=== PATIENT | female | born 1945 | race Caucasian/White ===

== ENCOUNTER → 2017-07-02 16:53 | Outpatient (CLI) | payer MEDICARE, OTHER, SELFPAY ==
[2016-07-05 14:05] VITALS: BMI 27.1
--- NOTE | 2017-07-02 17:00 | CT_ITS ---
STUDY: CT BRAIN WITHOUT CONTRAST REASON FOR EXAM: Female, 72 years old. Fall with head injury RADIATION DOSAGE (If Supplied By Facility): CTDIvol = ( 60.81 ) mGy, DLP = ( 1495.61 ) mGycm TECHNIQUE: Transaxial CT imaging of the brain was performed without administration of intravenous contrast material. Individualized dose optimization techniques were used for this CT. COMPARISON: None. FINDINGS: Normal soft tissue structures. Normal calvarium. There is mild cerebral atrophy with widening of the extra-axial spaces and ventricular dilatation. There are areas of decreased attenuation within the white matter tracts of the supratentorial brain, consistent with microvascular disease changes. Normal basal ganglia and thalami. Normal brainstem. There is mild cerebellar atrophy. There is no intracranial hemorrhage. There are no findings of an acute ischemic infarction. Normal visualized paranasal sinuses. CT/Brain/Head without Contrast IMPRESSION: Chronic involutional changes of the brain. Electronically Signed: Jason Danielle DO at 17:43 EST Tel , Service support ,
== END ==
PROVIDERS: Family Provider Nurse Practitioner; PCP Nurse Practitioner; Visit Provider Internal Medicine Nephrology
DX: R51 Headache (principal)
CPT/HCPCS: 70450

== ENCOUNTER 2017-07-14 08:29 | Inpatient (IN) | payer MEDICARE, OTHER, SELFPAY ==
[2016-07-05 14:05] VITALS: BMI 27.1
[2017-07-14] VITALS (10 sets, daily range): BP systolic 136–192; BP diastolic 72–90; PULSE 67–104; RESP 14–24; TEMP 36.5–36.6; O2SAT 95–99; BMI 31.2; BMI 29.0; BMI 29.1
--- NOTE | 2017-07-14 08:38 | ED.VISSUMM ---
- ER Visit Summary Date of Service: 07/14/17 Chief Complaint: Fall History of Present Illness: The patient is a 72 F presenting after fall. Patient states she was walking into dialysis and slipped in the parking lot. She twisted her ankle. She was unable to get up but the nurses came out and put her in a wheelchair. She completed approximately 45 minutes of dialysis and was unable to tolerate the pain in the right lower extremity. She was then brought to the ED for further evaluation. She denies hitting her head or losing consciousness. Denies other injury. Physical Examination: Vitals are stable. Patient is afebrile. Alert no acute distress. HEENT exam is unremarkable. Neck is nontender Lungs are clear and equal bilaterally. Heart is regular rate and rhythm. Abdomen is soft nontender nondistended. Extremities right ankle and knee diffuse tenderness, painful range of motion. No hip tenderness. Normal distal pulse Skin is warm and dry. Remainder of exam is unremarkable. Emergency Department Course and Treatment: Patient was given morphine, Zofran. Xray of the right ankle and knee show no acute fracture. X-ray of the right foot shows 5th metatarsal fracture. Ortho-Glass splint was applied. CBC shows a white count of 3.8, hemoglobin 10.7, platelets 109. Chemistries show sodium 130, potassium 3.3, BUN 25, creatinine 3.67, glucose 153. She is unable to get around and care for herself at home. Discussed with the hospitalist for admission. Disposition: Admission Impression: 5th metatarsal fracture, inability to ambulate This note was generated with [employer] dictation software. It may contain incorrect words, spelling, and punctuation that were not noted in review of the chart prior to signing ED Disposition - Plan for ED Patient: Chief Complaint: Fall Referrals: Robyn Sharma [Primary Care Provider] -
[2017-07-14] MEDS: Ondansetron 4 MG/2 ML Vial IV (09:12)
--- NOTE | 2017-07-14 09:24 | RAD_ITS ---
STUDY: X-RAY - RIGHT ANKLE REASON FOR EXAM: Female, 72 years old. PAIN S/P FALL. TECHNIQUE: 3 views view(s) of the ankle. COMPARISON: None. FINDINGS: There is osteopenia. Normal medial and lateral malleoli. Normal tibiotalar articulation and ankle mortise. Normal visualized talus and calcaneus. The visualized subtalar, talonavicular, calcaneocuboid and tarsal articulations are normal. There are atherosclerotic calcifications. RAD/Ankle min 3 Views IMPRESSION: No fracture or dislocation. Osteopenia. Electronically Signed: Migel Gilliam MD at 10:02 EST Tel , Service support ,
--- NOTE | 2017-07-14 09:24 | RAD_ITS ---
STUDY: X-RAY - RIGHT FOOT CLINICAL: Female, 72 years old. PAIN S/P FALL. TECHNIQUE: 3 view(s) of the foot. COMPARISON: None. FINDINGS: There is osteopenia. There is a lucency involving the fifth metatarsal 1.4 cm from the base tip. There is degenerative changes of the midfoot. There is fusions and deformity of the metatarsal and distal phalanx. There is atherosclerotic calcifications. RAD/Foot min 3 Views IMPRESSION: Fifth metatarsal fracture Forefoot deformity. Electronically Signed: Migel Gilliam MD at 10:04 EST Tel , Service support ,
--- NOTE | 2017-07-14 09:30 | RAD_ITS ---
STUDY: X-RAY - RIGHT KNEE REASON FOR EXAM: Female, 72 years old. PAIN S/P FALL. TECHNIQUE: 4 view(s) of the knee. COMPARISON: None. FINDINGS: There is a total knee replacement in satisfactory position. There is no evidence of acute fracture or dislocation. There is atherosclerotic vascular calcifications. RAD/Knee 4 or More Views IMPRESSION: No acute fracture or dislocation Electronically Signed: Migel Gilliam MD at 10:05 EST Tel , Service support ,
[2017-07-14 10:42] LABS: Absolute Lymphocyte Count 1.12 X10^3/ul (0.83-4.51); Absolute Neutrophil Count 2.2 X10^3/uL (2.0-7.7); Basophil# 0.04 X10^3/uL; Basophil% 1.1 % (0-1); Eosinophil# 0.11 X10^3/uL; Eosinophils% 2.9 % (0-5); Hematocrit 33.5 % (37-47); Hemoglobin 10.7 g/dl (12.0-15.0); Lymphocyte # 1.12 X10^3/ul (4.0); Lymphocyte % 29.6 % (19-41); Mean Corp Hgb Conc 31.9 g/gl (32-36); Mean Corpuscular Hgb 29.3 pg (27.0-32.0); Mean Corpuscular Volume 91.8 fL (81-99); Mean Platelet Vol. 9.2 fl (6.2-12.0); Monocyte# 0.28 X10^3/uL; Monocyte% 7.4 % (0-10); Neutrophil # 2.24 X10^3/uL (2.7-7.7); Platelet Count 109 K/mm3 (150-450); RBC Distribution Width CV 15.4 % (11.6-14.6); RBC Distribution Width SD 50.1 fl (35.1-43.9); Red Blood Count 3.65 M/mm3 (4.2-5.4); White Blood Count 3.8 K/mm3 (4.4-11.0)
[2017-07-14 10:43] LABS: POSITIVE COUNT NO; POSITIVE DIFFERENTIAL NO; POSITIVE MORPHOLOGY NO
[2017-07-14 10:58] LABS: Anion Gap 9 (5-15); BUN 25 mg/dL (7-18); BUN/Creat Ratio 6.8 RATIO (10-20); Calcium,Total 8.6 mg/dL (8.5-10.1); Chloride 93 mmol/L (98-107); Creatinine, Serum 3.67 mg/dL (0.55-1.02); EST Glomerular Filtration Rate 13 mL/min (>60); Est Glom Filt Rate - Afr Amer 16 mL/min (>60); Glucose 153 mg/dL (74-106); Potassium 3.3 mmol/L (3.5-5.1); Sodium Level 130 mmol/L (136-145)
--- NOTE | 2017-07-14 11:36 | NURSING ---
DR ELIDA SMITH
--- NOTE | 2017-07-14 11:57 | NURSING ---
DR ALVAREZ IN ROOM WITH PATIENT
--- NOTE | 2017-07-14 12:01 | NURSING ---
DR MARRERO IN ER
--- NOTE | 2017-07-14 12:34 | CON.PCM_ITS ---
Problem List (1) Fracture of fifth metatarsal bone of right foot Status: Acute (2) Fall Status: Acute (3) Gait instability Status: Acute (4) Other specified peripheral vascular diseases Status: Chronic Reason for Consult Date of Consultation: 07/14/17 Reason for Consultation: foot and ankle pain History of Present Illness: The patient is a 72 year old F with multiple comorbidities was seen at [facility] for a full she sustained while at dialysis this morning. She tripped over raised piece of the sidewalk. She denies hearing a pop. Her pain is moderate and is aggravated with foot or ankle motion. She also complains of right knee pain s/p fall. She denies other injuries or loss of consciousness. She is unable to bear weight and has been splinted upon arrival to the emergency room. She does not feel safe ambulating with crutches. She already has a walker at home however is not sure how to use this device. She does live with her spouse but he is not able to assist her with ambulation or help at this time due to other conditions. Per chart review, she had a previous fall this past month with hospital workup. Past Medical History Past Medical History (Chronic Problems): Chronic Problems Other specified peripheral vascular diseases (Chronic) Congenital coronary artery anomaly (Chronic) S/P PTCA (percutaneous transluminal coronary angioplasty) (Chronic) Bradycardia (Chronic) CAD (coronary artery disease) (Chronic) Diabetes mellitus, type II (Chronic) Hyperlipidemia (Chronic) Hypothyroidism (Chronic) Anemia in chronic kidney disease (Chronic) Hypertension (Chronic) End stage renal disease on dialysis (Chronic) Allergies lisinopril Allergy (Verified 07/14/17 08:30) Swelling nebivolol HCl [From Bystolic] Adverse Reaction (Verified 07/14/17 08:30) Other BRADYCARDIA Home Medications: Ambulatory Orders Medication Instructions Recorded Aspirin [Aspirin, Baby] 81 mg PO DAILY@0800 02/24/14 Hydralazine HCl 100 mg PO TID 02/24/14 Insulin Lispro Protamin/Lispro See Protocol SQ BID 02/24/14 [Humalog Mix 50-50 Vial] Atorvastatin Calcium [Lipitor] 40 mg PO QHS #30 tablet 03/03/14 Folic Acid/Vitamin B Comp W-C 1 capsule PO DAILYCM #30 capsule 03/03/14 [Nephrocaps, Renaphro] Pantoprazole Sodium [Protonix] 40 mg PO DAILY #30 tablet 03/03/14 Docusate Sodium [Colace] 200 mg PO DAILY PRN PRN 09/08/14 Losartan Potassium [Cozaar] 50 mg PO BID 09/08/14 Promethazine HCl 25 mg PO 4X/DAY PRN PRN 09/08/14 B Complex W-C No.20/Folic Acid 1 mg PO DAILY 04/30/15 [Triphrocaps Softgel] Calcium Acetate [Phoslo Gel Cap] 1,334 mg PO TIDCM 04/30/15 Cholecalciferol (Vitamin D3) 5,000 unit PO MOWEFR 04/30/15 [Vitamin D3] Isosorbide Mononitrate [Imdur] 60 mg PO BID 04/30/15 Oxycodone HCl/Acetaminophen 2 tablet PO Q6H PRN PRN 04/30/15 [Percocet 5-325] Cyclobenzaprine HCl 5 mg PO BID PRN PRN 12/14/15 Insulin Detemir [Levemir FlexPen] 22 units SC QHS 12/14/15 Gabapentin [Neurontin] 100 mg PO BIDCM 12/20/15 Gabapentin [Neurontin] 200 mg PO QHS 12/20/15 Clonidine HCl [Catapres] 0.1 mg PO BID #120 tablet 12/21/15 Clopidogrel Bisulfate [Plavix] 75 mg PO DAILY 07/05/16 Docusate Sodium [Colace] 100 mg PO DAILY #20 capsule 04/06/17 Oxycodone HCl/Acetaminophen 1 tablet PO Q6H PRN PRN #20 tablet 04/06/17 [Percocet 5/325] diltiazem CD 120 mg 120 mg PO QDAY 04/27/17 capsule,extended release 24 hr doxazosin 8 mg tablet 8 mg PO QHS tab 04/27/17 carvedilol 6.25 mg tablet 12.5 mg PO BID tab 05/01/17 Ropinirole HCl [Requip] 0.25 mg PO 07/14/17 Sevelamer Carbonate 800 mg PO 07/14/17 Surgical History: angioplasty, hysterectomy, total knee arthroplasty, - - cardiac stents, AVF Lives: Spouse/ Significant Other Smoking Status: Former smoker Tobacco Use: Non-smoker Alcohol: None Drugs: None - *Family History Maternal History Items: Cancer - uterine, No pertinent history Paternal History Items: Cancer, No pertinent history Sibling History Items: Diabetes Review of Systems Constitutional: Reports: Weakness. Denies: Chills, Fever Cardiovascular: Reports: Claudication. Denies: Chest Pain Respiratory: Denies: Shortness of Breath Gastrointestinal: Denies: Nausea Musculoskeletal: Reports: Foot Pain, Leg Pain Skin: Denies: Skin Changes, Wounds Neurological: Reports: Balance problems, Incoordination Hematologic/ Lymphatic: Reports: Anemia, Easy Bruising Patient Problems: Active and Suspected Problems Fracture of fifth metatarsal bone of right foot (Acute) Fall (Acute) Gait instability (Acute) - Physical Exam General: Alert, Oriented x3, Cooperative HEENT: Atraumatic Extremities: No cyanosis, Capillary Refill Less than 3 Seconds - all digits bilateral foot, No Calf Tenderness - negative matthews bilateral, Diminished Peripheral Pulses - non palpable dp and pt pulses bilateral, Edema - lateral ankle and foot Skin: - - intact. no fracture blister or ecchymosis at fifth metatarsal fractures site Musculoskeletal: Muscle Wasting, - - AROM digits bilateral foot. palpation pain to fifth metatarsal fracture site, dorsal lateral midfoot, and lateral ankle ligaments. There is no pain to medial malleolus or to proximal fibula. no pain with heel compression Neurological: Sensory exam intact to light touch and pain Psych/Mental Status: Normal Affect, Appropriate Vital Signs Temp Pulse Resp BP Pulse Ox 97.7 F L 95 14 170/90 H 99 07/14/17 11:13 07/14/17 12:12 07/14/17 12:12 07/14/17 12:12 07/14/17 12:12 Oxygen Delivery Method Room Air Weight: 85.2 kg Body Mass Index (BMI) 31.2 Laboratory Tests Past 24 Hrs 07/14/17 07/14/17 10:38 10:38 WBC 3.8 L RBC 3.65 L Hgb 10.7 L Hct 33.5 L MCV 91.8 MCH 29.3 MCHC 31.9 L RDW 15.4 H RDW Differential 50.1 H Plt Count 109 L MPV 9.2 Immature Gran % (Auto) 0.000 Neut % (Auto) 59.0 Lymph % (Auto) 29.6 Gregory % (Auto) 7.4 Eos % (Auto) 2.9 Baso % (Auto) 1.1 H Absolute Neuts (auto) 2.2 Absolute Lymphs (auto) 1.12 Total Counted Not Reportable Sodium 130 L Potassium 3.3 L Chloride 93 L Carbon Dioxide 28.0 Anion Gap 9 BUN 25 H Creatinine 3.67 H Estim Creat Clear Calc 12.10 Est GFR (MDRD) Af Amer 16 L Est GFR (MDRD) Non-Af 13 L BUN/Creatinine Ratio 6.8 L Glucose 153 H Calcium 8.6 Assessment/Plan Active and Suspected Problems Fracture of fifth metatarsal bone of right foot (Acute) Fall (Acute) Gait instability (Acute) non displaced proximal diaphysis fifth metatarsal fracture right foot s/p fall and gait instability with continued fall risk peripheral vascular disease ankle sprain foot congenital anomaly with further decreased bone density rule out vitamin D deficiency Deconditioned I reviewed and discussed the case with the patient. Her diagnostic data was reviewed including CBC and BMP. I recommend screening her for a vitamin D deficiency and supplementation if this is low to optimize fracture healing. Her foot (3 views) and ankle (3 views) radiographs were reviewed with a non displaced proximal diaphyseal metaphyseal cortical interruption that appears to be incomplete and without significant gapping. There are no other fractures or dislocations noted. There is some narrowing of the ankle joint and the mortise is still intact. She has a tarsal midfoot and forefoot coalitions consistent with her previously diagnosed congenital anomaly. This is unchanged compared to her previous foot xrays obtained in the outpatient setting. Her vessel calcifications are noted and decreased bone density. Her non invasive vascular studies from 2016 were reviewed with non compressible vessels. She does not have any evidence of critical limb ischemia, and I recommend further lower extremity vascular work up in the outpatient setting. In regards to her new fall and fracture, I recommend conservative treatment of this condition with partial touch down weightbearing in CAM walker boot to right lower extremity with walker assistance. She will be admitted for observation and gait training prior to discharge back home versus rehabilitation placement pending PT/OT sessions. Her history of other recent falls and injuries are noted and are a concern. [facility]. The anticipated healing time and management of fractures and ankle sprains were discussed in detail. I answered her questions. I will continue to follow her while in house. Please do not hesitate to call if you have any questions. Thanks for the consult. Dona Mckeon, [facility] [phone]
--- NOTE | 2017-07-14 12:36 | NURSING ---
[address] 5TH METATARSAL FX
--- NOTE | 2017-07-14 15:41 | PCM.CONS.R ---
Consultation - Renal PCP/ Referring MD: Requesting physician: [] Primary care physician: Robyn Sharma Reason for Consultation:: ESRD hemodialysis Sunday. - History of Present Illness History of Present Illness: The patient is a 72 year old F with ESRD due to diabetes admitted for fall landing on uneven pavement at the dialysis center. She fractured fifth metatarsal on the right foot. Dietary was consulted. She had 45 minutes of IUF with 2 L fluid removed prior to admission. She was unable to stay for her full treatment due to severe pain in her foot. Consulted for hemodialysis. She is set up for her full treatment today. Medications reviewed with nursing staff. She denied any syncope, chest pain, lightheadedness. She has high fluid gains chronically. She has lower extremity edema. - Allergies Allergies: Allergies lisinopril Allergy (Verified 07/14/17 08:30) Swelling nebivolol HCl [From Bystolic] Adverse Reaction (Verified 07/14/17 08:30) Other BRADYCARDIA - Current Medications Current Medications: Current Medications Aspirin (Aspirin, Baby) 81 mg PO DAILY@0800 [facility] Atorvastatin Calcium (Lipitor) 40 mg PO QHS [facility] Calcium Acetate (Phoslo Gel Cap) 1,334 mg PO TIDCM [facility] Carvedilol (Coreg) 12.5 mg PO BID [facility] Clonidine (Catapres) 0.1 mg PO BID [facility] Clopidogrel Bisulfate (Plavix) 75 mg PO DAILY [facility] Cyclobenzaprine HCl (Cyclobenzaprine Hcl) 5 mg PO BID PRN PRN PRN Reason: MUSCLE SPASM Diltiazem HCl (Cardizem Cd) 120 mg PO DAILY [facility] Docusate Sodium (Colace) 100 mg PO DAILY [facility] Doxazosin Mesylate (Cardura) 8 mg PO QHS [facility] Gabapentin (Neurontin) 100 mg PO BIDCM [facility] Gabapentin (Neurontin) 200 mg PO QHS [facility] Heparin Sodium (Porcine) () 5,000 units SC Q8 [facility] Hydralazine HCl (Apresoline) 100 mg PO TID [facility] Insulin Aspart (Novolog Flexpen (Bkc)) 0 units SC ACHS [facility] PRN Reason: Protocol Insulin Aspart (Novolog Flexpen (Bkc)) 10 units SC TIDAC [facility] Insulin Detemir (Levemir (Bkc)) 22 units SC QHS [facility] Isosorbide Mononitrate (Imdur) 60 mg PO BID [facility] Losartan Potassium (Cozaar) 50 mg PO BID [facility] Morphine Sulfate (Morphine) 2 - 4 mg IV Q4H PRN PRN PRN Reason: MOD-SEVERE PAIN (-02/27) Multivit/Ca Carb/B Cmplx/FA/Prenat (Nephrocaps, Renaphro) [facility] Nutritional Formula (Nepro Carb Steady) 120 ml PO 4X/DAY [facility] Ondansetron HCl (Zofran) 4 mg IV Q8H PRN PRN PRN Reason: NAUSEA Oxycodone HCl (Oxyir) 5 - 10 mg PO Q4H PRN PRN PRN Reason: SEVERE PAIN (-02/27) Pantoprazole Sodium (Protonix) 40 mg PO DAILY [facility] Promethazine HCl (Phenergan) 25 mg PO 4X/DAY PRN PRN PRN Reason: NAUSEA - Past Medical History Past Medical History (Chronic Problems): Chronic Problems Other specified peripheral vascular diseases (Chronic) Congenital coronary artery anomaly (Chronic) S/P PTCA (percutaneous transluminal coronary angioplasty) (Chronic) Bradycardia (Chronic) CAD (coronary artery disease) (Chronic) Diabetes mellitus, type II (Chronic) Hyperlipidemia (Chronic) Hypothyroidism (Chronic) Anemia in chronic kidney disease (Chronic) Hypertension (Chronic) End stage renal disease on dialysis (Chronic) - Past Surgical History Surgical History: angioplasty, hysterectomy, total knee arthroplasty, - - cardiac stents, AVF - Social History Smoking Status: Former smoker Alcohol: None Drugs: None - Family History Maternal History Items: Cancer - uterine, No pertinent history Paternal History Items: Cancer, No pertinent history Sibling History Items: Diabetes Review of Systems Constitutional: Denies: Anorexia, Chills, Fever, Weakness, Fatigue Cardiovascular: Reports: Edema. Denies: Chest Pain Respiratory: Denies: Cough Gastrointestinal: Denies: Nausea, Vomiting Musculoskeletal: Reports: Foot Pain - Knee pain on right status post fall fracture fifth metatarsal Neurological: Reports: Balance problems - Tripped on uneven pavement Psychiatric: Reports: Anxiety, Depression Hematologic/ Lymphatic: Reports: Anemia Patient Problems: Active and Suspected Problems Fracture of fifth metatarsal bone of right foot (Acute) Fall (Acute) Gait instability (Acute) - Physical Exam General: Alert, Oriented x3, Cooperative, No apparent distress HEENT: PERRLA, EOMI Oral: Moist Mucosa Neck: Supple Lungs: Clear to auscultation Cardiovascular: Regular rate Abdomen: Bowel Sounds Present, Soft, Non Tender, Non-Distended Extremities: Edema, - - Right foot brace Musculoskeletal: No Muscle Wasting, - - Left upper arm AV fistula Neurological: Cranial nerves II-XII grossly intact Psych/Mental Status: Normal Affect, Alert and oriented to time, place, person, mood and affect Vital Signs Temp Pulse Resp BP Pulse Ox 97.7 F L 95 14 170/90 H 99 07/14/17 11:13 07/14/17 12:12 07/14/17 12:12 07/14/17 12:12 07/14/17 12:12 Oxygen Delivery Method Room Air Weight: 79.152 kg Body Mass Index (BMI) 29.0 Clinical Impression(s) from Imaging Studies Ankle X-Ray 07/14/17 09:24 IMPRESSION: No fracture or dislocation. Osteopenia. Electronically Signed: Migel Gilliam MD at 10:02 EST Tel , Service support , Foot X-Ray 07/14/17 09:24 IMPRESSION: Fifth metatarsal fracture Forefoot deformity. Electronically Signed: Migel Gilliam MD at 10:04 EST Tel , Service support , Knee X-Ray 07/14/17 09:30 IMPRESSION: No acute fracture or dislocation Electronically Signed: Migel Gilliam MD at 10:05 EST Tel , Service support , Assessment/Plan Active and Suspected Problems Fracture of fifth metatarsal bone of right foot (Acute) Fall (Acute) Gait instability (Acute) 1. ESRD hemodialysis today for missed treatment Sunday. Dialysis Sunday chronic scheduled. Initiate hemodialysis now. Had 2L removed over 45 minutes 2. Hypertension reviewed blood pressure medications with nursing staff. 3. Status post mechanical fall with fifth metatarsal fracture. Podiatry consulted. 4. Secondary hyperparathyroidism on binders 5. Hyperphosphatemia patient on Renvela home.
--- NOTE | 2017-07-14 15:47 | CON.PCM_ITS ---
Consultation - Renal PCP/ Referring MD: Requesting physician: [] Primary care physician: Robyn Sharma Reason for Consultation:: ESRD hemodialysis Sunday. - History of Present Illness History of Present Illness: The patient is a 72 year old F with ESRD due to diabetes admitted for fall landing on uneven pavement at the dialysis center. She fractured fifth metatarsal on the right foot. Dietary was consulted. She had 45 minutes of IUF with 2 L fluid removed prior to admission. She was unable to stay for her full treatment due to severe pain in her foot. Consulted for hemodialysis. She is set up for her full treatment today. Medications reviewed with nursing staff. She denied any syncope, chest pain, lightheadedness. She has high fluid gains chronically. She has lower extremity edema. - Allergies Allergies: Allergies lisinopril Allergy (Verified 07/14/17 08:30) Swelling nebivolol HCl [From Bystolic] Adverse Reaction (Verified 07/14/17 08:30) Other BRADYCARDIA - Current Medications Current Medications: Current Medications Aspirin (Aspirin, Baby) 81 mg PO DAILY@0800 [facility] Atorvastatin Calcium (Lipitor) 40 mg PO QHS [facility] Calcium Acetate (Phoslo Gel Cap) 1,334 mg PO TIDCM [facility] Carvedilol (Coreg) 12.5 mg PO BID [facility] Clonidine (Catapres) 0.1 mg PO BID [facility] Clopidogrel Bisulfate (Plavix) 75 mg PO DAILY [facility] Cyclobenzaprine HCl (Cyclobenzaprine Hcl) 5 mg PO BID PRN PRN PRN Reason: MUSCLE SPASM Diltiazem HCl (Cardizem Cd) 120 mg PO DAILY [facility] Docusate Sodium (Colace) 100 mg PO DAILY [facility] Doxazosin Mesylate (Cardura) 8 mg PO QHS [facility] Gabapentin (Neurontin) 100 mg PO BIDCM [facility] Gabapentin (Neurontin) 200 mg PO QHS [facility] Heparin Sodium (Porcine) () 5,000 units SC Q8 [facility] Hydralazine HCl (Apresoline) 100 mg PO TID [facility] Insulin Aspart (Novolog Flexpen (Bkc)) 0 units SC ACHS [facility] PRN Reason: Protocol Insulin Aspart (Novolog Flexpen (Bkc)) 10 units SC TIDAC [facility] Insulin Detemir (Levemir (Bkc)) 22 units SC QHS [facility] Isosorbide Mononitrate (Imdur) 60 mg PO BID [facility] Losartan Potassium (Cozaar) 50 mg PO BID [facility] Morphine Sulfate (Morphine) 2 - 4 mg IV Q4H PRN PRN PRN Reason: MOD-SEVERE PAIN (-02/27) Multivit/Ca Carb/B Cmplx/FA/Prenat (Nephrocaps, [facility]) [facility] Nutritional Formula (Nepro Carb Steady) 120 ml PO 4X/DAY [facility] Ondansetron HCl (Zofran) 4 mg IV Q8H PRN PRN PRN Reason: NAUSEA Oxycodone HCl (Oxyir) 5 - 10 mg PO Q4H PRN PRN PRN Reason: SEVERE PAIN (-02/27) Pantoprazole Sodium (Protonix) 40 mg PO DAILY [facility] Promethazine HCl (Phenergan) 25 mg PO 4X/DAY PRN PRN PRN Reason: NAUSEA - Past Medical History Past Medical History (Chronic Problems): Chronic Problems Other specified peripheral vascular diseases (Chronic) Congenital coronary artery anomaly (Chronic) S/P PTCA (percutaneous transluminal coronary angioplasty) (Chronic) Bradycardia (Chronic) CAD (coronary artery disease) (Chronic) Diabetes mellitus, type II (Chronic) Hyperlipidemia (Chronic) Hypothyroidism (Chronic) Anemia in chronic kidney disease (Chronic) Hypertension (Chronic) End stage renal disease on dialysis (Chronic) - Past Surgical History Surgical History: angioplasty, hysterectomy, total knee arthroplasty, - - cardiac stents, AVF - Social History Smoking Status: Former smoker Alcohol: None Drugs: None - Family History Maternal History Items: Cancer - uterine, No pertinent history Paternal History Items: Cancer, No pertinent history Sibling History Items: Diabetes Review of Systems Constitutional: Denies: Anorexia, Chills, Fever, Weakness, Fatigue Cardiovascular: Reports: Edema. Denies: Chest Pain Respiratory: Denies: Cough Gastrointestinal: Denies: Nausea, Vomiting Musculoskeletal: Reports: Foot Pain - Knee pain on right status post fall fracture fifth metatarsal Neurological: Reports: Balance problems - Tripped on uneven pavement Psychiatric: Reports: Anxiety, Depression Hematologic/ Lymphatic: Reports: Anemia Patient Problems: Active and Suspected Problems Fracture of fifth metatarsal bone of right foot (Acute) Fall (Acute) Gait instability (Acute) - Physical Exam General: Alert, Oriented x3, Cooperative, No apparent distress HEENT: PERRLA, EOMI Oral: Moist Mucosa Neck: Supple Lungs: Clear to auscultation Cardiovascular: Regular rate Abdomen: Bowel Sounds Present, Soft, Non Tender, Non-Distended Extremities: Edema, - - Right foot brace Musculoskeletal: No Muscle Wasting, - - Left upper arm AV fistula Neurological: Cranial nerves II-XII grossly intact Psych/Mental Status: Normal Affect, Alert and oriented to time, place, person, mood and affect Vital Signs Temp Pulse Resp BP Pulse Ox 97.7 F L 95 14 170/90 H 99 07/14/17 11:13 07/14/17 12:12 07/14/17 12:12 07/14/17 12:12 07/14/17 12:12 Oxygen Delivery Method Room Air Weight: 79.152 kg Body Mass Index (BMI) 29.0 Clinical Impression(s) from Imaging Studies Ankle X-Ray 07/14/17 09:24 IMPRESSION: No fracture or dislocation. Osteopenia. Electronically Signed: Migel Gilliam MD at 10:02 EST Tel , Service support , Foot X-Ray 07/14/17 09:24 IMPRESSION: Fifth metatarsal fracture Forefoot deformity. Electronically Signed: Migel Gilliam MD at 10:04 EST Tel , Service support , Knee X-Ray 07/14/17 09:30 IMPRESSION: No acute fracture or dislocation Electronically Signed: Migel Gilliam MD at 10:05 EST Tel , Service support , Assessment/Plan Active and Suspected Problems Fracture of fifth metatarsal bone of right foot (Acute) Fall (Acute) Gait instability (Acute) 1. ESRD hemodialysis today for missed treatment Sunday. Dialysis Sunday chronic scheduled. Initiate hemodialysis now. Had 2L removed over 45 minutes 2. Hypertension reviewed blood pressure medications with nursing staff. 3. Status post mechanical fall with fifth metatarsal fracture. Podiatry consulted. 4. Secondary hyperparathyroidism on binders 5. Hyperphosphatemia patient on [facility] home.
[2017-07-14 15:51] LABS: Bedside Glucose 132 mg/dL (70-110)
--- NOTE | 2017-07-14 16:27 | HP.PCM_ITS ---
Problem List (1) Pain in right ankle and joints of right foot Status: Acute History of Present Illness Date of Admission: 07/14/17 Chief Complaint: Right ankle and foot pain The patient is a 72 year old F was seen in the emergency room at [facility] for evaluation of right ankle and foot pain which occurred after she fell at dialysis today. Patient tried to go through dialysis but was only able to tolerate 45 minutes of dialysis due to her right ankle and foot pain. Evaluation in the emergency room included x-rays which showed a right fifth metatarsal fracture at its base which is nondisplaced her foot x-ray, patient's right knee x-ray was unremarkable, patient's right ankle x-ray showed osteopenia. Labs were obtained which showed a sodium of 130, potassium 3.3, creatinine 3.67, BUN of 25, glucose 153, and hemoglobin 10.7. Posterior splint was applied to the right lower leg, patient was unable to ambulate however and was still having significant pain even after administration of narcotics. On examination, patient's right ankle was not swollen but was tender to palpation, patient had tenderness over the lateral aspect of the right foot. Due to the fact the patient felt uncomfortable going home and was not able to ambulate, patient will be placed in observation status on [facility] 2, she will be seen by nephrology, she was seen by from podiatry in the emergency room and evaluated, Dr. Mckeon he did not feel the patient required surgery. Past Medical History Past Medical History (Chronic Problems): Chronic Problems Other specified peripheral vascular diseases (Chronic) Congenital coronary artery anomaly (Chronic) S/P PTCA (percutaneous transluminal coronary angioplasty) (Chronic) Bradycardia (Chronic) CAD (coronary artery disease) (Chronic) Diabetes mellitus, type II (Chronic) Hyperlipidemia (Chronic) Hypothyroidism (Chronic) Anemia in chronic kidney disease (Chronic) Hypertension (Chronic) End stage renal disease on dialysis (Chronic) Allergies lisinopril Allergy (Verified 07/14/17 08:30) Swelling nebivolol HCl [From Bystolic] Adverse Reaction (Verified 07/14/17 08:30) Other BRADYCARDIA Home Medications: Ambulatory Orders Medication Instructions Recorded Aspirin [Aspirin, Baby] 81 mg PO DAILY@0800 02/24/14 Hydralazine HCl 100 mg PO TID 02/24/14 Insulin Lispro Protamin/Lispro See Protocol SQ BID 10/07/14 [Humalog Mix 50-50 Vial] Atorvastatin Calcium [Lipitor] 40 mg PO QHS #30 tablet 03/03/14 Folic Acid/Vitamin B Comp W-C 1 capsule PO DAILYCM #30 capsule 03/03/14 [Nephrocaps, Renaphro] Pantoprazole Sodium [Protonix] 40 mg PO DAILY #30 tablet 03/03/14 Docusate Sodium [Colace] 200 mg PO DAILY PRN PRN 09/08/14 Losartan Potassium [Cozaar] 50 mg PO BID 09/08/14 Promethazine HCl 25 mg PO 4X/DAY PRN PRN 09/08/14 B Complex W-C No.20/Folic Acid 1 mg PO DAILY 04/30/15 [Triphrocaps Softgel] Cholecalciferol (Vitamin D3) 5,000 unit PO MOWEFR 04/30/15 [Vitamin D3] Isosorbide Mononitrate [Imdur] 60 mg PO BID 04/30/15 Oxycodone HCl/Acetaminophen 2 tablet PO Q6H PRN PRN 04/30/15 [Percocet 5-325] Cyclobenzaprine HCl 5 mg PO BID PRN PRN 12/14/15 Insulin Detemir [Levemir FlexPen] 22 units SC QHS 12/14/15 Gabapentin [Neurontin] 100 mg PO BIDCM 12/20/15 Gabapentin [Neurontin] 200 mg PO QHS 12/20/15 Clopidogrel Bisulfate [Plavix] 75 mg PO DAILY 07/05/16 Oxycodone HCl/Acetaminophen 1 tablet PO Q6H PRN PRN #20 tablet 04/06/17 [Percocet 5/325] doxazosin 8 mg tablet 8 mg PO QHS tab 04/27/17 carvedilol 6.25 mg tablet 12.5 mg PO BID tab 05/01/17 Clonidine HCl [Clonidine HCl] 0.1 mg PO TID 07/14/17 Diltiazem HCl [Cartia Xt] 120 mg PO DAILY 07/14/17 Ropinirole HCl [Requip] 0.25 mg PO QHS 07/14/17 Sevelamer Carbonate 800 mg PO TIDCM 07/14/17 Surgical History: angioplasty, hysterectomy, total knee arthroplasty, - - cardiac stents, AVF Psychiatric History: No pertinent psych hx [employer]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[employer] History: No pertinent [employer] history Lives: Spouse/ Significant Other Smoking Status: Former smoker Tobacco Use: Non-smoker Alcohol: None Drugs: None - *Family History Maternal History Items: Cancer - uterine, No pertinent history Paternal History Items: Cancer, No pertinent history Sibling History Items: Diabetes Review of Systems Constitutional: Denies: Anorexia, Chills, Fever, Night Sweats, Malaise, Weakness , Weight Change, Fatigue Eyes: Denies: Blurred vision, Cataracts, Conjunctivae Inflammation, Double vision, Drainage HEENT: Denies: Difficulty Swallowing, Dysphasia, Ear Pain, Eye Pain, Hearing Changes, Nasal bleeding, Nasal Congestion, Post Nasal Drip Cardiovascular: Denies: Chest Pain, Claudication, Chest Pressure, Chest Tightness, Edema, Heaviness, Light Headedness, Orthopnea, Palpitations Respiratory: Denies: Cough, Hemoptysis, Pleuritic Pain, Shortness of Breath, Shortness of breath at rest, Shortness of breath upon exertion, Sputum production Gastrointestinal: Denies: Abdominal Pain, Constipation, Diarrhea, Hematemesis, Hematochezia, Nausea, Melena, Vomiting Genitourinary: Denies: Dysuria, Frequency, Hematuria, Hesitancy, Urgency Gynecological: Denies: Breast symptoms Musculoskeletal: Reports: Foot Pain - right foot, Joint Pain - ankle, knee, Joint Tenderness - ankle. Denies: Joint stiffness, Joint swelling Skin: Denies: Dryness, Pruritis, Rash Neurological: Denies: Blurred vision, Double vision, Slurred speech, Difficulty swallowing, Focal weakness, Headaches, Incoordination, Numbness, Tingling Psychiatric: Denies: Anxiety, Depression, Homicidal Ideations, Suicidal Ideations Endocrine: Denies: Change in Body Habitus, Heat/ Cold Intolerance, Polydipsia, Polyuria Hematologic/ Lymphatic: Denies: Adenopathy, Anemia, Easy Bruising, Easy Bleeding , Petechiae, Purpura VTE Information - Inpt Only VTE Present on Admission: No VTE Mechan Device Prophylaxis: None VTE Pharm Prophylaxis ordered?: Yes Patient Problems: Active and Suspected Problems Fracture of fifth metatarsal bone of right foot (Acute) Fall (Acute) Gait instability (Acute) Pain in right ankle and joints of right foot (Acute) - Physical Exam General: Alert, Oriented x3, Cooperative HEENT: Atraumatic, PERRLA, EOMI, Normocephalic Oral: Moist Mucosa Neck: Supple, No JVD, Negative Carotid Bruits, No Nuchal Rigidity, Trachea Midline, Thyroid Normal Size and Texture Lungs: Clear to auscultation, Normal air movement, No rhonchi, No wheeze, No rales Cardiovascular: Regular rate, Regular Rhythm, Normal S1, Normal S2, No murmurs, No Ectopic Activity, PMI Normal, No rub noted, No Gallop Abdomen: Bowel Sounds Present, Soft, Non Tender, Non-Distended, No hernias noted Extremities: No clubbing, No cyanosis, No edema, Capillary Refill Less than 3 Seconds Skin: No rashes, No breakdown Musculoskeletal: Tenderness - Tenderness to palpation over the lateral aspect of the patient's right foot and ankle Neurological: Cranial nerves II-XII grossly intact, Neuro grossly intact, Sensory exam intact to light touch and pain, Coordination normal Psych/Mental Status: Normal Affect, Appropriate, Alert and oriented to time, place, person, mood and affect Vital Signs Temp Pulse Resp BP Pulse Ox 97.7 F L 77 14 136/78 H 99 07/14/17 11:13 07/14/17 15:43 07/14/17 12:12 07/14/17 15:43 07/14/17 12:12 Oxygen Delivery Method Room Air Weight: 79.152 kg Body Mass Index (BMI) 29.0 Laboratory Tests Past 24 Hrs 07/14/17 16:20 Vitamin D 25-Hydroxy Pending POC Glucose 07/14/17 14:40 POC Glucose 132 H Assessment/Plan Active and Suspected Problems Fracture of fifth metatarsal bone of right foot (Acute) Fall (Acute) Gait instability (Acute) Pain in right ankle and joints of right foot (Acute) #1 acute fracture of the right fifth metatarsal bone-nondisplaced, secondary to osteoporosis-patient will be placed into observation status on [facility] to, she will be seen by physical therapy, a walking boot will be applied, pain medications will be administered. Patient states that she cannot count on her to help her at home because his medical condition is worse than her medical condition. #2 end-stage renal disease-patient will have to be seen by nephrology and undergo dialysis today #3 osteoporosis #4 type 2 diabetes-patient listed 50-50 insulin as well as Levemir insulin on her home med list but she is actually not using 50-50 insulin. She states that one time she was on this, patient will have her insulin adjusted while she is in the hospital. Patient's blood sugar will be monitored and she will be given sliding scale insulin as needed Code Visit OBSV E&M: 58758 Initial observation care L3
[2017-07-14] MEDS: oxyCODONE 5 MG Tablet PO ×2 (16:46→22:37)
[2017-07-14] MEDS: Calcium Acetate 667 MG Capsule 1334 MG PO (17:53)
[2017-07-14] MEDS: Gabapentin 100 MG Capsule PO (17:53)
--- NOTE | 2017-07-14 20:44 | DIALYSIS ---
pT RAN 3.25 HR; 3251; 5000 REMOVED; STABLE/TOLERATED WELL; SPBS 140S-180S. NEXT TX POSS AT [facility] [place] [place] 07/16/17 IF IN HOSPITAL. NEEDLES REMOVED; HEMOSTASIS ACHIEVED; DSD APPLIED.
[2017-07-14] MEDS: Doxazosin 4 MG Tablet 8 MG PO (22:37)
[2017-07-14] MEDS: Isosorbide Mononitrate 60 MG Tablet PO (22:37)
[2017-07-14] MEDS: Carvedilol 12.5 MG Tablet PO (22:37)
[2017-07-14] MEDS: Losartan Potassium 50 MG Tablet PO (22:37)
[2017-07-14] MEDS: Gabapentin 100 MG Capsule 200 MG PO (22:37)
[2017-07-14] MEDS: Atorvastatin Calcium 40 MG Tablet PO (22:37)
[2017-07-14] MEDS: cloNIDine HCl 0.1 MG Tablet PO (22:37)
[2017-07-14] MEDS: Heparin Injection 5,000 UNITS/ML Syringe 5000 UNITS SC (22:38)
[2017-07-14 22:46] LABS: Bedside Glucose 79 mg/dL (70-110)
[2017-07-15] VITALS (10 sets, daily range): BP systolic 91–149; BP diastolic 37–84; PULSE 58–74; RESP 14–16; TEMP 36.8–37.2; O2SAT 86–96
[2017-07-15] MEDS: oxyCODONE 5 MG Tablet PO ×3 (04:08→12:47)
[2017-07-15] MEDS: Heparin Injection 5,000 UNITS/ML Syringe 5000 UNITS SC ×3 (06:43→22:39)
[2017-07-15] MEDS: CYCLOBENZAPRINE HCL 5 MG TABLET PO (06:43)
[2017-07-15 08:46] LABS: Bedside Glucose 166 mg/dL (70-110)
[2017-07-15] MEDS: Gabapentin 100 MG Capsule PO ×2 (09:18→17:45)
[2017-07-15] MEDS: Folic Acid/Vitamin B Comp W-C 1 Capsule 1 CAP PO (09:19)
[2017-07-15] MEDS: Docusate Sodium 100 MG Capsule PO (09:19)
[2017-07-15] MEDS: Aspirin 81 MG TAB.CHEW PO (09:19)
[2017-07-15] MEDS: Calcium Acetate 667 MG Capsule 1334 MG PO ×3 (09:19→17:44)
[2017-07-15] MEDS: Isosorbide Mononitrate 60 MG Tablet PO (09:20)
[2017-07-15] MEDS: Pantoprazole Sodium 40 MG Tablet PO (09:20)
[2017-07-15] MEDS: Clopidogrel Bisulfate 75 MG Tablet PO (09:20)
[2017-07-15] MEDS: Losartan Potassium 50 MG Tablet PO (10:49)
[2017-07-15] MEDS: Carvedilol 12.5 MG Tablet PO (10:49)
[2017-07-15] MEDS: cloNIDine HCl 0.1 MG Tablet PO (10:49)
[2017-07-15 12:41] LABS: Bedside Glucose 68 mg/dL (70-110)
[2017-07-15 12:41] LABS: Bedside Glucose 63 mg/dL (70-110)
--- NOTE | 2017-07-15 14:52 | PCM.PROGNOTE ---
Patient Problems: Active and Suspected Problems Fracture of fifth metatarsal bone of right foot (Acute) Fall (Acute) Gait instability (Acute) Pain in right ankle and joints of right foot (Acute) Subjective: Patient was seen and examined today, she has had low blood pressures at times today, she continues to complain of pain in her foot. Briefly talk with her today. - Physical Exam General: Alert, Oriented x3, Cooperative, Well developed, Well nourished HEENT: Atraumatic, PERRLA, EOMI, Normocephalic Oral: Moist Mucosa Neck: Supple, No JVD, Negative Carotid Bruits, No Nuchal Rigidity, Trachea Midline, Thyroid Normal Size and Texture Lungs: Clear to auscultation, Normal air movement, No rhonchi, No wheeze, No rales Cardiovascular: Regular rate, Regular Rhythm, Normal S1, Normal S2, No murmurs, No Ectopic Activity, PMI Normal, No rub noted Abdomen: Bowel Sounds Present, Soft, Non Tender, Non-Distended, No hernias noted Extremities: Capillary Refill Less than 3 Seconds, Edema - generalized edema noted of the right foot chiefly on the lateral aspect of the right foot along with ecchymosis in the area Skin: No rashes, No breakdown Musculoskeletal: Tenderness - Right foot is tender to palpation over the lateral aspect Neurological: Cranial nerves II-XII grossly intact, Neuro grossly intact, Sensory exam intact to light touch and pain, Coordination normal Psych/Mental Status: Normal Affect, Appropriate, Alert and oriented to time, place, person, mood and affect Vital Signs Temp Pulse Resp BP Pulse Ox 98.9 F 58 L 16 91/39 L 96 07/15/17 14:35 07/15/17 14:35 07/15/17 14:35 07/15/17 14:35 07/15/17 14:35 Oxygen Flow Rate 2 Oxygen Delivery Method Nasal Cannula Weight: 72.8 kg Body Mass Index (BMI) 29.0 Intake and Output for Last 24 Hours 07/13/17 07/14/17 07/15/17 23:59 23:59 23:59 Intake Total 150 / 150 610 / 610 Output Total 5000 / 5000 400 / 400 Balance -4850 / -4850 210 / 210 Laboratory Tests Past 24 Hrs 07/14/17 16:20 Vitamin D 25-Hydroxy Pending POC Glucose 07/15/17 07/15/1718 12:37 12:15 07:57 POC Glucose 68 L 63 L 166 H 07/14/17 07/14/17 22:31 14:40 POC Glucose 79 132 H Assessment/Plan Active and Suspected Problems Fracture of fifth metatarsal bone of right foot (Acute) Fall (Acute) Gait instability (Acute) Pain in right ankle and joints of right foot (Acute) #1 acute fracture of the right fifth metatarsal bone-nondisplaced, secondary to osteoporosis-she will be made a full admission due to the fact that she will not be discharged today, PT and OT will continue, pain medications will continue to be administered-I took the patient off IV morphine and placed her on a higher dose of OxyIR. #2 end-stage renal disease-patient will have to be seen by nephrology and undergo dialysis again Sunday #3 osteoporosis #4 type 2 diabetes-she had a low blood sugar today, I will readjust her insulin and review her doses Summary 72-year-old patient sustained a fracture of her right foot yesterday while at dialysis, she is very debilitated with this fracture, he is unable to take care of herself at home and her 's unable to take care of her also, patient was made an admission today she will continue with physical therapy and occupational therapy, group home facility placement will need to be carried out this week Code Visit Inpatient E&M: 31871 Subs Hosp L2
[2017-07-15 17:21] LABS: Bedside Glucose 118 mg/dL (70-110)
--- NOTE | 2017-07-15 18:23 | NURSING ---
sister Eva requests that we call her with any change to patient status. [phone]
--- NOTE | 2017-07-15 22:03 | NURSING ---
Glucometer would not read pt's wristband. FSBS 106
[2017-07-15 22:16] LABS: Bedside Glucose 106 mg/dL (70-110)
[2017-07-15] MEDS: Gabapentin 100 MG Capsule 200 MG PO (22:39)
[2017-07-15] MEDS: Atorvastatin Calcium 40 MG Tablet PO (22:39)
[2017-07-16] VITALS (11 sets, daily range): BP systolic 101–158; BP diastolic 32–74; PULSE 62–90; RESP 16–18; TEMP 36.6–37.3; O2SAT 94–97
[2017-07-16] MEDS: Heparin Injection 5,000 UNITS/ML Syringe 5000 UNITS SC ×3 (05:45→22:42)
[2017-07-16] MEDS: Pantoprazole Sodium 40 MG Tablet PO (07:48)
[2017-07-16] MEDS: Folic Acid/Vitamin B Comp W-C 1 Capsule 1 CAP PO (07:48)
[2017-07-16] MEDS: Calcium Acetate 667 MG Capsule 1334 MG PO ×3 (07:48→17:56)
[2017-07-16] MEDS: Clopidogrel Bisulfate 75 MG Tablet PO (07:48)
[2017-07-16] MEDS: Gabapentin 100 MG Capsule PO ×2 (07:48→17:56)
[2017-07-16] MEDS: Docusate Sodium 100 MG Capsule PO (07:48)
[2017-07-16] MEDS: Isosorbide Mononitrate 60 MG Tablet PO ×2 (07:49→22:37)
[2017-07-16] MEDS: Aspirin 81 MG TAB.CHEW PO (07:49)
[2017-07-16] MEDS: oxyCODONE 5 MG Tablet PO ×3 (07:51→17:59)
[2017-07-16 07:56] LABS: Bedside Glucose 115 mg/dL (70-110)
[2017-07-16 08:47] LABS: Vitamin D,25 Hydroxy 46.4 ng/mL (19.95-100.01)
[2017-07-16 11:05] LABS: Absolute Neutrophil Count 2.9 X10^3/uL (2.0-7.7); Basophil# 0.04 X10^3/uL; Basophil% 0.8 % (0-1); Eosinophil# 0.15 X10^3/uL; Eosinophils% 3.2 % (0-5); Hematocrit 30.9 % (37-47); Hemoglobin 9.6 g/dl (12.0-15.0); Lymphocyte % 25.2 % (19-41); Mean Corp Hgb Conc 31.1 g/gl (32-36); Mean Corpuscular Hgb 29.3 pg (27.0-32.0); Mean Corpuscular Volume 94.2 fL (81-99); Monocyte# 0.45 X10^3/uL; Monocyte% 9.5 % (0-10); Neutrophil # 2.91 X10^3/uL (2.7-7.7); Neutrophil % 61.1 % (47-70); Platelet Count 114 K/mm3 (150-450); RBC Distribution Width CV 15.5 % (11.6-14.6); RBC Distribution Width SD 51.1 fl (35.1-43.9); Red Blood Count 3.28 M/mm3 (4.2-5.4); White Blood Count 4.8 K/mm3 (4.4-11.0)
[2017-07-16 11:06] LABS: POSITIVE COUNT NO; POSITIVE DIFFERENTIAL NO; POSITIVE MORPHOLOGY NO
--- NOTE | 2017-07-16 11:23 | PCM.PN.HOSP ---
Patient Problems: Active and Suspected Problems Fracture of fifth metatarsal bone of right foot (Acute) Fall (Acute) Gait instability (Acute) Pain in right ankle and joints of right foot (Acute) Subjective: Patient is a 72 year old lady admitted following a fall while is undergoing dialysis she apparently tripped. Imaging studies demonstrated acute fracture involving the right fifth metatarsal bone nondisplaced admitted to regular nursing floor for pain management Objective: GENERAL: cooperative HEENT: Clear conjunctiva, NECK; supple, normal thyroid, CHEST: Clear to auscultation bilaterally, HEART: Regular S1 S2, ABDOMEN: soft, non-tender, normoactive bowel sounds, RECTAL: deferred EXTREMITIES: No edema, no clubbing, no cyanosis. HEMODIALYSIS TECHNICIAN: Awake, no lateralizing signs. SKIN: No rash Vitals/I&O's: Vital Signs Temp Pulse Resp BP Pulse Ox 98.8 F 62 18 102/48 L 94 07/16/17 07:42 07/16/17 07:58 07/16/17 07:42 07/16/17 07:42 07/16/17 09:17 Oxygen Flow Rate 2 Oxygen Delivery Method Nasal Cannula Weight: 74.4 kg Intake and Output for Last 24 Hours 07/14/17 07/15/17 07/16/17 23:59 23:59 23:59 Intake Total 240 / 850 290 / 290 Balance 240 / 450 290 / 290 Laboratory Results 07/15/17 16:56: POC Glucose 118 H 07/15/17 22:02: POC Glucose 106 07/16/17 07:39: POC Glucose 115 H 07/16/17 10:40: WBC 4.8, RBC 3.28 L, Hgb 9.6 L, Hct 30.9 L, MCV 94.2, MCH 29.3, MCHC 31.1 L, RDW 15.5 H, RDW Differential 51.1 H, Plt Count 114 L, MPV 10.0, Immature Gran % (Auto) 0.200, Neut % (Auto) 61.1, Lymph % (Auto) 25.2, [place] % (Auto) 9.5, Eos % (Auto) 3.2, Baso % (Auto) 0.8, Absolute Neuts (auto) 2.9, Absolute Lymphs (auto) 1.20, Total Counted Not Reportable 07/16/17 10:40: Sodium Pending, Potassium Pending, Chloride Pending, Carbon Dioxide Pending, Anion Gap Pending, BUN Pending, Creatinine Pending, Est GFR (MDRD) Af Amer Pending, Est GFR (MDRD) Non-Af Pending, BUN/Creatinine Ratio Pending, Glucose Pending, Calcium Pending Current Medications Aspirin (Aspirin, Baby) 81 mg PO DAILY@0800 [facility] Last Admin: 07/16/17 07:49 Dose: 81 mg Atorvastatin Calcium (Lipitor) 40 mg PO QHS [facility] Last Admin: 07/15/17 22:39 Dose: 40 mg Calcium Acetate (Phoslo Gel Cap) 1,334 mg PO TIDCM [facility] Last Admin: 07/16/17 07:48 Dose: 1,334 mg Carvedilol (Coreg) 12.5 mg PO BID [facility] Last Admin: 07/16/17 07:45 Dose: Not Given Clonidine (Catapres) 0.1 mg PO BID [facility] Last Admin: 07/16/17 07:45 Dose: Not Given Clopidogrel Bisulfate (Plavix) 75 mg PO DAILY [facility] Last Admin: 07/16/17 07:48 Dose: 75 mg Cyclobenzaprine HCl (Cyclobenzaprine Hcl) 5 mg PO BID PRN PRN PRN Reason: MUSCLE SPASM Last Admin: 07/15/17 06:43 Dose: 5 mg Diltiazem HCl (Cardizem Cd) 120 mg PO DAILY [facility] Last Admin: 07/16/17 07:49 Dose: Not Given Docusate Sodium (Colace) 100 mg PO DAILY [facility] Last Admin: 07/16/17 07:48 Dose: 100 mg Doxazosin Mesylate (Cardura) 8 mg PO QHS [facility] Last Admin: 07/15/17 22:33 Dose: Not Given Gabapentin (Neurontin) 100 mg PO BIDCM [facility] Last Admin: 07/16/17 07:48 Dose: 100 mg Gabapentin (Neurontin) 200 mg PO QHS [facility] Last Admin: 07/15/17 22:39 Dose: 200 mg Heparin Sodium (Porcine) () 5,000 units SC Q8 [facility] Last Admin: 07/16/17 05:45 Dose: 5,000 units Hydralazine HCl (Apresoline) 100 mg PO TID [facility] Last Admin: 07/16/17 05:41 Dose: Not Given Insulin Aspart (Novolog Flexpen (Bkc)) 0 units SC ACHS [facility] PRN Reason: Protocol Last Admin: 07/16/17 07:44 Dose: Not Given Insulin Aspart (Novolog Flexpen ([facility])) 10 units SC TIDAC [facility] Last Admin: 07/16/17 07:52 Dose: 10 units Insulin Detemir (Levemir ([facility])) 18 units SC QHS [facility] Last Admin: 07/15/17 22:34 Dose: Not Given Isosorbide Mononitrate (Imdur) 60 mg PO BID [facility] Last Admin: 07/16/17 07:49 Dose: 60 mg Losartan Potassium (Cozaar) 50 mg PO BID [facility] Last Admin: 07/16/17 07:45 Dose: Not Given Multivit/Ca Carb/B Cmplx/FA/Prenat (Nephrocaps, Ren[facility]ro) [facility] Last Admin: 07/16/17 07:48 Dose: 1 capsule Nutritional Formula (Nepro Carb Steady) 120 ml PO 4X/DAY [facility] Last Admin: 07/16/17 11:06 Dose: Not Given Ondansetron HCl (Zofran) 4 mg IV Q8H PRN PRN PRN Reason: NAUSEA Oxycodone HCl (Oxyir) 10 - 15 mg PO Q4H PRN PRN PRN Reason: SEVERE PAIN (6-10/10) Last Admin: 07/16/17 07:51 Dose: 10 mg Pantoprazole Sodium (Protonix) 40 mg PO DAILY [facility] Last Admin: 07/16/17 07:48 Dose: 40 mg Promethazine HCl (Phenergan) 25 mg PO 4X/DAY PRN PRN PRN Reason: NAUSEA Sodium Chloride () 5 - 30 ml IV UD PRN PRN Reason: SALINE FLUSH Assessment/Plan Active and Suspected Problems Fracture of fifth metatarsal bone of right foot (Acute) Fall (Acute) Gait instability (Acute) Pain in right ankle and joints of right foot (Acute) Patient is a 72 year old lady admitted following a fall while is undergoing dialysis she apparently tripped. Imaging studies demonstrated acute fracture involving the right fifth metatarsal bone nondisplaced admitted to regular nursing floor for pain management 1. Nondisplaced fracture involving the right fifth metatarsal bone secondary to a fall and worsened by patient's underlying osteoporosis admitted to regular nursing floor for pain management seen in consultation by podiatry also requested for PT and OT evaluation and social worker psychiatric to assist with discharge planning 2. End-stage renal disease patient is on hemodialysis consultation placed to nephrology for dialysis orders 3. Osteoporosis 4. Diabetes mellitus type 2 with complications including end-stage renal disease. Patient is on insulin did continue with home regimen also placed on Accu-Cheks before meals and at bedtime and cover with sliding scale insulin 5. Paroxysmal A. fib in sinus rhythm 6. CAD status post pains patient is on recommended medications 7. Hypothyroidism-patient is on levothyroxine home dose continued 8. Hypertension-blood pressure controlled, home medications continued with dose adjustment as needed 9. Dyslipidemia-patient is on statin therapy, continued at home dose 10. DVT prophylaxis~heparin Code Visit Inpatient E&M: 87257 [facility] L3
[2017-07-16] MEDS: Nepro Liquid 120 ML LIQUID PO ×4 (11:27→22:45)
[2017-07-16] MEDS: 0.9% NaCl Peripheral Flush Adult/Peds IV (11:29)
[2017-07-16 11:35] LABS: Anion Gap 9 (5-15); BUN 29 mg/dL (7-18); BUN/Creat Ratio 6.1 RATIO (10-20); Calcium,Total 8.1 mg/dL (8.5-10.1); Chloride 95 mmol/L (98-107); Creatinine, Serum 4.74 mg/dL (0.55-1.02); EST Glomerular Filtration Rate 10 mL/min (>60); Est Glom Filt Rate - Afr Amer 12 mL/min (>60); Estimated Creatinine Clearance 8.99 ml/min; Glucose 85 mg/dL (74-106); Potassium 3.6 mmol/L (3.5-5.1); Sodium Level 131 mmol/L (136-145)
[2017-07-16 11:41] LABS: Bedside Glucose 96 mg/dL (70-110)
--- NOTE | 2017-07-16 12:22 | CASEMGMT ---
Addendum entered by Carmela Rowell 07/16/17 14:06: [facility] SW let CM know, she will let pt know as SW is off the floor. MANDY Roman, FRACTIONATING STILL OPERATOR Original Note: Addendum entered by Carmela Rowell 07/16/17 13:08: SW spoke w/pt and again. [facility] choice [facility], second choice is [facility]. SW called [facility], she states they have beds. SW faxed referral, she is to let this SW know if they can take pt. SW let her know that if needed pt's can transport her to and from dialysis. It is anticipated pt will be here until Sunday. SW will continue to follow. MANDY Roman, FRACTIONATING STILL OPERATOR Original Note: See assessment. SW spoke w/pt and in room. Prior to this, pt was very independent, used no DME, drove self to dialysis. Pt does feel she needs to go somewhere for rehab. She would like TCU, SW explained that unfortunately, TCU and rehab cannot take her due to the dialysis. SW gave pt list of other SNF's in the area. She is going to review and let SW know where she would like a referral sent. Pt states she feels she would be able to transfer from car to wheelchair and wheelchair to dialysis seat, and her could drive her back and forth. SW will see pt again later this afternoon to check on where she would like a referral sent. MANDY Roman, FRACTIONATING STILL OPERATOR
--- NOTE | 2017-07-16 14:09 | PCM.PN.REN ---
Patient Problems: Active and Suspected Problems Fracture of fifth metatarsal bone of right foot (Acute) Fall (Acute) Gait instability (Acute) Pain in right ankle and joints of right foot (Acute) Subjective: complains of pain in right knee and foot. Seen at start of dialysis. 1.6kg over TW. - Physical Exam General: Alert, Oriented x3, - - moderate discomfort Neck: Supple Lungs: Clear to auscultation Cardiovascular: Regular rate Abdomen: Soft Extremities: No edema Musculoskeletal: - - tender, swollen rt knee, no ecchymosis Psych/Mental Status: Normal Affect, Alert and oriented to time, place, person, mood and affect Vital Signs Temp Pulse Resp BP Pulse Ox 97.8 F 80 18 147/60 H 97 07/16/17 12:49 07/16/17 12:57 07/16/17 12:49 07/16/17 12:49 07/16/17 12:49 Oxygen Flow Rate 1 Oxygen Delivery Method Nasal Cannula Weight: 74.4 kg Intake and Output for Last 24 Hours 07/14/17 07/15/17 07/16/17 23:59 23:59 23:59 Intake Total 240 / 850 690 / 690 Balance 240 / 450 690 / 690 Laboratory Tests Past 24 Hrs 07/16/17 07/16/17 10:40 10:40 WBC 4.8 RBC 3.28 L Hgb 9.6 L Hct 30.9 L MCV 94.2 MCH 29.3 MCHC 31.1 L RDW 15.5 H RDW Differential 51.1 H Plt Count 114 L MPV 10.0 Immature Gran % (Auto) 0.200 Neut % (Auto) 61.1 Lymph % (Auto) 25.2 [place] % (Auto) 9.5 Eos % (Auto) 3.2 Baso % (Auto) 0.8 Absolute Neuts (auto) 2.9 Absolute Lymphs (auto) 1.20 Total Counted Not Reportable Sodium 131 L Potassium 3.6 Chloride 95 L Carbon Dioxide 27.0 Anion Gap 9 BUN 29 H Creatinine 4.74 H Estim Creat Clear Calc 8.99 Est GFR (MDRD) Af Amer 12 L Est GFR (MDRD) Non-Af 10 L BUN/Creatinine Ratio 6.1 L Glucose 85 Calcium 8.1 L POC Glucose 07/16/17 07/16/17 07/15/17 11:25 07:39 22:02 POC Glucose 96 115 H 106 07/15/17 16:56 POC Glucose 118 H Assessment/Plan Active and Suspected Problems Fracture of fifth metatarsal bone of right foot (Acute) Fall (Acute) Gait instability (Acute) Pain in right ankle and joints of right foot (Acute) 1. ESRD hemodialysis today and Sunday chronic schedule. 2. Hypertension reviewed blood pressure medications with nursing staff. 3. Status post mechanical fall with fifth metatarsal fracture, rt knee pain/effusion? 4. Secondary hyperparathyroidism on binders 5. Hyperphosphatemia patient on [facility] home.
--- NOTE | 2017-07-16 14:14 | DIALYSIS ---
Hep B sag (negative) 06/18/2017. Result from [facility]. Hard copy in patient's chart. Access: Left upper arm AVF: site benign, thrill and bruit present, cannulated with 15 gauge needles x 2. Dr Misbah sanchez in room discussed HD orders.
--- NOTE | 2017-07-16 14:57 | CASEMGMT ---
Pt and updated that [facility] can take pt on Sunday. would like to be notified when she is leaving [facility] and he will meet her @ facility. Kyra BSN RN ACM
[2017-07-16] MEDS: Heparin 10,000 UNITS/10 ML Vial 3000 UNITS IV (15:45)
--- NOTE | 2017-07-16 17:51 | DIALYSIS ---
Hemodialysis complete. 3.35 hour run, 3k bath. Net fluid removed = 3400 ml. Patient tolerated HD tx well. Left upper arm AVF: site benign, thrill and bruit present, needle site pressure held 10 minutes each, hemostasis achieved. See HD flowsheet for specific treatment information. Report given to Hospital RN: Keira
[2017-07-16 18:01] LABS: Bedside Glucose 192 mg/dL (70-110)
--- NOTE | 2017-07-16 18:10 | RAD_ITS ---
STUDY: X-RAY - RIGHT SHOULDER REASON FOR EXAM: Female, 72 years old. Pain after fall TECHNIQUE: Two view(s) of the RIGHT shoulder were obtained. COMPARISON: None. FINDINGS: There are mild degenerative changes in the glenohumeral joint. There is degenerative arthrosis of the acromioclavicular joint without inferior osseous spur formation. No acute abnormalities are seen in the visualized clavicle. There are degenerative changes at the greater tuberosity. There appears to be an old Hill-Sachs deformity present. The soft tissues are unremarkable. The visualized lungs and ribs are unremarkable. RAD/Shoulder min 2 Views IMPRESSION: No acute abnormalities are seen. There are mild degenerative changes in the right shoulder. Electronically Signed: Desiree Fleming MD at 21:44 EST Tel Direct: [phone], Service support ,
[2017-07-16] MEDS: Gabapentin 100 MG Capsule 200 MG PO (22:37)
[2017-07-16] MEDS: Carvedilol 12.5 MG Tablet PO (22:37)
[2017-07-16] MEDS: Losartan Potassium 50 MG Tablet PO (22:39)
[2017-07-16] MEDS: Atorvastatin Calcium 40 MG Tablet PO (22:41)
[2017-07-16] MEDS: Doxazosin 4 MG Tablet 8 MG PO (22:41)
[2017-07-16] MEDS: cloNIDine HCl 0.1 MG Tablet PO (22:41)
[2017-07-16 22:46] LABS: Bedside Glucose 152 mg/dL (70-110)
[2017-07-17] VITALS (10 sets, daily range): BP systolic 96–133; BP diastolic 34–50; PULSE 59–67; RESP 14–16; TEMP 36–37.1; O2SAT 90–100
[2017-07-17] MEDS: Heparin Injection 5,000 UNITS/ML Syringe 5000 UNITS SC ×3 (06:50→21:37)
[2017-07-17] MEDS: 0.9% NaCl Peripheral Flush Adult/Peds IV (06:57)
[2017-07-17] MEDS: oxyCODONE 5 MG Tablet PO ×2 (07:49→12:12)
--- NOTE | 2017-07-17 07:52 | PCM.PN.HOSP ---
Patient Problems: Active and Suspected Problems Fracture of fifth metatarsal bone of right foot (Acute) Fall (Acute) Gait instability (Acute) Pain in right ankle and joints of right foot (Acute) Subjective: Patient seen pain related to control compared to the day prior. Plan is for patient to be discharged to alf facility on 07/18/2017. Pressure relatively low this a.m. we will continue to monitor and possibly hold her a.m. antihypertensive medications Objective: GENERAL: cooperative HEENT: Clear conjunctiva, NECK; supple, normal thyroid, CHEST: Clear to auscultation bilaterally, HEART: Regular S1 S2, ABDOMEN: soft, non-tender, normoactive bowel sounds, RECTAL: deferred EXTREMITIES: No edema, no clubbing, no cyanosis. TELEGRAPH OFFICE ROUTE AIDE: Awake, no lateralizing signs. SKIN: No rash Vitals/I&O's: Vital Signs Temp Pulse Resp BP Pulse Ox 98.8 F 67 16 96/36 L 100 07/17/17 03:23 07/17/17 06:56 07/17/17 03:23 07/17/17 06:56 07/17/17 03:23 Oxygen Flow Rate 1 Oxygen Delivery Method Room Air Weight: 74.4 kg Intake and Output for Last 24 Hours 07/15/17 07/16/17 07/17/17 23:59 23:59 23:59 Intake Total 240 / 850 1170 / 1170 280 / 280 Output Total 6800 / 6800 150 / 150 Balance 240 / 450 -5630 / -5630 130 / 130 Laboratory Results 07/16/17 07:39: POC Glucose 115 H 07/16/17 10:40: WBC 4.8, RBC 3.28 L, Hgb 9.6 L, Hct 30.9 L, MCV 94.2, MCH 29.3, MCHC 31.1 L, RDW 15.5 H, RDW Differential 51.1 H, Plt Count 114 L, MPV 10.0, Immature Gran % (Auto) 0.200, Neut % (Auto) 61.1, Lymph % (Auto) 25.2, [place] % (Auto) 9.5, Eos % (Auto) 3.2, Baso % (Auto) 0.8, Absolute Neuts (auto) 2.9, Absolute Lymphs (auto) 1.20, Total Counted Not Reportable 07/16/17 10:40: Sodium 131 L, Potassium 3.6, Chloride 95 L, Carbon Dioxide 27.0, Anion Gap 9, BUN 29 H, Creatinine 4.74 H, Estim Creat Clear Calc 8.99, Est GFR (MDRD) Af Amer 12 L, Est GFR (MDRD) Non-Af 10 L, BUN/Creatinine Ratio 6.1 L, Glucose 85, Calcium 8.1 L 07/16/17 11:25: POC Glucose 96 07/16/17 17:52: POC Glucose 192 H 07/16/17 22:25: POC Glucose 152 H Current Medications Aspirin (Aspirin, Baby) 81 mg PO DAILY@0800 [facility] Last Admin: 07/16/17 07:49 Dose: 81 mg Atorvastatin Calcium (Lipitor) 40 mg PO QHS [facility] Last Admin: 07/16/17 22:41 Dose: 40 mg Calcium Acetate (Phoslo Gel Cap) 1,334 mg PO TIDCM [facility] Last Admin: 07/16/17 17:56 Dose: 1,334 mg Carvedilol (Coreg) 12.5 mg PO BID [facility] Last Admin: 07/16/17 22:37 Dose: 12.5 mg Clonidine (Catapres) 0.1 mg PO BID [facility] Last Admin: 07/16/17 22:41 Dose: 0.1 mg Clopidogrel Bisulfate (Plavix) 75 mg PO DAILY [facility] Last Admin: 07/16/17 07:48 Dose: 75 mg Cyclobenzaprine HCl (Cyclobenzaprine Hcl) 5 mg PO BID PRN PRN PRN Reason: MUSCLE SPASM Last Admin: 07/15/17 06:43 Dose: 5 mg Diltiazem HCl (Cardizem Cd) 120 mg PO DAILY [facility] Last Admin: 07/16/17 07:49 Dose: Not Given Docusate Sodium (Colace) 100 mg PO DAILY [facility] Last Admin: 07/16/17 07:48 Dose: 100 mg Doxazosin Mesylate (Cardura) 8 mg PO QHS [facility] Last Admin: 07/16/17 22:41 Dose: 8 mg [facility] Admin: 07/16/17 17:56 Dose: 100 mg Gabapentin (Neurontin) 200 mg PO QHS [facility] Last Admin: 07/16/17 22:37 Dose: 200 mg Heparin Sodium (Porcine) () 5,000 units SC Q8 [facility] Last Admin: 02/27/18 06:50 Dose: 5,000 units Hydralazine HCl (Apresoline) 100 mg PO TID [facility] Last Admin: 07/17/17 06:56 Dose: Not Given Insulin Aspart (Novolog Flexpen (Bkc)) 0 units SC ACHS [facility] PRN Reason: Protocol Last Admin: 07/16/17 22:35 Dose: 2 units Insulin Aspart (Novolog Flexpen (Bkc)) 10 units SC TIDAC [facility] Last Admin: 07/16/17 17:57 Dose: 10 units Insulin Detemir (Levemir (Bk)) 18 units SC QHS [facility] Last Admin: 07/16/17 22:36 Dose: 18 units Isosorbide Mononitrate (Imdur) 60 mg PO BID [facility] Last Admin: 07/16/17 22:37 Dose: 60 mg Losartan Potassium (Cozaar) 50 mg PO BID [facility] Last Admin: 07/16/17 22:39 Dose: 50 mg Multivit/Ca Carb/B Cmplx/FA/Prenat (Nephrocaps, [facility]ro) [facility] Last Admin: 07/16/17 07:48 Dose: 1 capsule Nutritional Formula (Nepro Carb Steady) 120 ml PO 4X/DAY [facility] Last Admin: 07/16/17 22:45 Dose: 120 ml Ondansetron HCl (Zofran) 4 mg IV Q8H PRN PRN PRN Reason: NAUSEA Oxycodone HCl (Oxyir) 10 - 15 mg PO Q4H PRN PRN PRN Reason: SEVERE PAIN (6-10/10) Last Admin: 07/16/17 17:59 Dose: 15 mg Pantoprazole Sodium (Protonix) 40 mg PO DAILY [facility] Last Admin: 07/16/17 07:48 Dose: 40 mg Promethazine HCl (Phenergan) 25 mg PO 4X/DAY PRN PRN PRN Reason: NAUSEA Sodium Chloride () 5 - 30 ml IV UD PRN PRN Reason: SALINE FLUSH Last Admin: 07/17/17 06:57 Dose: 10 ml Assessment/Plan Active and Suspected Problems Fracture of fifth metatarsal bone of right foot (Acute) Fall (Acute) Gait instability (Acute) Pain in right ankle and joints of right foot (Acute) Patient is a 72 year old lady admitted following a fall while is undergoing dialysis she apparently tripped. Imaging studies demonstrated acute fracture involving the right fifth metatarsal bone nondisplaced admitted to regular nursing floor for pain management 1. Nondisplaced fracture involving the right fifth metatarsal bone secondary to a fall and worsened by patient's underlying osteoporosis admitted to regular nursing floor for pain management seen in consultation by podiatry also requested for PT and OT evaluation and mental health social worker to assist with discharge planning patient scheduled to be discharged on 07/18/2017 2. End-stage renal disease patient is on hemodialysis consultation placed to nephrology for dialysis orders 3. Osteoporosis 4. Diabetes mellitus type 2 with complications including end-stage renal disease. Patient is on insulin did continue with home regimen also placed on Accu-Cheks before meals and at bedtime and cover with sliding scale insulin 5. Paroxysmal A. fib in sinus rhythm 6. CAD status post pains patient is on recommended medications 7. Hypothyroidism-patient is on levothyroxine home dose continued 8. Hypertension-blood pressure controlled, home medications continued with dose adjustment as needed 9. Dyslipidemia-patient is on statin therapy, continued at home dose 10. DVT prophylaxis~heparin Code Visit Inpatient E&M: [id number] [facility] H[facility] L2
--- NOTE | 2017-07-17 07:57 | PN_ITS ---
Patient Problems: Active and Suspected Problems Fracture of fifth metatarsal bone of right foot (Acute) Fall (Acute) Gait instability (Acute) Pain in right ankle and joints of right foot (Acute) Subjective: Patient seen pain related to control compared to the day prior. Plan is for patient to be [facility] on [facility]18/2017. Pressure relatively low this a.m. we will continue to monitor and possibly hold her a.m. antihypertensive medications Objective: GENERAL: cooperative HEENT: Clear conjunctiva, NECK; supple, normal thyroid, CHEST: Clear to auscultation bilaterally, HEART: Regular S1 S2, ABDOMEN: soft, non-tender, normoactive bowel sounds, RECTAL: deferred EXTREMITIES: No edema, no clubbing, no cyanosis. EDUCATION RESEARCH ANALYST: Awake, no lateralizing signs. SKIN: No rash Vitals/I&O's: Vital Signs Temp Pulse Resp BP Pulse Ox 98.8 F 67 16 96/36 L 100 07/17/17 03:23 07/17/17 06:56 07/17/17 03:23 07/17/17 06:56 07/17/17 03:23 Oxygen Flow Rate 1 Oxygen Delivery Method Room Air Weight: 74.4 kg Intake and Output for Last 24 Hours 07/15/17 07/16/17 07/17/17 23:59 23:59 23:59 Intake Total 240 / 850 1170 / 1170 280 / 280 Output Total 6800 / 6800 150 / 150 Balance 240 / 450 -5630 / -5630 130 / 130 Laboratory Results 07/16/17 07:39: POC Glucose 115 H 07/16/17 10:40: WBC 4.8, RBC 3.28 L, Hgb 9.6 L, Hct 30.9 L, MCV 94.2, MCH 29.3, MCHC 31.1 L, RDW 15.5 H, RDW Differential 51.1 H, Plt Count 114 L, MPV 10.0, Immature Gran % (Auto) 0.200, Neut % (Auto) 61.1, Lymph % (Auto) 25.2, [place] % ( Auto) 9.5, Eos % (Auto) 3.2, Baso % (Auto) 0.8, Absolute Neuts (auto) 2.9, Absolute Lymphs (auto) 1.20, Total Counted Not Reportable 07/16/17 10:40: Sodium 131 L, Potassium 3.6, Chloride 95 L, Carbon Dioxide 27.0 , Anion Gap 9, BUN 29 H, Creatinine 4.74 H, Estim Creat Clear Calc 8.99, Est GFR (MDRD) Af Amer 12 L, Est GFR (MDRD) Non-Af 10 L, BUN/Creatinine Ratio 6.1 L , Glucose 85, Calcium 8.1 L 07/16/17 11:25: POC Glucose 96 07/16/17 17:52: POC Glucose 192 H 07/16/17 22:25: POC Glucose 152 H Current Medications Aspirin (Aspirin, Baby) 81 mg PO DAILY@0800 [facility] Last Admin: 07/16/17 07:49 Dose: 81 mg Atorvastatin Calcium (Lipitor) 40 mg PO QHS [facility] Last Admin: 07/16/17 22:41 Dose: 40 mg Calcium Acetate (Phoslo Gel Cap) 1,334 mg PO TIDCM [facility] Last Admin: 07/16/17 17:56 Dose: 1,334 mg Carvedilol (Coreg) 12.5 mg PO BID [facility] Last Admin: 07/16/17 22:37 Dose: 12.5 mg Clonidine (Catapres) 0.1 mg PO BID [facility] Last Admin: 07/16/17 22:41 Dose: 0.1 mg Clopidogrel Bisulfate (Plavix) 75 mg PO DAILY [facility] Last Admin: 07/16/17 07:48 Dose: 75 mg Cyclobenzaprine HCl (Cyclobenzaprine Hcl) 5 mg PO BID PRN PRN PRN Reason: MUSCLE SPASM Last Admin: 07/15/17 06:43 Dose: 5 mg Diltiazem HCl (Cardizem Cd) 120 mg PO DAILY [facility] Last Admin: 07/16/17 07:49 Dose: Not Given Docusate Sodium (Colace) 100 mg PO DAILY [facility] Last Admin: 07/16/17 07:48 Dose: 100 mg Doxazosin Mesylate (Cardura) 8 mg PO QHS [facility] Last Admin: 07/16/17 22:41 Dose: 8 mg [facility] ([facility]ontin) [facility] Admin: 07/16/17 17:56 Dose: 100 mg Gabapentin (Neurontin) 200 mg PO QHS [facility] Last Admin: 07/16/17 22:37 Dose: 200 mg Heparin Sodium (Porcine) () 5,000 units SC Q8 [facility] Last Admin: 02/27/18 06:50 Dose: 5,000 units Hydralazine HCl (Apresoline) 100 mg PO TID [facility] Last Admin: 07/17/17 06:56 Dose: Not Given Insulin Aspart (Novolog Flexpen (Bkc)) 0 units SC ACHS [facility] PRN Reason: Protocol Last Admin: 07/16/17 22:35 Dose: 2 units Insulin Aspart (Novolog Flexpen (Bkc)) 10 units SC TIDAC [facility] Last Admin: 07/16/17 17:57 Dose: 10 units Insulin Detemir (Levemir (Bk)) 18 units SC QHS [facility] Last Admin: 07/16/17 22:36 Dose: 18 units Isosorbide Mononitrate (Imdur) 60 mg PO BID [facility] Last Admin: 07/16/17 22:37 Dose: 60 mg Losartan Potassium (Cozaar) 50 mg PO BID [facility] Last Admin: 07/16/17 22:39 Dose: 50 mg Multivit/Ca Carb/B Cmplx/FA/Prenat (Nephrocaps, Renaphro) [facility] Last Admin: 07/16/17 07:48 Dose: 1 capsule Nutritional Formula (Nepro Carb Steady) 120 ml PO 4X/DAY [facility] Last Admin: 07/16/17 22:45 Dose: 120 ml Ondansetron HCl (Zofran) 4 mg IV Q8H PRN PRN PRN Reason: NAUSEA Oxycodone HCl (Oxyir) 10 - 15 mg PO Q4H PRN PRN PRN Reason: SEVERE PAIN (6-10/10) Last Admin: 07/16/17 17:59 Dose: 15 mg Pantoprazole Sodium (Protonix) 40 mg PO DAILY [facility] Last Admin: 07/16/17 07:48 Dose: 40 mg Promethazine HCl (Phenergan) 25 mg PO 4X/DAY PRN PRN PRN Reason: NAUSEA Sodium Chloride () 5 - 30 ml IV UD PRN PRN Reason: SALINE FLUSH Last Admin: 07/17/17 06:57 Dose: 10 ml Assessment/Plan Active and Suspected Problems Fracture of fifth metatarsal bone of right foot (Acute) Fall (Acute) Gait instability (Acute) Pain in right ankle and joints of right foot (Acute) Patient is a 72 year old lady admitted following a fall while is undergoing dialysis she apparently tripped. Imaging studies demonstrated acute fracture involving the right fifth metatarsal bone nondisplaced admitted to regular nursing floor for pain management 1. Nondisplaced fracture involving the right fifth metatarsal bone secondary to a fall and worsened by patient's underlying osteoporosis admitted to regular nursing floor for pain management seen in consultation by podiatry also requested for PT and OT evaluation and social and political studies professor to assist with discharge planning patient scheduled to be discharged on 07/18/2017 2. End-stage renal disease patient is on hemodialysis consultation placed to nephrology for dialysis orders 3. Osteoporosis 4. Diabetes mellitus type 2 with complications including end-stage renal disease. Patient is on insulin did continue with home regimen also placed on Accu-Cheks before meals and at bedtime and cover with sliding scale insulin 5. Paroxysmal A. fib in sinus rhythm 6. CAD status post pains patient is on recommended medications 7. Hypothyroidism-patient is on levothyroxine home dose continued 8. Hypertension-blood pressure controlled, home medications continued with dose adjustment as needed 9. Dyslipidemia-patient is on statin therapy, continued at home dose 10. DVT prophylaxis~heparin Code Visit Inpatient E&M: 25004 Subs Hosp L2
[2017-07-17 08:11] LABS: Bedside Glucose 95 mg/dL (70-110)
--- NOTE | 2017-07-17 08:43 | PN.RENAL_ITS ---
Patient Problems: Active and Suspected Problems Fracture of fifth metatarsal bone of right foot (Acute) Fall (Acute) Gait instability (Acute) Pain in right ankle and joints of right foot (Acute) Subjective: Still on significant pain from her ankle fracture. Appetite low. Blood pressure has been low as well on her home medications. Concern with compliance with her medications at home since her blood pressure is running low in the hospital. - Physical Exam General: Alert, Oriented x3, Cooperative, - - Mild discomfort Lungs: Clear to auscultation Cardiovascular: Regular rate Abdomen: Bowel Sounds Present, Soft, Non Tender Extremities: No edema Vital Signs Temp Pulse Resp BP Pulse Ox 98.8 F 67 16 96/36 L 100 07/17/17 03:23 07/17/17 06:56 07/17/17 03:23 07/17/17 06:56 07/17/17 03:23 Oxygen Flow Rate 1 Oxygen Delivery Method Room Air Weight: 74.4 kg Intake and Output for Last 24 Hours 07/15/17 07/16/17 07/17/17 23:59 23:59 23:59 Intake Total 240 / 850 1170 / 1170 280 / 280 Output Total 6800 / 6800 150 / 150 Balance 240 / 450 -5630 / -5630 130 / 130 Laboratory Tests Past 24 Hrs 07/16/17 07/16/17 10:40 10:40 WBC 4.8 RBC 3.28 L Hgb 9.6 L Hct 30.9 L MCV 94.2 MCH 29.3 MCHC 31.1 L RDW 15.5 H RDW Differential 51.1 H Plt Count 114 L MPV 10.0 Immature Gran % (Auto) 0.200 Neut % (Auto) 61.1 Lymph % (Auto) 25.2 [place] % (Auto) 9.5 Eos % (Auto) 3.2 Baso % (Auto) 0.8 Absolute Neuts (auto) 2.9 Absolute Lymphs (auto) 1.20 Total Counted Not Reportable Sodium 131 L Potassium 3.6 Chloride 95 L Carbon Dioxide 27.0 Anion Gap 9 BUN 29 H Creatinine 4.74 H Estim Creat Clear Calc 8.99 Est GFR (MDRD) Af Amer 12 L Est GFR (MDRD) Non-Af 10 L BUN/Creatinine Ratio 6.1 L Glucose 85 Calcium 8.1 L POC Glucose 07/17/17 07/16/17 07/16/17 07:57 22:25 17:52 POC Glucose 95 152 H 192 H 07/16/17 11:25 POC Glucose 96 Assessment/Plan Active and Suspected Problems Fracture of fifth metatarsal bone of right foot (Acute) Fall (Acute) Gait instability (Acute) Pain in right ankle and joints of right foot (Acute) 1. ESRD hemodialysis next on Sunday 2. Hypertension blood pressure on home medications. Number complaints with her medications at home 3. Status post mechanical fall with fifth metatarsal fracture 4. Secondary hyperparathyroidism on binders. Check phosphorus level 5. Hyperphosphatemia patient on Renvela home. Only on calcium acetate. Check phosphorus in a.m.
[2017-07-17] MEDS: cloNIDine HCl 0.1 MG Tablet PO ×2 (08:58→21:37)
[2017-07-17] MEDS: Docusate Sodium 100 MG Capsule PO (08:58)
[2017-07-17] MEDS: Aspirin 81 MG TAB.CHEW PO (08:58)
[2017-07-17] MEDS: Gabapentin 100 MG Capsule PO ×2 (08:58→18:03)
[2017-07-17] MEDS: Calcium Acetate 667 MG Capsule 1334 MG PO ×3 (08:58→18:02)
[2017-07-17] MEDS: Folic Acid/Vitamin B Comp W-C 1 Capsule 1 CAP PO (08:58)
[2017-07-17] MEDS: Pantoprazole Sodium 40 MG Tablet PO (08:59)
[2017-07-17] MEDS: Losartan Potassium 50 MG Tablet PO ×2 (08:59→21:37)
[2017-07-17] MEDS: dilTIAZem CD 120 MG Capsule PO (08:59)
[2017-07-17] MEDS: Isosorbide Mononitrate 60 MG Tablet PO ×2 (08:59→21:37)
[2017-07-17] MEDS: Clopidogrel Bisulfate 75 MG Tablet PO (08:59)
[2017-07-17] MEDS: Carvedilol 12.5 MG Tablet PO ×2 (08:59→21:37)
[2017-07-17] MEDS: Nepro Liquid 120 ML LIQUID PO ×2 (09:03→18:04)
[2017-07-17] MEDS: Polyethylene Glycol 3350 17 GM PACKET PO (09:39)
[2017-07-17 12:26] LABS: Bedside Glucose 104 mg/dL (70-110)
--- NOTE | 2017-07-17 12:27 | NURSING ---
pt placed on 1L O2 NC due to drowsiness and requesting more pain medication. pulse ox at room air was 90%. humidification applied as pt was c/o dryness and bleeding to her nose from the oxygen. pulse ox improved to 93%. assisted pt to use I/S again. will continue to monitor.
--- NOTE | 2017-07-17 17:00 | NURSING ---
pt blood glucose at supper time 50. she is drowsy and sweaty. orange juice and apple juice given. rechecked after 15 minutes and improved to 97. held dinnertime novolog. will continue to monitor.
[2017-07-17 18:01] LABS: Bedside Glucose 97 mg/dL (70-110)
[2017-07-17 18:01] LABS: Bedside Glucose 50 mg/dL (70-110)
[2017-07-17] MEDS: Acetaminophen 325 MG Tablet 650 MG PO (18:04)
[2017-07-17] MEDS: Gabapentin 100 MG Capsule 200 MG PO (21:36)
[2017-07-17] MEDS: Atorvastatin Calcium 40 MG Tablet PO (21:37)
[2017-07-17] MEDS: Doxazosin 4 MG Tablet 8 MG PO (21:37)
[2017-07-17 21:56] LABS: Bedside Glucose 185 mg/dL (70-110)
[2017-07-18 05:19] VITALS: BP 132/43; PULSE 59; RESP 16; TEMP 36.4; O2SAT 95
[2017-07-18 05:21] VITALS: BP 132/43; PULSE 59
[2017-07-18] MEDS: Heparin Injection 5,000 UNITS/ML Syringe 5000 UNITS SC ×3 (05:32→20:05)
[2017-07-18 06:45] LABS: Bedside Glucose 99 mg/dL (70-110)
[2017-07-18 06:58] LABS: Hematocrit 30.6 % (37-47); Hemoglobin 9.5 g/dl (12.0-15.0); Mean Corpuscular Hgb 29.5 pg (27.0-32.0); Mean Platelet Vol. 10.1 fl (6.2-12.0); Platelet Count 131 K/mm3 (150-450); RBC Distribution Width CV 15.7 % (11.6-14.6); RBC Distribution Width SD 52.6 fl (35.1-43.9); Red Blood Count 3.22 M/mm3 (4.2-5.4); White Blood Count 4.5 K/mm3 (4.4-11.0)
[2017-07-18 07:01] LABS: Scan Indicated on CBC? Y/N NO
[2017-07-18 07:22] LABS: Albumin, Serum 2.4 g/dL (3.2-5.0); BUN 36 mg/dL (7-18); BUN/Creat Ratio 7.9 RATIO (10-20); Chloride 93 mmol/L (98-107); Creatinine, Serum 4.54 mg/dL (0.55-1.02); EST Glomerular Filtration Rate 10 mL/min (>60); Est Glom Filt Rate - Afr Amer 12 mL/min (>60); Estimated Creatinine Clearance 9.39 ml/min; Glucose 89 mg/dL (74-106); Phosphorus 3.9 mg/dL (2.5-4.9); Potassium 4.4 mmol/L (3.5-5.1); Sodium Level 131 mmol/L (136-145)
[2017-07-18 07:26] VITALS: O2SAT 97
--- NOTE | 2017-07-18 08:02 | PCM.TXEXTCAR ---
- Therapies Physical Therapy: Eval and Treat Occupational Therapy: Eval and Treat - Allergies/Procedures Done in Hospital Allergies/Adverse Reactions: Allergies lisinopril Allergy (Verified 07/14/17 08:30) Swelling nebivolol HCl [From Bystolic] Adverse Reaction (Verified 07/14/17 08:30) Other BRADYCARDIA - Type of Care/Length of Stay Estimated LOS: Convalescent Care Less Than 30 days Type of Care Needed: Skilled Rehab Potential: Fair Prognosis: Fair - Additional Orders/Day of Discharge Day of Discharge: 07/18/17 - Dietary and Speech Recommendations Dietitian Recommendations/Changes: Rec diet change to 2000 calorie controlled, renal 90 g protein. Encourage Nepro ONS w/ medpass- switch to Glucerna if pt does not like Nepro ONS. - Follow Up Care Primary Care Physician: Robyn Sharma [Primary Care Provider] - Please Follow Up With: Anuradha Crawley DO When: for dialysis
--- NOTE | 2017-07-18 08:06 | PCM.DC.SUM ---
Discharge Date and Diagnosis - Problem List Patient Problems: Active and Suspected Problems Fracture of fifth metatarsal bone of right foot (Acute) Fall (Acute) Gait instability (Acute) Pain in right ankle and joints of right foot (Acute) Date of Admission: 07/14/17 Date of Discharge: 07/19/17 - Primary Discharge Diagnosis Active and Suspected Problems Fracture of fifth metatarsal bone of right foot (Acute) Fall (Acute) Gait instability (Acute) Pain in right ankle and joints of right foot (Acute) - Secondary Discharge Diagnosis Chronic Problems Other specified peripheral vascular diseases (Chronic) Congenital coronary artery anomaly (Chronic) S/P PTCA (percutaneous transluminal coronary angioplasty) (Chronic) Bradycardia (Chronic) CAD (coronary artery disease) (Chronic) Diabetes mellitus, type II (Chronic) Hyperlipidemia (Chronic) Hypothyroidism (Chronic) Anemia in chronic kidney disease (Chronic) Hypertension (Chronic) End stage renal disease on dialysis (Chronic) Hospital Course and Treatment Imaging Results: Clinical Impression(s) from Imaging Studies Ankle X-Ray 07/14/17 09:24 IMPRESSION: No fracture or dislocation. Osteopenia. Electronically Signed: Migel Gilliam MD at 10:02 EST Tel , Service support , Foot X-Ray 07/14/17 09:24 IMPRESSION: Fifth metatarsal fracture Forefoot deformity. Electronically Signed: Migel Gilliam MD at 10:04 EST Tel , Service support , Knee X-Ray 07/14/17 09:30 IMPRESSION: No acute fracture or dislocation Electronically Signed: Migel Gilliam MD at 10:05 EST Tel , Service support , Shoulder X-Ray 07/16/17 18:10 IMPRESSION: No acute abnormalities are seen. There are mild degenerative changes in the right shoulder. Electronically Signed: Desiree Fleming MD at 21:44 EST Tel Direct: [phone], Service support , Operations: - Summary of Care Provided: Patient is a 72 year old lady admitted following a fall while is undergoing dialysis she apparently tripped. Imaging studies demonstrated acute fracture involving the right fifth metatarsal bone nondisplaced admitted to regular nursing floor for pain management 1. Nondisplaced fracture involving the right fifth metatarsal bone secondary to a fall and worsened by patient's underlying osteoporosis admitted to regular nursing floor for pain management seen in consultation by podiatry also requested for PT and OT evaluation and professor of social work to assist with discharge planning patient scheduled to be discharged on 07/18/2017 2. End-stage renal disease patient is on hemodialysis consultation placed to nephrology for dialysis orders 3. Osteoporosis 4. Diabetes mellitus type 2 with complications including end-stage renal disease. Patient is on insulin did continue with home regimen also placed on Accu-Cheks before meals and at bedtime and cover with sliding scale insulin 5. Paroxysmal A. fib in sinus rhythm 6. CAD status post pains patient is on recommended medications 7. Hypothyroidism-patient is on levothyroxine home dose continued 8. Hypertension-blood pressure controlled, home medications continued with dose adjustment as needed 9. Dyslipidemia-patient is on statin therapy, continued at home dose 10. DVT prophylaxis~heparin Discharge Diet: Renal Diet Discharge Activity: Return to Normal Activity Home Medications: Medications to take at Discharge Aspirin [Aspirin, Baby] 81 mg PO DAILY@0800 02/24/14 Atorvastatin Calcium [Lipitor] 40 mg PO QHS #30 tablet 03/03/14 Folic Acid/Vitamin B Comp W-C [Nephrocaps, Renaphro] 1 capsule PO DAILYCM #30 capsule 03/03/14 Pantoprazole Sodium [Protonix] 40 mg PO DAILY #30 tablet 03/03/14 Docusate Sodium [Colace] 200 mg PO DAILY PRN PRN 09/08/14 Losartan Potassium [Cozaar] 50 mg PO BID 09/08/14 Promethazine HCl 25 mg PO 4X/DAY PRN PRN 09/08/14 B Complex W-C No.20/Folic Acid [Triphrocaps Softgel] 1 mg PO DAILY 04/30/15 Cholecalciferol (Vitamin D3) [Vitamin D3] 5,000 unit PO MOWEFR 04/30/15 Isosorbide Mononitrate [Imdur] 60 mg PO BID 04/30/15 Cyclobenzaprine HCl 5 mg PO BID PRN PRN 12/14/15 Insulin Detemir [Levemir FlexPen] 22 units SC QHS 12/14/15 Gabapentin [Neurontin] 100 mg PO BIDCM 12/20/15 Gabapentin [Neurontin] 200 mg PO QHS 12/20/15 Clopidogrel Bisulfate [Plavix] 75 mg PO DAILY 07/05/16 carvedilol 6.25 mg tablet 12.5 mg PO BID tab 05/01/17 Clonidine HCl 0.1 mg PO TID 07/14/17 Diltiazem HCl [Cartia Xt] 120 mg PO DAILY 07/14/17 Ropinirole HCl [Requip] 0.25 mg PO QHS 07/14/17 Sevelamer Carbonate 800 mg PO TIDCM 07/14/17 Acetaminophen [Tylenol Tablet] 650 mg PO Q4H PRN PRN tablet 07/18/17 Insulin Aspart [Novolog Flexpen] See Protocol SC ACHS flexpen 07/18/17 Oxycodone HCl/Acetaminophen [Percocet 5-325] 2 tab PO Q4H PRN PRN #20 tab 07/18/17 Following Prescrptions Were Given to Patient: Oxycodone HCl/Acetaminophen [Percocet 5-325] 2 tab PO Q4H PRN PRN #20 tab PRN Reason: Pain Primary Care Physician: Robyn Sharma [Primary Care Provider] - Please Follow Up With: Anuradha Crawley DO When: for dialysis Disposition: Shelter facility Minutes spent on discharge:: 35 Patient Condition:: Stable Meaningful Use Info Meaningful Use Diagnoses (Choose all that apply): None applicable Code Visit Inpatient E&M: 64412 Disch Hosp
--- NOTE | 2017-07-18 08:42 | PN.RENAL_ITS ---
Patient Problems: Active and Suspected Problems Fracture of fifth metatarsal bone of right foot (Acute) Fall (Acute) Gait instability (Acute) Pain in right ankle and joints of right foot (Acute) Subjective: Seen at start of dialysis this morning. Blood pressure running low normal especially for the patient. She usually runs systolic blood pressure 170-200 at the dialysis center. We will hold her hydralazine and doxazosin for now. Question compliance with her medications at home since her blood pressures are significantly better in the hospital. She is scheduled scheduled for discharge to [facility] after dialysis today. Episode of confusion, feel like she is burning. She is on pain medication for right ankle fracture. - Physical Exam General: Alert, Oriented x3, Cooperative, No apparent distress Oral: Dry Mucosa Neck: Supple Lungs: Clear to auscultation Cardiovascular: Regular rate Abdomen: Bowel Sounds Present, Soft, Non Tender, Non-Distended Extremities: No edema Musculoskeletal: - - Right ankle fracture immobilizer Neurological: - - Confusion Psych/Mental Status: - - intermittent Confusion, Alert and oriented to time, place, person, mood and affect Vital Signs Temp Pulse Resp BP Pulse Ox 97.6 F L 59 L 16 132/43 H 97 07/18/17 05:19 07/18/17 05:21 07/18/17 05:19 07/18/17 05:21 07/18/17 07:26 Oxygen Flow Rate 5 Oxygen Delivery Method Nasal Cannula Weight: 74.4 kg Intake and Output for Last 24 Hours 07/16/17 07/17/17 07/18/17 23:59 23:59 23:59 Intake Total 1170 / 1170 980 / 980 Output Total 6800 / 6800 150 / 150 Balance -5630 / -5630 830 / 830 Laboratory Tests Past 24 Hrs 07/18/17 07/18/17 06:48 06:48 WBC 4.5 RBC 3.22 L Hgb 9.5 L Hct 30.6 L MCV 95.0 MCH 29.5 MCHC 31.0 L RDW 15.7 H RDW Differential 52.6 H Plt Count 131 L MPV 10.1 Sodium 131 L Potassium 4.4 Chloride 93 L Carbon Dioxide 29.0 BUN 36 H Creatinine 4.54 H Estim Creat Clear Calc 9.39 Est GFR (MDRD) Af Amer 12 L Est GFR (MDRD) Non-Af 10 L BUN/Creatinine Ratio 7.9 L Glucose 89 Calcium 9.0 Phosphorus 3.9 Albumin 2.4 L POC Glucose 07/18/17 07/17/17 07/17/17 06:38 21:41 17:19 POC Glucose 99 185 H 97 07/17/17 07/17/17 16:56 12:12 POC Glucose 50 L 104 Assessment/Plan Active and Suspected Problems Fracture of fifth metatarsal bone of right foot (Acute) Fall (Acute) Gait instability (Acute) Pain in right ankle and joints of right foot (Acute) 1. ESRD hemodialysis in progress 2. Hypertension low blood pressure on home medications. stop hydralazine and doxazosin. 3. S/p mechanical fall with fifth metatarsal fracture rt foot 4. Secondary hyperparathyroidism on binders. phosphorus level stable 5. anemia hgb stable ok to dc to ECF after dialysis from renal standpoint. Follow up at dialysis unit. DW nursing and hospitalist
--- NOTE | 2017-07-18 08:54 | PN_ITS ---
Patient Problems: Active and Suspected Problems Fracture of fifth metatarsal bone of right foot (Acute) Fall (Acute) Gait instability (Acute) Pain in right ankle and joints of right foot (Acute) Subjective: Patient seen currently being dialyzed her antihypertensive regimen adjusted. Plan is for patient to be discharged nursing facility if her blood pressure remains stable after dialysis Objective: GENERAL: cooperative HEENT: Clear conjunctiva, NECK; supple, normal thyroid, CHEST: Clear to auscultation bilaterally, HEART: Regular S1 S2, ABDOMEN: soft, non-tender, normoactive bowel sounds, RECTAL: deferred EXTREMITIES: No edema, no clubbing, no cyanosis. STRETCH MACHINE OPERATOR: Awake, no lateralizing signs. SKIN: No rash Vitals/I&O's: Vital Signs Temp Pulse Resp BP Pulse Ox 97.6 F L 59 L 16 132/43 H 97 07/18/17 05:19 07/18/17 05:21 07/18/17 05:19 07/18/17 05:21 07/18/17 07:26 Oxygen Flow Rate 5 Oxygen Delivery Method Nasal Cannula Weight: 74.4 kg Intake and Output for Last 24 Hours 07/16/17 07/17/17 07/18/17 23:59 23:59 23:59 Intake Total 1170 / 1170 980 / 980 Output Total 6800 / 6800 150 / 150 Balance -5630 / -5630 830 / 830 Laboratory Results 07/17/17 12:12: POC Glucose 104 07/17/17 16:56: POC Glucose 50 L 07/17/17 17:19: POC Glucose 97 07/17/17 21:41: POC Glucose 185 H 07/18/17 06:38: POC Glucose 99 07/18/17 06:48: WBC 4.5, RBC 3.22 L, Hgb 9.5 L, Hct 30.6 L, MCV 95.0, MCH 29.5, MCHC 31.0 L, RDW 15.7 H, RDW Differential 52.6 H, Plt Count 131 L, MPV 10.1 07/18/17 06:48: Sodium 131 L, Potassium 4.4, Chloride 93 L, Carbon Dioxide 29.0 , BUN 36 H, Creatinine 4.54 H, Estim Creat Clear Calc 9.39, Est GFR (MDRD) Af Amer 12 L, Est GFR (MDRD) Non-Af 10 L, BUN/Creatinine Ratio 7.9 L, Glucose 89, Calcium 9.0, Phosphorus 3.9, Albumin 2.4 L Current Medications Acetaminophen (Tylenol) 650 mg PO Q4H PRN PRN PRN Reason: PAIN Last Admin: 07/17/17 18:04 Dose: 650 mg Aspirin (Aspirin, Baby) 81 mg PO DAILY@0800 [facility] Last Admin: 07/17/17 08:58 Dose: 81 mg Atorvastatin Calcium (Lipitor) 40 mg PO QHS [facility] Last Admin: 07/17/17 21:37 Dose: 40 mg Calcium Acetate (Phoslo Gel Cap) 1,334 mg PO TIDCM [facility] Last Admin: 07/17/17 18:02 Dose: 1,334 mg Carvedilol (Coreg) 12.5 mg PO BID [facility] Last Admin: 07/17/17 21:37 Dose: 12.5 mg Clonidine (Catapres) 0.1 mg PO BID [facility] Last Admin: 07/17/17 21:37 Dose: 0.1 mg Clopidogrel Bisulfate (Plavix) 75 mg PO DAILY [facility] Last Admin: 07/17/17 08:59 Dose: 75 mg Cyclobenzaprine HCl (Cyclobenzaprine Hcl) 5 mg PO BID PRN PRN PRN Reason: MUSCLE SPASM Last Admin: 07/15/17 06:43 Dose: 5 mg Diltiazem HCl (Cardizem Cd) 120 mg PO DAILY [facility] Last Admin: 07/17/17 08:59 Dose: 120 mg Docusate Sodium (Colace) 100 mg PO DAILY [facility] Last Admin: 07/17/17 08:58 Dose: 100 mg Doxazosin Mesylate (Cardura) 8 mg PO QHS [facility] Last Admin: 07/17/17 21:37 Dose: 8 mg [facility] Last Admin: 07/17/17 18:03 Dose: 100 mg Gabapentin (Neurontin) 200 mg PO QHS [facility] Last Admin: 07/17/17 21:36 Dose: 200 mg Heparin Sodium (Porcine) () 5,000 units SC Q8 [facility] Last Admin: 07/18/17 05:32 Dose: 5,000 units Hydralazine HCl (Apresoline) 100 mg PO TID [facility] Last Admin: 07/18/17 05:21 Dose: Not Given Insulin Aspart (Novolog Flexpen (Bkc)) 0 units SC ACHS [facility] PRN Reason: Protocol Last Admin: 07/18/17 07:36 Dose: Not Given Insulin Aspart (Novolog Flexpen ([facility])) 10 units SC TIDAC [facility] Last Admin: 07/17/17 17:07 Dose: Not Given Insulin Detemir (Levemir ([facility])) 18 units SC QHS [facility] Last Admin: 07/17/17 21:43 Dose: 18 units Isosorbide Mononitrate (Imdur) 60 mg PO BID [facility] Last Admin: 07/17/17 21:37 Dose: 60 mg Losartan Potassium (Cozaar) 50 mg PO BID [facility] Last Admin: 07/17/17 21:37 Dose: 50 mg Multivit/Ca Carb/B Cmplx/FA/Prenat (Nephrocaps, [facility]aphro) [facility] Last Admin: 07/17/17 08:58 Dose: 1 capsule Nutritional Formula (Nepro Carb Steady) 120 ml PO 4X/DAY [facility] Last Admin: 07/17/17 21:49 Dose: Not Given Ondansetron HCl (Zofran) 4 mg IV Q8H PRN PRN PRN Reason: NAUSEA Oxycodone HCl (Oxyir) 10 - 15 mg PO Q4H PRN PRN PRN Reason: SEVERE PAIN (6-10/10) Last Admin: 07/17/17 12:12 Dose: 15 mg Pantoprazole Sodium (Protonix) 40 mg PO DAILY [facility] Last Admin: 07/17/17 08:59 Dose: 40 mg Polyethylene Glycol (Miralax) 17 gm PO DAILY [facility] Last Admin: 07/17/17 09:39 Dose: 17 gm Promethazine HCl (Phenergan) 25 mg PO 4X/DAY PRN PRN PRN Reason: NAUSEA Sodium Chloride () 5 - 30 ml IV UD PRN PRN Reason: SALINE FLUSH Last Admin: 07/17/17 06:57 Dose: 10 ml Assessment/Plan Active and Suspected Problems Fracture of fifth metatarsal bone of right foot (Acute) Fall (Acute) Gait instability (Acute) Pain in right ankle and joints of right foot (Acute) Patient is a 72 year old lady admitted following a fall while is undergoing dialysis she apparently tripped. Imaging studies demonstrated acute fracture involving the right fifth metatarsal bone nondisplaced admitted to regular nursing floor for pain management 1. Nondisplaced fracture involving the right fifth metatarsal bone secondary to a fall and worsened by patient's underlying osteoporosis admitted to regular nursing floor for pain management seen in consultation by podiatry also requested for PT and OT evaluation and health social work professor to assist with discharge planning patient scheduled to be discharged on 07/18/2017 2. End-stage renal disease patient is on hemodialysis consultation placed to nephrology for dialysis orders 3. Osteoporosis 4. Diabetes mellitus type 2 with complications including end-stage renal disease. Patient is on insulin did continue with home regimen also placed on Accu-Cheks before meals and at bedtime and cover with sliding scale insulin 5. Paroxysmal A. fib in sinus rhythm 6. CAD status post pains patient is on recommended medications 7. Hypothyroidism-patient is on levothyroxine home dose continued 8. Hypertension-blood pressure relatively on the low side antihypertensive regimen adjusted 9. Dyslipidemia-patient is on statin therapy, continued at home dose 10. DVT prophylaxis~heparin Code Visit Inpatient E&M: 47246 Subs Hosp L2
--- NOTE | 2017-07-18 10:14 | NURSING ---
Narcotic pain medication avoided due to BP 94/45. Heart rate 64.
[2017-07-18] MEDS: Acetaminophen 325 MG Tablet 650 MG PO ×2 (10:15→19:56)
[2017-07-18 12:00] LABS: Bedside Glucose 105 mg/dL (70-110)
--- NOTE | 2017-07-18 12:07 | CASEMGMT ---
Addendum entered by Carmela Rowell 07/18/17 12:29: Physician postponed discharge until tomorrow. SW cancelled transport and let [facility] know. RN let pt know. SW will follow up tomorrow. MANDY Roman, CIGAR HEAD PEGGER Original Note: SW completed hospital exemption in [facility], faxed this and discharge instructions to Fr[facility] Whaley, schedule II script to ICP. SW set up a 2pm ambulance w/[facility]. SW let know outside of room pt is set up for 2pm transport. SW let pt know, she is now stating she is not going, states, you can't make me. She states she is in pain and doesn't feel well, and thinks that something is wrong. SW let outside of room know what pt said. SW explained will text physician and let him know. SW will continue to follow. MANDY Roman, CIGAR HEAD PEGGER
--- NOTE | 2017-07-18 12:28 | DIALYSIS ---
hemodialysis x 3hrs 15min. no fluid removal due to low bp. Dr. Crawley aware. See flowsheet on chart. pt stable post tx. report to malik JESUS.
[2017-07-18] MEDS: Pantoprazole Sodium 40 MG Tablet PO (12:42)
[2017-07-18] MEDS: Aspirin 81 MG TAB.CHEW PO (12:42)
[2017-07-18] MEDS: Polyethylene Glycol 3350 17 GM PACKET PO (12:44)
[2017-07-18] MEDS: Isosorbide Mononitrate 60 MG Tablet PO ×2 (12:44→20:04)
[2017-07-18] MEDS: Docusate Sodium 100 MG Capsule PO (12:46)
[2017-07-18] MEDS: Clopidogrel Bisulfate 75 MG Tablet PO (12:47)
[2017-07-18] MEDS: Calcium Acetate 667 MG Capsule 1334 MG PO ×2 (12:48→17:44)
[2017-07-18] MEDS: Gabapentin 100 MG Capsule PO ×2 (12:49→17:44)
[2017-07-18] MEDS: Folic Acid/Vitamin B Comp W-C 1 Capsule 1 CAP PO (12:49)
[2017-07-18 13:46] VITALS: BP 107/42; PULSE 62; RESP 16; TEMP 36.6; O2SAT 90
[2017-07-18 16:45] LABS: Bedside Glucose 171 mg/dL (70-110)
[2017-07-18] MEDS: Magnesium Citrate 300 ML PO (17:43)
[2017-07-18 19:54] VITALS: BP 125/81; PULSE 69; RESP 16; TEMP 36.7; O2SAT 93
[2017-07-18 20:04] VITALS: BP 125/81; PULSE 70
[2017-07-18] MEDS: Carvedilol 12.5 MG Tablet PO (20:04)
[2017-07-18] MEDS: Losartan Potassium 50 MG Tablet PO (20:04)
[2017-07-18] MEDS: Doxazosin 4 MG Tablet 8 MG PO (20:04)
[2017-07-18] MEDS: Senna/Docusate Sodium 1 Tablet PO (20:04)
[2017-07-18] MEDS: Atorvastatin Calcium 40 MG Tablet PO (20:05)
[2017-07-18] MEDS: cloNIDine HCl 0.1 MG Tablet PO (20:05)
[2017-07-18] MEDS: Nepro Liquid 120 ML LIQUID PO (20:13)
[2017-07-18] MEDS: Gabapentin 100 MG Capsule 200 MG PO (20:15)
[2017-07-18 20:26] LABS: Bedside Glucose 110 mg/dL (70-110)
[2017-07-19 03:12] VITALS: BP 104/34; PULSE 52; RESP 16; TEMP 36.6; O2SAT 95
[2017-07-19 05:48] VITALS: BP 131/56; PULSE 55
[2017-07-19] MEDS: Heparin Injection 5,000 UNITS/ML Syringe 5000 UNITS SC ×2 (05:49→14:50)
--- NOTE | 2017-07-19 08:00 | CT_ITS ---
STUDY: CT BRAIN WITHOUT CONTRAST REASON FOR EXAM: Female, 72 years old. Confusion. Hypertension. RADIATION DOSAGE (If Supplied By Facility): CTDIvol = ( 44.99 ) mGy, DLP = ( 745.49 ) mGycm TECHNIQUE: Transaxial CT imaging of the brain was performed without administration of intravenous contrast material. Individualized dose optimization techniques were used for this CT. COMPARISON: Comparison is made with prior study dated July 02, 2017. FINDINGS: Normal soft tissue structures. Normal calvarium. There is mild cerebral atrophy with widening of the extra-axial spaces and ventricular dilatation. There are areas of decreased attenuation within the white matter tracts of the supratentorial brain, consistent with microvascular disease changes. Normal basal ganglia and thalami. Normal brainstem. There is mild cerebellar atrophy. There is no intracranial hemorrhage. There are no findings of an acute ischemic infarction. Normal visualized paranasal sinuses. CT/Brain/Head without Contrast IMPRESSION: Chronic involutional changes of the brain. Electronically Signed: Eric Mckay MD at 11:05 EST Tel [phone], Service support ,
--- NOTE | 2017-07-19 08:01 | PCM.PN.HOSP ---
Patient Problems: Active and Suspected Problems Fracture of fifth metatarsal bone of right foot (Acute) Fall (Acute) Gait instability (Acute) Pain in right ankle and joints of right foot (Acute) Subjective: Did scale back on patient medication regimen. Daughter requested for CT of the head in view of patient altered level of sensorium Objective: GENERAL: Sleeping HEENT: Clear conjunctiva, NECK; supple, normal thyroid, CHEST: Clear to auscultation bilaterally, HEART: Regular S1 S2, ABDOMEN: soft, non-tender, normoactive bowel sounds, RECTAL: deferred EXTREMITIES: No edema, no clubbing, no cyanosis. DEMAND GENERATOR MANAGER: no lateralizing signs. SKIN: No rash Vitals/I&O's: Vital Signs Temp Pulse Resp BP Pulse Ox 97.8 F 55 L 16 131/56 H 95 07/19/17 03:12 07/19/17 05:48 07/19/17 03:12 07/19/17 05:48 07/19/17 03:12 Oxygen Flow Rate 4 Oxygen Delivery Method Nasal Cannula Weight: 74.4 kg Intake and Output for Last 24 Hours 07/17/17 07/18/17 07/19/17 23:59 23:59 23:59 Intake Total 980 / 980 540 / 540 Output Total 150 / 150 Balance 830 / 830 540 / 540 Laboratory Results 07/18/17 11:43: POC Glucose 105 07/18/17 16:39: POC Glucose 171 H 07/18/17 20:12: POC Glucose 110 Current Medications Acetaminophen (Tylenol) 650 mg PO Q4H PRN PRN PRN Reason: PAIN Last Admin: 07/18/17 19:56 Dose: 650 mg Aspirin (Aspirin, Baby) 81 mg PO DAILY@0800 [facility] Last Admin: 07/18/17 12:42 Dose: 81 mg Atorvastatin Calcium (Lipitor) 40 mg PO QHS [facility] Last Admin: 07/18/17 20:05 Dose: 40 mg Calcium Acetate (Phoslo Gel Cap) 1,334 mg PO TIDCM [facility] Last Admin: 07/18/17 17:44 Dose: 1,334 mg Carvedilol (Coreg) 12.5 mg PO BID [facility] Last Admin: 07/18/17 20:04 Dose: 12.5 mg Clonidine (Catapres) 0.1 mg PO BID [facility] Last Admin: 07/18/17 20:05 Dose: 0.1 mg Clopidogrel Bisulfate (Plavix) 75 mg PO DAILY [facility] Last Admin: 07/18/17 12:47 Dose: 75 mg Cyclobenzaprine HCl (Cyclobenzaprine Hcl) 5 mg PO BID PRN PRN PRN Reason: MUSCLE SPASM Last Admin: 07/15/17 06:43 Dose: 5 mg Diltiazem HCl (Cardizem Cd) 120 mg PO DAILY [facility] Last Admin: 07/18/17 12:46 Dose: Not Given Doxazosin Mesylate (Cardura) 8 mg PO QHS [facility] Last Admin: 07/18/17 20:04 Dose: 8 mg [facility] Last Admin: 07/18/17 17:44 Dose: 100 mg Gabapentin (Neurontin) 200 mg PO QHS [facility] Last Admin: 07/18/17 20:15 Dose: 200 mg Heparin Sodium (Porcine) () 5,000 units SC Q8 [facility] Last Admin: 07/19/17 05:49 Dose: 5,000 units Hydralazine HCl (Apresoline) 100 mg PO TID [facility] Last Admin: 07/19/17 05:48 Dose: 100 mg Insulin Aspart (Novolog Flexpen (Bkc)) 0 units SC ACHS [facility] PRN Reason: Protocol Last Admin: 07/18/17 20:16 Dose: Not Given Insulin Aspart (Novolog Flexpen (Bkc)) 10 units SC TIDAC [facility] Last Admin: 07/18/17 17:45 Dose: 10 units Insulin Detemir (Levemir (Bkc)) 18 units SC QHS [facility] Last Admin: 07/18/17 20:13 Dose: 18 units Isosorbide Mononitrate (Imdur) 60 mg PO BID [facility] Last Admin: 07/18/17 20:04 Dose: 60 mg Losartan Potassium (Cozaar) 50 mg PO BID [facility] Last Admin: 07/18/17 20:04 Dose: 50 mg Multivit/Ca Carb/B Cmplx/FA/Prenat (Nephrocaps, Renaphro) [facility] Last Admin: 07/18/17 12:49 Dose: 1 capsule Nutritional Formula (Nepro Carb Steady) 120 ml PO 4X/DAY [facility] Last Admin: 07/18/17 20:13 Dose: 120 ml Ondansetron HCl (Zofran) 4 mg IV Q8H PRN PRN PRN Reason: NAUSEA Oxycodone HCl (Oxyir) 5 mg PO Q6H PRN PRN PRN Reason: SEVERE PAIN (6-10/10) Pantoprazole Sodium (Protonix) 40 mg PO DAILY [facility] Last Admin: 07/18/17 12:42 Dose: 40 mg Polyethylene Glycol (Miralax) 17 gm PO DAILY [facility] Last Admin: 07/18/17 12:44 Dose: 17 gm Promethazine HCl (Phenergan) 25 mg PO 4X/DAY PRN PRN PRN Reason: NAUSEA Senna/Docusate Sodium (Senokot-S, Sarah-Colace) 1 tablet PO BID [facility] Last Admin: 07/18/17 20:04 Dose: 1 tablet Sodium Chloride () 5 - 30 ml IV UD PRN PRN Reason: SALINE FLUSH Last Admin: 07/17/17 06:57 Dose: 10 ml Assessment/Plan Active and Suspected Problems Fracture of fifth metatarsal bone of right foot (Acute) Fall (Acute) Gait instability (Acute) Pain in right ankle and joints of right foot (Acute) Patient is a 72 year old lady admitted following a fall while is undergoing dialysis she apparently tripped. Imaging studies demonstrated acute fracture involving the right fifth metatarsal bone nondisplaced admitted to regular nursing floor for pain management 1. Nondisplaced fracture involving the right fifth metatarsal bone secondary to a fall and worsened by patient's underlying osteoporosis admitted to regular nursing floor for pain management seen in consultation by podiatry also requested for PT and OT evaluation and clinical social work aide to assist with discharge planning patient scheduled to be discharged on 07/18/2017 2. End-stage renal disease patient is on hemodialysis consultation placed to nephrology for dialysis orders 3. Osteoporosis 4. Diabetes mellitus type 2 with complications including end-stage renal disease. Patient is on insulin did continue with home regimen also placed on Accu-Cheks before meals and at bedtime and cover with sliding scale insulin 5. Paroxysmal A. fib in sinus rhythm 6. CAD status post pains patient is on recommended medications 7. Hypothyroidism-patient is on levothyroxine home dose continued 8. Hypertension-blood pressure relatively on the low side antihypertensive regimen adjusted 9. Dyslipidemia-patient is on statin therapy, continued at home dose 10. DVT prophylaxis~heparin 11. Acute delirium do suspect pain medication induced delirium. Did scale back on her pain regimen ordered CT of the head for subsequent evaluation Code Visit Inpatient E&M: 56980 Subs Hosp L2
--- NOTE | 2017-07-19 08:32 | PCM.PN.REN ---
Patient Problems: Active and Suspected Problems Fracture of fifth metatarsal bone of right foot (Acute) Fall (Acute) Gait instability (Acute) Pain in right ankle and joints of right foot (Acute) Subjective: very confused, disoriented. Going to CT scan. - Physical Exam General: No apparent distress, Confused Lungs: Clear to auscultation Cardiovascular: Regular rate Extremities: No edema Vital Signs Temp Pulse Resp BP Pulse Ox 97.8 F 55 L 16 131/56 H 95 07/19/17 03:12 07/19/17 05:48 07/19/17 03:12 07/19/17 05:48 07/19/17 03:12 Oxygen Flow Rate 4 Oxygen Delivery Method Nasal Cannula Weight: 74.4 kg Intake and Output for Last 24 Hours 07/17/17 07/18/17 07/19/17 23:59 23:59 23:59 Intake Total 980 / 980 540 / 540 Output Total 150 / 150 Balance 830 / 830 540 / 540 POC Glucose 07/18/17 07/18/17 07/18/17 20:12 16:39 11:43 POC Glucose 110 171 H 105 Assessment/Plan Active and Suspected Problems Fracture of fifth metatarsal bone of right foot (Acute) Fall (Acute) Gait instability (Acute) Pain in right ankle and joints of right foot (Acute) 1. ESRD hemodialysis MWF 2. Hypertension stop hydralazine and doxazosin. 3. S/p mechanical fall with fifth metatarsal fracture rt foot 4. confusion, hold narcotics. CT head ordered 5. anemia hgb stable
[2017-07-19] MEDS: Aspirin 81 MG TAB.CHEW PO (09:32)
[2017-07-19] MEDS: Folic Acid/Vitamin B Comp W-C 1 Capsule 1 CAP PO (09:32)
[2017-07-19] MEDS: Calcium Acetate 667 MG Capsule 1334 MG PO ×2 (09:33→12:33)
[2017-07-19] MEDS: Gabapentin 100 MG Capsule PO (09:33)
[2017-07-19 09:44] VITALS: BP 114/46; PULSE 57; RESP 18; O2SAT 99
[2017-07-19] MEDS: Isosorbide Mononitrate 60 MG Tablet PO (09:50)
[2017-07-19] MEDS: Polyethylene Glycol 3350 17 GM PACKET PO (09:51)
[2017-07-19] MEDS: Nepro Liquid 120 ML LIQUID PO ×2 (09:52→14:50)
[2017-07-19] MEDS: Clopidogrel Bisulfate 75 MG Tablet PO (09:53)
[2017-07-19] MEDS: Pantoprazole Sodium 40 MG Tablet PO (09:53)
[2017-07-19] MEDS: Senna/Docusate Sodium 1 Tablet PO (09:53)
[2017-07-19 10:01] LABS: Bedside Glucose 79 mg/dL (70-110)
[2017-07-19 11:31] LABS: Bedside Glucose 130 mg/dL (70-110)
--- NOTE | 2017-07-19 12:34 | NURSING ---
Patient expresses to RN that she does not want to go to [facility] today due to continued confusion. Nurse to notify .
--- NOTE | 2017-07-19 13:02 | NURSING ---
Late lunch arrives.
--- NOTE | 2017-07-19 13:32 | CASEMGMT ---
Intro role of CM to patient and her family ( was in room). Reviewed MCR Appeal form, questions answered focusing on her current stay is covered, however if appeal returns that she is medically ready for dc and she does not discharge, then that the remaining time would be self-pay. answered questions re: current medical treatment (medications are po, pain is controlled, taking po) can be done @ SNF. Pt is agreeable to dc. Stephanie SW notified. Signed appeal form given to pt and copy to chart. Kyra SANTIAGON RN ACM
--- NOTE | 2017-07-19 13:35 | CASEMGMT ---
Addendum entered by Carmela Rowell 07/19/17 14:04: SW went back to room to speak w/ again about taking pt back and forth to dialysis, as this SW is concerned if he can truly do it, due to pt's debility. SW explained to pt and family the plan was for pt's to take pt back and forth to dialysis, and earlier in the week, pt was moving better, it seemed more realistic. Pt's granddaughter Shawanda Nieves([phone]) said to this SW quietly that pt's has dementia and he cannot take pt to and from dialysis. Granddaughter states she and her Sabino can take pt tomorrow, Shawanda is an RN and Sabino is an COMMISSION SPECIALIST. Granddaughter asked about [facility] setting up transport to and from dialysis. SW explained will call [facility]mer[facility] and ask. SW called [facility], explained that this SW just learned pt's has dementia and can't really transport pt to and from dialysis. SW explained pt's granddaughter and grandson in law can take pt tomorrow, and Rosmery said she will work on getting transport set up for next week. SW gave Rosmery the granddaughter's name and number to follow up. SW apologized for giving this information to her last minute, SW was not aware until a short time ago that pt's has dementia and is not really able to transport pt. Rosmery states understanding. No further needs at this time. MANDY Roman, ASH CONVEYOR OPERATOR Original Note: Pt is ready for discharge today. WILLIE Felipe spoke w/pt, she is agreeing to discharge today. MARGO set up a 3:30pm ambulance w/[facility]. SW spoke w/pt, granddaughter, and in room, let them know pt is set up to leave at 3:30pm. SW confirmed w/pt's he can take pt to dialysis tomorrow. SW mentioned to to bring home O2 as pt is on O2 here and may need it during transport. states understanding. SW called [facility] and let them know pt is leaving at 3:30pm. SW also left a message for Rosmery at [facility] to call this SW back, to let her know pt is exhibiting increased forgetfulness. MANDY Roman, ASH CONVEYOR OPERATOR
--- NOTE | 2017-07-19 14:02 | NURSING ---
Report called to Pretty at [facility] and call back number provided in case questions arise.
[2017-07-19 14:43] VITALS: BP 126/43; PULSE 67; RESP 16; TEMP 36.5; O2SAT 98
--- NOTE | 2017-07-19 14:44 | NURSING ---
Oxygen turned off.
[2017-07-19 14:46] VITALS: PULSE 63; O2SAT 97
[2017-07-19 14:48] VITALS: PULSE 64
== END 2017-07-19 15:30 | disposition skilled nursing facility (03) | DRG 562 ==
LOC: ED 09:50 → MS2 12:43
PROVIDERS: Internal Medicine Nephrology; Podiatrist; Admitting Provider Internal Medicine; Emergency Provider Emergency Medicine; Family Provider Nurse Practitioner; PCP Nurse Practitioner; Visit Provider Internal Medicine
DX: S92.354A Nondisplaced fracture of fifth metatarsal bone, right foot, initial encounter for closed fracture (principal); N18.6 End stage renal disease; E11.22 Type 2 diabetes mellitus with diabetic chronic kidney disease; I12.0 Hypertensive chronic kidney disease with stage 5 chronic kidney disease or end stage renal disease; N25.81 Secondary hyperparathyroidism of renal origin; W01.0XXA Fall on same level from slipping, tripping and stumbling without subsequent striking against object, initial encounter; D63.1 Anemia in chronic kidney disease; Z99.2 Dependence on renal dialysis; Y93.01 Activity, walking, marching and hiking; Y92.481 Parking lot as the place of occurrence of the external cause; M81.0 Age-related osteoporosis without current pathological fracture; E03.9 Hypothyroidism, unspecified; E78.5 Hyperlipidemia, unspecified; Z79.4 Long term (current) use of insulin; Z87.891 Personal history of nicotine dependence; I25.10 Atherosclerotic heart disease of native coronary artery without angina pectoris; R41.0 Disorientation, unspecified; T50.905A Adverse effect of unspecified drugs, medicaments and biological substances, initial encounter
CPT/HCPCS: 36415; 70450; 73030; 73564; 73610; 73630; 80048; 80069; 82306; 82962; 85025; 85027; 90937; 97161; 97166; 97530; 97802; 99285; A4216; G0257; J2405

== ENCOUNTER 2017-07-27 11:03 | Observation (INO) | payer MEDICARE, OTHER, SELFPAY ==
[2016-07-05 14:05] VITALS: BMI 27.1
[2017-07-27] VITALS (11 sets, daily range): BP systolic 111–157; BP diastolic 40–81; PULSE 46–66; RESP 14–20; TEMP 37.2–38.1; O2SAT 92–100; BMI 29.3; BMI 28.3
--- NOTE | 2017-07-27 11:41 | RAD_ITS ---
STUDY: X-RAY CHEST REASON FOR EXAM: Female, 72 years old. Nausea vomiting and diarrhea since last evening. TECHNIQUE: Single AP portable view of the chest. COMPARISON: Comparison is made with prior study dated May 01, 2017. FINDINGS: EKG electrodes are seen. Mild elevation of the right hemidiaphragm. Increased linear markings at the lung bases suggest bibasilar linear atelectasis. There is no demonstrated pleural abnormality. There is moderate cardiac enlargement. Normal mediastinum and roxy. Normal visualized pulmonary arteries. There is atherosclerotic calcification of the aortic arch with tortuosity. Normal visualized thoracic spine. There is degenerative osteoarthritis of the bilateral shoulders. There is no demonstrated abnormality of the visualized soft tissue structures of the upper abdomen. RAD/Chest 1 View (Portable) IMPRESSION: Cardiomegaly. Increased linear markings at the lung bases suggestive of bibasilar linear atelectasis. Electronically Signed: Eric Mckay MD at 12:54 EST Tel [phone], Service support ,
--- NOTE | 2017-07-27 11:41 | EKG12_ITS ---
Test Reason : Blood Pressure : / mmHG Vent. Rate : 051 BPM Atrial Rate : 051 BPM P-R Int : 136 ms QRS Dur : 092 ms QT Int : 430 ms P-R-T Axes : 000 010 111 degrees QTc Int : 396 ms Sinus bradycardia Nonspecific ST and T wave abnormality Abnormal ECG Confirmed by QUIRINO NEWMAN, NANCIE ([id number]), assistant film editor LEONCIO NAIR ([id number]) on 07/30/2017 2:54:39 PM Referred By: MICHAEL Confirmed By:NANCIE WIN MD
--- NOTE | 2017-07-27 11:47 | CT_ITS ---
STUDY: CTA CHEST REASON FOR EXAM: Female, 72 years old. Back pain and arm pain. History of aneurysm. RADIATION DOSAGE (If Supplied By Facility): CTDIvol = ( 21.63 ) mGy, DLP = ( 1240.50 ) mGycm TECHNIQUE: The examination was performed with the intravenous administration of 100ML ml of Isovue 370 contrast material. Post-processing of the angiographic images was performed, with multiplanar reformation and 3D reconstruction. Individualized dose optimization techniques were used for this CT. COMPARISON: None. FINDINGS: Calcifications seen in both lobes of the thyroid more prominent on the right side. Normal enhancement of the main pulmonary artery and right and left pulmonary arteries. Normal enhancement of the bilateral peripheral pulmonary arteries. There is no demonstrated pulmonary embolism. There is atherosclerotic calcification of the aortic arch with tortuosity. There is no demonstrated aortic dissection. There are calcifications of the coronary arteries. There are visualized mediastinal lymph nodes, which are within normal size limits, and with normal morphology. There are calcified left hilar lymph nodes. Normal visualized trachea and bronchi. The lungs are well expanded. There is evidence of increased linear markings at the lung bases with areas of confluence suggestive of a bibasilar atelectasis and/or scarring. This also evidence of calcified granulomas in both lower lobes. Normal pleura. Normal chest wall structures. There are degenerative changes of thoracic spine. Calcified splenic granulomas. IMPRESSION: Findings suggestive of atelectasis and/or scarring at the lung bases. There is no evidence of abdominal aortic aneurysm or dissection. Electronically Signed: Eric Mckay MD at 12:40 EST Tel [phone], Service support , STUDY: CT ABDOMEN AND PELVIS WITH CONTRAST REASON FOR EXAM: Female, 72 years old. Back pain. History of abdominal aortic aneurysm. RADIATION DOSAGE (If Supplied By Facility): CTDIvol = ( 21 ) mGy, DLP = ( 1240.5 ) mGycm TECHNIQUE: Transaxial images were obtained from the dome of the diaphragm to the symphysis pubis without oral contrast. 100ML ml of Isovue 370 contrast was administered. Sagittal and coronal images were reconstructed. Individualized dose optimization techniques were used for this CT. COMPARISON: None. FINDINGS: Increased markings at the lung bases with areas of confluence suggesting atelectasis and/or scarring. Calcified bibasilar granulomas. Cardiomegaly. Coronary artery calcification. Small amount of anterior perihepatic fluid. The gallbladder is not seen most likely secondary to prior cholecystectomy. There are multiple benign calcified granulomata of the spleen. Normal pancreas. Normal bilateral adrenal glands. Bilateral renal atrophy. Nonspecific bilateral perinephric stranding. The stomach is distended due to oral contrast and residual food particles. Normal small intestine. Normal colon. The appendix is visualized and appears normal. There is diffuse atherosclerotic calcification of the abdominal aorta and its major visceral branches, without a demonstrated aneurysm. Normal inferior vena cava. Normal retroperitoneum. Normal urinary bladder. There is absence of the uterus consistent with a prior hysterectomy. Normal abdominal wall. There are mild degenerative changes of the visualized lumbar spine. Degenerative changes of both hip joints. CT/CT ANGIO ABD&PEL W/O&W/DYE IMPRESSION: There is no evidence of abdominal aortic aneurysm. Electronically Signed: Eric Mckay MD at 12:44 EST Tel [phone], Service support ,
--- NOTE | 2017-07-27 11:47 | CT_ITS ---
STUDY: CTA CHEST REASON FOR EXAM: Female, 72 years old. Back pain and arm pain. History of aneurysm. RADIATION DOSAGE (If Supplied By Facility): CTDIvol = ( 21.63 ) mGy, DLP = ( 1240.50 ) mGycm TECHNIQUE: The examination was performed with the intravenous administration of 100ML ml of Isovue 370 contrast material. Post-processing of the angiographic images was performed, with multiplanar reformation and 3D reconstruction. Individualized dose optimization techniques were used for this CT. COMPARISON: None. FINDINGS: Calcifications seen in both lobes of the thyroid more prominent on the right side. Normal enhancement of the main pulmonary artery and right and left pulmonary arteries. Normal enhancement of the bilateral peripheral pulmonary arteries. There is no demonstrated pulmonary embolism. There is atherosclerotic calcification of the aortic arch with tortuosity. There is no demonstrated aortic dissection. There are calcifications of the coronary arteries. There are visualized mediastinal lymph nodes, which are within normal size limits, and with normal morphology. There are calcified left hilar lymph nodes. Normal visualized trachea and bronchi. The lungs are well expanded. There is evidence of increased linear markings at the lung bases with areas of confluence suggestive of a bibasilar atelectasis and/or scarring. This also evidence of calcified granulomas in both lower lobes. Normal pleura. Normal chest wall structures. There are degenerative changes of thoracic spine. Calcified splenic granulomas. IMPRESSION: Findings suggestive of atelectasis and/or scarring at the lung bases. There is no evidence of abdominal aortic aneurysm or dissection. Electronically Signed: Eric Mckay MD at 12:40 EST Tel [phone], Service support , STUDY: CT ABDOMEN AND PELVIS WITH CONTRAST REASON FOR EXAM: Female, 72 years old. Back pain. History of abdominal aortic aneurysm. RADIATION DOSAGE (If Supplied By Facility): CTDIvol = ( 21 ) mGy, DLP = ( 1240.5 ) mGycm TECHNIQUE: Transaxial images were obtained from the dome of the diaphragm to the symphysis pubis without oral contrast. 100ML ml of Isovue 370 contrast was administered. Sagittal and coronal images were reconstructed. Individualized dose optimization techniques were used for this CT. COMPARISON: None. FINDINGS: Increased markings at the lung bases with areas of confluence suggesting atelectasis and/or scarring. Calcified bibasilar granulomas. Cardiomegaly. Coronary artery calcification. Small amount of anterior perihepatic fluid. The gallbladder is not seen most likely secondary to prior cholecystectomy. There are multiple benign calcified granulomata of the spleen. Normal pancreas. Normal bilateral adrenal glands. Bilateral renal atrophy. Nonspecific bilateral perinephric stranding. The stomach is distended due to oral contrast and residual food particles. Normal small intestine. Normal colon. The appendix is visualized and appears normal. There is diffuse atherosclerotic calcification of the abdominal aorta and its major visceral branches, without a demonstrated aneurysm. Normal inferior vena cava. Normal retroperitoneum. Normal urinary bladder. There is absence of the uterus consistent with a prior hysterectomy. Normal abdominal wall. There are mild degenerative changes of the visualized lumbar spine. Degenerative changes of both hip joints. CT/CTA Chest W/WO Contrast IMPRESSION: There is no evidence of abdominal aortic aneurysm. Electronically Signed: Eric Mckay MD at 12:44 EST Tel [phone], Service support ,
[2017-07-27 12:01] LABS: Red Blood Cells-Urine 0 SEEN /hpf (0-5)
[2017-07-27 12:04] LABS: Color, Urine Yellow (Yellow); Glucose, Dipstick Normal (Normal); Ketone-Dipstick Negative (Negative); Leukocyte Esterase-Dipstick 25 /ul (Negative); Nitrite-Dipstick Negative (Negative); Occult Blood-Urine Negative /ul (Negative); Protein-Dipstick 30 mg/dl (Negative); Specific Gravity, Urine 1.015 (1.002-1.030); Urine Bilirubin Dipstick 3 mg/dL (Negative); Urine Clarity Sl. Cloudy (Clear); Urine Urobilinogen Normal (Normal)
[2017-07-27 12:09] LABS: Absolute Lymphocyte Count 0.58 X10^3/ul (0.83-4.51); Absolute Neutrophil Count 4.8 X10^3/uL (2.0-7.7); Basophil# 0.02 X10^3/uL; Basophil% 0.3 % (0-1); Differential Indicated SCAN CRITERIA MET; Eosinophil# 0.09 X10^3/uL; Eosinophils% 1.5 % (0-5); Hematocrit 32.3 % (37-47); Hemoglobin 9.9 g/dl (12.0-15.0); Lymphocyte # 0.58 X10^3/ul (4.0); Mean Corp Hgb Conc 30.7 g/gl (32-36); Mean Corpuscular Hgb 29.1 pg (27.0-32.0); Mean Platelet Vol. 9.7 fl (6.2-12.0); Monocyte# 0.28 X10^3/uL; Monocyte% 4.8 % (0-10); Neutrophil # 4.83 X10^3/uL (2.7-7.7); Neutrophil % 83.1 % (47-70); POSITIVE COUNT NO; POSITIVE DIFFERENTIAL YES; POSITIVE MORPHOLOGY NO; Platelet Count 167 K/mm3 (150-450); RBC Distribution Width CV 17.7 % (11.6-14.6); RBC Distribution Width SD 60.2 fl (35.1-43.9); White Blood Count 5.8 K/mm3 (4.4-11.0)
[2017-07-27 12:19] LABS: Squamous Epithelial Cells - UA 0-5 SEEN /hpf (5-10); White Blood Cells 0-5 SEEN /hpf (0-5)
[2017-07-27 12:20] LABS: Bacteria RARE /hpf (None Seen); Mucous, Urine RARE /hpf (<or=2+)
--- NOTE | 2017-07-27 13:04 | ED.VISSUMM ---
- ER Visit Summary Date of Service: 07/27/17 Chief Complaint: Nausea, vomiting and diarrhea History of Present Illness: The patient is a 72 F dialysis patient who presents for nausea, vomiting and diarrhea since last night. Patient is also complaining of right shoulder pain, shortness of breath and chest pain. She is on home oxygen at night. Patient receives hemodialysis on Sunday, Sunday and Sunday. She denies fever, congestion, sore throat, rhinorrhea, urinary symptoms, neck pain or back pain. History of end-stage renal disease, coronary artery disease, diabetes and hypertension. Physical Examination: Vital signs: Her 100.1, hemodynamically stable, 92% on room air General: well nourished, well developed, in no distress Skin: warm, dry, no rash, no pallor HEENT: normocephalic and atraumatic; PERRL, EOMI, dry mucous membranes Cardiovascular: bradycardic rate and rhythm with holosystolic murmurs Respiratory: No increased work of breathing, lungs are clear to auscultation bilaterally, no rales, rhonchi or wheezing Abdominal: Abdomen is soft, tender with normoactive bowel sounds, aorta palpable with very light palpation at the epigastrium, concern for pulsatile mass, no guarding or rebound MSK: Moves all extremities, no deformities, normal strength, fistula in the left upper extremity with palpable thrill Neuro: Awake and alert, oriented ?4. No facial droop, sensation and motor function intact and symmetric Test Results: Abnormal Lab Results 07/27/17 07/27/17 07/27/17 11:30 11:30 11:30 WBC 5.8 RBC 3.40 L Hgb 9.9 L Hct 32.3 L MCV 95.0 MCH 29.1 MCHC 30.7 L RDW 17.7 H RDW Differential 60.2 H Plt Count 167 MPV 9.7 Immature Gran % (Auto) 0.300 Neut % (Auto) 83.1 H Lymph % (Auto) 10.0 L [place] % (Auto) 4.8 Eos % (Auto) 1.5 Baso % (Auto) 0.3 Absolute Neuts (auto) 4.8 Absolute Lymphs (auto) 0.58 L Total Counted Not Reportable Differential Comment Sodium Cancelled Potassium Cancelled Chloride Cancelled Carbon Dioxide Cancelled Anion Gap Cancelled BUN Cancelled Creatinine Cancelled Estim Creat Clear Calc Cancelled Est GFR (MDRD) Af Amer Cancelled Est GFR (MDRD) Non-Af Cancelled BUN/Creatinine Ratio Cancelled Glucose Cancelled Lactic Acid Cancelled Calcium Cancelled Total Bilirubin Cancelled AST Cancelled ALT Cancelled Alkaline Phosphatase Cancelled Troponin I Cancelled Total Protein Cancelled Albumin Cancelled Globulin Cancelled Albumin/Globulin Ratio Cancelled Lipase Cancelled Urine Color Urine Clarity Urine pH Ur Specific [place] Urine Protein Urine Glucose (UA) Urine Ketones Urine Occult Blood Urine Nitrite Urine Bilirubin Urine Urobilinogen Ur Leukocyte Esterase Urine RBC Urine WBC Ur Squamous Epith Cells Urine Bacteria Urine Mucus 07/27/17 07/27/17 07/27/17 11:30 12:33 12:33 WBC RBC Hgb Hct MCV MCH MCHC RDW RDW Differential Plt Count MPV Immature Gran % (Auto) Neut % (Auto) Lymph % (Auto) [place] % (Auto) Eos % (Auto) Baso % (Auto) Absolute Neuts (auto) Absolute Lymphs (auto) Total Counted Differential Comment Sodium 137 Potassium 4.9 Chloride 104 Carbon Dioxide 24.0 Anion Gap 9 BUN 41 H Creatinine 3.36 H Estim Creat Clear Calc 13.22 Est GFR (MDRD) Af Amer 17 L Est GFR (MDRD) Non-Af 14 L BUN/Creatinine Ratio 12.2 Glucose 78 Lactic Acid 1.5 Calcium 6.5 L* Total Bilirubin 0.30 AST 24 ALT 12 L Alkaline Phosphatase 74 Troponin I 0.04 Total Protein 5.1 L Albumin 2.0 L Globulin 3.1 Albumin/Globulin Ratio 0.6 L Lipase 57 L Urine Color Yellow Urine Clarity Sl. Cloudy Urine pH 5.0 Ur Specific [place] 1.015 Urine Protein 30 H Urine Glucose (UA) Normal Urine Ketones Negative Urine Occult Blood Negative Urine Nitrite Negative Urine Bilirubin 3 H Urine Urobilinogen Normal Ur Leukocyte Esterase 25 H Urine RBC 0 SEEN Urine WBC 0-5 SEEN Ur Squamous Epith Cells 0-5 SEEN Urine Bacteria RARE Urine Mucus RARE Emergency Department Course and Treatment: Patient is presenting complaining of nausea, vomiting, diarrhea, chest pain and shortness of breath and with right shoulder pain. Her exam shows a palpable aortic pulse in the superficial epigastrium despite patient having abdominal obesity. This is concerning for possible aneurysm versus dissection. She was given gentle hydration, as she appears dehydrated on exam. She was discussed with her grain combine driver Dr. Crawley who will arrange dialysis for the patient today and was okay with CT contrast dye to evaluate her chest abdomen and pelvis. CTA showed no pulmonary embolism, no dissection or aneurysm. It showed no acute pathology to lean patient's GI symptoms. EKG showed sinus rhythm without ischemia or ectopy. Chest x-ray showed atelectasis but no infiltrates. Patient began having nausea again and was given Phenergan as treatment. Because patient is dehydrated on exam yet is a dialysis patient, she will be admitted for management of her gastrointestinal symptoms, dehydration and end-stage renal disease needing hemodialysis. Patient was discussed with Dr. Carleen Martino for admission. Treatment Plan: [] Disposition: [] Impression: Dehydration, end-stage renal disease, nausea vomiting and diarrhea, mild hypocalcemia This note was generated with [employer] dictation software. It may contain incorrect words, spelling, and punctuation that were not noted in review of the chart prior to signing ED Disposition - Plan for ED Patient: Disposition: Acute Care Hospital [facility] Chief Complaint: Nausea/Vomiting/Diarrhea
--- NOTE | 2017-07-27 13:07 | ED.DCSUM_ITS ---
- ER Visit Summary Date of Service: 07/27/17 Chief Complaint: Nausea, vomiting and diarrhea History of Present Illness: The patient is a 72 F dialysis patient who presents for nausea, vomiting and diarrhea since last night. Patient is also complaining of right shoulder pain, shortness of breath and chest pain. She is on home oxygen at night. Patient receives hemodialysis on Sunday, Sunday and Sunday. She denies fever, congestion, sore throat, rhinorrhea, urinary symptoms, neck pain or back pain. History of end-stage renal disease, coronary artery disease, diabetes and hypertension. Physical Examination: Vital signs: Her 100.1, hemodynamically stable, 92% on room air General: well nourished, well developed, in no distress Skin: warm, dry, no rash, no pallor HEENT: normocephalic and atraumatic; PERRL, EOMI, dry mucous membranes Cardiovascular: bradycardic rate and rhythm with holosystolic murmurs Respiratory: No increased work of breathing, lungs are clear to auscultation bilaterally, no rales, rhonchi or wheezing Abdominal: Abdomen is soft, tender with normoactive bowel sounds, aorta palpable with very light palpation at the epigastrium, concern for pulsatile mass, no guarding or rebound MSK: Moves all extremities, no deformities, normal strength, fistula in the left upper extremity with palpable thrill Neuro: Awake and alert, oriented ?4. No facial droop, sensation and motor function intact and symmetric Test Results: Abnormal Lab Results 07/27/17 07/27/17 07/27/17 11:30 11:30 11:30 WBC 5.8 RBC 3.40 L Hgb 9.9 L Hct 32.3 L MCV 95.0 MCH 29.1 MCHC 30.7 L RDW 17.7 H RDW Differential 60.2 H Plt Count 167 MPV 9.7 Immature Gran % (Auto) 0.300 Neut % (Auto) 83.1 H Lymph % (Auto) 10.0 L [place] % (Auto) 4.8 Eos % (Auto) 1.5 Baso % (Auto) 0.3 Absolute Neuts (auto) 4.8 Absolute Lymphs (auto) 0.58 L Total Counted Not Reportable Differential Comment Sodium Cancelled Potassium Cancelled Chloride Cancelled Carbon Dioxide Cancelled Anion Gap Cancelled BUN Cancelled Creatinine Cancelled Estim Creat Clear Calc Cancelled Est GFR (MDRD) Af Amer Cancelled Est GFR (MDRD) Non-Af Cancelled BUN/Creatinine Ratio Cancelled Glucose Cancelled Lactic Acid Cancelled Calcium Cancelled Total Bilirubin Cancelled AST Cancelled ALT Cancelled Alkaline Phosphatase Cancelled Troponin I Cancelled Total Protein Cancelled Albumin Cancelled Globulin Cancelled Albumin/Globulin Ratio Cancelled Lipase Cancelled Urine Color Urine Clarity Urine pH Ur Specific [place] Urine Protein Urine Glucose (UA) Urine Ketones Urine Occult Blood Urine Nitrite Urine Bilirubin Urine Urobilinogen Ur Leukocyte Esterase Urine RBC Urine WBC Ur Squamous Epith Cells Urine Bacteria Urine Mucus 07/27/17 07/27/17 07/27/17 11:30 12:33 12:33 WBC RBC Hgb Hct MCV MCH MCHC RDW RDW Differential Plt Count MPV Immature Gran % (Auto) Neut % (Auto) Lymph % (Auto) [place] % (Auto) Eos % (Auto) Baso % (Auto) Absolute Neuts (auto) Absolute Lymphs (auto) Total Counted Differential Comment Sodium 137 Potassium 4.9 Chloride 104 Carbon Dioxide 24.0 Anion Gap 9 BUN 41 H Creatinine 3.36 H Estim Creat Clear Calc 13.22 Est GFR (MDRD) Af Amer 17 L Est GFR (MDRD) Non-Af 14 L BUN/Creatinine Ratio 12.2 Glucose 78 Lactic Acid 1.5 Calcium 6.5 L* Total Bilirubin 0.30 AST 24 ALT 12 L Alkaline Phosphatase 74 Troponin I 0.04 Total Protein 5.1 L Albumin 2.0 L Globulin 3.1 Albumin/Globulin Ratio 0.6 L Lipase 57 L Urine Color Yellow Urine Clarity Sl. Cloudy Urine pH 5.0 Ur Specific [place] 1.015 Urine Protein 30 H Urine Glucose (UA) Normal Urine Ketones Negative Urine Occult Blood Negative Urine Nitrite Negative Urine Bilirubin 3 H Urine Urobilinogen Normal Ur Leukocyte Esterase 25 H Urine RBC 0 SEEN Urine WBC 0-5 SEEN Ur Squamous Epith Cells 0-5 SEEN Urine Bacteria RARE Urine Mucus RARE Emergency Department Course and Treatment: Patient is presenting complaining of nausea, vomiting, diarrhea, chest pain and shortness of breath and with right shoulder pain. Her exam shows a palpable aortic pulse in the superficial epigastrium despite patient having abdominal obesity. This is concerning for possible aneurysm versus dissection. She was given gentle hydration, as she appears dehydrated on exam. She was discussed with her active directory systems administrator Dr. Crawley who will arrange dialysis for the patient today and was okay with CT contrast dye to evaluate her chest abdomen and pelvis. CTA showed no pulmonary embolism , no dissection or aneurysm. It showed no acute pathology to lean patient's GI symptoms. EKG showed sinus rhythm without ischemia or ectopy. Chest x-ray showed atelectasis but no infiltrates. Patient began having nausea again and was given Phenergan as treatment. Because patient is dehydrated on exam yet is a dialysis patient, she will be admitted for management of her gastrointestinal symptoms, dehydration and end-stage renal disease needing hemodialysis. Patient was discussed with Dr. Carleen Martino for admission. Treatment Plan: [] Disposition: [] Impression: Dehydration, end-stage renal disease, nausea vomiting and diarrhea, mild hypocalcemia This note was generated with [employer] dictation software. It may contain incorrect words, spelling, and punctuation that were not noted in review of the chart prior to signing ED Disposition - Plan for ED Patient: Disposition: Acute Care [facility] Chief Complaint: Nausea/Vomiting/Diarrhea
[2017-07-27 13:30] LABS: Lactic Acid 1.5 mmol/L (0.4-2.0)
[2017-07-27 13:34] LABS: ALB/GLOB Ratio 0.6 RATIO (0.9-2.4); AST(SGOT) 24 U/L (15-37); Alanine Aminotransfer ALT/SGPT 12 U/L (13-56); Alkaline Phosphatase 74 U/L (45-117); Anion Gap 9 (5-15); BUN 41 mg/dL (7-18); BUN/Creat Ratio 12.2 RATIO (10-20); Calcium,Total 6.5 mg/dL (8.5-10.1); Chloride 104 mmol/L (98-107); Creatinine, Serum 3.36 mg/dL (0.55-1.02); EST Glomerular Filtration Rate 14 mL/min (>60); Est Glom Filt Rate - Afr Amer 17 mL/min (>60); Estimated Creatinine Clearance 13.22 ml/min; Globulin 3.1 g/dL (2.2-4.2); Glucose 78 mg/dL (74-106); Lipase 57 U/L (73-393); Potassium 4.9 mmol/L (3.5-5.1); Protein, Total 5.1 g/dL (6.4-8.2); Sodium Level 137 mmol/L (136-145)
--- NOTE | 2017-07-27 14:28 | PCM.CONS.R ---
Consultation - Renal 07/27/17 PCP/ Referring MD: Requesting physician: [] Primary care physician: Robyn Sharma Reason for Consultation:: ESRD dialysis mgmt, dialysis today - History of Present Illness History of Present Illness: The patient is a 72 year old F with end-stage renal disease due to diabetes on hemodialysis Sunday, Sunday, Sunday at [place] dialysis unit. She is due for dialysis today. She presented to the emergency room with nausea vomiting, abdominal pain. She had profuse diarrhea last night. Last episode was this morning with nausea and vomiting. She had a CT angiogram of her lungs and abdomen with IV contrast. This did not show any pulmonary embolus or dissection of the aorta. She has a history of increased fluid gains between her dialysis. She has mild lower extremity edema. She had episode of chest pain, shortness of breath along with her other symptoms. She is uncomfortable, restless in the emergency room during my examination. Her oxygenation was stable. She was recently discharged from the hospital following a fall with ankle fracture with subsequent transferred to [facility] for rehab at [facility]. Continues to have right ankle discomfort. She has been rarely using narcotics for her pain management according to the patient. Had some confusion prior to discharge to ECF during last hospitalization due to narcotic use. CT of the head was negative at that time. She will be admitted for continued monitoring. Her dialysis is arranged for tonight. - Allergies Allergies: Allergies lisinopril Allergy (Verified 07/27/17 11:05) Swelling nebivolol HCl [From Bystolic] Adverse Reaction (Verified 07/27/17 11:05) Other BRADYCARDIA - Past Medical History Past Medical History (Chronic Problems): Chronic Problems Other specified peripheral vascular diseases (Chronic) Congenital coronary artery anomaly (Chronic) S/P PTCA (percutaneous transluminal coronary angioplasty) (Chronic) Bradycardia (Chronic) CAD (coronary artery disease) (Chronic) Diabetes mellitus, type II (Chronic) Hyperlipidemia (Chronic) Hypothyroidism (Chronic) Anemia in chronic kidney disease (Chronic) Hypertension (Chronic) End stage renal disease on dialysis (Chronic) - Past Surgical History Surgical History: angioplasty, hysterectomy, total knee arthroplasty, - - cardiac stents, AVF - Social History Marital Status: Smoking Status: Former smoker - Family History Maternal History Items: Cancer - uterine Paternal History Items: Cancer Sibling History Items: Diabetes Review of Systems Constitutional: Reports: Anorexia, Malaise, Weakness, Fatigue. Denies: Chills, Fever Cardiovascular: Reports: Chest Pain, Edema. Denies: Syncope Respiratory: Reports: Shortness of Breath. Denies: Cough Gastrointestinal: Reports: Abdominal Pain, Diarrhea, Nausea, Vomiting. Denies: Hematemesis, Hematochezia Genitourinary: Reports: Dysuria Musculoskeletal: Reports: Back Pain, - - Right ankle pain in rehab at [facility] Skin: Denies: Rash Neurological: Reports: - - Generalized weakness. Denies: Tremor, Seizures Hematologic/ Lymphatic: Reports: Anemia. Denies: Hx of blood clot - Physical Exam General: Alert, Oriented x3, Cooperative, - - Abdominal discomfort HEENT: PERRLA, EOMI Oral: Moist Mucosa Neck: Supple, JVD, Bilateral Lungs: Clear to auscultation, Diminished Cardiovascular: Bradycardic Abdomen: Bowel Sounds Present, Soft, Distended, Tender - Diffusely Extremities: Edema Skin: No rashes Musculoskeletal: Muscle Wasting, - Neurological: - - Generalized weakness Psych/Mental Status: Flat Affect, Depressed, Alert and oriented to time, place, person, mood and affect Vital Signs Temp Pulse Resp BP Pulse Ox 99.2 F H 55 L 19 H 144/59 H 95 07/27/17 14:16 07/27/17 14:16 07/27/17 14:16 07/27/17 14:16 07/27/17 14:16 Oxygen Flow Rate (L/min) 2 Oxygen Delivery Method Nasal Cannula Weight: 80 kg Body Mass Index (BMI) 29.3 Laboratory Tests Past 24 Hrs 07/27/17 07/27/17 07/27/17 11:30 11:30 11:30 WBC 5.8 RBC 3.40 L Hgb 9.9 L Hct 32.3 L MCV 95.0 MCH 29.1 MCHC 30.7 L RDW 17.7 H RDW Differential 60.2 H Plt Count 167 MPV 9.7 Immature Gran % (Auto) 0.300 Neut % (Auto) 83.1 H Lymph % (Auto) 10.0 L [place] % (Auto) 4.8 Eos % (Auto) 1.5 Baso % (Auto) 0.3 Absolute Neuts (auto) 4.8 Absolute Lymphs (auto) 0.58 L Total Counted Not Reportable Differential Comment Sodium Cancelled Potassium Cancelled Chloride Cancelled Carbon Dioxide Cancelled Anion Gap Cancelled BUN Cancelled Creatinine Cancelled Estim Creat Clear Calc Cancelled Est GFR (MDRD) Af Amer Cancelled Est GFR (MDRD) Non-Af Cancelled BUN/Creatinine Ratio Cancelled Glucose Cancelled Lactic Acid Cancelled Calcium Cancelled Total Bilirubin Cancelled AST Cancelled ALT Cancelled Alkaline Phosphatase Cancelled Troponin I Cancelled Total Protein Cancelled Albumin Cancelled Globulin Cancelled Albumin/Globulin Ratio Cancelled Lipase Cancelled Urine Color Urine Clarity Urine pH Ur Specific [place] Urine Protein Urine Glucose (UA) Urine Ketones Urine Occult Blood Urine Nitrite Urine Bilirubin Urine Urobilinogen Ur Leukocyte Esterase Urine RBC Urine WBC Ur Squamous Epith Cells Urine Bacteria Urine Mucus 07/27/17 07/27/17 07/27/17 11:30 12:33 12:33 WBC RBC Hgb Hct MCV MCH MCHC RDW RDW Differential Plt Count MPV Immature Gran % (Auto) Neut % (Auto) Lymph % (Auto) [place] % (Auto) Eos % (Auto) Baso % (Auto) Absolute Neuts (auto) Absolute Lymphs (auto) Total Counted Differential Comment Sodium 137 Potassium 4.9 Chloride 104 Carbon Dioxide 24.0 Anion Gap 9 BUN 41 H Creatinine 3.36 H Estim Creat Clear Calc 13.22 Est GFR (MDRD) Af Amer 17 L Est GFR (MDRD) Non-Af 14 L BUN/Creatinine Ratio 12.2 Glucose 78 Lactic Acid 1.5 Calcium 6.5 L* Total Bilirubin 0.30 AST 24 ALT 12 L Alkaline Phosphatase 74 Troponin I 0.04 Total Protein 5.1 L Albumin 2.0 L Globulin 3.1 Albumin/Globulin Ratio 0.6 L Lipase 57 L Urine Color Yellow Urine Clarity Sl. Cloudy Urine pH 5.0 Ur Specific [place] 1.015 Urine Protein 30 H Urine Glucose (UA) Normal Urine Ketones Negative Urine Occult Blood Negative Urine Nitrite Negative Urine Bilirubin 3 H Urine Urobilinogen Normal Ur Leukocyte Esterase 25 H Urine RBC 0 SEEN Urine WBC 0-5 SEEN Ur Squamous Epith Cells 0-5 SEEN Urine Bacteria RARE Urine Mucus RARE Clinical Impression(s) from Imaging Studies Chest X-Ray 07/27/17 11:41 IMPRESSION: Cardiomegaly. Increased linear markings at the lung bases suggestive of bibasilar linear atelectasis. Electronically Signed: Eric Mckay MD at 12:54 EST Tel [phone], Service support , Abdomen/Pelvis CTA 07/27/17 11:47 IMPRESSION: There is no evidence of abdominal aortic aneurysm. Electronically Signed: Eric Mckay MD at 12:44 EST Tel [phone], Service support , Chest CTA 07/27/17 11:47 IMPRESSION: There is no evidence of abdominal aortic aneurysm. Electronically Signed: Eric Mckay MD at 12:44 EST Tel [phone], Service support , Assessment/Plan 1. ESRD hemodialysis Sunday, Sunday, Sunday. Dialysis arranged for later today. Follow chronic orders fluid removal as tolerated. 2. Acute abdominal pain with nausea and vomiting. Abdomen distended suspect ileus from pain medications versus gastroenteritis. Patient with low-grade fever with mild distended abdomen. CT abdomen was negative for aortic dissection with negative for PE on CT angiogram of the lungs. Amylase wnl 3. Recent hospitalization for right ankle fracture status post mechanical fall. Cautious use of narcotic therapy. History of confusion from narcotic use. 4. Diarrhea consider stool for C. difficile with recent hospitalization. 5. Anemia hemoglobin stable 6. hypoCalcemia recommend to repeat her calcium level and supplement as needed
--- NOTE | 2017-07-27 14:39 | CON.PCM_ITS ---
Consultation - Renal 07/27/17 PCP/ Referring MD: Requesting physician: [] Primary care physician: Robyn Sharma Reason for Consultation:: ESRD dialysis mgmt, dialysis today - History of Present Illness History of Present Illness: The patient is a 72 year old F with end-stage renal disease due to diabetes on hemodialysis Sunday, Sunday, Sunday at [place] dialysis unit. She is due for dialysis today. She presented to the emergency room with nausea vomiting, abdominal pain. She had profuse diarrhea last night. Last episode was this morning with nausea and vomiting. She had a CT angiogram of her lungs and abdomen with IV contrast. This did not show any pulmonary embolus or dissection of the aorta. She has a history of increased fluid gains between her dialysis. She has mild lower extremity edema. She had episode of chest pain, shortness of breath along with her other symptoms. She is uncomfortable, restless in the emergency room during my examination. Her oxygenation was stable. She was recently discharged from the hospital following a fall with ankle fracture with subsequent transferred to [facility] for rehab at [facility]. Continues to have right ankle discomfort. She has been rarely using narcotics for her pain management according to the patient. Had some confusion prior to discharge to ECF during last hospitalization due to narcotic use. CT of the head was negative at that time. She will be admitted for continued monitoring. Her dialysis is arranged for tonight. - Allergies Allergies: Allergies lisinopril Allergy (Verified 07/27/17 11:05) Swelling nebivolol HCl [From Bystolic] Adverse Reaction (Verified 07/27/17 11:05) Other BRADYCARDIA - Past Medical History Past Medical History (Chronic Problems): Chronic Problems Other specified peripheral vascular diseases (Chronic) Congenital coronary artery anomaly (Chronic) S/P PTCA (percutaneous transluminal coronary angioplasty) (Chronic) Bradycardia (Chronic) CAD (coronary artery disease) (Chronic) Diabetes mellitus, type II (Chronic) Hyperlipidemia (Chronic) Hypothyroidism (Chronic) Anemia in chronic kidney disease (Chronic) Hypertension (Chronic) End stage renal disease on dialysis (Chronic) - Past Surgical History Surgical History: angioplasty, hysterectomy, total knee arthroplasty, - - cardiac stents, AVF - Social History Marital Status: Smoking Status: Former smoker - Family History Maternal History Items: Cancer - uterine Paternal History Items: Cancer Sibling History Items: Diabetes Review of Systems Constitutional: Reports: Anorexia, Malaise, Weakness, Fatigue. Denies: Chills, Fever Cardiovascular: Reports: Chest Pain, Edema. Denies: Syncope Respiratory: Reports: Shortness of Breath. Denies: Cough Gastrointestinal: Reports: Abdominal Pain, Diarrhea, Nausea, Vomiting. Denies: Hematemesis, Hematochezia Genitourinary: Reports: Dysuria Musculoskeletal: Reports: Back Pain, - - Right ankle pain in rehab at [facility] Skin: Denies: Rash Neurological: Reports: - - Generalized weakness. Denies: Tremor, Seizures Hematologic/ Lymphatic: Reports: Anemia. Denies: Hx of blood clot - Physical Exam General: Alert, Oriented x3, Cooperative, - - Abdominal discomfort HEENT: PERRLA, EOMI Oral: Moist Mucosa Neck: Supple, JVD, Bilateral Lungs: Clear to auscultation, Diminished Cardiovascular: Bradycardic Abdomen: Bowel Sounds Present, Soft, Distended, Tender - Diffusely Extremities: Edema Skin: No rashes Musculoskeletal: Muscle Wasting, - Neurological: - - Generalized weakness Psych/Mental Status: Flat Affect, Depressed, Alert and oriented to time, place, person, mood and affect Vital Signs Temp Pulse Resp BP Pulse Ox 99.2 F H 55 L 19 H 144/59 H 95 07/27/17 14:16 07/27/17 14:16 07/27/17 14:16 07/27/17 14:16 07/27/17 14:16 Oxygen Flow Rate (L/min) 2 Oxygen Delivery Method Nasal Cannula Weight: 80 kg Body Mass Index (BMI) 29.3 Laboratory Tests Past 24 Hrs 07/27/17 07/27/17 07/27/17 11:30 11:30 11:30 WBC 5.8 RBC 3.40 L Hgb 9.9 L Hct 32.3 L MCV 95.0 MCH 29.1 MCHC 30.7 L RDW 17.7 H RDW Differential 60.2 H Plt Count 167 MPV 9.7 Immature Gran % (Auto) 0.300 Neut % (Auto) 83.1 H Lymph % (Auto) 10.0 L [place] % (Auto) 4.8 Eos % (Auto) 1.5 Baso % (Auto) 0.3 Absolute Neuts (auto) 4.8 Absolute Lymphs (auto) 0.58 L Total Counted Not Reportable Differential Comment Sodium Cancelled Potassium Cancelled Chloride Cancelled Carbon Dioxide Cancelled Anion Gap Cancelled BUN Cancelled Creatinine Cancelled Estim Creat Clear Calc Cancelled Est GFR (MDRD) Af Amer Cancelled Est GFR (MDRD) Non-Af Cancelled BUN/Creatinine Ratio Cancelled Glucose Cancelled Lactic Acid Cancelled Calcium Cancelled Total Bilirubin Cancelled AST Cancelled ALT Cancelled Alkaline Phosphatase Cancelled Troponin I Cancelled Total Protein Cancelled Albumin Cancelled Globulin Cancelled Albumin/Globulin Ratio Cancelled Lipase Cancelled Urine Color Urine Clarity Urine pH Ur Specific [place] Urine Protein Urine Glucose (UA) Urine Ketones Urine Occult Blood Urine Nitrite Urine Bilirubin Urine Urobilinogen Ur Leukocyte Esterase Urine RBC Urine WBC Ur Squamous Epith Cells Urine Bacteria Urine Mucus 07/27/17 07/27/17 07/27/17 11:30 12:33 12:33 WBC RBC Hgb Hct MCV MCH MCHC RDW RDW Differential Plt Count MPV Immature Gran % (Auto) Neut % (Auto) Lymph % (Auto) [place] % (Auto) Eos % (Auto) Baso % (Auto) Absolute Neuts (auto) Absolute Lymphs (auto) Total Counted Differential Comment Sodium 137 Potassium 4.9 Chloride 104 Carbon Dioxide 24.0 Anion Gap 9 BUN 41 H Creatinine 3.36 H Estim Creat Clear Calc 13.22 Est GFR (MDRD) Af Amer 17 L Est GFR (MDRD) Non-Af 14 L BUN/Creatinine Ratio 12.2 Glucose 78 Lactic Acid 1.5 Calcium 6.5 L* Total Bilirubin 0.30 AST 24 ALT 12 L Alkaline Phosphatase 74 Troponin I 0.04 Total Protein 5.1 L Albumin 2.0 L Globulin 3.1 Albumin/Globulin Ratio 0.6 L Lipase 57 L Urine Color Yellow Urine Clarity Sl. Cloudy Urine pH 5.0 Ur Specific [place] 1.015 Urine Protein 30 H Urine Glucose (UA) Normal Urine Ketones Negative Urine Occult Blood Negative Urine Nitrite Negative Urine Bilirubin 3 H Urine Urobilinogen Normal Ur Leukocyte Esterase 25 H Urine RBC 0 SEEN Urine WBC 0-5 SEEN Ur Squamous Epith Cells 0-5 SEEN Urine Bacteria RARE Urine Mucus RARE Clinical Impression(s) from Imaging Studies Chest X-Ray 07/27/17 11:41 IMPRESSION: Cardiomegaly. Increased linear markings at the lung bases suggestive of bibasilar linear atelectasis. Electronically Signed: Eric Mckay MD at 12:54 EST Tel [phone], Service support , Abdomen/Pelvis CTA 07/27/17 11:47 IMPRESSION: There is no evidence of abdominal aortic aneurysm. Electronically Signed: Eric Mckay MD at 12:44 EST Tel [phone], Service support , Chest CTA 07/27/17 11:47 IMPRESSION: There is no evidence of abdominal aortic aneurysm. Electronically Signed: Eric Mckay MD at 12:44 EST Tel [phone], Service support , Assessment/Plan 1. ESRD hemodialysis Sunday, Sunday, Sunday. Dialysis arranged for later today. Follow chronic orders fluid removal as tolerated. 2. Acute abdominal pain with nausea and vomiting. Abdomen distended suspect ileus from pain medications versus gastroenteritis. Patient with low-grade fever with mild distended abdomen. CT abdomen was negative for aortic dissection with negative for PE on CT angiogram of the lungs. Amylase wnl 3. Recent hospitalization for right ankle fracture status post mechanical fall. Cautious use of narcotic therapy. History of confusion from narcotic use. 4. Diarrhea consider stool for C. difficile with recent hospitalization. 5. Anemia hemoglobin stable 6. hypoCalcemia recommend to repeat her calcium level and supplement as needed
--- NOTE | 2017-07-27 15:20 | PCM.HP.STD ---
Problem List (1) Ileus Status: Acute (2) CAD (coronary artery disease) Status: Chronic Qualifiers: Coronary Disease-Associated Artery/Lesion type: [place] artery (3) Diabetes mellitus, type II Status: Chronic (4) Hyperlipidemia Status: Chronic (5) Hypothyroidism Status: Chronic (6) Anemia in chronic kidney disease Status: Chronic (7) Hypertension Status: Chronic (8) End stage renal disease on dialysis Status: Chronic (9) Afib Status: Chronic History of Present Illness Date of Admission: 07/27/17 Chief Complaint: N/V/D The patient is a 72 year old F with a hx of ESRD, CAD, paroxysmal AF, T2DM, HTN, HLD, hypothroidism, who [facility] for nausea vomiting, and diarrhea. She missed dialysis today 2/2 these symptoms. She has been in the SNF since her last admission for a right fifth metatarsal fracture. She developed diarrhea last night and had more this AM with nausea and vomiting. Today in the ER she had significant abdominal pain. Currently she is very lethargic and not opening her eyes, and is too sleep to stay awake to answer questions. She received phenergan in the ER. She did say yes when asked if she had abdominal pain and when I pushed on her abdomen. In the ER she underwent a CTA of the chest and abdomen which were negative. [] Past Medical History Past Medical History (Chronic Problems): Chronic Problems Other specified peripheral vascular diseases (Chronic) Afib (Chronic) Congenital coronary artery anomaly (Chronic) S/P PTCA (percutaneous transluminal coronary angioplasty) (Chronic) Bradycardia (Chronic) CAD (coronary artery disease) (Chronic) Diabetes mellitus, type II (Chronic) Hyperlipidemia (Chronic) Hypothyroidism (Chronic) Anemia in chronic kidney disease (Chronic) Hypertension (Chronic) End stage renal disease on dialysis (Chronic) Allergies lisinopril Allergy (Verified 07/27/17 11:05) Swelling nebivolol HCl [From [email or web address]] Adverse Reaction (Verified 07/27/17 15:05) bradycardia BRADYCARDIA Home Medications: Ambulatory Orders Medication Instructions Recorded Acetaminophen [Tylenol] 650 mg PO Q4H PRN 07/27/17 Aspirin [Aspirin, Baby] 81 mg PO DAILY@0800 07/27/17 Atorvastatin Calcium [Lipitor] 40 mg PO QHS 07/27/17 B Complex W-C No.20/Folic Acid 1 mg PO DAILY 07/27/17 [Nephrocaps Softgel] Carvedilol [Coreg] 12.5 mg PO BID 07/27/17 Cholecalciferol (Vitamin D3) 5,000 unit PO MOWEFR 07/27/17 [Vitamin D3] Clonidine HCl 0.1 mg PO TID 07/27/17 Clopidogrel Bisulfate [Plavix] 75 mg PO DAILY 07/27/17 Cyclobenzaprine HCl 5 mg PO BID PRN 07/27/17 Diltiazem HCl [Cartia Xt] 120 mg PO DAILY 07/27/17 Docusate Sodium [Colace] 200 mg PO DAILY PRN PRN 07/27/17 Gabapentin [Neurontin] 100 mg PO 0800,1200 07/27/17 Gabapentin [Neurontin] 200 mg PO QHS 07/27/17 Insulin Aspart [Novolog Flexpen See Protocol SC ACHS 07/27/17 ([facility])] Insulin Detemir [Levemir] 18 unit SQ QHS 07/27/17 Isosorbide Mononitrate [Imdur] 60 mg PO BID 07/27/17 Losartan Potassium [Cozaar] 50 mg PO BID 07/27/17 Oxycodone HCl/Acetaminophen 2 tablet PO Q4H PRN PRN 07/27/17 [Percocet 5/325] Pantoprazole Sodium [Protonix] 40 mg PO DAILY 07/27/17 ProMETHAzine [Phenergan] 25 mg PO Q6H PRN PRN 07/27/17 Ropinirole HCl [Requip] 0.25 mg PO QHS 07/27/17 Sevelamer Carbonate 800 mg PO TIDCM 07/27/17 Triphrocaps 1 mg PO DAILY 07/27/17 Surgical History: angioplasty, hysterectomy, total knee arthroplasty, - - cardiac stents, AVF 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 Lives: Retirement Smoking Status: Former smoker Alcohol: None Drugs: None - *Family History Maternal History Items: Cancer - uterine Paternal History Items: Cancer Sibling History Items: Diabetes Review of Systems Constitutional: Denies: Chills, Fever, Weight Change HEENT: Denies: Head Aches, Sinus Congestion, Sinus Drainage Cardiovascular: Denies: Chest Pain, Palpitations Respiratory: Denies: Cough, Shortness of breath at rest, Sputum production Gastrointestinal: Reports: Abdominal Pain, Nausea, Vomiting Genitourinary: Denies: Dysuria Musculoskeletal: Denies: Joint Pain, Joint Tenderness Skin: Denies: Rash, Wounds Neurological: Denies: Numbness, Tingling, Focal weakness Psychiatric: Denies: Anxiety, Depression, Homicidal Ideations, Suicidal Ideations Hematologic/ Lymphatic: Denies: Easy Bruising, Easy Bleeding VTE Information - Inpt Only VTE Present on Admission: No VTE Mechan Device Prophylaxis: None VTE Pharm Prophylaxis ordered?: Yes Patient Problems: Active and Suspected Problems Ileus (Acute) - Physical Exam General: Lethargic HEENT: Atraumatic, PERRLA, EOMI, Normocephalic Neck: Supple, No JVD, Negative Carotid Bruits Lungs: Clear to auscultation, Normal air movement Cardiovascular: Regular rate, No murmurs Abdomen: Hypoactive Bowel Sounds, Guarding, Tender Extremities: No edema, Capillary Refill Less than 3 Seconds Skin: No rashes, No breakdown Musculoskeletal: No Tenderness to Palpation of Joints or Extremities Neurological: Cranial nerves II-XII grossly intact Psych/Mental Status: - - lethargic Vital Signs Temp Pulse Resp BP Pulse Ox 99.2 F H 48 L 18 111/44 L 95 07/27/17 14:16 07/27/17 15:13 07/27/17 15:13 07/27/17 15:13 07/27/17 14:16 Oxygen Flow Rate (L/min) 2 Oxygen Delivery Method Nasal Cannula Weight: 80 kg Body Mass Index (BMI) 29.3 Microbiology Past 72 Hours 07/27/17 14:35 Influenza Types A,B Direct FA (BLAKE) - Final Mucosa - Nose Laboratory Tests Past 24 Hrs 07/27/17 07/27/17 07/27/17 11:30 11:30 11:30 WBC 5.8 RBC 3.40 L Hgb 9.9 L Hct 32.3 L MCV 95.0 MCH 29.1 MCHC 30.7 L RDW 17.7 H RDW Differential 60.2 H Plt Count 167 MPV 9.7 Immature Gran % (Auto) 0.300 Neut % (Auto) 83.1 H Lymph % (Auto) 10.0 L [place] % (Auto) 4.8 Eos % (Auto) 1.5 Baso % (Auto) 0.3 Absolute Neuts (auto) 4.8 Absolute Lymphs (auto) 0.58 L Total Counted Not Reportable Differential Comment Sodium Cancelled Potassium Cancelled Chloride Cancelled Carbon Dioxide Cancelled Anion Gap Cancelled BUN Cancelled Creatinine Cancelled Estim Creat Clear Calc Cancelled Est GFR (MDRD) Af Amer Cancelled Est GFR (MDRD) Non-Af Cancelled BUN/Creatinine Ratio Cancelled Glucose Cancelled Lactic Acid Cancelled Calcium Cancelled Total Bilirubin Cancelled AST Cancelled ALT Cancelled Alkaline Phosphatase Cancelled Troponin I Cancelled Total Protein Cancelled Albumin Cancelled Globulin Cancelled Albumin/Globulin Ratio Cancelled Lipase Cancelled Urine Color Urine Clarity Urine pH Ur Specific [place] Urine Protein Urine Glucose (UA) Urine Ketones Urine Occult Blood Urine Nitrite Urine Bilirubin Urine Urobilinogen Ur Leukocyte Esterase Urine RBC Urine WBC Ur Squamous Epith Cells Urine Bacteria Urine Mucus 07/27/17 07/27/17 07/27/17 11:30 12:33 12:33 WBC RBC Hgb Hct MCV MCH MCHC RDW RDW Differential Plt Count MPV Immature Gran % (Auto) Neut % (Auto) Lymph % (Auto) [place] % (Auto) Eos % (Auto) Baso % (Auto) Absolute Neuts (auto) Absolute Lymphs (auto) Total Counted Differential Comment Sodium 137 Potassium 4.9 Chloride 104 Carbon Dioxide 24.0 Anion Gap 9 BUN 41 H Creatinine 3.36 H Estim Creat Clear Calc 13.22 Est GFR (MDRD) Af Amer 17 L Est GFR (MDRD) Non-Af 14 L BUN/Creatinine Ratio 12.2 Glucose 78 Lactic Acid 1.5 Calcium 6.5 L* Total Bilirubin 0.30 AST 24 ALT 12 L Alkaline Phosphatase 74 Troponin I 0.04 Total Protein 5.1 L Albumin 2.0 L Globulin 3.1 Albumin/Globulin Ratio 0.6 L Lipase 57 L Urine Color Yellow Urine Clarity Sl. Cloudy Urine pH 5.0 Ur Specific [place] 1.015 Urine Protein 30 H Urine Glucose (UA) Normal Urine Ketones Negative Urine Occult Blood Negative Urine Nitrite Negative Urine Bilirubin 3 H Urine Urobilinogen Normal Ur Leukocyte Esterase 25 H Urine RBC 0 SEEN Urine WBC 0-5 SEEN Ur Squamous Epith Cells 0-5 SEEN Urine Bacteria RARE Urine Mucus RARE Assessment/Plan Active and Suspected Problems Ileus (Acute) 1. Ileus - abdominal pain,nausea, vomiting, diarrhea, tenderness on palpation with some guarding with hypoactive bowel sounds. NPO+sips/chips. Supportive care. She did have a temp of 100.1 at presentation. No leukocytosis. UA is not significantly abnormal. CXR with cardiomegaly and atelectasis. CTA of the chest and abdomen unremarkable. 2. ESRD - Dr. Crawley Consulted. Dialysis tonight. Continue renvela. 3. Paroxysmal AF - She is somewhat bradycardic. continue Coreg, Cardizem. She does not appear to be on oral anticoagulation. 4. T2DM - hold long acting insulin. SSI. 5. CAD - continue asa, plavix, statin, losartan, imdur. Neg trop. 6. Chronic anemia - normocytic. suspect 2/2 esrd. 7. Recent right 5th metatarsal fracture with associated debility. PTOT. From SNF. 8. Hypocalcemia - trend. On VitD, not on calcium. DVT ppx: heparin DC planning: return to SNF at [place] This patient was seen by Sanjeev Earl PA-C under the supervision of Doctor Tomlin.
--- NOTE | 2017-07-27 15:37 | HP.PCM_ITS ---
Problem List (1) Ileus Status: Acute (2) CAD (coronary artery disease) Status: Chronic Qualifiers: Coronary Disease-Associated Artery/Lesion type: [place] artery (3) Diabetes mellitus, type II Status: Chronic (4) Hyperlipidemia Status: Chronic (5) Hypothyroidism Status: Chronic (6) Anemia in chronic kidney disease Status: Chronic (7) Hypertension Status: Chronic (8) End stage renal disease on dialysis Status: Chronic (9) Afib Status: Chronic History of Present Illness Date of Admission: 07/27/17 Chief Complaint: N/V/D The patient is a 72 year old F with a hx of ESRD, CAD, paroxysmal AF, T2DM, HTN , HLD, hypothroidism, who [facility] today for nausea vomiting, and diarrhea. She missed dialysis today 2/2 these symptoms. She has been in the SNF since her last admission for a right fifth metatarsal fracture. She developed diarrhea last night and had more this AM with nausea and vomiting. Today in the ER she had significant abdominal pain. Currently she is very lethargic and not opening her eyes, and is too sleep to stay awake to answer questions. She received phenergan in the ER. She did say yes when asked if she had abdominal pain and when I pushed on her abdomen. In the ER she underwent a CTA of the chest and abdomen which were negative. [] Past Medical History Past Medical History (Chronic Problems): Chronic Problems Other specified peripheral vascular diseases (Chronic) Afib (Chronic) Congenital coronary artery anomaly (Chronic) S/P PTCA (percutaneous transluminal coronary angioplasty) (Chronic) Bradycardia (Chronic) CAD (coronary artery disease) (Chronic) Diabetes mellitus, type II (Chronic) Hyperlipidemia (Chronic) Hypothyroidism (Chronic) Anemia in chronic kidney disease (Chronic) Hypertension (Chronic) End stage renal disease on dialysis (Chronic) Allergies lisinopril Allergy (Verified 07/27/17 11:05) [facility] Adverse Reaction (Verified 07/27/17 15:05) bradycardia BRADYCARDIA Home Medications: Ambulatory Orders Medication Instructions Recorded Acetaminophen [Tylenol] 650 mg PO Q4H PRN 07/27/17 Aspirin [Aspirin, Baby] 81 mg PO DAILY@0800 07/27/17 Atorvastatin Calcium [Lipitor] 40 mg PO QHS 07/27/17 B Complex W-C No.20/Folic Acid 1 mg PO DAILY 07/27/17 [Nephrocaps Softgel] Carvedilol [Coreg] 12.5 mg PO BID 07/27/17 Cholecalciferol (Vitamin D3) 5,000 unit PO MOWEFR 07/27/17 [Vitamin D3] Clonidine HCl 0.1 mg PO TID 07/27/17 Clopidogrel Bisulfate [Plavix] 75 mg PO DAILY 07/27/17 Cyclobenzaprine HCl 5 mg PO BID PRN 07/27/17 Diltiazem HCl [Cartia Xt] 120 mg PO DAILY 07/27/17 Docusate Sodium [Colace] 200 mg PO DAILY PRN PRN 07/27/17 Gabapentin [Neurontin] 100 mg PO 0800,1200 07/27/17 Gabapentin [Neurontin] 200 mg PO QHS 07/27/17 Insulin Aspart [Novolog Flexpen See Protocol SC ACHS 07/27/17 ([facility])] Insulin Detemir [Levemir] 18 unit SQ QHS 07/27/17 Isosorbide Mononitrate [Imdur] 60 mg PO BID 07/27/17 Losartan Potassium [Cozaar] 50 mg PO BID 07/27/17 Oxycodone HCl/Acetaminophen 2 tablet PO Q4H PRN PRN 07/27/17 [Percocet 5/325] Pantoprazole Sodium [Protonix] 40 mg PO DAILY 07/27/17 ProMETHAzine [Phenergan] 25 mg PO Q6H PRN PRN 07/27/17 Ropinirole HCl [Requip] 0.25 mg PO QHS 07/27/17 Sevelamer Carbonate 800 mg PO TIDCM 07/27/17 Triphrocaps 1 mg PO DAILY 07/27/17 Surgical History: angioplasty, hysterectomy, total knee arthroplasty, - - cardiac stents, AVF 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 History: No pertinent 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 history Lives: [facility] Smoking Status: Former smoker Alcohol: None Drugs: None - *Family History Maternal History Items: Cancer - uterine Paternal History Items: Cancer Sibling History Items: Diabetes Review of Systems Constitutional: Denies: Chills, Fever, Weight Change HEENT: Denies: Head Aches, Sinus Congestion, Sinus Drainage Cardiovascular: Denies: Chest Pain, Palpitations Respiratory: Denies: Cough, Shortness of breath at rest, Sputum production Gastrointestinal: Reports: Abdominal Pain, Nausea, Vomiting Genitourinary: Denies: Dysuria Musculoskeletal: Denies: Joint Pain, Joint Tenderness Skin: Denies: Rash, Wounds Neurological: Denies: Numbness, Tingling, Focal weakness Psychiatric: Denies: Anxiety, Depression, Homicidal Ideations, Suicidal Ideations Hematologic/ Lymphatic: Denies: Easy Bruising, Easy Bleeding VTE Information - Inpt Only VTE Present on Admission: No VTE Mechan Device Prophylaxis: None VTE Pharm Prophylaxis ordered?: Yes Patient Problems: Active and Suspected Problems Ileus (Acute) - Physical Exam General: Lethargic HEENT: Atraumatic, PERRLA, EOMI, Normocephalic Neck: Supple, No JVD, Negative Carotid Bruits Lungs: Clear to auscultation, Normal air movement Cardiovascular: Regular rate, No murmurs Abdomen: Hypoactive Bowel Sounds, Guarding, Tender Extremities: No edema, Capillary Refill Less than 3 Seconds Skin: No rashes, No breakdown Musculoskeletal: No Tenderness to Palpation of Joints or Extremities Neurological: Cranial nerves II-XII grossly intact Psych/Mental Status: - - lethargic Vital Signs Temp Pulse Resp BP Pulse Ox 99.2 F H 48 L 18 111/44 L 95 07/27/17 14:16 07/27/17 15:13 07/27/17 15:13 07/27/17 15:13 07/27/17 14:16 Oxygen Flow Rate (L/min) 2 Oxygen Delivery Method Nasal Cannula Weight: 80 kg Body Mass Index (BMI) 29.3 Microbiology Past 72 Hours 07/27/17 14:35 Influenza Types A,B Direct FA (BLAKE) - Final Mucosa - Nose Laboratory Tests Past 24 Hrs 07/27/17 07/27/17 07/27/17 11:30 11:30 11:30 WBC 5.8 RBC 3.40 L Hgb 9.9 L Hct 32.3 L MCV 95.0 MCH 29.1 MCHC 30.7 L RDW 17.7 H RDW Differential 60.2 H Plt Count 167 MPV 9.7 Immature Gran % (Auto) 0.300 Neut % (Auto) 83.1 H Lymph % (Auto) 10.0 L [place] % (Auto) 4.8 Eos % (Auto) 1.5 Baso % (Auto) 0.3 Absolute Neuts (auto) 4.8 Absolute Lymphs (auto) 0.58 L Total Counted Not Reportable Differential Comment Sodium Cancelled Potassium Cancelled Chloride Cancelled Carbon Dioxide Cancelled Anion Gap Cancelled BUN Cancelled Creatinine Cancelled Estim Creat Clear Calc Cancelled Est GFR (MDRD) Af Amer Cancelled Est GFR (MDRD) Non-Af Cancelled BUN/Creatinine Ratio Cancelled Glucose Cancelled Lactic Acid Cancelled Calcium Cancelled Total Bilirubin Cancelled AST Cancelled ALT Cancelled Alkaline Phosphatase Cancelled Troponin I Cancelled Total Protein Cancelled Albumin Cancelled Globulin Cancelled Albumin/Globulin Ratio Cancelled Lipase Cancelled Urine Color Urine Clarity Urine pH Ur Specific [place] Urine Protein Urine Glucose (UA) Urine Ketones Urine Occult Blood Urine Nitrite Urine Bilirubin Urine Urobilinogen Ur Leukocyte Esterase Urine RBC Urine WBC Ur Squamous Epith Cells Urine Bacteria Urine Mucus 07/27/17 07/27/17 07/27/17 11:30 12:33 12:33 WBC RBC Hgb Hct MCV MCH MCHC RDW RDW Differential Plt Count MPV Immature Gran % (Auto) Neut % (Auto) Lymph % (Auto) [place] % (Auto) Eos % (Auto) Baso % (Auto) Absolute Neuts (auto) Absolute Lymphs (auto) Total Counted Differential Comment Sodium 137 Potassium 4.9 Chloride 104 Carbon Dioxide 24.0 Anion Gap 9 BUN 41 H Creatinine 3.36 H Estim Creat Clear Calc 13.22 Est GFR (MDRD) Af Amer 17 L Est GFR (MDRD) Non-Af 14 L BUN/Creatinine Ratio 12.2 Glucose 78 Lactic Acid 1.5 Calcium 6.5 L* Total Bilirubin 0.30 AST 24 ALT 12 L Alkaline Phosphatase 74 Troponin I 0.04 Total Protein 5.1 L Albumin 2.0 L Globulin 3.1 Albumin/Globulin Ratio 0.6 L Lipase 57 L Urine Color Yellow Urine Clarity Sl. Cloudy Urine pH 5.0 Ur Specific [place] 1.015 Urine Protein 30 H Urine Glucose (UA) Normal Urine Ketones Negative Urine Occult Blood Negative Urine Nitrite Negative Urine Bilirubin 3 H Urine Urobilinogen Normal Ur Leukocyte Esterase 25 H Urine RBC 0 SEEN Urine WBC 0-5 SEEN Ur Squamous Epith Cells 0-5 SEEN Urine Bacteria RARE Urine Mucus RARE Assessment/Plan Active and Suspected Problems Ileus (Acute) 1. Ileus - abdominal pain,nausea, vomiting, diarrhea, tenderness on palpation with some guarding with hypoactive bowel sounds. NPO+sips/chips. Supportive care. She did have a temp of 100.1 at presentation. No leukocytosis. UA is not significantly abnormal. CXR with cardiomegaly and atelectasis. CTA of the chest and abdomen unremarkable. 2. ESRD - Dr. Crawley Consulted. Dialysis tonight. Continue renvela. 3. Paroxysmal AF - She is somewhat bradycardic. continue Coreg, Cardizem. She does not appear to be on oral anticoagulation. 4. T2DM - hold long acting insulin. SSI. 5. CAD - continue asa, plavix, statin, losartan, imdur. Neg trop. 6. Chronic anemia - normocytic. suspect 2/2 esrd. 7. Recent right 5th metatarsal fracture with associated debility. PTOT. From SNF. 8. Hypocalcemia - trend. On VitD, not on calcium. DVT ppx: heparin DC planning: return to SNF at [place] This patient was seen by Sanjeev Earl PA-C under the supervision of Doctor Tomlin.
[2017-07-27] MEDS: Carvedilol 12.5 MG Tablet PO (23:00)
[2017-07-27] MEDS: cloNIDine HCl 0.1 MG Tablet PO (23:00)
[2017-07-27] MEDS: Isosorbide Mononitrate 60 MG Tablet PO (23:00)
[2017-07-27] MEDS: Gabapentin 100 MG Capsule 200 MG PO (23:00)
[2017-07-27] MEDS: Pramipexole Di-HCl 0.125 MG Tablet PO (23:00)
[2017-07-27] MEDS: Losartan Potassium 50 MG Tablet PO (23:00)
[2017-07-27] MEDS: Atorvastatin Calcium 40 MG Tablet PO (23:00)
[2017-07-27] MEDS: 0.9% NaCl Peripheral Flush Adult/Peds IV (23:50)
[2017-07-28 01:01] LABS: Bedside Glucose 111 mg/dL (70-110)
[2017-07-28 01:04] VITALS: TEMP 37.5
[2017-07-28 02:00] VITALS: BP 167/48; PULSE 74; RESP 18; RESP 20; TEMP 37.7; O2SAT 94
[2017-07-28] MEDS: 0.9% NaCl Peripheral Flush Adult/Peds IV (02:01)
[2017-07-28 06:29] VITALS: BP 137/49; PULSE 64; RESP 16; TEMP 37.6; O2SAT 97
[2017-07-28] MEDS: cloNIDine HCl 0.1 MG Tablet PO (06:32)
[2017-07-28 06:51] LABS: Bedside Glucose 132 mg/dL (70-110)
[2017-07-28 06:57] LABS: Anion Gap 8 (5-15); BUN 25 mg/dL (7-18); BUN/Creat Ratio 8.3 RATIO (10-20); Calcium,Total 8.1 mg/dL (8.5-10.1); Chloride 97 mmol/L (98-107); Creatinine, Serum 3.03 mg/dL (0.55-1.02); EST Glomerular Filtration Rate 16 mL/min (>60); Est Glom Filt Rate - Afr Amer 19 mL/min (>60); Estimated Creatinine Clearance 14.66 ml/min; Glucose 120 mg/dL (74-106); Potassium 3.9 mmol/L (3.5-5.1); Sodium Level 136 mmol/L (136-145)
[2017-07-28 08:00] VITALS: RESP 18
--- NOTE | 2017-07-28 08:35 | CASEMGMT ---
Social Work Note Face to face with pt. Introduced self and role at [facility]. The pt reports that she is from [facility] and intends on returning at discharge. Denies having a HCPOA and states that her is her primary contact and support. Green sheet placed on chart in anticipation of weekend discharge. Clinicals faxed to [facility] for review. Plan: [facility] for rehabilitation. Ines Burns, ELECTRONICS WARFARE TECHNICIAN, CIGAR HEAD PUNCHER
[2017-07-28 08:40] VITALS: BP 130/66; PULSE 68; RESP 16; TEMP 37.2; O2SAT 95
[2017-07-28] MEDS: Aspirin 81 MG TAB.CHEW PO (08:41)
[2017-07-28] MEDS: SEVELAMER CARBONATE 800 MG TABLET PO ×2 (08:41→11:57)
[2017-07-28] MEDS: Gabapentin 100 MG Capsule PO ×2 (08:42→11:57)
--- NOTE | 2017-07-28 09:42 | PCM.TXEXTCAR ---
- Diet 07/28/17 08:22 Diet: Cardiac: Calorie-Controlled Is pt able to select menu?: No How many daily calories?: 1800 calorie - Therapies Weight Bearing: Full weight bearing - Problem/Diagnosis (1) Ileus Status: Acute Current Visit: Yes (2) CAD (coronary artery disease) Status: Chronic Current Visit: No (3) Diabetes mellitus, type II Status: Chronic Current Visit: No (4) Anemia in chronic kidney disease Status: Chronic Current Visit: No (5) Hypertension Status: Chronic Current Visit: No (6) End stage renal disease on dialysis Status: Chronic Current Visit: No - Allergies/Procedures Done in Hospital Allergies/Adverse Reactions: Allergies lisinopril Allergy (Verified 07/27/17 11:05) Swelling nebivolol HCl [From [facility]] Adverse Reaction (Verified 07/27/17 15:05) bradycardia BRADYCARDIA Procedures: None - Type of Care/Length of Stay Estimated LOS: More Than 30 Days Type of Care Needed: Intermediate Rehab Potential: Fair Prognosis: Fair - Additional Orders/Day of Discharge H&P will serve as current which was dated: 07/27/17 Day of Discharge: 07/28/17 - Follow Up Care Primary Care Physician: Robyn Sharma [Primary Care Provider] -
[2017-07-28] MEDS: Pantoprazole Sodium 40 MG Tablet PO (10:03)
[2017-07-28] MEDS: Isosorbide Mononitrate 60 MG Tablet PO (10:03)
[2017-07-28] MEDS: Clopidogrel Bisulfate 75 MG Tablet PO (10:03)
[2017-07-28] MEDS: Losartan Potassium 50 MG Tablet PO (10:03)
[2017-07-28] MEDS: dilTIAZem CD 120 MG Capsule PO (10:04)
[2017-07-28] MEDS: Folic Acid/Vitamin B Comp W-C 1 Capsule 1 CAP PO (10:04)
[2017-07-28] MEDS: Carvedilol 12.5 MG Tablet PO (10:05)
[2017-07-28 11:51] LABS: Bedside Glucose 154 mg/dL (70-110)
[2017-07-28 12:02] VITALS: BP 137/55; PULSE 65; RESP 18; TEMP 36.9; O2SAT 92
--- NOTE | 2017-07-29 11:41 | DS.PCM_ITS ---
Discharge Date and Diagnosis Date of Admission: 07/27/17 Date of Discharge: 07/28/17 - Primary Discharge Diagnosis #1 ileus-adynamic #2 nausea and vomiting secondary to ileus #3 end-stage renal disease #4 paroxysmal atrial fibrillation #5 type 2 diabetes #6 coronary artery disease - Secondary Discharge Diagnosis Chronic Problems Other specified peripheral vascular diseases (Chronic) Afib (Chronic) Congenital coronary artery anomaly (Chronic) S/P PTCA (percutaneous transluminal coronary angioplasty) (Chronic) Bradycardia (Chronic) CAD (coronary artery disease) (Chronic) Diabetes mellitus, type II (Chronic) Hyperlipidemia (Chronic) Hypothyroidism (Chronic) Anemia in chronic kidney disease (Chronic) Hypertension (Chronic) End stage renal disease on dialysis (Chronic) Hospital Course and Treatment Operations: None, - Procedures: Dialysis Summary of Care Provided: The patient is a 72 year old F seen in the emergency room at [facility] after being transported from a local extended care facility at which she was undergoing rehab due to nausea and vomiting and abdominal bloating. Patient is a chronic dialysis patient and she was not able to undergo dialysis due to her nausea and vomiting. Workup in the emergency room included labs which showed an abnormal creatinine in keeping with her chronic renal disease, calcium was low, white blood cell count was normal. Patient had a CTA of her abdomen and pelvis which did not show presence of any aneurysm, patient also had a chest CTA which showed no evidence of pulmonary emboli. On examination, patient's abdomen was tympanic and she had mild diffuse tenderness. It was felt that she had an ileus, she was placed in observation status on MedSurg 3, she underwent dialysis that day and she was treated symptomatically for her nausea and vomiting due to her ileus. The following day on 07/28/17 she was seen and examined, her symptoms had resolved and her abdomen was soft and non- tympanic. Her diet was advanced and she tolerated this, she was discharged in stable condition back to her extended care facility for continued rehab. Home Medications: Medications to take at Discharge Acetaminophen [Tylenol] 650 mg PO Q4H PRN 07/27/17 Carvedilol [Coreg] 12.5 mg PO BID 07/27/17 Cholecalciferol (Vitamin D3) [Vitamin D3] 5,000 unit PO MOWEFR 07/27/17 Clonidine HCl 0.1 mg PO TID 07/27/17 Clopidogrel Bisulfate [Plavix] 75 mg PO DAILY 07/27/17 Cyclobenzaprine HCl 5 mg PO BID PRN 07/27/17 Diltiazem HCl [Cartia Xt] 120 mg PO DAILY 07/27/17 Gabapentin [Neurontin] 100 mg PO 0800,1200 07/27/17 Gabapentin [Neurontin] 200 mg PO QHS 07/27/17 Insulin Aspart [Novolog Flexpen] See Protocol SC ACHS 07/27/17 Insulin Detemir [Levemir] 22 unit SQ QHS 07/27/17 Ropinirole HCl [Requip] 0.25 mg PO QHS 07/27/17 Sevelamer Carbonate 800 mg PO TIDCM 07/27/17 Oxycodone HCl/Acetaminophen [Percocet 5-325] 2 tab PO Q4H PRN PRN #20 tab Following Prescrptions Were Given to Patient: Oxycodone HCl/Acetaminophen [Percocet 5-325] 2 tab PO Q4H PRN PRN #20 tab PRN Reason: Pain Primary Care Physician: Robyn Sharma [Primary Care Provider] - Disposition: Intermediate facility Minutes spent on discharge:: 27 Patient Condition:: Stable Meaningful Use Info Meaningful Use Diagnoses (Choose all that apply): None applicable Code Visit OBSV E&M: 12058 Observation care discharge
== END 2017-07-28 12:53 | disposition skilled nursing facility (03) ==
LOC: ED 13:03 → MS3 15:47
PROVIDERS: Admitting Provider Internal Medicine; Emergency Provider Emergency Medicine; Family Provider Nurse Practitioner; PCP Nurse Practitioner; Visit Provider Internal Medicine
DX: K56.7 Ileus, unspecified (principal); R11.2 Nausea with vomiting, unspecified; E11.22 Type 2 diabetes mellitus with diabetic chronic kidney disease; I12.0 Hypertensive chronic kidney disease with stage 5 chronic kidney disease or end stage renal disease; N18.6 End stage renal disease; Z99.2 Dependence on renal dialysis; I48.0 Paroxysmal atrial fibrillation; I25.10 Atherosclerotic heart disease of native coronary artery without angina pectoris; E78.5 Hyperlipidemia, unspecified; N18.9 Chronic kidney disease, unspecified; D63.1 Anemia in chronic kidney disease; Q24.5 Malformation of coronary vessels; R06.02 Shortness of breath; R60.0 Localized edema; Z79.899 Other long term (current) drug therapy; Z79.02 Long term (current) use of antithrombotics/antiplatelets; Z79.4 Long term (current) use of insulin; Z79.82 Long term (current) use of aspirin; Z87.891 Personal history of nicotine dependence; E83.51 Hypocalcemia; Z95.5 Presence of coronary angioplasty implant and graft; Z99.81 Dependence on supplemental oxygen; E86.0 Dehydration
CPT/HCPCS: 36415; 71045; 71275; 74174; 80048; 80053; 81001; 82962; 83605; 83690; 84484; 85025; 87086; 87804; 90937; 93005; 96361; 96372; 96374; 96375; 96376; 99218; 99285; J7040; J7050; Q9967; A4216; G0257; G0378

== ENCOUNTER 2017-07-29 08:50 | Emergency (ER) | payer MEDICARE, OTHER, SELFPAY ==
[2016-07-05 14:05] VITALS: BMI 27.1
[2017-07-29 08:52] VITALS: BP 137/55; PULSE 49; RESP 13; TEMP 37.1; O2SAT 97; BMI 30.4
[2017-07-29 09:11] LABS: Bedside Glucose 84 mg/dL (70-110)
--- NOTE | 2017-07-29 09:24 | EKG12_ITS ---
Test Reason : BLOODY STOOL Blood Pressure : / mmHG Vent. Rate : 052 BPM Atrial Rate : 052 BPM P-R Int : 242 ms QRS Dur : 104 ms QT Int : 496 ms P-R-T Axes : 080 004 114 degrees QTc Int : 461 ms Sinus bradycardia with 1st degree A-V block Nonspecific T wave abnormality Abnormal ECG Confirmed by QUIRINO NEWMAN, NANCIE ([id number]), society editor LEONCIO NAIR ([id number]) on 08/01/2017 4:03:05 PM Referred By: RICARDO Confirmed By:NANCIE WIN MD
--- NOTE | 2017-07-29 09:35 | ED.DCSUM_ITS ---
- ER Visit Summary Date of Service: 07/29/17 Chief Complaint: [] Weakness, hypoglycemia History of Present Illness: The patient is a 72 F presents via EMS with complaints of low blood sugar and generalized weakness. Patient was reportedly admitted to the hospital 2 days ago and discharged yesterday to her rehabilitation facility. She is currently in a rehabilitation for a right broken foot. Patient denies chest pain or shortness of breath. She does report watery diarrhea with a slight blood-tinged. Patient reports mild abdominal cramping/discomfort. She does have a history of end-stage renal disease and is on dialysis Sunday, Sunday, Sunday. Patient reports a history of diabetes on insulin. Patient also reports a history of coronary artery disease with cardiac stents. She reports she is on aspirin and Plavix. Physical Examination: [] Afebrile, vital signs stable. Elderly female no acute distress. Cardiovascular exam is regular rate and rhythm. Lungs clear to auscultation with distant breath sounds. Abdomen is soft and nontender. No guarding or rebound tenderness. No significant lower extremity edema. 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 Digital rectal exam reveals no masses or external hemorrhoids. Test Results: [] CBC reveals a hemoglobin of 8.9. Electrolytes reveal sodium of 131. Patient has a BUN and creatinine of 40 and 4.37, respectively. This is consistent with a history of end-stage renal disease. LFTs are normal. Lipase is normal. INR is 1.2. Troponin is 0.06. Lactic acid is 1.6. EKG shows normal sinus rhythm with a rate of 52 without ischemic changes or ectopy. This is unchanged from previous EKG. KUB negative. Repeat ABG is 99 on fourth and final serial examination approximately 5-1/2 hours later. Digital rectal exam reveals Hemoccult positive stool consistent with hematochezia. Emergency Department Course and Treatment: [] In reviewing the emergency physicians note from 2 days ago, the patient had normal labs and had a CTA of the chest and CTA of the abdomen which were negative. She received normal saline bolus, 500 cc. Patient received D5 half-normal saline at 100 cc/h throughout the remainder of the ED course. Laboratory work returned relatively normal. I do not feel any further intervention was warranted. On serial exam patient had improvement of symptoms. There was no active bleeding from the rectum during the physical examination or during the ED visit. Hemoglobin is stable in comparison to previous blood counts. At this time I feel the patient is a good candidate to return back to [facility] facility under the care of their physician. Treatment Plan: [] Discharge to follow-up with personal physician. Disposition: [] Discharge. Impression: [] Hypoglycemia, resolved Hyponatremia GI bleed This note was generated with [employer] dictation software. It may contain incorrect words, spelling, and punctuation that were not noted in review of the chart prior to signing ED Disposition - Plan for ED Patient: Chief Complaint: Hypoglycemia Referrals: Robyn Sharma [Primary Care Provider] -
[2017-07-29] MEDS: Dext 5%-0.45% NS 1,000 ML 100 ML IV (09:45)
--- NOTE | 2017-07-29 10:10 | RAD_ITS ---
STUDY: X-RAY - ABDOMEN/PELVIS REASON FOR EXAM: Female, 72 years old. Diverticulitis and colonic surgery. Diarrhea TECHNIQUE: Single view of the abdomen was obtained COMPARISON: None. FINDINGS: Dilated colonic and small bowel loops noted. Vascular calcifications seen. Calcified granulomas in the lung bases. Degenerative changes in the thoracic spine. Surgical clips in the pelvis. RAD/Abdomen Single View IMPRESSION: Scattered slightly dilated colonic loops. No evidence for small bowel obstruction seen. Please consider CT examination for acute diverticulitis as clinically deemed appropriate Electronically Signed: Nilesh Felipe, at 10:53 EDT Tel , Service support ,
[2017-07-29] MEDS: Ondansetron 4 MG/2 ML Vial IV (10:11)
[2017-07-29 10:14] LABS: Absolute Lymphocyte Count 0.69 X10^3/ul (0.83-4.51); Basophil# 0.02 X10^3/uL; Basophil% 0.3 % (0-1); Eosinophil# 0.08 X10^3/uL; Eosinophils% 1.3 % (0-5); Hematocrit 29.8 % (37-47); Hemoglobin 8.9 g/dl (12.0-15.0); Lymphocyte # 0.69 X10^3/ul (4.0); Lymphocyte % 11.3 % (19-41); Mean Corp Hgb Conc 29.9 g/gl (32-36); Mean Corpuscular Hgb 28.6 pg (27.0-32.0); Mean Corpuscular Volume 95.8 fL (81-99); Mean Platelet Vol. 9.4 fl (6.2-12.0); Monocyte# 0.31 X10^3/uL; Monocyte% 5.1 % (0-10); Neutrophil % 81.8 % (47-70); POSITIVE COUNT NO; POSITIVE DIFFERENTIAL NO; POSITIVE MORPHOLOGY NO; Platelet Count 114 K/mm3 (150-450); RBC Distribution Width CV 17.3 % (11.6-14.6); RBC Distribution Width SD 59.7 fl (35.1-43.9); Red Blood Count 3.11 M/mm3 (4.2-5.4); White Blood Count 6.1 K/mm3 (4.4-11.0)
[2017-07-29 10:22] LABS: International Normalized Ratio 1.2; Partial Thromboplast Time 37.4 Seconds (24.1-36.2); Prothrombin Time (Protime)PT. 15.1 SECONDS (11.7-14.9)
[2017-07-29 10:35] LABS: ALB/GLOB Ratio 0.6 RATIO (0.9-2.4); AST(SGOT) 37 U/L (15-37); Alanine Aminotransfer ALT/SGPT 17 U/L (13-56); Albumin, Serum 2.8 g/dL (3.2-5.0); Alkaline Phosphatase 107 U/L (45-117); Anion Gap 8 (5-15); BUN 40 mg/dL (7-18); BUN/Creat Ratio 9.2 RATIO (10-20); Calcium,Total 8.6 mg/dL (8.5-10.1); Chloride 97 mmol/L (98-107); Creatinine, Serum 4.37 mg/dL (0.55-1.02); EST Glomerular Filtration Rate 11 mL/min (>60); Est Glom Filt Rate - Afr Amer 13 mL/min (>60); Estimated Creatinine Clearance 9.75 ml/min; Globulin 4.5 g/dL (2.2-4.2); Glucose 67 mg/dL (74-106); Lipase 87 U/L (73-393); Potassium 4.4 mmol/L (3.5-5.1); Protein, Total 7.3 g/dL (6.4-8.2); Sodium Level 131 mmol/L (136-145)
[2017-07-29 10:40] LABS: Lactic Acid 1.6 mmol/L (0.4-2.0)
[2017-07-29 11:09] VITALS: BP 136/66; PULSE 53; RESP 15; O2SAT 95
[2017-07-29 11:12] LABS: Bacteria 0 SEEN /hpf (None Seen); Mucous, Urine 0 SEEN /hpf (<or=2+); Red Blood Cells-Urine 0 SEEN /hpf (0-5)
[2017-07-29 11:13] LABS: Color, Urine Yellow (Yellow); Glucose, Dipstick Normal (Normal); Ketone-Dipstick 5 mg/dl (Negative); Leukocyte Esterase-Dipstick 25 /ul (Negative); Nitrite-Dipstick Negative (Negative); Occult Blood-Urine 10 /ul (Negative); Protein-Dipstick 100 mg/dl (Negative); Specific Gravity, Urine 1.015 (1.002-1.030); Urine Clarity Clear (Clear); Urine Urobilinogen 1 mg/dl (Normal)
[2017-07-29 11:16] LABS: Urine Bilirubin Dipstick 6 mg/dL (Negative)
[2017-07-29 11:22] LABS: Amorphous Sediment 2+; Squamous Epithelial Cells - UA 0-5 SEEN /hpf (5-10); White Blood Cells 0-5 SEEN /hpf (0-5)
[2017-07-29 12:36] LABS: Bedside Glucose 92 mg/dL (70-110)
[2017-07-29 14:11] LABS: Bedside Glucose 99 mg/dL (70-110)
[2017-07-29 14:13] VITALS: BP 160/50; PULSE 58; RESP 16; O2SAT 98
--- NOTE | 2017-07-29 14:22 | ED.DEP ---
ED Disposition - Plan for ED Patient: Disposition: Home or Assisted Living Chief Complaint: Hypoglycemia Instructions: ED Diabetes Hypoglycemia Insulin React, ED Hyponatremia, ED Hematochezia Stable Referrals: Robyn Sharma [Primary Care Provider] -
--- NOTE | 2017-07-29 14:43 | ED.RN ---
REPORT GIVEN TO ELIZA AT [facility].
[2017-07-29 15:03] VITALS: BP 146/58; PULSE 59; RESP 16; O2SAT 95
== END 2017-07-29 15:04 | disposition home or self-care (01) ==
PROVIDERS: Emergency Provider Emergency Medicine; Family Provider Nurse Practitioner; PCP Nurse Practitioner
DX: E11.649 Type 2 diabetes mellitus with hypoglycemia without coma (principal); E87.1 Hypo-osmolality and hyponatremia; K92.1 Melena; S92.901D Unspecified fracture of right foot, subsequent encounter for fracture with routine healing; X58.XXXD Exposure to other specified factors, subsequent encounter; I25.10 Atherosclerotic heart disease of native coronary artery without angina pectoris; E11.22 Type 2 diabetes mellitus with diabetic chronic kidney disease; I12.0 Hypertensive chronic kidney disease with stage 5 chronic kidney disease or end stage renal disease; N18.6 End stage renal disease; E78.00 Pure hypercholesterolemia, unspecified; E03.9 Hypothyroidism, unspecified; Z99.2 Dependence on renal dialysis; Z95.5 Presence of coronary angioplasty implant and graft; Z90.89 Acquired absence of other organs; Z90.49 Acquired absence of other specified parts of digestive tract; Z90.710 Acquired absence of both cervix and uterus; Z79.02 Long term (current) use of antithrombotics/antiplatelets; Z79.82 Long term (current) use of aspirin; Z79.4 Long term (current) use of insulin; Z79.899 Other long term (current) drug therapy
CPT/HCPCS: 74018; 80053; 81001; 82274; 82962; 83605; 83690; 84484; 85025; 85610; 85730; 86850; 86900; 93005; 96365; 96366; 96375; 99285; J7040; A4216; J2405; J7799

== ENCOUNTER → 2017-10-11 13:46 | Outpatient (CLI) | payer MEDICARE, OTHER, SELFPAY ==
[2016-07-05 14:05] VITALS: BMI 27.1
--- NOTE | 2017-10-11 13:53 | VDLE_ITS ---
Reason For Study: swelling RIGHT LEFT GSV is normal. GSV is normal. CFV is compressible, spontaneous, competent CFV is compressible, spontaneous, competent, and demonstrates pulsatile venous flow. and demonstrates pulsatile venous flow. FV is compressible, spontaneous, competent FV is compressible, spontaneous, competent and demonstrates pulsatile venous flow. and demonstrates pulsatile venous flow. POP V is compressible, spontaneous, POP V is compressible, spontaneous, competent and demonstrates pulsatile venous competent and demonstrates pulsatile venous flow. flow. T/P Trunk is compressible. T/P Trunk is compressible. PTV is compressible. PTV is compressible. RT PerV is compressible. LT PerV is compressible. Procedure Exam performed in department. The exam was diagnostic. A preliminary report was called and/or faxed to Dr. Hdez. Interpretation Summary Deep veins of the lower extremities are bilaterally patent and compressible segmentally. There is no evidence of deep vein thrombosis on either side. Valvular competence appears intact within the proximal deep venous systems bilaterally. The greater saphenous veins appear bilaterally patent and compressible segmentally. Pulsatile flow is noted in the deep venous systems bilaterally,which may be indicative of elevated central venous pressure (i.e. congestive heart failure, tricuspid valve insufficiency, etc.). Clinical correlation is advised. Ordering Physician: Alan Hdez Performed By: Brandon Britt RVT
== END ==
PROVIDERS: Family Provider Nurse Practitioner; PCP Nurse Practitioner; Visit Provider Podiatrist
DX: M79.89 Other specified soft tissue disorders (principal); I82.403 Acute embolism and thrombosis of unspecified deep veins of lower extremity, bilateral
CPT/HCPCS: 93970

== ENCOUNTER 2017-11-17 14:29 | Inpatient (IN) | payer MEDICARE, OTHER, SELFPAY ==
[2016-07-05 14:05] VITALS: BMI 27.1
[2017-11-17] VITALS (8 sets, daily range): BP systolic 156–176; BP diastolic 79–90; PULSE 102–112; RESP 16–26; TEMP 36.4–36.7; O2SAT 99–100; BMI 32.1; BMI 32.4; BMI 32.5
--- NOTE | 2017-11-17 15:16 | EKG12_ITS ---
Test Reason : HYPOTENSION Blood Pressure : / mmHG Vent. Rate : 105 BPM Atrial Rate : 105 BPM P-R Int : 176 ms QRS Dur : 092 ms QT Int : 350 ms P-R-T Axes : 253 -11 158 degrees QTc Int : 462 ms Unusual P axis, possible ectopic atrial tachycardia Nonspecific ST and T wave abnormality Abnormal ECG Confirmed by QUIRINO NEWMAN, NANCIE ([id number]), design editor LEONCIO NAIR ([id number]) on 11/22/2017 3:07:23 PM Referred By: ANITA Confirmed By:NANCIE WIN MD
--- NOTE | 2017-11-17 15:17 | RAD_ITS ---
STUDY: X-RAY CHEST REASON FOR EXAM: Female, 72 years old. Shortness of breath with abdominal bloating TECHNIQUE: Single AP portable view of the chest. COMPARISON: 07/29/2017 FINDINGS: Lungs are mildly hypoinflated. No acute airspace disease. Mild right basilar scarring. There is no demonstrated pleural abnormality. There is mild cardiac enlargement. Normal mediastinum and roxy. Normal visualized pulmonary arteries. Normal visualized aortic arch and descending thoracic aorta. Normal visualized thoracic spine. Normal visualized ribs, clavicles, and shoulders. There is no demonstrated abnormality of the visualized soft tissue structures of the upper abdomen. RAD/Chest 1 View (Portable) IMPRESSION: No acute findings Electronically Signed: Jason Danielle DO at 15:36 EDT Tel , Service support ,
--- NOTE | 2017-11-17 15:21 | CT_ITS ---
STUDY: CTA CHEST REASON FOR EXAM: Female, 72 years old. Dyspnea and abdominal distention RADIATION DOSAGE (If Supplied By Facility): CTDIvol = ( 19.39 ) mGy, DLP = ( 1721.26 ) mGycm TECHNIQUE: The examination was performed with the intravenous administration of 100 ml of Isovue 370 contrast material. Post-processing of the angiographic images was performed, with multiplanar reformation and 3D reconstruction. Individualized dose optimization techniques were used for this CT. COMPARISON: CTA chest dated 07/27/2017 FINDINGS: Dense calcifications in the left thyroid lobe. Normal enhancement of the main pulmonary artery and right and left pulmonary arteries. Normal enhancement of the bilateral peripheral pulmonary arteries. There is no demonstrated pulmonary embolism. Normal thoracic aorta and visualized great vessels. There is no demonstrated aortic dissection. Mild to moderate cardiomegaly. Normal appearance of the pericardium. Calcified bihilar lymph nodes. No suspicious mediastinal lymphadenopathy. Normal visualized trachea and bronchi. The lungs are adequately inflated. There appears to be some scarring in both lung bases with calcified left lower lobe granuloma. No evidence of acute air space disease. Nnormal pleura. Normal chest wall structures. There are degenerative changes of thoracic spine. Normal visualized upper abdomen. CT/CTA Chest W/WO Contrast IMPRESSION: 1. No evidence of pulmonary embolism or thoracic aortic dissection 2. Stable scarring in both lung bases without acute airspace disease Electronically Signed: Jason Danielle DO at 17:09 EDT Tel , Service support ,
--- NOTE | 2017-11-17 15:21 | CT_ITS ---
STUDY: CT ABDOMEN AND PELVIS WITH CONTRAST REASON FOR EXAM: Female, 72 years old. Dyspnea. Abdominal distention. End-stage renal failure. RADIATION DOSAGE (If Supplied By Facility): CTDIvol = ( 19.39 ) mGy, DLP = ( 1721.26 ) mGycm TECHNIQUE: Transaxial images were obtained from the dome of the diaphragm to the symphysis pubis without oral contrast. 100 ml of Isovue 370 contrast was administered. Sagittal and coronal images were reconstructed. Individualized dose optimization techniques were used for this CT. COMPARISON: 07/27/2017. FINDINGS: Streaky densities in both lower lung agrawal seen consistent with scarring. Moderate cardiomegaly. Mild to moderate ascites seen in all quadrants including around the liver and spleen. Moderately heterogeneous liver similar to prior study. Poorly defined and subtle 1.9 cm low-attenuation mass near the center of the right lobe of the liver, also present previously but more prominent now. Neoplasm not excluded. Calcified granulomas seen in the liver. Gallbladder is absent. Pancreas unremarkable for age. Spleen has numerous calcified granulomas and is surrounded by fluid. It is otherwise negative. Adrenal glands unremarkable. Stable marked atrophy of both kidneys. No hydronephrosis on either side. Evaluation of the GI tract is limited by absence of oral contrast. Cannot exclude stomach wall thickening. No dilated loops of bowel or evidence for obstruction. Cannot exclude segmental thickening of the disla of the small or large bowel. Cannot exclude enteritis or colitis. Moderate diffuse fecal retention. No aortic aneurysm. Possible mild retroperitoneal adenopathy also present previously. In the pelvis, there is some free fluid. The uterus is absent. Urinary bladder is empty. Grossly normal rectum. Skeletal structures within normal limits. Extensive anasarca of the subcutaneous tissues. CT/Abdomen/Pelvis W IV Cont ONLY IMPRESSION: [id number] ascites in all quadrants. 1.9 cm low-attenuation mass in the central liver, axial image 37. Suggest further evaluation perhaps with contrast MRI, and consider biopsy. Severe renal atrophy. Cannot occluded segments of bowel wall thickening. Electronically Signed: Ramos Morales MD at 17:08 EDT , Service support ,
[2017-11-17] MEDS: Ondansetron 4 MG/2 ML Vial IV (15:54)
[2017-11-17] MEDS: Morphine 4 MG/ML Syringe IV ×2 (15:54→18:00)
[2017-11-17 16:12] LABS: Absolute Lymphocyte Count 1.02 X10^3/ul (0.83-4.51); Absolute Neutrophil Count 3.4 X10^3/uL (2.0-7.7); Basophil# 0.06 X10^3/uL; Basophil% 1.2 % (0-1); Eosinophil# 0.15 X10^3/uL; Eosinophils% 2.9 % (0-5); Hematocrit 40.4 % (37-47); Hemoglobin 12.7 g/dl (12.0-15.0); Lymphocyte # 1.02 X10^3/ul (4.0); Lymphocyte % 19.7 % (19-41); Mean Corp Hgb Conc 31.4 g/gl (32-36); Mean Corpuscular Hgb 29.9 pg (27.0-32.0); Mean Corpuscular Volume 95.1 fL (81-99); Mean Platelet Vol. 10.2 fl (6.2-12.0); Monocyte# 0.54 X10^3/uL; Monocyte% 10.4 % (0-10); Neutrophil # 3.38 X10^3/uL (2.7-7.7); Platelet Count 152 K/mm3 (150-450); RBC Distribution Width CV 20.9 % (11.6-14.6); RBC Distribution Width SD 69.7 fl (35.1-43.9); Red Blood Count 4.25 M/mm3 (4.2-5.4); White Blood Count 5.2 K/mm3 (4.4-11.0)
--- NOTE | 2017-11-17 16:12 | ED.VISSUMM ---
- ER Visit Summary Date of Service: 11/17/17 Chief Complaint: [Shortness of breath] History of Present Illness: The patient is a 72 F [presents the emergency department complaint of dyspnea since yesterday. Patient also complains of swollen feet and pain in her feet for several weeks. Patient states that she has a broken right foot has been wearing a walking boot. Patient having a lot of pain in her left foot as well. Patient's gained 20-30 pounds over the last 3 weeks. Patient is a dialysis patient and her last dialysis was yesterday. Patient states that she has chest pain frequently when asked if she has been experiencing any chest discomfort. Patient describes abdominal distention and discomfort for several weeks. Last bowel movement was earlier this morning. Patient's had no vomiting. Patient has not had any fever. Patient has not had a cough. Patient does have a history of A. fib and CHF.] Physical Examination: [HEENT-PERRLA, EOMI. Cranial nerves II through XII grossly intact. TMs clear. Mucous membranes moist. No adenopathy. Cardiovascular-regular rate and rhythm without murmur or ectopy Lungs-diminished breath sounds bilaterally. Patient has some faint rales in both bases. Mild tachypnea. No accessory muscle use or retractions. Abdomen-normoactive bowel sounds, soft. Patient has some mild distention. Mild diffuse tenderness to palpation. There is no rebound, rigidity, or perineal signs.. Extremities-intact ?4, normal range of motion, normal pulses. Patient has +2 edema both lower extremities.] Test Results: [EKG obtained showed a narrow complex tachycardia that I suspect is sinus with ectopic atrial focus.] CBC with differential showed white count 5.2, hemoglobin 12.7, hematocrit 40, platelets 152. Chemistry showed a sodium 133, potassium 5.6, chloride 95, CO2 29, BUN 46, creatinine 2.97 and glucose 256. LFTs unremarkable. Troponin was 0.059. BNP was 2411. Chest x-ray showed nothing acute. CTA of the chest showed scarring in the lung bases but no PE or dissection. CT scan of the abdomen pelvis with IV contrast showed moderate ascites and 1.4 cm mass in the liver Emergency Department Course and Treatment: Patient was given a DuoNeb aerosol.] Treatment Plan: [Patient will be admitted for continued evaluation of her liver mass and ascites. Suspect she may have an underlying component of CHF as the etiology of her dyspnea along with the distention of her abdomen and the ascites. Patient also has a mild elevation in her troponin which she has had multiple times in the past which will need to be followed.] Disposition: [Admit] Impression: [Dyspnea Ascites Liver mass Chronic renal failure] This note was generated with [employer] dictation software. It may contain incorrect words, spelling, and punctuation that were not noted in review of the chart prior to signing ED Disposition - Plan for ED Patient: Chief Complaint: Shortness of Breath Referrals: Robyn Sharma [ALLIED HEALTH PROFESSIONAL] -
[2017-11-17 16:13] LABS: POSITIVE COUNT NO; POSITIVE DIFFERENTIAL NO; POSITIVE MORPHOLOGY NO
[2017-11-17 16:20] LABS: Platelet Estimate ADEQUATE (ADEQ)
[2017-11-17 16:21] LABS: ALB/GLOB Ratio 0.7 RATIO (0.9-2.4); AST(SGOT) 23 U/L (15-37); Alanine Aminotransfer ALT/SGPT 20 U/L (13-56); Albumin, Serum 3.4 g/dL (3.2-5.0); Alkaline Phosphatase 237 U/L (45-117); Anion Gap 9 (5-15); Anisocytosis 1+; BUN 46 mg/dL (7-18); BUN/Creat Ratio 15.5 RATIO (10-20); Calcium,Total 9.6 mg/dL (8.5-10.1); Chloride 95 mmol/L (98-107); Creatinine, Serum 2.97 mg/dL (0.55-1.02); EST Glomerular Filtration Rate 16 mL/min (>60); Est Glom Filt Rate - Afr Amer 20 mL/min (>60); Estimated Creatinine Clearance 14.95 ml/min; Globulin 4.8 g/dL (2.2-4.2); Glucose 256 mg/dL (74-106); Potassium 5.6 mmol/L (3.5-5.1); Protein, Total 8.2 g/dL (6.4-8.2); Sodium Level 133 mmol/L (136-145)
[2017-11-17 17:05] LABS: BNP,B-Type NATRIURETIC PEPTIDE 2411.8 pg/mL (0-100)
--- NOTE | 2017-11-17 17:57 | HP.PCM_ITS ---
Problem List (1) Fracture of fifth metatarsal bone of right foot Status: Chronic Qualifiers: Encounter type: sequela Fracture type: closed Fracture alignment: nondisplaced Qualified Code(s): S92.354S - Nondisplaced fracture of fifth metatarsal bone, right foot, sequela (2) CAD (coronary artery disease) Status: Chronic Qualifiers: Coronary Disease-Associated Artery/Lesion type: [place] artery [place] vs. 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 (4) Hyperlipidemia Status: Chronic Qualifiers: Hyperlipidemia type: unspecified Qualified Code(s): E78.5 - Hyperlipidemia , unspecified (5) Hypothyroidism Status: Chronic Qualifiers: Hypothyroidism type: unspecified Qualified Code(s): E03.9 - Hypothyroidism , unspecified (6) Anemia in chronic kidney disease Status: Chronic Qualifiers: Chronic kidney disease stage: on chronic dialysis Qualified Code(s): N18.6 - End stage renal disease; D63.1 - Anemia in chronic kidney disease; Z99.2 - Dependence on renal dialysis (7) Hypertension Status: Chronic Qualifiers: Hypertension type: essential hypertension Qualified Code(s): I10 - Essential (primary) hypertension (8) End stage renal disease on dialysis Status: Chronic History of Present Illness Date of Admission: 11/17/17 Chief Complaint: Worsening Shortness of breath The patient is a 72 year old F past medical history of ESRD on hemodialysis, last had dialysis yesterday. Patient comes to the ED with complaints of shortness of breath that was worse since yesterday. She last had a dialysis yesterday. She sustained fracture of the right foot and has been wearing a walking boot. She admits that she has gained about 30 pounds over the last 3 weeks. She describes abdominal distention and discomfort ongoing for weeks. She denied any chest pain or palpitations or diaphoresis. She realized that her weight is not going down even with dialysis As in the ED showed temperature 97.6, heart rate 107, blood pressure of 170/88( has not had any blood pressure medications today), patient rate of 20, SPO2 99% on room air. Which investigations obese count 5.2, hemoglobin 12.7, platelet 150. Sodium 133, potassium 5.2, chloride 95, bicarbonate 29, BUN 56 creatinine 2.97. Glucose 256. Chest X-ray shows no acute findings. CT scan of the abdomen and pelvis shows mild to moderate ascites, 1.9 cm low-attenuation mass near the center of the right lobe of the liver, moderate diffuse fecal retention CTA of the chest was negative for PE Past Medical History Past Medical History (Chronic Problems): Chronic Problems (Last Reviewed 08/21/17 @ 14:33 by Pat Gomez) Fracture of fifth metatarsal bone of right foot (Chronic) Other specified peripheral vascular diseases (Chronic) Afib (Chronic) Congenital coronary artery anomaly (Chronic) S/P PTCA (percutaneous transluminal coronary angioplasty) (Chronic) Bradycardia (Chronic) CAD (coronary artery disease) (Chronic) Diabetes mellitus, type II (Chronic) Hyperlipidemia (Chronic) Hypothyroidism (Chronic) Anemia in chronic kidney disease (Chronic) Hypertension (Chronic) End stage renal disease on dialysis (Chronic) Medical History: Medical History (Last Reviewed 08/21/17 @ 14:33 by Pat Gomez) Fracture of fifth metatarsal bone of right foot (Acute) S92.351A Fall (Acute) W19.XXXA Gait instability (Acute) R26.81 Other specified peripheral vascular diseases (Chronic) I73.89 Pain in right ankle and joints of right foot (Acute) M25.571 Ileus (Acute) K56.7 Afib (Chronic) I48.91 Congenital coronary artery anomaly (Chronic) Q24.5 Unstable angina pectoris (Acute) NSTEMI (non-ST elevated myocardial infarction) (Acute) I21.4 Hyperkalemia (Acute) E87.5 Chest pressure (Acute) R07.89 Bradycardia (Chronic) R00.1 CAD (coronary artery disease) (Chronic) I25.10 Diabetes mellitus, type II (Chronic) E11.9 Hyperlipidemia (Chronic) E78.5 Hypothyroidism (Chronic) E03.9 Anemia in chronic kidney disease (Chronic) N18.9, D63.1 Hypertension (Chronic) I10 End stage renal disease on dialysis (Chronic) N18.6, Z99.2 Allergies lisinopril Allergy (Verified 11/17/17 14:32) Swelling nebivolol HCl [From Bystolic] Adverse Reaction (Verified 11/17/17 14:32) bradycardia BRADYCARDIA Home Medications: Ambulatory Orders Medication Instructions Recorded Acetaminophen [Tylenol] 650 mg PO Q4H PRN 07/27/17 Carvedilol [Coreg] 12.5 mg PO BID 07/27/17 Cholecalciferol (Vitamin D3) 5,000 unit PO MOWEFR 07/27/17 [Vitamin D3] Clonidine HCl 0.1 mg PO BID 07/27/17 Clopidogrel Bisulfate [Plavix] 75 mg PO DAILY 07/27/17 Cyclobenzaprine HCl 5 mg PO BID PRN 07/27/17 Gabapentin [Neurontin] 100 mg PO TID 07/27/17 Insulin Aspart [Novolog Flexpen] See Protocol SC ACHS 07/27/17 Insulin Detemir [Levemir] 22 unit SQ QHS 07/27/17 amiodarone 200 mg tablet 200 mg PO Q12H 08/21/17 aspirin 81 mg tablet,delayed 81 mg PO .daily tab 08/21/17 release atorvastatin 10 mg tablet 40 mg PO QDAY 08/21/17 diltiazem CD 240 mg 240 mg PO QDAY cap 08/21/17 capsule,extended release 24 hr isosorbide mononitrate ER 60 mg 60 mg PO BID 08/21/17 tablet,extended release 24 hr losartan 50 mg tablet 50 mg PO BID 08/21/17 oxycodone 7.5 mg tablet,oral ONLY 7.5 mg PO Q4H 08/21/17 (not for feeding tubes) pantoprazole 40 mg tablet,delayed 40 mg PO QDAY 08/21/17 release promethazine 12.5 mg tablet 12.5 mg PO Q6H PRN 08/21/17 vitamin B complex and vitamin C 1 cap PO QDAY 08/21/17 no.20-folic acid 1 mg capsule Amlodipine [Norvasc] 5 mg PO DAILY 11/17/17 Calcium Acetate 667 mg PO TIDCM 11/17/17 Docusate Sodium [Colace] 100 mg PO DAILY 11/17/17 Hydralazine HCl 100 mg PO DAILY 11/17/17 Surgical History: Surgical History (Last Updated 08/21/17 @ 14:35 by Pat Gomez) S/P PTCA (percutaneous transluminal coronary angioplasty) (Chronic) Z98.61 History of colectomy Z90.49 History of hysterectomy Z90.710 History of laparoscopic cholecystectomy Z90.49 History of total right knee replacement Z96.651 Hx of foot surgery Z98.890 history left A-V fistula Surgical History: angioplasty, hysterectomy, total knee arthroplasty, - - cardiac stents, 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 Lives: Spouse/ Significant Other Smoking Status: Former smoker Tobacco Use: Non-smoker Alcohol: None Drugs: None - *Family History Maternal Family History: Family History (Last Updated 08/21/17 @ 14:36 by Pat Gomez) Sister Diabetes Hypertension History Items: Cancer - uterine Paternal Family History: Family History (Last Updated 08/21/17 @ 14:36 by Pat Gomez) Sister Diabetes Hypertension History Items: Cancer Sibling Family History: Family History (Last Updated 08/21/17 @ 14:36 by Pat Gomez) Sister Diabetes Hypertension History Items: Diabetes Review of Systems Constitutional: Reports: Anorexia, Weakness. Denies: Chills, Fever, Weight Change Eyes: Denies: Blurred vision, Cataracts, Conjunctivae Inflammation, Pain, Redness, Vision Change HEENT: Denies: Difficulty Hearing, Difficulty Swallowing, Dysphasia, Head Aches , Hearing Changes, Nasal bleeding, Sinus Congestion, Sinus Drainage, Sore Throat , Visual Changes Cardiovascular: Denies: Chest Pain, Claudication, Chest Pressure, Chest Tightness, Orthopnea, Palpitations, Paroxysmal Noc. Dyspnea Respiratory: Denies: Cough, Hemoptysis, Pleuritic Pain, Shortness of breath at rest, Shortness of breath upon exertion, Sputum production Gastrointestinal: Denies: Abdominal Pain, Constipation, Hematemesis, Hematochezia, Nausea, Vomiting Genitourinary: Denies: Dysuria, Frequency, Incontinence Gynecological: Denies: Breast symptoms, Excessively long or heavy periods, Vaginal discharge Musculoskeletal: Reports: Joint Pain - right ankle, Joint stiffness, Joint swelling. Denies: Joint Tenderness Skin: Denies: Rash, Wounds Neurological: Denies: Numbness, Tingling, Focal weakness Psychiatric: Denies: Anxiety, Depression, Homicidal Ideations, Suicidal Ideations Hematologic/ Lymphatic: Denies: Easy Bruising, Easy Bleeding VTE Information - Inpt Only VTE Present on Admission: No VTE Pharm Prophylaxis ordered?: Yes - Physical Exam General: Alert, Oriented x3, Cooperative HEENT: Atraumatic, PERRLA, EOMI, Normocephalic Oral: Moist Mucosa Neck: Supple Lungs: Clear to auscultation, Normal air movement Cardiovascular: Regular rate, Regular Rhythm, Normal S1, Normal S2, No murmurs Abdomen: Bowel Sounds Present, Soft, Non Tender, Non-Distended, No Hepato- splenomegaly Extremities: Edema - bilateral +3-4 pitting edema, almost woody on the legs Skin: No rashes Musculoskeletal: No Tenderness to Palpation of Joints or Extremities Lymphatic: No Cervical, Supraclavicular, or Inguinal Adenopathy Neurological: Cranial nerves II-XII grossly intact, Neuro grossly intact Psych/Mental Status: Normal Affect, Appropriate Vital Signs Temp Pulse Resp BP Pulse Ox 97.6 F L 102 H 26 H 170/79 H 99 11/17/17 14:30 11/17/17 17:55 11/17/17 17:55 11/17/17 17:55 11/17/17 17:55 Oxygen Delivery Method Room Air Weight: 87.543 kg Body Mass Index (BMI) 32.1 Finger Stick Blood Glucose 99 Laboratory Tests Past 24 Hrs 11/17/17 11/17/17 11/17/17 15:50 15:50 15:50 WBC 5.2 RBC 4.25 Hgb 12.7 Hct 40.4 MCV 95.1 MCH 29.9 MCHC 31.4 L RDW 20.9 H RDW Differential 69.7 H Plt Count 152 MPV 10.2 Immature Gran % (Auto) 0.800 Neut % (Auto) 65.0 Lymph % (Auto) 19.7 [place] % (Auto) 10.4 H Eos % (Auto) 2.9 Baso % (Auto) 1.2 H Absolute Neuts (auto) 3.4 Absolute Lymphs (auto) 1.02 Total Counted Not Reportable Platelet Estimate ADEQUATE Anisocytosis 1+ Sodium 133 L Potassium 5.6 H Chloride 95 L Carbon Dioxide 29.0 Anion Gap 9 BUN 46 H Creatinine 2.97 H Estim Creat Clear Calc 14.95 Est GFR (MDRD) Af Amer 20 L Est GFR (MDRD) Non-Af 16 L BUN/Creatinine Ratio 15.5 Glucose 256 H Calcium 9.6 Total Bilirubin 0.70 AST 23 ALT 20 Alkaline Phosphatase 237 H Troponin I 0.059 H B-Natriuretic Peptide 2411.8 H Total Protein 8.2 Albumin 3.4 Globulin 4.8 H Albumin/Globulin Ratio 0.7 L Assessment/Plan All Active Problems (Last Reviewed 08/21/17 @ 14:33 by Pat Gomez) Fall (Acute) Gait instability (Acute) Pain in right ankle and joints of right foot (Acute) Ileus (Acute) Unstable angina pectoris (Acute) NSTEMI (non-ST elevated myocardial infarction) (Acute) Hyperkalemia (Acute) Chest pressure (Acute) 72 year old F past medical history of ESRD on hemodialysis, last had dialysis yesterday. Patient comes to the ED with complaints of shortness of breath that was worse since yesterday. She last had a dialysis yesterday. She sustained fracture of the right foot and has been wearing a walking boot. She admits that she has gained about 30 pounds over the last 3 weeks. She describes abdominal distention and discomfort ongoing for weeks. 1. Dyspnea secondary to Acute on chronic fluid overload in a patient with history of ESRD on hemodialysis, due to acute CHF exacerbation, patient has history of normal EF in 2017, patient makes minimal urine Plan: Admit to PCU, nephrology consult, dialysis tonight and then continue with her schedule on Sunday, strict I's and O's, fluid restriction to less than 1500, 2. Hypertensive urgency secondary to mixed medications, resume home medication , hydralazine as needed 3. Type 2 diabetes, on insulin, continue home regimen 4. Hypothyroidism, continue on levothyroxine 5. Elevated troponin in a patient with CAD, history of NSTEMI, last cardiac cath in 2017 showed left circumflex artery occlusion, patient was referred to [facility], no acute ST-T changes on EKG, will trend troponins. 6. Hyperkalemia secondary to ESRD, patient to be dialyzed 7. DVT prophylaxis with heparin subcu Code Visit Inpatient E&M: 54055 Init Hosp L3
--- NOTE | 2017-11-17 18:07 | NURSING ---
Jez in ER notified may transfer patient to PCU.l
[2017-11-17] MEDS: oxyCODONE 5 MG Tablet 7.5 MG PO (21:26)
[2017-11-17 21:55] LABS: Bedside Glucose 180 mg/dL (70-110)
--- NOTE | 2017-11-17 21:55 | NURSING ---
Patient given Morphine in ER for back and leg pain. Pt expressed continued pain - given OxyIR 7.5mg PO PRN at 2125 for 8/10 pain in bilateral legs, right foot, back, and abdomen. Chronic in legs. Currently acute from recent foot injury for foot pain, back chronic, and abdomen from fluid build up.
[2017-11-18] VITALS (45 sets, daily range): BP systolic 78–156; BP diastolic 32–90; PULSE 43–108; RESP 10–20; TEMP 35.9–36.7; O2SAT 90–100
[2017-11-18] MEDS: hydrALAZINE 50 MG Tablet 100 MG PO ×2 (00:18→06:18)
[2017-11-18] MEDS: Amiodarone 200 MG Tablet PO ×2 (00:20→08:27)
[2017-11-18] MEDS: Isosorbide Mononitrate 60 MG Tablet PO ×2 (00:21→08:29)
[2017-11-18] MEDS: Atorvastatin Calcium 40 MG Tablet PO ×2 (00:23→22:01)
[2017-11-18] MEDS: cloNIDine HCl 0.1 MG Tablet PO ×2 (00:24→08:25)
--- NOTE | 2017-11-18 00:26 | DIALYSIS ---
IUF x 30 min and HD x 2 hours complete. Tolerated tx well. Ran on 2k bath during HD tx. UF of 3800ml. Used upper left arm fistula. [place] removed post tx and pressure applied to sites. Hemostasis achieved. Pt had some cramping in left foot 20 min after tx was complete. Pt was given a small amount of chicken broth. Report was given to EDIN Syed.
[2017-11-18] MEDS: Carvedilol 25 MG Tablet PO ×2 (00:32→08:30)
[2017-11-18 00:41] LABS: Bedside Glucose 149 mg/dL (70-110)
--- NOTE | 2017-11-18 00:48 | NURSING ---
Pt declined all insulin at a blood sugar of 149. Medications administered late due to dialysis running. Pt does not take long acting at home since it drops BS too low if under 150 when taken HS. PT refused. All night meds administered. MD Simmons has requested patient receive AM meds that pt had not taken prior to coming in, but reviewed with patient and she was uncomfortable and did not feel some were necessary this late so only administered scheduled HS meds per pt.
[2017-11-18] MEDS: oxyCODONE 5 MG Tablet 7.5 MG PO ×2 (01:40→08:23)
[2017-11-18 07:06] LABS: Bedside Glucose 137 mg/dL (70-110)
[2017-11-18 07:35] LABS: Hematocrit 36.3 % (37-47); Hemoglobin 11.2 g/dl (12.0-15.0); Mean Corp Hgb Conc 30.9 g/gl (32-36); Mean Corpuscular Hgb 29.8 pg (27.0-32.0); Mean Corpuscular Volume 96.5 fL (81-99); Mean Platelet Vol. 9.6 fl (6.2-12.0); Platelet Count 119 K/mm3 (150-450); RBC Distribution Width CV 21.5 % (11.6-14.6); RBC Distribution Width SD 71.9 fl (35.1-43.9); Red Blood Count 3.76 M/mm3 (4.2-5.4); Scan Indicated on CBC? Y/N YES- FLAGS NOTED; White Blood Count 4.8 K/mm3 (4.4-11.0)
[2017-11-18 07:45] LABS: Anion Gap 8 (5-15); BUN 36 mg/dL (7-18); BUN/Creat Ratio 13.3 RATIO (10-20); Calcium,Total 8.5 mg/dL (8.5-10.1); Chloride 95 mmol/L (98-107); Cholesterol 73 mg/dL (200); EST Glomerular Filtration Rate 18 mL/min (>60); Est Glom Filt Rate - Afr Amer 22 mL/min (>60); Estimated Creatinine Clearance 16.45 ml/min; Glucose 142 mg/dL (74-106); High Density Lipoprotein 36 mg/dL; Potassium 4.6 mmol/L (3.5-5.1); Sodium Level 132 mmol/L (136-145); Triglycerides 74 mg/dL; Very Low Density Lipoprotein 15 mg/dL (5-40)
[2017-11-18] MEDS: Aspirin E.C. 81 MG Tablet PO (08:25)
[2017-11-18] MEDS: Calcium Acetate 667 MG Capsule PO ×2 (08:25→16:10)
[2017-11-18] MEDS: Gabapentin 100 MG Capsule PO ×2 (08:25→16:47)
[2017-11-18] MEDS: dilTIAZem CD 240 MG Capsule PO (08:25)
[2017-11-18] MEDS: Losartan Potassium 50 MG Tablet PO (08:28)
[2017-11-18] MEDS: amLODIPine 5 MG Tablet PO (08:29)
[2017-11-18] MEDS: Folic Acid/Vitamin B Comp W-C 1 Capsule 1 CAP PO (08:29)
[2017-11-18] MEDS: Clopidogrel Bisulfate 75 MG Tablet PO (08:30)
[2017-11-18] MEDS: Pantoprazole Sodium 40 MG Tablet PO (08:30)
[2017-11-18] MEDS: Heparin Injection (Vial) 5,000 UNIT/ML VIAL 5000 UNIT SC ×2 (08:31→21:56)
--- NOTE | 2017-11-18 11:19 | EKG12_ITS ---
Test Reason : CP Blood Pressure : / mmHG Vent. Rate : 049 BPM Atrial Rate : 197 BPM P-R Int : 194 ms QRS Dur : 088 ms QT Int : 574 ms P-R-T Axes : 226 000 176 degrees QTc Int : [address] & T wave abnormality, consider inferior ischemia ST & T wave abnormality, consider anterolateral ischemia Prolonged QT Abnormal ECG When compared with ECG of 17-NOV-2017 15:41, MANUAL COMPARISON REQUIRED, DATA IS UNCONFIRMED Confirmed by QUIRINO NEWMAN, NANCIE ([id number]), continuity editor LEONCIO NAIR ([id number]) on 11/22/2017 3:55:25 PM Referred By: GRACIELA Confirmed By:NANCIE WIN MD
--- NOTE | 2017-11-18 13:32 | ECHOD_ITS ---
Reason For Study: Dyspnea Procedure This was a 2D Doppler, Color Flow transthoracic echocardiogram. Exam performed portable in ICU/CCU. Left Ventricle Normal LV size. Left ventricular systolic function is normal. The estimated ejection fraction is 55 %. Transmitral diastolic flow velocities suggest severe (stage 3) diastolic dysfunction. No regional wall motion abnormalities noted. Right Ventricle Moderately dilated right ventricle. Mild global right ventricular systolic dysfunction. Atria The left atrium is moderately enlarged. The right atrium is moderately enlarged. Mitral Valve There is moderate mitral annular calcification. Mild (1+) eccentric mitral valve insufficiency. Tricuspid Valve Normal tricuspid valve. Severe (4+) tricuspid valve insufficiency. Pulmonary pressures underestimated due to poor RV function. Aortic Valve Trisinus/trileaflet aortic valve. Mild focal aortic valve calcification. Pulmonic Valve Normal pulmonic valve. Great Vessels Normal aortic root. The pulmonary artery is normal size. The inferior vena cava is dilated. Pericardium/Pleural No pericardial effusion. Moderate size left pleural effusion. MMode/2D Measurements & Calculations LVIDd: 4.9 cm IVSd: 1.3 cm LVOT diam: 2.0 cm LVIDs: 4.2 cm LVPWd: 0.99 cm LVOT area: 3.1 cm2 RVDd: 5.1 cm FS: 15.6 % Ao root diam: 3.0 cm LAV(MOD-bp): 81.0 ml Aortic Valve Planimetry: 1.5 cm2 ACS: 1.4 cm LAV(MOD-bp) Indexed: 41.9 ml/m2 LA dimension: 4.7 cm LAV(MOD-sp2): 71.9 ml LAV(MOD-sp4): 84.5 ml LA A4 area: 24.9 cm2 RA A4 area: 25.5 cm2 Time Measurements MV dec time: 0.28 sec Doppler Measurements & Calculations MV E max margie: 131.0 cm/sec MV V2 max: 154.1 cm/sec MV P1/2t max margie: 153.1 cm/sec MV A max margie: 47.5 cm/sec MV max P.5 mmHg MV P1/2t: 86.4 msec MV E/A: 2.8 MV V2 mean: 64.7 cm/sec MV dec slope: 518.8 cm/sec2 MV mean P.4 mmHg MVA(P1/2t): 2.5 cm2 MV V2 VTI: 41.4 cm MVA(VTI): 2.1 cm2 Ao V2 max: 260.7 cm/sec LV V1 max: 142.2 cm/sec MR max margie: 459.4 cm/sec Ao max P.2 mmHg LV V1 max P.1 mmHg MR max P.4 mmHg Ao V2 mean: 163.1 cm/sec LV V1 mean P.8 mmHg MR mean margie: 359.2 cm/sec Ao mean P.4 mmHg LV V1 mean: 89.2 cm/sec MR mean P.6 mmHg Ao V2 VTI: 51.5 cm LV V1 VTI: 27.9 cm MR VTI: 114.8 cm JOSHUA(I,D): 1.7 cm2 JOSHUA(V,D): 1.7 cm2 SV(LVOT): 86.9 ml PA V2 max: 101.1 cm/sec TR max margie: 217.1 cm/sec TR max P.8 mmHg Interpretation Summary Normal LV size. Left ventricular systolic function is normal. The estimated ejection fraction is 55 %. Transmitral diastolic flow velocities suggest severe (stage 3) diastolic dysfunction Mild (1+) eccentric mitral valve insufficiency. Severe (4+) tricuspid valve insufficiency. Ordering Physician: Becka Simmons Referring Physician: Allie Lund Performed By: Tye Price RCS
--- NOTE | 2017-11-18 13:32 | PCM.CONS.C ---
Reason for Consult Date of Consultation: 11/18/17 Reason for Consultation: Hypotension and abnormal cardiac enzymes History of Present Illness: The patient is a 72 F [presented the emergency department complaint of dyspnea since yesterday. Patient also complains of swollen feet and pain in her feet for several weeks. Patient states that she has a broken right foot has been wearing a walking boot. Patient having a lot of pain in her left foot as well. Patient's gained 20-30 pounds over the last 3 weeks. Patient is a dialysis patient and her last dialysis was yesterday. They apparently dialyzed over 3 L of fluid on her. Today while in the progressive care unit she had an episode of hypotension with her blood pressure in the 80s and then also had T-wave inversions. When she had presented to the emergency room she was noted to be in what appeared to be a junctional tachycardia with a rate of approximately 108 bpm. She denies any chest pain. She has had chronically elevated troponin. At this time she has been given about a liter of fluids and her blood pressure is 96 systolic. She unfortunately was giving a lot of her blood pressure medications as well after the dialysis and there has been some problems with reconciling her home blood pressure medications. She has also not been very compliant with her diet at home. She was previously seen by Dr. 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 She was sent at that time to the [facility] for possible intervention. Past Medical History Allergies/Adverse Reactions: Allergies lisinopril Allergy (Verified 11/17/17 14:32) Swelling nebivolol HCl [From Bystolic] Adverse Reaction (Verified 11/17/17 14:32) bradycardia BRADYCARDIA Home Medications: Ambulatory Orders Medication Instructions Recorded Acetaminophen [Tylenol] 650 mg PO Q4H PRN 07/27/17 Carvedilol [Coreg] 12.5 mg PO BID 07/27/17 Cholecalciferol (Vitamin D3) 5,000 unit PO MOWEFR 07/27/17 [Vitamin D3] Clonidine HCl 0.1 mg PO BID 07/27/17 Clopidogrel Bisulfate [Plavix] 75 mg PO DAILY 07/27/17 Cyclobenzaprine HCl 5 mg PO BID PRN 07/27/17 Gabapentin [Neurontin] 100 mg PO TID 07/27/17 Insulin Aspart [Novolog Flexpen] See Protocol SC ACHS 07/27/17 Insulin Detemir [Levemir] 22 unit SQ QHS 07/27/17 amiodarone 200 mg tablet 200 mg PO Q12H 08/21/17 aspirin 81 mg tablet,delayed 81 mg PO .daily tab 08/21/17 release atorvastatin 10 mg tablet 40 mg PO QDAY 08/21/17 diltiazem CD 240 mg 240 mg PO QDAY cap 08/21/17 capsule,extended release 24 hr isosorbide mononitrate ER 60 mg 60 mg PO BID 08/21/17 tablet,extended release 24 hr losartan 50 mg tablet 50 mg PO BID 08/21/17 oxycodone 7.5 mg tablet,oral ONLY 7.5 mg PO Q4H 08/21/17 (not for feeding tubes) pantoprazole 40 mg tablet,delayed 40 mg PO QDAY 08/21/17 release promethazine 12.5 mg tablet 12.5 mg PO Q6H PRN 08/21/17 vitamin B complex and vitamin C 1 cap PO QDAY 08/21/17 no.20-folic acid 1 mg capsule Amlodipine [Norvasc] 5 mg PO DAILY 11/17/17 Calcium Acetate 667 mg PO TIDCM 11/17/17 Docusate Sodium [Colace] 100 mg PO DAILY 11/17/17 Hydralazine HCl 100 mg PO DAILY 11/17/17 Past Medical History (Chronic Problems): Chronic Problems (Last Reviewed 08/21/17 @ 14:33 by Pat Gomez) Fracture of fifth metatarsal bone of right foot (Chronic) Other specified peripheral vascular diseases (Chronic) Afib (Chronic) Congenital coronary artery anomaly (Chronic) S/P PTCA (percutaneous transluminal coronary angioplasty) (Chronic) Bradycardia (Chronic) CAD (coronary artery disease) (Chronic) Diabetes mellitus, type II (Chronic) Hyperlipidemia (Chronic) Hypothyroidism (Chronic) Anemia in chronic kidney disease (Chronic) Hypertension (Chronic) End stage renal disease on dialysis (Chronic) Surgical History: angioplasty, hysterectomy, total knee arthroplasty, - - cardiac stents, 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 - *Family History Maternal Family History: Family History (Last Updated 08/21/17 @ 14:36 by Pat Gomez) Sister Diabetes Hypertension History Items: Cancer - uterine Paternal Family History: Family History (Last Updated 08/21/17 @ 14:36 by Pat Gomez) Sister Diabetes Hypertension History Items: Cancer Sibling Family History: Family History (Last Updated 08/21/17 @ 14:36 by Pat Gomez) Sister Diabetes Hypertension History Items: Diabetes Lives: Spouse/ Significant Other Smoking Status: Former smoker Tobacco Use: Non-smoker Alcohol: None Drugs: None Review of Systems - Review of Systems General: Reports: Fatigue. Denies: Fever, Night Sweats Cardiovascular: Denies: Chest Discomfort, Shortness of Breath, Orthopnea, PND, Peripheral Edema, Palpitations, Lightheadedness, Dizziness, Near Syncope, Syncope Respiratory: Denies: Cough, Sputum Production, Hemoptysis Gastrointestinal: Denies: Hematemesis, Hematochezia, Melena Genitourinary: Denies: Dysuria, Hematuria Skin: Denies: Rash Subjectve: Elderly lady looks rather fatigued with a dry tongue Objective: Vital Signs Temp Pulse Resp BP Pulse Ox 98.0 F 48 L 14 88/43 L 97 11/18/17 08:30 11/18/17 12:57 11/18/17 12:40 11/18/17 12:57 11/18/17 12:57 Oxygen Flow Rate (L/min) 3 Oxygen Delivery Method Nasal Cannula Weight: 190 lb 4.143 oz Body Mass Index (BMI) 32.4 Intake and Output for Last 24 Hours 11/16/17 11/17/17 11/18/17 23:59 23:59 23:59 Intake Total 490 / 490 Output Total 7600 / 7600 Balance -7110 / -7110 General: Awake, Alert, Oriented x 3 HEENT: PERRL, EOMI, Sclera Non Icteric Neck: Supple, Good ROM, No Lymph Node Enlargement Lungs: Clear to auscultation Cardiovascular: Regular Rhythm, Normal S1, Normal S2, No Murmurs, No Rubs, No Gallops Vascular: No Carotid Bruits, Normal Femoral Pulses, Normal Radial Pulses, Normal Dorsalis Pedal Pulse, Normal Posterior Tibial Pulses Abdomen: Bowel Sounds Present, Soft, Non Tender, No HSM, No Organomegaly Extremities: No Cyanosis, No Clubbing, No edema Neurological: No Focal Motor or Sensory Deficit 11/17/17 19:23: Troponin I 0.052 H 11/17/17 22:10: Troponin I 0.063 H 11/18/17 06:25: WBC 4.8, RBC 3.76 L, Hgb 11.2 L, Hct 36.3 L, MCV 96.5, MCH 29.8, MCHC 30.9 L, RDW 21.5 H, RDW Differential 71.9 H, Plt Count 119 L, MPV 9.6 11/18/17 06:25: Sodium 132 L, Potassium 4.6, Chloride 95 L, Carbon Dioxide 29.0, Anion Gap 8, BUN 36 H, Creatinine 2.70 H, Est GFR (MDRD) Af Amer 22 L, Est GFR (MDRD) Non-Af 18 L, BUN/Creatinine Ratio 13.3, Glucose 142 H, Calcium 8.5, Triglycerides 74, Cholesterol 73, LDL Cholesterol 22, VLDL Cholesterol 15, HDL Cholesterol 36 L 11/18/17 12:00: Troponin I 0.063 H Rhythm: EKG: Initial electrocardiogram demonstrates atrial tachycardia with a ventricular response rate of [address]-T wave changes. Follow-up electric cardiogram this morning demonstrates atrial tachycardia with a rate of 49 bpm. ECHO: Previous echocardiogram in 2013 demonstrated an ejection fraction of 35-40%, with 1+ mitral regurgitation, pulmonary artery systolic pressure of 56 mmHg, mild aortic stenosis. Assessment/Plan 1. Abnormal cardiac enzymes. Patient has mildly abnormal cardiac enzymes which are likely secondary to demand ischemia. Patient has known coronary artery disease. My recommendation at this time would be to improve her blood pressure with administration of intravenous fluids. We will cycle cardiac enzymes and obtain an echocardiogram. 2. Hypotension. The patient's hypotension is likely secondary to the over dialysis as well as demonstration of the medications. My recommendation was to continue with IV fluid resuscitation and to obtain an echocardiogram in a.m. She does have a previous history of left ventricular systolic dysfunction as well as some valvular heart disease. 3. Coronary artery disease. She does have history of known coronary artery disease with a totally occluded circumflex artery and high-grade stenosis noted in the right coronary artery. She was sent for high risk angioplasty at [facility]. It is not clear whether she underwent the above procedure. We will attempt to obtain the records. At this time she does not have any evidence of overt angina and my plan and recommendation is to observe her for now on her current medical therapy. Further recommendations will be made after the full events from [facility] are clear. 4. Left ventricular systolic dysfunction. She does have a history of left ventricular systolic dysfunction. This is based on echocardiogram from March 2017. She had previously had normal left ventricular size and function. We will repeat echocardiogram in a.m. to reassess the above. 5. Valvular heart disease. She does have evidence of mitral regurgitation as well as tricuspid regurgitation and moderate pulmonary hypertension. She also has mild aortic stenosis. This will be reevaluated again with the echocardiogram and further recommendations will then be made. 6. Atrial fibrillation. She appears to have an atrial tachyarrhythmia and her initial presenting rhythm demonstrated this. She is at the moment bradycardic likely secondary to her clonidine administration. We will see how she does with withholding any of the above. I would recommend holding off on anticoagulation for the time being. The above has been discussed with the patient's relatives, the patient herself as well as the hospitalist. Thank you for allowing me to participate in the care of your patient. Please don't hesitate to call if any issues arise
--- NOTE | 2017-11-18 13:45 | NURSING ---
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
--- NOTE | 2017-11-18 13:46 | CON.PCM_ITS ---
Reason for Consult Date of Consultation: 11/18/17 Reason for Consultation: Hypotension and abnormal cardiac enzymes History of Present Illness: The patient is a 72 F [presented the emergency department complaint of dyspnea since yesterday. Patient also complains of swollen feet and pain in her feet for several weeks. Patient states that she has a broken right foot has been wearing a walking boot. Patient having a lot of pain in her left foot as well. Patient's gained 20-30 pounds over the last 3 weeks. Patient is a dialysis patient and her last dialysis was yesterday. They apparently dialyzed over 3 L of fluid on her. Today while in the progressive care unit she had an episode of hypotension with her blood pressure in the 80s and then also had T-wave inversions. When she had presented to the emergency room she was noted to be in what appeared to be a junctional tachycardia with a rate of approximately 108 bpm. She denies any chest pain. She has had chronically elevated troponin. At this time she has been given about a liter of fluids and her blood pressure is 96 systolic. She unfortunately was giving a lot of her blood pressure medications as well after the dialysis and there has been some problems with reconciling her home blood pressure medications. She has also not been very compliant with her diet at home. She was previously seen by Dr. 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 She was sent at that time to the [facility] for possible intervention. Past Medical History Allergies/Adverse Reactions: Allergies lisinopril Allergy (Verified 11/17/17 14:32) Swelling nebivolol HCl [From Bystolic] Adverse Reaction (Verified 11/17/17 14:32) bradycardia BRADYCARDIA Home Medications: Ambulatory Orders Medication Instructions Recorded Acetaminophen [Tylenol] 650 mg PO Q4H PRN 07/27/17 Carvedilol [Coreg] 12.5 mg PO BID 07/27/17 Cholecalciferol (Vitamin D3) 5,000 unit PO MOWEFR 07/27/17 [Vitamin D3] Clonidine HCl 0.1 mg PO BID 07/27/17 Clopidogrel Bisulfate [Plavix] 75 mg PO DAILY 07/27/17 Cyclobenzaprine HCl 5 mg PO BID PRN 07/27/17 Gabapentin [Neurontin] 100 mg PO TID 07/27/17 Insulin Aspart [Novolog Flexpen] See Protocol SC ACHS 07/27/17 Insulin Detemir [Levemir] 22 unit SQ QHS 07/27/17 amiodarone 200 mg tablet 200 mg PO Q12H 08/21/17 aspirin 81 mg tablet,delayed 81 mg PO .daily tab 08/21/17 release atorvastatin 10 mg tablet 40 mg PO QDAY 08/21/17 diltiazem CD 240 mg 240 mg PO QDAY cap 08/21/17 capsule,extended release 24 hr isosorbide mononitrate ER 60 mg 60 mg PO BID 08/21/17 tablet,extended release 24 hr losartan 50 mg tablet 50 mg PO BID 08/21/17 oxycodone 7.5 mg tablet,oral ONLY 7.5 mg PO Q4H 08/21/17 (not for feeding tubes) pantoprazole 40 mg tablet,delayed 40 mg PO QDAY 08/21/17 release promethazine 12.5 mg tablet 12.5 mg PO Q6H PRN 08/21/17 vitamin B complex and vitamin C 1 cap PO QDAY 08/21/17 no.20-folic acid 1 mg capsule Amlodipine [Norvasc] 5 mg PO DAILY 11/17/17 Calcium Acetate 667 mg PO TIDCM 11/17/17 Docusate Sodium [Colace] 100 mg PO DAILY 11/17/17 Hydralazine HCl 100 mg PO DAILY 11/17/17 Past Medical History (Chronic Problems): Chronic Problems (Last Reviewed 08/21/17 @ 14:33 by Pat Gomez) Fracture of fifth metatarsal bone of right foot (Chronic) Other specified peripheral vascular diseases (Chronic) Afib (Chronic) Congenital coronary artery anomaly (Chronic) S/P PTCA (percutaneous transluminal coronary angioplasty) (Chronic) Bradycardia (Chronic) CAD (coronary artery disease) (Chronic) Diabetes mellitus, type II (Chronic) Hyperlipidemia (Chronic) Hypothyroidism (Chronic) Anemia in chronic kidney disease (Chronic) Hypertension (Chronic) End stage renal disease on dialysis (Chronic) Surgical History: angioplasty, hysterectomy, total knee arthroplasty, - - cardiac stents, 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 - *Family History Maternal Family History: Family History (Last Updated 08/21/17 @ 14:36 by Pat Gomez) Sister Diabetes Hypertension History Items: Cancer - uterine Paternal Family History: Family History (Last Updated 08/21/17 @ 14:36 by Pat Gomez) Sister Diabetes Hypertension History Items: Cancer Sibling Family History: Family History (Last Updated 08/21/17 @ 14:36 by Pat Gomez) Sister Diabetes Hypertension History Items: Diabetes Lives: Spouse/ Significant Other Smoking Status: Former smoker Tobacco Use: Non-smoker Alcohol: None Drugs: None Review of Systems - Review of Systems General: Reports: Fatigue. Denies: Fever, Night Sweats Cardiovascular: Denies: Chest Discomfort, Shortness of Breath, Orthopnea, PND, Peripheral Edema, Palpitations, Lightheadedness, Dizziness, Near Syncope, Syncope Respiratory: Denies: Cough, Sputum Production, Hemoptysis Gastrointestinal: Denies: Hematemesis, Hematochezia, Melena Genitourinary: Denies: Dysuria, Hematuria Skin: Denies: Rash Subjectve: Elderly lady looks rather fatigued with a dry tongue Objective: Vital Signs Temp Pulse Resp BP Pulse Ox 98.0 F 48 L 14 88/43 L 97 11/18/17 08:30 11/18/17 12:57 11/18/17 12:40 11/18/17 12:57 11/18/17 12:57 Oxygen Flow Rate (L/min) 3 Oxygen Delivery Method Nasal Cannula Weight: 190 lb 4.143 oz Body Mass Index (BMI) 32.4 Intake and Output for Last 24 Hours 11/16/17 11/17/17 11/18/17 23:59 23:59 23:59 Intake Total 490 / 490 Output Total 7600 / 7600 Balance -7110 / -7110 General: Awake, Alert, Oriented x 3 HEENT: PERRL, EOMI, Sclera Non Icteric Neck: Supple, Good ROM, No Lymph Node Enlargement Lungs: Clear to auscultation Cardiovascular: Regular Rhythm, Normal S1, Normal S2, No Murmurs, No Rubs, No Gallops Vascular: No Carotid Bruits, Normal Femoral Pulses, Normal Radial Pulses, Normal Dorsalis Pedal Pulse, Normal Posterior Tibial Pulses Abdomen: Bowel Sounds Present, Soft, Non Tender, No HSM, No Organomegaly Extremities: No Cyanosis, No Clubbing, No edema Neurological: No Focal Motor or Sensory Deficit 11/17/17 19:23: Troponin I 0.052 H 11/17/17 22:10: Troponin I 0.063 H 11/18/17 06:25: WBC 4.8, RBC 3.76 L, Hgb 11.2 L, Hct 36.3 L, MCV 96.5, MCH 29.8 , MCHC 30.9 L, RDW 21.5 H, RDW Differential 71.9 H, Plt Count 119 L, MPV 9.6 11/18/17 06:25: Sodium 132 L, Potassium 4.6, Chloride 95 L, Carbon Dioxide 29.0 , Anion Gap 8, BUN 36 H, Creatinine 2.70 H, Est GFR (MDRD) Af Amer 22 L, Est GFR (MDRD) Non-Af 18 L, BUN/Creatinine Ratio 13.3, Glucose 142 H, Calcium 8.5, Triglycerides 74, Cholesterol 73, LDL Cholesterol 22, VLDL Cholesterol 15, HDL Cholesterol 36 L 11/18/17 12:00: Troponin I 0.063 H Rhythm: EKG: Initial electrocardiogram demonstrates atrial tachycardia with a ventricular response rate of [address]-T wave changes. Follow-up electric cardiogram this morning demonstrates atrial tachycardia with a rate of 49 bpm. ECHO: Previous echocardiogram in 2013 demonstrated an ejection fraction of 35-40 %, with 1+ mitral regurgitation, pulmonary artery systolic pressure of 56 mmHg, mild aortic stenosis. Assessment/Plan 1. Abnormal cardiac enzymes. Patient has mildly abnormal cardiac enzymes which are likely secondary to demand ischemia. Patient has known coronary artery disease. My recommendation at this time would be to improve her blood pressure with administration of intravenous fluids. We will cycle cardiac enzymes and obtain an echocardiogram. 2. Hypotension. The patient's hypotension is likely secondary to the over dialysis as well as demonstration of the medications. My recommendation was to continue with IV fluid resuscitation and to obtain an echocardiogram in a.m. She does have a previous history of left ventricular systolic dysfunction as well as some valvular heart disease. 3. Coronary artery disease. She does have history of known coronary artery disease with a totally occluded circumflex artery and high-grade stenosis noted in the right coronary artery. She was sent for high risk angioplasty at [facility]. It is not clear whether she underwent the above procedure. We will attempt to obtain the records. At this time she does not have any evidence of overt angina and my plan and recommendation is to observe her for now on her current medical therapy. Further recommendations will be made after the full events from [facility] are clear. 4. Left ventricular systolic dysfunction. She does have a history of left ventricular systolic dysfunction. This is based on echocardiogram from March 2017. She had previously had normal left ventricular size and function. We will repeat echocardiogram in a.m. to reassess the above. 5. Valvular heart disease. She does have evidence of mitral regurgitation as well as tricuspid regurgitation and moderate pulmonary hypertension. She also has mild aortic stenosis. This will be reevaluated again with the echocardiogram and further recommendations will then be made. 6. Atrial fibrillation. She appears to have an atrial tachyarrhythmia and her initial presenting rhythm demonstrated this. She is at the moment bradycardic likely secondary to her clonidine administration. We will see how she does with withholding any of the above. I would recommend holding off on anticoagulation for the time being. The above has been discussed with the patient's relatives, the patient herself as well as the hospitalist. Thank you for allowing me to participate in the care of your patient. Please don't hesitate to call if any issues arise
--- NOTE | 2017-11-18 13:58 | PCM.PN.HOSP ---
Subjective: Patient was seen and examined early in the morning. She got dialyzed yesterday and got 7.6 L of fluid removed. She denies dizziness, chest pain, SOB earlier. She however got all her BP meds and later complained of feeling of passing out. Her BP then was in the 80s systolic. EKG showed worsening T-wave inversions in the inferolateral leads. She received fluid boluses. Her troponins remained about the same. Cardiology has been consulted. The patient's wanted to find out if salted green olives were okay because the patient has been taking jars of it every day. The daughter confirmed that the mother loves salted green olives and I explained that this may be the reason for the chronic fluid overload state that dialysis has been battling with. Vitals/I&O's: Vital Signs Temp Pulse Resp BP Pulse Ox 98.0 F 48 L 14 88/43 L 97 11/18/17 08:30 11/18/17 12:57 11/18/17 12:40 11/18/17 12:57 11/18/17 12:57 Oxygen Flow Rate (L/min) 3 Oxygen Delivery Method Nasal Cannula Weight: 86.3 kg Body Mass Index (BMI) 32.4 Intake and Output for Last 24 Hours 11/16/17 11/17/17 11/18/17 23:59 23:59 23:59 Intake Total 490 / 490 Output Total 7600 / 7600 Balance -7110 / -7110 General: Alert, Cooperative, Lethargic HEENT: Atraumatic, PERRLA, EOMI, Normocephalic Oral: Dry Mucosa Neck: Supple Lungs: Clear to auscultation, Normal air movement Cardiovascular: Regular rate, Regular Rhythm, Normal S1, Normal S2, No murmurs Abdomen: Bowel Sounds Present, Soft, Non Tender, Non-Distended Extremities: No edema, Capillary Refill Less than 3 Seconds Skin: No rashes, No breakdown Musculoskeletal: No Tenderness to Palpation of Joints or Extremities Neurological: Cranial nerves II-XII grossly intact Psych/Mental Status: Normal Affect, Appropriate Laboratory Results 11/17/17 19:23: Troponin I 0.052 H 11/17/17 21:31: POC Glucose 180 H 11/17/17 22:10: Troponin I 0.063 H 11/18/17 00:17: POC Glucose 149 H 11/18/17 06:25: WBC 4.8, RBC 3.76 L, Hgb 11.2 L, Hct 36.3 L, MCV 96.5, MCH 29.8, MCHC 30.9 L, RDW 21.5 H, RDW Differential 71.9 H, Plt Count 119 L, MPV 9.6, Differential Comment 11/18/17 06:25: Sodium 132 L, Potassium 4.6, Chloride 95 L, Carbon Dioxide 29.0, Anion Gap 8, BUN 36 H, Creatinine 2.70 H, Estim Creat Clear Calc 16.45, Est GFR (MDRD) Af Amer 22 L, Est GFR (MDRD) Non-Af 18 L, BUN/Creatinine Ratio 13.3, Glucose 142 H, Calcium 8.5, Triglycerides 74, Cholesterol 73, LDL Cholesterol 22, VLDL Cholesterol 15, HDL Cholesterol 36 L 11/18/17 06:48: POC Glucose 137 H 11/18/17 12:00: Troponin I 0.063 H Current Medications Acetaminophen (Tylenol) 650 mg PO Q6H PRN PRN PRN Reason: Mild Pain (scale 0-3)/T>100.7 Amiodarone HCl (Cordarone) 200 mg PO BID [facility] Last Admin: 11/18/17 08:27 Dose: 200 mg [facility]ir[facility] ([facility]cot[facility]) [facility] Last Admin: 11/18/17 08:25 Dose: 81 mg Atorvastatin Calcium (Lipitor) 40 mg PO QHS [facility] Last Admin: 11/18/17 00:23 Dose: 40 mg Bisacodyl (Dulcolax) 5 mg PO DAILY PRN PRN PRN Reason: Constipation Calcium Acetate (Phoslo Gel Cap) 667 mg PO TIDCM [facility] Last Admin: 11/18/17 11:43 Dose: Not Given Cholecalciferol (Vitamin D) 5,000 unit PO MOWEFR [facility] Clopidogrel Bisulfate (Plavix) 75 mg PO DAILY [facility] Last Admin: 11/18/17 08:30 Dose: 75 mg Cyclobenzaprine HCl (Cyclobenzaprine Hcl) 5 mg PO BID PRN PRN PRN Reason: SPASMS Dextrose (D50w Syringe) 0 gm IV X1 PRN; Protocol PRN Reason: Hypoglycemia Docusate Sodium (Colace) 100 mg PO DAILY [facility] Last Admin: 11/18/17 08:27 Dose: Not Given Gabapentin (Neurontin) 100 mg PO TIDCM [facility] Last Admin: 11/18/17 11:43 Dose: Not Given Glucagon () 1 mg IM .X1 PRN PRN Reason: Hypoglycemia Heparin Sodium (Porcine) (Heparin Na) 5,000 unit SC Q12 [facility] Last Admin: 11/18/17 08:31 Dose: 5,000 units Insulin Glargine (Lantus ([facility])) 22 units SC QHS [facility] Last Admin: 11/18/17 00:22 Dose: Not Given Insulin Human Lispro (Humalog Kwikpen ([facility])) 0 unit SQ ACHS [facility] PRN Reason: Protocol Last Admin: 11/18/17 11:43 Dose: Not Given Isosorbide Mononitrate (Imdur) 60 mg PO BID [facility] Last Admin: 11/18/17 08:29 Dose: 60 mg Magnesium Hydroxide (Milk Of Magnesia) 30 ml PO DAILY PRN PRN Reason: Constipation Multivit/Ca Carb/B Cmplx/FA/Prenat (Nephrocaps, Renaphro) 1 capsule PO DAILY [facility] Last Admin: 11/18/17 08:29 Dose: 1 capsule Nutritional Formula (Lactose Free) (Glucerna Shake) 120 ml PO 4X/DAY [facility] Last Admin: 11/18/17 11:43 Dose: Not Given Ondansetron HCl (Zofran) 4 mg IV Q8H PRN PRN PRN Reason: NAUSEA Oxycodone HCl (Oxyir) 7.5 mg PO Q4H PRN PRN PRN Reason: PAIN Last Admin: 11/18/17 08:23 Dose: 7.5 mg Pantoprazole Sodium (Protonix) 40 mg PO DAILY [facility] Last Admin: 11/18/17 08:30 Dose: 40 mg Psyllium Hydrophilic Mucilloid (Metamucil) 1 packet PO DAILY PRN PRN PRN Reason: CONSTIPATION Sodium Chloride () 5 - 30 ml IV UD PRN PRN Reason: SALINE FLUSH Medical Necessity - Tobacco Use Smoking Status: Former smoker Tobacco Use: Non-smoker Assessment/Plan All Active Problems (Last Reviewed 08/21/17 @ 14:33 by Pat Gomez) Fall (Acute) Gait instability (Acute) Pain in right ankle and joints of right foot (Acute) Ileus (Acute) Unstable angina pectoris (Acute) NSTEMI (non-ST elevated myocardial infarction) (Acute) Hyperkalemia (Acute) Chest pressure (Acute) 72 year old F with past medical history of ESRD on hemodialysis, last had emergent dialysis yesterday. Patient comes to the ED with complaints of shortness of breath that was worse since yesterday. She is a M-W-F dialysis patient of Dr. Crawley. She sustained fracture of the right foot and has been wearing a walking boot. She admits that she has gained about 30 pounds over the last 3 weeks. She describes abdominal distention and discomfort ongoing for weeks. 1. Shock likely hypovolemic versus cardiac, secondary to fluid removal from dialysis last night and blood pressure medication and pain medication side effect, status post fluid boluses, will transfer to ICU, monitor closely, patient may need pressors, asp net mvc developer consulted, cardiology consulted. 2. Acute NSTEMI secondary to demand ischemia. T-wave inversions in the inferolateral leads on EKG today compared to yesterday's EKG. Troponin is mildly elevated, H/o NSTEMI, s/p cardiac cath 2017, left circumflex artery occlusion, patient was referred to [facility] - will get records. No indication for anticoagulation per cardiology, will follow-up on 2D echo, and cardiology recommendations. 3. Dyspnea secondary to Acute on chronic fluid overload in a patient with history of ESRD on hemodialysis, less likely due to acute CHF exacerbation, ECHO 2017 showed EF 30-40%, previouis EF at cardiac cath was normal. And also has chronic respiratory failure and is on 3 L of oxygen, remains the same 4. Type 2 DM, sugars are controlled, continue on home insulin regimen 5. Hypothyroidism, continue on levothyroxine 6. Hyperkalemia, resolved with dialysis 7. DVT prophylaxis with heparin subcu 8. Code status: Full code Discussed patient's plan of care in depth with the family, she has no living will or advanced directives. Her daughter wants her to be full code for now while she discusses this with with her 3 other siblings. I spent time in explaining the different code statuses and any details of what happens during CPR and subsequently. They do know that the mother would not want anything like being on a machine but they feel there is so much happening at the same time that they needed time to think about it. Time spent on advance care plannin mins Code Visit Inpatient E&M: 91225 Subs Hosp L3 Procedures: 08208 Advncd Care Plan 30 Min
--- NOTE | 2017-11-18 14:12 | PN_ITS ---
Subjective: Patient was seen and examined early in the morning. She got dialyzed yesterday and got 7.6 L of fluid removed. She denies dizziness, chest pain, SOB earlier. She however got all her BP meds and later complained of feeling of passing out. Her BP then was in the 80s systolic. EKG showed worsening T-wave inversions in the inferolateral leads. She received fluid boluses. Her troponins remained about the same. Cardiology has been consulted. The patient's wanted to find out if salted green olives were okay because the patient has been taking jars of it every day. The daughter confirmed that the mother loves salted green olives and I explained that this may be the reason for the chronic fluid overload state that dialysis has been battling with. Vitals/I&O's: Vital Signs Temp Pulse Resp BP Pulse Ox 98.0 F 48 L 14 88/43 L 97 11/18/17 08:30 11/18/17 12:57 11/18/17 12:40 11/18/17 12:57 11/18/17 12:57 Oxygen Flow Rate (L/min) 3 Oxygen Delivery Method Nasal Cannula Weight: 86.3 kg Body Mass Index (BMI) 32.4 Intake and Output for Last 24 Hours 11/16/17 11/17/17 11/18/17 23:59 23:59 23:59 Intake Total 490 / 490 Output Total 7600 / 7600 Balance -7110 / -7110 General: Alert, Cooperative, Lethargic HEENT: Atraumatic, PERRLA, EOMI, Normocephalic Oral: Dry Mucosa Neck: Supple Lungs: Clear to auscultation, Normal air movement Cardiovascular: Regular rate, Regular Rhythm, Normal S1, Normal S2, No murmurs Abdomen: Bowel Sounds Present, Soft, Non Tender, Non-Distended Extremities: No edema, Capillary Refill Less than 3 Seconds Skin: No rashes, No breakdown Musculoskeletal: No Tenderness to Palpation of Joints or Extremities Neurological: Cranial nerves II-XII grossly intact Psych/Mental Status: Normal Affect, Appropriate Laboratory Results 11/17/17 19:23: Troponin I 0.052 H 11/17/17 21:31: POC Glucose 180 H 11/17/17 22:10: Troponin I 0.063 H 11/18/17 00:17: POC Glucose 149 H 11/18/17 06:25: WBC 4.8, RBC 3.76 L, Hgb 11.2 L, Hct 36.3 L, MCV 96.5, MCH 29.8 , MCHC 30.9 L, RDW 21.5 H, RDW Differential 71.9 H, Plt Count 119 L, MPV 9.6, Differential Comment 11/18/17 06:25: Sodium 132 L, Potassium 4.6, Chloride 95 L, Carbon Dioxide 29.0 , Anion Gap 8, BUN 36 H, Creatinine 2.70 H, Estim Creat Clear Calc 16.45, Est GFR (MDRD) Af Amer 22 L, Est GFR (MDRD) Non-Af 18 L, BUN/Creatinine Ratio 13.3, Glucose 142 H, Calcium 8.5, Triglycerides 74, Cholesterol 73, LDL Cholesterol 22 , VLDL Cholesterol 15, HDL Cholesterol 36 L 11/18/17 06:48: POC Glucose 137 H 11/18/17 12:00: Troponin I 0.063 H Current Medications Acetaminophen (Tylenol) 650 mg PO Q6H PRN PRN PRN Reason: Mild Pain (scale 0-3)/T>100.7 Amiodarone HCl (Cordarone) 200 mg PO BID [facility] Last Admin: 11/18/17 08:27 Dose: 200 mg [facility] ([facility]cot[facility]) [facility] Last Admin: 11/18/17 08:25 Dose: 81 mg Atorvastatin Calcium (Lipitor) 40 mg PO QHS [facility] Last Admin: 11/18/17 00:23 Dose: 40 mg Bisacodyl (Dulcolax) 5 mg PO DAILY PRN PRN PRN Reason: Constipation Calcium Acetate (Phoslo Gel Cap) 667 mg PO TIDCM [facility] Last Admin: 11/18/17 11:43 Dose: Not Given Cholecalciferol (Vitamin D) 5,000 unit PO MOWEFR [facility] Clopidogrel Bisulfate (Plavix) 75 mg PO DAILY [facility] Last Admin: 11/18/17 08:30 Dose: 75 mg Cyclobenzaprine HCl (Cyclobenzaprine Hcl) 5 mg PO BID PRN PRN PRN Reason: SPASMS Dextrose (D50w Syringe) 0 gm IV X1 PRN; Protocol PRN Reason: Hypoglycemia Docusate Sodium (Colace) 100 mg PO DAILY [facility] Last Admin: 11/18/17 08:27 Dose: Not Given Gabapentin (Neurontin) 100 mg PO TIDCM [facility] Last Admin: 11/18/17 11:43 Dose: Not Given Glucagon () 1 mg IM .X1 PRN PRN Reason: Hypoglycemia Heparin Sodium (Porcine) (Heparin Na) 5,000 unit SC Q12 [facility] Last Admin: 11/18/17 08:31 Dose: 5,000 units Insulin Glargine (Lantus ([facility])) 22 units SC QHS [facility] Last Admin: 11/18/17 00:22 Dose: Not Given Insulin Human Lispro (Humalog Kwikpen ([facility])) 0 unit SQ ACHS [facility] PRN Reason: Protocol Last Admin: 11/18/17 11:43 Dose: Not Given Isosorbide Mononitrate (Imdur) 60 mg PO BID [facility] Last Admin: 11/18/17 08:29 Dose: 60 mg Magnesium Hydroxide (Milk Of Magnesia) 30 ml PO DAILY PRN PRN Reason: Constipation Multivit/Ca Carb/B Cmplx/FA/Prenat (Nephrocaps, Renaphro) 1 capsule PO DAILY [facility] Last Admin: 11/18/17 08:29 Dose: 1 capsule Nutritional Formula (Lactose Free) (Glucerna Shake) 120 ml PO 4X/DAY [facility] Last Admin: 11/18/17 11:43 Dose: Not Given Ondansetron HCl (Zofran) 4 mg IV Q8H PRN PRN PRN Reason: NAUSEA Oxycodone HCl (Oxyir) 7.5 mg PO Q4H PRN PRN PRN Reason: PAIN Last Admin: 11/18/17 08:23 Dose: 7.5 mg Pantoprazole Sodium (Protonix) 40 mg PO DAILY [facility] Last Admin: 11/18/17 08:30 Dose: 40 mg Psyllium Hydrophilic Mucilloid (Metamucil) 1 packet PO DAILY PRN PRN PRN Reason: CONSTIPATION Sodium Chloride () 5 - 30 ml IV UD PRN PRN Reason: SALINE FLUSH Medical Necessity - Tobacco Use Smoking Status: Former smoker Tobacco Use: Non-smoker Assessment/Plan All Active Problems (Last Reviewed 08/21/17 @ 14:33 by Pat Gomez) Fall (Acute) Gait instability (Acute) Pain in right ankle and joints of right foot (Acute) Ileus (Acute) Unstable angina pectoris (Acute) NSTEMI (non-ST elevated myocardial infarction) (Acute) Hyperkalemia (Acute) Chest pressure (Acute) 72 year old F with past medical history of ESRD on hemodialysis, last had emergent dialysis yesterday. Patient comes to the ED with complaints of shortness of breath that was worse since yesterday. She is a M-W-F dialysis patient of Dr. Crawley. She sustained fracture of the right foot and has been wearing a walking boot. She admits that she has gained about 30 pounds over the last 3 weeks. She describes abdominal distention and discomfort ongoing for weeks. 1. Shock likely hypovolemic versus cardiac, secondary to fluid removal from dialysis last night and blood pressure medication and pain medication side effect, status post fluid boluses, will transfer to ICU, monitor closely, patient may need pressors, paint stock clerk consulted, cardiology consulted. 2. Acute NSTEMI secondary to demand ischemia. T-wave inversions in the inferolateral leads on EKG today compared to yesterday's EKG. Troponin is mildly elevated, H/o NSTEMI, s/p cardiac cath 2017, left circumflex artery occlusion, patient was referred to [facility] - will get records. No indication for anticoagulation per cardiology, will follow-up on 2D echo, and cardiology recommendations. 3. Dyspnea secondary to Acute on chronic fluid overload in a patient with history of ESRD on hemodialysis, less likely due to acute CHF exacerbation, ECHO 2017 showed EF 30-40%, previouis EF at cardiac cath was normal. And also has chronic respiratory failure and is on 3 L of oxygen, remains the same 4. Type 2 DM, sugars are controlled, continue on home insulin regimen 5. Hypothyroidism, continue on levothyroxine 6. Hyperkalemia, resolved with dialysis 7. DVT prophylaxis with heparin subcu 8. Code status: Full code Discussed patient's plan of care in depth with the family, she has no living will or advanced directives. Her daughter wants her to be full code for now while she discusses this with with her 3 other siblings. I spent time in explaining the different code statuses and any details of what happens during CPR and subsequently. They do know that the mother would not want anything like being on a machine but they feel there is so much happening at the same time that they needed time to think about it. Time spent on advance care plannin mins Code Visit Inpatient E&M: 76577 Subs Hosp L3 Procedures: 68746 Advncd Care Plan 30 Min
[2017-11-18 15:06] LABS: Base Excess 2 mmol/L (-2 to +2); Bicarbonate 26.5 mmol/L (22-26); Blood Gas Specimen Type ART; O2 Delivery Device Nasal Can; PO2 78 mmHG (75-100); SITE R Brachial; SO2 95 % (95-99); Time Given 1500; Total Carbon Dioxide 28 mmol/L
[2017-11-18] MEDS: Insulin Lispro 100 UNIT/ML INSULN.PEN SQ ×2 (16:10→21:56)
[2017-11-18] MEDS: Acetaminophen 325 MG Tablet 650 MG PO (16:11)
[2017-11-18 16:15] LABS: Bedside Glucose 183 mg/dL (70-110)
[2017-11-18] MEDS: Atropine Sulfate 1 MG/10 ML Syringe 0.5 MG IV (16:46)
[2017-11-18] MEDS: 0.9% NaCl Peripheral Flush Adult/Peds IV (16:46)
[2017-11-18] MEDS: 0.9% Normal Saline 1,000 ML 100 ML IV (16:47)
[2017-11-18 17:13] LABS: M R Staph aureus DNA By PCR Negative (Negative); Probe Check PASS; Specimen Processing Control PASS
[2017-11-18] MEDS: Ondansetron 4 MG/2 ML Vial IV (18:23)
[2017-11-18 18:39] LABS: Absolute Lymphocyte Count 0.82 X10^3/ul (0.83-4.51); Absolute Neutrophil Count 4.1 X10^3/uL (2.0-7.7); Basophil# 0.02 X10^3/uL; Basophil% 0.4 % (0-1); Eosinophils% 3.6 % (0-5); Hematocrit 38.8 % (37-47); Hemoglobin 11.5 g/dl (12.0-15.0); Lymphocyte # 0.82 X10^3/ul (4.0); Lymphocyte % 14.7 % (19-41); Mean Corp Hgb Conc 29.6 g/gl (32-36); Mean Corpuscular Volume 97.7 fL (81-99); Mean Platelet Vol. 9.8 fl (6.2-12.0); Monocyte# 0.37 X10^3/uL; Monocyte% 6.7 % (0-10); Neutrophil # 4.14 X10^3/uL (2.7-7.7); Neutrophil % 74.4 % (47-70); Platelet Count 130 K/mm3 (150-450); RBC Distribution Width CV 21.1 % (11.6-14.6); RBC Distribution Width SD 72.8 fl (35.1-43.9); Red Blood Count 3.97 M/mm3 (4.2-5.4); White Blood Count 5.6 K/mm3 (4.4-11.0)
[2017-11-18 18:40] LABS: Differential Indicated SCAN CRITERIA MET; POSITIVE COUNT NO; POSITIVE DIFFERENTIAL NO; POSITIVE MORPHOLOGY YES
[2017-11-18 18:45] LABS: ALB/GLOB Ratio 0.7 RATIO (0.9-2.4); AST(SGOT) 14 U/L (15-37); Alanine Aminotransfer ALT/SGPT 9 U/L (13-56); Albumin, Serum 1.9 g/dL (3.2-5.0); Alkaline Phosphatase 79 U/L (45-117); Anion Gap 10 (5-15); BUN 32 mg/dL (7-18); BUN/Creat Ratio 14.3 RATIO (10-20); Calcium,Total 6.1 mg/dL (8.5-10.1); Chloride 109 mmol/L (98-107); Creatinine, Serum 2.24 mg/dL (0.55-1.02); EST Glomerular Filtration Rate 23 mL/min (>60); Est Glom Filt Rate - Afr Amer 27 mL/min (>60); Estimated Creatinine Clearance 19.83 ml/min; Globulin 2.8 g/dL (2.2-4.2); Glucose 152 mg/dL (74-106); Magnesium 1.2 mg/dL (1.6-2.6); Phosphorus 4.7 mg/dL (2.5-4.9); Potassium 4.1 mmol/L (3.5-5.1); Protein, Total 4.7 g/dL (6.4-8.2); Sodium Level 140 mmol/L (136-145)
--- NOTE | 2017-11-18 18:56 | NURSING ---
central line placed to RIJ per Dr. Jauregui. CXR ordered for placement confirmation
--- NOTE | 2017-11-18 19:01 | PCM.OP.BLANK ---
Problem List (1) Hypotension Status: Acute Operative Report Date of Procedure: 11/18/17 Right internal jugular triple lumen catheter Indications: Hypotension and need for pressors Risks and benefits were explained to do patient as well as her family. Patient was aware of the risks of bleeding and pneumothorax is possible risks associated with procedure. Understood the benefits of giving her pressor agents which patient is currently on Levofed already running through peripheral artery. Description: The using ultrasound the right internal jugular was identified. The area was then prepped and draped in a sterile fashion. The area was locally anesthetized with lidocaine. And using ultrasound guidance internal jugular vein was catheterized and dark red nonpulsatile blood was identified. Using modified Seldinger technique triple-lumen was advanced over guidewire after ablation of the skin. All ports flushed and adiel well. The triple lumen catheter was sutured in place. Estimated blood loss was approximately 5 cc Follow-up chest x-ray shows triple lumen catheter is just above the right atrium. And no pneumothorax. Right IJ triple lumen catheter is able to be used. Code Visit Procedures: 63160 Insert Non-tunnel CV Cath
--- NOTE | 2017-11-18 19:56 | RAD_ITS ---
STUDY: X-RAY CHEST REASON FOR EXAM: Female, 72 years old. Central line placement TECHNIQUE: Single AP portable view of the chest. COMPARISON: 11/17/2017. FINDINGS: Right IJ line terminates in the lower SVC. The lungs are clear and expanded. There is no demonstrated pleural abnormality. There is moderate to severe cardiac enlargement. Normal mediastinum and roxy. Normal visualized pulmonary arteries. Normal visualized aortic arch and descending thoracic aorta. Normal visualized thoracic spine. Normal visualized ribs, clavicles, and shoulders. There is no demonstrated abnormality of the visualized soft tissue structures of the upper abdomen. RAD/Chest 1 View (Portable) IMPRESSION: Moderate to severe cardiomegaly. No definite acute chest disease. Electronically Signed: Ramos Morales MD at 19:29 EDT , Service support ,
[2017-11-18 20:18] LABS: Anisocytosis 3+; Differential Comment SCANNED; Macrocytosis 1+; Platelet Estimate ADEQUATE (ADEQ); Polychromasia RARE; Schistocytes RARE; Tear Drop Cell RARE
[2017-11-18 20:31] LABS: Bedside Glucose 201 mg/dL (70-110)
[2017-11-18] MEDS: fentaNYL 100 MCG/2 ML Ampul 50 MCG IV ×2 (20:46→22:52)
[2017-11-18] MEDS: Nepro Liquid 120 ML LIQUID PO (21:56)
[2017-11-18 22:11] LABS: Bedside Glucose 222 mg/dL (70-110)
[2017-11-19] VITALS (43 sets, daily range): BP systolic 87–170; BP diastolic 28–96; PULSE 43–79; RESP 10–24; TEMP 36.3–37.1; O2SAT 90–97
[2017-11-19] MEDS: fentaNYL 100 MCG/2 ML Ampul 50 MCG IV ×4 (01:21→21:51)
[2017-11-19] MEDS: 0.9% NaCl Peripheral Flush Adult/Peds IV ×2 (01:25→21:52)
[2017-11-19 04:21] LABS: Absolute Lymphocyte Count 1.58 X10^3/ul (0.83-4.51); Absolute Neutrophil Count 5.1 X10^3/uL (2.0-7.7); Basophil# 0.04 X10^3/uL; Basophil% 0.5 % (0-1); Eosinophil# 0.11 X10^3/uL; Eosinophils% 1.5 % (0-5); Hematocrit 38.3 % (37-47); Hemoglobin 11.8 g/dl (12.0-15.0); Lymphocyte # 1.58 X10^3/ul (4.0); Lymphocyte % 21.3 % (19-41); Mean Corp Hgb Conc 30.8 g/gl (32-36); Mean Corpuscular Hgb 29.9 pg (27.0-32.0); Mean Corpuscular Volume 97.2 fL (81-99); Mean Platelet Vol. 10.2 fl (6.2-12.0); Monocyte# 0.53 X10^3/uL; Monocyte% 7.2 % (0-10); Neutrophil # 5.11 X10^3/uL (2.7-7.7); Platelet Count 191 K/mm3 (150-450); RBC Distribution Width CV 21.4 % (11.6-14.6); RBC Distribution Width SD 70.8 fl (35.1-43.9); Red Blood Count 3.94 M/mm3 (4.2-5.4); White Blood Count 7.4 K/mm3 (4.4-11.0)
[2017-11-19 04:22] LABS: Differential Indicated SCAN CRITERIA MET; POSITIVE COUNT NO; POSITIVE DIFFERENTIAL NO; POSITIVE MORPHOLOGY YES
[2017-11-19 04:42] LABS: Anion Gap 12 (5-15); Anisocytosis 2+; BUN 44 mg/dL (7-18); BUN/Creat Ratio 12.9 RATIO (10-20); Calcium,Total 8.4 mg/dL (8.5-10.1); Chloride 96 mmol/L (98-107); Differential Comment SCANNED; EST Glomerular Filtration Rate 14 mL/min (>60); Est Glom Filt Rate - Afr Amer 17 mL/min (>60); Estimated Creatinine Clearance 13.06 ml/min; Glucose 229 mg/dL (74-106); Phosphorus 7.5 mg/dL (2.5-4.9); Potassium 5.8 mmol/L (3.5-5.1); Sodium Level 134 mmol/L (136-145)
[2017-11-19] MEDS: 0.9% Normal Saline 1,000 ML 75 ML IV (05:01)
--- NOTE | 2017-11-19 07:15 | PCM.CON.CC ---
Reason for Consult Date of Consultation: 11/19/17 Reason for Consultation: Hypotension History of Present Illness: The patient is a 72-year-old female, with a history as outlined below, who initially presented to the emergency department on November 17 with complaints of shortness of breath. The patient has a history of diabetes associated end-stage renal disease, for which she is hemodialysis dependent on Sunday, Sunday, Sunday. The patient also has an additional history of coronary artery disease, left ventricular systolic dysfunction and valvular heart disease. Prior echocardiogram from March 2017 did reveal evidence of combined systolic and diastolic heart failure along with an RVSP estimated to be 56 mmHg. On presentation to the emergency department, the patient was noted to be afebrile, tachycardic and hypertensive. She was initially maintaining appropriate oxygen saturations on room air. Laboratory evaluation revealed no evidence of a leukocytosis. Chemistry profile revealed a potassium level of 5.6 with a creatinine of 2.97. Troponin was elevated to 0.059 with an elevated BNP to 2411. Plain film chest x-ray revealed no acute cardiopulmonary process. CT abdomen/pelvis revealed mild to moderate abdominal ascites with a 1.9 cm low-attenuation mass in the central liver. On November 18, the patient underwent hemodialysis with 3.8 L of fluid removed. She subsequently went on to develop hypotension after having received all of her home antihypertensive medications. The patient was given supplemental IV fluid hydration. A central venous catheter was placed and she was subsequently transferred to the medical intensive care unit, where Levophed was initiated to maintain hemodynamic stability. Past Medical History Past Medical History (Chronic Problems): Chronic Problems (Last Reviewed 08/21/17 @ 14:33 by Pat Gomez) Fracture of fifth metatarsal bone of right foot (Chronic) Other specified peripheral vascular diseases (Chronic) Afib (Chronic) Congenital coronary artery anomaly (Chronic) S/P PTCA (percutaneous transluminal coronary angioplasty) (Chronic) Bradycardia (Chronic) CAD (coronary artery disease) (Chronic) Diabetes mellitus, type II (Chronic) Hyperlipidemia (Chronic) Hypothyroidism (Chronic) Anemia in chronic kidney disease (Chronic) Hypertension (Chronic) End stage renal disease on dialysis (Chronic) Medical History: Medical History (Last Reviewed 08/21/17 @ 14:33 by Pat Gomez) Fracture of fifth metatarsal bone of right foot (Chronic) S92.351A Fall (Acute) W19.XXXA Gait instability (Acute) R26.81 Other specified peripheral vascular diseases (Chronic) I73.89 Pain in right ankle and joints of right foot (Acute) M25.571 Ileus (Acute) K56.7 Afib (Chronic) I48.91 Congenital coronary artery anomaly (Chronic) Q24.5 Unstable angina pectoris (Acute) NSTEMI (non-ST elevated myocardial infarction) (Acute) I21.4 Hyperkalemia (Acute) E87.5 Chest pressure (Acute) R07.89 Bradycardia (Chronic) R00.1 CAD (coronary artery disease) (Chronic) I25.10 Diabetes mellitus, type II (Chronic) E11.9 Hyperlipidemia (Chronic) E78.5 Hypothyroidism (Chronic) E03.9 Anemia in chronic kidney disease (Chronic) N18.9, D63.1 Hypertension (Chronic) I10 End stage renal disease on dialysis (Chronic) N18.6, Z99.2 Allergies lisinopril Allergy (Verified 11/17/17 14:32) Swelling nebivolol HCl [From Bystolic] Adverse Reaction (Verified 11/17/17 14:32) bradycardia BRADYCARDIA Home Medications: Ambulatory Orders Medication Instructions Recorded Acetaminophen [Tylenol] 650 mg PO Q4H PRN 07/27/17 Carvedilol [Coreg] 12.5 mg PO BID 07/27/17 Cholecalciferol (Vitamin D3) 5,000 unit PO MOWEFR 07/27/17 [Vitamin D3] Clonidine HCl 0.1 mg PO BID 07/27/17 Clopidogrel Bisulfate [Plavix] 75 mg PO DAILY 07/27/17 Cyclobenzaprine HCl 5 mg PO BID PRN 07/27/17 Gabapentin [Neurontin] 100 mg PO TID 07/27/17 Insulin Aspart [Novolog Flexpen] See Protocol SC ACHS 07/27/17 Insulin Detemir [Levemir] 22 unit SQ QHS 07/27/17 amiodarone 200 mg tablet 200 mg PO Q12H 08/21/17 aspirin 81 mg tablet,delayed 81 mg PO .daily tab 08/21/17 release atorvastatin 10 mg tablet 40 mg PO QDAY 08/21/17 diltiazem CD 240 mg 240 mg PO QDAY cap 08/21/17 capsule,extended release 24 hr isosorbide mononitrate ER 60 mg 60 mg PO BID 08/21/17 tablet,extended release 24 hr losartan 50 mg tablet 50 mg PO BID 08/21/17 oxycodone 7.5 mg tablet,oral ONLY 7.5 mg PO Q4H 08/21/17 (not for feeding tubes) pantoprazole 40 mg tablet,delayed 40 mg PO QDAY 08/21/17 release promethazine 12.5 mg tablet 12.5 mg PO Q6H PRN 08/21/17 vitamin B complex and vitamin C 1 cap PO QDAY 08/21/17 no.20-folic acid 1 mg capsule Amlodipine [Norvasc] 5 mg PO DAILY 11/17/17 Calcium Acetate 667 mg PO TIDCM 11/17/17 Docusate Sodium [Colace] 100 mg PO DAILY 11/17/17 Hydralazine HCl 100 mg PO DAILY 11/17/17 Surgical History: Surgical History (Last Updated 08/21/17 @ 14:35 by Pat Gomez) S/P PTCA (percutaneous transluminal coronary angioplasty) (Chronic) Z98.61 History of colectomy Z90.49 History of hysterectomy Z90.710 History of laparoscopic cholecystectomy Z90.49 History of total right knee replacement Z96.651 Hx of foot surgery Z98.890 history left A-V fistula Surgical History: angioplasty, hysterectomy, total knee arthroplasty, - - cardiac stents, 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 Lives: Spouse/ Significant Other Smoking Status: Former smoker Tobacco Use: Non-smoker Alcohol: None Drugs: None - *Family History Maternal Family History: Family History (Last Updated 08/21/17 @ 14:36 by Pat Gomez) Sister Diabetes Hypertension History Items: Cancer - uterine Paternal Family History: Family History (Last Updated 08/21/17 @ 14:36 by Pat Gomez) Sister Diabetes Hypertension History Items: Cancer Sibling Family History: Family History (Last Updated 08/21/17 @ 14:36 by Pat Gomez) Sister Diabetes Hypertension History Items: Diabetes Review of Systems Constitutional: Reports: Weakness, Weight Change, Fatigue. Denies: Chills, Fever Eyes: Denies: Blurred vision, Double vision HEENT: Denies: Head Aches, Sinus Congestion, Sinus Drainage Cardiovascular: Denies: Chest Pain, Palpitations Respiratory: Denies: Cough, Shortness of breath at rest, Sputum production Gastrointestinal: Reports: Abdominal Pain. Denies: Diarrhea, Nausea, Vomiting Genitourinary: Denies: Dysuria Musculoskeletal: Reports: Back Pain Skin: Denies: Rash, Wounds Neurological: Denies: Numbness, Tingling, Focal weakness Psychiatric: Denies: Anxiety, Depression, Homicidal Ideations, Suicidal Ideations Hematologic/ Lymphatic: Denies: Easy Bruising, Easy Bleeding Patient Problems: Active and Suspected Problems (Last Reviewed 08/21/17 @ 14:33 by Pat Gomez) Hypotension (Acute) Objective: The patient's most recent lab work, culture data and imaging studies have all been personally reviewed. Blood cultures are currently pending. - Physical Exam General: Alert, Cooperative, No apparent distress HEENT: Atraumatic, PERRLA, Normocephalic Oral: Dry Mucosa Neck: Supple, No Nodes, Trachea Midline, - - Right IJ central venous catheter in place Lungs: No rhonchi, No wheeze, No rales, Diminished Cardiovascular: Regular rate, Regular Rhythm, Normal S1, Normal S2, No murmurs Abdomen: Bowel Sounds Present, Soft, Non-Distended, Obese Extremities: No clubbing, No cyanosis, No edema Skin: No breakdown Musculoskeletal: No Muscle Wasting Neurological: Neuro grossly intact Psych/Mental Status: Restless Vital Signs Temp Pulse Resp BP Pulse Ox 97.3 F L 44 L 23 H 121/40 H 90 11/19/17 06:00 11/19/17 06:00 11/19/17 06:00 11/19/17 06:00 11/19/17 06:00 Oxygen Flow Rate (L/min) 3 Oxygen Delivery Method Nasal Cannula Weight: 197 lb 5.019 oz Body Mass Index (BMI) 32.4 Intake and Output for Last 24 Hours 11/17/17 11/18/17 11/19/17 23:59 23:59 23:59 Intake Total 4200.8 / 4200.8 762 / 762 Output Total 3800 / 3800 0 / 0 Balance 400.8 / 400.8 762 / 762 Laboratory Tests Past 24 Hrs 11/18/17 11/18/17 11/18/17 06:25 06:25 12:00 WBC 4.8 RBC 3.76 L Hgb 11.2 L Hct 36.3 L MCV 96.5 MCH 29.8 MCHC 30.9 L RDW 21.5 H RDW Differential 71.9 H Plt Count 119 L MPV 9.6 Immature Gran % (Auto) Neut % (Auto) Lymph % (Auto) Rankin % (Auto) Eos % (Auto) Baso % (Auto) Absolute Neuts (auto) Absolute Lymphs (auto) Total Counted Differential Comment Platelet Estimate Polychromasia Anisocytosis Macrocytosis Tear Drop Cells Schistocytes Specimen Type Sample Site pH Bicarbonate Actual POC Total CO2 Base Excess O2 Saturation ABG pCO2 ABG pO2 O2 Delivery Device Liter Flow Blood Gas Notified Whom Blood Gas Notified Time Sodium 132 L Potassium 4.6 Chloride 95 L Carbon Dioxide 29.0 Anion Gap 8 BUN 36 H Creatinine 2.70 H Estim Creat Clear Calc 16.45 Est GFR (MDRD) Af Amer 22 L Est GFR (MDRD) Non-Af 18 L BUN/Creatinine Ratio 13.3 Glucose 142 H Calcium 8.5 Phosphorus Magnesium Total Bilirubin AST ALT Alkaline Phosphatase Troponin I 0.063 H Total Protein Albumin Globulin Albumin/Globulin Ratio Triglycerides 74 Cholesterol 73 LDL Cholesterol 22 VLDL Cholesterol 15 HDL Cholesterol 36 L MRSA (PCR) 11/18/17 11/18/17 11/18/17 14:10 14:40 15:00 WBC RBC Hgb Hct MCV MCH MCHC RDW RDW Differential Plt Count MPV Immature Gran % (Auto) Neut % (Auto) Lymph % (Auto) Rankin % (Auto) Eos % (Auto) Baso % (Auto) Absolute Neuts (auto) Absolute Lymphs (auto) Total Counted Differential Comment Platelet Estimate Polychromasia Anisocytosis Macrocytosis Tear Drop Cells Schistocytes Specimen Type ART Sample Site R Brachial pH 7.40 Bicarbonate Actual 26.5 H POC Total CO2 28 Base Excess 2 O2 Saturation 95 ABG pCO2 43.0 ABG pO2 78 O2 Delivery Device Nasal Can Liter Flow 3.0 Blood Gas Notified Whom [facility] Blood Gas Notified Time 1500 Sodium Potassium Chloride Carbon Dioxide Anion Gap BUN Creatinine Estim Creat Clear Calc Est GFR (MDRD) Af Amer Est GFR (MDRD) Non-Af BUN/Creatinine Ratio Glucose Calcium Phosphorus Magnesium Total Bilirubin AST ALT Alkaline Phosphatase Troponin I 0.050 H Total Protein Albumin Globulin Albumin/Globulin Ratio Triglycerides Cholesterol LDL Cholesterol VLDL Cholesterol HDL Cholesterol MRSA (PCR) Negative 11/18/17 11/18/17 11/18/17 17:55 17:55 18:15 WBC 5.6 RBC 3.97 L Hgb 11.5 L Hct 38.8 MCV 97.7 MCH 29.0 MCHC 29.6 L RDW 21.1 H RDW Differential 72.8 H Plt Count 130 L MPV 9.8 Immature Gran % (Auto) 0.200 Neut % (Auto) 74.4 H Lymph % (Auto) 14.7 L Rankin % (Auto) 6.7 Eos % (Auto) 3.6 Baso % (Auto) 0.4 Absolute Neuts (auto) 4.1 Absolute Lymphs (auto) 0.82 L Total Counted Not Reportable Differential Comment SCANNED Platelet Estimate ADEQUATE Polychromasia RARE Anisocytosis 3+ Macrocytosis 1+ Tear Drop Cells RARE Schistocytes RARE Specimen Type Sample Site pH Bicarbonate Actual POC Total CO2 Base Excess O2 Saturation ABG pCO2 ABG pO2 O2 Delivery Device Liter Flow Blood Gas Notified Whom Blood Gas Notified Time Sodium 140 Potassium 4.1 Chloride 109 H Carbon Dioxide 21.0 Anion Gap 10 BUN 32 H Creatinine 2.24 H Estim Creat Clear Calc 19.83 Est GFR (MDRD) Af Amer 27 L Est GFR (MDRD) Non-Af 23 L BUN/Creatinine Ratio 14.3 Glucose 152 H Calcium 6.1 L* Phosphorus 4.7 Magnesium 1.2 L Total Bilirubin 0.70 AST 14 L ALT 9 L Alkaline Phosphatase 79 Troponin I 0.043 Total Protein 4.7 L Albumin 1.9 L Globulin 2.8 Albumin/Globulin Ratio 0.7 L Triglycerides Cholesterol LDL Cholesterol VLDL Cholesterol HDL Cholesterol MRSA (PCR) 11/19/17 11/19/17 04:10 04:10 WBC 7.4 RBC 3.94 L Hgb 11.8 L Hct 38.3 MCV 97.2 MCH 29.9 MCHC 30.8 L RDW 21.4 H RDW Differential 70.8 H Plt Count 191 MPV 10.2 Immature Gran % (Auto) 0.500 Neut % (Auto) 69.0 Lymph % (Auto) 21.3 Rankin % (Auto) 7.2 Eos % (Auto) 1.5 Baso % (Auto) 0.5 Absolute Neuts (auto) 5.1 Absolute Lymphs (auto) 1.58 Total Counted Not Reportable Differential Comment SCANNED Platelet Estimate Polychromasia Anisocytosis 2+ Macrocytosis Tear Drop Cells Schistocytes Specimen Type Sample Site pH Bicarbonate Actual POC Total CO2 Base Excess O2 Saturation ABG pCO2 ABG pO2 O2 Delivery Device Liter Flow Blood Gas Notified Whom Blood Gas Notified Time Sodium 134 L Potassium 5.8 H Chloride 96 L Carbon Dioxide 26.0 Anion Gap 12 BUN 44 H Creatinine 3.40 H Estim Creat Clear Calc 13.06 Est GFR (MDRD) Af Amer 17 L Est GFR (MDRD) Non-Af 14 L BUN/Creatinine Ratio 12.9 Glucose 229 H Calcium 8.4 L Phosphorus 7.5 H Magnesium Total Bilirubin AST ALT Alkaline Phosphatase Troponin I Total Protein Albumin Globulin Albumin/Globulin Ratio Triglycerides Cholesterol LDL Cholesterol VLDL Cholesterol HDL Cholesterol MRSA (PCR) POC Glucose 11/18/17 11/18/17 11/18/17 21:54 16:06 11:05 POC Glucose 222 H 183 H 201 H Clinical Impression(s) from Imaging Studies Chest X-Ray 11/17/17 15:17 IMPRESSION: No acute findings Electronically Signed: Jsaon Danielle DO at 15:36 EDT Tel , Service support , Abdomen/Pelvis CT 11/17/17 15:21 IMPRESSION: [id number] ascites in all quadrants. 1.9 cm low-attenuation mass in the central liver, axial image 37. Suggest further evaluation perhaps with contrast MRI, and consider biopsy. Severe renal atrophy. Cannot occluded segments of bowel wall thickening. Electronically Signed: Ramos Morales MD at 17:08 EDT , Service support , Chest CTA 11/17/17 15:21 IMPRESSION: 1. No evidence of pulmonary embolism or thoracic aortic dissection 2. Stable scarring in both lung bases without acute airspace disease Electronically Signed: Jason Danielle DO at 17:09 EDT Tel , Service support , Chest X-Ray 11/18/17 19:56 IMPRESSION: Moderate to severe cardiomegaly. No definite acute chest disease. Electronically Signed: Ramos Morales MD at 19:29 EDT , Service support , Assessment/Plan Active and Suspected Problems (Last Reviewed 08/21/17 @ 14:33 by Pat Gomez) Hypotension (Acute) RECOMMENDATIONS: 1. Continue Levophed to maintain a mean arterial pressure at or above 60 mmHg. 2. Discontinue continuous supplemental IV fluids 3. Continue hemodialysis per nephrology recommendations. Avoid fluid removal, if the patient's hemodynamics become further compromised. 4. Continue to hold beta-morelia/antihypertensives 5. Continue fentanyl for pain control for now 6. Agree with additional workup of the patient's abnormal abdominal imaging. IMPRESSIONS: 1. Combined shock Likely multifactorial in etiology with cardiac, hypovolemia and polypharmacy contributing. The patient's hemodynamics have stabilized with the use of Levophed, which will be continued to maintain a mean arterial pressure at or above 60 mmHg. The patient is to undergo additional dialysis today. However, would recommend running her overall net even, if her Levophed requirement increases at all. Continue to hold beta-morelia and all antihypertensives. 2. Acute hypoxic respiratory insufficiency Likely secondary to decompensated heart failure in the setting of dietary indiscretions. Recommend discontinuing supplemental IV fluids. Continue hemodialysis per nephrology recommendations. Wean supplemental oxygen to maintain saturations at or above 90%. Encourage incentive spirometer use and mobilize patient as tolerated. 3. Non-ST elevation myocardial infarction/coronary artery disease Continue medical management per cardiology recommendations. Repeat echocardiogram is pending. 4. Undifferentiated abdominal pain The patient has undifferentiated abdominal pain, which appears to be an acute issue for her. CT abdomen/pelvis obtained on presentation was limited due to his lack of IV/p.o. contrast. Agree with obtaining liver ultrasound. If the etiology for the patient's abdominal pain remains unclear, would recommend additional imaging with MRI versus CT with contrast, as the patient could be dialyzed following contrast administration. Continue fentanyl for pain control for now. 5. Neuropathy/obesity/hyperlipidemia/GERD/hypertension/diabetes Complicates care, management, recovery and prognosis. Continue Lantus and sliding scale insulin coverage. The patient will require physical therapy evaluation. Antihypertensives are currently on hold. TIME: 45 minutes of critical care time, independent of procedures, was spent addressing the patient's combined hypovolemic and cardiogenic shock, acute hypoxic respiratory insufficiency, non-ST elevation myocardial infarction, undifferentiated abdominal pain, review of all data and collaboration with the care team. ([id number]) Code Visit [id number]: [id number] Critical care first hour
--- NOTE | 2017-11-19 07:26 | CON.PCM_ITS ---
Reason for Consult Date of Consultation: 11/19/17 Reason for Consultation: Hypotension History of Present Illness: The patient is a 72-year-old female, with a history as outlined below, who initially presented to the emergency department on November 17 with complaints of shortness of breath. The patient has a history of diabetes associated end- stage renal disease, for which she is hemodialysis dependent on Sunday, Sunday, Sunday. The patient also has an additional history of coronary artery disease, left ventricular systolic dysfunction and valvular heart disease. Prior echocardiogram from March 2017 did reveal evidence of combined systolic and diastolic heart failure along with an RVSP estimated to be 56 mmHg. On presentation to the emergency department, the patient was noted to be afebrile, tachycardic and hypertensive. She was initially maintaining appropriate oxygen saturations on room air. Laboratory evaluation revealed no evidence of a leukocytosis. Chemistry profile revealed a potassium level of 5.6 with a creatinine of 2.97. Troponin was elevated to 0.059 with an elevated BNP to 2411. Plain film chest x-ray revealed no acute cardiopulmonary process. CT abdomen/pelvis revealed mild to moderate abdominal ascites with a 1.9 cm low-attenuation mass in the central liver. On November 18, the patient underwent hemodialysis with 3.8 L of fluid removed. She subsequently went on to develop hypotension after having received all of her home antihypertensive medications. The patient was given supplemental IV fluid hydration. A central venous catheter was placed and she was subsequently transferred to the medical intensive care unit, where Levophed was initiated to maintain hemodynamic stability. Past Medical History Past Medical History (Chronic Problems): Chronic Problems (Last Reviewed 08/21/17 @ 14:33 by Pat Gomez) Fracture of fifth metatarsal bone of right foot (Chronic) Other specified peripheral vascular diseases (Chronic) Afib (Chronic) Congenital coronary artery anomaly (Chronic) S/P PTCA (percutaneous transluminal coronary angioplasty) (Chronic) Bradycardia (Chronic) CAD (coronary artery disease) (Chronic) Diabetes mellitus, type II (Chronic) Hyperlipidemia (Chronic) Hypothyroidism (Chronic) Anemia in chronic kidney disease (Chronic) Hypertension (Chronic) End stage renal disease on dialysis (Chronic) Medical History: Medical History (Last Reviewed 08/21/17 @ 14:33 by Pat Gomez) Fracture of fifth metatarsal bone of right foot (Chronic) S92.351A Fall (Acute) W19.XXXA Gait instability (Acute) R26.81 Other specified peripheral vascular diseases (Chronic) I73.89 Pain in right ankle and joints of right foot (Acute) M25.571 Ileus (Acute) K56.7 Afib (Chronic) I48.91 Congenital coronary artery anomaly (Chronic) Q24.5 Unstable angina pectoris (Acute) NSTEMI (non-ST elevated myocardial infarction) (Acute) I21.4 Hyperkalemia (Acute) E87.5 Chest pressure (Acute) R07.89 Bradycardia (Chronic) R00.1 CAD (coronary artery disease) (Chronic) I25.10 Diabetes mellitus, type II (Chronic) E11.9 Hyperlipidemia (Chronic) E78.5 Hypothyroidism (Chronic) E03.9 Anemia in chronic kidney disease (Chronic) N18.9, D63.1 Hypertension (Chronic) I10 End stage renal disease on dialysis (Chronic) N18.6, Z99.2 Allergies lisinopril Allergy (Verified 11/17/17 14:32) Swelling nebivolol HCl [From Bystolic] Adverse Reaction (Verified 11/17/17 14:32) bradycardia BRADYCARDIA Home Medications: Ambulatory Orders Medication Instructions Recorded Acetaminophen [Tylenol] 650 mg PO Q4H PRN 07/27/17 Carvedilol [Coreg] 12.5 mg PO BID 07/27/17 Cholecalciferol (Vitamin D3) 5,000 unit PO MOWEFR 07/27/17 [Vitamin D3] Clonidine HCl 0.1 mg PO BID 07/27/17 Clopidogrel Bisulfate [Plavix] 75 mg PO DAILY 07/27/17 Cyclobenzaprine HCl 5 mg PO BID PRN 07/27/17 Gabapentin [Neurontin] 100 mg PO TID 07/27/17 Insulin Aspart [Novolog Flexpen] See Protocol SC ACHS 07/27/17 Insulin Detemir [Levemir] 22 unit SQ QHS 07/27/17 amiodarone 200 mg tablet 200 mg PO Q12H 08/21/17 aspirin 81 mg tablet,delayed 81 mg PO .daily tab 08/21/17 release atorvastatin 10 mg tablet 40 mg PO QDAY 08/21/17 diltiazem CD 240 mg 240 mg PO QDAY cap 08/21/17 capsule,extended release 24 hr isosorbide mononitrate ER 60 mg 60 mg PO BID 08/21/17 tablet,extended release 24 hr losartan 50 mg tablet 50 mg PO BID 08/21/17 oxycodone 7.5 mg tablet,oral ONLY 7.5 mg PO Q4H 08/21/17 (not for feeding tubes) pantoprazole 40 mg tablet,delayed 40 mg PO QDAY 08/21/17 release promethazine 12.5 mg tablet 12.5 mg PO Q6H PRN 08/21/17 vitamin B complex and vitamin C 1 cap PO QDAY 08/21/17 no.20-folic acid 1 mg capsule Amlodipine [Norvasc] 5 mg PO DAILY 11/17/17 Calcium Acetate 667 mg PO TIDCM 11/17/17 Docusate Sodium [Colace] 100 mg PO DAILY 11/17/17 Hydralazine HCl 100 mg PO DAILY 11/17/17 Surgical History: Surgical History (Last Updated 08/21/17 @ 14:35 by Pat Gomez) S/P PTCA (percutaneous transluminal coronary angioplasty) (Chronic) Z98.61 History of colectomy Z90.49 History of hysterectomy Z90.710 History of laparoscopic cholecystectomy Z90.49 History of total right knee replacement Z96.651 Hx of foot surgery Z98.890 history left A-V fistula Surgical History: angioplasty, hysterectomy, total knee arthroplasty, - - cardiac stents, [employer] History: No pertinent [employer] history Lives: Spouse/ Significant Other Smoking Status: Former smoker Tobacco Use: Non-smoker Alcohol: None Drugs: None - *Family History Maternal Family History: Family History (Last Updated 08/21/17 @ 14:36 by Pat Gomez) Sister Diabetes Hypertension History Items: Cancer - uterine Paternal Family History: Family History (Last Updated 08/21/17 @ 14:36 by Pat Gomez) Sister Diabetes Hypertension History Items: Cancer Sibling Family History: Family History (Last Updated 08/21/17 @ 14:36 by Pat Gomez) Sister Diabetes Hypertension History Items: Diabetes Review of Systems Constitutional: Reports: Weakness, Weight Change, Fatigue. Denies: Chills, Fever Eyes: Denies: Blurred vision, Double vision HEENT: Denies: Head Aches, Sinus Congestion, Sinus Drainage Cardiovascular: Denies: Chest Pain, Palpitations Respiratory: Denies: Cough, Shortness of breath at rest, Sputum production Gastrointestinal: Reports: Abdominal Pain. Denies: Diarrhea, Nausea, Vomiting Genitourinary: Denies: Dysuria Musculoskeletal: Reports: Back Pain Skin: Denies: Rash, Wounds Neurological: Denies: Numbness, Tingling, Focal weakness Psychiatric: Denies: Anxiety, Depression, Homicidal Ideations, Suicidal Ideations Hematologic/ Lymphatic: Denies: Easy Bruising, Easy Bleeding Patient Problems: Active and Suspected Problems (Last Reviewed 08/21/17 @ 14:33 by Pat Gomez) Hypotension (Acute) Objective: The patient's most recent lab work, culture data and imaging studies have all been personally reviewed. Blood cultures are currently pending. - Physical Exam General: Alert, Cooperative, No apparent distress HEENT: Atraumatic, PERRLA, Normocephalic Oral: Dry Mucosa Neck: Supple, No Nodes, Trachea Midline, - - Right IJ central venous catheter in place Lungs: No rhonchi, No wheeze, No rales, Diminished Cardiovascular: Regular rate, Regular Rhythm, Normal S1, Normal S2, No murmurs Abdomen: Bowel Sounds Present, Soft, Non-Distended, Obese Extremities: No clubbing, No cyanosis, No edema Skin: No breakdown Musculoskeletal: No Muscle Wasting Neurological: Neuro grossly intact Psych/Mental Status: Restless Vital Signs Temp Pulse Resp BP Pulse Ox 97.3 F L 44 L 23 H 121/40 H 90 11/19/17 06:00 11/19/17 06:00 11/19/17 06:00 11/19/17 06:00 11/19/17 06:00 Oxygen Flow Rate (L/min) 3 Oxygen Delivery Method Nasal Cannula Weight: 197 lb 5.019 oz Body Mass Index (BMI) 32.4 Intake and Output for Last 24 Hours 11/17/17 11/18/17 11/19/17 23:59 23:59 23:59 Intake Total 4200.8 / 4200.8 762 / 762 Output Total 3800 / 3800 0 / 0 Balance 400.8 / 400.8 762 / 762 Laboratory Tests Past 24 Hrs 11/18/17 11/18/17 11/18/17 06:25 06:25 12:00 WBC 4.8 RBC 3.76 L Hgb 11.2 L Hct 36.3 L MCV 96.5 MCH 29.8 MCHC 30.9 L RDW 21.5 H RDW Differential 71.9 H Plt Count 119 L MPV 9.6 Immature Gran % (Auto) Neut % (Auto) Lymph % (Auto) Anderson % (Auto) Eos % (Auto) Baso % (Auto) Absolute Neuts (auto) Absolute Lymphs (auto) Total Counted Differential Comment Platelet Estimate Polychromasia Anisocytosis Macrocytosis Tear Drop Cells Schistocytes Specimen Type Sample Site pH Bicarbonate Actual POC Total CO2 Base Excess O2 Saturation ABG pCO2 ABG pO2 O2 Delivery Device Liter Flow Blood Gas Notified Whom Blood Gas Notified Time Sodium 132 L Potassium 4.6 Chloride 95 L Carbon Dioxide 29.0 Anion Gap 8 BUN 36 H Creatinine 2.70 H Estim Creat Clear Calc 16.45 Est GFR (MDRD) Af Amer 22 L Est GFR (MDRD) Non-Af 18 L BUN/Creatinine Ratio 13.3 Glucose 142 H Calcium 8.5 Phosphorus Magnesium Total Bilirubin AST ALT Alkaline Phosphatase Troponin I 0.063 H Total Protein Albumin Globulin Albumin/Globulin Ratio Triglycerides 74 Cholesterol 73 LDL Cholesterol 22 VLDL Cholesterol 15 HDL Cholesterol 36 L MRSA (PCR) 11/18/17 11/18/17 11/18/17 14:10 14:40 15:00 WBC RBC Hgb Hct MCV MCH MCHC RDW RDW Differential Plt Count MPV Immature Gran % (Auto) Neut % (Auto) Lymph % (Auto) Anderson % (Auto) Eos % (Auto) Baso % (Auto) Absolute Neuts (auto) Absolute Lymphs (auto) Total Counted Differential Comment Platelet Estimate Polychromasia Anisocytosis Macrocytosis Tear Drop Cells Schistocytes Specimen Type ART Sample Site R Brachial pH 7.40 Bicarbonate Actual 26.5 H POC Total CO2 28 Base Excess 2 O2 Saturation 95 ABG pCO2 43.0 ABG pO2 78 O2 Delivery Device Nasal Can Liter Flow 3.0 Blood Gas Notified Whom [facility] Blood Gas Notified Time 1500 Sodium Potassium Chloride Carbon Dioxide Anion Gap BUN Creatinine Estim Creat Clear Calc Est GFR (MDRD) Af Amer Est GFR (MDRD) Non-Af BUN/Creatinine Ratio Glucose Calcium Phosphorus Magnesium Total Bilirubin AST ALT Alkaline Phosphatase Troponin I 0.050 H Total Protein Albumin Globulin Albumin/Globulin Ratio Triglycerides Cholesterol LDL Cholesterol VLDL Cholesterol HDL Cholesterol MRSA (PCR) Negative 11/18/17 11/18/17 11/18/17 17:55 17:55 18:15 WBC 5.6 RBC 3.97 L Hgb 11.5 L Hct 38.8 MCV 97.7 MCH 29.0 MCHC 29.6 L RDW 21.1 H RDW Differential 72.8 H Plt Count 130 L MPV 9.8 Immature Gran % (Auto) 0.200 Neut % (Auto) 74.4 H Lymph % (Auto) 14.7 L Anderson % (Auto) 6.7 Eos % (Auto) 3.6 Baso % (Auto) 0.4 Absolute Neuts (auto) 4.1 Absolute Lymphs (auto) 0.82 L Total Counted Not Reportable Differential Comment SCANNED Platelet Estimate ADEQUATE Polychromasia RARE Anisocytosis 3+ Macrocytosis 1+ Tear Drop Cells RARE Schistocytes RARE Specimen Type Sample Site pH Bicarbonate Actual POC Total CO2 Base Excess O2 Saturation ABG pCO2 ABG pO2 O2 Delivery Device Liter Flow Blood Gas Notified Whom Blood Gas Notified Time Sodium 140 Potassium 4.1 Chloride 109 H Carbon Dioxide 21.0 Anion Gap 10 BUN 32 H Creatinine 2.24 H Estim Creat Clear Calc 19.83 Est GFR (MDRD) Af Amer 27 L Est GFR (MDRD) Non-Af 23 L BUN/Creatinine Ratio 14.3 Glucose 152 H Calcium 6.1 L* Phosphorus 4.7 Magnesium 1.2 L Total Bilirubin 0.70 AST 14 L ALT 9 L Alkaline Phosphatase 79 Troponin I 0.043 Total Protein 4.7 L Albumin 1.9 L Globulin 2.8 Albumin/Globulin Ratio 0.7 L Triglycerides Cholesterol LDL Cholesterol VLDL Cholesterol HDL Cholesterol MRSA (PCR) 11/19/17 11/19/17 04:10 04:10 WBC 7.4 RBC 3.94 L Hgb 11.8 L Hct 38.3 MCV 97.2 MCH 29.9 MCHC 30.8 L RDW 21.4 H RDW Differential 70.8 H Plt Count 191 MPV 10.2 Immature Gran % (Auto) 0.500 Neut % (Auto) 69.0 Lymph % (Auto) 21.3 Anderson % (Auto) 7.2 Eos % (Auto) 1.5 Baso % (Auto) 0.5 Absolute Neuts (auto) 5.1 Absolute Lymphs (auto) 1.58 Total Counted Not Reportable Differential Comment SCANNED Platelet Estimate Polychromasia Anisocytosis 2+ Macrocytosis Tear Drop Cells Schistocytes Specimen Type Sample Site pH Bicarbonate Actual POC Total CO2 Base Excess O2 Saturation ABG pCO2 ABG pO2 O2 Delivery Device Liter Flow Blood Gas Notified Whom Blood Gas Notified Time Sodium 134 L Potassium 5.8 H Chloride 96 L Carbon Dioxide 26.0 Anion Gap 12 BUN 44 H Creatinine 3.40 H Estim Creat Clear Calc 13.06 Est GFR (MDRD) Af Amer 17 L Est GFR (MDRD) Non-Af 14 L BUN/Creatinine Ratio 12.9 Glucose 229 H Calcium 8.4 L Phosphorus 7.5 H Magnesium Total Bilirubin AST ALT Alkaline Phosphatase Troponin I Total Protein Albumin Globulin Albumin/Globulin Ratio Triglycerides Cholesterol LDL Cholesterol VLDL Cholesterol HDL Cholesterol MRSA (PCR) POC Glucose 11/18/17 11/18/17 11/18/17 21:54 16:06 11:05 POC Glucose 222 H 183 H 201 H Clinical Impression(s) from Imaging Studies Chest X-Ray 11/17/17 15:17 IMPRESSION: No acute findings Electronically Signed: Jason Danielle DO at 15:36 EDT Tel , Service support , Abdomen/Pelvis CT 11/17/17 15:21 IMPRESSION: [id number] ascites in all quadrants. 1.9 cm low-attenuation mass in the central liver, axial image 37. Suggest further evaluation perhaps with contrast MRI, and consider biopsy. Severe renal atrophy. Cannot occluded segments of bowel wall thickening. Electronically Signed: Ramos Morales MD at 17:08 EDT , Service support , Chest CTA 11/17/17 15:21 IMPRESSION: 1. No evidence of pulmonary embolism or thoracic aortic dissection 2. Stable scarring in both lung bases without acute airspace disease Electronically Signed: Jason Danielle DO at 17:09 EDT Tel , Service support , Chest X-Ray 11/18/17 19:56 IMPRESSION: Moderate to severe cardiomegaly. No definite acute chest disease. Electronically Signed: Ramos Morales MD at 19:29 EDT , Service support , Assessment/Plan Active and Suspected Problems (Last Reviewed 08/21/17 @ 14:33 by Pat Gomez) Hypotension (Acute) RECOMMENDATIONS: 1. Continue Levophed to maintain a mean arterial pressure at or above 60 mmHg. 2. Discontinue continuous supplemental IV fluids 3. Continue hemodialysis per nephrology recommendations. Avoid fluid removal, if the patient's hemodynamics become further compromised. 4. Continue to hold beta-morelia/antihypertensives 5. Continue fentanyl for pain control for now 6. Agree with additional workup of the patient's abnormal abdominal imaging. IMPRESSIONS: 1. Combined shock Likely multifactorial in etiology with cardiac, hypovolemia and polypharmacy contributing. The patient's hemodynamics have stabilized with the use of Levophed, which will be continued to maintain a mean arterial pressure at or above 60 mmHg. The patient is to undergo additional dialysis today. However, would recommend running her overall net even, if her Levophed requirement increases at all. Continue to hold beta-morelia and all antihypertensives. 2. Acute hypoxic respiratory insufficiency Likely secondary to decompensated heart failure in the setting of dietary indiscretions. Recommend discontinuing supplemental IV fluids. Continue hemodialysis per nephrology recommendations. Wean supplemental oxygen to maintain saturations at or above 90%. Encourage incentive spirometer use and mobilize patient as tolerated. 3. Non-ST elevation myocardial infarction/coronary artery disease Continue medical management per cardiology recommendations. Repeat echocardiogram is pending. 4. Undifferentiated abdominal pain The patient has undifferentiated abdominal pain, which appears to be an acute issue for her. CT abdomen/pelvis obtained on presentation was limited due to his lack of IV/p.o. contrast. Agree with obtaining liver ultrasound. If the etiology for the patient's abdominal pain remains unclear, would recommend additional imaging with MRI versus CT with contrast, as the patient could be dialyzed following contrast administration. Continue fentanyl for pain control for now. 5. Neuropathy/obesity/hyperlipidemia/GERD/hypertension/diabetes Complicates care, management, recovery and prognosis. Continue Lantus and sliding scale insulin coverage. The patient will require physical therapy evaluation. Antihypertensives are currently on hold. TIME: 45 minutes of critical care time, independent of procedures, was spent addressing the patient's combined hypovolemic and cardiogenic shock, acute hypoxic respiratory insufficiency, non-ST elevation myocardial infarction, undifferentiated abdominal pain, review of all data and collaboration with the care team. ([id number]) Code Visit 9xxxx: [id number] Critical care first hour
[2017-11-19 07:36] LABS: Bedside Glucose 210 mg/dL (70-110)
--- NOTE | 2017-11-19 07:38 | PCM.PN.HOSP ---
Patient Problems: Active and Suspected Problems (Last Reviewed 08/21/17 @ 14:33 by Pat Gomez) Hypotension (Acute) Subjective: Patient was seen and examined. She remains on Levophed 15 mcg/min. patient is slightly lethargic, awakens easily and responds to commands. Been complaining of pain all over body but worse in right ankle, site of previous fracture, the whole night and has been on IV fentanyl. No fevers seen. Objective: General: Alert, Cooperative, Lethargic, not pale or jaundiced HEENT: Atraumatic, PERRLA, EOMI, Normocephalic Oral: Dry Mucosa Neck: Supple, RIJ central line Lungs: Clear to auscultation, Normal air movement Cardiovascular: Regular rate, Regular Rhythm, Normal S1, Normal S2, No murmurs Abdomen: Bowel Sounds Present, Soft, Non Tender, Non-Distended Extremities: No edema, Capillary Refill Less than 3 Seconds Skin: No rashes, No breakdown Musculoskeletal: No Tenderness to Palpation of Joints or Extremities Neurological: Cranial nerves II-XII grossly intact Psych/Mental Status: Normal Affect, Appropriate Vitals/I&O's: Vital Signs Temp Pulse Resp BP Pulse Ox 97.3 F L 43 L 14 120/36 L 94 11/19/17 06:00 11/19/17 07:00 11/19/17 07:00 11/19/17 07:00 11/19/17 07:00 Oxygen Flow Rate (L/min) 3 Oxygen Delivery Method Nasal Cannula Weight: 89.5 kg Body Mass Index (BMI) 32.4 Intake and Output for Last 24 Hours 11/17/17 11/18/17 11/19/17 23:59 23:59 23:59 Intake Total 4200.8 / 4200.8 762 / 762 Output Total 3800 / 3800 0 / 0 Balance 400.8 / 400.8 762 / 762 Laboratory Results 11/18/17 06:25: Differential Comment 11/18/17 06:25: Sodium 132 L, Potassium 4.6, Chloride 95 L, Carbon Dioxide 29.0, Anion Gap 8, BUN 36 H, Creatinine 2.70 H, Estim Creat Clear Calc 16.45, Est GFR (MDRD) Af Amer 22 L, Est GFR (MDRD) Non-Af 18 L, BUN/Creatinine Ratio 13.3, Glucose 142 H, Calcium 8.5, Triglycerides 74, Cholesterol 73, LDL Cholesterol 22, VLDL Cholesterol 15, HDL Cholesterol 36 L 11/18/17 11:05: POC Glucose 201 H 11/18/17 12:00: Troponin I 0.063 H 11/18/17 14:10: MRSA (PCR) Negative 11/18/17 14:40: Troponin I 0.050 H 11/18/17 15:00: Specimen Type ART, Sample Site R Brachial, pH 7.40, Bicarbonate Actual 26.5 H, POC Total CO2 28, Base Excess 2, O2 Saturation 95, ABG pCO2 43.0, ABG pO2 78, O2 Delivery Device Nasal Can, Liter Flow 3.0, Blood Gas Notified Whom LETICIA NEWMAN, Blood Gas Notified Time 1500 11/18/17 16:06: POC Glucose 183 H 11/18/17 17:55: Troponin I 0.043 11/18/17 17:55: Sodium 140, Potassium 4.1, Chloride 109 H, Carbon Dioxide 21.0, Anion Gap 10, BUN 32 H, Creatinine 2.24 H, Estim Creat Clear Calc 19.83, Est GFR (MDRD) Af Amer 27 L, Est GFR (MDRD) Non-Af 23 L, BUN/Creatinine Ratio 14.3, Glucose 152 H, Calcium 6.1 L*, Phosphorus 4.7, Magnesium 1.2 L, Total Bilirubin 0.70, AST 14 L, ALT 9 L, Alkaline Phosphatase 79, Total Protein 4.7 L, Albumin 1.9 L, Globulin 2.8, Albumin/Globulin Ratio 0.7 L 11/18/17 18:15: WBC 5.6, RBC 3.97 L, Hgb 11.5 L, Hct 38.8, MCV 97.7, MCH 29.0, MCHC 29.6 L, RDW 21.1 H, RDW Differential 72.8 H, Plt Count 130 L, MPV 9.8, Immature Gran % (Auto) 0.200, Neut % (Auto) 74.4 H, Lymph % (Auto) 14.7 L, [place] % (Auto) 6.7, Eos % (Auto) 3.6, Baso % (Auto) 0.4, Absolute Neuts (auto) 4.1, Absolute Lymphs (auto) 0.82 L, Total Counted Not Reportable, Differential Comment SCANNED, Platelet Estimate ADEQUATE, Polychromasia RARE, Anisocytosis 3+, Macrocytosis 1+, Tear Drop Cells RARE, Schistocytes RARE 11/18/17 21:54: POC Glucose 222 H 11/19/17 04:10: WBC 7.4, RBC 3.94 L, Hgb 11.8 L, Hct 38.3, MCV 97.2, MCH 29.9, MCHC 30.8 L, RDW 21.4 H, RDW Differential 70.8 H, Plt Count 191, MPV 10.2, Immature Gran % (Auto) 0.500, Neut % (Auto) 69.0, Lymph % (Auto) 21.3, [place] % (Auto) 7.2, Eos % (Auto) 1.5, Baso % (Auto) 0.5, Absolute Neuts (auto) 5.1, Absolute Lymphs (auto) 1.58, Total Counted Not Reportable, Differential Comment SCANNED, Anisocytosis 2+ 11/19/17 04:10: Sodium 134 L, Potassium 5.8 H, Chloride 96 L, Carbon Dioxide 26.0, Anion Gap 12, BUN 44 H, Creatinine 3.40 H, Estim Creat Clear Calc 13.06, Est GFR (MDRD) Af Amer 17 L, Est GFR (MDRD) Non-Af 14 L, BUN/Creatinine Ratio 12.9, Glucose 229 H, Calcium 8.4 L, Phosphorus 7.5 H 11/19/17 07:32: POC Glucose 210 H Current Medications Acetaminophen (Tylenol) 650 mg PO Q6H PRN PRN PRN Reason: Mild Pain (scale 0-3)/T>100.7 Last Admin: 11/18/17 16:11 Dose: 650 mg [facility] ([facility]) [facility] Last Admin: 11/18/17 08:25 Dose: 81 mg Atorvastatin Calcium (Lipitor) 40 mg PO QHS [facility] Last Admin: 11/18/17 22:01 Dose: 40 mg Bisacodyl (Dulcolax) 5 mg PO DAILY PRN PRN PRN Reason: Constipation Calcium Acetate (Phoslo Gel Cap) 667 mg PO TIDCM [facility] Last Admin: 11/18/17 16:10 Dose: 667 mg Cholecalciferol (Vitamin D) 5,000 unit PO MOWEFR [facility] Clopidogrel Bisulfate (Plavix) 75 mg PO DAILY [facility] Last Admin: 11/18/17 08:30 Dose: 75 mg Cyclobenzaprine HCl (Cyclobenzaprine Hcl) 5 mg PO BID PRN PRN PRN Reason: SPASMS Dextrose (D50w Syringe) 0 gm IV X1 PRN; Protocol PRN Reason: Hypoglycemia Docusate Sodium (Colace) 100 mg PO DAILY [facility] Last Admin: 11/18/17 08:27 Dose: Not Given Fentanyl Citrate (Sublimaze (100mcg Ampule)) 50 mcg IV Q2H PRN PRN PRN Reason: PAIN Last Admin: 11/19/17 05:48 Dose: 50 mcg Gabapentin (Neurontin) 100 mg PO TIDCM [facility] Last Admin: 11/18/17 16:47 Dose: 100 mg Glucagon () 1 mg IM .X1 PRN PRN Reason: Hypoglycemia Heparin Sodium (Porcine) (Heparin Na) 5,000 unit SC Q12 [facility] Last Admin: 11/18/17 21:56 Dose: 5,000 units Norepinephrine Bitartrate 8 mg (/ Dextrose) 258 mls @ 9.67 mls/hr IV .[id number] [facility] PRN Reason: 5 MCG/MIN Last Admin: 11/19/17 05:00 Dose: 9.67 mls/hr Sodium Chloride () 1,000 mls @ 75 mls/hr IV .[id number] [facility] Last Admin: 11/19/17 05:01 Dose: 75 mls/hr Insulin Glargine (Lantus (Bkc)) 22 units SC QHS [facility] Last Admin: 11/18/17 21:57 Dose: 22 units Insulin Human Lispro (Humalog Kwikpen (Bkc)) 0 unit SQ ACHS [facility] PRN Reason: Protocol Last Admin: 11/18/17 21:56 Dose: 1 u Isosorbide Mononitrate (Imdur) 60 mg PO BID [facility] Last Admin: 11/18/17 21:15 Dose: Not Given Magnesium Hydroxide (Milk Of Magnesia) 30 ml PO DAILY PRN PRN Reason: Constipation Multivit/Ca Carb/B Cmplx/FA/Prenat (Nephrocaps, Renaphro) 1 capsule PO DAILY [facility] Last Admin: 11/18/17 08:29 Dose: 1 capsule Nutritional Formula (Nepro Carb Steady) 120 ml PO 4X/DAY [facility] Last Admin: 11/18/17 21:56 Dose: 120 ml Ondansetron HCl (Zofran) 4 mg IV Q8H PRN PRN PRN Reason: NAUSEA Last Admin: 11/18/17 18:23 Dose: 4 mg Oxycodone HCl (Oxyir) 7.5 mg PO Q4H PRN PRN PRN Reason: PAIN Last Admin: 11/18/17 08:23 Dose: 7.5 mg Pantoprazole Sodium (Protonix) 40 mg PO DAILY [facility] Last Admin: 11/18/17 08:30 Dose: 40 mg Psyllium Hydrophilic Mucilloid (Metamucil) 1 packet PO DAILY PRN PRN PRN Reason: CONSTIPATION Sodium Chloride () 5 - 30 ml IV UD PRN PRN Reason: SALINE FLUSH Last Admin: 11/19/17 01:25 Dose: 30 ml Medical Necessity - Tobacco Use Smoking Status: Former smoker Tobacco Use: Non-smoker Assessment/Plan All Active Problems (Last Reviewed 08/21/17 @ 14:33 by Pat Gomez) Hypotension (Acute) Fall (Acute) Gait instability (Acute) Pain in right ankle and joints of right foot (Acute) Ileus (Acute) Unstable angina pectoris (Acute) NSTEMI (non-ST elevated myocardial infarction) (Acute) Hyperkalemia (Acute) Chest pressure (Acute) 72 year old F with past medical history of ESRD on hemodialysis, last had emergent dialysis yesterday. Patient comes to the ED with complaints of shortness of breath that was worse since yesterday. She is a M-W-F dialysis patient of Dr. Crawley. She sustained fracture of the right foot in Jun 2017 and has been wearing a walking boot. She admits that she has gained about 30 pounds over the last 3 weeks. She describes abdominal distention and discomfort ongoing for weeks. 1. Shock likely hypovolemic versus cardiac, secondary to fluid removal from dialysis last night and blood pressure medication and pain medication side effect, remains on Levophed, will continue to monitor in ICU and possibly wean off pressors to keep map above 65. 2. Acute NSTEMI secondary to demand ischemia, troponins have trended down, no acute EKG changes, continue on aspirin, plavix, statin, beta blockers have been held, patient is bradycardic, will continue to monitor. 3. Acute on chronic respiratory failure, on 3L home oxygen, secondary to fluid overload in a patient with history of ESRD on hemodialysis, less likely due to acute CHF exacerbation, ECHO 2017 showed EF 30-40%, previouis EF at cardiac cath was normal. repeat 2d-echo is pending. 4. Type 2 DM, sugars are fairly controlled, continue on home insulin regimen 5. Hypothyroidism, continue on levothyroxine 6. Hyperkalemia, K is 5.8, patient will get dialysis today, follow-up with BMP in am 7. Right foot pain, h/o 5th metatarsal fracture with forefoot deformity, osteopenia, will add tylenol 1000mg po tid, continue with fentanyl prn. 8. DVT prophylaxis with heparin subcu 9. Code status: Full code Code Visit Inpatient E&M: 12017 Subs Hosp L3
--- NOTE | 2017-11-19 07:46 | PN_ITS ---
Patient Problems: Active and Suspected Problems (Last Reviewed 08/21/17 @ 14:33 by Pat Gomez) Hypotension (Acute) Subjective: Patient was seen and examined. She remains on Levophed 15 mcg/min. patient is slightly lethargic, awakens easily and responds to commands. Been complaining of pain all over body but worse in right ankle, site of previous fracture, the whole night and has been on IV fentanyl. No fevers seen. Objective: General: Alert, Cooperative, Lethargic, not pale or jaundiced HEENT: Atraumatic, PERRLA, EOMI, Normocephalic Oral: Dry Mucosa Neck: Supple, RIJ central line Lungs: Clear to auscultation, Normal air movement Cardiovascular: Regular rate, Regular Rhythm, Normal S1, Normal S2, No murmurs Abdomen: Bowel Sounds Present, Soft, Non Tender, Non-Distended Extremities: No edema, Capillary Refill Less than 3 Seconds Skin: No rashes, No breakdown Musculoskeletal: No Tenderness to Palpation of Joints or Extremities Neurological: Cranial nerves II-XII grossly intact Psych/Mental Status: Normal Affect, Appropriate Vitals/I&O's: Vital Signs Temp Pulse Resp BP Pulse Ox 97.3 F L 43 L 14 120/36 L 94 11/19/17 06:00 11/19/17 07:00 11/19/17 07:00 11/19/17 07:00 11/19/17 07:00 Oxygen Flow Rate (L/min) 3 Oxygen Delivery Method Nasal Cannula Weight: 89.5 kg Body Mass Index (BMI) 32.4 Intake and Output for Last 24 Hours 11/17/17 11/18/17 11/19/17 23:59 23:59 23:59 Intake Total 4200.8 / 4200.8 762 / 762 Output Total 3800 / 3800 0 / 0 Balance 400.8 / 400.8 762 / 762 Laboratory Results 11/18/17 06:25: Differential Comment 11/18/17 06:25: Sodium 132 L, Potassium 4.6, Chloride 95 L, Carbon Dioxide 29.0 , Anion Gap 8, BUN 36 H, Creatinine 2.70 H, Estim Creat Clear Calc 16.45, Est GFR (MDRD) Af Amer 22 L, Est GFR (MDRD) Non-Af 18 L, BUN/Creatinine Ratio 13.3, Glucose 142 H, Calcium 8.5, Triglycerides 74, Cholesterol 73, LDL Cholesterol 22 , VLDL Cholesterol 15, HDL Cholesterol 36 L 11/18/17 11:05: POC Glucose 201 H 11/18/17 12:00: Troponin I 0.063 H 11/18/17 14:10: MRSA (PCR) Negative 11/18/17 14:40: Troponin I 0.050 H 11/18/17 15:00: Specimen Type ART, Sample Site R Brachial, pH 7.40, Bicarbonate Actual 26.5 H, POC Total CO2 28, Base Excess 2, O2 Saturation 95, ABG pCO2 43.0 , ABG pO2 78, O2 Delivery Device Nasal Can, Liter Flow 3.0, Blood Gas Notified Whom LETICIA NEWMAN, Blood Gas Notified Time 1500 11/18/17 16:06: POC Glucose 183 H 11/18/17 17:55: Troponin I 0.043 11/18/17 17:55: Sodium 140, Potassium 4.1, Chloride 109 H, Carbon Dioxide 21.0, Anion Gap 10, BUN 32 H, Creatinine 2.24 H, Estim Creat Clear Calc 19.83, Est GFR (MDRD) Af Amer 27 L, Est GFR (MDRD) Non-Af 23 L, BUN/Creatinine Ratio 14.3, Glucose 152 H, Calcium 6.1 L*, Phosphorus 4.7, Magnesium 1.2 L, Total Bilirubin 0.70, AST 14 L, ALT 9 L, Alkaline Phosphatase 79, Total Protein 4.7 L, Albumin 1.9 L, Globulin 2.8, Albumin/Globulin Ratio 0.7 L 11/18/17 18:15: WBC 5.6, RBC 3.97 L, Hgb 11.5 L, Hct 38.8, MCV 97.7, MCH 29.0, MCHC 29.6 L, RDW 21.1 H, RDW Differential 72.8 H, Plt Count 130 L, MPV 9.8, Immature Gran % (Auto) 0.200, Neut % (Auto) 74.4 H, Lymph % (Auto) 14.7 L, [place] % (Auto) 6.7, Eos % (Auto) 3.6, Baso % (Auto) 0.4, Absolute Neuts (auto) 4.1, Absolute Lymphs (auto) 0.82 L, Total Counted Not Reportable, Differential Comment SCANNED, Platelet Estimate ADEQUATE, Polychromasia RARE, Anisocytosis 3+ , Macrocytosis 1+, Tear Drop Cells RARE, Schistocytes RARE 11/18/17 21:54: POC Glucose 222 H 11/19/17 04:10: WBC 7.4, RBC 3.94 L, Hgb 11.8 L, Hct 38.3, MCV 97.2, MCH 29.9, MCHC 30.8 L, RDW 21.4 H, RDW Differential 70.8 H, Plt Count 191, MPV 10.2, Immature Gran % (Auto) 0.500, Neut % (Auto) 69.0, Lymph % (Auto) 21.3, [place] % ( Auto) 7.2, Eos % (Auto) 1.5, Baso % (Auto) 0.5, Absolute Neuts (auto) 5.1, Absolute Lymphs (auto) 1.58, Total Counted Not Reportable, Differential Comment SCANNED, Anisocytosis 2+ 11/19/17 04:10: Sodium 134 L, Potassium 5.8 H, Chloride 96 L, Carbon Dioxide 26.0, Anion Gap 12, BUN 44 H, Creatinine 3.40 H, Estim Creat Clear Calc 13.06, Est GFR (MDRD) Af Amer 17 L, Est GFR (MDRD) Non-Af 14 L, BUN/Creatinine Ratio 12.9, Glucose 229 H, Calcium 8.4 L, Phosphorus 7.5 H 11/19/17 07:32: POC Glucose 210 H Current Medications Acetaminophen (Tylenol) 650 mg PO Q6H PRN PRN PRN Reason: Mild Pain (scale 0-3)/T>100.7 Last Admin: 11/18/17 16:11 Dose: 650 mg [facility]) [facility] Last Admin: 11/18/17 08:25 Dose: 81 mg Atorvastatin Calcium (Lipitor) 40 mg PO QHS [facility] Last Admin: 11/18/17 22:01 Dose: 40 mg Bisacodyl (Dulcolax) 5 mg PO DAILY PRN PRN PRN Reason: Constipation Calcium Acetate (Phoslo Gel Cap) 667 mg PO TIDCM [facility] Last Admin: 11/18/17 16:10 Dose: 667 mg Cholecalciferol (Vitamin D) 5,000 unit PO MOWEFR [facility] Clopidogrel Bisulfate (Plavix) 75 mg PO DAILY [facility] Last Admin: 11/18/17 08:30 Dose: 75 mg Cyclobenzaprine HCl (Cyclobenzaprine Hcl) 5 mg PO BID PRN PRN PRN Reason: SPASMS Dextrose (D50w Syringe) 0 gm IV X1 PRN; Protocol PRN Reason: Hypoglycemia Docusate Sodium (Colace) 100 mg PO DAILY [facility] Last Admin: 11/18/17 08:27 Dose: Not Given Fentanyl Citrate (Sublimaze (100mcg Ampule)) 50 mcg IV Q2H PRN PRN PRN Reason: PAIN Last Admin: 11/19/17 05:48 Dose: 50 mcg Gabapentin (Neurontin) 100 mg PO TIDCM [facility] Last Admin: 11/18/17 16:47 Dose: 100 mg Glucagon () 1 mg IM .X1 PRN PRN Reason: Hypoglycemia Heparin Sodium (Porcine) (Heparin Na) 5,000 unit SC Q12 [facility] Last Admin: 11/18/17 21:56 Dose: 5,000 units Norepinephrine Bitartrate 8 mg (/ Dextrose) 258 mls @ 9.67 mls/hr IV .[id number] [facility] PRN Reason: 5 MCG/MIN Last Admin: 11/19/17 05:00 Dose: 9.67 mls/hr Sodium Chloride () 1,000 mls @ 75 mls/hr IV .[id number] [facility] Last Admin: 11/19/17 05:01 Dose: 75 mls/hr Insulin Glargine (Lantus (Bkc)) 22 units SC QHS [facility] Last Admin: 11/18/17 21:57 Dose: 22 units Insulin Human Lispro (Humalog Kwikpen (Bkc)) 0 unit SQ ACHS [facility] PRN Reason: Protocol Last Admin: 11/18/17 21:56 Dose: 1 u Isosorbide Mononitrate (Imdur) 60 mg PO BID [facility] Last Admin: 11/18/17 21:15 Dose: Not Given Magnesium Hydroxide (Milk Of Magnesia) 30 ml PO DAILY PRN PRN Reason: Constipation Multivit/Ca Carb/B Cmplx/FA/Prenat (Nephrocaps, Renaphro) 1 capsule PO DAILY [facility] Last Admin: 11/18/17 08:29 Dose: 1 capsule Nutritional Formula (Nepro Carb Steady) 120 ml PO 4X/DAY [facility] Last Admin: 11/18/17 21:56 Dose: 120 ml Ondansetron HCl (Zofran) 4 mg IV Q8H PRN PRN PRN Reason: NAUSEA Last Admin: 11/18/17 18:23 Dose: 4 mg Oxycodone HCl (Oxyir) 7.5 mg PO Q4H PRN PRN PRN Reason: PAIN Last Admin: 11/18/17 08:23 Dose: 7.5 mg Pantoprazole Sodium (Protonix) 40 mg PO DAILY [facility] Last Admin: 11/18/17 08:30 Dose: 40 mg Psyllium Hydrophilic Mucilloid (Metamucil) 1 packet PO DAILY PRN PRN PRN Reason: CONSTIPATION Sodium Chloride () 5 - 30 ml IV UD PRN PRN Reason: SALINE FLUSH Last Admin: 11/19/17 01:25 Dose: 30 ml Medical Necessity - Tobacco Use Smoking Status: Former smoker Tobacco Use: Non-smoker Assessment/Plan All Active Problems (Last Reviewed 08/21/17 @ 14:33 by Pat Gomez) Hypotension (Acute) Fall (Acute) Gait instability (Acute) Pain in right ankle and joints of right foot (Acute) Ileus (Acute) Unstable angina pectoris (Acute) NSTEMI (non-ST elevated myocardial infarction) (Acute) Hyperkalemia (Acute) Chest pressure (Acute) 72 year old F with past medical history of ESRD on hemodialysis, last had emergent dialysis yesterday. Patient comes to the ED with complaints of shortness of breath that was worse since yesterday. She is a M-W-F dialysis patient of Dr. Crawley. She sustained fracture of the right foot in Jun 2017 and has been wearing a walking boot. She admits that she has gained about 30 pounds over the last 3 weeks. She describes abdominal distention and discomfort ongoing for weeks. 1. Shock likely hypovolemic versus cardiac, secondary to fluid removal from dialysis last night and blood pressure medication and pain medication side effect, remains on Levophed, will continue to monitor in ICU and possibly wean off pressors to keep map above 65. 2. Acute NSTEMI secondary to demand ischemia, troponins have trended down, no acute EKG changes, continue on aspirin, plavix, statin, beta blockers have been held, patient is bradycardic, will continue to monitor. 3. Acute on chronic respiratory failure, on 3L home oxygen, secondary to fluid overload in a patient with history of ESRD on hemodialysis, less likely due to acute CHF exacerbation, ECHO 2017 showed EF 30-40%, previouis EF at cardiac cath was normal. repeat 2d-echo is pending. 4. Type 2 DM, sugars are fairly controlled, continue on home insulin regimen 5. Hypothyroidism, continue on levothyroxine 6. Hyperkalemia, K is 5.8, patient will get dialysis today, follow-up with BMP in am 7. Right foot pain, h/o 5th metatarsal fracture with forefoot deformity, osteopenia, will add tylenol 1000mg po tid, continue with fentanyl prn. 8. DVT prophylaxis with heparin subcu 9. Code status: Full code Code Visit Inpatient E&M: 48591 Subs Hosp L3
--- NOTE | 2017-11-19 08:22 | US_ITS ---
STUDY: ABDOMINAL ULTRASOUND - RIGHT UPPER QUADRANT REASON FOR VISIT: Female, 72 years old. Abdominal pain. Abnormal CT scan. TECHNIQUE: Ultrasound evaluation of the right upper quadrant was performed with real-time and static martinez-scale imaging. TECHNICAL QUALITY: Adequate. COMPARISON: CT scan 11/17/17. FINDINGS: Liver: The liver measures 17 cm. There is normal echogenicity of the liver. The bile ducts are within normal limits. There is hepatic color flow. The direction of portal flow is hepatopetal. There is a 2.3 cm echogenic mass in the right hepatic lobe. Gallbladder: The patient is status post cholecystectomy. Common Bile Duct (C.B.D.): The common bile duct measures 5 mm. Pancreas: Normal size of the head, body and tail of the pancreas. There is normal echogenicity of the pancreas. There is no demonstrated pancreatic mass or cyst. Right Kidney: Normal size of the right kidney. The right kidney measures 8.9 cm. Normal renal cortex. The right cortex measures 0.7 cm. There is no demonstrated renal mass or cyst. There is no right hydronephrosis. Ascites is seen. US/Liver IMPRESSION: 2.3 cm echogenic mass in the right hepatic lobe. Ascites. Electronically Signed: Ramos Morales MD at 19:35 EDT , Service support ,
[2017-11-19 08:25] LABS: Magnesium 2.9 mg/dL (1.6-2.6)
--- NOTE | 2017-11-19 09:13 | PCM.PN.CARD ---
Subjectve: Patient complaining of abdominal pain this morning, slight tenderness in the right upper quadrant area. Previous gallbladder resection noted. Telemetry showed atrial flutter with controlled ventricular response. Antihypertensive medicines held. Patient on levo fed drip this morning at 15 mics. No chest pain or angina. Objective: Vital Signs Temp Pulse Resp BP Pulse Ox 97.8 F 43 L 14 138/44 H 94 11/19/17 08:00 11/19/17 08:00 11/19/17 08:00 11/19/17 08:00 11/19/17 08:00 Oxygen Flow Rate (L/min) 3 Oxygen Delivery Method Nasal Cannula Weight: 197 lb 5.019 oz Body Mass Index (BMI) 32.4 Intake and Output for Last 24 Hours 11/17/17 11/18/17 11/19/17 23:59 23:59 23:59 Intake Total 4200.8 / 4200.8 762 / 762 Output Total 3800 / 3800 0 / 0 Balance 400.8 / 400.8 762 / 762 General: Awake, Alert, Oriented x 3 HEENT: PERRL, EOMI, Sclera Non Icteric Neck: Supple, Good ROM, No Lymph Node Enlargement Lungs: Clear to auscultation Cardiovascular: Regular Rhythm, Normal S1, Normal S2, No Murmurs, No Rubs, No Gallops Vascular: No Carotid Bruits, Normal Femoral Pulses, Normal Radial Pulses, Normal Dorsalis Pedal Pulse, Normal Posterior Tibial Pulses Abdomen: Bowel Sounds Present, Soft, Non Tender, No HSM, No Organomegaly Extremities: No Cyanosis, No Clubbing, No edema Neurological: No Focal Motor or Sensory Deficit 11/18/17 12:00: Troponin I 0.063 H 11/18/17 14:40: Troponin I 0.050 H 11/18/17 15:00: pH 7.40, Bicarbonate Actual 26.5 H, POC Total CO2 28, Base Excess 2, O2 Saturation 95, ABG pCO2 43.0, ABG pO2 78 11/18/17 17:55: Troponin I 0.043 11/18/17 17:55: Sodium 140, Potassium 4.1, Chloride 109 H, Carbon Dioxide 21.0, Anion Gap 10, BUN 32 H, Creatinine 2.24 H, Est GFR (MDRD) Af Amer 27 L, Est GFR (MDRD) Non-Af 23 L, BUN/Creatinine Ratio 14.3, Glucose 152 H, Calcium 6.1 L*, Phosphorus 4.7, Magnesium 1.2 L, Total Bilirubin 0.70 11/18/17 18:15: WBC 5.6, RBC 3.97 L, Hgb 11.5 L, Hct 38.8, MCV 97.7, MCH 29.0, MCHC 29.6 L, RDW 21.1 H, RDW Differential 72.8 H, Plt Count 130 L, MPV 9.8, Immature Gran % (Auto) 0.200, Neut % (Auto) 74.4 H, Lymph % (Auto) 14.7 L, Josephine % (Auto) 6.7, Eos % (Auto) 3.6, Baso % (Auto) 0.4, Absolute Neuts (auto) 4.1, Total Counted Not Reportable 11/19/17 04:10: WBC 7.4, RBC 3.94 L, Hgb 11.8 L, Hct 38.3, MCV 97.2, MCH 29.9, MCHC 30.8 L, RDW 21.4 H, RDW Differential 70.8 H, Plt Count 191, MPV 10.2, Immature Gran % (Auto) 0.500, Neut % (Auto) 69.0, Lymph % (Auto) 21.3, Josephine % (Auto) 7.2, Eos % (Auto) 1.5, Baso % (Auto) 0.5, Absolute Neuts (auto) 5.1, Total Counted Not Reportable 11/19/17 04:10: Sodium 134 L, Potassium 5.8 H, Chloride 96 L, Carbon Dioxide 26.0, Anion Gap 12, BUN 44 H, Creatinine 3.40 H, Est GFR (MDRD) Af Amer 17 L, Est GFR (MDRD) Non-Af 14 L, BUN/Creatinine Ratio 12.9, Glucose 229 H, Calcium 8.4 L, Phosphorus 7.5 H 11/19/17 04:10: Magnesium 2.9 H Rhythm: EKG: ECHO: Pending Stress Test: Cardiac Cath: PCI: CT Surgery: Holter monitor: EPS: PPM: CXR: Chest CT Scan: Medical Necessity - Tobacco Use Smoking Status: Former smoker Tobacco Use: Non-smoker Assessment/Plan 1. Congestive heart failure: After discussing with the patient her reasons for CHF exacerbation, it appears that she was compliant with her medications, compliant with hemodialysis, and compliant with her fluid restrictions for the most part. Her CT scan suggest ascites and a 1.9 cm mass located in the central parenchyma of the liver as well as thickening of her bowel, and further evaluation recommended in the form of a contrast MRI or biopsy. The patient is currently hypotensive requiring pressor agents to support her blood pressure. She is awaiting hemodialysis this morning, I would recommend minimal fluid removal if possible. We will hold her antihypertensive medications and obtain a 2D echo with Doppler to evaluate her LV function, and more importantly possible bacterial infections, and possible intramyocardial abscess that may explain her relative bradycardia. Patient has no outward signs of endocarditis that I can see on this physical exam. Would recommend continuing to wean her off her Levophed as we can keep her MEP greater than 60. Consideration may want to be made for obtaining a contrast MRI to evaluate her liver parenchyma and small bowel thickening, or transferring out for possible GI consultation at a tertiary care facility. 2. Coronary artery disease: Patient has no anginal symptoms at this time, and has known coronary disease with nonobstructive disease of her left main and LAD, and occluded anomalous left circumflex, and disease of her proximal and distal RCA which was to be evaluated and corrected at [facility] for a 2017. Patient has had no anginal symptoms, and minimal troponin release. At this point I do not recommend repeat catheterization at this time. At this point I would recommend holding beta-morelia therapy and all rate limiting medications given her atrial flutter with slow ventricular response despite levo fed. If the patient's heart rhythm does not improve and considering her right coronary artery has previous coronary disease I would recommend repeat left her catheterization to determine if she has compromise of her distal AV node artery. 3. Thank you very much for the opportunity to participate in the cardiac care of your patient. Code Visit Inpatient E&M: [id number] Subs Hosp L2
--- NOTE | 2017-11-19 10:04 | PCM.CONS.R ---
Consultation - Renal 11/19/17 PCP/ Referring MD: Requesting physician: Becka Simmons Primary care physician: Allie Lund Reason for Consultation:: ESRD HD MWF, fluid overload, hyperkalemia, renal mgmt - History of Present Illness History of Present Illness: The patient is a 72 year old F with ESRD due to diabetes, on HD MWF, last full dialysis Sunday, admitted for SOB, increased abdominal distension with pain, leg swelling. She has a history of noncompliance with massive interdialytic fluid gains frequently requiring IUF on Saturdays. She called dialysis center Sunday for complaints of shortness of breath but no spot was available so was advised by dialysis nurse to go to ER. She has not been able to reach target weight due to high fluid gains. BP has been elevated with tachycardia at dialysis center. She denies noncompliance with her medications at home. She became hypotension with SBP in the 80's, bradycardic from HR 100's to 40's after she was placed on her home BP med doses. She is on clonidine and carvedilol at home with coreg trecently increased for hypertension and tachycardia at dialysis last week. She was transferred to ICU on levo drip. She is currently receiving dialysis. Potassium was elevated at 5.8, phos 7.5, mag 2.9 after iv mag given for level of 1.2. She has a history of noncompliance with renal diet with hyperphosphatemia. Albumin low now at 1.9 with phos at 7.5. Currently on protein supplement. Cardiology has been consulted. Currently in atrial flutter. - Allergies Allergies: Allergies lisinopril Allergy (Verified 11/17/17 14:32) Swelling nebivolol HCl [From Bystolic] Adverse Reaction (Verified 11/17/17 14:32) bradycardia BRADYCARDIA - Current Medications Current Medications: Current Medications Acetaminophen (Tylenol) 1,000 mg PO TID [facility] Aspirin (Ecotrin) 81 mg PO DAILYCM [facility] Last Admin: 11/18/17 08:25 Dose: 81 mg Atorvastatin Calcium (Lipitor) 40 mg PO QHS [facility] Last Admin: 11/18/17 22:01 Dose: 40 mg Bisacodyl (Dulcolax) 5 mg PO DAILY PRN PRN PRN Reason: Constipation Calcium Acetate (Phoslo Gel Cap) 667 mg PO TIDCM [facility] Last Admin: 11/18/17 16:10 Dose: 667 mg Cholecalciferol (Vitamin D) 5,000 unit PO MOWEFR [facility] Clopidogrel Bisulfate (Plavix) 75 mg PO DAILY [facility] Last Admin: 11/18/17 08:30 Dose: 75 mg Cyclobenzaprine HCl (Cyclobenzaprine Hcl) 5 mg PO BID PRN PRN PRN Reason: SPASMS Dextrose (D50w Syringe) 0 gm IV X1 PRN; Protocol PRN Reason: Hypoglycemia Docusate Sodium (Colace) 100 mg PO DAILY [facility] Last Admin: 11/18/17 08:27 Dose: Not Given Glucagon () 1 mg IM .X1 PRN PRN Reason: Hypoglycemia Heparin Sodium (Porcine) (Heparin Na) 5,000 unit SC Q12 [facility] Last Admin: 11/18/17 21:56 Dose: 5,000 units Norepinephrine Bitartrate 8 mg (/ Dextrose) 258 mls @ 9.67 mls/hr IV .[id number] [facility] PRN Reason: 5 MCG/MIN Last Admin: 11/19/17 05:00 Dose: 9.67 mls/hr Insulin Glargine (Lantus (Bkc)) 22 units SC QHS [facility] Last Admin: 11/18/17 21:57 Dose: 22 units Insulin Human Lispro (Humalog Kwikpen (Bk)) 0 unit SQ ACHS [facility] PRN Reason: Protocol Last Admin: 11/18/17 21:56 Dose: 1 u Isosorbide Mononitrate (Imdur) 60 mg PO BID [facility] Last Admin: 11/18/17 21:15 Dose: Not Given Magnesium Hydroxide (Milk Of Magnesia) 30 ml PO DAILY PRN PRN Reason: Constipation Multivit/Ca Carb/B Cmplx/FA/Prenat (Nephrocaps, Renaphro) 1 capsule PO DAILY [facility] Last Admin: 11/18/17 08:29 Dose: 1 capsule Nutritional Formula (Nepro Carb Steady) 120 ml PO 4X/DAY [facility] Last Admin: 11/18/17 21:56 Dose: 120 ml Ondansetron HCl (Zofran) 4 mg IV Q8H PRN PRN PRN Reason: NAUSEA Last Admin: 11/18/17 18:23 Dose: 4 mg Oxycodone HCl (Oxyir) 7.5 mg PO Q4H PRN PRN PRN Reason: PAIN Last Admin: 11/18/17 08:23 Dose: 7.5 mg Pantoprazole Sodium (Protonix) 40 mg PO DAILY [facility] Last Admin: 11/18/17 08:30 Dose: 40 mg Psyllium Hydrophilic Mucilloid (Metamucil) 1 packet PO DAILY PRN PRN PRN Reason: CONSTIPATION Sodium Chloride () 5 - 30 ml IV UD PRN PRN Reason: SALINE FLUSH Last Admin: 11/19/17 01:25 Dose: 30 ml - Past Medical History Past Medical History (Chronic Problems): Chronic Problems (Last Reviewed 08/21/17 @ 14:33 by Pat Gomez) Fracture of fifth metatarsal bone of right foot (Chronic) Other specified peripheral vascular diseases (Chronic) Afib (Chronic) Congenital coronary artery anomaly (Chronic) S/P PTCA (percutaneous transluminal coronary angioplasty) (Chronic) Bradycardia (Chronic) CAD (coronary artery disease) (Chronic) Diabetes mellitus, type II (Chronic) Hyperlipidemia (Chronic) Hypothyroidism (Chronic) Anemia in chronic kidney disease (Chronic) Hypertension (Chronic) End stage renal disease on dialysis (Chronic) - Past Surgical History Surgical History: angioplasty, hysterectomy, total knee arthroplasty, - - cardiac stents, AVF - Social History Marital Status: Smoking Status: Former smoker Alcohol: None Drugs: None - Family History Maternal Family History: Family History (Last Updated 08/21/17 @ 14:36 by Pat Gomez) Sister Diabetes Hypertension History Items: Cancer - uterine Paternal Family History: Family History (Last Updated 08/21/17 @ 14:36 by Pat Gomez) Sister Diabetes Hypertension History Items: Cancer Sibling Family History: Family History (Last Updated 08/21/17 @ 14:36 by Pat Gomez) Sister Diabetes Hypertension History Items: Diabetes Review of Systems Constitutional: Reports: Anorexia, Weakness, Fatigue. Denies: Chills, Fever HEENT: Denies: Head Aches Cardiovascular: Reports: Chest Pain - yesterday, Edema. Denies: Syncope Respiratory: Denies: Cough, Shortness of Breath, Shortness of breath upon exertion Gastrointestinal: Reports: Abdominal Pain. Denies: Nausea, Vomiting Genitourinary: Reports: - - decreased urine output. Denies: Dysuria Musculoskeletal: Reports: Leg Pain Skin: Reports: Dryness. Denies: Rash Neurological: Reports: - - weakness. Denies: Focal weakness, Tremor, Seizures Psychiatric: Reports: Anxiety Hematologic/ Lymphatic: Reports: Anemia Patient Problems: Active and Suspected Problems (Last Reviewed 08/21/17 @ 14:33 by Pat Gomez) Hypotension (Acute) - Physical Exam General: Alert, Oriented x3, Cooperative, No apparent distress, - - drowsy HEENT: EOMI, Normocephalic Oral: Dry Mucosa Neck: Supple Lungs: Clear to auscultation Cardiovascular: Bradycardic, Irregular Rate, - - afib/flutter on monitor Abdomen: Bowel Sounds Present, Soft, Non-Distended, Tender - diffuse Extremities: Edema - BLE Skin: No rashes Musculoskeletal: No Muscle Wasting, - - AVF left arm Neurological: - - gen weakness, no tremor Psych/Mental Status: Appropriate, Depressed, Alert and oriented to time, place, person, mood and affect Vital Signs Temp Pulse Resp BP Pulse Ox 97.8 F 47 L 24 H 138/35 H 96 11/19/17 08:00 11/19/17 09:00 11/19/17 09:00 11/19/17 09:00 11/19/17 09:00 Oxygen Flow Rate (L/min) 3 Oxygen Delivery Method Nasal Cannula Weight: 89.5 kg Body Mass Index (BMI) 32.4 Intake and Output for Last 24 Hours 11/17/17 11/18/17 11/19/17 23:59 23:59 23:59 Intake Total 4200.8 / 4200.8 762 / 762 Output Total 3800 / 3800 0 / 0 Balance 400.8 / 400.8 762 / 762 Laboratory Tests Past 24 Hrs 11/18/17 11/18/17 11/18/17 12:00 14:10 14:40 WBC RBC Hgb Hct MCV MCH MCHC RDW RDW Differential Plt Count MPV Immature Gran % (Auto) Neut % (Auto) Lymph % (Auto) Williams % (Auto) Eos % (Auto) Baso % (Auto) Absolute Neuts (auto) Absolute Lymphs (auto) Total Counted Differential Comment Platelet Estimate Polychromasia Anisocytosis Macrocytosis Tear Drop Cells Schistocytes Specimen Type Sample Site pH Bicarbonate Actual POC Total CO2 Base Excess O2 Saturation ABG pCO2 ABG pO2 O2 Delivery Device Liter Flow Blood Gas Notified Whom Blood Gas Notified Time Sodium Potassium Chloride Carbon Dioxide Anion Gap BUN Creatinine Estim Creat Clear Calc Est GFR (MDRD) Af Amer Est GFR (MDRD) Non-Af BUN/Creatinine Ratio Glucose Calcium Phosphorus Magnesium Total Bilirubin AST ALT Alkaline Phosphatase Troponin I 0.063 H 0.050 H Total Protein Albumin Globulin Albumin/Globulin Ratio MRSA (PCR) Negative 11/18/17 11/18/17 11/18/17 15:00 17:55 17:55 WBC RBC Hgb Hct MCV MCH MCHC RDW RDW Differential Plt Count MPV Immature Gran % (Auto) Neut % (Auto) Lymph % (Auto) Williams % (Auto) Eos % (Auto) Baso % (Auto) Absolute Neuts (auto) Absolute Lymphs (auto) Total Counted Differential Comment Platelet Estimate Polychromasia Anisocytosis Macrocytosis Tear Drop Cells Schistocytes Specimen Type ART Sample Site R Brachial pH 7.40 Bicarbonate Actual 26.5 H POC Total CO2 28 Base Excess 2 O2 Saturation 95 ABG pCO2 43.0 ABG pO2 78 O2 Delivery Device Nasal Can Liter Flow 3.0 Blood Gas Notified Whom [facility] Blood Gas Notified Time 1500 Sodium 140 Potassium 4.1 Chloride 109 H Carbon Dioxide 21.0 Anion Gap 10 BUN 32 H Creatinine 2.24 H Estim Creat Clear Calc 19.83 Est GFR (MDRD) Af Amer 27 L Est GFR (MDRD) Non-Af 23 L BUN/Creatinine Ratio 14.3 Glucose 152 H Calcium 6.1 L* Phosphorus 4.7 Magnesium 1.2 L Total Bilirubin 0.70 AST 14 L ALT 9 L Alkaline Phosphatase 79 Troponin I 0.043 Total Protein 4.7 L Albumin 1.9 L Globulin 2.8 Albumin/Globulin Ratio 0.7 L MRSA (PCR) 11/18/17 11/19/17 11/19/17 18:15 04:10 04:10 WBC 5.6 7.4 RBC 3.97 L 3.94 L Hgb 11.5 L 11.8 L Hct 38.8 38.3 MCV 97.7 97.2 MCH 29.0 29.9 MCHC 29.6 L 30.8 L RDW 21.1 H 21.4 H RDW Differential 72.8 H 70.8 H Plt Count 130 L 191 MPV 9.8 10.2 Immature Gran % (Auto) 0.200 0.500 Neut % (Auto) 74.4 H 69.0 Lymph % (Auto) 14.7 L 21.3 Williams % (Auto) 6.7 7.2 Eos % (Auto) 3.6 1.5 Baso % (Auto) 0.4 0.5 Absolute Neuts (auto) 4.1 5.1 Absolute Lymphs (auto) 0.82 L 1.58 Total Counted Not Reportable Not Reportable Differential Comment SCANNED SCANNED Platelet Estimate ADEQUATE Polychromasia RARE Anisocytosis 3+ 2+ Macrocytosis 1+ Tear Drop Cells RARE Schistocytes RARE Specimen Type Sample Site pH Bicarbonate Actual POC Total CO2 Base Excess O2 Saturation ABG pCO2 ABG pO2 O2 Delivery Device Liter Flow Blood Gas Notified Whom Blood Gas Notified Time Sodium 134 L Potassium 5.8 H Chloride 96 L Carbon Dioxide 26.0 Anion Gap 12 BUN 44 H Creatinine 3.40 H Estim Creat Clear Calc 13.06 Est GFR (MDRD) Af Amer 17 L Est GFR (MDRD) Non-Af 14 L BUN/Creatinine Ratio 12.9 Glucose 229 H Calcium 8.4 L Phosphorus 7.5 H Magnesium Total Bilirubin AST ALT Alkaline Phosphatase Troponin I Total Protein Albumin Globulin Albumin/Globulin Ratio MRSA (PCR) 11/19/17 04:10 WBC RBC Hgb Hct MCV MCH MCHC RDW RDW Differential Plt Count MPV Immature Gran % (Auto) Neut % (Auto) Lymph % (Auto) Williams % (Auto) Eos % (Auto) Baso % (Auto) Absolute Neuts (auto) Absolute Lymphs (auto) Total Counted Differential Comment Platelet Estimate Polychromasia Anisocytosis Macrocytosis Tear Drop Cells Schistocytes Specimen Type Sample Site pH Bicarbonate Actual POC Total CO2 Base Excess O2 Saturation ABG pCO2 ABG pO2 O2 Delivery Device Liter Flow Blood Gas Notified Whom Blood Gas Notified Time Sodium Potassium Chloride Carbon Dioxide Anion Gap BUN Creatinine Estim Creat Clear Calc Est GFR (MDRD) Af Amer Est GFR (MDRD) Non-Af BUN/Creatinine Ratio Glucose Calcium Phosphorus Magnesium 2.9 H Total Bilirubin AST ALT Alkaline Phosphatase Troponin I Total Protein Albumin Globulin Albumin/Globulin Ratio MRSA (PCR) POC Glucose 11/19/17 11/18/17 11/18/17 07:32 21:54 16:06 POC Glucose 210 H 222 H 183 H 11/18/17 11:05 POC Glucose 201 H Clinical Impression(s) from Imaging Studies Chest X-Ray 11/17/17 15:17 IMPRESSION: No acute findings Electronically Signed: Jason GuallpaDO misha at 15:36 EDT Tel , Service support , Abdomen/Pelvis CT 11/17/17 15:21 IMPRESSION: [id number] ascites in all quadrants. 1.9 cm low-attenuation mass in the central liver, axial image 37. Suggest further evaluation perhaps with contrast MRI, and consider biopsy. Severe renal atrophy. Cannot occluded segments of bowel wall thickening. Electronically Signed: Ramos Morales MD at 17:08 EDT , Service support , Chest CTA 11/17/17 15:21 IMPRESSION: 1. No evidence of pulmonary embolism or thoracic aortic dissection 2. Stable scarring in both lung bases without acute airspace disease Electronically Signed: Jason RamuDO misha at 17:09 EDT Tel , Service support , Chest X-Ray 11/18/17 19:56 IMPRESSION: Moderate to severe cardiomegaly. No definite acute chest disease. Electronically Signed: Ramos Morales MD at 19:29 EDT , Service support , Assessment/Plan All Active Problems (Last Reviewed 08/21/17 @ 14:33 by Pat Gomez) Hypotension (Acute) Fall (Acute) Gait instability (Acute) Pain in right ankle and joints of right foot (Acute) Ileus (Acute) Unstable angina pectoris (Acute) NSTEMI (non-ST elevated myocardial infarction) (Acute) Hyperkalemia (Acute) Chest pressure (Acute) 1. ESRD HD MWF. Anuric. Seen on dialysis. Tolerating 1L fluid removal. BP stable on levophed 2. Hypervolemia IUF with HD with 3.8L fluid removed Sat night for massive wt gain over target wt with ascites, leg swelling, shortness of breath, abdominal distension. 3. Hypotension, bradycardia after received home meds. Suspect noncompliance with medications though pt denies it. Hx poor BP control, tachycardia at dialysis center. Remains in ICU on levo gtt. Blood cx sent. Currently afebrile without leukocytosis. 4. DM2 check a1C 5. Abdominal pain requesting pain medications. 6. HTN history with poor controlled BP 7. Hypoalbuminemia continue protein supplement 8. Hypomagnesemia overcorrected with iv mag. Cautious use of iv mag in ESRD pts 9. Hyperkalemia run on 2K. 10. Hyperphosphatemia unclear etiology when pt with poor nutritional state, on binders, poor oral intake.
--- NOTE | 2017-11-19 10:15 | CON.PCM_ITS ---
Consultation - Renal 11/19/17 PCP/ Referring MD: Requesting physician: Becka Simmons Primary care physician: Allie Lund Reason for Consultation:: ESRD HD MWF, fluid overload, hyperkalemia, renal mgmt - History of Present Illness History of Present Illness: The patient is a 72 year old F with ESRD due to diabetes, on HD MWF, last full dialysis Sunday, admitted for SOB, increased abdominal distension with pain, leg swelling. She has a history of noncompliance with massive interdialytic fluid gains frequently requiring IUF on Saturdays. She called dialysis center Sunday for complaints of shortness of breath but no spot was available so was advised by dialysis nurse to go to ER. She has not been able to reach target weight due to high fluid gains. BP has been elevated with tachycardia at dialysis center. She denies noncompliance with her medications at home. She became hypotension with SBP in the 80's, bradycardic from HR 100's to 40's after she was placed on her home BP med doses. She is on clonidine and carvedilol at home with coreg trecently increased for hypertension and tachycardia at dialysis last week. She was transferred to ICU on levo drip. She is currently receiving dialysis. Potassium was elevated at 5.8, phos 7.5, mag 2.9 after iv mag given for level of 1.2. She has a history of noncompliance with renal diet with hyperphosphatemia. Albumin low now at 1.9 with phos at 7.5. Currently on protein supplement. Cardiology has been consulted. Currently in atrial flutter. - Allergies Allergies: Allergies lisinopril Allergy (Verified 11/17/17 14:32) Swelling nebivolol HCl [From Bystolic] Adverse Reaction (Verified 11/17/17 14:32) bradycardia BRADYCARDIA - Current Medications Current Medications: Current Medications Acetaminophen (Tylenol) 1,000 mg PO TID [facility] Aspirin (Ecotrin) 81 mg PO DAILYCM [facility] Last Admin: 11/18/17 08:25 Dose: 81 mg Atorvastatin Calcium (Lipitor) 40 mg PO QHS [facility] Last Admin: 11/18/17 22:01 Dose: 40 mg Bisacodyl (Dulcolax) 5 mg PO DAILY PRN PRN PRN Reason: Constipation Calcium Acetate (Phoslo Gel Cap) 667 mg PO TIDCM [facility] Last Admin: 11/18/17 16:10 Dose: 667 mg Cholecalciferol (Vitamin D) 5,000 unit PO MOWEFR [facility] Clopidogrel Bisulfate (Plavix) 75 mg PO DAILY [facility] Last Admin: 11/18/17 08:30 Dose: 75 mg Cyclobenzaprine HCl (Cyclobenzaprine Hcl) 5 mg PO BID PRN PRN PRN Reason: SPASMS Dextrose (D50w Syringe) 0 gm IV X1 PRN; Protocol PRN Reason: Hypoglycemia Docusate Sodium (Colace) 100 mg PO DAILY [facility] Last Admin: 11/18/17 08:27 Dose: Not Given Glucagon () 1 mg IM .X1 PRN PRN Reason: Hypoglycemia Heparin Sodium (Porcine) (Heparin Na) 5,000 unit SC Q12 [facility] Last Admin: 11/18/17 21:56 Dose: 5,000 units Norepinephrine Bitartrate 8 mg (/ Dextrose) 258 mls @ 9.67 mls/hr IV .[id number] [facility] PRN Reason: 5 MCG/MIN Last Admin: 11/19/17 05:00 Dose: 9.67 mls/hr Insulin Glargine (Lantus (Bkc)) 22 units SC QHS [facility] Last Admin: 11/18/17 21:57 Dose: 22 units Insulin Human Lispro (Humalog Kwikpen (Bk)) 0 unit SQ ACHS [facility] PRN Reason: Protocol Last Admin: 11/18/17 21:56 Dose: 1 u Isosorbide Mononitrate (Imdur) 60 mg PO BID [facility] Last Admin: 11/18/17 21:15 Dose: Not Given Magnesium Hydroxide (Milk Of Magnesia) 30 ml PO DAILY PRN PRN Reason: Constipation Multivit/Ca Carb/B Cmplx/FA/Prenat (Nephrocaps, Renaphro) 1 capsule PO DAILY [facility] Last Admin: 11/18/17 08:29 Dose: 1 capsule Nutritional Formula (Nepro Carb Steady) 120 ml PO 4X/DAY [facility] Last Admin: 11/18/17 21:56 Dose: 120 ml Ondansetron HCl (Zofran) 4 mg IV Q8H PRN PRN PRN Reason: NAUSEA Last Admin: 11/18/17 18:23 Dose: 4 mg Oxycodone HCl (Oxyir) 7.5 mg PO Q4H PRN PRN PRN Reason: PAIN Last Admin: 11/18/17 08:23 Dose: 7.5 mg Pantoprazole Sodium (Protonix) 40 mg PO DAILY [facility] Last Admin: 11/18/17 08:30 Dose: 40 mg Psyllium Hydrophilic Mucilloid (Metamucil) 1 packet PO DAILY PRN PRN PRN Reason: CONSTIPATION Sodium Chloride () 5 - 30 ml IV UD PRN PRN Reason: SALINE FLUSH Last Admin: 11/19/17 01:25 Dose: 30 ml - Past Medical History Past Medical History (Chronic Problems): Chronic Problems (Last Reviewed 08/21/17 @ 14:33 by Pat Gomez) Fracture of fifth metatarsal bone of right foot (Chronic) Other specified peripheral vascular diseases (Chronic) Afib (Chronic) Congenital coronary artery anomaly (Chronic) S/P PTCA (percutaneous transluminal coronary angioplasty) (Chronic) Bradycardia (Chronic) CAD (coronary artery disease) (Chronic) Diabetes mellitus, type II (Chronic) Hyperlipidemia (Chronic) Hypothyroidism (Chronic) Anemia in chronic kidney disease (Chronic) Hypertension (Chronic) End stage renal disease on dialysis (Chronic) - Past Surgical History Surgical History: angioplasty, hysterectomy, total knee arthroplasty, - - cardiac stents, AVF - Social History Marital Status: Smoking Status: Former smoker Alcohol: None Drugs: None - Family History Maternal Family History: Family History (Last Updated 08/21/17 @ 14:36 by Pat Gomez) Sister Diabetes Hypertension History Items: Cancer - uterine Paternal Family History: Family History (Last Updated 08/21/17 @ 14:36 by Pat Gomez) Sister Diabetes Hypertension History Items: Cancer Sibling Family History: Family History (Last Updated 08/21/17 @ 14:36 by Pat Gomez) Sister Diabetes Hypertension History Items: Diabetes Review of Systems Constitutional: Reports: Anorexia, Weakness, Fatigue. Denies: Chills, Fever HEENT: Denies: Head Aches Cardiovascular: Reports: Chest Pain - yesterday, Edema. Denies: Syncope Respiratory: Denies: Cough, Shortness of Breath, Shortness of breath upon exertion Gastrointestinal: Reports: Abdominal Pain. Denies: Nausea, Vomiting Genitourinary: Reports: - - decreased urine output. Denies: Dysuria Musculoskeletal: Reports: Leg Pain Skin: Reports: Dryness. Denies: Rash Neurological: Reports: - - weakness. Denies: Focal weakness, Tremor, Seizures Psychiatric: Reports: Anxiety Hematologic/ Lymphatic: Reports: Anemia Patient Problems: Active and Suspected Problems (Last Reviewed 08/21/17 @ 14:33 by Pat Gomez) Hypotension (Acute) - Physical Exam General: Alert, Oriented x3, Cooperative, No apparent distress, - - drowsy HEENT: EOMI, Normocephalic Oral: Dry Mucosa Neck: Supple Lungs: Clear to auscultation Cardiovascular: Bradycardic, Irregular Rate, - - afib/flutter on monitor Abdomen: Bowel Sounds Present, Soft, Non-Distended, Tender - diffuse Extremities: Edema - BLE Skin: No rashes Musculoskeletal: No Muscle Wasting, - - AVF left arm Neurological: - - gen weakness, no tremor Psych/Mental Status: Appropriate, Depressed, Alert and oriented to time, place, person, mood and affect Vital Signs Temp Pulse Resp BP Pulse Ox 97.8 F 47 L 24 H 138/35 H 96 11/19/17 08:00 11/19/17 09:00 11/19/17 09:00 11/19/17 09:00 11/19/17 09:00 Oxygen Flow Rate (L/min) 3 Oxygen Delivery Method Nasal Cannula Weight: 89.5 kg Body Mass Index (BMI) 32.4 Intake and Output for Last 24 Hours 11/17/17 11/18/17 11/19/17 23:59 23:59 23:59 Intake Total 4200.8 / 4200.8 762 / 762 Output Total 3800 / 3800 0 / 0 Balance 400.8 / 400.8 762 / 762 Laboratory Tests Past 24 Hrs 11/18/17 11/18/17 11/18/17 12:00 14:10 14:40 WBC RBC Hgb Hct MCV MCH MCHC RDW RDW Differential Plt Count MPV Immature Gran % (Auto) Neut % (Auto) Lymph % (Auto) [place] % (Auto) Eos % (Auto) Baso % (Auto) Absolute Neuts (auto) Absolute Lymphs (auto) Total Counted Differential Comment Platelet Estimate Polychromasia Anisocytosis Macrocytosis Tear Drop Cells Schistocytes Specimen Type Sample Site pH Bicarbonate Actual POC Total CO2 Base Excess O2 Saturation ABG pCO2 ABG pO2 O2 Delivery Device Liter Flow Blood Gas Notified Whom Blood Gas Notified Time Sodium Potassium Chloride Carbon Dioxide Anion Gap BUN Creatinine Estim Creat Clear Calc Est GFR (MDRD) Af Amer Est GFR (MDRD) Non-Af BUN/Creatinine Ratio Glucose Calcium Phosphorus Magnesium Total Bilirubin AST ALT Alkaline Phosphatase Troponin I 0.063 H 0.050 H Total Protein Albumin Globulin Albumin/Globulin Ratio MRSA (PCR) Negative 11/18/17 11/18/17 11/18/17 15:00 17:55 17:55 WBC RBC Hgb Hct MCV MCH MCHC RDW RDW Differential Plt Count MPV Immature Gran % (Auto) Neut % (Auto) Lymph % (Auto) [place] % (Auto) Eos % (Auto) Baso % (Auto) Absolute Neuts (auto) Absolute Lymphs (auto) Total Counted Differential Comment Platelet Estimate Polychromasia Anisocytosis Macrocytosis Tear Drop Cells Schistocytes Specimen Type ART Sample Site R Brachial pH 7.40 Bicarbonate Actual 26.5 H POC Total CO2 28 Base Excess 2 O2 Saturation 95 ABG pCO2 43.0 ABG pO2 78 O2 Delivery Device Nasal Can Liter Flow 3.0 Blood Gas Notified Whom [facility] Blood Gas Notified Time 1500 Sodium 140 Potassium 4.1 Chloride 109 H Carbon Dioxide 21.0 Anion Gap 10 BUN 32 H Creatinine 2.24 H Estim Creat Clear Calc 19.83 Est GFR (MDRD) Af Amer 27 L Est GFR (MDRD) Non-Af 23 L BUN/Creatinine Ratio 14.3 Glucose 152 H Calcium 6.1 L* Phosphorus 4.7 Magnesium 1.2 L Total Bilirubin 0.70 AST 14 L ALT 9 L Alkaline Phosphatase 79 Troponin I 0.043 Total Protein 4.7 L Albumin 1.9 L Globulin 2.8 Albumin/Globulin Ratio 0.7 L MRSA (PCR) 11/18/17 11/19/17 11/19/17 18:15 04:10 04:10 WBC 5.6 7.4 RBC 3.97 L 3.94 L Hgb 11.5 L 11.8 L Hct 38.8 38.3 MCV 97.7 97.2 MCH 29.0 29.9 MCHC 29.6 L 30.8 L RDW 21.1 H 21.4 H RDW Differential 72.8 H 70.8 H Plt Count 130 L 191 MPV 9.8 10.2 Immature Gran % (Auto) 0.200 0.500 Neut % (Auto) 74.4 H 69.0 Lymph % (Auto) 14.7 L 21.3 [place] % (Auto) 6.7 7.2 Eos % (Auto) 3.6 1.5 Baso % (Auto) 0.4 0.5 Absolute Neuts (auto) 4.1 5.1 Absolute Lymphs (auto) 0.82 L 1.58 Total Counted Not Reportable Not Reportable Differential Comment SCANNED SCANNED Platelet Estimate ADEQUATE Polychromasia RARE Anisocytosis 3+ 2+ Macrocytosis 1+ Tear Drop Cells RARE Schistocytes RARE Specimen Type Sample Site pH Bicarbonate Actual POC Total CO2 Base Excess O2 Saturation ABG pCO2 ABG pO2 O2 Delivery Device Liter Flow Blood Gas Notified Whom Blood Gas Notified Time Sodium 134 L Potassium 5.8 H Chloride 96 L Carbon Dioxide 26.0 Anion Gap 12 BUN 44 H Creatinine 3.40 H Estim Creat Clear Calc 13.06 Est GFR (MDRD) Af Amer 17 L Est GFR (MDRD) Non-Af 14 L BUN/Creatinine Ratio 12.9 Glucose 229 H Calcium 8.4 L Phosphorus 7.5 H Magnesium Total Bilirubin AST ALT Alkaline Phosphatase Troponin I Total Protein Albumin Globulin Albumin/Globulin Ratio MRSA (PCR) 11/19/17 04:10 WBC RBC Hgb Hct MCV MCH MCHC RDW RDW Differential Plt Count MPV Immature Gran % (Auto) Neut % (Auto) Lymph % (Auto) [place] % (Auto) Eos % (Auto) Baso % (Auto) Absolute Neuts (auto) Absolute Lymphs (auto) Total Counted Differential Comment Platelet Estimate Polychromasia Anisocytosis Macrocytosis Tear Drop Cells Schistocytes Specimen Type Sample Site pH Bicarbonate Actual POC Total CO2 Base Excess O2 Saturation ABG pCO2 ABG pO2 O2 Delivery Device Liter Flow Blood Gas Notified Whom Blood Gas Notified Time Sodium Potassium Chloride Carbon Dioxide Anion Gap BUN Creatinine Estim Creat Clear Calc Est GFR (MDRD) Af Amer Est GFR (MDRD) Non-Af BUN/Creatinine Ratio Glucose Calcium Phosphorus Magnesium 2.9 H Total Bilirubin AST ALT Alkaline Phosphatase Troponin I Total Protein Albumin Globulin Albumin/Globulin Ratio MRSA (PCR) POC Glucose 11/19/17 11/18/17 11/18/17 07:32 21:54 16:06 POC Glucose 210 H 222 H 183 H 11/18/17 11:05 POC Glucose 201 H Clinical Impression(s) from Imaging Studies Chest X-Ray 11/17/17 15:17 IMPRESSION: No acute findings Electronically Signed: Jason GuallpaDO misha at 15:36 EDT Tel , Service support , Abdomen/Pelvis CT 11/17/17 15:21 IMPRESSION: [id number] ascites in all quadrants. 1.9 cm low-attenuation mass in the central liver, axial image 37. Suggest further evaluation perhaps with contrast MRI, and consider biopsy. Severe renal atrophy. Cannot occluded segments of bowel wall thickening. Electronically Signed: Ramos Morales MD at 17:08 EDT , Service support , Chest CTA 11/17/17 15:21 IMPRESSION: 1. No evidence of pulmonary embolism or thoracic aortic dissection 2. Stable scarring in both lung bases without acute airspace disease Electronically Signed: Jason RamuDO misha at 17:09 EDT Tel , Service support , Chest X-Ray 11/18/17 19:56 IMPRESSION: Moderate to severe cardiomegaly. No definite acute chest disease. Electronically Signed: Ramos Morales MD at 19:29 EDT , Service support , Assessment/Plan All Active Problems (Last Reviewed 08/21/17 @ 14:33 by Pat Gomez) Hypotension (Acute) Fall (Acute) Gait instability (Acute) Pain in right ankle and joints of right foot (Acute) Ileus (Acute) Unstable angina pectoris (Acute) NSTEMI (non-ST elevated myocardial infarction) (Acute) Hyperkalemia (Acute) Chest pressure (Acute) 1. ESRD HD MWF. Anuric. Seen on dialysis. Tolerating 1L fluid removal. BP stable on levophed 2. Hypervolemia IUF with HD with 3.8L fluid removed Sat night for massive wt gain over target wt with ascites, leg swelling, shortness of breath, abdominal distension. 3. Hypotension, bradycardia after received home meds. Suspect noncompliance with medications though pt denies it. Hx poor BP control, tachycardia at dialysis center. Remains in ICU on levo gtt. Blood cx sent. Currently afebrile without leukocytosis. 4. DM2 check a1C 5. Abdominal pain requesting pain medications. 6. HTN history with poor controlled BP 7. Hypoalbuminemia continue protein supplement 8. Hypomagnesemia overcorrected with iv mag. Cautious use of iv mag in ESRD pts 9. Hyperkalemia run on 2K. 10. Hyperphosphatemia unclear etiology when pt with poor nutritional state, on binders, poor oral intake.
--- NOTE | 2017-11-19 12:16 | DIALYSIS ---
HD X 4 HRS ON A 2K BATH UF-1000ML TOLERATED TREATMENT WELL REMAINSON LEVOPHED DURING DIALYSIS. STASIS AT [facility] AT SITES. PT STABLE POST TREATMENT. C/O ABDOMINAL PAIN REPOST TO [facility]
[2017-11-19 14:06] LABS: Bedside Glucose 140 mg/dL (70-110)
[2017-11-19] MEDS: Acetaminophen 500 MG Tablet 1000 MG PO ×2 (14:45→21:50)
[2017-11-19] MEDS: Clopidogrel Bisulfate 75 MG Tablet PO (14:47)
[2017-11-19] MEDS: Docusate Sodium 100 MG Capsule PO (14:47)
[2017-11-19] MEDS: Pantoprazole Sodium 40 MG Tablet PO (14:48)
[2017-11-19] MEDS: CYCLOBENZAPRINE HCL 5 MG TABLET PO (14:51)
[2017-11-19] MEDS: Heparin Injection (Vial) 5,000 UNIT/ML VIAL 5000 UNIT SC ×2 (14:51→21:46)
[2017-11-19] MEDS: Folic Acid/Vitamin B Comp W-C 1 Capsule 1 CAP PO (14:52)
[2017-11-19] MEDS: Calcium Acetate 667 MG Capsule PO ×2 (14:54→17:38)
[2017-11-19] MEDS: Aspirin E.C. 81 MG Tablet PO (14:54)
[2017-11-19] MEDS: Nepro Liquid 120 ML LIQUID PO ×3 (14:55→21:50)
[2017-11-19 17:40] LABS: Bedside Glucose 124 mg/dL (70-110)
[2017-11-19] MEDS: Insulin Lispro 100 UNIT/ML INSULN.PEN SQ (21:48)
[2017-11-19] MEDS: Isosorbide Mononitrate 60 MG Tablet PO (21:49)
[2017-11-19] MEDS: Atorvastatin Calcium 40 MG Tablet PO (21:50)
[2017-11-19 22:06] LABS: Bedside Glucose 177 mg/dL (70-110)
[2017-11-20] VITALS (17 sets, daily range): BP systolic 93–181; BP diastolic 30–72; PULSE 61–86; RESP 11–20; TEMP 36.2–36.7; O2SAT 91–100
[2017-11-20] MEDS: fentaNYL 100 MCG/2 ML Ampul 50 MCG IV ×5 (00:25→20:20)
[2017-11-20] MEDS: 0.9% NaCl Peripheral Flush Adult/Peds IV ×5 (00:25→20:21)
[2017-11-20] MEDS: Acetaminophen 500 MG Tablet 1000 MG PO ×3 (05:58→22:38)
--- NOTE | 2017-11-20 06:39 | PCM.PN.INT ---
Subjective: The patient was seen and examined at the bedside this morning. Events from the last 24 hours have been reviewed. The patient is currently afebrile, hemodynamically stable and maintaining appropriate oxygen saturations on 2 L/min via nasal cannula. The patient has been off of Levophed since 1500 hrs. yesterday. She did tolerate dialysis yesterday with 1 L of overall fluid removal. She continues to report significant pain complaints. Objective: The patient's most recent lab work, culture data and imaging studies have all been personally reviewed. CT abdomen/pelvis revealed mild to moderate ascites and a 1.9 cm low-attenuation mass in central liver. Surface echocardiogram revealed normal LV size and function with evidence of stage III diastolic dysfunction. There was evidence of a moderately dilated RV with mild global RV systolic dysfunction, a moderately enlarged right atrium, and 4+ tricuspid valve insufficiency. Liver ultrasound revealed a 2.3 cm echogenic mass in the right hepatic lobe. Blood cultures have shown no growth to date. General: Alert, Cooperative, No apparent distress HEENT: Atraumatic, PERRLA, Normocephalic Oral: No Gingival or Mucosal Lesions/ Ulcerations Neck: Supple, No Nodes, Trachea Midline Lungs: No rhonchi, No wheeze, No rales, Diminished Cardiovascular: Normal S1, Normal S2, Irregular Rate, Murmur, No rub noted, No Gallop Abdomen: Bowel Sounds Present, Soft, Non Tender Extremities: No clubbing, No cyanosis, Edema Skin: No breakdown Musculoskeletal: No Tenderness to Palpation of Joints or Extremities Lymphatic: No Cervical, Supraclavicular, or Inguinal Adenopathy Neurological: Neuro grossly intact Psych/Mental Status: Normal Affect, Appropriate Vital Signs Temp Pulse Resp BP Pulse Ox 97.6 F L 69 17 118/64 94 11/20/17 06:00 11/20/17 06:00 11/20/17 06:00 11/20/17 06:00 11/20/17 06:00 Oxygen Flow Rate (L/min) 2 Oxygen Delivery Method Nasal Cannula Weight: 199 lb 1.239 oz Body Mass Index (BMI) 32.4 Intake and Output for Last 24 Hours 11/18/17 11/19/17 11/20/17 23:59 23:59 23:59 Intake Total 4200.8 / 4200.8 1162 / 1162 80 / 80 Output Total 3800 / 3800 1000 / 1000 0 / 0 Balance 400.8 / 400.8 162 / 162 80 / 80 Labs (Last 48 Hours) 11/18/17 11/18/17 11/18/17 06:25 06:25 06:48 WBC 4.8 RBC 3.76 L Hgb 11.2 L Hct 36.3 L MCV 96.5 MCH 29.8 MCHC 30.9 L RDW 21.5 H RDW Differential 71.9 H Plt Count 119 L MPV 9.6 Immature Gran % (Auto) Neut % (Auto) Lymph % (Auto) Traverse % (Auto) Eos % (Auto) Baso % (Auto) Absolute Neuts (auto) Absolute Lymphs (auto) Total Counted Differential Comment Platelet Estimate Polychromasia Anisocytosis Macrocytosis Tear Drop Cells Schistocytes Specimen Type Sample Site pH Bicarbonate Actual POC Total CO2 Base Excess O2 Saturation ABG pCO2 ABG pO2 O2 Delivery Device Liter Flow Blood Gas Notified Whom Blood Gas Notified Time Sodium 132 L Potassium 4.6 Chloride 95 L Carbon Dioxide 29.0 Anion Gap 8 BUN 36 H Creatinine 2.70 H Estim Creat Clear Calc 16.45 Est GFR (MDRD) Af Amer 22 L Est GFR (MDRD) Non-Af 18 L BUN/Creatinine Ratio 13.3 Glucose 142 H Hemoglobin A1c Calcium 8.5 Phosphorus Magnesium Total Bilirubin AST ALT Alkaline Phosphatase Troponin I Total Protein Albumin Globulin Albumin/Globulin Ratio Triglycerides 74 Cholesterol 73 LDL Cholesterol 22 VLDL Cholesterol 15 HDL Cholesterol 36 L MRSA (PCR) POC Glucose 137 H 11/18/17 11/18/17 11/18/17 11:05 12:00 14:10 WBC RBC Hgb Hct MCV MCH MCHC RDW RDW Differential Plt Count MPV Immature Gran % (Auto) Neut % (Auto) Lymph % (Auto) Traverse % (Auto) Eos % (Auto) Baso % (Auto) Absolute Neuts (auto) Absolute Lymphs (auto) Total Counted Differential Comment Platelet Estimate Polychromasia Anisocytosis Macrocytosis Tear Drop Cells Schistocytes Specimen Type Sample Site pH Bicarbonate Actual POC Total CO2 Base Excess O2 Saturation ABG pCO2 ABG pO2 O2 Delivery Device Liter Flow Blood Gas Notified Whom Blood Gas Notified Time Sodium Potassium Chloride Carbon Dioxide Anion Gap BUN Creatinine Estim Creat Clear Calc Est GFR (MDRD) Af Amer Est GFR (MDRD) Non-Af BUN/Creatinine Ratio Glucose Hemoglobin A1c Calcium Phosphorus Magnesium Total Bilirubin AST ALT Alkaline Phosphatase Troponin I 0.063 H Total Protein Albumin Globulin Albumin/Globulin Ratio Triglycerides Cholesterol LDL Cholesterol VLDL Cholesterol HDL Cholesterol MRSA (PCR) Negative POC Glucose 201 H 11/18/17 11/18/17 11/18/17 14:40 15:00 16:06 WBC RBC Hgb Hct MCV MCH MCHC RDW RDW Differential Plt Count MPV Immature Gran % (Auto) Neut % (Auto) Lymph % (Auto) Traverse % (Auto) Eos % (Auto) Baso % (Auto) Absolute Neuts (auto) Absolute Lymphs (auto) Total Counted Differential Comment Platelet Estimate Polychromasia Anisocytosis Macrocytosis Tear Drop Cells Schistocytes Specimen Type ART Sample Site R Brachial pH 7.40 Bicarbonate Actual 26.5 H POC Total CO2 28 Base Excess 2 O2 Saturation 95 ABG pCO2 43.0 ABG pO2 78 O2 Delivery Device Nasal Can Liter Flow 3.0 Blood Gas Notified Whom [facility] Blood Gas Notified Time 1500 Sodium Potassium Chloride Carbon Dioxide Anion Gap BUN Creatinine Estim Creat Clear Calc Est GFR (MDRD) Af Amer Est GFR (MDRD) Non-Af BUN/Creatinine Ratio Glucose Hemoglobin A1c Calcium Phosphorus Magnesium Total Bilirubin AST ALT Alkaline Phosphatase Troponin I 0.050 H Total Protein Albumin Globulin Albumin/Globulin Ratio Triglycerides Cholesterol LDL Cholesterol VLDL Cholesterol HDL Cholesterol MRSA (PCR) POC Glucose 183 H 11/18/17 11/18/17 11/18/17 17:55 17:55 18:15 WBC 5.6 RBC 3.97 L Hgb 11.5 L Hct 38.8 MCV 97.7 MCH 29.0 MCHC 29.6 L RDW 21.1 H RDW Differential 72.8 H Plt Count 130 L MPV 9.8 Immature Gran % (Auto) 0.200 Neut % (Auto) 74.4 H Lymph % (Auto) 14.7 L Traverse % (Auto) 6.7 Eos % (Auto) 3.6 Baso % (Auto) 0.4 Absolute Neuts (auto) 4.1 Absolute Lymphs (auto) 0.82 L Total Counted Not Reportable Differential Comment SCANNED Platelet Estimate ADEQUATE Polychromasia RARE Anisocytosis 3+ Macrocytosis 1+ Tear Drop Cells RARE Schistocytes RARE Specimen Type Sample Site pH Bicarbonate Actual POC Total CO2 Base Excess O2 Saturation ABG pCO2 ABG pO2 O2 Delivery Device Liter Flow Blood Gas Notified Whom Blood Gas Notified Time Sodium 140 Potassium 4.1 Chloride 109 H Carbon Dioxide 21.0 Anion Gap 10 BUN 32 H Creatinine 2.24 H Estim Creat Clear Calc 19.83 Est GFR (MDRD) Af Amer 27 L Est GFR (MDRD) Non-Af 23 L BUN/Creatinine Ratio 14.3 Glucose 152 H Hemoglobin A1c Calcium 6.1 L* Phosphorus 4.7 Magnesium 1.2 L Total Bilirubin 0.70 AST 14 L ALT 9 L Alkaline Phosphatase 79 Troponin I 0.043 Total Protein 4.7 L Albumin 1.9 L Globulin 2.8 Albumin/Globulin Ratio 0.7 L Triglycerides Cholesterol LDL Cholesterol VLDL Cholesterol HDL Cholesterol MRSA (PCR) POC Glucose 11/18/17 11/19/17 11/19/17 21:54 04:10 04:10 WBC 7.4 RBC 3.94 L Hgb 11.8 L Hct 38.3 MCV 97.2 MCH 29.9 MCHC 30.8 L RDW 21.4 H RDW Differential 70.8 H Plt Count 191 MPV 10.2 Immature Gran % (Auto) 0.500 Neut % (Auto) 69.0 Lymph % (Auto) 21.3 Traverse % (Auto) 7.2 Eos % (Auto) 1.5 Baso % (Auto) 0.5 Absolute Neuts (auto) 5.1 Absolute Lymphs (auto) 1.58 Total Counted Not Reportable Differential Comment SCANNED Platelet Estimate Polychromasia Anisocytosis 2+ Macrocytosis Tear Drop Cells Schistocytes Specimen Type Sample Site pH Bicarbonate Actual POC Total CO2 Base Excess O2 Saturation ABG pCO2 ABG pO2 O2 Delivery Device Liter Flow Blood Gas Notified Whom Blood Gas Notified Time Sodium 134 L Potassium 5.8 H Chloride 96 L Carbon Dioxide 26.0 Anion Gap 12 BUN 44 H Creatinine 3.40 H Estim Creat Clear Calc 13.06 Est GFR (MDRD) Af Amer 17 L Est GFR (MDRD) Non-Af 14 L BUN/Creatinine Ratio 12.9 Glucose 229 H Hemoglobin A1c Calcium 8.4 L Phosphorus 7.5 H Magnesium Total Bilirubin AST ALT Alkaline Phosphatase Troponin I Total Protein Albumin Globulin Albumin/Globulin Ratio Triglycerides Cholesterol LDL Cholesterol VLDL Cholesterol HDL Cholesterol MRSA (PCR) POC Glucose 222 H 11/19/17 11/19/17 11/19/17 04:10 07:32 11:53 WBC RBC Hgb Hct MCV MCH MCHC RDW RDW Differential Plt Count MPV Immature Gran % (Auto) Neut % (Auto) Lymph % (Auto) Traverse % (Auto) Eos % (Auto) Baso % (Auto) Absolute Neuts (auto) Absolute Lymphs (auto) Total Counted Differential Comment Platelet Estimate Polychromasia Anisocytosis Macrocytosis Tear Drop Cells Schistocytes Specimen Type Sample Site pH Bicarbonate Actual POC Total CO2 Base Excess O2 Saturation ABG pCO2 ABG pO2 O2 Delivery Device Liter Flow Blood Gas Notified Whom Blood Gas Notified Time Sodium Potassium Chloride Carbon Dioxide Anion Gap BUN Creatinine Estim Creat Clear Calc Est GFR (MDRD) Af Amer Est GFR (MDRD) Non-Af BUN/Creatinine Ratio Glucose Hemoglobin A1c Calcium Phosphorus Magnesium 2.9 H Total Bilirubin AST ALT Alkaline Phosphatase Troponin I Total Protein Albumin Globulin Albumin/Globulin Ratio Triglycerides Cholesterol LDL Cholesterol VLDL Cholesterol HDL Cholesterol MRSA (PCR) POC Glucose 210 H 140 H 11/19/17 11/19/17 11/20/17 17:35 21:42 04:10 WBC RBC Hgb Hct MCV MCH MCHC RDW RDW Differential Plt Count MPV Immature Gran % (Auto) Neut % (Auto) Lymph % (Auto) Traverse % (Auto) Eos % (Auto) Baso % (Auto) Absolute Neuts (auto) Absolute Lymphs (auto) Total Counted Differential Comment Platelet Estimate Polychromasia Anisocytosis Macrocytosis Tear Drop Cells Schistocytes Specimen Type Sample Site pH Bicarbonate Actual POC Total CO2 Base Excess O2 Saturation ABG pCO2 ABG pO2 O2 Delivery Device Liter Flow Blood Gas Notified Whom Blood Gas Notified Time Sodium Potassium Chloride Carbon Dioxide Anion Gap BUN Creatinine Estim Creat Clear Calc Est GFR (MDRD) Af Amer Est GFR (MDRD) Non-Af BUN/Creatinine Ratio Glucose Hemoglobin A1c Pending Calcium Phosphorus Magnesium Total Bilirubin AST ALT Alkaline Phosphatase Troponin I Total Protein Albumin Globulin Albumin/Globulin Ratio Triglycerides Cholesterol LDL Cholesterol VLDL Cholesterol HDL Cholesterol MRSA (PCR) POC Glucose 124 H 177 H Clinical Impression(s) from Imaging Studies Chest X-Ray 11/17/17 15:17 IMPRESSION: No acute findings Electronically Signed: Jason Danielle DO at 15:36 EDT Tel , Service support , Abdomen/Pelvis CT 11/17/17 15:21 IMPRESSION: [id number] ascites in all quadrants. 1.9 cm low-attenuation mass in the central liver, axial image 37. Suggest further evaluation perhaps with contrast MRI, and consider biopsy. Severe renal atrophy. Cannot occluded segments of bowel wall thickening. Electronically Signed: Ramos Morales MD at 17:08 EDT , Service support , Chest CTA 11/17/17 15:21 IMPRESSION: 1. No evidence of pulmonary embolism or thoracic aortic dissection 2. Stable scarring in both lung bases without acute airspace disease Electronically Signed: Jason Danielle DO at 17:09 EDT Tel , Service support , Chest X-Ray 11/18/17 19:56 IMPRESSION: Moderate to severe cardiomegaly. No definite acute chest disease. Electronically Signed: Ramos Morales MD at 19:29 EDT , Service support , Liver Ultrasound 11/19/17 08:22 IMPRESSION: 2.3 cm echogenic mass in the right hepatic lobe. Ascites. Electronically Signed: Ramos Morales MD at 19:35 EDT , Service support , Medical Necessity - Tobacco Use Smoking Status: Former smoker Tobacco Use: Non-smoker Assessment/Plan All Active Problems (Last Reviewed 08/21/17 @ 14:33 by Pat Gomez) Hypotension (Acute) Fall (Acute) Gait instability (Acute) Pain in right ankle and joints of right foot (Acute) Ileus (Acute) Unstable angina pectoris (Acute) NSTEMI (non-ST elevated myocardial infarction) (Acute) Hyperkalemia (Acute) Chest pressure (Acute) RECOMMENDATIONS: 1. Continue hemodialysis per nephrology recommendations. 2. Slow reintroduction of beta-morelia/antihypertensives, per cardiology recommendations. Per the patient's family, she was noncompliant with the use of the aforementioned medications at home. 3. Continue fentanyl for pain control for now 4. Additional imaging/workup of the hepatic lesion noted on CT abdomen/pelvis and liver ultrasound. 5. Wean supplemental oxygen to maintain saturations at or above 90%. 6. Encourage incentive spirometer use and mobilize patient as tolerated. IMPRESSIONS: 1. Combined shock Likely multifactorial in etiology with cardiac, hypovolemia and polypharmacy contributing. The patient's hemodynamics have stabilized with the use of Levophed and she was able to be weaned from vasopressor support on the afternoon of November 19. She has remained hemodynamically stable since that time. Continue hemodialysis per nephrology recommendations. Avoid overzealous fluid removal. Recommend slow reintroduction of beta-morelia/home antihypertensives, as the patient did endorse noncompliance with their use. 2. Acute hypoxic respiratory insufficiency Likely secondary to decompensated heart failure in the setting of dietary indiscretions. Continue hemodialysis per nephrology recommendations. Wean supplemental oxygen to maintain saturations at or above 90%. Encourage incentive spirometer use and mobilize patient as tolerated. 3. Non-ST elevation myocardial infarction/coronary artery disease Continue medical management per cardiology recommendations. 4. Undifferentiated abdominal pain The patient has undifferentiated abdominal pain, which appears to be an acute issue for her. CT abdomen/pelvis obtained on presentation was limited due to his lack of IV/p.o. contrast. Liver ultrasound did reveal a hepatic lesion. Therefore, we will plan to proceed with obtaining an MRI for further characterization. Continue fentanyl for pain control for now. 5. Neuropathy/obesity/hyperlipidemia/GERD/hypertension/diabetes Complicates care, management, recovery and prognosis. Continue Lantus and sliding scale insulin coverage. The patient will require physical therapy evaluation. Antihypertensives are currently on hold. This note was generated with [employer] dictation software. It may contain incorrect words, spelling, and punctuation that were not noted in checking the note before signing. DISPOSITION: The patient is medically stable for transfer out of the intensive care unit. Given the lack of ongoing ICU/pulmonary needs, will sign off. Please call with any additional questions. Code Visit Inpatient E&M: [id number] [facility] L3
--- NOTE | 2017-11-20 06:45 | PN_ITS ---
Subjective: The patient was seen and examined at the bedside this morning. Events from the last 24 hours have been reviewed. The patient is currently afebrile, hemodynamically stable and maintaining appropriate oxygen saturations on 2 L/ min via nasal cannula. The patient has been off of Levophed since 1500 hrs. yesterday. She did tolerate dialysis yesterday with 1 L of overall fluid removal. She continues to report significant pain complaints. Objective: The patient's most recent lab work, culture data and imaging studies have all been personally reviewed. CT abdomen/pelvis revealed mild to moderate ascites and a 1.9 cm low-attenuation mass in central liver. Surface echocardiogram revealed normal LV size and function with evidence of stage III diastolic dysfunction. There was evidence of a moderately dilated RV with mild global RV systolic dysfunction, a moderately enlarged right atrium, and 4+ tricuspid valve insufficiency. Liver ultrasound revealed a 2.3 cm echogenic mass in the right hepatic lobe. Blood cultures have shown no growth to date. General: Alert, Cooperative, No apparent distress HEENT: Atraumatic, PERRLA, Normocephalic Oral: No Gingival or Mucosal Lesions/ Ulcerations Neck: Supple, No Nodes, Trachea Midline Lungs: No rhonchi, No wheeze, No rales, Diminished Cardiovascular: Normal S1, Normal S2, Irregular Rate, Murmur, No rub noted, No Gallop Abdomen: Bowel Sounds Present, Soft, Non Tender Extremities: No clubbing, No cyanosis, Edema Skin: No breakdown Musculoskeletal: No Tenderness to Palpation of Joints or Extremities Lymphatic: No Cervical, Supraclavicular, or Inguinal Adenopathy Neurological: Neuro grossly intact Psych/Mental Status: Normal Affect, Appropriate Vital Signs Temp Pulse Resp BP Pulse Ox 97.6 F L 69 17 118/64 94 11/20/17 06:00 11/20/17 06:00 11/20/17 06:00 11/20/17 06:00 11/20/17 06:00 Oxygen Flow Rate (L/min) 2 Oxygen Delivery Method Nasal Cannula Weight: 199 lb 1.239 oz Body Mass Index (BMI) 32.4 Intake and Output for Last 24 Hours 11/18/17 11/19/17 11/20/17 23:59 23:59 23:59 Intake Total 4200.8 / 4200.8 1162 / 1162 80 / 80 Output Total 3800 / 3800 1000 / 1000 0 / 0 Balance 400.8 / 400.8 162 / 162 80 / 80 Labs (Last 48 Hours) 11/18/17 11/18/17 11/18/17 06:25 06:25 06:48 WBC 4.8 RBC 3.76 L Hgb 11.2 L Hct 36.3 L MCV 96.5 MCH 29.8 MCHC 30.9 L RDW 21.5 H RDW Differential 71.9 H Plt Count 119 L MPV 9.6 Immature Gran % (Auto) Neut % (Auto) Lymph % (Auto) [place] % (Auto) Eos % (Auto) Baso % (Auto) Absolute Neuts (auto) Absolute Lymphs (auto) Total Counted Differential Comment Platelet Estimate Polychromasia Anisocytosis Macrocytosis Tear Drop Cells Schistocytes Specimen Type Sample Site pH Bicarbonate Actual POC Total CO2 Base Excess O2 Saturation ABG pCO2 ABG pO2 O2 Delivery Device Liter Flow Blood Gas Notified Whom Blood Gas Notified Time Sodium 132 L Potassium 4.6 Chloride 95 L Carbon Dioxide 29.0 Anion Gap 8 BUN 36 H Creatinine 2.70 H Estim Creat Clear Calc 16.45 Est GFR (MDRD) Af Amer 22 L Est GFR (MDRD) Non-Af 18 L BUN/Creatinine Ratio 13.3 Glucose 142 H Hemoglobin A1c Calcium 8.5 Phosphorus Magnesium Total Bilirubin AST ALT Alkaline Phosphatase Troponin I Total Protein Albumin Globulin Albumin/Globulin Ratio Triglycerides 74 Cholesterol 73 LDL Cholesterol 22 VLDL Cholesterol 15 HDL Cholesterol 36 L MRSA (PCR) POC Glucose 137 H 11/18/17 11/18/17 11/18/17 11:05 12:00 14:10 WBC RBC Hgb Hct MCV MCH MCHC RDW RDW Differential Plt Count MPV Immature Gran % (Auto) Neut % (Auto) Lymph % (Auto) [place] % (Auto) Eos % (Auto) Baso % (Auto) Absolute Neuts (auto) Absolute Lymphs (auto) Total Counted Differential Comment Platelet Estimate Polychromasia Anisocytosis Macrocytosis Tear Drop Cells Schistocytes Specimen Type Sample Site pH Bicarbonate Actual POC Total CO2 Base Excess O2 Saturation ABG pCO2 ABG pO2 O2 Delivery Device Liter Flow Blood Gas Notified Whom Blood Gas Notified Time Sodium Potassium Chloride Carbon Dioxide Anion Gap BUN Creatinine Estim Creat Clear Calc Est GFR (MDRD) Af Amer Est GFR (MDRD) Non-Af BUN/Creatinine Ratio Glucose Hemoglobin A1c Calcium Phosphorus Magnesium Total Bilirubin AST ALT Alkaline Phosphatase Troponin I 0.063 H Total Protein Albumin Globulin Albumin/Globulin Ratio Triglycerides Cholesterol LDL Cholesterol VLDL Cholesterol HDL Cholesterol MRSA (PCR) Negative POC Glucose 201 H 11/18/17 11/18/17 11/18/17 14:40 15:00 16:06 WBC RBC Hgb Hct MCV MCH MCHC RDW RDW Differential Plt Count MPV Immature Gran % (Auto) Neut % (Auto) Lymph % (Auto) [place] % (Auto) Eos % (Auto) Baso % (Auto) Absolute Neuts (auto) Absolute Lymphs (auto) Total Counted Differential Comment Platelet Estimate Polychromasia Anisocytosis Macrocytosis Tear Drop Cells Schistocytes Specimen Type ART Sample Site R Brachial pH 7.40 Bicarbonate Actual 26.5 H POC Total CO2 28 Base Excess 2 O2 Saturation 95 ABG pCO2 43.0 ABG pO2 78 O2 Delivery Device Nasal Can Liter Flow 3.0 Blood Gas Notified Whom [facility] Blood Gas Notified Time 1500 Sodium Potassium Chloride Carbon Dioxide Anion Gap BUN Creatinine Estim Creat Clear Calc Est GFR (MDRD) Af Amer Est GFR (MDRD) Non-Af BUN/Creatinine Ratio Glucose Hemoglobin A1c Calcium Phosphorus Magnesium Total Bilirubin AST ALT Alkaline Phosphatase Troponin I 0.050 H Total Protein Albumin Globulin Albumin/Globulin Ratio Triglycerides Cholesterol LDL Cholesterol VLDL Cholesterol HDL Cholesterol MRSA (PCR) POC Glucose 183 H 11/18/17 11/18/17 11/18/17 17:55 17:55 18:15 WBC 5.6 RBC 3.97 L Hgb 11.5 L Hct 38.8 MCV 97.7 MCH 29.0 MCHC 29.6 L RDW 21.1 H RDW Differential 72.8 H Plt Count 130 L MPV 9.8 Immature Gran % (Auto) 0.200 Neut % (Auto) 74.4 H Lymph % (Auto) 14.7 L Y[place] % (Auto) 6.7 Eos % (Auto) 3.6 Baso % (Auto) 0.4 Absolute Neuts (auto) 4.1 Absolute Lymphs (auto) 0.82 L Total Counted Not Reportable Differential Comment SCANNED Platelet Estimate ADEQUATE Polychromasia RARE Anisocytosis 3+ Macrocytosis 1+ Tear Drop Cells RARE Schistocytes RARE Specimen Type Sample Site pH Bicarbonate Actual POC Total CO2 Base Excess O2 Saturation ABG pCO2 ABG pO2 O2 Delivery Device Liter Flow Blood Gas Notified Whom Blood Gas Notified Time Sodium 140 Potassium 4.1 Chloride 109 H Carbon Dioxide 21.0 Anion Gap 10 BUN 32 H Creatinine 2.24 H Estim Creat Clear Calc 19.83 Est GFR (MDRD) Af Amer 27 L Est GFR (MDRD) Non-Af 23 L BUN/Creatinine Ratio 14.3 Glucose 152 H Hemoglobin A1c Calcium 6.1 L* Phosphorus 4.7 Magnesium 1.2 L Total Bilirubin 0.70 AST 14 L ALT 9 L Alkaline Phosphatase 79 Troponin I 0.043 Total Protein 4.7 L Albumin 1.9 L Globulin 2.8 Albumin/Globulin Ratio 0.7 L Triglycerides Cholesterol LDL Cholesterol VLDL Cholesterol HDL Cholesterol MRSA (PCR) POC Glucose 11/18/17 11/19/17 11/19/17 21:54 04:10 04:10 WBC 7.4 RBC 3.94 L Hgb 11.8 L Hct 38.3 MCV 97.2 MCH 29.9 MCHC 30.8 L RDW 21.4 H RDW Differential 70.8 H Plt Count 191 MPV 10.2 Immature Gran % (Auto) 0.500 Neut % (Auto) 69.0 Lymph % (Auto) 21.3 [place] % (Auto) 7.2 Eos % (Auto) 1.5 Baso % (Auto) 0.5 Absolute Neuts (auto) 5.1 Absolute Lymphs (auto) 1.58 Total Counted Not Reportable Differential Comment SCANNED Platelet Estimate Polychromasia Anisocytosis 2+ Macrocytosis Tear Drop Cells Schistocytes Specimen Type Sample Site pH Bicarbonate Actual POC Total CO2 Base Excess O2 Saturation ABG pCO2 ABG pO2 O2 Delivery Device Liter Flow Blood Gas Notified Whom Blood Gas Notified Time Sodium 134 L Potassium 5.8 H Chloride 96 L Carbon Dioxide 26.0 Anion Gap 12 BUN 44 H Creatinine 3.40 H Estim Creat Clear Calc 13.06 Est GFR (MDRD) Af Amer 17 L Est GFR (MDRD) Non-Af 14 L BUN/Creatinine Ratio 12.9 Glucose 229 H Hemoglobin A1c Calcium 8.4 L Phosphorus 7.5 H Magnesium Total Bilirubin AST ALT Alkaline Phosphatase Troponin I Total Protein Albumin Globulin Albumin/Globulin Ratio Triglycerides Cholesterol LDL Cholesterol VLDL Cholesterol HDL Cholesterol MRSA (PCR) POC Glucose 222 H 11/19/17 11/19/17 11/19/17 04:10 07:32 11:53 WBC RBC Hgb Hct MCV MCH MCHC RDW RDW Differential Plt Count MPV Immature Gran % (Auto) Neut % (Auto) Lymph % (Auto) [place] % (Auto) Eos % (Auto) Baso % (Auto) Absolute Neuts (auto) Absolute Lymphs (auto) Total Counted Differential Comment Platelet Estimate Polychromasia Anisocytosis Macrocytosis Tear Drop Cells Schistocytes Specimen Type Sample Site pH Bicarbonate Actual POC Total CO2 Base Excess O2 Saturation ABG pCO2 ABG pO2 O2 Delivery Device Liter Flow Blood Gas Notified Whom Blood Gas Notified Time Sodium Potassium Chloride Carbon Dioxide Anion Gap BUN Creatinine Estim Creat Clear Calc Est GFR (MDRD) Af Amer Est GFR (MDRD) Non-Af BUN/Creatinine Ratio Glucose Hemoglobin A1c Calcium Phosphorus Magnesium 2.9 H Total Bilirubin AST ALT Alkaline Phosphatase Troponin I Total Protein Albumin Globulin Albumin/Globulin Ratio Triglycerides Cholesterol LDL Cholesterol VLDL Cholesterol HDL Cholesterol MRSA (PCR) POC Glucose 210 H 140 H 11/19/17 11/19/17 11/20/17 17:35 21:42 04:10 WBC RBC Hgb Hct MCV MCH MCHC RDW RDW Differential Plt Count MPV Immature Gran % (Auto) Neut % (Auto) Lymph % (Auto) [place] % (Auto) Eos % (Auto) Baso % (Auto) Absolute Neuts (auto) Absolute Lymphs (auto) Total Counted Differential Comment Platelet Estimate Polychromasia Anisocytosis Macrocytosis Tear Drop Cells Schistocytes Specimen Type Sample Site pH Bicarbonate Actual POC Total CO2 Base Excess O2 Saturation ABG pCO2 ABG pO2 O2 Delivery Device Liter Flow Blood Gas Notified Whom Blood Gas Notified Time Sodium Potassium Chloride Carbon Dioxide Anion Gap BUN Creatinine Estim Creat Clear Calc Est GFR (MDRD) Af Amer Est GFR (MDRD) Non-Af BUN/Creatinine Ratio Glucose Hemoglobin A1c Pending Calcium Phosphorus Magnesium Total Bilirubin AST ALT Alkaline Phosphatase Troponin I Total Protein Albumin Globulin Albumin/Globulin Ratio Triglycerides Cholesterol LDL Cholesterol VLDL Cholesterol HDL Cholesterol MRSA (PCR) POC Glucose 124 H 177 H Clinical Impression(s) from Imaging Studies Chest X-Ray 11/17/17 15:17 IMPRESSION: No acute findings Electronically Signed: Jason Danielle DO at 15:36 EDT Tel , Service support , Abdomen/Pelvis CT 11/17/17 15:21 IMPRESSION: [id number] ascites in all quadrants. 1.9 cm low-attenuation mass in the central liver, axial image 37. Suggest further evaluation perhaps with contrast MRI, and consider biopsy. Severe renal atrophy. Cannot occluded segments of bowel wall thickening. Electronically Signed: Ramos Morales MD at 17:08 EDT , Service support , Chest CTA 11/17/17 15:21 IMPRESSION: 1. No evidence of pulmonary embolism or thoracic aortic dissection 2. Stable scarring in both lung bases without acute airspace disease Electronically Signed: Jason Danielle DO at 17:09 EDT Tel , Service support , Chest X-Ray 11/18/17 19:56 IMPRESSION: Moderate to severe cardiomegaly. No definite acute chest disease. Electronically Signed: Ramos Morales MD at 19:29 EDT , Service support , Liver Ultrasound 11/19/17 08:22 IMPRESSION: 2.3 cm echogenic mass in the right hepatic lobe. Ascites. Electronically Signed: Ramos Morales MD at 19:35 EDT , Service support , Medical Necessity - Tobacco Use Smoking Status: Former smoker Tobacco Use: Non-smoker Assessment/Plan All Active Problems (Last Reviewed 08/21/17 @ 14:33 by Pat Gomez) Hypotension (Acute) Fall (Acute) Gait instability (Acute) Pain in right ankle and joints of right foot (Acute) Ileus (Acute) Unstable angina pectoris (Acute) NSTEMI (non-ST elevated myocardial infarction) (Acute) Hyperkalemia (Acute) Chest pressure (Acute) RECOMMENDATIONS: 1. Continue hemodialysis per nephrology recommendations. 2. Slow reintroduction of beta-morelia/antihypertensives, per cardiology recommendations. Per the patient's family, she was noncompliant with the use of the aforementioned medications at home. 3. Continue fentanyl for pain control for now 4. Additional imaging/workup of the hepatic lesion noted on CT abdomen/pelvis and liver ultrasound. 5. Wean supplemental oxygen to maintain saturations at or above 90%. 6. Encourage incentive spirometer use and mobilize patient as tolerated. IMPRESSIONS: 1. Combined shock Likely multifactorial in etiology with cardiac, hypovolemia and polypharmacy contributing. The patient's hemodynamics have stabilized with the use of Levophed and she was able to be weaned from vasopressor support on the afternoon of November 19. She has remained hemodynamically stable since that time. Continue hemodialysis per nephrology recommendations. Avoid overzealous fluid removal. Recommend slow reintroduction of beta-morelia/home antihypertensives, as the patient did endorse noncompliance with their use. 2. Acute hypoxic respiratory insufficiency Likely secondary to decompensated heart failure in the setting of dietary indiscretions. Continue hemodialysis per nephrology recommendations. Wean supplemental oxygen to maintain saturations at or above 90%. Encourage incentive spirometer use and mobilize patient as tolerated. 3. Non-ST elevation myocardial infarction/coronary artery disease Continue medical management per cardiology recommendations. 4. Undifferentiated abdominal pain The patient has undifferentiated abdominal pain, which appears to be an acute issue for her. CT abdomen/pelvis obtained on presentation was limited due to his lack of IV/p.o. contrast. Liver ultrasound did reveal a hepatic lesion. Therefore, we will plan to proceed with obtaining an MRI for further characterization. Continue fentanyl for pain control for now. 5. Neuropathy/obesity/hyperlipidemia/GERD/hypertension/diabetes Complicates care, management, recovery and prognosis. Continue Lantus and sliding scale insulin coverage. The patient will require physical therapy evaluation. Antihypertensives are currently on hold. This note was generated with [employer] dictation software. It may contain incorrect words, spelling, and punctuation that were not noted in checking the note before signing. DISPOSITION: The patient is medically stable for transfer out of the intensive care unit. Given the lack of ongoing ICU/pulmonary needs, will sign off. Please call with any additional questions. Code Visit Inpatient E&M: [id number] [facility] L3
--- NOTE | 2017-11-20 08:10 | MRI_ITS ---
STUDY: MRI ABDOMEN WITHOUT CONTRAST REASON FOR EXAM: Female, 72 years old. Liver mass. TECHNIQUE: Standardized fat and water weighted pulse sequences were obtained in all 3 orthogonal planes. COMPARISON: Ultrasound liver 11/19/2017. CTA chest 11/17/2017. CT abdomen and pelvis 11/17/2017. CT abdomen angiogram 07/27/2017. CT abdomen and pelvis 06/29/2014 and 06/08/2014. FINDINGS: Small to moderate ascites. Body wall edema consistent with anasarca. Small bilateral layering pleural effusions. Minimal pericardial effusion. Cardiomegaly. Hepatomegaly. Within segment 6 of the liver, there is an oval sharply and smoothly circumscribed homogeneously T2 hyperintense focus with a maximum dimension of approximately 1.65 cm, T1 hypointense. Concordant with the low attenuation focus seen on CT scan of 07/27/2017 and 11/17/2017. Also consistent with a low-attenuation focus in the same location of the liver on CT imaging of 06/29/2014. This has diminished in size since 2014. On the study of 2014 the maximum dimension was 2.2 cm. Consistent with benignity. The combined ultrasound (echogenic), CT and MRI features are most consistent with a benign hemangioma. Gallbladder absent. Nondilated biliary tree. Unremarkable pancreas. Mildly enlarged spleen. Craniocaudal 13.2 cm. No acute gastric, small bowel or large bowel abnormality is evident in limited evaluation. MRI/Abdomen without Contrast IMPRESSION: The liver lesion is most consistent with a benign hemangioma. Hepatosplenomegaly. Ascites. Pleural effusions and pericardial effusion. Electronically Signed: Diogo Rosen, at 12:58 EDT Tel , Service support ,
[2017-11-20] MEDS: Aspirin E.C. 81 MG Tablet PO (08:12)
[2017-11-20] MEDS: Calcium Acetate 667 MG Capsule PO ×3 (08:12→16:56)
[2017-11-20 08:15] LABS: Bedside Glucose 128 mg/dL (70-110)
[2017-11-20 08:22] LABS: Hemoglobin A1c 7.3 % (4.2-6.3)
--- NOTE | 2017-11-20 08:41 | PCM.PN.HOSP ---
Patient Problems: Active and Suspected Problems (Last Reviewed 08/21/17 @ 14:33 by Pat Gomez) Hypotension (Acute) Subjective: Patient was seen and examined. She has been off the Levophed drip since 3 PM yesterday. She admits to not taking her medications since August 2017. She cannot give me any reason why she has not been taking her medication. She also admits to eating jars of salted green olives daily. Denies chest pain no dizziness or palpitations. Her telemetry shows atrial flutter, rate controlled. Vitals/I&O's: Vital Signs Temp Pulse Resp BP Pulse Ox 97.1 F L 73 14 143/57 H 93 11/20/17 08:00 11/20/17 08:00 11/20/17 08:00 11/20/17 08:00 11/20/17 08:00 Oxygen Flow Rate (L/min) 2 Oxygen Delivery Method Room Air Weight: 90.3 kg Body Mass Index (BMI) 32.4 Intake and Output for Last 24 Hours 11/18/17 11/19/17 11/20/17 23:59 23:59 23:59 Intake Total 4200.8 / 4200.8 1162 / 1162 80 / 80 Output Total 3800 / 3800 1000 / 1000 0 / 0 Balance 400.8 / 400.8 162 / 162 80 / 80 General: Alert, Oriented x3, Cooperative, No apparent distress HEENT: Atraumatic, PERRLA, EOMI, Normocephalic Oral: Dry Mucosa Neck: Supple, - - Right neck JVD Lungs: Normal air movement, Diminished, Rales - bilateral lung bases Cardiovascular: Regular rate, Regular Rhythm, Normal S1, Normal S2, No murmurs Abdomen: Bowel Sounds Present, Soft, Non Tender, Non-Distended, No Hepato-splenomegaly Extremities: Edema - +2-3 non-pitting pedal edema Skin: No rashes Musculoskeletal: No Tenderness to Palpation of Joints or Extremities Neurological: Cranial nerves II-XII grossly intact, Neuro grossly intact Psych/Mental Status: Normal Affect, Appropriate Laboratory Results 11/19/17 11:53: POC Glucose 140 H 11/19/17 17:35: POC Glucose 124 H 11/19/17 21:42: POC Glucose 177 H 11/20/17 04:10: Hemoglobin A1c 7.3 H 11/20/17 07:45: Sodium Pending, Potassium Pending, Chloride Pending, Carbon Dioxide Pending, Anion Gap Pending, BUN Pending, Creatinine Pending, Est GFR (MDRD) Af Amer Pending, Est GFR (MDRD) Non-Af Pending, BUN/Creatinine Ratio Pending, Glucose Pending, Calcium Pending 11/20/17 08:09: POC Glucose 128 H Current Medications Acetaminophen (Tylenol) 1,000 mg PO TID [facility] Last Admin: 11/20/17 05:58 Dose: 1,000 mg Aspirin (Ecotrin) 81 mg PO DAILYCM [facility] Last Admin: 11/20/17 08:12 Dose: 81 mg Atorvastatin Calcium (Lipitor) 40 mg PO QHS [facility] Last Admin: 11/19/17 21:50 Dose: 40 mg Bisacodyl (Dulcolax) 5 mg PO DAILY PRN PRN PRN Reason: Constipation Calcium Acetate (Phoslo Gel Cap) 667 mg PO TIDCM [facility] Last Admin: 11/20/17 08:12 Dose: 667 mg Cholecalciferol (Vitamin D) 5,000 unit PO MOWEFR [facility] Last Admin: 11/19/17 14:50 Dose: 5,000 unit Clopidogrel Bisulfate (Plavix) 75 mg PO DAILY [facility] Last Admin: 11/19/17 14:47 Dose: 75 mg Cyclobenzaprine HCl (Cyclobenzaprine Hcl) 5 mg PO BID PRN PRN PRN Reason: SPASMS Last Admin: 11/19/17 14:51 Dose: 5 mg Dextrose (D50w Syringe) 0 gm IV X1 PRN; Protocol PRN Reason: Hypoglycemia Docusate Sodium (Colace) 100 mg PO DAILY [facility] Last Admin: 11/19/17 14:47 Dose: 100 mg Fentanyl Citrate (Sublimaze (100mcg Ampule)) 50 mcg IV Q2H PRN PRN PRN Reason: PAIN Last Admin: 11/20/17 05:57 Dose: 50 mcg Glucagon () 1 mg IM .X1 PRN PRN Reason: Hypoglycemia Heparin Sodium (Porcine) (Heparin Na) 5,000 unit SC Q12 [facility] Last Admin: 11/19/17 21:46 Dose: 5,000 units Norepinephrine Bitartrate 8 mg (/ Dextrose) 258 mls @ 9.67 mls/hr IV .[id number] [facility] PRN Reason: 5 MCG/MIN Last Admin: 11/20/17 00:28 Dose: Not Given Insulin Glargine (Lantus (Bk)) 22 units SC QHS [facility] Last Admin: 11/19/17 21:49 Dose: 22 units Insulin Human Lispro (Humalog Kwikpen ([facility])) 0 unit SQ ACHS [facility] PRN Reason: Protocol Last Admin: 11/20/17 08:12 Dose: Not Given Isosorbide Mononitrate (Imdur) 60 mg PO BID [facility] Last Admin: 11/19/17 21:49 Dose: 60 mg Magnesium Hydroxide (Milk Of Magnesia) 30 ml PO DAILY PRN PRN Reason: Constipation Multivit/Ca Carb/B Cmplx/FA/Prenat (Nephrocaps, Renaphro) 1 capsule PO DAILY [facility] Last Admin: 11/19/17 14:52 Dose: 1 capsule Nutritional Formula (Nepro Carb Steady) 120 ml PO 4X/DAY [facility] Last Admin: 11/19/17 21:50 Dose: 120 ml Ondansetron HCl (Zofran) 4 mg IV Q8H PRN PRN PRN Reason: NAUSEA Last Admin: 11/18/17 18:23 Dose: 4 mg Pantoprazole Sodium (Protonix) 40 mg PO DAILY [facility] Last Admin: 11/19/17 14:48 Dose: 40 mg Psyllium Hydrophilic Mucilloid (Metamucil) 1 packet PO DAILY PRN PRN PRN Reason: CONSTIPATION Sodium Chloride () 5 - 30 ml IV UD PRN PRN Reason: SALINE FLUSH Last Admin: 11/20/17 05:58 Dose: 30 ml Medical Necessity - Tobacco Use Smoking Status: Former smoker Tobacco Use: Non-smoker Assessment/Plan All Active Problems (Last Reviewed 08/21/17 @ 14:33 by Pat Gomez) Hypotension (Acute) Fall (Acute) Gait instability (Acute) Pain in right ankle and joints of right foot (Acute) Ileus (Acute) Unstable angina pectoris (Acute) NSTEMI (non-ST elevated myocardial infarction) (Acute) Hyperkalemia (Acute) Chest pressure (Acute) 72 year old F with past medical history of ESRD on hemodialysis admitted on with complaints of shortness of breath that was worse since yesterday. She is a M-W-F dialysis patient of Dr. Crawley. She sustained fracture of the right foot in Jun 2017 and has been wearing a walking boot. She admits that she has gained about 30 pounds over the last 3 weeks. She describes abdominal distention and discomfort ongoing for weeks. 1. Shock likely hypovolemic versus cardiac, secondary to fluid removal from dialysis last night and blood pressure medication and pain medication side effect, patient had not been taking her home medications, off Levophed, pressures have been around 140 systolic, will continue to monitor of blood pressure pills. Transfer out of ICU to PCU, would resume rate control meds, maybe Cardizem if needed and continue to monitor blood pressures. 2. Atrial flutter, rate controlled, not on anticoagulation, cardiology following, will defer to their recommendations. 3. Acute NSTEMI secondary to demand ischemia, on aspirin, plavix, statin, will resume beta blockers when blood pressures get better. 4. Acute on chronic respiratory failure, on 3L home oxygen, secondary to fluid overload in a patient with history of ESRD on hemodialysis, Patient is on home oxygen, dialysed yesterday, less likely due to acute CHF exacerbation, 2D-ECHO shows EF 55%, stage 3 daistolic dysfunctiom, Severe +4 TR insufficiency. Will continue to monitor oxyen levels, encourage use of incentive spirometer. 5. Valvular heart disease, severe TR +4, cardiology following. 6. Liver mass, 1.9cm poorly attenuated mass seen on CT scan of abd/liver, liver ultrasound shows 2.3cm echgenic mass in right hepatic lobe, will get MRI of liver 7. Type 2 DM, Hb A1c 7.3, sugars are controlled, continue on Lantus, accucheks and ISS. 8. Hypothyroidism, continue on levothyroxine 9. Hyperkalemia, had dialysis yesterday, labs in am. 10. Right foot pain, h/o 5th metatarsal fracture with forefoot deformity, osteopenia, on tylenol 1000mg po tid, continue with fentanyl prn. 11. DVT prophylaxis with heparin subcu 12. Code status: Full code Code Visit Inpatient E&M: 44495 [facility] L3
--- NOTE | 2017-11-20 08:42 | PCM.PN.HOSP ---
Patient Problems: Active and Suspected Problems (Last Reviewed 08/21/17 @ 14:33 by Pat Goemz) Hypotension (Acute) Vitals/I&O's: Vital Signs Temp Pulse Resp BP Pulse Ox 97.1 F L 73 14 143/57 H 93 11/20/17 08:00 11/20/17 08:00 11/20/17 08:00 11/20/17 08:00 11/20/17 08:00 Oxygen Flow Rate (L/min) 2 Oxygen Delivery Method Room Air Weight: 90.3 kg Body Mass Index (BMI) 32.4 Intake and Output for Last 24 Hours 11/18/17 11/19/17 11/20/17 23:59 23:59 23:59 Intake Total 4200.8 / 4200.8 1162 / 1162 80 / 80 Output Total 3800 / 3800 1000 / 1000 0 / 0 Balance 400.8 / 400.8 162 / 162 80 / 80 Laboratory Results 11/19/17 11:53: POC Glucose 140 H 11/19/17 17:35: POC Glucose 124 H 11/19/17 21:42: POC Glucose 177 H 11/20/17 04:10: Hemoglobin A1c 7.3 H 11/20/17 07:45: Sodium Pending, Potassium Pending, Chloride Pending, Carbon Dioxide Pending, Anion Gap Pending, BUN Pending, Creatinine Pending, Est GFR (MDRD) Af Amer Pending, Est GFR (MDRD) Non-Af Pending, BUN/Creatinine Ratio Pending, Glucose Pending, Calcium Pending 11/20/17 08:09: POC Glucose 128 H Current Medications Acetaminophen (Tylenol) 1,000 mg PO TID [facility] Last Admin: 11/20/17 05:58 Dose: 1,000 mg Aspirin (Ecotrin) 81 mg PO DAILYCM [facility] Last Admin: 11/20/17 08:12 Dose: 81 mg Atorvastatin Calcium (Lipitor) 40 mg PO QHS [facility] Last Admin: 11/19/17 21:50 Dose: 40 mg Bisacodyl (Dulcolax) 5 mg PO DAILY PRN PRN PRN Reason: Constipation Calcium Acetate (Phoslo Gel Cap) 667 mg PO TIDCM [facility] Last Admin: 11/20/17 08:12 Dose: 667 mg Cholecalciferol (Vitamin D) 5,000 unit PO MOWEFR [facility] Last Admin: 11/19/17 14:50 Dose: 5,000 unit Clopidogrel Bisulfate (Plavix) 75 mg PO DAILY [facility] Last Admin: 11/19/17 14:47 Dose: 75 mg Cyclobenzaprine HCl (Cyclobenzaprine Hcl) 5 mg PO BID PRN PRN PRN Reason: SPASMS Last Admin: 11/19/17 14:51 Dose: 5 mg Dextrose (D50w Syringe) 0 gm IV X1 PRN; Protocol PRN Reason: Hypoglycemia Docusate Sodium (Colace) 100 mg PO DAILY [facility] Last Admin: 11/19/17 14:47 Dose: 100 mg Fentanyl Citrate (Sublimaze (100mcg Ampule)) 50 mcg IV Q2H PRN PRN PRN Reason: PAIN Last Admin: 11/20/17 05:57 Dose: 50 mcg Glucagon () 1 mg IM .X1 PRN PRN Reason: Hypoglycemia Heparin Sodium (Porcine) (Heparin Na) 5,000 unit SC Q12 [facility] Last Admin: 11/19/17 21:46 Dose: 5,000 units Norepinephrine Bitartrate 8 mg (/ Dextrose) 258 mls @ 9.67 mls/hr IV .[id number] [facility] PRN Reason: 5 MCG/MIN Last Admin: 11/20/17 00:28 Dose: Not Given Insulin Glargine (Lantus (Bkc)) 22 units SC QHS [facility] Last Admin: 11/19/17 21:49 Dose: 22 units Insulin Human Lispro (Humalog Kwikpen (Bkc)) 0 unit SQ ACHS [facility] PRN Reason: Protocol Last Admin: 11/20/17 08:12 Dose: Not Given Isosorbide Mononitrate (Imdur) 60 mg PO BID [facility] Last Admin: 11/19/17 21:49 Dose: 60 mg Magnesium Hydroxide (Milk Of Magnesia) 30 ml PO DAILY PRN PRN Reason: Constipation Multivit/Ca Carb/B Cmplx/FA/Prenat (Nephrocaps, Renaphro) 1 capsule PO DAILY [facility] Last Admin: 11/19/17 14:52 Dose: 1 capsule Nutritional Formula (Nepro Carb Steady) 120 ml PO 4X/DAY [facility] Last Admin: 11/19/17 21:50 Dose: 120 ml Ondansetron HCl (Zofran) 4 mg IV Q8H PRN PRN PRN Reason: NAUSEA Last Admin: 11/18/17 18:23 Dose: 4 mg Pantoprazole Sodium (Protonix) 40 mg PO DAILY [facility] Last Admin: 11/19/17 14:48 Dose: 40 mg Psyllium Hydrophilic Mucilloid (Metamucil) 1 packet PO DAILY PRN PRN PRN Reason: CONSTIPATION Sodium Chloride () 5 - 30 ml IV UD PRN PRN Reason: SALINE FLUSH Last Admin: 11/20/17 05:58 Dose: 30 ml Medical Necessity - Tobacco Use Smoking Status: Former smoker Tobacco Use: Non-smoker Assessment/Plan All Active Problems (Last Reviewed 08/21/17 @ 14:33 by Pat Gomez) Hypotension (Acute) Fall (Acute) Gait instability (Acute) Pain in right ankle and joints of right foot (Acute) Ileus (Acute) Unstable angina pectoris (Acute) NSTEMI (non-ST elevated myocardial infarction) (Acute) Hyperkalemia (Acute) Chest pressure (Acute)
[2017-11-20 08:44] LABS: Anion Gap 11 (5-15); BUN 29 mg/dL (7-18); BUN/Creat Ratio 9.7 RATIO (10-20); Calcium,Total 8.6 mg/dL (8.5-10.1); Chloride 93 mmol/L (98-107); EST Glomerular Filtration Rate 16 mL/min (>60); Est Glom Filt Rate - Afr Amer 20 mL/min (>60); Glucose 140 mg/dL (74-106); Potassium 4.4 mmol/L (3.5-5.1); Sodium Level 131 mmol/L (136-145)
--- NOTE | 2017-11-20 08:48 | PN_ITS ---
Patient Problems: Active and Suspected Problems (Last Reviewed 08/21/17 @ 14:33 by Pat Gomez) Hypotension (Acute) Vitals/I&O's: Vital Signs Temp Pulse Resp BP Pulse Ox 97.1 F L 73 14 143/57 H 93 11/20/17 08:00 11/20/17 08:00 11/20/17 08:00 11/20/17 08:00 11/20/17 08:00 Oxygen Flow Rate (L/min) 2 Oxygen Delivery Method Room Air Weight: 90.3 kg Body Mass Index (BMI) 32.4 Intake and Output for Last 24 Hours 11/18/17 11/19/17 11/20/17 23:59 23:59 23:59 Intake Total 4200.8 / 4200.8 1162 / 1162 80 / 80 Output Total 3800 / 3800 1000 / 1000 0 / 0 Balance 400.8 / 400.8 162 / 162 80 / 80 Laboratory Results 11/19/17 11:53: POC Glucose 140 H 11/19/17 17:35: POC Glucose 124 H 11/19/17 21:42: POC Glucose 177 H 11/20/17 04:10: Hemoglobin A1c 7.3 H 11/20/17 07:45: Sodium Pending, Potassium Pending, Chloride Pending, Carbon Dioxide Pending, Anion Gap Pending, BUN Pending, Creatinine Pending, Est GFR ( MDRD) Af Amer Pending, Est GFR (MDRD) Non-Af Pending, BUN/Creatinine Ratio Pending, Glucose Pending, Calcium Pending 11/20/17 08:09: POC Glucose 128 H Current Medications Acetaminophen (Tylenol) 1,000 mg PO TID [facility] Last Admin: 11/20/17 05:58 Dose: 1,000 mg Aspirin (Ecotrin) 81 mg PO DAILYCM [facility] Last Admin: 11/20/17 08:12 Dose: 81 mg Atorvastatin Calcium (Lipitor) 40 mg PO QHS [facility] Last Admin: 11/19/17 21:50 Dose: 40 mg Bisacodyl (Dulcolax) 5 mg PO DAILY PRN PRN PRN Reason: Constipation Calcium Acetate (Phoslo Gel Cap) 667 mg PO TIDCM [facility] Last Admin: 11/20/17 08:12 Dose: 667 mg Cholecalciferol (Vitamin D) 5,000 unit PO MOWEFR [facility] Last Admin: 11/19/17 14:50 Dose: 5,000 unit Clopidogrel Bisulfate (Plavix) 75 mg PO DAILY [facility] Last Admin: 11/19/17 14:47 Dose: 75 mg Cyclobenzaprine HCl (Cyclobenzaprine Hcl) 5 mg PO BID PRN PRN PRN Reason: SPASMS Last Admin: 11/19/17 14:51 Dose: 5 mg Dextrose (D50w Syringe) 0 gm IV X1 PRN; Protocol PRN Reason: Hypoglycemia Docusate Sodium (Colace) 100 mg PO DAILY [facility] Last Admin: 11/19/17 14:47 Dose: 100 mg Fentanyl Citrate (Sublimaze (100mcg Ampule)) 50 mcg IV Q2H PRN PRN PRN Reason: PAIN Last Admin: 11/20/17 05:57 Dose: 50 mcg Glucagon () 1 mg IM .X1 PRN PRN Reason: Hypoglycemia Heparin Sodium (Porcine) (Heparin Na) 5,000 unit SC Q12 [facility] Last Admin: 11/19/17 21:46 Dose: 5,000 units Norepinephrine Bitartrate 8 mg (/ Dextrose) 258 mls @ 9.67 mls/hr IV .[id number] [facility] PRN Reason: 5 MCG/MIN Last Admin: 11/20/17 00:28 Dose: Not Given Insulin Glargine (Lantus (Bkc)) 22 units SC QHS [facility] Last Admin: 11/19/17 21:49 Dose: 22 units Insulin Human Lispro (Humalog Kwikpen (Bkc)) 0 unit SQ ACHS [facility] PRN Reason: Protocol Last Admin: 11/20/17 08:12 Dose: Not Given Isosorbide Mononitrate (Imdur) 60 mg PO BID [facility] Last Admin: 11/19/17 21:49 Dose: 60 mg Magnesium Hydroxide (Milk Of Magnesia) 30 ml PO DAILY PRN PRN Reason: Constipation Multivit/Ca Carb/B Cmplx/FA/Prenat (Nephrocaps, Renaphro) 1 capsule PO DAILY [facility] Last Admin: 11/19/17 14:52 Dose: 1 capsule Nutritional Formula (Nepro Carb Steady) 120 ml PO 4X/DAY [facility] Last Admin: 11/19/17 21:50 Dose: 120 ml Ondansetron HCl (Zofran) 4 mg IV Q8H PRN PRN PRN Reason: NAUSEA Last Admin: 11/18/17 18:23 Dose: 4 mg Pantoprazole Sodium (Protonix) 40 mg PO DAILY [facility] Last Admin: 11/19/17 14:48 Dose: 40 mg Psyllium Hydrophilic Mucilloid (Metamucil) 1 packet PO DAILY PRN PRN PRN Reason: CONSTIPATION Sodium Chloride () 5 - 30 ml IV UD PRN PRN Reason: SALINE FLUSH Last Admin: 11/20/17 05:58 Dose: 30 ml Medical Necessity - Tobacco Use Smoking Status: Former smoker Tobacco Use: Non-smoker Assessment/Plan All Active Problems (Last Reviewed 08/21/17 @ 14:33 by Pat Gomez) Hypotension (Acute) Fall (Acute) Gait instability (Acute) Pain in right ankle and joints of right foot (Acute) Ileus (Acute) Unstable angina pectoris (Acute) NSTEMI (non-ST elevated myocardial infarction) (Acute) Hyperkalemia (Acute) Chest pressure (Acute)
--- NOTE | 2017-11-20 08:55 | CASEMGMT ---
See RN CM Assessment Link. DC PLAN undetermined as pt remains in ICU. PT/OT was unable to work with pt yesterday. Goal: home with home health if pt is agreeable.Kyra SANTIAGON RN ACM
--- NOTE | 2017-11-20 09:01 | PN_ITS ---
Patient Problems: Active and Suspected Problems (Last Reviewed 08/21/17 @ 14:33 by Pat Gomez) Hypotension (Acute) Subjective: Patient was seen and examined. She has been off the Levophed drip since 3 PM yesterday. She admits to not taking her medications since August 2017. She cannot give me any reason why she has not been taking her medication. She also admits to eating jars of salted green olives daily. Denies chest pain no dizziness or palpitations. Her telemetry shows atrial flutter, rate controlled. Vitals/I&O's: Vital Signs Temp Pulse Resp BP Pulse Ox 97.1 F L 73 14 143/57 H 93 11/20/17 08:00 11/20/17 08:00 11/20/17 08:00 11/20/17 08:00 11/20/17 08:00 Oxygen Flow Rate (L/min) 2 Oxygen Delivery Method Room Air Weight: 90.3 kg Body Mass Index (BMI) 32.4 Intake and Output for Last 24 Hours 11/18/17 11/19/17 11/20/17 23:59 23:59 23:59 Intake Total 4200.8 / 4200.8 1162 / 1162 80 / 80 Output Total 3800 / 3800 1000 / 1000 0 / 0 Balance 400.8 / 400.8 162 / 162 80 / 80 General: Alert, Oriented x3, Cooperative, No apparent distress HEENT: Atraumatic, PERRLA, EOMI, Normocephalic Oral: Dry Mucosa Neck: Supple, - - Right neck JVD Lungs: Normal air movement, Diminished, Rales - bilateral lung bases Cardiovascular: Regular rate, Regular Rhythm, Normal S1, Normal S2, No murmurs Abdomen: Bowel Sounds Present, Soft, Non Tender, Non-Distended, No Hepato- splenomegaly Extremities: Edema - +2-3 non-pitting pedal edema Skin: No rashes Musculoskeletal: No Tenderness to Palpation of Joints or Extremities Neurological: Cranial nerves II-XII grossly intact, Neuro grossly intact Psych/Mental Status: Normal Affect, Appropriate Laboratory Results 11/19/17 11:53: POC Glucose 140 H 11/19/17 17:35: POC Glucose 124 H 11/19/17 21:42: POC Glucose 177 H 11/20/17 04:10: Hemoglobin A1c 7.3 H 11/20/17 07:45: Sodium Pending, Potassium Pending, Chloride Pending, Carbon Dioxide Pending, Anion Gap Pending, BUN Pending, Creatinine Pending, Est GFR ( MDRD) Af Amer Pending, Est GFR (MDRD) Non-Af Pending, BUN/Creatinine Ratio Pending, Glucose Pending, Calcium Pending 11/20/17 08:09: POC Glucose 128 H Current Medications Acetaminophen (Tylenol) 1,000 mg PO TID [facility] Last Admin: 11/20/17 05:58 Dose: 1,000 mg Aspirin (Ecotrin) 81 mg PO DAILYCM [facility] Last Admin: 11/20/17 08:12 Dose: 81 mg Atorvastatin Calcium (Lipitor) 40 mg PO QHS [facility] Last Admin: 11/19/17 21:50 Dose: 40 mg Bisacodyl (Dulcolax) 5 mg PO DAILY PRN PRN PRN Reason: Constipation Calcium Acetate (Phoslo Gel Cap) 667 mg PO TIDCM [facility] Last Admin: 11/20/17 08:12 Dose: 667 mg Cholecalciferol (Vitamin D) 5,000 unit PO MOWEFR [facility] Last Admin: 11/19/17 14:50 Dose: 5,000 unit Clopidogrel Bisulfate (Plavix) 75 mg PO DAILY [facility] Last Admin: 11/19/17 14:47 Dose: 75 mg Cyclobenzaprine HCl (Cyclobenzaprine Hcl) 5 mg PO BID PRN PRN PRN Reason: SPASMS Last Admin: 11/19/17 14:51 Dose: 5 mg Dextrose (D50w Syringe) 0 gm IV X1 PRN; Protocol PRN Reason: Hypoglycemia Docusate Sodium (Colace) 100 mg PO DAILY [facility] Last Admin: 11/19/17 14:47 Dose: 100 mg Fentanyl Citrate (Sublimaze (100mcg Ampule)) 50 mcg IV Q2H PRN PRN PRN Reason: PAIN Last Admin: 11/20/17 05:57 Dose: 50 mcg Glucagon () 1 mg IM .X1 PRN PRN Reason: Hypoglycemia Heparin Sodium (Porcine) (Heparin Na) 5,000 unit SC Q12 [facility] Last Admin: 11/19/17 21:46 Dose: 5,000 units Norepinephrine Bitartrate 8 mg (/ Dextrose) 258 mls @ 9.67 mls/hr IV .[id number] [facility] PRN Reason: 5 MCG/MIN Last Admin: 11/20/17 00:28 Dose: Not Given Insulin Glargine (Lantus (Bk)) 22 units SC QHS [facility] Last Admin: 11/19/17 21:49 Dose: 22 units Insulin Human Lispro (Humalog Kwikpen ([facility])) 0 unit SQ ACHS [facility] PRN Reason: Protocol Last Admin: 11/20/17 08:12 Dose: Not Given Isosorbide Mononitrate (Imdur) 60 mg PO BID [facility] Last Admin: 11/19/17 21:49 Dose: 60 mg Magnesium Hydroxide (Milk Of Magnesia) 30 ml PO DAILY PRN PRN Reason: Constipation Multivit/Ca Carb/B Cmplx/FA/Prenat (Nephrocaps, Renaphro) 1 capsule PO DAILY [facility] Last Admin: 11/19/17 14:52 Dose: 1 capsule Nutritional Formula (Nepro Carb Steady) 120 ml PO 4X/DAY [facility] Last Admin: 11/19/17 21:50 Dose: 120 ml Ondansetron HCl (Zofran) 4 mg IV Q8H PRN PRN PRN Reason: NAUSEA Last Admin: 11/18/17 18:23 Dose: 4 mg Pantoprazole Sodium (Protonix) 40 mg PO DAILY [facility] Last Admin: 11/19/17 14:48 Dose: 40 mg Psyllium Hydrophilic Mucilloid (Metamucil) 1 packet PO DAILY PRN PRN PRN Reason: CONSTIPATION Sodium Chloride () 5 - 30 ml IV UD PRN PRN Reason: SALINE FLUSH Last Admin: 11/20/17 05:58 Dose: 30 ml Medical Necessity - Tobacco Use Smoking Status: Former smoker Tobacco Use: Non-smoker Assessment/Plan All Active Problems (Last Reviewed 08/21/17 @ 14:33 by Pat Gomez) Hypotension (Acute) Fall (Acute) Gait instability (Acute) Pain in right ankle and joints of right foot (Acute) Ileus (Acute) Unstable angina pectoris (Acute) NSTEMI (non-ST elevated myocardial infarction) (Acute) Hyperkalemia (Acute) Chest pressure (Acute) 72 year old F with past medical history of ESRD on hemodialysis admitted on with complaints of shortness of breath that was worse since yesterday. She is a M-W-F dialysis patient of Dr. Crawley. She sustained fracture of the right foot in Jun 2017 and has been wearing a walking boot. She admits that she has gained about 30 pounds over the last 3 weeks. She describes abdominal distention and discomfort ongoing for weeks. 1. Shock likely hypovolemic versus cardiac, secondary to fluid removal from dialysis last night and blood pressure medication and pain medication side effect, patient had not been taking her home medications, off Levophed, pressures have been around 140 systolic, will continue to monitor of blood pressure pills. Transfer out of ICU to PCU, would resume rate control meds, maybe Cardizem if needed and continue to monitor blood pressures. 2. Atrial flutter, rate controlled, not on anticoagulation, cardiology following , will defer to their recommendations. 3. Acute NSTEMI secondary to demand ischemia, on aspirin, plavix, statin, will resume beta blockers when blood pressures get better. 4. Acute on chronic respiratory failure, on 3L home oxygen, secondary to fluid overload in a patient with history of ESRD on hemodialysis, Patient is on home oxygen, dialysed yesterday, less likely due to acute CHF exacerbation, 2D-ECHO shows EF 55%, stage 3 daistolic dysfunctiom, Severe +4 TR insufficiency. Will continue to monitor oxyen levels, encourage use of incentive spirometer. 5. Valvular heart disease, severe TR +4, cardiology following. 6. Liver mass, 1.9cm poorly attenuated mass seen on CT scan of abd/liver, liver ultrasound shows 2.3cm echgenic mass in right hepatic lobe, will get MRI of liver 7. Type 2 DM, Hb A1c 7.3, sugars are controlled, continue on Lantus, accucheks and ISS. 8. Hypothyroidism, continue on levothyroxine 9. Hyperkalemia, had dialysis yesterday, labs in am. 10. Right foot pain, h/o 5th metatarsal fracture with forefoot deformity, osteopenia, on tylenol 1000mg po tid, continue with fentanyl prn. 11. DVT prophylaxis with heparin subcu 12. Code status: Full code Code Visit Inpatient E&M: 01292 Subs Hosp L3
[2017-11-20] MEDS: Ondansetron 4 MG/2 ML Vial IV ×2 (09:36→22:32)
--- NOTE | 2017-11-20 09:46 | NURSING ---
Pt to MRI via MRI staff
[2017-11-20 09:49] LABS: Albumin, Serum 2.8 g/dL (3.2-5.0); Phosphorus 5.9 mg/dL (2.5-4.9)
--- NOTE | 2017-11-20 10:19 | PN.CARD_ITS ---
Subjectve: Patient continues to slowly improve, tolerated dialysis well yesterday. Heart rate improved this morning. Patient complains of constipation and mild abdominal pain. Off of levo fed since yesterday. Awaiting MRI to evaluate liver mass this morning. Telemetry showed atrial flutter with controlled ventricular response. Objective: Vital Signs Temp Pulse Resp BP Pulse Ox 97.1 F L 73 14 143/57 H 93 11/20/17 08:00 11/20/17 08:00 11/20/17 08:00 11/20/17 08:00 11/20/17 08:00 Oxygen Flow Rate (L/min) 2 Oxygen Delivery Method Room Air Weight: 199 lb 1.239 oz Body Mass Index (BMI) 32.4 Intake and Output for Last 24 Hours 11/18/17 11/19/17 11/20/17 23:59 23:59 23:59 Intake Total 4200.8 / 4200.8 1162 / 1162 80 / 80 Output Total 3800 / 3800 1000 / 1000 0 / 0 Balance 400.8 / 400.8 162 / 162 80 / 80 General: Awake, Alert, Oriented x 3 HEENT: PERRL, EOMI, Sclera Non Icteric Neck: Supple, Good ROM, No Lymph Node Enlargement Lungs: Clear to auscultation Cardiovascular: Irregular Rhythm, Normal S1, Normal S2, No Murmurs, No Rubs, No Gallops Murmur Murmur: Grade 3/6, Holosystolic Vascular: No Carotid Bruits, Normal Femoral Pulses, Normal Radial Pulses, Normal Dorsalis Pedal Pulse, Normal Posterior Tibial Pulses Abdomen: Bowel Sounds Present, Soft, Non Tender, No HSM, No Organomegaly Extremities: No Cyanosis, No Clubbing, No edema Neurological: No Focal Motor or Sensory Deficit 11/20/17 04:10: Hemoglobin A1c 7.3 H 11/20/17 07:45: Sodium Cancelled, Potassium Cancelled, Chloride Cancelled, Carbon Dioxide Cancelled, BUN Cancelled, Creatinine Cancelled, Est GFR (MDRD) Af Amer Cancelled, Est GFR (MDRD) Non-Af Cancelled, BUN/Creatinine Ratio Cancelled, Glucose Cancelled, Calcium Cancelled, Phosphorus 5.9 H 11/20/17 07:45: Sodium 131 L, Potassium 4.4, Chloride 93 L, Carbon Dioxide 27.0 , Anion Gap 11, BUN 29 H, Creatinine 3.00 H, Est GFR (MDRD) Af Amer 20 L, Est GFR (MDRD) Non-Af 16 L, BUN/Creatinine Ratio 9.7 L, Glucose 140 H, Calcium 8.6 Rhythm: EKG: ECHO: Stress Test: Cardiac Cath: PCI: CT Surgery: Holter monitor: EPS: PPM: CXR: Chest CT Scan: Medical Necessity - Tobacco Use Smoking Status: Former smoker Tobacco Use: Non-smoker Assessment/Plan 1. Congestive heart failure: After discussing with the patient her reasons for CHF exacerbation, it appears that she was noncompliant with her medications for the past 3 months, but compliant with hemodialysis, and compliant with her fluid restrictions for the most part. Her CT scan suggest ascites and a 1.9 cm mass located in the central parenchyma of the liver as well as thickening of her bowel, and further evaluation recommended in the form of a contrast MRI which is going to take place this morning.. Patient has been off Levophed since yesterday at 2 PM, and blood pressure is maintaining well. Heart rate is also improved as well. Patient does feel better this morning, and denies any chest pain or shortness of breath. Given the patient's hemodialysis, history of constipation, as well as the fact that Coreg is cleared in the serum and not dependent upon renal dysfunction, I would recommend restarting her Coreg 3.125 mg p.o. twice daily. In addition she has constipation which is made worse by calcium channel blockers. Would avoid, calcium channel blockers at this time. 2. Coronary artery disease: Patient has no anginal symptoms at this time, and has known coronary disease with nonobstructive disease of her left main and LAD , and occluded anomalous left circumflex, and disease of her proximal and distal RCA which was to be evaluated and corrected at [facility] for a 2017. Patient has had no anginal symptoms, and minimal troponin release. At this point I do not recommend repeat catheterization at this time. 3. Thank you very much for the opportunity to participate in the cardiac care of your patient. Awaiting MRI results. Code Visit Inpatient E&M: 82524 Subs Hosp L2
--- NOTE | 2017-11-20 10:23 | CASEMGMT ---
RN CM Note. Attempted to interview pt again re: Home Health on dc. Pt to testing. Kyra SANTIAGON RN ACM
[2017-11-20] MEDS: Docusate Sodium 100 MG Capsule PO (10:48)
[2017-11-20] MEDS: Isosorbide Mononitrate 60 MG Tablet PO ×2 (10:49→21:36)
[2017-11-20] MEDS: Heparin Injection (Vial) 5,000 UNIT/ML VIAL 5000 UNIT SC ×2 (10:49→21:37)
[2017-11-20] MEDS: Folic Acid/Vitamin B Comp W-C 1 Capsule 1 CAP PO (10:50)
[2017-11-20] MEDS: Pantoprazole Sodium 40 MG Tablet PO (10:50)
[2017-11-20] MEDS: Clopidogrel Bisulfate 75 MG Tablet PO (10:50)
[2017-11-20] MEDS: Nepro Liquid 120 ML LIQUID PO ×4 (10:52→22:38)
[2017-11-20] MEDS: Insulin Lispro 100 UNIT/ML INSULN.PEN SQ ×3 (11:38→21:44)
[2017-11-20 11:45] LABS: Bedside Glucose 154 mg/dL (70-110)
--- NOTE | 2017-11-20 15:56 | PCM.PN.REN ---
Patient Problems: Active and Suspected Problems (Last Reviewed 08/21/17 @ 14:33 by Pat Gomez) Hypotension (Acute) Subjective: BP, heart rate stable off levo drip. Admits to not taking her medications as prescribed. States her daughter will handle her medications on discharge. Complains of constipation. Edema stable. - Physical Exam General: Alert, Oriented x3, Cooperative, - - debilitated Oral: Dry Mucosa Neck: Supple Lungs: Clear to auscultation Cardiovascular: Irregular Rate - aflutter Abdomen: Bowel Sounds Present, Soft, Non-Distended, Tender Extremities: Edema - mild Skin: No rashes Neurological: - - gen weakness Psych/Mental Status: Appropriate, Alert and oriented to time, place, person, mood and affect Vital Signs Temp Pulse Resp BP Pulse Ox 97.3 F L 69 15 152/56 H 96 11/20/17 11:00 11/20/17 15:01 11/20/17 11:00 11/20/17 11:00 11/20/17 11:00 Oxygen Flow Rate (L/min) 2 Oxygen Delivery Method Nasal Cannula Weight: 90.3 kg Body Mass Index (BMI) 32.4 Intake and Output for Last 24 Hours 11/18/17 11/19/17 11/20/17 23:59 23:59 23:59 Intake Total 4200.8 / 4200.8 1162 / 1162 395 / 395 Output Total 3800 / 3800 1000 / 1000 0 / 0 Balance 400.8 / 400.8 162 / 162 395 / 395 Laboratory Tests Past 24 Hrs 11/20/17 11/20/17 11/20/17 04:10 07:45 07:45 Sodium Cancelled 131 L Potassium Cancelled 4.4 Chloride Cancelled 93 L Carbon Dioxide Cancelled 27.0 Anion Gap 11 BUN Cancelled 29 H Creatinine Cancelled 3.00 H Estim Creat Clear Calc 14.80 Est GFR (MDRD) Af Amer Cancelled 20 L Est GFR (MDRD) Non-Af Cancelled 16 L BUN/Creatinine Ratio Cancelled 9.7 L Glucose Cancelled 140 H Hemoglobin A1c 7.3 H Calcium Cancelled 8.6 Phosphorus 5.9 H Albumin 2.8 L POC Glucose 11/20/17 11/20/17 11/19/17 11:36 08:09 21:42 POC Glucose 154 H 128 H 177 H 11/19/17 17:35 POC Glucose 124 H Medical Necessity - Tobacco Use Smoking Status: Former smoker Tobacco Use: Non-smoker Assessment/Plan All Active Problems (Last Reviewed 08/21/17 @ 14:33 by Pat Gomez) Hypotension (Acute) Fall (Acute) Gait instability (Acute) Pain in right ankle and joints of right foot (Acute) Ileus (Acute) Unstable angina pectoris (Acute) NSTEMI (non-ST elevated myocardial infarction) (Acute) Hyperkalemia (Acute) Chest pressure (Acute) 1. ESRD HD MWF 2. Hypotension, bradycardia resolving 3. Malcompliance with medications unintentional with cognitive impairment 4. DM2 a1C 7.2 5. Abdominal pain, constipation see orders 6. HTN with history of poorly controlled BP and tachycardia due to noncompliance with medications 7. Atrial flutter, rate controlled. Will likely need to go back on coreg when hypotension, bradycardia stabilized. LOC hospitalist
[2017-11-20] MEDS: Lactulose 20 GM/30 ML UDC PO (16:59)
[2017-11-20 17:01] LABS: Bedside Glucose 194 mg/dL (70-110)
[2017-11-20] MEDS: Atorvastatin Calcium 40 MG Tablet PO (21:39)
[2017-11-20 22:36] LABS: Bedside Glucose 178 mg/dL (70-110)
[2017-11-21] VITALS (12 sets, daily range): BP systolic 143–189; BP diastolic 64–71; PULSE 68–95; RESP 14–19; TEMP 36.4–36.9; O2SAT 90–99
[2017-11-21] MEDS: fentaNYL 100 MCG/2 ML Ampul 50 MCG IV ×3 (00:24→10:13)
[2017-11-21] MEDS: 0.9% NaCl Peripheral Flush Adult/Peds IV ×3 (00:24→10:14)
[2017-11-21 05:01] LABS: Absolute Neutrophil Count 4.4 X10^3/uL (2.0-7.7); Basophil# 0.03 X10^3/uL; Basophil% 0.4 % (0-1); Differential Indicated SCAN CRITERIA MET; Eosinophil# 0.37 X10^3/uL; Eosinophils% 5.2 % (0-5); Hematocrit 36.4 % (37-47); Hemoglobin 11.3 g/dl (12.0-15.0); Lymphocyte % 21.2 % (19-41); Mean Corpuscular Hgb 29.8 pg (27.0-32.0); Monocyte# 0.76 X10^3/uL; Monocyte% 10.7 % (0-10); Neutrophil # 4.42 X10^3/uL (2.7-7.7); Neutrophil % 62.4 % (47-70); POSITIVE COUNT NO; POSITIVE DIFFERENTIAL NO; POSITIVE MORPHOLOGY YES; Platelet Count 134 K/mm3 (150-450); RBC Distribution Width CV 20.9 % (11.6-14.6); RBC Distribution Width SD 70.3 fl (35.1-43.9); Red Blood Count 3.79 M/mm3 (4.2-5.4); White Blood Count 7.1 K/mm3 (4.4-11.0)
[2017-11-21 05:24] LABS: Albumin, Serum 2.9 g/dL (3.2-5.0); BUN 37 mg/dL (7-18); BUN/Creat Ratio 9.9 RATIO (10-20); Calcium,Total 8.6 mg/dL (8.5-10.1); Chloride 94 mmol/L (98-107); Creatinine, Serum 3.75 mg/dL (0.55-1.02); EST Glomerular Filtration Rate 13 mL/min (>60); Est Glom Filt Rate - Afr Amer 15 mL/min (>60); Estimated Creatinine Clearance 11.84 ml/min; Glucose 80 mg/dL (74-106); Potassium 4.2 mmol/L (3.5-5.1); Sodium Level 134 mmol/L (136-145)
[2017-11-21] MEDS: Acetaminophen 500 MG Tablet 1000 MG PO ×3 (05:34→22:59)
[2017-11-21 07:00] LABS: Anisocytosis 1+; Differential Comment SCAN; Macrocytosis 1+
--- NOTE | 2017-11-21 07:47 | PN_ITS ---
Patient Problems: Active and Suspected Problems (Last Reviewed 08/21/17 @ 14:33 by Pat Gomez) Hypotension (Acute) Subjective: Patient was seen and examined. [place] diaphoretic this morning. Blood sugar was 61. Treated with some orange juice. Denies any fever or chills or dizziness or chest pain. Heart rate is improved. Objective: Physical exam: General: Alert, Oriented x3, Cooperative, No apparent distress HEENT: Atraumatic, PERRLA, EOMI, Normocephalic Oral: Dry Mucosa Neck: Supple, - - Right neck JVD Lungs: Normal air movement, Diminished, Rales - bilateral lung bases Cardiovascular: Regular rate, Regular Rhythm, Normal S1, Normal S2, No murmurs Abdomen: Bowel Sounds Present, Soft, Non Tender, Non-Distended, No Hepato- splenomegaly Extremities: Edema - +2-3 non-pitting pedal edema Skin: No rashes Musculoskeletal: No Tenderness to Palpation of Joints or Extremities Neurological: Cranial nerves II-XII grossly intact, Neuro grossly intact Psych/Mental Status: Normal Affect, Appropriate Vitals/I&O's: Vital Signs Temp Pulse Resp BP Pulse Ox 98.4 F 95 14 149/69 H 90 11/21/17 02:36 11/21/17 04:00 11/21/17 02:36 11/21/17 02:36 11/21/17 02:36 Oxygen Flow Rate (L/min) 2 Oxygen Delivery Method Room Air Weight: 91.5 kg Body Mass Index (BMI) 32.4 Intake and Output for Last 24 Hours 11/19/17 11/20/17 11/21/17 23:59 23:59 23:59 Intake Total 1162 / 1162 515 / 515 220 / 220 Output Total 1000 / 1000 0 / 0 0 / 0 Balance 162 / 162 515 / 515 220 / 220 Microbiology Past 72 Hours 11/18/17 19:45 Blood Culture (Wb) - Central Line Blood Culture - Preliminary No growth in 48 hours. 11/18/17 19:50 Blood Culture (Wb) - Arm Right Blood Culture - Preliminary No growth in 48 hours. Laboratory Results 11/20/17 04:10: Hemoglobin A1c 7.3 H 11/20/17 07:45: Sodium Cancelled, Potassium Cancelled, Chloride Cancelled, Carbon Dioxide Cancelled, BUN Cancelled, Creatinine Cancelled, Est GFR (MDRD) Af Amer Cancelled, Est GFR (MDRD) Non-Af Cancelled, BUN/Creatinine Ratio Cancelled, Glucose Cancelled, Calcium Cancelled, Phosphorus 5.9 H, Albumin 2.8 L 11/20/17 07:45: Sodium 131 L, Potassium 4.4, Chloride 93 L, Carbon Dioxide 27.0 , Anion Gap 11, BUN 29 H, Creatinine 3.00 H, Estim Creat Clear Calc 14.80, Est GFR (MDRD) Af Amer 20 L, Est GFR (MDRD) Non-Af 16 L, BUN/Creatinine Ratio 9.7 L , Glucose 140 H, Calcium 8.6 11/20/17 08:09: POC Glucose 128 H 11/20/17 11:36: POC Glucose 154 H 11/20/17 16:53: POC Glucose 194 H 11/20/17 21:43: POC Glucose 178 H 11/21/17 04:20: WBC 7.1, RBC 3.79 L, Hgb 11.3 L, Hct 36.4 L, MCV 96.0, MCH 29.8 , MCHC 31.0 L, RDW 20.9 H, RDW Differential 70.3 H, Plt Count 134 L, MPV 10.0, Immature Gran % (Auto) 0.100, Neut % (Auto) 62.4, Lymph % (Auto) 21.2, [place] % ( Auto) 10.7 H, Eos % (Auto) 5.2 H, Baso % (Auto) 0.4, Absolute Neuts (auto) 4.4, Absolute Lymphs (auto) 1.50, Total Counted Not Reportable, Differential Comment SCAN, Anisocytosis 1+, Macrocytosis 1+ 11/21/17 04:20: Sodium 134 L, Potassium 4.2, Chloride 94 L, Carbon Dioxide 30.0 , BUN 37 H, Creatinine 3.75 H, Estim Creat Clear Calc 11.84, Est GFR (MDRD) Af Amer 15 L, Est GFR (MDRD) Non-Af 13 L, BUN/Creatinine Ratio 9.9 L, Glucose 80, Calcium 8.6, Phosphorus 6.0 H, Albumin 2.9 L Current Medications Acetaminophen (Tylenol) 1,000 mg PO TID FARZANA Last Admin: 11/21/17 05:34 Dose: 1,000 mg Aspirin (Ecotrin) 81 mg PO DAILYCM [facility] Last Admin: 11/20/17 08:12 Dose: 81 mg Atorvastatin Calcium (Lipitor) 40 mg PO QHS [facility] Last Admin: 11/20/17 21:39 Dose: 40 mg Bisacodyl (Dulcolax) 5 mg PO DAILY PRN PRN PRN Reason: Constipation Calcium Acetate (Phoslo Gel Cap) 667 mg PO TIDCM [facility] Last Admin: 11/20/17 16:56 Dose: 667 mg Carvedilol (Coreg) 3.125 mg PO BID [facility] Cholecalciferol (Vitamin D) 5,000 unit PO MOWEFR [facility] Last Admin: 11/19/17 14:50 Dose: 5,000 unit Clopidogrel Bisulfate (Plavix) 75 mg PO DAILY [facility] Last Admin: 11/20/17 10:50 Dose: 75 mg Cyclobenzaprine HCl (Cyclobenzaprine Hcl) 5 mg PO BID PRN PRN PRN Reason: SPASMS Last Admin: 11/19/17 14:51 Dose: 5 mg Dextrose (D50w Syringe) 0 gm IV X1 PRN; Protocol PRN Reason: Hypoglycemia Docusate Sodium (Colace) 100 mg PO DAILY [facility] Last Admin: 11/20/17 10:48 Dose: 100 mg Fentanyl Citrate (Sublimaze (100mcg Ampule)) 50 mcg IV Q2H PRN PRN PRN Reason: PAIN Last Admin: 11/21/17 04:15 Dose: 50 mcg Glucagon () 1 mg IM .X1 PRN PRN Reason: Hypoglycemia Heparin Sodium (Porcine) (Heparin Na) 5,000 unit SC Q12 [facility] Last Admin: 11/20/17 21:37 Dose: 5,000 units Insulin Glargine (Lantus (Bkc)) 22 units SC QHS [facility] Last Admin: 11/20/17 21:44 Dose: 22 units Insulin Human Lispro (Humalog Kwikpen (Bkc)) 0 unit SQ ACHS [facility] PRN Reason: Protocol Last Admin: 11/20/17 21:44 Dose: 1 u Isosorbide Mononitrate (Imdur) 60 mg PO BID [facility] Last Admin: 11/20/17 21:36 Dose: 60 mg Lactulose (Chronulac, Cephulac) 20 gm PO DAILY PRN PRN Reason: Constipation Multivit/Ca Carb/B Cmplx/FA/Prenat (Nephrocaps, Renaphro) 1 capsule PO DAILY [facility] Last Admin: 11/20/17 10:50 Dose: 1 capsule Nutritional Formula (Nepro Carb Steady) 120 ml PO 4X/DAY [facility] Last Admin: 11/20/17 22:38 Dose: 120 ml Ondansetron HCl (Zofran) 4 mg IV Q8H PRN PRN PRN Reason: NAUSEA Last Admin: 11/20/17 22:32 Dose: 4 mg Pantoprazole Sodium (Protonix) 40 mg PO DAILY [facility] Last Admin: 11/20/17 10:50 Dose: 40 mg Polyethylene Glycol (Miralax) 17 gm PO DAILY PRN PRN Reason: Constipation Psyllium Hydrophilic Mucilloid (Metamucil) 1 packet PO DAILY PRN PRN PRN Reason: CONSTIPATION Sodium Chloride () 5 - 30 ml IV UD PRN PRN Reason: SALINE FLUSH Last Admin: 11/21/17 04:21 Dose: 20 ml Medical Necessity - Tobacco Use Smoking Status: Former smoker Tobacco Use: Non-smoker Assessment/Plan All Active Problems (Last Reviewed 08/21/17 @ 14:33 by Pat Gomez) Hypotension (Acute) Fall (Acute) Gait instability (Acute) Pain in right ankle and joints of right foot (Acute) Ileus (Acute) Unstable angina pectoris (Acute) NSTEMI (non-ST elevated myocardial infarction) (Acute) Hyperkalemia (Acute) Chest pressure (Acute) 72 year old F with past medical history of ESRD on hemodialysis admitted with complaints of shortness of breath for a couple of days. She is a M-W-F dialysis patient of Dr. Crawley. She sustained fracture of the right foot in Jun 2017 and has been wearing a walking boot. She admits that she has gained about 30 pounds over the last 3 weeks. She describes abdominal distention and discomfort ongoing for weeks. 1. Shock likely hypovolemic versus cardiac, secondary to fluid removal from dialysis last night and blood pressure medication and pain medication side effect, RESOLVED. Patient had not been taking her home medications, been off Levophed, 2. Hypertension, started on coreg and Imdur, will continue to monitor. 3. Episode of hypoglycemia, type 2DM, HBA1c 7.3, on Lantus 22 units QHS with insulin sliding scale, obviously patient has not been taking that either, would decrease it by half to 10 units QHS and will monitor BS with plan of slow increase in insulin if BS remain uncontrolled. 4. Atrial flutter, rate controlled, not on anticoagulation, cardiology following , will defer to their recommendations. 5. Acute NSTEMI secondary to demand ischemia, on aspirin, plavix, statin, beta- blockers. 6. Acute on chronic respiratory failure, resolved, on 3L home oxygen, secondary to fluid overload, patient is getting dialysis 7. Valvular heart disease, severe TR +4, cardiology following. 8. Liver hemangioma with hepatosplenomegaly, with ascites, pleural effusion and percardial effusion, will continue fluid removal with dialysis. 9. Hypothyroidism, continue on levothyroxine 10. Hyperkalemia, resolved with dialysis 11. Right foot pain, h/o 5th metatarsal fracture with forefoot deformity, osteopenia, on tylenol 1000mg po tid, resume home oxycodone. 12. DVT prophylaxis with heparin subcu 13. Code status: Full code 14. Disposition: Possible DC in 24-48 hrs Code Visit Inpatient E&M: 93087 Subs Hosp L3
[2017-11-21 07:55] LABS: Bedside Glucose 61 mg/dL (70-110)
--- NOTE | 2017-11-21 08:49 | PCM.PN.CARD ---
Subjectve: Patient feeling much better today although she did have an episode of low blood sugar. Blood pressure is much better. Undergoing hemodialysis this morning. Patient is now several liters ahead after aggressive IV fluid resuscitation. MRI of her liver demonstrates probable hemangioma with ascites. Also noted pleural effusion and pericardial effusion. Objective: Vital Signs Temp Pulse Resp BP Pulse Ox 98.4 F 95 14 149/69 H 90 11/21/17 02:36 11/21/17 04:00 11/21/17 02:36 11/21/17 02:36 11/21/17 02:36 Oxygen Flow Rate (L/min) 2 Oxygen Delivery Method Room Air Weight: 201 lb 11.567 oz Body Mass Index (BMI) 32.4 Intake and Output for Last 24 Hours 11/19/17 11/20/17 11/21/17 23:59 23:59 23:59 Intake Total 1162 / 1162 515 / 515 220 / 220 Output Total 1000 / 1000 0 / 0 0 / 0 Balance 162 / 162 515 / 515 220 / 220 General: Awake, Alert, Oriented x 3 HEENT: PERRL, EOMI, Sclera Non Icteric Neck: Supple, Good ROM, No Lymph Node Enlargement Lungs: Clear to auscultation Cardiovascular: Regular Rhythm, Normal S1, Normal S2, No Rubs, No Gallops Murmur Murmur: Grade 3/6, Holosystolic Vascular: No Carotid Bruits, Normal Femoral Pulses, Normal Radial Pulses, Normal Dorsalis Pedal Pulse, Normal Posterior Tibial Pulses Abdomen: Bowel Sounds Present, Soft, Non Tender, No HSM, No Organomegaly Extremities: No Cyanosis, No Clubbing, Bilateral Edema +1 Neurological: No Focal Motor or Sensory Deficit 11/20/17 07:45: Sodium Cancelled, Potassium Cancelled, Chloride Cancelled, Carbon Dioxide Cancelled, BUN Cancelled, Creatinine Cancelled, Est GFR (MDRD) Af Amer Cancelled, Est GFR (MDRD) Non-Af Cancelled, BUN/Creatinine Ratio Cancelled, Glucose Cancelled, Calcium Cancelled, Phosphorus 5.9 H 11/21/17 04:20: WBC 7.1, RBC 3.79 L, Hgb 11.3 L, Hct 36.4 L, MCV 96.0, MCH 29.8, MCHC 31.0 L, RDW 20.9 H, RDW Differential 70.3 H, Plt Count 134 L, MPV 10.0, Immature Gran % (Auto) 0.100, Neut % (Auto) 62.4, Lymph % (Auto) 21.2, [place] % (Auto) 10.7 H, Eos % (Auto) 5.2 H, Baso % (Auto) 0.4, Absolute Neuts (auto) 4.4, Total Counted Not Reportable 11/21/17 04:20: Sodium 134 L, Potassium 4.2, Chloride 94 L, Carbon Dioxide 30.0, BUN 37 H, Creatinine 3.75 H, Est GFR (MDRD) Af Amer 15 L, Est GFR (MDRD) Non-Af 13 L, BUN/Creatinine Ratio 9.9 L, Glucose 80, Calcium 8.6, Phosphorus 6.0 H Rhythm: EKG: ECHO: Stress Test: Cardiac Cath: PCI: CT Surgery: Holter monitor: EPS: PPM: CXR: Chest CT Scan: Medical Necessity - Tobacco Use Smoking Status: Former smoker Tobacco Use: Non-smoker Assessment/Plan 1. Congestive heart failure: After discussing with the patient her reasons for CHF exacerbation, it appears that she was noncompliant with her medications for the past 3 months, but compliant with hemodialysis, and compliant with her fluid restrictions for the most part. Her CT scan suggest ascites and a 1.9 cm mass located in the central parenchyma of the liver as well as thickening of her bowel. MRI suggests that her liver mass is a hemangioma and would not recommend additional workup at this time. Patient has been off levo fed for 2 days time, and her blood pressure is markedly elevated prior to dialysis this morning. I started her on Coreg 3.125 mg p.o. twice daily yesterday, she is back on her Imdur 60 mg p.o. twice daily, and would recommend restarting losartan 25 mg p.o. daily and titrating it up as her blood pressure tolerates. Would hold off on clonidine at this time as this can contribute to bradycardia while we are trying to titrate up her Coreg. Would avoid calcium channel blockers unless absolutely necessary as this promotes constipation which the patient has had trouble with. 2. Coronary artery disease: Patient has no anginal symptoms at this time, and has known coronary disease with nonobstructive disease of her left main and LAD, and occluded anomalous left circumflex, and disease of her proximal and distal RCA which was to be evaluated and corrected at [facility] for a 2017. Patient has had no anginal symptoms, and minimal troponin release. At this point I do not recommend repeat catheterization at this time. 3. Thank you very much for the opportunity to participate in the cardiac care of your patient. Patient may be transferred to floor after hemodialysis is complete assuming she is hemodynamically stable.
--- NOTE | 2017-11-21 08:54 | PN.CARD_ITS ---
Subjectve: Patient feeling much better today although she did have an episode of low blood sugar. Blood pressure is much better. Undergoing hemodialysis this morning. Patient is now several liters ahead after aggressive IV fluid resuscitation. MRI of her liver demonstrates probable hemangioma with ascites. Also noted pleural effusion and pericardial effusion. Objective: Vital Signs Temp Pulse Resp BP Pulse Ox 98.4 F 95 14 149/69 H 90 11/21/17 02:36 11/21/17 04:00 11/21/17 02:36 11/21/17 02:36 11/21/17 02:36 Oxygen Flow Rate (L/min) 2 Oxygen Delivery Method Room Air Weight: 201 lb 11.567 oz Body Mass Index (BMI) 32.4 Intake and Output for Last 24 Hours 11/19/17 11/20/17 11/21/17 23:59 23:59 23:59 Intake Total 1162 / 1162 515 / 515 220 / 220 Output Total 1000 / 1000 0 / 0 0 / 0 Balance 162 / 162 515 / 515 220 / 220 General: Awake, Alert, Oriented x 3 HEENT: PERRL, EOMI, Sclera Non Icteric Neck: Supple, Good ROM, No Lymph Node Enlargement Lungs: Clear to auscultation Cardiovascular: Regular Rhythm, Normal S1, Normal S2, No Rubs, No Gallops Murmur Murmur: Grade 3/6, Holosystolic Vascular: No Carotid Bruits, Normal Femoral Pulses, Normal Radial Pulses, Normal Dorsalis Pedal Pulse, Normal Posterior Tibial Pulses Abdomen: Bowel Sounds Present, Soft, Non Tender, No HSM, No Organomegaly Extremities: No Cyanosis, No Clubbing, Bilateral Edema +1 Neurological: No Focal Motor or Sensory Deficit 11/20/17 07:45: Sodium Cancelled, Potassium Cancelled, Chloride Cancelled, Carbon Dioxide Cancelled, BUN Cancelled, Creatinine Cancelled, Est GFR (MDRD) Af Amer Cancelled, Est GFR (MDRD) Non-Af Cancelled, BUN/Creatinine Ratio Cancelled, Glucose Cancelled, Calcium Cancelled, Phosphorus 5.9 H 11/21/17 04:20: WBC 7.1, RBC 3.79 L, Hgb 11.3 L, Hct 36.4 L, MCV 96.0, MCH 29.8 , MCHC 31.0 L, RDW 20.9 H, RDW Differential 70.3 H, Plt Count 134 L, MPV 10.0, Immature Gran % (Auto) 0.100, Neut % (Auto) 62.4, Lymph % (Auto) 21.2, [place] % ( Auto) 10.7 H, Eos % (Auto) 5.2 H, Baso % (Auto) 0.4, Absolute Neuts (auto) 4.4, Total Counted Not Reportable 11/21/17 04:20: Sodium 134 L, Potassium 4.2, Chloride 94 L, Carbon Dioxide 30.0 , BUN 37 H, Creatinine 3.75 H, Est GFR (MDRD) Af Amer 15 L, Est GFR (MDRD) Non- Af 13 L, BUN/Creatinine Ratio 9.9 L, Glucose 80, Calcium 8.6, Phosphorus 6.0 H Rhythm: EKG: ECHO: Stress Test: Cardiac Cath: PCI: CT Surgery: Holter monitor: EPS: PPM: CXR: Chest CT Scan: Medical Necessity - Tobacco Use Smoking Status: Former smoker Tobacco Use: Non-smoker Assessment/Plan 1. Congestive heart failure: After discussing with the patient her reasons for CHF exacerbation, it appears that she was noncompliant with her medications for the past 3 months, but compliant with hemodialysis, and compliant with her fluid restrictions for the most part. Her CT scan suggest ascites and a 1.9 cm mass located in the central parenchyma of the liver as well as thickening of her bowel. MRI suggests that her liver mass is a hemangioma and would not recommend additional workup at this time. Patient has been off levo fed for 2 days time, and her blood pressure is markedly elevated prior to dialysis this morning. I started her on Coreg 3.125 mg p.o. twice daily yesterday, she is back on her Imdur 60 mg p.o. twice daily, and would recommend restarting losartan 25 mg p.o. daily and titrating it up as her blood pressure tolerates. Would hold off on clonidine at this time as this can contribute to bradycardia while we are trying to titrate up her Coreg. Would avoid calcium channel blockers unless absolutely necessary as this promotes constipation which the patient has had trouble with. 2. Coronary artery disease: Patient has no anginal symptoms at this time, and has known coronary disease with nonobstructive disease of her left main and LAD , and occluded anomalous left circumflex, and disease of her proximal and distal RCA which was to be evaluated and corrected at [facility] for a 2017. Patient has had no anginal symptoms, and minimal troponin release. At this point I do not recommend repeat catheterization at this time. 3. Thank you very much for the opportunity to participate in the cardiac care of your patient. Patient may be transferred to floor after hemodialysis is complete assuming she is hemodynamically stable.
[2017-11-21 12:15] LABS: Bedside Glucose 198 mg/dL (70-110)
--- NOTE | 2017-11-21 12:33 | DIALYSIS ---
Hemodialysis completed 3 hours and 18 minutes, Patient infiltrated the venous or return needle while getting off the bedpan during treatment so treatment was terminated early. Fluid removed was 1500 ml, BP stable throughout. Both needles were removed and manual pressure held, infiltrate now softened and positive for thrill and bruit. Dr Crawley assessed the patient and evaluated her fistula post treatment today. Next treatment will be sunday. see flowsheet for details.
--- NOTE | 2017-11-21 12:39 | PCM.PN.REN ---
Patient Problems: Active and Suspected Problems (Last Reviewed 08/21/17 @ 14:33 by Pat Gomez) Hypervolemia (Acute) Hypotension (Acute) Subjective: seen on dialysis, access infiltration after using bedpan. Treatment termnated 50 min early. Removed 1.5L. BP elevated, HR 90's. Started back on losartan and coreg. No BM yet. - Physical Exam General: Alert, Oriented x3, Cooperative, No apparent distress Neck: Supple Lungs: Clear to auscultation, Diminished Cardiovascular: Irregular Rate - aflutter Abdomen: Bowel Sounds Present, Soft, Non Tender, Non-Distended Extremities: Edema - minimal Musculoskeletal: No Muscle Wasting Vital Signs Temp Pulse Resp BP Pulse Ox 97.5 F L 90 15 150/64 H 99 11/21/17 08:00 11/21/17 11:41 11/21/17 08:00 11/21/17 08:00 11/21/17 08:00 Oxygen Flow Rate (L/min) 2 Oxygen Delivery Method Room Air Weight: 91.5 kg Body Mass Index (BMI) 32.4 Intake and Output for Last 24 Hours 11/19/17 11/20/17 11/21/17 23:59 23:59 23:59 Intake Total 1162 / 1162 515 / 515 220 / 220 Output Total 1000 / 1000 0 / 0 0 / 0 Balance 162 / 162 515 / 515 220 / 220 Microbiology Past 72 Hours 11/18/17 19:45 Blood Culture - Preliminary Blood Culture (Wb) - Central Line No growth in 48 hours. 11/18/17 19:50 Blood Culture - Preliminary Blood Culture (Wb) - Arm Right No growth in 48 hours. Laboratory Tests Past 24 Hrs 11/21/17 11/21/17 04:20 04:20 WBC 7.1 RBC 3.79 L Hgb 11.3 L Hct 36.4 L MCV 96.0 MCH 29.8 MCHC 31.0 L RDW 20.9 H RDW Differential 70.3 H Plt Count 134 L MPV 10.0 Immature Gran % (Auto) 0.100 Neut % (Auto) 62.4 Lymph % (Auto) 21.2 [place] % (Auto) 10.7 H Eos % (Auto) 5.2 H Baso % (Auto) 0.4 Absolute Neuts (auto) 4.4 Absolute Lymphs (auto) 1.50 Total Counted Not Reportable Differential Comment SCAN Anisocytosis 1+ Macrocytosis 1+ Sodium 134 L Potassium 4.2 Chloride 94 L Carbon Dioxide 30.0 BUN 37 H Creatinine 3.75 H Estim Creat Clear Calc 11.84 Est GFR (MDRD) Af Amer 15 L Est GFR (MDRD) Non-Af 13 L BUN/Creatinine Ratio 9.9 L Glucose 80 Calcium 8.6 Phosphorus 6.0 H Albumin 2.9 L POC Glucose 11/21/17 11/21/17 11/20/17 12:09 07:51 21:43 POC Glucose 198 H 61 L 178 H 11/20/17 16:53 POC Glucose 194 H Medical Necessity - Tobacco Use Smoking Status: Former smoker Tobacco Use: Non-smoker Assessment/Plan All Active Problems (Last Reviewed 08/21/17 @ 14:33 by Pat Gomez) Hypervolemia (Acute) Hypotension (Acute) Fall (Acute) Gait instability (Acute) Pain in right ankle and joints of right foot (Acute) Ileus (Acute) Unstable angina pectoris (Acute) NSTEMI (non-ST elevated myocardial infarction) (Acute) Hyperkalemia (Acute) Chest pressure (Acute) 1. ESRD HD MWF. dialysis today, terminated 50 min early due to access infiltration. 1.5L fluid removed 2. Hypotension, bradycardia resolved. Increase coreg dose for hypertension. Agree with Losartan 3. Malcompliance with medications unintentional with cognitive impairment 4. DM2 a1C 7.2 5. Abdominal pain, constipation see orders 6. HTN with history of poorly controlled BP and tachycardia due to noncompliance with medications 7. Atrial flutter cardiology following
[2017-11-21] MEDS: Insulin Lispro 100 UNIT/ML INSULN.PEN SQ (13:13)
[2017-11-21] MEDS: Calcium Acetate 667 MG Capsule 1334 MG PO ×2 (13:14→17:50)
[2017-11-21] MEDS: Heparin Injection (Vial) 5,000 UNIT/ML VIAL 5000 UNIT SC ×2 (13:14→22:56)
[2017-11-21] MEDS: Losartan Potassium 50 MG Tablet PO (13:15)
[2017-11-21] MEDS: Carvedilol 3.125 MG TABLET PO ×2 (13:15→22:56)
[2017-11-21] MEDS: Isosorbide Mononitrate 60 MG Tablet PO ×2 (13:15→22:57)
[2017-11-21] MEDS: Clopidogrel Bisulfate 75 MG Tablet PO (13:15)
[2017-11-21] MEDS: Pantoprazole Sodium 40 MG Tablet PO (13:15)
[2017-11-21] MEDS: Docusate Sodium 100 MG Capsule PO ×2 (13:15→22:55)
[2017-11-21] MEDS: Aspirin E.C. 81 MG Tablet PO (13:15)
[2017-11-21] MEDS: oxyCODONE 5 MG Tablet PO ×3 (13:45→23:05)
[2017-11-21] MEDS: Lactulose 20 GM/30 ML UDC PO (14:23)
[2017-11-21] MEDS: Folic Acid/Vitamin B Comp W-C 1 Capsule 1 CAP PO (14:25)
--- NOTE | 2017-11-21 14:38 | EKG12_ITS ---
Test Reason : CP Blood Pressure : / mmHG Vent. Rate : 074 BPM Atrial Rate : 096 BPM P-R Int : 000 ms QRS Dur : 096 ms QT Int : 386 ms P-R-T Axes : 000 025 150 degrees QTc Int : 428 ms Atrial fibrillation Nonspecific T wave abnormality Abnormal ECG When compared with ECG of 18-NOV-2017 11:19, MANUAL COMPARISON REQUIRED, DATA IS UNCONFIRMED Confirmed by QUIRINO NEWMAN, NANCIE ([id number]), design editor LEONCIO NAIR ([id number] on 11/27/2017 1:10:40 PM Referred By: GABRIELA Confirmed By:NANCIE WIN MD
[2017-11-21] MEDS: Nepro Liquid 120 ML LIQUID PO ×2 (14:39→23:05)
[2017-11-21] MEDS: Polyethylene Glycol 3350 17 GM PACKET PO (16:22)
[2017-11-21] MEDS: Senna Tablet 2 TABLET PO (16:22)
[2017-11-21 17:30] LABS: Bedside Glucose 138 mg/dL (70-110)
[2017-11-21] MEDS: Atorvastatin Calcium 40 MG Tablet PO (22:58)
[2017-11-21 23:31] LABS: Bedside Glucose 132 mg/dL (70-110)
[2017-11-22] VITALS (10 sets, daily range): BP systolic 149–151; BP diastolic 41–72; PULSE 61–85; RESP 16–20; TEMP 36.4–36.8; O2SAT 89–97
[2017-11-22] MEDS: CYCLOBENZAPRINE HCL 5 MG TABLET PO ×2 (00:39→15:34)
[2017-11-22] MEDS: oxyCODONE 5 MG Tablet PO ×3 (03:10→13:54)
[2017-11-22] MEDS: Acetaminophen 500 MG Tablet 1000 MG PO ×2 (05:03→13:54)
[2017-11-22 06:13] LABS: Albumin, Serum 2.7 g/dL (3.2-5.0); BUN 27 mg/dL (7-18); BUN/Creat Ratio 9.1 RATIO (10-20); Calcium,Total 8.3 mg/dL (8.5-10.1); Chloride 95 mmol/L (98-107); Creatinine, Serum 2.96 mg/dL (0.55-1.02); EST Glomerular Filtration Rate 16 mL/min (>60); Est Glom Filt Rate - Afr Amer 20 mL/min (>60); Glucose 85 mg/dL (74-106); Phosphorus 4.2 mg/dL (2.5-4.9); Potassium 4.2 mmol/L (3.5-5.1); Sodium Level 134 mmol/L (136-145)
[2017-11-22 07:00] LABS: Bedside Glucose 63 mg/dL (70-110)
[2017-11-22 07:30] LABS: Bedside Glucose 79 mg/dL (70-110)
[2017-11-22] MEDS: Isosorbide Mononitrate 60 MG Tablet PO (08:45)
[2017-11-22] MEDS: Calcium Acetate 667 MG Capsule 1334 MG PO ×2 (08:45→12:26)
[2017-11-22] MEDS: Losartan Potassium 50 MG Tablet PO (08:46)
[2017-11-22] MEDS: Docusate Sodium 100 MG Capsule PO (08:46)
[2017-11-22] MEDS: Carvedilol 3.125 MG TABLET PO (08:46)
[2017-11-22] MEDS: Aspirin E.C. 81 MG Tablet PO (08:46)
[2017-11-22] MEDS: Pantoprazole Sodium 40 MG Tablet PO (08:46)
--- NOTE | 2017-11-22 08:46 | PCM.PN.REN ---
Patient Problems: Active and Suspected Problems (Last Reviewed 08/21/17 @ 14:33 by Pat Gomez) Hypotension (Acute) Subjective: complains of pain in legs - Physical Exam General: Alert, Oriented x3, Cooperative Lungs: Clear to auscultation Cardiovascular: Regular rate Abdomen: Bowel Sounds Present, Soft, Non Tender, Non-Distended Extremities: No edema Psych/Mental Status: Normal Affect, Appropriate, Alert and oriented to time, place, person, mood and affect Vital Signs Temp Pulse Resp BP Pulse Ox 97.6 F L 63 16 149/41 H 97 11/22/17 04:52 11/22/17 07:16 11/22/17 04:52 11/22/17 04:52 11/22/17 04:52 Oxygen Flow Rate (L/min) 3 Oxygen Delivery Method Nasal Cannula Weight: 89.766 kg Body Mass Index (BMI) 32.4 Intake and Output for Last 24 Hours 11/20/17 11/21/17 11/22/17 23:59 23:59 23:59 Intake Total 515 / 515 710 / 710 360 / 360 Output Total 0 / 0 0 / 0 1000 / 1000 Balance 515 / 515 710 / 710 -640 / -640 Microbiology Past 72 Hours 11/18/17 19:45 Blood Culture - Preliminary Blood Culture (Wb) - Central Line No growth in 48 hours. 11/18/17 19:50 Blood Culture - Preliminary Blood Culture (Wb) - Arm Right No growth in 48 hours. Laboratory Tests Past 24 Hrs 11/22/17 05:12 Sodium 134 L Potassium 4.2 Chloride 95 L Carbon Dioxide 28.0 BUN 27 H Creatinine 2.96 H Estim Creat Clear Calc 15.00 Est GFR (MDRD) Af Amer 20 L Est GFR (MDRD) Non-Af 16 L BUN/Creatinine Ratio 9.1 L Glucose 85 Calcium 8.3 L Phosphorus 4.2 Albumin 2.7 L POC Glucose 11/22/17 11/22/17 11/21/17 07:27 06:55 22:54 POC Glucose 79 63 L 132 H 11/21/17 11/21/17 17:15 12:09 POC Glucose 138 H 198 H Medical Necessity - Tobacco Use Smoking Status: Former smoker Tobacco Use: Non-smoker Assessment/Plan All Active Problems (Last Reviewed 08/21/17 @ 14:33 by Pat S Gomez) Hypervolemia (Acute) Hypotension (Acute) Fall (Acute) Gait instability (Acute) Pain in right ankle and joints of right foot (Acute) Ileus (Acute) Unstable angina pectoris (Acute) NSTEMI (non-ST elevated myocardial infarction) (Acute) Hyperkalemia (Acute) Chest pressure (Acute) 1. ESRD HD MWF. dialysis tomorrow. 2. Hypotension, bradycardia resolved. Increase coreg dose for hypertension. Agree with Losartan 3. Malcompliance with medications unintentional with cognitive impairment 4. DM2 a1C 7.2 5. Abdominal pain, constipation see orders 6. HTN with history of poorly controlled BP and tachycardia due to noncompliance with medications 7. Atrial flutter cardiology following
[2017-11-22] MEDS: Folic Acid/Vitamin B Comp W-C 1 Capsule 1 CAP PO (08:47)
[2017-11-22] MEDS: Clopidogrel Bisulfate 75 MG Tablet PO (08:47)
[2017-11-22] MEDS: Nepro Liquid 120 ML LIQUID PO ×2 (08:54→13:53)
[2017-11-22] MEDS: Heparin Injection (Vial) 5,000 UNIT/ML VIAL 5000 UNIT SC (08:55)
--- NOTE | 2017-11-22 11:08 | PCM.PN.CARD ---
Subjectve: Patient continues to slowly improve, no 24 hour events. She does have some mild shortness of breath laying down. Mild decreased breath sounds bilaterally with mild crackles. Lower extremity edema improving. Hemodialysis yesterday without complications or events. Telemetry negative. No anginal symptoms. Objective: Vital Signs Temp Pulse Resp BP Pulse Ox 97.6 F L 66 20 H 151/72 H 97 11/22/17 10:15 11/22/17 10:15 11/22/17 10:15 11/22/17 10:15 11/22/17 10:15 Oxygen Flow Rate (L/min) 2 Oxygen Delivery Method Nasal Cannula Weight: 197 lb 14.4 oz Body Mass Index (BMI) 32.4 Intake and Output for Last 24 Hours 11/20/17 11/21/17 11/22/17 23:59 23:59 23:59 Intake Total 515 / 515 710 / 710 360 / 360 Output Total 0 / 0 0 / 0 1000 / 1000 Balance 515 / 515 710 / 710 -640 / -640 General: Awake, Alert, Oriented x 3 HEENT: PERRL, EOMI, Sclera Non Icteric Neck: Supple, Good ROM, No Lymph Node Enlargement Lungs: Diminished Anthony Bases Cardiovascular: Regular Rhythm, Normal S1, Normal S2, No Rubs, No Gallops Murmur Murmur: Grade 3/6, Holosystolic Vascular: No Carotid Bruits, Normal Femoral Pulses, Normal Radial Pulses, Normal Dorsalis Pedal Pulse, Normal Posterior Tibial Pulses Abdomen: Bowel Sounds Present, Soft, Non Tender, No HSM, No Organomegaly Extremities: No Cyanosis, No Clubbing, No edema Neurological: No Focal Motor or Sensory Deficit 11/22/17 05:12: Sodium 134 L, Potassium 4.2, Chloride 95 L, Carbon Dioxide 28.0, BUN 27 H, Creatinine 2.96 H, Est GFR (MDRD) Af Amer 20 L, Est GFR (MDRD) Non-Af 16 L, BUN/Creatinine Ratio 9.1 L, Glucose 85, Calcium 8.3 L, Phosphorus 4.2 Rhythm: EKG: ECHO: Stress Test: Cardiac Cath: PCI: CT Surgery: Holter monitor: EPS: PPM: CXR: Chest CT Scan: Medical Necessity - Tobacco Use Smoking Status: Former smoker Tobacco Use: Non-smoker Assessment/Plan 1. Congestive heart failure: After discussing with the patient her reasons for CHF exacerbation, it appears that she was noncompliant with her medications for the past 3 months, but compliant with hemodialysis, and compliant with her fluid restrictions for the most part. Her CT scan suggest ascites and a 1.9 cm mass located in the central parenchyma of the liver as well as thickening of her bowel. MRI suggests that her liver mass is a hemangioma and would not recommend additional workup at this time. I started her on Coreg 3.125 mg p.o. twice daily yesterday, she is back on her Imdur 60 mg p.o. twice daily, and would recommend restarting losartan 25 mg p.o. daily and titrating it up as her blood pressure tolerates. Would hold off on clonidine at this time as this can contribute to bradycardia while we are trying to titrate up her Coreg. Recommend checking a chest x-ray to determine if she has pleural effusions as a result of her aggressive IV fluid resuscitation. She had hemodialysis yesterday with fluid removal but still complains of some difficulty breathing laying down flat. The patient continues to have fluid would recommend 1 more day in the hospital or an additional dialysis for fluid removal today. Would avoid calcium channel blockers unless absolutely necessary as this promotes constipation which the patient has had trouble with. 2. Coronary artery disease: Patient has no anginal symptoms at this time, and has known coronary disease with nonobstructive disease of her left main and LAD, and occluded anomalous left circumflex, and disease of her proximal and distal RCA which was to be evaluated and corrected at [facility] for a 2017. Patient has had no anginal symptoms, and minimal troponin release. At this point I do not recommend repeat catheterization at this time. 3. Atrial flutter: Patient has chronic atrial flutter and was on amiodarone therapy. This may have also contributed to the patient's bradycardia. Will hold off on replacing amiodarone at this time unless and until the patient's heart rate becomes uncontrolled with maximum Coreg. 4. Thank you very much for the opportunity to participate in the cardiac care of your patient. Patient may be transferred to floor after hemodialysis is complete assuming she is hemodynamically stable. Code Visit Inpatient E&M: 58999 Subs Hosp L2
[2017-11-22 11:10] LABS: Bedside Glucose 143 mg/dL (70-110)
--- NOTE | 2017-11-22 11:12 | PN.CARD_ITS ---
Subjectve: Patient continues to slowly improve, no 24 hour events. She does have some mild shortness of breath laying down. Mild decreased breath sounds bilaterally with mild crackles. Lower extremity edema improving. Hemodialysis yesterday without complications or events. Telemetry negative. No anginal symptoms. Objective: Vital Signs Temp Pulse Resp BP Pulse Ox 97.6 F L 66 20 H 151/72 H 97 11/22/17 10:15 11/22/17 10:15 11/22/17 10:15 11/22/17 10:15 11/22/17 10:15 Oxygen Flow Rate (L/min) 2 Oxygen Delivery Method Nasal Cannula Weight: 197 lb 14.4 oz Body Mass Index (BMI) 32.4 Intake and Output for Last 24 Hours 11/20/17 11/21/17 11/22/17 23:59 23:59 23:59 Intake Total 515 / 515 710 / 710 360 / 360 Output Total 0 / 0 0 / 0 1000 / 1000 Balance 515 / 515 710 / 710 -640 / -640 General: Awake, Alert, Oriented x 3 HEENT: PERRL, EOMI, Sclera Non Icteric Neck: Supple, Good ROM, No Lymph Node Enlargement Lungs: Diminished Anthony Bases Cardiovascular: Regular Rhythm, Normal S1, Normal S2, No Rubs, No Gallops Murmur Murmur: Grade 3/6, Holosystolic Vascular: No Carotid Bruits, Normal Femoral Pulses, Normal Radial Pulses, Normal Dorsalis Pedal Pulse, Normal Posterior Tibial Pulses Abdomen: Bowel Sounds Present, Soft, Non Tender, No HSM, No Organomegaly Extremities: No Cyanosis, No Clubbing, No edema Neurological: No Focal Motor or Sensory Deficit 11/22/17 05:12: Sodium 134 L, Potassium 4.2, Chloride 95 L, Carbon Dioxide 28.0 , BUN 27 H, Creatinine 2.96 H, Est GFR (MDRD) Af Amer 20 L, Est GFR (MDRD) Non- Af 16 L, BUN/Creatinine Ratio 9.1 L, Glucose 85, Calcium 8.3 L, Phosphorus 4.2 Rhythm: EKG: ECHO: Stress Test: Cardiac Cath: PCI: CT Surgery: Holter monitor: EPS: PPM: CXR: Chest CT Scan: Medical Necessity - Tobacco Use Smoking Status: Former smoker Tobacco Use: Non-smoker Assessment/Plan 1. Congestive heart failure: After discussing with the patient her reasons for CHF exacerbation, it appears that she was noncompliant with her medications for the past 3 months, but compliant with hemodialysis, and compliant with her fluid restrictions for the most part. Her CT scan suggest ascites and a 1.9 cm mass located in the central parenchyma of the liver as well as thickening of her bowel. MRI suggests that her liver mass is a hemangioma and would not recommend additional workup at this time. I started her on Coreg 3.125 mg p.o. twice daily yesterday, she is back on her Imdur 60 mg p.o. twice daily, and would recommend restarting losartan 25 mg p.o. daily and titrating it up as her blood pressure tolerates. Would hold off on clonidine at this time as this can contribute to bradycardia while we are trying to titrate up her Coreg. Recommend checking a chest x-ray to determine if she has pleural effusions as a result of her aggressive IV fluid resuscitation. She had hemodialysis yesterday with fluid removal but still complains of some difficulty breathing laying down flat. The patient continues to have fluid would recommend 1 more day in the hospital or an additional dialysis for fluid removal today. Would avoid calcium channel blockers unless absolutely necessary as this promotes constipation which the patient has had trouble with. 2. Coronary artery disease: Patient has no anginal symptoms at this time, and has known coronary disease with nonobstructive disease of her left main and LAD , and occluded anomalous left circumflex, and disease of her proximal and distal RCA which was to be evaluated and corrected at [facility] for a 2017. Patient has had no anginal symptoms, and minimal troponin release. At this point I do not recommend repeat catheterization at this time. 3. Atrial flutter: Patient has chronic atrial flutter and was on amiodarone therapy. This may have also contributed to the patient's bradycardia. Will hold off on replacing amiodarone at this time unless and until the patient's heart rate becomes uncontrolled with maximum Coreg. 4. Thank you very much for the opportunity to participate in the cardiac care of your patient. Patient may be transferred to floor after hemodialysis is complete assuming she is hemodynamically stable. Code Visit Inpatient E&M: 93984 Subs Hosp L2
--- NOTE | 2017-11-22 11:12 | RAD_ITS ---
STUDY: X-RAY CHEST REASON FOR EXAM: Female, 72 years old. Shortness of breath. TECHNIQUE: AP and lateral views of the chest. COMPARISON: Comparison is made with prior study dated November 18, 2017. FINDINGS: A right-sided internal jugular venous catheter seen with the tip in the midportion of the superior vena cava. This is unchanged. EKG electrodes are seen. There now is evidence of increased markings in the right midlung as well as in the left lower lobe suggestive of either bibasilar atelectasis and/or infiltrates. This is superimposed on a mild degree of vascular congestion. Blunting of the left costophrenic angle. There is moderate cardiac enlargement. Normal mediastinum and roxy. Normal visualized pulmonary arteries. There is atherosclerotic calcification of the aortic arch with tortuosity. There are diffuse degenerative changes of the visualized thoracic spine. Normal visualized ribs, clavicles, and shoulders. There is no demonstrated abnormality of the visualized soft tissue structures of the upper abdomen. RAD/Chest PA and Lateral IMPRESSION: Mild degree of vascular congestion with superimposed atelectasis and/or infiltrate in the right midlung and left lower lobe. Electronically Signed: Eric Mckay MD at 15:01 EDT Tel [phone], Service support ,
--- NOTE | 2017-11-22 13:10 | PCM.DC ---
- Discharge Diagnoses Current Active Problems: Current Active and Chronic Problems (Last Reviewed 08/21/17 @ 14:33 by Pat Gomez) Hypotension (Acute) You will use the following diet at home:: Renal (restricted protein/sodium) Discharge Activity: Return to Normal Activity Call your doctor if you observe: Shortness of breath, Dizziness, Fainting spells, Chest pain, Increased palpitations (irregular heartbeat) Allergies/Adverse Reactions: Allergies lisinopril Allergy (Verified 11/17/17 14:32) Swelling nebivolol HCl [From Bystolic] Adverse Reaction (Verified 11/17/17 14:32) bradycardia BRADYCARDIA Medications to take at Discharge Acetaminophen [Tylenol] 650 mg PO Q4H PRN 07/27/17 Cholecalciferol (Vitamin D3) [Vitamin D3] 5,000 unit PO MOWEFR 07/27/17 Clopidogrel Bisulfate [Plavix] 75 mg PO DAILY 07/27/17 Cyclobenzaprine HCl 5 mg PO BID PRN 07/27/17 Gabapentin [Neurontin] 100 mg PO TID 07/27/17 Insulin Aspart [Novolog Flexpen] See Protocol [facility] ACHS 07/27/17 aspirin 81 mg tablet,delayed release 81 mg PO .daily tab 08/21/17 atorvastatin 10 mg tablet 40 mg PO QDAY 08/21/17 isosorbide mononitrate ER 60 mg tablet,extended release 24 hr 60 mg PO BID 08/21/17 oxycodone 7.5 mg tablet,oral ONLY (not for feeding tubes) 7.5 mg PO Q4H 08/21/17 pantoprazole 40 mg tablet,delayed release 40 mg PO QDAY 08/21/17 promethazine 12.5 mg tablet 12.5 mg PO Q6H PRN 08/21/17 vitamin B complex and vitamin C no.20-folic acid 1 mg capsule 1 cap PO QDAY 08/21/17 Docusate Sodium [Colace] 100 mg PO DAILY 11/17/17 Calcium Acetate [Phoslo Gel Cap] 1,334 mg PO TIDCM #90 cap 11/22/17 Carvedilol [Coreg (Beta Socorro)] 3.125 mg PO BID #60 tab 11/22/17 Insulin Detemir [Levemir] 10 unit SQ QHS #0 11/22/17 Lactulose [Chronulac] 20 gm PO DAILY PRN #30 udc 11/22/17 Losartan Potassium [Cozaar] 50 mg PO DAILY tablet 11/22/17 The following prescriptions were given: Lactulose [Chronulac] 20 gm PO DAILY PRN #30 udc PRN Reason: Constipation Carvedilol [Coreg (Beta Socorro)] 3.125 mg PO BID #60 tab Calcium Acetate [Phoslo Gel Cap] 1,334 mg PO TIDCM #90 cap Primary Care Physician: Robyn Sharma [ALLIED HEALTH PROFESSIONAL] - Please follow up with your Primary Care Physician in: 1 Week Test Results: Please Follow Up With: Timothy Frye MD - See POOL ATTENDANT/PA for follow up When: 1-2 Weeks Please Follow Up With: Anuradha Crawley DO When: As scheduled Proposed Discharge Date: 11/22/17
--- NOTE | 2017-11-22 13:13 | DCINST_ITS ---
- Discharge Diagnoses Current Active Problems: Current Active and Chronic Problems (Last Reviewed 08/21/17 @ 14:33 by Pat Gomez) Hypotension (Acute) You will use the following diet at home:: Renal (restricted protein/sodium) Discharge Activity: Return to Normal Activity Call your doctor if you observe: Shortness of breath, Dizziness, Fainting spells , Chest pain, Increased palpitations (irregular heartbeat) Allergies/Adverse Reactions: Allergies lisinopril Allergy (Verified 11/17/17 14:32) Swelling nebivolol HCl [From Bystolic] Adverse Reaction (Verified 11/17/17 14:32) bradycardia BRADYCARDIA Medications to take at Discharge Acetaminophen [Tylenol] 650 mg PO Q4H PRN 07/27/17 Cholecalciferol (Vitamin D3) [Vitamin D3] 5,000 unit PO MOWEFR 07/27/17 Clopidogrel Bisulfate [Plavix] 75 mg PO DAILY 07/27/17 Cyclobenzaprine HCl 5 mg PO BID PRN 07/27/17 Gabapentin [Neurontin] 100 mg PO TID 07/27/17 Insulin Aspart [Novolog Flexpen] See Protocol [facility] ACHS 07/27/17 aspirin 81 mg tablet,delayed release 81 mg PO .daily tab 08/21/17 atorvastatin 10 mg tablet 40 mg PO QDAY 08/21/17 isosorbide mononitrate ER 60 mg tablet,extended release 24 hr 60 mg PO BID 08/21 oxycodone 7.5 mg tablet,oral ONLY (not for feeding tubes) 7.5 mg PO Q4H pantoprazole 40 mg tablet,delayed release 40 mg PO QDAY 08/21/17 promethazine 12.5 mg tablet 12.5 mg PO Q6H PRN 08/21/17 vitamin B complex and vitamin C no.20-folic acid 1 mg capsule 1 cap PO QDAY 08/05 Docusate Sodium [Colace] 100 mg PO DAILY 11/17/17 Calcium Acetate [Phoslo Gel Cap] 1,334 mg PO TIDCM #90 cap 11/22/17 Carvedilol [Coreg (Beta Socorro)] 3.125 mg PO BID #60 tab 11/22/17 Insulin Detemir [Levemir] 10 unit SQ QHS #0 11/22/17 Lactulose [Chronulac] 20 gm PO DAILY PRN #30 udc 11/22/17 Losartan Potassium [Cozaar] 50 mg PO DAILY tablet 11/22/17 The following prescriptions were given: Lactulose [Chronulac] 20 gm PO DAILY PRN #30 udc PRN Reason: Constipation Carvedilol [Coreg (Beta Socorro)] 3.125 mg PO BID #60 tab Calcium Acetate [Phoslo Gel Cap] 1,334 mg PO TIDCM #90 cap Primary Care Physician: Robyn Sharma [ALLIED HEALTH PROFESSIONAL] - Please follow up with your Primary Care Physician in: 1 Week Test Results: Please Follow Up With: Timothy Frye MD - See ROTARY DERRICK OPERATOR/PA for follow up When: 1-2 Weeks Please Follow Up With: Anuradha Crawley DO When: As scheduled Proposed Discharge Date: 11/22/17
--- NOTE | 2017-11-22 13:17 | PCM.DC.SUM ---
<Ines Lorenz - Last Filed: 11/22/17 13:49> Discharge Date and Diagnosis Date of Admission: 11/17/17 Date of Discharge: 11/22/17 - Primary Discharge Diagnosis Active and Suspected Problems (Last Reviewed 08/21/17 @ 14:33 by Pat Gomez) 1. Acute hypoxia on chronic hypoxic respiratory failure secondary to acute on chronic fluid overload secondary to end-stage renal disease on hemodialysis 2. Combined shock (cardiac, hypovolemia and polypharmacy) resolved. 3. NSTEMI-demand ischemia secondary to #1. 4. Hyperkalemia-secondary to end-stage renal disease, resolved with dialysis 5. History of noncompliance with medication and treatment regimen. - Secondary Discharge Diagnosis Chronic Problems (Last Reviewed 08/21/17 @ 14:33 by Pat Gomez) Fracture of fifth metatarsal bone of right foot (Chronic) Other specified peripheral vascular diseases (Chronic) Afib (Chronic) Congenital coronary artery anomaly (Chronic) S/P PTCA (percutaneous transluminal coronary angioplasty) (Chronic) Bradycardia (Chronic) CAD (coronary artery disease) (Chronic) Diabetes mellitus, type II (Chronic) Hyperlipidemia (Chronic) Hypothyroidism (Chronic) Anemia in chronic kidney disease (Chronic) Hypertension (Chronic) End stage renal disease on dialysis (Chronic) Hospital Course and Treatment Imaging Results: Diagnostic Data Abdomen/Pelvis CT 11/17/17 15:21 IMPRESSION: [id number] ascites in all quadrants. 1.9 cm low-attenuation mass in the central liver, axial image 37. Suggest further evaluation perhaps with contrast MRI, and consider biopsy. Severe renal atrophy. Cannot occluded segments of bowel wall thickening. Electronically Signed: Ramos Morales MD at 17:08 EDT , Service support , Chest CTA 11/17/17 15:21 IMPRESSION: 1. No evidence of pulmonary embolism or thoracic aortic dissection 2. Stable scarring in both lung bases without acute airspace disease Electronically Signed: Jason Danielle DO at 17:09 EDT Tel , Service support , Liver Ultrasound 11/19/17 08:22 IMPRESSION: 2.3 cm echogenic mass in the right hepatic lobe. Ascites. Electronically Signed: Ramos Morales MD at 19:35 EDT , Service support , Abdomen MRI 11/20/17 08:10 IMPRESSION: The liver lesion is most consistent with a benign hemangioma. Hepatosplenomegaly. Ascites. Pleural effusions and pericardial effusion. Electronically Signed: Diogo Rosen at 12:58 EDT Tel , Service support , Dr. Crawley, nephrology Dr. Reinoso, timber management assistant Dr. Dixon, cardiology Operations: - Procedures: 2-D Echocardiogram Summary of Care Provided: The patient is a 72 year old F admitted 11/17/2017 due to worsening shortness of breath. She is a past medical history of end-stage renal disease on hemodialysis, atrial fibrillation/atrial flutter, CAD status post PTCA, peripheral vascular disease, type 2 diabetes mellitus, hyperlipidemia, hypertension, anemia of chronic disease, hypothyroidism, chronic hypoxic respiratory failure. Patient has a history of medication and treatment noncompliance. She is on dialysis Sunday. Patient underwent hemodialysis 11/18/2017 with 3.8 L of fluid removal. She then developed combined shock suspected secondary to cardiac, hypovolemia and polypharmacy. She was stabilized with levophed. Noted to have NSTEMI secondary to demand ischemia as well. Cardiology consulted. Home cardiac medications adjusted. Patient will continue Coreg 3.125 mg twice daily, Imdur 60 mg daily and losartan 50 mg daily. Repeat cardiac catheterization not found to be necessary. Patient denies chest pain. Echocardiogram showed an EF of 55%, stage III diastolic dysfunction, severe tricuspid valve insufficiency, mild mitral valve insufficiency. Patient has a history of chronic atrial flutter. Amiodarone discontinued secondary to bradycardia. Patient will continue Coreg with titration as found necessary. Continue aspirin 81 mg daily and Plavix 75 mg daily. Patient will follow up with Dr. Frye in 1-2 weeks. Patient follows with Dr. Crawley for end-stage renal disease and is on hemodialysis regimen Sunday, Sunday, Sunday. She will continue outpatient follow-up. Patient's Levemir regimen was decreased to 10 units nightly secondary to episode of hypoglycemia. Glucose has remained stable. MRI of abdomen completed secondary to liver mass as noted on liver ultrasound. Liver lesion consistent with benign hemangioma, hepatosplenomegaly, ascites. Again, patient will need continued compliance with hemodialysis regimen. Patient is stable at time of discharge home with home health. She will continue follow-up with primary care physician, nephrology, cardiology. Patient seen exam prior to discharge. Alert, oriented, no acute distress. Heart rate with atrial flutter, rate controlled. Lungs clear, diminished. Neuro grossly intact. Abdomen soft, nontender, mild distention. Skin intact. +2 bilateral lower extremity edema. Vital signs stable. This patient was seen by AYDIN Funez under the supervision of Dr. Simmons. Discharge Diet: 8 Cup Fluid Restriciton, Carb Control Diet, Renal Diet Discharge Activity: Return to Normal Activity Call your doctor if you observe: Shortness of breath, Dizziness, Fainting spells, Chest pain, Increased palpitations (irregular heartbeat) Home Medications: Medications to take at Discharge Acetaminophen [Tylenol] 650 mg PO Q4H PRN 07/27/17 Cholecalciferol (Vitamin D3) [Vitamin D3] 5,000 unit PO MOWEFR 07/27/17 Clopidogrel Bisulfate [Plavix] 75 mg PO DAILY 07/27/17 Cyclobenzaprine HCl 5 mg PO BID PRN 07/27/17 Gabapentin [Neurontin] 100 mg PO TID 07/27/17 Insulin Aspart [Novolog Flexpen] See Protocol [facility] 07/27/17 aspirin 81 mg tablet,delayed release 81 mg PO .daily tab 08/21/17 atorvastatin 10 mg tablet 40 mg PO QDAY 08/21/17 isosorbide mononitrate ER 60 mg tablet,extended release 24 hr 60 mg PO BID 08/21/17 oxycodone 7.5 mg tablet,oral ONLY (not for feeding tubes) 7.5 mg PO Q4H 08/21/17 pantoprazole 40 mg tablet,delayed release 40 mg PO QDAY 08/21/17 promethazine 12.5 mg tablet 12.5 mg PO Q6H PRN 08/21/17 vitamin B complex and vitamin C no.20-folic acid 1 mg capsule 1 cap PO QDAY 08/21/17 Docusate Sodium [Colace] 100 mg PO DAILY 11/17/17 Calcium Acetate [Phoslo Gel Cap] 1,334 mg PO TIDCM #90 cap 11/22/17 Carvedilol [Coreg (Beta Socorro)] 3.125 mg PO BID #60 tab 11/22/17 Insulin Detemir [Levemir] 10 unit SQ QHS #0 11/22/17 Lactulose [Chronulac] 20 gm PO DAILY PRN #30 udc 11/22/17 Losartan Potassium [Cozaar] 50 mg PO DAILY tablet 11/22/17 Following Prescrptions Were Given to Patient: Lactulose [Chronulac] 20 gm PO DAILY PRN #30 udc PRN Reason: Constipation Carvedilol [Coreg (Beta Socorro)] 3.125 mg PO BID #60 tab Calcium Acetate [Phoslo Gel Cap] 1,334 mg PO TIDCM #90 cap Primary Care Physician: Robyn Sharma [ALLIED HEALTH PROFESSIONAL] - Please follow up with your Primary Care Physician in: 1 Week Please Follow Up With: Timothy Frye MD - See COKE OVEN MASON/PA for follow up When: 1-2 Weeks Please Follow Up With: Anuradha Crawley DO When: As scheduled Disposition: Home with Home Health Minutes spent on discharge:: 35 Patient Condition:: Stable Medical Necessity - Tobacco Use Smoking Status: Former smoker Tobacco Use: Non-smoker Meaningful Use Info Meaningful Use Diagnoses (Choose all that apply): None applicable <Becka Simmons - Last Filed: 11/22/17 15:23> Discharge Date and Diagnosis - Secondary Discharge Diagnosis Chronic Problems (Last Reviewed 08/21/17 @ 14:33 by Pat Gomez) Fracture of fifth metatarsal bone of right foot (Chronic) Other specified peripheral vascular diseases (Chronic) Afib (Chronic) Congenital coronary artery anomaly (Chronic) S/P PTCA (percutaneous transluminal coronary angioplasty) (Chronic) Bradycardia (Chronic) CAD (coronary artery disease) (Chronic) Diabetes mellitus, type II (Chronic) Hyperlipidemia (Chronic) Hypothyroidism (Chronic) Anemia in chronic kidney disease (Chronic) Hypertension (Chronic) End stage renal disease on dialysis (Chronic) Hospital Course and Treatment Imaging Results: 11/22/17 11:12 CXR [Chest PA and Lateral] [RAD] Urgent Summary of Care Provided: The patient is a 72 year old F [] Code Visit Inpatient E&M: 95133 Disch Hosp
--- NOTE | 2017-11-22 13:35 | DS.PCM_ITS ---
<Ines Lorenz - Last Filed: 11/22/17 13:49> Discharge Date and Diagnosis Date of Admission: 11/17/17 Date of Discharge: 11/22/17 - Primary Discharge Diagnosis Active and Suspected Problems (Last Reviewed 08/21/17 @ 14:33 by Pat Gomez) 1. Acute hypoxia on chronic hypoxic respiratory failure secondary to acute on chronic fluid overload secondary to end-stage renal disease on hemodialysis 2. Combined shock (cardiac, hypovolemia and polypharmacy) resolved. 3. NSTEMI-demand ischemia secondary to #1. 4. Hyperkalemia-secondary to end-stage renal disease, resolved with dialysis 5. History of noncompliance with medication and treatment regimen. - Secondary Discharge Diagnosis Chronic Problems (Last Reviewed 08/21/17 @ 14:33 by Pat Gomez) Fracture of fifth metatarsal bone of right foot (Chronic) Other specified peripheral vascular diseases (Chronic) Afib (Chronic) Congenital coronary artery anomaly (Chronic) S/P PTCA (percutaneous transluminal coronary angioplasty) (Chronic) Bradycardia (Chronic) CAD (coronary artery disease) (Chronic) Diabetes mellitus, type II (Chronic) Hyperlipidemia (Chronic) Hypothyroidism (Chronic) Anemia in chronic kidney disease (Chronic) Hypertension (Chronic) End stage renal disease on dialysis (Chronic) Hospital Course and Treatment Imaging Results: Diagnostic Data Abdomen/Pelvis CT 11/17/17 15:21 IMPRESSION: [id number] ascites in all quadrants. 1.9 cm low-attenuation mass in the central liver, axial image 37. Suggest further evaluation perhaps with contrast MRI, and consider biopsy. Severe renal atrophy. Cannot occluded segments of bowel wall thickening. Electronically Signed: Ramos Morales MD at 17:08 EDT , Service support , Chest CTA 11/17/17 15:21 IMPRESSION: 1. No evidence of pulmonary embolism or thoracic aortic dissection 2. Stable scarring in both lung bases without acute airspace disease Electronically Signed: Jason Danielle DO at 17:09 EDT Tel , Service support , Liver Ultrasound 11/19/17 08:22 IMPRESSION: 2.3 cm echogenic mass in the right hepatic lobe. Ascites. Electronically Signed: Ramos Morales MD at 19:35 EDT , Service support , Abdomen MRI 11/20/17 08:10 IMPRESSION: The liver lesion is most consistent with a benign hemangioma. Hepatosplenomegaly. Ascites. Pleural effusions and pericardial effusion. Electronically Signed: Diogo Rosen at 12:58 EDT Tel , Service support , Dr. Crawley, nephrology Dr. Reinoso, stabber Dr. Dixon, cardiology Operations: - Procedures: 2-D Echocardiogram Summary of Care Provided: The patient is a 72 year old F admitted 11/17/2017 due to worsening shortness of breath. She is a past medical history of end-stage renal disease on hemodialysis, atrial fibrillation/atrial flutter, CAD status post PTCA, peripheral vascular disease, type 2 diabetes mellitus, hyperlipidemia, hypertension, anemia of chronic disease, hypothyroidism, chronic hypoxic respiratory failure. Patient has a history of medication and treatment noncompliance. She is on dialysis Sunday. Patient underwent hemodialysis 11/18/2017 with 3.8 L of fluid removal. She then developed combined shock suspected secondary to cardiac, hypovolemia and polypharmacy. She was stabilized with levophed. Noted to have NSTEMI secondary to demand ischemia as well. Cardiology consulted. Home cardiac medications adjusted. Patient will continue Coreg 3.125 mg twice daily, Imdur 60 mg daily and losartan 50 mg daily. Repeat cardiac catheterization not found to be necessary. Patient denies chest pain. Echocardiogram showed an EF of 55%, stage III diastolic dysfunction, severe tricuspid valve insufficiency, mild mitral valve insufficiency. Patient has a history of chronic atrial flutter. Amiodarone discontinued secondary to bradycardia. Patient will continue Coreg with titration as found necessary. Continue aspirin 81 mg daily and Plavix 75 mg daily. Patient will follow up with Dr. Frye in 1-2 weeks. Patient follows with Dr. Crawley for end-stage renal disease and is on hemodialysis regimen Sunday, Sunday, Sunday. She will continue outpatient follow-up. Patient's Levemir regimen was decreased to 10 units nightly secondary to episode of hypoglycemia. Glucose has remained stable. MRI of abdomen completed secondary to liver mass as noted on liver ultrasound. Liver lesion consistent with benign hemangioma, hepatosplenomegaly, ascites. Again, patient will need continued compliance with hemodialysis regimen. Patient is stable at time of discharge home with home health. She will continue follow-up with primary care physician , nephrology, cardiology. Patient seen exam prior to discharge. Alert, oriented, no acute distress. Heart rate with atrial flutter, rate controlled. Lungs clear, diminished. Neuro grossly intact. Abdomen soft, nontender, mild distention. Skin intact. +2 bilateral lower extremity edema. Vital signs stable. This patient was seen by AYDIN Funez under the supervision of Dr. Simmons. Discharge Diet: 8 Cup Fluid Restriciton, Carb Control Diet, Renal Diet Discharge Activity: Return to Normal Activity Call your doctor if you observe: Shortness of breath, Dizziness, Fainting spells , Chest pain, Increased palpitations (irregular heartbeat) Home Medications: Medications to take at Discharge Acetaminophen [Tylenol] 650 mg PO Q4H PRN 07/27/17 Cholecalciferol (Vitamin D3) [Vitamin D3] 5,000 unit PO MOWEFR 07/27/17 Clopidogrel Bisulfate [Plavix] 75 mg PO DAILY 07/27/17 Cyclobenzaprine HCl 5 mg PO BID PRN 07/27/17 Gabapentin [Neurontin] 100 mg PO TID 07/27/17 Insulin Aspart [Novolog Flexpen] See Protocol [facility] 07/27/17 aspirin 81 mg tablet,delayed release 81 mg PO .daily tab 08/21/17 atorvastatin 10 mg tablet 40 mg PO QDAY 08/21/17 isosorbide mononitrate ER 60 mg tablet,extended release 24 hr 60 mg PO BID 08/21 oxycodone 7.5 mg tablet,oral ONLY (not for feeding tubes) 7.5 mg PO Q4H pantoprazole 40 mg tablet,delayed release 40 mg PO QDAY 08/21/17 promethazine 12.5 mg tablet 12.5 mg PO Q6H PRN 08/21/17 vitamin B complex and vitamin C no.20-folic acid 1 mg capsule 1 cap PO QDAY 08/05 Docusate Sodium [Colace] 100 mg PO DAILY 11/17/17 Calcium Acetate [Phoslo Gel Cap] 1,334 mg PO TIDCM #90 cap 11/22/17 Carvedilol [Coreg (Beta Socorro)] 3.125 mg PO BID #60 tab 11/22/17 Insulin Detemir [Levemir] 10 unit SQ QHS #0 11/22/17 Lactulose [Chronulac] 20 gm PO DAILY PRN #30 udc 11/22/17 Losartan Potassium [Cozaar] 50 mg PO DAILY tablet 11/22/17 Following Prescrptions Were Given to Patient: Lactulose [Chronulac] 20 gm PO DAILY PRN #30 udc PRN Reason: Constipation Carvedilol [Coreg (Beta Socorro)] 3.125 mg PO BID #60 tab Calcium Acetate [Phoslo Gel Cap] 1,334 mg PO TIDCM #90 cap Primary Care Physician: Robyn Sharma [ALLIED HEALTH PROFESSIONAL] - Please follow up with your Primary Care Physician in: 1 Week Please Follow Up With: Timothy Frye MD - See [employer]/PA for follow up When: 1-2 Weeks Please Follow Up With: Anuradha Crawley DO When: As scheduled Disposition: Home with Home Health Minutes spent on discharge:: 35 Patient Condition:: Stable Medical Necessity - Tobacco Use Smoking Status: Former smoker Tobacco Use: Non-smoker Meaningful Use Info Meaningful Use Diagnoses (Choose all that apply): None applicable <Becka Simmons - Last Filed: 11/22/17 15:23> Discharge Date and Diagnosis - Secondary Discharge Diagnosis Chronic Problems (Last Reviewed 08/21/17 @ 14:33 by Pat Gomez) Fracture of fifth metatarsal bone of right foot (Chronic) Other specified peripheral vascular diseases (Chronic) Afib (Chronic) Congenital coronary artery anomaly (Chronic) S/P PTCA (percutaneous transluminal coronary angioplasty) (Chronic) Bradycardia (Chronic) CAD (coronary artery disease) (Chronic) Diabetes mellitus, type II (Chronic) Hyperlipidemia (Chronic) Hypothyroidism (Chronic) Anemia in chronic kidney disease (Chronic) Hypertension (Chronic) End stage renal disease on dialysis (Chronic) Hospital Course and Treatment Imaging Results: 11/22/17 11:12 CXR [Chest PA and Lateral] [RAD] Urgent Summary of Care Provided: The patient is a 72 year old F [] Code Visit Inpatient E&M: 12489 Disch Hosp
--- NOTE | 2017-11-22 13:42 | CASEMGMT ---
Addendum entered by Matilde Gonzalez 11/22/17 14:23: Per daughter, pt was in outpt therapy at [facility]. Call to [facility] to notify them that pt will be going home with [facility] and will not need outpt therapy at this time, voices understanding. Daughter updated on all at this time and voices understanding. Pt/daughter voice no further questions/concerns/needs at this time. Los JESUS CM Original Note: Per therapy, pt would benefit from [facility] and pt aware and agrees to [facility] at this time. Daughter also states concerns about transportation to dialysis and possibly aides for pt and in the future. Daughter states that pt's can drive her to dialysis but he has dementia and she is worried about him driving. Per daughter, pt makes sure that her is compliant with her meds but she is not compliant with her own meds. This [facility]IN [facility]AP[facility] offered CCN to pt/daughter and they agree at this time. Call to Eva at [facility] and she states that they can take pt at this time and order placed at this time for RN, PT/OT, SW. Call to Domo at [facility] and she is aware of pt at this time, voices understanding. Referral to CCN placed at this time. This EDIN TAPIA gave pt/daughter resources for Direction home and transportation as well as SW to go out with [facility] for pt, voice understanding. Pt/daughter voice no further questions/concerns/needs at this time. Pt also given advanced directive paperwork at this time per request. Los JESUS CM
[2017-11-22 14:11] LABS: Bedside Glucose 161 mg/dL (70-110)
--- NOTE | 2017-11-26 10:48 | CCN.REFER ---
Two voicemails left regarding CCN. Will continue to await call back.
--- NOTE | 2017-11-26 15:34 | CASEMGMT ---
RN WILLIE Discharge Follow-up Phone Call: DEX: Sunil Strata: 3 Call Date: 11/26/17 Discharge Date: 11/22/17 Time of Call: 1535 Duration: 1 min Admitting Diagnosis: Fluid overload/CHF RN WILLIE attempted to complete follow-up phone call after recent hospitalization. No answer, voice message left with return contact information. Patient was setup with [facility] at discharge.
--- NOTE | 2017-11-28 13:30 | CCN.REFER ---
RECEIVED PHONE CALL FROM PATIENT'S DAUGHTER STATING THAT PATIENT FELL THIS MORNING, AND SHE IS CURRENTLY IN ICU AT [facility] WITH FRACTURED EYE SOCKET AND CRITICALLY HIGH POTASSIUM. CCN SERVICES WILL BE PLACED ON HOLD UNTIL PATIENT IS HOME AND STABLE. DAUGHTER TO CALL CCN TO START SERVICES ONCE HOME.
== END 2017-11-22 16:05 | disposition home health service (06) | DRG 280 ==
LOC: ED 16:34 → PCU 18:15 → ICU 11-18 13:57 → PCU 11-22 07:18
PROVIDERS: Internal Medicine Critical Care Medicine; Internal Medicine Nephrology; Admitting Provider Internal Medicine; Emergency Provider Emergency Medicine; Family Provider Internal Medicine; PCP Internal Medicine; Visit Provider Internal Medicine
DX: I13.2 Hypertensive heart and chronic kidney disease with heart failure and with stage 5 chronic kidney disease, or end stage renal disease (principal); N18.6 End stage renal disease; I21.A1 Myocardial infarction type 2; R57.0 Cardiogenic shock; R57.1 Hypovolemic shock; J96.11 Chronic respiratory failure with hypoxia; I48.92 Unspecified atrial flutter; E03.9 Hypothyroidism, unspecified; E87.5 Hyperkalemia; E78.5 Hyperlipidemia, unspecified; I25.110 Atherosclerotic heart disease of native coronary artery with unstable angina pectoris; D63.1 Anemia in chronic kidney disease; E11.22 Type 2 diabetes mellitus with diabetic chronic kidney disease; I73.9 Peripheral vascular disease, unspecified; Z91.14 Patient's other noncompliance with medication regimen; I25.2 Old myocardial infarction; Z99.2 Dependence on renal dialysis; Z87.891 Personal history of nicotine dependence; Z79.4 Long term (current) use of insulin; Z99.81 Dependence on supplemental oxygen
CPT/HCPCS: 36415; 36600; 71045; 71046; 71275; 74177; 74181; 76705; 80048; 80053; 80061; 80069; 82040; 82803; 82962; 83036; 83735; 83880; 84100; 84484; 85025; 85027; 87040; 87641; 90937; 93005; 93306; 97110; 97116; 97162; 97166; 97530; 97535; 97802; 99283; J7030; J7040; J7050; Q9967; A4216; C1751; G0257; J2405; J3490

== ENCOUNTER → 2017-12-19 06:28 | Outpatient (CLI) | payer MEDICARE, OTHER, SELFPAY ==
[2017-11-22 13:23] VITALS: BMI 27.1
--- NOTE | 2017-12-19 06:33 | MRI_ITS ---
STUDY: MRI RIGHT WRIST WITHOUT CONTRAST REASON FOR EXAM: Right wrist pain status post fall 3 weeks ago, evaluate for fracture. TECHNIQUE: Standardized fat and water weighted pulse sequences were obtained in all 3 orthogonal planes. COMPARISON: None. FINDINGS: There is a nondisplaced fracture of the distal radius mostly at the base of the radial styloid (T1 coronal images 12, 13) with bone edema. Normal distal ulna. There is a small effusion of the distal radioulnar joint (inversion recovery axial images 21, 22). Normal triangular fibrocartilaginous complex (TFCC). There is a mild bone contusion of the lunate (inversion recovery coronal images 10, 11). There is a small subchondral cyst in the proximal pole of the scaphoid. There is mild joint space narrowing of the triscaphe articulation (3-D coronal image 19). There is a small effusion of the midcarpal compartment of the wrist (T2 sagittal image 14). Normal pisotriquetral articulation. Normal visualized interosseous scapholunate ligament. There is fluid in the third dorsal compartment (inversion recovery axial images 14-17), fourth dorsal compartment (inversion recovery axial images 7-9) and sixth dorsal compartment (inversion recovery axial images 22, 23). Normal flexor tendons. There is enlargement of the median nerve in the carpal tunnel at the level of the pisiform (inversion recovery axial image 14). There is arthrosis of the carpometacarpal articulation of the thumb with chondral loss and subchondral cystic change (3-D coronal images 18-22). Normal second through fifth carpometacarpal articulations. Normal visualized metacarpal bones. There is edema in the dorsal subcutis adipose space. MRI/Upper Ext Joint Only(Routine) IMPRESSION: Nondisplaced fracture of the distal radius. Mild bone contusion of the lunate. Extensor pollicis longus tenosynovitis, extensor digitorum and indicis tenosynovitis, and extensor carpi ulnaris tenosynovitis. Enlargement of the median in the carpal tunnel, a possible MRI manifestation of carpal tunnel syndrome. Arthrosis of the first carpometacarpal joint and triscaphe articulation. Small effusions of the distal radioulnar joint and midcarpal compartment of the wrist. Electronically Signed: Cory Schaffer MD at 16:29 EDT Tel , Service support ,
== END ==
PROVIDERS: Family Provider Family Medicine; PCP Family Medicine; Visit Provider Family Medicine
DX: M25.531 Pain in right wrist (principal)
CPT/HCPCS: 73221

== ENCOUNTER 2017-12-26 16:53 | Emergency (ER) | payer MEDICARE, OTHER, SELFPAY ==
[2017-11-22 13:23] VITALS: BMI 27.1
[2017-12-26 16:54] VITALS: BP 146/62; PULSE 100; PULSE 101; RESP 14; TEMP 36.6; O2SAT 97; O2SAT 98; BMI 33.8
--- NOTE | 2017-12-26 17:40 | CT_ITS ---
STUDY: CT ABDOMEN AND PELVIS WITHOUT CONTRAST REASON FOR EXAM: Female, 72 years old. Left upper quadrant pain, diarrhea. RADIATION DOSAGE (If Supplied By Facility): CTDIvol = ( 17.30 ) mGy, DLP = ( 907.41 ) mGycm TECHNIQUE: Transaxial images were obtained from the dome of the diaphragm to the symphysis pubis without oral contrast, and without intravenous contrast. Sagittal and coronal images were reconstructed. Individualized dose optimization techniques were used for this CT. COMPARISON: November 17, 2017 FINDINGS: There are small bilateral pleural effusions associated with dependent consolidation within the lower lobes. There are coronary artery calcifications present. There is cardiomegaly. There is extensive ascites. There are hepatic and splenic granulomas. Hepatosplenomegaly is visualized. There is non-visualization of the gallbladder, which may be secondary to either contraction or a prior cholecystectomy. Normal pancreas. Normal bilateral adrenal glands. There is renal atrophy. Normal visualized stomach. Normal small intestine. There is circumferential wall thickening of the ascending, descending and sigmoid colon. There is circumferential wall thickening of the rectum visualized as well. There is non-visualization of the appendix. There are extensive atherosclerotic calcifications of the abdominal aorta, without a demonstrated aneurysm. Normal inferior vena cava. Normal retroperitoneum. Normal urinary bladder. There is extensive subcutaneous edema. There are diffuse degenerative changes of the visualized lumbar spine. CT/Abdomen/Pelvis without Cont IMPRESSION: Extensive ascites. Circumferential wall thickening of the colon and rectum suggestive of proctocolitis. Hepatosplenomegaly. Extensive subcutaneous edema. Bilateral pleural effusions associated with dependent consolidation within the lower lobes. Atherosclerosis. Electronically Signed: Sue Paul MD at 18:22 EDT Tel , Service support ,
[2017-12-26 17:44] LABS: Absolute Neutrophil Count 2.2 X10^3/uL (2.0-7.7); Basophil# 0.01 X10^3/uL; Basophil% 0.3 % (0-1); Eosinophil# 0.07 X10^3/uL; Eosinophils% 2.1 % (0-5); Hemoglobin 8.4 g/dl (12.0-15.0); Lymphocyte % 21.1 % (19-41); Mean Corpuscular Volume 96.6 fL (81-99); Mean Platelet Vol. 9.1 fl (6.2-12.0); Monocyte# 0.39 X10^3/uL; Monocyte% 11.7 % (0-10); Neutrophil # 2.15 X10^3/uL (2.7-7.7); Neutrophil % 64.8 % (47-70); Platelet Count 103 K/mm3 (150-450); RBC Distribution Width CV 18.5 % (11.6-14.6); RBC Distribution Width SD 65.4 fl (35.1-43.9); White Blood Count 3.3 K/mm3 (4.4-11.0)
[2017-12-26 17:49] LABS: Differential Indicated SCAN CRITERIA MET; POSITIVE COUNT NO; POSITIVE DIFFERENTIAL NO; POSITIVE MORPHOLOGY YES
[2017-12-26 18:05] LABS: ALB/GLOB Ratio 0.7 RATIO (0.9-2.4); AST(SGOT) 14 U/L (15-37); Alanine Aminotransfer ALT/SGPT 12 U/L (13-56); Albumin, Serum 2.8 g/dL (3.2-5.0); Alkaline Phosphatase 147 U/L (45-117); Anion Gap 7 (5-15); BUN 10 mg/dL (7-18); BUN/Creat Ratio 5.1 RATIO (10-20); Chloride 97 mmol/L (98-107); Creatinine, Serum 1.96 mg/dL (0.55-1.02); EST Glomerular Filtration Rate 26 mL/min (>60); Est Glom Filt Rate - Afr Amer 32 mL/min (>60); Estimated Creatinine Clearance 22.66 ml/min; Globulin 4.1 g/dL (2.2-4.2); Glucose 107 mg/dL (74-106); Lipase 128 U/L (73-393); Potassium 3.4 mmol/L (3.5-5.1); Protein, Total 6.9 g/dL (6.4-8.2); Sodium Level 138 mmol/L (136-145)
[2017-12-26 18:13] LABS: Differential Comment SCANNED
[2017-12-26 19:14] VITALS: BP 135/88; PULSE 95; RESP 14; O2SAT 99
[2017-12-26 19:52] VITALS: BP 141/70; PULSE 90; RESP 14; O2SAT 98
--- NOTE | 2017-12-26 19:56 | PCM.HP.STD ---
History of Present Illness The patient is a 72 year old F [] Past Medical History Past Medical History (Chronic Problems): Chronic Problems (Last Reviewed 08/21/17 @ 14:33 by Pat Gomez) Fracture of fifth metatarsal bone of right foot (Chronic) Other specified peripheral vascular diseases (Chronic) Afib (Chronic) Congenital coronary artery anomaly (Chronic) S/P PTCA (percutaneous transluminal coronary angioplasty) (Chronic) Bradycardia (Chronic) CAD (coronary artery disease) (Chronic) Diabetes mellitus, type II (Chronic) Hyperlipidemia (Chronic) Hypothyroidism (Chronic) Anemia in chronic kidney disease (Chronic) Hypertension (Chronic) End stage renal disease on dialysis (Chronic) Medical History: Medical History (Last Reviewed 08/21/17 @ 14:33 by Pat Gomez) Fracture of fifth metatarsal bone of right foot (Chronic) S92.351A Fall (Acute) W19.XXXA Gait instability (Acute) R26.81 Other specified peripheral vascular diseases (Chronic) I73.89 Pain in right ankle and joints of right foot (Acute) M25.571 Ileus (Acute) K56.7 Afib (Chronic) I48.91 Congenital coronary artery anomaly (Chronic) Q24.5 Unstable angina pectoris (Acute) NSTEMI (non-ST elevated myocardial infarction) (Acute) I21.4 Hyperkalemia (Acute) E87.5 Chest pressure (Acute) R07.89 Bradycardia (Chronic) R00.1 CAD (coronary artery disease) (Chronic) I25.10 Diabetes mellitus, type II (Chronic) E11.9 Hyperlipidemia (Chronic) E78.5 Hypothyroidism (Chronic) E03.9 Anemia in chronic kidney disease (Chronic) N18.9, D63.1 Hypertension (Chronic) I10 End stage renal disease on dialysis (Chronic) N18.6, Z99.2 Allergies lisinopril Allergy (Verified 11/17/17 14:32) Swelling nebivolol HCl [From [facility]] Adverse Reaction (Verified 11/17/17 14:32) bradycardia BRADYCARDIA Home Medications: Ambulatory Orders Medication Instructions Recorded Acetaminophen [Tylenol] 650 mg PO Q4H PRN 07/27/17 Cholecalciferol (Vitamin D3) 5,000 unit PO MOWEFR 07/27/17 [Vitamin D3] Clopidogrel Bisulfate [Plavix] 75 mg PO DAILY 07/27/17 Cyclobenzaprine HCl 5 mg PO BID PRN 07/27/17 Gabapentin [Neurontin] 100 mg PO TID 07/27/17 Insulin Aspart [Novolog Flexpen] See Protocol [facility] 07/27/17 aspirin 81 mg tablet,delayed 81 mg PO .daily tab 08/21/17 release atorvastatin 10 mg tablet 40 mg PO QDAY 08/21/17 isosorbide mononitrate ER 60 mg 60 mg PO BID 08/21/17 tablet,extended release 24 hr oxycodone 7.5 mg tablet,oral ONLY 7.5 mg PO Q4H 08/21/17 (not for feeding tubes) pantoprazole 40 mg tablet,delayed 40 mg PO QDAY 08/21/17 release promethazine 12.5 mg tablet 12.5 mg PO Q6H PRN 08/21/17 vitamin B complex and vitamin C 1 cap PO QDAY 08/21/17 no.20-folic acid 1 mg capsule Docusate Sodium [Colace] 100 mg PO DAILY 11/17/17 Calcium Acetate [Phoslo Gel Cap] 1,334 mg PO TIDCM #90 cap 11/22/17 Carvedilol [Coreg (Beta Socorro)] 3.125 mg PO BID #60 tab 11/22/17 Insulin Detemir [Levemir] 10 unit SQ QHS #0 11/22/17 Lactulose [Chronulac] 20 gm PO DAILY PRN #30 udc 11/22/17 Losartan Potassium [Cozaar] 50 mg PO DAILY tablet 11/22/17 Surgical History: Surgical History (Last Updated 08/21/17 @ 14:35 by Pat Gomez) S/P PTCA (percutaneous transluminal coronary angioplasty) (Chronic) Z98.61 History of colectomy Z90.49 History of hysterectomy Z90.710 History of laparoscopic cholecystectomy Z90.49 History of total right knee replacement Z96.651 Hx of foot surgery Z98.890 history left A-V fistula Surgical History: angioplasty, hysterectomy, total knee arthroplasty, - Psychiatric History: No pertinent psych hx SPECIAL SYSTEMS TECHNICIAN History: No pertinent SPECIAL SYSTEMS TECHNICIAN history Smoking Status: Never smoker - *Family History Maternal Family History: Family History (Last Updated 08/21/17 @ 14:36 by Pat Gomez) Sister Diabetes Hypertension History Items: Cancer - uterine Paternal Family History: Family History (Last Updated 08/21/17 @ 14:36 by Pat Gomez) Sister Diabetes Hypertension History Items: Cancer Sibling Family History: Family History (Last Updated 08/21/17 @ 14:36 by Pat Gomez) Sister Diabetes Hypertension History Items: Diabetes - Physical Exam Vital Signs Temp Pulse Resp BP Pulse Ox 97.8 F 90 14 141/70 H 98 12/26/17 16:54 12/26/17 19:52 12/26/17 19:52 12/26/17 19:52 12/26/17 19:52 Oxygen Delivery Method Room Air Weight: 92.2 kg Body Mass Index (BMI) 33.8 Finger Stick Blood Glucose 99 Laboratory Tests Past 24 Hrs 12/26/17 12/26/17 17:35 17:35 WBC 3.3 L RBC 2.90 L Hgb 8.4 L Hct 28.0 L MCV 96.6 MCH 29.0 MCHC 30.0 L RDW 18.5 H RDW Differential 65.4 H Plt Count 103 L MPV 9.1 Immature Gran % (Auto) 0.000 Neut % (Auto) 64.8 Lymph % (Auto) 21.1 [place] % (Auto) 11.7 H Eos % (Auto) 2.1 Baso % (Auto) 0.3 Absolute Neuts (auto) 2.2 Absolute Lymphs (auto) 0.70 L Total Counted Not Reportable Differential Comment SCANNED Sodium 138 Potassium 3.4 L Chloride 97 L Carbon Dioxide 34.0 H Anion Gap 7 BUN 10 Creatinine 1.96 H Estim Creat Clear Calc 22.66 Est GFR (MDRD) Af Amer 32 L Est GFR (MDRD) Non-Af 26 L BUN/Creatinine Ratio 5.1 L Glucose 107 H Calcium 8.0 L Total Bilirubin 0.50 AST 14 L ALT 12 L Alkaline Phosphatase 147 H Total Protein 6.9 Albumin 2.8 L Globulin 4.1 Albumin/Globulin Ratio 0.7 L Lipase 128 Assessment/Plan All Active Problems (Last Reviewed 08/21/17 @ 14:33 by Pat Gomez) Hypervolemia (Acute) Hypotension (Acute) Fall (Acute) Gait instability (Acute) Pain in right ankle and joints of right foot (Acute) Ileus (Acute) Unstable angina pectoris (Acute) NSTEMI (non-ST elevated myocardial infarction) (Acute) Hyperkalemia (Acute) Chest pressure (Acute)
[2017-12-26 20:48] VITALS: BP 135/78; PULSE 96; RESP 14; O2SAT 99
--- NOTE | 2017-12-26 21:01 | NURSING ---
[address] VILLALPANDO [phone] REPORT
[2017-12-26 21:09] VITALS: BP 135/80; PULSE 91; RESP 14; O2SAT 98
[2017-12-26 21:55] VITALS: BP 145/85; PULSE 72; RESP 14; O2SAT 99
--- NOTE | 2018-01-19 07:14 | ED.VISSUMM ---
- ER Visit Summary Date of Service: 01/19/18 Chief Complaint: Abdominal Pain History of Present Illness: The patient is a 72 F sent from for abdominal pain and dark stool for 3 days. Physical Examination: Vitals are within normal limits. She has LUQ abdominal tenderness but no rebound or guarding. Rectal exam performed with female nurse clinical pharmacy specialist reveals heme positive stool. Test Results: Hemoglobin is 8.4, creat is 1.96. CT scan reveals hepatomegaly and ascites. Emergency Department Course and Treatment: I discussed the case with Dr. Yazan Manzo who reviewed the CT scan and recommended transfer to a tertiary care center. The patient was recently hospitalized at [facility] and she requested transfer to there. I spoke with the transfer line and she was accepted. Treatment Plan: transfer to [facility] Disposition: Transfer Impression: Enterocolitis, GI bleed, Ascites, Hepatomegaly This note was generated with [employer] dictation software. It may contain incorrect words, spelling, and punctuation that were not noted in review of the chart prior to signing ED Disposition - Plan for ED Patient: Disposition: [facility] Chief Complaint: Abd Pain Referrals: Walter Chao MD [Primary Care Provider] -
== END 2017-12-26 21:58 | disposition short-term general hospital (02) ==
LOC: ED 18:31
PROVIDERS: Emergency Provider Emergency Medicine; Family Provider Family Medicine; PCP Family Medicine
DX: K52.9 Noninfective gastroenteritis and colitis, unspecified (principal); K92.2 Gastrointestinal hemorrhage, unspecified; R18.8 Other ascites; R16.0 Hepatomegaly, not elsewhere classified; N18.6 End stage renal disease; Z90.49 Acquired absence of other specified parts of digestive tract; Z79.82 Long term (current) use of aspirin; Z79.4 Long term (current) use of insulin; Z79.02 Long term (current) use of antithrombotics/antiplatelets; Z79.899 Other long term (current) drug therapy
CPT/HCPCS: 74176; 80053; 83690; 85025; 99285; A4216

== ENCOUNTER → 2018-02-07 14:08 | Outpatient (CLI) | payer MEDICARE, OTHER, SELFPAY ==
[2017-11-22 13:23] VITALS: BMI 27.1
--- NOTE | 2018-02-07 14:14 | US_ITS ---
STUDY: ABDOMINAL ULTRASOUND REASON FOR EXAM: Female, 73 years old. Abdominal pain, TECHNIQUE: Transabdominal ultrasound was performed with real-time and static martinez scale imaging. TECHNICAL QUALITY: Adequate. COMPARISON: December 26, 2017 CT scan abdomen and pelvis FINDINGS: Liver: The liver measures 20.5 cm. There is mixed hyperechogenicity and low echogenicity. The bile ducts are within normal limits. There is hepatic color flow. The direction of portal flow is hepatopetal. Within the right hepatic lobe there is a well-circumscribed hyperechoic focus measuring approximately 2.1 x 1.7 cm compatible with a stable low attenuation within the mid right kidney seen on prior studies most compatible with a hemangioma. Portal vein measurement: Gallbladder: Gallbladder is been removed. Common Bile Duct (C.B.D.): The common bile duct measures mm. Pancreas: Normal size of the head, body and tail of the pancreas. There is normal echogenicity of the pancreas. There is no demonstrated pancreatic mass or cyst. Spleen: There is moderate to severe splenomegaly. The spleen measures 15.7 x 5.1 x 6.4 cm. Right Kidney: Normal size of the right kidney. The right kidney measures 9.5 x 4.0 x 2.4 cm. There is thinning of the renal cortex. The right cortex measures 5.5 cm. There are punctate echogenicities within the right kidney which may represent punctate stones. There is no demonstrated renal mass or cyst. There is no right hydronephrosis. Left Kidney: Normal size of the left kidney. The left kidney measures 9.1 x 4.6 x 3.6 cm. There is thinning of the renal cortex. The left cortex measures 0.6 cm. There are punctate echogenicities within the left kidney which may represent punctate stones. There is no demonstrated renal mass or cyst. There is no left hydronephrosis. Aorta: The proximal aorta measures 1.6 cm. The distal aorta measures 1.3 cm. I.V.C.: The IVC is patent. There is moderate ascites as seen on the prior study. US/Abdomen Complete IMPRESSION: Mild to moderate ascites. Hepatomegaly. Hepatic steatosis with possible sparing Splenomegaly. Punctate echogenicity within the kidneys may represent vascular calcification is no evidence of hydronephrosis. Bilateral significant renal parenchymal thinning compatible with underlying medical renal disease. Probable hemangioma in the right hepatic lobe similar to the prior studies. Electronically Signed: Joanna Delgado MD at 15:20 EDT Tel , Service support ,
== END ==
PROVIDERS: Family Provider Internal Medicine; PCP Internal Medicine; Visit Provider Nurse Practitioner
DX: R10.9 Unspecified abdominal pain (principal)
CPT/HCPCS: 76700

== ENCOUNTER 2018-02-13 19:14 | Observation (INO) | payer MEDICARE, OTHER, SELFPAY ==
[2017-11-22 13:23] VITALS: BMI 27.1
[2018-02-13 19:15] VITALS: BP 153/79; PULSE 107; RESP 22; TEMP 37.1; O2SAT 95; BMI 33.7
--- NOTE | 2018-02-13 19:54 | EKG12_ITS ---
Test Reason : SOB Blood Pressure : / mmHG Vent. Rate : 088 BPM Atrial Rate : 098 BPM P-R Int : 000 ms QRS Dur : 090 ms QT Int : 378 ms P-R-T Axes : 000 017 127 degrees QTc Int : 457 ms Atrial tachycardia , or atypical atrial flutter Nonspecific ST and T wave abnormality Abnormal ECG Confirmed by QUIRINO NEWMAN, NANCIE ([id number]), clinical editor LEONCIO NAIR ([id number] on 02/19/2018 2:29:20 PM Referred By: Robyn Sharma Confirmed By:NANCIE WIN MD
[2018-02-13 19:56] VITALS: O2SAT 95
--- NOTE | 2018-02-13 20:01 | ED.DCSUM_ITS ---
- ER Visit Summary Date of Service: 02/13/18 Chief Complaint: Shortness of breath and abdominal discomfort History of Present Illness: The patient is a 73 F who presents for shortness of breath since yesterday. She states that she has ascites and is scheduled to get a paracentesis next Sunday. She has gained over 40 pounds in the last month secondary to fluid collection in her abdomen. She states she has never had a paracentesis before. She is becoming more short of breath since yesterday, worse with exertion, trying to lay flat or sitting. She denies any fever. She does have abdominal discomfort, worse in the right upper quadrant. No nausea or vomiting. Patient is a hemodialysis patient Sunday and Sunday. She has been off of her aspirin and Plavix for 3 days in anticipation of the paracentesis. She is very uncomfortable at this time and is unable to sleep secondary to her discomfort. She does not know why she has ascites. Physical Examination: Vital signs: afebrile, hemodynamically stable, no hypoxia on room air General: well nourished, well developed, uncomfortable appearing female sitting on the edge of the bed in no distress Skin: warm, dry, no rash, no pallor HEENT: normocephalic and atraumatic; PERRL, EOMI, moist mucous membranes Cardiovascular: Tachycardic rate, irregular rhythm without murmurs, symmetric peripheral edema, 2+ pulses all distal extremities Respiratory: Mild increased work of breathing, lungs are clear to auscultation bilaterally, no rales, rhonchi or wheezing Abdominal: Abdomen is obese, distended, mildly tender, normoactive bowel sounds, no guarding or rebound, no masses MSK: Moves all extremities, no deformities, normal strength Neuro: Awake and alert, oriented ?4. No facial droop, sensation and motor function intact and symmetric Test Results: Abnormal Lab Results 02/13/18 02/13/18 02/13/18 20:52 20:52 20:52 WBC 3.4 L RBC 3.01 L Hgb 8.6 L Hct 29.0 L MCV 96.3 MCH 28.6 MCHC 29.7 L RDW 17.7 H RDW Differential 62.0 H Plt Count 115 L MPV 9.3 Immature Gran % (Auto) 0.000 Neut % (Auto) 67.1 Lymph % (Auto) 17.6 L [place] % (Auto) 12.6 H Eos % (Auto) 2.1 Baso % (Auto) 0.6 Absolute Neuts (auto) 2.3 Absolute Lymphs (auto) 0.60 L Total Counted Not Reportable Differential Comment SCANNED PT 16.5 H INR 1.3 APTT 38.9 H Sodium 133 L Potassium 4.5 Chloride 95 L Carbon Dioxide 31.0 Anion Gap 7 BUN 23 H Creatinine 2.59 H Estim Creat Clear Calc 16.89 Est GFR (MDRD) Af Amer 23 L Est GFR (MDRD) Non-Af 19 L BUN/Creatinine Ratio 8.9 L Glucose 177 H Calcium 8.4 L Total Bilirubin 0.50 Direct Bilirubin 0.26 AST 16 ALT 15 Alkaline Phosphatase 214 H Troponin I 0.029 Total Protein 7.5 Albumin 3.0 L Globulin 4.5 H Lipase 152 Clinical Impression(s) from Imaging Studies Chest X-Ray 02/13/18 21:10 IMPRESSION: 1. Moderate cardiomegaly. 2. Calcified plaques of the thoracic aorta. 3. Calcified granulomas of the left lower lobe. 4. Bilateral calcified hilar nodes. 5. No acute cardiopulmonary disease process is seen. Electronically Signed: Phillip Roy MD at 21:29 EDT , Service support , Medications Given Discontinued Medications Morphine Sulfate () 4 mg IV X1 ONE Stop: 02/13/18 19:55 Last Admin: 02/13/18 21:05 Dose: 4 mg Ondansetron HCl (Zofran) 4 mg IV X1 ONE Stop: 02/13/18 19:55 Last Admin: 02/13/18 21:06 Dose: 4 mg Emergency Department Course and Treatment: Patient presents with abdominal discomfort and distention, now with shortness of breath, and does not feel she can wait 1 week until her paracentesis. Workup was performed including alternative reasons for shortness of breath. Chest x-ray showed no infiltrates, effusions or pulmonary edema. There is no sign of volume overload secondary to end-stage renal disease. Troponin was within normal limits. Patient had CBC and chemistry panel consistent with her baseline. No transaminitis. EKG showed a sinus arrhythmia with T-wave inversions in aVL and lead I, consistent with her prior EKG. No ischemic changes. Patient received morphine and Zofran for her discomfort. After receiving pain medications, patient felt better. Because of her known ascites, now affecting her ability to breathe, she was discussed with Dr. Holland for admission for therapeutic paracentesis. Treatment Plan: [] Disposition: [] Impression: Shortness of breath, abdominal distention, ascites This note was generated with Civo dictation software. It may contain incorrect words, spelling, and punctuation that were not noted in review of the chart prior to signing ED Disposition - Plan for ED Patient: Disposition: Acute Care Hospital [facility] Chief Complaint: Shortness of Breath
--- NOTE | 2018-02-13 20:18 | ED.RN ---
PT ASSISTED UP TO BATHROOM. PT UNABLE TO URINATE AT THIS TIME, REPORTS SHE DOES NOT MAKE MUCH URINE. PT DOES DIALYSIS [facility].
[2018-02-13 21:04] LABS: Absolute Neutrophil Count 2.3 X10^3/uL (2.0-7.7); Basophil# 0.02 X10^3/uL; Basophil% 0.6 % (0-1); Eosinophil# 0.07 X10^3/uL; Eosinophils% 2.1 % (0-5); Hemoglobin 8.6 g/dl (12.0-15.0); Lymphocyte % 17.6 % (19-41); Mean Corp Hgb Conc 29.7 g/gl (32-36); Mean Corpuscular Hgb 28.6 pg (27.0-32.0); Mean Corpuscular Volume 96.3 fL (81-99); Mean Platelet Vol. 9.3 fl (6.2-12.0); Monocyte# 0.43 X10^3/uL; Monocyte% 12.6 % (0-10); Neutrophil # 2.29 X10^3/uL (2.7-7.7); Neutrophil % 67.1 % (47-70); Platelet Count 115 K/mm3 (150-450); RBC Distribution Width CV 17.7 % (11.6-14.6); Red Blood Count 3.01 M/mm3 (4.2-5.4); White Blood Count 3.4 K/mm3 (4.4-11.0)
[2018-02-13] MEDS: Morphine 4 MG/ML Syringe IV (21:05)
[2018-02-13 21:06] LABS: Differential Indicated SCAN CRITERIA MET; POSITIVE COUNT NO; POSITIVE DIFFERENTIAL YES; POSITIVE MORPHOLOGY NO
[2018-02-13] MEDS: Ondansetron 4 MG/2 ML Vial IV (21:06)
--- NOTE | 2018-02-13 21:10 | RAD_ITS ---
STUDY: X-RAY CHEST REASON FOR EXAM: Female, 73 years old. Shortness of breath TECHNIQUE: PA and lateral views of the chest. COMPARISON: Previous study of 11/22/2017 FINDINGS: There are calcified granulomas of the left lower lobe. There is no demonstrated pleural abnormality. There is moderate cardiac enlargement. There are calcified bilateral hilar nodes. Normal visualized pulmonary arteries. There are calcified plaques of the thoracic aorta. Normal visualized thoracic spine. Normal visualized ribs, clavicles, and shoulders. There is no demonstrated abnormality of the visualized soft tissue structures of the upper abdomen. RAD/Chest PA and Lateral IMPRESSION: 1. Moderate cardiomegaly. 2. Calcified plaques of the thoracic aorta. 3. Calcified granulomas of the left lower lobe. 4. Bilateral calcified hilar nodes. 5. No acute cardiopulmonary disease process is seen. Electronically Signed: Phillip Roy MD at 21:29 EDT , Service support ,
[2018-02-13 21:19] LABS: AST(SGOT) 16 U/L (15-37); Alanine Aminotransfer ALT/SGPT 15 U/L (13-56); Alkaline Phosphatase 214 U/L (45-117); Anion Gap 7 (5-15); BUN 23 mg/dL (7-18); BUN/Creat Ratio 8.9 RATIO (10-20); Bilirubin, Direct 0.26 mg/dL (0.00-0.30); Calcium,Total 8.4 mg/dL (8.5-10.1); Chloride 95 mmol/L (98-107); Creatinine, Serum 2.59 mg/dL (0.55-1.02); EST Glomerular Filtration Rate 19 mL/min (>60); Est Glom Filt Rate - Afr Amer 23 mL/min (>60); Estimated Creatinine Clearance 16.89 ml/min; Globulin 4.5 g/dL (2.2-4.2); Glucose 177 mg/dL (74-106); Lipase 152 U/L (73-393); Potassium 4.5 mmol/L (3.5-5.1); Protein, Total 7.5 g/dL (6.4-8.2); Sodium Level 133 mmol/L (136-145)
[2018-02-13 21:32] LABS: Differential Comment SCANNED
[2018-02-13 21:52] VITALS: BP 157/74; PULSE 97; RESP 22; O2SAT 98
--- NOTE | 2018-02-13 22:35 | PCM.HP.STD ---
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 (9) Hyperlipidemia Status: Chronic Qualifiers: Hyperlipidemia type: pure hypercholesterolemia Qualified Code(s): E78.00 - Pure hypercholesterolemia, unspecified; E78.0 - Pure hypercholesterolemia (10) Hypothyroidism Status: Chronic Qualifiers: Hypothyroidism type: unspecified Qualified Code(s): E03.9 - Hypothyroidism, unspecified (11) Anemia in chronic kidney disease Status: Chronic Qualifiers: Chronic kidney disease stage: on chronic dialysis Qualified Code(s): N18.6 - End stage renal disease; D63.1 - Anemia in chronic kidney disease; Z99.2 - Dependence on renal dialysis (12) Hypertension Status: Chronic Qualifiers: Hypertension type: essential hypertension Qualified Code(s): I10 - Essential (primary) hypertension (13) End stage renal disease on dialysis Status: Chronic History of Present Illness Date of Admission: 02/13/18 Chief Complaint: Worsened abdominal ascites, weight gain, abdominal discomfort, dyspnea The patient is a 73 y/o F w/ PMHx: Chronic Hypoxic Respiratory Failure, CAD s/p NSTEMI and PCI, Diastolic CHF, Obesity, HTN, HLD, Obesity, AOCD, Diabetes mellitus type II, Chronic Atrial Flutter, ESRD on HD who presents to the [facility] ED on 02/13/18 with history of increasing dyspnea, worsening ascites with abdominal discomfort, increased weight gain over the last month w/ planned upcoming paracentesis this upcoming Sunday but she notes worsening symptoms thus she presented to the ED for evaluation. She has been off her ASA and plavix x 3 days for paracentesis. She had HD on day of presentation and she notes secondary to government parameters she can only have a maximum level of fluid removed and she tolerated HD without issue. In the ED work-up included T 98.7, heart rate initially 107--> 87, BP 153/79, respiratory rate 22, 95% on room air, CBC with WBC 3.4, hemoglobin 8.6, platelet 115, CMP with sodium 133, chloride 95, BUN 23/creatinine 2.59, glucose 177, alkaline phosphatase 214, troponin 0 0.029, chest x-ray with moderate cardiomegaly, calcified plaques thoracic aorta, calcified granulomas left lower lobe, bilateral calcified hilar nodes with no acute cardia pulmonary process noted, EKG with no acute evidence of ischemia. In ED patient ministered morphine 4 mg IV x1 in addition to IV Zofran. Past Medical History Past Medical History (Chronic Problems): Chronic Problems (Last Reviewed 08/21/17 @ 14:33 by Pat Gomez) Fracture of fifth metatarsal bone of right foot (Chronic) Other specified peripheral vascular diseases (Chronic) Afib (Chronic) Congenital coronary artery anomaly (Chronic) S/P PTCA (percutaneous transluminal coronary angioplasty) (Chronic) NSTEMI (non-ST elevated myocardial infarction) (Chronic) Bradycardia (Chronic) CAD (coronary artery disease) (Chronic) Diabetes mellitus, type II (Chronic) Hyperlipidemia (Chronic) Hypothyroidism (Chronic) Anemia in chronic kidney disease (Chronic) Hypertension (Chronic) End stage renal disease on dialysis (Chronic) Medical History: Medical History (Last Reviewed 08/21/17 @ 14:33 by Pat Gomez) Fracture of fifth metatarsal bone of right foot (Chronic) S92.351A Fall (Acute) W19.XXXA Gait instability (Acute) R26.81 Other specified peripheral vascular diseases (Chronic) I73.89 Pain in right ankle and joints of right foot (Acute) M25.571 Ileus (Acute) K56.7 Afib (Chronic) I48.91 Congenital coronary artery anomaly (Chronic) Q24.5 Unstable angina pectoris (Acute) NSTEMI (non-ST elevated myocardial infarction) (Chronic) I21.4 Hyperkalemia (Acute) E87.5 Chest pressure (Acute) R07.89 Bradycardia (Chronic) R00.1 CAD (coronary artery disease) (Chronic) I25.10 Diabetes mellitus, type II (Chronic) E11.9 Hyperlipidemia (Chronic) E78.5 Hypothyroidism (Chronic) E03.9 Anemia in chronic kidney disease (Chronic) N18.9, D63.1 Hypertension (Chronic) I10 End stage renal disease on dialysis (Chronic) N18.6, Z99.2 Allergies lisinopril Allergy (Verified 02/13/18 19:16) Swelling nebivolol HCl [From Bystolic] Adverse Reaction (Verified 02/13/18 19:16) bradycardia BRADYCARDIA Home Medications: Ambulatory Orders Medication Instructions Recorded Acetaminophen [Tylenol] 650 mg PO Q4H PRN 07/27/17 Cholecalciferol (Vitamin D3) 5,000 unit PO MOWEFR 07/27/17 [Vitamin D3] Clopidogrel Bisulfate [Plavix] 75 mg PO DAILY 07/27/17 Cyclobenzaprine HCl 5 mg PO BID PRN 07/27/17 Gabapentin [Neurontin] 100 mg PO TID 07/27/17 pantoprazole 40 mg tablet,delayed 40 mg PO QDAY 08/21/17 release promethazine 12.5 mg tablet 12.5 mg PO Q6H PRN 08/21/17 vitamin B complex and vitamin C 1 cap PO QDAY 08/21/17 no.20-folic acid 1 mg capsule Aspirin E.C. [Ecotrin] 81 mg PO DAILY@0800 12/26/17 Atorvastatin Calcium [Lipitor] 80 mg PO QHS 12/26/17 Carvedilol 12.5 mg PO BID 12/26/17 Docusate Calcium [Stool Softener] 240 mg PO BID 12/26/17 Doxazosin Mesylate 8 mg PO QHS 12/26/17 Furosemide [Lasix] 80 mg PO BID 12/26/17 Insulin Detemir [Levemir] 10 unit SQ QHS 12/26/17 Insulin Lispro Protamin/Lispro See Protocol SQ .COMPLEX 12/26/17 [Humalog Mix 50-50 Kwikpen] Isosorbide Mononitrate 20 mg PO BID 12/26/17 Lactulose [Chronulac] 40 ml PO DAILY PRN 12/26/17 Losartan Potassium [Cozaar] 50 mg PO BID 12/26/17 Sevelamer Carbonate [Renvela] 3,200 mg PO TID 12/26/17 Surgical History: Surgical History (Last Updated 08/21/17 @ 14:35 by Pat Gomez) S/P PTCA (percutaneous transluminal coronary angioplasty) (Chronic) Z98.61 History of colectomy Z90.49 History of hysterectomy Z90.710 History of laparoscopic cholecystectomy Z90.49 History of total right knee replacement Z96.651 Hx of foot surgery Z98.890 history left A-V fistula Surgical History: - - Left upper extremity fistula, cholecystectomy, back surgery, colon resection with history of diverticulitis, hysterectomy, appendectomy, right knee surgery, right total knee replacement, right foot surgery, left knee surgery, left foot surgery, PCI. 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 history Lives: Alone Smoking Status: Former smoker Tobacco Use: Non-smoker Alcohol: None Drugs: None - *Family History Maternal Family History: Family History (Last Updated 08/21/17 @ 14:36 by Pat Gomez) Sister Diabetes Hypertension History Items: Cancer - uterine Paternal Family History: Family History (Last Updated 08/21/17 @ 14:36 by Pat Gomez) Sister Diabetes Hypertension History Items: Cancer Sibling Family History: Family History (Last Updated 08/21/17 @ 14:36 by Pat Gomez) Sister Diabetes Hypertension History Items: Diabetes Review of Systems Constitutional: Reports: Malaise, Weakness, Fatigue. Denies: Chills, Fever, Weight Change HEENT: Denies: Head Aches, Sinus Congestion, Sinus Drainage Cardiovascular: Denies: Chest Pain, Palpitations Respiratory: Reports: Shortness of Breath, Shortness of breath at rest, Shortness of breath upon exertion. Denies: Cough, Sputum production Gastrointestinal: Reports: Abdominal Pain, - - Increasing abdominal distention.. Denies: Nausea, Vomiting Genitourinary: Denies: Dysuria Musculoskeletal: Reports: Back Pain. Denies: Joint Pain, Joint Tenderness Skin: Denies: Rash, Wounds Neurological: Denies: Numbness, Tingling, Focal weakness Psychiatric: Denies: Anxiety, Depression, Homicidal Ideations, Suicidal Ideations Hematologic/ Lymphatic: Reports: Anemia, Easy Bruising, Easy Bleeding VTE Information - Inpt Only VTE Present on Admission: No VTE Mechan Device Prophylaxis: SCD's VTE Pharm Prophylaxis ordered?: No Reason prophylaxis not ordered:: Medical Contraindication - Holding for paracentesis Patient Problems: Active and Suspected Problems (Last Reviewed 08/21/17 @ 14:33 by Pat Gomez) Ascites (Acute) Subjective: Seated upright in the ED bed, fatigued appearance, NAD. Objective: Physical Examination: General: awake, alert, oriented x 3 and cooperative, seated upright in the ED bed in no apparent distress. Skin: normal color, turgor, no icterus, cyanosis. HEENT: AT/NC, EOMI, R PERRLA, blind L eye, MMM, no carotid bruits or JVD noted. Lungs: Diminished BS BL bases, moderate effort, no evidence of respiratory distress, no rales, ronchi or wheezing. Heart: Irregular, rate controlled; no gallop, rub audible, murmur w/ thrill. Abdomen: soft, diffusely TTP, notable distention, difficult to see any fluid wave, difficult to assess HSM secondary to distention and discomfort. Extremities: no cyanosis, clubbing, BL ankle to distention [place] edema, minimally pitting, AVF LUE w/ +thrill. Neurological: patient awake, alert, oriented x 3; cognitive function intact; pupils equally reactive to light and accomodation; cranial nerves II-XII grossly normal, moving all 4 extremities, no focal deficits, strength moderately to severely globally decreased. Psychiatric: affect appears fatigued, no acute evidence of depressive or anxiety feelings. - Physical Exam Vital Signs Temp Pulse Resp BP Pulse Ox 98.7 F 97 22 H 157/74 H 98 02/13/18 19:15 02/13/18 21:52 02/13/18 21:52 02/13/18 21:52 02/13/18 21:52 Oxygen Delivery Method Room Air Weight: 202 lb 9.677 oz Body Mass Index (BMI) 33.7 Finger Stick Blood Glucose 99 Laboratory Tests Past 24 Hrs 02/13/18 02/13/18 20:52 20:52 WBC 3.4 L RBC 3.01 L Hgb 8.6 L Hct 29.0 L MCV 96.3 MCH 28.6 MCHC 29.7 L RDW 17.7 H RDW Differential 62.0 H Plt Count 115 L MPV 9.3 Immature Gran % (Auto) 0.000 Neut % (Auto) 67.1 Lymph % (Auto) 17.6 L [place] % (Auto) 12.6 H Eos % (Auto) 2.1 Baso % (Auto) 0.6 Absolute Neuts (auto) 2.3 Absolute Lymphs (auto) 0.60 L Total Counted Not Reportable Differential Comment SCANNED Sodium 133 L Potassium 4.5 Chloride 95 L Carbon Dioxide 31.0 Anion Gap 7 BUN 23 H Creatinine 2.59 H Estim Creat Clear Calc 16.89 Est GFR (MDRD) Af Amer 23 L Est GFR (MDRD) Non-Af 19 L BUN/Creatinine Ratio 8.9 L Glucose 177 H Calcium 8.4 L Total Bilirubin 0.50 Direct Bilirubin 0.26 AST 16 ALT 15 Alkaline Phosphatase 214 H Troponin I 0.029 Total Protein 7.5 Albumin 3.0 L Globulin 4.5 H Lipase 152 Assessment/Plan All Active Problems (Last Reviewed 08/21/17 @ 14:33 by Pat Gomez) Ascites (Acute) Hypervolemia (Acute) Hypotension (Acute) Fall (Acute) Gait instability (Acute) Pain in right ankle and joints of right foot (Acute) Ileus (Acute) Unstable angina pectoris (Acute) Hyperkalemia (Acute) Chest pressure (Acute) The patient is a 73 y/o F w/ PMHx: Chronic Hypoxic Respiratory Failure, CAD s/p NSTEMI and PCI, Diastolic CHF, Obesity, HTN, HLD, Obesity, AOCD, Diabetes mellitus type II, Chronic Atrial Flutter, ESRD on HD who presents to the [facility] ED on 02/13/18 with history of increasing dyspnea, worsening ascites with abdominal discomfort, increased weight gain over the last month w/ planned upcoming paracentesis this upcoming Sunday but she notes worsening symptoms thus she presented to the ED for evaluation. (1) Worsened Ascites w/ Abdominal Pain, Weight Gain w/ Underlying Diastolic CHF History and ESRD: Recent Liver US 02/07/18 w/ mild to moderate ascites, hepatomegaly, hepatic steatosis with possible sparing, probable hemangioma in the right hepatic lobe similar to the prior studies. Planned upcoming paracentesis per her PCP. She notes her [place], Dr. Crawley has wanted to remove more fluid but has been restricted by government parameters. Given symptomatic, will admit to [facility], NPO status currently, continue home lasix, ARB, BB, statin regimen, holding asa, plavix for intervention, plan consult to radiology for diagnostic and therapeutic paracentesis. (2) Chronic Hypoxic Respiratory Failure: Secondary to her underlying CHF, ESRD history, maintain on her home chronic supplementation, HOB, IS. (3) AOCD: Admission Hgb 8.6, baseline appears 8-10 range, stable, repeat CBC in AM. (4) CAD: s/p NSTEMI and PCI, patient w/ known coronary disease with nonobstructive disease of her left main and LAD, and occluded anomalous left circumflex, and disease of her proximal and distal RCA which was to be evaluated and corrected at [facility] for a 2017. Holding asa, plavix as noted for recently planned outpatient paracentesis, will continue hold for planned AM paracentesis, maintain on home regimen statin, Coreg, ARB. (5) Hypertension: Continue home regimen including Coreg, doxazosin, Lasix, isosorbide, losartan (6) Hyperlipidemia: Continue home statin regimen. (7) Diabetes mellitus type II: Hold oral home regimen, continue home insulin regimen, NPO status for intervention in AM, accu checks w/ ISS. (8) Chronic Atrial Flutter: Previously on amiodarone and coreg, transitioned to currently coreg only secondary to prior issues with bradycardia, holding as noted asa, plavix w/ planned intervention, otherwise not anticoagulated. (9) ESRD: On HD MWF, HD last on day of ED presentation, following w/ Dr. Crawley. If remains into Sunday would plan consultation for HD, otherwise defer. (10) Obesity: Weight loss and lifestyle changes encouraged, likely BMI will improve w/ paracentesis. (11) GERD: PPI. (12) DVT Prophylaxis: SCDs, defer chemoprophylaxis for planned paracentesis as noted. (13) CODE status: Discussed CODE status at length including difference between FULL code, DNR-CCA and DNR-CC status. Encouraged patient to set-up HCPOA and living will which she does not currently have in place. Encouraged her to discuss her wishes with her family. She notes she has not discussed this prior. She seems uncertain, but upon discussion wishes to remain full code. Advanced Care Planning Face to Face Time: 16 minutes.
[2018-02-13 22:46] LABS: International Normalized Ratio 1.3; Prothrombin Time (Protime)PT. 16.5 SECONDS (11.7-14.9)
[2018-02-13 22:47] LABS: Partial Thromboplast Time 38.9 Seconds (24.1-36.2)
[2018-02-13 23:40] VITALS: BMI 33.7; BMI 33.8
[2018-02-13 23:52] VITALS: BP 148/68; PULSE 106; RESP 16; TEMP 36.9; O2SAT 94
[2018-02-14 00:56] LABS: Bedside Glucose 161 mg/dL (70-110)
[2018-02-14] MEDS: Lactulose 20 GM/30 ML UDC 26.666 GM PO (01:13)
[2018-02-14] MEDS: fentaNYL 100 MCG/2 ML Ampul 25 MCG IV ×3 (01:14→10:11)
[2018-02-14] MEDS: 0.9% NaCl Peripheral Flush Adult/Peds IV ×3 (01:15→10:11)
[2018-02-14 05:25] VITALS: BP 133/69; PULSE 107; RESP 20; TEMP 36.7; O2SAT 94
[2018-02-14] MEDS: Magnesium Hydroxide 30 ML UDC PO (05:32)
[2018-02-14] MEDS: Gabapentin 100 MG Capsule PO (05:44)
[2018-02-14 06:25] LABS: Absolute Lymphocyte Count 0.77 X10^3/ul (0.83-4.51); Absolute Neutrophil Count 1.8 X10^3/uL (2.0-7.7); Basophil# 0.03 X10^3/uL; Eosinophil# 0.08 X10^3/uL; Eosinophils% 2.7 % (0-5); Hematocrit 28.7 % (37-47); Hemoglobin 8.5 g/dl (12.0-15.0); Lymphocyte # 0.77 X10^3/ul (4.0); Lymphocyte % 25.6 % (19-41); Mean Corp Hgb Conc 29.6 g/gl (32-36); Mean Corpuscular Hgb 29.1 pg (27.0-32.0); Mean Corpuscular Volume 98.3 fL (81-99); Mean Platelet Vol. 9.9 fl (6.2-12.0); Monocyte# 0.32 X10^3/uL; Monocyte% 10.6 % (0-10); Neutrophil # 1.81 X10^3/uL (2.7-7.7); Neutrophil % 60.1 % (47-70); Platelet Count 129 K/mm3 (150-450); RBC Distribution Width CV 17.6 % (11.6-14.6); RBC Distribution Width SD 60.5 fl (35.1-43.9); Red Blood Count 2.92 M/mm3 (4.2-5.4)
[2018-02-14 06:28] LABS: International Normalized Ratio 1.4; Prothrombin Time (Protime)PT. 17.1 SECONDS (11.7-14.9)
[2018-02-14 06:29] LABS: Partial Thromboplast Time 39.6 Seconds (24.1-36.2)
[2018-02-14 06:31] LABS: POSITIVE COUNT NO; POSITIVE DIFFERENTIAL NO; POSITIVE MORPHOLOGY NO
[2018-02-14 06:43] LABS: Anion Gap 4 (5-15); BUN 29 mg/dL (7-18); Calcium,Total 8.4 mg/dL (8.5-10.1); Chloride 97 mmol/L (98-107); EST Glomerular Filtration Rate 17 mL/min (>60); Est Glom Filt Rate - Afr Amer 20 mL/min (>60); Estimated Creatinine Clearance 15.08 ml/min; Glucose 134 mg/dL (74-106); Potassium 4.7 mmol/L (3.5-5.1); Sodium Level 134 mmol/L (136-145)
[2018-02-14 07:01] LABS: Bedside Glucose 115 mg/dL (70-110)
[2018-02-14 08:30] VITALS: O2SAT 100
[2018-02-14 09:14] VITALS: BP 125/55; PULSE 104; RESP 20; TEMP 36.9; O2SAT 94
[2018-02-14] MEDS: Losartan Potassium 50 MG Tablet PO (09:25)
[2018-02-14] MEDS: Pantoprazole Sodium 40 MG Tablet PO (09:25)
[2018-02-14] MEDS: Carvedilol 12.5 MG Tablet PO (09:25)
[2018-02-14] MEDS: Isosorbide Mononitrate 20 MG Tablet PO (09:25)
[2018-02-14] MEDS: Folic Acid/Vitamin B Comp W-C 1 Capsule 1 CAP PO (09:26)
--- NOTE | 2018-02-14 11:00 | CASEMGMT ---
RN WILLIE Face to Face with patient for initial transition planning/care coordination assessment. RN WILLIE introduced self and role at [facility]. Patient resting in bed, alert and oriented. Patient willing to participate in assessment and is able to answer all questions appropriately. Care providers, pharmacy, and demographics verified. Pt currently has HD MWF @ [facility]. referral made d/t pt states wouldl daniel to talk with her about Advanced Directives. See link attached. Pt wishes to discharge home. States currently has [facility] and would like to resume with their services on discharge. LEONARD Melo, @ [facility] made aware pt is currently @ [facility] and per Dr Stockton, plans are for discharge today. Pt states she has no further needs or concerns at this time. CM to follow for discharge planning needs that may arise. Disposition Plan: Home w/resumption of [facility] HHC: assisted, PT/OT
--- NOTE | 2018-02-14 11:32 | DCINST_ITS ---
- Discharge Diagnoses Current Active Problems: Current Active and Chronic Problems (Last Reviewed 08/21/17 @ 14:33 by Pat Gomez) Ascites (Acute) You will use the following diet at home:: Calorie/Carbohydrate Controlled (specify 1200, 1400, etc) - 1800 ada, Cardiac Your food should be the consistency of: Regular Discharge Activity: May Not Drive Additional Instructions: Is scheduled for paracentesis on 02/18/[address] Donahue as an outpatient. Hold aspirin and Plavix for 5 days. Allergies/Adverse Reactions: Allergies lisinopril Allergy (Verified 02/13/18 19:16) Swelling nebivolol HCl [From Bystolic] Adverse Reaction (Verified 02/13/18 19:16) bradycardia BRADYCARDIA Medications to take at Discharge Acetaminophen [Tylenol] 650 mg PO Q4H PRN 07/27/17 Cholecalciferol (Vitamin D3) [Vitamin D3] 5,000 unit PO MOWEFR 07/27/17 Cyclobenzaprine HCl 5 mg PO BID PRN 07/27/17 Gabapentin [Neurontin] 100 mg PO TID 07/27/17 pantoprazole 40 mg tablet,delayed release 40 mg PO QDAY 08/21/17 promethazine 12.5 mg tablet 12.5 mg PO Q6H PRN 08/21/17 vitamin B complex and vitamin C no.20-folic acid 1 mg capsule 1 cap PO QDAY 08/21/17 Atorvastatin Calcium [Lipitor] 80 mg PO QHS 12/26/17 Carvedilol 12.5 mg PO BID 12/26/17 Docusate Calcium [Stool Softener] 240 mg PO BID 12/26/17 Doxazosin Mesylate 8 mg PO QHS 12/26/17 Furosemide [Lasix] 80 mg PO BID 12/26/17 Insulin Detemir [Levemir] 10 unit SQ QHS 12/26/17 Insulin Lispro Protamin/Lispro [Humalog Mix 50-50 Kwikpen] See Protocol SQ .COMPLEX 12/26/17 Isosorbide Mononitrate 20 mg PO BID 12/26/17 Lactulose [Chronulac] 40 ml PO DAILY PRN 12/26/17 Losartan Potassium [Cozaar] 50 mg PO BID 12/26/17 Sevelamer Carbonate [Renvela] 3,200 mg PO TID 12/26/17 Aspirin E.C. [Ecotrin] 81 mg PO DAILY@0800 #1 02/14/18 Clopidogrel Bisulfate [Plavix] 75 mg PO DAILY #1 02/14/18 Primary Care Physician: Allie Lund DO [Primary Care Provider] - Please follow up with your Primary Care Physician in: in 1-2 weeks Test Results: Test results from this visit will be discussed in further detail at your follow- up appointment, if applicable. Please Follow Up With: Anuradha rCawley DO When: in 2 weeks
[2018-02-14 11:36] LABS: Bedside Glucose 125 mg/dL (70-110)
--- NOTE | 2018-02-14 11:41 | PCM.DC.SUM ---
Discharge Date and Diagnosis Date of Admission: 02/13/18 Date of Discharge: 02/14/18 - Primary Discharge Diagnosis Active and Suspected Problems (Last Reviewed 08/21/17 @ 14:33 by Pat Gomez) Ascites (Acute) Mild abdominal discomfort and weight gain secondary to ascites - Secondary Discharge Diagnosis Chronic Problems (Last Reviewed 08/21/17 @ 14:33 by Pat Gomze) Fracture of fifth metatarsal bone of right foot (Chronic) Other specified peripheral vascular diseases (Chronic) Afib (Chronic) Congenital coronary artery anomaly (Chronic) S/P PTCA (percutaneous transluminal coronary angioplasty) (Chronic) NSTEMI (non-ST elevated myocardial infarction) (Chronic) Bradycardia (Chronic) CAD (coronary artery disease) (Chronic) Diabetes mellitus, type II (Chronic) Hyperlipidemia (Chronic) Hypothyroidism (Chronic) Anemia in chronic kidney disease (Chronic) Hypertension (Chronic) End stage renal disease on dialysis (Chronic) Hospital Course and Treatment Operations: - Summary of Care Provided: ] The patient is a 73 y/o F with history of chronic Hypoxic Respiratory Failure, CAD s/p NSTEMI and PCI, Diastolic CHF, Obesity, HTN, HLD, Obesity, AOCD, Diabetes mellitus type II, Chronic Atrial Flutter, ESRD on HD was admitted for increased dyspnea from worsening ascites with abdominal discomfort and increased weight gain. Patient is on dialysis and follows Dr. Crawley. The patient also has significant coronary artery disease with history of non-STEMI and PCI and is on aspirin and Plavix. Patient was seen and examined. General: awake, alert, oriented x 3 and cooperative; Skin: normal color, turgor, no icterus, cyanosis. HEENT: AT/NC, EOMI, Right PERRLA, blind Left eye, no carotid bruits or no JVD noted. Lungs: Air entry diminished in bilateral lung bases. no rales, ronchi or wheezing. no apparent respiratory distress Heart: Irregular, rate controlled; no gallop, rub audible, murmur w/ thrill. Abdomen: soft, no tenderness/guarding or rigidity. Moderate ascites present. Extremities: no cyanosis, clubbing, 2+ pedal edema. AVF LUE w/ +thrill. Neurological: patient awake, alert, oriented x 3; cognitive function intact;cranial nerves II-XII grossly normal, moving all 4 extremities, no focal deficits Initially patient was planned for morning paracentesis but this was canceled because she is on aspirin and Plavix. There is advised to hold for 5 days and schedule her planned paracentesis on 02/18/2018. Discharge meds reconciliation done. Patient has mild abdominal discomfort for which she was advised to take [id number] Tylenol as needed for mild to moderate and Motrin for severe pain. Discharge meds to consultation done. Discharge follow-up instructions completed. Home Medications: Medications to take at Discharge Acetaminophen [Tylenol] 650 mg PO Q4H PRN 07/27/17 Cholecalciferol (Vitamin D3) [Vitamin D3] 5,000 unit PO MOWEFR 07/27/17 Cyclobenzaprine HCl 5 mg PO BID PRN 07/27/17 Gabapentin [Neurontin] 100 mg PO TID 07/27/17 pantoprazole 40 mg tablet,delayed release 40 mg PO QDAY 08/21/17 promethazine 12.5 mg tablet 12.5 mg PO Q6H PRN 08/21/17 vitamin B complex and vitamin C no.20-folic acid 1 mg capsule 1 cap PO QDAY 08/21/17 Atorvastatin Calcium [Lipitor] 80 mg PO QHS 12/26/17 Carvedilol 12.5 mg PO BID 12/26/17 Docusate Calcium [Stool Softener] 240 mg PO BID 12/26/17 Doxazosin Mesylate 8 mg PO QHS 12/26/17 Furosemide [Lasix] 80 mg PO BID 12/26/17 Insulin Detemir [Levemir] 10 unit SQ QHS 12/26/17 Insulin Lispro Protamin/Lispro [Humalog Mix 50-50 Kwikpen] See Protocol SQ .COMPLEX 12/26/17 Isosorbide Mononitrate 20 mg PO BID 12/26/17 Lactulose [Chronulac] 40 ml PO DAILY PRN 12/26/17 Losartan Potassium [Cozaar] 50 mg PO BID 12/26/17 Sevelamer Carbonate [Renvela] 3,200 mg PO TID 12/26/17 Acetaminophen [Tylenol Extra Strength] 500 mg PO Q6H PRN PRN #10 tablet 02/14/18 Aspirin E.C. [Ecotrin] 81 mg PO DAILY@0800 #1 02/14/18 Clopidogrel Bisulfate [Plavix] 75 mg PO DAILY #1 02/14/18 Ibuprofen [Motrin] 400 mg PO Q6H PRN PRN #10 tablet 02/14/18 Following Prescrptions Were Given to Patient: Acetaminophen [Tylenol Extra Strength] 500 mg PO Q6H PRN PRN #10 tablet PRN Reason: mild pain/fever Ibuprofen [Motrin] 400 mg PO Q6H PRN PRN #10 tablet PRN Reason: mod to severe pain Primary Care Physician: Alile Lund DO [Primary Care Provider] - Medical Necessity - Tobacco Use Smoking Status: Former smoker Tobacco Use: Non-smoker Meaningful Use Info Meaningful Use Diagnoses (Choose all that apply): None applicable Code Visit OBSV E&M: 05474 Observation care discharge
--- NOTE | 2018-02-14 11:54 | CASEMGMT ---
Social Work Note RN WILLIE Harley informed this worker that pt was interested in speaking to this worker about Advanced Directives. SW met with pt. SW introduced self and role at [facility]. Pt is alert and orientated. Pt states she is interested in receiving information about Advanced Directives information but doesn't wish to complete them at this time. SW provided pt with advanced directive information booklet and informed pt that if she wishes to complete them while at [facility] to let staff know and this worker can assist pt with completed documents. Pt states understanding. Matilde Burton [employer], [employer]
== END 2018-02-14 13:30 | disposition home health service (06) ==
LOC: ED 19:49 → MS3 23:03
PROVIDERS: Admitting Provider Family Medicine; Emergency Provider Emergency Medicine; Family Provider Internal Medicine; PCP Internal Medicine; Visit Provider Internal Medicine
DX: R18.8 Other ascites (principal); I48.2 Chronic atrial fibrillation; I25.10 Atherosclerotic heart disease of native coronary artery without angina pectoris; E11.22 Type 2 diabetes mellitus with diabetic chronic kidney disease; N18.6 End stage renal disease; D63.1 Anemia in chronic kidney disease; E78.5 Hyperlipidemia, unspecified; Q24.5 Malformation of coronary vessels; I25.2 Old myocardial infarction; J96.11 Chronic respiratory failure with hypoxia; I13.2 Hypertensive heart and chronic kidney disease with heart failure and with stage 5 chronic kidney disease, or end stage renal disease; I50.30 Unspecified diastolic (congestive) heart failure; E66.9 Obesity, unspecified; Z99.2 Dependence on renal dialysis; Z79.899 Other long term (current) drug therapy; Z79.02 Long term (current) use of antithrombotics/antiplatelets; Z79.82 Long term (current) use of aspirin; Z79.4 Long term (current) use of insulin; Z68.33 Body mass index [BMI] 33.0-33.9, adult; Z71.3 Dietary counseling and surveillance; Z87.891 Personal history of nicotine dependence
CPT/HCPCS: 36415; 71046; 80048; 80076; 82962; 83690; 84484; 85025; 85610; 85730; 93005; 96374; 96375; 96376; 97163; 97165; 97802; 99218; 99282; A4216; G0378; J2405

== ENCOUNTER → 2018-02-19 13:49 | Outpatient (CLI) | payer MEDICARE, OTHER, SELFPAY ==
[2017-11-22 13:23] VITALS: BMI 27.1
--- NOTE | 2018-02-19 13:55 | US_ITS ---
STUDY: ABDOMINAL ULTRASOUND - 4 QUADRANT REASON FOR VISIT: Female, 73 years old. ASCITES SURVEY TECHNIQUE: Ultrasound evaluation of the all 4 quadrant was performed with real-time and static martinez-scale imaging. TECHNICAL QUALITY: Adequate. COMPARISON: None. FINDINGS: There is very small amount of free fluid in the abdomen. US/Abdomen Limited IMPRESSION: Paracentesis could not be performed due to very little amount of fluid in the abdomen. Electronically Signed: Fern Skinner MD at 15:00 EDT Tel , Service support ,
== END ==
PROVIDERS: Family Provider Internal Medicine; PCP Internal Medicine; Referring Provider Internal Medicine; Visit Provider Internal Medicine
DX: R18.8 Other ascites (principal)
CPT/HCPCS: 76705

== ENCOUNTER → 2018-02-27 08:37 | Outpatient (CLI) | payer MEDICARE, OTHER, SELFPAY ==
[2017-11-22 13:23] VITALS: BMI 27.1
--- NOTE | 2018-02-27 08:48 | ECHOD_ITS ---
Reason For Study: Pericardial friction rub Procedure This was a 2D Doppler, Color Flow transthoracic echocardiogram. Exam performed in department. Left Ventricle Normal size and thickness. The estimated ejection fraction is 65 %. No regional wall motion abnormalities noted. Right Ventricle Severely dilated right ventricle. Moderate global right ventricular systolic dysfunction. Atria The left atrium is severely enlarged. The right atrium is moderately enlarged. Aneurysmal atrial septum. Mitral Valve Mild diffuse mitral valve thickening. Severe mitral annular calcification extending into the posterior leaflet. Trivial mitral valve insufficiency. Tricuspid Valve Normal tricuspid valve. Moderately severe (3+) tricuspid valve insufficiency. Right ventricular systolic pressure estimated to be 35 mmHg. Aortic Valve Trisinus/trileaflet aortic valve. Moderate diffuse aortic valve thickening. Mild restriction of the aortic valve. Mild aortic stenosis. Pulmonic Valve The pulmonic valve is not well visualized. Great Vessels Normal aortic root. Normal arch. The inferior vena cava is dilated. No collapse of the inferior vena cava. Pericardium/Pleural No pericardial effusion. MMode/2D Measurements & Calculations LVIDd: 4.6 cm IVSd: 1.2 cm LVOT diam: 2.0 cm LVIDs: 2.9 cm LVPWd: 1.2 cm LVOT area: 3.1 cm2 RVDd: 4.8 cm FS: 36.6 % Ao root diam: 3.5 cm LAV(MOD-bp): 83.8 ml LA A4 area: 25.2 cm2 LA dimension: 4.3 cm LAV(MOD-bp) Indexed: 42.8 ml/m2 LAV(MOD-sp2): 78.8 ml LAV(MOD-sp4): 77.9 ml RA A4 area: 21.1 cm2 Doppler Measurements & Calculations MV E max buddy: 130.3 cm/sec Lat Peak E' Buddy: 8.9 cm/sec Med Peak E' Buddy: 6.6 cm/sec E/E' lat: 14.6 E/E' med: 19.8 Ao V2 max: 208.6 cm/sec LV V1 max: 139.4 cm/sec SV(LVOT): 85.7 ml Ao max P.4 mmHg LV V1 max P.8 mmHg Ao V2 mean: 146.0 cm/sec LV V1 mean P.2 mmHg Ao mean P.5 mmHg LV V1 mean: 97.1 cm/sec Ao V2 VTI: 44.2 cm LV V1 VTI: 27.8 cm JOSHUA(I,D): 1.9 cm2 JOSHUA(V,D): 2.1 cm2 PA V2 max: 99.5 cm/sec TR max buddy: 221.3 cm/sec TR max P.6 mmHg Interpretation Summary The estimated ejection fraction is 65 %. Severely dilated right ventricle. The left atrium is severely enlarged. The right atrium is moderately enlarged. Trivial mitral valve insufficiency. Moderately severe (3+) tricuspid valve insufficiency. Right ventricular systolic pressure estimated to be 35 mmHg, but may be underestimated. Mild aortic stenosis. Compared to echo report dated 11/19/2017, no appreciable changes noted. Ordering Physician: Allie Lund Referring Physician: Allie Lund Performed By: Anya Sosa RDCS
--- NOTE | 2018-03-04 17:25 | LEAS_ITS ---
Arterial Study - Arterial Study Arterial Study: This is a 73-year-old female with a history of diabetes mellitus, coronary artery disease, hyperlipidemia, hypertension, myocardial infarction, and peripheral arterial occlusive disease. The patient was brought to the noninvasive vascular laboratory at this time for the purpose of bilateral noninvasive lower extremity arterial assessment. Doppler signal assessment was used to evaluate the pulses at ankle level bilaterally. Biphasic waveforms were noted bilaterally. Segmental limb pressures were obtained bilaterally. Ankle pressures, as determined by posterior tibial and dorsalis pedis pulses, could not be obtained on either side due to the noncompressibility of the vasculature. The right digital pressure was measured at 68 mmHg. The left digital pressure was measured at 58 mmHg. Pulse?volume recordings were obtained bilaterally and segmentally. Waveform amplitudes appeared to be mildly diminished, without significant augmentation between thigh and calf levels bilaterally. Resting ankle?brachial indices could not be calculated on either side due to the noncompressibility of the vasculature. Digital?brachial indices were calculated bilaterally. The right digital- brachial index was calculated to be 0.66. The left digital-brachial index was calculated to be 0.56. Impression: Based upon the findings of this resting noninvasive lower extremely arterial study, there is evidence of arterial calcification in the arterial tree bilaterally at ankle level, rendering the arteries noncompressible at ankle level. Therefore, ankle?brachial indices could not be determined on either side. Digital-brachial indices are mildly diminished bilaterally, suggesting the presence of mild arterial occlusive disease in the lower extremities bilaterally. Clinical correlation is advised.
== END ==
PROVIDERS: Family Provider Internal Medicine; PCP Internal Medicine; Referring Provider Internal Medicine; Visit Provider Internal Medicine
DX: R01.2 Other cardiac sounds (principal); I73.9 Peripheral vascular disease, unspecified
CPT/HCPCS: 93306; 93923

== ENCOUNTER 2018-04-12 18:45 | Inpatient (IN) | payer MEDICARE, OTHER, SELFPAY ==
[2017-11-22 13:23] VITALS: BMI 27.1
[2018-04-12 18:46] VITALS: BP 147/51; PULSE 78; RESP 16; TEMP 36.3; O2SAT 95; BMI 33.3
--- NOTE | 2018-04-12 19:09 | EKG12_ITS ---
Test Reason : WEAKNESS Blood Pressure : / mmHG Vent. Rate : 067 BPM Atrial Rate : 078 BPM P-R Int : 000 ms QRS Dur : 090 ms QT Int : 444 ms P-R-T Axes : 000 029 162 degrees QTc Int : 469 ms Atrial fibrillation with premature ventricular or aberrantly conducted complexes T wave abnormality, consider lateral ischemia Abnormal ECG Confirmed by QUIRINO NEWMAN, NANCIE ([id number]), supervising film or videotape editor CHRISTINA JONES ([id number]) on 04/15/2018 10:57:43 AM Referred By: AMANDA Confirmed By:NANCIE WIN MD
--- NOTE | 2018-04-12 19:30 | RAD_ITS ---
STUDY: X-RAY CHEST REASON FOR EXAM: Female, 73 years old. Weakness before and after dialysis. Shortness of breath. TECHNIQUE: Single AP portable view of the chest. COMPARISON: February 13, 2018. FINDINGS: There is a decreased inspiratory effort. There is no new infiltrate or mass. There is no demonstrated pleural abnormality. The heart appears mildly enlarged. Normal mediastinum and roxy. Normal visualized pulmonary arteries. Normal visualized aortic arch and descending thoracic aorta. The thoracic spine is obscured by the mediastinum. There is degenerative osteoarthritis of the bilateral shoulders. There is no demonstrated abnormality of the visualized soft tissue structures of the upper abdomen. RAD/Chest 1 View (Portable) IMPRESSION: Decrease inspiratory effort with stable cardiomegaly. There is no other interval change. Electronically Signed: Guerrero Reese DO at 20:36 EST Tel [phone], Service support ,
[2018-04-12 19:37] LABS: Absolute Lymphocyte Count 0.56 X10^3/ul (0.83-4.51); Absolute Neutrophil Count 1.3 X10^3/uL (2.0-7.7); Basophil# 0.05 X10^3/uL; Basophil% 2.1 % (0-1); Eosinophil# 0.08 X10^3/uL; Eosinophils% 3.4 % (0-5); Hematocrit 36.2 % (37-47); Lymphocyte # 0.56 X10^3/ul (4.0); Mean Corp Hgb Conc 30.4 g/gl (32-36); Mean Corpuscular Hgb 28.1 pg (27.0-32.0); Mean Corpuscular Volume 92.3 fL (81-99); Mean Platelet Vol. 10.1 fl (6.2-12.0); Monocyte# 0.38 X10^3/uL; Monocyte% 16.3 % (0-10); Neutrophil # 1.26 X10^3/uL (2.7-7.7); Neutrophil % 54.2 % (47-70); Platelet Count 131 K/mm3 (150-450); RBC Distribution Width CV 20.5 % (11.6-14.6); RBC Distribution Width SD 68.4 fl (35.1-43.9); Red Blood Count 3.92 M/mm3 (4.2-5.4); White Blood Count 2.3 K/mm3 (4.4-11.0)
[2018-04-12 19:38] LABS: Differential Indicated SCAN CRITERIA MET; POSITIVE COUNT NO; POSITIVE DIFFERENTIAL YES; POSITIVE MORPHOLOGY YES
[2018-04-12 19:44] LABS: Anion Gap 8 (5-15); BUN 34 mg/dL (7-18); BUN/Creat Ratio 12.3 RATIO (10-20); Calcium,Total 8.9 mg/dL (8.5-10.1); Chloride 93 mmol/L (98-107); Creatinine, Serum 2.77 mg/dL (0.55-1.02); EST Glomerular Filtration Rate 18 mL/min (>60); Est Glom Filt Rate - Afr Amer 21 mL/min (>60); Estimated Creatinine Clearance 15.79 ml/min; Glucose 120 mg/dL (74-106); Potassium 5.3 mmol/L (3.5-5.1); Sodium Level 131 mmol/L (136-145)
[2018-04-12 20:06] LABS: Anisocytosis 1+; Hypochromasia 1+; Platelet Estimate SLT DEC (ADEQ); Polychromasia RARE
[2018-04-12 20:06] LABS: Bacteria 0 SEEN /hpf (None Seen); Mucous, Urine 0 SEEN /hpf (<or=2+); Red Blood Cells-Urine 0 SEEN /hpf (0-5); Squamous Epithelial Cells - UA 0 SEEN /hpf (5-10)
[2018-04-12 20:08] LABS: Ovalocyte RARE; Schistocytes RARE
[2018-04-12 20:10] VITALS: BMI 33.3
[2018-04-12 20:13] LABS: Color, Urine Yellow (Yellow); Glucose, Dipstick Normal (Normal); Ketone-Dipstick Negative (Negative); Leukocyte Esterase-Dipstick 25 /ul (Negative); Nitrite-Dipstick Negative (Negative); Occult Blood-Urine 25 /ul (Negative); Protein-Dipstick 100 mg/dl (Negative); Urine Bilirubin Dipstick Negative (Negative); Urine Clarity Clear (Clear); Urine Urobilinogen Normal (Normal)
[2018-04-12 20:27] LABS: Renal Epithelial Cells 0-5 SEEN /hpf (0-5); Transitional Epithelial - Ur 0-5 SEEN /hpf (0-5); White Blood Cells 0-5 SEEN /hpf (0-5)
--- NOTE | 2018-04-12 21:05 | PCM.HP.STD ---
Problem List (1) Fall Status: Acute Qualifiers: Encounter type: initial encounter Qualified Code(s): W19.XXXA - Unspecified fall, initial encounter (2) Gait instability Status: Acute (3) Afib Status: Chronic Qualifiers: Atrial fibrillation type: unspecified Qualified Code(s): I48.91 - Unspecified atrial fibrillation (4) S/P PTCA (percutaneous transluminal coronary angioplasty) Status: Chronic (5) NSTEMI (non-ST elevated myocardial infarction) Status: Chronic (6) CAD (coronary artery disease) Status: Chronic Qualifiers: Coronary Disease-Associated Artery/Lesion type: unspecified vessel or lesion type [place] vs. transplanted heart: unspecified whether [place] or transplanted heart Associated angina: angina presence unspecified Qualified Code(s): I25.10 - Atherosclerotic heart disease of [place] coronary artery without angina pectoris (7) Diabetes mellitus, type II Status: Chronic Qualifiers: Diabetes mellitus long term care pharmacist insulin use: with halfway use Diabetes mellitus complication status: with unspecified complications Qualified Code(s): E11.8 - Type 2 diabetes mellitus with unspecified complications; Z79.4 - snf (current) use of insulin (8) Hyperlipidemia Status: Chronic Qualifiers: Hyperlipidemia type: pure hypercholesterolemia Qualified Code(s): E78.00 - Pure hypercholesterolemia, unspecified; E78.0 - Pure hypercholesterolemia (9) Hypothyroidism Status: Chronic Qualifiers: Hypothyroidism type: unspecified Qualified Code(s): E03.9 - Hypothyroidism, unspecified (10) Anemia in chronic kidney disease Status: Chronic Qualifiers: Chronic kidney disease stage: on chronic dialysis Qualified Code(s): N18.6 - End stage renal disease; D63.1 - Anemia in chronic kidney disease; Z99.2 - Dependence on renal dialysis (11) Hypertension Status: Chronic Qualifiers: Hypertension type: essential hypertension Qualified Code(s): I10 - Essential (primary) hypertension (12) End stage renal disease on dialysis Status: Chronic History of Present Illness Date of Admission: 04/12/18 Chief Complaint: Weakness, fatigue, near fall x 2 The patient is a 73 y/o F w/ PMHx: Chronic Hypoxic Respiratory Failure, CAD s/p NSTEMI and PCI, Diastolic CHF, Obesity, HTN, HLD, Obesity, AOCD, Diabetes mellitus type II, Chronic Atrial Flutter, ESRD on HD who presents to the [facility] ED on 04/12/18 with history of ongoing severe weakness, generalized fatigue w/ near fall x 2 over the past 48-72 hours, noted upon presentation to dialysis to be above her dry weight by 7 kg, weak and nearly falling from the vehicle while attempting to walk into HD. She denies any recent fever, chills, nausea, emesis, abdominal pain, change in bowel pattern (chronic constipation w/ bowel regimen usage). HD called ED secondary to the severity of her weakness, noted to following HD having to use the tk lift. In the ED work-up included T 97.3, heart rate 78, BP 147/51, respiratory rate 16, 95% on room air, CBC with WBC 2.3, hemoglobin 11, platelet 131 without left shift, BMP with sodium 131, potassium 5.3, chloride 93, BUN/creatinine 34/2.77, glucose 120, analysis not market appearing, chest x-ray with decreased inspiratory effort with stable cardiomegaly otherwise with no acute findings. Past Medical History Past Medical History (Chronic Problems): Chronic Problems (Last Reviewed 08/21/17 @ 14:33 by Pat Gomez) Fracture of fifth metatarsal bone of right foot (Chronic) Other specified peripheral vascular diseases (Chronic) Afib (Chronic) Congenital coronary artery anomaly (Chronic) S/P PTCA (percutaneous transluminal coronary angioplasty) (Chronic) NSTEMI (non-ST elevated myocardial infarction) (Chronic) Bradycardia (Chronic) CAD (coronary artery disease) (Chronic) Diabetes mellitus, type II (Chronic) Hyperlipidemia (Chronic) Hypothyroidism (Chronic) Anemia in chronic kidney disease (Chronic) Hypertension (Chronic) End stage renal disease on dialysis (Chronic) Medical History: Medical History (Last Reviewed 08/21/17 @ 14:33 by Pat Gomez) Fracture of fifth metatarsal bone of right foot (Chronic) S92.351A Fall (Acute) W19.XXXA Gait instability (Acute) R26.81 Other specified peripheral vascular diseases (Chronic) I73.89 Pain in right ankle and joints of right foot (Acute) M25.571 Ileus (Acute) K56.7 Afib (Chronic) I48.91 Congenital coronary artery anomaly (Chronic) Q24.5 Unstable angina pectoris (Acute) NSTEMI (non-ST elevated myocardial infarction) (Chronic) I21.4 Hyperkalemia (Acute) E87.5 Chest pressure (Acute) R07.89 Bradycardia (Chronic) R00.1 CAD (coronary artery disease) (Chronic) I25.10 Diabetes mellitus, type II (Chronic) E11.9 Hyperlipidemia (Chronic) E78.5 Hypothyroidism (Chronic) E03.9 Anemia in chronic kidney disease (Chronic) N18.9, D63.1 Hypertension (Chronic) I10 End stage renal disease on dialysis (Chronic) N18.6, Z99.2 History of hysterectomy Z90.710 Allergies lisinopril Allergy (Verified 04/12/18 18:48) Swelling nebivolol HCl [From Bystolic] Adverse Reaction (Verified 04/12/18 18:48) bradycardia BRADYCARDIA Home Medications: Ambulatory Orders Medication Instructions Recorded Cholecalciferol (Vitamin D3) 5,000 unit PO MOWEFR 07/27/17 [Vitamin D3] Cyclobenzaprine HCl 5 mg PO BID PRN 07/27/17 Gabapentin [Neurontin] 100 mg PO TID 07/27/17 pantoprazole 40 mg tablet,delayed 40 mg PO QDAY 08/21/17 release promethazine 12.5 mg tablet 12.5 mg PO Q6H PRN 08/21/17 vitamin B complex and vitamin C 1 cap PO QDAY 08/21/17 no.20-folic acid 1 mg capsule Atorvastatin Calcium [Lipitor] 80 mg PO QHS 12/26/17 Carvedilol 12.5 mg PO BID 12/26/17 Docusate Calcium [Stool Softener] 240 mg PO BID 12/26/17 Doxazosin Mesylate 8 mg PO QHS 12/26/17 Insulin Detemir [Levemir] 10 unit SQ QHS 12/26/17 Insulin Lispro Protamin/Lispro See Protocol SQ .COMPLEX 12/26/17 [Humalog Mix 50-50 Kwikpen] Lactulose [Chronulac] 40 ml PO DAILY PRN 12/26/17 Losartan Potassium [Cozaar] 50 mg PO BID 12/26/17 Sevelamer Carbonate [Renvela] 1,600 mg PO TIDCM 12/26/17 Acetaminophen [Tylenol Extra 500 mg PO Q6H PRN PRN #10 tablet 02/14/18 Strength] Aspirin E.C. [Ecotrin] 81 mg PO DAILY@0800 #1 02/14/18 Clopidogrel Bisulfate [Plavix] 75 mg PO DAILY #1 02/14/18 Calcium Acetate 2,001 mg PO TID PRN 04/12/18 Isosorbide Mononitrate [Isosorbide 30 mg PO BID 04/12/18 Mononitrate ER] Oxycodone HCl/Acetaminophen 1 tab PO Q6H PRN PRN 04/12/18 [Oxycodon-Acetaminophen 7.5-325] Ropinirole HCl [Requip] 0.5 mg PO QHS 04/12/18 Surgical History: Surgical History (Last Updated 08/21/17 @ 14:35 by Pat Gomez) S/P PTCA (percutaneous transluminal coronary angioplasty) (Chronic) Z98.61 History of colectomy Z90.49 History of laparoscopic cholecystectomy Z90.49 History of total right knee replacement Z96.651 Hx of foot surgery Z98.890 history left A-V fistula Surgical History: - - Left upper extremity fistula, cholecystectomy, back surgery, colon resection with history of diverticulitis, hysterectomy, appendectomy, right knee surgery, right total knee replacement, right foot surgery, left knee surgery, left foot surgery, PCI. 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 Lives: Spouse/ Significant Other Smoking Status: Former smoker Tobacco Use: Non-smoker Alcohol: None Drugs: None - *Family History Maternal Family History: Family History (Last Updated 08/21/17 @ 14:36 by Pat Gomez) Sister Diabetes Hypertension History Items: Cancer - uterine Paternal Family History: Family History (Last Updated 08/21/17 @ 14:36 by Pat Gomez) Sister Diabetes Hypertension History Items: Cancer Sibling Family History: Family History (Last Updated 08/21/17 @ 14:36 by Pat Gomez) Sister Diabetes Hypertension History Items: Diabetes Review of Systems Constitutional: Reports: Malaise, Weakness, Fatigue. Denies: Chills, Fever, Weight Change HEENT: Denies: Head Aches, Sinus Congestion, Sinus Drainage Cardiovascular: Denies: Chest Pain, Palpitations Respiratory: Denies: Cough, Shortness of breath at rest, Sputum production Gastrointestinal: Reports: Constipation, Diarrhea. Denies: Abdominal Pain, Nausea, Vomiting Genitourinary: Denies: Dysuria Musculoskeletal: Reports: Back Pain, Joint Pain. Denies: Joint Tenderness Skin: Reports: Skin Changes. Denies: Rash, Wounds Neurological: Denies: Numbness, Tingling, Focal weakness Psychiatric: Denies: Anxiety, Depression, Homicidal Ideations, Suicidal Ideations Hematologic/ Lymphatic: Reports: Anemia, Easy Bruising, Easy Bleeding VTE Information - Inpt Only VTE Present on Admission: No VTE Mechan Device Prophylaxis: SCD's VTE Pharm Prophylaxis ordered?: Yes Subjective: Seated upright in the ED bed, fatigued appearing. Objective: Physical Examination: General: awake, alert, oriented x 3 and cooperative, seated upright in the ED bed in no apparent distress, fatigued appearing. Skin: normal color, turgor, no icterus, cyanosis except BL LE stasis blisters, edema as noted. HEENT: AT/NC, EOMI, PERRLA, mildly dry MM, no carotid bruits or JVD noted. Lungs: Diminished BS BL bases, moderate effort, no rales, ronchi or wheezing. Heart: Bradycardic with irregular rhythm; no gallop, rub audible. Abdomen: soft, obese, NTTP, ND, normal BS, no HSM. Extremities: no cyanosis, clubbing, BL LE 2+ ankle to distal [place] edema. Neurological: patient awake, alert, oriented x 3; cognitive function intact; pupils equally reactive to light and accomodation; cranial nerves II-XII grossly normal, moving all 4 extremities, no focal deficits, strength severely globally decreased secondary to acute presentation. Psychiatric: affect appears flat, fatigued, no acute evidence of depressive or anxiety feelings. - Physical Exam Vital Signs Temp Pulse Resp BP Pulse Ox 97.3 F L 78 16 147/51 H 95 04/12/18 18:46 04/12/18 18:46 04/12/18 18:46 04/12/18 18:46 04/12/18 18:46 Weight: 200 lb Body Mass Index (BMI) 33.3 Finger Stick Blood Glucose 99 Laboratory Tests Past 24 Hrs 04/12/18 04/12/18 04/12/18 19:27 19:27 20:02 WBC 2.3 L RBC 3.92 L Hgb 11.0 L Hct 36.2 L MCV 92.3 MCH 28.1 MCHC 30.4 L RDW 20.5 H RDW Differential 68.4 H Plt Count 131 L MPV 10.1 Immature Gran % (Auto) 0.000 Neut % (Auto) 54.2 Lymph % (Auto) 24.0 [place] % (Auto) 16.3 H Eos % (Auto) 3.4 Baso % (Auto) 2.1 H Absolute Neuts (auto) 1.3 L Absolute Lymphs (auto) 0.56 L Total Counted Not Reportable Differential Comment Diff Path Review May foll Platelet Estimate SLT DEC Polychromasia RARE Hypochromasia 1+ Anisocytosis 1+ Ovalocytes RARE Schistocytes RARE Sodium 131 L Potassium 5.3 H Chloride 93 L Carbon Dioxide 30.0 Anion Gap 8 BUN 34 H Creatinine 2.77 H Estim Creat Clear Calc 15.79 Est GFR (MDRD) Af Amer 21 L Est GFR (MDRD) Non-Af 18 L BUN/Creatinine Ratio 12.3 Glucose 120 H Calcium 8.9 Urine Color Yellow Urine Clarity Clear Urine pH 8.0 Ur Specific [place] 1.010 Urine Protein 100 H Urine Glucose (UA) Normal Urine Ketones Negative Urine Occult Blood 25 H Urine Nitrite Negative Urine Bilirubin Negative Urine Urobilinogen Normal Ur Leukocyte Esterase 25 H Urine RBC 0 SEEN Urine WBC 0-5 SEEN Ur Squamous Epith Cells 0 SEEN Ur Transition Epith Cell 0-5 SEEN Ur Renal Epithelial Cell 0-5 SEEN Urine Bacteria 0 SEEN Urine Mucus 0 SEEN Assessment/Plan All Active Problems (Last Reviewed 08/21/17 @ 14:33 by Pat Gomez) Ascites (Acute) Hypervolemia (Acute) Hypotension (Acute) Fall (Acute) Gait instability (Acute) Pain in right ankle and joints of right foot (Acute) Ileus (Acute) Unstable angina pectoris (Acute) Hyperkalemia (Acute) Chest pressure (Acute) The patient is a 73 y/o F w/ PMHx: Chronic Hypoxic Respiratory Failure, CAD s/p NSTEMI and PCI, Diastolic CHF, Obesity, HTN, HLD, Obesity, AOCD, Diabetes mellitus type II, Chronic Atrial Flutter, ESRD on HD who presents to the [facility] ED on 04/12/18 with history of ongoing severe weakness, generalized fatigue w/ near fall x 2 over the past 48-72 hours, noted upon presentation to dialysis to be above her dry weight by 7 kg, weak and nearly falling from the vehicle while attempting to walk into HD. (1) Debility, Weakness: Unclear specific etiology, extremely weak for the last several days, although noting more prominent weakness since her last admission. Will admit to [facility], maintain on fall precautions, appropriate VS and labs upon presentation, however liver panel not obtained, will obtain hepatic profile in addition, obtain PT, OT, CM consultations, given current presentation home likely unsafe discharge option, likely will need SNF especially given near frequent falls secondary to her weakness. Will hold sedative phenergan scheduled and low dose BID flexeril as likely contributing. (2) Diastolic CHF: Will maintain on home regimen asa, plavix, statin, coreg, ARB regimen with hold parameters, HD per usual regimen, performed on day of ED presentation. BL IOANA wraps to BL LE, elevation. Stasis changes noted, eucerin cream and wound RN to follow additionally. Defer IVFs given recent increased dry weight, monitor weights daily. (2) Chronic Hypoxic Respiratory Failure: Secondary to her underlying CHF, ESRD history, maintain on her home chronic supplementation, HOB, IS. (3) AOCD: Admission Hgb 11, baseline appears 8-10 range, stable, repeat CBC in AM. (4) CAD: s/p NSTEMI and PCI, patient w/ known coronary disease with nonobstructive disease of her left main and LAD, and occluded anomalous left circumflex, and disease of her proximal and distal RCA which was to be evaluated and corrected at [facility] for a 2017. Continue home asa, plavix, statin, Coreg, ARB. (5) Hypertension: Continue home regimen including Coreg, doxazosin, Lasix, isosorbide, losartan regimen with hold parameters, PRN hydralazine. (6) Hyperlipidemia: Continue home statin regimen. (7) Diabetes mellitus type II: Continue home insulin regimen, ADA/renal diet, accu checks w/ ISS, nutrition consultation for education and teaching. (8) Chronic Atrial Flutter: Previously on amiodarone and coreg, transitioned to coreg only secondary to issues with bradycardia, maintain on asa, plavix, not anticoagulated secondary to fall risk. (9) ESRD: On HD MWF, HD day of ED presentation, following w/ Dr. Crawley. (10) Obesity: Weight loss and lifestyle changes encouraged, nutrition consulted for education and teaching. (11) GERD: PPI. (12) DVT Prophylaxis: SCDs, heparin. (13) CODE status: Discussed CODE status at length including difference between FULL code, DNR-CCA and DNR-CC status. Following discussions about the differences in these status, requested Full Code status. Noted that we had discussed status concept prior and she had been encouraged to review these items outpatient. Advanced Care Planning Face to Face Time: 16 minutes. Code Visit OBSV E&M: 40733 Initial observation care L3 Procedures: 41958 Advncd Care Plan 30 Min
--- NOTE | 2018-04-12 21:15 | HP.PCM_ITS ---
Problem List (1) Fall Status: Acute Qualifiers: Encounter type: initial encounter Qualified Code(s): W19.XXXA - Unspecified fall, initial encounter (2) Gait instability Status: Acute (3) Afib Status: Chronic Qualifiers: Atrial fibrillation type: unspecified Qualified Code(s): I48.91 - Unspecified atrial fibrillation (4) S/P PTCA (percutaneous transluminal coronary angioplasty) Status: Chronic (5) NSTEMI (non-ST elevated myocardial infarction) Status: Chronic (6) CAD (coronary artery disease) Status: Chronic Qualifiers: Coronary Disease-Associated Artery/Lesion type: unspecified vessel or lesion type [place] vs. 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: with fci use Diabetes mellitus complication status: with unspecified complications Qualified Code(s): E11.8 - Type 2 diabetes mellitus with unspecified complications; Z79.4 - group home (current) use of insulin (8) Hyperlipidemia Status: Chronic Qualifiers: Hyperlipidemia type: pure hypercholesterolemia Qualified Code(s): E78.00 - Pure hypercholesterolemia, unspecified; E78.0 - Pure hypercholesterolemia (9) Hypothyroidism Status: Chronic Qualifiers: Hypothyroidism type: unspecified Qualified Code(s): E03.9 - Hypothyroidism, unspecified (10) Anemia in chronic kidney disease Status: Chronic Qualifiers: Chronic kidney disease stage: on chronic dialysis Qualified Code(s): N18.6 - End stage renal disease; D63.1 - Anemia in chronic kidney disease; Z99.2 - Dependence on renal dialysis (11) Hypertension Status: Chronic Qualifiers: Hypertension type: essential hypertension Qualified Code(s): I10 - Essential (primary) hypertension (12) End stage renal disease on dialysis Status: Chronic History of Present Illness Date of Admission: 04/12/18 Chief Complaint: Weakness, fatigue, near fall x 2 The patient is a 73 y/o F w/ PMHx: Chronic Hypoxic Respiratory Failure, CAD s/p NSTEMI and PCI, Diastolic CHF, Obesity, HTN, HLD, Obesity, AOCD, Diabetes mellitus type II, Chronic Atrial Flutter, ESRD on HD who presents to the [facility] ED on 04/12/18 with history of ongoing severe weakness, generalized fatigue w/ near fall x 2 over the past 48-72 hours, noted upon presentation to dialysis to be above her dry weight by 7 kg, weak and nearly falling from the vehicle while attempting to walk into HD. She denies any recent fever, chills, nausea, emesis, abdominal pain, change in bowel pattern (chronic constipation w/ bowel regimen usage). HD called ED secondary to the severity of her weakness, noted to following HD having to use the tk lift. In the ED work-up included T 97.3, heart rate 78, BP 147/51, respiratory rate 16, 95% on room air, CBC with WBC 2.3, hemoglobin 11, platelet 131 without left shift, BMP with sodium 131, potassium 5.3, chloride 93, BUN/creatinine 34/2.77, glucose 120, analysis not market appearing, chest x-ray with decreased inspiratory effort with stable cardiomegaly otherwise with no acute findings. Past Medical History Past Medical History (Chronic Problems): Chronic Problems (Last Reviewed 08/21/17 @ 14:33 by Pat Gomez) Fracture of fifth metatarsal bone of right foot (Chronic) Other specified peripheral vascular diseases (Chronic) Afib (Chronic) Congenital coronary artery anomaly (Chronic) S/P PTCA (percutaneous transluminal coronary angioplasty) (Chronic) NSTEMI (non-ST elevated myocardial infarction) (Chronic) Bradycardia (Chronic) CAD (coronary artery disease) (Chronic) Diabetes mellitus, type II (Chronic) Hyperlipidemia (Chronic) Hypothyroidism (Chronic) Anemia in chronic kidney disease (Chronic) Hypertension (Chronic) End stage renal disease on dialysis (Chronic) Medical History: Medical History (Last Reviewed 08/21/17 @ 14:33 by Pat Gomez) Fracture of fifth metatarsal bone of right foot (Chronic) S92.351A Fall (Acute) W19.XXXA Gait instability (Acute) R26.81 Other specified peripheral vascular diseases (Chronic) I73.89 Pain in right ankle and joints of right foot (Acute) M25.571 Ileus (Acute) K56.7 Afib (Chronic) I48.91 Congenital coronary artery anomaly (Chronic) Q24.5 Unstable angina pectoris (Acute) NSTEMI (non-ST elevated myocardial infarction) (Chronic) I21.4 Hyperkalemia (Acute) E87.5 Chest pressure (Acute) R07.89 Bradycardia (Chronic) R00.1 CAD (coronary artery disease) (Chronic) I25.10 Diabetes mellitus, type II (Chronic) E11.9 Hyperlipidemia (Chronic) E78.5 Hypothyroidism (Chronic) E03.9 Anemia in chronic kidney disease (Chronic) N18.9, D63.1 Hypertension (Chronic) I10 End stage renal disease on dialysis (Chronic) N18.6, Z99.2 History of hysterectomy Z90.710 Allergies lisinopril Allergy (Verified 04/12/18 18:48) Swelling nebivolol HCl [From Bystolic] Adverse Reaction (Verified 04/12/18 18:48) bradycardia BRADYCARDIA Home Medications: Ambulatory Orders Medication Instructions Recorded Cholecalciferol (Vitamin D3) 5,000 unit PO MOWEFR 07/27/17 [Vitamin D3] Cyclobenzaprine HCl 5 mg PO BID PRN 07/27/17 Gabapentin [Neurontin] 100 mg PO TID 07/27/17 pantoprazole 40 mg tablet,delayed 40 mg PO QDAY 08/21/17 release promethazine 12.5 mg tablet 12.5 mg PO Q6H PRN 08/21/17 vitamin B complex and vitamin C 1 cap PO QDAY 08/21/17 no.20-folic acid 1 mg capsule Atorvastatin Calcium [Lipitor] 80 mg PO QHS 12/26/17 Carvedilol 12.5 mg PO BID 12/26/17 Docusate Calcium [Stool Softener] 240 mg PO BID 12/26/17 Doxazosin Mesylate 8 mg PO QHS 12/26/17 Insulin Detemir [Levemir] 10 unit SQ QHS 12/26/17 Insulin Lispro Protamin/Lispro See Protocol SQ .COMPLEX 12/26/17 [Humalog Mix 50-50 Kwikpen] Lactulose [Chronulac] 40 ml PO DAILY PRN 12/26/17 Losartan Potassium [Cozaar] 50 mg PO BID 12/26/17 Sevelamer Carbonate [Renvela] 1,600 mg PO TIDCM 12/26/17 Acetaminophen [Tylenol Extra 500 mg PO Q6H PRN PRN #10 tablet 02/14/18 Strength] Aspirin E.C. [Ecotrin] 81 mg PO DAILY@0800 #1 02/14/18 Clopidogrel Bisulfate [Plavix] 75 mg PO DAILY #1 02/14/18 Calcium Acetate 2,001 mg PO TID PRN 04/12/18 Isosorbide Mononitrate [Isosorbide 30 mg PO BID 04/12/18 Mononitrate ER] Oxycodone HCl/Acetaminophen 1 tab PO Q6H PRN PRN 04/12/18 [Oxycodon-Acetaminophen 7.5-325] Ropinirole HCl [Requip] 0.5 mg PO QHS 04/12/18 Surgical History: Surgical History (Last Updated 08/21/17 @ 14:35 by Pat Gomez) S/P PTCA (percutaneous transluminal coronary angioplasty) (Chronic) Z98.61 History of colectomy Z90.49 History of laparoscopic cholecystectomy Z90.49 History of total right knee replacement Z96.651 Hx of foot surgery Z98.890 history left A-V fistula Surgical History: - - Left upper extremity fistula, cholecystectomy, back surgery, colon resection with history of diverticulitis, hysterectomy, appendectomy, right knee surgery, right total knee replacement, right foot surgery, left knee surgery, left foot surgery, PCI. Psychiatric History: No pertinent psych hx CLINICAL SUPPORT NURSE History: No pertinent CLINICAL SUPPORT NURSE history Lives: Spouse/ Significant Other Smoking Status: Former smoker Tobacco Use: Non-smoker Alcohol: None Drugs: None - *Family History Maternal Family History: Family History (Last Updated 08/21/17 @ 14:36 by Pat Gomez) Sister Diabetes Hypertension History Items: Cancer - uterine Paternal Family History: Family History (Last Updated 08/21/17 @ 14:36 by Pat Gomez) Sister Diabetes Hypertension History Items: Cancer Sibling Family History: Family History (Last Updated 08/21/17 @ 14:36 by Pat Gomez) Sister Diabetes Hypertension History Items: Diabetes Review of Systems Constitutional: Reports: Malaise, Weakness, Fatigue. Denies: Chills, Fever, Weight Change HEENT: Denies: Head Aches, Sinus Congestion, Sinus Drainage Cardiovascular: Denies: Chest Pain, Palpitations Respiratory: Denies: Cough, Shortness of breath at rest, Sputum production Gastrointestinal: Reports: Constipation, Diarrhea. Denies: Abdominal Pain, Nausea, Vomiting Genitourinary: Denies: Dysuria Musculoskeletal: Reports: Back Pain, Joint Pain. Denies: Joint Tenderness Skin: Reports: Skin Changes. Denies: Rash, Wounds Neurological: Denies: Numbness, Tingling, Focal weakness Psychiatric: Denies: Anxiety, Depression, Homicidal Ideations, Suicidal Ideations Hematologic/ Lymphatic: Reports: Anemia, Easy Bruising, Easy Bleeding VTE Information - Inpt Only VTE Present on Admission: No VTE Mechan Device Prophylaxis: SCD's VTE Pharm Prophylaxis ordered?: Yes Subjective: Seated upright in the ED bed, fatigued appearing. Objective: Physical Examination: General: awake, alert, oriented x 3 and cooperative, seated upright in the ED bed in no apparent distress, fatigued appearing. Skin: normal color, turgor, no icterus, cyanosis except BL LE stasis blisters, edema as noted. HEENT: AT/NC, EOMI, PERRLA, mildly dry MM, no carotid bruits or JVD noted. Lungs: Diminished BS BL bases, moderate effort, no rales, ronchi or wheezing. Heart: Bradycardic with irregular rhythm; no gallop, rub audible. Abdomen: soft, obese, NTTP, ND, normal BS, no HSM. Extremities: no cyanosis, clubbing, BL LE 2+ ankle to distal re[place] edema. Neurological: patient awake, alert, oriented x 3; cognitive function intact; pupils equally reactive to light and accomodation; cranial nerves II-XII grossly normal, moving all 4 extremities, no focal deficits, strength severely globally decreased secondary to acute presentation. Psychiatric: affect appears flat, fatigued, no acute evidence of depressive or anxiety feelings. - Physical Exam Vital Signs Temp Pulse Resp BP Pulse Ox 97.3 F L 78 16 147/51 H 95 04/12/18 18:46 04/12/18 18:46 04/12/18 18:46 04/12/18 18:46 04/12/18 18:46 Weight: 200 lb Body Mass Index (BMI) 33.3 Finger Stick Blood Glucose 99 Laboratory Tests Past 24 Hrs 04/12/18 04/12/18 04/12/18 19:27 19:27 20:02 WBC 2.3 L RBC 3.92 L Hgb 11.0 L Hct 36.2 L MCV 92.3 MCH 28.1 MCHC 30.4 L RDW 20.5 H RDW Differential 68.4 H Plt Count 131 L MPV 10.1 Immature Gran % (Auto) 0.000 Neut % (Auto) 54.2 Lymph % (Auto) 24.0 [place] % (Auto) 16.3 H Eos % (Auto) 3.4 Baso % (Auto) 2.1 H Absolute Neuts (auto) 1.3 L Absolute Lymphs (auto) 0.56 L Total Counted Not Reportable Differential Comment Diff Path Review May foll Platelet Estimate SLT DEC Polychromasia RARE Hypochromasia 1+ Anisocytosis 1+ Ovalocytes RARE Schistocytes RARE Sodium 131 L Potassium 5.3 H Chloride 93 L Carbon Dioxide 30.0 Anion Gap 8 BUN 34 H Creatinine 2.77 H Estim Creat Clear Calc 15.79 Est GFR (MDRD) Af Amer 21 L Est GFR (MDRD) Non-Af 18 L BUN/Creatinine Ratio 12.3 Glucose 120 H Calcium 8.9 Urine Color Yellow Urine Clarity Clear Urine pH 8.0 Ur Specific [place] 1.010 Urine Protein 100 H Urine Glucose (UA) Normal Urine Ketones Negative Urine Occult Blood 25 H Urine Nitrite Negative Urine Bilirubin Negative Urine Urobilinogen Normal Ur Leukocyte Esterase 25 H Urine RBC 0 SEEN Urine WBC 0-5 SEEN Ur Squamous Epith Cells 0 SEEN Ur Transition Epith Cell 0-5 SEEN Ur Renal Epithelial Cell 0-5 SEEN Urine Bacteria 0 SEEN Urine Mucus 0 SEEN Assessment/Plan All Active Problems (Last Reviewed 08/21/17 @ 14:33 by Pat Gomez) Ascites (Acute) Hypervolemia (Acute) Hypotension (Acute) Fall (Acute) Gait instability (Acute) Pain in right ankle and joints of right foot (Acute) Ileus (Acute) Unstable angina pectoris (Acute) Hyperkalemia (Acute) Chest pressure (Acute) The patient is a 73 y/o F w/ PMHx: Chronic Hypoxic Respiratory Failure, CAD s/p NSTEMI and PCI, Diastolic CHF, Obesity, HTN, HLD, Obesity, AOCD, Diabetes mellitus type II, Chronic Atrial Flutter, ESRD on HD who presents to the [facility] ED on 04/12/18 with history of ongoing severe weakness, generalized fatigue w/ near fall x 2 over the past 48-72 hours, noted upon presentation to dialysis to be above her dry weight by 7 kg, weak and nearly falling from the vehicle while attempting to walk into HD. (1) Debility, Weakness: Unclear specific etiology, extremely weak for the last several days, although noting more prominent weakness since her last admission. Will admit to [facility], maintain on fall precautions, appropriate VS and labs upon presentation, however liver panel not obtained, will obtain hepatic profile in addition, obtain PT, OT, CM consultations, given current presentation home likely unsafe discharge option, likely will need SNF especially given near frequent falls secondary to her weakness. Will hold sedative phenergan scheduled and low dose BID flexeril as likely contributing. (2) Diastolic CHF: Will maintain on home regimen asa, plavix, statin, coreg, ARB regimen with hold parameters, HD per usual regimen, performed on day of ED presentation. BL IOANA wraps to BL LE, elevation. Stasis changes noted, eucerin cream and wound RN to follow additionally. Defer IVFs given recent increased dry weight, monitor weights daily. (2) Chronic Hypoxic Respiratory Failure: Secondary to her underlying CHF, ESRD history, maintain on her home chronic supplementation, HOB, IS. (3) AOCD: Admission Hgb 11, baseline appears 8-10 range, stable, repeat CBC in AM. (4) CAD: s/p NSTEMI and PCI, patient w/ known coronary disease with nonobstructive disease of her left main and LAD, and occluded anomalous left circumflex, and disease of her proximal and distal RCA which was to be evaluated and corrected at [facility] for a 2017. Continue home asa, plavix, statin, Coreg, ARB. (5) Hypertension: Continue home regimen including Coreg, doxazosin, Lasix, isosorbide, losartan regimen with hold parameters, PRN hydralazine. (6) Hyperlipidemia: Continue home statin regimen. (7) Diabetes mellitus type II: Continue home insulin regimen, ADA/renal diet, accu checks w/ ISS, nutrition consultation for education and teaching. (8) Chronic Atrial Flutter: Previously on amiodarone and coreg, transitioned to coreg only secondary to issues with bradycardia, maintain on asa, plavix, not anticoagulated secondary to fall risk. (9) ESRD: On HD MWF, HD day of ED presentation, following w/ Dr. Crawley. (10) Obesity: Weight loss and lifestyle changes encouraged, nutrition consulted for education and teaching. (11) GERD: PPI. (12) DVT Prophylaxis: SCDs, heparin. (13) CODE status: Discussed CODE status at length including difference between FULL code, DNR-CCA and DNR-CC status. Following discussions about the differences in these status, requested Full Code status. Noted that we had discussed status concept prior and she had been encouraged to review these items outpatient. Advanced Care Planning Face to Face Time: 16 minutes. Code Visit OBSV E&M: 10576 Initial observation care L3 Procedures: 04621 Advncd Care Plan 30 Min
--- NOTE | 2018-04-12 21:24 | ED.DCSUM_ITS ---
- ER Visit Summary Date of Service: 04/12/18 Chief Complaint: Weakness History of Present Illness: The patient is a 73 F states she usually uses a rolled walker to ambulate. Since last evening she had generalized weakness and is too weak to even get up out of her chair. She denies pain or shortness of breath. Patient was taken to dialysis today. Staff member did call me and states they were sending her over after they completed her run. She was 7 kg over her normal dry weight. They have did run dialysis longer than normal to try to take off some extra fluid and correct her potassium. Staff member did tell me that she is still at the door when family attempted to get the patient out of the car. States the patient's legs literally would not hold her up and she nearly fell. They got her into a wheelchair and had to use a Kt lift to move her at the dialysis center. Past history significant for coronary disease, [place], CHF, diabetes, hypertension, high cholesterol, A. fib, hypothyroidism, peripheral vascular disease, and chronic renal failure. Physical Examination: Vital signs are unremarkable. Patient sitting upright talking on her cell phone. She is in no acute distress. Head neck examination is unremarkable. Heart is irregular with a 3/6 murmur. Lungs sounds are slightly diminished at the bases. Abdomen is soft and nontender. Abdomen is slightly distended. Active bowel sounds are noted. Neuro exam reveals no focal deficits. She is able to lift her legs up off the bed. Test Results: EKG is A. fib at 67 with no sign of acute ischemia. Portable chest x-ray shows stable cardiomegaly. There is no interval change. CBC was a white count 2.3 with a hemoglobin of 11. Platelet count is 131,000. Chemistry studies reveal a sodium of 131. Her potassium is 5.3 with slight hemolysis. BUN is 34 and creatinine is 2.77. Urinalysis shows no sign of infection. Emergency Department Course and Treatment: Patient was not given IV fluids as she is dialysis dependent. Patient has had no significant arrhythmias noted on vehicle monitor technician. She will be admitted for further evaluation and placement to rehab/ECF. Treatment Plan: [] Disposition: Admit Impression: Generalized weakness with inability to ambulate This note was generated with reeplay.it dictation software. It may contain incorrect words, spelling, and punctuation that were not noted in review of the chart prior to signing ED Disposition - Plan for ED Patient: Disposition: Acute Care Hospital [facility] Chief Complaint: Weakness
[2018-04-12 21:29] VITALS: BP 134/50; PULSE 57; RESP 16; O2SAT 94
[2018-04-12 22:05] VITALS: BMI 32.3
[2018-04-12 22:16] VITALS: BMI 32.4
[2018-04-12 22:21] VITALS: BP 154/76; PULSE 56; RESP 18; TEMP 36.6; O2SAT 99
[2018-04-12 22:44] LABS: AST(SGOT) 36 U/L (15-37); Alanine Aminotransfer ALT/SGPT 18 U/L (13-56); Albumin, Serum 3.2 g/dL (3.2-5.0); Alkaline Phosphatase 289 U/L (45-117); Bilirubin, Direct 0.33 mg/dL (0.00-0.30); Globulin 5.4 g/dL (2.2-4.2); Magnesium 2.1 mg/dL (1.6-2.6); Phosphorus 5.1 mg/dL (2.5-4.9); Protein, Total 8.6 g/dL (6.4-8.2)
[2018-04-12 23:30] LABS: Bedside Glucose 128 mg/dL (70-110)
[2018-04-12] MEDS: Atorvastatin Calcium 80 MG Tablet PO (23:41)
[2018-04-12] MEDS: Gabapentin 100 MG Capsule PO (23:41)
[2018-04-12] MEDS: Isosorbide Mononitrate 30 MG Tablet PO (23:42)
[2018-04-12] MEDS: Carvedilol 12.5 MG Tablet PO (23:42)
[2018-04-12] MEDS: Pramipexole Di-HCl 0.25 MG Tablet PO (23:42)
[2018-04-12] MEDS: Losartan Potassium 50 MG Tablet PO (23:42)
[2018-04-12] MEDS: Doxazosin 4 MG Tablet 8 MG PO (23:42)
[2018-04-12] MEDS: oxyCODONE 5 MG Tablet PO (23:42)
[2018-04-12] MEDS: Heparin Injection (Vial) 5,000 UNIT/ML VIAL 5000 UNIT SC (23:46)
[2018-04-13] VITALS (11 sets, daily range): BP systolic 80–121; BP diastolic 32–56; PULSE 45–78; RESP 16–20; TEMP 36.6–37.2; O2SAT 91–97
--- NOTE | 2018-04-13 03:20 | NURSING ---
PT REFUSING IOANA WRAPS AND SCD'S.
[2018-04-13] MEDS: Acetaminophen 325 MG Tablet 650 MG PO ×3 (04:28→18:24)
[2018-04-13] MEDS: Gabapentin 100 MG Capsule PO ×3 (06:47→22:13)
[2018-04-13] MEDS: oxyCODONE 5 MG Tablet PO ×2 (06:59→22:14)
[2018-04-13 07:10] LABS: Bedside Glucose 104 mg/dL (70-110)
[2018-04-13 07:12] LABS: Absolute Lymphocyte Count 0.77 X10^3/ul (0.83-4.51); Absolute Neutrophil Count 1.3 X10^3/uL (2.0-7.7); Basophil# 0.04 X10^3/uL; Basophil% 1.6 % (0-1); Eosinophil# 0.06 X10^3/uL; Eosinophils% 2.3 % (0-5); Hematocrit 31.5 % (37-47); Hemoglobin 9.5 g/dl (12.0-15.0); Lymphocyte # 0.77 X10^3/ul (4.0); Lymphocyte % 30.1 % (19-41); Mean Corp Hgb Conc 30.2 g/gl (32-36); Mean Corpuscular Hgb 28.4 pg (27.0-32.0); Mean Platelet Vol. 9.6 fl (6.2-12.0); Monocyte% 15.6 % (0-10); Neutrophil # 1.28 X10^3/uL (2.7-7.7); POSITIVE COUNT NO; POSITIVE DIFFERENTIAL NO; Platelet Count 110 K/mm3 (150-450); RBC Distribution Width CV 20.8 % (11.6-14.6); RBC Distribution Width SD 69.5 fl (35.1-43.9); Red Blood Count 3.35 M/mm3 (4.2-5.4); White Blood Count 2.6 K/mm3 (4.4-11.0)
[2018-04-13 07:37] LABS: ALB/GLOB Ratio 0.6 RATIO (0.9-2.4); AST(SGOT) 31 U/L (15-37); Alanine Aminotransfer ALT/SGPT 15 U/L (13-56); Albumin, Serum 2.8 g/dL (3.2-5.0); Alkaline Phosphatase 234 U/L (45-117); Anion Gap 13 (5-15); BUN 43 mg/dL (7-18); BUN/Creat Ratio 12.1 RATIO (10-20); Calcium,Total 8.8 mg/dL (8.5-10.1); Chloride 93 mmol/L (98-107); Creatinine, Serum 3.55 mg/dL (0.55-1.02); EST Glomerular Filtration Rate 13 mL/min (>60); Est Glom Filt Rate - Afr Amer 16 mL/min (>60); Estimated Creatinine Clearance 12.32 ml/min; Globulin 4.4 g/dL (2.2-4.2); Glucose 96 mg/dL (74-106); Protein, Total 7.2 g/dL (6.4-8.2); Sodium Level 134 mmol/L (136-145)
[2018-04-13 07:46] LABS: Differential Indicated SCAN CRITERIA MET; POSITIVE MORPHOLOGY YES
[2018-04-13 07:47] LABS: Anisocytosis 1+; Hypochromasia 2+; Platelet Estimate SLT DEC (ADEQ); Polychromasia RARE
[2018-04-13] MEDS: Calcium Acetate 667 MG Capsule 2001 MG PO ×2 (08:25→12:09)
[2018-04-13] MEDS: SEVELAMER CARBONATE 800 MG TABLET 1600 MG PO ×2 (08:26→12:12)
[2018-04-13] MEDS: Aspirin E.C. 81 MG Tablet PO (08:27)
--- NOTE | 2018-04-13 09:21 | PCM.PN.HOSP ---
Subjective: Patient seen and examined. She was admitted overnight with a complaint of severe generalized weakness and mechanical falls. She still complains of feeling weak and tired this morning. Complains of pain in her right upper extremity. She denies any fever or chills, any cough or chest pain, shortness of breath, abdominal pain, any diarrhea or vomiting. She does complain of abdominal distention which she says is gotten worse over the last month. Labs and vitals reviewed. Vitals/I&O's: Vital Signs Temp Pulse Resp BP Pulse Ox 98.6 F 60 16 116/44 L 91 04/13/18 04:21 04/13/18 04:21 04/13/18 04:21 04/13/18 04:21 04/13/18 06:50 Oxygen Delivery Method Room Air Weight: 199 lb 1.239 oz Body Mass Index (BMI) 32.3 Finger Stick Blood Glucose 99 Intake and Output for Last 24 Hours 04/11/18 04/12/18 04/13/18 23:59 23:59 23:59 Intake Total 400 / 400 Output Total 50 / 50 Balance 350 / 350 General: Alert, Oriented x3, Cooperative, No apparent distress HEENT: Atraumatic, PERRLA, EOMI, Normocephalic, - - sclera has tinge of jaundice Oral: Moist Mucosa Neck: Supple, No JVD, Negative Carotid Bruits Lungs: Clear to auscultation, Normal air movement, No rhonchi, No wheeze, No rales Cardiovascular: Regular rate, Regular Rhythm, Normal S1, Normal S2, No murmurs Abdomen: - - abdomen distended, positive fluid thrill, ?palpable left lobe of liver. Spleen not palpable. No tenderness on examination Extremities: No clubbing, No cyanosis, No edema, Capillary Refill Less than 3 Seconds Skin: No rashes, No breakdown Musculoskeletal: - - tenderness over right shoulder and upper arm. Lymphatic: No Cervical, Supraclavicular, or Inguinal Adenopathy Neurological: Cranial nerves II-XII grossly intact, Neuro grossly intact, Motor Exam 5/5 strength throughout Psych/Mental Status: Normal Affect, Appropriate, Alert and oriented to time, place, person, mood and affect Laboratory Results 04/12/18 19:27: WBC 2.3 L, RBC 3.92 L, Hgb 11.0 L, Hct 36.2 L, MCV 92.3, MCH 28.1, MCHC 30.4 L, RDW 20.5 H, RDW Differential 68.4 H, Plt Count 131 L, MPV 10.1, Immature Gran % (Auto) 0.000, Neut % (Auto) 54.2, Lymph % (Auto) 24.0, [place] % (Auto) 16.3 H, Eos % (Auto) 3.4, Baso % (Auto) 2.1 H, Absolute Neuts (auto) 1.3 L, Absolute Lymphs (auto) 0.56 L, Total Counted Not Reportable, Differential Comment , Diff Path Review September, Platelet Estimate SLT DEC, Polychromasia RARE, Hypochromasia 1+, Anisocytosis 1+, Ovalocytes RARE, Schistocytes RARE 04/12/18 19:27: Sodium 131 L, Potassium 5.3 H, Chloride 93 L, Carbon Dioxide 30.0, Anion Gap 8, BUN 34 H, Creatinine 2.77 H, Estim Creat Clear Calc 15.79, Est GFR (MDRD) Af Amer 21 L, Est GFR (MDRD) Non-Af 18 L, BUN/Creatinine Ratio 12.3, Glucose 120 H, Calcium 8.9 04/12/18 19:27: Phosphorus 5.1 H, Magnesium 2.1, Total Bilirubin 0.80, Direct Bilirubin 0.33 H, AST 36, ALT 18, Alkaline Phosphatase 289 H, Total Protein 8.6 H, Albumin 3.2, Globulin 5.4 H 04/12/18 20:02: Urine Color Yellow, Urine Clarity Clear, Urine pH 8.0, Ur Specific [place] 1.010, Urine Protein 100 H, Urine Glucose (UA) Normal, Urine Ketones Negative, Urine Occult Blood 25 H, Urine Nitrite Negative, Urine Bilirubin Negative, Urine Urobilinogen Normal, Ur Leukocyte Esterase 25 H, Urine RBC 0 SEEN, Urine WBC 0-5 SEEN, Ur Squamous Epith Cells 0 SEEN, Ur Transition Epith Cell 0-5 SEEN, Ur Renal Epithelial Cell 0-5 SEEN, Urine Bacteria 0 SEEN, Urine Mucus 0 SEEN 04/12/18 23:24: POC Glucose 128 H 04/13/18 06:32: WBC 2.6 L, RBC 3.35 L, Hgb 9.5 L, Hct 31.5 L, MCV 94.0, MCH 28.4, MCHC 30.2 L, RDW 20.8 H, RDW Differential 69.5 H, Plt Count 110 L, MPV 9.6, Immature Gran % (Auto) 0.400, Neut % (Auto) 50.0, Lymph % (Auto) 30.1, [place] % (Auto) 15.6 H, Eos % (Auto) 2.3, Baso % (Auto) 1.6 H, Absolute Neuts (auto) 1.3 L, Absolute Lymphs (auto) 0.77 L, Total Counted Not Reportable, Platelet Estimate SLT DEC, Polychromasia RARE, Hypochromasia 2+, Anisocytosis 1+ 04/13/18 06:32: Sodium 134 L, Potassium 6.0 H*, Chloride 93 L, Carbon Dioxide 28.0, Anion Gap 13, BUN 43 H, Creatinine 3.55 H, Estim Creat Clear Calc 12.32, Est GFR (MDRD) Af Amer 16 L, Est GFR (MDRD) Non-Af 13 L, BUN/Creatinine Ratio 12.1, Glucose 96, Calcium 8.8, Total Bilirubin 0.60, AST 31, ALT 15, Alkaline Phosphatase 234 H, Total Protein 7.2, Albumin 2.8 L, Globulin 4.4 H, Albumin/Globulin Ratio 0.6 L 04/13/18 06:49: POC Glucose 104 Diagnostic Data Chest X-Ray 04/12/18 19:30 IMPRESSION: Decrease inspiratory effort with stable cardiomegaly. There is no other interval change. Electronically Signed: Guerrero Reese DO at 20:36 EST Tel [phone], Service support , Current Medications Acetaminophen (Tylenol) 650 mg PO Q6H PRN PRN PRN Reason: Non-cardiac pain (mod-severe) Last Admin: 04/13/18 04:28 Dose: 650 mg Al Hydroxide/Mg Hydroxide (Mylanta Ii) 30 ml PO Q6H PRN PRN PRN Reason: Gastric burning Aspirin (Ecotrin) 81 mg PO DAILY@0800 [facility] Last Admin: 04/13/18 08:27 Dose: 81 mg Atorvastatin Calcium (Lipitor) 80 mg PO QHS [facility] Last Admin: 04/12/18 23:41 Dose: 80 mg Calcium Acetate (Phoslo Gel Cap) 2,001 mg PO TIDCM [facility] Last Admin: 04/13/18 08:25 Dose: 2,001 mg Carvedilol (Coreg) 12.5 mg PO BID [facility] Last Admin: 04/12/18 23:42 Dose: 12.5 mg Cholecalciferol (Vitamin D) 5,000 unit PO MoWeFr@1000 [facility] Clopidogrel Bisulfate (Plavix) 75 mg PO DAILY [facility] Docusate Calcium (Surfak) 240 mg PO BID [facility] Last Admin: 04/12/18 23:41 Dose: 240 mg Doxazosin Mesylate (Cardura) 8 mg PO QHS [facility] Last Admin: 04/12/18 23:42 Dose: 8 mg Emollient Ointment (Eucerin Intensive Repair) 1 applic TOPICAL TID [facility]; Protocol Last Admin: 04/13/18 06:47 Dose: 1 applic Gabapentin (Neurontin) 100 mg PO TID [facility] Last Admin: 04/13/18 06:47 Dose: 100 mg Heparin Sodium (Porcine) (Heparin Na) 5,000 unit SC Q12 [facility] Last Admin: 04/12/18 23:46 Dose: 5,000 unit Hydralazine HCl (Apresoline Iv) 10 mg IV Q4H PRN PRN PRN Reason: SBP > 160 Insulin Glargine (Lantus (Bkc)) 10 units SC QHS [facility] Last Admin: 04/13/18 00:36 Dose: Not Given Insulin Human Lispro (Humalog Kwikpen (Bkc)) 0 unit SC ACHS [facility]; Protocol Last Admin: 04/13/18 06:50 Dose: Not Given Isosorbide Mononitrate (Imdur) 30 mg PO BID [facility] Last Admin: 04/12/18 23:42 Dose: 30 mg Lactulose (Chronulac, Cephulac) 26.666 gm PO DAILY PRN PRN PRN Reason: Constipation Losartan Potassium (Cozaar) 50 mg PO BID [facility] Last Admin: 04/12/18 23:42 Dose: 50 mg Magnesium Hydroxide (Milk Of Magnesia) 30 ml PO DAILY PRN PRN PRN Reason: Constipation Multivit/Ca Carb/B Cmplx/FA/Prenat (Nephrocaps, Renaphro) 1 capsule PO DAILY [facility] Nutritional Formula (Lactose Free) (Glucerna Shake) 120 ml PO 4X/DAY [facility] Ondansetron HCl (Zofran) 4 mg IV Q8H PRN PRN PRN Reason: NAUSEA Oxycodone HCl (Oxyir) 5 mg PO Q6H PRN PRN PRN Reason: SEVERE PAIN (6-02/27) Last Admin: 04/13/18 06:59 Dose: 5 mg Pantoprazole Sodium (Protonix) 40 mg PO DAILY [facility] Pramipexole Dihydrochloride (Mirapex) 0.25 mg PO QHS [facility] Last Admin: 04/12/18 23:42 Dose: 0.25 mg Promethazine HCl (Phenergan) 12.5 mg IV Q6H PRN PRN PRN Reason: NAUSEA/VOMITING Sevelamer Carbonate (Renvela) 1,600 mg PO TIDCM [facility] Last Admin: 04/13/18 08:26 Dose: 1,600 mg Sodium Chloride () 5 - 30 ml IV UD PRN PRN Reason: SALINE FLUSH Sodium Polystyrene Sulfonate (Kayexalate) 15 gm PO X1 ONE Stop: 04/13/18 09:18 Medical Necessity - Tobacco Use Smoking Status: Former smoker Tobacco Use: Non-smoker Assessment/Plan All Active Problems (Last Reviewed 08/21/17 @ 14:33 by Pat Gomez) Ascites (Acute) Hypervolemia (Acute) Hypotension (Acute) Fall (Acute) Gait instability (Acute) Pain in right ankle and joints of right foot (Acute) Ileus (Acute) Unstable angina pectoris (Acute) Hyperkalemia (Acute) Chest pressure (Acute) 1. Mechanical falls and debility exact etiology is unclear. has been getting weaker over the past few days, with increased lethargy and mechanical falls phenergan and flexeril on hold. fall precautions. case management consult as she will need placement 2. HF reduced EF 2D echo*02/27/18): EF of 65% with severely dilated right ventricle and moderate right global ventricular systolic dysfunction. Left atrium severely enlarged right atrium severely enlarged with aneurysmal atrial septum. Normal left ventricular wall thickness. 3+ tricuspid valve insufficiency. Mild aortic stenosis. RVSP of 35 mmHg which may be underestimated on aspirin, plavix, statin, coreg and ARB on lasix 3. Ascites: has abdominal distension with positive fluid thrill and shifting dullness. Review of EMR shows she had an abdominal MRI in 12/05 which showed a liver hemangioma. has been admitted with ascites before and was due to have a paracentesis which was aborted because she hadnt been off her aspirin and plavix for 7 days. says abdomen ahs been getting more distended over the last month get abdominal USG; may benefit from paracentesis if HD doesnt remove adequate fluid 4. Hyponatremia: na is 134 today; was 131 on admission. is due to fluid overload most likely. WIll monitor for resolution with dialysis. 5. Chronic hypoxic respiratory failure due to CHF and ESRD: on home oxygen prn and breathing treatments 6. RUE pain: complains of pain in RUE and shoulder. Denies any trauma to RUE. WIll get xray of right shoulder and right humerus 7. Hyperkalemia: K is 6; was 5.3 on admission. WIll give one dose of PO kayexalate and monitor 8. ESRD on HD; HD MWF. consult nephrology for dialysis 9. Hypertension: on coreg, doxazosin, imdur, losartan and lasix. hydralazine prn 10. Hyperlipidemia: On statin. 11. GERD: PPI 12. Chronic atrial flutter: Currently on Coreg only. Also on aspirin and Plavix. No anti-correlation on account of fall risk. 13. CAD s/ps tent; on aspirin, plavix and statin, coreg and losartan. 14. Diabetes mellitus: continue on insulin lantus 10IU qhs; ISS. Accuchecks ACHS DVT prophylaxis: SCDs. Heparin CODE STATUS: Full code Code Visit OBSV E&M: 24422 Subsequent observation care L3
--- NOTE | 2018-04-13 09:27 | PN_ITS ---
Subjective: Patient seen and examined. She was admitted overnight with a complaint of severe generalized weakness and mechanical falls. She still complains of feeling weak and tired this morning. Complains of pain in her right upper extremity. She denies any fever or chills, any cough or chest pain, shortness of breath, abdominal pain, any diarrhea or vomiting. She does complain of abdominal distention which she says is gotten worse over the last month. Labs and vitals reviewed. Vitals/I&O's: Vital Signs Temp Pulse Resp BP Pulse Ox 98.6 F 60 16 116/44 L 91 04/13/18 04:21 04/13/18 04:21 04/13/18 04:21 04/13/18 04:21 04/13/18 06:50 Oxygen Delivery Method Room Air Weight: 199 lb 1.239 oz Body Mass Index (BMI) 32.3 Finger Stick Blood Glucose 99 Intake and Output for Last 24 Hours 04/11/18 04/12/18 04/13/18 23:59 23:59 23:59 Intake Total 400 / 400 Output Total 50 / 50 Balance 350 / 350 General: Alert, Oriented x3, Cooperative, No apparent distress HEENT: Atraumatic, PERRLA, EOMI, Normocephalic, - - sclera has tinge of jaundice Oral: Moist Mucosa Neck: Supple, No JVD, Negative Carotid Bruits Lungs: Clear to auscultation, Normal air movement, No rhonchi, No wheeze, No rales Cardiovascular: Regular rate, Regular Rhythm, Normal S1, Normal S2, No murmurs Abdomen: - - abdomen distended, positive fluid thrill, ?palpable left lobe of liver. Spleen not palpable. No tenderness on examination Extremities: No clubbing, No cyanosis, No edema, Capillary Refill Less than 3 Seconds Skin: No rashes, No breakdown Musculoskeletal: - - tenderness over right shoulder and upper arm. Lymphatic: No Cervical, Supraclavicular, or Inguinal Adenopathy Neurological: Cranial nerves II-XII grossly intact, Neuro grossly intact, Motor Exam 5/5 strength throughout Psych/Mental Status: Normal Affect, Appropriate, Alert and oriented to time, place, person, mood and affect Laboratory Results 04/12/18 19:27: WBC 2.3 L, RBC 3.92 L, Hgb 11.0 L, Hct 36.2 L, MCV 92.3, MCH 28.1, MCHC 30.4 L, RDW 20.5 H, RDW Differential 68.4 H, Plt Count 131 L, MPV 10.1, Immature Gran % (Auto) 0.000, Neut % (Auto) 54.2, Lymph % (Auto) 24.0, [place] % (Auto) 16.3 H, Eos % (Auto) 3.4, Baso % (Auto) 2.1 H, Absolute Neuts (auto) 1.3 L, Absolute Lymphs (auto) 0.56 L, Total Counted Not Reportable, Differential Comment , Diff Path Review September, Platelet Estimate SLT DEC, Polychromasia RARE, Hypochromasia 1+, Anisocytosis 1+, Ovalocytes RARE, Schistocytes RARE 04/12/18 19:27: Sodium 131 L, Potassium 5.3 H, Chloride 93 L, Carbon Dioxide 30.0, Anion Gap 8, BUN 34 H, Creatinine 2.77 H, Estim Creat Clear Calc 15.79, Est GFR (MDRD) Af Amer 21 L, Est GFR (MDRD) Non-Af 18 L, BUN/Creatinine Ratio 12.3, Glucose 120 H, Calcium 8.9 04/12/18 19:27: Phosphorus 5.1 H, Magnesium 2.1, Total Bilirubin 0.80, Direct Bilirubin 0.33 H, AST 36, ALT 18, Alkaline Phosphatase 289 H, Total Protein 8.6 H, Albumin 3.2, Globulin 5.4 H 04/12/18 20:02: Urine Color Yellow, Urine Clarity Clear, Urine pH 8.0, Ur Specific [place] 1.010, Urine Protein 100 H, Urine Glucose (UA) Normal, Urine Ketones Negative, Urine Occult Blood 25 H, Urine Nitrite Negative, Urine Bilirubin Negative, Urine Urobilinogen Normal, Ur Leukocyte Esterase 25 H, Urine RBC 0 SEEN, Urine WBC 0-5 SEEN, Ur Squamous Epith Cells 0 SEEN, Ur Transition Epith Cell 0-5 SEEN, Ur Renal Epithelial Cell 0-5 SEEN, Urine Bacteria 0 SEEN, Urine Mucus 0 SEEN 04/12/18 23:24: POC Glucose 128 H 04/13/18 06:32: WBC 2.6 L, RBC 3.35 L, Hgb 9.5 L, Hct 31.5 L, MCV 94.0, MCH 28.4, MCHC 30.2 L, RDW 20.8 H, RDW Differential 69.5 H, Plt Count 110 L, MPV 9.6, Immature Gran % (Auto) 0.400, Neut % (Auto) 50.0, Lymph % (Auto) 30.1, [place] % (Auto) 15.6 H, Eos % (Auto) 2.3, Baso % (Auto) 1.6 H, Absolute Neuts (auto) 1.3 L, Absolute Lymphs (auto) 0.77 L, Total Counted Not Reportable, Platelet Estimate SLT DEC, Polychromasia RARE, Hypochromasia 2+, Anisocytosis 1+ 04/13/18 06:32: Sodium 134 L, Potassium 6.0 H*, Chloride 93 L, Carbon Dioxide 28.0, Anion Gap 13, BUN 43 H, Creatinine 3.55 H, Estim Creat Clear Calc 12.32, Est GFR (MDRD) Af Amer 16 L, Est GFR (MDRD) Non-Af 13 L, BUN/Creatinine Ratio 12.1, Glucose 96, Calcium 8.8, Total Bilirubin 0.60, AST 31, ALT 15, Alkaline Phosphatase 234 H, Total Protein 7.2, Albumin 2.8 L, Globulin 4.4 H, Albumin/Globulin Ratio 0.6 L 04/13/18 06:49: POC Glucose 104 Diagnostic Data Chest X-Ray 04/12/18 19:30 IMPRESSION: Decrease inspiratory effort with stable cardiomegaly. There is no other interval change. Electronically Signed: Guerrero Reese DO at 20:36 EST Tel [phone], Service support , Current Medications Acetaminophen (Tylenol) 650 mg PO Q6H PRN PRN PRN Reason: Non-cardiac pain (mod-severe) Last Admin: 04/13/18 04:28 Dose: 650 mg Al Hydroxide/Mg Hydroxide (Mylanta Ii) 30 ml PO Q6H PRN PRN PRN Reason: Gastric burning Aspirin (Ecotrin) 81 mg PO DAILY@0800 [facility] Last Admin: 04/13/18 08:27 Dose: 81 mg Atorvastatin Calcium (Lipitor) 80 mg PO QHS [facility] Last Admin: 04/12/18 23:41 Dose: 80 mg Calcium Acetate (Phoslo Gel Cap) 2,001 mg PO TIDCM [facility] Last Admin: 04/13/18 08:25 Dose: 2,001 mg Carvedilol (Coreg) 12.5 mg PO BID [facility] Last Admin: 04/12/18 23:42 Dose: 12.5 mg Cholecalciferol (Vitamin D) 5,000 unit PO MoWeFr@1000 [facility] Clopidogrel Bisulfate (Plavix) 75 mg PO DAILY [facility] Docusate Calcium (Surfak) 240 mg PO BID [facility] Last Admin: 04/12/18 23:41 Dose: 240 mg Doxazosin Mesylate (Cardura) 8 mg PO QHS [facility] Last Admin: 04/12/18 23:42 Dose: 8 mg Emollient Ointment (Eucerin Intensive Repair) 1 applic TOPICAL TID [facility]; Protocol Last Admin: 04/13/18 06:47 Dose: 1 applic Gabapentin (Neurontin) 100 mg PO TID [facility] Last Admin: 04/13/18 06:47 Dose: 100 mg Heparin Sodium (Porcine) (Heparin Na) 5,000 unit SC Q12 [facility] Last Admin: 04/12/18 23:46 Dose: 5,000 unit Hydralazine HCl (Apresoline Iv) 10 mg IV Q4H PRN PRN PRN Reason: SBP > 160 Insulin Glargine (Lantus (Bkc)) 10 units SC QHS [facility] Last Admin: 04/13/18 00:36 Dose: Not Given Insulin Human Lispro (Humalog Kwikpen (Bkc)) 0 unit SC ACHS [facility]; Protocol Last Admin: 04/13/18 06:50 Dose: Not Given Isosorbide Mononitrate (Imdur) 30 mg PO BID [facility] Last Admin: 04/12/18 23:42 Dose: 30 mg Lactulose (Chronulac, Cephulac) 26.666 gm PO DAILY PRN PRN PRN Reason: Constipation Losartan Potassium (Cozaar) 50 mg PO BID [facility] Last Admin: 04/12/18 23:42 Dose: 50 mg Magnesium Hydroxide (Milk Of Magnesia) 30 ml PO DAILY PRN PRN PRN Reason: Constipation Multivit/Ca Carb/B Cmplx/FA/Prenat (Nephrocaps, Renaphro) 1 capsule PO DAILY [facility] Nutritional Formula (Lactose Free) (Glucerna Shake) 120 ml PO 4X/DAY [facility] Ondansetron HCl (Zofran) 4 mg IV Q8H PRN PRN PRN Reason: NAUSEA Oxycodone HCl (Oxyir) 5 mg PO Q6H PRN PRN PRN Reason: SEVERE PAIN (6-02/27) Last Admin: 04/13/18 06:59 Dose: 5 mg Pantoprazole Sodium (Protonix) 40 mg PO DAILY [facility] Pramipexole Dihydrochloride (Mirapex) 0.25 mg PO QHS [facility] Last Admin: 04/12/18 23:42 Dose: 0.25 mg Promethazine HCl (Phenergan) 12.5 mg IV Q6H PRN PRN PRN Reason: NAUSEA/VOMITING Sevelamer Carbonate (Renvela) 1,600 mg PO TIDCM [facility] Last Admin: 04/13/18 08:26 Dose: 1,600 mg Sodium Chloride () 5 - 30 ml IV UD PRN PRN Reason: SALINE FLUSH Sodium Polystyrene Sulfonate (Kayexalate) 15 gm PO X1 ONE Stop: 04/13/18 09:18 Medical Necessity - Tobacco Use Smoking Status: Former smoker Tobacco Use: Non-smoker Assessment/Plan All Active Problems (Last Reviewed 08/21/17 @ 14:33 by Pat Gomez) Ascites (Acute) Hypervolemia (Acute) Hypotension (Acute) Fall (Acute) Gait instability (Acute) Pain in right ankle and joints of right foot (Acute) Ileus (Acute) Unstable angina pectoris (Acute) Hyperkalemia (Acute) Chest pressure (Acute) 1. Mechanical falls and debility * exact etiology is unclear. * has been getting weaker over the past few days, with increased lethargy and mechanical falls * phenergan and flexeril on hold. * fall precautions. * case management consult as she will need placement * 2. HF reduced EF * 2D echo*02/27/18): EF of 65% with severely dilated right ventricle and moderate right global ventricular systolic dysfunction. Left atrium severely enlarged right atrium severely enlarged with aneurysmal atrial septum. Normal left ventricular wall thickness. 3+ tricuspid valve insufficiency. Mild aortic stenosis. RVSP of 35 mmHg which may be underestimated * * on aspirin, plavix, statin, coreg and ARB * on lasix * 3. Ascites: * has abdominal distension with positive fluid thrill and shifting dullness. Review of EMR shows she had an abdominal MRI in 12/05 which showed a liver hemangioma. has been admitted with ascites before and was due to have a paracentesis which was aborted because she hadnt been off her aspirin and plavix for 7 days. * says abdomen ahs been getting more distended over the last month * get abdominal USG; may benefit from paracentesis if HD doesnt remove adequate fluid * 4. Hyponatremia: na is 134 today; was 131 on admission. is due to fluid overload most likely. WIll monitor for resolution with dialysis. 5. Chronic hypoxic respiratory failure due to CHF and ESRD: on home oxygen prn and breathing treatments 6. RUE pain: complains of pain in RUE and shoulder. Denies any trauma to RUE. WIll get xray of right shoulder and right humerus 7. Hyperkalemia: K is 6; was 5.3 on admission. WIll give one dose of PO kayexalate and monitor 8. ESRD on HD; HD MWF. consult nephrology for dialysis 9. Hypertension: on coreg, doxazosin, imdur, losartan and lasix. hydralazine prn 10. Hyperlipidemia: On statin. 11. GERD: PPI 12. Chronic atrial flutter: Currently on Coreg only. Also on aspirin and Plavix. No anti-correlation on account of fall risk. 13. CAD s/ps tent; on aspirin, plavix and statin, coreg and losartan. 14. Diabetes mellitus: continue on insulin lantus 10IU qhs; ISS. Accuchecks ACHS DVT prophylaxis: SCDs. Heparin CODE STATUS: Full code * Code Visit OBSV E&M: 84492 Subsequent observation care L3
[2018-04-13] MEDS: 0.9% NaCl Peripheral Flush Adult/Peds IV (10:08)
[2018-04-13] MEDS: Ondansetron 4 MG/2 ML Vial IV (10:08)
[2018-04-13] MEDS: Glucerna Shake 120 ML LIQUID PO ×2 (11:15→12:12)
[2018-04-13] MEDS: Folic Acid/Vitamin B Comp W-C 1 Capsule 1 CAP PO (11:18)
[2018-04-13] MEDS: Pantoprazole Sodium 40 MG Tablet PO (11:19)
[2018-04-13] MEDS: Clopidogrel Bisulfate 75 MG Tablet PO (11:19)
--- NOTE | 2018-04-13 11:19 | CM.UR ---
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 Met face to face with patient, introduced myself and my role. Earlier this year the she broke her ankle and had a stay at [facility] for rehab. Prior to that she was fully independent including driving herself to dialysis. States she no longer drives at all. Patient able to answer some questions however she was sleepy, almost lethargic. She kept falling asleep during assessment. She voiced desire to return home. Case management will continue to follow for discharge planning. Mindi Song RN, [facility].
[2018-04-13] MEDS: Heparin Injection (Vial) 5,000 UNIT/ML VIAL 5000 UNIT SC ×2 (11:26→22:14)
[2018-04-13 12:35] LABS: Bedside Glucose 132 mg/dL (70-110)
[2018-04-13] MEDS: Sodium Polystyrene Sulfonate 15 GM/60 ML UDC PO (12:54)
[2018-04-13 14:16] LABS: Potassium 6.4 mmol/L (3.5-5.1)
--- NOTE | 2018-04-13 14:43 | RAD_ITS ---
STUDY: X-RAY - RIGHT HUMERUS REASON FOR EXAM: Female, 73 years old. Pain. TECHNIQUE: 2 view(s) of the humerus. COMPARISON: None. FINDINGS: Normal visualized humerus. There is no demonstrated fracture or osseous destructive process. There is no demonstrated soft tissue abnormality. RAD/Humerus min 2 Views IMPRESSION: Normal x-ray examination of the right humerus. Electronically Signed: Cornelius Hanson MD at 16:07 EST , Service support ,
--- NOTE | 2018-04-13 14:43 | RAD_ITS ---
STUDY: X-RAY - RIGHT SHOULDER REASON FOR EXAM: Female, 73 years old. Pain. TECHNIQUE: 2 view(s) of the shoulder. COMPARISON: None. FINDINGS: There is mild cephalad migration of the humeral head. There is degenerative arthrosis of the acromioclavicular joint without inferior osseous spur formation. Normal acromion. Normal humeral head and visualized proximal humerus. The soft tissue structures are unremarkable. Normal visualized pulmonary apex. RAD/Shoulder min 2 Views IMPRESSION: Degenerative arthrosis of the right shoulder. Electronically Signed: Blaine Davidson MD at 15:53 EST Tel , Service support ,
--- NOTE | 2018-04-13 14:43 | RAD_ITS ---
STUDY: X-RAY - LEFT HAND REASON FOR EXAM: Female, 73 years old. Pain. TECHNIQUE: 3 view(s) of the hand. COMPARISON: None. FINDINGS: Normal radiocarpal articulation. Normal distal radioulnar joint. Normal visualized carpal bones. Normal carpal articulations Degenerative narrowing and sclerosis of the carpometacarpal articulation of the thumb. Normal second through fifth carpometacarpal joints. Normal metacarpi. Normal metacarpophalangeal joint of the thumb. Normal interphalangeal joint of the thumb. Normal proximal and distal phalanges of the thumb. Normal metacarpophalangeal joints of the second through fifth fingers. Normal proximal and distal interphalangeal joints of the second through fifth fingers. Normal phalanges of the second through fifth fingers. The soft tissue structures are unremarkable. RAD/Hand Min 3 Views IMPRESSION: 1. Degenerative osteoarthrosis of the carpometacarpal articulation of the right thumb. 2. No acute osseous abnormality of the right hand. Electronically Signed: Cornelius Hanson MD at 16:08 EST , Service support ,
[2018-04-13 17:05] LABS: Bedside Glucose 157 mg/dL (70-110)
[2018-04-13 20:50] LABS: Bedside Glucose 124 mg/dL (70-110)
--- NOTE | 2018-04-13 21:02 | DIALYSIS ---
Hemodialysis x 3 hours, -1000ml off. stable t/o. tolerated well. Hemostasis obtained/dressing applied. verbal report to Silvia JESUS
[2018-04-13] MEDS: Pramipexole Di-HCl 0.25 MG Tablet PO (22:13)
[2018-04-13] MEDS: Carvedilol 12.5 MG Tablet PO (22:13)
[2018-04-13] MEDS: Isosorbide Mononitrate 30 MG Tablet PO (22:13)
[2018-04-13] MEDS: Atorvastatin Calcium 80 MG Tablet PO (22:14)
[2018-04-13] MEDS: Losartan Potassium 50 MG Tablet PO (22:14)
[2018-04-13 23:06] LABS: Bedside Glucose 141 mg/dL (70-110)
[2018-04-14] VITALS (8 sets, daily range): BP systolic 108–142; BP diastolic 40–61; PULSE 67–76; RESP 14–18; TEMP 36.4–36.6; O2SAT 93–96
[2018-04-14 05:52] LABS: Albumin, Serum 2.7 g/dL (3.2-5.0); BUN 26 mg/dL (7-18); BUN/Creat Ratio 8.7 RATIO (10-20); Calcium,Total 8.4 mg/dL (8.5-10.1); Chloride 96 mmol/L (98-107); Creatinine, Serum 2.98 mg/dL (0.55-1.02); EST Glomerular Filtration Rate 16 mL/min (>60); Est Glom Filt Rate - Afr Amer 20 mL/min (>60); Estimated Creatinine Clearance 14.68 ml/min; Glucose 144 mg/dL (74-106); Phosphorus 5.1 mg/dL (2.5-4.9); Potassium 4.6 mmol/L (3.5-5.1); Sodium Level 136 mmol/L (136-145)
[2018-04-14 05:55] LABS: Absolute Neutrophil Count 1.2 X10^3/uL (2.0-7.7); Basophil# 0.03 X10^3/uL; Basophil% 1.3 % (0-1); Eosinophil# 0.09 X10^3/uL; Eosinophils% 3.9 % (0-5); Hematocrit 32.1 % (37-47); Hemoglobin 9.4 g/dl (12.0-15.0); Lymphocyte % 30.4 % (19-41); Mean Corp Hgb Conc 29.3 g/gl (32-36); Mean Corpuscular Hgb 27.6 pg (27.0-32.0); Mean Corpuscular Volume 94.4 fL (81-99); Mean Platelet Vol. 9.1 fl (6.2-12.0); Monocyte# 0.32 X10^3/uL; Monocyte% 13.9 % (0-10); Neutrophil # 1.16 X10^3/uL (2.7-7.7); Neutrophil % 50.5 % (47-70); POSITIVE COUNT NO; POSITIVE DIFFERENTIAL NO; Platelet Count 101 K/mm3 (150-450); RBC Distribution Width CV 20.6 % (11.6-14.6); RBC Distribution Width SD 70.2 fl (35.1-43.9); White Blood Count 2.3 K/mm3 (4.4-11.0)
[2018-04-14 05:56] LABS: Differential Indicated SCAN CRITERIA MET; POSITIVE MORPHOLOGY YES
[2018-04-14 06:39] LABS: Anisocytosis 1+; Differential Comment SCAN; Polychromasia 1+
[2018-04-14 06:40] LABS: Hypochromasia 1+; Microcytosis 1+
[2018-04-14] MEDS: oxyCODONE 5 MG Tablet PO ×3 (06:48→20:26)
[2018-04-14] MEDS: Gabapentin 100 MG Capsule PO ×3 (06:48→22:09)
[2018-04-14 07:21] LABS: Bedside Glucose 137 mg/dL (70-110)
--- NOTE | 2018-04-14 08:08 | CT_ITS ---
STUDY: CT ABDOMEN AND PELVIS WITHOUT CONTRAST REASON FOR EXAM: Female, 73 years old. Ascites. Abdominal discomfort. Dialysis yesterday. Weakness. Trouble with ambulation. RADIATION DOSAGE (If Supplied By Facility): CTDIvol = ( 17.30 ) mGy, DLP = ( 907.41 ) mGycm TECHNIQUE: Transaxial images were obtained from the dome of the diaphragm to the symphysis pubis without oral contrast, and without intravenous contrast. Sagittal and coronal images were reconstructed. Individualized dose optimization techniques were used for this CT. COMPARISON: 12/26/2017. FINDINGS: Subsegmental atelectases in the bibasilar region. Small left posterior pleural fluid. Cardiomegaly. Normal liver but there is large volume ascites around the liver surface. No visible gallbladder which may be post surgically absent. Normal spleen but there is ascites around the spleen. Normal pancreas. Normal bilateral adrenal glands. Atrophy of the right kidney. Atrophy of the left kidney. Small hiatal hernia. Normal small intestine. Normal colon. Nonvisualization of the appendix. Dense atherosclerotic calcifications of the abdominal aorta and all its branches. Normal inferior vena cava. Normal retroperitoneum. Nearly empty urinary bladder. Extensive edema of the subcutaneous fat around the abdomen and pelvis. No acute osseous abnormality. CT/Abdomen/Pelvis without Cont IMPRESSION: 1. Ascites and anasarca. 2. Bilateral renal atrophy from known chronic renal failure. 3. Small hiatal hernia. 4. Subsegmental atelectases in the bibasilar region. 5. Small left posterior pleural fluid. 6. Cardiomegaly. 7. No suspicious mass or acute abnormality in the abdomen and pelvis. 8. Increased ascites and persistent anasarca when compared to 12/26/2017. Electronically Signed: Cornelius Hanson MD at 16:25 EST , Service support ,
[2018-04-14] MEDS: Carvedilol 12.5 MG Tablet PO ×2 (09:41→22:07)
[2018-04-14] MEDS: Heparin Injection (Vial) 5,000 UNIT/ML VIAL 5000 UNIT SC (09:42)
[2018-04-14] MEDS: Isosorbide Mononitrate 30 MG Tablet PO ×2 (09:42→22:08)
[2018-04-14] MEDS: Losartan Potassium 50 MG Tablet PO ×2 (09:43→22:06)
[2018-04-14] MEDS: Folic Acid/Vitamin B Comp W-C 1 Capsule 1 CAP PO (09:43)
[2018-04-14] MEDS: Pantoprazole Sodium 40 MG Tablet PO (09:44)
[2018-04-14] MEDS: Calcium Acetate 667 MG Capsule 2001 MG PO ×3 (09:45→16:37)
[2018-04-14] MEDS: Acetaminophen 325 MG Tablet 650 MG PO (09:48)
--- NOTE | 2018-04-14 09:59 | PCM.PN.HOSP ---
Subjective: Patient seen and examined. She had dialysis yesterday and feels much better. She still complains of some mild tingling in her right upper extremity which is chronic. She denies any fever or chills, any cough or chest pain, any palpitations or dizziness, abdominal pain, any diarrhea vomiting. Still complains of abdominal distention though. Labs and vitals reviewed. Vitals/I&O's: Vital Signs Temp Pulse Resp BP Pulse Ox 97.6 F L 76 14 108/40 L 96 04/14/18 04:04 04/14/18 04:04 04/14/18 04:04 04/14/18 04:04 04/14/18 06:54 Oxygen Flow Rate (L/min) 3 Oxygen Delivery Method Nasal Cannula Weight: 197 lb 8.547 oz Body Mass Index (BMI) 32.3 Finger Stick Blood Glucose 99 Intake and Output for Last 24 Hours 04/12/18 04/13/18 04/14/18 23:59 23:59 23:59 Intake Total 1200 / 1200 400 / 400 Output Total 1050 / 1050 Balance 150 / 150 400 / 400 General: Alert, Oriented x3, Cooperative, No apparent distress HEENT: Atraumatic, PERRLA, EOMI, Normocephalic Oral: Moist Mucosa Neck: Supple, No JVD, Negative Carotid Bruits Lungs: Clear to auscultation, Normal air movement, No rhonchi, No wheeze, No rales Cardiovascular: Regular rate, Regular Rhythm, Normal S1, Normal S2, No murmurs Abdomen: Bowel Sounds Present, Soft, Non Tender, Distended - positive fluid thrill, with distended veins on abdomen Extremities: No cyanosis, Capillary Refill Less than 3 Seconds, - - 1+ bipedal pitting edema Skin: No rashes, No breakdown Musculoskeletal: No Tenderness to Palpation of Joints or Extremities Lymphatic: No Cervical, Supraclavicular, or Inguinal Adenopathy Neurological: Cranial nerves II-XII grossly intact, Neuro grossly intact, Motor Exam 5/5 strength throughout Psych/Mental Status: Normal Affect, Appropriate, Alert and oriented to time, place, person, mood and affect Laboratory Results 04/13/18 12:15: POC Glucose 132 H 04/13/18 13:45: Potassium 6.4 H* 04/13/18 17:00: POC Glucose 157 H 04/13/18 20:46: POC Glucose 124 H 04/13/18 22:26: POC Glucose 141 H 04/14/18 04:50: Sodium 136, Potassium 4.6, Chloride 96 L, Carbon Dioxide 30.0, BUN 26 H, Creatinine 2.98 H, Estim Creat Clear Calc 14.68, Est GFR (MDRD) Af Amer 20 L, Est GFR (MDRD) Non-Af 16 L, BUN/Creatinine Ratio 8.7 L, Glucose 144 H, Calcium 8.4 L, Phosphorus 5.1 H, Albumin 2.7 L 04/14/18 04:50: WBC 2.3 L, RBC 3.40 L, Hgb 9.4 L, Hct 32.1 L, MCV 94.4, MCH 27.6, MCHC 29.3 L, RDW 20.6 H, RDW Differential 70.2 H, Plt Count 101 L, MPV 9.1, Immature Gran % (Auto) 0.000, Neut % (Auto) 50.5, Lymph % (Auto) 30.4, [place] % (Auto) 13.9 H, Eos % (Auto) 3.9, Baso % (Auto) 1.3 H, Absolute Neuts (auto) 1.2 L, Absolute Lymphs (auto) 0.70 L, Total Counted Not Reportable, Differential Comment SCAN, Polychromasia 1+, Hypochromasia 1+, Anisocytosis 1+, Microcytosis 1+ 04/14/18 06:52: POC Glucose 137 H Current Medications Acetaminophen (Tylenol) 650 mg PO Q6H PRN PRN PRN Reason: Non-cardiac pain (mod-severe) Last Admin: 04/14/18 09:48 Dose: 650 mg Al Hydroxide/Mg Hydroxide (Mylanta Ii) 30 ml PO Q6H PRN PRN PRN Reason: Gastric burning Atorvastatin Calcium (Lipitor) 80 mg PO QHS [facility] Last Admin: 04/13/18 22:14 Dose: 80 mg Calcium Acetate (Phoslo Gel Cap) 2,001 mg PO TIDCM [facility] Last Admin: 04/14/18 09:45 Dose: 2,001 mg Carvedilol (Coreg) 12.5 mg PO BID [facility] Last Admin: 04/14/18 09:41 Dose: 12.5 mg Cholecalciferol (Vitamin D) 5,000 unit PO MoWeFr@1000 [facility] Docusate Calcium (Surfak) 240 mg PO BID [facility] Last Admin: 04/14/18 09:41 Dose: 240 mg Emollient Ointment (Eucerin Intensive Repair) 1 applic TOPICAL TID [facility]; Protocol Last Admin: 04/14/18 06:53 Dose: 1 applic Gabapentin (Neurontin) 100 mg PO TID [facility] Last Admin: 04/14/18 06:48 Dose: 100 mg Hydralazine HCl (Apresoline Iv) 10 mg IV Q4H PRN PRN PRN Reason: SBP > 160 Insulin Glargine (Lantus (Bk)) 10 units SC QHS [facility] Last Admin: 04/13/18 22:27 Dose: 10 units Insulin Human Lispro (Humalog Kwikpen ([facility])) 0 unit SC ACHS [facility]; Protocol Last Admin: 04/14/18 06:54 Dose: Not Given Isosorbide Mononitrate (Imdur) 30 mg PO BID [facility] Last Admin: 04/14/18 09:42 Dose: 30 mg Lactulose (Chronulac, Cephulac) 26.666 gm PO DAILY PRN PRN PRN Reason: Constipation Losartan Potassium (Cozaar) 50 mg PO BID [facility] Last Admin: 04/14/18 09:43 Dose: 50 mg Magnesium Hydroxide (Milk Of Magnesia) 30 ml PO DAILY PRN PRN PRN Reason: Constipation Multivit/Ca Carb/B Cmplx/FA/Prenat (Nephrocaps, Renaphro) 1 capsule PO DAILY [facility] Last Admin: 04/14/18 09:43 Dose: 1 capsule Ondansetron HCl (Zofran) 4 mg IV Q8H PRN PRN PRN Reason: NAUSEA Last Admin: 04/13/18 10:08 Dose: 4 mg Oxycodone HCl (Oxyir) 5 mg PO Q6H PRN PRN PRN Reason: SEVERE PAIN (6-10/10) Last Admin: 04/14/18 06:48 Dose: 5 mg Pantoprazole Sodium (Protonix) 40 mg PO DAILY [facility] Last Admin: 04/14/18 09:44 Dose: 40 mg Pramipexole Dihydrochloride (Mirapex) 0.25 mg PO QHS [facility] Last Admin: 04/13/18 22:13 Dose: 0.25 mg Promethazine HCl (Phenergan) 12.5 mg IV Q6H PRN PRN PRN Reason: NAUSEA/VOMITING Sodium Chloride () 5 - 30 ml IV UD PRN PRN Reason: SALINE FLUSH Last Admin: 04/13/18 10:08 Dose: 10 ml Sodium Chloride ([place] Nasal [place]) 2 spray NASAL TID PRN PRN PRN Reason: NASAL DRYNESS Medical Necessity - Tobacco Use Smoking Status: Former smoker Tobacco Use: Non-smoker Assessment/Plan All Active Problems (Last Reviewed 08/21/17 @ 14:33 by Pat Gomez) Ascites (Acute) Hypervolemia (Acute) Hypotension (Acute) Fall (Acute) Gait instability (Acute) Pain in right ankle and joints of right foot (Acute) Ileus (Acute) Unstable angina pectoris (Acute) Hyperkalemia (Acute) Chest pressure (Acute) 1. Hyperkalemia due to incomplete dialysis resolved. Had dialysis ysterday after potassium peaked at 6.4 had.. taken off K is now down to 4.6 today will monitor 2. ESrd: has regular dialysis MWF. uremia was likely contributing to her symptoms of lethargy and weakness; per nephro, she was about 8kg over her dry weight Had dialysis yesterday. Nephrology on board. 3. Mechanical falls and debility fall precautions. Phenergan and Flexeril on hold Awaiting placement this cannot take care of herself at home and her is also unable to take care of her. 4. HF reduced EF 2D echo*02/27/18): EF of 65% with severely dilated right ventricle and moderate right global ventricular systolic dysfunction. Left atrium severely enlarged right atrium severely enlarged with aneurysmal atrial septum. Normal left ventricular wall thickness. 3+ tricuspid valve insufficiency. Mild aortic stenosis. RVSP of 35 mmHg which may be underestimated on aspirin, plavix, statin, coreg and ARB on lasix 5. Ascites: Abdominal distention has worsened. Will get CT of the abdomen. Sizes did not resolve even with dialysis. Does have a history of liver hemangioma from abdominal MRI done in November 2017. Will hold aspirin and Plavix for today in order abdominal paracentesis. Hopefully we radiology will admit though she would have been off aspirin and Plavix for just 2 days. 6. Hyponatremia: resolved. Na is 136 today; improved after she had dialysis. 7. Chronic hypoxic respiratory failure due to CHF and ESRD: on home oxygen 3L prn and at night and breathing treatments 8. RUE pain: pain in right shoulder, right upper arm and right hand is much better. Xrays of RUE showed degenerative arthrosis of the right shoulder and the carpometacarpal articulation of the right thumb. Right humerus is normal. on tylenol for pain 9. Hypertension: on coreg, doxazosin, imdur, losartan and lasix. hydralazine prn 10. Hyperlipidemia: On statin. 11. GERD: PPI 12. Chronic atrial flutter: Currently on Coreg only. Also on aspirin and Plavix. No anti-coagulation on account of fall risk. Aspirin and plavix currently on hold for paracentesis tomorrow 13. CAD s/ps tent; on aspirin, plavix and statin, coreg and losartan. 14. Diabetes mellitus: continue on insulin lantus 10IU qhs; ISS. Accuchecks ACHS DVT prophylaxis: SCDs. Heparin CODE STATUS: Full code Disposition: awaiting placement. Code Visit Inpatient E&M: 31914 Subs Hosp L3
--- NOTE | 2018-04-14 10:03 | PN_ITS ---
Subjective: Patient seen and examined. She had dialysis yesterday and feels much better. She still complains of some mild tingling in her right upper extremity which is chronic. She denies any fever or chills, any cough or chest pain, any palpitations or dizziness, abdominal pain, any diarrhea vomiting. Still complains of abdominal distention though. Labs and vitals reviewed. Vitals/I&O's: Vital Signs Temp Pulse Resp BP Pulse Ox 97.6 F L 76 14 108/40 L 96 04/14/18 04:04 04/14/18 04:04 04/14/18 04:04 04/14/18 04:04 04/14/18 06:54 Oxygen Flow Rate (L/min) 3 Oxygen Delivery Method Nasal Cannula Weight: 197 lb 8.547 oz Body Mass Index (BMI) 32.3 Finger Stick Blood Glucose 99 Intake and Output for Last 24 Hours 04/12/18 04/13/18 04/14/18 23:59 23:59 23:59 Intake Total 1200 / 1200 400 / 400 Output Total 1050 / 1050 Balance 150 / 150 400 / 400 General: Alert, Oriented x3, Cooperative, No apparent distress HEENT: Atraumatic, PERRLA, EOMI, Normocephalic Oral: Moist Mucosa Neck: Supple, No JVD, Negative Carotid Bruits Lungs: Clear to auscultation, Normal air movement, No rhonchi, No wheeze, No rales Cardiovascular: Regular rate, Regular Rhythm, Normal S1, Normal S2, No murmurs Abdomen: Bowel Sounds Present, Soft, Non Tender, Distended - positive fluid thrill, with distended veins on abdomen Extremities: No cyanosis, Capillary Refill Less than 3 Seconds, - - 1+ bipedal pitting edema Skin: No rashes, No breakdown Musculoskeletal: No Tenderness to Palpation of Joints or Extremities Lymphatic: No Cervical, Supraclavicular, or Inguinal Adenopathy Neurological: Cranial nerves II-XII grossly intact, Neuro grossly intact, Motor Exam 5/5 strength throughout Psych/Mental Status: Normal Affect, Appropriate, Alert and oriented to time, place, person, mood and affect Laboratory Results 04/13/18 12:15: POC Glucose 132 H 04/13/18 13:45: Potassium 6.4 H* 04/13/18 17:00: POC Glucose 157 H 04/13/18 20:46: POC Glucose 124 H 04/13/18 22:26: POC Glucose 141 H 04/14/18 04:50: Sodium 136, Potassium 4.6, Chloride 96 L, Carbon Dioxide 30.0, BUN 26 H, Creatinine 2.98 H, Estim Creat Clear Calc 14.68, Est GFR (MDRD) Af Amer 20 L, Est GFR (MDRD) Non-Af 16 L, BUN/Creatinine Ratio 8.7 L, Glucose 144 H , Calcium 8.4 L, Phosphorus 5.1 H, Albumin 2.7 L 04/14/18 04:50: WBC 2.3 L, RBC 3.40 L, Hgb 9.4 L, Hct 32.1 L, MCV 94.4, MCH 27.6, MCHC 29.3 L, RDW 20.6 H, RDW Differential 70.2 H, Plt Count 101 L, MPV 9.1, Immature Gran % (Auto) 0.000, Neut % (Auto) 50.5, Lymph % (Auto) 30.4, [place] % (Auto) 13.9 H, Eos % (Auto) 3.9, Baso % (Auto) 1.3 H, Absolute Neuts (auto) 1.2 L, Absolute Lymphs (auto) 0.70 L, Total Counted Not Reportable, Differential Comment SCAN, Polychromasia 1+, Hypochromasia 1+, Anisocytosis 1+, Microcytosis 1+ 04/14/18 06:52: POC Glucose 137 H Current Medications Acetaminophen (Tylenol) 650 mg PO Q6H PRN PRN PRN Reason: Non-cardiac pain (mod-severe) Last Admin: 04/14/18 09:48 Dose: 650 mg Al Hydroxide/Mg Hydroxide (Mylanta Ii) 30 ml PO Q6H PRN PRN PRN Reason: Gastric burning Atorvastatin Calcium (Lipitor) 80 mg PO QHS [facility] Last Admin: 04/13/18 22:14 Dose: 80 mg Calcium Acetate (Phoslo Gel Cap) 2,001 mg PO TIDCM [facility] Last Admin: 04/14/18 09:45 Dose: 2,001 mg Carvedilol (Coreg) 12.5 mg PO BID [facility] Last Admin: 04/14/18 09:41 Dose: 12.5 mg Cholecalciferol (Vitamin D) 5,000 unit PO MoWeFr@1000 [facility] Docusate Calcium (Surfak) 240 mg PO BID [facility] Last Admin: 04/14/18 09:41 Dose: 240 mg Emollient Ointment (Eucerin Intensive Repair) 1 applic TOPICAL TID [facility]; Protocol Last Admin: 04/14/18 06:53 Dose: 1 applic Gabapentin (Neurontin) 100 mg PO TID [facility] Last Admin: 04/14/18 06:48 Dose: 100 mg Hydralazine HCl (Apresoline Iv) 10 mg IV Q4H PRN PRN PRN Reason: SBP > 160 Insulin Glargine (Lantus (Bk)) 10 units SC QHS [facility] Last Admin: 04/13/18 22:27 Dose: 10 units Insulin Human Lispro (Humalog Kwikpen ([facility])) 0 unit SC ACHS [facility]; Protocol Last Admin: 04/14/18 06:54 Dose: Not Given Isosorbide Mononitrate (Imdur) 30 mg PO BID [facility] Last Admin: 04/14/18 09:42 Dose: 30 mg Lactulose (Chronulac, Cephulac) 26.666 gm PO DAILY PRN PRN PRN Reason: Constipation Losartan Potassium (Cozaar) 50 mg PO BID [facility] Last Admin: 04/14/18 09:43 Dose: 50 mg Magnesium Hydroxide (Milk Of Magnesia) 30 ml PO DAILY PRN PRN PRN Reason: Constipation Multivit/Ca Carb/B Cmplx/FA/Prenat (Nephrocaps, Renaphro) 1 capsule PO DAILY [facility] Last Admin: 04/14/18 09:43 Dose: 1 capsule Ondansetron HCl (Zofran) 4 mg IV Q8H PRN PRN PRN Reason: NAUSEA Last Admin: 04/13/18 10:08 Dose: 4 mg Oxycodone HCl (Oxyir) 5 mg PO Q6H PRN PRN PRN Reason: SEVERE PAIN (6-10/10) Last Admin: 04/14/18 06:48 Dose: 5 mg Pantoprazole Sodium (Protonix) 40 mg PO DAILY [facility] Last Admin: 04/14/18 09:44 Dose: 40 mg Pramipexole Dihydrochloride (Mirapex) 0.25 mg PO QHS [facility] Last Admin: 04/13/18 22:13 Dose: 0.25 mg Promethazine HCl (Phenergan) 12.5 mg IV Q6H PRN PRN PRN Reason: NAUSEA/VOMITING Sodium Chloride () 5 - 30 ml IV UD PRN PRN Reason: SALINE FLUSH Last Admin: 04/13/18 10:08 Dose: 10 ml Sodium Chloride ([place] Nasal [place]) 2 spray NASAL TID PRN PRN PRN Reason: NASAL DRYNESS Medical Necessity - Tobacco Use Smoking Status: Former smoker Tobacco Use: Non-smoker Assessment/Plan All Active Problems (Last Reviewed 08/21/17 @ 14:33 by Pat Gomez) Ascites (Acute) Hypervolemia (Acute) Hypotension (Acute) Fall (Acute) Gait instability (Acute) Pain in right ankle and joints of right foot (Acute) Ileus (Acute) Unstable angina pectoris (Acute) Hyperkalemia (Acute) Chest pressure (Acute) 1. Hyperkalemia due to incomplete dialysis * resolved. Had dialysis ysterday after potassium peaked at 6.4 * had.. taken off * K is now down to 4.6 today * will monitor * 2. ESrd: * has regular dialysis MWF. * uremia was likely contributing to her symptoms of lethargy and weakness; per nephro, she was about 8kg over her dry weight * Had dialysis yesterday. Nephrology on board. 3. Mechanical falls and debility * fall precautions. Phenergan and Flexeril on hold * Awaiting placement this cannot take care of herself at home and her is also unable to take care of her. * 4. HF reduced EF * 2D echo*02/27/18): EF of 65% with severely dilated right ventricle and moderate right global ventricular systolic dysfunction. Left atrium severely enlarged right atrium severely enlarged with aneurysmal atrial septum. Normal left ventricular wall thickness. 3+ tricuspid valve insufficiency. Mild aortic stenosis. RVSP of 35 mmHg which may be underestimated * on aspirin, plavix, statin, coreg and ARB * on lasix * 5. Ascites: * Abdominal distention has worsened. * Will get CT of the abdomen. * Sizes did not resolve even with dialysis. * Does have a history of liver hemangioma from abdominal MRI done in November 2017. * Will hold aspirin and Plavix for today in order abdominal paracentesis. Hopefully we radiology will admit though she would have been off aspirin and Plavix for just 2 days. * * 6. Hyponatremia: resolved. Na is 136 today; improved after she had dialysis. 7. Chronic hypoxic respiratory failure due to CHF and ESRD: * on home oxygen 3L prn and at night and breathing treatments 8. RUE pain: * pain in right shoulder, right upper arm and right hand is much better. * Xrays of RUE showed degenerative arthrosis of the right shoulder and the carpometacarpal articulation of the right thumb. Right humerus is normal. * on tylenol for pain 9. Hypertension: on coreg, doxazosin, imdur, losartan and lasix. hydralazine prn 10. Hyperlipidemia: On statin. 11. GERD: PPI 12. Chronic atrial flutter: * Currently on Coreg only. Also on aspirin and Plavix. * No anti-coagulation on account of fall risk. * Aspirin and plavix currently on hold for paracentesis tomorrow 13. CAD s/ps tent; on aspirin, plavix and statin, coreg and losartan. 14. Diabetes mellitus: continue on insulin lantus 10IU qhs; ISS. Accuchecks ACHS DVT prophylaxis: SCDs. Heparin CODE STATUS: Full code * Disposition: awaiting placement. Code Visit Inpatient E&M: 70644 Subs Hosp L3
[2018-04-14 12:01] LABS: Bedside Glucose 162 mg/dL (70-110)
[2018-04-14] MEDS: Insulin Lispro 100 UNIT/ML INSULN.PEN SC ×2 (12:04→16:34)
[2018-04-14 16:41] LABS: Bedside Glucose 155 mg/dL (70-110)
--- NOTE | 2018-04-14 17:18 | PN_ITS ---
Progress Note 73 y/o F with ESRD due to DM T2 HD MWF at [place] unit admitted for weakness, unable to ambulate for several days. She was dialyzed Sunday for hyperkalemia K 6.4 despite receiving full treatment Sunday. Potassium 5.3 post treatment on Sunday. She has chronic hyperkalemia, volume overload with high interdialytic fluid gains. BP low on admit. Medications adjusted. Next dialysis Sunday.
[2018-04-14] MEDS: Atorvastatin Calcium 80 MG Tablet PO (22:09)
[2018-04-14] MEDS: Pramipexole Di-HCl 0.25 MG Tablet PO (22:09)
[2018-04-14 22:35] LABS: Bedside Glucose 134 mg/dL (70-110)
[2018-04-15] VITALS (14 sets, daily range): BP systolic 133–160; BP diastolic 45–65; PULSE 65–74; RESP 16–20; TEMP 36.6–37.1; O2SAT 92–100
--- NOTE | 2018-04-15 | FLU_PTH ---
PATIENT: ULISES CAR LOC: MS3 U#:[id number] AGE/SX: 73/F ROOM: [facility] [place] RE04/13/[address]: Dr. Salvador Ireland MD : [id number] BED: 1 DIS: 04/16/2018 SPEC #: [id number] RECD: 04/15/18 12:40 STATUS: QUINTON REChencho #: [id number] RODERICK: 04/15/18 00:[address]: Salvador Ireland DEPT: CYTOLOGY RECD BY: Sabino Sanz ENTERED: 04/15/18 12:40 SP TYPE: Fluid OTHR DR: MD Dr. Anuradha Byrnes, DO Dr. Allie Lund, DO Tissues: PARACENTESIS FLUID Procedures: Special Stain Group II Surgery Specimen Level IV Cytospin Fluid HEADER OPERATION: Ultrasound-guided right paracentesis PRE-OP DIAGNOSIS: Ascites TISSUE SUBMITTED: Paracentesis fluid for cytology DIAGNOSIS CYTOLOGY Paracentesis fluid for cytology (cytospin and cell block): Negative for malignant cells. AM:christina 04/16/18 CYTOLOGY STUDY Slides are reviewed. CYTOLOGY GROSS Received is 60 ml of red cloudy fluid labeled with the patient's name and and designated per the requisition as paracentesis. Submitted for cytology preparation including cell block. 04/15/18 TC:5 CPT: 58111, 66052
[2018-04-15] MEDS: oxyCODONE 5 MG Tablet PO ×3 (02:47→22:05)
[2018-04-15] MEDS: Gabapentin 100 MG Capsule PO ×3 (06:22→23:07)
[2018-04-15 06:36] LABS: Albumin, Serum 2.8 g/dL (3.2-5.0); BUN 32 mg/dL (7-18); BUN/Creat Ratio 8.3 RATIO (10-20); Calcium,Total 9.3 mg/dL (8.5-10.1); Chloride 94 mmol/L (98-107); Creatinine, Serum 3.87 mg/dL (0.55-1.02); EST Glomerular Filtration Rate 12 mL/min (>60); Est Glom Filt Rate - Afr Amer 15 mL/min (>60); Glucose 118 mg/dL (74-106); Phosphorus 5.3 mg/dL (2.5-4.9); Sodium Level 136 mmol/L (136-145)
[2018-04-15 06:41] LABS: Bedside Glucose 107 mg/dL (70-110)
[2018-04-15 07:43] LABS: Absolute Lymphocyte Count 1.11 X10^3/ul (0.83-4.51); Absolute Neutrophil Count 1.9 X10^3/uL (2.0-7.7); Basophil# 0.03 X10^3/uL; Basophil% 0.9 % (0-1); Differential Indicated SCAN CRITERIA MET; Eosinophil# 0.12 X10^3/uL; Eosinophils% 3.4 % (0-5); Hematocrit 34.1 % (37-47); Hemoglobin 9.8 g/dl (12.0-15.0); Lymphocyte # 1.11 X10^3/ul (4.0); Lymphocyte % 31.7 % (19-41); Mean Corp Hgb Conc 28.7 g/gl (32-36); Mean Corpuscular Hgb 27.5 pg (27.0-32.0); Mean Corpuscular Volume 95.5 fL (81-99); Mean Platelet Vol. 9.3 fl (6.2-12.0); Monocyte# 0.35 X10^3/uL; Neutrophil # 1.88 X10^3/uL (2.7-7.7); Neutrophil % 53.7 % (47-70); POSITIVE COUNT NO; POSITIVE DIFFERENTIAL NO; POSITIVE MORPHOLOGY YES; Platelet Count 107 K/mm3 (150-450); RBC Distribution Width CV 20.5 % (11.6-14.6); RBC Distribution Width SD 70.8 fl (35.1-43.9); Red Blood Count 3.57 M/mm3 (4.2-5.4); White Blood Count 3.5 K/mm3 (4.4-11.0)
--- NOTE | 2018-04-15 08:00 | US_ITS ---
PROCEDURE: Ultrasound guided paracentesis. DATE OF EXAMINATION: April 15, 2018. INDICATION: Female, 73 years old. Ascites. PHYSICIAN: Eric Mckay M.D. TECHNIQUE: The risks, benefits, and alternatives to the procedure were explained to the patient. The specific risks of bleeding, infection, and damage to bowel were detailed and accepted. Witnessed informed consent was obtained. The abdomen was ultrasonographically surveyed. An appropriate pocket of fluid was identified at the right lower quadrant. The skin were cleaned and prepped in the usual sterile fashion. Using ultrasound guidance, the peritoneal cavity was accessed with a 5-Brazilian paracentesis needle/catheter system. The trocar was removed. A total of 4070 ml of blood-tinged fluid were removed from the peritoneal cavity. A 120 mL sample of the fluid was sent to laboratory for analysis. The catheter was removed and a sterile dressing was applied. The procedure was well tolerated. US/Paracentesis with US IMPRESSION: Ultrasound guided paracentesis. Electronically Signed: Eric Mckay MD at 12:41 EST Tel [phone], Service support ,
--- NOTE | 2018-04-15 08:35 | NURSING ---
Was asked to see patient for venous changes to bilateral lower legs. patient has a few scattered small scabbed areas noted. minimal redness and some mild edema noted. patient states she could not tolerated the IOANA wraps that had been applied. no open wounds noted. no drainage noted. will monitor legs. applied Eucerin at this time and did not wrap legs per patient request. could consider CLIVE hose if patient would allow, but only mild edema noted at this time.
[2018-04-15 08:48] LABS: International Normalized Ratio 1.3; Prothrombin Time (Protime)PT. 16.1 SECONDS (11.7-14.9)
--- NOTE | 2018-04-15 09:45 | PN_ITS ---
Subjective: Doing well, feels ok and states that she feels like her strength has returned. She does not understand why her abdomen is still distended it has been like this over a month and there was not enough fluid to drain previously. - Physical Exam General: Alert, Oriented x3, Cooperative, No apparent distress HEENT: Atraumatic, EOMI, Normocephalic Oral: Moist Mucosa Neck: Supple, No JVD Lungs: Clear to auscultation, Normal air movement, No rhonchi, No wheeze, No rales Cardiovascular: Regular rate, Regular Rhythm, Normal S1, Normal S2, No murmurs Abdomen: Soft, Non Tender, No Hepato-splenomegaly, Distended Extremities: No edema, Capillary Refill Less than 3 Seconds Skin: No rashes, No breakdown Neurological: Neuro grossly intact, Sensory exam intact to light touch and pain Psych/Mental Status: Normal Affect, Appropriate Vital Signs Temp Pulse Resp BP Pulse Ox 97.9 F 71 16 144/58 H 96 04/15/18 08:17 04/15/18 08:36 04/15/18 08:36 04/15/18 08:17 04/15/18 08:36 Oxygen Flow Rate (L/min) 2 Oxygen Delivery Method Room Air Weight: 197 lb 8.547 oz Body Mass Index (BMI) 32.3 Finger Stick Blood Glucose 99 Intake and Output for Last 24 Hours 04/13/18 04/14/18 04/15/18 23:59 23:59 23:59 Intake Total 1200 / 1200 400 / 400 Output Total 1050 / 1050 Balance 150 / 150 400 / 400 Laboratory Tests Past 24 Hrs 04/15/18 04/15/18 04/15/18 05:25 05:25 08:04 WBC 3.5 L RBC 3.57 L Hgb 9.8 L Hct 34.1 L MCV 95.5 MCH 27.5 MCHC 28.7 L RDW 20.5 H RDW Differential 70.8 H Plt Count 107 L MPV 9.3 Immature Gran % (Auto) 0.300 Neut % (Auto) 53.7 Lymph % (Auto) 31.7 [place] % (Auto) 10.0 Eos % (Auto) 3.4 Baso % (Auto) 0.9 Absolute Neuts (auto) 1.9 L Absolute Lymphs (auto) 1.11 Total Counted Not Reportable Differential Comment COMMENT PT 16.1 H INR 1.3 APTT 37.0 H Sodium 136 Potassium 5.0 Chloride 94 L Carbon Dioxide 31.0 BUN 32 H Creatinine 3.87 H Estim Creat Clear Calc 11.30 Est GFR (MDRD) Af Amer 15 L Est GFR (MDRD) Non-Af 12 L BUN/Creatinine Ratio 8.3 L Glucose 118 H Calcium 9.3 Phosphorus 5.3 H Albumin 2.8 L POC Glucose 04/15/18 04/14/18 04/14/18 06:19 22:05 16:32 POC Glucose 107 134 H 155 H 04/14/18 11:55 POC Glucose 162 H Medical Necessity - Tobacco Use Smoking Status: Former smoker Tobacco Use: Non-smoker Assessment/Plan All Active Problems (Last Reviewed 08/21/17 @ 14:33 by Pat Gomez) Ascites (Acute) Hypervolemia (Acute) Hypotension (Acute) Fall (Acute) Gait instability (Acute) Pain in right ankle and joints of right foot (Acute) Ileus (Acute) Unstable angina pectoris (Acute) Hyperkalemia (Acute) Chest pressure (Acute) 1. Mechanical falls and debility - Unsure of etiology at the moment - Could have been d/t the elevated potassium and overload and the repeat dialysis helped on sunday - PT/OT recommends SNF - Will Plan for DC tomorrow 2. ESRD/Chronic dCHF/Hyperkalemia (reolved)/Hyponatremia (resolved)/HTN/HLD/CAD s/p stent - Dialysis is on MWF, should have again today - Partial dialysis on Sunday for her hyperkalemia which has resolved - Echo on 03/07 with an EF of 65% with right sided systolic dysfunction. - c/w Asa, plavix, statin, coreg and ARB - c/w lasix 3. Ascites - CT abdomen demonstrates the ascites with anasarca - Continue to hold antiplatelets, INR is 1.3 - Plan for paracentesis today - CMP in am 4. Chronic hypoxic respiratory failure 2/2 CHF and ESRD - C/w home o2 at night and breathing treatments 5. GERD - stable - c/w home PPI 6. RUE pain - resolved today - xrays were unremarkable with degenerative changes only 7. DM - Lantus and SSI with accuchecks - BG 118 today DVT: Heparin/SCDs Code: FULL Code Visit Inpatient E&M: 67640 Subs Hosp L2
[2018-04-15] MEDS: Calcium Acetate 667 MG Capsule 2001 MG PO ×3 (10:41→17:27)
[2018-04-15] MEDS: Pantoprazole Sodium 40 MG Tablet PO (10:45)
[2018-04-15 10:55] LABS: Pathologist Review Reviewed
--- NOTE | 2018-04-15 11:21 | CON.PCM_ITS ---
Consultation - Renal PCP/ Referring MD: Requesting physician: [] Primary care physician: Allie Lund Reason for Consultation:: ESRD HD MWF, hyperkalemia - History of Present Illness History of Present Illness: The patient is a 73 year old F well known to me with ESRD due to diabetes, hypertension sent to ER after dialysis Sunday for persistent weakness. She has been noncompliant with her diet with tucker fluid gains, hyperkalemia. Stressed to her multiple times about fluid restriction and low potassium diet. She has been consuming 6-8 glasses of ice milk a day at home. She received extra dialysis Sunday for K 6.4. She is feeling better now and is able to walk with walker. She was crawling, unable to get up on bed at home prior to admit. She is willing to go to [facility] for continued rehab. She denies any recent fever, chills, nausea, emesis, abdominal pain, change in bowel pattern. She has a history of constipation, ascites found on CT. Radiology was unable to perform paracentesis last month but was able to remove 4L today. - Allergies Allergies: Allergies lisinopril Allergy (Verified 04/12/18 22:09) Swelling nebivolol HCl [From Bystolic] Adverse Reaction (Verified 04/12/18 22:09) bradycardia BRADYCARDIA - Current Medications Current Medications: Current Medications Acetaminophen (Tylenol) 650 mg PO Q6H PRN PRN PRN Reason: Non-cardiac pain (mod-severe) Last Admin: 04/14/18 09:48 Dose: 650 mg Al Hydroxide/Mg Hydroxide (Mylanta Ii) 30 ml PO Q6H PRN PRN PRN Reason: Gastric burning Atorvastatin Calcium (Lipitor) 80 mg PO QHS [facility] Last Admin: 04/14/18 22:09 Dose: 80 mg Calcium Acetate (Phoslo Gel Cap) 2,001 mg PO TIDCM [facility] Last Admin: 04/15/18 10:41 Dose: 2,001 mg Carvedilol (Coreg) 12.5 mg PO BID [facility] Last Admin: 04/15/18 11:04 Dose: Not Given Cholecalciferol (Vitamin D) 5,000 unit PO MoWeFr@1000 [facility] Last Admin: 04/15/18 11:04 Dose: Not Given Docusate Calcium (Surfak) 240 mg PO BID [facility] Last Admin: 04/15/18 10:45 Dose: 240 mg Emollient Ointment (Eucerin Intensive Repair) 1 applic TOPICAL TID [facility]; Protocol Last Admin: 04/15/18 06:22 Dose: 1 applic Gabapentin (Neurontin) 100 mg PO TID [facility] Last Admin: 04/15/18 06:22 Dose: 100 mg Hydralazine HCl (Apresoline Iv) 10 mg IV Q4H PRN PRN PRN Reason: SBP > 160 Insulin Glargine (Lantus (Bkc)) 10 units SC QHS [facility] Last Admin: 04/14/18 22:08 Dose: 10 units Insulin Human Lispro (Humalog Kwikpen (Bk)) 0 unit SC ACHS [facility]; Protocol Last Admin: 04/15/18 06:22 Dose: Not Given Isosorbide Mononitrate (Imdur) 30 mg PO BID [facility] Last Admin: 04/15/18 11:04 Dose: Not Given Lactulose (Chronulac, Cephulac) 26.666 gm PO DAILY PRN PRN PRN Reason: Constipation Losartan Potassium (Cozaar) 50 mg PO BID [facility] Last Admin: 04/15/18 11:04 Dose: Not Given Magnesium Hydroxide (Milk Of Magnesia) 30 ml PO DAILY PRN PRN PRN Reason: Constipation Multivit/Ca Carb/B Cmplx/FA/Prenat (Nephrocaps, Renaphro) 1 capsule PO DAILY [facility] Last Admin: 04/14/18 09:43 Dose: 1 capsule Ondansetron HCl (Zofran) 4 mg IV Q8H PRN PRN PRN Reason: NAUSEA Last Admin: 04/13/18 10:08 Dose: 4 mg Oxycodone HCl (Oxyir) 5 mg PO Q6H PRN PRN PRN Reason: SEVERE PAIN (6-10/10) Last Admin: 04/15/18 02:47 Dose: 5 mg Pantoprazole Sodium (Protonix) 40 mg PO DAILY [facility] Last Admin: 04/15/18 10:45 Dose: 40 mg Pramipexole Dihydrochloride (Mirapex) 0.25 mg PO QHS [facility] Last Admin: 04/14/18 22:09 Dose: 0.25 mg Promethazine HCl (Phenergan) 12.5 mg IV Q6H PRN PRN PRN Reason: NAUSEA/VOMITING Sodium Chloride () 5 - 30 ml IV UD PRN PRN Reason: SALINE FLUSH Last Admin: 04/13/18 10:08 Dose: 10 ml Sodium Chloride (Steele Nasal [place]) 2 spray NASAL TID PRN PRN PRN Reason: NASAL DRYNESS - Past Medical History Past Medical History (Chronic Problems): Chronic Problems (Last Reviewed 08/21/17 @ 14:33 by Pat Gomez) Fracture of fifth metatarsal bone of right foot (Chronic) Other specified peripheral vascular diseases (Chronic) Afib (Chronic) Congenital coronary artery anomaly (Chronic) S/P PTCA (percutaneous transluminal coronary angioplasty) (Chronic) NSTEMI (non-ST elevated myocardial infarction) (Chronic) Bradycardia (Chronic) CAD (coronary artery disease) (Chronic) Diabetes mellitus, type II (Chronic) Hyperlipidemia (Chronic) Hypothyroidism (Chronic) Anemia in chronic kidney disease (Chronic) Hypertension (Chronic) End stage renal disease on dialysis (Chronic) - Past Surgical History Surgical History: - - Left upper extremity fistula, cholecystectomy, back surgery, colon resection with history of diverticulitis, hysterectomy, appendectomy, right knee surgery, right total knee replacement, right foot surgery, left knee surgery, left foot surgery, PCI. - Social History Smoking Status: Former smoker Alcohol: None Drugs: None - Family History Maternal Family History: Family History (Last Updated 08/21/17 @ 14:36 by Pat Gomez) Sister Diabetes Hypertension History Items: Cancer - uterine Paternal Family History: Family History (Last Updated 08/21/17 @ 14:36 by Pat Gomez) Sister Diabetes Hypertension History Items: Cancer Sibling Family History: Family History (Last Updated 08/21/17 @ 14:36 by Pat Gomez) Sister Diabetes Hypertension History Items: Diabetes - Physical Exam General: Alert, Oriented x3, Cooperative, No apparent distress HEENT: PERRLA, EOMI Lungs: Clear to auscultation Cardiovascular: Regular rate, Murmur Abdomen: Bowel Sounds Present, Soft, Non Tender, Non-Distended, Obese Extremities: Edema - mild, chronic Skin: - - erythema of legs Psych/Mental Status: Normal Affect, Appropriate, Alert and oriented to time, place, person, mood and affect Vital Signs Temp Pulse Resp BP Pulse Ox 97.9 F 65 16 160/60 H 93 04/15/18 08:17 11/26/18 10:49 04/15/18 10:30 04/15/18 10:30 04/15/18 10:15 Oxygen Flow Rate (L/min) 2 Oxygen Delivery Method [2] Room Air Oxygen Delivery Method [1 ( Room Air Initial Baseline)] Oxygen Delivery Method Room Air Weight: 85.3 kg Body Mass Index (BMI) 32.3 Finger Stick Blood Glucose 99 Intake and Output for Last 24 Hours 04/13/18 04/14/18 04/15/18 23:59 23:59 23:59 Intake Total 1200 / 1200 400 / 400 Output Total 1050 / 1050 8143 / 8143 Balance 150 / 150 400 / 400 -8143 / -8143 Laboratory Tests Past 24 Hrs 04/12/18 04/15/18 04/15/18 19:27 05:25 05:25 WBC 3.5 L RBC 3.57 L Hgb 9.8 L Hct 34.1 L MCV 95.5 MCH 27.5 MCHC 28.7 L RDW 20.5 H RDW Differential 70.8 H Plt Count 107 L MPV 9.3 Immature Gran % (Auto) 0.300 Neut % (Auto) 53.7 Lymph % (Auto) 31.7 [place] % (Auto) 10.0 Eos % (Auto) 3.4 Baso % (Auto) 0.9 Absolute Neuts (auto) 1.9 L Absolute Lymphs (auto) 1.11 Total Counted Not Reportable Differential Comment COMMENT Diff Path Review Reviewed PT INR APTT Sodium 136 Potassium 5.0 Chloride 94 L Carbon Dioxide 31.0 BUN 32 H Creatinine 3.87 H Estim Creat Clear Calc 11.30 Est GFR (MDRD) Af Amer 15 L Est GFR (MDRD) Non-Af 12 L BUN/Creatinine Ratio 8.3 L Glucose 118 H Calcium 9.3 Phosphorus 5.3 H Albumin 2.8 L Fluid Source Fluid Color Fluid Appearance Fluid WBC Fluid RBC Fluid Tot Cell Count Fl Pathologist Comment Fluid Glucose Fluid Total Protein Fluid LDH Fluid Comment 2 04/15/18 04/15/18 04/15/18 08:04 10:00 10:00 WBC RBC Hgb Hct MCV MCH MCHC RDW RDW Differential Plt Count MPV Immature Gran % (Auto) Neut % (Auto) Lymph % (Auto) [place] % (Auto) Eos % (Auto) Baso % (Auto) Absolute Neuts (auto) Absolute Lymphs (auto) Total Counted Differential Comment Diff Path Review PT 16.1 H INR 1.3 APTT 37.0 H Sodium Potassium Chloride Carbon Dioxide BUN Creatinine Estim Creat Clear Calc Est GFR (MDRD) Af Amer Est GFR (MDRD) Non-Af BUN/Creatinine Ratio Glucose Calcium Phosphorus Albumin Fluid Source Pending Fluid Color Pending Fluid Appearance Pending Fluid WBC Pending Fluid RBC Pending Fluid Tot Cell Count Pending Fl Pathologist Comment Pending Fluid Glucose Pending Fluid Total Protein Pending Fluid LDH Pending Fluid Comment 2 Pending POC Glucose 04/15/18 04/14/18 04/14/18 06:19 22:05 16:32 POC Glucose 107 134 H 155 H 04/14/18 11:55 POC Glucose 162 H Clinical Impression(s) from Imaging Studies Abdomen/Pelvis CT 04/14/18 08:08 IMPRESSION: 1. Ascites and anasarca. 2. Bilateral renal atrophy from known chronic renal failure. 3. Small hiatal hernia. 4. Subsegmental atelectases in the bibasilar region. 5. Small left posterior pleural fluid. 6. Cardiomegaly. 7. No suspicious mass or acute abnormality in the abdomen and pelvis. 8. Increased ascites and persistent anasarca when compared to 12/26/2017. Electronically Signed: Cornelius Hanson MD at 16:25 EST , Service support , Assessment/Plan All Active Problems (Last Reviewed 08/21/17 @ 14:33 by Pat Gomez) Ascites (Acute) Hypervolemia (Acute) Hypotension (Acute) Fall (Acute) Gait instability (Acute) Pain in right ankle and joints of right foot (Acute) Ileus (Acute) Unstable angina pectoris (Acute) Hyperkalemia (Acute) Chest pressure (Acute) 1. ESRD HD MWF. Dialysis later today 2. HTN episode of hypotension on admit, improved after discontinuation of doxazosin 3. Hyperkalemia due to dietary noncompliance. Discussed diet 4. DM2 primary mgmt 5. Weakness likely due to hyperkalemia. Arrange for ECF for rehab. 6. Ascites s/p paracentesis today
[2018-04-15 11:32] LABS: Body Fluid Mononuclear WBC # 0.265 10^3/uL; Body Fluid Mononuclear WBC % 91.4 %; Body Fluid Polynuclear WBC # 0.025 10^3/uL; Body Fluid Polynuclear WBC % 8.6 %; Body Fluid Total Cells Counted 0.351 10^3/ul (0.000-0.000)
[2018-04-15 11:37] LABS: Appearance/Body Fluid CLOUDY; Auto B Fluid Analyzer BKGD Ct COUNTS W/IN LIMITS (W/IN LIMITS); Color/Body Fluid RED; Source- Body Fluid OTHER
[2018-04-15 11:43] LABS: Glucose, Body Fluid 133 mg/dL (40-70); LDH,Body Fluid 99 Units/l (Not Establ.); Protein, Body Fluid 4.5 g/dL (Not Establ.)
[2018-04-15 11:45] LABS: Bedside Glucose 125 mg/dL (70-110)
[2018-04-15 12:32] LABS: Body Fluid QC Type(s) BF2Q; Lymphocytes 49 %; Mesothelial Cells 37 %; Monocytes 6 %; Neutrophil (Segs) 8 %
--- NOTE | 2018-04-15 12:37 | CASEMGMT ---
Social Work: Met with patient to discuss D/C planning. Patient admits to needing SNF placement at D/C due to weakness and debility. Patient prefers [facility] [place] as she has been a patient there before. Patient indicating that she will not have transportation to and from dialysis but states that [facility] provided transportation for dialysis when patient was there before. TC to [facility] at the [facility]. [facility] states that they are able to accept patient and will transport patient to and from dialysis. [facility] aware that patient will be ready for D/c tomorrow. Clinicals faxed to [facility]. Spoke to patient in room again. Patient aware that [facility] is able to accept patient and will plan to transport patient to and from dialysis. SW to follow and assist with D/C planning as needed. PLAN: Patient to be discharged to [facility] when medically ready. MANDY Jack
[2018-04-15] MEDS: Folic Acid/Vitamin B Comp W-C 1 Capsule 1 CAP PO (17:27)
[2018-04-15] MEDS: Insulin Lispro 100 UNIT/ML INSULN.PEN SC (17:27)
[2018-04-15 17:30] LABS: Bedside Glucose 165 mg/dL (70-110)
[2018-04-15] MEDS: Carvedilol 12.5 MG Tablet PO (23:07)
[2018-04-15] MEDS: Atorvastatin Calcium 80 MG Tablet PO (23:07)
[2018-04-15] MEDS: Losartan Potassium 50 MG Tablet PO (23:07)
[2018-04-15] MEDS: Pramipexole Di-HCl 0.25 MG Tablet PO (23:07)
[2018-04-15] MEDS: Isosorbide Mononitrate 30 MG Tablet PO (23:07)
[2018-04-15] MEDS: Lactulose 20 GM/30 ML UDC 26.666 GM PO (23:10)
[2018-04-16 01:21] LABS: Bedside Glucose 128 mg/dL (70-110)
[2018-04-16 03:56] VITALS: BP 160/68; PULSE 70; RESP 14; TEMP 37.1; O2SAT 97
[2018-04-16] MEDS: oxyCODONE 5 MG Tablet PO ×2 (04:26→12:26)
[2018-04-16] MEDS: Gabapentin 100 MG Capsule PO (07:05)
[2018-04-16 07:16] LABS: Bedside Glucose 90 mg/dL (70-110)
[2018-04-16 07:37] LABS: Albumin, Serum 2.7 g/dL (3.2-5.0); BUN 20 mg/dL (7-18); BUN/Creat Ratio 6.3 RATIO (10-20); Calcium,Total 8.5 mg/dL (8.5-10.1); Chloride 97 mmol/L (98-107); Creatinine, Serum 3.19 mg/dL (0.55-1.02); EST Glomerular Filtration Rate 15 mL/min (>60); Est Glom Filt Rate - Afr Amer 18 mL/min (>60); Estimated Creatinine Clearance 13.71 ml/min; Glucose 100 mg/dL (74-106); Phosphorus 3.7 mg/dL (2.5-4.9); Potassium 4.1 mmol/L (3.5-5.1); Sodium Level 137 mmol/L (136-145)
[2018-04-16 08:23] LABS: Absolute Lymphocyte Count 0.99 X10^3/ul (0.83-4.51); Absolute Neutrophil Count 1.7 X10^3/uL (2.0-7.7); Basophil# 0.02 X10^3/uL; Basophil% 0.6 % (0-1); Eosinophils% 3.1 % (0-5); Hemoglobin 9.6 g/dl (12.0-15.0); Lymphocyte # 0.99 X10^3/ul (4.0); Lymphocyte % 30.7 % (19-41); Mean Corp Hgb Conc 29.1 g/gl (32-36); Mean Corpuscular Hgb 28.2 pg (27.0-32.0); Mean Corpuscular Volume 96.8 fL (81-99); Mean Platelet Vol. 10.7 fl (6.2-12.0); Monocyte# 0.41 X10^3/uL; Monocyte% 12.7 % (0-10); Neutrophil % 52.9 % (47-70); Platelet Count 105 K/mm3 (150-450); RBC Distribution Width CV 20.6 % (11.6-14.6); Red Blood Count 3.41 M/mm3 (4.2-5.4); White Blood Count 3.2 K/mm3 (4.4-11.0)
[2018-04-16 08:26] LABS: Differential Indicated SCAN CRITERIA MET; POSITIVE COUNT NO; POSITIVE DIFFERENTIAL NO; POSITIVE MORPHOLOGY YES
[2018-04-16 09:12] VITALS: BP 146/57; PULSE 72; RESP 20; TEMP 36.5; O2SAT 94
[2018-04-16] MEDS: Pantoprazole Sodium 40 MG Tablet PO (09:14)
[2018-04-16] MEDS: Isosorbide Mononitrate 30 MG Tablet PO (09:14)
[2018-04-16] MEDS: Carvedilol 12.5 MG Tablet PO (09:14)
[2018-04-16] MEDS: Calcium Acetate 667 MG Capsule 2001 MG PO ×2 (09:14→12:13)
[2018-04-16] MEDS: Losartan Potassium 50 MG Tablet PO (09:14)
[2018-04-16] MEDS: Folic Acid/Vitamin B Comp W-C 1 Capsule 1 CAP PO (09:15)
[2018-04-16 09:35] LABS: Anisocytosis 2+; Differential Comment SCANNED
[2018-04-16 09:36] LABS: Hypochromasia 1+; Macrocytosis 1+; Microcytosis 1+
[2018-04-16 12:02] LABS: Pathologist Comment/Body Fluid Reviewed
[2018-04-16 12:40] LABS: Bedside Glucose 130 mg/dL (70-110)
--- NOTE | 2018-04-16 13:08 | PCM.PN.BLA ---
Progress Note Potassium improved. VSS Ok to dc to ECF from renal standpoint.
--- NOTE | 2018-04-16 14:14 | PCM.TXEXTCAR ---
- Diet 04/15/18 11:33 Diet: Fluid Restriction Is pt able to select menu?: No Diet Comments: ADA 1800/renal diet 1500 cc total fluid restriction Fluid restriction:: 1500 mL - Wound(s) rt lower abd Wound Type: paracentisis site - Allergies/Procedures Done in Hospital Allergies/Adverse Reactions: Allergies lisinopril Allergy (Verified 04/12/18 22:09) Swelling nebivolol HCl [From Bystolic] Adverse Reaction (Verified 04/12/18 22:09) bradycardia BRADYCARDIA - Type of Care/Length of Stay Estimated LOS: Convalescent Care Less Than 30 days Type of Care Needed: Skilled Rehab Potential: Good Prognosis: Good - Additional Orders/Day of Discharge Day of Discharge: 04/16/18 - Dietary and Speech Recommendations Dietitian Recommendations/Changes: Suggest diet change to 2000 ania/renal/80 gm protein. - Follow Up Care Primary Care Physician: Allie Lund DO [Primary Care Provider] - Please follow up with your Primary Care Physician in: In 3-5 days
--- NOTE | 2018-04-16 14:15 | PCM.DC.SUM ---
Discharge Date and Diagnosis Date of Admission: 04/12/18 Date of Discharge: 04/16/18 - Secondary Discharge Diagnosis Chronic Problems (Last Reviewed 08/21/17 @ 14:33 by Pat Gomez) Fracture of fifth metatarsal bone of right foot (Chronic) Other specified peripheral vascular diseases (Chronic) Afib (Chronic) Congenital coronary artery anomaly (Chronic) S/P PTCA (percutaneous transluminal coronary angioplasty) (Chronic) NSTEMI (non-ST elevated myocardial infarction) (Chronic) Bradycardia (Chronic) CAD (coronary artery disease) (Chronic) Diabetes mellitus, type II (Chronic) Hyperlipidemia (Chronic) Hypothyroidism (Chronic) Anemia in chronic kidney disease (Chronic) Hypertension (Chronic) End stage renal disease on dialysis (Chronic) Hospital Course and Treatment Imaging Results: CXR: IMPRESSION: Decrease inspiratory effort with stable cardiomegaly. There is no other interval change. Hand Xr: IMPRESSION: 1. Degenerative osteoarthrosis of the carpometacarpal articulation of the right thumb. 2. No acute osseous abnormality of the right hand. Humerus Xr: IMPRESSION: Normal x-ray examination of the right humerus. Shoulder Xr: IMPRESSION: Degenerative arthrosis of the right shoulder. CT Abd/Pelvis: IMPRESSION: 1. Ascites and anasarca. 2. Bilateral renal atrophy from known chronic renal failure. 3. Small hiatal hernia. 4. Subsegmental atelectases in the bibasilar region. 5. Small left posterior pleural fluid. 6. Cardiomegaly. 7. No suspicious mass or acute abnormality in the abdomen and pelvis. 8. Increased ascites and persistent anasarca when compared to 12/26/2017. Consultations: Nephrology 04/12/18 22:22 Consult: Onc/Wound/manager school Routine Comment: Operations: None, - Procedures: Paracentesis - The risks, benefits, and alternatives to the procedure were explained to the patient. The specific risks of bleeding, infection, and damage to bowel were detailed and accepted. Witnessed informed consent was obtained. The abdomen was ultrasonographically surveyed. An appropriate pocket of fluid was identified at the right lower quadrant. The skin were cleaned and prepped in the usual sterile fashion. Using ultrasound guidance, the peritoneal cavity was accessed with a 5-Sami paracentesis needle/catheter system. The trocar was removed. A total of 4070 ml of blood-tinged fluid were removed from the peritoneal cavity. A 120 mL sample of the fluid was sent to laboratory for analysis. The catheter was removed and a sterile dressing was applied. The procedure was well tolerated. Summary of Care Provided: Per HPI: The patient is a 73 y/o F w/ PMHx: Chronic Hypoxic Respiratory Failure, CAD s/p NSTEMI and PCI, Diastolic CHF, Obesity, HTN, HLD, Obesity, AOCD, Diabetes mellitus type II, Chronic Atrial Flutter, ESRD on HD who presents to the [facility] ED on 04/12/18 with history of ongoing severe weakness, generalized fatigue w/ near fall x 2 over the past 48-72 hours, noted upon presentation to dialysis to be above her dry weight by 7 kg, weak and nearly falling from the vehicle while attempting to walk into HD. She denies any recent fever, chills, nausea, emesis, abdominal pain, change in bowel pattern (chronic constipation w/ bowel regimen usage). HD called ED secondary to the severity of her weakness, noted to following HD having to use the tk lift. In the ED work-up included T 97.3, heart rate 78, BP 147/51, respiratory rate 16, 95% on room air, CBC with WBC 2.3, hemoglobin 11, platelet 131 without left shift, BMP with sodium 131, potassium 5.3, chloride 93, BUN/creatinine 34/2.77, glucose 120, analysis not market appearing, chest x-ray with decreased inspiratory effort with stable cardiomegaly otherwise with no acute findings. Vital Signs - 24 hr Temp Pulse Resp BP Pulse Ox 04/16/18 09:12 97.7 F L 72 20 H 146/57 H 94 04/16/18 03:56 98.8 F 70 14 160/68 H 97 04/15/18 23:25 98.2 F 71 16 147/46 H 100 04/15/18 19:00 98.8 F 66 20 H 133/58 H 04/15/18 15:53 98.8 F 66 16 134/49 H 92 General: Alert, Oriented x3, Cooperative, No apparent distress HEENT: Atraumatic, EOMI, Normocephalic Oral: Moist Mucosa Neck: Supple, No JVD Lungs: Clear to auscultation, Normal air movement, No rhonchi, No wheeze, No rales Cardiovascular: Regular rate, Regular Rhythm, Normal S1, Normal S2, No murmurs Abdomen: Soft, Non Tender, No Hepato-splenomegaly, Distended Extremities: No edema, Capillary Refill Less than 3 Seconds Skin: No rashes, No breakdown Neurological: Neuro grossly intact, Sensory exam intact to light touch and pain Psych/Mental Status: Normal Affect, Appropriate Hospital Course: 1. Mechanical falls and debility/ESRD/Chronic dCHF/Hyperkalemia (reolved)/Hyponatremia (resolved)/HTN/HLD/CAD s/p stent - She presented with debility and weakness and suffered a fall outside of her home. This led to the RUE skeletal xrays which were all unremarkable. She was found to be hyperkalemic and, per her computer forensic specialist, she is not very compliant with her medications and diet for dialysis. After she had dialysis on Sunday she began to feel better as her creatinine improved and her hyperkalemia resolved. PT/OT evaluated and felt that she would be suitable for rehab at a SNF. She is to continue with her dialysis on MWF and to continue most of her home medications. I did discontinue her flexeril, as it is sedating and may have contributed to her fall. She is on quite a lot of medications and if we can start to reduce the number, she will be better off. 2. Ascites - Her LFTs were normal except for her alk phos is elevated to 234 on discharge, which is down from admission of 289. Unsure of the etiology. She had a paracentesis and the fluid was unremarkable and did not point to a source. C/w lactulose. 3. Her other diagnoses were evaluated and her medications were continued where appropriate. C/w O2 of 2L NC at night. - Physical Exam Vital Signs Temp Pulse Resp BP Pulse Ox 97.7 F L 72 20 H 146/57 H 94 04/16/18 09:12 04/16/18 09:12 04/16/18 09:12 04/16/18 09:12 04/16/18 09:12 Oxygen Flow Rate (L/min) 4 Oxygen Delivery Method [2] Room Air Oxygen Delivery Method [1 ( Room Air Initial Baseline)] Oxygen Delivery Method Room Air Weight: 182 lb 5.156 oz Body Mass Index (BMI) 32.3 Finger Stick Blood Glucose 99 Intake and Output for Last 24 Hours 04/14/18 04/15/18 04/16/18 23:59 23:59 23:59 Intake Total 400 / 400 240 / 240 350 / 350 Output Total 8143 / 8143 Balance 400 / 400 -7903 / -7903 350 / 350 Laboratory Tests Past 24 Hrs 04/15/18 04/16/18 04/16/18 10:00 05:57 05:57 WBC 3.2 L RBC 3.41 L Hgb 9.6 L Hct 33.0 L MCV 96.8 MCH 28.2 MCHC 29.1 L RDW 20.6 H RDW Differential 70.0 H Plt Count 105 L MPV 10.7 Immature Gran % (Auto) 0.000 Neut % (Auto) 52.9 Lymph % (Auto) 30.7 [place] % (Auto) 12.7 H Eos % (Auto) 3.1 Baso % (Auto) 0.6 Absolute Neuts (auto) 1.7 L Absolute Lymphs (auto) 0.99 Total Counted Not Reportable Differential Comment SCANNED Hypochromasia 1+ Anisocytosis 2+ Microcytosis 1+ Macrocytosis 1+ Sodium 137 Potassium 4.1 Chloride 97 L Carbon Dioxide 31.0 BUN 20 H Creatinine 3.19 H Estim Creat Clear Calc 13.71 Est GFR (MDRD) Af Amer 18 L Est GFR (MDRD) Non-Af 15 L BUN/Creatinine Ratio 6.3 L Glucose 100 Calcium 8.5 Phosphorus 3.7 Albumin 2.7 L Fl Pathologist Comment Reviewed POC Glucose 04/16/18 04/16/18 04/15/18 12:10 07:04 23:02 POC Glucose 130 H 90 128 H 04/15/18 17:25 POC Glucose 165 H Home Medications: Medications to take at Discharge Cholecalciferol (Vitamin D3) [Vitamin D3] 5,000 unit PO MOWEFR 07/27/17 Gabapentin [Neurontin] 100 mg PO TID 07/27/17 pantoprazole 40 mg tablet,delayed release 40 mg PO QDAY 08/21/17 promethazine 12.5 mg tablet 12.5 mg PO Q6H PRN 08/21/17 vitamin B complex and vitamin C no.20-folic acid 1 mg capsule 1 cap PO QDAY 08/21/17 Atorvastatin Calcium [Lipitor] 80 mg PO QHS 12/26/17 Carvedilol 12.5 mg PO BID 12/26/17 Docusate Calcium [Stool Softener] 240 mg PO BID 12/26/17 Doxazosin Mesylate 8 mg PO QHS 12/26/17 Insulin Detemir [Levemir] 10 unit SQ QHS 12/26/17 Insulin Lispro Protamin/Lispro [Humalog Mix 50-50 Kwikpen] See Protocol SQ .COMPLEX 12/26/17 Lactulose [Chronulac] 40 ml PO DAILY PRN 12/26/17 Losartan Potassium [Cozaar] 50 mg PO BID 12/26/17 Sevelamer Carbonate [Renvela] 1,600 mg PO TIDCM 12/26/17 Acetaminophen [Tylenol] 500 mg PO Q6H PRN PRN #10 tablet 02/14/18 Aspirin E.C. [Ecotrin] 81 mg PO DAILY@0800 #1 02/14/18 Clopidogrel Bisulfate [Plavix] 75 mg PO DAILY #1 02/14/18 Calcium Acetate 2,001 mg PO TID 04/12/18 Isosorbide Mononitrate [Isosorbide Mononitrate ER] 30 mg PO BID 04/12/18 Ropinirole HCl [Requip] 0.5 mg PO QHS 04/12/18 Oxycodone HCl/Acetaminophen [Oxycodon-Acetaminophen 7.5-325] 1 tab PO Q6H PRN PRN 3 Days #15 tab 04/16/18 Following Prescrptions Were Given to Patient: Oxycodone HCl/Acetaminophen [Oxycodon-Acetaminophen 7.5-325] 1 tab PO Q6H PRN PRN 3 Days #15 tab PRN Reason: Pain Primary Care Physician: Allie Lund DO [Primary Care Provider] - Please follow up with your Primary Care Physician in: In 3-5 days Disposition: Group Home facility Minutes spent on discharge:: 35 Patient Condition:: Good Medical Necessity - Tobacco Use Smoking Status: Former smoker Tobacco Use: Non-smoker Meaningful Use Info Meaningful Use Diagnoses (Choose all that apply): None applicable Code Visit Inpatient E&M: 33644 Disch Hosp
--- NOTE | 2018-04-16 14:30 | DS.PCM_ITS ---
Discharge Date and Diagnosis Date of Admission: 04/12/18 Date of Discharge: 04/16/18 - Secondary Discharge Diagnosis Chronic Problems (Last Reviewed 08/21/17 @ 14:33 by Pat Gomez) Fracture of fifth metatarsal bone of right foot (Chronic) Other specified peripheral vascular diseases (Chronic) Afib (Chronic) Congenital coronary artery anomaly (Chronic) S/P PTCA (percutaneous transluminal coronary angioplasty) (Chronic) NSTEMI (non-ST elevated myocardial infarction) (Chronic) Bradycardia (Chronic) CAD (coronary artery disease) (Chronic) Diabetes mellitus, type II (Chronic) Hyperlipidemia (Chronic) Hypothyroidism (Chronic) Anemia in chronic kidney disease (Chronic) Hypertension (Chronic) End stage renal disease on dialysis (Chronic) Hospital Course and Treatment Imaging Results: CXR: IMPRESSION: Decrease inspiratory effort with stable cardiomegaly. There is no other interval change. Hand Xr: IMPRESSION: 1. Degenerative osteoarthrosis of the carpometacarpal articulation of the right thumb. 2. No acute osseous abnormality of the right hand. Humerus Xr: IMPRESSION: Normal x-ray examination of the right humerus. Shoulder Xr: IMPRESSION: Degenerative arthrosis of the right shoulder. CT Abd/Pelvis: IMPRESSION: 1. Ascites and anasarca. 2. Bilateral renal atrophy from known chronic renal failure. 3. Small hiatal hernia. 4. Subsegmental atelectases in the bibasilar region. 5. Small left posterior pleural fluid. 6. Cardiomegaly. 7. No suspicious mass or acute abnormality in the abdomen and pelvis. 8. Increased ascites and persistent anasarca when compared to 12/26/2017. Consultations: Nephrology 04/12/18 22:22 Consult: Onc/Wound/thiokol operator Routine Comment: Operations: None, - Procedures: Paracentesis - The risks, benefits, and alternatives to the procedure were explained to the patient. The specific risks of bleeding, infection, and damage to bowel were detailed and accepted. Witnessed informed consent was obtained. The abdomen was ultrasonographically surveyed. An appropriate pocket of fluid was identified at the right lower quadrant. The skin were cleaned and prepped in the usual sterile fashion. Using ultrasound guidance, the peritoneal cavity was accessed with a 5-Telugu paracentesis needle/catheter system. The trocar was removed. A total of 4070 ml of blood-tinged fluid were removed from the peritoneal cavity. A 120 mL sample of the fluid was sent to laboratory for analysis. The catheter was removed and a sterile dressing was applied. The procedure was well tolerated. Summary of Care Provided: Per HPI: The patient is a 73 y/o F w/ PMHx: Chronic Hypoxic Respiratory Failure, CAD s/p NSTEMI and PCI, Diastolic CHF, Obesity, HTN, HLD, Obesity, AOCD, Diabetes mellitus type II, Chronic Atrial Flutter, ESRD on HD who presents to the [facility] ED on 04/12/18 with history of ongoing severe weakness, generalized fatigue w/ near fall x 2 over the past 48-72 hours, noted upon presentation to dialysis to be above her dry weight by 7 kg, weak and nearly falling from the vehicle while attempting to walk into HD. She denies any recent fever, chills, nausea, emesis, abdominal pain, change in bowel pattern (chronic constipation w/ bowel regimen usage). HD called ED secondary to the severity of her weakness, noted to following HD having to use the tk lift. In the ED work-up included T 97.3, heart rate 78, BP 147/51, respiratory rate 16, 95% on room air, CBC with WBC 2.3, hemoglobin 11, platelet 131 without left shift, BMP with sodium 131, p otassium 5.3, chloride 93, BUN/creatinine 34/2.77, glucose 120, analysis not market appearing, chest x-ray with decreased inspiratory effort with stable cardiomegaly otherwise with no acute findings. Vital Signs - 24 hr Temp Pulse Resp BP Pulse Ox 04/16/18 09:12 97.7 F L 72 20 H 146/57 H 94 04/16/18 03:56 98.8 F 70 14 160/68 H 97 04/15/18 23:25 98.2 F 71 16 147/46 H 100 04/15/18 19:00 98.8 F 66 20 H 133/58 H 04/15/18 15:53 98.8 F 66 16 134/49 H 92 General: Alert, Oriented x3, Cooperative, No apparent distress HEENT: Atraumatic, EOMI, Normocephalic Oral: Moist Mucosa Neck: Supple, No JVD Lungs: Clear to auscultation, Normal air movement, No rhonchi, No wheeze, No rales Cardiovascular: Regular rate, Regular Rhythm, Normal S1, Normal S2, No murmurs Abdomen: Soft, Non Tender, No Hepato-splenomegaly, Distended Extremities: No edema, Capillary Refill Less than 3 Seconds Skin: No rashes, No breakdown Neurological: Neuro grossly intact, Sensory exam intact to light touch and pain Psych/Mental Status: Normal Affect, Appropriate Hospital Course: 1. Mechanical falls and debility/ESRD/Chronic dCHF/Hyperkalemia (reolved)/Hyponatremia (resolved)/HTN/HLD/CAD s/p stent - She presented with d ebility and weakness and suffered a fall outside of her home. This led to the RUE skeletal xrays which were all unremarkable. She was found to be hyperkalemic and, per her puff iron operator, she is not very compliant with her medications and diet for dialysis. After she had dialysis on Sunday she began to feel better as her creatinine improved and her hyperkalemia resolved. PT/OT evaluated and felt that she would be suitable for rehab at a SNF. She is to continue with her dialysis on MWF and to continue most of her home medications. I did discontinue her flexeril, as it is sedating and may have contributed to her fall. She is on quite a lot of medications and if we can start to reduce the number, she will be better off. 2. Ascites - Her LFTs were normal except for her alk phos is elevated to 234 on discharge, which is down from admission of 289. Unsure of the etiology. She had a paracentesis and the fluid was unremarkable and did not point to a source. C/w lactulose. 3. Her other diagnoses were evaluated and her medications were continued where appropriate. C/w O2 of 2L NC at night. - Physical Exam Vital Signs Temp Pulse Resp BP Pulse Ox 97.7 F L 72 20 H 146/57 H 94 04/16/18 09:12 04/16/18 09:12 04/16/18 09:12 04/16/18 09:12 04/16/18 09:12 Oxygen Flow Rate (L/min) 4 Oxygen Delivery Method [2] Room Air Oxygen Delivery Method [1 ( Room Air Initial Baseline)] Oxygen Delivery Method Room Air Weight: 182 lb 5.156 oz Body Mass Index (BMI) 32.3 Finger Stick Blood Glucose 99 Intake and Output for Last 24 Hours 1104/15/18 04/16/18 23:59 23:59 23:59 Intake Total 400 / 400 240 / 240 350 / 350 Output Total 8143 / 8143 Balance 400 / 400 -7903 / -7903 350 / 350 Laboratory Tests Past 24 Hrs 04/15/18 04/16/18 04/16/18 10:00 05:57 05:57 WBC 3.2 L RBC 3.41 L Hgb 9.6 L Hct 33.0 L MCV 96.8 MCH 28.2 MCHC 29.1 L RDW 20.6 H RDW Differential 70.0 H Plt Count 105 L MPV 10.7 Immature Gran % (Auto) 0.000 Neut % (Auto) 52.9 Lymph % (Auto) 30.7 [place] % (Auto) 12.7 H Eos % (Auto) 3.1 Baso % (Auto) 0.6 Absolute Neuts (auto) 1.7 L Absolute Lymphs (auto) 0.99 Total Counted Not Reportable Differential Comment SCANNED Hypochromasia 1+ Anisocytosis 2+ Microcytosis 1+ Macrocytosis 1+ Sodium 137 Potassium 4.1 Chloride 97 L Carbon Dioxide 31.0 BUN 20 H Creatinine 3.19 H Estim Creat Clear Calc 13.71 Est GFR (MDRD) Af Amer 18 L Est GFR (MDRD) Non-Af 15 L BUN/Creatinine Ratio 6.3 L Glucose 100 Calcium 8.5 Phosphorus 3.7 Albumin 2.7 L Fl Pathologist Comment Reviewed POC Glucose 04/16/18 04/16/18 04/15/18 12:10 07:04 23:02 POC Glucose 130 H 90 128 H 04/15/18 17:25 POC Glucose 165 H Home Medications: Medications to take at Discharge Cholecalciferol (Vitamin D3) [Vitamin D3] 5,000 unit PO MOWEFR 07/27/17 Gabapentin [Neurontin] 100 mg PO TID 07/27/17 pantoprazole 40 mg tablet,delayed release 40 mg PO QDAY 08/21/17 promethazine 12.5 mg tablet 12.5 mg PO Q6H PRN 08/21/17 vitamin B complex and vitamin C no.20-folic acid 1 mg capsule 1 cap PO QDAY 08/21/17 Atorvastatin Calcium [Lipitor] 80 mg PO QHS 12/26/17 Carvedilol 12.5 mg PO BID 12/26/17 Docusate Calcium [Stool Softener] 240 mg PO BID 12/26/17 Doxazosin Mesylate 8 mg PO QHS 12/26/17 Insulin Detemir [Levemir] 10 unit SQ QHS 12/26/17 Insulin Lispro Protamin/Lispro [Humalog Mix 50-50 Kwikpen] See Protocol SQ .COMPLEX 12/26/17 Lactulose [Chronulac] 40 ml PO DAILY PRN 12/26/17 Losartan Potassium [Cozaar] 50 mg PO BID 12/26/17 Sevelamer Carbonate [Renvela] 1,600 mg PO TIDCM 12/26/17 Acetaminophen [Tylenol] 500 mg PO Q6H PRN PRN #10 tablet 02/14/18 Aspirin E.C. [Ecotrin] 81 mg PO DAILY@0800 #1 02/14/18 Clopidogrel Bisulfate [Plavix] 75 mg PO DAILY #1 02/14/18 Calcium Acetate 2,001 mg PO TID 04/12/18 Isosorbide Mononitrate [Isosorbide Mononitrate ER] 30 mg PO BID 04/12/18 Ropinirole HCl [Requip] 0.5 mg PO QHS 04/12/18 Oxycodone HCl/Acetaminophen [Oxycodon-Acetaminophen 7.5-325] 1 tab PO Q6H PRN PRN 3 Days #15 tab 04/16/18 Following Prescrptions Were Given to Patient: Oxycodone HCl/Acetaminophen [Oxycodon-Acetaminophen 7.5-325] 1 tab PO Q6H PRN PRN 3 Days #15 tab PRN Reason: Pain Primary Care Physician: Allie Lund DO [Primary Care Provider] - Please follow up with your Primary Care Physician in: In 3-5 days Disposition: Long Term facility Minutes spent on discharge:: 35 Patient Condition:: Good Medical Necessity - Tobacco Use Smoking Status: Former smoker Tobacco Use: Non-smoker Meaningful Use Info Meaningful Use Diagnoses (Choose all that apply): None applicable Code Visit Inpatient E&M: 09231 Disch Hosp
--- NOTE | 2018-04-16 15:20 | CASEMGMT ---
Addendum entered by Matilde Burton 04/16/18 16:20: SW placed a call to Candelaria at [facility] and left her a message informing her of transportation time Original Note: Social Work: TC to [facility]. van Transport scheduled for 3:00pm. Transfer orders, med list, and RX faxed to Candelaria at [facility]. PLAN: Patient will be discharged to [facility] today at 3:00pm. MANDY Jack
== END 2018-04-16 14:56 | disposition skilled nursing facility (03) | DRG 291 ==
LOC: ED 19:11 → MS3 21:42
PROVIDERS: Internal Medicine Nephrology; Student in an Organized Health Care Education/Training Program; Admitting Provider Family Medicine; Emergency Provider Emergency Medicine; Family Provider Internal Medicine; PCP Internal Medicine; Visit Provider Family Medicine
DX: I13.2 Hypertensive heart and chronic kidney disease with heart failure and with stage 5 chronic kidney disease, or end stage renal disease (principal); N18.6 End stage renal disease; J96.11 Chronic respiratory failure with hypoxia; I48.92 Unspecified atrial flutter; I50.32 Chronic diastolic (congestive) heart failure; R18.8 Other ascites; D61.818 Other pancytopenia; E87.1 Hypo-osmolality and hyponatremia; Z99.81 Dependence on supplemental oxygen; I25.10 Atherosclerotic heart disease of native coronary artery without angina pectoris; E78.5 Hyperlipidemia, unspecified; Z99.2 Dependence on renal dialysis; E87.5 Hyperkalemia; R53.81 Other malaise; E11.22 Type 2 diabetes mellitus with diabetic chronic kidney disease; M79.601 Pain in right arm; K21.9 Gastro-esophageal reflux disease without esophagitis; M19.011 Primary osteoarthritis, right shoulder; Z79.82 Long term (current) use of aspirin; Z79.02 Long term (current) use of antithrombotics/antiplatelets; Z79.4 Long term (current) use of insulin; E03.9 Hypothyroidism, unspecified; Z87.891 Personal history of nicotine dependence; I25.2 Old myocardial infarction; Z91.81 History of falling; Z79.899 Other long term (current) drug therapy; Z95.5 Presence of coronary angioplasty implant and graft; D63.1 Anemia in chronic kidney disease; E66.9 Obesity, unspecified; Z68.32 Body mass index [BMI] 32.0-32.9, adult
CPT/HCPCS: 36415; 49083; 71045; 73030; 73060; 73130; 74176; 80048; 80053; 80069; 80076; 81001; 82945; 82962; 83615; 83735; 84100; 84132; 84157; 85025; 85610; 85730; 88108; 88305; 88313; 89050; 90937; 93005; 97110; 97162; 97166; 97530; 97535; 97802; 99285; J7040; A4216; G0257; J2405

== ENCOUNTER 2018-05-10 16:52 | Inpatient (IN) | payer MEDICARE, OTHER, MEDICAID, SELFPAY ==
[2017-11-22 13:23] VITALS: BMI 27.1
[2018-05-10] VITALS (8 sets, daily range): BP systolic 102–140; BP diastolic 40–67; PULSE 66–72; RESP 16–20; TEMP 36.4–36.9; O2SAT 96–99; BMI 33.1; BMI 31.6
--- NOTE | 2018-05-10 17:38 | ED.VISSUMM ---
- ER Visit Summary Date of Service: 05/10/18 Chief Complaint: Hemoglobin low, GI bleed History of Present Illness: The patient is a 73 F who was at dialysis when they checked her hemoglobin it was 6.7. It was 8 last week. Patient states she has been having bright red blood per rectum for the last week. It was worse last night. She feels lightheaded when she stands up. She has a GI doctor up in [place]. She has not seen a GI doctor or surgeon here locally. She denies any abdominal pain. Physical Examination: Vital signs reviewed. HEENT exam unremarkable. Heart is regular rate and rhythm without murmurs. Lungs are clear to auscultation. Abdomen is soft and nontender. Extremities reveal no edema. Skin exam normal. Neurologic exam normal. Test Results: Hemoglobin 6.9 chloride 96, creatinine 2. INR 1.2 and PTT 27.3 Emergency Department Course and Treatment: I discussed with Dr. Sinclair who would be willing to see the patient. She will likely need colonoscopy. Patient was given 1 unit of packed red blood cells. She will be admitted to the hospital Treatment Plan: [] Disposition: Admit Impression: GI bleed, acute blood loss anemia This note was generated with Net[employer]iate dictation software. It may contain incorrect words, spelling, and punctuation that were not noted in review of the chart prior to signing ED Disposition - Plan for ED Patient: Chief Complaint: Abn Labs Referrals: Allie Lund DO [Primary Care Provider] -
--- NOTE | 2018-05-10 18:05 | NURSING ---
BLOOD BANK TOO SHORT, LAB WILL REPRINT LABELS
[2018-05-10 18:11] LABS: Absolute Lymphocyte Count 0.57 X10^3/ul (0.83-4.51); Absolute Neutrophil Count 0.7 X10^3/uL (2.0-7.7); Basophil# 0.03 X10^3/uL; Basophil% 1.9 % (0-1); Eosinophil# 0.05 X10^3/uL; Eosinophils% 3.2 % (0-5); Hematocrit 23.1 % (37-47); Hemoglobin 6.9 g/dl (12.0-15.0); Lymphocyte # 0.57 X10^3/ul (4.0); Lymphocyte % 36.8 % (19-41); Mean Corp Hgb Conc 29.9 g/gl (32-36); Mean Corpuscular Hgb 27.4 pg (27.0-32.0); Mean Corpuscular Volume 91.7 fL (81-99); Monocyte# 0.19 X10^3/uL; Monocyte% 12.3 % (0-10); Neutrophil # 0.71 X10^3/uL (2.7-7.7); Neutrophil % 45.8 % (47-70); Platelet Count 92 K/mm3 (150-450); RBC Distribution Width CV 18.4 % (11.6-14.6); RBC Distribution Width SD 61.9 fl (35.1-43.9); Red Blood Count 2.52 M/mm3 (4.2-5.4); White Blood Count 1.6 K/mm3 (4.4-11.0)
[2018-05-10 18:12] LABS: Differential Indicated SCAN CRITERIA MET; International Normalized Ratio 1.2; POSITIVE COUNT NO; POSITIVE DIFFERENTIAL YES; POSITIVE MORPHOLOGY NO; Partial Thromboplast Time 27.3 Seconds (24.1-36.2); Prothrombin Time (Protime)PT. 15.5 SECONDS (11.7-14.9)
[2018-05-10 18:17] LABS: Anion Gap 10 (5-15); BUN 15 mg/dL (7-18); BUN/Creat Ratio 7.5 RATIO (10-20); Calcium,Total 7.7 mg/dL (8.5-10.1); Chloride 96 mmol/L (98-107); EST Glomerular Filtration Rate 26 mL/min (>60); Est Glom Filt Rate - Afr Amer 31 mL/min (>60); Estimated Creatinine Clearance 21.87 ml/min; Glucose 86 mg/dL (74-106); Potassium 3.8 mmol/L (3.5-5.1); Sodium Level 138 mmol/L (136-145)
--- NOTE | 2018-05-10 20:08 | PCM.HP.STD ---
Problem List (1) Abnormal laboratory test Status: Acute History of Present Illness Date of Admission: 05/10/18 Chief Complaint: Abnormal labs The patient is a 73 year old F was seen in the emergency room at [facility] after lab work at dialysis today showed that her hemoglobin was low at 6.7. Her hemoglobin was checked this past Sunday and the result was 8.7. Patient is a poor informant, most of the times when asked questions she states I do not know. Patient tells me she underwent an EGD and a colonoscopy at [facility], she thinks it was December of this year but she does not know what the result was and she does not know why she underwent the procedure. According to her medical record here at the hospital, patient was sent in from hemodialysis on 01/19/18 for abdominal pain and dark stool, her hemoglobin at that time was 8.4 and she was transferred to [facility] for further care at that time. It appears from the patient's medical record here at the hospital that she was hospitalized in March 2018 and she was sent to a half-way facility at that time. Patient tells me she is living at [facility] at this time. Patient does not complain of any shortness of breath or chest pain, she states she has been having rectal bleeding-she told the emergency room physician it started approximately a week ago. Patient denies any abdominal pain or diarrhea. Workup in the emergency room showed the patient have a low white blood cell count at 1.6, hemoglobin was 6.9, platelet count was 92,000. Chemistry profile showed her creatinine to be 2. The emergency room physician saw bright red rectal bleeding when he examined the patient. The emergency room physician contacted general surgery who agreed to see the patient in consultation if the patient was admitted to the hospitalist service. Patient will be admitted to [facility], she was placed on a full liquid diet, serial H&H's will be obtained, the emergency room physician ordered 1 unit of packed red blood cells for the patient, she will need to be seen by general surgery and nephrology since she is a end-stage renal disease patient. Past Medical History Past Medical History (Chronic Problems): Chronic Problems (Last Reviewed 08/21/17 @ 14:33 by Pat Gomez) Fracture of fifth metatarsal bone of right foot (Chronic) Other specified peripheral vascular diseases (Chronic) Afib (Chronic) Congenital coronary artery anomaly (Chronic) S/P PTCA (percutaneous transluminal coronary angioplasty) (Chronic) NSTEMI (non-ST elevated myocardial infarction) (Chronic) Bradycardia (Chronic) CAD (coronary artery disease) (Chronic) Diabetes mellitus, type II (Chronic) Hyperlipidemia (Chronic) Hypothyroidism (Chronic) Anemia in chronic kidney disease (Chronic) Hypertension (Chronic) End stage renal disease on dialysis (Chronic) Medical History: Medical History (Last Reviewed 08/21/17 @ 14:33 by Pat Gomez) Fracture of fifth metatarsal bone of right foot (Chronic) S92.351A Fall (Acute) W19.XXXA Gait instability (Acute) R26.81 Other specified peripheral vascular diseases (Chronic) I73.89 Pain in right ankle and joints of right foot (Acute) M25.571 Ileus (Acute) K56.7 Afib (Chronic) I48.91 Congenital coronary artery anomaly (Chronic) Q24.5 Unstable angina pectoris (Acute) NSTEMI (non-ST elevated myocardial infarction) (Chronic) I21.4 Hyperkalemia (Acute) E87.5 Chest pressure (Acute) R07.89 Bradycardia (Chronic) R00.1 CAD (coronary artery disease) (Chronic) I25.10 Diabetes mellitus, type II (Chronic) E11.9 Hyperlipidemia (Chronic) E78.5 Hypothyroidism (Chronic) E03.9 Anemia in chronic kidney disease (Chronic) N18.9, D63.1 Hypertension (Chronic) I10 End stage renal disease on dialysis (Chronic) N18.6, Z99.2 History of hysterectomy Z90.710 Allergies lisinopril Allergy (Verified 05/10/18 17:08) Swelling nebivolol HCl [From Bystolic] Adverse Reaction (Verified 05/10/18 17:08) bradycardia BRADYCARDIA Home Medications: Ambulatory Orders Medication Instructions Recorded Cholecalciferol (Vitamin D3) 5,000 unit PO MOWEFR 07/27/17 [Vitamin D3] Gabapentin [Neurontin] 100 mg PO TID 07/27/17 pantoprazole 40 mg tablet,delayed 40 mg PO QDAY 08/21/17 release promethazine 12.5 mg tablet 12.5 mg PO Q6H PRN 08/21/17 vitamin B complex and vitamin C 1 cap PO QDAY 08/21/17 no.20-folic acid 1 mg capsule Atorvastatin Calcium [Lipitor] 80 mg PO QHS 12/26/17 Carvedilol 12.5 mg PO BID 12/26/17 Docusate Calcium [Stool Softener] 240 mg PO BID 12/26/17 Doxazosin Mesylate 4 mg PO QHS 12/26/17 Insulin Detemir [Levemir] 10 unit SQ QHS 12/26/17 Insulin Lispro Protamin/Lispro See Protocol SQ .COMPLEX 12/26/17 [Humalog Mix 50-50 Kwikpen] Lactulose [Chronulac] 40 ml PO DAILY PRN 12/26/17 Losartan Potassium [Cozaar] 50 mg PO DAILY 12/26/17 Sevelamer Carbonate [Renvela] 3,200 mg PO TIDCM 12/26/17 Aspirin E.C. [Ecotrin] 81 mg PO DAILY@0800 #1 02/14/18 Clopidogrel Bisulfate [Plavix] 75 mg PO DAILY #1 02/14/18 Isosorbide Mononitrate [Isosorbide 30 mg PO BID 04/12/18 Mononitrate ER] Ropinirole HCl [Requip] 0.5 mg PO QHS 04/12/18 Oxycodone HCl/Acetaminophen 1 tab PO 4X/DAY PRN PRN 05/10/18 [Oxycodon-Acetaminophen 7.5-325] Surgical History: Surgical History (Last Updated 08/21/17 @ 14:35 by Pat Gomez) S/P PTCA (percutaneous transluminal coronary angioplasty) (Chronic) Z98.61 History of colectomy Z90.49 History of laparoscopic cholecystectomy Z90.49 History of total right knee replacement Z96.651 Hx of foot surgery Z98.890 history left A-V fistula Surgical History: - - Left upper extremity fistula, cholecystectomy, back surgery, colon resection with history of diverticulitis, hysterectomy, appendectomy, right knee surgery, right total knee replacement, right foot surgery, left knee surgery, left foot surgery, PCI. Psychiatric History: No pertinent psych hx Lives: Group Home Smoking Status: Former smoker Tobacco Use: Non-smoker Alcohol: None Drugs: None - *Family History Maternal Family History: Family History (Last Updated 08/21/17 @ 14:36 by Pat Gomez) Sister Diabetes Hypertension History Items: Cancer - uterine Paternal Family History: Family History (Last Updated 08/21/17 @ 14:36 by Pat Gomez) Sister Diabetes Hypertension History Items: Cancer Sibling Family History: Family History (Last Updated 08/21/17 @ 14:36 by Pat Gomez) Sister Diabetes Hypertension History Items: Diabetes Review of Systems Comment: Review of systems from this patient was unreliable in my estimation, information was obtained from her medical record and some information was obtained from the patient but the reliability is unknown. VTE Information - Inpt Only VTE Present on Admission: No VTE Mechan Device Prophylaxis: SCD's VTE Pharm Prophylaxis ordered?: No Patient Problems: Active and Suspected Problems (Last Reviewed 08/21/17 @ 14:33 by Pat Gomez) Abnormal laboratory test (Acute) - Physical Exam General: Alert, Cooperative, No apparent distress, Well developed, - - Patient is a poor informant HEENT: Atraumatic, PERRLA, EOMI, Normocephalic Oral: Moist Mucosa Neck: Supple, No JVD, Negative Carotid Bruits, No Nuchal Rigidity, Trachea Midline, Thyroid Normal Size and Texture Lungs: Clear to auscultation, Normal air movement, No rhonchi, No wheeze, No rales Cardiovascular: Regular rate, Regular Rhythm, Normal S1, Normal S2, No murmurs, No Ectopic Activity Abdomen: Bowel Sounds Present, Soft, Non Tender, Non-Distended, Obese, No hernias noted Extremities: No clubbing, No cyanosis, No edema, Capillary Refill Less than 3 Seconds Skin: No rashes, No breakdown Neurological: Cranial nerves II-XII grossly intact, Neuro grossly intact, Sensory exam intact to light touch and pain, Coordination normal Psych/Mental Status: Flat Affect, - - Patient answers some questions appropriately Vital Signs Temp Pulse Resp BP Pulse Ox 97.9 F 68 16 102/67 97 05/10/18 17:12 05/10/18 19:06 05/10/18 19:06 05/10/18 19:06 05/10/18 19:06 Oxygen Delivery Method Room Air Weight: 90.3 kg Body Mass Index (BMI) 33.1 Finger Stick Blood Glucose 99 Laboratory Tests Past 24 Hrs 05/10/18 05/10/18 05/10/18 17:50 17:50 17:50 WBC 1.6 L RBC 2.52 L Hgb 6.9 L Hct 23.1 L MCV 91.7 MCH 27.4 MCHC 29.9 L RDW 18.4 H RDW Differential 61.9 H Plt Count 92 L MPV 10.0 Immature Gran % (Auto) 0.000 Neut % (Auto) 45.8 L Lymph % (Auto) 36.8 [place] % (Auto) 12.3 H Eos % (Auto) 3.2 Baso % (Auto) 1.9 H Absolute Neuts (auto) 0.7 L Absolute Lymphs (auto) 0.57 L Total Counted Not Reportable Differential Comment Diff Path Review May foll PT 15.5 H INR 1.2 APTT 27.3 Sodium 138 Potassium 3.8 Chloride 96 L Carbon Dioxide 32.0 Anion Gap 10 BUN 15 Creatinine 2.00 H Estim Creat Clear Calc 21.87 Est GFR (MDRD) Af Amer 31 L Est GFR (MDRD) Non-Af 26 L BUN/Creatinine Ratio 7.5 L Glucose 86 Calcium 7.7 L Blood Type Antibody Screen Crossmatch 05/10/18 05/10/18 17:50 18:50 WBC RBC Hgb Hct MCV MCH MCHC RDW RDW Differential Plt Count MPV Immature Gran % (Auto) Neut % (Auto) Lymph % (Auto) [place] % (Auto) Eos % (Auto) Baso % (Auto) Absolute Neuts (auto) Absolute Lymphs (auto) Total Counted Differential Comment Diff Path Review PT INR APTT Sodium Potassium Chloride Carbon Dioxide Anion Gap BUN Creatinine Estim Creat Clear Calc Est GFR (MDRD) Af Amer Est GFR (MDRD) Non-Af BUN/Creatinine Ratio Glucose Calcium Blood Type Cancelled Pending Antibody Screen Cancelled Pending Crossmatch See Detail Assessment/Plan All Active Problems (Last Reviewed 08/21/17 @ 14:33 by Pat Gomez) Abnormal laboratory test (Acute) Hyperkalemia (Acute) Ascites (Acute) Hypervolemia (Acute) Hypotension (Acute) Fall (Acute) Gait instability (Acute) Pain in right ankle and joints of right foot (Acute) Ileus (Acute) Unstable angina pectoris (Acute) Hyperkalemia (Acute) Chest pressure (Acute) #1 hematochezia-etiology unclear, possibly secondary to diverticular bleed versus hemorrhoidal bleed-this may be on a backdrop of anemia of chronic disease from her end-stage renal disease. Patient will be admitted to [facility], serial H&H will be obtained, patient will be given 1 unit of packed red blood cells, she will be seen in consultation by general surgery and may have to undergo endoscopy during her admission. #2 pancytopenia-etiology unclear, patient has a history of ascites but no documented history of liver disease, CBC will be repeated in the morning, old CBCs reviewed at [facility] have not showed a white blood cell count as low as the one today. Patient's lowest white blood cell count appears to be on 04/14/18 at 2.3. #3 end-stage renal disease-Dr. Crawley will see the patient, her dialysis days are Sunday, Sunday, and Sunday. #4 coronary artery disease-this appears stable at this time #5 history of atrial flutter #6 chronic diastolic congestive heart failure #7 mild pulmonary hypertension #8 generalized debility #9 hypertension #10 chronic ascites-etiology unclear, this was worked up during her hospitalization at [facility] in March 2018 #11 hyperlipidemia Code Visit Inpatient E&M: 42991 Init Hosp L3
--- NOTE | 2018-05-10 20:17 | NURSING ---
JAIRO requested from the [facility] to be faxed to [facility].
[2018-05-10] MEDS: 0.9% NaCl Peripheral Flush Adult/Peds IV (21:35)
--- NOTE | 2018-05-10 22:20 | NURSING ---
BLOOD TRANSFUSION V/S CHECK TIME ENTERED WRONG SUPPOSED TO BE 2153. VITALS STABLE AND RECORDED AT 2150.
[2018-05-10] MEDS: Acetaminophen 325 MG Tablet 650 MG PO (23:15)
[2018-05-10] MEDS: Pramipexole Di-HCl 0.25 MG Tablet PO (23:16)
[2018-05-10] MEDS: Pantoprazole Sodium 40 MG Tablet PO (23:16)
[2018-05-10] MEDS: Atorvastatin Calcium 80 MG Tablet PO (23:16)
[2018-05-10 23:31] LABS: Bedside Glucose 98 mg/dL (70-110)
[2018-05-11] VITALS (13 sets, daily range): BP systolic 96–140; BP diastolic 41–63; PULSE 62–70; RESP 16; TEMP 36.4–37.2; O2SAT 92–99
[2018-05-11] MEDS: 0.9% NaCl Peripheral Flush Adult/Peds IV ×3 (01:52→05:03)
[2018-05-11] MEDS: HYDROcodone Bitartrate/Apap 5/325 Tablet PO ×4 (01:52→22:37)
[2018-05-11 02:14] LABS: Hematocrit 22.5 % (37-47); Hemoglobin 6.6 g/dl (12.0-15.0)
[2018-05-11 06:51] LABS: Bedside Glucose 104 mg/dL (70-110)
--- NOTE | 2018-05-11 08:32 | PCM.PN.BLA ---
Progress Note 73 y/o F with ESRD due to diabetes, hypertension sent to ER yesterday after dialysis for acute GI bleed with drop in hgb to 6.7g on stat check. Heparin held. She has a history of GI bleed with w/u in the past. Her next dialysis will be scheduled on Sunday due to holiday schedule. PRBC as ordered with GS on consult. She has a history of high fluid gains, hyperkalemia due to poor dietary compliance. She is currently at [facility] for debilitation, weakness. Vitals, oxygenation stable, lytes stable.
[2018-05-11] MEDS: Clopidogrel Bisulfate 75 MG Tablet PO ×2 (08:58→09:01)
[2018-05-11] MEDS: Gabapentin 100 MG Capsule PO ×3 (08:58→16:12)
[2018-05-11] MEDS: Aspirin E.C. 81 MG Tablet PO (08:58)
[2018-05-11] MEDS: Losartan Potassium 50 MG Tablet PO ×2 (09:00→21:59)
[2018-05-11] MEDS: Pantoprazole Sodium 40 MG Tablet PO ×2 (09:00→21:58)
[2018-05-11] MEDS: Carvedilol 12.5 MG Tablet PO ×2 (09:00→21:59)
[2018-05-11] MEDS: Isosorbide Mononitrate 30 MG Tablet PO ×2 (09:00→21:59)
[2018-05-11 10:03] LABS: Absolute Lymphocyte Count 0.79 X10^3/ul (0.83-4.51); Basophil# 0.02 X10^3/uL; Basophil% 0.9 % (0-1); Eosinophil# 0.04 X10^3/uL; Eosinophils% 1.8 % (0-5); Hematocrit 25.8 % (37-47); Hemoglobin 7.8 g/dl (12.0-15.0); Lymphocyte # 0.79 X10^3/ul (4.0); Lymphocyte % 36.4 % (19-41); Mean Corp Hgb Conc 30.2 g/gl (32-36); Mean Corpuscular Hgb 27.1 pg (27.0-32.0); Mean Corpuscular Volume 89.6 fL (81-99); Mean Platelet Vol. 9.3 fl (6.2-12.0); Monocyte# 0.29 X10^3/uL; Monocyte% 13.4 % (0-10); Neutrophil # 1.03 X10^3/uL (2.7-7.7); Neutrophil % 47.5 % (47-70); Platelet Count 72 K/mm3 (150-450); RBC Distribution Width CV 19.6 % (11.6-14.6); RBC Distribution Width SD 64.6 fl (35.1-43.9); Red Blood Count 2.88 M/mm3 (4.2-5.4); White Blood Count 2.2 K/mm3 (4.4-11.0)
[2018-05-11 10:06] LABS: POSITIVE COUNT NO; POSITIVE DIFFERENTIAL NO; POSITIVE MORPHOLOGY NO
--- NOTE | 2018-05-11 10:16 | CON.PCM_ITS ---
Reason for Consult Date of Consultation: 05/11/18 Reason for Consultation: GI bleed History of Present Illness: The patient is a 73 year old F who is noted blood per rectum for the past few days. She states she notes both bright red blood per rectum but also blood mixed within stool. She denies specific abdominal pain. She does note abdominal distention due to recurrent ascites. She is asking when she will get her next paracentesis. Patient apparently had an episode of bleeding in December. She was transferred to [facility]. The patient recalls she had upper and lower endoscopy at that time both of which were negative. I am unable to obtain copies of these procedures currently. it was recommended she be on antiplatelet therapy but I understand the patient is not taking her recommended NOAC patient has a long-standing history of multiple medical issues including coronary disease, dilated cardiomyopathy, renal failure currently on dialysis, ascites requiring paracenteses of unknown etiology but likely degree of malnutrition due to degree of anasarca right picture with cutaneous edema, bilateral pleural effusions and ascites. Hemoglobin has apparently dropped within 1 week 2 g. Last month she had a hemoglobin approximately 10. In the emergency department it was 6.6. she has a degree of pancytopenia both with a depressed white blood cell count and thrombocytopenia. The patient received 1 unit of packed red cells and was increased her hemoglobin to 7.8. She denies hematemesis or epigastric pain. Again she denies true melena but notes blood mixed within the stool. Past Medical History Past Medical History (Chronic Problems): Chronic Problems (Last Reviewed 08/21/17 @ 14:33 by Pat Gomez) Fracture of fifth metatarsal bone of right foot (Chronic) Other specified peripheral vascular diseases (Chronic) Afib (Chronic) Congenital coronary artery anomaly (Chronic) S/P PTCA (percutaneous transluminal coronary angioplasty) (Chronic) NSTEMI (non-ST elevated myocardial infarction) (Chronic) Bradycardia (Chronic) CAD (coronary artery disease) (Chronic) Diabetes mellitus, type II (Chronic) Hyperlipidemia (Chronic) Hypothyroidism (Chronic) Anemia in chronic kidney disease (Chronic) Hypertension (Chronic) End stage renal disease on dialysis (Chronic) Medical History: Medical History (Last Reviewed 08/21/17 @ 14:33 by Pat Gomez) Fracture of fifth metatarsal bone of right foot (Chronic) S92.351A Fall (Acute) W19.XXXA Gait instability (Acute) R26.81 Other specified peripheral vascular diseases (Chronic) I73.89 Pain in right ankle and joints of right foot (Acute) M25.571 Ileus (Acute) K56.7 Afib (Chronic) I48.91 Congenital coronary artery anomaly (Chronic) Q24.5 Unstable angina pectoris (Acute) NSTEMI (non-ST elevated myocardial infarction) (Chronic) I21.4 Hyperkalemia (Acute) E87.5 Chest pressure (Acute) R07.89 Bradycardia (Chronic) R00.1 CAD (coronary artery disease) (Chronic) I25.10 Diabetes mellitus, type II (Chronic) E11.9 Hyperlipidemia (Chronic) E78.5 Hypothyroidism (Chronic) E03.9 Anemia in chronic kidney disease (Chronic) N18.9, D63.1 Hypertension (Chronic) I10 End stage renal disease on dialysis (Chronic) N18.6, Z99.2 History of hysterectomy Z90.710 Allergies lisinopril Allergy (Verified 05/10/18 17:08) Swelling nebivolol HCl [From Bystolic] Adverse Reaction (Verified 05/10/18 17:08) bradycardia BRADYCARDIA Home Medications: Ambulatory Orders Medication Instructions Recorded Cholecalciferol (Vitamin D3) 5,000 unit PO MOWEFR 07/27/17 [Vitamin D3] Gabapentin [Neurontin] 100 mg PO TID 07/27/17 pantoprazole 40 mg tablet,delayed 40 mg PO DAILY 08/21/17 release promethazine 12.5 mg tablet 12.5 mg PO Q6H PRN 08/21/17 vitamin B complex and vitamin C 1 cap PO QDAY 08/21/17 no.20-folic acid 1 mg capsule Atorvastatin Calcium [Lipitor] 80 mg PO QHS 12/26/17 Docusate Calcium [Stool Softener] 240 mg PO BID 12/26/17 Doxazosin Mesylate 4 mg PO DAILY 12/26/17 Insulin Detemir [Levemir] 10 unit SQ QHS 12/26/17 Lactulose [Chronulac] 40 ml PO DAILY PRN 12/26/17 Losartan Potassium [Cozaar] 50 mg PO DAILY 12/26/17 Sevelamer Carbonate [Renvela] 3,200 mg PO TIDCM 12/26/17 Aspirin E.C. [Ecotrin] 81 mg PO DAILY@0800 #1 02/14/18 Clopidogrel Bisulfate [Plavix] 75 mg PO DAILY #1 02/14/18 Isosorbide Mononitrate [Isosorbide 30 mg PO BID 04/12/18 Mononitrate ER] Ropinirole HCl [Requip] 0.5 mg PO QHS 04/12/18 Acetaminophen [Tylenol Extra 500 mg PO Q6H PRN 05/10/18 Strength] Bisacodyl [Dulcolax] 10 mg RECTAL DAILY PRN PRN 05/10/18 Carvedilol 12.5 mg PO BID 05/10/18 Insulin Lispro [Humalog] See Protocol SC TIDCM 05/10/18 Magnesium Hydroxide [Milk Of 30 ml PO DAILY PRN PRN 05/10/18 Magnesia] Mineral Oil 133 ml RC DAILY PRN PRN 05/10/18 Oxycodone HCl/Acetaminophen 1 tab PO Q6H PRN PRN 05/10/18 [Oxycodon-Acetaminophen 7.5-325] Surgical History: Surgical History (Last Updated 08/21/17 @ 14:35 by Pat Gomez) S/P PTCA (percutaneous transluminal coronary angioplasty) (Chronic) Z98.61 History of colectomy Z90.49 History of laparoscopic cholecystectomy Z90.49 History of total right knee replacement Z96.651 Hx of foot surgery Z98.890 history left A-V fistula Surgical History: - - Left upper extremity fistula, cholecystectomy, back surgery, colon resection with history of diverticulitis, hysterectomy, appendectomy, right knee surgery, right total knee replacement, right foot surgery, left knee surgery, left foot surgery, PCI. Psychiatric History: No pertinent psych hx Lives: Detention Smoking Status: Former smoker Tobacco Use: Non-smoker Alcohol: None Drugs: None - *Family History Maternal Family History: Family History (Last Updated 08/21/17 @ 14:36 by Pat Gomez) Sister Diabetes Hypertension History Items: Cancer - uterine Paternal Family History: Family History (Last Updated 08/21/17 @ 14:36 by Pat Gomez) Sister Diabetes Hypertension History Items: Cancer Sibling Family History: Family History (Last Updated 08/21/17 @ 14:36 by Pat Gomez) Sister Diabetes Hypertension History Items: Diabetes Review of Systems Constitutional: Reports: Malaise, Weakness, Fatigue. Denies: Chills, Fever, Weight Change HEENT: Denies: Head Aches, Sinus Congestion, Sinus Drainage Cardiovascular: Denies: Chest Pain, Palpitations Respiratory: Denies: Cough, Shortness of breath at rest, Sputum production Gastrointestinal: Reports: Hematochezia. Denies: Abdominal Pain, Hematemesis, Nausea, Melena, Vomiting Genitourinary: Denies: Dysuria Musculoskeletal: Denies: Joint Pain, Joint Tenderness Skin: Denies: Rash, Wounds Neurological: Denies: Numbness, Tingling, Focal weakness Psychiatric: Denies: Anxiety, Depression, Homicidal Ideations, Suicidal Ideations Hematologic/ Lymphatic: Denies: Easy Bruising, Easy Bleeding Patient Problems: Active and Suspected Problems (Last Reviewed 08/21/17 @ 14:33 by Pat Gomez) Abnormal laboratory test (Acute) - Physical Exam General: Alert, Cooperative, No apparent distress Lungs: Clear to auscultation, Diminished Cardiovascular: Regular rate, Regular Rhythm, No murmurs Abdomen: Bowel Sounds Present, Non Tender, Distended - clinically with ascites Vital Signs Temp Pulse Resp BP Pulse Ox 98.4 F 66 16 140/63 H 99 05/11/18 08:50 05/11/18 08:50 05/11/18 08:50 05/11/18 08:50 05/11/18 08:50 Oxygen Flow Rate (L/min) 2 Oxygen Delivery Method Nasal Cannula Weight: 86.137 kg Body Mass Index (BMI) 31.6 Finger Stick Blood Glucose 99 Intake and Output for Last 24 Hours 05/09/18 05/10/18 05/11/18 23:59 23:59 23:59 Intake Total 0 / 0 2095 Balance 0 / 0 2095 Laboratory Tests Past 24 Hrs 05/10/18 05/10/18 05/10/18 17:50 17:50 17:50 WBC 1.6 L RBC 2.52 L Hgb 6.9 L Hct 23.1 L MCV 91.7 MCH 27.4 MCHC 29.9 L RDW 18.4 H RDW Differential 61.9 H Plt Count 92 L MPV 10.0 Immature Gran % (Auto) 0.000 Neut % (Auto) 45.8 L Lymph % (Auto) 36.8 [place] % (Auto) 12.3 H Eos % (Auto) 3.2 Baso % (Auto) 1.9 H Absolute Neuts (auto) 0.7 L Absolute Lymphs (auto) 0.57 L Total Counted Not Reportable Differential Comment Diff Path Review September PT 15.5 H INR 1.2 APTT 27.3 Sodium 138 Potassium 3.8 Chloride 96 L Carbon Dioxide 32.0 Anion Gap 10 BUN 15 Creatinine 2.00 H Estim Creat Clear Calc 21.87 Est GFR (MDRD) Af Amer 31 L Est GFR (MDRD) Non-Af 26 L BUN/Creatinine Ratio 7.5 L Glucose 86 Calcium 7.7 L Blood Type Antibody Screen Crossmatch 05/10/18 05/10/18 05/10/18 17:50 18:50 18:50 WBC RBC Hgb Hct MCV MCH MCHC RDW RDW Differential Plt Count MPV Immature Gran % (Auto) Neut % (Auto) Lymph % (Auto) [place] % (Auto) Eos % (Auto) Baso % (Auto) Absolute Neuts (auto) Absolute Lymphs (auto) Total Counted Differential Comment Diff Path Review PT INR APTT Sodium Potassium Chloride Carbon Dioxide Anion Gap BUN Creatinine Estim Creat Clear Calc Est GFR (MDRD) Af Amer Est GFR (MDRD) Non-Af BUN/Creatinine Ratio Glucose Calcium Blood Type Cancelled O NEGATIVE Antibody Screen Cancelled NEGATIVE Crossmatch See Detail See Detail 05/11/18 05/11/18 02:07 09:53 WBC 2.2 L RBC 2.88 L Hgb 6.6 L 7.8 L Hct 22.5 L 25.8 L MCV 89.6 MCH 27.1 MCHC 30.2 L RDW 19.6 H RDW Differential 64.6 H Plt Count 72 L MPV 9.3 Immature Gran % (Auto) 0.000 Neut % (Auto) 47.5 Lymph % (Auto) 36.4 [place] % (Auto) 13.4 H Eos % (Auto) 1.8 Baso % (Auto) 0.9 Absolute Neuts (auto) 1.0 L Absolute Lymphs (auto) 0.79 L Total Counted Not Reportable Differential Comment Diff Path Review PT INR APTT Sodium Potassium Chloride Carbon Dioxide Anion Gap BUN Creatinine Estim Creat Clear Calc Est GFR (MDRD) Af Amer Est GFR (MDRD) Non-Af BUN/Creatinine Ratio Glucose Calcium Blood Type Antibody Screen Crossmatch POC Glucose 05/11/18 05/10/18 06:17 23:13 POC Glucose 104 98 Assessment/Plan All Active Problems (Last Reviewed 08/21/17 @ 14:33 by Pat Gomez) Abnormal laboratory test (Acute) Hyperkalemia (Acute) Ascites (Acute) Hypervolemia (Acute) Hypotension (Acute) Fall (Acute) Gait instability (Acute) Pain in right ankle and joints of right foot (Acute) Ileus (Acute) Unstable angina pectoris (Acute) Hyperkalemia (Acute) Chest pressure (Acute) rectal bleeding, decrease in hemoglobin, allegedly normal upper and lower endoscopy 3 months previously, thrombocytopenia, multiple medical conditions. Patient received 1 unit of packed red cells with an appropriate increase in her hemoglobin. If her hemoglobin continues to decrease would recommend transfusion of one additional packed red cell. We'll plan for upper and lower endoscopy. The patient understands the risks, benefits, possible complications especially given the patient's medical comorb idities and consents to the planned procedure. Discussed with anesthesia the plan for monitored anesthetic care sedation in the morning. We will plan for bowel prep with 2 L of GoLYTELY and have patient maintain on clear liquids today. etiology of ascites seems to be consistent with anasarca/protein malnutrition when reviewing previous CT scan that does not demonstrate cirrhotic changes or splenomegaly. We will carefully check for varices during upper endoscopy. Patient anticipating additional paracentesis this hospitalization.
--- NOTE | 2018-05-11 10:44 | PCM.PN.HOSP ---
Patient Problems: Active and Suspected Problems (Last Reviewed 08/21/17 @ 14:33 by Pat Gomez) Abnormal laboratory test (Acute) Acute blood loss anemia (Acute) Subjective: No abdominal pain. No further hematochezia. Vitals/I&O's: Vital Signs Temp Pulse Resp BP Pulse Ox 36.9 C 66 16 140/63 H 99 05/11/18 08:50 05/11/18 08:50 05/11/18 08:50 05/11/18 08:50 05/11/18 08:50 Oxygen Flow Rate (L/min) 2 Oxygen Delivery Method Nasal Cannula Weight: 86.137 kg Body Mass Index (BMI) 31.6 Finger Stick Blood Glucose 99 Intake and Output for Last 24 Hours 05/09/18 05/10/18 05/11/18 23:59 23:59 23:59 Intake Total 0 / 0 2095 Balance 0 / 0 2095 General: Alert, Cooperative, No apparent distress HEENT: Atraumatic, Normocephalic Oral: Moist Mucosa, No Gingival or Mucosal Lesions/ Ulcerations Neck: No Nodes, Thyroid Normal Size and Texture Lungs: Clear to auscultation, Normal air movement, No rhonchi, No wheeze Cardiovascular: Regular rate, Regular Rhythm, Normal S1, Normal S2, No murmurs Abdomen: Bowel Sounds Present, Soft, Non Tender, Non-Distended, No Hepato-splenomegaly Extremities: No Calf Tenderness, Edema Skin: No rashes, No breakdown Psych/Mental Status: Normal Affect, Appropriate Laboratory Results 05/10/18 17:50: WBC 1.6 L, RBC 2.52 L, Hgb 6.9 L, Hct 23.1 L, MCV 91.7, MCH 27.4, MCHC 29.9 L, RDW 18.4 H, RDW Differential 61.9 H, Plt Count 92 L, MPV 10.0, Immature Gran % (Auto) 0.000, Neut % (Auto) 45.8 L, Lymph % (Auto) 36.8, [place] % (Auto) 12.3 H, Eos % (Auto) 3.2, Baso % (Auto) 1.9 H, Absolute Neuts (auto) 0.7 L, Absolute Lymphs (auto) 0.57 L, Total Counted Not Reportable, Differential Comment , Diff Path Review September05/10/18 17:50: PT 15.5 H, INR 1.2, APTT 27.3 05/10/18 17:50: Sodium 138, Potassium 3.8, Chloride 96 L, Carbon Dioxide 32.0, Anion Gap 10, BUN 15, Creatinine 2.00 H, Estim Creat Clear Calc 21.87, Est GFR (MDRD) Af Amer 31 L, Est GFR (MDRD) Non-Af 26 L, BUN/Creatinine Ratio 7.5 L, Glucose 86, Calcium 7.7 L 05/10/18 17:50: Blood Type Cancelled, Antibody Screen Cancelled 05/10/18 18:50: Blood Type O NEGATIVE, Antibody Screen NEGATIVE, Crossmatch See Detail 05/10/18 18:50: Crossmatch See Detail 05/10/18 23:13: POC Glucose 98 05/11/18 02:07: Hgb 6.6 L, Hct 22.5 L 05/11/18 06:17: POC Glucose 104 05/11/18 09:53: WBC 2.2 L, RBC 2.88 L, Hgb 7.8 L, Hct 25.8 L, MCV 89.6, MCH 27.1, MCHC 30.2 L, RDW 19.6 H, RDW Differential 64.6 H, Plt Count 72 L, MPV 9.3, Immature Gran % (Auto) 0.000, Neut % (Auto) 47.5, Lymph % (Auto) 36.4, [place] % (Auto) 13.4 H, Eos % (Auto) 1.8, Baso % (Auto) 0.9, Absolute Neuts (auto) 1.0 L, Absolute Lymphs (auto) 0.79 L, Total Counted Not Reportable Current Medications Acetaminophen (Tylenol) 500 mg PO Q6H PRN PRN PRN Reason: mild pain/fever Acetaminophen (Tylenol) 650 mg PO Q6H PRN PRN PRN Reason: Mild Pain (1-3)/Temp > 100.7 F Last Admin: 05/10/18 23:15 Dose: 650 mg Hydrocodone Bitart/Acetaminophen ([place] 5mg-325mg) 1 tablet PO Q6H PRN PRN PRN Reason: SEVERE PAIN (6-10/10) Last Admin: 05/11/18 07:50 Dose: 1 tablet Aspirin (Ecotrin) 81 mg PO DAILY@0800 [facility] Last Admin: 05/11/18 08:58 Dose: 81 mg Atorvastatin Calcium (Lipitor) 80 mg PO QHS [facility] Last Admin: 05/10/18 23:16 Dose: 80 mg Calcium Acetate (Phoslo Gel Cap) 2,001 mg PO TID [facility] Carvedilol (Coreg) 12.5 mg PO BID [facility] Last Admin: 05/11/18 09:00 Dose: 12.5 mg Clopidogrel Bisulfate (Plavix) 75 mg PO DAILY [facility] Last Admin: 05/11/18 09:01 Dose: 75 mg Docusate Calcium (Surfak) 240 mg PO BID [facility] Last Admin: 05/11/18 09:01 Dose: Not Given Doxazosin Mesylate (Cardura) 8 mg PO QHS [facility] Last Admin: 05/10/18 23:05 Dose: Not Given Gabapentin (Neurontin) 100 mg PO TIDCM [facility] Last Admin: 05/11/18 08:58 Dose: 100 mg Sodium Chloride () 250 mls @ 15 mls/hr IV .[id number] PRN PRN Reason: SALINE FLUSH Last Admin: 05/11/18 05:03 Dose: 15 mls/hr Sodium Chloride () 250 mls @ 15 mls/hr IV .[id number] PRN PRN Reason: SALINE FLUSH Insulin Human Lispro (Humalog Kwikpen (Bkc)) 0 unit SC Q6 [facility]; Protocol Last Admin: 05/11/18 08:55 Dose: Not Given Isosorbide Mononitrate (Imdur) 30 mg PO BID [facility] Last Admin: 05/11/18 09:00 Dose: 30 mg Lactulose (Chronulac, Cephulac) 26.666 gm PO DAILY PRN PRN PRN Reason: Constipation Losartan Potassium (Cozaar) 50 mg PO BID [facility] Last Admin: 05/11/18 09:00 Dose: 50 mg Non-Formulary Medication (Sevelamer Carbonate) 1,600 mg PO TIDCM [facility] Pantoprazole Sodium (Protonix) 40 mg PO BID [facility] Last Admin: 05/11/18 09:00 Dose: 40 mg Pramipexole Dihydrochloride (Mirapex) 0.25 mg PO QHS [facility] Last Admin: 05/10/18 23:16 Dose: 0.25 mg Sodium Chloride () 5 - 15 ml IV UD PRN PRN Reason: SALINE FLUSH Last Admin: 05/11/18 05:03 Dose: 10 ml Sodium Chloride/Electrolytes (Nulytely) 2,000 ml PO X1 ONE Stop: 05/11/18 16:01 Medical Necessity - Tobacco Use Smoking Status: Former smoker Tobacco Use: Non-smoker Assessment/Plan All Active Problems (Last Reviewed 08/21/17 @ 14:33 by Pat Gomez) Abnormal laboratory test (Acute) Acute blood loss anemia (Acute) 1. acute blood loss anemia Hg down to 6.6, baseline around 9.6 improved after 2 units PRBCs no further need for transfusion at this time continue to monitor H/H 2. GI bleed may be lower EGD and c-scope planned for 05/12 3. Anasarca no obvious cirrhosis on US/CTs may be due to pulmonary HTN (per echo on 02/27, RVSP may have been underestimated), malnutrition fluid restrict HD per renal 4. ESRD dialysis per nephrology. 5. DVT proph: SCDs 6. Malnutrition moderated complicated overall care consult dietary. Code Visit Inpatient E&M: 15210 Subs Hosp L2
--- NOTE | 2018-05-11 10:57 | PN_ITS ---
Patient Problems: Active and Suspected Problems (Last Reviewed 08/21/17 @ 14:33 by Pat Gomez) Abnormal laboratory test (Acute) Acute blood loss anemia (Acute) Subjective: No abdominal pain. No further hematochezia. Vitals/I&O's: Vital Signs Temp Pulse Resp BP Pulse Ox 36.9 C 66 16 140/63 H 99 05/11/18 08:50 05/11/18 08:50 05/11/18 08:50 05/11/18 08:50 05/11/18 08:50 Oxygen Flow Rate (L/min) 2 Oxygen Delivery Method Nasal Cannula Weight: 86.137 kg Body Mass Index (BMI) 31.6 Finger Stick Blood Glucose 99 Intake and Output for Last 24 Hours 05/09/18 05/10/18 05/11/18 23:59 23:59 23:59 Intake Total 0 / 0 2095 Balance 0 / 0 2095 General: Alert, Cooperative, No apparent distress HEENT: Atraumatic, Normocephalic Oral: Moist Mucosa, No Gingival or Mucosal Lesions/ Ulcerations Neck: No Nodes, Thyroid Normal Size and Texture Lungs: Clear to auscultation, Normal air movement, No rhonchi, No wheeze Cardiovascular: Regular rate, Regular Rhythm, Normal S1, Normal S2, No murmurs Abdomen: Bowel Sounds Present, Soft, Non Tender, Non-Distended, No Hepato- splenomegaly Extremities: No Calf Tenderness, Edema Skin: No rashes, No breakdown Psych/Mental Status: Normal Affect, Appropriate Laboratory Results 05/10/18 17:50: WBC 1.6 L, RBC 2.52 L, Hgb 6.9 L, Hct 23.1 L, MCV 91.7, MCH 27.4, MCHC 29.9 L, RDW 18.4 H, RDW Differential 61.9 H, Plt Count 92 L, MPV 10.0, Immature Gran % (Auto) 0.000, Neut % (Auto) 45.8 L, Lymph % (Auto) 36.8, [place] % (Auto) 12.3 H, Eos % (Auto) 3.2, Baso % (Auto) 1.9 H, Absolute Neuts (auto) 0.7 L, Absolute Lymphs (auto) 0.57 L, Total Counted Not Reportable, Differential Comment , Diff Path Review September05/10/18 17:50: PT 15.5 H, INR 1.2, APTT 27.3 05/10/18 17:50: Sodium 138, Potassium 3.8, Chloride 96 L, Carbon Dioxide 32.0, Anion Gap 10, BUN 15, Creatinine 2.00 H, Estim Creat Clear Calc 21.87, Est GFR (MDRD) Af Amer 31 L, Est GFR (MDRD) Non-Af 26 L, BUN/Creatinine Ratio 7.5 L, Glucose 86, Calcium 7.7 L 05/10/18 17:50: Blood Type Cancelled, Antibody Screen Cancelled 05/10/18 18:50: Blood Type O NEGATIVE, Antibody Screen NEGATIVE, Crossmatch See Detail 05/10/18 18:50: Crossmatch See Detail 05/10/18 23:13: POC Glucose 98 05/11/18 02:07: Hgb 6.6 L, Hct 22.5 L 05/11/18 06:17: POC Glucose 104 05/11/18 09:53: WBC 2.2 L, RBC 2.88 L, Hgb 7.8 L, Hct 25.8 L, MCV 89.6, MCH 27.1, MCHC 30.2 L, RDW 19.6 H, RDW Differential 64.6 H, Plt Count 72 L, MPV 9.3, Immature Gran % (Auto) 0.000, Neut % (Auto) 47.5, Lymph % (Auto) 36.4, [place] % (Auto) 13.4 H, Eos % (Auto) 1.8, Baso % (Auto) 0.9, Absolute Neuts (auto) 1.0 L, Absolute Lymphs (auto) 0.79 L, Total Counted Not Reportable Current Medications Acetaminophen (Tylenol) 500 mg PO Q6H PRN PRN PRN Reason: mild pain/fever Acetaminophen (Tylenol) 650 mg PO Q6H PRN PRN PRN Reason: Mild Pain (1-3)/Temp > 100.7 F Last Admin: 05/10/18 23:15 Dose: 650 mg Hydrocodone Bitart/Acetaminophen ([place] 5mg-325mg) 1 tablet PO Q6H PRN PRN PRN Reason: SEVERE PAIN (6-10/10) Last Admin: 05/11/18 07:50 Dose: 1 tablet Aspirin (Ecotrin) 81 mg PO DAILY@0800 [facility] Last Admin: 05/11/18 08:58 Dose: 81 mg Atorvastatin Calcium (Lipitor) 80 mg PO QHS [facility] Last Admin: 05/10/18 23:16 Dose: 80 mg Calcium Acetate (Phoslo Gel Cap) 2,001 mg PO TID [facility] Carvedilol (Coreg) 12.5 mg PO BID [facility] Last Admin: 05/11/18 09:00 Dose: 12.5 mg Clopidogrel Bisulfate (Plavix) 75 mg PO DAILY [facility] Last Admin: 05/11/18 09:01 Dose: 75 mg Docusate Calcium (Surfak) 240 mg PO BID [facility] Last Admin: 05/11/18 09:01 Dose: Not Given Doxazosin Mesylate (Cardura) 8 mg PO QHS [facility] Last Admin: 05/10/18 23:05 Dose: Not Given Gabapentin (Neurontin) 100 mg PO TIDCM [facility] Last Admin: 05/11/18 08:58 Dose: 100 mg Sodium Chloride () 250 mls @ 15 mls/hr IV .[id number] PRN PRN Reason: SALINE FLUSH Last Admin: 05/11/18 05:03 Dose: 15 mls/hr Sodium Chloride () 250 mls @ 15 mls/hr IV .[id number] PRN PRN Reason: SALINE FLUSH Insulin Human Lispro (Humalog Kwikpen (Bkc)) 0 unit SC Q6 [facility]; Protocol Last Admin: 05/11/18 08:55 Dose: Not Given Isosorbide Mononitrate (Imdur) 30 mg PO BID [facility] Last Admin: 05/11/18 09:00 Dose: 30 mg Lactulose (Chronulac, Cephulac) 26.666 gm PO DAILY PRN PRN PRN Reason: Constipation Losartan Potassium (Cozaar) 50 mg PO BID [facility] Last Admin: 05/11/18 09:00 Dose: 50 mg Non-Formulary Medication (Sevelamer Carbonate) 1,600 mg PO TIDCM [facility] Pantoprazole Sodium (Protonix) 40 mg PO BID [facility] Last Admin: 05/11/18 09:00 Dose: 40 mg Pramipexole Dihydrochloride (Mirapex) 0.25 mg PO QHS [facility] Last Admin: 05/10/18 23:16 Dose: 0.25 mg Sodium Chloride () 5 - 15 ml IV UD PRN PRN Reason: SALINE FLUSH Last Admin: 05/11/18 05:03 Dose: 10 ml Sodium Chloride/Electrolytes (Nulytely) 2,000 ml PO X1 ONE Stop: 05/11/18 16:01 Medical Necessity - Tobacco Use Smoking Status: Former smoker Tobacco Use: Non-smoker Assessment/Plan All Active Problems (Last Reviewed 08/21/17 @ 14:33 by Pat Gomez) Abnormal laboratory test (Acute) Acute blood loss anemia (Acute) 1. acute blood loss anemia * Hg down to 6.6, baseline around 9.6 * improved after 2 units PRBCs * no further need for transfusion at this time * continue to monitor H/H 2. GI bleed * may be lower * EGD and c-scope planned for 05/12 3. Anasarca * no obvious cirrhosis on US/CTs * may be due to pulmonary HTN (per echo on 02/27, RVSP may have been underestimated), malnutrition * fluid restrict * HD per renal 4. ESRD * dialysis per nephrology. 5. DVT proph: SCDs 6. Malnutrition * moderated * complicated overall care * consult dietary. Code Visit Inpatient E&M: 91638 Subs Hosp L2
--- NOTE | 2018-05-11 11:36 | CASEMGMT ---
MARGO spoke with patient and she is from [facility] [place]. She plans on returning there at d/c. Green sheet on chart in the event she is ready over the weekend. Plan: d/c back to [place] Marylou WHITTEN
[2018-05-11 11:40] LABS: Bedside Glucose 149 mg/dL (70-110)
[2018-05-11] MEDS: Electrolyte Solution/Peg's 4000 ML 2000 ML PO (16:10)
[2018-05-11] MEDS: SEVELAMER CARBONATE 800 MG TABLET 1600 MG PO (16:20)
[2018-05-11] MEDS: Calcium Acetate 667 MG Capsule 2001 MG PO ×2 (16:20→21:59)
[2018-05-11] MEDS: Insulin Lispro 100 UNIT/ML INSULN.PEN SC (16:27)
[2018-05-11 16:36] LABS: Bedside Glucose 238 mg/dL (70-110)
[2018-05-11] MEDS: Pramipexole Di-HCl 0.25 MG Tablet PO (21:59)
[2018-05-11] MEDS: Atorvastatin Calcium 80 MG Tablet PO (21:59)
[2018-05-11] MEDS: Doxazosin 4 MG Tablet 8 MG PO (22:00)
[2018-05-11 23:55] LABS: Bedside Glucose 113 mg/dL (70-110)
[2018-05-12] VITALS (8 sets, daily range): BP systolic 117–148; BP diastolic 37–52; PULSE 58–77; RESP 16–18; TEMP 36.4–37.2; O2SAT 92–100
--- NOTE | 2018-05-12 01:10 | EKG12_ITS ---
Test Reason : AM EKG Blood Pressure : / mmHG Vent. Rate : 058 BPM Atrial Rate : 058 BPM P-R Int : 280 ms QRS Dur : 094 ms QT Int : 434 ms P-R-T Axes : 060 102 169 degrees QTc Int : 426 ms Sinus bradycardia with 1st degree A-V block Low voltage QRS Nonspecific T wave abnormality Abnormal ECG When compared with ECG of 12-APR-2018 19:18, Sinus rhythm has replaced Atrial fibrillation Questionable change in QRS axis Nonspecific T wave abnormality now evident in Anterior leads T wave inversion less evident in Lateral leads Confirmed by JENN SPRAGUE ([id number]), assistant production editor LEONCIO NAIR ([id number]) on 05/28/2018 1:23:13 PM Referred By: Anuradha Crawley Confirmed By:JENN SPRAGUE
[2018-05-12 06:51] LABS: Bedside Glucose 119 mg/dL (70-110)
[2018-05-12 07:35] LABS: Anion Gap 11 (5-15); BUN 27 mg/dL (7-18); Calcium,Total 8.3 mg/dL (8.5-10.1); Chloride 96 mmol/L (98-107); Creatinine, Serum 3.37 mg/dL (0.55-1.02); EST Glomerular Filtration Rate 14 mL/min (>60); Est Glom Filt Rate - Afr Amer 17 mL/min (>60); Estimated Creatinine Clearance 12.98 ml/min; Glucose 108 mg/dL (74-106); Potassium 4.5 mmol/L (3.5-5.1); Sodium Level 134 mmol/L (136-145)
--- NOTE | 2018-05-12 07:45 | NURSING ---
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 This nurse informed him that stool was liquid consistency but bloody. Dr. Tee okay with this and wants to proceed with Colonscopy. Pt being taken off the floor via bed at this time by Endo Staff.
--- NOTE | 2018-05-12 08:00 | IMM_PTH ---
PATIENT: ULISES CAR LOC: MS3 U#:[id number] AGE/SX: 73/F ROOM: [facility] RE05/10/[address]: Dr. Chaim Jauregui DO : 1945 BED: 1 DIS: 05/18/2018 SPEC #: [id number] RECD: 05/13/18 13:32 STATUS: QUINTON REQ #: [id number] RODERICK: 05/12/18 08:[address]: Diogo Tee DEPT: IMMUNOHISTOCHEMISTRY RECD BY: Ludy Peña ENTERED: 05/13/18 13:32 SP TYPE: IMMUNO OTHR DR: DO Dr. Chaim Toledo DO Dr. Kathleen Fearon, DO Dr. Mark Tereletsky, DO Tissues: A - Stomach, NOS Procedures: H Pylori (initial) PHYSICIAN & INSTITUTION [place] [id number] SPECIMEN INFORMATION: Tissue Source: A - Gastric antrum Clinical Info: GI bleed Specimen Number: [id number] CPT code: 71254 METHODOLOGY: Deparaffinized sections of prefer/formalin-fixed tissue or PAP/DQ stained slides are incubated with monoclonal/polyclonal antibodies/oligonucleotide probes. Localization is made via biotin free immunoperoxidase method. Appropriate controls are performed and reacted as expected. Results on target cell population are indicated in the following table: RESULTS: ANTIBODY / CLONE RESULT Block A H Pylori (polyclonal) negative These tests were developed and their performance characteristics determined by [facility]. They may not have been cleared or approved by the U.S. Food and Drug Administration. The FDA has determined that such clearance or approval is not necessary. INTERPRETATION: A. Gastric antrum, biopsy: Negative for Helicobacter pylori organisms. SJ:christina 05/15/18
--- NOTE | 2018-05-12 08:00 | GASB_PTH ---
PATIENT: ULISES CAR LOC: MS3 U#:[id number] AGE/SX: 73/F ROOM: [facility] RE05/10/[address]: Dr. Chaim Jauregui DO : 1945 BED: 1 DIS: 05/18/2018 SPEC #: [id number] RECD: 05/12/18 09:21 STATUS: QUINTON REChencho #: [id number] RODERICK: 05/12/18 08:[address]: Diogo Tee DEPT: SURGICAL PATHOLOGY RECD BY: Diogo Pizarro ENTERED: 05/13/18 13:17 SP TYPE: Gastric Bx OTHR DR: Dr. Anuradha Crawley, DO Dr. Allie Langley Dr., DO Dr. Davy Tomlin, DO Dr. Diogo Tee MD Tissues: A - Gastric mucous membrane B - Esophageal mucous membrane Procedures: Special Stain Group II Surgery Specimen Level IV Alcian Blue/PAS (control) Comments: @ Ordering doctor for SUIV edited from to @ by ANGELA at 05/13/18 1457 @ Submitting doctor edited from to @ by RGOOD at 05/13/18 1454 HEADER OPERATION: Colonoscopy[place] DIAGNOSIS: GI bleed TISSUE SUBMITTED: A - Biopsy gastric antrum, H. pylori and path, B - Biopsy distal esophagus MICROSCOPIC DIAGNOSIS A. Gastric antrum, biopsy: Mild gastritis. Focal intestinal metaplasia. See microscopic description and comment. B. Distal esophagus, biopsy: A fragment of squamous epithelium with mild chronic inflammation. SJ:christina 05/15/18 COMMENT A. The results of immunohistochemistry for Helicobacter pylori will be reported separately ([id number]). Alcian blue/PAS stain with matched control is used in the evaluation of the specimen. MICROSCOPIC DESCRIPTION Slides are reviewed. A. The specimen shows fragments of gastric mucosa with chronic inflammatory cell infiltrates in the lamina propria consisting of lymphocytes and plasma cells, consistent with mild chronic gastritis. Focal intestinal metaplasia is also noted. GROSS DESCRIPTION A - Received in fixative is one container labeled with the patient's name and designated gastric antrum. The specimen consists of one irregular fragment of light huerta soft tissue that measures 0.3 x 0.2 x 0.1 cm. The specimen is totally submitted in one cassette. B - Received in fixative is one container labeled with the patient's name and designated biopsy distal esophagus. The specimen consists of one irregular fragment of light huerta soft tissue that measures 0.3 x 0.3 x 0.1 cm. The specimen is totally submitted in one cassette. / SJ:rg 05/13/18 TC:3 CPT: 02583 x2, 01501
--- NOTE | 2018-05-12 08:38 | OP.ENDO_ITS ---
Patient Name: Lu Moreira Procedure Date: 05/12/2018 8:04 AM Date of : 1945 Age: 73 Procedure: Upper GI endoscopy Indications: Acute post hemorrhagic anemia Providers: Diogo Tee MD Medicines: Monitored Anesthesia Care Patient Profile: This is a 73 year old female. Refer to note in patient chart for documentation of history and physical. Complications: No immediate complications. Procedure: Pre-Anesthesia Assessment: - Prior to the procedure, a History and Physical was performed, and patient medications and allergies were reviewed. The patient is competent. The risks and benefits of the procedure and the sedation options and risks were discussed with the patient. All questions were answered and informed consent was obtained. Patient identification and proposed procedure were verified by the physician and the nurse in the procedure room. Mental Status Examination: alert and oriented. Airway Examination: normal oropharyngeal airway and neck mobility. Respiratory Examination: clear to auscultation. CV Examination: normal. Prophylactic Antibiotics: The patient does not require prophylactic antibiotics. Prior Anticoagulants: The patient has taken aspirin, last dose was 1 day prior to procedure. ASA Grade Assessment: IV - A patient with severe systemic disease that is a constant threat to life. After reviewing the risks and benefits, the patient was deemed in satisfactory condition to undergo the procedure. The anesthesia plan was to use monitored anesthesia care (MAC). Immediately prior to administration of medications, the patient was re-assessed for adequacy to receive sedatives. The heart rate, respiratory rate, oxygen saturations, blood pressure, adequacy of pulmonary ventilation, and response to care were monitored throughout the procedure. The physical status of the patient was re-assessed after the procedure. After obtaining informed consent, the endoscope was passed under direct vision. Throughout the procedure, the patient's blood pressure, pulse, and oxygen saturations were monitored continuously. The gastroscope was introduced through the mouth, and advanced to the jejunum. The upper GI endoscopy was accomplished without difficulty. The patient tolerated the procedure well. Scope In: 8:17:20 AM Scope Out: 8:20:58 AM Total Procedure Duration Time 0 hours 3 minutes 38 seconds Findings: The examined jejunum was normal. The examined duodenum was normal. Scattered mild inflammation characterized by erosions, erythema, friability and granularity was found in the entire examined stomach. Biopsies were taken with a cold forceps for histology. Non-severe esophagitis with no bleeding was found. Biopsies were taken with a cold forceps for histology. Impression: - Normal examined jejunum. - Normal examined duodenum. - Gastritis. Biopsied. - Non-severe reflux esophagitis. Biopsied. Recommendation: - Await pathology results. - Return patient to hospital [facility] for ongoing care. - Continue present medications. Procedure Code(s): --- Professional --- 18235, Esophagogastroduodenoscopy, flexible, transoral; with biopsy, single or multiple CPT copyright 2017 [employer]. All rights reserved. The codes documented in this report are preliminary and upon hcc coders review may be revised to meet current compliance requirements. Diogo Tee MD 05/12/2018 8:38:23 AM This report has been signed electronically. Number of Addenda: 0 Note Initiated On: 05/12/2018 8:04 AM
--- NOTE | 2018-05-12 08:41 | OP.ENDO_ITS ---
Patient Name: Lu Moreira Procedure Date: 05/12/2018 8:21 AM Date of : 1945 Age: 73 Procedure: Colonoscopy Indications: Rectal bleeding Providers: Diogo Tee MD Medicines: Monitored Anesthesia Care Patient Profile: This is a 73 year old female. Refer to note in patient chart for documentation of history and physical. Last Colonoscopy: date unknown. Complications: No immediate complications. Procedure: Pre-Anesthesia Assessment: - Prior to the procedure, a History and Physical was performed, and patient medications and allergies were reviewed. The patient is competent. The risks and benefits of the procedure and the sedation options and risks were discussed with the patient. All questions were answered and informed consent was obtained. Patient identification and proposed procedure were verified by the physician and the nurse in the procedure room. Mental Status Examination: alert and oriented. Airway Examination: normal oropharyngeal airway and neck mobility. Respiratory Examination: clear to auscultation. CV Examination: normal. Prophylactic Antibiotics: The patient does not require prophylactic antibiotics. Prior Anticoagulants: The patient has taken aspirin, last dose was 1 day prior to procedure. ASA Grade Assessment: IV - A patient with severe systemic disease that is a constant threat to life. After reviewing the risks and benefits, the patient was deemed in satisfactory condition to undergo the procedure. The anesthesia plan was to use monitored anesthesia care (MAC). Immediately prior to administration of medications, the patient was re-assessed for adequacy to receive sedatives. The heart rate, respiratory rate, oxygen saturations, blood pressure, adequacy of pulmonary ventilation, and response to care were monitored throughout the procedure. The physical status of the patient was re-assessed after the procedure. After I obtained informed consent, the scope was passed under direct vision. Throughout the procedure, the patient's blood pressure, pulse, and oxygen saturations were monitored continuously. The colonoscope was introduced through the anus and advanced to 6 cm into the ileum. The colonoscopy was performed without difficulty. The patient tolerated the procedure well. The quality of the bowel preparation was good. Scope In: 8:25:28 AM Scope Withdrawal Time 0 hours 1 minute 35 seconds Scope Out: 8:33:28 AM Total Procedure Duration Time 0 hours 8 minutes 0 seconds Findings: The perianal and digital rectal examinations were normal. The terminal ileum appeared normal. Hematin (altered blood/hboqfd-[id number]-ccfh material) was found in the cecum. Multiple small-mouthed diverticula were found in the entire colon. The retroflexed view of the distal rectum and anal verge was normal and showed no anal or rectal abnormalities. Impression: - The examined portion of the ileum was normal. - Blood in the cecum. - Diverticulosis in the entire examined colon. - The distal rectum and anal verge are normal on retroflexion view. - No specimens collected. Recommendation: - Return patient to hospital [facility] for ongoing care. - Do a GI bleeding (tagged RBC) scan if symptoms persist. - No recommendation at this time regarding repeat colonoscopy due to age. - Continue present medications. Procedure Code(s): --- Professional --- 98554, Colonoscopy, flexible; diagnostic, including collection of specimen(s) by brushing or washing, when performed (separate procedure) CPT copyright 2017 [employer]. All rights reserved. The codes documented in this report are preliminary and upon data warehousing engineer review may be revised to meet current compliance requirements. Diogo Tee MD 05/12/2018 8:41:26 AM This report has been signed electronically. Number of Addenda: 0 Note Initiated On: 05/12/2018 8:21 AM
--- NOTE | 2018-05-12 09:19 | NURSING ---
Back from [facility] at this time. Dialysis nurse here setting up.
--- NOTE | 2018-05-12 09:27 | PN.SURG_ITS ---
Patient Problems: Active and Suspected Problems (Last Updated 05/11/18 @ 10:46 by Chaim Jauregui DO) Acute blood loss anemia (Acute) Abnormal laboratory test (Acute) Subjective: noted blood in stool with bowel prep - Physical Exam General: Alert, Oriented x3, Cooperative Lungs: Clear to auscultation Cardiovascular: Bradycardic Abdomen: Bowel Sounds Present, Soft, Non Tender Vital Signs Temp Pulse Resp BP Pulse Ox 97.6 F L 63 18 130/46 H 99 05/12/18 09:20 05/12/18 09:20 05/12/18 09:20 05/12/18 09:20 05/12/18 09:20 Oxygen Flow Rate (L/min) 2 Oxygen Delivery Method Room Air Weight: 86.137 kg Body Mass Index (BMI) 31.6 Finger Stick Blood Glucose 99 Intake and Output for Last 24 Hours 05/10/18 05/11/18 05/12/18 23:59 23:59 23:59 Intake Total 0 / 0 2396 / 2396 3400 / 3400 Output Total 1600 / 1600 Balance 0 / 0 2396 / 2396 1800 / 1800 Laboratory Tests Past 24 Hrs 05/11/18 05/12/18 05/12/18 09:53 06:32 06:32 WBC 2.2 L Cancelled Corrected WBC Cancelled RBC 2.88 L Cancelled Hgb 7.8 L Cancelled Hct 25.8 L Cancelled MCV 89.6 Cancelled MCH 27.1 Cancelled MCHC 30.2 L Cancelled RDW 19.6 H Cancelled RDW Differential 64.6 H Cancelled Plt Count 72 L Cancelled MPV 9.3 Cancelled Immature Gran % (Auto) 0.000 Cancelled Neut % (Auto) 47.5 Cancelled Lymph % (Auto) 36.4 Cancelled Wells % (Auto) 13.4 H Cancelled Eos % (Auto) 1.8 Cancelled Baso % (Auto) 0.9 Cancelled Immature Gran # (Auto) Cancelled Absolute Neuts (auto) 1.0 L Cancelled Absolute Lymphs (auto) 0.79 L Cancelled Absolute Monos (auto) Cancelled Total Counted Not Reportable Cancelled Neutrophils % (Manual) Cancelled Band Neutrophils % Cancelled Lymphocytes % (Manual) Cancelled Monocytes % (Manual) Cancelled Eosinophils % (Manual) Cancelled Basophils % (Manual) Cancelled Metamyelocytes % Cancelled Myelocytes % Cancelled Promyelocytes % Cancelled Blast Cells % Cancelled Plasma Cell % (Manual) Cancelled Other Cells % Cancelled Lymphocytes # Cancelled Nucleated RBCs/100 WBC Cancelled Differential Comment Cancelled Diff Path Review Cancelled Hypersegmented Neuts Cancelled Atypical Lymphocytes Cancelled Reactive Lymphocytes Cancelled Smudge Cells Cancelled Eosinophilia # Cancelled Basophilia # Cancelled Toxic Granulation Cancelled Dohle Bodies Cancelled Celestina Rods Cancelled Platelet Estimate Cancelled Plt Morphology Comment Cancelled RBC Morphology Cancelled Polychromasia Cancelled Hypochromasia Cancelled Poikilocytosis Cancelled Basophilic Stippling Cancelled Anisocytosis Cancelled Microcytosis Cancelled Macrocytosis Cancelled Spherocytes Cancelled Sickle Cells Cancelled Target Cells Cancelled Tear Drop Cells Cancelled Ovalocytes Cancelled Stomatocytes Cancelled [place] Bodies Cancelled [place]enny Cells Cancelled Bite Cells Cancelled Acanthocytes (Spur) Cancelled Rouleaux Cancelled Schistocytes Cancelled Sodium 134 L Potassium 4.5 Chloride 96 L Carbon Dioxide 27.0 Anion Gap 11 BUN 27 H Creatinine 3.37 H Estim Creat Clear Calc 12.98 Est GFR (MDRD) Af Amer 17 L Est GFR (MDRD) Non-Af 14 L BUN/Creatinine Ratio 8.0 L Glucose 108 H Hemoglobin A1c Calcium 8.3 L 05/12/18 06:32 WBC Corrected WBC RBC Hgb Hct MCV MCH MCHC RDW RDW Differential Plt Count MPV Immature Gran % (Auto) Neut % (Auto) Lymph % (Auto) [place] % (Auto) Eos % (Auto) Baso % (Auto) Immature Gran # (Auto) Absolute Neuts (auto) Absolute Lymphs (auto) Absolute Monos (auto) Total Counted Neutrophils % (Manual) Band Neutrophils % Lymphocytes % (Manual) Monocytes % (Manual) Eosinophils % (Manual) Basophils % (Manual) Metamyelocytes % Myelocytes % Promyelocytes % Blast Cells % Plasma Cell % (Manual) Other Cells % Lymphocytes # Nucleated RBCs/100 WBC Differential Comment Diff Path Review Hypersegmented Neuts Atypical Lymphocytes Reactive Lymphocytes Smudge Cells Eosinophilia # Basophilia # Toxic Granulation Dohle Bodies Celestina Rods Platelet Estimate Plt Morphology Comment RBC Morphology Polychromasia Hypochromasia Poikilocytosis Basophilic Stippling Anisocytosis Microcytosis Macrocytosis Spherocytes Sickle Cells Target Cells Tear Drop Cells Ovalocytes Stomatocytes [place] Bodies [place] Cells Bite Cells Acanthocytes (Spur) Rouleaux Schistocytes Sodium Potassium Chloride Carbon Dioxide Anion Gap BUN Creatinine Estim Creat Clear Calc Est GFR (MDRD) Af Amer Est GFR (MDRD) Non-Af BUN/Creatinine Ratio Glucose Hemoglobin A1c Cancelled Calcium POC Glucose 05/12/18 05/11/18 05/11/18 06:41 23:49 16:23 POC Glucose 119 H 113 H 238 H 05/11/18 11:34 POC Glucose 149 H Medical Necessity - Tobacco Use Smoking Status: Former smoker Tobacco Use: Non-smoker Assessment/Plan All Active Problems (Last Updated 05/11/18 @ 10:46 by Chaim Jauregui DO) Acute blood loss anemia (Acute) Abnormal laboratory test (Acute) rectal bleeding, decrease in hemoglobin, allegedly normal upper and lower endoscopy 3 months previously, thrombocytopenia, multiple medical conditions. Patient received 1 unit of packed red cells with an appropriate increase in her hemoglobin. If her hemoglobin continues to decrease would recommend transfusion of one additional packed red cell. Upper and lower endoscopy performed this morning. upper endoscopy demonstrated some diffuse gastritis with no signs of active bleeding and distal esophagitis. Colonoscopy demonstrated what looked like some older blood clots all the way around the base of the cecum suggestive of proximal bleeding. No blood or irritation in the terminal ileum. The patient had diverticulosis without signs of diverticular bleed. If the patient's hemoglobin drops or she rebleeds I would recommend bleeding scan. etiology of ascites seems to be consistent with anasarca/protein malnutrition when reviewing previous CT scan that does not demonstrate cirrhotic changes or splenomegaly. We will carefully checked for varices during upper endoscopy - no varices were noted. Patient anticipating additional paracentesis this hospitalization.
[2018-05-12 09:49] LABS: Absolute Lymphocyte Count 0.84 X10^3/ul (0.83-4.51); Absolute Neutrophil Count 0.9 X10^3/uL (2.0-7.7); Basophil# 0.03 X10^3/uL; Basophil% 1.4 % (0-1); Eosinophil# 0.07 X10^3/uL; Eosinophils% 3.4 % (0-5); Hematocrit 24.5 % (37-47); Hemoglobin 7.4 g/dl (12.0-15.0); Lymphocyte # 0.84 X10^3/ul (4.0); Lymphocyte % 40.4 % (19-41); Mean Corp Hgb Conc 30.2 g/gl (32-36); Mean Corpuscular Hgb 27.1 pg (27.0-32.0); Mean Corpuscular Volume 89.7 fL (81-99); Monocyte# 0.22 X10^3/uL; Monocyte% 10.6 % (0-10); Neutrophil # 0.92 X10^3/uL (2.7-7.7); Neutrophil % 44.2 % (47-70); Platelet Count 64 K/mm3 (150-450); RBC Distribution Width CV 19.4 % (11.6-14.6); Red Blood Count 2.73 M/mm3 (4.2-5.4); White Blood Count 2.1 K/mm3 (4.4-11.0)
[2018-05-12 09:50] LABS: Differential Indicated SCAN CRITERIA MET; POSITIVE COUNT NO; POSITIVE DIFFERENTIAL YES; POSITIVE MORPHOLOGY NO
--- NOTE | 2018-05-12 10:17 | PCM.PN.HOSP ---
Patient Problems: Active and Suspected Problems (Last Updated 05/11/18 @ 10:46 by Chaim Jauregui DO) Acute blood loss anemia (Acute) Abnormal laboratory test (Acute) Subjective: Still with rectal bleeding. Complaints of paresthesias and pain in right 1st 3 fingers since fall last month--intermittent. Vitals/I&O's: Vital Signs Temp Pulse Resp BP Pulse Ox 36.4 C L 63 18 130/46 H 99 05/12/18 09:20 05/12/18 09:20 05/12/18 09:20 05/12/18 09:20 05/12/18 09:20 Oxygen Flow Rate (L/min) 2 Oxygen Delivery Method Room Air Weight: 86.137 kg Body Mass Index (BMI) 31.6 Finger Stick Blood Glucose 99 Intake and Output for Last 24 Hours 05/10/18 05/11/18 05/12/18 23:59 23:59 23:59 Intake Total 0 / 0 2396 / 2396 3400 / 3400 Output Total 1600 / 1600 Balance 0 / 0 2396 / 2396 1800 / 1800 General: Alert, Cooperative, No apparent distress HEENT: Atraumatic, Normocephalic Oral: Moist Mucosa Neck: No Nodes, Thyroid Normal Size and Texture Lungs: Clear to auscultation, Normal air movement, No rhonchi, No wheeze Cardiovascular: Regular rate, Regular Rhythm, Normal S1, Normal S2, No murmurs Abdomen: Bowel Sounds Present, Soft, Non Tender, Non-Distended, No Hepato-splenomegaly Extremities: No edema, No Calf Tenderness Skin: No rashes, No breakdown Psych/Mental Status: Normal Affect, Appropriate Laboratory Results 05/11/18 11:34: POC Glucose 149 H 05/11/18 16:23: POC Glucose 238 H 05/11/18 23:49: POC Glucose 113 H 05/12/18 06:32: WBC Cancelled, Corrected WBC Cancelled, RBC Cancelled, Hgb Cancelled, Hct Cancelled, MCV Cancelled, MCH Cancelled, MCHC Cancelled, RDW Cancelled, RDW Differential Cancelled, Plt Count Cancelled, MPV Cancelled, Immature Gran % (Auto) Cancelled, Neut % (Auto) Cancelled, Lymph % (Auto) Cancelled, [place] % (Auto) Cancelled, Eos % (Auto) Cancelled, Baso % (Auto) Cancelled, Immature Gran # (Auto) Cancelled, Absolute Neuts (auto) Cancelled, Absolute Lymphs (auto) Cancelled, Absolute Monos (auto) Cancelled, Total Counted Cancelled, Neutrophils % (Manual) Cancelled, Band Neutrophils % Cancelled, Lymphocytes % (Manual) Cancelled, Monocytes % (Manual) Cancelled, Eosinophils % (Manual) Cancelled, Basophils % (Manual) Cancelled, Metamyelocytes % Cancelled, Myelocytes % Cancelled, Promyelocytes % Cancelled, Blast Cells % Cancelled, Plasma Cell % (Manual) Cancelled, Other Cells % Cancelled, Lymphocytes # Cancelled, Nucleated RBCs/100 WBC Cancelled, Differential Comment Cancelled, Diff Path Review Cancelled, Hypersegmented Neuts Cancelled, Atypical Lymphocytes Cancelled, Reactive Lymphocytes Cancelled, Smudge Cells Cancelled, Eosinophilia # Cancelled, Basophilia # Cancelled, Toxic Granulation Cancelled, Dohle Bodies Cancelled, Celestina Rods Cancelled, Platelet Estimate Cancelled, Plt Morphology Comment Cancelled, RBC Morphology Cancelled, Polychromasia Cancelled, Hypochromasia Cancelled, Poikilocytosis Cancelled, Basophilic Stippling Cancelled, Anisocytosis Cancelled, Microcytosis Cancelled, Macrocytosis Cancelled, Spherocytes Cancelled, Sickle Cells Cancelled, Target Cells Cancelled, Tear Drop Cells Cancelled, Ovalocytes Cancelled, Stomatocytes Cancelled, [place] Bodies Cancelled, [place] Cells Cancelled, Bite Cells Cancelled, Acanthocytes (Spur) Cancelled, Rouleaux Cancelled, Schistocytes Cancelled 05/12/18 06:32: Sodium 134 L, Potassium 4.5, Chloride 96 L, Carbon Dioxide 27.0, Anion Gap 11, BUN 27 H, Creatinine 3.37 H, Estim Creat Clear Calc 12.98, Est GFR (MDRD) Af Amer 17 L, Est GFR (MDRD) Non-Af 14 L, BUN/Creatinine Ratio 8.0 L, Glucose 108 H, Calcium 8.3 L 05/12/18 06:32: Hemoglobin A1c Cancelled 05/12/18 06:41: POC Glucose 119 H 05/12/18 09:36: WBC 2.1 L, RBC 2.73 L, Hgb 7.4 L, Hct 24.5 L, MCV 89.7, MCH 27.1, MCHC 30.2 L, RDW 19.4 H, RDW Differential 64.0 H, Plt Count 64 L, MPV 9.0, Immature Gran % (Auto) 0.000, Neut % (Auto) 44.2 L, Lymph % (Auto) 40.4, [place] % (Auto) 10.6 H, Eos % (Auto) 3.4, Baso % (Auto) 1.4 H, Absolute Neuts (auto) 0.9 L, Absolute Lymphs (auto) 0.84, Total Counted Not Reportable, Differential Comment 05/12/18 09:36: Hemoglobin A1c Pending Current Medications Acetaminophen (Tylenol) 500 mg PO Q6H PRN PRN PRN Reason: mild pain/fever Acetaminophen (Tylenol) 650 mg PO Q6H PRN PRN PRN Reason: Mild Pain (1-3)/Temp > 100.7 F Last Admin: 05/10/18 23:15 Dose: 650 mg Hydrocodone Bitart/Acetaminophen ([place] 5mg-325mg) 1 tablet PO Q6H PRN PRN PRN Reason: SEVERE PAIN (6-10/10) Last Admin: 05/11/18 22:37 Dose: 1 tablet Aspirin (Ecotrin) 81 mg PO DAILY@0800 [facility] Last Admin: 05/11/18 08:58 Dose: 81 mg Atorvastatin Calcium (Lipitor) 80 mg PO QHS [facility] Last Admin: 05/11/18 21:59 Dose: 80 mg Calcium Acetate (Phoslo Gel Cap) 2,001 mg PO TIDAC [facility] Last Admin: 05/11/18 21:59 Dose: 2,001 mg Carvedilol (Coreg) 12.5 mg PO BID [facility] Last Admin: 05/11/18 21:59 Dose: 12.5 mg Clopidogrel Bisulfate (Plavix) 75 mg PO DAILY [facility] Last Admin: 05/11/18 09:01 Dose: 75 mg Docusate Calcium (Surfak) 240 mg PO BID [facility] Last Admin: 05/11/18 22:02 Dose: Not Given Doxazosin Mesylate (Cardura) 8 mg PO QHS [facility] Last Admin: 05/11/18 22:00 Dose: 8 mg Gabapentin (Neurontin) 100 mg PO TIDCM [facility] Last Admin: 05/11/18 16:12 Dose: 100 mg Insulin Human Lispro (Humalog Kwikpen (Bkc)) 0 unit SC Q6 [facility]; Protocol Last Admin: 05/12/18 06:53 Dose: Not Given Isosorbide Mononitrate (Imdur) 30 mg PO BID [facility] Last Admin: 05/11/18 21:59 Dose: 30 mg Lactulose (Chronulac, Cephulac) 26.666 gm PO DAILY PRN PRN PRN Reason: Constipation Losartan Potassium (Cozaar) 50 mg PO BID [facility] Last Admin: 05/11/18 21:59 Dose: 50 mg Nutritional Formula (Lactose Free) (Ensure Clear) 120 ml PO TIDCM [facility] Last Admin: 05/11/18 19:33 Dose: Not Given Pantoprazole Sodium (Protonix) 40 mg PO BID [facility] Last Admin: 05/11/18 21:58 Dose: 40 mg Pramipexole Dihydrochloride (Mirapex) 0.25 mg PO QHS [facility] Last Admin: 05/11/18 21:59 Dose: 0.25 mg Sevelamer Carbonate (Renvela) 1,600 mg PO TIDCM [facility] Last Admin: 05/11/18 16:20 Dose: 1,600 mg Sodium Chloride () 5 - 15 ml IV UD PRN PRN Reason: SALINE FLUSH Last Admin: 05/11/18 05:03 Dose: 10 ml Medical Necessity - Tobacco Use Smoking Status: Former smoker Tobacco Use: Non-smoker Assessment/Plan All Active Problems (Last Updated 05/11/18 @ 10:46 by Chaim Jauregui DO) Acute blood loss anemia (Acute) Abnormal laboratory test (Acute) 1. acute blood loss anemia Hg down to 6.6, baseline around 9.6 improved after 2 units PRBCs Hg 7.4 EGD and colonoscopy showed no obvious source, but blood was noted in cecum (suspected source somewhere in small bowel) Bleeding scan (likely won't be done until 05/13) If bleeding gets worse, may need to transfer to tertiary facility. Type and screen an additional 2 units. monitor H/H 2. GI bleed as above. 3. Anasarca no obvious cirrhosis on US/CTs may be due to pulmonary HTN (per echo on 02/27, RVSP may have been underestimated), malnutrition fluid restrict HD per renal advised pt no indication for paracentesis at this time (would want to be more distended before doing so, currently soft). Discussed risks and benefits of paracentesis with patient including infection and extraction of protein 4. ESRD dialysis per nephrology. 5. DVT proph: SCDs 6. Malnutrition moderated complicated overall care consult dietary. Code Visit Inpatient E&M: 67169 Subs Hosp L2
--- NOTE | 2018-05-12 10:24 | PN_ITS ---
Patient Problems: Active and Suspected Problems (Last Updated 05/11/18 @ 10:46 by Chaim Jauregui DO) Acute blood loss anemia (Acute) Abnormal laboratory test (Acute) Subjective: Still with rectal bleeding. Complaints of paresthesias and pain in right 1st 3 fingers since fall last month--intermittent. Vitals/I&O's: Vital Signs Temp Pulse Resp BP Pulse Ox 36.4 C L 63 18 130/46 H 99 05/12/18 09:20 05/12/18 09:20 05/12/18 09:20 05/12/18 09:20 05/12/18 09:20 Oxygen Flow Rate (L/min) 2 Oxygen Delivery Method Room Air Weight: 86.137 kg Body Mass Index (BMI) 31.6 Finger Stick Blood Glucose 99 Intake and Output for Last 24 Hours 05/10/18 05/11/18 05/12/18 23:59 23:59 23:59 Intake Total 0 / 0 2396 / 2396 3400 / 3400 Output Total 1600 / 1600 Balance 0 / 0 2396 / 2396 1800 / 1800 General: Alert, Cooperative, No apparent distress HEENT: Atraumatic, Normocephalic Oral: Moist Mucosa Neck: No Nodes, Thyroid Normal Size and Texture Lungs: Clear to auscultation, Normal air movement, No rhonchi, No wheeze Cardiovascular: Regular rate, Regular Rhythm, Normal S1, Normal S2, No murmurs Abdomen: Bowel Sounds Present, Soft, Non Tender, Non-Distended, No Hepato- splenomegaly Extremities: No edema, No Calf Tenderness Skin: No rashes, No breakdown Psych/Mental Status: Normal Affect, Appropriate Laboratory Results 05/11/18 11:34: POC Glucose 149 H 05/11/18 16:23: POC Glucose 238 H 05/11/18 23:49: POC Glucose 113 H 05/12/18 06:32: WBC Cancelled, Corrected WBC Cancelled, RBC Cancelled, Hgb Cancelled, Hct Cancelled, MCV Cancelled, MCH Cancelled, MCHC Cancelled, RDW Cancelled, RDW Differential Cancelled, Plt Count Cancelled, MPV Cancelled, Immature Gran % (Auto) Cancelled, Neut % (Auto) Cancelled, Lymph % (Auto) Cancelled, [place] % (Auto) Cancelled, Eos % (Auto) Cancelled, Baso % (Auto) Cancelled, Immature Gran # (Auto) Cancelled, Absolute Neuts (auto) Cancelled, Absolute Lymphs (auto) Cancelled, Absolute Monos (auto) Cancelled, Total Counted Cancelled, Neutrophils % (Manual) Cancelled, Band Neutrophils % Cancelled, Lymphocytes % (Manual) Cancelled, Monocytes % (Manual) Cancelled, Eosinophils % (Manual) Cancelled, Basophils % (Manual) Cancelled, Metamyelocytes % Cancelled, Myelocytes % Cancelled, Promyelocytes % Cancelled, Blast Cells % Cancelled, Plasma Cell % (Manual) Cancelled, Other Cells % Cancelled, Lymphocytes # Cancell ed, Nucleated RBCs/100 WBC Cancelled, Differential Comment Cancelled, Diff Path Review Cancelled, Hypersegmented Neuts Cancelled, Atypical Lymphocytes Cancelled, Reactive Lymphocytes Cancelled, Smudge Cells Cancelled, Eosinophilia # Cancelled, Basophilia # Cancelled, Toxic Granulation Cancelled, Dohle Bodies Cancelled, Celestina Rods Cancelled, Platelet Estimate Cancelled, Plt Morphology Comment Cancelled, RBC Morphology Cancelled, Polychromasia Cancelled, Hypochromasia Cancelled, Poikilocytosis Cancelled, Basophilic Stippling Cancelled, Anisocytosis Cancelled, Microcytosis Cancelled, Macrocytosis Cancelled, Spherocytes Cancelled, Sickle Cells Cancelled, Target Cells Cancelled, Tear Drop Cells Cancelled, Ovalocytes Cancelled, Stomatocytes Cancelled, [place] Bodies Cancelled, [place] Cells Cancelled, Bite Cells Cancelled, Acanthocytes (Spur) Cancelled, Rouleaux Cancelled, Schistocytes Cancelled 05/12/18 06:32: Sodium 134 L, Potassium 4.5, Chloride 96 L, Carbon Dioxide 27.0, Anion Gap 11, BUN 27 H, Creatinine 3.37 H, Estim Creat Clear Calc 12.98, Est GFR (MDRD) Af Amer 17 L, Est GFR (MDRD) Non-Af 14 L, BUN/Creatinine Ratio 8.0 L, Glucose 108 H, Calcium 8.3 L 05/12/18 06:32: Hemoglobin A1c Cancelled 05/12/18 06:41: POC Glucose 119 H 05/12/18 09:36: WBC 2.1 L, RBC 2.73 L, Hgb 7.4 L, Hct 24.5 L, MCV 89.7, MCH 27.1, MCHC 30.2 L, RDW 19.4 H, RDW Differential 64.0 H, Plt Count 64 L, MPV 9.0, Immature Gran % (Auto) 0.000, Neut % (Auto) 44.2 L, Lymph % (Auto) 40.4, [place] % (Auto) 10.6 H, Eos % (Auto) 3.4, Baso % (Auto) 1.4 H, Absolute Neuts (auto) 0.9 L, Absolute Lymphs (auto) 0.84, Total Counted Not Reportable, Differential Comment 05/12/18 09:36: Hemoglobin A1c Pending Current Medications Acetaminophen (Tylenol) 500 mg PO Q6H PRN PRN PRN Reason: mild pain/fever Acetaminophen (Tylenol) 650 mg PO Q6H PRN PRN PRN Reason: Mild Pain (1-3)/Temp > 100.7 F Last Admin: 05/10/18 23:15 Dose: 650 mg Hydrocodone Bitart/Acetaminophen ([place] 5mg-325mg) 1 tablet PO Q6H PRN PRN PRN Reason: SEVERE PAIN (6-10/10) Last Admin: 05/11/18 22:37 Dose: 1 tablet Aspirin (Ecotrin) 81 mg PO DAILY@0800 [facility] Last Admin: 05/11/18 08:58 Dose: 81 mg Atorvastatin Calcium (Lipitor) 80 mg PO QHS [facility] Last Admin: 05/11/18 21:59 Dose: 80 mg Calcium Acetate (Phoslo Gel Cap) 2,001 mg PO TIDAC [facility] Last Admin: 05/11/18 21:59 Dose: 2,001 mg Carvedilol (Coreg) 12.5 mg PO BID [facility] Last Admin: 05/11/18 21:59 Dose: 12.5 mg Clopidogrel Bisulfate (Plavix) 75 mg PO DAILY [facility] Last Admin: 05/11/18 09:01 Dose: 75 mg Docusate Calcium (Surfak) 240 mg PO BID [facility] Last Admin: 05/11/18 22:02 Dose: Not Given Doxazosin Mesylate (Cardura) 8 mg PO QHS [facility] Last Admin: 05/11/18 22:00 Dose: 8 mg Gabapentin (Neurontin) 100 mg PO TIDCM [facility] Last Admin: 05/11/18 16:12 Dose: 100 mg Insulin Human Lispro (Humalog Kwikpen (Bkc)) 0 unit SC Q6 [facility]; Protocol Last Admin: 05/12/18 06:53 Dose: Not Given Isosorbide Mononitrate (Imdur) 30 mg PO BID [facility] Last Admin: 05/11/18 21:59 Dose: 30 mg Lactulose (Chronulac, Cephulac) 26.666 gm PO DAILY PRN PRN PRN Reason: Constipation Losartan Potassium (Cozaar) 50 mg PO BID [facility] Last Admin: 05/11/18 21:59 Dose: 50 mg Nutritional Formula (Lactose Free) (Ensure Clear) 120 ml PO TIDCM [facility] Last Admin: 05/11/18 19:33 Dose: Not Given Pantoprazole Sodium (Protonix) 40 mg PO BID [facility] Last Admin: 05/11/18 21:58 Dose: 40 mg Pramipexole Dihydrochloride (Mirapex) 0.25 mg PO QHS [facility] Last Admin: 05/11/18 21:59 Dose: 0.25 mg Sevelamer Carbonate (Renvela) 1,600 mg PO TIDCM [facility] Last Admin: 05/11/18 16:20 Dose: 1,600 mg Sodium Chloride () 5 - 15 ml IV UD PRN PRN Reason: SALINE FLUSH Last Admin: 05/11/18 05:03 Dose: 10 ml Medical Necessity - Tobacco Use Smoking Status: Former smoker Tobacco Use: Non-smoker Assessment/Plan All Active Problems (Last Updated 05/11/18 @ 10:46 by Chaim Jauregui DO) Acute blood loss anemia (Acute) Abnormal laboratory test (Acute) 1. acute blood loss anemia * Hg down to 6.6, baseline around 9.6 * improved after 2 units PRBCs * Hg 7.4 * EGD and colonoscopy showed no obvious source, but blood was noted in cecum (suspected source somewhere in small bowel) * Bleeding scan (likely won't be done until 05/13) * If bleeding gets worse, may need to transfer to tertiary facility. * Type and screen an additional 2 units. * monitor H/H 2. GI bleed * as above. 3. Anasarca * no obvious cirrhosis on US/CTs * may be due to pulmonary HTN (per echo on 02/27, RVSP may have been underestimated), malnutrition * fluid restrict * HD per renal * advised pt no indication for paracentesis at this time (would want to be more distended before doing so, currently soft). Discussed risks and benefits of paracentesis with patient including infection and extraction of protein 4. ESRD * dialysis per nephrology. 5. DVT proph: SCDs 6. Malnutrition * moderated * complicated overall care * consult dietary. Code Visit Inpatient E&M: 98353 Subs Hosp L2
--- NOTE | 2018-05-12 10:25 | NM_ITS ---
CLINICAL: 73-year-old female with reported history of gastrointestinal hemorrhage. LABELED BLOOD POOL GASTROINTESTINAL BLEEDING STUDY COMPARISON: CT of the abdomen-pelvis report of 04/14/2018 FINDINGS: Following the intravenous administration of 26.1 mCi of 99m Tc Ultratag labeled RBCs, image acquisitions of the anterior-abdomen and pelvis for a total of 60 minutes reveal: 1. Static sequential 1 minute acquisitions of the anterior abdomen and pelvis demonstrate no evidence of abnormal increased radiopharmaceutical concentration indicative of acute gastrointestinal hemorrhage. 2. Physiologic distribution of the radiopharmaceutical is identified in the hepatic, splenic, cardiac and major vascular blood pool. There is visualization of the urinary bladder. NM/GI Bleed Scan IMPRESSION: 1. NEGATIVE 99m Tc ULTRATAG LABELED BLOOD POOL GASTROINTESTINAL BLEEDING EXAMINATION. 2. There is no definitive typical scintigraphic evidence of acute gastrointestinal hemorrhage on the current examination. Electronically Signed: Diogo Sellers DO at 12:19 EST Tel , Service support ,
[2018-05-12 12:03] LABS: Hemoglobin A1c 5.5 % (4.2-6.3)
[2018-05-12] MEDS: HYDROcodone Bitartrate/Apap 5/325 Tablet PO (12:24)
[2018-05-12 12:46] LABS: Bedside Glucose 107 mg/dL (70-110)
--- NOTE | 2018-05-12 14:35 | PCM.CONS.R ---
Consultation - Renal 05/12/18 PCP/ Referring MD: Requesting physician: [] Primary care physician: Allie Lund DO Reason for Consultation:: ESRD HD MWF renal mgmt - History of Present Illness History of Present Illness: The patient is a 73 year old F with ESRD on HD MWF admitted for GI bleed with hgb down to 6.7g drawn at dialysis center Sunday. She underwent endoscopy this morning. Received prbc on admit. Denies nausea, vomiting. Has abdominal discomfort. Hx GI bleed with multiple hospitalizations. Hx paracentesis for ascites. She has noncompliance with diet, chronic fluid overload, high interdialytic fluid gains. She is currently at [facility] since last hospitalization in March for weakness, falls due to to elevated potassium. She was seen on dialysis earlier today. Dialysis scheduled today due to holiday. Her next dialysis scheduled for Sunday. - Allergies Allergies: Allergies lisinopril Allergy (Verified 05/10/18 17:08) Swelling nebivolol HCl [From Bystolic] Adverse Reaction (Verified 05/10/18 17:08) bradycardia BRADYCARDIA - Current Medications Current Medications: Current Medications Acetaminophen (Tylenol) 500 mg PO Q6H PRN PRN PRN Reason: mild pain/fever Acetaminophen (Tylenol) 650 mg PO Q6H PRN PRN PRN Reason: Mild Pain (1-3)/Temp > 100.7 F Last Admin: 05/10/18 23:15 Dose: 650 mg Hydrocodone Bitart/Acetaminophen ([place] 5mg-325mg) 1 tablet PO Q6H PRN PRN PRN Reason: SEVERE PAIN (6-10/10) Last Admin: 05/12/18 12:24 Dose: 1 tablet Aspirin (Ecotrin) 81 mg PO DAILY@0800 [facility] Last Admin: 05/11/18 08:58 Dose: 81 mg Atorvastatin Calcium (Lipitor) 80 mg PO QHS [facility] Last Admin: 05/11/18 21:59 Dose: 80 mg Calcium Acetate (Phoslo Gel Cap) 2,001 mg PO TIDAC [facility] Last Admin: 05/12/18 11:48 Dose: Not Given Carvedilol (Coreg) 12.5 mg PO BID [facility] Last Admin: 05/11/18 21:59 Dose: 12.5 mg Clopidogrel Bisulfate (Plavix) 75 mg PO DAILY [facility] Last Admin: 05/11/18 09:01 Dose: 75 mg Docusate Calcium (Surfak) 240 mg PO BID [facility] Last Admin: 05/12/18 12:31 Dose: Not Given Doxazosin Mesylate (Cardura) 8 mg PO QHS [facility] Last Admin: 05/11/18 22:00 Dose: 8 mg Gabapentin (Neurontin) 100 mg PO TIDCM [facility] Last Admin: 05/12/18 11:48 Dose: Not Given Insulin Human Lispro (Humalog Kwikpen (Bkc)) 0 unit SC Q6 [facility]; Protocol Last Admin: 05/12/18 12:30 Dose: Not Given Isosorbide Mononitrate (Imdur) 30 mg PO BID [facility] Last Admin: 05/11/18 21:59 Dose: 30 mg Lactulose (Chronulac, Cephulac) 26.666 gm PO DAILY PRN PRN PRN Reason: Constipation Losartan Potassium (Cozaar) 50 mg PO BID [facility] Last Admin: 05/11/18 21:59 Dose: 50 mg Nutritional Formula (Lactose Free) (Ensure Clear) 120 ml PO TIDCM [facility] Last Admin: 05/12/18 12:31 Dose: 120 ml Pantoprazole Sodium (Protonix) 40 mg PO BID [facility] Last Admin: 05/11/18 21:58 Dose: 40 mg Pramipexole Dihydrochloride (Mirapex) 0.25 mg PO QHS [facility] Last Admin: 05/11/18 21:59 Dose: 0.25 mg Sevelamer Carbonate (Renvela) 1,600 mg PO TIDCM [facility] Last Admin: 05/12/18 11:48 Dose: Not Given Sodium Chloride () 5 - 15 ml IV UD PRN PRN Reason: SALINE FLUSH Last Admin: 05/11/18 05:03 Dose: 10 ml - Past Medical History Past Medical History (Chronic Problems): Chronic Problems (Last Updated 05/11/18 @ 10:46 by Chaim Jauregui DO) Ascites (Chronic) Hypervolemia (Chronic) Fracture of fifth metatarsal bone of right foot (Chronic) Other specified peripheral vascular diseases (Chronic) Afib (Chronic) Congenital coronary artery anomaly (Chronic) S/P PTCA (percutaneous transluminal coronary angioplasty) (Chronic) NSTEMI (non-ST elevated myocardial infarction) (Chronic) Bradycardia (Chronic) CAD (coronary artery disease) (Chronic) Diabetes mellitus, type II (Chronic) Hyperlipidemia (Chronic) Hypothyroidism (Chronic) Anemia in chronic kidney disease (Chronic) Hypertension (Chronic) End stage renal disease on dialysis (Chronic) - Past Surgical History Surgical History: - - Left upper extremity fistula, cholecystectomy, back surgery, colon resection with history of diverticulitis, hysterectomy, appendectomy, right knee surgery, right total knee replacement, right foot surgery, left knee surgery, left foot surgery, PCI. - Social History Marital Status: Smoking Status: Former smoker Alcohol: None Drugs: None - Family History Maternal Family History: Family History (Last Updated 08/21/17 @ 14:36 by Pat Gomez) Sister Diabetes Hypertension History Items: Cancer - uterine Paternal Family History: Family History (Last Updated 08/21/17 @ 14:36 by Pat Gomez) Sister Diabetes Hypertension History Items: Cancer Sibling Family History: Family History (Last Updated 08/21/17 @ 14:36 by Pat Gomez) Sister Diabetes Hypertension History Items: Diabetes Review of Systems Constitutional: Reports: Anorexia, Weakness, Fatigue. Denies: Chills, Fever Respiratory: Denies: Cough, Shortness of Breath Gastrointestinal: Reports: Abdominal Pain, Constipation, Hematochezia, Melena. Denies: Nausea, Vomiting Genitourinary: Denies: Dysuria Musculoskeletal: Reports: Leg Pain Skin: Denies: Rash Neurological: Denies: Tremor, Seizures Hematologic/ Lymphatic: Reports: Anemia. Denies: Hx of blood clot Patient Problems: Active and Suspected Problems (Last Updated 05/11/18 @ 10:46 by Chaim Jauregui DO) Acute blood loss anemia (Acute) Abnormal laboratory test (Acute) - Physical Exam General: Alert, Oriented x3, Cooperative, No apparent distress, - - gen weakness, debilitated Lungs: Clear to auscultation Cardiovascular: Regular rate Abdomen: Bowel Sounds Present, Soft, Non Tender, Distended - mild Extremities: Edema - mild Skin: No rashes Psych/Mental Status: Normal Affect, Alert and oriented to time, place, person, mood and affect Vital Signs Temp Pulse Resp BP Pulse Ox 97.6 F L 63 18 130/46 H 99 05/12/18 09:20 05/12/18 09:20 05/12/18 09:20 05/12/18 09:20 05/12/18 09:20 Oxygen Flow Rate (L/min) 2 Oxygen Delivery Method Room Air Weight: 86.137 kg Body Mass Index (BMI) 31.6 Finger Stick Blood Glucose 99 Intake and Output for Last 24 Hours 05/10/18 05/11/18 05/12/18 23:59 23:59 23:59 Intake Total 0 / 0 2396 / 2396 3400 / 3400 Output Total 1600 / 1600 Balance 0 / 0 2396 / 2396 1800 / 1800 Laboratory Tests Past 24 Hrs 05/12/18 05/12/18 05/12/18 06:32 06:32 06:32 WBC Cancelled Corrected WBC Cancelled RBC Cancelled Hgb Cancelled Hct Cancelled MCV Cancelled MCH Cancelled MCHC Cancelled RDW Cancelled RDW Differential Cancelled Plt Count Cancelled MPV Cancelled Immature Gran % (Auto) Cancelled Neut % (Auto) Cancelled Lymph % (Auto) Cancelled [place] % (Auto) Cancelled Eos % (Auto) Cancelled Baso % (Auto) Cancelled Immature Gran # (Auto) Cancelled Absolute Neuts (auto) Cancelled Absolute Lymphs (auto) Cancelled Absolute Monos (auto) Cancelled Total Counted Cancelled Neutrophils % (Manual) Cancelled Band Neutrophils % Cancelled Lymphocytes % (Manual) Cancelled Monocytes % (Manual) Cancelled Eosinophils % (Manual) Cancelled Basophils % (Manual) Cancelled Metamyelocytes % Cancelled Myelocytes % Cancelled Promyelocytes % Cancelled Blast Cells % Cancelled Plasma Cell % (Manual) Cancelled Other Cells % Cancelled Lymphocytes # Cancelled Nucleated RBCs/100 WBC Cancelled Differential Comment Cancelled Diff Path Review Cancelled Hypersegmented Neuts Cancelled Atypical Lymphocytes Cancelled Reactive Lymphocytes Cancelled Smudge Cells Cancelled Eosinophilia # Cancelled Basophilia # Cancelled Toxic Granulation Cancelled Dohle Bodies Cancelled Celestina Rods Cancelled Platelet Estimate Cancelled Plt Morphology Comment Cancelled RBC Morphology Cancelled Polychromasia Cancelled Hypochromasia Cancelled Poikilocytosis Cancelled Basophilic Stippling Cancelled Anisocytosis Cancelled Microcytosis Cancelled Macrocytosis Cancelled Spherocytes Cancelled Sickle Cells Cancelled Target Cells Cancelled Tear Drop Cells Cancelled Ovalocytes Cancelled Stomatocytes Cancelled [place] Bodies Cancelled [place] Cells Cancelled Bite Cells Cancelled Acanthocytes (Spur) Cancelled Rouleaux Cancelled Schistocytes Cancelled Sodium 134 L Potassium 4.5 Chloride 96 L Carbon Dioxide 27.0 Anion Gap 11 BUN 27 H Creatinine 3.37 H Estim Creat Clear Calc 12.98 Est GFR (MDRD) Af Amer 17 L Est GFR (MDRD) Non-Af 14 L BUN/Creatinine Ratio 8.0 L Glucose 108 H Hemoglobin A1c Cancelled Calcium 8.3 L 05/12/18 05/12/18 09:36 09:36 WBC 2.1 L Corrected WBC RBC 2.73 L Hgb 7.4 L Hct 24.5 L MCV 89.7 MCH 27.1 MCHC 30.2 L RDW 19.4 H RDW Differential 64.0 H Plt Count 64 L MPV 9.0 Immature Gran % (Auto) 0.000 Neut % (Auto) 44.2 L Lymph % (Auto) 40.4 [place] % (Auto) 10.6 H Eos % (Auto) 3.4 Baso % (Auto) 1.4 H Immature Gran # (Auto) Absolute Neuts (auto) 0.9 L Absolute Lymphs (auto) 0.84 Absolute Monos (auto) Total Counted Not Reportable Neutrophils % (Manual) Band Neutrophils % Lymphocytes % (Manual) Monocytes % (Manual) Eosinophils % (Manual) Basophils % (Manual) Metamyelocytes % Myelocytes % Promyelocytes % Blast Cells % Plasma Cell % (Manual) Other Cells % Lymphocytes # Nucleated RBCs/100 WBC Differential Comment Diff Path Review Hypersegmented Neuts Atypical Lymphocytes Reactive Lymphocytes Smudge Cells Eosinophilia # Basophilia # Toxic Granulation Dohle Bodies Celestina Rods Platelet Estimate Plt Morphology Comment RBC Morphology Polychromasia Hypochromasia Poikilocytosis Basophilic Stippling Anisocytosis Microcytosis Macrocytosis Spherocytes Sickle Cells Target Cells Tear Drop Cells Ovalocytes Stomatocytes [place] Bodies [place] Cells Bite Cells Acanthocytes (Spur) Rouleaux Schistocytes Sodium Potassium Chloride Carbon Dioxide Anion Gap BUN Creatinine Estim Creat Clear Calc Est GFR (MDRD) Af Amer Est GFR (MDRD) Non-Af BUN/Creatinine Ratio Glucose Hemoglobin A1c 5.5 Calcium POC Glucose 05/12/18 05/12/18 05/11/18 12:29 06:41 23:49 POC Glucose 107 119 H 113 H 05/11/18 16:23 POC Glucose 238 H Assessment/Plan All Active Problems (Last Updated 05/11/18 @ 10:46 by Chaim Jauregui DO) Acute blood loss anemia (Acute) Abnormal laboratory test (Acute) 1. ESRD HD today due to holiday schedule. Next dialysis on Sun. 2. Acute GI bleed with profound anemia. PRBC as needed. Gen Surgery consulted. Endoscopy today. 3. HTN stable 4. DM2 primary service mgmt 5. Ascites hx paracentesis 6. Hx dietary noncompliance, fluid overload 7. Debility in ECF 8. Pancytopenia etiology unclear.
[2018-05-12 14:38] LABS: Absolute Lymphocyte Count 0.68 X10^3/ul (0.83-4.51); Absolute Neutrophil Count 1.1 X10^3/uL (2.0-7.7); Basophil# 0.04 X10^3/uL; Basophil% 1.9 % (0-1); Eosinophil# 0.05 X10^3/uL; Eosinophils% 2.3 % (0-5); Hematocrit 25.2 % (37-47); Hemoglobin 7.7 g/dl (12.0-15.0); Lymphocyte # 0.68 X10^3/ul (4.0); Lymphocyte % 31.6 % (19-41); Mean Corp Hgb Conc 30.6 g/gl (32-36); Mean Corpuscular Hgb 27.4 pg (27.0-32.0); Mean Corpuscular Volume 89.7 fL (81-99); Mean Platelet Vol. 9.3 fl (6.2-12.0); Monocyte# 0.33 X10^3/uL; Monocyte% 15.3 % (0-10); Neutrophil # 1.05 X10^3/uL (2.7-7.7); Neutrophil % 48.9 % (47-70); POSITIVE COUNT NO; POSITIVE DIFFERENTIAL NO; POSITIVE MORPHOLOGY NO; Platelet Count 77 K/mm3 (150-450); RBC Distribution Width CV 19.3 % (11.6-14.6); RBC Distribution Width SD 63.1 fl (35.1-43.9); Red Blood Count 2.81 M/mm3 (4.2-5.4); White Blood Count 2.2 K/mm3 (4.4-11.0)
--- NOTE | 2018-05-12 14:39 | CON.PCM_ITS ---
Consultation - Renal 05/12/18 PCP/ Referring MD: Requesting physician: [] Primary care physician: Allie Lund DO Reason for Consultation:: ESRD HD MWF renal mgmt - History of Present Illness History of Present Illness: The patient is a 73 year old F with ESRD on HD MWF admitted for GI bleed with hgb down to 6.7g drawn at dialysis center Sunday. She underwent endoscopy this morning. Received prbc on admit. Denies nausea, vomiting. Has abdominal discomfort. Hx GI bleed with multiple hospitalizations. Hx paracentesis for ascites. She has noncompliance with diet, chronic fluid overload, high interdialytic fluid gains. She is currently at [facility] since last hospitalization in March for weakness, falls due to to elevated potassium. She was seen on dialysis earlier today. Dialysis scheduled today due to holiday. Her next dialysis scheduled for Sunday. - Allergies Allergies: Allergies lisinopril Allergy (Verified 05/10/18 17:08) Swelling nebivolol HCl [From Bystolic] Adverse Reaction (Verified 05/10/18 17:08) bradycardia BRADYCARDIA - Current Medications Current Medications: Current Medications Acetaminophen (Tylenol) 500 mg PO Q6H PRN PRN PRN Reason: mild pain/fever Acetaminophen (Tylenol) 650 mg PO Q6H PRN PRN PRN Reason: Mild Pain (1-3)/Temp > 100.7 F Last Admin: 05/10/18 23:15 Dose: 650 mg Hydrocodone Bitart/Acetaminophen (Volcano 5mg-325mg) 1 tablet PO Q6H PRN PRN PRN Reason: SEVERE PAIN (6-10/10) Last Admin: 05/12/18 12:24 Dose: 1 tablet Aspirin (Ecotrin) 81 mg PO DAILY@0800 REPLACED BY [facility] Last Admin: 05/11/18 08:58 Dose: 81 mg Atorvastatin Calcium (Lipitor) 80 mg PO QHS REPLACED BY [facility] Last Admin: 05/11/18 21:59 Dose: 80 mg Calcium Acetate (Phoslo Gel Cap) 2,001 mg PO TIDAC REPLACED BY [facility] Last Admin: 05/12/18 11:48 Dose: Not Given Carvedilol (Coreg) 12.5 mg PO BID REPLACED BY [facility] Last Admin: 05/11/18 21:59 Dose: 12.5 mg Clopidogrel Bisulfate (Plavix) 75 mg PO DAILY REPLACED BY [facility] Last Admin: 05/11/18 09:01 Dose: 75 mg Docusate Calcium (Surfak) 240 mg PO BID REPLACED BY [facility] Last Admin: 05/12/18 12:31 Dose: Not Given Doxazosin Mesylate (Cardura) 8 mg PO QHS REPLACED BY [facility] Last Admin: 05/11/18 22:00 Dose: 8 mg Gabapentin (Neurontin) 100 mg PO TIDCM REPLACED BY [facility] Last Admin: 05/12/18 11:48 Dose: Not Given Insulin Human Lispro (Humalog Kwikpen (Bkc)) 0 unit SC Q6 REPLACED BY [facility]; Protocol Last Admin: 05/12/18 12:30 Dose: Not Given Isosorbide Mononitrate (Imdur) 30 mg PO BID REPLACED BY [facility] Last Admin: 05/11/18 21:59 Dose: 30 mg Lactulose (Chronulac, Cephulac) 26.666 gm PO DAILY PRN PRN PRN Reason: Constipation Losartan Potassium (Cozaar) 50 mg PO BID REPLACED BY [facility] Last Admin: 05/11/18 21:59 Dose: 50 mg Nutritional Formula (Lactose Free) (Ensure Clear) 120 ml PO TIDCM REPLACED BY [facility] Last Admin: 05/12/18 12:31 Dose: 120 ml Pantoprazole Sodium (Protonix) 40 mg PO BID REPLACED BY [facility] Last Admin: 05/11/18 21:58 Dose: 40 mg Pramipexole Dihydrochloride (Mirapex) 0.25 mg PO QHS REPLACED BY [facility] Last Admin: 05/11/18 21:59 Dose: 0.25 mg Sevelamer Carbonate (Renvela) 1,600 mg PO TIDCM REPLACED BY [facility] Last Admin: 05/12/18 11:48 Dose: Not Given Sodium Chloride () 5 - 15 ml IV UD PRN PRN Reason: SALINE FLUSH Last Admin: 05/11/18 05:03 Dose: 10 ml - Past Medical History Past Medical History (Chronic Problems): Chronic Problems (Last Updated 05/11/18 @ 10:46 by Chaim Jauregui DO) Ascites (Chronic) Hypervolemia (Chronic) Fracture of fifth metatarsal bone of right foot (Chronic) Other specified peripheral vascular diseases (Chronic) Afib (Chronic) Congenital coronary artery anomaly (Chronic) S/P PTCA (percutaneous transluminal coronary angioplasty) (Chronic) NSTEMI (non-ST elevated myocardial infarction) (Chronic) Bradycardia (Chronic) CAD (coronary artery disease) (Chronic) Diabetes mellitus, type II (Chronic) Hyperlipidemia (Chronic) Hypothyroidism (Chronic) Anemia in chronic kidney disease (Chronic) Hypertension (Chronic) End stage renal disease on dialysis (Chronic) - Past Surgical History Surgical History: - - Left upper extremity fistula, cholecystectomy, back surgery, colon resection with history of diverticulitis, hysterectomy, appendectomy, right knee surgery, right total knee replacement, right foot surgery, left knee surgery, left foot surgery, PCI. - Social History Marital Status: Smoking Status: Former smoker Alcohol: None Drugs: None - Family History Maternal Family History: Family History (Last Updated 08/21/17 @ 14:36 by Pat Gomez) Sister Diabetes Hypertension History Items: Cancer - uterine Paternal Family History: Family History (Last Updated 08/21/17 @ 14:36 by Pat Gomez) Sister Diabetes Hypertension History Items: Cancer Sibling Family History: Family History (Last Updated 08/21/17 @ 14:36 by Pat Gomez) Sister Diabetes Hypertension History Items: Diabetes Review of Systems Constitutional: Reports: Anorexia, Weakness, Fatigue. Denies: Chills, Fever Respiratory: Denies: Cough, Shortness of Breath Gastrointestinal: Reports: Abdominal Pain, Constipation, Hematochezia, Melena. Denies: Nausea, Vomiting Genitourinary: Denies: Dysuria Musculoskeletal: Reports: Leg Pain Skin: Denies: Rash Neurological: Denies: Tremor, Seizures Hematologic/ Lymphatic: Reports: Anemia. Denies: Hx of blood clot Patient Problems: Active and Suspected Problems (Last Updated 05/11/18 @ 10:46 by Chaim Jauregui DO) Acute blood loss anemia (Acute) Abnormal laboratory test (Acute) - Physical Exam General: Alert, Oriented x3, Cooperative, No apparent distress, - - gen weakness, debilitated Lungs: Clear to auscultation Cardiovascular: Regular rate Abdomen: Bowel Sounds Present, Soft, Non Tender, Distended - mild Extremities: Edema - mild Skin: No rashes Psych/Mental Status: Normal Affect, Alert and oriented to time, place, person, mood and affect Vital Signs Temp Pulse Resp BP Pulse Ox 97.6 F L 63 18 130/46 H 99 05/12/18 09:20 05/12/18 09:20 05/12/18 09:20 05/12/18 09:20 05/12/18 09:20 Oxygen Flow Rate (L/min) 2 Oxygen Delivery Method Room Air Weight: 86.137 kg Body Mass Index (BMI) 31.6 Finger Stick Blood Glucose 99 Intake and Output for Last 24 Hours 05/10/18 05/11/18 05/12/18 23:59 23:59 23:59 Intake Total 0 / 0 2396 / 2396 3400 / 3400 Output Total 1600 / 1600 Balance 0 / 0 2396 / 2396 1800 / 1800 Laboratory Tests Past 24 Hrs 05/12/18 05/12/18 05/12/18 06:32 06:32 06:32 WBC Cancelled Corrected WBC Cancelled RBC Cancelled Hgb Cancelled Hct Cancelled MCV Cancelled MCH Cancelled MCHC Cancelled RDW Cancelled RDW Differential Cancelled Plt Count Cancelled MPV Cancelled Immature Gran % (Auto) Cancelled Neut % (Auto) Cancelled Lymph % (Auto) Cancelled [place] % (Auto) Cancelled Eos % (Auto) Cancelled Baso % (Auto) Cancelled Immature Gran # (Auto) Cancelled Absolute Neuts (auto) Cancelled Absolute Lymphs (auto) Cancelled Absolute Monos (auto) Cancelled Total Counted Cancelled Neutrophils % (Manual) Cancelled Band Neutrophils % Cancelled Lymphocytes % (Manual) Cancelled Monocytes % (Manual) Cancelled Eosinophils % (Manual) Cancelled Basophils % (Manual) Cancelled Metamyelocytes % Cancelled Myelocytes % Cancelled Promyelocytes % Cancelled Blast Cells % Cancelled Plasma Cell % (Manual) Cancelled Other Cells % Cancelled Lymphocytes # Cancelled Nucleated RBCs/100 WBC Cancelled Differential Comment Cancelled Diff Path Review Cancelled Hypersegmented Neuts Cancelled Atypical Lymphocytes Cancelled Reactive Lymphocytes Cancelled Smudge Cells Cancelled Eosinophilia # Cancelled Basophilia # Cancelled Toxic Granulation Cancelled Dohle Bodies Cancelled Celestina Rods Cancelled Platelet Estimate Cancelled Plt Morphology Comment Cancelled RBC Morphology Cancelled Polychromasia Cancelled Hypochromasia Cancelled Poikilocytosis Cancelled Basophilic Stippling Cancelled Anisocytosis Cancelled Microcytosis Cancelled Macrocytosis Cancelled Spherocytes Cancelled Sickle Cells Cancelled Target Cells Cancelled Tear Drop Cells Cancelled Ovalocytes Cancelled Stomatocytes Cancelled [place] Bodies Cancelled [place] Cells Cancelled Bite Cells Cancelled Acanthocytes (Spur) Cancelled Rouleaux Cancelled Schistocytes Cancelled Sodium 134 L Potassium 4.5 Chloride 96 L Carbon Dioxide 27.0 Anion Gap 11 BUN 27 H Creatinine 3.37 H Estim Creat Clear Calc 12.98 Est GFR (MDRD) Af Amer 17 L Est GFR (MDRD) Non-Af 14 L BUN/Creatinine Ratio 8.0 L Glucose 108 H Hemoglobin A1c Cancelled Calcium 8.3 L 05/12/18 05/12/18 09:36 09:36 WBC 2.1 L Corrected WBC RBC 2.73 L Hgb 7.4 L Hct 24.5 L MCV 89.7 MCH 27.1 MCHC 30.2 L RDW 19.4 H RDW Differential 64.0 H Plt Count 64 L MPV 9.0 Immature Gran % (Auto) 0.000 Neut % (Auto) 44.2 L Lymph % (Auto) 40.4 [place] % (Auto) 10.6 H Eos % (Auto) 3.4 Baso % (Auto) 1.4 H Immature Gran # (Auto) Absolute Neuts (auto) 0.9 L Absolute Lymphs (auto) 0.84 Absolute Monos (auto) Total Counted Not Reportable Neutrophils % (Manual) Band Neutrophils % Lymphocytes % (Manual) Monocytes % (Manual) Eosinophils % (Manual) Basophils % (Manual) Metamyelocytes % Myelocytes % Promyelocytes % Blast Cells % Plasma Cell % (Manual) Other Cells % Lymphocytes # Nucleated RBCs/100 WBC Differential Comment Diff Path Review Hypersegmented Neuts Atypical Lymphocytes Reactive Lymphocytes Smudge Cells Eosinophilia # Basophilia # Toxic Granulation Dohle Bodies Celestina Rods Platelet Estimate Plt Morphology Comment RBC Morphology Polychromasia Hypochromasia Poikilocytosis Basophilic Stippling Anisocytosis Microcytosis Macrocytosis Spherocytes Sickle Cells Target Cells Tear Drop Cells Ovalocytes Stomatocytes [place] Bodies [place] Cells Bite Cells Acanthocytes (Spur) Rouleaux Schistocytes Sodium Potassium Chloride Carbon Dioxide Anion Gap BUN Creatinine Estim Creat Clear Calc Est GFR (MDRD) Af Amer Est GFR (MDRD) Non-Af BUN/Creatinine Ratio Glucose Hemoglobin A1c 5.5 Calcium POC Glucose 05/12/18 05/12/18 05/11/18 12:29 06:41 23:49 POC Glucose 107 119 H 113 H 05/11/18 16:23 POC Glucose 238 H Assessment/Plan All Active Problems (Last Updated 05/11/18 @ 10:46 by Chaim Jauregui DO) Acute blood loss anemia (Acute) Abnormal laboratory test (Acute) 1. ESRD HD today due to holiday schedule. Next dialysis on Sun. 2. Acute GI bleed with profound anemia. PRBC as needed. Gen Surgery consulted. Endoscopy today. 3. HTN stable 4. DM2 primary service mgmt 5. Ascites hx paracentesis 6. Hx dietary noncompliance, fluid overload 7. Debility in ECF 8. Pancytopenia etiology unclear.
[2018-05-12] MEDS: Gabapentin 100 MG Capsule PO (16:02)
[2018-05-12] MEDS: SEVELAMER CARBONATE 800 MG TABLET 1600 MG PO (16:03)
[2018-05-12] MEDS: Calcium Acetate 667 MG Capsule 2001 MG PO (16:04)
[2018-05-12] MEDS: Aspirin E.C. 81 MG Tablet PO (16:05)
[2018-05-12] MEDS: Nepro Liquid 120 ML LIQUID PO ×2 (16:25→22:48)
[2018-05-12 16:36] LABS: Bedside Glucose 123 mg/dL (70-110)
[2018-05-12] MEDS: oxyCODONE 5 MG Tablet 7.5 MG PO (18:18)
[2018-05-12] MEDS: Acetaminophen 325 MG Tablet PO (18:19)
[2018-05-12 21:55] LABS: Bedside Glucose 182 mg/dL (70-110)
[2018-05-12] MEDS: Doxazosin 4 MG Tablet 8 MG PO (22:35)
[2018-05-12] MEDS: Losartan Potassium 50 MG Tablet PO (22:36)
[2018-05-12] MEDS: Isosorbide Mononitrate 30 MG Tablet PO (22:36)
[2018-05-12] MEDS: Atorvastatin Calcium 80 MG Tablet PO (22:36)
[2018-05-12] MEDS: Pramipexole Di-HCl 0.25 MG Tablet PO (22:36)
[2018-05-12] MEDS: Pantoprazole Sodium 40 MG Tablet PO (22:36)
[2018-05-12] MEDS: Carvedilol 12.5 MG Tablet PO (22:36)
[2018-05-13] VITALS (8 sets, daily range): BP systolic 109–135; BP diastolic 43–58; PULSE 56–71; RESP 16–18; TEMP 36.6–36.9; O2SAT 93–96
[2018-05-13] MEDS: Acetaminophen 325 MG Tablet PO (00:19)
[2018-05-13] MEDS: oxyCODONE 5 MG Tablet 7.5 MG PO ×3 (00:20→16:58)
[2018-05-13] MEDS: Insulin Lispro 100 UNIT/ML INSULN.PEN SC ×3 (00:25→17:48)
[2018-05-13 00:36] LABS: Bedside Glucose 184 mg/dL (70-110)
[2018-05-13 06:41] LABS: Anion Gap 7 (5-15); BUN 15 mg/dL (7-18); BUN/Creat Ratio 5.7 RATIO (10-20); Chloride 97 mmol/L (98-107); Creatinine, Serum 2.63 mg/dL (0.55-1.02); EST Glomerular Filtration Rate 19 mL/min (>60); Est Glom Filt Rate - Afr Amer 23 mL/min (>60); Estimated Creatinine Clearance 16.63 ml/min; Glucose 125 mg/dL (74-106); Potassium 3.7 mmol/L (3.5-5.1); Sodium Level 134 mmol/L (136-145)
[2018-05-13 06:47] LABS: Absolute Lymphocyte Count 0.86 X10^3/ul (0.83-4.51); Absolute Neutrophil Count 0.9 X10^3/uL (2.0-7.7); Basophil# 0.03 X10^3/uL; Basophil% 1.5 % (0-1); Eosinophil# 0.05 X10^3/uL; Eosinophils% 2.4 % (0-5); Hematocrit 24.6 % (37-47); Hemoglobin 7.2 g/dl (12.0-15.0); Lymphocyte # 0.86 X10^3/ul (4.0); Mean Corp Hgb Conc 29.3 g/gl (32-36); Mean Corpuscular Hgb 27.5 pg (27.0-32.0); Mean Corpuscular Volume 93.9 fL (81-99); Monocyte% 9.8 % (0-10); Neutrophil # 0.91 X10^3/uL (2.7-7.7); Neutrophil % 44.3 % (47-70); Platelet Count 77 K/mm3 (150-450); RBC Distribution Width CV 18.8 % (11.6-14.6); RBC Distribution Width SD 61.6 fl (35.1-43.9); Red Blood Count 2.62 M/mm3 (4.2-5.4); White Blood Count 2.1 K/mm3 (4.4-11.0)
[2018-05-13 06:50] LABS: Bedside Glucose 126 mg/dL (70-110)
[2018-05-13 06:52] LABS: Differential Indicated SCAN CRITERIA MET; POSITIVE COUNT NO; POSITIVE DIFFERENTIAL YES; POSITIVE MORPHOLOGY NO
[2018-05-13] MEDS: Aspirin E.C. 81 MG Tablet PO (07:50)
[2018-05-13] MEDS: Calcium Acetate 667 MG Capsule 2001 MG PO ×3 (07:50→16:59)
[2018-05-13] MEDS: Gabapentin 100 MG Capsule PO ×3 (07:50→16:59)
--- NOTE | 2018-05-13 09:07 | PN.SURG_ITS ---
Patient Problems: Active and Suspected Problems (Last Updated 05/11/18 @ 10:46 by Chaim Jauregui DO) Acute blood loss anemia (Acute) Abnormal laboratory test (Acute) Subjective: noted one bloody bowel movement last night - Physical Exam General: Alert, Oriented x3, Cooperative Lungs: Clear to auscultation, Normal air movement Cardiovascular: Irregular Rate Abdomen: Bowel Sounds Present, Soft, Non Tender Vital Signs Temp Pulse Resp BP Pulse Ox 98.2 F 60 16 109/43 L 93 05/13/18 07:34 05/13/18 07:34 05/13/18 07:34 05/13/18 07:34 05/13/18 07:34 Oxygen Flow Rate (L/min) 2 Oxygen Delivery Method Room Air Weight: 86.137 kg Body Mass Index (BMI) 31.6 Finger Stick Blood Glucose 99 Intake and Output for Last 24 Hours 05/11/18 05/12/18 05/13/18 23:59 23:59 23:59 Intake Total 2396 / 2396 4020 / 4020 350 / 350 Output Total 1600 / 1600 Balance 2396 / 2396 2420 / 2420 350 / 350 Laboratory Tests Past 24 Hrs 05/12/18 05/12/18 05/12/18 09:36 09:36 14:19 WBC 2.1 L 2.2 L RBC 2.73 L 2.81 L Hgb 7.4 L 7.7 L Hct 24.5 L 25.2 L MCV 89.7 89.7 MCH 27.1 27.4 MCHC 30.2 L 30.6 L RDW 19.4 H 19.3 H RDW Differential 64.0 H 63.1 H Plt Count 64 L 77 L MPV 9.0 9.3 Immature Gran % (Auto) 0.000 0.000 Neut % (Auto) 44.2 L 48.9 Lymph % (Auto) 40.4 31.6 [place] % (Auto) 10.6 H 15.3 H Eos % (Auto) 3.4 2.3 Baso % (Auto) 1.4 H 1.9 H Absolute Neuts (auto) 0.9 L 1.1 L Absolute Lymphs (auto) 0.84 0.68 L Total Counted Not Reportable Not Reportable Differential Comment Sodium Potassium Chloride Carbon Dioxide Anion Gap BUN Creatinine Estim Creat Clear Calc Est GFR (MDRD) Af Amer Est GFR (MDRD) Non-Af BUN/Creatinine Ratio Glucose Hemoglobin A1c 5.5 Calcium 05/13/18 05/13/18 06:00 06:00 WBC 2.1 L RBC 2.62 L Hgb 7.2 L Hct 24.6 L MCV 93.9 MCH 27.5 MCHC 29.3 L RDW 18.8 H RDW Differential 61.6 H Plt Count 77 L MPV 10.0 Immature Gran % (Auto) 0.000 Neut % (Auto) 44.3 L Lymph % (Auto) 42.0 H [place] % (Auto) 9.8 Eos % (Auto) 2.4 Baso % (Auto) 1.5 H Absolute Neuts (auto) 0.9 L Absolute Lymphs (auto) 0.86 Total Counted Not Reportable Differential Comment Sodium 134 L Potassium 3.7 Chloride 97 L Carbon Dioxide 30.0 Anion Gap 7 BUN 15 Creatinine 2.63 H Estim Creat Clear Calc 16.63 Est GFR (MDRD) Af Amer 23 L Est GFR (MDRD) Non-Af 19 L BUN/Creatinine Ratio 5.7 L Glucose 125 H Hemoglobin A1c Calcium 8.0 L POC Glucose 05/13/18 05/13/18 05/12/18 06:30 00:23 21:48 POC Glucose 126 H 184 H 182 H 05/12/18 05/12/18 16:12 12:29 POC Glucose 123 H 107 Medical Necessity - Tobacco Use Smoking Status: Former smoker Tobacco Use: Non-smoker Assessment/Plan All Active Problems (Last Updated 05/11/18 @ 10:46 by Chaim Jauregui DO) Acute blood loss anemia (Acute) Abnormal laboratory test (Acute) rectal bleeding, decrease in hemoglobin, allegedly normal upper and lower endoscopy 3 months previously, thrombocytopenia, multiple medical conditions. Patient received 1 unit of packed red cells with an initial appropriate increase in her hemoglobin. Her hemoglobin decreased slightly-I recommend transfusion of one additional packed red cell. Upper and lower endoscopy performed yesterday. upper endoscopy demonstrated some diffuse gastritis with no signs of active bleeding and distal esophagitis. Colonoscopy demonstrated what looked like some older blood clots all the way around the base of the cecum suggestive of proximal bleeding. No blood or irritation in the terminal ileum. The patient had diverticulosis without signs of diverticular bleed. I recommend bleeding scan. etiology of ascites seems to be consistent with anasarca/protein malnutrition when reviewing previous CT scan that does not demonstrate cirrhotic changes or splenomegaly. We will carefully checked for varices during upper endoscopy - no varices were noted. Patient anticipating additional paracentesis this hospitalization.
--- NOTE | 2018-05-13 09:25 | PCM.PN.HOSP ---
Patient Problems: Active and Suspected Problems (Last Updated 05/11/18 @ 10:46 by Chaim Jauregui DO) Acute blood loss anemia (Acute) Abnormal laboratory test (Acute) Subjective: had some small amount of blood per rectum today, but overall improved in quantity and frequency. still with LE edema and abdominal distention. Vitals/I&O's: Vital Signs Temp Pulse Resp BP Pulse Ox 36.8 C 60 16 109/43 L 93 05/13/18 07:34 05/13/18 07:34 05/13/18 07:34 05/13/18 07:34 05/13/18 07:34 Oxygen Flow Rate (L/min) 2 Oxygen Delivery Method Room Air Weight: 86.137 kg Body Mass Index (BMI) 31.6 Finger Stick Blood Glucose 99 Intake and Output for Last 24 Hours 05/11/18 05/12/18 05/13/18 23:59 23:59 23:59 Intake Total 2396 / 2396 4020 / 4020 350 / 350 Output Total 1600 / 1600 Balance 2396 / 2396 2420 / 2420 350 / 350 General: Alert, Cooperative, No apparent distress HEENT: Atraumatic, Normocephalic Oral: Moist Mucosa, No Gingival or Mucosal Lesions/ Ulcerations Neck: No Nodes, Thyroid Normal Size and Texture Lungs: Clear to auscultation, Normal air movement, No rhonchi, No wheeze Cardiovascular: Regular rate, Regular Rhythm, Normal S1, Normal S2 Abdomen: Bowel Sounds Present, Soft, Non Tender, Distended Extremities: No Calf Tenderness, Edema Skin: No rashes, No breakdown Psych/Mental Status: Normal Affect, Appropriate Laboratory Results 05/12/18 09:36: WBC 2.1 L, RBC 2.73 L, Hgb 7.4 L, Hct 24.5 L, MCV 89.7, MCH 27.1, MCHC 30.2 L, RDW 19.4 H, RDW Differential 64.0 H, Plt Count 64 L, MPV 9.0, Immature Gran % (Auto) 0.000, Neut % (Auto) 44.2 L, Lymph % (Auto) 40.4, [place] % (Auto) 10.6 H, Eos % (Auto) 3.4, Baso % (Auto) 1.4 H, Absolute Neuts (auto) 0.9 L, Absolute Lymphs (auto) 0.84, Total Counted Not Reportable, Differential Comment 05/12/18 09:36: Hemoglobin A1c 5.5 05/12/18 12:29: POC Glucose 107 05/12/18 14:19: WBC 2.2 L, RBC 2.81 L, Hgb 7.7 L, Hct 25.2 L, MCV 89.7, MCH 27.4, MCHC 30.6 L, RDW 19.3 H, RDW Differential 63.1 H, Plt Count 77 L, MPV 9.3, Immature Gran % (Auto) 0.000, Neut % (Auto) 48.9, Lymph % (Auto) 31.6, [place] % (Auto) 15.3 H, Eos % (Auto) 2.3, Baso % (Auto) 1.9 H, Absolute Neuts (auto) 1.1 L, Absolute Lymphs (auto) 0.68 L, Total Counted Not Reportable 05/12/18 16:12: POC Glucose 123 H 05/12/18 21:48: POC Glucose 182 H 05/13/18 00:23: POC Glucose 184 H 05/13/18 06:00: WBC 2.1 L, RBC 2.62 L, Hgb 7.2 L, Hct 24.6 L, MCV 93.9, MCH 27.5, MCHC 29.3 L, RDW 18.8 H, RDW Differential 61.6 H, Plt Count 77 L, MPV 10.0, Immature Gran % (Auto) 0.000, Neut % (Auto) 44.3 L, Lymph % (Auto) 42.0 H, [place] % (Auto) 9.8, Eos % (Auto) 2.4, Baso % (Auto) 1.5 H, Absolute Neuts (auto) 0.9 L, Absolute Lymphs (auto) 0.86, Total Counted Not Reportable 05/13/18 06:00: Sodium 134 L, Potassium 3.7, Chloride 97 L, Carbon Dioxide 30.0, Anion Gap 7, BUN 15, Creatinine 2.63 H, Estim Creat Clear Calc 16.63, Est GFR (MDRD) Af Amer 23 L, Est GFR (MDRD) Non-Af 19 L, BUN/Creatinine Ratio 5.7 L, Glucose 125 H, Calcium 8.0 L 05/13/18 06:30: POC Glucose 126 H Current Medications Acetaminophen (Tylenol) 650 mg PO Q6H PRN PRN PRN Reason: Mild Pain (1-3)/Temp > 100.7 F Last Admin: 05/10/18 23:15 Dose: 650 mg Acetaminophen (Tylenol) 325 mg PO Q6H PRN PRN PRN Reason: PAIN Last Admin: 05/13/18 00:19 Dose: 325 mg Aspirin (Ecotrin) 81 mg PO DAILY@0800 [facility] Last Admin: 05/13/18 07:50 Dose: 81 mg Atorvastatin Calcium (Lipitor) 80 mg PO QHS [facility] Last Admin: 05/12/18 22:36 Dose: 80 mg Calcium Acetate (Phoslo Gel Cap) 2,001 mg PO TIDAC [facility] Last Admin: 05/13/18 07:50 Dose: 2,001 mg Carvedilol (Coreg) 12.5 mg PO BID [facility] Last Admin: 05/12/18 22:36 Dose: 12.5 mg Clopidogrel Bisulfate (Plavix) 75 mg PO DAILY [facility] Last Admin: 05/11/18 09:01 Dose: 75 mg Docusate Calcium (Surfak) 240 mg PO BID [facility] Last Admin: 05/12/18 22:33 Dose: Not Given Doxazosin Mesylate (Cardura) 8 mg PO QHS [facility] Last Admin: 05/12/18 22:35 Dose: 8 mg Gabapentin (Neurontin) 100 mg PO TIDCM [facility] Last Admin: 05/13/18 07:50 Dose: 100 mg Insulin Human Lispro (Humalog Kwikpen (Bkc)) 0 unit SC Q6 [facility]; Protocol Last Admin: 05/13/18 06:31 Dose: Not Given Isosorbide Mononitrate (Imdur) 30 mg PO BID [facility] Last Admin: 05/12/18 22:36 Dose: 30 mg Lactulose (Chronulac, Cephulac) 26.666 gm PO DAILY PRN PRN PRN Reason: Constipation Losartan Potassium (Cozaar) 50 mg PO BID [facility] Last Admin: 05/12/18 22:36 Dose: 50 mg Nutritional Formula (Nepro Carb Steady) 120 ml PO 4X/DAY [facility] Last Admin: 05/12/18 22:48 Dose: 120 ml Oxycodone HCl (Oxyir) 7.5 mg PO Q6H PRN PRN PRN Reason: SEVERE PAIN (6-02/27) Last Admin: 05/13/18 07:49 Dose: 7.5 mg Pantoprazole Sodium (Protonix) 40 mg PO BID [facility] Last Admin: 05/12/18 22:36 Dose: 40 mg Pramipexole Dihydrochloride (Mirapex) 0.25 mg PO QHS [facility] Last Admin: 05/12/18 22:36 Dose: 0.25 mg Sevelamer Carbonate (Renvela) 1,600 mg PO TIDCM [facility] Last Admin: 05/12/18 16:03 Dose: 1,600 mg Sodium Chloride () 5 - 15 ml IV UD PRN PRN Reason: SALINE FLUSH Last Admin: 05/11/18 05:03 Dose: 10 ml Medical Necessity - Tobacco Use Smoking Status: Former smoker Tobacco Use: Non-smoker Assessment/Plan All Active Problems (Last Updated 05/11/18 @ 10:46 by Chaim Jauregui DO) Acute blood loss anemia (Acute) Abnormal laboratory test (Acute) 1. acute blood loss anemia Hg down to 6.6, baseline around 9.6 improved after 2 units PRBCs, will be tranfused another unit today. EGD and colonoscopy showed no obvious source, but blood was noted in cecum (suspected source somewhere in small bowel) Bleeding scan today If bleeding gets worse, may need to transfer to tertiary facility. monitor H/H discussed with patient about bleeding scan: if there is a brisk bleed, then it should pick that up and she will need to be transferred to another facility with IR capability; If negative, then the plan would be to monitor overnight to ensure no further bleeding and stability of H/H 2. GI bleed as above. 3. Anasarca no obvious cirrhosis on US/CTs may be due to pulmonary HTN (per echo on 02/27, RVSP may have been underestimated), malnutrition fluid restrict HD per renal advised pt no indication for paracentesis at this time (would want to be more distended before doing so, currently soft). Discussed risks and benefits of paracentesis with patient including infection and extraction of protein 4. ESRD dialysis per nephrology. last HD on 05.12 5. DVT proph: SCDs 6. Malnutrition moderated complicated overall care consult dietary. 7. Ascites not d/t cirrhosis may be due to her ESRD no indication for paracentesis at this time. However, if it gets worse or she gets symptomatic, then a paracentesis could be done. Informed her that the earliest that the paracentesis could be done is 05/15. she is not having significant discomfort at this time. Code Visit Inpatient E&M: 56517 Subs Hosp L2
[2018-05-13] MEDS: SEVELAMER CARBONATE 800 MG TABLET 1600 MG PO ×3 (09:31→16:59)
--- NOTE | 2018-05-13 09:32 | PN_ITS ---
Patient Problems: Active and Suspected Problems (Last Updated 05/11/18 @ 10:46 by Chaim Jauregui DO) Acute blood loss anemia (Acute) Abnormal laboratory test (Acute) Subjective: had some small amount of blood per rectum today, but overall improved in quantity and frequency. still with LE edema and abdominal distention. Vitals/I&O's: Vital Signs Temp Pulse Resp BP Pulse Ox 36.8 C 60 16 109/43 L 93 05/13/18 07:34 05/13/18 07:34 05/13/18 07:34 05/13/18 07:34 05/13/18 07:34 Oxygen Flow Rate (L/min) 2 Oxygen Delivery Method Room Air Weight: 86.137 kg Body Mass Index (BMI) 31.6 Finger Stick Blood Glucose 99 Intake and Output for Last 24 Hours 05/11/18 05/12/18 05/13/18 23:59 23:59 23:59 Intake Total 2396 / 2396 4020 / 4020 350 / 350 Output Total 1600 / 1600 Balance 2396 / 2396 2420 / 2420 350 / 350 General: Alert, Cooperative, No apparent distress HEENT: Atraumatic, Normocephalic Oral: Moist Mucosa, No Gingival or Mucosal Lesions/ Ulcerations Neck: No Nodes, Thyroid Normal Size and Texture Lungs: Clear to auscultation, Normal air movement, No rhonchi, No wheeze Cardiovascular: Regular rate, Regular Rhythm, Normal S1, Normal S2 Abdomen: Bowel Sounds Present, Soft, Non Tender, Distended Extremities: No Calf Tenderness, Edema Skin: No rashes, No breakdown Psych/Mental Status: Normal Affect, Appropriate Laboratory Results 05/12/18 09:36: WBC 2.1 L, RBC 2.73 L, Hgb 7.4 L, Hct 24.5 L, MCV 89.7, MCH 27.1, MCHC 30.2 L, RDW 19.4 H, RDW Differential 64.0 H, Plt Count 64 L, MPV 9.0, Immature Gran % (Auto) 0.000, Neut % (Auto) 44.2 L, Lymph % (Auto) 40.4, [place] % (Auto) 10.6 H, Eos % (Auto) 3.4, Baso % (Auto) 1.4 H, Absolute Neuts (auto) 0.9 L, Absolute Lymphs (auto) 0.84, Total Counted Not Reportable, Differential Comment 05/12/18 09:36: Hemoglobin A1c 5.5 05/12/18 12:29: POC Glucose 107 05/12/18 14:19: WBC 2.2 L, RBC 2.81 L, Hgb 7.7 L, Hct 25.2 L, MCV 89.7, MCH 27.4, MCHC 30.6 L, RDW 19.3 H, RDW Differential 63.1 H, Plt Count 77 L, MPV 9.3, Immature Gran % (Auto) 0.000, Neut % (Auto) 48.9, Lymph % (Auto) 31.6, [place] % (Auto) 15.3 H, Eos % (Auto) 2.3, Baso % (Auto) 1.9 H, Absolute Neuts (auto) 1.1 L, Absolute Lymphs (auto) 0.68 L, Total Counted Not Reportable 05/12/18 16:12: POC Glucose 123 H 05/12/18 21:48: POC Glucose 182 H 05/13/18 00:23: POC Glucose 184 H 05/13/18 06:00: WBC 2.1 L, RBC 2.62 L, Hgb 7.2 L, Hct 24.6 L, MCV 93.9, MCH 27.5, MCHC 29.3 L, RDW 18.8 H, RDW Differential 61.6 H, Plt Count 77 L, MPV 10.0, Immature Gran % (Auto) 0.000, Neut % (Auto) 44.3 L, Lymph % (Auto) 42.0 H, [place] % (Auto) 9.8, Eos % (Auto) 2.4, Baso % (Auto) 1.5 H, Absolute Neuts (auto) 0.9 L, Absolute Lymphs (auto) 0.86, Total Counted Not Reportable 05/13/18 06:00: Sodium 134 L, Potassium 3.7, Chloride 97 L, Carbon Dioxide 30.0, Anion Gap 7, BUN 15, Creatinine 2.63 H, Estim Creat Clear Calc 16.63, Est GFR (MDRD) Af Amer 23 L, Est GFR (MDRD) Non-Af 19 L, BUN/Creatinine Ratio 5.7 L, Glucose 125 H, Calcium 8.0 L 05/13/18 06:30: POC Glucose 126 H Current Medications Acetaminophen (Tylenol) 650 mg PO Q6H PRN PRN PRN Reason: Mild Pain (1-3)/Temp > 100.7 F Last Admin: 05/10/18 23:15 Dose: 650 mg Acetaminophen (Tylenol) 325 mg PO Q6H PRN PRN PRN Reason: PAIN Last Admin: 05/13/18 00:19 Dose: 325 mg Aspirin (Ecotrin) 81 mg PO DAILY@0800 [facility] Last Admin: 05/13/18 07:50 Dose: 81 mg Atorvastatin Calcium (Lipitor) 80 mg PO QHS [facility] Last Admin: 05/12/18 22:36 Dose: 80 mg Calcium Acetate (Phoslo Gel Cap) 2,001 mg PO TIDAC [facility] Last Admin: 05/13/18 07:50 Dose: 2,001 mg Carvedilol (Coreg) 12.5 mg PO BID [facility] Last Admin: 05/12/18 22:36 Dose: 12.5 mg Clopidogrel Bisulfate (Plavix) 75 mg PO DAILY [facility] Last Admin: 05/11/18 09:01 Dose: 75 mg Docusate Calcium (Surfak) 240 mg PO BID [facility] Last Admin: 05/12/18 22:33 Dose: Not Given Doxazosin Mesylate (Cardura) 8 mg PO QHS [facility] Last Admin: 05/12/18 22:35 Dose: 8 mg Gabapentin (Neurontin) 100 mg PO TIDCM [facility] Last Admin: 05/13/18 07:50 Dose: 100 mg Insulin Human Lispro (Humalog Kwikpen (Bkc)) 0 unit SC Q6 [facility]; Protocol Last Admin: 05/13/18 06:31 Dose: Not Given Isosorbide Mononitrate (Imdur) 30 mg PO BID [facility] Last Admin: 05/12/18 22:36 Dose: 30 mg Lactulose (Chronulac, Cephulac) 26.666 gm PO DAILY PRN PRN PRN Reason: Constipation Losartan Potassium (Cozaar) 50 mg PO BID [facility] Last Admin: 05/12/18 22:36 Dose: 50 mg Nutritional Formula (Nepro Carb Steady) 120 ml PO 4X/DAY [facility] Last Admin: 05/12/18 22:48 Dose: 120 ml Oxycodone HCl (Oxyir) 7.5 mg PO Q6H PRN PRN PRN Reason: SEVERE PAIN (-02/27) Last Admin: 05/13/18 07:49 Dose: 7.5 mg Pantoprazole Sodium (Protonix) 40 mg PO BID [facility] Last Admin: 05/12/18 22:36 Dose: 40 mg Pramipexole Dihydrochloride (Mirapex) 0.25 mg PO QHS [facility] Last Admin: 05/12/18 22:36 Dose: 0.25 mg Sevelamer Carbonate (Renvela) 1,600 mg PO TIDCM [facility] Last Admin: 05/12/18 16:03 Dose: 1,600 mg Sodium Chloride () 5 - 15 ml IV UD PRN PRN Reason: SALINE FLUSH Last Admin: 05/11/18 05:03 Dose: 10 ml Medical Necessity - Tobacco Use Smoking Status: Former smoker Tobacco Use: Non-smoker Assessment/Plan All Active Problems (Last Updated 05/11/18 @ 10:46 by Chaim Jauregui DO) Acute blood loss anemia (Acute) Abnormal laboratory test (Acute) 1. acute blood loss anemia * Hg down to 6.6, baseline around 9.6 * improved after 2 units PRBCs, will be tranfused another unit today. * EGD and colonoscopy showed no obvious source, but blood was noted in cecum (suspected source somewhere in small bowel) * Bleeding scan today * If bleeding gets worse, may need to transfer to tertiary facility. * monitor H/H * discussed with patient about bleeding scan: if there is a brisk bleed, then it should pick that up and she will need to be transferred to another facility with IR capability; If negative, then the plan would be to monitor overnight to ensure no further bleeding and stability of H/H 2. GI bleed * as above. 3. Anasarca * no obvious cirrhosis on US/CTs * may be due to pulmonary HTN (per echo on 02/27, RVSP may have been underestimated), malnutrition * fluid restrict * HD per renal * advised pt no indication for paracentesis at this time (would want to be more distended before doing so, currently soft). Discussed risks and benefits of paracentesis with patient including infection and extraction of protein 4. ESRD * dialysis per nephrology. * last HD on 05.12 5. DVT proph: SCDs 6. Malnutrition * moderated * complicated overall care * consult dietary. 7. Ascites * not d/t cirrhosis * may be due to her ESRD * no indication for paracentesis at this time. However, if it gets worse or she gets symptomatic, then a paracentesis could be done. Informed her that the earliest that the paracentesis could be done is 05/15. * she is not having significant discomfort at this time. Code Visit Inpatient E&M: 77228 Subs Hosp L2
[2018-05-13] MEDS: Losartan Potassium 50 MG Tablet PO ×2 (09:36→22:36)
[2018-05-13] MEDS: Clopidogrel Bisulfate 75 MG Tablet PO (09:36)
[2018-05-13] MEDS: Isosorbide Mononitrate 30 MG Tablet PO ×2 (09:36→22:36)
[2018-05-13] MEDS: Pantoprazole Sodium 40 MG Tablet PO ×2 (09:36→22:36)
[2018-05-13] MEDS: Carvedilol 12.5 MG Tablet PO ×2 (09:36→22:36)
[2018-05-13 10:02] LABS: Pathologist Review Reviewed
--- NOTE | 2018-05-13 10:10 | NURSING ---
PT TO NUCLEAR MED VIA BED.
--- NOTE | 2018-05-13 10:17 | PN.RENAL_ITS ---
Patient Problems: Active and Suspected Problems (Last Updated 05/11/18 @ 10:46 by Chaim Jauregui DO) Acute blood loss anemia (Acute) Abnormal laboratory test (Acute) Subjective: complains of abdominal distension, scheduled for bleeding scan today. - Physical Exam General: Alert, Oriented x3, Cooperative Lungs: Clear to auscultation Cardiovascular: Regular rate Abdomen: Bowel Sounds Present, Soft, Distended, Obese Extremities: Edema - trace Psych/Mental Status: Normal Affect, Alert and oriented to time, place, person, mood and affect Vital Signs Temp Pulse Resp BP Pulse Ox 98.2 F 60 16 109/43 L 93 05/13/18 07:34 05/13/18 07:34 05/13/18 07:34 05/13/18 07:34 05/13/18 07:34 Oxygen Flow Rate (L/min) 2 Oxygen Delivery Method Room Air Weight: 86.137 kg Body Mass Index (BMI) 31.6 Finger Stick Blood Glucose 99 Intake and Output for Last 24 Hours 05/11/18 05/12/18 05/13/18 23:59 23:59 23:59 Intake Total 2396 / 2396 4020 / 4020 350 / 350 Output Total 1600 / 1600 Balance 2396 / 2396 2420 / 2420 350 / 350 Laboratory Tests Past 24 Hrs 05/10/18 05/10/18 05/12/18 17:50 18:50 09:36 WBC RBC Hgb Hct MCV MCH MCHC RDW RDW Differential Plt Count MPV Immature Gran % (Auto) Neut % (Auto) Lymph % (Auto) [place] % (Auto) Eos % (Auto) Baso % (Auto) Absolute Neuts (auto) Absolute Lymphs (auto) Total Counted Diff Path Review Reviewed Sodium Potassium Chloride Carbon Dioxide Anion Gap BUN Creatinine Estim Creat Clear Calc Est GFR (MDRD) Af Amer Est GFR (MDRD) Non-Af BUN/Creatinine Ratio Glucose Hemoglobin A1c 5.5 Calcium Crossmatch See Detail 05/12/18 05/13/18 05/13/18 14:19 06:00 06:00 WBC 2.2 L 2.1 L RBC 2.81 L 2.62 L Hgb 7.7 L 7.2 L Hct 25.2 L 24.6 L MCV 89.7 93.9 MCH 27.4 27.5 MCHC 30.6 L 29.3 L RDW 19.3 H 18.8 H RDW Differential 63.1 H 61.6 H Plt Count 77 L 77 L MPV 9.3 10.0 Immature Gran % (Auto) 0.000 0.000 Neut % (Auto) 48.9 44.3 L Lymph % (Auto) 31.6 42.0 H [place] % (Auto) 15.3 H 9.8 Eos % (Auto) 2.3 2.4 Baso % (Auto) 1.9 H 1.5 H Absolute Neuts (auto) 1.1 L 0.9 L Absolute Lymphs (auto) 0.68 L 0.86 Total Counted Not Reportable Not Reportable Diff Path Review Sodium 134 L Potassium 3.7 Chloride 97 L Carbon Dioxide 30.0 Anion Gap 7 BUN 15 Creatinine 2.63 H Estim Creat Clear Calc 16.63 Est GFR (MDRD) Af Amer 23 L Est GFR (MDRD) Non-Af 19 L BUN/Creatinine Ratio 5.7 L Glucose 125 H Hemoglobin A1c Calcium 8.0 L Crossmatch POC Glucose 05/13/18 05/13/18 05/12/18 06:30 00:23 21:48 POC Glucose 126 H 184 H 182 H 05/12/18 05/12/18 16:12 12:29 POC Glucose 123 H 107 Medical Necessity - Tobacco Use Smoking Status: Former smoker Tobacco Use: Non-smoker Assessment/Plan All Active Problems (Last Updated 05/11/18 @ 10:46 by Chaim Jauregui DO) Acute blood loss anemia (Acute) Abnormal laboratory test (Acute) 1. ESRD next dialysis on Sun. 2. Acute GI bleed with profound anemia. PRBC as needed. bleeding scan today 3. HTN stable 4. DM2 primary service mgmt 5. Ascites hx paracentesis. Consider paracentesis with increased abdominal distension 6. Hx dietary noncompliance, fluid overload 7. Debility in ECF 8. Pancytopenia etiology unclear.
--- NOTE | 2018-05-13 10:39 | CASEMGMT ---
Social Work Note MARGO spoke with Candelaria at [facility]. Per Candelaria, pt was skilled and is able to return to skilled once medically cleared. MARGO updated Candelaria that per physician, pt is not medically cleared for discharge today. MARGO updated Candelaria of this and faxed updated clinicals. Green sheet on chart. Plan: Pt to return to [facility] once medically cleared Matilde Burton DAIRY CONSULTANT, [employer]
--- NOTE | 2018-05-13 11:24 | PCA ---
pt off floor
[2018-05-13 12:50] LABS: Bedside Glucose 154 mg/dL (70-110)
[2018-05-13 17:56] LABS: Bedside Glucose 153 mg/dL (70-110)
[2018-05-13] MEDS: Doxazosin 4 MG Tablet 8 MG PO (22:36)
[2018-05-13] MEDS: Pramipexole Di-HCl 0.25 MG Tablet PO (22:36)
[2018-05-13] MEDS: Atorvastatin Calcium 80 MG Tablet PO (22:36)
[2018-05-13 22:51] LABS: Bedside Glucose 148 mg/dL (70-110)
[2018-05-14] MEDS: oxyCODONE 5 MG Tablet 7.5 MG PO ×2 (00:20→18:47)
[2018-05-14] MEDS: Acetaminophen 325 MG Tablet 650 MG PO (00:20)
[2018-05-14 03:30] VITALS: BP 120/43; PULSE 59; RESP 16; TEMP 36.4; O2SAT 96
[2018-05-14] MEDS: Calcium Acetate 667 MG Capsule 2001 MG PO ×3 (06:29→16:52)
[2018-05-14 06:31] LABS: Absolute Lymphocyte Count 0.97 X10^3/ul (0.83-4.51); Absolute Neutrophil Count 1.4 X10^3/uL (2.0-7.7); Basophil# 0.01 X10^3/uL; Basophil% 0.4 % (0-1); Eosinophil# 0.13 X10^3/uL; Eosinophils% 4.8 % (0-5); Hematocrit 27.2 % (37-47); Hemoglobin 8.3 g/dl (12.0-15.0); Lymphocyte # 0.97 X10^3/ul (4.0); Lymphocyte % 35.8 % (19-41); Mean Corp Hgb Conc 30.5 g/gl (32-36); Mean Corpuscular Hgb 27.9 pg (27.0-32.0); Mean Corpuscular Volume 91.3 fL (81-99); Mean Platelet Vol. 9.9 fl (6.2-12.0); Monocyte# 0.23 X10^3/uL; Monocyte% 8.5 % (0-10); Neutrophil # 1.36 X10^3/uL (2.7-7.7); Neutrophil % 50.1 % (47-70); Platelet Count 59 K/mm3 (150-450); RBC Distribution Width CV 18.7 % (11.6-14.6); RBC Distribution Width SD 60.8 fl (35.1-43.9); Red Blood Count 2.98 M/mm3 (4.2-5.4); White Blood Count 2.7 K/mm3 (4.4-11.0)
[2018-05-14 06:36] LABS: Bedside Glucose 118 mg/dL (70-110)
[2018-05-14 06:39] LABS: Anion Gap 9 (5-15); BUN 21 mg/dL (7-18); BUN/Creat Ratio 5.7 RATIO (10-20); Calcium,Total 8.5 mg/dL (8.5-10.1); Chloride 96 mmol/L (98-107); Creatinine, Serum 3.69 mg/dL (0.55-1.02); EST Glomerular Filtration Rate 13 mL/min (>60); Est Glom Filt Rate - Afr Amer 15 mL/min (>60); Estimated Creatinine Clearance 11.85 ml/min; Glucose 109 mg/dL (74-106); Potassium 4.3 mmol/L (3.5-5.1); Sodium Level 136 mmol/L (136-145)
[2018-05-14 06:46] LABS: Differential Indicated SCAN CRITERIA MET; POSITIVE COUNT NO; POSITIVE DIFFERENTIAL NO; POSITIVE MORPHOLOGY YES
[2018-05-14 06:55] LABS: Platelet Estimate MOD DEC (ADEQ)
[2018-05-14 06:56] LABS: Anisocytosis 1+; Hypochromasia 2+; Polychromasia RARE; Schistocytes RARE
[2018-05-14] MEDS: Gabapentin 100 MG Capsule PO ×3 (08:38→16:52)
[2018-05-14] MEDS: SEVELAMER CARBONATE 800 MG TABLET 1600 MG PO ×3 (08:38→16:51)
[2018-05-14] MEDS: Aspirin E.C. 81 MG Tablet PO (08:38)
[2018-05-14 09:00] VITALS: BP 137/61; PULSE 64; RESP 18; TEMP 37; O2SAT 96
--- NOTE | 2018-05-14 09:16 | PN.SURG_ITS ---
Patient Problems: Active and Suspected Problems (Last Updated 05/11/18 @ 10:46 by Chaim Jauregui DO) Abnormal laboratory test (Acute) - Physical Exam General: Alert, Oriented x3, Cooperative Lungs: Clear to auscultation, Normal air movement Cardiovascular: Regular rate, No murmurs Abdomen: Bowel Sounds Present, Soft, Non Tender Vital Signs Temp Pulse Resp BP Pulse Ox 97.6 F L 59 L 16 120/43 L 96 05/14/18 03:30 05/14/18 03:30 05/14/18 03:30 05/14/18 03:30 05/14/18 03:30 Oxygen Flow Rate (L/min) 2 Oxygen Delivery Method Nasal Cannula Weight: 86.137 kg Body Mass Index (BMI) 31.6 Finger Stick Blood Glucose 99 Intake and Output for Last 24 Hours 05/12/18 05/13/18 05/14/18 23:59 23:59 23:59 Intake Total 4020 / 4020 750 / 750 230 / 230 Output Total 1600 / 1600 0 / 0 Balance 2420 / 2420 750 / 750 230 / 230 Laboratory Tests Past 24 Hrs 05/10/18 05/10/18 05/14/18 17:50 18:50 05:45 WBC 2.7 L RBC 2.98 L Hgb 8.3 L Hct 27.2 L MCV 91.3 MCH 27.9 MCHC 30.5 L RDW 18.7 H RDW Differential 60.8 H Plt Count 59 L MPV 9.9 Immature Gran % (Auto) 0.400 Neut % (Auto) 50.1 Lymph % (Auto) 35.8 [place] % (Auto) 8.5 Eos % (Auto) 4.8 Baso % (Auto) 0.4 Absolute Neuts (auto) 1.4 L Absolute Lymphs (auto) 0.97 Total Counted Not Reportable Diff Path Review Reviewed Platelet Estimate MOD DEC Polychromasia RARE Hypochromasia 2+ Anisocytosis 1+ Schistocytes RARE Sodium Potassium Chloride Carbon Dioxide Anion Gap BUN Creatinine Estim Creat Clear Calc Est GFR (MDRD) Af Amer Est GFR (MDRD) Non-Af BUN/Creatinine Ratio Glucose Calcium Crossmatch See Detail 05/14/18 05:45 WBC RBC Hgb Hct MCV MCH MCHC RDW RDW Differential Plt Count MPV Immature Gran % (Auto) Neut % (Auto) Lymph % (Auto) [place] % (Auto) Eos % (Auto) Baso % (Auto) Absolute Neuts (auto) Absolute Lymphs (auto) Total Counted Diff Path Review Platelet Estimate Polychromasia Hypochromasia Anisocytosis Schistocytes Sodium 136 Potassium 4.3 Chloride 96 L Carbon Dioxide 31.0 Anion Gap 9 BUN 21 H Creatinine 3.69 H Estim Creat Clear Calc 11.85 Est GFR (MDRD) Af Amer 15 L Est GFR (MDRD) Non-Af 13 L BUN/Creatinine Ratio 5.7 L Glucose 109 H Calcium 8.5 Crossmatch POC Glucose 05/14/18 05/13/18 05/13/18 06:27 22:34 16:38 POC Glucose 118 H 148 H 153 H 05/13/18 12:15 POC Glucose 154 H Medical Necessity - Tobacco Use Smoking Status: Former smoker Tobacco Use: Non-smoker Assessment/Plan All Active Problems (Last Updated 05/11/18 @ 10:46 by Chaim Jauregui DO) Acute blood loss anemia (Acute) Abnormal laboratory test (Acute) rectal bleeding, decrease in hemoglobin, allegedly normal upper and lower endoscopy 3 months previously, thrombocytopenia, multiple medical conditions. Patient received 1 unit of packed red cells with an initial appropriate increase in her hemoglobin. Her hemoglobin decreased slightly-I recommend transfusion of one additional packed red cell. Upper and lower endoscopy performed Sunday. Upper endoscopy demonstrated some diffuse gastritis with no signs of active bleeding and distal esophagitis. Colonoscopy demonstrated what looked like some older blood clots all the way around the base of the cecum suggestive of proximal bleeding. No blood or irritation in the terminal ileum. The patient had diverticulosis without signs of diverticular bleed. I recommend bleeding scan - fortunately this cannot be obtained during holiday hours. if the patient is otherwise doing well, I'm comfortable with her being discharged to home with plans for bleeding scan if she presents with re- bleeding. etiology of ascites seems to be consistent with anasarca/protein malnutrition when reviewing previous CT scan that does not demonstrate cirrhotic changes or splenomegaly. We will carefully checked for varices during upper endoscopy - no varices were noted. Patient anticipating additional paracentesis this ho spitalization.
[2018-05-14] MEDS: Isosorbide Mononitrate 30 MG Tablet PO ×2 (09:58→21:08)
[2018-05-14] MEDS: Carvedilol 12.5 MG Tablet PO ×2 (09:58→21:09)
[2018-05-14] MEDS: Pantoprazole Sodium 40 MG Tablet PO ×2 (09:58→21:08)
[2018-05-14] MEDS: Clopidogrel Bisulfate 75 MG Tablet PO (09:59)
[2018-05-14] MEDS: Losartan Potassium 50 MG Tablet PO ×2 (09:59→21:09)
--- NOTE | 2018-05-14 10:40 | PCM.PROGNOTE ---
Patient Problems: Active and Suspected Problems (Last Updated 05/11/18 @ 10:46 by Chaim Jauregui DO) Abnormal laboratory test (Acute) Subjective: The patient is a 73-year-old female who [facility] who was admitted to the hospital with rectal bleeding. Colonoscopy revealed diverticulosis and hematin staining of the cecum. There was no active bleeding in the colon. An EGD showed a erythematous friable mucosa with erosions in the stomach. A bleeding scan was negative. Biopsies are pending. She was noted to be pancytopenic at presentation to the hospital. She does tell me that she has been B12 deficient in the past and has not had any B12 injections for quite some time. She thinks she may be taking a B12 supplement orally but cannot be sure. She is taking Nephrocaps. She denies any nausea, SOB, chest pain, vomiting. She has not had a BM but when she wipes her bottom there is blood on the TP. she refused a total of 3 units of PRBC's in the hospital and had 1 of those units yesterday. All events of the past 24 hours have been reviewed. The hemoglobin came up to 8.3 from 7.2 on 05/13. Platelets are 59,000 and the white blood cell count is 2.7. Electrolytes are within normal limits. The BUN is 21 with a creatinine of 3.69. - Physical Exam General: Alert, Oriented x3, Cooperative, No apparent distress HEENT: Atraumatic Lungs: Clear to auscultation, Normal air movement Cardiovascular: Regular rate, Regular Rhythm, Normal S1, Normal S2, No Gallop Abdomen: Bowel Sounds Present, Soft, Non Tender, Non-Distended, - - she has ascites with pitting edema in the flanks Extremities: No cyanosis, Edema - 4+ of the BL LE's Skin: No rashes Neurological: Cranial nerves II-XII grossly intact, Neuro grossly intact Psych/Mental Status: Normal Affect, Appropriate Vital Signs Temp Pulse Resp BP Pulse Ox 97.6 F L 59 L 16 120/43 L 96 05/14/18 03:30 05/14/18 03:30 05/14/18 03:30 05/14/18 03:30 05/14/18 03:30 Oxygen Flow Rate (L/min) 2 Oxygen Delivery Method Nasal Cannula Weight: 189 lb 14.393 oz Body Mass Index (BMI) 31.6 Finger Stick Blood Glucose 99 Intake and Output for Last 24 Hours 05/12/18 05/13/18 05/14/18 23:59 23:59 23:59 Intake Total 4020 / 4020 750 / 750 230 / 230 Output Total 1600 / 1600 0 / 0 Balance 2420 / 2420 750 / 750 230 / 230 Laboratory Tests Past 24 Hrs 05/10/18 05/14/18 05/14/18 18:50 05:45 05:45 WBC 2.7 L RBC 2.98 L Hgb 8.3 L Hct 27.2 L MCV 91.3 MCH 27.9 MCHC 30.5 L RDW 18.7 H RDW Differential 60.8 H Plt Count 59 L MPV 9.9 Immature Gran % (Auto) 0.400 Neut % (Auto) 50.1 Lymph % (Auto) 35.8 [place] % (Auto) 8.5 Eos % (Auto) 4.8 Baso % (Auto) 0.4 Absolute Neuts (auto) 1.4 L Absolute Lymphs (auto) 0.97 Total Counted Not Reportable Platelet Estimate MOD DEC Polychromasia RARE Hypochromasia 2+ Anisocytosis 1+ Schistocytes RARE Sodium 136 Potassium 4.3 Chloride 96 L Carbon Dioxide 31.0 Anion Gap 9 BUN 21 H Creatinine 3.69 H Estim Creat Clear Calc 11.85 Est GFR (MDRD) Af Amer 15 L Est GFR (MDRD) Non-Af 13 L BUN/Creatinine Ratio 5.7 L Glucose 109 H Calcium 8.5 Crossmatch See Detail POC Glucose 05/14/18 05/13/18 05/13/18 06:27 22:34 16:38 POC Glucose 118 H 148 H 153 H 05/13/18 12:15 POC Glucose 154 H Medical Necessity - Tobacco Use Smoking Status: Former smoker Tobacco Use: Non-smoker Assessment/Plan All Active Problems (Last Updated 05/11/18 @ 10:46 by Chaim Jauregui DO) Acute blood loss anemia (Acute) Abnormal laboratory test (Acute) Impressions 1. Acute blood loss anemia-status post transfusion of 3 units of packed red blood cells during her hospital stay 2. Pancytopenia of uncertain etiology. May be due to B12 deficiency as she has a history of this and has not been on a B12 supplement for quite some time now. 3. End-stage renal disease on hemodialysis 4. Ascites with anasarca- etiology unclear. secondary to volume OL? Pulmonary HTN? liver disease? LFT's unremarkable the end of March. CT of the abd at the same time shows a normal liver. ovarian CA? no mention of uterus or ovaries on the CT report in late March. This likely needs to be further investigated. If the HGB is stable tomorrow will likely be able to DC Check a B12 level and also folate, iron studies, ELIER and esr If the B12 is low will supplement consider a paracentesis tomorrow......will recheck CBC and PT in the AM Code Visit Inpatient E&M: 91942 Subs Hosp L2
[2018-05-14 11:13] LABS: Ferritin 852 ng/mL (8-252); Iron 33 ug/dL (50-170); Iron Binding Capacity,Total 207 ug/dL (250-450); PERCENT IRON SATURATION 15.9 % (15.0-55.0)
[2018-05-14 11:21] LABS: AST(SGOT) 15 U/L (15-37); Alanine Aminotransfer ALT/SGPT 9 U/L (13-56); Albumin, Serum 2.6 g/dL (3.2-5.0); Alkaline Phosphatase 127 U/L (45-117); Bilirubin, Direct 0.27 mg/dL (0.00-0.30); Globulin 3.5 g/dL (2.2-4.2); Protein, Total 6.1 g/dL (6.4-8.2)
[2018-05-14 11:29] VITALS: RESP 18
[2018-05-14] MEDS: Insulin Lispro 100 UNIT/ML INSULN.PEN SC ×2 (12:04→21:08)
[2018-05-14 12:20] LABS: Bedside Glucose 152 mg/dL (70-110)
[2018-05-14 16:56] LABS: Bedside Glucose 136 mg/dL (70-110)
[2018-05-14 21:01] VITALS: BP 148/47; PULSE 64; RESP 18; TEMP 36.4; O2SAT 96
[2018-05-14] MEDS: Pramipexole Di-HCl 0.25 MG Tablet PO (21:08)
[2018-05-14] MEDS: Doxazosin 4 MG Tablet 8 MG PO (21:08)
[2018-05-14] MEDS: Atorvastatin Calcium 80 MG Tablet PO (21:08)
[2018-05-14 23:06] LABS: Bedside Glucose 155 mg/dL (70-110)
[2018-05-15] MEDS: oxyCODONE 5 MG Tablet 7.5 MG PO ×3 (01:52→17:04)
[2018-05-15 02:43] VITALS: BP 128/40; PULSE 58; RESP 18; TEMP 36.4; O2SAT 92
[2018-05-15] MEDS: Acetaminophen 325 MG Tablet 650 MG PO ×2 (05:34→14:52)
--- NOTE | 2018-05-15 06:08 | PCM.PN.SRG ---
Patient Problems: Active and Suspected Problems (Last Updated 05/11/18 @ 10:46 by Chaim Jauregui DO) Abnormal laboratory test (Acute) Subjective: no complaints - Physical Exam Abdomen: Soft, Non Tender Vital Signs Temp Pulse Resp BP Pulse Ox 97.6 F L 58 L 18 128/40 H 92 05/15/18 02:43 05/15/18 02:43 05/15/18 02:43 05/15/18 02:43 05/15/18 02:43 Oxygen Flow Rate (L/min) 2 Oxygen Delivery Method Room Air Weight: 86.137 kg Body Mass Index (BMI) 31.6 Finger Stick Blood Glucose 99 Intake and Output for Last 24 Hours 05/13/18 05/14/18 05/15/18 23:59 23:59 23:59 Intake Total 750 / 750 880 / 880 100 / 100 Output Total 0 / 0 0 / 0 Balance 750 / 750 880 / 880 100 / 100 Laboratory Tests Past 24 Hrs 05/14/18 05/14/18 05/14/18 05:45 05:45 05:45 WBC 2.7 L RBC 2.98 L Hgb 8.3 L Hct 27.2 L MCV 91.3 MCH 27.9 MCHC 30.5 L RDW 18.7 H RDW Differential 60.8 H Plt Count 59 L MPV 9.9 Immature Gran % (Auto) 0.400 Neut % (Auto) 50.1 Lymph % (Auto) 35.8 [place] % (Auto) 8.5 Eos % (Auto) 4.8 Baso % (Auto) 0.4 Absolute Neuts (auto) 1.4 L Absolute Lymphs (auto) 0.97 Total Counted Not Reportable Platelet Estimate MOD DEC Polychromasia RARE Hypochromasia 2+ Anisocytosis 1+ Schistocytes RARE PT INR Sodium 136 Potassium 4.3 Chloride 96 L Carbon Dioxide 31.0 Anion Gap 9 BUN 21 H Creatinine 3.69 H Estim Creat Clear Calc 11.85 Est GFR (MDRD) Af Amer 15 L Est GFR (MDRD) Non-Af 13 L BUN/Creatinine Ratio 5.7 L Glucose 109 H Calcium 8.5 Phosphorus Iron TIBC Iron Saturation Ferritin Total Bilirubin Direct Bilirubin AST ALT Alkaline Phosphatase Total Protein Albumin Globulin Vitamin B12 Pending RBC Folate Hemolysate RBC Folate Hematocrit Rheumatoid Factor ELIER Screen [place]-1 Antibody SS-A/Ro IgG Antibody SS-B/La IgG Antibody Sm (Ty) Antibody INSTRUMENTATION DESIGNER Antibody Scl-70 Scleroderma Ab Double Strand DNA Ab Centromere B Antibody 05/14/18 05/14/18 05/15/18 05:45 05:45 05:24 WBC RBC Hgb Hct MCV MCH MCHC RDW RDW Differential Plt Count MPV Immature Gran % (Auto) Neut % (Auto) Lymph % (Auto) [place] % (Auto) Eos % (Auto) Baso % (Auto) Absolute Neuts (auto) Absolute Lymphs (auto) Total Counted Platelet Estimate Polychromasia Hypochromasia Anisocytosis Schistocytes PT INR Sodium Potassium Chloride Carbon Dioxide Anion Gap BUN Creatinine Estim Creat Clear Calc Est GFR (MDRD) Af Amer Est GFR (MDRD) Non-Af BUN/Creatinine Ratio Glucose Calcium Phosphorus Iron 33 L TIBC 207 L Iron Saturation 15.9 Ferritin 852 H Total Bilirubin 0.50 Direct Bilirubin 0.27 AST 15 ALT 9 L Alkaline Phosphatase 127 H Total Protein 6.1 L Albumin 2.6 L Globulin 3.5 Vitamin B12 RBC Folate Hemolysate RBC Folate Hematocrit Rheumatoid Factor 12.0 ELIER Screen Pending [place]-1 Antibody Pending SS-A/Ro IgG Antibody Pending SS-B/La IgG Antibody Pending Sm (Ty) Antibody Pending INSTRUMENTATION DESIGNER Antibody Pending Scl-70 Scleroderma Ab Pending Double Strand DNA Ab Pending Centromere B Antibody Pending 05/15/18 05/15/18 05/15/18 05:24 05:24 05:24 WBC Pending RBC Pending Hgb Pending Hct Pending MCV Pending MCH Pending MCHC Pending RDW Pending RDW Differential Pending Plt Count Pending MPV Immature Gran % (Auto) Neut % (Auto) Lymph % (Auto) [place] % (Auto) Eos % (Auto) Baso % (Auto) Absolute Neuts (auto) Absolute Lymphs (auto) Total Counted Platelet Estimate Polychromasia Hypochromasia Anisocytosis Schistocytes PT INR Sodium Pending Potassium Pending Chloride Pending Carbon Dioxide Pending Anion Gap BUN Pending Creatinine Pending Estim Creat Clear Calc Est GFR (MDRD) Af Amer Pending Est GFR (MDRD) Non-Af Pending BUN/Creatinine Ratio Pending Glucose Pending Calcium Pending Phosphorus Pending Iron TIBC Iron Saturation Ferritin Total Bilirubin Direct Bilirubin AST ALT Alkaline Phosphatase Total Protein Albumin Pending Globulin Vitamin B12 RBC Folate Hemolysate Pending RBC Folate Pending Hematocrit Pending Rheumatoid Factor ELIER Screen [place]-1 Antibody SS-A/Ro IgG Antibody SS-B/La IgG Antibody Sm (Ty) Antibody INSTRUMENTATION DESIGNER Antibody Scl-70 Scleroderma Ab Double Strand DNA Ab Centromere B Antibody 05/15/18 05:24 WBC RBC Hgb Hct MCV MCH MCHC RDW RDW Differential Plt Count MPV Immature Gran % (Auto) Neut % (Auto) Lymph % (Auto) [place] % (Auto) Eos % (Auto) Baso % (Auto) Absolute Neuts (auto) Absolute Lymphs (auto) Total Counted Platelet Estimate Polychromasia Hypochromasia Anisocytosis Schistocytes PT Pending INR Pending Sodium Potassium Chloride Carbon Dioxide Anion Gap BUN Creatinine Estim Creat Clear Calc Est GFR (MDRD) Af Amer Est GFR (MDRD) Non-Af BUN/Creatinine Ratio Glucose Calcium Phosphorus Iron TIBC Iron Saturation Ferritin Total Bilirubin Direct Bilirubin AST ALT Alkaline Phosphatase Total Protein Albumin Globulin Vitamin B12 RBC Folate Hemolysate RBC Folate Hematocrit Rheumatoid Factor ELIER Screen [place]-1 Antibody SS-A/Ro IgG Antibody SS-B/La IgG Antibody Sm (Ty) Antibody INSTRUMENTATION DESIGNER Antibody Scl-70 Scleroderma Ab Double Strand DNA Ab Centromere B Antibody POC Glucose 05/14/18 05/14/18 05/14/18 21:06 16:49 12:00 POC Glucose 155 H 136 H 152 H 05/14/18 06:27 POC Glucose 118 H Medical Necessity - Tobacco Use Smoking Status: Former smoker Tobacco Use: Non-smoker Assessment/Plan All Active Problems (Last Updated 05/11/18 @ 10:46 by Chaim Jauregui DO) Acute blood loss anemia (Acute) Abnormal laboratory test (Acute) rectal bleeding, decrease in hemoglobin, allegedly normal upper and lower endoscopy 3 months previously, thrombocytopenia, multiple medical conditions. Patient received 1 unit of packed red cells with an initial appropriate increase in her hemoglobin. Her hemoglobin had decreased slightly-I recommended transfusion of one additional packed red cell. - Hgb now 8.2 Upper and lower endoscopy performed Sunday. Upper endoscopy demonstrated some diffuse gastritis with no signs of active bleeding and distal esophagitis. Colonoscopy demonstrated what looked like some older blood clots all the way around the base of the cecum suggestive of proximal bleeding. No blood or irritation in the terminal ileum. The patient had diverticulosis without signs of diverticular bleed. Bleeding scan - negative etiology of ascites seems to be consistent with anasarca/protein malnutrition when reviewing previous CT scan that does not demonstrate cirrhotic changes or splenomegaly. We will carefully checked for varices during upper endoscopy - no varices were noted.
[2018-05-15 06:32] LABS: International Normalized Ratio 1.8; Prothrombin Time (Protime)PT. 21.1 SECONDS (11.7-14.9)
[2018-05-15 06:36] LABS: Hematocrit 27.4 % (37-47); Hemoglobin 8.2 g/dl (12.0-15.0); Mean Corp Hgb Conc 29.9 g/gl (32-36); Mean Corpuscular Hgb 27.3 pg (27.0-32.0); Mean Corpuscular Volume 91.3 fL (81-99); Mean Platelet Vol. 10.5 fl (6.2-12.0); Platelet Count 78 K/mm3 (150-450); RBC Distribution Width CV 18.6 % (11.6-14.6); RBC Distribution Width SD 60.9 fl (35.1-43.9); White Blood Count 2.7 K/mm3 (4.4-11.0)
[2018-05-15 06:37] LABS: Scan Indicated on CBC? Y/N NO
[2018-05-15 06:44] LABS: Albumin, Serum 2.5 g/dL (3.2-5.0); BUN 26 mg/dL (7-18); BUN/Creat Ratio 5.9 RATIO (10-20); Calcium,Total 8.8 mg/dL (8.5-10.1); Chloride 94 mmol/L (98-107); Creatinine, Serum 4.38 mg/dL (0.55-1.02); EST Glomerular Filtration Rate 10 mL/min (>60); Est Glom Filt Rate - Afr Amer 13 mL/min (>60); Estimated Creatinine Clearance 9.99 ml/min; Glucose 107 mg/dL (74-106); Phosphorus 2.9 mg/dL (2.5-4.9); Potassium 4.5 mmol/L (3.5-5.1); Sodium Level 133 mmol/L (136-145)
[2018-05-15] MEDS: Calcium Acetate 667 MG Capsule 2001 MG PO ×3 (06:57→17:03)
[2018-05-15 07:05] LABS: Bedside Glucose 105 mg/dL (70-110)
[2018-05-15 08:40] VITALS: BP 116/34; PULSE 59; RESP 18; TEMP 36.4; O2SAT 99
[2018-05-15 08:49] LABS: Vitamin B12 696 pg/mL (211-911)
--- NOTE | 2018-05-15 09:12 | PN.RENAL_ITS ---
Patient Problems: Active and Suspected Problems (Last Updated 05/11/18 @ 10:46 by Chaim Jauregui DO) Abnormal laboratory test (Acute) Subjective: seen on dialysis. attempt 3-4L fluid removal as tolerated - Physical Exam General: Alert, Oriented x3, Cooperative Neck: Supple Lungs: Clear to auscultation Cardiovascular: Regular rate Abdomen: Bowel Sounds Present, Soft, Distended, Tender - LLQ Extremities: Edema - mild Psych/Mental Status: Normal Affect, Appropriate, Alert and oriented to time, place, person, mood and affect Vital Signs Temp Pulse Resp BP Pulse Ox 97.6 F L 58 L 18 128/40 H 92 05/15/18 02:43 05/15/18 02:43 05/15/18 02:43 05/15/18 02:43 05/15/18 02:43 Oxygen Flow Rate (L/min) 2 Oxygen Delivery Method Room Air Weight: 90.8 kg Body Mass Index (BMI) 31.6 Finger Stick Blood Glucose 99 Intake and Output for Last 24 Hours 05/13/18 05/14/18 05/15/18 23:59 23:59 23:59 Intake Total 750 / 750 880 / 880 150 / 150 Output Total 0 / 0 0 / 0 Balance 750 / 750 880 / 880 150 / 150 Laboratory Tests Past 24 Hrs 05/14/18 05/14/18 05/14/18 05:45 05:45 05:45 WBC RBC Hgb Hct MCV MCH MCHC RDW RDW Differential Plt Count MPV PT INR Sodium Potassium Chloride Carbon Dioxide BUN Creatinine Estim Creat Clear Calc Est GFR (MDRD) Af Amer Est GFR (MDRD) Non-Af BUN/Creatinine Ratio Glucose Calcium Phosphorus Iron 33 L TIBC 207 L Iron Saturation 15.9 Ferritin 852 H Total Bilirubin 0.50 Direct Bilirubin 0.27 AST 15 ALT 9 L Alkaline Phosphatase 127 H Total Protein 6.1 L Albumin 2.6 L Globulin 3.5 Vitamin B12 696 RBC Folate Hemolysate RBC Folate Hematocrit Rheumatoid Factor 12.0 ELIER Screen [place]-1 Antibody SS-A/Ro IgG Antibody SS-B/La IgG Antibody Sm (Yt) Antibody INSURANCE COORDINATOR Antibody Scl-70 Scleroderma Ab Double Strand DNA Ab Centromere B Antibody 05/15/18 05/15/18 05/15/18 05:24 05:24 05:24 WBC 2.7 L RBC 3.00 L Hgb 8.2 L Hct 27.4 L MCV 91.3 MCH 27.3 MCHC 29.9 L RDW 18.6 H RDW Differential 60.9 H Plt Count 78 L MPV 10.5 PT INR Sodium Potassium Chloride Carbon Dioxide BUN Creatinine Estim Creat Clear Calc Est GFR (MDRD) Af Amer Est GFR (MDRD) Non-Af BUN/Creatinine Ratio Glucose Calcium Phosphorus Iron TIBC Iron Saturation Ferritin Total Bilirubin Direct Bilirubin AST ALT Alkaline Phosphatase Total Protein Albumin Globulin Vitamin B12 RBC Folate Hemolysate Pending RBC Folate Pending Hematocrit Pending Rheumatoid Factor ELIER Screen Pending [place]-1 Antibody Pending SS-A/Ro IgG Antibody Pending SS-B/La IgG Antibody Pending Sm (Ty) Antibody Pending INSURANCE COORDINATOR Antibody Pending Scl-70 Scleroderma Ab Pending Double Strand DNA Ab Pending Centromere B Antibody Pending 05/15/18 05/15/18 05:24 05:24 WBC RBC Hgb Hct MCV MCH MCHC RDW RDW Differential Plt Count MPV PT 21.1 H INR 1.8 Sodium 133 L Potassium 4.5 Chloride 94 L Carbon Dioxide 28.0 BUN 26 H Creatinine 4.38 H Estim Creat Clear Calc 9.99 Est GFR (MDRD) Af Amer 13 L Est GFR (MDRD) Non-Af 10 L BUN/Creatinine Ratio 5.9 L Glucose 107 H Calcium 8.8 Phosphorus 2.9 Iron TIBC Iron Saturation Ferritin Total Bilirubin Direct Bilirubin AST ALT Alkaline Phosphatase Total Protein Albumin 2.5 L Globulin Vitamin B12 RBC Folate Hemolysate RBC Folate Hematocrit Rheumatoid Factor ELIER Screen [place]-1 Antibody SS-A/Ro IgG Antibody SS-B/La IgG Antibody Sm (Ty) Antibody INSURANCE COORDINATOR Antibody Scl-70 Scleroderma Ab Double Strand DNA Ab Centromere B Antibody POC Glucose 05/15/18 05/14/18 05/14/18 06:56 21:06 16:49 POC Glucose 105 155 H 136 H 05/14/18 12:00 POC Glucose 152 H Medical Necessity - Tobacco Use Smoking Status: Former smoker Tobacco Use: Non-smoker Assessment/Plan All Active Problems (Last Updated 05/11/18 @ 10:46 by Chaim Jauregui DO) Acute blood loss anemia (Acute) Abnormal laboratory test (Acute) 1. ESRD seen on dialysis. Next tx Sunday. Attempt 3-4L fluid removal 2. Acute GI bleed with profound anemia. PRBC as needed. 3. HTN stable 4. DM2 primary service mgmt 5. Ascites hx paracentesis. Repeat paracentesis 6. Pancytopenia etiology unclear.
--- NOTE | 2018-05-15 09:18 | CASEMGMT ---
Social Work Note Per physician, pt is not medically ready for discharge today. MARGO placed a call to Candelaria at [facility] and left her a message informing her that pt is not ready for discharge today. MARGO faxed updated clinicals to Candelaria. Plan: Return to [facility] once medically cleared Matilde Burton MACHINE OPERATOR REPLANTER, DATA ENTRY COORDINATOR
--- NOTE | 2018-05-15 09:45 | PCM.PN.HOSP ---
Patient Problems: Active and Suspected Problems (Last Updated 05/11/18 @ 10:46 by Chaim Jauregui DO) GI bleed (Acute) Acute blood loss anemia (Acute) Abnormal laboratory test (Acute) Subjective: No further bleeding. Abdomen getting more distended. Vitals/I&O's: Vital Signs Temp Pulse Resp BP Pulse Ox 36.4 C L 59 L 18 116/34 L 99 05/15/18 08:40 05/15/18 08:40 05/15/18 08:40 05/15/18 08:40 05/15/18 08:40 Oxygen Flow Rate (L/min) 2 Oxygen Delivery Method Nasal Cannula Weight: 90.8 kg Body Mass Index (BMI) 31.6 Finger Stick Blood Glucose 99 Intake and Output for Last 24 Hours 05/13/18 05/14/18 05/15/18 23:59 23:59 23:59 Intake Total 750 / 750 880 / 880 150 / 150 Output Total 0 / 0 0 / 0 Balance 750 / 750 880 / 880 150 / 150 General: Alert, Cooperative, No apparent distress HEENT: Atraumatic, Normocephalic Oral: Moist Mucosa, No Gingival or Mucosal Lesions/ Ulcerations Neck: No Nodes, Thyroid Normal Size and Texture Lungs: Clear to auscultation, Normal air movement, No rhonchi, No wheeze Cardiovascular: Regular rate, Regular Rhythm, Normal S1, Normal S2, No murmurs Abdomen: Bowel Sounds Present, Soft, Non Tender, Distended Extremities: No Calf Tenderness, Edema Skin: No rashes, No breakdown Psych/Mental Status: Normal Affect, Appropriate Laboratory Results 05/14/18 05:45: Vitamin B12 696 05/14/18 05:45: Iron 33 L, TIBC 207 L, Iron Saturation 15.9, Ferritin 852 H, Rheumatoid Factor 12.0 05/14/18 05:45: Total Bilirubin 0.50, Direct Bilirubin 0.27, AST 15, ALT 9 L, Alkaline Phosphatase 127 H, Total Protein 6.1 L, Albumin 2.6 L, Globulin 3.5 05/14/18 12:00: POC Glucose 152 H 05/14/18 16:49: POC Glucose 136 H 05/14/18 21:06: POC Glucose 155 H 05/15/18 05:24: ELIER Screen Pending, [place]-1 Antibody Pending, SS-A/Ro IgG Antibody Pending, SS-B/La IgG Antibody Pending, Sm (Ty) Antibody Pending, BAD CREDIT COLLECTOR Antibody Pending, Scl-70 Scleroderma Ab Pending, Double Strand DNA Ab Pending, Centromere B Antibody Pending 05/15/18 05:24: RBC Folate Hemolysate Pending, RBC Folate Pending, Hematocrit Pending 05/15/18 05:24: WBC 2.7 L, RBC 3.00 L, Hgb 8.2 L, Hct 27.4 L, MCV 91.3, MCH 27.3, MCHC 29.9 L, RDW 18.6 H, RDW Differential 60.9 H, Plt Count 78 L, MPV 10.5 05/15/18 05:24: Sodium 133 L, Potassium 4.5, Chloride 94 L, Carbon Dioxide 28.0, BUN 26 H, Creatinine 4.38 H, Estim Creat Clear Calc 9.99, Est GFR (MDRD) Af Amer 13 L, Est GFR (MDRD) Non-Af 10 L, BUN/Creatinine Ratio 5.9 L, Glucose 107 H, Calcium 8.8, Phosphorus 2.9, Albumin 2.5 L 05/15/18 05:24: PT 21.1 H, INR 1.8 05/15/18 06:56: POC Glucose 105 Current Medications Acetaminophen (Tylenol) 650 mg PO Q6H PRN PRN PRN Reason: Mild Pain (1-3)/Temp > 100.7 F Last Admin: 05/15/18 05:34 Dose: 650 mg Acetaminophen (Tylenol) 325 mg PO Q6H PRN PRN PRN Reason: PAIN Last Admin: 05/13/18 00:19 Dose: 325 mg Atorvastatin Calcium (Lipitor) 80 mg PO QHS [facility] Last Admin: 05/14/18 21:08 Dose: 80 mg Calcium Acetate (Phoslo Gel Cap) 2,001 mg PO TIDAC [facility] Last Admin: 05/15/18 06:57 Dose: 2,001 mg Carvedilol (Coreg) 12.5 mg PO BID [facility] Last Admin: 05/14/18 21:09 Dose: 12.5 mg Docusate Calcium (Surfak) 240 mg PO BID [facility] Last Admin: 05/14/18 21:08 Dose: 240 mg Doxazosin Mesylate (Cardura) 8 mg PO QHS [facility] Last Admin: 05/14/18 21:08 Dose: 8 mg Gabapentin (Neurontin) 100 mg PO TIDCM [facility] Last Admin: 05/14/18 16:52 Dose: 100 mg Insulin Human Lispro (Humalog Kwikpen (Bkc)) 0 unit SC [facility]; Protocol Last Admin: 05/15/18 06:57 Dose: Not Given Isosorbide Mononitrate (Imdur) 30 mg PO BID [facility] Last Admin: 05/14/18 21:08 Dose: 30 mg Lactulose (Chronulac, Cephulac) 26.666 gm PO DAILY PRN PRN PRN Reason: Constipation Losartan Potassium (Cozaar) 50 mg PO BID [facility] Last Admin: 05/14/18 21:09 Dose: 50 mg Oxycodone HCl (Oxyir) 7.5 mg PO Q6H PRN PRN PRN Reason: SEVERE PAIN (6-10/10) Last Admin: 05/15/18 01:52 Dose: 7.5 mg Pantoprazole Sodium (Protonix) 40 mg PO BID [facility] Last Admin: 05/14/18 21:08 Dose: 40 mg Pramipexole Dihydrochloride (Mirapex) 0.25 mg PO QHS [facility] Last Admin: 05/14/18 21:08 Dose: 0.25 mg Sevelamer Carbonate (Renvela) 1,600 mg PO TIDCM [facility] Last Admin: 05/14/18 16:51 Dose: 1,600 mg Sodium Chloride () 5 - 15 ml IV UD PRN PRN Reason: SALINE FLUSH Last Admin: 05/11/18 05:03 Dose: 10 ml Medical Necessity - Tobacco Use Smoking Status: Former smoker Tobacco Use: Non-smoker Assessment/Plan All Active Problems (Last Updated 05/11/18 @ 10:46 by Chaim Jauregui DO) GI bleed (Acute) Acute blood loss anemia (Acute) Abnormal laboratory test (Acute) 1. acute blood loss anemia stable Hg down to 6.6, baseline around 9.6 improved after 3 units PRBCs--no need for additional units at this time. EGD and colonoscopy showed no obvious source, but blood was noted in cecum (suspected source somewhere in small bowel) Bleeding scan negative. 2. GI bleed resolved as above. 3. Anasarca no obvious cirrhosis on US/CTs may be due to pulmonary HTN (per echo on 02/27, RVSP may have been underestimated), malnutrition fluid restrict HD per renal advised pt no indication for paracentesis at this time (would want to be more distended before doing so, currently soft). Discussed risks and benefits of paracentesis with patient including infection and extraction of protein 4. ESRD dialysis per nephrology. last HD on 05.15 5. DVT proph: SCDs 6. Malnutrition moderated complicated overall care consult dietary. 7. Ascites unclear etiology. previous abdominal imaging did not show obvious cirrhosis may be due to her ESRD v cirrhosis v malignancy ovaries were removed during hysterectomy (did not have ovarian cancer) does have h/o squamous cell skin cancer (no melanoma) will perform paracentesis and check pathology (not done last time) to r/o malignant etiology will order ascites albumin (send out test). given her coagulopathy, pancytopenia, ascites; this seems more like cirrhotic Dr. Wright, of radiology, said paracentesis can be done tomorrow, but will need to hol ASA, plavix. INR will need to be less than 2. Code Visit Inpatient E&M: 94776 Subs Hosp L2
--- NOTE | 2018-05-15 09:52 | PN_ITS ---
Patient Problems: Active and Suspected Problems (Last Updated 05/11/18 @ 10:46 by Chaim Jauregui DO) GI bleed (Acute) Acute blood loss anemia (Acute) Abnormal laboratory test (Acute) Subjective: No further bleeding. Abdomen getting more distended. Vitals/I&O's: Vital Signs Temp Pulse Resp BP Pulse Ox 36.4 C L 59 L 18 116/34 L 99 05/15/18 08:40 05/15/18 08:40 05/15/18 08:40 05/15/18 08:40 05/15/18 08:40 Oxygen Flow Rate (L/min) 2 Oxygen Delivery Method Nasal Cannula Weight: 90.8 kg Body Mass Index (BMI) 31.6 Finger Stick Blood Glucose 99 Intake and Output for Last 24 Hours 05/13/18 05/14/18 05/15/18 23:59 23:59 23:59 Intake Total 750 / 750 880 / 880 150 / 150 Output Total 0 / 0 0 / 0 Balance 750 / 750 880 / 880 150 / 150 General: Alert, Cooperative, No apparent distress HEENT: Atraumatic, Normocephalic Oral: Moist Mucosa, No Gingival or Mucosal Lesions/ Ulcerations Neck: No Nodes, Thyroid Normal Size and Texture Lungs: Clear to auscultation, Normal air movement, No rhonchi, No wheeze Cardiovascular: Regular rate, Regular Rhythm, Normal S1, Normal S2, No murmurs Abdomen: Bowel Sounds Present, Soft, Non Tender, Distended Extremities: No Calf Tenderness, Edema Skin: No rashes, No breakdown Psych/Mental Status: Normal Affect, Appropriate Laboratory Results 05/14/18 05:45: Vitamin B12 696 05/14/18 05:45: Iron 33 L, TIBC 207 L, Iron Saturation 15.9, Ferritin 852 H, Rheumatoid Factor 12.0 05/14/18 05:45: Total Bilirubin 0.50, Direct Bilirubin 0.27, AST 15, ALT 9 L, Alkaline Phosphatase 127 H, Total Protein 6.1 L, Albumin 2.6 L, Globulin 3.5 05/14/18 12:00: POC Glucose 152 H 05/14/18 16:49: POC Glucose 136 H 05/14/18 21:06: POC Glucose 155 H 05/15/18 05:24: ELIER Screen Pending, [place]-1 Antibody Pending, SS-A/Ro IgG Antibody Pending, SS-B/La IgG Antibody Pending, Sm (Ty) Antibody Pending, BRAKER PASSENGER TRAIN Antibody Pending, Scl-70 Scleroderma Ab Pending, Double Strand DNA Ab Pending, Centromere B Antibody Pending 05/15/18 05:24: RBC Folate Hemolysate Pending, RBC Folate Pending, Hematocrit Pending 05/15/18 05:24: WBC 2.7 L, RBC 3.00 L, Hgb 8.2 L, Hct 27.4 L, MCV 91.3, MCH 27.3, MCHC 29.9 L, RDW 18.6 H, RDW Differential 60.9 H, Plt Count 78 L, MPV 10.5 05/15/18 05:24: Sodium 133 L, Potassium 4.5, Chloride 94 L, Carbon Dioxide 28.0, BUN 26 H, Creatinine 4.38 H, Estim Creat Clear Calc 9.99, Est GFR (MDRD) Af Amer 13 L, Est GFR (MDRD) Non-Af 10 L, BUN/Creatinine Ratio 5.9 L, Glucose 107 H, Calcium 8.8, Phosphorus 2.9, Albumin 2.5 L 05/15/18 05:24: PT 21.1 H, INR 1.8 05/15/18 06:56: POC Glucose 105 Current Medications Acetaminophen (Tylenol) 650 mg PO Q6H PRN PRN PRN Reason: Mild Pain (1-3)/Temp > 100.7 F Last Admin: 05/15/18 05:34 Dose: 650 mg Acetaminophen (Tylenol) 325 mg PO Q6H PRN PRN PRN Reason: PAIN Last Admin: 05/13/18 00:19 Dose: 325 mg Atorvastatin Calcium (Lipitor) 80 mg PO QHS [facility] Last Admin: 05/14/18 21:08 Dose: 80 mg Calcium Acetate (Phoslo Gel Cap) 2,001 mg PO TIDAC [facility] Last Admin: 05/15/18 06:57 Dose: 2,001 mg Carvedilol (Coreg) 12.5 mg PO BID [facility] Last Admin: 05/14/18 21:09 Dose: 12.5 mg Docusate Calcium (Surfak) 240 mg PO BID [facility] Last Admin: 05/14/18 21:08 Dose: 240 mg Doxazosin Mesylate (Cardura) 8 mg PO QHS [facility] Last Admin: 05/14/18 21:08 Dose: 8 mg Gabapentin (Neurontin) 100 mg PO TIDCM [facility] Last Admin: 05/14/18 16:52 Dose: 100 mg Insulin Human Lispro (Humalog Kwikpen (Bkc)) 0 unit SC [facility]; Protocol Last Admin: 05/15/18 06:57 Dose: Not Given Isosorbide Mononitrate (Imdur) 30 mg PO BID [facility] Last Admin: 05/14/18 21:08 Dose: 30 mg Lactulose (Chronulac, Cephulac) 26.666 gm PO DAILY PRN PRN PRN Reason: Constipation Losartan Potassium (Cozaar) 50 mg PO BID [facility] Last Admin: 05/14/18 21:09 Dose: 50 mg Oxycodone HCl (Oxyir) 7.5 mg PO Q6H PRN PRN PRN Reason: SEVERE PAIN (6-10/10) Last Admin: 05/15/18 01:52 Dose: 7.5 mg Pantoprazole Sodium (Protonix) 40 mg PO BID [facility] Last Admin: 05/14/18 21:08 Dose: 40 mg Pramipexole Dihydrochloride (Mirapex) 0.25 mg PO QHS [facility] Last Admin: 05/14/18 21:08 Dose: 0.25 mg Sevelamer Carbonate (Renvela) 1,600 mg PO TIDCM [facility] Last Admin: 05/14/18 16:51 Dose: 1,600 mg Sodium Chloride () 5 - 15 ml IV UD PRN PRN Reason: SALINE FLUSH Last Admin: 05/11/18 05:03 Dose: 10 ml Medical Necessity - Tobacco Use Smoking Status: Former smoker Tobacco Use: Non-smoker Assessment/Plan All Active Problems (Last Updated 05/11/18 @ 10:46 by Chaim Jauregui DO) GI bleed (Acute) Acute blood loss anemia (Acute) Abnormal laboratory test (Acute) 1. acute blood loss anemia * stable * Hg down to 6.6, baseline around 9.6 * improved after 3 units PRBCs--no need for additional units at this time. * EGD and colonoscopy showed no obvious source, but blood was noted in cecum (suspected source somewhere in small bowel) * Bleeding scan negative. 2. GI bleed * resolved * as above. 3. Anasarca * no obvious cirrhosis on US/CTs * may be due to pulmonary HTN (per echo on 02/27, RVSP may have been underestimated), malnutrition * fluid restrict * HD per renal * advised pt no indication for paracentesis at this time (would want to be more distended before doing so, currently soft). Discussed risks and benefits of paracentesis with patient including infection and extraction of protein 4. ESRD * dialysis per nephrology. * last HD on 05.15 5. DVT proph: SCDs 6. Malnutrition * moderated * complicated overall care * consult dietary. 7. Ascites * unclear etiology. previous abdominal imaging did not show obvious cirrhosis * may be due to her ESRD v cirrhosis v malignancy * ovaries were removed during hysterectomy (did not have ovarian cancer) * does have h/o squamous cell skin cancer (no melanoma) * will perform paracentesis and check pathology (not done last time) to r/o malignant etiology * will order ascites albumin (send out test). * given her coagulopathy, pancytopenia, ascites; this seems more like cirrhotic * Dr. Wright, of radiology, said paracentesis can be done tomorrow, but will need to hol ASA, plavix. INR will need to be less than 2. * Code Visit Inpatient E&M: 82482 Subs Hosp L2
[2018-05-15 10:07] LABS: Albumin, Serum 2.6 g/dL (3.2-5.0)
--- NOTE | 2018-05-15 12:20 | DIALYSIS ---
HD X 4 HRS UF -3200 ML TOLERATED WELL. STASIS AT [facility]. DSG AT [facility]. REPORT GIVEN TO KIM JESUS
[2018-05-15] MEDS: Isosorbide Mononitrate 30 MG Tablet PO ×2 (12:44→21:19)
[2018-05-15] MEDS: Gabapentin 100 MG Capsule PO ×2 (12:44→17:04)
[2018-05-15] MEDS: Losartan Potassium 50 MG Tablet PO ×2 (12:44→21:19)
[2018-05-15] MEDS: Pantoprazole Sodium 40 MG Tablet PO ×2 (12:44→21:19)
[2018-05-15] MEDS: SEVELAMER CARBONATE 800 MG TABLET 1600 MG PO ×2 (12:44→17:04)
[2018-05-15] MEDS: Carvedilol 12.5 MG Tablet PO ×2 (12:45→21:19)
[2018-05-15 12:56] LABS: Bedside Glucose 120 mg/dL (70-110)
[2018-05-15 14:50] VITALS: BP 121/40; PULSE 63; RESP 18; TEMP 36.6; O2SAT 97
[2018-05-15 17:31] LABS: Bedside Glucose 141 mg/dL (70-110)
[2018-05-15 21:05] VITALS: BP 115/47; PULSE 69; RESP 16; TEMP 36.7; O2SAT 97
[2018-05-15] MEDS: Atorvastatin Calcium 80 MG Tablet PO (21:19)
[2018-05-15] MEDS: Doxazosin 4 MG Tablet 8 MG PO (21:19)
[2018-05-15] MEDS: Pramipexole Di-HCl 0.25 MG Tablet PO (21:21)
[2018-05-15] MEDS: Insulin Lispro 100 UNIT/ML INSULN.PEN SC (21:33)
[2018-05-15 23:31] LABS: Bedside Glucose 171 mg/dL (70-110)
[2018-05-16] MEDS: oxyCODONE 5 MG Tablet 7.5 MG PO ×3 (00:14→17:01)
[2018-05-16] MEDS: Acetaminophen 325 MG Tablet 650 MG PO ×2 (00:15→17:00)
[2018-05-16 04:44] VITALS: BP 112/48; PULSE 54; RESP 16; TEMP 36.6; O2SAT 97
[2018-05-16] MEDS: Acetaminophen 325 MG Tablet PO (05:01)
[2018-05-16 06:02] LABS: Absolute Lymphocyte Count 0.87 X10^3/ul (0.83-4.51); Absolute Neutrophil Count 1.2 X10^3/uL (2.0-7.7); Basophil# 0.02 X10^3/uL; Basophil% 0.8 % (0-1); Eosinophil# 0.09 X10^3/uL; Eosinophils% 3.6 % (0-5); Hematocrit 28.1 % (37-47); Hemoglobin 8.3 g/dl (12.0-15.0); Lymphocyte # 0.87 X10^3/ul (4.0); Lymphocyte % 34.4 % (19-41); Mean Corp Hgb Conc 29.5 g/gl (32-36); Mean Corpuscular Hgb 27.9 pg (27.0-32.0); Mean Corpuscular Volume 94.6 fL (81-99); Mean Platelet Vol. 10.4 fl (6.2-12.0); Monocyte# 0.31 X10^3/uL; Monocyte% 12.3 % (0-10); Neutrophil # 1.24 X10^3/uL (2.7-7.7); Neutrophil % 48.9 % (47-70); Platelet Count 72 K/mm3 (150-450); RBC Distribution Width CV 18.8 % (11.6-14.6); Red Blood Count 2.97 M/mm3 (4.2-5.4); White Blood Count 2.5 K/mm3 (4.4-11.0)
[2018-05-16 06:18] LABS: Anion Gap 7 (5-15); BUN 17 mg/dL (7-18); BUN/Creat Ratio 5.3 RATIO (10-20); Calcium,Total 8.3 mg/dL (8.5-10.1); Chloride 95 mmol/L (98-107); Creatinine, Serum 3.23 mg/dL (0.55-1.02); EST Glomerular Filtration Rate 15 mL/min (>60); Est Glom Filt Rate - Afr Amer 18 mL/min (>60); Estimated Creatinine Clearance 13.54 ml/min; Glucose 109 mg/dL (74-106); Potassium 3.6 mmol/L (3.5-5.1); Sodium Level 132 mmol/L (136-145)
[2018-05-16] MEDS: Calcium Acetate 667 MG Capsule 2001 MG PO ×2 (06:18→16:47)
[2018-05-16 06:22] LABS: POSITIVE COUNT NO; POSITIVE DIFFERENTIAL NO; POSITIVE MORPHOLOGY NO
[2018-05-16 06:31] LABS: Bedside Glucose 116 mg/dL (70-110)
[2018-05-16 06:53] LABS: International Normalized Ratio 1.5
[2018-05-16 08:52] VITALS: BP 141/49; PULSE 57; RESP 18; TEMP 36.7; O2SAT 94
[2018-05-16] MEDS: Losartan Potassium 50 MG Tablet PO ×2 (08:55→22:34)
[2018-05-16] MEDS: Gabapentin 100 MG Capsule PO ×3 (08:55→16:50)
[2018-05-16] MEDS: SEVELAMER CARBONATE 800 MG TABLET 1600 MG PO ×2 (08:55→16:50)
[2018-05-16] MEDS: Isosorbide Mononitrate 30 MG Tablet PO ×2 (08:56→22:34)
[2018-05-16] MEDS: Carvedilol 12.5 MG Tablet PO ×2 (08:56→22:33)
[2018-05-16] MEDS: Pantoprazole Sodium 40 MG Tablet PO ×2 (08:57→22:35)
--- NOTE | 2018-05-16 09:03 | PN.RENAL_ITS ---
Subjective: abdominal distension persists. Breathing stable. BLE edema on fluid restriction. - Physical Exam General: Alert, Oriented x3, Cooperative, No apparent distress Lungs: Clear to auscultation Cardiovascular: Regular rate Abdomen: Bowel Sounds Present, Soft, Distended, Obese Extremities: Edema Psych/Mental Status: Alert and oriented to time, place, person, mood and affect Vital Signs Temp Pulse Resp BP Pulse Ox 98.0 F 57 L 18 141/49 H 94 05/16/18 08:52 05/16/18 08:52 05/16/18 08:52 05/16/18 08:52 05/16/18 08:52 Oxygen Flow Rate (L/min) 2 Oxygen Delivery Method Room Air Weight: 88.8 kg Body Mass Index (BMI) 31.6 Finger Stick Blood Glucose 99 Intake and Output for Last 24 Hours 05/14/18 05/15/18 05/16/18 23:59 23:59 23:59 Intake Total 880 / 880 880 / 880 240 / 240 Output Total 0 / 0 3200 / 3200 Balance 880 / 880 -2320 / -2320 240 / 240 Laboratory Tests Past 24 Hrs 05/15/18 05/15/18 05/16/18 05:24 05:24 05:35 WBC 2.5 L RBC 2.97 L Hgb 8.3 L Hct 28.1 L MCV 94.6 MCH 27.9 MCHC 29.5 L RDW 18.8 H RDW Differential 61.0 H Plt Count 72 L MPV 10.4 Immature Gran % (Auto) 0.000 Neut % (Auto) 48.9 Lymph % (Auto) 34.4 [place] % (Auto) 12.3 H Eos % (Auto) 3.6 Baso % (Auto) 0.8 Absolute Neuts (auto) 1.2 L Absolute Lymphs (auto) 0.87 Total Counted Not Reportable PT INR Sodium 133 L Potassium 4.5 Chloride 94 L Carbon Dioxide 28.0 Anion Gap Cancelled BUN 26 H Creatinine 4.38 H Estim Creat Clear Calc 9.99 Est GFR (MDRD) Af Amer 13 L Est GFR (MDRD) Non-Af 10 L BUN/Creatinine Ratio 5.9 L Glucose 107 H Calcium 8.8 Phosphorus 2.9 Albumin 2.5 L 2.6 L 05/16/18 05/16/18 05:35 05:35 WBC RBC Hgb Hct MCV MCH MCHC RDW RDW Differential Plt Count MPV Immature Gran % (Auto) Neut % (Auto) Lymph % (Auto) [place] % (Auto) Eos % (Auto) Baso % (Auto) Absolute Neuts (auto) Absolute Lymphs (auto) Total Counted PT 18.0 H INR 1.5 Sodium 132 L Potassium 3.6 Chloride 95 L Carbon Dioxide 30.0 Anion Gap 7 BUN 17 Creatinine 3.23 H Estim Creat Clear Calc 13.54 Est GFR (MDRD) Af Amer 18 L Est GFR (MDRD) Non-Af 15 L BUN/Creatinine Ratio 5.3 L Glucose 109 H Calcium 8.3 L Phosphorus Albumin POC Glucose 05/16/18 05/15/18 05/15/18 06:21 21:32 17:02 POC Glucose 116 H 171 H 141 H 05/15/18 12:41 POC Glucose 120 H Medical Necessity - Tobacco Use Smoking Status: Former smoker Tobacco Use: Non-smoker Assessment/Plan All Active Problems (Last Updated 05/11/18 @ 10:46 by Chaim Jauregui DO) GI bleed (Acute) Acute blood loss anemia (Acute) Abnormal laboratory test (Acute) 1. ESRD Next tx Sunday. 2. Acute GI bleed hgb stable 3. HTN stable 4. DM2 primary service mgmt 5. Ascites hx paracentesis. scheduled for paracentesis pending
--- NOTE | 2018-05-16 09:05 | PCM.PN.HOSP ---
Patient Problems: Active and Suspected Problems (Last Updated 05/11/18 @ 10:46 by Chaim Jauregui DO) GI bleed (Acute) Acute blood loss anemia (Acute) Subjective: Abdominal distention worse today. Vitals/I&O's: Vital Signs Temp Pulse Resp BP Pulse Ox 36.7 C 57 L 18 141/49 H 94 05/16/18 08:52 05/16/18 08:52 05/16/18 08:52 05/16/18 08:52 05/16/18 08:52 Oxygen Flow Rate (L/min) 2 Oxygen Delivery Method Room Air Weight: 88.8 kg Body Mass Index (BMI) 31.6 Finger Stick Blood Glucose 99 Intake and Output for Last 24 Hours 05/14/18 05/15/18 05/16/18 23:59 23:59 23:59 Intake Total 880 / 880 880 / 880 240 / 240 Output Total 0 / 0 3200 / 3200 Balance 880 / 880 -2320 / -2320 240 / 240 General: Alert, No apparent distress HEENT: Atraumatic, Normocephalic Oral: Moist Mucosa, No Gingival or Mucosal Lesions/ Ulcerations Lungs: Clear to auscultation, Normal air movement, No rhonchi, No wheeze Cardiovascular: Regular rate, Regular Rhythm, Normal S1, Normal S2, No murmurs Abdomen: Bowel Sounds Present, Soft, Non Tender, Tender - not taut Extremities: No Calf Tenderness, Edema Skin: No rashes, No breakdown Psych/Mental Status: Normal Affect, Appropriate Laboratory Results 05/15/18 05:24: Sodium 133 L, Potassium 4.5, Chloride 94 L, Carbon Dioxide 28.0, Anion Gap Cancelled, BUN 26 H, Creatinine 4.38 H, Estim Creat Clear Calc 9.99, Est GFR (MDRD) Af Amer 13 L, Est GFR (MDRD) Non-Af 10 L, BUN/Creatinine Ratio 5.9 L, Glucose 107 H, Calcium 8.8, Phosphorus 2.9, Albumin 2.5 L 05/15/18 05:24: Albumin 2.6 L 05/15/18 12:41: POC Glucose 120 H 05/15/18 17:02: POC Glucose 141 H 05/15/18 21:32: POC Glucose 171 H 05/16/18 05:35: WBC 2.5 L, RBC 2.97 L, Hgb 8.3 L, Hct 28.1 L, MCV 94.6, MCH 27.9, MCHC 29.5 L, RDW 18.8 H, RDW Differential 61.0 H, Plt Count 72 L, MPV 10.4, Immature Gran % (Auto) 0.000, Neut % (Auto) 48.9, Lymph % (Auto) 34.4, [place] % (Auto) 12.3 H, Eos % (Auto) 3.6, Baso % (Auto) 0.8, Absolute Neuts (auto) 1.2 L, Absolute Lymphs (auto) 0.87, Total Counted Not Reportable 05/16/18 05:35: PT 18.0 H, INR 1.5 05/16/18 05:35: Sodium 132 L, Potassium 3.6, Chloride 95 L, Carbon Dioxide 30.0, Anion Gap 7, BUN 17, Creatinine 3.23 H, Estim Creat Clear Calc 13.54, Est GFR (MDRD) Af Amer 18 L, Est GFR (MDRD) Non-Af 15 L, BUN/Creatinine Ratio 5.3 L, Glucose 109 H, Calcium 8.3 L 05/16/18 06:21: POC Glucose 116 H Current Medications Acetaminophen (Tylenol) 650 mg PO Q6H PRN PRN PRN Reason: Mild Pain (1-3)/Temp > 100.7 F Last Admin: 05/16/18 00:15 Dose: 650 mg Acetaminophen (Tylenol) 325 mg PO Q6H PRN PRN PRN Reason: PAIN Last Admin: 05/16/18 05:01 Dose: 325 mg Atorvastatin Calcium (Lipitor) 80 mg PO QHS [facility] Last Admin: 05/15/18 21:19 Dose: 80 mg Calcium Acetate (Phoslo Gel Cap) 2,001 mg PO TIDAC [facility] Last Admin: 05/16/18 06:18 Dose: 2,001 mg Carvedilol (Coreg) 12.5 mg PO BID [facility] Last Admin: 05/16/18 08:56 Dose: 12.5 mg Docusate Calcium (Surfak) 240 mg PO BID [facility] Last Admin: 05/16/18 08:57 Dose: 240 mg Doxazosin Mesylate (Cardura) 8 mg PO QHS [facility] Last Admin: 05/15/18 21:19 Dose: 8 mg Gabapentin (Neurontin) 100 mg PO TIDCM [facility] Last Admin: 05/16/18 08:55 Dose: 100 mg Insulin Human Lispro (Humalog Kwikpen (Bkc)) 0 unit SC ACHS [facility]; Protocol Last Admin: 05/16/18 06:22 Dose: Not Given Isosorbide Mononitrate (Imdur) 30 mg PO BID [facility] Last Admin: 05/16/18 08:56 Dose: 30 mg Lactulose (Chronulac, Cephulac) 26.666 gm PO DAILY PRN PRN PRN Reason: Constipation Losartan Potassium (Cozaar) 50 mg PO BID [facility] Last Admin: 05/16/18 08:55 Dose: 50 mg Oxycodone HCl (Oxyir) 7.5 mg PO Q6H PRN PRN PRN Reason: SEVERE PAIN (6-10/10) Last Admin: 05/16/18 00:14 Dose: 7.5 mg Pantoprazole Sodium (Protonix) 40 mg PO BID [facility] Last Admin: 05/16/18 08:57 Dose: 40 mg Pramipexole Dihydrochloride (Mirapex) 0.25 mg PO QHS [facility] Last Admin: 05/15/18 21:21 Dose: 0.25 mg Sevelamer Carbonate (Renvela) 1,600 mg PO TIDCM [facility] Last Admin: 05/16/18 08:55 Dose: 1,600 mg Sodium Chloride () 5 - 15 ml IV UD PRN PRN Reason: SALINE FLUSH Last Admin: 05/11/18 05:03 Dose: 10 ml Medical Necessity - Tobacco Use Smoking Status: Former smoker Tobacco Use: Non-smoker Assessment/Plan All Active Problems (Last Updated 05/11/18 @ 10:46 by Chaim Jauregui DO) GI bleed (Acute) Acute blood loss anemia (Acute) Abnormal laboratory test (Acute) 1. acute blood loss anemia stable Hg down to 6.6, baseline around 9.6 improved after 3 units PRBCs--no need for additional units at this time. EGD and colonoscopy showed no obvious source, but blood was noted in cecum (suspected source somewhere in small bowel) Bleeding scan negative. 2. GI bleed resolved as above. 3. Anasarca no obvious cirrhosis on US/CTs may be due to pulmonary HTN (per echo on 02/27, RVSP may have been underestimated), malnutrition fluid restrict HD per renal advised pt no indication for paracentesis at this time (would want to be more distended before doing so, currently soft). Discussed risks and benefits of paracentesis with patient including infection and extraction of protein 4. ESRD dialysis per nephrology. last HD on 05.15 5. DVT proph: SCDs 6. Malnutrition moderated complicated overall care consult dietary. 7. Ascites unclear etiology. previous abdominal imaging did not show obvious cirrhosis may be due to her ESRD v cirrhosis v malignancy ovaries were removed during hysterectomy (did not have ovarian cancer) does have h/o squamous cell skin cancer (no melanoma) will perform paracentesis and check pathology (not done last time) to r/o malignant etiology will order ascites albumin (send out test). given her coagulopathy, pancytopenia, ascites; this seems more like cirrhotic Dr. Wright, of radiology, said paracentesis can be done tomorrow, but will need to hol ASA, plavix. INR will need to be less than 2. 8. Pancytopenia. chronic (dating back to November) follow up with hematology Cirrhosis v. hematologic v other 9. CAD last PCI in 2017. resume ASA after paracentesis hold Plavix for 2 weeks follow up with cardiology on HIS, but may not be of benefit in ESRD. Code Visit Inpatient E&M: 93472 Subs Hosp L2
--- NOTE | 2018-05-16 09:13 | PN_ITS ---
Patient Problems: Active and Suspected Problems (Last Updated 05/11/18 @ 10:46 by Chaim Jauregui DO) GI bleed (Acute) Acute blood loss anemia (Acute) Subjective: Abdominal distention worse today. Vitals/I&O's: Vital Signs Temp Pulse Resp BP Pulse Ox 36.7 C 57 L 18 141/49 H 94 05/16/18 08:52 05/16/18 08:52 05/16/18 08:52 05/16/18 08:52 05/16/18 08:52 Oxygen Flow Rate (L/min) 2 Oxygen Delivery Method Room Air Weight: 88.8 kg Body Mass Index (BMI) 31.6 Finger Stick Blood Glucose 99 Intake and Output for Last 24 Hours 05/14/18 05/15/18 05/16/18 23:59 23:59 23:59 Intake Total 880 / 880 880 / 880 240 / 240 Output Total 0 / 0 3200 / 3200 Balance 880 / 880 -2320 / -2320 240 / 240 General: Alert, No apparent distress HEENT: Atraumatic, Normocephalic Oral: Moist Mucosa, No Gingival or Mucosal Lesions/ Ulcerations Lungs: Clear to auscultation, Normal air movement, No rhonchi, No wheeze Cardiovascular: Regular rate, Regular Rhythm, Normal S1, Normal S2, No murmurs Abdomen: Bowel Sounds Present, Soft, Non Tender, Tender - not taut Extremities: No Calf Tenderness, Edema Skin: No rashes, No breakdown Psych/Mental Status: Normal Affect, Appropriate Laboratory Results 05/15/18 05:24: Sodium 133 L, Potassium 4.5, Chloride 94 L, Carbon Dioxide 28.0, Anion Gap Cancelled, BUN 26 H, Creatinine 4.38 H, Estim Creat Clear Calc 9.99, Est GFR (MDRD) Af Amer 13 L, Est GFR (MDRD) Non-Af 10 L, BUN/Creatinine Ratio 5.9 L, Glucose 107 H, Calcium 8.8, Phosphorus 2.9, Albumin 2.5 L 05/15/18 05:24: Albumin 2.6 L 05/15/18 12:41: POC Glucose 120 H 05/15/18 17:02: POC Glucose 141 H 05/15/18 21:32: POC Glucose 171 H 05/16/18 05:35: WBC 2.5 L, RBC 2.97 L, Hgb 8.3 L, Hct 28.1 L, MCV 94.6, MCH 27 .9, MCHC 29.5 L, RDW 18.8 H, RDW Differential 61.0 H, Plt Count 72 L, MPV 10.4, Immature Gran % (Auto) 0.000, Neut % (Auto) 48.9, Lymph % (Auto) 34.4, [place] % (Auto) 12.3 H, Eos % (Auto) 3.6, Baso % (Auto) 0.8, Absolute Neuts (auto) 1.2 L, Absolute Lymphs (auto) 0.87, Total Counted Not Reportable 05/16/18 05:35: PT 18.0 H, INR 1.5 05/16/18 05:35: Sodium 132 L, Potassium 3.6, Chloride 95 L, Carbon Dioxide 30.0, Anion Gap 7, BUN 17, Creatinine 3.23 H, Estim Creat Clear Calc 13.54, Est GFR (MDRD) Af Amer 18 L, Est GFR (MDRD) Non-Af 15 L, BUN/Creatinine Ratio 5.3 L, Glucose 109 H, Calcium 8.3 L 05/16/18 06:21: POC Glucose 116 H Current Medications Acetaminophen (Tylenol) 650 mg PO Q6H PRN PRN PRN Reason: Mild Pain (1-3)/Temp > 100.7 F Last Admin: 05/16/18 00:15 Dose: 650 mg Acetaminophen (Tylenol) 325 mg PO Q6H PRN PRN PRN Reason: PAIN Last Admin: 05/16/18 05:01 Dose: 325 mg Atorvastatin Calcium (Lipitor) 80 mg PO QHS [facility] Last Admin: 05/15/18 21:19 Dose: 80 mg Calcium Acetate (Phoslo Gel Cap) 2,001 mg PO TIDAC [facility] Last Admin: 05/16/18 06:18 Dose: 2,001 mg Carvedilol (Coreg) 12.5 mg PO BID [facility] Last Admin: 05/16/18 08:56 Dose: 12.5 mg Docusate Calcium (Surfak) 240 mg PO BID [facility] Last Admin: 05/16/18 08:57 Dose: 240 mg Doxazosin Mesylate (Cardura) 8 mg PO QHS [facility] Last Admin: 05/15/18 21:19 Dose: 8 mg Gabapentin (Neurontin) 100 mg PO TIDCM [facility] Last Admin: 05/16/18 08:55 Dose: 100 mg Insulin Human Lispro (Humalog Kwikpen (Bkc)) 0 unit SC ACHS [facility]; Protocol Last Admin: 05/16/18 06:22 Dose: Not Given Isosorbide Mononitrate (Imdur) 30 mg PO BID [facility] Last Admin: 05/16/18 08:56 Dose: 30 mg Lactulose (Chronulac, Cephulac) 26.666 gm PO DAILY PRN PRN PRN Reason: Constipation Losartan Potassium (Cozaar) 50 mg PO BID [facility] Last Admin: 05/16/18 08:55 Dose: 50 mg Oxycodone HCl (Oxyir) 7.5 mg PO Q6H PRN PRN PRN Reason: SEVERE PAIN (6-10/10) Last Admin: 05/16/18 00:14 Dose: 7.5 mg Pantoprazole Sodium (Protonix) 40 mg PO BID [facility] Last Admin: 05/16/18 08:57 Dose: 40 mg Pramipexole Dihydrochloride (Mirapex) 0.25 mg PO QHS [facility] Last Admin: 05/15/18 21:21 Dose: 0.25 mg Sevelamer Carbonate (Renvela) 1,600 mg PO TIDCM [facility] Last Admin: 05/16/18 08:55 Dose: 1,600 mg Sodium Chloride () 5 - 15 ml IV UD PRN PRN Reason: SALINE FLUSH Last Admin: 05/11/18 05:03 Dose: 10 ml Medical Necessity - Tobacco Use Smoking Status: Former smoker Tobacco Use: Non-smoker Assessment/Plan All Active Problems (Last Updated 05/11/18 @ 10:46 by Chaim Jauregui DO) GI bleed (Acute) Acute blood loss anemia (Acute) Abnormal laboratory test (Acute) 1. acute blood loss anemia * stable * Hg down to 6.6, baseline around 9.6 * improved after 3 units PRBCs--no need for additional units at this time. * EGD and colonoscopy showed no obvious source, but blood was noted in cecum (suspected source somewhere in small bowel) * Bleeding scan negative. 2. GI bleed * resolved * as above. 3. Anasarca * no obvious cirrhosis on US/CTs * may be due to pulmonary HTN (per echo on 02/27, RVSP may have been underestimated), malnutrition * fluid restrict * HD per renal * advised pt no indication for paracentesis at this time (would want to be more distended before doing so, currently soft). Discussed risks and benefits of paracentesis with patient including infection and extraction of protein 4. ESRD * dialysis per nephrology. * last HD on 05.15 5. DVT proph: SCDs 6. Malnutrition * moderated * complicated overall care * consult dietary. 7. Ascites * unclear etiology. previous abdominal imaging did not show obvious cirrhosis * may be due to her ESRD v cirrhosis v malignancy * ovaries were removed during hysterectomy (did not have ovarian cancer) * does have h/o squamous cell skin cancer (no melanoma) * will perform paracentesis and check pathology (not done last time) to r/o malignant etiology * will order ascites albumin (send out test). * given her coagulopathy, pancytopenia, ascites; this seems more like cirrhotic * Dr. Wright, of radiology, said paracentesis can be done tomorrow, but will need to hol ASA, plavix. INR will need to be less than 2. 8. Pancytopenia. * chronic (dating back to November) * follow up with hematology * Cirrhosis v. hematologic v other 9. CAD * last PCI in 2016. * resume ASA after paracentesis * hold Plavix for 2 weeks * follow up with cardiology * on HIS, but may not be of benefit in ESRD. Code Visit Inpatient E&M: 25267 Subs Hosp L2
[2018-05-16 09:21] LABS: Bedside Glucose 111 mg/dL (70-110)
--- NOTE | 2018-05-16 12:07 | CASEMGMT ---
Social Work Note MARGO spoke with Lynda who is covering for Candelaria at [facility]. MARGO updated Lynda that pt is having a repeat paracentesis done today and if the results are good then pt could still discharge today. MARGO faxed updated clinicals to [facility]. 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
[2018-05-16 12:51] LABS: Bedside Glucose 165 mg/dL (70-110)
[2018-05-16 14:05] LABS: Folate, Hemolysate Test 498.2 ng/mL (Not Estab.); Folate, RBC (Hct) Test 23.2 % (34.0-46.6)
[2018-05-16 14:18] LABS: ANTINUCLEAR ANTIBODIES DIRECT Negative (Negative)
[2018-05-16 15:30] VITALS: BP 119/40; PULSE 63; RESP 18; TEMP 36.5; O2SAT 98
[2018-05-16 16:03] LABS: Folates, RBC Test 2147 ng/mL (>498)
[2018-05-16] MEDS: Phytonadione (Vit K) 10 MG/ML Ampul 5 MG PO (16:44)
[2018-05-16 17:46] LABS: Bedside Glucose 142 mg/dL (70-110)
[2018-05-16] MEDS: Lactulose 20 GM/30 ML UDC 26.666 GM PO (20:12)
[2018-05-16 20:21] VITALS: BP 131/43; PULSE 62; RESP 18; TEMP 36.6; O2SAT 97
[2018-05-16] MEDS: Doxazosin 4 MG Tablet 8 MG PO (22:34)
[2018-05-16] MEDS: Atorvastatin Calcium 80 MG Tablet PO (22:34)
[2018-05-16] MEDS: Nystatin Powder 15gm Bottle 1 APPLIC TOPICAL (22:35)
[2018-05-16] MEDS: Pramipexole Di-HCl 0.25 MG Tablet PO (22:35)
[2018-05-16 22:45] LABS: Bedside Glucose 139 mg/dL (70-110)
[2018-05-17] VITALS (7 sets, daily range): BP systolic 110–158; BP diastolic 40–77; PULSE 51–64; RESP 16–18; TEMP 36.5–36.7; O2SAT 94–98
--- NOTE | 2018-05-17 | FLU_PTH ---
PATIENT: ULISES CAR LOC: MS3 U#:[id number] AGE/SX: 73/F ROOM: [facility] [place] RE05/10/[address]: Dr. Chaim Jauregui DO : 1945 BED: 1 DIS: 05/18/2018 SPEC #: [id number] RECD: 05/17/18 14:29 STATUS: QUINTON REChencho #: [id number] RODERICK: 05/17/18 00:[address]: Chaim Jauregui DEPT: CYTOLOGY RECD BY: Diogo Pizarro ENTERED: 05/20/18 11:47 SP TYPE: Fluid OTHR DR: DO Dr. Allie Toledo DO Dr. Mark Tereletsky, DO Dr. Richard Guttman, MD Tissues: PARACENTESIS FLUID Procedures: Pap Stain (control) Special Stain Group II Surgery Specimen Level IV Cell Block Cytospin Fluid HEADER OPERATION: Ultrasound-guided paracentesis PRE-OP DIAGNOSIS: Rectal bleeding TISSUE SUBMITTED: Paracentesis fluid for cytology DIAGNOSIS CYTOLOGY Paracentesis fluid for cytology (cytospin): Negative for malignant cells. SOLEDAD:christina 05/22/18 COMMENT Please make reference to previous specimen ([id number]), paracentesis fluid for cytology with diagnosis of negative for malignant cells. CYTOLOGY STUDY Slides are reviewed. CYTOLOGY GROSS Received is 100 ml of cloudy ron fluid labeled with the patient's name and and designated per the requisition as paracentesis. Submitted for cytology preparation including cell block. 05/20/18 TC:5 CPT: 94602, 50912
[2018-05-17] MEDS: oxyCODONE 5 MG Tablet 7.5 MG PO ×3 (00:01→19:15)
[2018-05-17] MEDS: Acetaminophen 325 MG Tablet 650 MG PO ×3 (00:01→19:15)
[2018-05-17] MEDS: Calcium Acetate 667 MG Capsule 2001 MG PO ×2 (06:33→18:05)
[2018-05-17 06:46] LABS: Bedside Glucose 122 mg/dL (70-110)
[2018-05-17 08:28] LABS: Absolute Lymphocyte Count 0.86 X10^3/ul (0.83-4.51); Basophil# 0.02 X10^3/uL; Basophil% 0.6 % (0-1); Eosinophil# 0.07 X10^3/uL; Eosinophils% 2.2 % (0-5); Hematocrit 28.5 % (37-47); Hemoglobin 8.5 g/dl (12.0-15.0); Lymphocyte # 0.86 X10^3/ul (4.0); Lymphocyte % 26.9 % (19-41); Mean Corp Hgb Conc 29.8 g/gl (32-36); Mean Corpuscular Hgb 27.5 pg (27.0-32.0); Mean Corpuscular Volume 92.2 fL (81-99); Mean Platelet Vol. 9.4 fl (6.2-12.0); Monocyte# 0.28 X10^3/uL; Monocyte% 8.8 % (0-10); Neutrophil # 1.97 X10^3/uL (2.7-7.7); Neutrophil % 61.5 % (47-70); Platelet Count 75 K/mm3 (150-450); RBC Distribution Width SD 62.7 fl (35.1-43.9); Red Blood Count 3.09 M/mm3 (4.2-5.4); White Blood Count 3.2 K/mm3 (4.4-11.0)
[2018-05-17 08:30] LABS: POSITIVE COUNT NO; POSITIVE DIFFERENTIAL NO; POSITIVE MORPHOLOGY NO
[2018-05-17 08:46] LABS: Anion Gap 8 (5-15); BUN 22 mg/dL (7-18); BUN/Creat Ratio 5.4 RATIO (10-20); Calcium,Total 8.9 mg/dL (8.5-10.1); Chloride 94 mmol/L (98-107); Creatinine, Serum 4.09 mg/dL (0.55-1.02); EST Glomerular Filtration Rate 11 mL/min (>60); Est Glom Filt Rate - Afr Amer 14 mL/min (>60); Estimated Creatinine Clearance 10.69 ml/min; Glucose 126 mg/dL (74-106); Potassium 3.9 mmol/L (3.5-5.1); Sodium Level 130 mmol/L (136-145)
[2018-05-17 08:56] LABS: International Normalized Ratio 1.5; Prothrombin Time (Protime)PT. 18.2 SECONDS (11.7-14.9)
[2018-05-17 08:57] LABS: Partial Thromboplast Time 39.4 Seconds (24.1-36.2)
--- NOTE | 2018-05-17 09:42 | US_ITS ---
PROCEDURE: ULTRASOUND GUIDED PARACENTESIS CLINICAL HISTORY: Female, 73 years old. CONSENT: Time-Out Called: Yes. Consent form signed: Yes. PT-PTT Levels Checked: Yes. SEDATION: TECHNIQUE: FINDINGS: FLUID PRE-PROCEDURE Under ultrasound guidance and following proper aseptic preparation, minor sedation and local anesthesia: 5 Bengali catheter was inserted in the right side of the abdomen. Serosanguineous fluid aspirated, approximately 2820ml of fluid collected. US/Paracentesis with US IMPRESSION: Uneventful paracentesis. Electronically Signed: Adams Nicole, at 15:37 EST Tel , Service support ,
--- NOTE | 2018-05-17 09:50 | PCM.PN.REN ---
Subjective: seen on dialysis. Attempt 3.5L fluid removal. Scheduled for paracentesis today. - Physical Exam General: Alert, Oriented x3, Cooperative Lungs: Clear to auscultation Cardiovascular: Regular rate Abdomen: Bowel Sounds Present, Soft, Non Tender, Distended, Obese Extremities: Edema Musculoskeletal: No Muscle Wasting Psych/Mental Status: Alert and oriented to time, place, person, mood and affect Vital Signs Temp Pulse Resp BP Pulse Ox 97.7 F L 52 L 18 138/77 H 94 05/17/18 08:00 05/17/18 08:00 05/17/18 08:00 05/17/18 08:00 05/17/18 03:15 Oxygen Flow Rate (L/min) 2 Oxygen Delivery Method Room Air Weight: 89.2 kg Body Mass Index (BMI) 31.6 Finger Stick Blood Glucose 99 Intake and Output for Last 24 Hours 05/15/18 05/16/18 05/17/18 23:59 23:59 23:59 Intake Total 880 / 880 700 / 700 370 / 370 Output Total 3200 / 3200 100 / 100 Balance -2320 / -2320 600 / 600 370 / 370 Laboratory Tests Past 24 Hrs 05/15/18 05/15/18 05/17/18 05:24 05:24 08:00 WBC 3.2 L RBC 3.09 L Hgb 8.5 L Hct 28.5 L MCV 92.2 MCH 27.5 MCHC 29.8 L RDW 19.0 H RDW Differential 62.7 H Plt Count 75 L MPV 9.4 Immature Gran % (Auto) 0.000 Neut % (Auto) 61.5 Lymph % (Auto) 26.9 [place] % (Auto) 8.8 Eos % (Auto) 2.2 Baso % (Auto) 0.6 Absolute Neuts (auto) 2.0 Absolute Lymphs (auto) 0.86 Total Counted Not Reportable PT INR APTT Sodium Potassium Chloride Carbon Dioxide Anion Gap BUN Creatinine Estim Creat Clear Calc Est GFR (MDRD) Af Amer Est GFR (MDRD) Non-Af BUN/Creatinine Ratio Glucose Calcium RBC Folate Hemolysate 498.2 RBC Folate 2147 Hematocrit 23.2 L ELIER Screen Negative FLALON-1 Antibody Not Reportable SS-A/Ro IgG Antibody Not Reportable SS-B/La IgG Antibody Not Reportable Sm (Ty) Antibody Not Reportable HOSPITAL CHIEF FINANCIAL OFFICER Antibody Not Reportable Scl-70 Scleroderma Ab Not Reportable Double Strand DNA Ab Not Reportable Centromere B Antibody Not Reportable Blood Type 05/17/18 05/17/18 05/17/18 08:00 08:00 09:40 WBC RBC Hgb Hct MCV MCH MCHC RDW RDW Differential Plt Count MPV Immature Gran % (Auto) Neut % (Auto) Lymph % (Auto) [place] % (Auto) Eos % (Auto) Baso % (Auto) Absolute Neuts (auto) Absolute Lymphs (auto) Total Counted PT 18.2 H INR 1.5 APTT 39.4 H Sodium 130 L Potassium 3.9 Chloride 94 L Carbon Dioxide 28.0 Anion Gap 8 BUN 22 H Creatinine 4.09 H Estim Creat Clear Calc 10.69 Est GFR (MDRD) Af Amer 14 L Est GFR (MDRD) Non-Af 11 L BUN/Creatinine Ratio 5.4 L Glucose 126 H Calcium 8.9 RBC Folate Hemolysate RBC Folate Hematocrit ELIER Screen [place]-1 Antibody SS-A/Ro IgG Antibody SS-B/La IgG Antibody Sm (Ty) Antibody HOSPITAL CHIEF FINANCIAL OFFICER Antibody Scl-70 Scleroderma Ab Double Strand DNA Ab Centromere B Antibody Blood Type Pending POC Glucose 05/17/18 05/16/18 05/16/18 06:31 22:32 16:41 POC Glucose 122 H 139 H 142 H 05/16/18 12:12 POC Glucose 165 H Medical Necessity - Tobacco Use Smoking Status: Former smoker Tobacco Use: Non-smoker Assessment/Plan All Active Problems (Last Updated 05/11/18 @ 10:46 by Chaim Jauregui DO) GI bleed (Acute) Acute blood loss anemia (Acute) Abnormal laboratory test (Acute) 1. ESRD seen on dialysis. Attempt 3.5L fluid removal as tolerated 2. Acute GI bleed hgb stable 3. HTN stable 4. DM2 primary service mgmt 5. Ascites hx paracentesis. Repeat paracentesis today
--- NOTE | 2018-05-17 10:29 | PCM.PN.HOSP ---
Patient Problems: Active and Suspected Problems (Last Updated 05/11/18 @ 10:46 by Chaim Jauregui DO) GI bleed (Acute) Acute blood loss anemia (Acute) Vitals/I&O's: Vital Signs Temp Pulse Resp BP Pulse Ox 36.5 C L 52 L 18 138/77 H 94 05/17/18 08:00 05/17/18 08:00 05/17/18 08:00 05/17/18 08:00 05/17/18 03:15 Oxygen Flow Rate (L/min) 2 Oxygen Delivery Method Room Air Weight: 89.2 kg Body Mass Index (BMI) 31.6 Finger Stick Blood Glucose 99 Intake and Output for Last 24 Hours 05/15/18 05/16/18 05/17/18 23:59 23:59 23:59 Intake Total 880 / 880 700 / 700 370 / 370 Output Total 3200 / 3200 100 / 100 Balance -2320 / -2320 600 / 600 370 / 370 General: Alert, No apparent distress HEENT: Atraumatic, Normocephalic Neck: No Nodes, Thyroid Normal Size and Texture Lungs: Clear to auscultation, Normal air movement, No rhonchi, No wheeze Cardiovascular: Regular rate, Regular Rhythm, Normal S1, Normal S2 Abdomen: Bowel Sounds Present, Soft, Non Tender, Distended, Obese Extremities: Edema Psych/Mental Status: Normal Affect, Appropriate Laboratory Results 05/15/18 05:24: ELIER Screen Negative, FALLON-1 Antibody Not Reportable, SS-A/Ro IgG Antibody Not Reportable, SS-B/La IgG Antibody Not Reportable, Sm (Ty) Antibody Not Reportable, ACCESS SPECIALIST Antibody Not Reportable, Scl-70 Scleroderma Ab Not Reportable, Double Strand DNA Ab Not Reportable, Centromere B Antibody Not Reportable 05/15/18 05:24: RBC Folate Hemolysate 498.2, RBC Folate 2147, Hematocrit 23.2 L 05/16/18 12:12: POC Glucose 165 H 05/16/18 16:41: POC Glucose 142 H 05/16/18 22:32: POC Glucose 139 H 05/17/18 06:31: POC Glucose 122 H 05/17/18 08:00: WBC 3.2 L, RBC 3.09 L, Hgb 8.5 L, Hct 28.5 L, MCV 92.2, MCH 27.5, MCHC 29.8 L, RDW 19.0 H, RDW Differential 62.7 H, Plt Count 75 L, MPV 9.4, Immature Gran % (Auto) 0.000, Neut % (Auto) 61.5, Lymph % (Auto) 26.9, Anderson % (Auto) 8.8, Eos % (Auto) 2.2, Baso % (Auto) 0.6, Absolute Neuts (auto) 2.0, Absolute Lymphs (auto) 0.86, Total Counted Not Reportable 05/17/18 08:00: PT 18.2 H, INR 1.5, APTT 39.4 H 05/17/18 08:00: Sodium 130 L, Potassium 3.9, Chloride 94 L, Carbon Dioxide 28.0, Anion Gap 8, BUN 22 H, Creatinine 4.09 H, Estim Creat Clear Calc 10.69, Est GFR (MDRD) Af Amer 14 L, Est GFR (MDRD) Non-Af 11 L, BUN/Creatinine Ratio 5.4 L, Glucose 126 H, Calcium 8.9 05/17/18 09:40: Blood Type O NEGATIVE Current Medications Acetaminophen (Tylenol) 650 mg PO Q6H PRN PRN PRN Reason: Mild Pain (1-3)/Temp > 100.7 F Last Admin: 05/17/18 00:01 Dose: 650 mg Acetaminophen (Tylenol) 325 mg PO Q6H PRN PRN PRN Reason: PAIN Last Admin: 05/16/18 05:01 Dose: 325 mg Atorvastatin Calcium (Lipitor) 80 mg PO QHS [facility] Last Admin: 05/16/18 22:34 Dose: 80 mg Calcium Acetate (Phoslo Gel Cap) 2,001 mg PO TIDAC [facility] Last Admin: 05/17/18 06:33 Dose: 2,001 mg Carvedilol (Coreg) 12.5 mg PO BID [facility] Last Admin: 05/16/18 22:33 Dose: 12.5 mg Docusate Calcium (Surfak) 240 mg PO BID [facility] Last Admin: 05/16/18 22:36 Dose: 240 mg Doxazosin Mesylate (Cardura) 8 mg PO QHS [facility] Last Admin: 05/16/18 22:34 Dose: 8 mg Gabapentin (Neurontin) 100 mg PO TIDCM [facility] Last Admin: 05/17/18 08:27 Dose: Not Given Insulin Human Lispro (Humalog Kwikpen (Bkc)) 0 unit SC [facility]; Protocol Last Admin: 05/17/18 06:32 Dose: Not Given Isosorbide Mononitrate (Imdur) 30 mg PO BID [facility] Last Admin: 05/16/18 22:34 Dose: 30 mg Lactulose (Chronulac, Cephulac) 26.666 gm PO DAILY PRN PRN PRN Reason: Constipation Last Admin: 05/16/18 20:12 Dose: 26.666 gm Losartan Potassium (Cozaar) 50 mg PO BID [facility] Last Admin: 05/16/18 22:34 Dose: 50 mg Nystatin (Mycostatin Powder) 1 applic TOPICAL BID [facility]; Protocol Last Admin: 05/16/18 22:35 Dose: 1 applicatio Oxycodone HCl (Oxyir) 7.5 mg PO Q6H PRN PRN PRN Reason: SEVERE PAIN (6-10/10) Last Admin: 05/17/18 00:01 Dose: 7.5 mg Pantoprazole Sodium (Protonix) 40 mg PO BID [facility] Last Admin: 05/16/18 22:35 Dose: 40 mg Pramipexole Dihydrochloride (Mirapex) 0.25 mg PO QHS [facility] Last Admin: 05/16/18 22:35 Dose: 0.25 mg Sevelamer Carbonate (Renvela) 1,600 mg PO TIDCM [facility] Last Admin: 05/17/18 08:27 Dose: Not Given Sodium Chloride () 5 - 15 ml IV UD PRN PRN Reason: SALINE FLUSH Last Admin: 05/11/18 05:03 Dose: 10 ml Medical Necessity - Tobacco Use Smoking Status: Former smoker Tobacco Use: Non-smoker Assessment/Plan All Active Problems (Last Updated 05/11/18 @ 10:46 by Chaim Jauregui DO) GI bleed (Acute) Acute blood loss anemia (Acute) Abnormal laboratory test (Acute) 1. acute blood loss anemia stable Hg down to 6.6, baseline around 9.6 improved after 3 units PRBCs--no need for additional units at this time. EGD and colonoscopy showed no obvious source, but blood was noted in cecum (suspected source somewhere in small bowel) Bleeding scan negative. 2. GI bleed resolved as above. may require capsule endoscopy as outpt AVM v other process complicated by ASA and Plavix. 3. Anasarca no obvious cirrhosis on US/CTs may be due to pulmonary HTN (per echo on 02/27, RVSP may have been underestimated), malnutrition fluid restrict HD per renal advised pt no indication for paracentesis at this time (would want to be more distended before doing so, currently soft). Discussed risks and benefits of paracentesis with patient including infection and extraction of protein 4. ESRD dialysis per nephrology. last HD on 05.17 5. DVT proph: SCDs 6. Malnutrition moderated complicated overall care consult dietary. 7. Ascites unclear etiology. previous abdominal imaging did not show obvious cirrhosis may be due to her ESRD v cirrhosis v malignancy ovaries were removed during hysterectomy (did not have ovarian cancer) does have h/o squamous cell skin cancer (no melanoma) will perform paracentesis and check pathology (not done last time) to r/o malignant etiology will order ascites albumin (send out test). given her coagulopathy, pancytopenia, ascites; this seems more like cirrhotic IR now requesting INR be less than 1.3. Vitamin K yesterday was ineffective. Will give FFP 8. Pancytopenia. chronic (dating back to November) follow up with hematology Cirrhosis v. hematologic v other 9. CAD last PCI in 2017. resume ASA after paracentesis hold Plavix for 2 weeks follow up with cardiology on HIS, but may not be of benefit in ESRD. Code Visit Inpatient E&M: 04421 Subs Hosp L2
--- NOTE | 2018-05-17 10:34 | PN_ITS ---
Patient Problems: Active and Suspected Problems (Last Updated 05/11/18 @ 10:46 by Chaim Jauregui DO) GI bleed (Acute) Acute blood loss anemia (Acute) Vitals/I&O's: Vital Signs Temp Pulse Resp BP Pulse Ox 36.5 C L 52 L 18 138/77 H 94 05/17/18 08:00 05/17/18 08:00 05/17/18 08:00 05/17/18 08:00 05/17/18 03:15 Oxygen Flow Rate (L/min) 2 Oxygen Delivery Method Room Air Weight: 89.2 kg Body Mass Index (BMI) 31.6 Finger Stick Blood Glucose 99 Intake and Output for Last 24 Hours 05/15/18 05/16/18 05/17/18 23:59 23:59 23:59 Intake Total 880 / 880 700 / 700 370 / 370 Output Total 3200 / 3200 100 / 100 Balance -2320 / -2320 600 / 600 370 / 370 General: Alert, No apparent distress HEENT: Atraumatic, Normocephalic Neck: No Nodes, Thyroid Normal Size and Texture Lungs: Clear to auscultation, Normal air movement, No rhonchi, No wheeze Cardiovascular: Regular rate, Regular Rhythm, Normal S1, Normal S2 Abdomen: Bowel Sounds Present, Soft, Non Tender, Distended, Obese Extremities: Edema Psych/Mental Status: Normal Affect, Appropriate Laboratory Results 05/15/18 05:24: ELIER Screen Negative, FALLON-1 Antibody Not Reportable, SS-A/Ro IgG Antibody Not Reportable, SS-B/La IgG Antibody Not Reportable, Sm (Ty) Antibody Not Reportable, AUTOMOTIVE PARTS SPECIALIST Antibody Not Reportable, Scl-70 Scleroderma Ab Not Reportable, Double Strand DNA Ab Not Reportable, Centromere B Antibody Not Reportable 05/15/18 05:24: RBC Folate Hemolysate 498.2, RBC Folate 2147, Hematocrit 23.2 L 05/16/18 12:12: POC Glucose 165 H 05/16/18 16:41: POC Glucose 142 H 05/16/18 22:32: POC Glucose 139 H 05/17/18 06:31: POC Glucose 122 H 05/17/18 08:00: WBC 3.2 L, RBC 3.09 L, Hgb 8.5 L, Hct 28.5 L, MCV 92.2, MCH 27.5, MCHC 29.8 L, RDW 19.0 H, RDW Differential 62.7 H, Plt Count 75 L, MPV 9.4, Immature Gran % (Auto) 0.000, Neut % (Auto) 61.5, Lymph % (Auto) 26.9, [place] % (Auto) 8.8, Eos % (Auto) 2.2, Baso % (Auto) 0.6, Absolute Neuts (auto) 2.0, Absolute Lymphs (auto) 0.86, Total Counted Not Reportable 05/17/18 08:00: PT 18.2 H, INR 1.5, APTT 39.4 H 05/17/18 08:00: Sodium 130 L, Potassium 3.9, Chloride 94 L, Carbon Dioxide 28.0, Anion Gap 8, BUN 22 H, Creatinine 4.09 H, Estim Creat Clear Calc 10.69, Est GFR (MDRD) Af Amer 14 L, Est GFR (MDRD) Non-Af 11 L, BUN/Creatinine Ratio 5.4 L, Glucose 126 H, Calcium 8.9 05/17/18 09:40: Blood Type O NEGATIVE Current Medications Acetaminophen (Tylenol) 650 mg PO Q6H PRN PRN PRN Reason: Mild Pain (1-3)/Temp > 100.7 F Last Admin: 05/17/18 00:01 Dose: 650 mg Acetaminophen (Tylenol) 325 mg PO Q6H PRN PRN PRN Reason: PAIN Last Admin: 05/16/18 05:01 Dose: 325 mg Atorvastatin Calcium (Lipitor) 80 mg PO QHS [facility] Last Admin: 05/16/18 22:34 Dose: 80 mg Calcium Acetate (Phoslo Gel Cap) 2,001 mg PO TIDAC [facility] Last Admin: 05/17/18 06:33 Dose: 2,001 mg Carvedilol (Coreg) 12.5 mg PO BID [facility] Last Admin: 05/16/18 22:33 Dose: 12.5 mg Docusate Calcium (Surfak) 240 mg PO BID [facility] Last Admin: 05/16/18 22:36 Dose: 240 mg Doxazosin Mesylate (Cardura) 8 mg PO QHS [facility] Last Admin: 05/16/18 22:34 Dose: 8 mg Gabapentin (Neurontin) 100 mg PO TIDCM [facility] Last Admin: 05/17/18 08:27 Dose: Not Given Insulin Human Lispro (Humalog Kwikpen (Bkc)) 0 unit SC [facility]; Protocol Last Admin: 05/17/18 06:32 Dose: Not Given Isosorbide Mononitrate (Imdur) 30 mg PO BID [facility] Last Admin: 05/16/18 22:34 Dose: 30 mg Lactulose (Chronulac, Cephulac) 26.666 gm PO DAILY PRN PRN PRN Reason: Constipation Last Admin: 05/16/18 20:12 Dose: 26.666 gm Losartan Potassium (Cozaar) 50 mg PO BID [facility] Last Admin: 05/16/18 22:34 Dose: 50 mg Nystatin (Mycostatin Powder) 1 applic TOPICAL BID [facility]; Protocol Last Admin: 05/16/18 22:35 Dose: 1 applicatio Oxycodone HCl (Oxyir) 7.5 mg PO Q6H PRN PRN PRN Reason: SEVERE PAIN (6-10/10) Last Admin: 05/17/18 00:01 Dose: 7.5 mg Pantoprazole Sodium (Protonix) 40 mg PO BID [facility] Last Admin: 05/16/18 22:35 Dose: 40 mg Pramipexole Dihydrochloride (Mirapex) 0.25 mg PO QHS [facility] Last Admin: 05/16/18 22:35 Dose: 0.25 mg Sevelamer Carbonate (Renvela) 1,600 mg PO TIDCM [facility] Last Admin: 05/17/18 08:27 Dose: Not Given Sodium Chloride () 5 - 15 ml IV UD PRN PRN Reason: SALINE FLUSH Last Admin: 05/11/18 05:03 Dose: 10 ml Medical Necessity - Tobacco Use Smoking Status: Former smoker Tobacco Use: Non-smoker Assessment/Plan All Active Problems (Last Updated 05/11/18 @ 10:46 by Chaim Jauregui DO) GI bleed (Acute) Acute blood loss anemia (Acute) Abnormal laboratory test (Acute) 1. acute blood loss anemia * stable * Hg down to 6.6, baseline around 9.6 * improved after 3 units PRBCs--no need for additional units at this time. * EGD and colonoscopy showed no obvious source, but blood was noted in cecum (suspected source somewhere in small bowel) * Bleeding scan negative. 2. GI bleed * resolved * as above. * may require capsule endoscopy as outpt * AVM v other process complicated by ASA and Plavix. 3. Anasarca * no obvious cirrhosis on US/CTs * may be due to pulmonary HTN (per echo on 02/27, RVSP may have been underestimated), malnutrition * fluid restrict * HD per renal * advised pt no indication for paracentesis at this time (would want to be more distended before doing so, currently soft). Discussed risks and benefits of paracentesis with patient including infection and extraction of protein 4. ESRD * dialysis per nephrology. * last HD on 05.17 5. DVT proph: SCDs 6. Malnutrition * moderated * complicated overall care * consult dietary. 7. Ascites * unclear etiology. previous abdominal imaging did not show obvious cirrhosis * may be due to her ESRD v cirrhosis v malignancy * ovaries were removed during hysterectomy (did not have ovarian cancer) * does have h/o squamous cell skin cancer (no melanoma) * will perform paracentesis and check pathology (not done last time) to r/o malignant etiology * will order ascites albumin (send out test). * given her coagulopathy, pancytopenia, ascites; this seems more like cirrhotic * IR now requesting INR be less than 1.3. Vitamin K yesterday was ineffective. Will give FFP 8. Pancytopenia. * chronic (dating back to November) * follow up with hematology * Cirrhosis v. hematologic v other 9. CAD * last PCI in 2017. * resume ASA after paracentesis * hold Plavix for 2 weeks * follow up with cardiology * on HIS, but may not be of benefit in ESRD. Code Visit Inpatient E&M: 36707 Subs Hosp L2
[2018-05-17 12:51] LABS: Bedside Glucose 106 mg/dL (70-110)
[2018-05-17] MEDS: Carvedilol 12.5 MG Tablet PO ×2 (13:10→22:02)
--- NOTE | 2018-05-17 13:10 | DIALYSIS ---
Hemodialysis x 4 hours with 2k BATH; Tolerated well. Removed = -3200; 2 units FFP given at end of tx. [place] pulled, stasis complete after 45min pressure. DSD applied; +bruit +thrill. Report given.
[2018-05-17] MEDS: Isosorbide Mononitrate 30 MG Tablet PO ×2 (13:11→22:02)
[2018-05-17] MEDS: Pantoprazole Sodium 40 MG Tablet PO ×2 (13:11→22:02)
[2018-05-17] MEDS: Nystatin Powder 15gm Bottle 1 APPLIC TOPICAL ×2 (13:11→22:01)
[2018-05-17] MEDS: Gabapentin 100 MG Capsule PO ×2 (13:16→18:06)
[2018-05-17] MEDS: Losartan Potassium 50 MG Tablet PO ×2 (13:16→22:02)
[2018-05-17 14:52] LABS: Cytology, Body Fluid / CSF SEE PATHOLOGY REPORT
[2018-05-17 15:10] LABS: Body Fluid Mononuclear WBC # 0.153 10^3/uL; Body Fluid Mononuclear WBC % 96.2 %; Body Fluid Polynuclear WBC # 0.006 10^3/uL; Body Fluid Polynuclear WBC % 3.8 %; Body Fluid Total Cells Counted 0.213 10^3/ul (0.000-0.000); White Blood Count/Body Fluid 0.159 10^3/uL
--- NOTE | 2018-05-17 15:29 | CASEMGMT ---
Social Work Note Pt is not ready to discharge today. SW placed a call to Lynda at [facility] and updated her on this. Green sheet and transportation form on chart. Plan: [facility] once medically cleared Matilde Burton HOSE MAKER, HANG GLIDING INSTRUCTOR
[2018-05-17 16:47] LABS: Glucose, Body Fluid 116 mg/dL (40-70); Protein, Body Fluid 4.1 g/dL (Not Establ.)
[2018-05-17 17:26] LABS: Bedside Glucose 67 mg/dL (70-110)
[2018-05-17] MEDS: SEVELAMER CARBONATE 800 MG TABLET 1600 MG PO (18:06)
[2018-05-17 18:39] LABS: Appearance/Body Fluid CLOUDY; Auto B Fluid Analyzer BKGD Ct COUNTS W/IN LIMITS (W/IN LIMITS); Color/Body Fluid PINK; Source- Body Fluid THORACENTESIS
[2018-05-17 18:40] LABS: Body Fluid QC Type(s) BF1Q; Lymphocytes 38 %; Monocytes 2 %; Other Cell Type/BF 60 %
[2018-05-17] MEDS: Insulin Lispro 100 UNIT/ML INSULN.PEN SC (22:01)
[2018-05-17] MEDS: Atorvastatin Calcium 80 MG Tablet PO (22:02)
[2018-05-17] MEDS: Doxazosin 4 MG Tablet 8 MG PO (22:02)
[2018-05-17] MEDS: Pramipexole Di-HCl 0.25 MG Tablet PO (22:02)
[2018-05-17 22:10] LABS: Bedside Glucose 184 mg/dL (70-110)
[2018-05-18] MEDS: oxyCODONE 5 MG Tablet 7.5 MG PO ×2 (01:55→08:48)
[2018-05-18] MEDS: Acetaminophen 325 MG Tablet 650 MG PO (01:56)
[2018-05-18 02:31] VITALS: BP 114/47; PULSE 54; RESP 20; TEMP 36.3; O2SAT 100
--- NOTE | 2018-05-18 02:34 | NURSING ---
Pt was c/o some dizziness/wooziness when she went to get up to go into the bathroom a short while ago with the MANUFACTURING LABORER. Vital signs obtained: BP 114/47 and HR 53. See vital sign intervention. One touch was 126. Pt stated she felt a little warm earlier as well. At this time, the patient states I'm fine. Temperature turned down in room. Pt's speech is clear and pt is A&O x 3. Again she reiterated I'm fine. Will apprise Carli JESUS. Pt was instructed to call if she starts to feel bad. She acknowledged understanding.
[2018-05-18 02:41] LABS: Bedside Glucose 126 mg/dL (70-110)
[2018-05-18 06:23] VITALS: BP 108/38; PULSE 54; RESP 18; TEMP 36.6; O2SAT 97
[2018-05-18] MEDS: Calcium Acetate 667 MG Capsule 2001 MG PO (06:36)
[2018-05-18 06:40] LABS: Bedside Glucose 117 mg/dL (70-110)
--- NOTE | 2018-05-18 07:33 | PCM.PN.BLA ---
Progress Note ESRD next dialysis Sunday, holiday schedule. BP low. Stop doxazosin Phos low, stop binders.
[2018-05-18] MEDS: Losartan Potassium 50 MG Tablet PO (08:48)
[2018-05-18] MEDS: Gabapentin 100 MG Capsule PO ×2 (08:48→12:10)
[2018-05-18] MEDS: Isosorbide Mononitrate 30 MG Tablet PO (08:48)
[2018-05-18] MEDS: Pantoprazole Sodium 40 MG Tablet PO (08:48)
[2018-05-18] MEDS: Carvedilol 12.5 MG Tablet PO (08:48)
[2018-05-18] MEDS: Nystatin Powder 15gm Bottle 1 APPLIC TOPICAL (08:49)
[2018-05-18 08:51] VITALS: BP 131/54; PULSE 54; RESP 18; TEMP 36.7; O2SAT 98
[2018-05-18] MEDS: Insulin Lispro 100 UNIT/ML INSULN.PEN SC (12:08)
--- NOTE | 2018-05-18 12:12 | PCM.TXEXTCAR ---
- Diet 05/12/18 17:18 Diet: Cardiac/Low Cholesterol Food consistency:: Regular Liquid Consistency:: Regular/Thin Is pt able to select menu?: Yes Diet Comments: fluid restriction 1500ml total - Routine Orders/Code Status Enema Type: Fleetz Enema Frequency: Daily PRN Suppository Type: Dulcolax 10mg O2 Frequency: Continuous Routine Lab Work: CBC, BMP - Wound(s) SITE UNSEEN Wound Type: EGD, COLON right leg Wound Type: scattered abrasions rle Wound Type: Abrasion - Therapies Weight Bearing: Full weight bearing Physical Therapy: Eval and Treat Occupational Therapy: Eval and Treat - Allergies/Procedures Done in Hospital Allergies/Adverse Reactions: Allergies lisinopril Allergy (Verified 05/10/18 17:08) Swelling nebivolol HCl [From Bystolic] Adverse Reaction (Verified 05/10/18 17:08) bradycardia BRADYCARDIA Procedures: Colonoscopy, Dialysis, EGD, Paracentesis - Type of Care/Length of Stay Estimated LOS: Convalescent Care Less Than 30 days Type of Care Needed: Skilled Rehab Potential: Fair Prognosis: Fair - Additional Orders/Day of Discharge Additional Orders: Dialysis Every MWF, except to be performed on 05/19, due to Holiday (contact Dr. Anuradha Crawley) Day of Discharge: 05/18/18 - Dietary and Speech Recommendations Dietitian Recommendations/Changes: Suggest diet change to 2000 calorie; Renal with 80-90 gm Protein which includes 1500 ml FR. - Follow Up Care Primary Care Physician: Allie Lund DO [Primary Care Provider] - Within 2 Weeks Please Follow Up With: Diogo Tee MD When: 2 weeks
[2018-05-18 12:15] LABS: Bedside Glucose 178 mg/dL (70-110)
--- NOTE | 2018-05-18 12:17 | PCM.DC.SUM ---
Discharge Date and Diagnosis - Problem List Patient Problems: Active and Suspected Problems (Last Updated 05/11/18 @ 10:46 by Chaim Jauregui DO) GI bleed (Acute) Acute blood loss anemia (Acute) Date of Admission: 05/10/18 Date of Discharge: 05/18/18 - Secondary Discharge Diagnosis Chronic Problems (Last Updated 05/11/18 @ 10:46 by Chaim Jauregui DO) Ascites (Chronic) Hypervolemia (Chronic) Fracture of fifth metatarsal bone of right foot (Chronic) Other specified peripheral vascular diseases (Chronic) Afib (Chronic) Congenital coronary artery anomaly (Chronic) S/P PTCA (percutaneous transluminal coronary angioplasty) (Chronic) NSTEMI (non-ST elevated myocardial infarction) (Chronic) Bradycardia (Chronic) CAD (coronary artery disease) (Chronic) Diabetes mellitus, type II (Chronic) Hyperlipidemia (Chronic) Hypothyroidism (Chronic) Anemia in chronic kidney disease (Chronic) Hypertension (Chronic) End stage renal disease on dialysis (Chronic) Hospital Course and Treatment Imaging Results: Clinical Impression(s) from Imaging Studies GI Bleed Scan Nuclear Medicine 05/12/18 10:25 IMPRESSION: 1. NEGATIVE 99m Tc ULTRATAG LABELED BLOOD POOL GASTROINTESTINAL BLEEDING EXAMINATION. 2. There is no definitive typical scintigraphic evidence of acute gastrointestinal hemorrhage on the current examination. Electronically Signed: Diogo Sellers DO at 12:19 EST Tel , Service support , Paracentesis Ultrasound 05/17/18 09:42 IMPRESSION: Uneventful paracentesis. Electronically Signed: Adams Nicole, at 15:37 EST Tel , Service support , Operations: None, - Procedures: Colonoscopy, Dialysis, EGD Summary of Care Provided: The patient is a 73 year old F presests with hematochezia. Likely source is small bowel. EGD and colonoscopy were negative. [] 1. acute blood loss anemia stable Hg down to 6.6, baseline around 9.6 improved after 3 units PRBCs--no need for additional units at this time. EGD and colonoscopy showed no obvious source, but blood was noted in cecum (suspected source somewhere in small bowel) Bleeding scan negative. 2. GI bleed resolved as above. may require capsule endoscopy as outpt AVM v other process complicated by ASA and Plavix. 3. Anasarca no obvious cirrhosis on US/CTs may be due to pulmonary HTN (per echo on 02/27, RVSP may have been underestimated), malnutrition fluid restrict HD per renal advised pt no indication for paracentesis at this time (would want to be more distended before doing so, currently soft). Discussed risks and benefits of paracentesis with patient including infection and extraction of protein 4. ESRD dialysis per nephrology. last HD on 05.17, next due 05/19 5. DVT proph: SCDs 6. Malnutrition moderated complicated overall care consult dietary. 7. Ascites unclear etiology. previous abdominal imaging did not show obvious cirrhosis may be due to her ESRD v cirrhosis v malignancy ovaries were removed during hysterectomy (did not have ovarian cancer) does have h/o squamous cell skin cancer (no melanoma) will perform paracentesis and check pathology (not done last time) to r/o malignant etiology will order ascites albumin (send out test). removed 2.8 liters on 05/17--no need for albumin 8. Pancytopenia. chronic (dating back to November) follow up with hematology Cirrhosis v. hematologic v other 9. CAD last PCI in 2017. resume ASA after paracentesis hold Plavix for 2 weeks follow up with cardiology on HIS, but may not be of benefit in ESRD. Patient Problems: Active and Suspected Problems (Last Updated 05/11/18 @ 10:46 by Chaim Jauregui DO) GI bleed (Acute) Acute blood loss anemia (Acute) - Physical Exam General: Alert, No apparent distress HEENT: Atraumatic, Normocephalic Oral: Moist Mucosa, No Gingival or Mucosal Lesions/ Ulcerations Neck: No Nodes, Thyroid Normal Size and Texture Lungs: Clear to auscultation, Normal air movement, No rhonchi, No wheeze Cardiovascular: Regular rate, Regular Rhythm, Normal S1, Normal S2, No murmurs Abdomen: Bowel Sounds Present, Soft, Non Tender, Non-Distended Extremities: No edema, No Calf Tenderness Vital Signs Temp Pulse Resp BP Pulse Ox 36.7 C 54 L 18 131/54 H 98 05/18/18 08:51 05/18/18 08:51 05/18/18 08:51 05/18/18 08:51 05/18/18 08:51 Oxygen Flow Rate (L/min) 1.5 Oxygen Delivery Method [3] Room Air Oxygen Delivery Method [2] Room Air Oxygen Delivery Method [1 ( Room Air Initial Baseline)] Oxygen Delivery Method Room Air Weight: 85.3 kg Body Mass Index (BMI) 31.6 Finger Stick Blood Glucose 99 Intake and Output for Last 24 Hours 05/16/18 05/17/18 05/18/18 23:59 23:59 23:59 Intake Total 700 / 700 790 / 790 320 / 320 Output Total 100 / 100 9220 / 9220 Balance 600 / 600 -8430 / -8430 320 / 320 Microbiology Past 72 Hours 05/17/18 Unknown Gram Stain - Final Fluid - Ascites Body Fluid Culture - Preliminary No growth-Final to follow Laboratory Tests Past 24 Hrs 05/15/18 05/15/18 05/17/18 14:29 14:29 Unknown Fluid Source THORACENTESIS Fluid Color PINK Fluid Appearance CLOUDY Fluid WBC 0.159 Fluid RBC 0.22894 Fluid Tot Cell Count 0.213 H Fld Polynuclear WBCs # 0.006 Fld Polynuclear WBCs % 3.8 Fluid Mononuclear WBCs 0.153 Fld Mononuclear WBCs % 96.2 Fluid Lymphocytes 38 Fluid Monocytes 2 Fluid Other Cells 60 Fl Pathologist Comment May follow Fluid Glucose 116 H Fluid Total Protein 4.1 Fluid Comment 2 SEE COMMENT Miscellaneous Cytology Miscellaneous Test Pending 05/17/18 Unknown Fluid Source Fluid Color Fluid Appearance Fluid WBC Fluid RBC Fluid Tot Cell Count Fld Polynuclear WBCs # Fld Polynuclear WBCs % Fluid Mononuclear WBCs Fld Mononuclear WBCs % Fluid Lymphocytes Fluid Monocytes Fluid Other Cells Fl Pathologist Comment Fluid Glucose Fluid Total Protein Fluid Comment 2 Miscellaneous Cytology Pending Miscellaneous Test POC Glucose 05/18/18 05/18/18 05/18/18 12:06 06:29 02:33 POC Glucose 178 H 117 H 126 H 05/17/18 05/17/18 05/17/18 22:00 16:42 12:43 POC Glucose 184 H 67 L 106 Discharge Diet: Low fat/ Low Cholesterol, Renal Diet Discharge Activity: Return to Normal Activity Call your doctor if you observe: Fever of 101 or Higher, Shortness of breath, - - increased abdominal girth. rectal bleeding. Home Medications: Medications to take at Discharge Cholecalciferol (Vitamin D3) [Vitamin D3] 5,000 unit PO MOWEFR 07/27/17 Gabapentin [Neurontin] 100 mg PO TID 07/27/17 pantoprazole 40 mg tablet,delayed release 40 mg PO DAILY 08/21/17 promethazine 12.5 mg tablet 12.5 mg PO Q6H PRN 08/21/17 vitamin B complex and vitamin C no.20-folic acid 1 mg capsule 1 cap PO QDAY 08/21/17 Atorvastatin Calcium [Lipitor] 80 mg PO QHS 12/26/17 Docusate Calcium [Stool Softener] 240 mg PO BID 12/26/17 Doxazosin Mesylate 4 mg PO DAILY 12/26/17 Lactulose [Chronulac] 40 ml PO DAILY PRN 12/26/17 Losartan Potassium [Cozaar] 50 mg PO DAILY 12/26/17 Sevelamer Carbonate [Renvela] 3,200 mg PO TIDCM 12/26/17 Aspirin E.C. [Ecotrin] 81 mg PO DAILY@0800 #1 02/14/18 Isosorbide Mononitrate [Isosorbide Mononitrate ER] 30 mg PO BID 04/12/18 Ropinirole HCl [Requip] 0.5 mg PO QHS 04/12/18 Acetaminophen [Tylenol Extra Strength] 500 mg PO Q6H PRN 05/10/18 Bisacodyl [Dulcolax] 10 mg RECTAL DAILY PRN PRN 05/10/18 Carvedilol 12.5 mg PO BID 05/10/18 Insulin Lispro [Humalog] See Protocol SC TIDCM 05/10/18 Magnesium Hydroxide [Milk Of Magnesia] 30 ml PO DAILY PRN PRN 05/10/18 Mineral Oil 133 ml RC DAILY PRN PRN 05/10/18 Oxycodone HCl/Acetaminophen [Oxycodon-Acetaminophen 7.5-325] 1 tab PO Q6H PRN PRN 3 Days #12 tab 05/18/18 Following Prescrptions Were Given to Patient: Oxycodone HCl/Acetaminophen [Oxycodon-Acetaminophen 7.5-325] 1 tab PO Q6H PRN PRN 3 Days #12 tab PRN Reason: pain Primary Care Physician: Allie Lund DO [Primary Care Provider] - Within 2 Weeks Please Follow Up With: Diogo Tee MD When: 2 weeks Disposition: [facility] facility Minutes spent on discharge:: 32 Patient Condition:: Fair Medical Necessity - Tobacco Use Smoking Status: Former smoker Tobacco Use: Non-smoker Meaningful Use Info Meaningful Use Diagnoses (Choose all that apply): None applicable Code Visit Inpatient E&M: 50432 Subs Hosp L2
--- NOTE | 2018-05-18 12:21 | DS.PCM_ITS ---
Discharge Date and Diagnosis - Problem List Patient Problems: Active and Suspected Problems (Last Updated 05/11/18 @ 10:46 by Chaim Jauregui DO) GI bleed (Acute) Acute blood loss anemia (Acute) Date of Admission: 05/10/18 Date of Discharge: 05/18/18 - Secondary Discharge Diagnosis Chronic Problems (Last Updated 05/11/18 @ 10:46 by Chaim Jauregui DO) Ascites (Chronic) Hypervolemia (Chronic) Fracture of fifth metatarsal bone of right foot (Chronic) Other specified peripheral vascular diseases (Chronic) Afib (Chronic) Congenital coronary artery anomaly (Chronic) S/P PTCA (percutaneous transluminal coronary angioplasty) (Chronic) NSTEMI (non-ST elevated myocardial infarction) (Chronic) Bradycardia (Chronic) CAD (coronary artery disease) (Chronic) Diabetes mellitus, type II (Chronic) Hyperlipidemia (Chronic) Hypothyroidism (Chronic) Anemia in chronic kidney disease (Chronic) Hypertension (Chronic) End stage renal disease on dialysis (Chronic) Hospital Course and Treatment Imaging Results: Clinical Impression(s) from Imaging Studies GI Bleed Scan Nuclear Medicine 05/12/18 10:25 IMPRESSION: 1. NEGATIVE 99m Tc ULTRATAG LABELED BLOOD POOL GASTROINTESTINAL BLEEDING EXAMINATION. 2. There is no definitive typical scintigraphic evidence of acute gastrointestinal hemorrhage on the current examination. Electronically Signed: Diogo Sellers DO at 12:19 EST Tel , Service support , Paracentesis Ultrasound 05/17/18 09:42 IMPRESSION: Uneventful paracentesis. Electronically Signed: Adams Nicole, at 15:37 EST Tel , Service support , Operations: None, - Procedures: Colonoscopy, Dialysis, EGD Summary of Care Provided: The patient is a 73 year old F presests with hematochezia. Likely source is small bowel. EGD and colonoscopy were negative. [] 1. acute blood loss anemia * stable * Hg down to 6.6, baseline around 9.6 * improved after 3 units PRBCs--no need for additional units at this time. * EGD and colonoscopy showed no obvious source, but blood was noted in cecum (suspected source somewhere in small bowel) * Bleeding scan negative. 2. GI bleed * resolved * as above. * may require capsule endoscopy as outpt * AVM v other process complicated by ASA and Plavix. 3. Anasarca * no obvious cirrhosis on US/CTs * may be due to pulmonary HTN (per echo on 02/27, RVSP may have been underestimated), malnutrition * fluid restrict * HD per renal * advised pt no indication for paracentesis at this time (would want to be more distended before doing so, currently soft). Discussed risks and benefits of paracentesis with patient including infection and extraction of protein 4. ESRD * dialysis per nephrology. * last HD on 05.17, next due 05/19 5. DVT proph: SCDs 6. Malnutrition * moderated * complicated overall care * consult dietary. 7. Ascites * unclear etiology. previous abdominal imaging did not show obvious cirrhosis * may be due to her ESRD v cirrhosis v malignancy * ovaries were removed during hysterectomy (did not have ovarian cancer) * does have h/o squamous cell skin cancer (no melanoma) * will perform paracentesis and check pathology (not done last time) to r/o malignant etiology * will order ascites albumin (send out test). * removed 2.8 liters on 05/17--no need for albumin 8. Pancytopenia. * chronic (dating back to November) * follow up with hematology * Cirrhosis v. hematologic v other 9. CAD * last PCI in 2017. * resume ASA after paracentesis * hold Plavix for 2 weeks * follow up with cardiology * on HIS, but may not be of benefit in ESRD. Patient Problems: Active and Suspected Problems (Last Updated 05/11/18 @ 10:46 by Chaim Jauregui DO) GI bleed (Acute) Acute blood loss anemia (Acute) - Physical Exam General: Alert, No apparent distress HEENT: Atraumatic, Normocephalic Oral: Moist Mucosa, No Gingival or Mucosal Lesions/ Ulcerations Neck: No Nodes, Thyroid Normal Size and Texture Lungs: Clear to auscultation, Normal air movement, No rhonchi, No wheeze Cardiovascular: Regular rate, Regular Rhythm, Normal S1, Normal S2, No murmurs Abdomen: Bowel Sounds Present, Soft, Non Tender, Non-Distended Extremities: No edema, No Calf Tenderness Vital Signs Temp Pulse Resp BP Pulse Ox 36.7 C 54 L 18 131/54 H 98 05/18/18 08:51 05/18/18 08:51 05/18/18 08:51 05/18/18 08:51 05/18/18 08:51 Oxygen Flow Rate (L/min) 1.5 Oxygen Delivery Method [3] Room Air Oxygen Delivery Method [2] Room Air Oxygen Delivery Method [1 ( Room Air Initial Baseline)] Oxygen Delivery Method Room Air Weight: 85.3 kg Body Mass Index (BMI) 31.6 Finger Stick Blood Glucose 99 Intake and Output for Last 24 Hours 05/16/18 05/17/18 05/18/18 23:59 23:59 23:59 Intake Total 700 / 700 790 / 790 320 / 320 Output Total 100 / 100 9220 / 9220 Balance 600 / 600 -8430 / -8430 320 / 320 Microbiology Past 72 Hours 05/17/18 Unknown Gram Stain - Final Fluid - Ascites Body Fluid Culture - Preliminary No growth-Final to follow Laboratory Tests Past 24 Hrs 05/15/18 05/15/18 05/17/18 14:29 14:29 Unknown Fluid Source THORACENTESIS Fluid Color PINK Fluid Appearance CLOUDY Fluid WBC 0.159 Fluid RBC 0.16233 Fluid Tot Cell Count 0.213 H Fld Polynuclear WBCs # 0.006 Fld Polynuclear WBCs % 3.8 Fluid Mononuclear WBCs 0.153 Fld Mononuclear WBCs % 96.2 Fluid Lymphocytes 38 Fluid Monocytes 2 Fluid Other Cells 60 Fl Pathologist Comment May follow Fluid Glucose 116 H Fluid Total Protein 4.1 Fluid Comment 2 SEE COMMENT Miscellaneous Cytology Miscellaneous Test Pending 05/17/18 Unknown Fluid Source Fluid Color Fluid Appearance Fluid WBC Fluid RBC Fluid Tot Cell Count Fld Polynuclear WBCs # Fld Polynuclear WBCs % Fluid Mononuclear WBCs Fld Mononuclear WBCs % Fluid Lymphocytes Fluid Monocytes Fluid Other Cells Fl Pathologist Comment Fluid Glucose Fluid Total Protein Fluid Comment 2 Miscellaneous Cytology Pending Miscellaneous Test POC Glucose 05/18/18 05/18/18 05/18/18 12:06 06:29 02:33 POC Glucose 178 H 117 H 126 H 05/17/18 05/17/18 05/17/18 22:00 16:42 12:43 POC Glucose 184 H 67 L 106 Discharge Diet: Low fat/ Low Cholesterol, Renal Diet Discharge Activity: Return to Normal Activity Call your doctor if you observe: Fever of 101 or Higher, Shortness of breath, - - increased abdominal girth. rectal bleeding. Home Medications: Medications to take at Discharge Cholecalciferol (Vitamin D3) [Vitamin D3] 5,000 unit PO MOWEFR 07/27/17 Gabapentin [Neurontin] 100 mg PO TID 07/27/17 pantoprazole 40 mg tablet,delayed release 40 mg PO DAILY 08/21/17 promethazine 12.5 mg tablet 12.5 mg PO Q6H PRN 08/21/17 vitamin B complex and vitamin C no.20-folic acid 1 mg capsule 1 cap PO QDAY 08/21/17 Atorvastatin Calcium [Lipitor] 80 mg PO QHS 12/26/17 Docusate Calcium [Stool Softener] 240 mg PO BID 12/26/17 Doxazosin Mesylate 4 mg PO DAILY 12/26/17 Lactulose [Chronulac] 40 ml PO DAILY PRN 12/26/17 Losartan Potassium [Cozaar] 50 mg PO DAILY 12/26/17 Sevelamer Carbonate [Renvela] 3,200 mg PO TIDCM 12/26/17 Aspirin E.C. [Ecotrin] 81 mg PO DAILY@0800 #1 02/14/18 Isosorbide Mononitrate [Isosorbide Mononitrate ER] 30 mg PO BID 04/12/18 Ropinirole HCl [Requip] 0.5 mg PO QHS 04/12/18 Acetaminophen [Tylenol Extra Strength] 500 mg PO Q6H PRN 05/10/18 Bisacodyl [Dulcolax] 10 mg RECTAL DAILY PRN PRN 05/10/18 Carvedilol 12.5 mg PO BID 05/10/18 Insulin Lispro [Humalog] See Protocol SC TIDCM 05/10/18 Magnesium Hydroxide [Milk Of Magnesia] 30 ml PO DAILY PRN PRN 05/10/18 Mineral Oil 133 ml RC DAILY PRN PRN 05/10/18 Oxycodone HCl/Acetaminophen [Oxycodon-Acetaminophen 7.5-325] 1 tab PO Q6H PRN PRN 3 Days #12 tab 05/18/18 Following Prescrptions Were Given to Patient: Oxycodone HCl/Acetaminophen [Oxycodon-Acetaminophen 7.5-325] 1 tab PO Q6H PRN PRN 3 Days #12 tab PRN Reason: pain Primary Care Physician: Allie Lund DO [Primary Care Provider] - Within 2 Weeks Please Follow Up With: Diogo Tee MD When: 2 weeks Disposition: [facility] facility Minutes spent on discharge:: 32 Patient Condition:: Fair Medical Necessity - Tobacco Use Smoking Status: Former smoker Tobacco Use: Non-smoker Meaningful Use Info Meaningful Use Diagnoses (Choose all that apply): None applicable Code Visit Inpatient E&M: 36045 Subs Hosp L2
--- NOTE | 2018-05-18 12:54 | PCA ---
Faxed signed med list, Rx and transfer to extended care to the [facility] at [phone]
[2018-05-20 10:51] LABS: Pathologist Comment/Body Fluid Reviewed
== END 2018-05-18 13:21 | disposition skilled nursing facility (03) | DRG 377 ==
LOC: ED 17:53 → MS3 18:57
PROVIDERS: Internal Medicine; Surgery; Admitting Provider Internal Medicine; Emergency Provider Emergency Medicine; Family Provider Internal Medicine; PCP Internal Medicine
PROC: 0DJD8ZZ Inspection of Lower Intestinal Tract, Via Natural or Artificial Opening Endoscopic (ICD-10-PCS; CPT 45378; principal; 2018-05-12 07:55)
DX: K92.2 Gastrointestinal hemorrhage, unspecified (principal); N18.6 End stage renal disease; D62 Acute posthemorrhagic anemia; I50.32 Chronic diastolic (congestive) heart failure; I13.2 Hypertensive heart and chronic kidney disease with heart failure and with stage 5 chronic kidney disease, or end stage renal disease; R18.8 Other ascites; D61.818 Other pancytopenia; E44.0 Moderate protein-calorie malnutrition; K57.30 Diverticulosis of large intestine without perforation or abscess without bleeding; E78.5 Hyperlipidemia, unspecified; I25.10 Atherosclerotic heart disease of native coronary artery without angina pectoris; E11.22 Type 2 diabetes mellitus with diabetic chronic kidney disease; R53.81 Other malaise; I27.20 Pulmonary hypertension, unspecified; K29.70 Gastritis, unspecified, without bleeding; E03.9 Hypothyroidism, unspecified; I48.91 Unspecified atrial fibrillation; D63.1 Anemia in chronic kidney disease; Z90.710 Acquired absence of both cervix and uterus; Z99.2 Dependence on renal dialysis; Z98.61 Coronary angioplasty status; Z79.899 Other long term (current) drug therapy; Z87.891 Personal history of nicotine dependence; Z68.31 Body mass index [BMI] 31.0-31.9, adult; Z79.02 Long term (current) use of antithrombotics/antiplatelets; Z79.4 Long term (current) use of insulin
CPT/HCPCS: 36415; 49083; 78278; 80048; 80069; 80076; 82040; 82607; 82728; 82747; 82945; 82962; 83036; 83540; 83550; 84157; 85014; 85018; 85025; 85027; 85610; 85730; 86038; 86225; 86235; 86431; 86850; 86900; 86920; 86922; 87070; 87075; 87205; 88108; 88305; 88313; 88342; 89050; 90937; 93005; 97161; 97802; 99284; A9560; J7030; J7040; J7050; P9016; P9017; P9040; A4216; G0257

== ENCOUNTER 2018-06-01 09:00 | Outpatient (CLI) | payer MEDICARE, OTHER, SELFPAY ==
[2017-11-22 13:23] VITALS: BMI 27.1
[2018-05-10 20:24] VITALS: BMI 31.6
[2018-06-01] VITALS (10 sets, daily range): BP systolic 116–141; BP diastolic 46–71; PULSE 56–64; RESP 16–20; TEMP 36.5–37.1; O2SAT 94
[2018-06-01] MEDS: 0.9% NaCl Peripheral Flush Adult/Peds IV ×2 (09:47→14:50)
--- NOTE | 2018-06-01 10:34 | NURSING ---
HR reg at 60, LCTA/P. +thrill and brutie to Left upper arm. Pt states she voids very little. Assisted to bed.
[2018-06-01] MEDS: Furosemide 20 MG/2 ML VIAL IV (14:50)
== END 2018-06-01 18:36 | disposition home or self-care (01) ==
LOC: MEDOUTP 09:01 → MS3 09:02
PROVIDERS: Family Provider Internal Medicine; PCP Internal Medicine; Referring Provider Internal Medicine; Visit Provider Internal Medicine
DX: D64.9 Anemia, unspecified (principal)
CPT/HCPCS: 36415; 36430; 86850; 86900; 86920; 86922; J7040; P9016; A4216; J1940

== ENCOUNTER → 2018-07-02 11:20 | Outpatient (CLI) | payer MEDICARE, OTHER, MEDICAID, SELFPAY ==
[2017-11-22 13:23] VITALS: BMI 27.1
[2018-05-10 20:24] VITALS: BMI 31.6
[2018-06-11 10:16] VITALS: BMI 33.3
[2018-06-11 11:00] VITALS: BMI 27.1
--- NOTE | 2018-07-02 | FLU_PTH ---
PATIENT: ULISES CAR LOC: U#:[id number] AGE/SX: 80/F ROOM: RE07/02/[address]: AYDIN Meyers : 1945 BED: DIS: SPEC #: [id number] RECD: 07/02/18 13:24 STATUS: QUINTON EVANS #: [id number] RODERICK: 07/02/18 00:[address]: Jez Vargas NP DEPT: CYTOLOGY RECD BY: Morgan Badillo ENTERED: 07/02/18 13:46 SP TYPE: Fluid OTHR DR: Dr. Walter Chao MD Tissues: PARACENTESIS FLUID Procedures: Special Stain Group II Surgery Specimen Level IV Cytospin Fluid HEADER OPERATION: Ultrasound-guided right paracentesis PRE-OP DIAGNOSIS: Ascites TISSUE SUBMITTED: Paracentesis fluid for cytology DIAGNOSIS CYTOLOGY Paracentesis fluid for cytology (cytospin and cell block): Negative for malignant cells. AM:christina 07/03/18 CYTOLOGY STUDY Slides are reviewed. CYTOLOGY GROSS Received is 110 ml of cloudy ron fluid labeled with the patient's name and and designated per the requisition as paracentesis. Submitted for cytology preparation including cell block. / 07/02/18 TC:5 CPT: 68463, 99480
--- NOTE | 2018-07-02 11:38 | US_ITS ---
PROCEDURE: Ultrasound guided paracentesis. DATE OF EXAMINATION: July 02, 2018. INDICATION: Female, 73 years old. Ascites. PHYSICIAN: Eric Mckay M.D. TECHNIQUE: The risks, benefits, and alternatives to the procedure were explained to the patient. The specific risks of bleeding, infection, and damage to bowel were detailed and accepted. Witnessed informed consent was obtained. The abdomen was ultrasonographically surveyed. An appropriate pocket of fluid was identified at the right lower quadrant. The skin were cleaned and prepped in the usual sterile fashion. Using ultrasound guidance, the peritoneal cavity was accessed with a 5-[place]i paracentesis needle/catheter system. The trocar was removed. A total of 4010 ml of ron color fluid were removed from the peritoneal cavity. The catheter was removed and a sterile dressing was applied. A 110 mL sample was sent to the laboratory. The procedure was well tolerated. US/Paracentesis with US IMPRESSION: Ultrasound guided paracentesis. Electronically Signed: Eric Mckay MD at 13:51 EST , Service support ,
[2018-07-02 11:52] LABS: Basophil% 1.4 % (0-1); Eosinophils% 2.5 % (0-5); Hematocrit 34.9 % (37-47); Hemoglobin 10.2 g/dl (12.0-15.0); Lymphocyte % 31.1 % (19-41); Mean Corp Hgb Conc 29.2 g/gl (32-36); Mean Corpuscular Hgb 28.1 pg (27.0-32.0); Mean Corpuscular Volume 96.1 fL (81-99); Monocyte% 7.1 % (0-10); Neutrophil # 1.62 X10^3/uL (2.7-7.7); Neutrophil % 57.9 % (47-70); Platelet Count 63 K/mm3 (150-450); RBC Distribution Width CV 19.2 % (11.6-14.6); RBC Distribution Width SD 67.3 fl (35.1-43.9); Red Blood Count 3.63 M/mm3 (4.2-5.4); White Blood Count 2.8 K/mm3 (4.4-11.0)
[2018-07-02 11:53] LABS: Absolute Lymphocyte Count 0.87 X10^3/ul (0.83-4.51); Absolute Neutrophil Count 1.6 X10^3/uL (2.0-7.7); Basophil# 0.04 X10^3/uL; Differential Indicated SCAN CRITERIA MET; Eosinophil# 0.07 X10^3/uL; Lymphocyte # 0.87 X10^3/ul (4.0); POSITIVE COUNT NO; POSITIVE DIFFERENTIAL NO; POSITIVE MORPHOLOGY YES
[2018-07-02 12:01] LABS: International Normalized Ratio 1.4; Prothrombin Time (Protime)PT. 17.2 SECONDS (11.7-14.9)
[2018-07-02 12:02] LABS: Partial Thromboplast Time 41.5 Seconds (24.1-36.2)
[2018-07-02 12:14] LABS: Anisocytosis 1+; Differential Comment SCANNED
[2018-07-02 13:25] LABS: Cytology, Body Fluid / CSF SEE PATHOLOGY REPORT
[2018-07-02 13:26] VITALS: BP 146/56; BP 147/56; BP 147/60; PULSE 62; PULSE 63; PULSE 64; RESP 16; O2SAT 94; O2SAT 95
[2018-07-03 16:07] LABS: Free Kappa Light Chains 415.9 mg/L (3.3-19.4); Free Lambda Light Chains 284.1 mg/L (5.7-26.3)
[2018-07-03 16:07] LABS: Albumin 3.6 g/dL (2.9-4.4); Alpha-1-Globulins 0.3 g/dL (0.0-0.4); Alpha-2-Globulins 0.6 g/dL (0.4-1.0); Gamma Globulin 1.8 g/dL (0.4-1.8); Immunoglobulin A 261 mg/dL (64-422); Immunoglobulin G 1695 mg/dL (700-1600); Immunoglobulin M 108 mg/dL (26-217); PROEL- TOTAL PROTEIN 7.2 g/dL (6.0-8.5)
[2018-07-05 22:40] LABS: IMMUNOFIXATION RESULT,S Comment: (.)
== END ==
PROVIDERS: Internal Medicine Hematology & Oncology; Family Provider Family Medicine; PCP Family Medicine; Referring Provider Nurse Practitioner Family; Visit Provider Nurse Practitioner Family
DX: Z01.812 Encounter for preprocedural laboratory examination (principal); N04.9 Nephrotic syndrome with unspecified morphologic changes; R18.8 Other ascites; D61.818 Other pancytopenia; N18.9 Chronic kidney disease, unspecified; D63.1 Anemia in chronic kidney disease
CPT/HCPCS: 36415; 49083; 82784; 83883; 84165; 85025; 85610; 85730; 86334; 88108; 88305; 88313

== ENCOUNTER → 2018-09-03 11:59 | Outpatient (CLI) | payer MEDICARE, SELFPAY ==
[2018-06-11 11:00] VITALS: BMI 27.1
[2018-07-09 13:19] VITALS: BMI 31.4
[2018-08-29 12:27] LABS: Hematocrit 33.6 % (37-47); Hemoglobin 9.8 g/dl (12.0-15.0); Mean Corp Hgb Conc 29.2 g/gl (32-36); Mean Corpuscular Hgb 27.7 pg (27.0-32.0); Mean Corpuscular Volume 94.9 fL (81-99); Mean Platelet Vol. 10.9 fl (6.2-12.0); Platelet Count 81 K/mm3 (150-450); RBC Distribution Width CV 18.7 % (11.6-14.6); Red Blood Count 3.54 M/mm3 (4.2-5.4); White Blood Count 2.4 K/mm3 (4.4-11.0)
[2018-08-29 12:30] LABS: Scan Indicated on CBC? Y/N NO
[2018-08-29 12:35] LABS: Anion Gap 9 (5-15); BUN 16 mg/dL (7-18); BUN/Creat Ratio 4.6 RATIO (10-20); Calcium,Total 8.4 mg/dL (8.5-10.1); Chloride 95 mmol/L (98-107); Creatinine, Serum 3.48 mg/dL (0.55-1.02); EST Glomerular Filtration Rate 14 mL/min (>60); Est Glom Filt Rate - Afr Amer 17 mL/min (>60); Glucose 195 mg/dL (74-106); Potassium 4.3 mmol/L (3.5-5.1); Sodium Level 134 mmol/L (136-145)
[2018-08-29 13:11] LABS: Prothrombin Time Fingerstick 18.1 SEC (11.9-14.4)
--- NOTE | 2018-09-03 12:01 | US_ITS ---
PROCEDURE: Ultrasound guided paracentesis. DATE OF EXAMINATION: September 03, 2018. INDICATION: Female, 73 years old. Ascites. PHYSICIAN: Eric Mckay M.D. TECHNIQUE: The risks, benefits, and alternatives to the procedure were explained to the patient. The specific risks of bleeding, infection, and damage to bowel were detailed and accepted. Witnessed informed consent was obtained. The abdomen was ultrasonographically surveyed. An appropriate pocket of fluid was identified at the right lower quadrant. The skin were cleaned and prepped in the usual sterile fashion. Using ultrasound guidance, the peritoneal cavity was accessed with a 5-[place]banian paracentesis needle/catheter system. The trocar was removed. A total of 1500 ml of ron-colored fluid were removed from the peritoneal cavity. The catheter was removed and a sterile dressing was applied. The procedure was well tolerated. US/Paracentesis with US IMPRESSION: Ultrasound guided paracentesis. Electronically Signed: Eric Mckay, at 13:33 EDT , Service support ,
[2018-09-03 13:18] VITALS: BP 149/59; BP 151/63; PULSE 68; PULSE 70; RESP 14; O2SAT 97; O2SAT 98
== END ==
PROVIDERS: Family Provider Internal Medicine; PCP Internal Medicine; Referring Provider Family Medicine; Visit Provider Family Medicine
DX: I12.0 Hypertensive chronic kidney disease with stage 5 chronic kidney disease or end stage renal disease (principal); E11.22 Type 2 diabetes mellitus with diabetic chronic kidney disease; N18.6 End stage renal disease; E50.9 Vitamin A deficiency, unspecified; R18.8 Other ascites
CPT/HCPCS: 36415; 36416; 49083; 80048; 85027; 85610

== ENCOUNTER 2018-09-20 11:46 | Observation (INO) | payer MEDICARE, SELFPAY ==
[2018-06-11 11:00] VITALS: BMI 27.1
[2018-07-09 13:19] VITALS: BMI 31.4
[2018-09-20] VITALS (14 sets, daily range): BP systolic 88–195; BP diastolic 9–60; PULSE 38–66; RESP 12–20; TEMP 36.4–37; O2SAT 92–99; BMI 30.9; BMI 32.4
--- NOTE | 2018-09-20 12:08 | EKG12_ITS ---
Test Reason : CP Blood Pressure : / mmHG Vent. Rate : 060 BPM Atrial Rate : 060 BPM P-R Int : 000 ms QRS Dur : 088 ms QT Int : 444 ms P-R-T Axes : 000 019 072 degrees QTc Int : 444 ms Junctional rhythm Nonspecific T wave abnormality Abnormal ECG Confirmed by QUIRINO NEWMAN, NANCIE ([id number]), deputy editor in chief FINESSE ZAVALETA ([id number]) on 09/24/2018 1:38:02 PM Referred By: STACI/TERESA Confirmed By:NANCIE WIN MD
--- NOTE | 2018-09-20 12:08 | CT_ITS ---
STUDY: CT ABDOMEN AND PELVIS WITH CONTRAST REASON FOR EXAM: Female, 73 years old. Abdominal pain with distention RADIATION DOSAGE (If Supplied By Facility): CTDIvol = ( 20.66 ) mGy, DLP = ( 1120.45 ) mGycm TECHNIQUE: Transaxial images were obtained from the dome of the diaphragm to the symphysis pubis without oral contrast. 75CC IV Isovue 300 was administered. Sagittal and coronal images were reconstructed. Individualized dose optimization techniques were used for this CT. COMPARISON: 04/14/2018 FINDINGS: Small amount of scarring in the right lung base, stable. Otherwise lung bases are clear. Stable cardiomegaly Enlarged liver with heterogeneous enhancement and multiple calcifications. Stable hypodensity within the right lobe of the liver. There is non-visualization of the gallbladder, which may be secondary to either contraction or a prior cholecystectomy. There are multiple benign calcified granulomata of the spleen. There is diffuse atrophy of the pancreas. Moderate amount of ascites fluid throughout the abdomen and pelvis Normal bilateral adrenal glands. There is severe cortical atrophy of the right kidney, consistent with chronic medical renal disease. There is severe cortical atrophy of the left kidney, consistent with chronic medical renal disease. Normal visualized stomach. Normal small intestine. There are multiple colonic diverticula consistent with diverticulosis. The appendix is visualized and appears normal. There is diffuse atherosclerotic calcification of the abdominal aorta, without a demonstrated aneurysm. Normal inferior vena cava. Normal retroperitoneum. Great vessels of the abdomen are severely calcified. Urinary bladder is not clearly visualized. Status post hysterectomy. Extensive anasarca. There are diffuse degenerative changes of the visualized lumbar spine. CT/Abdomen/Pelvis W IV Cont ONLY IMPRESSION: 1. Moderate ascites fluid throughout the abdomen and pelvis. Extensive anasarca. 2. Old granulomatous disease 3. Severe atrophy of the kidneys 4. Extensive atherosclerotic disease of the abdominal aorta and great vessels of the abdomen 5. Heterogeneous enhancement of the liver Electronically Signed: Jason Danielle DO at 13:04 EDT Tel , Service support ,
[2018-09-20] MEDS: Morphine 4 MG/ML Syringe IV ×2 (12:19→14:56)
[2018-09-20] MEDS: Ondansetron 4 MG/2 ML Vial IV (12:19)
[2018-09-20 12:23] LABS: Absolute Neutrophil Count 1.3 X10^3/uL (2.0-7.7); Basophil# 0.03 X10^3/uL; Basophil% 1.2 % (0-1); Eosinophil# 0.11 X10^3/uL; Eosinophils% 4.3 % (0-5); Hemoglobin 10.2 g/dl (12.0-15.0); Lymphocyte % 35.3 % (19-41); Mean Corpuscular Hgb 28.3 pg (27.0-32.0); Mean Corpuscular Volume 94.4 fL (81-99); Mean Platelet Vol. 10.8 fl (6.2-12.0); Monocyte# 0.24 X10^3/uL; Monocyte% 9.4 % (0-10); Neutrophil # 1.27 X10^3/uL (2.7-7.7); Neutrophil % 49.8 % (47-70); Platelet Count 84 K/mm3 (150-450); RBC Distribution Width CV 17.5 % (11.6-14.6); RBC Distribution Width SD 58.6 fl (35.1-43.9); White Blood Count 2.6 K/mm3 (4.4-11.0)
[2018-09-20 12:25] LABS: POSITIVE COUNT NO; POSITIVE DIFFERENTIAL NO; POSITIVE MORPHOLOGY NO
[2018-09-20 12:44] LABS: ALB/GLOB Ratio 0.7 RATIO (0.9-2.4); AST(SGOT) 21 U/L (15-37); Alanine Aminotransfer ALT/SGPT 11 U/L (13-56); Albumin, Serum 3.1 g/dL (3.2-5.0); Alkaline Phosphatase 174 U/L (45-117); Anion Gap 6 (5-15); BUN 18 mg/dL (7-18); BUN/Creat Ratio 4.2 RATIO (10-20); Calcium,Total 8.8 mg/dL (8.5-10.1); Chloride 92 mmol/L (98-107); Creatinine, Serum 4.33 mg/dL (0.55-1.02); EST Glomerular Filtration Rate 11 mL/min (>60); Est Glom Filt Rate - Afr Amer 13 mL/min (>60); Estimated Creatinine Clearance 9.69 ml/min; Globulin 4.4 g/dL (2.2-4.2); Glucose 162 mg/dL (74-106); Lipase 53 U/L (73-393); Potassium 5.4 mmol/L (3.5-5.1); Protein, Total 7.5 g/dL (6.4-8.2); Sodium Level 131 mmol/L (136-145)
[2018-09-20 12:48] LABS: Lactic Acid 1.1 mmol/L (0.4-2.0)
--- NOTE | 2018-09-20 13:14 | CT_ITS ---
STUDY: CTA CHEST REASON FOR EXAM: Female, 73 years old. Right-sided chest pain RADIATION DOSAGE (If Supplied By Facility): CTDIvol = ( 12.25 ) mGy, DLP = ( 302.00 ) mGycm TECHNIQUE: The examination was performed with the intravenous administration of 75CC IV Isovue 370. Post-processing of the angiographic images was performed, with multiplanar reformation and 3D reconstruction. Individualized dose optimization techniques were used for this CT. COMPARISON: November 17, 2017 FINDINGS: There is a calcified thyroid nodules. Normal enhancement of the main pulmonary artery and right and left pulmonary arteries. Normal enhancement of the bilateral peripheral pulmonary arteries. There is no demonstrated pulmonary embolism. There is atherosclerotic calcification of the aortic arch with tortuosity. There is no demonstrated aortic dissection. There are calcifications of the coronary arteries. There is cardiac enlargement. There are mitral annular calcifications. Normal mediastinum. There are calcified bilateral hilar lymph nodes. Normal visualized trachea and bronchi. The lungs are well expanded. There are left lower lung granulomas. There is lower lung atelectasis. There is right lower lung airspace consolidation. There is small right pleural effusion. Normal pleura. Normal chest wall structures. There are degenerative changes of thoracic spine. There is hepatomegaly. Granulomatous calcifications in the liver and spleen. There is moderate ascites in the abdomen. CT/CTA Chest W/WO Contrast IMPRESSION: CTA chest examination, without a demonstrated pulmonary embolism or arterial dissection. Right lower lung infiltrate or edema. Small pleural effusion. Electronically Signed: Wojciech Hoffmann MD at 14:28 EDT , Service support ,
--- NOTE | 2018-09-20 14:26 | ED.DCSUM_ITS ---
- ER Visit Summary Date of Service: 09/20/18 Chief Complaint: [Pain in right chest and abdomen] History of Present Illness: The patient is a 73 F [presents to the emergency department with discomfort for the last 2 days in her right upper abdomen and chest. Patient rates her pain as a 10 out of 10. Patient states pain is worse with breathing. She feels mildly short of breath. She denies nausea or vomiting. She denies any fever. She is had no cough. Patient states she was at dialysis and was referred to the emergency department but did not get dialyzed today. Patient has a history of coronary artery disease as well as hypertension and high cholesterol. She is had history of A. fib and hypoth yroidism. Patient with history of end-stage renal disease and pancytopenia. Patient has had prior cholecystectomy. No recent travel or surgery.] Physical Examination: [HEENT-PERRLA, EOMI. Cranial nerves II through XII grossly intact. TMs clear. Mucous membranes moist. No adenopathy. Cardiovascular-regular rate and rhythm without murmur or ectopy Lungs-clear to auscultation, chest wall stable without crepitus or subcu emphysema Abdomen-normoactive bowel sounds, soft. Patient has tenderness to palpation over the right upper quadrant and epigastric region. There is some guarding. There is no rebound, rigidity, or perineal signs. Extremities-intact ?4, normal range of motion, normal pulses, atraumatic] Test Results: [EKG obtained showed a sinus rhythm with a ventricular rate of 60 bpm with a first-degree AV block. CBC with differential, 2.6, hemoglobin 10, hematocrit 34, platelets 84. Chemistry showed a sodium 131, potassium 5.4, chloride 92, CO2 33, BUN 18, creatinine 4.33, glucose 162. Lactate was 1.1. LFTs were unremarkable. Lipase was 53. Troponin was less than 0.05. CT scan of the abdomen pelvis showed ascites otherwise nothing significant. Patient also had a CTA of the chest which was negative for PE or dissection. Patient was noted to have a small right pleural effusion and this small consolidation of the right lower lobe.] Emergency Department Course and Treatment: [Patient was medicated with morphine 4 mill grams IV and had minimal relief with that she was given a second dose of morphine 4 mill grams IV. At this point patient has no other clinical signs of pneumonia and no fever therefore held off on any antibiotic treatment. Patient will require dialysis.] Treatment Plan: [Admit for pain control and dialysis.] Disposition: [Admit] Impression: [Chest and abdomen pain-etiology uncertain End-stage renal disease with need for dialysis] This note was generated with [employer] dictation software. It may contain incorrect words, spelling, and punctuation that were not noted in review of the chart prior to signing ED Disposition - Plan for ED Patient: Referrals: Davy Coleman MD [Primary Care Provider] -
--- NOTE | 2018-09-20 14:36 | NURSING ---
DR PUENTE FOR DR SMALL
--- NOTE | 2018-09-20 14:42 | NURSING ---
PCU OBS ASHELFAH CP, ABD PAIN
--- NOTE | 2018-09-20 15:08 | HP.PCM_ITS ---
Problem List (1) History of abdominal paracentesis Status: Chronic (2) Stented coronary artery Status: Chronic Comment: Cutting Balloon and TAMI (3.0X18 mm Xience) Proximal LAD 04/18/2012; Rotational atherectomy to proximal, id and distal RCA with two overlapping 4.0 X 38 Synergy TAMI ([facility] main) (3) Ascites Status: Chronic Qualifiers: (4) Pancytopenia Status: Chronic (5) Bradycardia Status: Chronic (6) CAD (coronary artery disease) Status: Chronic Qualifiers: (7) Diabetes mellitus, type II Status: Chronic Qualifiers: (8) Hyperlipidemia Status: Chronic Qualifiers: (9) Hypothyroidism Status: Chronic Qualifiers: (10) Anemia in chronic kidney disease Status: Chronic Qualifiers: (11) Hypertension Status: Chronic Qualifiers: (12) End stage renal disease on dialysis Status: Chronic History of Present Illness Date of Admission: 09/20/18 Chief Complaint: Right chest/abdominal pain. The patient is a 73 year old F with past medical history as mentioned above presented to the emergency room because of right lateral chest and right upper quadrant abdominal pain. Today, patient went to the dialysis center for hemodialysis and before they started hemodialysis, she started having increasing right lateral/right upper abdominal pain, started around 4 days ago, has been progressive, sharp pain, it was 10 out of 10 in severity this morning, radiates to her back on the right side, aggravated by taking a deep breath or movement, associated with minimal shortness of breath and without relieving factors. She denied mechanical fall or trauma to her chest. She denied abdominal pain, nausea or vomiting. She denied anterior chest pain, palpitation, dizziness or lightheadedness. She denies cough or sputum production. She denies fever or chills. She denied constipation or diarrhea. In the emergency department, she was afebrile, bradycardia which is chronic, blood pressure stable, pulse ox was 99% on room air. Routine blood work was remarkable for chronic pancytopenia, sodium of 131, potassium 5.4, BUN of 18 and creatinine of 4.33. Lactic acid was 1.1. LFT and lipase were unremarkable. EKG revealed junctional rhythm, no acute ischemic changes or cardiac arrhythmias. Troponin is negative. CT scan abdomen and pelvis with IV contrast revealed moderate ascites, no acute findings, other chronic findings reviewed. CTA chest showed no PE or dissection, revealed questionable right lower lobe infiltrate or edema, small right pleural effusion. She is being admitted for abdominal pain of unclear etiology, worsening ascites and patient received IV contrast and she will need hemodialysis today. Past Medical History Past Medical History (Chronic Problems): Chronic Problems (Last Updated 09/20/18 @ 15:06 by Haleigh Palma MD) History of abdominal paracentesis (Chronic 09/06/18) History of GI bleed (Chronic) History of non-ST elevation myocardial infarction (NSTEMI) (Chronic 07/05/16) Atherosclerotic heart disease of [place] coronary artery without angina pectoris (Chronic) Stented coronary artery (Chronic) Cutting Balloon and TAMI (3.0X18 mm Xience) Proximal LAD 04/18/2012; Rotational atherectomy to proximal, id and distal RCA with two overlapping 4.0 X 38 Synergy TAMI ([facility] main) Hypervolemia (Chronic) Ascites (Chronic) Pancytopenia (Chronic) Other specified peripheral vascular diseases (Chronic) Afib (Chronic) Congenital coronary artery anomaly (Chronic) Bradycardia (Chronic) CAD (coronary artery disease) (Chronic) Diabetes mellitus, type II (Chronic) Hyperlipidemia (Chronic) Hypothyroidism (Chronic) Anemia in chronic kidney disease (Chronic) Hypertension (Chronic) End stage renal disease on dialysis (Chronic) Medical History: Medical History (Last Updated 09/20/18 @ 15:06 by Haleigh Palma MD) History of GI bleed (Chronic) Z87.19 History of non-ST elevation myocardial infarction (NSTEMI) (Chronic) Onset Date: 07/05/16 I25.2 Atherosclerotic heart disease of [place] coronary artery without angina pectoris (Chronic) I25.10 Ascites (Chronic) R18.8 Pancytopenia (Chronic) D61.818 Other specified peripheral vascular diseases (Chronic) I73.89 Afib (Chronic) I48.91 Congenital coronary artery anomaly (Chronic) Q24.5 Bradycardia (Chronic) R00.1 CAD (coronary artery disease) (Chronic) I25.10 Diabetes mellitus, type II (Chronic) E11.9 Hyperlipidemia (Chronic) E78.5 Hypothyroidism (Chronic) E03.9 Anemia in chronic kidney disease (Chronic) N18.9, D63.1 Hypertension (Chronic) I10 End stage renal disease on dialysis (Chronic) N18.6, 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 7-11-18 History of hysterectomy Z90.710 Skin cancer C44.90 mouth/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, 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 Allergies lisinopril Allergy (Severe, Verified 09/18/18 11:09) Angioedema nebivolol HCl [From Bystolic] Adverse Reaction (Severe, Verified 07/09/18 13:16) bradycardia BRADYCARDIA Home Medications: Ambulatory Orders Medication Instructions Recorded Cholecalciferol (Vitamin D3) 5,000 unit PO MOWEFR 07/27/17 [Vitamin D3] Gabapentin [Neurontin] 100 mg PO TID 07/27/17 pantoprazole 40 mg tablet,delayed 40 mg PO DAILY 08/21/17 release Atorvastatin Calcium [Lipitor] 80 mg PO QHS 12/26/17 Docusate Calcium [Stool Softener] 240 mg PO BID 12/26/17 Lactulose [Chronulac] 40 ml PO DAILY PRN 12/26/17 Losartan Potassium [Cozaar] 50 mg PO BID 12/26/17 Aspirin E.C. [Ecotrin] 81 mg PO DAILY@0800 #1 02/14/18 Acetaminophen [Tylenol Extra 1,000 mg PO Q6H PRN 05/10/18 Strength] Carvedilol 12.5 mg PO BID 05/10/18 Insulin Lispro [Humalog] See Protocol SC TIDCM 05/10/18 Clopidogrel Bisulfate [Plavix] 75 mg PO DAILY 05/31/18 Insulin Glargine [Lantus (BKC)] 22 units SC QHS 05/31/18 Oxycodone HCl/Acetaminophen 1 tablet PO Q6H PRN PRN 05/31/18 [Percocet 7.5-325 mg Tablet] Cyclobenzaprine HCl 5 mg PO BID 06/11/18 B Complex W-C No.20/Folic Acid 1 mg PO UD 09/20/18 [Virt-Caps Softgel] Isosorbide Mononitrate 20 mg PO TID 09/20/18 proMETHazine tablet [Phenergan 12.5 mg PO DAILY PRN PRN 09/20/18 tablet] Surgical History: Surgical History (Last Updated 09/18/18 @ 11:13 by Sarah Mason) History of abdominal paracentesis (Chronic) Onset Date: 04/19/19 Z98.890 Stented coronary artery (Chronic) Z95.5 Cutting Balloon and TAMI (3.0X18 mm Xience) Proximal LAD 04/18/2012; Rotational atherectomy to proximal, id and distal RCA with two overlapping 4.0 X 38 Synergy TAMI ([facility] main) History of back surgery Z98.890 LATE 70'S History of colectomy Z90.49 History of laparoscopic cholecystectomy Z90.49 History of total right knee replacement Z96.651 Hx of foot surgery Z98.890 S/P left rotator cuff repair Z98.890 history left A-V fistula Surgical History: cholecystectomy, total knee arthroplasty, - - Left upper extremity fistula, cholecystectomy, back surgery, colon resection with history of diverticulitis, hysterectomy, appendectomy, right knee surgery, right total knee replacement, right foot surgery, left knee surgery, left foot surgery, PCI. 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 Lives: With Family Smoking Status: Never smoker Alcohol: None Drugs: None - *Family History Maternal Family History: Family History (Last Reviewed 09/18/18 @ 11:03 by Sarah Mason) Sister Diabetes Heart disease Hypertension Anemia History Items: Cancer - uterine Paternal Family History: Family History (Last Reviewed 09/18/18 @ 11:03 by Sarah Mason) Sister Diabetes Heart disease Hypertension Anemia History Items: Cancer Sibling Family History: Family History (Last Reviewed 09/18/18 @ 11:03 by Sarah Mason) Sister Diabetes Heart disease Hypertension Anemia History Items: Diabetes Review of Systems Constitutional: Denies: Anorexia, Chills, Fever, Weakness Eyes: Denies: Blurred vision, Double vision, Drainage, Redness HEENT: Denies: Difficulty Hearing, Dysphasia, Ear Pain, Eye Pain, Nasal Congestion, Sore Throat Cardiovascular: Denies: Chest Pain, Claudication, Chest Tightness, Heaviness, Palpitations, Syncope Respiratory: Denies: Cough, Pleuritic Pain, Shortness of Breath, Sputum production, Wheezing Gastrointestinal: Reports: Abdominal Pain. Denies: Constipation, Diarrhea, Nausea, Vomiting Genitourinary: Denies: Dysuria, Frequency, Hematuria Musculoskeletal: Denies: Arm Pain, Back Pain, Foot Pain Skin: Denies: Dryness, Rash Neurological: Denies: Balance problems, Change in Speech, Slurred speech, Confusion, Headaches, Incoordination, Numbness Psychiatric: Denies: Anxiety, Depression Endocrine: Denies: Change in Body Habitus, Polydipsia VTE Information - Inpt Only VTE Present on Admission: No VTE Mechan Device Prophylaxis: SCD's VTE Pharm Prophylaxis ordered?: No - Physical Exam General: Alert, Oriented x3, Cooperative, No apparent distress HEENT: Atraumatic, PERRLA, EOMI, Normocephalic Oral: Moist Mucosa, No Gingival or Mucosal Lesions/ Ulcerations Neck: Supple, No JVD, Negative Carotid Bruits, Trachea Midline, Thyroid Normal Size and Texture Lungs: Clear to auscultation, No rhonchi, No wheeze, No rales, Diminished Cardiovascular: Regular rate, Regular Rhythm, Normal S1, Normal S2, PMI Normal Abdomen: Bowel Sounds Present, Soft, No Hepato-splenomegaly, Distended, Tender - Minimal right upper quadrant tenderness, no guarding or rigidity. Ascites. Extremities: No clubbing, No cyanosis, Edema - Trace edema. Skin: No rashes, No breakdown Lymphatic: No Cervical, Supraclavicular, or Inguinal Adenopathy Neurological: Cranial nerves II-XII grossly intact, Motor Exam 5/5 strength throughout Psych/Mental Status: Normal Affect, Appropriate, Alert and oriented to time, place, person, mood and affect Vital Signs Temp Pulse Resp BP Pulse Ox 97.5 F L 41 L 12 105/56 L 98 09/20/18 14:59 09/20/18 14:59 09/20/18 14:59 09/20/18 14:59 09/20/18 14:59 Oxygen Delivery Method Room Air Weight: 180 lb Body Mass Index (BMI) 30.9 Finger Stick Blood Glucose 99 Laboratory Tests Past 24 Hrs 09/20/18 09/20/18 09/20/18 11:55 11:55 12:13 WBC 2.6 L RBC 3.60 L Hgb 10.2 L Hct 34.0 L MCV 94.4 MCH 28.3 MCHC 30.0 L RDW 17.5 H RDW Differential 58.6 H Plt Count 84 L MPV 10.8 Immature Gran % (Auto) 0.000 Neut % (Auto) 49.8 Lymph % (Auto) 35.3 Hickman % (Auto) 9.4 Eos % (Auto) 4.3 Baso % (Auto) 1.2 H Absolute Neuts (auto) 1.3 L Absolute Lymphs (auto) 0.90 Total Counted Not Reportable Sodium 131 L Potassium 5.4 H Chloride 92 L Carbon Dioxide 33.0 H Anion Gap 6 BUN 18 Creatinine 4.33 H Estim Creat Clear Calc 9.69 Est GFR (MDRD) Af Amer 13 L Est GFR (MDRD) Non-Af 11 L BUN/Creatinine Ratio 4.2 L Glucose 162 H Lactic Acid 1.1 Calcium 8.8 Total Bilirubin 0.50 AST 21 ALT 11 L Alkaline Phosphatase 174 H Troponin I < 0.015 Total Protein 7.5 Albumin 3.1 L Globulin 4.4 H Albumin/Globulin Ratio 0.7 L Lipase 53 L Clinical Impression(s) from Imaging Studies Abdomen/Pelvis CT 09/20/18 12:08 IMPRESSION: 1. Moderate ascites fluid throughout the abdomen and pelvis. Extensive anasarca. 2. Old granulomatous disease 3. Severe atrophy of the kidneys 4. Extensive atherosclerotic disease of the abdominal aorta and great vessels of the abdomen 5. Heterogeneous enhancement of the liver Electronically Signed: Jason Danielle DO at 13:04 EDT Tel , Service support , Chest CTA 09/20/18 13:14 IMPRESSION: CTA chest examination, without a demonstrated pulmonary embolism or arterial dissection. Right lower lung infiltrate or edema. Small pleural effusion. Electronically Signed: Wojciech Hoffmann MD at 14:28 EDT , Service support , Assessment/Plan This is a 73 years old female patient presented to the medicine because of right lateral chest/right upper abdomen pain, no etiology identified and she is being admitted for evaluation as well as admitted for increasing ascites and she will need hemodialysis because she received IV contrast. #1 right lateral chest/right upper abdomen pain: Unclear etiology. CT scan abdomen and pelvis with IV contrast showed ascites, no other acute findings. Patient has cholecystectomy. LFT and lipase was unremarkable. CTA chest revealed questionable right lower lobe consolidation versus edema and small effusion. No PE or dissection. Patient denied any symptoms such as cough or sputum production, no fever, no leukocytosis. Lactic acid was normal. At this time, I doubt pneumonia. Plan: Admit to PCU, cardiac monitoring, gentle IV fluids for hydration, IV morphine PRN for pain, IV antiemetics, repeat CBC and CMP tomorrow morning, abdominal paracentesis today, repeat chest x-ray tomorrow morning, PT OT evaluation and treatment. #2 worsening ascites: With past history of chronic ascites with multiple paracentesis. Ascitic fluid analysis on June, was negative for malignant cells. Plan for paracentesis today and will repeat ascitic fluid analysis, ascitic fluid for cell count with differential, Gram stain, culture, cytology, protein, LDH and glucose. #3 ESRD on hemodialysis: Patient did not get her yesterday, she received IV contrast. Her potassium is 5.4. EKG reviewed as above. Plan: Nephrology consult, hemodialysis today. #4 CAD status post CABG: EKG without acute ischemic changes, troponin is negative. Continue aspirin, statins, Plavix, Coreg, nitrates and losartan. #5 type 2 diabetes mellitus: ADA diet, Accu-Cheks, sliding scale, continue home doses of Lantus. #6 hypertension: Blood pressure stable, continue Coreg, nitrate and losartan. #7 hyperlipidemia: Continue statins. #8 chronic pancytopenia: She does have leukopenia, anemia and thrombocytopenia as well as neutropenia. her counts are at her baseline, she is afebrile. No evidence of active bleeding or infection. She has been seen by hematology as outpatient. At this time, no indication for blood transfusion. Plan to repeat CBC tomorrow morning. #9 DVT prophylaxis: SCDs, no chemical prophylaxis because of thrombocytopenia. This note was generated with [employer] dictation software. It may contain incorrect words, spelling, and punctuation that were not noted in checking the note before signing. Code Visit Inpatient E&M: 84731 Init Hosp L3
--- NOTE | 2018-09-20 15:15 | CASEMGMT ---
RN CM Assessment Introduced role of RN CM to patient.? Patient is alert, oriented and able?to participate in RN CM Assessment. ?Care providers, pharmacy, and demographics verified. Presentation: Discomfort x2 days for Right chest/abd Admit Dx: Abd Pain, Needs Dialysis Re-Admit: No Barriers/Issues: Patient did not receive Dialysis today d/t complaint and referred to ER. To receive HD tonight. HD Center: [facility], M/W/F, 11:40am shift. 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 PCP: Davy Coleman Specialists: Nephro- Dr Crawley Preferred Pharmacy: [facility] [place] [facility] [place] [facility] Rx Benefit:?Yes LNOK: Landen Moreira LW/HPOA: No, States has Information at home. Living Arrangements:?Lives with in a Duplex,lives on 1st floor, 5 steps to enter but has Ramp. ADL?s: Ambulates with walker, Independent with ADL's Transportation: , Dtr's, or Aide drive, will drive on [place] DME: Walker, WC, CPAP-Doesn't use, Home O2 for Night [facility]L-[facility], Shower Chair, Commode, Glucometer, Grab Bars, Nebulizer HHC: Past and Current with [facility], [facility] Aide Clara comes once/week to assist with house work. SN[facility] Goal: Home, does not anticipate will need anything. DC PLAN: Home with no anticipated needs identified at this time. JULIANA Rasmussen
[2018-09-20 15:18] LABS: International Normalized Ratio 1.5; Prothrombin Time (Protime)PT. 17.6 SECONDS (11.7-14.9)
--- NOTE | 2018-09-20 15:21 | ED.RN ---
thoracentesis ordered. dr requested prior to transfer to pcu. imaging verifying timimg d/t pt plavix.
[2018-09-20] MEDS: 0.9% Normal Saline 1,000 ML 100 ML IV (16:19)
[2018-09-20 16:45] LABS: Bedside Glucose 135 mg/dL (70-110)
[2018-09-20 16:47] LABS: Bacteria 0 SEEN /hpf (None Seen); Mucous, Urine 0 SEEN /hpf (<or=2+); Red Blood Cells-Urine 0 SEEN /hpf (0-5); Squamous Epithelial Cells - UA 0 SEEN /hpf (5-10)
[2018-09-20 17:12] LABS: Color, Urine Yellow (Yellow); Glucose, Dipstick Normal (Normal); Ketone-Dipstick 5 mg/dl (Negative); Leukocyte Esterase-Dipstick 500 /ul (Negative); Nitrite-Dipstick Negative (Negative); Occult Blood-Urine 250 /ul (Negative); Protein-Dipstick 500 mg/dl (Negative); Urine Bilirubin Dipstick Negative (Negative); Urine Clarity Turbid (Clear); Urine Urobilinogen Normal (Normal); Urine pH 6.5 (5.0 - 8.0)
[2018-09-20] MEDS: Nepro with Carbsteady 237 ML Liquid 120 ML PO (17:22)
[2018-09-20 17:31] LABS: White Blood Cells >100 SEEN /hpf (0-5)
[2018-09-20 23:06] LABS: Bedside Glucose 107 mg/dL (70-110)
[2018-09-21] VITALS (8 sets, daily range): BP systolic 128–143; BP diastolic 54–59; PULSE 60–65; RESP 15–18; TEMP 36.8–36.9; O2SAT 90–94
[2018-09-21] MEDS: 0.9% NaCl Peripheral Flush Adult/Peds IV ×4 (00:01→13:37)
[2018-09-21] MEDS: CYCLOBENZAPRINE HCL 5 MG TABLET PO ×2 (00:13→10:48)
[2018-09-21] MEDS: Carvedilol 12.5 MG Tablet PO ×2 (00:13→10:47)
[2018-09-21] MEDS: Losartan Potassium 50 MG Tablet PO ×2 (00:13→10:48)
--- NOTE | 2018-09-21 00:13 | SUR.HOLD ---
Hemodialysis x 3 hours with 2K bath; Tolerated well. Removed = -1500; LUAVF needles pulled , arterial bled x 35 min. stasis achieved. dsd with gelfoam applied. +bruit +thrill. Report given to EDIN Bradley
[2018-09-21] MEDS: Atorvastatin Calcium 80 MG Tablet PO (00:14)
[2018-09-21] MEDS: Isosorbide Mononitrate 20 MG Tablet PO ×3 (00:14→13:36)
[2018-09-21] MEDS: Gabapentin 100 MG Capsule PO ×3 (00:14→13:36)
--- NOTE | 2018-09-21 00:18 | NURSING ---
PM meds given late due to dialysis
--- NOTE | 2018-09-21 05:55 | RAD_ITS ---
STUDY: X-RAY CHEST REASON FOR EXAM: Female, 73 years old. Abdominal pain TECHNIQUE: Single AP portable view of the chest. COMPARISON: 04/12/2018 FINDINGS: Lungs are mildly hypoinflated. Mildly elevated left hemidiaphragm. There is possibility of mild left lower lobe atelectasis. Otherwise, the lungs appear clear. There is no demonstrated pleural abnormality. There is mild cardiac enlargement. Normal mediastinum and roxy. Normal visualized pulmonary arteries. There is atherosclerotic tortuosity of the aortic arch and descending thoracic aorta. Normal visualized thoracic spine. Normal visualized ribs, clavicles, and shoulders. There is no demonstrated abnormality of the visualized soft tissue structures of the upper abdomen. RAD/Chest PA and Lateral IMPRESSION: Hypoinflated lungs. Elevated left hemidiaphragm with possible atelectasis Electronically Signed: Jason Danielle DO at 9:29 EDT Tel , Service support ,
[2018-09-21] MEDS: Morphine 2 MG/ML Syringe IV ×3 (06:22→13:37)
[2018-09-21 07:13] LABS: Absolute Lymphocyte Count 0.77 X10^3/ul (0.83-4.51); Absolute Neutrophil Count 0.7 X10^3/uL (2.0-7.7); Basophil# 0.03 X10^3/uL; Basophil% 1.7 % (0-1); Eosinophil# 0.09 X10^3/uL; Eosinophils% 5.2 % (0-5); Hematocrit 31.2 % (37-47); Hemoglobin 9.4 g/dl (12.0-15.0); International Normalized Ratio 1.6; Lymphocyte # 0.77 X10^3/ul (4.0); Lymphocyte % 44.8 % (19-41); Mean Corp Hgb Conc 30.1 g/gl (32-36); Mean Corpuscular Hgb 28.7 pg (27.0-32.0); Mean Corpuscular Volume 95.1 fL (81-99); Mean Platelet Vol. 9.6 fl (6.2-12.0); Monocyte# 0.14 X10^3/uL; Monocyte% 8.1 % (0-10); Neutrophil # 0.69 X10^3/uL (2.7-7.7); Neutrophil % 40.2 % (47-70); Platelet Count 64 K/mm3 (150-450); Prothrombin Time (Protime)PT. 19.1 SECONDS (11.7-14.9); RBC Distribution Width CV 17.4 % (11.6-14.6); RBC Distribution Width SD 61.5 fl (35.1-43.9); Red Blood Count 3.28 M/mm3 (4.2-5.4); White Blood Count 1.7 K/mm3 (4.4-11.0)
[2018-09-21 07:24] LABS: Differential Indicated SCAN CRITERIA MET; POSITIVE COUNT NO; POSITIVE DIFFERENTIAL YES; POSITIVE MORPHOLOGY NO
[2018-09-21 07:30] LABS: ALB/GLOB Ratio 0.7 RATIO (0.9-2.4); AST(SGOT) 15 U/L (15-37); Alanine Aminotransfer ALT/SGPT 7 U/L (13-56); Albumin, Serum 2.7 g/dL (3.2-5.0); Alkaline Phosphatase 159 U/L (45-117); Anion Gap 6 (5-15); BUN 14 mg/dL (7-18); BUN/Creat Ratio 3.8 RATIO (10-20); Calcium,Total 8.3 mg/dL (8.5-10.1); Chloride 97 mmol/L (98-107); Creatinine, Serum 3.64 mg/dL (0.55-1.02); EST Glomerular Filtration Rate 13 mL/min (>60); Est Glom Filt Rate - Afr Amer 16 mL/min (>60); Estimated Creatinine Clearance 11.53 ml/min; Globulin 3.8 g/dL (2.2-4.2); Glucose 110 mg/dL (74-106); Potassium 4.6 mmol/L (3.5-5.1); Protein, Total 6.5 g/dL (6.4-8.2); Sodium Level 134 mmol/L (136-145)
[2018-09-21 07:46] LABS: Hypochromasia 1+; Platelet Estimate MKD DEC (ADEQ)
[2018-09-21 09:41] LABS: Bedside Glucose 112 mg/dL (70-110)
--- NOTE | 2018-09-21 10:22 | RAD_ITS ---
STUDY: X-RAY - UNILATERAL RIBS ( RIGHT ) REASON FOR EXAM: Female, 73 years old. Right-sided pain TECHNIQUE: 2 view(s) of the ribs. COMPARISON: None. FINDINGS: There are no displaced rib fractures identified. The visualized lungs are clear. There is no pneumothorax. RAD/Ribs Unil 2V No CXR IMPRESSION: No displaced rib fracture identified. Electronically Signed: Ryne Guerrero, at 12:01 EDT Tel , Service support ,
[2018-09-21] MEDS: Aspirin E.C. 81 MG Tablet PO (10:47)
[2018-09-21] MEDS: Pantoprazole Sodium 40 MG Tablet PO (10:48)
[2018-09-21] MEDS: Nepro Liquid 120 ML LIQUID PO ×2 (10:48→13:36)
--- NOTE | 2018-09-21 14:42 | DCINST_ITS ---
You will use the following diet at home:: No restrictions Your food should be the consistency of: Regular Your liquids should be the consistency of: Regular/Thin Discharge Activity: Return to Normal Activity Weight Bearing Status: Full weight bearing Allergies/Adverse Reactions: Allergies lisinopril Allergy (Severe, Verified 09/18/18 11:09) Angioedema nebivolol HCl [From Bystolic] Adverse Reaction (Severe, Verified 07/09/18 13:16) bradycardia BRADYCARDIA Medications to take at Discharge Cholecalciferol (Vitamin D3) [Vitamin D3] 5,000 unit PO MOWEFR 07/27/17 Gabapentin [Neurontin] 100 mg PO TID 07/27/17 pantoprazole 40 mg tablet,delayed release 40 mg PO DAILY 08/21/17 Atorvastatin Calcium [Lipitor] 80 mg PO QHS 12/26/17 Docusate Calcium [Stool Softener] 240 mg PO BID 12/26/17 Lactulose [Chronulac] 40 ml PO DAILY PRN 12/26/17 Losartan Potassium [Cozaar] 50 mg PO BID 12/26/17 Aspirin E.C. [Ecotrin] 81 mg PO DAILY@0800 #1 02/14/18 Carvedilol 12.5 mg PO BID 05/10/18 Insulin Lispro [Humalog] See Protocol SC TIDCM 05/10/18 Clopidogrel Bisulfate [Plavix] 75 mg PO DAILY 05/31/18 Insulin Glargine [Lantus SoloStar Pen] 22 units SC QHS 05/31/18 Oxycodone HCl/Acetaminophen [Percocet 7.5-325 mg Tablet] 1 tablet PO Q6H PRN PRN 05/31/18 Cyclobenzaprine HCl 5 mg PO BID 06/11/18 B Complex W-C No.20/Folic Acid [Virt-Caps Softgel] 1 mg PO UD 09/20/18 Isosorbide Mononitrate 20 mg PO TID 09/20/18 proMETHazine tablet [Phenergan tablet] 12.5 mg PO DAILY PRN PRN 09/20/18 Oxycodone [Oxyir] 5 - 10 mg PO Q6H PRN PRN 7 Days #20 tab 09/21/18 The following prescriptions were given: Oxycodone [Oxyir] 5 - 10 mg PO Q6H PRN PRN 7 Days #20 tab PRN Reason: Pain Primary Care Physician: Davy Coleman MD [Primary Care Provider] - Please follow up with your Primary Care Physician in: next week Test Results: Test results from this visit will be discussed in further detail at your follow- up appointment, if applicable.
[2018-09-21 17:25] LABS: Bedside Glucose 120 mg/dL (70-110)
--- NOTE | 2018-09-22 19:20 | PCM.DC.SUM ---
Discharge Date and Diagnosis Date of Admission: 09/20/18 Date of Discharge: 09/21/18 - Primary Discharge Diagnosis #1 right upper quadrant abdominal pain-etiology unclear #2 right lower rib pain-etiology unclear #3 chronic ascites-etiology unclear #4 end-stage renal disease #5 type 2 diabetes #6 coronary artery disease #7 chronic leukopenia-probably secondary to chronic liver disease #8 anemia of chronic renal disease #9 thrombocytopenia-secondary to chronic liver disease - Secondary Discharge Diagnosis Chronic Problems (Last Updated 09/20/18 @ 15:40 by Haleigh Palma MD) History of abdominal paracentesis (Chronic 09/06/18) History of GI bleed (Chronic) History of non-ST elevation myocardial infarction (NSTEMI) (Chronic 07/05/16) Atherosclerotic heart disease of [place] coronary artery without angina pectoris (Chronic) Stented coronary artery (Chronic) Cutting Balloon and TAMI (3.0X18 mm Xience) Proximal LAD 04/18/2012; Rotational atherectomy to proximal, id and distal RCA with two overlapping 4.0 X 38 Synergy TAMI ([facility] main) Hypervolemia (Chronic) Ascites (Chronic) Pancytopenia (Chronic) Other specified peripheral vascular diseases (Chronic) Afib (Chronic) Congenital coronary artery anomaly (Chronic) Bradycardia (Chronic) CAD (coronary artery disease) (Chronic) Diabetes mellitus, type II (Chronic) Hyperlipidemia (Chronic) Hypothyroidism (Chronic) Anemia in chronic kidney disease (Chronic) Hypertension (Chronic) End stage renal disease on dialysis (Chronic) Hospital Course and Treatment Operations: None, - Procedures: Dialysis Summary of Care Provided: The patient is a 73 year old F seen in the emergency room at [facility] with complaints of right upper quadrant abdominal pain and right lower rib pain. Patient stated her pain was worse on movement and worse and breathing deeply. Work-up in the emergency room included an EKG which showed a normal sinus rhythm with a first-degree AV block, labs were remarkable for a BUN of 18, creatinine of 4.33, potassium 5.4, and sodium of 131. Patient's CBC showed a white blood cell count of 2.6-patient has a history of chronic leukopenia. Urinalysis revealed over 100 white blood cells but no bacteria and no red blood cells. CT the abdomen and pelvis was obtained which showed moderate ascites, atrophy of the kidneys, and heterogeneous enhancement of the liver. Chest CTA did not reveal a pulmonary embolism, right lower lung infiltrate or edema was noted. There was a small pleural effusion on the right. Patient was placed in observation status on PCU, she underwent dialysis, and was given pain medication for her right lower chest pain and right upper abdominal pain. Rib studies were performed which showed no evidence of right rib fracture, the etiology of the patient's right lower rib pain and right upper quadrant abdominal pain was unknown. She did not undergo a paracentesis. On 09/21/2018, patient was seen and examined and felt to be in stable condition for discharge home: On examination she appeared in good health and spirits. Vital signs as documented. Skin warm and dry and without overt rashes. Neck without JVD. Lungs clear. Heart exam notable for regular rhythm, normal sounds and absence of murmurs, rubs or gallops. Abdomen unremarkable and without evidence of organomegaly, masses, or abdominal aortic enlargement. Extremities nonedematous. Neuro: Cranial nerves II through XII are grossly intact, no focal motor deficits were noted, sensation to light touch and pinprick is intact. Psych: Patient is alert and oriented x3, she does not appear anxious or depressed On 09/21/2018, patient was seen and examined felt to be stable for discharge home - Physical Exam Vital Signs Temp Pulse Resp BP Pulse Ox 98.2 F 62 16 128/55 H 94 09/21/18 16:30 09/21/18 16:30 09/21/18 16:30 09/21/18 16:30 09/21/18 16:30 Oxygen Delivery Method Room Air Weight: 85.7 kg Body Mass Index (BMI) 32.4 Finger Stick Blood Glucose 99 Intake and Output for Last 24 Hours 09/20/18 09/21/18 09/22/18 23:59 23:59 23:59 Intake Total 1041.3 / 1041.3 390 / 390 Output Total 1510 / 1510 1500 / 1500 Balance -468.7 / -468.7 -1110 / -1110 Discharge Activity: Return to Normal Activity Weight Bearing Status: Full weight bearing Home Medications: Medications to take at Discharge Cholecalciferol (Vitamin D3) [Vitamin D3] 5,000 unit PO MOWEFR 07/27/17 Gabapentin [Neurontin] 100 mg PO TID 07/27/17 pantoprazole 40 mg tablet,delayed release 40 mg PO DAILY 08/21/17 Atorvastatin Calcium [Lipitor] 80 mg PO QHS 12/26/17 Docusate Calcium [Stool Softener] 240 mg PO BID 12/26/17 Lactulose [Chronulac] 40 ml PO DAILY PRN 12/26/17 Losartan Potassium [Cozaar] 50 mg PO BID 12/26/17 Aspirin E.C. [Ecotrin] 81 mg PO DAILY@0800 #1 02/14/18 Carvedilol 12.5 mg PO BID 05/10/18 Insulin Lispro [Humalog] See Protocol SC TIDCM 05/10/18 Clopidogrel Bisulfate [Plavix] 75 mg PO DAILY 05/31/18 Insulin Glargine [Lantus SoloStar Pen] 22 units SC QHS 05/31/18 Oxycodone HCl/Acetaminophen [Percocet 7.5-325 mg Tablet] 1 tablet PO Q6H PRN PRN 05/31/18 Cyclobenzaprine HCl 5 mg PO BID 06/11/18 B Complex W-C No.20/Folic Acid [Virt-Caps Softgel] 1 mg PO UD 09/20/18 Isosorbide Mononitrate 20 mg PO TID 09/20/18 proMETHazine tablet [Phenergan tablet] 12.5 mg PO DAILY PRN PRN 09/20/18 Oxycodone [Oxyir] 5 - 10 mg PO Q6H PRN PRN 7 Days #20 tab 09/21/18 Following Prescrptions Were Given to Patient: Oxycodone [Oxyir] 5 - 10 mg PO Q6H PRN PRN 7 Days #20 tab PRN Reason: Pain Primary Care Physician: Davy Coleman MD [Primary Care Provider] - Please follow up with your Primary Care Physician in: next week Disposition: Home Minutes spent on discharge:: 32 Patient Condition:: Stable Medical Necessity - Tobacco Use Smoking Status: Former smoker Meaningful Use Info Meaningful Use Diagnoses (Choose all that apply): None applicable Code Visit OBSV E&M: 45626 Observation care discharge
--- NOTE | 2018-09-22 19:34 | PCM.CONS.R ---
Consultation - Renal 09/20/18 PCP/ Referring MD: Requesting physician: [] Primary care physician: Davy Coleman MD Reason for Consultation:: ESRD dialysis - History of Present Illness History of Present Illness: The patient is a 73 year old F known to me with ESRD due to diabetes on HD MWF admitted as observation for RUQ abdominal pain. She has chronic ascites requring intermittent paracentesis. She has high fluid gains between dialysis chronically, requiring intermittent isolated ultrafiltration in addition to her MWF treatments. She received iv contrast CT chest and abdomen. Studies essentially inconclusive to etiology of her abdominal pain other that her moderate ascites. Dialysis arranged for today. - Allergies Allergies: Allergies lisinopril Allergy (Severe, Verified 09/18/18 11:09) Angioedema nebivolol HCl [From Bystolic] Adverse Reaction (Severe, Verified 07/09/18 13:16) bradycardia BRADYCARDIA - Past Medical History Past Medical History (Chronic Problems): Chronic Problems (Last Updated 09/20/18 @ 15:40 by Haleigh Palma MD) History of abdominal paracentesis (Chronic 09/06/18) History of GI bleed (Chronic) History of non-ST elevation myocardial infarction (NSTEMI) (Chronic 07/05/16) Atherosclerotic heart disease of [place] coronary artery without angina pectoris (Chronic) Stented coronary artery (Chronic) Cutting Balloon and TAMI (3.0X18 mm Xience) Proximal LAD 04/18/2012; Rotational atherectomy to proximal, id and distal RCA with two overlapping 4.0 X 38 Synergy TAMI ([facility] main) Hypervolemia (Chronic) Ascites (Chronic) Pancytopenia (Chronic) Other specified peripheral vascular diseases (Chronic) Afib (Chronic) Congenital coronary artery anomaly (Chronic) Bradycardia (Chronic) CAD (coronary artery disease) (Chronic) Diabetes mellitus, type II (Chronic) Hyperlipidemia (Chronic) Hypothyroidism (Chronic) Anemia in chronic kidney disease (Chronic) Hypertension (Chronic) End stage renal disease on dialysis (Chronic) - Past Surgical History Surgical History: cholecystectomy, total knee arthroplasty, - - Left upper extremity fistula, cholecystectomy, back surgery, colon resection with history of diverticulitis, hysterectomy, appendectomy, right knee surgery, right total knee replacement, right foot surgery, left knee surgery, left foot surgery, PCI. - Social History Smoking Status: Former smoker Alcohol: None Drugs: None - Family History Maternal Family History: Family History (Last Reviewed 09/18/18 @ 11:03 by Sarah Mason) Sister Diabetes Heart disease Hypertension Anemia History Items: Cancer - uterine Paternal Family History: Family History (Last Reviewed 09/18/18 @ 11:03 by Sarah Mason) Sister Diabetes Heart disease Hypertension Anemia History Items: Cancer Sibling Family History: Family History (Last Reviewed 09/18/18 @ 11:03 by Sarah Mason) Sister Diabetes Heart disease Hypertension Anemia History Items: Diabetes - Physical Exam Vital Signs Temp Pulse Resp BP Pulse Ox 98.2 F 62 16 128/55 H 94 09/21/18 16:30 09/21/18 16:30 09/21/18 16:30 09/21/18 16:30 09/21/18 16:30 Oxygen Delivery Method Room Air Weight: 85.7 kg Body Mass Index (BMI) 32.4 Finger Stick Blood Glucose 99 Intake and Output for Last 24 Hours 09/20/18 09/21/18 09/22/18 23:59 23:59 23:59 Intake Total 1041.3 / 1041.3 390 / 390 Output Total 1510 / 1510 1500 / 1500 Balance -468.7 / -468.7 -1110 / -1110 Clinical Impression(s) from Imaging Studies Abdomen/Pelvis CT 09/20/18 12:08 IMPRESSION: 1. Moderate ascites fluid throughout the abdomen and pelvis. Extensive anasarca. 2. Old granulomatous disease 3. Severe atrophy of the kidneys 4. Extensive atherosclerotic disease of the abdominal aorta and great vessels of the abdomen 5. Heterogeneous enhancement of the liver Electronically Signed: Jason Danielle DO at 13:04 EDT Tel , Service support , Chest CTA 09/20/18 13:14 IMPRESSION: CTA chest examination, without a demonstrated pulmonary embolism or arterial dissection. Right lower lung infiltrate or edema. Small pleural effusion. Electronically Signed: Wojciech Hoffmann MD at 14:28 EDT , Service support , Chest X-Ray 09/21/18 05:55 IMPRESSION: Hypoinflated lungs. Elevated left hemidiaphragm with possible atelectasis Electronically Signed: Jason Danielle DO at 9:29 EDT Tel , Service support , Ribs X-Ray 09/21/18 10:22 IMPRESSION: No displaced rib fracture identified. Electronically Signed: Ryne Guerrero, at 12:01 EDT Tel , Service support , Assessment/Plan 1. ESRD HD today follow chronic orders 2. Abdominal pain, ascites 3. DM2 4. HTN stable 5. Noncompliance with fluid gains chronically
--- NOTE | 2018-09-22 19:37 | CON.PCM_ITS ---
Consultation - Renal 09/20/18 PCP/ Referring MD: Requesting physician: [] Primary care physician: Davy Coleman MD Reason for Consultation:: ESRD dialysis - History of Present Illness History of Present Illness: The patient is a 73 year old F known to me with ESRD due to diabetes on HD MWF admitted as observation for RUQ abdominal pain. She has chronic ascites requring intermittent paracentesis. She has high fluid gains between dialysis chronically, requiring intermittent isolated ultrafiltration in addition to her MWF treatments. She received iv contrast CT chest and abdomen. Studies essentially inconclusive to etiology of her abdominal pain other that her moderate ascites. Dialysis arranged for today. - Allergies Allergies: Allergies lisinopril Allergy (Severe, Verified 09/18/18 11:09) Angioedema nebivolol HCl [From Bystolic] Adverse Reaction (Severe, Verified 07/09/18 13:16) bradycardia BRADYCARDIA - Past Medical History Past Medical History (Chronic Problems): Chronic Problems (Last Updated 09/20/18 @ 15:40 by Haleigh Palma MD) History of abdominal paracentesis (Chronic 09/06/18) History of GI bleed (Chronic) History of non-ST elevation myocardial infarction (NSTEMI) (Chronic 07/05/16) Atherosclerotic heart disease of [place] coronary artery without angina pectoris (Chronic) Stented coronary artery (Chronic) Cutting Balloon and TAMI (3.0X18 mm Xience) Proximal LAD 04/18/2012; Rotational atherectomy to proximal, id and distal RCA with two overlapping 4.0 X 38 Synergy TAMI ([facility] main) Hypervolemia (Chronic) Ascites (Chronic) Pancytopenia (Chronic) Other specified peripheral vascular diseases (Chronic) Afib (Chronic) Congenital coronary artery anomaly (Chronic) Bradycardia (Chronic) CAD (coronary artery disease) (Chronic) Diabetes mellitus, type II (Chronic) Hyperlipidemia (Chronic) Hypothyroidism (Chronic) Anemia in chronic kidney disease (Chronic) Hypertension (Chronic) End stage renal disease on dialysis (Chronic) - Past Surgical History Surgical History: cholecystectomy, total knee arthroplasty, - - Left upper extremity fistula, cholecystectomy, back surgery, colon resection with history of diverticulitis, hysterectomy, appendectomy, right knee surgery, right total knee replacement, right foot surgery, left knee surgery, left foot surgery, PCI. - Social History Smoking Status: Former smoker Alcohol: None Drugs: None - Family History Maternal Family History: Family History (Last Reviewed 09/18/18 @ 11:03 by Sarah Mason) Sister Diabetes Heart disease Hypertension Anemia History Items: Cancer - uterine Paternal Family History: Family History (Last Reviewed 09/18/18 @ 11:03 by Sarah Mason) Sister Diabetes Heart disease Hypertension Anemia History Items: Cancer Sibling Family History: Family History (Last Reviewed 09/18/18 @ 11:03 by Sarah Mason) Sister Diabetes Heart disease Hypertension Anemia History Items: Diabetes - Physical Exam Vital Signs Temp Pulse Resp BP Pulse Ox 98.2 F 62 16 128/55 H 94 09/21/18 16:30 09/21/18 16:30 09/21/18 16:30 09/21/18 16:30 09/21/18 16:30 Oxygen Delivery Method Room Air Weight: 85.7 kg Body Mass Index (BMI) 32.4 Finger Stick Blood Glucose 99 Intake and Output for Last 24 Hours 09/20/18 09/21/18 09/22/18 23:59 23:59 23:59 Intake Total 1041.3 / 1041.3 390 / 390 Output Total 1510 / 1510 1500 / 1500 Balance -468.7 / -468.7 -1110 / -1110 Clinical Impression(s) from Imaging Studies Abdomen/Pelvis CT 09/20/18 12:08 IMPRESSION: 1. Moderate ascites fluid throughout the abdomen and pelvis. Extensive anasarca. 2. Old granulomatous disease 3. Severe atrophy of the kidneys 4. Extensive atherosclerotic disease of the abdominal aorta and great vessels of the abdomen 5. Heterogeneous enhancement of the liver Electronically Signed: Jason Danielle DO at 13:04 EDT Tel , Service support , Chest CTA 09/20/18 13:14 IMPRESSION: CTA chest examination, without a demonstrated pulmonary embolism or arterial dissection. Right lower lung infiltrate or edema. Small pleural effusion. Electronically Signed: Wojciech Hoffmann MD at 14:28 EDT , Service support , Chest X-Ray 09/21/18 05:55 IMPRESSION: Hypoinflated lungs. Elevated left hemidiaphragm with possible atelectasis Electronically Signed: Jason Danielle DO at 9:29 EDT Tel , Service support , Ribs X-Ray 09/21/18 10:22 IMPRESSION: No displaced rib fracture identified. Electronically Signed: Ryne Guerrero, at 12:01 EDT Tel , Service support , Assessment/Plan 1. ESRD HD today follow chronic orders 2. Abdominal pain, ascites 3. DM2 4. HTN stable 5. Noncompliance with fluid gains chronically
[2018-09-23 12:53] LABS: Pathologist Review Reviewed
== END 2018-09-21 14:41 | disposition home or self-care (01) ==
LOC: ED 14:47 → PCU 14:58
PROVIDERS: Admitting Provider Hospitalist; Emergency Provider Emergency Medicine; Family Provider Family Medicine; PCP Family Medicine; Visit Provider Internal Medicine
DX: R07.81 Pleurodynia (principal); I25.10 Atherosclerotic heart disease of native coronary artery without angina pectoris; E11.22 Type 2 diabetes mellitus with diabetic chronic kidney disease; N18.6 End stage renal disease; D63.1 Anemia in chronic kidney disease; R18.8 Other ascites; I12.0 Hypertensive chronic kidney disease with stage 5 chronic kidney disease or end stage renal disease; E03.9 Hypothyroidism, unspecified; I25.2 Old myocardial infarction; I48.2 Chronic atrial fibrillation; H54.40 Blindness, one eye, unspecified eye; K76.9 Liver disease, unspecified; D61.818 Other pancytopenia; Z95.5 Presence of coronary angioplasty implant and graft; E78.5 Hyperlipidemia, unspecified; Z79.899 Other long term (current) drug therapy; Z79.82 Long term (current) use of aspirin; Z79.02 Long term (current) use of antithrombotics/antiplatelets; Z97.4 Presence of external hearing-aid; Z87.891 Personal history of nicotine dependence
CPT/HCPCS: 36415; 71046; 71100; 71275; 74177; 80053; 81001; 82962; 83605; 83690; 84484; 85025; 85610; 85730; 90937; 93005; 96361; 96374; 96375; 96376; 97802; 99218; 99285; J7030; Q9967; A4216; G0257; G0378; J2405

== ENCOUNTER 2018-09-24 16:00 | Emergency (ER) | payer MEDICARE, SELFPAY ==
[2018-06-11 11:00] VITALS: BMI 27.1
[2018-09-24 15:02] VITALS: BMI 31.6
[2018-09-24 16:01] VITALS: BP 151/65; PULSE 74; RESP 16; TEMP 36.3; BMI 31.4
--- NOTE | 2018-09-24 16:44 | ED.RN ---
pt was just admitted for same thing but couldnt find anything wrong rt upper quad pain under rt breast that wraps around to back worse when moves or takes deep breath. pt reported some bloody stool as well last night. in at bedside. sent in by dr. garza today
--- NOTE | 2018-09-24 16:48 | ED.DEP ---
ED Disposition - Plan for ED Patient: Disposition: Home or Assisted Living Instructions: ED Abdominal Pain Unkn Cause Referrals: Davy Coleman MD [Primary Care Provider] - 1 Week if not improving Additional Instructions: I reviewed all your tests from a week ago. They were basically unremarkable. I think your upper abdominal pain may be strain of your abdominal wall. Ice to the area and Tylenol for pain. Follow-up if not improving.
--- NOTE | 2018-09-24 16:50 | ED.VISSUMM ---
- ER Visit Summary Date of Service: 09/24/18 Chief Complaint: Upper abdominal pain right greater than left History of Present Illness: The patient is a 73 F extensive past medical history of insulin-dependent diabetes, CAD, MA, cardiac stent. Prior cholecystectomy. History of anemia and A. fib. End-stage renal disease and currently on dialysis. Dialyzed Sunday. Had dialysis on Sunday and even additional dialysis yesterday. She was admitted last week for abdominal pain uncertain etiology. At that time it is CTA of her chest showing no PE or dissection. CT of her abdomen and pelvis showing ascites but no acute process and she has had that before. Labs are basically unremarkable other than chronic anemia and unremarkable liver enzymes. She is had a prior cholecystectomy. She is had no fever. They hospitalized for 1 day could not come up with a specific cause. 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 She says no worse or different. It is worse with movement. She does not make any urine. She is had normal bowel movements. Physical Examination: Well-appearing elderly female. Vital signs are stable afebrile. No distress. HEENT exam unremarkable. Neck nontender. Lungs clear to auscultation bilaterally. Heart regular rhythm rate in the 70s. Chest wall nontender ribs nontender. Abdomen soft. Mild ascites. No peritoneal signs. No signs of obstruction. She does have mild bilateral upper abdominal wall discomfort. It seems to be superficial. It is worse with trying to sit up from a lying position. Like it could be musculoskeletal in etiology. There is no ecchymosis or bruising. No Villafana sign. She is a well-healed prior open cholecystectomy scar. No obvious hernias or masses. Patient is moving all 4 extremities. She has 1+ edema both lower extremities which is chronic. Neurologically she is awake alert with no focal motor deficits. Back exam is nontender. Test Results: Patient had extensive testing on the fourth. CAT scans of her chest, abdomen and pelvis chest x-ray and rib series were all unremarkable. Lab work at that time was chronic anemia and unremarkable liver enzymes. I explained to the patient her I do not feel any further testing was warranted or be of any benefit. They are comfortable with that plan. Emergency Department Course and Treatment: Discharge to home. Treatment Plan: Discharged to follow-up with her primary care physician if not improving. Ice to the abdominal wall. Tylenol for pain. Disposition: Discharge Impression: Bilateral upper abdominal pain secondary to abdominal wall strain History of end-stage renal disease, prior cholecystectomy and known abdominal ascites This note was generated with fotopedia dictation software. It may contain incorrect words, spelling, and punctuation that were not noted in review of the chart prior to signing ED Disposition - Plan for ED Patient: Instructions: ED Abdominal Pain Unkn Cause Referrals: Davy Coleman MD [Primary Care Provider] - 1 Week if not improving Additional Instructions: I reviewed all your tests from a week ago. They were basically unremarkable. I think your upper abdominal pain may be strain of your abdominal wall. Ice to the area and Tylenol for pain. Follow-up if not improving.
--- NOTE | 2018-09-24 16:54 | ED.DCSUM_ITS ---
- ER Visit Summary Date of Service: 09/24/18 Chief Complaint: Upper abdominal pain right greater than left History of Present Illness: The patient is a 73 F extensive past medical history of insulin-dependent diabetes, CAD, [place], cardiac stent. Prior cholecystectomy. History of anemia and A. fib. End-stage renal disease and currently on dialysis. Dialyzed Sunday. Had dialysis on Sunday and even additional dialysis yesterday. She was admitted last week for abdominal pain uncertain etiology. At that time it is CTA of her chest showing no PE or dissection. CT of her abdomen and pelvis showing ascites but no acute process and she has had that before. Labs are basically unremarkable other than chronic anemia and unremarkable liver enzymes. She is had a prior cholecystectomy. She is had no fever. They hospitalized for 1 day could not come up with a specific cause. 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 She says no worse or different. It is worse with movement. She does not make any urine. She is had normal bowel movements. Physical Examination: Well-appearing elderly female. Vital signs are stable afebrile. No distress. HEENT exam unremarkable. Neck nontender. Lungs clear to auscultation bilaterally. Heart regular rhythm rate in the 70s. Chest wall nontender ribs nontender. Abdomen soft. Mild ascites. No peritoneal signs. No signs of obstruction. She does have mild bilateral upper abdominal wall discomfort. It seems to be superficial. It is worse with trying to sit up from a lying position. Like it could be musculoskeletal in etiology. There is no ecchymosis or bruising. No Villafana sign. She is a well-healed prior open cholecystectomy scar. No obvious hernias or masses. Patient is moving all 4 extremities. She has 1+ edema both lower extremities which is chronic. Neurologically she is awake alert with no focal motor deficits. Back exam is nontender. Test Results: Patient had extensive testing on the fourth. CAT scans of her chest, abdomen and pelvis chest x-ray and rib series were all unremarkable. Lab work at that time was chronic anemia and unremarkable liver enzymes. I explained to the patient her I do not feel any further testing was warranted or be of any benefit. They are comfortable with that plan. Emergency Department Course and Treatment: Discharge to home. Treatment Plan: Discharged to follow-up with her primary care physician if not improving. Ice to the abdominal wall. Tylenol for pain. Disposition: Discharge Impression: Bilateral upper abdominal pain secondary to abdominal wall strain History of end-stage renal disease, prior cholecystectomy and known abdominal ascites This note was generated with [employer] dictation software. It may contain incorrect words, spelling, and punctuation that were not noted in review of the chart prior to signing ED Disposition - Plan for ED Patient: Instructions: ED Abdominal Pain Unkn Cause Referrals: Davy Coleman MD [Primary Care Provider] - 1 Week if not improving Additional Instructions: I reviewed all your tests from a week ago. They were basically unremarkable. I think your upper abdominal pain may be strain of your abdominal wall. Ice to the area and Tylenol for pain. Follow-up if not improving.
== END 2018-09-24 17:14 | disposition home or self-care (01) ==
PROVIDERS: Emergency Provider Emergency Medicine; Family Provider Family Medicine; PCP Family Medicine
DX: S39.011A Strain of muscle, fascia and tendon of abdomen, initial encounter (principal); R10.11 Right upper quadrant pain; R10.12 Left upper quadrant pain; X58.XXXA Exposure to other specified factors, initial encounter; Y93.9 Activity, unspecified; Y92.9 Unspecified place or not applicable; E11.22 Type 2 diabetes mellitus with diabetic chronic kidney disease; I12.0 Hypertensive chronic kidney disease with stage 5 chronic kidney disease or end stage renal disease; N18.6 End stage renal disease; Z99.2 Dependence on renal dialysis; R18.8 Other ascites; D53.9 Nutritional anemia, unspecified; Z90.49 Acquired absence of other specified parts of digestive tract; I25.10 Atherosclerotic heart disease of native coronary artery without angina pectoris; I25.2 Old myocardial infarction; I48.91 Unspecified atrial fibrillation; Z95.5 Presence of coronary angioplasty implant and graft; Z79.82 Long term (current) use of aspirin; Z79.02 Long term (current) use of antithrombotics/antiplatelets; Z79.4 Long term (current) use of insulin; Z79.899 Other long term (current) drug therapy
CPT/HCPCS: 99282

== ENCOUNTER → 2018-10-15 | Outpatient (CLI) | payer MEDICARE, SELFPAY ==
[2018-06-11 11:00] VITALS: BMI 27.1
[2018-09-24 16:01] VITALS: BMI 31.4
--- NOTE | 2018-10-15 15:52 | RAD_ITS ---
STUDY: X-RAY - RIGHT SHOULDER REASON FOR EXAM: Female, 73 years old. Pain. TECHNIQUE: 4 view(s) of the shoulder. COMPARISON: April 13, 2018 FINDINGS: Normal glenohumeral articulation. There are degenerative changes of the acromioclavicular joint. Normal acromion. There is a deformity of the medial humeral head. The soft tissue structures are unremarkable. There is a right lateral sixth rib fracture. RAD/Shoulder min 2 Views IMPRESSION: Right sixth rib fracture of uncertain chronicity. Medial humeral head deformity may be secondary to an old fracture. Degenerative changes. Electronically Signed: Sue Paul MD at 16:12 EDT Tel , Service support ,
== END | disposition home or self-care (01) ==
LOC: HPRAD 15:50
PROVIDERS: Family Provider Family Medicine; PCP Family Medicine; Referring Provider Nurse Practitioner Family; Visit Provider Nurse Practitioner Family
DX: M25.511 Pain in right shoulder (principal)
CPT/HCPCS: 73030

== ENCOUNTER → 2018-10-17 | Outpatient (CLI) | payer MEDICARE, SELFPAY ==
[2018-06-11 11:00] VITALS: BMI 27.1
[2018-09-24 16:01] VITALS: BMI 31.4
--- NOTE | 2018-10-17 08:14 | US_ITS ---
PROCEDURE: Ultrasound guided paracentesis. DATE OF EXAMINATION: October 17, 2018. INDICATION: Female, 73 years old. Ascites. PHYSICIAN: Eric Mckay M.D. TECHNIQUE: The risks, benefits, and alternatives to the procedure were explained to the patient. The specific risks of bleeding, infection, and damage to bowel were detailed and accepted. Witnessed informed consent was obtained. The abdomen was ultrasonographically surveyed. An appropriate pocket of fluid was identified at the right lower quadrant. The skin were cleaned and prepped in the usual sterile fashion. Using ultrasound guidance, the peritoneal cavity was accessed with a 5-Cypriot paracentesis needle/catheter system. The trocar was removed. A total of 4250 ml of ron-colored fluid were removed from the peritoneal cavity. The catheter was removed and a sterile dressing was applied. The procedure was well tolerated. US/Paracentesis with US IMPRESSION: Ultrasound guided paracentesis. Electronically Signed: Eric Mckay, at 9:19 EDT , Service support ,
[2018-10-17 09:18] VITALS: BP 144/54; BP 145/58; PULSE 72; RESP 18; O2SAT 96; O2SAT 97; O2SAT 99
== END | disposition home or self-care (01) ==
PROVIDERS: Family Provider Family Medicine; PCP Family Medicine; Referring Provider Family Medicine; Visit Provider Family Medicine
DX: R18.8 Other ascites (principal)
CPT/HCPCS: 49083

== ENCOUNTER → 2018-11-05 | Outpatient (CLI) | payer MEDICARE, SELFPAY ==
[2018-06-11 11:00] VITALS: BMI 27.1
--- NOTE | 2018-11-05 10:58 | ART_ITS ---
Reason For Study: PVD Procedure A bilateral lower extremity continuous wave Doppler with analog waveform analysis,segmental pressures,and ankle brachial indexes without exercise. Left Segmental Pressures Left posterior tibial artery = >254mmHg. Left dorsalis pedis artery = >254mmHg. Left digit = 145 mmHg. The left dorsalis pedis waveforms are triphasic. The left posterior tibial artery waveforms are triphasic. Right Segmental Pressures Right brachial= 114mmHg. Right posterior tibial artery = >254mmHg. Right dorsalis pedis artery = >254mmHg. Right digit = 137 mmHg. The right dorsalis pedis waveforms are triphasic. The right posterior tibial artery waveforms are triphasic. Indices The right ankle brachial index by the dorsalis pedis is NC. The right ankle brachial index by the posterior tibial artery is NC. The right digital-brachial index is 1.20. The left ankle brachial index by the dorsalis pedis is NC. The left ankle brachial index by the posterior tibial artery is NC. The left digital-brachial index is 1.27. Interpretation Summary Triphasic Doppler waveforms are noted at ankle level bilaterally. Pulse-volume recording waveform amplitudes are satisfactory at all levels bilaterally, including low-thigh, calf, ankle, and digital levels. Resting ankle-brachial indices could not be determined bilaterally due to the non- compressibility of the vasculature. Digital-brachial indices are normal bilaterally. There is no evidence of significant arterial occlusive disease in the lower extremities bilaterally. However, there is evidence of arterial calcification bilaterally, rendering the arterial tree non- compressible at ankle level bilaterally, and perhaps elevating the calculated digital-brachial indices. Ordering Physician: Alan Hdez Performed By: Matilde Lopes RVT
== END | disposition home or self-care (01) ==
PROVIDERS: Family Provider Family Medicine; PCP Family Medicine; Referring Provider Podiatrist; Visit Provider Podiatrist
DX: I73.9 Peripheral vascular disease, unspecified (principal)
CPT/HCPCS: 93923

== ENCOUNTER → 2018-11-19 | Outpatient (CLI) | payer MEDICARE, SELFPAY ==
[2018-06-11 11:00] VITALS: BMI 27.1
--- NOTE | 2018-11-19 09:57 | US_ITS ---
PROCEDURE: Ultrasound guided paracentesis. DATE OF EXAMINATION: November 19, 2018.. INDICATION: Female, 73 years old. Ascites. PHYSICIAN: Eric Mckay M.D. TECHNIQUE: The risks, benefits, and alternatives to the procedure were explained to the patient. The specific risks of bleeding, infection, and damage to bowel were detailed and accepted. Witnessed informed consent was obtained. The abdomen was ultrasonographically surveyed. An appropriate pocket of fluid was identified at the right lower quadrant. The skin were cleaned and prepped in the usual sterile fashion. Using ultrasound guidance, the peritoneal cavity was accessed with a 5-Icelandic paracentesis needle/catheter system. The trocar was removed. A total of 5300 ml of ron-colored fluid were removed from the peritoneal cavity. The catheter was removed and a sterile dressing was applied. The procedure was well tolerated. US/Paracentesis with US IMPRESSION: Ultrasound guided paracentesis. Electronically Signed: Eric Mckay, at 11:49 EDT , Service support ,
[2018-11-19 10:02] LABS: International Normalized Ratio 1.4
[2018-11-19 10:03] LABS: Partial Thromboplast Time 34.9 Seconds (24.1-36.2)
[2018-11-19 10:50] VITALS: BP 136/60; BP 139/53; BP 143/53; PULSE 62; PULSE 63; RESP 16; RESP 18; O2SAT 98
== END | disposition home or self-care (01) ==
PROVIDERS: Family Provider Family Medicine; PCP Family Medicine; Referring Provider Family Medicine; Visit Provider Family Medicine
DX: R18.8 Other ascites (principal); E11.22 Type 2 diabetes mellitus with diabetic chronic kidney disease; N18.9 Chronic kidney disease, unspecified
CPT/HCPCS: 36415; 49083; 85610; 85730

== ENCOUNTER → 2018-12-19 | Outpatient (CLI) | payer MEDICARE, SELFPAY ==
[2018-06-11 11:00] VITALS: BMI 27.1
--- NOTE | 2018-12-19 12:04 | US_ITS ---
PROCEDURE: Ultrasound guided paracentesis. DATE OF EXAMINATION: December 19, 2018. INDICATION: Female, 73 years old. Ascites. PHYSICIAN: Eric Mckay M.D. TECHNIQUE: The risks, benefits, and alternatives to the procedure were explained to the patient. The specific risks of bleeding, infection, and damage to bowel were detailed and accepted. Witnessed informed consent was obtained. The abdomen was ultrasonographically surveyed. An appropriate pocket of fluid was identified at the right lower quadrant. The skin were cleaned and prepped in the usual sterile fashion. Using ultrasound guidance, the peritoneal cavity was accessed with a 5-Bulgarian paracentesis needle/catheter system. The trocar was removed. A total of 4550 ml of ron-colored fluid were removed from the peritoneal cavity. The catheter was removed and a sterile dressing was applied. The procedure was well tolerated. US/Paracentesis with US IMPRESSION: Ultrasound guided paracentesis. Electronically Signed: Eric Mckay, at 13:39 EDT , Service support ,
[2018-12-19 14:08] VITALS: BP 180/66; BP 188/73; BP 199/70; PULSE 67; PULSE 70; PULSE 72; RESP 14; O2SAT 96; O2SAT 97
== END | disposition home or self-care (01) ==
PROVIDERS: Family Provider Family Medicine; PCP Family Medicine; Referring Provider Family Medicine; Visit Provider Family Medicine
DX: R18.8 Other ascites (principal)
CPT/HCPCS: 49083

== ENCOUNTER → 2019-01-09 | Outpatient (CLI) | payer MEDICARE, SELFPAY ==
[2018-06-11 11:00] VITALS: BMI 27.1
[2019-01-09 14:07] LABS: Absolute Lymphocyte Count 0.79 X10^3/uL (0.83-4.51); Absolute Neutrophil Count 1.8 X10^3/uL (2.0-7.7); Basophil# 0.05 X10^3/uL; Basophil% 1.5 % (0-1); Eosinophil# 0.26 X10^3/uL; Eosinophils% 7.6 % (0-5); Hematocrit 31.8 % (37-47); Hemoglobin 9.9 g/dL (12.0-15.0); Lymphocyte # 0.79 X10^3/ul (4.0); Lymphocyte % 23.2 % (19-41); Mean Corp Hgb Conc 31.1 g/dL (32-36); Mean Corpuscular Hgb 31.4 pg (27.0-32.0); Mean Platelet Vol. 9.2 fl (6.2-12.0); Monocyte# 0.45 X10^3/uL; Monocyte% 13.2 % (0-10); NRBC Flagged by Analyzer 0 % (0-5); Neutrophil # 1.84 X10^3/uL (2.7-7.7); Neutrophil % 54.2 % (47-70); Platelet Count 101 K/mm3 (150-450); RBC Distribution Width CV 16.5 % (11.6-14.6); RBC Distribution Width SD 60.3 fl (35.1-43.9); Red Blood Count 3.15 M/mm3 (4.2-5.4); White Blood Count 3.4 K/mm3 (4.4-11.0)
[2019-01-09 14:18] LABS: International Normalized Ratio 1.3; Partial Thromboplast Time 37.1 Seconds (24.1-36.2); Prothrombin Time (Protime)PT. 16.4 SECONDS (11.7-14.9)
--- NOTE | 2019-01-09 14:54 | US_ITS ---
STUDY: ABDOMINAL ULTRASOUND - RIGHT UPPER QUADRANT REASON FOR VISIT: Female, 73 years old. Assessment of ascites fluid TECHNIQUE: Ultrasound evaluation of the peritoneal space was performed with real-time and static martinez-scale imaging. TECHNICAL QUALITY: Adequate. COMPARISON: None. FINDINGS: There is only a small amount of ascites fluid present, not adequate for a safe sonographic guided paracentesis. US/Abdomen Limited IMPRESSION: Ascites fluid not adequate for a safe sonographic guided paracentesis. Scheduled paracentesis is to be postponed for about a week. Electronically Signed: Fabrice Coley MD at 15:38 EDT Tel [phone], Service support ,
== END | disposition home or self-care (01) ==
PROVIDERS: Internal Medicine Hematology & Oncology; Family Provider Family Medicine; PCP Family Medicine; Referring Provider Family Medicine; Visit Provider Family Medicine
DX: R18.8 Other ascites (principal); E11.22 Type 2 diabetes mellitus with diabetic chronic kidney disease; N18.9 Chronic kidney disease, unspecified; D62 Acute posthemorrhagic anemia; D63.1 Anemia in chronic kidney disease
CPT/HCPCS: 36415; 76705; 85025; 85610; 85730

== ENCOUNTER → 2019-01-16 | Outpatient (CLI) | payer MEDICARE, SELFPAY ==
[2018-06-11 11:00] VITALS: BMI 27.1
--- NOTE | 2019-01-16 08:28 | US_ITS ---
PROCEDURE: Ultrasound guided paracentesis. DATE OF EXAMINATION: January 16, 2019.. INDICATION: Female, 73 years old. Ascites. PHYSICIAN: Eric Mckay M.D. TECHNIQUE: The risks, benefits, and alternatives to the procedure were explained to the patient. The specific risks of bleeding, infection, and damage to bowel were detailed and accepted. Witnessed informed consent was obtained. The abdomen was ultrasonographically surveyed. An appropriate pocket of fluid was identified at the right lower quadrant. The skin were cleaned and prepped in the usual sterile fashion. Using ultrasound guidance, the peritoneal cavity was accessed with a 5-Anguillan paracentesis needle/catheter system. The trocar was removed. A total of 4650 ml of ron-colored fluid were removed from the peritoneal cavity. The catheter was removed and a sterile dressing was applied. The procedure was well tolerated. US/Paracentesis with US IMPRESSION: Ultrasound guided paracentesis. Electronically Signed: Eric Mckay, at 13:11 EDT , Service support ,
[2019-01-16 08:34] VITALS: BP 161/73; BP 165/64; PULSE 70; PULSE 76; RESP 18; O2SAT 97; O2SAT 99
--- NOTE | 2019-01-16 10:35 | NURSING ---
0930 patient to doctors office for scheduled apt. pt felta little dizzy on traveling to the other part of the hospital, upon arrival laid patient on a cart and contacted the doctors office nurse for assistance, pt felt better after laying done, Hawa doctors office nurse gaver he something light to eat (she stated she did not have breakfast) report given to Hawa pt stable upon my leaving vital prior to leaving Radiology, 152/89. heart rate 78, sats 97% on room air and respirations 18. Dressing dry intact.
== END | disposition home or self-care (01) ==
PROVIDERS: Family Provider Family Medicine; PCP Family Medicine; Referring Provider Family Medicine; Visit Provider Family Medicine
DX: R18.8 Other ascites (principal)
CPT/HCPCS: 49083

== ENCOUNTER → 2019-02-13 13:38 | Outpatient (CLI) | payer MEDICARE, SELFPAY ==
[2018-06-11 11:00] VITALS: BMI 27.1
[2019-01-16 10:02] VITALS: BMI 32.5
--- NOTE | 2019-02-13 13:59 | US_ITS ---
PROCEDURE: Ultrasound guided paracentesis. DATE OF EXAMINATION: February 13, 2019. INDICATION: Female, 74 years old. Ascites. PHYSICIAN: Eric Mckay M.D. TECHNIQUE: The risks, benefits, and alternatives to the procedure were explained to the patient. The specific risks of bleeding, infection, and damage to bowel were detailed and accepted. Witnessed informed consent was obtained. The abdomen was ultrasonographically surveyed. An appropriate pocket of fluid was identified at the right lower quadrant. The skin were cleaned and prepped in the usual sterile fashion. Using ultrasound guidance, the peritoneal cavity was accessed with a 5-Peruvian paracentesis needle/catheter system. The trocar was removed. A total of 4250 ml of ron-colored fluid were removed from the peritoneal cavity. The catheter was removed and a sterile dressing was applied. The procedure was well tolerated. US/Paracentesis with US IMPRESSION: Ultrasound guided paracentesis. Electronically Signed: Eric Mckay, at 15:24 EDT , Service support ,
[2019-02-13 14:04] LABS: International Normalized Ratio 1.4; Prothrombin Time (Protime)PT. 17.2 SECONDS (11.7-14.9)
[2019-02-13 14:05] LABS: Partial Thromboplast Time 38.2 Seconds (24.1-36.2)
[2019-02-13 15:13] VITALS: BP 186/78; BP 189/70; BP 191/72; PULSE 72; PULSE 77; PULSE 78; RESP 16; O2SAT 96; O2SAT 97; O2SAT 98
== END ==
PROVIDERS: Family Provider Family Medicine; PCP Family Medicine; Referring Provider Nurse Practitioner Family; Visit Provider Nurse Practitioner Family
DX: R18.8 Other ascites (principal); E11.22 Type 2 diabetes mellitus with diabetic chronic kidney disease; N18.9 Chronic kidney disease, unspecified
CPT/HCPCS: 36415; 49083; 85610; 85730

== ENCOUNTER 2019-02-13 15:07 | Observation (INO) | payer MEDICARE, SELFPAY ==
[2018-06-11 11:00] VITALS: BMI 27.1
[2019-01-16 10:02] VITALS: BMI 32.5
[2019-02-13] VITALS (11 sets, daily range): BP systolic 135–191; BP diastolic 49–75; PULSE 68–81; RESP 15–20; TEMP 36.6–36.9; O2SAT 97–100; BMI 33.3; BMI 30.9; BMI 31.0
--- NOTE | 2019-02-13 15:33 | RAD_ITS ---
STUDY: X-RAY CHEST REASON FOR EXAM: Female, 74 years old. Shortness of breath/dyspnea. Lower extremity edema. TECHNIQUE: Single AP portable view of the chest. COMPARISON: Comparison is made with prior study dated April 12, 2018. FINDINGS: Surgical clips are seen in the right axillary region. Mild increased markings at the bases suggestive of scarring. Calcified old granulomatous disease. There is no demonstrated pleural abnormality. Mild cardiomegaly. Normal mediastinum and roxy. Normal visualized pulmonary arteries. There is atherosclerotic calcification of the aortic arch with tortuosity. There are diffuse degenerative changes of the visualized thoracic spine. Healed right rib fractures. There is no demonstrated abnormality of the visualized soft tissue structures of the upper abdomen. RAD/Chest 1 View (Portable) IMPRESSION: Increased markings at the lung bases suggestive of atelectasis and/or scarring worse on the right base. Electronically Signed: Eric Mckay, at 15:55 EDT , Service support ,
--- NOTE | 2019-02-13 15:33 | EKG12_ITS ---
Test Reason : EDEMA Blood Pressure : / mmHG Vent. Rate : 072 BPM Atrial Rate : 055 BPM P-R Int : 000 ms QRS Dur : 094 ms QT Int : 420 ms P-R-T Axes : 000 006 055 degrees QTc Int : 459 ms Atrial fibrillation Low voltage QRS Abnormal ECG Confirmed by QUIRINO NEWMAN, NANCIE ([id number]), editor managing director ÁNGEL CALDERON ([id number]) on 02/17/2019 3:33:46 PM Referred By: Cheyenne Benavidez Confirmed By:NANCIE WIN MD
--- NOTE | 2019-02-13 15:35 | ED.VISSUMM ---
- ER Visit Summary Date of Service: 02/13/19 Chief Complaint: [Swelling to legs] History of Present Illness: The patient is a 74 F [presents to the emergency department complaint of swelling to her legs that started 2 days ago. Patient states that today she was at the hospital having a paracentesis performed which she has performed every month and they noted that her legs were swollen and seeping so they referred her to the emergency department. Patient patient states that she has end-stage renal disease and does get dialyzed 3 times a week. Patient was last dialyzed yesterday. Patient also states that she had a hard time sleeping last night and she did notice that she had some chest discomfort that radiated through to her back early this morning. She is not currently having any chest pain. Patient has history of coronary artery disease, diabetes, hypertension, cholesterol, A. fib, ascites, and end-stage renal disease.] Physical Examination: [HEENT-PERRLA, EOMI. Cranial nerves II through XII grossly intact. TMs clear. Mucous membranes moist. No adenopathy. Cardiovascular-regular rate and rhythm without murmur or ectopy Lungs-clear to auscultation, chest wall stable without crepitus or subcu emphysema Abdomen-normoactive bowel sounds, soft, nontender, no rebound or rigidity, no peritoneal signs. Extremities-intact ?4, normal range of motion, normal pulses, atraumatic. Patient does have edema both lower extremities that extends to the thighs. She does have some excoriated friable skin and some weeping noted.] Test Results: [EKG obtained on arrival showed a atrial fibrillation with a ventricular rate of 72 bpm with no acute ST segment changes. CBC with differential showed a white count of 4.1, hemoglobin 10, hematocrit 33, plates 122. Chemistries show sodium 129, potassium 4.6, chloride 92, CO2 30, glucose 234, BUN 25, creatinine 3.76. Troponin was 0.023. Chest x-ray showed increased markings and atelectasis/scarring of the lung bases.] Emergency Department Course and Treatment: [Patient was given aspirin in the emergency department. She did complain of chest pain while in the department and the chest pain was ongoing during her initial EKG. She received sublingual nitroglycerin that mostly resolved her pain and she had a Nitropaste placed to the anterior chest wall.] Treatment Plan: [Admit for further work-up and evaluation of her chest pain] Disposition: [Admit] Impression: [Chest pain-rule out acute coronary syndrome Lower extremity edema] This note was generated with [employer] dictation software. It may contain incorrect words, spelling, and punctuation that were not noted in review of the chart prior to signing ED Disposition - Plan for ED Patient: Referrals: Davy Coleman MD [Primary Care Provider] -
[2019-02-13 16:25] LABS: Anion Gap 7 (5-15); BUN 25 mg/dL (7-18); BUN/Creat Ratio 6.6 RATIO (10-20); Chloride 92 mmol/L (98-107); Creatinine, Serum 3.76 mg/dL (0.55-1.02); EST Glomerular Filtration Rate 12 mL/min (>60); Est Glom Filt Rate - Afr Amer 15 mL/min (>60); Estimated Creatinine Clearance 11.45 ml/min; Glucose 234 mg/dL (74-106); Potassium 4.6 mmol/L (3.5-5.1); Sodium Level 129 mmol/L (136-145)
[2019-02-13 16:26] LABS: Absolute Lymphocyte Count 0.92 X10^3/uL (0.83-4.51); Absolute Neutrophil Count 2.4 X10^3/uL (2.0-7.7); Basophil# 0.04 X10^3/uL; Eosinophil# 0.25 X10^3/uL; Lymphocyte # 0.92 X10^3/ul (4.0); Lymphocyte % 22.2 % (19-41); Mean Corp Hgb Conc 30.3 g/dL (32-36); Mean Corpuscular Hgb 29.6 pg (27.0-32.0); Mean Corpuscular Volume 97.6 fL (81-99); Mean Platelet Vol. 10.6 fl (6.2-12.0); Monocyte# 0.52 X10^3/uL; Monocyte% 12.6 % (0-10); NRBC Flagged by Analyzer 0 % (0-5); Neutrophil # 2.39 X10^3/uL (2.7-7.7); Neutrophil % 57.7 % (47-70); Platelet Count 122 K/mm3 (150-450); RBC Distribution Width CV 17.1 % (11.6-14.6); RBC Distribution Width SD 59.1 fl (35.1-43.9); Red Blood Count 3.38 M/mm3 (4.2-5.4); White Blood Count 4.1 K/mm3 (4.4-11.0)
[2019-02-13] MEDS: Nitroglycerin Oint 1 INCH PACKET TRANSDERM. (16:57)
[2019-02-13] MEDS: Aspirin 81 MG TAB.CHEW 324 MG PO (16:59)
--- NOTE | 2019-02-13 17:04 | HP.PCM_ITS ---
<Ines Lorenz - Last Filed: 02/13/19 17:33> Problem List (1) History of abdominal paracentesis Status: Chronic (2) History of GI bleed Status: Chronic (3) History of non-ST elevation myocardial infarction (NSTEMI) Status: Chronic (4) Atherosclerotic heart disease of [place] coronary artery without angina pectoris Status: Chronic (5) Stented coronary artery Status: Chronic Comment: Cutting Balloon and TAMI (3.0X18 mm Xience) Proximal LAD 04/18/2012; Rotational atherectomy to proximal, id and distal RCA with two overlapping 4.0 X 38 Synergy TAMI ([facility] main) (6) Hypervolemia Status: Chronic (7) Ascites Status: Chronic (8) Pancytopenia Status: Chronic (9) Other specified peripheral vascular diseases Status: Chronic (10) Afib Status: Chronic (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 The patient is a 74 year old F who presents emergency room due to chest pain. She reports her chest pain initially began early this morning and woke her from her sleep. She states it lasted about 3 to 4 hours and resolved without any intervention. She describes a chest pressure on the right side of her chest with radiation to her back. She states she has associated shortness of breath. Denies dizziness, lightheadedness, nausea or diaphoresis. She states pain seems to be positional and worsens/improves with change of position. She has a past medical history of end-stage renal disease on hemodialysis, chronic ascites with recurrent paracentesis, most recently today, CAD status post angioplasty and stenting, type 2 diabetes mellitus, hypertension, hyperlipidemia, chronic pancytopenia, hypothyroidism. Past Medical History Past Medical History (Chronic Problems): Chronic Problems (Last Reviewed 01/16/19 @ 10:00 by Louise Donnelly) History of abdominal paracentesis (Chronic 09/06/18) History of GI bleed (Chronic) History of non-ST elevation myocardial infarction (NSTEMI) (Chronic 07/05/16) Atherosclerotic heart disease of [place] coronary artery without angina pectoris (Chronic) Stented coronary artery (Chronic) Cutting Balloon and TAMI (3.0X18 mm Xience) Proximal LAD 04/18/2012; Rotational atherectomy to proximal, id and distal RCA with two overlapping 4.0 X 38 Synergy TAMI ([facility] main) Hypervolemia (Chronic) Ascites (Chronic) Pancytopenia (Chronic) Other specified peripheral vascular diseases (Chronic) Afib (Chronic) Congenital coronary artery anomaly (Chronic) Bradycardia (Chronic) CAD (coronary artery disease) (Chronic) Diabetes mellitus, type II (Chronic) Hyperlipidemia (Chronic) Hypothyroidism (Chronic) Anemia in chronic kidney disease (Chronic) Hypertension (Chronic) End stage renal disease on dialysis (Chronic) Medical History: Medical History (Last Reviewed 01/16/19 @ 10:00 by Louise Donnelly) History of GI bleed (Chronic) Z87.19 History of non-ST elevation myocardial infarction (NSTEMI) (Chronic) Onset Date: 07/05/16 I25.2 Atherosclerotic heart disease of [place] coronary artery without angina pectoris (Chronic) I25.10 Ascites (Chronic) R18.8 Pancytopenia (Chronic) D61.818 Other specified peripheral vascular diseases (Chronic) I73.89 Afib (Chronic) I48.91 Congenital coronary artery anomaly (Chronic) Q24.5 Bradycardia (Chronic) R00.1 CAD (coronary artery disease) (Chronic) I25.10 Diabetes mellitus, type II (Chronic) E11.9 Hyperlipidemia (Chronic) E78.5 Hypothyroidism (Chronic) E03.9 Anemia in chronic kidney disease (Chronic) N18.9, D63.1 Hypertension (Chronic) I10 End stage renal disease on dialysis (Chronic) N18.6, 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 --18 History of hysterectomy Z90.710 Skin cancer C44.90 mouth/lip 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 [Ecotrin] 81 mg PO DAILY@0800 #1 02/14/18 Carvedilol 12.5 mg PO BID 05/10/18 Insulin Lispro [Humalog] See Protocol SC TIDCM 05/10/18 Clopidogrel Bisulfate [Plavix] 75 mg PO DAILY 05/31/18 Insulin Glargine [Lantus SoloStar 22 units SC QHS 05/31/18 Pen] Oxycodone HCl/Acetaminophen 1 tablet PO Q6H PRN PRN 05/31/18 [Percocet 7.5-325 mg Tablet] Cyclobenzaprine HCl 5 mg PO BID 06/11/18 B Complex W-C No.20/Folic Acid 1 mg PO UD 09/20/18 [Virt-Caps Softgel] Isosorbide Mononitrate 90 mg PO BREAKFAST 09/20/18 proMETHazine tablet [Phenergan 12.5 mg PO DAILY PRN PRN 09/20/18 tablet] Docusate Sodium [Colace] 100 mg PO DAILY 02/13/19 Gabapentin [Neurontin] 100 mg PO BID 02/13/19 Gabapentin [Neurontin] 200 mg PO QHS 02/13/19 Hydralazine HCl 100 mg PO BID 02/13/19 Isosorbide Mononitrate [Imdur] 60 mg PO QHS 02/13/19 Ropinirole HCl [Requip] 0.25 mg PO QHS 02/13/19 Sevelamer Carbonate [Renvela] 3,200 mg PO UD 02/13/19 Surgical History: Surgical History (Last Reviewed 02/13/19 @ 17:10 by AYDIN Funez) History of abdominal paracentesis (Chronic) Onset Date: 09/06/18 Z98.890 Stented coronary artery (Chronic) Z95.5 Cutting Balloon and TAMI (3.0X18 mm Xience) Proximal LAD 04/18/2012; Rotational atherectomy to proximal, id and distal RCA with two overlapping 4.0 X 38 Synergy TAMI ([facility] main) History of back surgery Z98.890 LATE 70'S History of colectomy Z90.49 History of laparoscopic cholecystectomy Z90.49 History of total right knee replacement Z96.651 Hx of foot surgery Z98.890 S/P left rotator cuff repair Z98.890 history left A-V fistula Surgical History: cholecystectomy, total knee arthroplasty, - - Left upper extremity fistula, cholecystectomy, back surgery, colon resection with history of diverticulitis, hysterectomy, appendectomy, right knee surgery, right total knee replacement, right foot surgery, left knee surgery, left foot surgery, PCI. Psychiatric History: No pertinent psych hx CLAIM PROFESSIONAL History: No pertinent CLAIM PROFESSIONAL history Lives: Spouse/ Significant Other Smoking Status: Former smoker Alcohol: None Drugs: None - *Family History Maternal Family History: Family History (Last Reviewed 02/13/19 @ 17:11 by AYDIN Funez) Sister Diabetes Heart disease Hypertension Anemia History Items: Cancer - uterine Paternal Family History: Family History (Last Reviewed 02/13/19 @ 17:11 by AYDIN Funez) Sister Diabetes Heart disease Hypertension Anemia History Items: Cancer Sibling Family History: Family History (Last Reviewed 02/13/19 @ 17:11 by AYDIN Funez) Sister Diabetes Heart disease Hypertension Anemia History Items: Diabetes Review of Systems Constitutional: Denies: Chills, Fever, Weight Change HEENT: Denies: Head Aches, Sinus Congestion, Sinus Drainage Cardiovascular: Reports: Chest Pain. Denies: Edema, Light Headedness, Palpitations, Syncope Respiratory: Reports: Shortness of Breath - Associated with chest pain. Denies: Cough, Shortness of breath at rest, Sputum production Gastrointestinal: Reports: - - Chronic ascites. Denies: Abdominal Pain, Diarrhea, Nausea, Vomiting Genitourinary: Denies: Dysuria Musculoskeletal: Denies: Joint Pain, Joint Tenderness Skin: Denies: Rash, Wounds Neurological: Denies: Numbness, Tingling, Focal weakness Psychiatric: Denies: Anxiety, Depression, Homicidal Ideations, Suicidal Ideations Hematologic/ Lymphatic: Denies: Easy Bruising, Easy Bleeding VTE Information - Inpt Only VTE Present on Admission: No VTE Mechan Device Prophylaxis: None VTE Pharm Prophylaxis ordered?: Yes - Physical Exam General: Alert, Oriented x3, Cooperative HEENT: Atraumatic, PERRLA, EOMI, Normocephalic Oral: Dry Mucosa Neck: Supple, No JVD, Negative Carotid Bruits Lungs: Clear to auscultation, Diminished Cardiovascular: - - Atrial fibrillation, rate controlled Abdomen: Bowel Sounds Present, Soft, Non Tender, Obese, - - Ascites Extremities: No clubbing, No cyanosis, Capillary Refill Less than 3 Seconds, Edema - +1-2 bilateral lower extremities Skin: - - Chronic skin changes bilateral lower extremities with left lower extremity abrasion. Musculoskeletal: No Tenderness to Palpation of Joints or Extremities Neurological: Cranial nerves II-XII grossly intact, Neuro grossly intact Psych/Mental Status: Normal Affect, Appropriate Vital Signs Temp Pulse Resp BP Pulse Ox 97.9 F 71 18 143/64 H 97 02/13/19 15:08 02/13/19 16:57 02/13/19 16:54 02/13/19 16:57 02/13/19 16:54 Oxygen Delivery Method Room Air Weight: 200 lb Body Mass Index (BMI) 33.3 Finger Stick Blood Glucose 99 Laboratory Tests Past 24 Hrs 02/13/19 02/13/19 15:58 15:58 WBC 4.1 L RBC 3.38 L Hgb 10.0 L Hct 33.0 L MCV 97.6 MCH 29.6 MCHC 30.3 L RDW Std Deviation 59.1 H RDW Coeff of [place] 17.1 H Plt Count 122 L MPV 10.6 Immature Gran % (Auto) 0.500 Neut % (Auto) 57.7 Lymph % (Auto) 22.2 [place] % (Auto) 12.6 H Eos % (Auto) 6.0 H Baso % (Auto) 1.0 Absolute Neuts (auto) 2.4 Absolute Lymphs (auto) 0.92 Nucleated RBC % 0 Sodium 129 L Potassium 4.6 Chloride 92 L Carbon Dioxide 30.0 Anion Gap 7 BUN 25 H Creatinine 3.76 H Estim Creat Clear Calc 11.45 Est GFR (MDRD) Af Amer 15 L Est GFR (MDRD) Non-Af 12 L BUN/Creatinine Ratio 6.6 L Glucose 234 H Calcium 9.0 Troponin I 0.023 Assessment/Plan 1. Chest pain with history of CAD status post angioplasty and stenting to LAD- follows with Dr. Frye. Initial troponin negative. EKG without ST-T changes. Trend enzymes. Patient had heart cath in 2017 which showed patent LAD stents, 100% occluded or subtotally occluded distal left circumflex artery with collaterals. Severely calcified proximal, mid and distal RCA and severe progression of previously mentioned lesions in the proximal, mid and distal RCA. Transferred to [facility] for evaluation at that time for further evaluation. Given this past history, will consult cardiology for recommendation on further cardiac evaluation. 2. ESRD on hemodialysis-consult nephrology. On Sunday, Sunday, Sunday dialysis regimen. Left upper extremity AV fistula. 3. Chronic ascites with recurrent paracentesis-patient underwent ultrasound guided paracentesis today, 02/13/2019 with 4250ml fluid removed. 4. Type 2 diabetes [id number] ACHS with sliding scale insulin. Continue home Lantus regimen. 5. Hypertension-stable, continue home carvedilol, hydralazine, isosorbide, losartan. 6. Hyperlipidemia-continue statin. 7. Chronic pancytopenia-stable, follows with oncology/hematology as outpatient. 8. Hypothyroidism-continue Synthroid regimen. 9. Chronic atrial fibrillation-rate controlled. Reports she was previously on a blood thinner which she has not been taking for the past month. Her home med list does not include any oral anticoagulation? DVT prophylaxis- heparin sc This patient was seen by AYDIN Funez under the supervision of Dr. Benavidez. <Cheyenne Benavidez - Last Filed: 02/13/19 17:58> History of Present Illness The patient is a 74 year old F [] Past Medical History Medical History: Medical History (Last Reviewed 01/16/19 @ 10:00 by Louise Donnelly) History of GI bleed (Chronic) Z87.19 History of non-ST elevation myocardial infarction (NSTEMI) (Chronic) Onset Date: 07/05/16 I25.2 Atherosclerotic heart disease of [place] coronary artery without angina pectoris (Chronic) I25.10 Ascites (Chronic) R18.8 Pancytopenia (Chronic) D61.818 Other specified peripheral vascular diseases (Chronic) I73.89 Afib (Chronic) I48.91 Congenital coronary artery anomaly (Chronic) Q24.5 Bradycardia (Chronic) R00.1 CAD (coronary artery disease) (Chronic) I25.10 Diabetes mellitus, type II (Chronic) E11.9 Hyperlipidemia (Chronic) E78.5 Hypothyroidism (Chronic) E03.9 Anemia in chronic kidney disease (Chronic) N18.9, D63.1 Hypertension (Chronic) I10 End stage renal disease on dialysis (Chronic) N18.6, 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 History of hysterectomy Z90.710 Skin cancer C44.90 mouth/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, 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 Allergies lisinopril Allergy (Severe, Verified 02/13/19 15:07) Angioedema nebivolol HCl [From [facility]] Adverse Reaction (Severe, Verified 02/13/19 15:07) bradycardia BRADYCARDIA Surgical History: Surgical History (Last Reviewed 02/13/19 @ 17:10 by AYDIN Funez) History of abdominal paracentesis (Chronic) Onset Date: 09/06/18 Z98.890 Stented coronary artery (Chronic) Z95.5 Cutting Balloon and TAMI (3.0X18 mm Xience) Proximal LAD 04/18/2012; Rotational atherectomy to proximal, id and distal RCA with two overlapping 4.0 X 38 Synergy TAMI ([facility] main) History of back surgery Z98.890 LATE 70'S History of colectomy Z90.49 History of laparoscopic cholecystectomy Z90.49 History of total right knee replacement Z96.651 Hx of foot surgery Z98.890 S/P left rotator cuff repair Z98.890 history left A-V fistula - *Family History Maternal Family History: Family History (Last Reviewed 02/13/19 @ 17:11 by AYDIN Funez) Sister Diabetes Heart disease Hypertension Anemia Paternal Family History: Family History (Last Reviewed 02/13/19 @ 17:11 by AYDIN Funez) Sister Diabetes Heart disease Hypertension Anemia Sibling Family History: Family History (Last Reviewed 02/13/19 @ 17:11 by AYDIN Funez) Sister Diabetes Heart disease Hypertension Anemia - Physical Exam Vital Signs Temp Pulse Resp BP Pulse Ox 97.9 F 79 18 179/67 H 97 02/13/19 15:08 02/13/19 17:12 02/13/19 16:54 02/13/19 17:12 02/13/19 16:54 Oxygen Delivery Method Room Air Weight: 200 lb Body Mass Index (BMI) 33.3 Finger Stick Blood Glucose 99 Laboratory Tests Past 24 Hrs 02/13/19 02/13/19 15:58 15:58 WBC 4.1 L RBC 3.38 L Hgb 10.0 L Hct 33.0 L MCV 97.6 MCH 29.6 MCHC 30.3 L RDW Std Deviation 59.1 H RDW Coeff of [place] 17.1 H Plt Count 122 L MPV 10.6 Immature Gran % (Auto) 0.500 Neut % (Auto) 57.7 Lymph % (Auto) 22.2 [place] % (Auto) 12.6 H Eos % (Auto) 6.0 H Baso % (Auto) 1.0 Absolute Neuts (auto) 2.4 Absolute Lymphs (auto) 0.92 Nucleated RBC % 0 Sodium 129 L Potassium 4.6 Chloride 92 L Carbon Dioxide 30.0 Anion Gap 7 BUN 25 H Creatinine 3.76 H Estim Creat Clear Calc 11.45 Est GFR (MDRD) Af Amer 15 L Est GFR (MDRD) Non-Af 12 L BUN/Creatinine Ratio 6.6 L Glucose 234 H Calcium 9.0 Troponin I 0.023 Assessment/Plan Patient seen by Ines PERRIN under my supervision Patient is a 74-year-old female with past medical history as listed. She was admitted to the ED on 02/13/2019 with a complaint of chest pain. Chest pain was retrosternal and started while she was having paracentesis which she regularly has at least once a month for cirrhosis. She had associated shortness of breath but denied any dizziness, lightheadedness, nausea or vomiting. In the ED initial troponin was negative and EKG showed no acute ST changes. She has been admitted to be managed for chest pain rule out ACS. o/e: Vital Signs Height 5 ft 5 in Weight: 200 lb Weight in Pounds 200.0 lbs BMI 27.1 Pulse Ox 97 Temperature 97.9 F Pulse Rate 79 Respiratory Rate 18 Blood Pressure 179/67 General: Alert, Oriented x3, Cooperative HEENT: Atraumatic, PERRLA, EOMI, Normocephalic Oral: Dry Mucosa Neck: Supple, No JVD, Negative Carotid Bruits Lungs: Clear to auscultation, Diminished Cardiovascular: - - Atrial fibrillation, rate controlled Abdomen: Bowel Sounds Present, Soft, Non Tender, Obese,positive fluid thrill Extremities: No clubbing, No cyanosis, Capillary Refill Less than 3 Seconds, Edema - +1-2 bilateral lower extremities Skin: - - superficial excoriations on LEs Musculoskeletal: Mild tenderness on palpation of chest. Neurological: Cranial nerves II-XII grossly intact, Neuro grossly intact Psych/Mental Status: Normal Affect, Appropriate Chest pain does appear to be musculoskeletal she has tenderness with palpation of chest muscles. However will still need to rule out ACS on account of her history of stents. Plan is to cycle troponins. If troponins remain negative, till stress test tomorrow. Consult nephrology for dialysis tomorrow if patient remains in the hospital. Rest of management as per Ines Lorenz NP-C's notes which I reviewed and endorsed. Code Visit OBSV E&M: [id number] Initial observation care L2
--- NOTE | 2019-02-13 17:04 | NURSING ---
PER DR VILLAGOMEZ, HOLD PRN NITRO AT THIS TIME. NITRO PATCH ADMINISTERED.
--- NOTE | 2019-02-13 17:51 | EKG12_ITS ---
Test Reason : CP ADMIT Blood Pressure : / mmHG Vent. Rate : 075 BPM Atrial Rate : 076 BPM P-R Int : 000 ms QRS Dur : 100 ms QT Int : 414 ms P-R-T Axes : 000 033 044 degrees QTc Int : 462 ms Atrial fibrillation Abnormal ECG When compared with ECG of 13-FEB-2019 16:18, MANUAL COMPARISON REQUIRED, DATA IS UNCONFIRMED Confirmed by KENRICK NEWMAN, LLOYD ([id number]), industrial editor ÁNGEL CALDERON ([id number]) on 02/25/2019 10:37:28 AM Referred By: Cheyenne Benavidez Confirmed By:TIFFANIE CHOUDHARY MD
[2019-02-13 18:30] LABS: Bedside Glucose 192 mg/dL (70-110)
[2019-02-13] MEDS: oxyCODONE 5 MG Tablet PO ×2 (18:49→22:55)
[2019-02-13] MEDS: hydrALAZINE 20 MG/ML Vial 10 MG IV (18:49)
[2019-02-13] MEDS: Insulin Lispro 100 UNIT/ML INSULN.PEN SC (18:50)
--- NOTE | 2019-02-13 22:43 | EKG12_ITS ---
Test Reason : CP Blood Pressure : / mmHG Vent. Rate : 075 BPM Atrial Rate : 075 BPM P-R Int : 266 ms QRS Dur : 100 ms QT Int : 408 ms P-R-T Axes : 042 045 092 degrees QTc Int : 455 ms Sinus rhythm with sinus arrhythmia with 1st degree A-V block Nonspecific T wave abnormality Abnormal ECG When compared with ECG of 13-FEB-2019 18:00, MANUAL COMPARISON REQUIRED, DATA IS UNCONFIRMED Confirmed by KENRICK NEWMAN, LLOYD ([id number]), copy editor ÁNGEL CALDERON ([id number]) on 02/25/2019 10:37:44 AM Referred By: Cheyenne Benavidez Confirmed By:TIFFANIE CHOUDHARY MD
[2019-02-13] MEDS: Carvedilol 12.5 MG Tablet PO (22:52)
[2019-02-13] MEDS: hydrALAZINE 50 MG Tablet 100 MG PO (22:52)
[2019-02-13] MEDS: Losartan Potassium 50 MG Tablet PO (22:52)
[2019-02-13] MEDS: cycloBENZAPRine HCl 5 MG TABLET PO (22:53)
[2019-02-13] MEDS: Atorvastatin Calcium 80 MG Tablet PO (22:53)
[2019-02-13] MEDS: Isosorbide Mononitrate 60 MG Tablet PO (22:53)
[2019-02-13] MEDS: Gabapentin 100 MG Capsule 200 MG PO (22:54)
[2019-02-13] MEDS: Pramipexole Di-HCl 0.125 MG Tablet PO (23:11)
[2019-02-13] MEDS: Glucerna Shake 120 ML LIQUID PO (23:13)
[2019-02-13] MEDS: MELATONIN 3 MG TABLET PO (23:56)
[2019-02-13] MEDS: Hydrocortisone 2.5% Crm 1 APPLIC TOPICAL (23:57)
[2019-02-14] VITALS (18 sets, daily range): BP systolic 90–142; BP diastolic 38–57; PULSE 63–81; RESP 12–18; TEMP 36.1–37.7; O2SAT 89–100
[2019-02-14 00:16] LABS: Bedside Glucose 109 mg/dL (70-110)
--- NOTE | 2019-02-14 05:55 | EKG12_ITS ---
Test Reason : AM EKG Blood Pressure : / mmHG Vent. Rate : 067 BPM Atrial Rate : 441 BPM P-R Int : 000 ms QRS Dur : 094 ms QT Int : 452 ms P-R-T Axes : 000 036 139 degrees QTc Int : 477 ms Accelerated Junctional rhythm Nonspecific T wave abnormality Prolonged QT Abnormal ECG When compared with ECG of 13-FEB-2019 23:02, MANUAL COMPARISON REQUIRED, DATA IS UNCONFIRMED Confirmed by KENRICK NEWMAN, LLOYD ([id number]), rewrite editor ÁNGEL CALDERON ([id number]) on 02/25/2019 10:38:39 AM Referred By: Cheyenne Benavidez Confirmed By:TIFFANIE CHOUDHARY MD
[2019-02-14 05:58] LABS: Absolute Lymphocyte Count 1.44 X10^3/uL (0.83-4.51); Absolute Neutrophil Count 2.5 X10^3/uL (2.0-7.7); Basophil# 0.06 X10^3/uL; Basophil% 1.2 % (0-1); Eosinophil# 0.32 X10^3/uL; Eosinophils% 6.5 % (0-5); Hematocrit 30.9 % (37-47); Hemoglobin 9.7 g/dL (12.0-15.0); Lymphocyte # 1.44 X10^3/ul (4.0); Lymphocyte % 29.4 % (19-41); Mean Corp Hgb Conc 31.4 g/dL (32-36); Mean Corpuscular Volume 95.7 fL (81-99); Mean Platelet Vol. 9.6 fl (6.2-12.0); Monocyte# 0.53 X10^3/uL; Monocyte% 10.8 % (0-10); NRBC Flagged by Analyzer 0 % (0-5); Neutrophil # 2.52 X10^3/uL (2.7-7.7); Neutrophil % 51.7 % (47-70); POSITIVE MORPHOLOGY YES; Platelet Count 110 K/mm3 (150-450); RBC Distribution Width CV 16.9 % (11.6-14.6); Red Blood Count 3.23 M/mm3 (4.2-5.4); White Blood Count 4.9 K/mm3 (4.4-11.0)
[2019-02-14] MEDS: oxyCODONE 5 MG Tablet PO ×3 (06:03→23:50)
[2019-02-14] MEDS: hydrALAZINE 50 MG Tablet 100 MG PO ×2 (06:04→21:31)
[2019-02-14] MEDS: Clopidogrel Bisulfate 75 MG Tablet PO (06:04)
[2019-02-14] MEDS: Losartan Potassium 50 MG Tablet PO ×2 (06:04→21:31)
[2019-02-14] MEDS: Aspirin E.C. 81 MG Tablet PO (06:06)
[2019-02-14 06:07] LABS: Differential Indicated SCAN CRITERIA MET
[2019-02-14 06:10] LABS: Anion Gap 9 (5-15); BUN 30 mg/dL (7-18); BUN/Creat Ratio 7.2 RATIO (10-20); Calcium,Total 8.2 mg/dL (8.5-10.1); Chloride 95 mmol/L (98-107); Creatinine, Serum 4.14 mg/dL (0.55-1.02); EST Glomerular Filtration Rate 11 mL/min (>60); Est Glom Filt Rate - Afr Amer 14 mL/min (>60); Glucose 113 mg/dL (74-106); Sodium Level 132 mmol/L (136-145)
[2019-02-14 07:01] LABS: Bedside Glucose 113 mg/dL (70-110)
--- NOTE | 2019-02-14 08:39 | OT ---
Reviewed with patient during eval BUE strengthening exercises to complete to shoulders, biceps, triceps, and chest region to improve strength, ROM, and endurance. Patient demonstrated understanding of task. If pain occurs was educated to stop exercise.
[2019-02-14] MEDS: Ondansetron 4 MG/2 ML Vial IV (10:28)
--- NOTE | 2019-02-14 10:53 | RAD_ITS ---
STUDY: X-RAY - RIGHT WRIST REASON FOR EXAM: Female, 74 years old. Pain TECHNIQUE: 2 view(s) of the wrist were obtained. COMPARISON: None. FINDINGS: There is demineralization of the radius and ulna. There mild degenerative changes of the radiocarpal articulation. Normal distal radioulnar articulation. There are degenerative changes of the greater multangular. Normal carpal articulations. There are degenerative changes of the first metacarpal greater multangular joint. Normal second through fifth carpometacarpal articulations. Normal visualized metacarpal bones. Arterial calcifications are seen in the forearm, wrist, and hand. RAD/Wrist 2 Views IMPRESSION: Generalized osteopenia. Degenerative changes as detailed above. Arterial calcifications noted in the distal forearm, wrist, and hand. There is no evidence of fracture or dislocation. Electronically Signed: Phillip Roy MD at 18:22 EDT , Service support ,
--- NOTE | 2019-02-14 10:54 | PN_ITS ---
Subjective: CC: Chest pain Patient is a 74-year-old lady sent to the emergency department with generalized aches as well as swelling involving lower extremities. She also did complain of chest pain placed on a monitored bed for subsequent management Objective: GENERAL: Patient seen having dialysis HEENT: Atraumatic; EYES; Anicteric, Normal Conjunctiva NECK; supple, normal thyroid, RESPIRATORY: Diminished to auscultation bilaterally, CARDIOVASCULAR: Regular S1 S2, GI: soft, non-tender, normoactive bowel sounds, : No Renal angle tenderness; EXTREMITIES: No edema, no clubbing, MUSCULOSKELETAL: No muscle waisting NEURO: Awake; no lateralizing signs. SKIN: No Rash PSYCH; tearful complaining of right wrist pain Vitals/I&O's: Vital Signs Temp Pulse Resp BP Pulse Ox 97.9 F 66 14 111/50 L 93 02/14/19 05:56 02/14/19 07:14 02/14/19 05:56 02/14/19 05:56 02/14/19 05:56 Oxygen Delivery Method Room Air Weight: 84.5 kg Body Mass Index (BMI) 30.9 Finger Stick Blood Glucose 99 Intake and Output for Last 24 Hours 02/12/19 02/13/19 02/14/19 23:59 23:59 23:59 Intake Total 290 / 290 0 / 0 Output Total 0 / 0 0 / 0 Balance 290 / 290 0 / 0 Laboratory Results 02/13/19 15:58: WBC 4.1 L, RBC 3.38 L, Hgb 10.0 L, Hct 33.0 L, MCV 97.6, MCH 29.6, MCHC 30.3 L, RDW Std Deviation 59.1 H, RDW Coeff of Susan 17.1 H, Plt Count 122 L, MPV 10.6, Immature Gran % (Auto) 0.500, Neut % (Auto) 57.7, Lymph % (Auto) 22.2, Gilchrist % (Auto) 12.6 H, Eos % (Auto) 6.0 H, Baso % (Auto) 1.0, Absolute Neuts (auto) 2.4, Absolute Lymphs (auto) 0.92, Nucleated RBC % 0 02/13/19 15:58: Sodium 129 L, Potassium 4.6, Chloride 92 L, Carbon Dioxide 30.0, Anion Gap 7, BUN 25 H, Creatinine 3.76 H, Estim Creat Clear Calc 11.45, Est GFR (MDRD) Af Amer 15 L, Est GFR (MDRD) Non-Af 12 L, BUN/Creatinine Ratio 6.6 L, Glucose 234 H, Calcium 9.0, Troponin I 0.023 02/13/19 18:23: POC Glucose 192 H 02/13/19 19:15: Troponin I 0.024 02/13/19 22:30: Troponin I 0.024 02/13/19 22:45: POC Glucose 109 02/14/19 05:28: Sodium 132 L, Potassium 5.0, Chloride 95 L, Carbon Dioxide 28.0, Anion Gap 9, BUN 30 H, Creatinine 4.14 H, Estim Creat Clear Calc 10.40, Est GFR (MDRD) Af Amer 14 L, Est GFR (MDRD) Non-Af 11 L, BUN/Creatinine Ratio 7.2 L, Glucose 113 H, Calcium 8.2 L 02/14/19 05:28: WBC 4.9, RBC 3.23 L, Hgb 9.7 L, Hct 30.9 L, MCV 95.7, MCH 30.0, MCHC 31.4 L, RDW Std Deviation 57.0 H, RDW Coeff of Susan 16.9 H, Plt Count 110 L, MPV 9.6, Immature Gran % (Auto) 0.400, Neut % (Auto) 51.7, Lymph % (Auto) 29.4, Gilchrist % (Auto) 10.8 H, Eos % (Auto) 6.5 H, Baso % (Auto) 1.2 H, Absolute Neuts (auto) 2.5, Absolute Lymphs (auto) 1.44, Nucleated RBC % 0 02/14/19 06:53: POC Glucose 113 H Current Medications Acetaminophen (Tylenol) 650 mg PO Q6H PRN PRN PRN Reason: Mild pain 1-3/Temp > 100.7 F Albuterol Sulfate (Ventolin Aerosols) 2.5 mg INHALATION Q2H PRN PRN PRN Reason: SOB/Wheezing Aspirin (Ecotrin) 81 mg PO DAILY@0800 [facility] Last Admin: 02/14/19 06:06 Dose: 81 mg Documented by: Atorvastatin Calcium (Lipitor) 80 mg PO QHS [facility] Last Admin: 02/13/19 22:53 Dose: 80 mg Documented by: Carvedilol (Coreg) 12.5 mg PO BID [facility] Last Admin: 02/13/19 22:52 Dose: 12.5 mg Documented by: Clopidogrel Bisulfate (Plavix) 75 mg PO DAILY [facility] Last Admin: 02/14/19 06:04 Dose: 75 mg Documented by: Cyclobenzaprine HCl (Cyclobenzaprine Hcl) 5 mg PO BID [facility] Last Admin: 02/13/19 22:53 Dose: 5 mg Documented by: Dextrose (D50w Syringe) 0 gm IV X1 PRN; Protocol PRN Reason: Hypoglycemia Docusate Sodium (Colace) 100 mg PO DAILY [facility] Gabapentin (Neurontin) 200 mg PO QHS [facility] Last Admin: 02/13/19 22:54 Dose: 200 mg Documented by: Glucagon () 1 mg IM .X1 PRN PRN Reason: Hypoglycemia Heparin Sodium (Porcine) (Heparin Na) 5,000 unit SC Q12 [facility] Last Admin: 02/13/19 22:53 Dose: Not Given Documented by: Hydralazine HCl (Apresoline) 100 mg PO BID [facility] Last Admin: 02/14/19 06:04 Dose: 100 mg Documented by: Hydrocortisone (Hytone) 1 applic TOPICAL BID PRN PRN; Protocol PRN Reason: ITCHING Last Admin: 02/13/19 23:57 Dose: 1 applicatio Documented by: Insulin Glargine (Lantus (Bk)) 22 units SC QHS [facility] Last Admin: 02/13/19 22:47 Dose: Not Given Documented by: Insulin Human Lispro (Humalog Kwikpen (Bk)) 0 unit SC [facility]; Protocol Last Admin: 02/13/19 23:45 Dose: Not Given Documented by: Isosorbide Mononitrate (Imdur) 60 mg PO QHS [facility] Last Admin: 02/13/19 22:53 Dose: 60 mg Documented by: Isosorbide Mononitrate (Imdur) 90 mg PO BREAKFAST [facility] Ketorolac Tromethamine (Toradol) 15 mg IV X1 ONE Stop: 02/14/19 10:54 Losartan Potassium (Cozaar) 50 mg PO BID [facility] Last Admin: 02/14/19 06:04 Dose: 50 mg Documented by: Multivit/Ca Carb/B Cmplx/FA/Prenat (Nephrocaps, Renaphro) 1 capsule PO DAILY [facility] Nitroglycerin (Nitrostat) 0.4 mg SUBLINGUAL Q5M PRN PRN Reason: CARDIAC/CHEST PAIN Nutritional Formula (Lactose Free) (Glucerna Shake) 120 ml PO 4X/DAY [facility] Last Admin: 02/13/19 23:13 Dose: 120 ml Documented by: Ondansetron HCl (Zofran) 4 mg IV Q8H PRN PRN PRN Reason: NAUSEA/VOMITING Last Admin: 02/14/19 10:28 Dose: 4 mg Documented by: Oxycodone HCl (Oxyir) 5 mg PO Q4H PRN PRN PRN Reason: Moderate Pain (4-6/10) Last Admin: 02/14/19 10:32 Dose: 5 mg Documented by: Pantoprazole Sodium (Protonix) 40 mg PO DAILY [facility] Pramipexole Dihydrochloride (Mirapex) 0.125 mg PO QHS [facility] Last Admin: 02/13/19 23:11 Dose: 0.125 mg Documented by: Sevelamer Carbonate (Renvela) 800 - 3,200 mg PO ACHS [facility] Medical Necessity - Tobacco Use Smoking Status: Former smoker Assessment/Plan Patient is a 74-year-old lady sent to the emergency department with generalized aches as well as swelling involving lower extremities. She also did complain of chest pain placed on a monitored bed for subsequent management 1. Chest pain ~Patient has significant risk factors including previous angioplasty and stenting to LAD. Admitted to a monitored bed serial cardiac enzymes ordered with plans for patient to undergo stress test once ID has been ruled out 2. End-stage renal disease ~patient is on hemodialysis consultation placed to nephrology (Dr. Crawley) for dialysis orders 3. Right wrist pain ~Undetermined etiology ordered gout as well as plain x-rays patient medicated 4. Diabetes mellitus type 2 ~with complications including end-stage renal disease. Patient is on insulin did continue with home regimen also placed on Accu-Cheks before meals and at bedtime and cover with sliding scale insulin 5. Hypertension ~ blood pressure controlled, home medications continued with dose adjustment as needed 6. Hypothyroidism ~patient is on levothyroxine home dose continued 7. Dyslipidemia ~patient is on statin therapy, continued at home dose 8. Coronary artery disease ~With previous angioplasty and stenting to LAD 9. Paroxysmal A. fib ~Controlled previously on systemic anticoagulation which was not listed on her home meds 10. DVT prophylaxis ~SC heparin Code Visit OBSV E&M: [id number] Subsequent observation care L3
[2019-02-14 11:24] LABS: Uric Acid 3.5 mg/dL (2.6-6.0)
[2019-02-14 11:25] LABS: Bedside Glucose 98 mg/dL (70-110)
[2019-02-14] MEDS: Ketorolac 15 MG/ML Vial IV (11:28)
--- NOTE | 2019-02-14 11:30 | CON.PCM_ITS ---
Consultation - Renal 02/14/19 PCP/ Referring MD: Requesting physician: [] Primary care physician: Davy Coleman MD Reason for Consultation:: ESRD HD MWF - History of Present Illness History of Present Illness: The patient is a 74 year old F with ESRD due to diabetes on HD MWF admitted from ER for chest pain. She underwent paracentesis for chronic ascites as outpt. RN at radiology sent her to ER for leg swelling with weaping. She developed chest pain while in ED. She has a history of CAD, HTN, diabetes, cirrhosis with ascites, thrombocytopenia. She has a history of high fluid gains. LE edema is significantly improved from baseline. She received IUF as outpt on Sunday then paracentesis yesterday. She is currently receiving dialysis. BP low. She is complaining of right arm/wrist pain. She is ordered toradol by primary service and uric acid level. - Allergies Allergies: Allergies lisinopril Allergy (Severe, Verified 02/13/19 15:07) Angioedema nebivolol HCl [[facility]] Adverse Reaction (Severe, Verified 02/13/19 15:07) bradycardia BRADYCARDIA - Current Medications Current Medications: Current Medications Acetaminophen (Tylenol) 650 mg PO Q6H PRN PRN PRN Reason: Mild pain 1-3/Temp > 100.7 F Albuterol Sulfate (Ventolin Aerosols) 2.5 mg INHALATION Q2H PRN PRN PRN Reason: SOB/Wheezing Aspirin (Ecotrin) 81 mg PO DAILY@0800 [facility] Last Admin: 02/14/19 06:06 Dose: 81 mg Documented by: Atorvastatin Calcium (Lipitor) 80 mg PO QHS [facility] Last Admin: 02/13/19 22:53 Dose: 80 mg Documented by: Carvedilol (Coreg) 12.5 mg PO BID [facility] Last Admin: 02/13/19 22:52 Dose: 12.5 mg Documented by: Clopidogrel Bisulfate (Plavix) 75 mg PO DAILY [facility] Last Admin: 02/14/19 06:04 Dose: 75 mg Documented by: Cyclobenzaprine HCl (Cyclobenzaprine Hcl) 5 mg PO BID [facility] Last Admin: 02/13/19 22:53 Dose: 5 mg Documented by: Dextrose (D50w Syringe) 0 gm IV X1 PRN; Protocol PRN Reason: Hypoglycemia Docusate Sodium (Colace) 100 mg PO DAILY [facility] Gabapentin (Neurontin) 200 mg PO QHS [facility] Last Admin: 02/13/19 22:54 Dose: 200 mg Documented by: Glucagon () 1 mg IM .X1 PRN PRN Reason: Hypoglycemia Heparin Sodium (Porcine) (Heparin Na) 5,000 unit SC Q12 [facility] Last Admin: 02/13/19 22:53 Dose: Not Given Documented by: Hydralazine HCl (Apresoline) 100 mg PO BID [facility] Last Admin: 02/14/19 06:04 Dose: 100 mg Documented by: Hydrocortisone (Hytone) 1 applic TOPICAL BID PRN PRN; Protocol PRN Reason: ITCHING Last Admin: 02/13/19 23:57 Dose: 1 applicatio Documented by: Insulin Glargine (Lantus ([facility])) 22 units SC QHS [facility] Last Admin: 02/13/19 22:47 Dose: Not Given Documented by: Insulin Human Lispro (Humalog Kwikpen ([facility])) 0 unit SC ACHS [facility]; Protocol Last Admin: 02/13/19 23:45 Dose: Not Given Documented by: Isosorbide Mononitrate (Imdur) 60 mg PO QHS [facility] Last Admin: 02/13/19 22:53 Dose: 60 mg Documented by: Isosorbide Mononitrate (Imdur) 90 mg PO BREAKFAST [facility] Losartan Potassium (Cozaar) 50 mg PO BID [facility] Last Admin: 02/14/19 06:04 Dose: 50 mg Documented by: Multivit/Ca Carb/B Cmplx/FA/Prenat (Nephrocaps, Renaphro) 1 capsule PO DAILY [facility] Nitroglycerin (Nitrostat) 0.4 mg SUBLINGUAL Q5M PRN PRN Reason: CARDIAC/CHEST PAIN Nutritional Formula (Lactose Free) (Glucerna Shake) 120 ml PO 4X/DAY [facility] Last Admin: 02/13/19 23:13 Dose: 120 ml Documented by: Ondansetron HCl (Zofran) 4 mg IV Q8H PRN PRN PRN Reason: NAUSEA/VOMITING Last Admin: 02/14/19 10:28 Dose: 4 mg Documented by: Oxycodone HCl (Oxyir) 5 mg PO Q4H PRN PRN PRN Reason: Moderate Pain (4-6/10) Last Admin: 02/14/19 10:32 Dose: 5 mg Documented by: Pantoprazole Sodium (Protonix) 40 mg PO DAILY [facility] Pramipexole Dihydrochloride (Mirapex) 0.125 mg PO QHS [facility] Last Admin: 02/13/19 23:11 Dose: 0.125 mg Documented by: Sevelamer Carbonate (Renvela) 800 - 3,200 mg PO ACHS [facility] - Past Medical History Past Medical History (Chronic Problems): Chronic Problems (Last Reviewed 01/16/19 @ 10:00 by Louise Donnelly) History of abdominal paracentesis (Chronic 09/06/18) History of GI bleed (Chronic) History of non-ST elevation myocardial infarction (NSTEMI) (Chronic 07/05/16) Atherosclerotic heart disease of [place] coronary artery without angina pectoris (Chronic) Stented coronary artery (Chronic) Cutting Balloon and TAMI (3.0X18 mm Xience) Proximal LAD 04/18/2012; Rotational atherectomy to proximal, id and distal RCA with two overlapping 4.0 X 38 Synergy TAMI ([facility] main) Hypervolemia (Chronic) Ascites (Chronic) Pancytopenia (Chronic) Other specified peripheral vascular diseases (Chronic) Afib (Chronic) Congenital coronary artery anomaly (Chronic) Bradycardia (Chronic) CAD (coronary artery disease) (Chronic) Diabetes mellitus, type II (Chronic) Hyperlipidemia (Chronic) Hypothyroidism (Chronic) Anemia in chronic kidney disease (Chronic) Hypertension (Chronic) End stage renal disease on dialysis (Chronic) - Past Surgical History Surgical History: appendectomy, cholecystectomy, hysterectomy, total knee arthroplasty, - - Left upper extremity fistula, back surgery, colon resection with history of diverticulitis, GI bleed, right knee surgery, right total knee replacement, right foot surgery, left knee surgery, left foot surgery, PCI. - Social History Smoking Status: Former smoker Alcohol: None Drugs: None - Family History Maternal Family History: Family History (Last Reviewed 02/13/19 @ 17:11 by AYDIN Funez) Sister Diabetes Heart disease Hypertension Anemia History Items: Cancer - uterine Paternal Family History: Family History (Last Reviewed 02/13/19 @ 17:11 by AYDIN Funez) Sister Diabetes Heart disease Hypertension Anemia History Items: Cancer Sibling Family History: Family History (Last Reviewed 02/13/19 @ 17:11 by AYDIN Funez) Sister Diabetes Heart disease Hypertension Anemia History Items: Diabetes Review of Systems Constitutional: Reports: Weakness, Fatigue Cardiovascular: Reports: Chest Pain, Edema Respiratory: Denies: Shortness of breath at rest Gastrointestinal: Reports: - - ascites s/p paracentesis. Denies: Abdominal Pain, Diarrhea, Nausea, Vomiting Genitourinary: Denies: Dysuria Skin: Denies: Rash Psychiatric: Reports: Depression Hematologic/ Lymphatic: Reports: Anemia - Physical Exam General: Alert, Oriented x3 Lungs: Clear to auscultation Cardiovascular: Regular rate Abdomen: Bowel Sounds Present, Soft, Non Tender, Non-Distended Extremities: Edema - improved Musculoskeletal: - - warm extremity, no swelling in rt arm/hand/wrist Psych/Mental Status: Alert and oriented to time, place, person, mood and affect Vital Signs Temp Pulse Resp BP Pulse Ox 97.9 F 66 14 111/50 L 93 02/14/19 05:56 02/14/19 07:14 02/14/19 05:56 02/14/19 05:56 02/14/19 05:56 Oxygen Delivery Method Room Air Weight: 84.5 kg Body Mass Index (BMI) 30.9 Finger Stick Blood Glucose 99 Intake and Output for Last 24 Hours 02/12/19 02/13/19 02/14/19 23:59 23:59 23:59 Intake Total 290 / 290 0 / 0 Output Total 0 / 0 0 / 0 Balance 290 / 290 0 / 0 Laboratory Tests Past 24 Hrs 02/13/19 02/13/19 02/13/19 15:58 15:58 19:15 WBC 4.1 L RBC 3.38 L Hgb 10.0 L Hct 33.0 L MCV 97.6 MCH 29.6 MCHC 30.3 L RDW Std Deviation 59.1 H RDW Coeff of Susan 17.1 H Plt Count 122 L MPV 10.6 Immature Gran % (Auto) 0.500 Neut % (Auto) 57.7 Lymph % (Auto) 22.2 Pike % (Auto) 12.6 H Eos % (Auto) 6.0 H Baso % (Auto) 1.0 Absolute Neuts (auto) 2.4 Absolute Lymphs (auto) 0.92 Nucleated RBC % 0 Sodium 129 L Potassium 4.6 Chloride 92 L Carbon Dioxide 30.0 Anion Gap 7 BUN 25 H Creatinine 3.76 H Estim Creat Clear Calc 11.45 Est GFR (MDRD) Af Amer 15 L Est GFR (MDRD) Non-Af 12 L BUN/Creatinine Ratio 6.6 L Glucose 234 H Uric Acid Calcium 9.0 Troponin I 0.023 0.024 02/13/19 02/14/19 02/14/19 22:30 05:28 05:28 WBC 4.9 RBC 3.23 L Hgb 9.7 L Hct 30.9 L MCV 95.7 MCH 30.0 MCHC 31.4 L RDW Std Deviation 57.0 H RDW Coeff of Susan 16.9 H Plt Count 110 L MPV 9.6 Immature Gran % (Auto) 0.400 Neut % (Auto) 51.7 Lymph % (Auto) 29.4 Pike % (Auto) 10.8 H Eos % (Auto) 6.5 H Baso % (Auto) 1.2 H Absolute Neuts (auto) 2.5 Absolute Lymphs (auto) 1.44 Nucleated RBC % 0 Sodium 132 L Potassium 5.0 Chloride 95 L Carbon Dioxide 28.0 Anion Gap 9 BUN 30 H Creatinine 4.14 H Estim Creat Clear Calc 10.40 Est GFR (MDRD) Af Amer 14 L Est GFR (MDRD) Non-Af 11 L BUN/Creatinine Ratio 7.2 L Glucose 113 H Uric Acid Calcium 8.2 L Troponin I 0.024 02/14/19 05:43 WBC RBC Hgb Hct MCV MCH MCHC RDW Std Deviation RDW Coeff of Susan Plt Count MPV Immature Gran % (Auto) Neut % (Auto) Lymph % (Auto) Pike % (Auto) Eos % (Auto) Baso % (Auto) Absolute Neuts (auto) Absolute Lymphs (auto) Nucleated RBC % Sodium Potassium Chloride Carbon Dioxide Anion Gap BUN Creatinine Estim Creat Clear Calc Est GFR (MDRD) Af Amer Est GFR (MDRD) Non-Af BUN/Creatinine Ratio Glucose Uric Acid 3.5 Calcium Troponin I POC Glucose 02/14/19 02/14/19 02/13/19 11:11 06:53 22:45 POC Glucose 98 113 H 109 02/13/19 18:23 POC Glucose 192 H Assessment/Plan 1. ESRD HD MWF. dialysis today 2. Anemia CARMEN on dialysis 3. CP hx CAD primary service mgmt 4. HTN BP low 5. cirrhosis, ascites s/p paracentesis yesterday 6. DM2 primary service mgmt
--- NOTE | 2019-02-14 11:45 | NURSING ---
Patient continues to complain of extreme pain 10 out of 10 in her right hand, wrist, and occasionally shooting up her arm, she has been crying and screaming out in pain. Dr Romero notified again, and he states that he will place orders.
--- NOTE | 2019-02-14 12:40 | NURSING ---
Addendum entered by Casie Gupta 02/14/19 12:53: vitals remain stable but her respirations are slightly shallow and irregular at 12 per minute. iv ativan and dilaudid held at this time due to patient appearing to be more comfortable and respirations slower. Original Note: Patient now lying in bed, resting quietly, with eyes closed. vitals
[2019-02-14] MEDS: LORazepam 2 MG/ML Syringe 0.5 MG IV (13:10)
--- NOTE | 2019-02-14 13:10 | NURSING ---
Patient now awake again, screaming in pain and writhing around the bed again, asking for help for the pain in her right hand. She is attempting to talk on the phone with her daughter also at this time. Pt medicated with ordered ativan at this time. will monitor
--- NOTE | 2019-02-14 13:44 | NURSING ---
Dr Romero called and updated on patient status at this time. she is resting quietly in bed,with eyes closed. respirations are shallow at times and irregular. pulse ox was 88% on room air, nasal canula oxygen placed on patient at 3liters and pulse ox came up to 91%. pt's overall color is slightly raza, and she just does not look well. b/p 98/[address] Romero states to call Dr. Crawley.
--- NOTE | 2019-02-14 13:49 | NURSING ---
Dr Crawley notified of pt's condition and vital signs at this time. no new orders obtained.
--- NOTE | 2019-02-14 14:18 | RAD_ITS ---
STUDY: X-RAY CHEST REASON FOR EXAM: Female, 74 years old. Shortness of breath TECHNIQUE: Single AP portable view of the chest. COMPARISON: Prior study of 02/13/2019 FINDINGS: monitoring analyst leads are present. There is an old calcified granuloma of the left lung base. There is no demonstrated pleural abnormality. There is mild cardiac enlargement. Normal mediastinum and roxy. Normal visualized pulmonary arteries. There are calcified plaques of the aortic arch. Normal visualized thoracic spine. There is an old healed fracture of the right sixth rib. There is no demonstrated abnormality of the visualized soft tissue structures of the upper abdomen. Surgical clips are seen in the left axilla. RAD/Chest 1 View (Portable) IMPRESSION: 1. Mild cardiomegaly. 2. Calcified plaques of the aortic arch. 3. Old calcified granuloma of the left lung base. 4. Old healed fracture of the right sixth rib. 5. Surgical clips are seen in the left axilla. 6. No acute cardiopulmonary disease process is seen. Electronically Signed: Phillip Roy MD at 18:24 EDT , Service support ,
[2019-02-14] MEDS: Flumazenil 0.5 MG/5 ML Vial 0.2 MG IV (14:37)
--- NOTE | 2019-02-14 14:43 | NURSING ---
having cxr now abgs drawn responding more
[2019-02-14 14:51] LABS: Base Excess 7 mmol/L (-2 to +2); Bicarbonate 29.2 mmol/L (22-26); Blood Gas Specimen Type ART; FI02 28; PO2 61 mmHG (75-100); SITE L Brachial; SO2 94 % (95-99); Time Given 1435; Total Carbon Dioxide 30 mmol/L; pCO2 32.7 mmHg (35-45); pH 7.56 (7.35-7.45)
[2019-02-14] MEDS: Pantoprazole Sodium 40 MG Tablet PO (17:09)
[2019-02-14] MEDS: Folic Acid/Vitamin B Comp W-C 1 Capsule 1 CAP PO (17:09)
[2019-02-14] MEDS: Gabapentin 100 MG Capsule PO (17:09)
[2019-02-14] MEDS: SEVELAMER CARBONATE 800 MG TABLET PO (17:13)
[2019-02-14 17:20] LABS: Bedside Glucose 79 mg/dL (70-110)
[2019-02-14] MEDS: Carvedilol 12.5 MG Tablet PO (21:31)
[2019-02-14] MEDS: cycloBENZAPRine HCl 5 MG TABLET PO (21:31)
[2019-02-14] MEDS: Pramipexole Di-HCl 0.125 MG Tablet PO (21:32)
[2019-02-14] MEDS: Gabapentin 100 MG Capsule 200 MG PO (21:32)
[2019-02-14] MEDS: Isosorbide Mononitrate 60 MG Tablet PO (21:32)
[2019-02-14] MEDS: Atorvastatin Calcium 80 MG Tablet PO (21:32)
[2019-02-14 22:20] LABS: Bedside Glucose 157 mg/dL (70-110)
[2019-02-14] MEDS: Zolpidem Tartrate 5 MG Tablet PO (23:16)
[2019-02-15] VITALS (11 sets, daily range): BP systolic 98–140; BP diastolic 34–46; PULSE 61–72; RESP 16–18; TEMP 36.5–37; O2SAT 95–100
--- NOTE | 2019-02-15 05:55 | EKG12_ITS ---
Test Reason : AM EKG Blood Pressure : / mmHG Vent. Rate : 069 BPM Atrial Rate : 069 BPM P-R Int : 288 ms QRS Dur : 096 ms QT Int : 466 ms P-R-T Axes : 048 040 150 degrees QTc Int : 499 ms Sinus rhythm with sinus arrhythmia with 1st degree A-V block Nonspecific T wave abnormality Prolonged QT Abnormal ECG When compared with ECG of 14-FEB-2019 05:23, MANUAL COMPARISON REQUIRED, DATA IS UNCONFIRMED Confirmed by KENRICK NEWMAN, LLOYD ([id number]), editor newspaper ÁNGEL CALDERON ([id number]) on 02/25/2019 10:42:29 AM Referred By: Cheyenne Benavidez Confirmed By:TIFFANIE CHOUDHARY MD
[2019-02-15] MEDS: Clopidogrel Bisulfate 75 MG Tablet PO (07:03)
[2019-02-15] MEDS: Aspirin E.C. 81 MG Tablet PO (07:03)
[2019-02-15 07:04] LABS: Absolute Lymphocyte Count 1.23 X10^3/uL (0.83-4.51); Absolute Neutrophil Count 2.3 X10^3/uL (2.0-7.7); Basophil# 0.06 X10^3/uL; Basophil% 1.4 % (0-1); Eosinophil# 0.32 X10^3/uL; Eosinophils% 7.3 % (0-5); Hematocrit 29.7 % (37-47); Lymphocyte # 1.23 X10^3/ul (4.0); Lymphocyte % 28.1 % (19-41); Mean Corp Hgb Conc 30.3 g/dL (32-36); Mean Corpuscular Hgb 29.6 pg (27.0-32.0); Mean Corpuscular Volume 97.7 fL (81-99); Mean Platelet Vol. 9.5 fl (6.2-12.0); Monocyte% 11.4 % (0-10); NRBC Flagged by Analyzer 0 % (0-5); Neutrophil # 2.25 X10^3/uL (2.7-7.7); Neutrophil % 51.3 % (47-70); Platelet Count 105 K/mm3 (150-450); RBC Distribution Width CV 17.4 % (11.6-14.6); RBC Distribution Width SD 58.5 fl (35.1-43.9); Red Blood Count 3.04 M/mm3 (4.2-5.4); White Blood Count 4.4 K/mm3 (4.4-11.0)
[2019-02-15 07:08] LABS: International Normalized Ratio 1.4; Prothrombin Time (Protime)PT. 17.2 SECONDS (11.7-14.9)
[2019-02-15 07:10] LABS: Bedside Glucose 110 mg/dL (70-110)
[2019-02-15 07:33] LABS: Anion Gap 9 (5-15); BUN 21 mg/dL (7-18); BUN/Creat Ratio 6.1 RATIO (10-20); Calcium,Total 7.6 mg/dL (8.5-10.1); Chloride 94 mmol/L (98-107); Creatinine, Serum 3.43 mg/dL (0.55-1.02); EST Glomerular Filtration Rate 14 mL/min (>60); Est Glom Filt Rate - Afr Amer 17 mL/min (>60); Estimated Creatinine Clearance 12.56 ml/min; Glucose 107 mg/dL (74-106); Potassium 4.5 mmol/L (3.5-5.1); Sodium Level 132 mmol/L (136-145)
--- NOTE | 2019-02-15 07:36 | PCM.PN.HOSP ---
Subjective: CC: Follow-up chest discomfort Patient seen scheduled to undergo nuclear stress test this a.m. The pain in her right wrist which was intense the day prior has resolved. Imaging studies demonstrated degenerative joint disease no fracture Objective: GENERAL: Cooperative HEENT: Atraumatic; EYES; Anicteric, Normal Conjunctiva NECK; supple, normal thyroid, RESPIRATORY: Diminished to auscultation bilaterally, CARDIOVASCULAR: Regular S1 S2, GI: soft, non-tender, normoactive bowel sounds, : No Renal angle tenderness; EXTREMITIES: No edema, no clubbing, MUSCULOSKELETAL: No muscle waisting NEURO: Awake; no lateralizing signs. SKIN: No Rash PSYCH; appropriate affect Vitals/I&O's: Vital Signs Temp Pulse Resp BP Pulse Ox 97.9 F 67 16 103/46 L 95 02/15/19 07:30 02/15/19 07:30 02/15/19 07:30 02/15/19 07:30 02/15/19 07:30 Oxygen Flow Rate (L/min) 3 Oxygen Delivery Method Nasal Cannula Weight: 84.5 kg Body Mass Index (BMI) 30.9 Finger Stick Blood Glucose 99 Intake and Output for Last 24 Hours 02/13/19 02/14/19 02/15/19 23:59 23:59 23:59 Intake Total 290 / 290 860 / 860 Output Total 0 / 0 0 / 0 Balance 290 / 290 860 / 860 Laboratory Results 02/14/19 05:43: Uric Acid 3.5 02/14/19 11:11: POC Glucose 98 02/14/19 14:46: Specimen Type ART, Sample Site L Brachial, pH 7.56 H, Bicarbonate Actual 29.2 H, POC Total CO2 30, Base Excess 7 H, O2 Saturation 94 L, O2 % 28, ABG pCO2 32.7 L, ABG pO2 61 L, Nahid Test NA, O2 Delivery Device Vent Mask, Blood Gas Notified Whom LETICIA NEWMAN, Blood Gas Notified Time 1435 02/14/19 17:03: POC Glucose 79 02/14/19 21:21: POC Glucose 157 H 02/15/19 05:55: WBC 4.4, RBC 3.04 L, Hgb 9.0 L, Hct 29.7 L, MCV 97.7, MCH 29.6, MCHC 30.3 L, RDW Std Deviation 58.5 H, RDW Coeff of Susan 17.4 H, Plt Count 105 L, MPV 9.5, Immature Gran % (Auto) 0.500, Neut % (Auto) 51.3, Lymph % (Auto) 28.1, [place] % (Auto) 11.4 H, Eos % (Auto) 7.3 H, Baso % (Auto) 1.4 H, Absolute Neuts (auto) 2.3, Absolute Lymphs (auto) 1.23, Nucleated RBC % 0 02/15/19 05:55: PT 17.2 H, INR 1.4 02/15/19 05:55: Sodium 132 L, Potassium 4.5, Chloride 94 L, Carbon Dioxide 29.0, Anion Gap 9, BUN 21 H, Creatinine 3.43 H, Estim Creat Clear Calc 12.56, Est GFR (MDRD) Af Amer 17 L, Est GFR (MDRD) Non-Af 14 L, BUN/Creatinine Ratio 6.1 L, Glucose 107 H, Calcium 7.6 L 02/15/19 06:55: POC Glucose 110 Current Medications Acetaminophen (Tylenol) 650 mg PO Q6H PRN PRN PRN Reason: Mild pain 1-3/Temp > 100.7 F Albuterol Sulfate (Ventolin Aerosols) 2.5 mg INHALATION Q2H PRN PRN PRN Reason: SOB/Wheezing Aspirin (Ecotrin) 81 mg PO DAILY@0800 [facility] Last Admin: 02/15/19 07:03 Dose: 81 mg Documented by: Atorvastatin Calcium (Lipitor) 80 mg PO QHS [facility] Last Admin: 02/14/19 21:32 Dose: 80 mg Documented by: Carvedilol (Coreg) 12.5 mg PO BID [facility] Last Admin: 02/14/19 21:31 Dose: 12.5 mg Documented by: Clopidogrel Bisulfate (Plavix) 75 mg PO DAILY [facility] Last Admin: 02/15/19 07:03 Dose: 75 mg Documented by: Cyclobenzaprine HCl (Cyclobenzaprine Hcl) 5 mg PO BID [facility] Last Admin: 02/14/19 21:31 Dose: 5 mg Documented by: Dextrose (D50w Syringe) 0 gm IV X1 PRN; Protocol PRN Reason: Hypoglycemia Docusate Sodium (Colace) 100 mg PO DAILY [facility] Last Admin: 02/14/19 14:30 Dose: Not Given Documented by: Gabapentin (Neurontin) 100 mg PO BIDCM [facility] Last Admin: 02/14/19 17:09 Dose: 100 mg Documented by: Gabapentin (Neurontin) 200 mg PO QHS [facility] Last Admin: 02/14/19 21:32 Dose: 200 mg Documented by: Glucagon () 1 mg IM .X1 PRN PRN Reason: Hypoglycemia Heparin Sodium (Porcine) (Heparin Na) 5,000 unit SC Q12 [facility] Last Admin: 02/14/19 21:29 Dose: Not Given Documented by: Hydralazine HCl (Apresoline) 100 mg PO BID [facility] Last Admin: 02/14/19 21:31 Dose: 100 mg Documented by: Hydrocortisone (Hytone) 1 applic TOPICAL BID PRN PRN; Protocol PRN Reason: ITCHING Last Admin: 02/13/19 23:57 Dose: 1 applicatio Documented by: Insulin Glargine (Lantus ([facility])) 22 units SC QHS [facility] Last Admin: 02/14/19 21:22 Dose: Not Given Documented by: Insulin Human Lispro (Humalog Kwikpen ([facility])) 0 unit SC [facility]; Protocol Last Admin: 02/15/19 06:58 Dose: Not Given Documented by: Isosorbide Mononitrate (Imdur) 60 mg PO QHS [facility] Last Admin: 02/14/19 21:32 Dose: 60 mg Documented by: Isosorbide Mononitrate (Imdur) 90 mg PO BREAKFAST [facility] Last Admin: 02/14/19 14:04 Dose: Not Given Documented by: Losartan Potassium (Cozaar) 50 mg PO BID [facility] Last Admin: 02/14/19 21:31 Dose: 50 mg Documented by: Multivit/Ca Carb/B Cmplx/FA/Prenat (Nephrocaps, Renaphro) 1 capsule PO DAILY [facility] Last Admin: 02/14/19 17:09 Dose: 1 capsule Documented by: Nitroglycerin (Nitrostat) 0.4 mg SUBLINGUAL Q5M PRN PRN Reason: CARDIAC/CHEST PAIN Ondansetron HCl (Zofran) 4 mg IV Q8H PRN PRN PRN Reason: NAUSEA/VOMITING Last Admin: 02/14/19 10:28 Dose: 4 mg Documented by: Oxycodone HCl (Oxyir) 5 mg PO Q4H PRN PRN PRN Reason: Moderate Pain (4-6/10) Last Admin: 02/14/19 23:50 Dose: 5 mg Documented by: Pantoprazole Sodium (Protonix) 40 mg PO DAILY [facility] Last Admin: 02/14/19 17:09 Dose: 40 mg Documented by: Pramipexole Dihydrochloride (Mirapex) 0.125 mg PO QHS [facility] Last Admin: 02/14/19 21:32 Dose: 0.125 mg Documented by: Sevelamer Carbonate (Renvela) 800 - 3,200 mg PO ACHS [facility] Last Admin: 02/15/19 06:58 Dose: Not Given Documented by: Medical Necessity - Tobacco Use Smoking Status: Former smoker Assessment/Plan Patient is a 74-year-old lady sent to the emergency department with generalized aches as well as swelling involving lower extremities. She also did complain of chest pain placed on a monitored bed for subsequent management 1. Chest pain ~Patient has significant risk factors including previous angioplasty and stenting to LAD. Admitted to a monitored bed serial cardiac enzymes ordered with plans for patient to undergo stress test once SC has been ruled out ?02/15/2019 stress test scheduled to be performed on 02/15/2019 2. End-stage renal disease ~patient is on hemodialysis consultation placed to nephrology (Dr. Crawley) for dialysis orders 3. Right wrist pain ~Undetermined etiology ordered gout as well as plain x-rays patient medicated. 02/15/2019: Imaging studies demonstrated degenerative joint disease. Uric acid was within normal limits. 4. Diabetes mellitus type 2 ~with complications including end-stage renal disease. Patient is on insulin did continue with home regimen also placed on Accu-Cheks before meals and at bedtime and cover with sliding scale insulin 5. Hypertension ~ blood pressure controlled, home medications continued with dose adjustment as needed 6. Hypothyroidism ~patient is on levothyroxine home dose continued 7. Dyslipidemia ~patient is on statin therapy, continued at home dose 8. Coronary artery disease ~With previous angioplasty and stenting to LAD 9. Paroxysmal A. fib ~Controlled previously on systemic anticoagulation which was not listed on her home meds 10. DVT prophylaxis ~SC heparin Code Visit OBSV E&M: 60240 Observ/hosp same date L2
--- NOTE | 2019-02-15 10:39 | NURSING ---
This RN talked with pt's daughter, Jackeline on the phone and let her know the pt was down at stress test and didn't have her phone with her. Reported pt to still be drowsy and c/o of right hand pain. Jackeline denies further questions or concerns at this time.
--- NOTE | 2019-02-15 11:13 | VDUE_ITS ---
Reason For Study: RUE swelling Right Proximal Right jugular vein is pulsitile, widely patent, with no intraluminal echogenicity noted. Right subclavian vein is pulsitile, widely patent, with no intraluminal echogenicity noted. Right Lower Arm Right radial vein is compressible. Right ulnar vein is compressible. Right Arm Right axillary vein is pulsitile, patent, competent, compressible and demonstrates augmentation. Right brachial vein is compressible. NONVASCULAR LUMP NOTED IN THE MEDIAL ANTECUBITAL SPACE measuring 2.0 x 0.8 cm. Right cephalic vein is compressible. Right basilic vein is compressible. Interpretation Summary Deep veins of the right upper extremity are patent and compressible segmentally. There is no evidence of deep vein thrombosis. The superficial veins of the right upper extremity, the basilic and cephalic veins, are patent and compressible. There is no evidence of right upper extremity superficial thrombophlebitis involving the veins imaged. Pulsatile venous flow is noted in the right upper extremity deep venous system, which is an abnormal finding. Clinical correlation is advised. A non-vascular, heterogeneous structure is noted in the right medial antecubital space, measuring 2.0 cm x 0.8 cm. This may represent a hematoma. Clinical correlation is advised. Ordering Physician: Arturo Romero Referring Physician: Davy Coleman Performed By: Pat Torres, ALEJANDRO, RVT ?
--- NOTE | 2019-02-15 12:00 | CM.UR ---
Have attempted to go in 2x so far today to give SCHMITZ form however patient has been off floor for testing. Mindi Song RN, CCM.
--- NOTE | 2019-02-15 12:09 | STRESSREP ---
Stress Test Report Date: 02-15-19 Procedure: Pharmacologic stress nuclear imaging study Indications: Chest pain Consent: Per the patient Myocardial perfusion imaging study: Technique: The patient was injected with 11.4 millicuries of technetium 99m Cardiolite and subsequently rest SPECT Cardiolite nuclear imaging was obtained in the horizontal long, vertical long, and short axis views. The patient's pharmacologic stress nuclear imaging study was subsequently canceled by the patient's attending physician based upon ongoing noncardiovascular issues. Interpretation: Rest SPECT Cardiolite nuclear imaging status post realignment, normalization, and attenuation correction demonstrate relative uniform tracer uptake and myocardial perfusion appearing within normal limits. Impression: 1. Rest SPECT cardio light nuclear imaging demonstrates relative uniform tracer uptake and myocardial perfusion appearing within normal limits. This note was generated with [employer] dictation software. It may contain incorrect words, spelling, and punctuation that were not noted in checking the note before signing.
[2019-02-15] MEDS: Isosorbide Mononitrate 30 MG Tablet 90 MG PO (12:32)
[2019-02-15] MEDS: Gabapentin 100 MG Capsule PO ×2 (12:32→17:12)
[2019-02-15] MEDS: cycloBENZAPRine HCl 5 MG TABLET PO ×2 (12:32→22:30)
[2019-02-15] MEDS: Docusate Sodium 100 MG Capsule PO (12:33)
[2019-02-15] MEDS: Heparin Injection (Vial) 5,000 UNIT/ML VIAL 5000 UNIT SC ×2 (12:33→22:31)
[2019-02-15] MEDS: Folic Acid/Vitamin B Comp W-C 1 Capsule 1 CAP PO (12:34)
[2019-02-15] MEDS: Pantoprazole Sodium 40 MG Tablet PO (12:34)
[2019-02-15] MEDS: SEVELAMER CARBONATE 800 MG TABLET PO ×2 (12:34→17:11)
--- NOTE | 2019-02-15 12:42 | PCM.PN.BLA ---
Progress Note Patient cardiac enzymes and so far remain negative to date. Her stress test was canceled since she is known to have an anomalous anatomy and no intervention will be performed if stress test came back positive. More so patient did deny any chest pain following the initial episode Patient was noted to have bruising involving the right arm and a hematoma around the antecubital fossa. Requested for arterial and venous duplex which failed to demonstrate any ischemia or DVT. Plan: Continue to observe patient and request for ultrasound-guided paracentesis given her distended abdomen
[2019-02-15 12:46] LABS: Bedside Glucose 107 mg/dL (70-110)
[2019-02-15] MEDS: oxyCODONE 5 MG Tablet PO ×3 (13:27→22:28)
[2019-02-15] MEDS: Insulin Lispro 100 UNIT/ML INSULN.PEN SC ×2 (17:12→22:31)
[2019-02-15] MEDS: Acetaminophen 325 MG Tablet 650 MG PO (17:18)
[2019-02-15 17:26] LABS: Bedside Glucose 155 mg/dL (70-110)
[2019-02-15 22:21] LABS: Bedside Glucose 155 mg/dL (70-110)
[2019-02-15] MEDS: Isosorbide Mononitrate 60 MG Tablet PO (22:30)
[2019-02-15] MEDS: Pramipexole Di-HCl 0.125 MG Tablet PO (22:30)
[2019-02-15] MEDS: Gabapentin 100 MG Capsule 200 MG PO (22:30)
[2019-02-15] MEDS: Carvedilol 12.5 MG Tablet PO (22:30)
[2019-02-15] MEDS: Atorvastatin Calcium 80 MG Tablet PO (22:30)
[2019-02-15] MEDS: Losartan Potassium 50 MG Tablet PO (22:46)
[2019-02-15] MEDS: Ondansetron 4 MG/2 ML Vial IV (23:30)
[2019-02-16] VITALS (14 sets, daily range): BP systolic 92–122; BP diastolic 20–33; PULSE 43–69; RESP 18; TEMP 36.6–37; O2SAT 94–99
[2019-02-16] MEDS: oxyCODONE 5 MG Tablet PO ×2 (06:01→12:19)
[2019-02-16 06:28] LABS: Absolute Lymphocyte Count 1.35 X10^3/uL (0.83-4.51); Absolute Neutrophil Count 2.6 X10^3/uL (2.0-7.7); Basophil# 0.07 X10^3/uL; Basophil% 1.4 % (0-1); Eosinophil# 0.36 X10^3/uL; Eosinophils% 7.3 % (0-5); Hematocrit 31.3 % (37-47); Hemoglobin 9.7 g/dL (12.0-15.0); Lymphocyte # 1.35 X10^3/ul (4.0); Lymphocyte % 27.2 % (19-41); Mean Corpuscular Hgb 30.1 pg (27.0-32.0); Mean Corpuscular Volume 97.2 fL (81-99); Mean Platelet Vol. 9.5 fl (6.2-12.0); Monocyte# 0.53 X10^3/uL; Monocyte% 10.7 % (0-10); NRBC Flagged by Analyzer 0 % (0-5); Neutrophil # 2.64 X10^3/uL (2.7-7.7); Neutrophil % 53.2 % (47-70); Platelet Count 104 K/mm3 (150-450); RBC Distribution Width CV 17.5 % (11.6-14.6); RBC Distribution Width SD 59.3 fl (35.1-43.9); Red Blood Count 3.22 M/mm3 (4.2-5.4)
[2019-02-16 06:52] LABS: Anion Gap 9 (5-15); BUN 28 mg/dL (7-18); BUN/Creat Ratio 6.3 RATIO (10-20); Chloride 93 mmol/L (98-107); Creatinine, Serum 4.43 mg/dL (0.55-1.02); EST Glomerular Filtration Rate 10 mL/min (>60); Est Glom Filt Rate - Afr Amer 12 mL/min (>60); Estimated Creatinine Clearance 9.72 ml/min; Glucose 117 mg/dL (74-106); Potassium 5.2 mmol/L (3.5-5.1); Sodium Level 129 mmol/L (136-145)
--- NOTE | 2019-02-16 07:28 | PCM.PN.HOSP ---
Subjective: CC follow-up ACITES Patient initially admitted with arm pain and chest pain FL was ruled out with serial cardiac enzymes. 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 Patient was found to have developed abdominal distention. She has history of chronic liver disease with recurrent ascites for which she receives paracentesis. An order was given for patient to undergo repeat paracentesis on 02/17/2019 to be performed by radiology Objective: GENERAL: Cooperative HEENT: Atraumatic; EYES; Anicteric, Normal Conjunctiva NECK; supple, normal thyroid, RESPIRATORY: Diminished to auscultation bilaterally, CARDIOVASCULAR: Regular S1 S2, GI: Distended abdomen dull to percussion : No Renal angle tenderness; EXTREMITIES: Stasis dermatitis MUSCULOSKELETAL: No muscle waisting NEURO: Awake; no lateralizing signs. SKIN: No Rash PSYCH; appropriate affect Vitals/I&O's: Vital Signs Temp Pulse Resp BP Pulse Ox 98.6 F 60 18 103/30 L 94 02/16/19 06:06 02/16/19 06:06 02/16/19 06:06 02/16/19 06:08 02/16/19 07:08 Oxygen Flow Rate (L/min) 3 Oxygen Delivery Method Nasal Cannula Weight: 84.5 kg Body Mass Index (BMI) 30.9 Finger Stick Blood Glucose 99 Intake and Output for Last 24 Hours 02/14/19 02/15/19 02/16/19 23:59 23:59 23:59 Intake Total 860 / 860 440 / 440 558.34 / 558.34 Output Total 0 / 0 0 / 0 Balance 860 / 860 440 / 440 558.34 / 558.34 Laboratory Results 02/15/19 05:55: Sodium 132 L, Potassium 4.5, Chloride 94 L, Carbon Dioxide 29.0, Anion Gap 9, BUN 21 H, Creatinine 3.43 H, Estim Creat Clear Calc 12.56, Est GFR (MDRD) Af Amer 17 L, Est GFR (MDRD) Non-Af 14 L, BUN/Creatinine Ratio 6.1 L, Glucose 107 H, Calcium 7.6 L 02/15/19 12:21: POC Glucose 107 02/15/19 17:03: POC Glucose 155 H 02/15/19 21:40: POC Glucose 155 H 02/16/19 06:00: WBC 5.0, RBC 3.22 L, Hgb 9.7 L, Hct 31.3 L, MCV 97.2, MCH 30.1, MCHC 31.0 L, RDW Std Deviation 59.3 H, RDW Coeff of Susan 17.5 H, Plt Count 104 L, MPV 9.5, Immature Gran % (Auto) 0.200, Neut % (Auto) 53.2, Lymph % (Auto) 27.2, [place] % (Auto) 10.7 H, Eos % (Auto) 7.3 H, Baso % (Auto) 1.4 H, Absolute Neuts (auto) 2.6, Absolute Lymphs (auto) 1.35, Nucleated RBC % 0 02/16/19 06:00: Sodium 129 L, Potassium 5.2 H, Chloride 93 L, Carbon Dioxide 27.0, Anion Gap 9, BUN 28 H, Creatinine 4.43 H, Estim Creat Clear Calc 9.72, Est GFR (MDRD) Af Amer 12 L, Est GFR (MDRD) Non-Af 10 L, BUN/Creatinine Ratio 6.3 L, Glucose 117 H, Calcium 8.0 L Current Medications Acetaminophen (Tylenol) 650 mg PO Q6H PRN PRN PRN Reason: Mild pain 1-3/Temp > 100.7 F Last Admin: 02/15/19 17:18 Dose: 650 mg Documented by: Albuterol Sulfate (Ventolin Aerosols) 2.5 mg INHALATION Q2H PRN PRN PRN Reason: SOB/Wheezing Aspirin (Ecotrin) 81 mg PO DAILY@0800 [facility] Last Admin: 02/15/19 07:03 Dose: 81 mg Documented by: Atorvastatin Calcium (Lipitor) 80 mg PO QHS [facility] Last Admin: 02/15/19 22:30 Dose: 80 mg Documented by: Carvedilol (Coreg) 12.5 mg PO BID [facility] Last Admin: 02/15/19 22:30 Dose: 12.5 mg Documented by: Clopidogrel Bisulfate (Plavix) 75 mg PO DAILY [facility] Last Admin: 02/15/19 07:03 Dose: 75 mg Documented by: Cyclobenzaprine HCl (Cyclobenzaprine Hcl) 5 mg PO BID [facility] Last Admin: 02/15/19 22:30 Dose: 5 mg Documented by: Dextrose (D50w Syringe) 0 gm IV X1 PRN; Protocol PRN Reason: Hypoglycemia Docusate Sodium (Colace) 100 mg PO DAILY [facility] Last Admin: 02/15/19 12:33 Dose: 100 mg Documented by: Gabapentin (Neurontin) 100 mg PO BIDCM [facility] Last Admin: 02/15/19 17:12 Dose: 100 mg Documented by: Gabapentin (Neurontin) 200 mg PO QHS [facility] Last Admin: 02/15/19 22:30 Dose: 200 mg Documented by: Glucagon () 1 mg IM .X1 PRN PRN Reason: Hypoglycemia Heparin Sodium (Porcine) (Heparin Na) 5,000 unit SC Q12 [facility] Last Admin: 02/15/19 22:31 Dose: 5,000 unit Documented by: Hydralazine HCl (Apresoline) 100 mg PO BID [facility] Last Admin: 02/15/19 22:45 Dose: Not Given Documented by: Hydrocortisone (Hytone) 1 applic TOPICAL BID PRN PRN; Protocol PRN Reason: ITCHING Last Admin: 02/13/19 23:57 Dose: 1 applicatio Documented by: Insulin Glargine (Lantus ([facility])) 22 units SC QHS [facility] Last Admin: 02/15/19 22:31 Dose: 22 u Documented by: Insulin Human Lispro (Humalog Kwikpen ([facility])) 0 unit SC [facility]; Protocol Last Admin: 02/16/19 06:24 Dose: Not Given Documented by: Isosorbide Mononitrate (Imdur) 60 mg PO QHS [facility] Last Admin: 02/15/19 22:30 Dose: 60 mg Documented by: Isosorbide Mononitrate (Imdur) 90 mg PO BREAKFAST [facility] Last Admin: 02/15/19 12:32 Dose: 90 mg Documented by: Losartan Potassium (Cozaar) 50 mg PO BID [facility] Last Admin: 02/15/19 22:46 Dose: 50 mg Documented by: Multivit/Ca Carb/B Cmplx/FA/Prenat (Nephrocaps, Renaphro) 1 capsule PO DAILY [facility] Last Admin: 02/15/19 12:34 Dose: 1 capsule Documented by: Nitroglycerin (Nitrostat) 0.4 mg SUBLINGUAL Q5M PRN PRN Reason: CARDIAC/CHEST PAIN Ondansetron HCl (Zofran) 4 mg IV Q8H PRN PRN PRN Reason: NAUSEA/VOMITING Last Admin: 02/15/19 23:30 Dose: 4 mg Documented by: Oxycodone HCl (Oxyir) 5 mg PO Q4H PRN PRN PRN Reason: Moderate Pain (4-6/10) Last Admin: 02/16/19 06:01 Dose: 5 mg Documented by: Pantoprazole Sodium (Protonix) 40 mg PO DAILY [facility] Last Admin: 02/15/19 12:34 Dose: 40 mg Documented by: Pramipexole Dihydrochloride (Mirapex) 0.125 mg PO QHS [facility] Last Admin: 02/15/19 22:30 Dose: 0.125 mg Documented by: Sevelamer Carbonate (Renvela) 800 - 3,200 mg PO ACHS [facility] Last Admin: 02/16/19 07:01 Dose: Not Given Documented by: Medical Necessity - Tobacco Use Smoking Status: Former smoker Assessment/Plan Patient is a 74-year-old lady sent to the emergency department with generalized aches as well as swelling involving lower extremities. She also did complain of chest pain placed on a monitored bed for subsequent management 1. Chest pain ~Patient has significant risk factors including previous angioplasty and stenting to LAD. Admitted to a monitored bed serial cardiac enzymes ordered with plans for patient to undergo stress test once FL has been ruled out ?02/15/2019 stress test scheduled to be performed on 02/15/2019 ?02/16/2019: Stress test scheduled to be performed the day prior was discontinued per recommendations from cardiology 2. Ascites ?secondary to chronic liver disease (?? Nonalcoholic fatty liver disease). Patient received routine paracentesis and order was given for patient to undergo repeat on 02/17/2019 3. End-stage renal disease ~patient is on hemodialysis consultation placed to nephrology (Dr. Crawley) for dialysis orders 4. Diabetes mellitus type 2 ~with complications including end-stage renal disease. Patient is on insulin did continue with home regimen also placed on Accu-Cheks before meals and at bedtime and cover with sliding scale insulin 5. Hypertension ~ blood pressure controlled, home medications continued with dose adjustment as needed 6. Hypothyroidism ~patient is on levothyroxine home dose continued 7. Dyslipidemia ~patient is on statin therapy, continued at home dose 8. Coronary artery disease ~With previous angioplasty and stenting to LAD 9. Paroxysmal A. fib ~Controlled previously on systemic anticoagulation which was not listed on her home meds 10. DVT prophylaxis ~SC heparin 11. Right wrist pain ~Undetermined etiology ordered gout as well as plain x-rays patient medicated. 02/15/2019: Imaging studies demonstrated degenerative joint disease. Uric acid was within normal limits. Code Visit OBSV E&M: 46009 Initial observation care L3
[2019-02-16] MEDS: Heparin Injection (Vial) 5,000 UNIT/ML VIAL 5000 UNIT SC ×2 (09:43→22:12)
[2019-02-16] MEDS: Folic Acid/Vitamin B Comp W-C 1 Capsule 1 CAP PO (09:43)
[2019-02-16] MEDS: Clopidogrel Bisulfate 75 MG Tablet PO (09:43)
[2019-02-16] MEDS: Pantoprazole Sodium 40 MG Tablet PO (09:43)
[2019-02-16] MEDS: Gabapentin 100 MG Capsule PO ×2 (09:43→16:34)
[2019-02-16] MEDS: cycloBENZAPRine HCl 5 MG TABLET PO ×2 (09:43→22:11)
[2019-02-16] MEDS: Aspirin E.C. 81 MG Tablet PO (09:43)
[2019-02-16] MEDS: Docusate Sodium 100 MG Capsule PO (09:43)
[2019-02-16 11:40] LABS: Bedside Glucose 154 mg/dL (70-110)
[2019-02-16] MEDS: Insulin Lispro 100 UNIT/ML INSULN.PEN SC ×2 (12:20→16:32)
[2019-02-16] MEDS: SEVELAMER CARBONATE 800 MG TABLET PO ×2 (12:21→16:33)
[2019-02-16 16:41] LABS: Bedside Glucose 175 mg/dL (70-110)
[2019-02-16 21:36] LABS: Bedside Glucose 146 mg/dL (70-110)
[2019-02-16] MEDS: Atorvastatin Calcium 80 MG Tablet PO (22:11)
[2019-02-16] MEDS: Magnesium Hydroxide 30 ML UDC PO (22:12)
[2019-02-16] MEDS: Pramipexole Di-HCl 0.125 MG Tablet PO (22:12)
[2019-02-16] MEDS: Gabapentin 100 MG Capsule 200 MG PO (22:12)
[2019-02-17] VITALS (11 sets, daily range): BP systolic 94–127; BP diastolic 20–52; PULSE 47–73; RESP 16–18; TEMP 36.1–37; O2SAT 96–100
[2019-02-17 06:17] LABS: Absolute Lymphocyte Count 1.52 X10^3/uL (0.83-4.51); Basophil# 0.06 X10^3/uL; Basophil% 1.1 % (0-1); Eosinophil# 0.37 X10^3/uL; Eosinophils% 6.7 % (0-5); Hematocrit 31.7 % (37-47); Hemoglobin 9.7 g/dL (12.0-15.0); Lymphocyte # 1.52 X10^3/ul (4.0); Lymphocyte % 27.6 % (19-41); Mean Corp Hgb Conc 30.6 g/dL (32-36); Mean Corpuscular Hgb 29.8 pg (27.0-32.0); Mean Corpuscular Volume 97.5 fL (81-99); Mean Platelet Vol. 9.8 fl (6.2-12.0); Monocyte# 0.59 X10^3/uL; Monocyte% 10.7 % (0-10); NRBC Flagged by Analyzer 0 % (0-5); Neutrophil # 2.95 X10^3/uL (2.7-7.7); Neutrophil % 53.5 % (47-70); Platelet Count 121 K/mm3 (150-450); RBC Distribution Width CV 17.6 % (11.6-14.6); RBC Distribution Width SD 61.3 fl (35.1-43.9); Red Blood Count 3.25 M/mm3 (4.2-5.4); White Blood Count 5.5 K/mm3 (4.4-11.0)
[2019-02-17 06:36] LABS: Anion Gap 8 (5-15); BUN 34 mg/dL (7-18); BUN/Creat Ratio 6.4 RATIO (10-20); Calcium,Total 7.9 mg/dL (8.5-10.1); Chloride 91 mmol/L (98-107); Creatinine, Serum 5.29 mg/dL (0.55-1.02); EST Glomerular Filtration Rate 8 mL/min (>60); Est Glom Filt Rate - Afr Amer 10 mL/min (>60); Estimated Creatinine Clearance 8.14 ml/min; Glucose 106 mg/dL (74-106); Magnesium 2.3 mg/dL (1.6-2.6); Potassium 5.6 mmol/L (3.5-5.1); Sodium Level 127 mmol/L (136-145)
[2019-02-17 06:40] LABS: International Normalized Ratio 1.3; Prothrombin Time (Protime)PT. 16.2 SECONDS (11.7-14.9)
[2019-02-17 06:41] LABS: Partial Thromboplast Time 37.8 Seconds (24.1-36.2)
[2019-02-17 06:41] LABS: Bedside Glucose 100 mg/dL (70-110)
[2019-02-17] MEDS: Acetaminophen 325 MG Tablet 650 MG PO (09:07)
[2019-02-17] MEDS: Midodrine HCl 5 MG Tablet 10 MG PO (09:51)
--- NOTE | 2019-02-17 11:55 | PCM.PN.REN ---
Subjective: seen on dialysis. BP low despite midodrine. Unable to aggressively remove fluids. Complains of nausea, not feeling well with fluid removal. Paracentesis today cancelled due to plavix. - Physical Exam General: Alert, Oriented x3, - - weakness Lungs: Clear to auscultation Cardiovascular: Regular rate, Murmur Abdomen: Bowel Sounds Present, Soft, Distended, Tender Extremities: Edema Psych/Mental Status: Normal Affect, Appropriate, Alert and oriented to time, place, person, mood and affect Vital Signs Temp Pulse Resp BP Pulse Ox 97.4 F L 72 17 109/20 L 100 02/17/19 09:15 02/17/19 09:15 02/17/19 09:15 02/17/19 09:15 02/17/19 09:15 Oxygen Flow Rate (L/min) 3 Oxygen Delivery Method Nasal Cannula Weight: 84.5 kg Body Mass Index (BMI) 30.9 Finger Stick Blood Glucose 99 Intake and Output for Last 24 Hours 02/15/19 02/16/19 02/17/19 23:59 23:59 23:59 Intake Total 440 / 440 Output Total 0 / 0 0 / 0 Balance 440 / 440 Laboratory Tests Past 24 Hrs 02/17/19 02/17/19 02/17/19 05:55 05:55 05:55 WBC 5.5 RBC 3.25 L Hgb 9.7 L Hct 31.7 L MCV 97.5 MCH 29.8 MCHC 30.6 L RDW Std Deviation 61.3 H RDW Coeff of Susan 17.6 H Plt Count 121 L MPV 9.8 Immature Gran % (Auto) 0.400 Neut % (Auto) 53.5 Lymph % (Auto) 27.6 [place] % (Auto) 10.7 H Eos % (Auto) 6.7 H Baso % (Auto) 1.1 H Absolute Neuts (auto) 3.0 Absolute Lymphs (auto) 1.52 Nucleated RBC % 0 PT 16.2 H INR 1.3 APTT 37.8 H Sodium 127 L Potassium 5.6 H Chloride 91 L Carbon Dioxide 28.0 Anion Gap 8 BUN 34 H Creatinine 5.29 H Estim Creat Clear Calc 8.14 Est GFR (MDRD) Af Amer 10 L Est GFR (MDRD) Non-Af 8 L BUN/Creatinine Ratio 6.4 L Glucose 106 Calcium 7.9 L Magnesium 2.3 POC Glucose 02/17/19 02/16/19 02/16/19 06:33 21:29 16:28 POC Glucose 100 146 H 175 H Medical Necessity - Tobacco Use Smoking Status: Former smoker Assessment/Plan 1. ESRD HD MWF. seen on dialysis today. BP low. antihypertensives on hold 2. Anemia [facility] on dialysis 3. CP hx CAD primary service mgmt 4. HTN BP low, midodrine x1 today 5. cirrhosis, ascites s/p paracentesis last week. 6. DM2 primary service mgmt
[2019-02-17] MEDS: Gabapentin 100 MG Capsule PO ×2 (12:35→16:36)
[2019-02-17] MEDS: Aspirin E.C. 81 MG Tablet PO (12:35)
[2019-02-17] MEDS: Pantoprazole Sodium 40 MG Tablet PO (12:36)
[2019-02-17] MEDS: cycloBENZAPRine HCl 5 MG TABLET PO ×2 (12:36→20:45)
[2019-02-17] MEDS: Folic Acid/Vitamin B Comp W-C 1 Capsule 1 CAP PO (12:36)
[2019-02-17 13:01] LABS: Bedside Glucose 87 mg/dL (70-110)
--- NOTE | 2019-02-17 13:24 | DIALYSIS ---
HD x 4 hours complete. Difficulty removing fluid d/t bp. Dr. Crawley is aware. UF of 1700ml. Used left arm fistula. [place] removed post tx. Pressure applied x 10 minutes. Fresh gauze and tape applied. See tx sheet for more details. Report was given to Manfred Ramirez.
--- NOTE | 2019-02-17 14:56 | CASEMGMT ---
Per physician patient is weak and is open to going to a group home. SW spoke with patient and she said she would go somewhere if they are saying it is necessary. She said she would only go to [facility]. She said she has to be at dialysis at 1130, but the kidney center said her chair time is 1230. [facility]GO faxed referral to [facility]. MARGO also called [facility] with the referral and told her to please start the pre-cert. Plan: [facility] pending insurance approval. Marylou RAMIREZ MSW
--- NOTE | 2019-02-17 15:34 | PCM.PN.HOSP ---
Patient Problems: Active and Suspected Problems (Last Reviewed 01/16/19 @ 10:00 by Louise Donnelly) Chest pain (Acute) Subjective: Intermittent chest. no exacerbating nor alleviating factors. Vitals/I&O's: Vital Signs Temp Pulse Resp BP Pulse Ox 36.1 C L 70 16 127/28 H 100 02/17/19 12:20 02/17/19 15:07 02/17/19 12:20 02/17/19 12:20 02/17/19 09:15 Oxygen Flow Rate (L/min) 3 Oxygen Delivery Method Nasal Cannula Weight: 84.5 kg Body Mass Index (BMI) 30.9 Finger Stick Blood Glucose 99 Intake and Output for Last 24 Hours 02/15/19 02/16/19 02/17/19 23:59 23:59 23:59 Intake Total 440 / 440 85 / 85 Output Total 0 / 0 0 / 0 Balance 440 / 440 85 / 85 General: Alert, No apparent distress HEENT: Atraumatic, Normocephalic Oral: Moist Mucosa, No Gingival or Mucosal Lesions/ Ulcerations Neck: No Nodes, Thyroid Normal Size and Texture Lungs: Clear to auscultation, Normal air movement, No rhonchi, No wheeze, No rales Cardiovascular: Regular rate, Regular Rhythm, Normal S1, Normal S2, No murmurs Abdomen: Bowel Sounds Present, Soft, Distended - not taut, Tender Extremities: No edema, No Calf Tenderness Skin: No rashes, No breakdown Musculoskeletal: No Tenderness to Palpation of Joints or Extremities, No Muscle Wasting Psych/Mental Status: Normal Affect, Appropriate Laboratory Results 02/16/19 16:28: POC Glucose 175 H 02/16/19 21:29: POC Glucose 146 H 02/17/19 05:55: WBC 5.5, RBC 3.25 L, Hgb 9.7 L, Hct 31.7 L, MCV 97.5, MCH 29.8, MCHC 30.6 L, RDW Std Deviation 61.3 H, RDW Coeff of Susan 17.6 H, Plt Count 121 L, MPV 9.8, Immature Gran % (Auto) 0.400, Neut % (Auto) 53.5, Lymph % (Auto) 27.6, [place] % (Auto) 10.7 H, Eos % (Auto) 6.7 H, Baso % (Auto) 1.1 H, Absolute Neuts (auto) 3.0, Absolute Lymphs (auto) 1.52, Nucleated RBC % 0 02/17/19 05:55: PT 16.2 H, INR 1.3, APTT 37.8 H 02/17/19 05:55: Sodium 127 L, Potassium 5.6 H, Chloride 91 L, Carbon Dioxide 28.0, Anion Gap 8, BUN 34 H, Creatinine 5.29 H, Estim Creat Clear Calc 8.14, Est GFR (MDRD) Af Amer 10 L, Est GFR (MDRD) Non-Af 8 L, BUN/Creatinine Ratio 6.4 L, Glucose 106, Calcium 7.9 L, Magnesium 2.3 02/17/19 06:33: POC Glucose 100 02/17/19 12:54: POC Glucose 87 Current Medications Acetaminophen (Tylenol) 650 mg PO Q6H PRN PRN PRN Reason: Mild pain 1-3/Temp > 100.7 F Last Admin: 02/17/19 09:07 Dose: 650 mg Documented by: Albuterol Sulfate (Ventolin Aerosols) 2.5 mg INHALATION Q2H PRN PRN PRN Reason: SOB/Wheezing Aspirin (Ecotrin) 81 mg PO DAILY@0800 [facility] Last Admin: 02/17/19 12:35 Dose: 81 mg Documented by: Atorvastatin Calcium (Lipitor) 80 mg PO QHS [facility] Last Admin: 02/16/19 22:11 Dose: 80 mg Documented by: Carvedilol (Coreg) 12.5 mg PO BID [facility] Last Admin: 02/17/19 11:50 Dose: Not Given Documented by: Clopidogrel Bisulfate (Plavix) 75 mg PO DAILY [facility] Last Admin: 02/17/19 11:51 Dose: Not Given Documented by: Cyclobenzaprine HCl (Cyclobenzaprine Hcl) 5 mg PO BID [facility] Last Admin: 02/17/19 12:36 Dose: 5 mg Documented by: Dextrose (D50w Syringe) 0 gm IV X1 PRN; Protocol PRN Reason: Hypoglycemia Docusate Sodium (Colace) 100 mg PO DAILY [facility] Last Admin: 02/17/19 12:36 Dose: Not Given Documented by: [facility] Admin: 02/17/19 12:35 Dose: 100 mg Documented by: Gabapentin (Neurontin) 200 mg PO QHS [facility] Last Admin: 02/16/19 22:12 Dose: 200 mg Documented by: Glucagon () 1 mg IM .X1 PRN PRN Reason: Hypoglycemia Heparin Sodium (Porcine) (Heparin Na) 5,000 unit SC Q12 [facility] Last Admin: 02/17/19 11:51 Dose: Not Given Documented by: Hydralazine HCl (Apresoline) 100 mg PO BID [facility] Last Admin: 02/17/19 11:49 Dose: Not Given Documented by: Hydrocortisone (Hytone) 1 applic TOPICAL BID PRN PRN; Protocol PRN Reason: ITCHING Last Admin: 02/13/19 23:57 Dose: 1 applicatio Documented by: Insulin Glargine (Lantus ([facility])) 22 units SC QHS [facility] Last Admin: 02/16/19 22:12 Dose: 22 u Documented by: Insulin Human Lispro (Humalog Kwikpen ([facility])) 0 unit SC ACHS [facility]; Protocol Last Admin: 02/17/19 13:08 Dose: Not Given Documented by: Isosorbide Mononitrate (Imdur) 60 mg PO QHS [facility] Last Admin: 02/16/19 22:13 Dose: Not Given Documented by: Isosorbide Mononitrate (Imdur) 90 mg PO BREAKFAST [facility] Last Admin: 02/17/19 11:49 Dose: Not Given Documented by: Losartan Potassium (Cozaar) 50 mg PO BID [facility] Last Admin: 02/17/19 11:50 Dose: Not Given Documented by: Magnesium Hydroxide (Milk Of Magnesia) 30 ml PO DAILY PRN PRN Reason: Constipation Last Admin: 02/16/19 22:12 Dose: 30 ml Documented by: Multivit/Ca Carb/B Cmplx/FA/Prenat (Nephrocaps, Renaphro) 1 capsule PO DAILY [facility] Last Admin: 02/17/19 12:36 Dose: 1 capsule Documented by: Nitroglycerin (Nitrostat) 0.4 mg SUBLINGUAL Q5M PRN PRN Reason: CARDIAC/CHEST PAIN Ondansetron HCl (Zofran) 4 mg IV Q8H PRN PRN PRN Reason: NAUSEA/VOMITING Last Admin: 02/15/19 23:30 Dose: 4 mg Documented by: Oxycodone HCl (Oxyir) 5 mg PO Q4H PRN PRN PRN Reason: Moderate Pain (4-6/10) Last Admin: 02/16/19 12:19 Dose: 5 mg Documented by: Pantoprazole Sodium (Protonix) 40 mg PO DAILY [facility] Last Admin: 02/17/19 12:36 Dose: 40 mg Documented by: Polyethylene Glycol (Miralax) 17 gm PO DAILY PRN PRN Reason: Constipation Pramipexole Dihydrochloride (Mirapex) 0.125 mg PO QHS [facility] Last Admin: 02/16/19 22:12 Dose: 0.125 mg Documented by: Sevelamer Carbonate (Renvela) 800 - 3,200 mg PO ACHS [facility] Last Admin: 02/17/19 13:07 Dose: Not Given Documented by: Medical Necessity - Tobacco Use Smoking Status: Former smoker Assessment/Plan All Active Problems (Last Reviewed 01/16/19 @ 10:00 by Louise Donnelly) Chest pain (Acute) 1. chest pain atypical stress test cancelled over the weekend given her history of anomalous left circumflex. no additional cardiac work up planned during this admission 2. ascites recurrent. had 4+ liters removed on 02/13 unable to have a paracentesis due to receiving clopidogrel on 02/16. I do not feel it is necessary at this time. 3. ESRD HD QMWF nephrology following 4. Debility total assist with ambulation with PT last week pt open to SNF upon DC 5. VTE proph: SQ heparin. Code Visit OBSV E&M: 09289 Subsequent observation care L2
[2019-02-17] MEDS: SEVELAMER CARBONATE 800 MG TABLET PO (16:36)
[2019-02-17 16:40] LABS: Bedside Glucose 132 mg/dL (70-110)
[2019-02-17] MEDS: oxyCODONE 5 MG Tablet PO (19:41)
[2019-02-17] MEDS: Gabapentin 100 MG Capsule 200 MG PO (20:45)
[2019-02-17] MEDS: Atorvastatin Calcium 80 MG Tablet PO (20:45)
[2019-02-17] MEDS: Pramipexole Di-HCl 0.125 MG Tablet PO (20:45)
[2019-02-17] MEDS: Insulin Lispro 100 UNIT/ML INSULN.PEN SC (20:46)
[2019-02-17 21:20] LABS: Bedside Glucose 190 mg/dL (70-110)
[2019-02-18] VITALS (8 sets, daily range): BP systolic 108–145; BP diastolic 21–58; PULSE 63–78; RESP 16–18; TEMP 36.6–36.8; O2SAT 96–100
[2019-02-18] MEDS: oxyCODONE 5 MG Tablet PO ×2 (03:01→14:52)
[2019-02-18 06:50] LABS: Bedside Glucose 73 mg/dL (70-110)
[2019-02-18 06:58] LABS: International Normalized Ratio 1.3; Prothrombin Time (Protime)PT. 15.9 SECONDS (11.7-14.9)
[2019-02-18 06:59] LABS: Anion Gap 7 (5-15); BUN 20 mg/dL (7-18); BUN/Creat Ratio 5.5 RATIO (10-20); Calcium,Total 7.7 mg/dL (8.5-10.1); Chloride 96 mmol/L (98-107); Creatinine, Serum 3.63 mg/dL (0.55-1.02); EST Glomerular Filtration Rate 13 mL/min (>60); Est Glom Filt Rate - Afr Amer 16 mL/min (>60); Estimated Creatinine Clearance 11.86 ml/min; Glucose 68 mg/dL (74-106); Potassium 4.5 mmol/L (3.5-5.1); Sodium Level 132 mmol/L (136-145)
[2019-02-18] MEDS: SEVELAMER CARBONATE 800 MG TABLET PO ×3 (08:23→17:11)
[2019-02-18] MEDS: Docusate Sodium 100 MG Capsule PO (08:26)
[2019-02-18] MEDS: cycloBENZAPRine HCl 5 MG TABLET PO (08:26)
[2019-02-18] MEDS: Heparin Injection (Vial) 5,000 UNIT/ML VIAL 5000 UNIT SC (08:26)
[2019-02-18] MEDS: Gabapentin 100 MG Capsule PO ×2 (08:26→17:11)
[2019-02-18] MEDS: Pantoprazole Sodium 40 MG Tablet PO (08:26)
[2019-02-18] MEDS: Aspirin E.C. 81 MG Tablet PO (08:26)
[2019-02-18] MEDS: Folic Acid/Vitamin B Comp W-C 1 Capsule 1 CAP PO (08:27)
--- NOTE | 2019-02-18 09:26 | PCM.PN.REN ---
Subjective: feeling better today. Still with abdominal distension from ascites. Repeat paracentesis canceled due to plavix. Denies SOB. tolerating diet. - Physical Exam General: Alert, Oriented x3, Cooperative, No apparent distress HEENT: PERRLA, EOMI Lungs: Clear to auscultation Cardiovascular: Regular rate, Murmur Abdomen: Bowel Sounds Present, Soft, Non Tender, Distended Extremities: Edema Psych/Mental Status: Normal Affect, Appropriate, Alert and oriented to time, place, person, mood and affect Vital Signs Temp Pulse Resp BP Pulse Ox 97.8 F 67 16 142/58 H 100 02/18/19 08:35 02/18/19 08:35 02/18/19 08:35 02/18/19 08:35 02/18/19 08:35 Oxygen Flow Rate (L/min) 3 Oxygen Delivery Method Nasal Cannula Weight: 84.5 kg Body Mass Index (BMI) 30.9 Finger Stick Blood Glucose 99 Intake and Output for Last 24 Hours 02/16/19 02/17/19 02/18/19 23:59 23:59 23:59 Intake Total 325 / 425 100 / 100 Output Total 0 / 0 0 / 0 Balance 325 / 425 100 / 100 Laboratory Tests Past 24 Hrs 02/18/19 02/18/19 05:50 05:50 PT 15.9 H INR 1.3 Sodium 132 L Potassium 4.5 Chloride 96 L Carbon Dioxide 29.0 Anion Gap 7 BUN 20 H Creatinine 3.63 H Estim Creat Clear Calc 11.86 Est GFR (MDRD) Af Amer 16 L Est GFR (MDRD) Non-Af 13 L BUN/Creatinine Ratio 5.5 L Glucose 68 L Calcium 7.7 L POC Glucose 02/18/19 02/17/19 02/17/19 06:38 20:35 16:32 POC Glucose 73 190 H 132 H 02/17/19 12:54 POC Glucose 87 Medical Necessity - Tobacco Use Smoking Status: Former smoker Assessment/Plan All Active Problems (Last Updated 02/17/19 @ 15:35 by Chaim Jauregui DO) Chest pain (Acute) 1. ESRD HD MWF. 2. Anemia [facility] on dialysis 3. CP hx CAD primary service mgmt 4. HTN BP stable 5. cirrhosis, ascites s/p paracentesis last week. 6. DM2 primary service mgmt
--- NOTE | 2019-02-18 09:42 | CASEMGMT ---
Addendum entered by Marylou Orozco 02/18/19 09:47: MARGO also notified patient. Marylou WHITTEN Original Note: MARGO let patient know that [facility] can accept her and we are waiting on insurance. MARGO then received a call from [facility] and she got approval. MARGO notified physician and he will send patient today. Marylou WHITTEN
--- NOTE | 2019-02-18 10:48 | PCM.TXEXTCAR ---
- Diet 02/15/19 12:12 Diet: Renal: 60 gm protein Is pt able to select menu?: Yes - Routine Orders/Code Status Routine Lab Work: CBC Code Status: Full Code - Wound(s) BLE Wound Type: water blisters Right Abdomen Wound Type: Puncture - Therapies Physical Therapy: Eval and Treat Occupational Therapy: Eval and Treat - Allergies/Procedures Done in Hospital Allergies/Adverse Reactions: Allergies lisinopril Allergy (Severe, Verified 02/13/19 15:07) Angioedema nebivolol HCl [From Bystolic] Adverse Reaction (Severe, Verified 02/13/19 15:07) bradycardia BRADYCARDIA Procedures: Stress Test - Type of Care/Length of Stay Estimated LOS: Convalescent Care Less Than 30 days Type of Care Needed: Skilled Rehab Potential: Fair Prognosis: Fair - Additional Orders/Day of Discharge Day of Discharge: 02/18/19 - Dietary and Speech Recommendations Dietitian Recommendations/Changes: Suggest diet change to low sodium/low potassium diet with 1500 fluid restriction--pro restriction not indicated as pt received HD 3 times per week. - Follow Up Care Primary Care Physician: Davy Coleman MD [Primary Care Provider] - Within 2 Weeks Please Follow Up With: Timothy Frye MD When: 05/06/19 [facility] When: Sunday, Sunday, Sunday.
--- NOTE | 2019-02-18 10:52 | DS.PCM_ITS ---
Discharge Date and Diagnosis - Problem List Patient Problems: Active and Suspected Problems (Last Updated 02/17/19 @ 15:35 by Chaim Jauregui DO) Chest pain (Acute) Date of Admission: 02/13/19 Date of Discharge: 02/18/19 - Secondary Discharge Diagnosis Chronic Problems (Last Updated 02/17/19 @ 15:35 by Chaim Jauregui DO) History of abdominal paracentesis (Chronic 09/06/18) History of GI bleed (Chronic) History of non-ST elevation myocardial infarction (NSTEMI) (Chronic 07/05/16) Atherosclerotic heart disease of cahto coronary artery without angina pectoris (Chronic) Stented coronary artery (Chronic) Cutting Balloon and TAMI (3.0X18 mm Xience) Proximal LAD 04/18/2012; Rotational atherectomy to proximal, id and distal RCA with two overlapping 4.0 X 38 Synergy TAMI ([facility] main) Hypervolemia (Chronic) Ascites (Chronic) Pancytopenia (Chronic) Other specified peripheral vascular diseases (Chronic) Afib (Chronic) Congenital coronary artery anomaly (Chronic) Bradycardia (Chronic) CAD (coronary artery disease) (Chronic) Diabetes mellitus, type II (Chronic) Hyperlipidemia (Chronic) Hypothyroidism (Chronic) Anemia in chronic kidney disease (Chronic) Hypertension (Chronic) End stage renal disease on dialysis (Chronic) Hospital Course and Treatment Imaging Results: 02/21/19 08:00 Paracentesis with US [US] Routine Clinical Impression(s) from Imaging Studies Chest X-Ray 02/13/19 15:33 IMPRESSION: Increased markings at the lung bases suggestive of atelectasis and/or scarring worse on the right base. Electronically Signed: Eric Mckay, at 15:55 EDT , Service support , Wrist X-Ray 02/14/19 10:53 IMPRESSION: Generalized osteopenia. Degenerative changes as detailed above. Arterial calcifications noted in the distal forearm, wrist, and hand. There is no evidence of fracture or dislocation. Electronically Signed: Phillip Roy MD at 18:22 EDT , Service support , Chest X-Ray 02/14/19 14:18 IMPRESSION: 1. Mild cardiomegaly. 2. Calcified plaques of the aortic arch. 3. Old calcified granuloma of the left lung base. 4. Old healed fracture of the right sixth rib. 5. Surgical clips are seen in the left axilla. 6. No acute cardiopulmonary disease process is seen. Electronically Signed: Phillip Roy MD at 18:24 EDT , Service support , Anuradha Crawley: nephrology. Operations: None, - Procedures: Dialysis, Stress test Summary of Care Provided: The patient is a 74 year old F presents with severe chest pain. Patient with known cardiac work-up, including rest portion of a stress test that was negative. Given her prior history of anomalous left circumflex, no additional cardiac work-up is planned as patient would not be an ideal candidate for that. Patient remained chest pain-free during the remainder of her hospitalization. Patient did have a paracentesis performed on the which removed 4 L. Patient did have ascites but it was not taut and I did not feel that she required further paracentesis at this time she had a done several days prior. Patient is on clopidogrel which previous hospitalist ordered the paracentesis is unaware of the time restraints associated with clopidogrel and I have the procedure performed at this institution. Patient's last stent was put in 2 years ago so patient is able to go off of the clopidogrel for. Time the patient may be off of it for 5 days before undergoing paracentesis. Once again, I do not feel that a paracentesis is necessary at this time. Patient does require further paracentesis to be done as outpatient but patient does have removal of large quantity of fluid, greater than 5 L, the patient will require albumin replacement along with that. Patient was seen by therapy and I did recommend skilled needs as patient was total assist with ambulation. Patient was seen in consultation by nephrology and patient did have hemodialysis but she was here and she tolerated that plan is patient to be discharged to longterm facility in stable condition. Patient did have an infiltrated IV in the right antecubital knee and did have some bruising associated with that. No clinical evidence of SVT. Supportive management. Reassurance provided to the patient. Patient did have complaints of numbness in her first 4 fingers. Has concern about it being a carpal tunnel and I did advise cock-up wrist splint at night only on her right wrist as patient states that she has no symptoms in her left hand. There is unclear additionally this is carpal tunnel but I told her that the cock-up wrist splint would not be harmful though it may not help her if it is not carpal tunnel. Patient Problems: Active and Suspected Problems (Last Updated 02/17/19 @ 15:35 by Chaim Jauregui DO) Chest pain (Acute) - Physical Exam General: Alert, No apparent distress HEENT: Atraumatic, Normocephalic Oral: Moist Mucosa, No Gingival or Mucosal Lesions/ Ulcerations Abdomen: Distended - not taut, Obese Extremities: No clubbing, No edema Vital Signs Temp Pulse Resp BP Pulse Ox 36.6 C 67 16 142/58 H 100 02/18/19 08:35 02/18/19 08:35 02/18/19 08:35 02/18/19 08:35 02/18/19 08:35 Oxygen Flow Rate (L/min) 3 Oxygen Delivery Method Nasal Cannula Weight: 84.5 kg Body Mass Index (BMI) 30.9 Finger Stick Blood Glucose 99 Intake and Output for Last 24 Hours 02/16/19 02/17/19 02/18/19 23:59 23:59 23:59 Intake Total 325 / 425 100 / 100 Output Total 0 / 0 0 / 0 Balance 325 / 425 100 / 100 Laboratory Tests Past 24 Hrs 02/18/19 02/18/19 05:50 05:50 PT 15.9 H INR 1.3 Sodium 132 L Potassium 4.5 Chloride 96 L Carbon Dioxide 29.0 Anion Gap 7 BUN 20 H Creatinine 3.63 H Estim Creat Clear Calc 11.86 Est GFR (MDRD) Af Amer 16 L Est GFR (MDRD) Non-Af 13 L BUN/Creatinine Ratio 5.5 L Glucose 68 L Calcium 7.7 L POC Glucose 02/18/19 02/17/19 02/17/19 06:38 20:35 16:32 POC Glucose 73 190 H 132 H 02/17/19 12:54 POC Glucose 87 Discharge Diet: Renal Diet Discharge Activity: Return to Normal Activity Home Medications: Medications to take at Discharge Cholecalciferol (Vitamin D3) [Vitamin D3] 5,000 unit PO MOWEFR 07/27/17 pantoprazole 40 mg tablet,delayed release 40 mg PO DAILY 08/21/17 Atorvastatin Calcium [Lipitor] 80 mg PO QHS 12/26/17 Losartan Potassium [Cozaar] 50 mg PO BID 12/26/17 Aspirin E.C. [Ecotrin] 81 mg PO DAILY@0800 #1 02/14/18 Carvedilol 12.5 mg PO BID 05/10/18 Insulin Lispro [Humalog] See Protocol SC TIDCM 05/10/18 Insulin Glargine [Lantus SoloStar Pen] 22 units SC QHS 05/31/18 Cyclobenzaprine HCl 5 mg PO BID 06/11/18 B Complex W-C No.20/Folic Acid [Virt-Caps Softgel] 1 mg PO UD 09/20/18 Isosorbide Mononitrate 90 mg PO BREAKFAST 09/20/18 proMETHazine tablet [Phenergan tablet] 12.5 mg PO DAILY PRN PRN 09/20/18 Docusate Sodium [Colace] 100 mg PO DAILY 02/13/19 Gabapentin [Neurontin] 100 mg PO BID 02/13/19 Gabapentin [Neurontin] 200 mg PO QHS 02/13/19 Hydralazine HCl 100 mg PO BID 02/13/19 Isosorbide Mononitrate [Imdur] 60 mg PO QHS 02/13/19 Ropinirole HCl [Requip] 0.25 mg PO QHS 02/13/19 Sevelamer Carbonate 3,200 mg PO .COMPLEX 02/13/19 Clopidogrel Bisulfate [Plavix] 75 mg PO DAILY #0 02/18/19 Oxycodone [Oxyir] 5 mg PO Q6H PRN 3 Days #12 tab 02/18/19 Following Prescrptions Were Given to Patient: Oxycodone [Oxyir] 5 mg PO Q6H PRN 3 Days #12 tab PRN Reason: Moderate Pain (4-6/10) Prescription Printed Primary Care Physician: Davy Coleman MD [Primary Care Provider] - Within 2 Weeks Please Follow Up With: Timothy Frye MD When: 05/06/19 Please Follow Up With: [facility] When: Sunday, Sunday, Sunday. Patient Instructions: CHEST PAIN, NonCardiac Disposition: [facility] facility Minutes spent on discharge:: 36 Patient Condition:: Fair Medical Necessity - Tobacco Use Smoking Status: Former smoker Meaningful Use Info Meaningful Use Diagnoses (Choose all that apply): None applicable Code Visit OBSV E&M: 42701 Observation care discharge
--- NOTE | 2019-02-18 10:52 | CASEMGMT ---
Right cock-up splint obtained from the ED for pt at this time per Dr. Jauregui request. Form completed and James RN will place splint on pt and have pt sign form prior to discharge. [place] JESUS CM
[2019-02-18 11:40] LABS: Bedside Glucose 119 mg/dL (70-110)
--- NOTE | 2019-02-18 13:26 | CASEMGMT ---
Faxed orders to [facility] [place]. SW called [facility] to set up transport for patient. They were able to get [facility] amb[facility]lette today between 5 and 530p. MARGO notified RN, patient, and studio operations engineer in charge. MARGO also called Lynda at [facility] and let her know. SW completed a PASRR as patient was observation status. Plan: d/c to [facility] [place] under skilled level of care on a PASRR as she was observation status. [facility] will transport via van between 5 and 530p. Marylou RAMIREZ [employer]
--- NOTE | 2019-02-18 15:57 | NURSING ---
report called to [facility] in [place]
[2019-02-18 17:46] LABS: Bedside Glucose 145 mg/dL (70-110)
== END 2019-02-18 10:50 | disposition skilled nursing facility (03) ==
LOC: ED 16:12 → PCU 16:56
PROVIDERS: Family Medicine; Internal Medicine; Nurse Practitioner Family; Admitting Provider Student in an Organized Health Care Education/Training Program; Emergency Provider Emergency Medicine; Family Provider Family Medicine; PCP Family Medicine; Referring Provider Student in an Organized Health Care Education/Training Program
DX: R07.89 Other chest pain (principal); M79.89 Other specified soft tissue disorders; I25.10 Atherosclerotic heart disease of native coronary artery without angina pectoris; E11.22 Type 2 diabetes mellitus with diabetic chronic kidney disease; D63.1 Anemia in chronic kidney disease; E03.9 Hypothyroidism, unspecified; I12.0 Hypertensive chronic kidney disease with stage 5 chronic kidney disease or end stage renal disease; N18.6 End stage renal disease; I25.2 Old myocardial infarction; D61.818 Other pancytopenia; I48.0 Paroxysmal atrial fibrillation; K74.60 Unspecified cirrhosis of liver; R18.8 Other ascites; R94.31 Abnormal electrocardiogram [ECG] [EKG]; S50.01XA Contusion of right elbow, initial encounter; X58.XXXA Exposure to other specified factors, initial encounter; I87.2 Venous insufficiency (chronic) (peripheral); R09.89 Other specified symptoms and signs involving the circulatory and respiratory systems; I95.9 Hypotension, unspecified; R20.0 Anesthesia of skin; M79.601 Pain in right arm; E78.5 Hyperlipidemia, unspecified; Q24.9 Congenital malformation of heart, unspecified; Z79.899 Other long term (current) drug therapy; Z79.4 Long term (current) use of insulin; Z79.82 Long term (current) use of aspirin; Z79.02 Long term (current) use of antithrombotics/antiplatelets; Z99.2 Dependence on renal dialysis; Z95.5 Presence of coronary angioplasty implant and graft; Z87.891 Personal history of nicotine dependence
CPT/HCPCS: 36415; 36600; 49083; 71045; 73100; 78452; 80048; 82803; 82962; 83735; 84484; 84550; 85025; 85610; 85730; 90937; 93005; 93017; 93931; 93971; 96361; 96372; 96374; 96375; 96376; 97110; 97162; 97166; 97530; 99218; 99285; A9500; J7030; J7040; A4216; G0257; G0378; J2405; J2785

== ENCOUNTER 2019-02-21 14:47 | Emergency (ER) | payer MEDICARE, SELFPAY ==
[2018-06-11 11:00] VITALS: BMI 27.1
[2019-02-13 18:07] VITALS: BMI 30.9
[2019-02-21 14:50] VITALS: BP 125/56; PULSE 72; RESP 16; TEMP 36.4; O2SAT 97; BMI 32.8
--- NOTE | 2019-02-21 15:16 | RAD_ITS ---
STUDY: X-RAY - RIGHT HAND REASON FOR EXAM: Female, 74 years old. Pain. TECHNIQUE: 3 view(s) of the hand. COMPARISON: None. FINDINGS: Normal radiocarpal articulation. Normal distal radioulnar joint. Normal visualized carpal bones. Normal carpal articulations Normal carpometacarpal articulation of the thumb. Normal second through fifth carpometacarpal joints. Normal metacarpi. There is degenerative arthrosis of the metacarpophalangeal (MCP) joints. Normal interphalangeal joint of the thumb. Normal proximal and distal phalanges of the thumb. Normal metacarpophalangeal joints of the second through fifth fingers. There is diffuse articular joint space narrowing of the proximal and distal interphalangeal joints of the second through fifth fingers, but without erosive changes or periarticular soft tissue swelling. Normal phalanges of the second through fifth fingers. Diffuse soft tissue swelling. Vascular calcification. RAD/Hand Min 3 Views IMPRESSION: Degenerative changes. Soft tissue swelling. Electronically Signed: Eric Mckay, at 15:45 EDT , Service support ,
[2019-02-21] MEDS: HYDROcodone Bitartrate/Apap 5/325 Tablet PO (15:23)
--- NOTE | 2019-02-21 15:37 | ED.DCSUM_ITS ---
- ER Visit Summary Date of Service: 02/21/19 Chief Complaint: Hand pain History of Present Illness: The patient is a 74 F with right hand pain. The pain started several days ago when she was in the hospital. She was evaluated in the hospital and found to have patent and normal arteries. She also had alvarado nt and compressible deep veins. No evidence of DVT. Superficial veins are patent and compressible. No evidence of superficial thrombophlebitis. She does have a nonvascular heterogenous structure in the right medial antecubital space which is supposed to represent a hematoma. The pain is in her right thumb, pointer, middle, and ring finger. She denies any weakness or other associated symptoms. Denies trauma. Denies any neck pain. Denies any other symptoms. The hospitalist thought that she may have carpal tunnel syndrome possibly. Physical Examination: Inspection unremarkable. She does have some swelling in her medial antecubital fossa. This is nontender. She does report tenderness to her first 4 digits on the right hand. No weakness. Good range of motion. Skin is otherwise normal. Test Results: We will check x-rays. Emergency Department Course and Treatment: Patient was treated with pain medicine. Check x-rays. No indication to repeat vascular testing. X-ray showed soft tissue swelling but were otherwise normal. Patient appears to be neurovascularly intact. Her distribution of pain is in the palmar median nerve pattern. I suspect she may have carpal tunnel syndrome. Patient should follow-up as an outpatient for this. Treatment Plan: As above Disposition: Discharge Impression: 1. Right hand pain This note was generated with Flo[employer] dictation software. It may contain incorrect words, spelling, and punctuation that were not noted in review of the chart prior to signing ED Disposition - Plan for ED Patient: Referrals: Davy Coleman MD [Primary Care Provider] -
--- NOTE | 2019-02-21 15:53 | ED.DEP ---
ED Disposition - Plan for ED Patient: Instructions: Carpal Tunnel Referrals: Davy Coleman MD [Primary Care Provider] -
[2019-02-21 16:44] VITALS: RESP 16
--- NOTE | 2019-02-21 16:45 | ED.RN ---
REVIEWED D/C INSTRUCTIONS, FOLLOW UP CARE, AND S/S THAT WOULD WARRANT A RETURN TO THE ED WITH PT. PT VERBALIZED AN UNDERSTANDING AND DENIES FURTHER QUESTIONS FOR THIS RN. PT SKIN P/W/D, RESP EVEN AND UNLABORED, PT A&O X 3, NO DISTRESS NOTED. PT ASSISTED OUT OF ED IN WHEELCHAIR.
--- NOTE | 2019-02-21 16:52 | ED.RN ---
ATTEMPTED TO GIVE REPORT TO NURSE AT [facility]. NO ANSWER.
== END 2019-02-21 16:53 | disposition home or self-care (01) ==
LOC: ED 15:33
PROVIDERS: Emergency Provider Emergency Medicine; Family Provider Family Medicine; PCP Family Medicine
DX: M79.641 Pain in right hand (principal); Q24.5 Malformation of coronary vessels; I25.10 Atherosclerotic heart disease of native coronary artery without angina pectoris; I25.2 Old myocardial infarction; E11.22 Type 2 diabetes mellitus with diabetic chronic kidney disease; I12.0 Hypertensive chronic kidney disease with stage 5 chronic kidney disease or end stage renal disease; N18.6 End stage renal disease; E78.00 Pure hypercholesterolemia, unspecified; I48.91 Unspecified atrial fibrillation; E03.9 Hypothyroidism, unspecified; Z86.2 Personal history of diseases of the blood and blood-forming organs and certain disorders involving the immune mechanism; Z87.19 Personal history of other diseases of the digestive system; Z79.82 Long term (current) use of aspirin; Z79.02 Long term (current) use of antithrombotics/antiplatelets; Z79.4 Long term (current) use of insulin; Z79.899 Other long term (current) drug therapy; Z87.891 Personal history of nicotine dependence
CPT/HCPCS: 73130; 99285

== ENCOUNTER → 2019-03-06 11:35 | Outpatient (CLI) | payer MEDICARE, SELFPAY ==
[2018-06-11 11:00] VITALS: BMI 27.1
[2019-02-21 14:50] VITALS: BMI 32.8
--- NOTE | 2019-03-06 11:36 | US_ITS ---
PROCEDURE: Ultrasound guided paracentesis. DATE OF EXAMINATION: March 06, 2019. INDICATION: Female, 74 years old. Ascites. PHYSICIAN: Eric Mckay M.D. TECHNIQUE: The risks, benefits, and alternatives to the procedure were explained to the patient. The specific risks of bleeding, infection, and damage to bowel were detailed and accepted. Witnessed informed consent was obtained. The abdomen was ultrasonographically surveyed. An appropriate pocket of fluid was identified at the right lower quadrant. The skin were cleaned and prepped in the usual sterile fashion. Using ultrasound guidance, the peritoneal cavity was accessed with a 5-Honduran paracentesis needle/catheter system. The trocar was removed. A total of 4150 ml of ron-colored fluid were removed from the peritoneal cavity. The catheter was removed and a sterile dressing was applied. The procedure was well tolerated. US/Paracentesis with US IMPRESSION: Ultrasound guided paracentesis. Electronically Signed: Eric Mckay, at 13:48 EDT , Service support ,
[2019-03-06 11:45] LABS: International Normalized Ratio 1.4; Prothrombin Time (Protime)PT. 17.2 SECONDS (11.7-14.9)
[2019-03-06 11:47] LABS: Partial Thromboplast Time 37.1 Seconds (24.1-36.2)
[2019-03-06 12:38] VITALS: BP 142/55; BP 148/55; BP 148/57; PULSE 68; PULSE 69; PULSE 74; RESP 18; O2SAT 98; O2SAT 99
== END ==
PROVIDERS: Family Provider Family Medicine; PCP Family Medicine; Referring Provider Nurse Practitioner Family; Visit Provider Nurse Practitioner Family
DX: E11.22 Type 2 diabetes mellitus with diabetic chronic kidney disease (principal); N18.9 Chronic kidney disease, unspecified; R18.8 Other ascites
CPT/HCPCS: 36415; 49083; 85610; 85730

== ENCOUNTER 2019-03-14 11:03 | Inpatient (IN) | payer MEDICARE, SELFPAY ==
[2018-06-11 11:00] VITALS: BMI 27.1
[2019-03-14] VITALS (12 sets, daily range): BP systolic 105–141; BP diastolic 33–52; PULSE 48–76; RESP 16–20; TEMP 36.3–36.7; O2SAT 95–100; BMI 36.3; BMI 34.5; BMI 34.6
--- NOTE | 2019-03-14 11:42 | CT_ITS ---
STUDY: CT ABDOMEN AND PELVIS WITHOUT CONTRAST REASON FOR EXAM: Female, 74 years old. Abdominal pain. Generalized weakness. One-week history of bloody stool. Low hemoglobin. RADIATION DOSAGE (If Supplied By Facility): CTDIvol = ( 21.40 ) mGy, DLP = ( 1138.90 ) mGycm TECHNIQUE: Transaxial images were obtained from the dome of the diaphragm to the symphysis pubis without oral contrast, and without intravenous contrast. Sagittal and coronal images were reconstructed. Individualized dose optimization techniques were used for this CT. COMPARISON: Comparison is made with prior examination dated September 20, 2018. FINDINGS: Stable mild degree of scarring at the lung bases. Calcified granuloma in the left lower lobe. Coronary artery calcification. Cardiomegaly. Diffuse ascites. Normal liver. Normal gallbladder and extrahepatic biliary system. There are multiple benign calcified granulomata of the spleen. Normal pancreas. Normal bilateral adrenal glands. Marked atrophy of both kidneys with diffuse sclerosis of the intrarenal arterial branches. Normal visualized stomach. Normal small intestine. There are multiple colonic diverticula consistent with diverticulosis. There are surgical clips in the region of the appendix consistent with a prior appendectomy. There is diffuse atherosclerotic calcification of the abdominal aorta and major visceral branches including the splenic artery, the intrahepatic arteries as well as renal arteries and celiac and superior mesenteric arteries., without a demonstrated aneurysm. Normal inferior vena cava. Normal retroperitoneum. Normal urinary bladder. There is absence of the uterus consistent with a prior hysterectomy. Diffuse increased markings in the subcutaneous fat suggestive of subcutaneous edema and possible anasarca. There are diffuse degenerative changes of the visualized lumbar spine. CT/Abdomen/Pelvis without Cont IMPRESSION: Moderate degree of diffuse abdominal and pelvic ascites with subcutaneous edema and possible anasarca. Severe atherosclerosis of the aorta and the visceral vessels as described. Marked degree of the bilateral renal atrophy. Electronically Signed: Eric Mckay, at 13:02 EDT , Service support ,
[2019-03-14 12:07] LABS: Absolute Neutrophil Count 4.2 X10^3/uL (2.0-7.7); Basophil# 0.06 X10^3/uL; Basophil% 0.9 % (0-1); Eosinophil# 0.26 X10^3/uL; Hematocrit 28.2 % (37-47); Hemoglobin 8.4 g/dL (12.0-15.0); Lymphocyte % 20.2 % (19-41); Mean Corp Hgb Conc 29.8 g/dL (32-36); Mean Corpuscular Hgb 29.8 pg (27.0-32.0); Monocyte# 0.56 X10^3/uL; Monocyte% 8.7 % (0-10); NRBC Flagged by Analyzer 0 % (0-5); Neutrophil # 4.23 X10^3/uL (2.7-7.7); Neutrophil % 65.7 % (47-70); Platelet Count 118 K/mm3 (150-450); RBC Distribution Width CV 17.3 % (11.6-14.6); RBC Distribution Width SD 61.8 fl (35.1-43.9); Red Blood Count 2.82 M/mm3 (4.2-5.4); White Blood Count 6.4 K/mm3 (4.4-11.0)
--- NOTE | 2019-03-14 12:11 | ED.VIS.GEN ---
History of Present Illness Chief Complaint: GI Bleed Narrative: 74-year-old female presents with a GI bleed. [facility] She has had dark stool for the past week and her hemoglobin has been falling. She has had 3- Hemoccult test that have been positive. She has no known prior history of GI bleed. She does have slight left lower quadrant abdominal pain as well. History is somewhat limited because of her dementia. Prior similar symptoms: Yes Recent Illness/Hospitalization: Yes Past Medical History - Allergies and Home Meds Allergies/Adverse Reactions: Allergies lisinopril Allergy (Severe, Verified 03/14/19 11:04) Angioedema [facility] Adverse Reaction (Severe, Verified 03/14/19 11:04) bradycardia BRADYCARDIA Primary Care Physician: Davy Coleman MD [Primary Care Provider] - Prior records reviewed: Yes Surgical History: appendectomy, cholecystectomy, hysterectomy, total knee arthroplasty, - - Left upper extremity fistula, back surgery, colon resection with history of diverticulitis, GI bleed, right knee surgery, right total knee replacement, right foot surgery, left knee surgery, left foot surgery, PCI. Smoking Status: Former smoker - Family History Maternal Family History: Family History (Last Reviewed 02/13/19 @ 17:11 by AYDIN Funez) Sister Diabetes Heart disease Hypertension Anemia Family History: Reports: Cancer - uterine Paternal Family History: Family History (Last Reviewed 02/13/19 @ 17:11 by AYDIN Funez) Sister Diabetes Heart disease Hypertension Anemia Family History: Reports: Cancer Sibling Family History: Family History (Last Reviewed 02/13/19 @ 17:11 by AYDIN Funez) Sister Diabetes Heart disease Hypertension Anemia Family History: Reports: Diabetes Review of Systems General: Reports: Malaise. Denies: Chills, Fever, Sweats Eyes: Denies: Visual changes - bilaterally, Diplopia ENT: Denies: Rhinorrhea, Sore throat Cardiovascular: Denies: Chest pain, Palpitations Respiratory: Denies: Dyspnea, Cough, Dyspnea on exertion Gastrointestinal: Reports: Abdominal pain, Nausea, Melena. Denies: Vomiting, Diarrhea, Hematochezia Genitourinary: Denies: Dysuria, Hematuria, Frequency Musculoskeletal: Denies: Back pain, Extremity Pain Skin: Denies: Rash, Wounds Neurological: Denies: Headache, Weakness, Numbness Physical Exam Vital Signs/Narrative: Vital Signs Temp Pulse Resp BP Pulse Ox 03/14/19 11:05 97.9 F 51 L 18 141/49 H 97 General: Well nourished, Obese Head: Normocephalic, Atraumatic Eyes: Perrl, EOMI ENT: No rhinorrhea, Dry mucous membranes Neck: Supple, Nontender Cardiovascular: Regular rate, Regular rhythm, No murmurs Respiratory: No distress, CTA bilaterally, Chest nontender Abdomen: Soft, Nontender, Nondistended, Normal bowel sounds Back: Nontender, Normal Inspection Extremities: Nontender, No edema Skin: Normal color, No rash Neurological: Alert, Oriented x3, Cranial nerves II-XII grossly intact, Normal Strength, Normal Sensation Psychological: Normal affect, Normal Mood Diagnostic/Tx/Re-eval - Medical Decision Making Hemoglobin is lower than baseline and she has had 4+ stools for Hemoccult. Abdominal CT reveals anasarca and ascites but no obvious diverticulitis. She has remained hemogram weekly stable. She has chronic renal failure and multiple other abnormalities on her studies performed today. I do feel she meets criteria for full admission. She will be admitted to PCU. ED Disposition - Plan for ED Patient: Disposition: Acute Care Hospital [facility] Diagnosis: GI bleed, Chronic renal failure Referrals: Davy Coleman MD [Primary Care Provider] -
[2019-03-14 12:28] LABS: AST(SGOT) 14 U/L (15-37); Alanine Aminotransfer ALT/SGPT 9 U/L (13-56); Albumin, Serum 2.2 g/dL (3.2-5.0); Alkaline Phosphatase 148 U/L (45-117); Anion Gap 7 (5-15); BUN 47 mg/dL (7-18); BUN/Creat Ratio 10.6 RATIO (10-20); Calcium,Total 8.8 mg/dL (8.5-10.1); Chloride 91 mmol/L (98-107); Creatinine, Serum 4.45 mg/dL (0.55-1.02); EST Glomerular Filtration Rate 10 mL/min (>60); Est Glom Filt Rate - Afr Amer 12 mL/min (>60); Estimated Creatinine Clearance 9.68 ml/min; Globulin 4.5 g/dL (2.2-4.2); Glucose 101 mg/dL (74-106); Lipase 124 U/L (73-393); Potassium 5.7 mmol/L (3.5-5.1); Protein, Total 6.7 g/dL (6.4-8.2); Sodium Level 127 mmol/L (136-145)
--- NOTE | 2019-03-14 13:31 | HP.PCM_ITS ---
History of Present Illness Date of Admission: 03/14/19 Chief Complaint: lower GI bleed The patient is a 74 year old F with past medical history as listed which includes cirrhosis due to nonalcoholic steatohepatitis and history of lower GI bleed. She was admitted through the ED on 03/14/2019 with a complaint of rectal bleeding. Patient states she went to [place] for her [id number]'s about a week ago. While states she noticed that she was having bright red bleeding per rectum. This was painless. It continued until she returned to her [facility] in [place]. She states while here they were checking her stool for occult blood as she started having dark stools. This was repeatedly positive. Today she started feeling very lightheaded and weak so they decided to bring her into the ED. She had no assisted palpitations or dizziness, abdominal pain, diarrhea or vomiting. Review of systems was otherwise negative. She had a colonoscopy done by Dr. Sinclair recently which showed diverticuli. On admission, CBC showed hemoglobin of 8.4 with baseline of around 9. Chemistry showed sodium of 127 which is chronically low and potassium of 5.7. Creatinine is 4.45. CT of the abdomen and pelvis showed moderate degree of diffuse abdominal and pelvic ascites with subcutaneous edema and possible anasarca, bilateral renal atrophy and severe atherosclerosis of the aorta and visceral vessels. Patient does have a history of ESRD and has not had her dialysis today. She has been admitted to be managed for lower GI bleed. General surgery was consulted from ED. [] Past Medical History Past Medical History (Chronic Problems): Chronic Problems (Last Updated 02/17/19 @ 15:35 by Chaim Jauregui DO) Chronic renal failure (Chronic) History of abdominal paracentesis (Chronic 09/06/18) History of GI bleed (Chronic) History of non-ST elevation myocardial infarction (NSTEMI) (Chronic 07/05/16) Atherosclerotic heart disease of [place] coronary artery without angina pectoris (Chronic) Stented coronary artery (Chronic) Cutting Balloon and TAMI (3.0X18 mm Xience) Proximal LAD 04/18/2012; Rotational atherectomy to proximal, id and distal RCA with two overlapping 4.0 X 38 Synergy TAMI ([facility] main) Hypervolemia (Chronic) Ascites (Chronic) Pancytopenia (Chronic) Other specified peripheral vascular diseases (Chronic) Afib (Chronic) Congenital coronary artery anomaly (Chronic) Bradycardia (Chronic) CAD (coronary artery disease) (Chronic) Diabetes mellitus, type II (Chronic) Hyperlipidemia (Chronic) Hypothyroidism (Chronic) Anemia in chronic kidney disease (Chronic) Hypertension (Chronic) End stage renal disease on dialysis (Chronic) Medical History: Medical History (Last Updated 02/17/19 @ 15:35 by Chaim Jauregui DO) History of GI bleed (Chronic) Z87.19 History of non-ST elevation myocardial infarction (NSTEMI) (Chronic) Onset Date: 07/05/16 I25.2 Atherosclerotic heart disease of [place] coronary artery without angina pectoris (Chronic) I25.10 Ascites (Chronic) R18.8 Pancytopenia (Chronic) D61.818 Other specified peripheral vascular diseases (Chronic) I73.89 Afib (Chronic) I48.91 Congenital coronary artery anomaly (Chronic) Q24.5 Bradycardia (Chronic) R00.1 CAD (coronary artery disease) (Chronic) I25.10 Diabetes mellitus, type II (Chronic) E11.9 Hyperlipidemia (Chronic) E78.5 Hypothyroidism (Chronic) E03.9 Anemia in chronic kidney disease (Chronic) N18.9, D63.1 Hypertension (Chronic) I10 End stage renal disease on dialysis (Chronic) N18.6, 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 History of hysterectomy Z90.710 Skin cancer C44.90 mouth/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 [Ecotrin] 81 mg PO DAILY@0800 #1 02/14/18 Carvedilol 12.5 mg PO BID 05/10/18 Insulin Lispro [Humalog] See Protocol SC TIDCM 05/10/18 Insulin Glargine [Lantus SoloStar 11 units SC QHS 05/31/18 Pen] Cyclobenzaprine HCl 5 mg PO BID 06/11/18 B Complex W-C No.20/Folic Acid 1 mg PO UD 09/20/18 [Virt-Caps Softgel] Isosorbide Mononitrate 90 mg PO BREAKFAST 09/20/18 proMETHazine tablet [Phenergan 12.5 mg PO DAILY PRN PRN 09/20/18 tablet] Docusate Sodium [Colace] 100 mg PO DAILY 02/13/19 Gabapentin [Neurontin] 100 mg PO BID 02/13/19 Gabapentin [Neurontin] 200 mg PO QHS 02/13/19 Hydralazine HCl 100 mg PO BID 02/13/19 Isosorbide Mononitrate [Imdur] 60 mg PO QHS 02/13/19 Ropinirole HCl [Requip] 0.25 mg PO QHS 02/13/19 Sevelamer Carbonate 3,200 mg PO .COMPLEX 02/13/19 Clopidogrel Bisulfate [Plavix] 75 mg PO DAILY #0 02/18/19 Oxycodone HCl 5 mg PO Q6H PRN PRN 03/14/19 Surgical History: Surgical History (Last Reviewed 02/13/19 @ 17:10 by AYDIN Funez) History of abdominal paracentesis (Chronic) Onset Date: 09/06/18 Z98.890 Stented coronary artery (Chronic) Z95.5 Cutting Balloon and TAMI (3.0X18 mm Xience) Proximal LAD 04/18/2012; Rotational atherectomy to proximal, id and distal RCA with two overlapping 4.0 X 38 Synergy TAMI ([facility] main) History of back surgery Z98.890 LATE 70'S History of colectomy Z90.49 History of laparoscopic cholecystectomy Z90.49 History of total right knee replacement Z96.651 Hx of foot surgery Z98.890 S/P left rotator cuff repair Z98.890 history left A-V fistula Surgical History: appendectomy, cholecystectomy, hysterectomy, total knee arthroplasty, - - Left upper extremity fistula, back surgery, colon resection with history of diverticulitis, GI bleed, right knee surgery, right total knee replacement, right foot surgery, left knee surgery, left foot surgery, PCI. 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 SCALDER History: No pertinent POULTRY SCALDER history Smoking Status: Former smoker - *Family History Maternal Family History: Family History (Last Reviewed 02/13/19 @ 17:11 by AYDIN Funez) Sister Diabetes Heart disease Hypertension Anemia History Items: Cancer - uterine Paternal Family History: Family History (Last Reviewed 02/13/19 @ 17:11 by AYDIN Funez) Sister Diabetes Heart disease Hypertension Anemia History Items: Cancer Sibling Family History: Family History (Last Reviewed 02/13/19 @ 17:11 by AYDIN Funez) Sister Diabetes Heart disease Hypertension Anemia History Items: Diabetes Review of Systems Constitutional: Reports: Malaise, Weakness, Fatigue. Denies: Chills, Fever, Weight Change Eyes: Denies: Blurred vision HEENT: Denies: Head Aches, Sinus Congestion, Sinus Drainage Cardiovascular: Reports: Light Headedness. Denies: Chest Pain, Orthopnea, Palpitations, Paroxysmal Noc. Dyspnea, Syncope Respiratory: Denies: Cough, Shortness of breath at rest, Sputum production Gastrointestinal: Reports: Hematochezia. Denies: Abdominal Pain, Nausea, Vomiting Genitourinary: Denies: Dysuria Musculoskeletal: Denies: Joint Pain, Joint Tenderness Skin: Denies: Rash, Wounds Neurological: Denies: Numbness, Tingling, Focal weakness Psychiatric: Denies: Anxiety, Depression, Homicidal Ideations, Suicidal Ideations Hematologic/ Lymphatic: Denies: Easy Bruising, Easy Bleeding VTE Information - Inpt Only VTE Present on Admission: No VTE Pharm Prophylaxis ordered?: Yes Patient Problems: Active and Suspected Problems (Last Updated 02/17/19 @ 15:35 by Chaim Jauregui DO) GI bleed (Acute) - Physical Exam Vitals/I&O's: Vital Signs Temp Pulse Resp BP Pulse Ox 97.9 F 51 L 18 141/49 H 97 03/14/19 11:05 03/14/19 11:05 03/14/19 11:05 03/14/19 11:05 03/14/19 11:05 Oxygen Delivery Method Room Air Weight: 218 lb 0.595 oz Body Mass Index (BMI) 36.3 Finger Stick Blood Glucose 99 General: Alert, Oriented x3, Cooperative, No apparent distress HEENT: Atraumatic, PERRLA, EOMI, Normocephalic Oral: Dry Mucosa Neck: Supple, No JVD, Negative Carotid Bruits Lungs: Clear to auscultation, Normal air movement Cardiovascular: Regular rate, Regular Rhythm, Normal S1, Normal S2, No murmurs Abdomen: Bowel Sounds Present, Soft, Non Tender, - - abdomen markedly distended; positive fluid thrill; ascites. Extremities: No clubbing, No cyanosis, No edema, Capillary Refill Less than 3 Seconds Skin: No rashes, No breakdown Musculoskeletal: No Tenderness to Palpation of Joints or Extremities, - - AV fistula in LUE, with good thrill Lymphatic: No Cervical, Supraclavicular, or Inguinal Adenopathy Neurological: Cranial nerves II-XII grossly intact Psych/Mental Status: Normal Affect, Appropriate, Alert and oriented to time, place, person, mood and affect Laboratory Results 03/14/19 11:55: WBC 6.4, RBC 2.82 L, Hgb 8.4 L, Hct 28.2 L, MCV 100.0 H, MCH 29.8, MCHC 29.8 L, RDW Std Deviation 61.8 H, RDW Coeff of Susan 17.3 H, Plt Count 118 L, MPV 9.0, Immature Gran % (Auto) 0.500, Neut % (Auto) 65.7, Lymph % (Auto) 20.2, [place] % (Auto) 8.7, Eos % (Auto) 4.0, Baso % (Auto) 0.9, Absolute Neuts (auto) 4.2, Absolute Lymphs (auto) 1.30, Nucleated RBC % 0 03/14/19 11:55: Sodium 127 L, Potassium 5.7 H, Chloride 91 L, Carbon Dioxide 29.0, Anion Gap 7, BUN 47 H, Creatinine 4.45 H, Estim Creat Clear Calc 9.68, Est GFR (MDRD) Af Amer 12 L, Est GFR (MDRD) Non-Af 10 L, BUN/Creatinine Ratio 10.6, Glucose 101, Calcium 8.8, Total Bilirubin 0.40, Direct Bilirubin 0.20, AST 14 L , ALT 9 L, Alkaline Phosphatase 148 H, Total Protein 6.7, Albumin 2.2 L, Globulin 4.5 H, Lipase 124 Diagnostic Data Abdomen/Pelvis CT 03/14/19 11:42 IMPRESSION: Moderate degree of diffuse abdominal and pelvic ascites with subcutaneous edema and possible anasarca. Severe atherosclerosis of the aorta and the visceral vessels as described. Marked degree of the bilateral renal atrophy. Electronically Signed: Eric Mckay, at 13:02 EDT , Service support , Assessment/Plan All Active Problems (Last Updated 02/17/19 @ 15:35 by Chaim Jauregui DO) GI bleed (Acute) Chest pain (Acute) 74 y.o female admitted with a complaint of rectal bleeding 1. Acute lower GI bleed possibly due to diverticular bleed * admit to PCU with telemetry * Hb is 8.4; baseline is ~ 9-10 * keep NPO for now * consult general surgery- DR Garcia informed by Ed doctor * hold off on IVF administration o/a of ESRD * hold plavix * previous colonoscopy showed (05/12/18): Diverticulosis in the entire examined colon * Type and cross for blood. 2. ESRD on hemodialysis: * Has hemodialysis Wednesdays and Fridays. * Has not had dialysis today yet. * Potassium is 5.7. Consult nephrology for dialysis. * On sevelamer 3. History of ascites due to nonalcoholic cirrhosis Has been teases monthly and last had it about a week ago. Will monitor. 4. Hyponatremia: Sodium is 127. This is chronic. Will monitor. Likely related to ascites. 5. CAD: On aspirin, statin and Imdur. Also on carvedilol. Hold aspirin 6. Hypertension: On hydralazine and carvedilol. 7. Diabetes mellitus: On Lantus 11 units nightly. Hold o/a of NPO status. Accuchecks q6. ISS q6 DVT prophylaxis: SCDs Code Status: Full code * Patient counseled extensively about different types of CODE STATUS including full code, DNR CCA and DNR CCA. Patient elects to be full code. Total gepd-wp-[id number] time 16 minutes. Code Visit Inpatient E&M: 53332 Init Hosp L3
--- NOTE | 2019-03-14 13:40 | ED.RN ---
MARCO SCHRADER FOR DR PIRES
[2019-03-14] MEDS: oxyCODONE 5 MG Tablet PO ×2 (16:34→23:54)
[2019-03-14 16:56] LABS: Bedside Glucose 71 mg/dL (70-110)
[2019-03-14] MEDS: Gabapentin 100 MG Capsule PO (16:58)
--- NOTE | 2019-03-14 17:20 | PCM.CONS.R ---
Consultation - Renal 03/14/19 PCP/ Referring MD: Requesting physician: Dr Benavidez Primary care physician: Davy Coleman MD Reason for Consultation:: ESRD HD MWF - History of Present Illness History of Present Illness: The patient is a 74 year old F with past medical history of ESRD due to diabetes on hemodialysis Sunday, Sunday, Sunday missed dialysis treatment today, consulted for renal management. She is admitted for lower GI bleed started over the weekend when she was out of town in [place] for a family . She continued to have bloody stools at the intermediate. She complains of weakness, back pain radiating to the chest. She complains of shortness of breath on oxygen for the past day. She has a history of liver cirrhosis with ascites requiring paracentesis frequently. She has a history of lower GI bleed in the past with diverticulitis, last colonoscopy at [facility]. CBC showed hemoglobin of 8.4g. She has a history of diabetes, hypertension, CAD. She is noncompliant with her fluid gains. She is fluid overloaded. Sodium level was low at 127. - Allergies Allergies: Allergies lisinopril Allergy (Severe, Verified 03/14/19 11:04) Angioedema nebivolol HCl [From Bystolic] Adverse Reaction (Severe, Verified 03/14/19 11:04) bradycardia BRADYCARDIA - Current Medications Current Medications: Current Medications Atorvastatin Calcium (Lipitor) 80 mg PO QHS [facility] Carvedilol (Coreg) 12.5 mg PO BID [facility] Cholecalciferol (Vitamin D) 5,000 unit PO MoWeFr@0800 [facility] Cyclobenzaprine HCl (Cyclobenzaprine Hcl) 5 mg PO BID [facility] Dextrose (D50w Syringe) 0 gm IV X1 PRN; Protocol PRN Reason: Hypoglycemia Docusate Sodium (Colace) 100 mg PO DAILY [facility]) [facility] Last Admin: 03/14/19 16:58 Dose: 100 mg Documented by: Gabapentin (Neurontin) 200 mg PO QHS [facility] Glucagon () 1 mg IM .X1 PRN PRN Reason: Hypoglycemia Hydralazine HCl (Apresoline) 100 mg PO BID [facility] Insulin Glargine (Lantus (Bkc)) 11 units SC QHS [facility] Insulin Human Lispro (Humalog Kwikpen (Bkc)) 0 unit SC Q6 [facility]; Protocol Last Admin: 03/14/19 16:53 Dose: Not Given Documented by: Isosorbide Mononitrate (Imdur) 60 mg PO QHS [facility] Isosorbide Mononitrate (Monoket) 90 mg PO BREAKFAST [facility] Multivit/Ca Carb/B Cmplx/FA/Prenat (Nephrocaps, Renaphro) capsule PO UD [facility] Ondansetron HCl (Zofran) 4 mg IV Q8H PRN PRN PRN Reason: NAUSEA/VOMITING Oxycodone HCl (Oxyir) 5 mg PO Q6H PRN PRN PRN Reason: Pain Score 1-10/10 Last Admin: 03/14/19 16:34 Dose: 5 mg Documented by: Pantoprazole Sodium (Protonix) 40 mg PO DAILY [facility] Pramipexole Dihydrochloride (Mirapex) 0.125 mg PO QHS [facility] Promethazine HCl (Phenergan Tablet) 12.5 mg PO DAILY PRN PRN PRN Reason: NAUSEA Sevelamer Carbonate (Renvela) 3,200 mg PO TIDCM [facility] - Past Medical History Past Medical History (Chronic Problems): Chronic Problems (Last Updated 02/17/19 @ 15:35 by Chaim Jauregui DO) Chronic renal failure (Chronic) History of abdominal paracentesis (Chronic 09/06/18) History of GI bleed (Chronic) History of non-ST elevation myocardial infarction (NSTEMI) (Chronic 07/05/16) Atherosclerotic heart disease of [place]' coronary artery without angina pectoris (Chronic) Stented coronary artery (Chronic) Cutting Balloon and TAMI (3.0X18 mm Xience) Proximal LAD 04/18/2012; Rotational atherectomy to proximal, id and distal RCA with two overlapping 4.0 X 38 Synergy TAMI ([facility] main) Hypervolemia (Chronic) Ascites (Chronic) Pancytopenia (Chronic) Other specified peripheral vascular diseases (Chronic) Afib (Chronic) Congenital coronary artery anomaly (Chronic) Bradycardia (Chronic) CAD (coronary artery disease) (Chronic) Diabetes mellitus, type II (Chronic) Hyperlipidemia (Chronic) Hypothyroidism (Chronic) Anemia in chronic kidney disease (Chronic) Hypertension (Chronic) End stage renal disease on dialysis (Chronic) - Past Surgical History Surgical History: appendectomy, cholecystectomy, hysterectomy, total knee arthroplasty, - - Left upper extremity fistula, back surgery, colon resection with history of diverticulitis, GI bleed, right knee surgery, right total knee replacement, right foot surgery, left knee surgery, left foot surgery, PCI. - Social History Smoking Status: Former smoker - Family History Maternal Family History: Family History (Last Reviewed 02/13/19 @ 17:11 by AYDIN Funez) Sister Diabetes Heart disease Hypertension Anemia History Items: Cancer - uterine Paternal Family History: Family History (Last Reviewed 02/13/19 @ 17:11 by AYDIN Funez) Sister Diabetes Heart disease Hypertension Anemia History Items: Cancer Sibling Family History: Family History (Last Reviewed 02/13/19 @ 17:11 by AYDIN Funez) Sister Diabetes Heart disease Hypertension Anemia History Items: Diabetes Review of Systems Constitutional: Reports: Anorexia, Weakness. Denies: Chills, Fever Cardiovascular: Reports: Chest Pain, -. Denies: Syncope Respiratory: Reports: Shortness of breath upon exertion. Denies: Cough Gastrointestinal: Reports: Hematochezia, - - Distended abdomen with history of ascites requiring paracentesis. Denies: Abdominal Pain, Nausea, Melena, Vomiting Skin: Denies: Rash Psychiatric: Reports: Anxiety. Denies: Depression Hematologic/ Lymphatic: Reports: Anemia, Easy Bleeding, - - Platelets Patient Problems: Active and Suspected Problems (Last Updated 02/17/19 @ 15:35 by Chaim Jauregui DO) GI bleed (Acute) - Physical Exam Vitals/I&O's: Vital Signs Temp Pulse Resp BP Pulse Ox 97.4 F L 52 L 16 130/51 H 100 03/14/19 16:29 03/14/19 16:29 03/14/19 16:29 03/14/19 16:29 03/14/19 16:29 Oxygen Flow Rate (L/min) 2 Oxygen Delivery Method Nasal Cannula Weight: 94.1 kg Body Mass Index (BMI) 34.5 Finger Stick Blood Glucose 99 General: Alert, Oriented x3, Cooperative, No apparent distress HEENT: PERRLA, EOMI Oral: Dry Mucosa Neck: Supple Lungs: Clear to auscultation Cardiovascular: Regular rate, Murmur Abdomen: Bowel Sounds Present, Soft, Distended Extremities: Edema Skin: - - Erythema of her legs due to edema Musculoskeletal: No Muscle Wasting, Arthritic Changes Neurological: Cranial nerves II-XII grossly intact, - - Generalized weakness Psych/Mental Status: Normal Affect, Appropriate, Alert and oriented to time, place, person, mood and affect Laboratory Results 03/14/19 11:55: WBC 6.4, RBC 2.82 L, Hgb 8.4 L, Hct 28.2 L, MCV 100.0 H, MCH 29.8, MCHC 29.8 L, RDW Std Deviation 61.8 H, RDW Coeff of Susan 17.3 H, Plt Count 118 L, MPV 9.0, Immature Gran % (Auto) 0.500, Neut % (Auto) 65.7, Lymph % (Auto) 20.2, [place] % (Auto) 8.7, Eos % (Auto) 4.0, Baso % (Auto) 0.9, Absolute Neuts (auto) 4.2, Absolute Lymphs (auto) 1.30, Nucleated RBC % 0 03/14/19 11:55: Sodium 127 L, Potassium 5.7 H, Chloride 91 L, Carbon Dioxide 29.0, Anion Gap 7, BUN 47 H, Creatinine 4.45 H, Estim Creat Clear Calc 9.68, Est GFR (MDRD) Af Amer 12 L, Est GFR (MDRD) Non-Af 10 L, BUN/Creatinine Ratio 10.6, Glucose 101, Calcium 8.8, Total Bilirubin 0.40, Direct Bilirubin 0.20, AST 14 L, ALT 9 L, Alkaline Phosphatase 148 H, Total Protein 6.7, Albumin 2.2 L, Globulin 4.5 H, Lipase 124 03/14/19 16:47: POC Glucose 71 Current Medications Atorvastatin Calcium (Lipitor) 80 mg PO QHS [facility] Carvedilol (Coreg) 12.5 mg PO BID [facility] Cholecalciferol (Vitamin D) 5,000 unit PO MoWeFr@0800 [facility] Cyclobenzaprine HCl (Cyclobenzaprine Hcl) 5 mg PO BID [facility] Dextrose (D50w Syringe) 0 gm IV X1 PRN; Protocol PRN Reason: Hypoglycemia Docusate Sodium (Colace) 100 mg PO DAILY [facility] Gabapentin (Neurontin) [facility] Last Admin: 03/14/19 16:58 Dose: 100 mg Documented by: Gabapentin (Neurontin) 200 mg PO QHS [facility] Glucagon () 1 mg IM .X1 PRN PRN Reason: Hypoglycemia Hydralazine HCl (Apresoline) 100 mg PO BID [facility] Insulin Glargine (Lantus (Bkc)) 11 units SC QHS [facility] Insulin Human Lispro (Humalog Kwikpen ([facility])) 0 unit SC Q6 [facility]; Protocol Last Admin: 03/14/19 16:53 Dose: Not Given Documented by: Isosorbide Mononitrate (Imdur) 60 mg PO QHS [facility] Isosorbide Mononitrate (Monoket) 90 mg PO BREAKFAST [facility] Multivit/Ca Carb/B Cmplx/FA/Prenat (Nephrocaps, Renaphro) capsule PO UD [facility] Ondansetron HCl (Zofran) 4 mg IV Q8H PRN PRN PRN Reason: NAUSEA/VOMITING Oxycodone HCl (Oxyir) 5 mg PO Q6H PRN PRN PRN Reason: Pain Score 1-10/10 Last Admin: 03/14/19 16:34 Dose: 5 mg Documented by: Pantoprazole Sodium (Protonix) 40 mg PO DAILY [facility] Pramipexole Dihydrochloride (Mirapex) 0.125 mg PO QHS [facility] Promethazine HCl (Phenergan Tablet) 12.5 mg PO DAILY PRN PRN PRN Reason: NAUSEA Sevelamer Carbonate (Renvela) 3,200 mg PO TIDCM [facility] Assessment/Plan All Active Problems (Last Updated 02/17/19 @ 15:35 by Chaim Jauregui DO) GI bleed (Acute) Chest pain (Acute) 1. End-stage renal disease on dialysis Sunday, Sunday, Sunday. Will arrange her dialysis tonight for missed treatment earlier today. Hold heparin with her treatment 2. Lower GI bleed hemoglobin 8.4 g may need blood transfusion with a history of CAD, chest pain. 3. CAD s/p stent 4. Hypertension blood pressure stable 5. DM type II primary care service management 6. Fluid overload with hyponatremia. History of noncompliance with fluid gains. Remove fluid as tolerated on dialysis. 7. Liver cirrhosis with ascites requiring paracentesis. History of low platelets in the past. Platelet currently stable.
--- NOTE | 2019-03-14 18:30 | EKG12_ITS ---
Test Reason : CP Blood Pressure : / mmHG Vent. Rate : 069 BPM Atrial Rate : 069 BPM P-R Int : 000 ms QRS Dur : 094 ms QT Int : 454 ms P-R-T Axes : 000 033 135 degrees QTc Int : 486 ms Ectopic Atrial Rhythm With Prolonged MN Interval Low voltage QRS Nonspecific T wave abnormality Prolonged QT Abnormal ECG Confirmed by ARI NEWMAN, DESHAWN ([id number]), video effects editor FINESSE ZAVALETA ([id number]) on 03/19/2019 10:08:10 AM Referred By: Cheyenne Benavidez Confirmed By:DESHAWN CHAPMAN MD
--- NOTE | 2019-03-14 19:39 | PCM.CONS.B ---
- Consult Date of Consult: 03/14/19 - Reason for Consult Chief Complaint: rectal bleeding History of Present Illness: 74 y/o WF presents with rectal bleeding. She was out of town last week and noted blood in her stools. This occurred multiple episodes and she noted that the toilet bowl water was full of blood. She is on plavix for placement of coronary artery stents. She states that she last had colonoscopy at [facility] and was noted to have diverticulosis. She denies abdominal pain. Hgb is 8.4 Abdominal/pelvic CT scan reveals ascites and anasarca Noted to have pandiverticulosis by previous colonoscopy Past Medical History: Hypertension SETH Coronary artery disease with stent placements Anemia of chronic disease Pulmonary hypertension Renal failure on dialysis Liver cirrhosis, probably due to PATEL - requiring paracentesis in the past, pending hepatology consultation Past Surgical History: hysterectomy - ALBIN/SO, appendectomy hemorrhoidectomy colon resection for diverticulitis AV fistula - left arm and revision Portacath placement Right knee replacement Left knee surgery right foot surgeries Left foot bunion surgery Lumbar diskectomy Left shoulder surgery Skin cancer removal of lip Cataract surgery ? Medications: insulin detemir U-100 (LEVEMIR FLEXTOUCH U-100 INSULN) 100 unit/mL (3 mL) inpn injection insulin 50/50 lispro protamine/lispro units/mL (HUMALOG MIX 50-50 KWIKPEN) 100 unit/mL (50-50) inpn clopidogrel (PLAVIX) 75 mg tablet rOPINIRole (REQUIP) 0.5 mg tablet carvedilol (COREG) 12.5 mg tablet cyclobenzaprine (FLEXERIL) 5 mg tablet gabapentin (NEURONTIN) 100 mg capsule?() promethazine (PHENERGAN) 12.5 mg tablet sevelamer carbonate (RENVELA) 800 mg tablet lactulose (CONSTULOSE) 10 gram/15 mL solution losartan (COZAAR) 50 mg tablet isosorbide dinitrate (ISORDIL) 10 mg tablet nitroglycerin sublingual (NITROQUICK) 0.4 mg SL tablet atorvastatin (LIPITOR) 80 mg tablet aspirin 81 mg chewable tablet Calcium Citrate-Vitamin D3 500 mg calcium -400 unit chew hydrALAZINE (APRESOLINE) 100 mg tablet pantoprazole (PROTONIX) 40 mg tablet docusate sodium (COLACE) 100 mg capsule b complex, c, folic acid 1 mg renal vitamins (NEPHROCAPS) 1 mg capsule Allergies: lisinopril, nebivolol Social history: TOB use denies resident of prison Review of Systems: EyesNegative for vision changes, diplopia or epiphora. Ears, Mouth, nose, throat:No problems Cardiovascular: SHORTNESS OF BREATH WITH EXERTION Respiratory: Negative for cough, wheezing and shortness of breath Gastrointestinal : Constipation, ascites/liver cirrhosis Genitourinary: ESRD Musuloskeletal: joint pain Integumentary: no rashes, lesions, or jaundice Neurological: No history of neurologic problems Endocrine: Negative for cold or heat intolerance, polyuria, polydipsia and goiter. Psychiatric: Cooperative and agreeable Allergic/ Immunologic: Negative Physical examination: Vital signs Temp 97.4F HR 48 BP 115/33 RR 18 General WD/WN WF in no apparent distress, alert and oriented, not septic appearing HEENT Normocephalic. EOM intact with sclera clear and no icterus noted. Neck is supple with no jugular venous distention noted. Trachea is midline. Lungs normal breath sounds. No rales/rhonchi/wheezing noted. No labored breathing noted, such as retractions. No cough heard. Heart normal heart sounds. No rubs/clicks/murmurs noted. . Abdomen soft and benign and protuberant. Normal bowel sounds. Cannot determine if any masses due to body habitus Extremities no calf tenderness noted. bilateral dependent swelling of lower extremities Genitourinary/Rectal deferred Skin normal skin integrity. Neurological non focal. Psychological normal affect, patient is calm and appropriate Impression: rectal bleeding DIscussion/Plan: I have discussed the above with the patient. This may be due to diverticular bleeding. Will follow patient. If continued bloody bowel movements or continued decrease in hgb, will consider endoscopy. If patient requires any surgery, she will have to be transferred to a larger medical center due to her multiple medical morbidities. I have answered all questions to the patient?s satisfaction and the patient has no further questions.
--- NOTE | 2019-03-14 20:16 | NURSING ---
[facility] from [facility] contacted to fax MAR so Med Rec can be completed.
[2019-03-14] MEDS: Acetaminophen 325 MG Tablet 650 MG PO (21:08)
[2019-03-14] MEDS: Gabapentin 100 MG Capsule 200 MG PO (22:49)
[2019-03-14] MEDS: Atorvastatin Calcium 80 MG Tablet PO (22:50)
[2019-03-14] MEDS: Pramipexole Di-HCl 0.125 MG Tablet PO (22:50)
[2019-03-14] MEDS: cycloBENZAPRine HCl 5 MG TABLET PO (22:50)
[2019-03-14] MEDS: Isosorbide Mononitrate 60 MG Tablet PO (22:50)
--- NOTE | 2019-03-14 23:01 | DIALYSIS ---
Hemodialysis x 4 hours completed. Pt tolerated tx well. Fluid balance -5000ml. Lancing pulled. Hemostasis achieved. Dressing applied. Report given to EDIN López. Pt stable
[2019-03-14] MEDS: MELATONIN 3 MG TABLET PO (23:54)
[2019-03-15] VITALS (11 sets, daily range): BP systolic 116–133; BP diastolic 34–47; PULSE 70–80; RESP 12–18; TEMP 36.5–37.2; O2SAT 94–100
[2019-03-15 00:21] LABS: Bedside Glucose 104 mg/dL (70-110)
--- NOTE | 2019-03-15 00:45 | NURSING ---
Dialysis completed 03/14/19 at 2330. 5000cc off.
[2019-03-15] MEDS: Acetaminophen 325 MG Tablet 650 MG PO (04:55)
[2019-03-15] MEDS: oxyCODONE 5 MG Tablet PO ×3 (06:12→21:04)
[2019-03-15] MEDS: 0.9% Saline Lock 10 ML Syringe IV (06:17)
[2019-03-15 06:35] LABS: Bedside Glucose 72 mg/dL (70-110)
[2019-03-15 07:33] LABS: Absolute Lymphocyte Count 1.03 X10^3/uL (0.83-4.51); Absolute Neutrophil Count 4.3 X10^3/uL (2.0-7.7); Basophil# 0.06 X10^3/uL; Eosinophil# 0.19 X10^3/uL; Eosinophils% 3.1 % (0-5); Hematocrit 27.9 % (37-47); Hemoglobin 8.4 g/dL (12.0-15.0); Lymphocyte # 1.03 X10^3/ul (4.0); Lymphocyte % 16.7 % (19-41); Mean Corp Hgb Conc 30.1 g/dL (32-36); Mean Corpuscular Hgb 29.9 pg (27.0-32.0); Mean Corpuscular Volume 99.3 fL (81-99); Mean Platelet Vol. 9.4 fl (6.2-12.0); Monocyte# 0.57 X10^3/uL; Monocyte% 9.2 % (0-10); NRBC Flagged by Analyzer 0 % (0-5); Neutrophil # 4.29 X10^3/uL (2.7-7.7); Neutrophil % 69.5 % (47-70); Platelet Count 115 K/mm3 (150-450); RBC Distribution Width CV 17.6 % (11.6-14.6); RBC Distribution Width SD 62.4 fl (35.1-43.9); Red Blood Count 2.81 M/mm3 (4.2-5.4); White Blood Count 6.2 K/mm3 (4.4-11.0)
[2019-03-15 07:57] LABS: Anion Gap 6 (5-15); BUN 27 mg/dL (7-18); BUN/Creat Ratio 8.7 RATIO (10-20); Calcium,Total 7.8 mg/dL (8.5-10.1); Chloride 98 mmol/L (98-107); Creatinine, Serum 3.12 mg/dL (0.55-1.02); EST Glomerular Filtration Rate 15 mL/min (>60); Est Glom Filt Rate - Afr Amer 19 mL/min (>60); Estimated Creatinine Clearance 13.25 ml/min; Glucose 72 mg/dL (74-106); Phosphorus 4.2 mg/dL (2.5-4.9); Potassium 4.7 mmol/L (3.5-5.1); Sodium Level 134 mmol/L (136-145)
[2019-03-15] MEDS: SEVELAMER CARBONATE 800 MG TABLET 3200 MG PO ×2 (09:24→17:19)
[2019-03-15] MEDS: Gabapentin 100 MG Capsule PO ×2 (09:24→17:19)
[2019-03-15] MEDS: Isosorbide Mononitrate 30 MG Tablet 90 MG PO (09:24)
[2019-03-15] MEDS: Pantoprazole Sodium 40 MG Tablet PO (09:24)
[2019-03-15] MEDS: Docusate Sodium 100 MG Capsule PO (09:24)
[2019-03-15] MEDS: cycloBENZAPRine HCl 5 MG TABLET PO ×2 (09:24→21:07)
--- NOTE | 2019-03-15 11:59 | PN.SURG_ITS ---
Patient Problems: Active and Suspected Problems (Last Updated 02/17/19 @ 15:35 by Chaim Jauregui DO) GI bleed (Acute) Subjective: patient is lethargic but arousable and answered questions this morning appropriately denies abdominal pain - complaint of soreness - probably due to chronic ascites Denies having bowel movement since admission to hospital - Physical Exam Vitals/I&O's: Vital Signs Temp Pulse Resp BP Pulse Ox 97.9 F 77 12 116/34 L 100 03/15/19 08:55 03/15/19 08:55 03/15/19 08:55 03/15/19 08:55 03/15/19 08:55 Oxygen Flow Rate (L/min) 2 Oxygen Delivery Method Nasal Cannula Weight: 94.1 kg Body Mass Index (BMI) 34.5 Finger Stick Blood Glucose 99 Intake and Output for Last 24 Hours 03/13/19 03/14/19 03/15/19 23:59 23:59 23:59 Intake Total 240 / 240 60 / 60 Output Total 0 / 0 Balance 240 / 240 60 / 60 General: Lethargic Oral: Moist Mucosa Neck: Supple Lungs: Normal air movement Abdomen: Bowel Sounds Present, Soft, Obese Laboratory Results 03/14/19 11:55: WBC 6.4, RBC 2.82 L, Hgb 8.4 L, Hct 28.2 L, MCV 100.0 H, MCH 29.8, MCHC 29.8 L, RDW Std Deviation 61.8 H, RDW Coeff of Susan 17.3 H, Plt Count 118 L, MPV 9.0, Immature Gran % (Auto) 0.500, Neut % (Auto) 65.7, Lymph % (Auto) 20.2, [place] % (Auto) 8.7, Eos % (Auto) 4.0, Baso % (Auto) 0.9, Absolute Neuts (auto) 4.2, Absolute Lymphs (auto) 1.30, Nucleated RBC % 0 03/14/19 11:55: Sodium 127 L, Potassium 5.7 H, Chloride 91 L, Carbon Dioxide 29.0, Anion Gap 7, BUN 47 H, Creatinine 4.45 H, Estim Creat Clear Calc 9.68, Est GFR (MDRD) Af Amer 12 L, Est GFR (MDRD) Non-Af 10 L, BUN/Creatinine Ratio 10.6, Glucose 101, Calcium 8.8, Total Bilirubin 0.40, Direct Bilirubin 0.20, AST 14 L, ALT 9 L, Alkaline Phosphatase 148 H, Total Protein 6.7, Albumin 2.2 L, Globulin 4.5 H, Lipase 124 03/14/19 16:47: POC Glucose 71 03/15/19 00:01: POC Glucose 104 03/15/19 06:07: POC Glucose 72 03/15/19 07:00: WBC 6.2, RBC 2.81 L, Hgb 8.4 L, Hct 27.9 L, MCV 99.3 H, MCH 29.9, MCHC 30.1 L, RDW Std Deviation 62.4 H, RDW Coeff of Susan 17.6 H, Plt Count 115 L, MPV 9.4, Immature Gran % (Auto) 0.500, Neut % (Auto) 69.5, Lymph % (Auto) 16.7 L, [place] % (Auto) 9.2, Eos % (Auto) 3.1, Baso % (Auto) 1.0, Absolute Neuts (auto) 4.3, Absolute Lymphs (auto) 1.03, Nucleated RBC % 0 03/15/19 07:00: Sodium 134 L, Potassium 4.7, Chloride 98, Carbon Dioxide 30.0, Anion Gap 6, BUN 27 H, Creatinine 3.12 H, Estim Creat Clear Calc 13.25, Est GFR (MDRD) Af Amer 19 L, Est GFR (MDRD) Non-Af 15 L, BUN/Creatinine Ratio 8.7 L, Glucose 72 L, Calcium 7.8 L, Phosphorus 4.2 Current Medications Acetaminophen (Tylenol) 650 mg PO Q6H PRN PRN PRN Reason: Pain Score 1-02/27 Last Admin: 03/15/19 04:55 Dose: 650 mg Documented by: Atorvastatin Calcium (Lipitor) 80 mg PO QHS [facility] Last Admin: 03/14/19 22:50 Dose: 80 mg Documented by: Cholecalciferol (Vitamin D) 5,000 unit PO MoWeFr@0800 [facility] Cyclobenzaprine HCl (Cyclobenzaprine Hcl) 5 mg PO BID [facility] Last Admin: 03/15/19 09:24 Dose: 5 mg Documented by: Dextrose (D50w Syringe) 0 gm IV X1 PRN; Protocol PRN Reason: Hypoglycemia Docusate Sodium (Colace) 100 mg PO DAILY [facility] Last Admin: 03/15/19 09:24 Dose: 100 mg Documented by: [facility]) [facility] Last Admin: 03/15/19 09:24 Dose: 100 mg Documented by: Gabapentin (Neurontin) 200 mg PO QHS [facility] Last Admin: 03/14/19 22:49 Dose: 200 mg Documented by: Glucagon () 1 mg IM .X1 PRN PRN Reason: Hypoglycemia Hydralazine HCl (Apresoline) 100 mg PO BID [facility] Last Admin: 03/15/19 09:24 Dose: Not Given Documented by: Insulin Human Lispro (Humalog Kwikpen (Bkc)) 0 unit SC Q6 [facility]; Protocol Last Admin: 03/15/19 06:08 Dose: Not Given Documented by: Isosorbide Mononitrate (Imdur) 60 mg PO QHS [facility] Last Admin: 03/14/19 22:50 Dose: 60 mg Documented by: Isosorbide Mononitrate (Imdur) 90 mg PO BREAKFAST [facility] Last Admin: 03/15/19 09:24 Dose: 90 mg Documented by: Melatonin (Melatonin) 3 mg PO QHS PRN PRN Reason: insomnia Last Admin: 03/14/19 23:54 Dose: 3 mg Documented by: Ondansetron HCl (Zofran) 4 mg IV Q8H PRN PRN PRN Reason: NAUSEA/VOMITING Oxycodone HCl (Oxyir) 5 mg PO Q6H PRN PRN PRN Reason: Pain Score 1-10/10 Last Admin: 03/15/19 06:12 Dose: 5 mg Documented by: Pantoprazole Sodium (Protonix) 40 mg PO DAILY [facility] Last Admin: 03/15/19 09:24 Dose: 40 mg Documented by: Pramipexole Dihydrochloride (Mirapex) 0.125 mg PO QHS [facility] Last Admin: 03/14/19 22:50 Dose: 0.125 mg Documented by: Promethazine HCl (Phenergan Tablet) 12.5 mg PO DAILY PRN PRN PRN Reason: NAUSEA Sevelamer Carbonate (Renvela) 3,200 mg PO TIDCM [facility] Last Admin: 03/15/19 09:24 Dose: 3,200 mg Documented by: Sodium Chloride () 10 - 40 ml IV UD PRN PRN Reason: SALINE FLUSH Last Admin: 03/15/19 06:17 Dose: 10 ml Documented by: Medical Necessity - Tobacco Use Smoking Status: Former smoker Assessment/Plan All Active Problems (Last Updated 02/17/19 @ 15:35 by Chaim Jauregui DO) GI bleed (Acute) Chest pain (Acute) Impression: rectal bleeding Discussion/Plan: Given the patient's multiple morbidities, any procedure would be high risk (she has three organ failure) Thus, would continue observation I would not consider colonoscopy unless further evidence of bleeding and/or precipitous drop in hgb. This probably was a diverticular bleed and may have already ceased
[2019-03-15 12:10] LABS: Bedside Glucose 84 mg/dL (70-110)
--- NOTE | 2019-03-15 12:13 | PN_ITS ---
Patient Problems: Active and Suspected Problems (Last Updated 02/17/19 @ 15:35 by Chaim Jauregui DO) GI bleed (Acute) Subjective: The patient with multiple medical problems including ESRD on hemodialysis, decompensated cirrhosis with ascites, coronary artery disease status post stents, A. fib and diabetes mellitus. This time admitted with rectal bleed. Seen by surgeon Dr. Garcia and discussed with her. Blood pressure is 116/34 it was low last night 108/52. Denies abdominal pain but mild abdominal soreness. Did not had new rectal bleed yesterday and today. Vitals/I&O's: Vital Signs Temp Pulse Resp BP Pulse Ox 97.9 F 77 12 116/34 L 100 03/15/19 08:55 03/15/19 08:55 03/15/19 08:55 03/15/19 08:55 03/15/19 08:55 Oxygen Flow Rate (L/min) 2 Oxygen Delivery Method Nasal Cannula Weight: 207 lb 7.28 oz Body Mass Index (BMI) 34.5 Finger Stick Blood Glucose 99 Intake and Output for Last 24 Hours 03/13/19 03/14/19 03/15/19 23:59 23:59 23:59 Intake Total 240 / 240 60 / 60 Output Total 0 / 0 Balance 240 / 240 60 / 60 General: Oriented x3, Cooperative, Lethargic HEENT: Atraumatic, PERRLA, EOMI, Normocephalic Neck: Supple, No JVD, Negative Carotid Bruits Lungs: Clear to auscultation, No rhonchi, No wheeze, No rales, Diminished - Entry is diminished in bilateral lung bases. Cardiovascular: Regular rate, Regular Rhythm, Normal S1, Normal S2, No murmurs Abdomen: Bowel Sounds Present, Soft, Non Tender, Hypoactive Bowel Sounds, Distended, - - Ascites present. Extremities: Capillary Refill Less than 3 Seconds, Edema Skin: No rashes, No breakdown Musculoskeletal: No Tenderness to Palpation of Joints or Extremities, Arthritic Changes, Muscle Wasting Neurological: Cranial nerves II-XII grossly intact, Deep Tendon Reflexes 2+/4 and Symmetrical, Neuro grossly intact Psych/Mental Status: Normal Affect, Appropriate Laboratory Results 03/14/19 11:55: Sodium 127 L, Potassium 5.7 H, Chloride 91 L, Carbon Dioxide 29.0, Anion Gap 7, BUN 47 H, Creatinine 4.45 H, Estim Creat Clear Calc 9.68, Est GFR (MDRD) Af Amer 12 L, Est GFR (MDRD) Non-Af 10 L, BUN/Creatinine Ratio 10.6, Glucose 101, Calcium 8.8, Total Bilirubin 0.40, Direct Bilirubin 0.20, AST 14 L, ALT 9 L, Alkaline Phosphatase 148 H, Total Protein 6.7, Albumin 2.2 L, Globulin 4.5 H, Lipase 124 03/14/19 16:47: POC Glucose 71 03/15/19 00:01: POC Glucose 104 03/15/19 06:07: POC Glucose 72 03/15/19 07:00: WBC 6.2, RBC 2.81 L, Hgb 8.4 L, Hct 27.9 L, MCV 99.3 H, MCH 29.9, MCHC 30.1 L, RDW Std Deviation 62.4 H, RDW Coeff of Susan 17.6 H, Plt Count 115 L, MPV 9.4, Immature Gran % (Auto) 0.500, Neut % (Auto) 69.5, Lymph % (Auto) 16.7 L, Walsh % (Auto) 9.2, Eos % (Auto) 3.1, Baso % (Auto) 1.0, Absolute Neuts (auto) 4.3, Absolute Lymphs (auto) 1.03, Nucleated RBC % 0 03/15/19 07:00: Sodium 134 L, Potassium 4.7, Chloride 98, Carbon Dioxide 30.0, Anion Gap 6, BUN 27 H, Creatinine 3.12 H, Estim Creat Clear Calc 13.25, Est GFR (MDRD) Af Amer 19 L, Est GFR (MDRD) Non-Af 15 L, BUN/Creatinine Ratio 8.7 L, Glucose 72 L, Calcium 7.8 L, Phosphorus 4.2 03/15/19 11:38: POC Glucose 84 Current Medications Acetaminophen (Tylenol) 650 mg PO Q6H PRN PRN PRN Reason: Pain Score 1-02/27 Last Admin: 03/15/19 04:55 Dose: 650 mg Documented by: Atorvastatin Calcium (Lipitor) 80 mg PO QHS [facility] Last Admin: 03/14/19 22:50 Dose: 80 mg Documented by: Cholecalciferol (Vitamin D) 5,000 unit PO MoWeFr@0800 [facility] Cyclobenzaprine HCl (Cyclobenzaprine Hcl) 5 mg PO BID [facility] Last Admin: 03/15/19 09:24 Dose: 5 mg Documented by: Dextrose (D50w Syringe) 0 gm IV X1 PRN; Protocol PRN Reason: Hypoglycemia Docusate Sodium (Colace) 100 mg PO DAILY [facility] Last Admin: 03/15/19 09:24 Dose: 100 mg Documented by: [facility] Last Admin: 03/15/19 09:24 Dose: 100 mg Documented by: Gabapentin (Neurontin) 200 mg PO QHS [facility] Last Admin: 03/14/19 22:49 Dose: 200 mg Documented by: Glucagon () 1 mg IM .X1 PRN PRN Reason: Hypoglycemia Hydralazine HCl (Apresoline) 50 mg PO BID [facility] Insulin Human Lispro (Humalog Kwikpen (Bkc)) 0 unit SC Q6 [facility]; Protocol Last Admin: 03/15/19 06:08 Dose: Not Given Documented by: Isosorbide Mononitrate (Imdur) 60 mg PO QHS [facility] Last Admin: 03/14/19 22:50 Dose: 60 mg Documented by: Isosorbide Mononitrate (Imdur) 90 mg PO BREAKFAST [facility] Last Admin: 03/15/19 09:24 Dose: 90 mg Documented by: Melatonin (Melatonin) 3 mg PO QHS PRN PRN Reason: insomnia Last Admin: 03/14/19 23:54 Dose: 3 mg Documented by: Ondansetron HCl (Zofran) 4 mg IV Q8H PRN PRN PRN Reason: NAUSEA/VOMITING Oxycodone HCl (Oxyir) 5 mg PO Q6H PRN PRN PRN Reason: Pain Score 1-10/10 Last Admin: 03/15/19 06:12 Dose: 5 mg Documented by: Pantoprazole Sodium (Protonix) 40 mg PO DAILY [facility] Last Admin: 03/15/19 09:24 Dose: 40 mg Documented by: Pramipexole Dihydrochloride (Mirapex) 0.125 mg PO QHS [facility] Last Admin: 03/14/19 22:50 Dose: 0.125 mg Documented by: Promethazine HCl (Phenergan Tablet) 12.5 mg PO DAILY PRN PRN PRN Reason: NAUSEA Sevelamer Carbonate (Renvela) 3,200 mg PO TIDCM [facility] Last Admin: 03/15/19 09:24 Dose: 3,200 mg Documented by: Sodium Chloride () 10 - 40 ml IV UD PRN PRN Reason: SALINE FLUSH Last Admin: 03/15/19 06:17 Dose: 10 ml Documented by: STROKE Vital Signs/Narrative: Vital Signs Temp Pulse Resp BP Pulse Ox 03/15/19 08:55 97.9 F 77 12 116/34 L 100 Medical Necessity - Tobacco Use Smoking Status: Former smoker Assessment/Plan All Active Problems (Last Updated 02/17/19 @ 15:35 by Chaim Jauregui DO) GI bleed (Acute) Chest pain (Acute) This is a 74 y.o female with multiple comorbidities including Loza related cirrhosis, decompensated with ascites, ESRD on hemodialysis, coronary artery stents admitted with a complaint of painless rectal bleeding. She has generalized weakness. 1. Acute lower GI bleed possibly due to diverticular bleed. Patient is being admitted in PCU. H&H stable 8.4/27.9 for last 2 days. Mild thrombocytopenia 115,000 with history of decompensated cirrhosis. Discussed with surgeon Dr. Garcia. Hold on Plavix. previous colonoscopy showed (05/12/18): Diverticulosis in the entire examined colon Patient carries a very high risk for colonoscopy in view of multiple comorbidities including 3 organ failure including ESRD on hemodialysis,'s decompensated cirrhosis and coronary artery disease. 2. ESRD on hemodialysis: * Has hemodialysis Wednesdays and Fridays. * Seen by regulatory leader. Patient is fluid overloaded, sodium 127. Dialysis today. * Repeat sodium 134, K4.7. BUN/creatinine 27/3.12. 3. Decompensated cirrhosis with ascites, thrombocytopenia with monthly paracentesis, last one about a week ago has been teases monthly and last had it about a week ago. 4. Hyponatremia: Sodium improved as mentioned above. Hyponatremia in decompensated cirrhosis portends to bad prognosis. 5. CAD status post stent with right-sided ventricular systolic failure: On aspirin, statin and Imdur. Also on carvedilol. Hold aspirin and Plavix. Echo done in February 2018 reported as EF 65% with normal LV size but severely dilated RV with moderate global right ventricular systolic dysfunction suggestive of right-sided heart failure. LA severely enlarged. Right atrium moderately enlarged. 3+ TR, RVSP 35 mmHg. 6. Hypertension: On hydralazine and carvedilol. 7. Diabetes mellitus: On Lantus 11 units nightly. Hold o/a of NPO status. Accuchecks q6. ISS q6 DVT prophylaxis: SCDs Laboratory Results 03/14/19 16:47: POC Glucose 71 03/15/19 00:01: POC Glucose 104 03/15/19 06:07: POC Glucose 72 03/15/19 07:00: WBC 6.2, RBC 2.81 L, Hgb 8.4 L, Hct 27.9 L, MCV 99.3 H, MCH 29.9, MCHC 30.1 L, RDW Std Deviation 62.4 H, RDW Coeff of Susan 17.6 H, Plt Count 115 L, MPV 9.4, Immature Gran % (Auto) 0.500, Neut % (Auto) 69.5, Lymph % (Auto) 16.7 L, Walsh % (Auto) 9.2, Eos % (Auto) 3.1, Baso % (Auto) 1.0, Absolute Neuts (auto) 4.3, Absolute Lymphs (auto) 1.03, Nucleated RBC % 0 03/15/19 07:00: Sodium 134 L, Potassium 4.7, Chloride 98, Carbon Dioxide 30.0, Anion Gap 6, BUN 27 H, Creatinine 3.12 H, Estim Creat Clear Calc 13.25, Est GFR (MDRD) Af Amer 19 L, Est GFR (MDRD) Non-Af 15 L, BUN/Creatinine Ratio 8.7 L, Glucose 72 L, Calcium 7.8 L, Phosphorus 4.2 03/15/19 11:38: POC Glucose 84 Code Visit Inpatient E&M: 71129 Subs Hosp L3
--- NOTE | 2019-03-15 12:28 | CASEMGMT ---
Addendum entered by Corine Grover 03/15/19 13:02: SPOKE WITH PATIENT'S NURSE, JULIAN AT [facility] WHO INFORMED PATIENT WILL NEED PRECERT PRIOR TO RETURN. Original Note: SOCIAL WORK MET WITH PATIENT IN ROOM. INTRODUCED ROLE AND REASON FOR REFERRAL. PATIENT REPORTS IS FROM [facility] AND WILL RETURN UPON D/C. PATIENT STATES FACILITY ABLE TO TRANSPORT UPON D/C. CALL TO [facility], SPOKE WITH OMARI. PER OMARI, SHOULD BE ABLE TO SET UP TRANSPORT UPON D/C. CALL TO PATIENT'S DAUGHTER, NICKY. NICKY IN AGREEMENT WITH PLAN TO RETURN TO [facility] UPON D/C. PLAN: RETURN TO [facility]-ANTICIPATE FACILITY TO TRANSPORT UPON D/C. MARIA DOLORES ZULETA, [employer].
--- NOTE | 2019-03-15 15:11 | NURSING ---
This nurse reviewed charting of SN Yehuda
[2019-03-15 17:26] LABS: Bedside Glucose 81 mg/dL (70-110)
[2019-03-15 20:18] LABS: Hemoglobin 8.7 g/dL (12.0-15.0)
[2019-03-15] MEDS: Magnesium Hydroxide 30 ML UDC PO (21:04)
[2019-03-15] MEDS: MELATONIN 3 MG TABLET PO (21:04)
[2019-03-15] MEDS: Pramipexole Di-HCl 0.125 MG Tablet PO (21:06)
[2019-03-15] MEDS: Isosorbide Mononitrate 60 MG Tablet PO (21:06)
[2019-03-15] MEDS: Atorvastatin Calcium 80 MG Tablet PO (21:06)
[2019-03-15] MEDS: Gabapentin 100 MG Capsule 200 MG PO (21:12)
[2019-03-16] VITALS (12 sets, daily range): BP systolic 99–171; BP diastolic 32–64; PULSE 65–79; RESP 16–18; TEMP 36.3–36.8; O2SAT 94–98
[2019-03-16 00:31] LABS: Bedside Glucose 100 mg/dL (70-110)
[2019-03-16] MEDS: oxyCODONE 5 MG Tablet PO ×3 (03:34→21:56)
--- NOTE | 2019-03-16 06:23 | PN.SURG_ITS ---
Patient Problems: Active and Suspected Problems (Last Updated 02/17/19 @ 15:35 by Chaim Jauregui DO) GI bleed (Acute) Subjective: Patient states that she had a bowel movement last night, no report of bloody bowel movement had episode of abdominal pain last night, but presently none - Physical Exam Vitals/I&O's: Vital Signs Temp Pulse Resp BP Pulse Ox 98.3 F 71 18 99/32 L 98 03/16/19 02:55 03/16/19 03:00 03/16/19 02:55 03/16/19 02:55 03/16/19 02:55 Oxygen Flow Rate (L/min) 2 Oxygen Delivery Method Nasal Cannula Weight: 94.1 kg Body Mass Index (BMI) 34.5 Finger Stick Blood Glucose 99 Intake and Output for Last 24 Hours 03/14/19 03/15/19 03/16/19 23:59 23:59 23:59 Intake Total 240 / 240 1740 / 1740 60 / 60 Output Total 0 / 0 Balance 240 / 240 1740 / 1740 60 / 60 General: Alert, Oriented x3 Oral: Moist Mucosa Neck: Supple Lungs: Normal air movement Abdomen: Bowel Sounds Present, Soft, Non Tender, Obese Laboratory Results 03/15/19 06:07: POC Glucose 72 03/15/19 07:00: WBC 6.2, RBC 2.81 L, Hgb 8.4 L, Hct 27.9 L, MCV 99.3 H, MCH 29.9, MCHC 30.1 L, RDW Std Deviation 62.4 H, RDW Coeff of Susan 17.6 H, Plt Count 115 L, MPV 9.4, Immature Gran % (Auto) 0.500, Neut % (Auto) 69.5, Lymph % (Auto) 16.7 L, [place] % (Auto) 9.2, Eos % (Auto) 3.1, Baso % (Auto) 1.0, Absolute Neuts (auto) 4.3, Absolute Lymphs (auto) 1.03, Nucleated RBC % 0 03/15/19 07:00: Sodium 134 L, Potassium 4.7, Chloride 98, Carbon Dioxide 30.0, Anion Gap 6, BUN 27 H, Creatinine 3.12 H, Estim Creat Clear Calc 13.25, Est GFR (MDRD) Af Amer 19 L, Est GFR (MDRD) Non-Af 15 L, BUN/Creatinine Ratio 8.7 L, Glucose 72 L, Calcium 7.8 L, Phosphorus 4.2 03/15/19 11:38: POC Glucose 84 03/15/19 17:17: POC Glucose 81 03/15/19 20:06: Hgb 8.7 L, Hct 29.0 L 03/15/19 23:49: POC Glucose 100 Current Medications Acetaminophen (Tylenol) 650 mg PO Q6H PRN PRN PRN Reason: Pain Score 1-02/27 Last Admin: 03/15/19 04:55 Dose: 650 mg Documented by: Atorvastatin Calcium (Lipitor) 80 mg PO QHS [facility] Last Admin: 03/15/19 21:06 Dose: 80 mg Documented by: Cholecalciferol (Vitamin D) 5,000 unit PO MoWeFr@0800 [facility] Cyclobenzaprine HCl (Cyclobenzaprine Hcl) 5 mg PO BID [facility] Last Admin: 03/15/19 21:07 Dose: 5 mg Documented by: Dextrose (D50w Syringe) 0 gm IV X1 PRN; Protocol PRN Reason: Hypoglycemia Docusate Sodium (Colace) 100 mg PO DAILY [facility] Last Admin: 03/15/19 09:24 Dose: 100 mg Documented by: Gabapentin (Neurontin) 100 mg PO BIDCM [facility] Last Admin: 03/15/19 17:19 Dose: 100 mg Documented by: Gabapentin (Neurontin) 200 mg PO QHS [facility] Last Admin: 03/15/19 21:12 Dose: 200 mg Documented by: Glucagon () 1 mg IM .X1 PRN PRN Reason: Hypoglycemia Hydralazine HCl (Apresoline) 50 mg PO BID [facility] Last Admin: 03/15/19 21:09 Dose: Not Given Documented by: Insulin Human Lispro (Humalog Kwikpen (Bkc)) 0 unit SC Q6 [facility]; Protocol Last Admin: 03/16/19 06:18 Dose: Not Given Documented by: Isosorbide Mononitrate (Imdur) 60 mg PO QHS [facility] Last Admin: 03/15/19 21:06 Dose: 60 mg Documented by: Isosorbide Mononitrate (Imdur) 90 mg PO BREAKFAST [facility] Last Admin: 03/15/19 09:24 Dose: 90 mg Documented by: Magnesium Hydroxide (Milk Of Magnesia) 30 ml PO DAILY PRN PRN Reason: Constipation Last Admin: 03/15/19 21:04 Dose: 30 ml Documented by: Melatonin (Melatonin) 3 mg PO QHS PRN PRN Reason: insomnia Last Admin: 03/15/19 21:04 Dose: 3 mg Documented by: Ondansetron HCl (Zofran) 4 mg IV Q8H PRN PRN PRN Reason: NAUSEA/VOMITING Oxycodone HCl (Oxyir) 5 mg PO Q6H PRN PRN PRN Reason: Pain Score 1-10/10 Last Admin: 03/16/19 03:34 Dose: 5 mg Documented by: Pantoprazole Sodium (Protonix) 40 mg PO DAILY [facility] Last Admin: 03/15/19 09:24 Dose: 40 mg Documented by: Pramipexole Dihydrochloride (Mirapex) 0.125 mg PO QHS [facility] Last Admin: 03/15/19 21:06 Dose: 0.125 mg Documented by: Promethazine HCl (Phenergan Tablet) 12.5 mg PO DAILY PRN PRN PRN Reason: NAUSEA Sevelamer Carbonate (Renvela) 3,200 mg PO TIDCM [facility] Last Admin: 03/15/19 17:19 Dose: 3,200 mg Documented by: Sodium Chloride () 10 - 40 ml IV UD PRN PRN Reason: SALINE FLUSH Last Admin: 03/15/19 06:17 Dose: 10 ml Documented by: Medical Necessity - Tobacco Use Smoking Status: Former smoker Assessment/Plan All Active Problems (Last Updated 02/17/19 @ 15:35 by Chaim Jauregui DO) GI bleed (Acute) Chest pain (Acute) Impression: rectal bleeding suspect diverticular bleeding - seemingly has ceased Discussion/Plan: Given the patient's multiple morbidities, any procedure would be high risk (she has three organ failure) thus would continue observation She has had no bloody bowel movements - presently off of plavix I would not consider colonoscopy unless further evidence of bleeding and/or precipitous drop in hgb. This probably was a diverticular bleed and may have already ceased
[2019-03-16 06:25] LABS: Bedside Glucose 107 mg/dL (70-110)
[2019-03-16 07:18] LABS: Absolute Lymphocyte Count 1.13 X10^3/uL (0.83-4.51); Absolute Neutrophil Count 3.1 X10^3/uL (2.0-7.7); Basophil# 0.06 X10^3/uL; Basophil% 1.2 % (0-1); Eosinophil# 0.21 X10^3/uL; Eosinophils% 4.1 % (0-5); Hematocrit 27.2 % (37-47); Hemoglobin 8.3 g/dL (12.0-15.0); Lymphocyte # 1.13 X10^3/ul (4.0); Lymphocyte % 22.3 % (19-41); Mean Corp Hgb Conc 30.5 g/dL (32-36); Mean Corpuscular Hgb 30.3 pg (27.0-32.0); Mean Corpuscular Volume 99.3 fL (81-99); Mean Platelet Vol. 8.9 fl (6.2-12.0); Monocyte# 0.52 X10^3/uL; Monocyte% 10.3 % (0-10); NRBC Flagged by Analyzer 0 % (0-5); Neutrophil # 3.14 X10^3/uL (2.7-7.7); Neutrophil % 61.9 % (47-70); Platelet Count 119 K/mm3 (150-450); RBC Distribution Width CV 17.9 % (11.6-14.6); RBC Distribution Width SD 63.3 fl (35.1-43.9); Red Blood Count 2.74 M/mm3 (4.2-5.4); White Blood Count 5.1 K/mm3 (4.4-11.0)
[2019-03-16 07:43] LABS: ALB/GLOB Ratio 0.5 RATIO (0.9-2.4); AST(SGOT) 17 U/L (15-37); Alanine Aminotransfer ALT/SGPT 10 U/L (13-56); Albumin, Serum 2.2 g/dL (3.2-5.0); Alkaline Phosphatase 115 U/L (45-117); Anion Gap 6 (5-15); BUN 35 mg/dL (7-18); BUN/Creat Ratio 8.9 RATIO (10-20); Calcium,Total 7.5 mg/dL (8.5-10.1); Chloride 95 mmol/L (98-107); Creatinine, Serum 3.92 mg/dL (0.55-1.02); EST Glomerular Filtration Rate 12 mL/min (>60); Est Glom Filt Rate - Afr Amer 14 mL/min (>60); Estimated Creatinine Clearance 10.54 ml/min; Globulin 4.3 g/dL (2.2-4.2); Glucose 108 mg/dL (74-106); Potassium 5.4 mmol/L (3.5-5.1); Protein, Total 6.5 g/dL (6.4-8.2); Sodium Level 130 mmol/L (136-145)
--- NOTE | 2019-03-16 08:28 | PCM.PROGNOTE ---
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 She had Hemoccult positive stools as an outpatient. Hemoglobin was 8.4 in the emergency department, down from a baseline of approximately 9. Sodium was low at 127 and potassium was 5.7. CT scan of the abdomen and pelvis showed diffuse abdominal and pelvic ascites with subcutaneous edema. There were no acute findings. Her last colonoscopy was in April 2018 and at that time she had diverticulosis throughout the colon. She was admitted to the hospital for acute lower GI bleed and Dr. Garcia was consulted for possible endoscopy. Plavix was held. All events of the past 24 hours of been reviewed. Afebrile since admission Blood pressure at 3 AM this morning was low at 99/32 however the remainder of the blood pressures have been within normal limits. Hemoglobin is stable at 8.3. Platelets are low at 119,000 but this is chronic. Sodium is 130 which is within her baseline. Potassium today is 5.4. Serum bicarb is 29. Blood sugar record was reviewed and her blood sugars are under excellent control. Denies blood per rectum. Denies nausea, vomiting, abdominal pain. She did have abd pain last night but, it has resolved. Thinks she is ready for an advance in diet. - Physical Exam Vitals/I&O's: Vital Signs Temp Pulse Resp BP Pulse Ox 98.3 F 66 18 99/32 L 98 03/16/19 02:55 03/16/19 07:03 03/16/19 02:55 03/16/19 02:55 03/16/19 02:55 Oxygen Flow Rate (L/min) 2 Oxygen Delivery Method Nasal Cannula Weight: 207 lb 7.28 oz Body Mass Index (BMI) 34.5 Finger Stick Blood Glucose 99 Intake and Output for Last 24 Hours 03/14/19 03/15/19 03/16/19 23:59 23:59 23:59 Intake Total 240 / 240 1740 / 1740 60 60 Output Total 0 / 0 Balance 240 / 240 1740 / 1740 60 General: Alert, Oriented x3, Cooperative, No apparent distress Oral: Moist Mucosa, No Gingival or Mucosal Lesions/ Ulcerations Neck: Supple, Trachea Midline Lungs: Clear to auscultation, Diminished Cardiovascular: Regular rate, Regular Rhythm, Normal S1, Normal S2, No rub noted, No Gallop, - - Telemetry with Wenkebach, junctional escap beats and SB Abdomen: Bowel Sounds Present - not hyperactive, Soft, Non Tender, Distended Extremities: No cyanosis, No edema - kin over the LE's is wrinkled, - - very dry flakey skin Skin: No rashes Neurological: Cranial nerves II-XII grossly intact, Neuro grossly intact Psych/Mental Status: Normal Affect, Appropriate Laboratory Results 03/15/19 11:38: POC Glucose 84 03/15/19 17:17: POC Glucose 81 03/15/19 20:06: Hgb 8.7 L, Hct 29.0 L 03/15/19 23:49: POC Glucose 100 03/16/19 06:15: POC Glucose 107 03/16/19 06:57: WBC 5.1, RBC 2.74 L, Hgb 8.3 L, Hct 27.2 L, MCV 99.3 H, MCH 30.3, MCHC 30.5 L, RDW Std Deviation 63.3 H, RDW Coeff of Susan 17.9 H, Plt Count 119 L, MPV 8.9, Immature Gran % (Auto) 0.200, Neut % (Auto) 61.9, Lymph % (Auto) 22.3, [place] % (Auto) 10.3 H, Eos % (Auto) 4.1, Baso % (Auto) 1.2 H, Absolute Neuts (auto) 3.1, Absolute Lymphs (auto) 1.13, Nucleated RBC % 0 03/16/19 06:57: Sodium 130 L, Potassium 5.4 H, Chloride 95 L, Carbon Dioxide 29.0, Anion Gap 6, BUN 35 H, Creatinine 3.92 H, Estim Creat Clear Calc 10.54, Est GFR (MDRD) Af Amer 14 L, Est GFR (MDRD) Non-Af 12 L, BUN/Creatinine Ratio 8.9 L, Glucose 108 H, Calcium 7.5 L, Magnesium 2.0, Total Bilirubin 0.50, AST 17, ALT 10 L, Alkaline Phosphatase 115, Total Protein 6.5, Albumin 2.2 L, Globulin 4.3 H, Albumin/Globulin Ratio 0.5 L Current Medications Acetaminophen (Tylenol) 650 mg PO Q6H PRN PRN PRN Reason: Pain Score 1-02/27 Last Admin: 03/15/19 04:55 Dose: 650 mg Documented by: Atorvastatin Calcium (Lipitor) 80 mg PO QHS [facility] Last Admin: 03/15/19 21:06 Dose: 80 mg Documented by: Cholecalciferol (Vitamin D) 5,000 unit PO MoWeFr@0800 [facility] Cyclobenzaprine HCl (Cyclobenzaprine Hcl) 5 mg PO BID [facility] Last Admin: 03/15/19 21:07 Dose: 5 mg Documented by: Dextrose (D50w Syringe) 0 gm IV X1 PRN; Protocol PRN Reason: Hypoglycemia Docusate Sodium (Colace) 100 mg PO DAILY [facility] Last Admin: 03/15/19 09:24 Dose: 100 mg Documented by: Gabapentin (Neurontin) 100 mg PO BIDCM [facility] Last Admin: 03/15/19 17:19 Dose: 100 mg Documented by: Gabapentin (Neurontin) 200 mg PO QHS [facility] Last Admin: 03/15/19 21:12 Dose: 200 mg Documented by: Glucagon () 1 mg IM .X1 PRN PRN Reason: Hypoglycemia Hydralazine HCl (Apresoline) 50 mg PO BID [facility] Last Admin: 03/15/19 21:09 Dose: Not Given Documented by: Insulin Human Lispro (Humalog Kwikpen (Bkc)) 0 unit SC Q6 [facility]; Protocol Last Admin: 03/16/19 06:18 Dose: Not Given Documented by: Isosorbide Mononitrate (Imdur) 60 mg PO QHS [facility] Last Admin: 03/15/19 21:06 Dose: 60 mg Documented by: Isosorbide Mononitrate (Imdur) 90 mg PO BREAKFAST [facility] Last Admin: 03/15/19 09:24 Dose: 90 mg Documented by: Magnesium Hydroxide (Milk Of Magnesia) 30 ml PO DAILY PRN PRN Reason: Constipation Last Admin: 03/15/19 21:04 Dose: 30 ml Documented by: Melatonin (Melatonin) 3 mg PO QHS PRN PRN Reason: insomnia Last Admin: 03/15/19 21:04 Dose: 3 mg Documented by: Ondansetron HCl (Zofran) 4 mg IV Q8H PRN PRN PRN Reason: NAUSEA/VOMITING Oxycodone HCl (Oxyir) 5 mg PO Q6H PRN PRN PRN Reason: Pain Score 1-10/10 Last Admin: 03/16/19 03:34 Dose: 5 mg Documented by: Pantoprazole Sodium (Protonix) 40 mg PO DAILY [facility] Last Admin: 03/15/19 09:24 Dose: 40 mg Documented by: Pramipexole Dihydrochloride (Mirapex) 0.125 mg PO QHS [facility] Last Admin: 03/15/19 21:06 Dose: 0.125 mg Documented by: Promethazine HCl (Phenergan Tablet) 12.5 mg PO DAILY PRN PRN PRN Reason: NAUSEA Sevelamer Carbonate (Renvela) 3,200 mg PO TIDCM [facility] Last Admin: 03/15/19 17:19 Dose: 3,200 mg Documented by: Sodium Chloride () 10 - 40 ml IV UD PRN PRN Reason: SALINE FLUSH Last Admin: 03/15/19 06:17 Dose: 10 ml Documented by: Medical Necessity - Tobacco Use Smoking Status: Former smoker Assessment/Plan All Active Problems (Last Updated 02/17/19 @ 15:35 by Chaim Jauregui DO) GI bleed (Acute) Chest pain (Acute) Impressions 1. Acute lower GI bleed-suspect secondary to diverticular bleed. Has been seen by Dr. Garcia from general surgery who has no plans for intervention at this time since the hemoglobin is stable. If she requires surgery in the future she will need to be transferred to a tertiary facility due to multiple comorbid conditions. 2. End-stage renal disease on hemodialysis-we will have dialysis tomorrow on Sunday. 3. Hyperkalemia - will give 1 liter IV fluid today since the Lungs are clear and she has no peripheral edema. Give Lasix 40 mg and 1 dose of Kayexalate 4. Anemia of chronic kidney disease-stable 5. Hyponatremia-chronic 6. chronic conditions include DM II/HTN/coronary artery disease with history of PTCA/TAMI/pancytopenia/atrial fibrillation hyperlipidemia/diverticulosis/hypothyroidism - complicate care, management and prognosis Recheck lab at 1999. Aline, 1 LIT NS and Kayexalate now. Recheck the lab in the AM Advance diet to full liquid Change the Accuchecks to AC and HS May be able to DC home tomorrow after HD if the HH remains stable Code Visit Inpatient E&M: 98910 Subs Hosp L2
[2019-03-16] MEDS: Isosorbide Mononitrate 30 MG Tablet 90 MG PO (09:14)
[2019-03-16] MEDS: Gabapentin 100 MG Capsule PO ×2 (09:14→16:57)
[2019-03-16] MEDS: Docusate Sodium 100 MG Capsule PO (09:14)
[2019-03-16] MEDS: cycloBENZAPRine HCl 5 MG TABLET PO ×2 (09:14→21:30)
[2019-03-16] MEDS: SEVELAMER CARBONATE 800 MG TABLET 3200 MG PO ×2 (09:14→16:57)
[2019-03-16] MEDS: Pantoprazole Sodium 40 MG Tablet PO (09:14)
[2019-03-16 11:21] LABS: Bedside Glucose 101 mg/dL (70-110)
[2019-03-16 14:29] LABS: Hematocrit 30.9 % (37-47); Hemoglobin 9.2 g/dL (12.0-15.0)
[2019-03-16] MEDS: Sodium Polystyrene Sulfonate 15 GM/60 ML UDC 30 GM PO (14:42)
[2019-03-16] MEDS: 0.9% Normal Saline 1,000 ML 100 ML IV (14:42)
[2019-03-16] MEDS: Furosemide 40 MG/4 ML Vial IV (14:42)
[2019-03-16 17:01] LABS: Bedside Glucose 144 mg/dL (70-110)
[2019-03-16 20:36] LABS: Anion Gap 10 (5-15); BUN 37 mg/dL (7-18); BUN/Creat Ratio 8.7 RATIO (10-20); Calcium,Total 7.5 mg/dL (8.5-10.1); Chloride 98 mmol/L (98-107); Creatinine, Serum 4.23 mg/dL (0.55-1.02); EST Glomerular Filtration Rate 11 mL/min (>60); Est Glom Filt Rate - Afr Amer 13 mL/min (>60); Estimated Creatinine Clearance 9.77 ml/min; Glucose 171 mg/dL (74-106); Potassium 6.2 mmol/L (3.5-5.1); Sodium Level 130 mmol/L (136-145)
[2019-03-16] MEDS: hydrALAZINE 50 MG Tablet PO (21:30)
[2019-03-16] MEDS: Isosorbide Mononitrate 60 MG Tablet PO (21:30)
[2019-03-16] MEDS: Atorvastatin Calcium 80 MG Tablet PO (21:31)
[2019-03-16] MEDS: Pramipexole Di-HCl 0.125 MG Tablet PO (21:31)
[2019-03-16] MEDS: Gabapentin 100 MG Capsule 200 MG PO (21:31)
[2019-03-16 21:35] LABS: Potassium 5.2 mmol/L (3.5-5.1)
[2019-03-16] MEDS: Insulin Lispro 100 UNIT/ML INSULN.PEN SC (21:54)
[2019-03-16] MEDS: MELATONIN 3 MG TABLET PO (21:56)
[2019-03-16 22:50] LABS: Bedside Glucose 168 mg/dL (70-110)
[2019-03-17] VITALS (14 sets, daily range): BP systolic 117–152; BP diastolic 50–70; PULSE 66–91; RESP 16–20; TEMP 36.5–36.8; O2SAT 96–100
[2019-03-17] MEDS: oxyCODONE 5 MG Tablet PO ×3 (05:18→22:04)
[2019-03-17 06:38] LABS: Hematocrit 29.6 % (37-47)
[2019-03-17 06:41] LABS: Bedside Glucose 106 mg/dL (70-110)
[2019-03-17 06:56] LABS: Anion Gap 10 (5-15); BUN 39 mg/dL (7-18); BUN/Creat Ratio 8.5 RATIO (10-20); Calcium,Total 7.5 mg/dL (8.5-10.1); Chloride 95 mmol/L (98-107); EST Glomerular Filtration Rate 10 mL/min (>60); Est Glom Filt Rate - Afr Amer 12 mL/min (>60); Estimated Creatinine Clearance 8.98 ml/min; Glucose 105 mg/dL (74-106); Phosphorus 5.3 mg/dL (2.5-4.9); Potassium 4.9 mmol/L (3.5-5.1); Sodium Level 131 mmol/L (136-145)
[2019-03-17] MEDS: SEVELAMER CARBONATE 800 MG TABLET 3200 MG PO ×3 (08:12→17:39)
[2019-03-17] MEDS: Acetaminophen 325 MG Tablet 650 MG PO (08:16)
[2019-03-17] MEDS: Isosorbide Mononitrate 30 MG Tablet 90 MG PO (11:04)
[2019-03-17] MEDS: Pantoprazole Sodium 40 MG Tablet PO (11:05)
[2019-03-17] MEDS: Gabapentin 100 MG Capsule PO (11:05)
[2019-03-17] MEDS: hydrALAZINE 50 MG Tablet PO (11:05)
[2019-03-17] MEDS: cycloBENZAPRine HCl 5 MG TABLET PO ×2 (11:07→22:05)
[2019-03-17] MEDS: Docusate Sodium 100 MG Capsule PO (11:07)
[2019-03-17 11:25] LABS: Bedside Glucose 154 mg/dL (70-110)
--- NOTE | 2019-03-17 12:00 | PN.RENAL_ITS ---
Patient Problems: Active and Suspected Problems (Last Updated 02/17/19 @ 15:35 by Chaim Jauregui DO) GI bleed (Acute) Subjective: Episode of bloody stools this morning. Received Kayexalate yesterday for hyperkalemia. Complained of watery stools. Potassium improved from 6.2 last night to 4.9 today. Up with walker with physical therapy. - Physical Exam Vitals/I&O's: Vital Signs Temp Pulse Resp BP Pulse Ox 97.7 F L 71 16 152/61 H 100 03/17/19 11:02 03/17/19 11:05 03/17/19 11:02 03/17/19 11:02 03/17/19 11:02 Oxygen Flow Rate (L/min) 2 Oxygen Delivery Method Nasal Cannula Weight: 94.1 kg Body Mass Index (BMI) 34.5 Finger Stick Blood Glucose 99 Intake and Output for Last 24 Hours 03/15/19 03/16/19 03/17/19 23:59 23:59 23:59 Intake Total 1740 / 1740 780 / 780 1060 / 1060 Balance 1740 / 1740 780 / 780 1060 / 1060 General: Alert, Oriented x3, Cooperative Lungs: Clear to auscultation Cardiovascular: Regular rate, Murmur Abdomen: Bowel Sounds Present, Soft, Distended, Obese Extremities: Edema - Moderate bilateral lower extremity Skin: - - hyperpigmentation of skin in the lower extremities Psych/Mental Status: Normal Affect, Appropriate, Alert and oriented to time, place, person, mood and affect Laboratory Results 03/16/19 14:20: Hgb 9.2 L, Hct 30.9 L 03/16/19 16:55: POC Glucose 144 H 03/16/19 20:00: Sodium 130 L, Potassium 6.2 H*, Chloride 98, Carbon Dioxide 22.0, Anion Gap 10, BUN 37 H, Creatinine 4.23 H, Estim Creat Clear Calc 9.77, Est GFR (MDRD) Af Amer 13 L, Est GFR (MDRD) Non-Af 11 L, BUN/Creatinine Ratio 8.7 L, Glucose 171 H, Calcium 7.5 L 03/16/19 21:05: Potassium 5.2 H 03/16/19 21:28: POC Glucose 168 H 03/17/19 06:00: Sodium 131 L, Potassium 4.9, Chloride 95 L, Carbon Dioxide 26.0, Anion Gap 10, BUN 39 H, Creatinine 4.60 H, Estim Creat Clear Calc 8.98, Est GFR (MDRD) Af Amer 12 L, Est GFR (MDRD) Non-Af 10 L, BUN/Creatinine Ratio 8.5 L, Glucose 105, Calcium 7.5 L, Phosphorus 5.3 H 03/17/19 06:00: Hgb 9.0 L, Hct 29.6 L 03/17/19 06:33: POC Glucose 106 03/17/19 11:20: POC Glucose 154 H Current Medications Acetaminophen (Tylenol) 650 mg PO Q6H PRN PRN PRN Reason: Pain Score 1-02/27 Last Admin: 03/17/19 08:16 Dose: 650 mg Documented by: Atorvastatin Calcium (Lipitor) 80 mg PO QHS [facility] Last Admin: 03/16/19 21:31 Dose: 80 mg Documented by: Cholecalciferol (Vitamin D) 5,000 unit PO MoWeFr@0800 [facility] Last Admin: 03/17/19 11:04 Dose: 5,000 unit Documented by: Cyclobenzaprine HCl (Cyclobenzaprine Hcl) 5 mg PO BID [facility] Last Admin: 03/17/19 11:07 Dose: 5 mg Documented by: Dextrose (D50w Syringe) 0 gm IV X1 PRN; Protocol PRN Reason: Hypoglycemia Docusate Sodium (Colace) 100 mg PO DAILY [facility] Last Admin: 03/17/19 11:07 Dose: 100 mg Documented by: Emollient Ointment (Eucerin Intensive Repair) 1 applic TOPICAL BID [facility]; Protocol Last Admin: 03/17/19 11:06 Dose: 1 applicatio Documented by: Gabapentin (Neurontin) 100 mg PO BIDCM [facility] Last Admin: 03/17/19 11:05 Dose: 100 mg Documented by: Gabapentin (Neurontin) 200 mg PO QHS [facility] Last Admin: 03/16/19 21:31 Dose: 200 mg Documented by: Glucagon () 1 mg IM .X1 PRN PRN Reason: Hypoglycemia Hydralazine HCl (Apresoline) 50 mg PO BID [facility] Last Admin: 03/17/19 11:05 Dose: 50 mg Documented by: Insulin Human Lispro (Humalog Kwikpen (Bkc)) [facility]; Protocol Last Admin: 03/17/19 11:23 Dose: Not Given Documented by: Isosorbide Mononitrate (Imdur) 60 mg PO QHS [facility] Last Admin: 03/16/19 21:30 Dose: 60 mg Documented by: Isosorbide Mononitrate (Imdur) 90 mg PO BREAKFAST [facility] Last Admin: 03/17/19 11:04 Dose: 90 mg Documented by: Magnesium Hydroxide (Milk Of Magnesia) 30 ml PO DAILY PRN PRN Reason: Constipation Last Admin: 03/15/19 21:04 Dose: 30 ml Documented by: Melatonin (Melatonin) 3 mg PO QHS PRN PRN Reason: insomnia Last Admin: 03/16/19 21:56 Dose: 3 mg Documented by: Ondansetron HCl (Zofran) 4 mg IV Q8H PRN PRN PRN Reason: NAUSEA/VOMITING Oxycodone HCl (Oxyir) 5 mg PO Q6H PRN PRN PRN Reason: Pain Score 1-10/10 Last Admin: 03/17/19 11:21 Dose: 5 mg Documented by: Pantoprazole Sodium (Protonix) 40 mg PO DAILY [facility] Last Admin: 03/17/19 11:05 Dose: 40 mg Documented by: Pramipexole Dihydrochloride (Mirapex) 0.125 mg PO QHS [facility] Last Admin: 03/16/19 21:31 Dose: 0.125 mg Documented by: Promethazine HCl (Phenergan Tablet) 12.5 mg PO DAILY PRN PRN PRN Reason: NAUSEA Sevelamer Carbonate (Renvela) 3,200 mg PO TIDCM [facility] Last Admin: 03/17/19 11:09 Dose: 3,200 mg Documented by: Sodium Chloride () 10 - 40 ml IV UD PRN PRN Reason: SALINE FLUSH Last Admin: 03/15/19 06:17 Dose: 10 ml Documented by: Medical Necessity - Tobacco Use Smoking Status: Former smoker Assessment/Plan All Active Problems (Last Updated 02/17/19 @ 15:35 by Chaim Jauregui DO) GI bleed (Acute) Chest pain (Acute) 1. End-stage renal disease on dialysis Sunday, Sunday, Sunday. Dialysis later today 2. Lower GI bleed hemoglobin stable 3. Hyperkalemia resolved 4. Hypertension blood pressure stable 5. DM type II primary care service management 6. Fluid overload with hyponatremia. Remove fluid as tolerated on dialysis. 7. Liver cirrhosis with ascites requiring paracentesis.
--- NOTE | 2019-03-17 14:17 | PN_ITS ---
Patient Problems: Active and Suspected Problems (Last Updated 02/17/19 @ 15:35 by Chaim Jauregui DO) GI bleed (Acute) Subjective: Feels better, but states that she did have a bloody bowel movement this morning or last night after having Kayexalate for her elevated potassium. Would like to get back to the abdomen is as soon as possible. Vitals/I&O's: Vital Signs Temp Pulse Resp BP Pulse Ox 97.7 F L 71 16 152/61 H 100 03/17/19 11:02 03/17/19 11:05 03/17/19 11:02 03/17/19 11:02 03/17/19 11:02 Oxygen Flow Rate (L/min) 2 Oxygen Delivery Method Nasal Cannula Weight: 207 lb 7.28 oz Body Mass Index (BMI) 34.5 Finger Stick Blood Glucose 99 Intake and Output for Last 24 Hours 03/15/19 03/16/19 03/17/19 23:59 23:59 23:59 Intake Total 1740 / 1740 780 / 780 1300 / 1300 Balance 1740 / 1740 780 / 780 1300 / 1300 General: Alert, Oriented x3, Cooperative, No apparent distress HEENT: Atraumatic, PERRLA, EOMI, Normocephalic Oral: Moist Mucosa Neck: Supple, No JVD Lungs: Clear to auscultation, Normal air movement, No rhonchi, No wheeze, No rales, Diminished Cardiovascular: Regular rate, Regular Rhythm, Normal S1, Normal S2, No murmurs Abdomen: Soft, Non Tender, Non-Distended, No Hepato-splenomegaly, - - Ascites Extremities: Capillary Refill Less than 3 Seconds, Edema Skin: No rashes, No breakdown Neurological: Neuro grossly intact, Sensory exam intact to light touch and pain Psych/Mental Status: Normal Affect, Appropriate Laboratory Results 03/16/19 14:20: Hgb 9.2 L, Hct 30.9 L 03/16/19 16:55: POC Glucose 144 H 03/16/19 20:00: Sodium 130 L, Potassium 6.2 H*, Chloride 98, Carbon Dioxide 22.0, Anion Gap 10, BUN 37 H, Creatinine 4.23 H, Estim Creat Clear Calc 9.77, Est GFR (MDRD) Af Amer 13 L, Est GFR (MDRD) Non-Af 11 L, BUN/Creatinine Ratio 8.7 L, Glucose 171 H, Calcium 7.5 L 03/16/19 21:05: Potassium 5.2 H 03/16/19 21:28: POC Glucose 168 H 03/17/19 06:00: Sodium 131 L, Potassium 4.9, Chloride 95 L, Carbon Dioxide 26.0, Anion Gap 10, BUN 39 H, Creatinine 4.60 H, Estim Creat Clear Calc 8.98, Est GFR (MDRD) Af Amer 12 L, Est GFR (MDRD) Non-Af 10 L, BUN/Creatinine Ratio 8.5 L, Glucose 105, Calcium 7.5 L, Phosphorus 5.3 H 03/17/19 06:00: Hgb 9.0 L, Hct 29.6 L 03/17/19 06:33: POC Glucose 106 03/17/19 11:20: POC Glucose 154 H Current Medications Acetaminophen (Tylenol) 650 mg PO Q6H PRN PRN PRN Reason: Pain Score 1-02/27 Last Admin: 03/17/19 08:16 Dose: 650 mg Documented by: Atorvastatin Calcium (Lipitor) 80 mg PO QHS [facility] Last Admin: 03/16/19 21:31 Dose: 80 mg Documented by: Cholecalciferol (Vitamin D) 5,000 unit PO MoWeFr@0800 [facility] Last Admin: 03/17/19 11:04 Dose: 5,000 unit Documented by: Cyclobenzaprine HCl (Cyclobenzaprine Hcl) 5 mg PO BID [facility] Last Admin: 03/17/19 11:07 Dose: 5 mg Documented by: Dextrose (D50w Syringe) 0 gm IV X1 PRN; Protocol PRN Reason: Hypoglycemia Docusate Sodium (Colace) 100 mg PO DAILY [facility] Last Admin: 03/17/19 11:07 Dose: 100 mg Documented by: Emollient Ointment (Eucerin Intensive Repair) 1 applic TOPICAL BID [facility]; Protocol Last Admin: 03/17/19 11:06 Dose: 1 applicatio Documented by: [facility] Last Admin: 03/17/19 11:05 Dose: 100 mg Documented by: Gabapentin (Neurontin) 200 mg PO QHS [facility] Last Admin: 03/16/19 21:31 Dose: 200 mg Documented by: Glucagon () 1 mg IM .X1 PRN PRN Reason: Hypoglycemia Hydralazine HCl (Apresoline) 50 mg PO BID [facility] Last Admin: 03/17/19 11:05 Dose: 50 mg Documented by: Insulin Human Lispro (Humalog Kwikpen (Bkc)) 0 unit SC [facility]; Protocol Last Admin: 03/17/19 11:23 Dose: Not Given Documented by: Isosorbide Mononitrate (Imdur) 60 mg PO QHS [facility] Last Admin: 03/16/19 21:30 Dose: 60 mg Documented by: Isosorbide Mononitrate (Imdur) 90 mg PO BREAKFAST [facility] Last Admin: 03/17/19 11:04 Dose: 90 mg Documented by: Magnesium Hydroxide (Milk Of Magnesia) 30 ml PO DAILY PRN PRN Reason: Constipation Last Admin: 03/15/19 21:04 Dose: 30 ml Documented by: Melatonin (Melatonin) 3 mg PO QHS PRN PRN Reason: insomnia Last Admin: 03/16/19 21:56 Dose: 3 mg Documented by: Ondansetron HCl (Zofran) 4 mg IV Q8H PRN PRN PRN Reason: NAUSEA/VOMITING Oxycodone HCl (Oxyir) 5 mg PO Q6H PRN PRN PRN Reason: Pain Score 1-10/10 Last Admin: 03/17/19 11:21 Dose: 5 mg Documented by: Pantoprazole Sodium (Protonix) 40 mg PO DAILY [facility] Last Admin: 03/17/19 11:05 Dose: 40 mg Documented by: Pramipexole Dihydrochloride (Mirapex) 0.125 mg PO QHS [facility] Last Admin: 03/16/19 21:31 Dose: 0.125 mg Documented by: Promethazine HCl (Phenergan Tablet) 12.5 mg PO DAILY PRN PRN PRN Reason: NAUSEA Sevelamer Carbonate (Renvela) 3,200 mg PO TIDCM [facility] Last Admin: 03/17/19 11:09 Dose: 3,200 mg Documented by: Sodium Chloride () 10 - 40 ml IV UD PRN PRN Reason: SALINE FLUSH Last Admin: 03/15/19 06:17 Dose: 10 ml Documented by: STROKE Vital Signs/Narrative: Vital Signs Temp Pulse Resp BP Pulse Ox 03/17/19 11:05 71 03/17/19 11:02 97.7 F L 71 16 152/61 H 100 03/17/19 11:00 100 Medical Necessity - Tobacco Use Smoking Status: Former smoker Assessment/Plan All Active Problems (Last Updated 02/17/19 @ 15:35 by Chaim Jauregui DO) GI bleed (Acute) Chest pain (Acute) 1. Acute lower GI bleed -This is likely secondary to a diverticular bleed -States that she had an EGD and colonoscopy done at [facility] about a year ago -Is too high risk for any surgery to be done here -Hemoglobin is stable but she says that she thought she had a bloody bowel movement last night or today after having the Kayexalate -If her hemoglobin is stable tomorrow, will plan for discharge 2. End-stage renal disease on dialysis Sunday, Sunday, Sunday -Appreciate renal assistance -Continue with dialysis 3. CAD status post stent/chronic right ventricular systolic dysfunction/HTN -An echo in February 2018 demonstrated severely dilated right ventricle consisten t with right-sided heart failure -Continue with statin and Imdur as well as Coreg -Given the possibility of a GI bleed, will hold her aspirin and Plavix 4. Cirrhosis with ascites/normal cytopenia -This is likely secondary to congestion from right-sided heart failure as her hepatitis panel have been negative -She had a paracentesis about a week ago, and she gets these monthly -We will continue to monitor 5. DM 2 -She is on 11 units of Lantus every night, this is been held since she is n.p.o. -Continue with Accu-Cheks every 6 and sliding scale insulin -Can adjust her insulin she is taking consistent p.o. DVT: SCDs Code Visit Inpatient E&M: 36289 Subs Hosp L2
--- NOTE | 2019-03-17 15:39 | CASEMGMT ---
[facility]GO faxed clinicals to [facility] so they can obtain a pre-cert from insurance. Plan: d/c back to [facility] pending insurance approval. Marylou RAMIREZ MSW
--- NOTE | 2019-03-17 17:24 | PN.SURG_ITS ---
Patient Problems: Active and Suspected Problems (Last Updated 02/17/19 @ 15:35 by Chaim Jauergui DO) GI bleed (Acute) Subjective: patient had bloody bowel movement today - Physical Exam Vitals/I&O's: Vital Signs Temp Pulse Resp BP Pulse Ox 97.7 F L 73 16 152/61 H 100 03/17/19 11:02 03/17/19 15:50 03/17/19 11:02 03/17/19 11:02 03/17/19 11:02 Oxygen Flow Rate (L/min) 2 Oxygen Delivery Method Nasal Cannula Weight: 94.1 kg Body Mass Index (BMI) 34.5 Finger Stick Blood Glucose 99 Intake and Output for Last 24 Hours 03/15/19 03/16/19 03/17/19 23:59 23:59 23:59 Intake Total 1740 / 1740 780 / 780 1300 / 1300 Balance 1740 / 1740 780 / 780 1300 / 1300 General: Alert, Oriented x3 Oral: Moist Mucosa Neck: Supple Lungs: Normal air movement Abdomen: Soft, - - protuberant, with ascites Laboratory Results 03/16/19 20:00: Sodium 130 L, Potassium 6.2 H*, Chloride 98, Carbon Dioxide 22.0, Anion Gap 10, BUN 37 H, Creatinine 4.23 H, Estim Creat Clear Calc 9.77, Est GFR (MDRD) Af Amer 13 L, Est GFR (MDRD) Non-Af 11 L, BUN/Creatinine Ratio 8.7 L, Glucose 171 H, Calcium 7.5 L 03/16/19 21:05: Potassium 5.2 H 03/16/19 21:28: POC Glucose 168 H 03/17/19 06:00: Sodium 131 L, Potassium 4.9, Chloride 95 L, Carbon Dioxide 26.0, Anion Gap 10, BUN 39 H, Creatinine 4.60 H, Estim Creat Clear Calc 8.98, Est GFR (MDRD) Af Amer 12 L, Est GFR (MDRD) Non-Af 10 L, BUN/Creatinine Ratio 8.5 L, Glucose 105, Calcium 7.5 L, Phosphorus 5.3 H 03/17/19 06:00: Hgb 9.0 L, Hct 29.6 L 03/17/19 06:33: POC Glucose 106 03/17/19 11:20: POC Glucose 154 H Current Medications Acetaminophen (Tylenol) 650 mg PO Q6H PRN PRN PRN Reason: Pain Score 1-02/27 Last Admin: 03/17/19 08:16 Dose: 650 mg Documented by: Atorvastatin Calcium (Lipitor) 80 mg PO QHS [facility] Last Admin: 03/16/19 21:31 Dose: 80 mg Documented by: Cholecalciferol (Vitamin D) 5,000 unit PO MoWeFr@0800 [facility] Last Admin: 03/17/19 11:04 Dose: 5,000 unit Documented by: Cyclobenzaprine HCl (Cyclobenzaprine Hcl) 5 mg PO BID [facility] Last Admin: 03/17/19 11:07 Dose: 5 mg Documented by: Dextrose (D50w Syringe) 0 gm IV X1 PRN; Protocol PRN Reason: Hypoglycemia Docusate Sodium (Colace) 100 mg PO DAILY [facility] Last Admin: 03/17/19 11:07 Dose: 100 mg Documented by: Emollient Ointment (Eucerin Intensive Repair) 1 applic TOPICAL BID [facility]; Protocol Last Admin: 03/17/19 11:06 Dose: 1 applicatio Documented by: Gabapentin (Neurontin) 100 mg PO BIDCM [facility] Last Admin: 03/17/19 11:05 Dose: 100 mg Documented by: Gabapentin (Neurontin) 200 mg PO QHS [facility] Last Admin: 03/16/19 21:31 Dose: 200 mg Documented by: Glucagon () 1 mg IM .X1 PRN PRN Reason: Hypoglycemia Hydralazine HCl (Apresoline) 50 mg PO BID [facility] Last Admin: 03/17/19 11:05 Dose: 50 mg Documented by: Insulin Human Lispro (Humalog Kwikpen (Bkc)) 0 unit SC [facility]; Protocol Last Admin: 03/17/19 11:23 Dose: Not Given Documented by: Isosorbide Mononitrate (Imdur) 60 mg PO QHS [facility] Last Admin: 03/16/19 21:30 Dose: 60 mg Documented by: Isosorbide Mononitrate (Imdur) 90 mg PO BREAKFAST [facility] Last Admin: 03/17/19 11:04 Dose: 90 mg Documented by: Magnesium Hydroxide (Milk Of Magnesia) 30 ml PO DAILY PRN PRN Reason: Constipation Last Admin: 03/15/19 21:04 Dose: 30 ml Documented by: Melatonin (Melatonin) 3 mg PO QHS PRN PRN Reason: insomnia Last Admin: 03/16/19 21:56 Dose: 3 mg Documented by: Ondansetron HCl (Zofran) 4 mg IV Q8H PRN PRN PRN Reason: NAUSEA/VOMITING Oxycodone HCl (Oxyir) 5 mg PO Q6H PRN PRN PRN Reason: Pain Score 1-10/10 Last Admin: 03/17/19 11:21 Dose: 5 mg Documented by: Pantoprazole Sodium (Protonix) 40 mg PO DAILY [facility] Last Admin: 03/17/19 11:05 Dose: 40 mg Documented by: Pramipexole Dihydrochloride (Mirapex) 0.125 mg PO QHS [facility] Last Admin: 03/16/19 21:31 Dose: 0.125 mg Documented by: Promethazine HCl (Phenergan Tablet) 12.5 mg PO DAILY PRN PRN PRN Reason: NAUSEA Sevelamer Carbonate (Renvela) 3,200 mg PO TIDCM [facility] Last Admin: 03/17/19 11:09 Dose: 3,200 mg Documented by: Sodium Chloride () 10 - 40 ml IV UD PRN PRN Reason: SALINE FLUSH Last Admin: 03/15/19 06:17 Dose: 10 ml Documented by: Medical Necessity - Tobacco Use Smoking Status: Former smoker Assessment/Plan All Active Problems (Last Updated 02/17/19 @ 15:35 by Chaim Jauregui DO) GI bleed (Acute) Chest pain (Acute) Impression: rectal bleeding suspect diverticular bleeding Discussion/Plan: I have discussed above with patient and her family. I have explained to them, why any procedure would be high risk for the patient and explained that she has essentially three major organs compromised. Therefore, any procedure should be done with consideration of risk versus benefits. The patient understands. She did state that she had presented to [facility] with rectal bleeding and they could not find the source with colonoscopy Suspect that this is diverticular bleeding and intermittent. She has known diverticula scattered throughout the colon, I have explained that any one site can bleed and may be difficult to find and stop and usually would cease on its own Patient defers colonoscopy for now She states that she is ready for [facility] to [facility]
[2019-03-17 17:51] LABS: Bedside Glucose 116 mg/dL (70-110)
[2019-03-17] MEDS: Pramipexole Di-HCl 0.125 MG Tablet PO (22:04)
[2019-03-17] MEDS: Atorvastatin Calcium 80 MG Tablet PO (22:04)
[2019-03-17] MEDS: Gabapentin 100 MG Capsule 200 MG PO (22:05)
[2019-03-17] MEDS: Isosorbide Mononitrate 60 MG Tablet PO (22:05)
--- NOTE | 2019-03-17 22:10 | DIALYSIS ---
Hemodialysis completed x 4 hours. -4500ml off. stable t/o. tolerated well. Hemostasis obtained. gauze/tape applied. Report to Sherri JESUS at bedside given.
[2019-03-17] MEDS: MELATONIN 3 MG TABLET PO (22:16)
[2019-03-17 22:25] LABS: Bedside Glucose 106 mg/dL (70-110)
--- NOTE | 2019-03-17 23:37 | NURSING ---
Dialysis completed at 2130; removed 4500 ml fluid. Pt tolerated well, resting in bed. Marsha, RN
[2019-03-18] VITALS (8 sets, daily range): BP systolic 113–139; BP diastolic 48–60; PULSE 73–78; RESP 16–18; TEMP 36.6–37; O2SAT 95–100
[2019-03-18 07:07] LABS: Absolute Lymphocyte Count 1.18 X10^3/uL (0.83-4.51); Absolute Neutrophil Count 1.6 X10^3/uL (2.0-7.7); Basophil# 0.06 X10^3/uL; Basophil% 1.8 % (0-1); Hematocrit 28.5 % (37-47); Hemoglobin 8.7 g/dL (12.0-15.0); Lymphocyte # 1.18 X10^3/ul (4.0); Lymphocyte % 35.3 % (19-41); Mean Corp Hgb Conc 30.5 g/dL (32-36); Mean Corpuscular Volume 98.3 fL (81-99); Mean Platelet Vol. 9.1 fl (6.2-12.0); Monocyte# 0.39 X10^3/uL; Monocyte% 11.7 % (0-10); NRBC Flagged by Analyzer 0 % (0-5); Neutrophil % 47.9 % (47-70); POSITIVE MORPHOLOGY YES; Platelet Count 103 K/mm3 (150-450); RBC Distribution Width CV 17.3 % (11.6-14.6); RBC Distribution Width SD 62.3 fl (35.1-43.9); White Blood Count 3.3 K/mm3 (4.4-11.0)
[2019-03-18 07:08] LABS: Differential Indicated SCAN CRITERIA MET
[2019-03-18 07:10] LABS: Bedside Glucose 86 mg/dL (70-110)
--- NOTE | 2019-03-18 08:00 | PCM.TXEXTCAR ---
- Diet 03/16/19 13:54 Diet: Full Liquid Dietary Modifications:: Low Potassium Restriction Is pt able to select menu?: Yes - Routine Orders/Code Status Routine Lab Work: CBC Code Status: Full Code - 2-3 days - Wound(s) BLE Wound Type: Neuropathic/Diabetic Foot Ulcer - Therapies Physical Therapy: Eval and Treat Occupational Therapy: Eval and Treat - Allergies/Procedures Done in Hospital Allergies/Adverse Reactions: Allergies lisinopril Allergy (Severe, Verified 03/14/19 11:04) Angioedema nebivolol HCl [From Bystolic] Adverse Reaction (Severe, Verified 03/14/19 11:04) bradycardia BRADYCARDIA - Type of Care/Length of Stay Estimated LOS: Convalescent Care Less Than 30 days Type of Care Needed: Skilled Rehab Potential: Good Prognosis: Good - Additional Orders/Day of Discharge Day of Discharge: 03/18/19 - Dietary and Speech Recommendations Dietitian Recommendations/Changes: Recommend advance diet as tolerated to cardiac, low sodium w/ fluid restriction as indicated. Will provide Ensure Clear w/ meals while on clear liquid diet. - Follow Up Care Primary Care Physician: Davy Coleman MD [Primary Care Provider] - Please follow up with your Primary Care Physician in: 3-5 days
[2019-03-18] MEDS: oxyCODONE 5 MG Tablet PO ×2 (08:11→14:48)
--- NOTE | 2019-03-18 09:00 | PCM.PN.REN ---
Patient Problems: Active and Suspected Problems (Last Updated 02/17/19 @ 15:35 by Chaim Jauregui DO) GI bleed (Acute) Subjective: dialysis yesterday with 4.5L fluid removed. BP stable. Hgb stable. Going to [facility] later today. - Physical Exam Vitals/I&O's: Vital Signs Temp Pulse Resp BP Pulse Ox 98.1 F 77 16 113/48 L 98 03/18/19 08:30 03/18/19 08:30 03/18/19 08:30 03/18/19 08:30 03/18/19 08:30 Oxygen Flow Rate (L/min) 2 Oxygen Delivery Method Room Air Weight: 94.1 kg Body Mass Index (BMI) 34.5 Finger Stick Blood Glucose 99 Intake and Output for Last 24 Hours 03/16/19 03/17/19 03/18/19 23:59 23:59 23:59 Intake Total 780 / 780 1640 / 1640 120 / 120 Output Total 4500 / 4500 0 / 0 Balance 780 / 780 -2860 / -2860 120 / 120 General: Alert, Oriented x3, Cooperative, No apparent distress Lungs: Clear to auscultation Cardiovascular: Regular rate Abdomen: Bowel Sounds Present, Soft, Distended Extremities: Edema - mild BLE Laboratory Results 03/17/19 11:20: POC Glucose 154 H 03/17/19 17:31: POC Glucose 116 H 03/17/19 22:02: POC Glucose 106 03/18/19 06:01: POC Glucose 86 03/18/19 06:50: WBC 3.3 L, RBC 2.90 L, Hgb 8.7 L, Hct 28.5 L, MCV 98.3, MCH 30.0, MCHC 30.5 L, RDW Std Deviation 62.3 H, RDW Coeff of Susan 17.3 H, Plt Count 103 L, MPV 9.1, Immature Gran % (Auto) 0.300, Neut % (Auto) 47.9, Lymph % (Auto) 35.3, [place] % (Auto) 11.7 H, Eos % (Auto) 3.0, Baso % (Auto) 1.8 H, Absolute Neuts (auto) 1.6 L, Absolute Lymphs (auto) 1.18, Nucleated RBC % 0 Current Medications Acetaminophen (Tylenol) 650 mg PO Q6H PRN PRN PRN Reason: Pain Score 1-02/27 Last Admin: 03/17/19 08:16 Dose: 650 mg Documented by: Atorvastatin Calcium (Lipitor) 80 mg PO QHS [facility] Last Admin: 03/17/19 22:04 Dose: 80 mg Documented by: Cholecalciferol (Vitamin D) 5,000 unit PO MoWeFr@0800 [facility] Last Admin: 03/17/19 11:04 Dose: 5,000 unit Documented by: Cyclobenzaprine HCl (Cyclobenzaprine Hcl) 5 mg PO BID [facility] Last Admin: 03/17/19 22:05 Dose: 5 mg Documented by: Dextrose (D50w Syringe) 0 gm IV X1 PRN; Protocol PRN Reason: Hypoglycemia Docusate Sodium (Colace) 100 mg PO DAILY [facility] Last Admin: 03/17/19 11:07 Dose: 100 mg Documented by: Emollient Ointment (Eucerin Intensive Repair) 1 applic TOPICAL BID [facility]; Protocol Last Admin: 03/17/19 22:05 Dose: 1 applicatio Documented by: [facility] Last Admin: 03/17/19 22:09 Dose: Not Given Documented by: Gabapentin (Neurontin) 200 mg PO QHS [facility] Last Admin: 03/17/19 22:05 Dose: 200 mg Documented by: Glucagon () 1 mg IM .X1 PRN PRN Reason: Hypoglycemia Hydralazine HCl (Apresoline) 50 mg PO BID [facility] Last Admin: 03/17/19 22:08 Dose: Not Given Documented by: Insulin Human Lispro (Humalog Kwikpen (Bkc)) 0 unit SC [facility]; Protocol Last Admin: 03/18/19 07:33 Dose: Not Given Documented by: Isosorbide Mononitrate (Imdur) 60 mg PO QHS [facility] Last Admin: 03/17/19 22:05 Dose: 60 mg Documented by: Isosorbide Mononitrate (Imdur) 90 mg PO BREAKFAST [facility] Last Admin: 03/17/19 11:04 Dose: 90 mg Documented by: Magnesium Hydroxide (Milk Of Magnesia) 30 ml PO DAILY PRN PRN Reason: Constipation Last Admin: 03/15/19 21:04 Dose: 30 ml Documented by: Melatonin (Melatonin) 3 mg PO QHS PRN PRN Reason: insomnia Last Admin: 03/17/19 22:16 Dose: 3 mg Documented by: Ondansetron HCl (Zofran) 4 mg IV Q8H PRN PRN PRN Reason: NAUSEA/VOMITING Oxycodone HCl (Oxyir) 5 mg PO Q6H PRN PRN PRN Reason: Pain Score 1-10/10 Last Admin: 03/18/19 08:11 Dose: 5 mg Documented by: Pantoprazole Sodium (Protonix) 40 mg PO DAILY [facility] Last Admin: 03/17/19 11:05 Dose: 40 mg Documented by: Pramipexole Dihydrochloride (Mirapex) 0.125 mg PO QHS [facility] Last Admin: 03/17/19 22:04 Dose: 0.125 mg Documented by: Promethazine HCl (Phenergan Tablet) 12.5 mg PO DAILY PRN PRN PRN Reason: NAUSEA Sevelamer Carbonate (Renvela) 3,200 mg PO TIDCM [facility] Last Admin: 03/17/19 17:39 Dose: 3,200 mg Documented by: Sodium Chloride () 10 - 40 ml IV UD PRN PRN Reason: SALINE FLUSH Last Admin: 03/15/19 06:17 Dose: 10 ml Documented by: Medical Necessity - Tobacco Use Smoking Status: Former smoker Assessment/Plan All Active Problems (Last Updated 02/17/19 @ 15:35 by Chaim Jauregui DO) GI bleed (Acute) Chest pain (Acute) 1. End-stage renal disease on dialysis Sunday, Sunday, Sunday. 2. Lower GI bleed hemoglobin stable 3. Hyperkalemia resolved 4. Hypertension blood pressure stable 5. DM type II primary care service management 6. Liver cirrhosis with ascites requiring paracentesis intermittently as outpt.
[2019-03-18] MEDS: Gabapentin 100 MG Capsule PO (09:08)
[2019-03-18] MEDS: SEVELAMER CARBONATE 800 MG TABLET 3200 MG PO ×2 (09:08→11:58)
[2019-03-18] MEDS: Isosorbide Mononitrate 30 MG Tablet 90 MG PO (09:08)
[2019-03-18] MEDS: cycloBENZAPRine HCl 5 MG TABLET PO (09:09)
[2019-03-18] MEDS: Docusate Sodium 100 MG Capsule PO (09:09)
[2019-03-18] MEDS: Pantoprazole Sodium 40 MG Tablet PO (09:10)
--- NOTE | 2019-03-18 10:44 | PHA.DC.MR ---
Pharmacy Service has performed discharge medication reconciliation for this patient upon transfer to [facility]. The patient's discharge medication list was reviewed for discrepancies and discrepancies were resolved. Home Medications Cholecalciferol (Vitamin D3) [Vitamin D3] 5,000 unit PO MOWEFR 07/27/17 pantoprazole 40 mg tablet,delayed release 40 mg PO DAILY 08/21/17 Atorvastatin Calcium [Lipitor] 80 mg PO QHS 12/26/17 Losartan Potassium [Cozaar] 50 mg PO BID 12/26/17 Carvedilol 12.5 mg PO BID 05/10/18 Insulin Lispro [Humalog] See Protocol SC TIDCM 05/10/18 Insulin Glargine [Lantus SoloStar Pen] 11 units SC QHS 05/31/18 Cyclobenzaprine HCl 5 mg PO BID 06/11/18 B Complex W-C No.20/Folic Acid [Virt-Caps Softgel] 1 mg PO UD 09/20/18 Isosorbide Mononitrate 90 mg PO BREAKFAST 09/20/18 proMETHazine tablet [Phenergan tablet] 12.5 mg PO DAILY PRN PRN 09/20/18 Docusate Sodium [Colace] 100 mg PO DAILY 02/13/19 Gabapentin [Neurontin] 100 mg PO BID 02/13/19 Gabapentin [Neurontin] 200 mg PO QHS 02/13/19 Hydralazine HCl 100 mg PO BID 02/13/19 Isosorbide Mononitrate [Imdur] 60 mg PO QHS 02/13/19 Ropinirole HCl [Requip] 0.5 mg PO QHS 02/13/19 Sevelamer Carbonate 3,200 mg PO .COMPLEX 02/13/19 Magnesium Hydroxide [Milk Of Magnesia] 30 ml PO DAILY PRN PRN 03/14/19 Melatonin 3 mg PO QHS 03/14/19 Oxycodone HCl 5 mg PO DAILY 03/14/19 Oxycodone HCl 5 mg PO Q6H PRN PRN 03/14/19 Aspirin E.C. [Ecotrin] 81 mg PO DAILY@0800 #1 03/18/19 Clopidogrel Bisulfate [Plavix] 75 mg PO DAILY #0 03/18/19
[2019-03-18 12:15] LABS: Bedside Glucose 146 mg/dL (70-110)
--- NOTE | 2019-03-18 14:40 | CASEMGMT ---
Received insurance approval for patient. MARGO faxed orders to [place]. SW let patient know that we received approval for her to go back to [place]. SW told her SW has to call [facility] to arrange her transport. Marylou WHITTEN
--- NOTE | 2019-03-18 15:35 | PCM.DC.SUM ---
Discharge Date and Diagnosis - Problem List Patient Problems: Active and Suspected Problems (Last Updated 02/17/19 @ 15:35 by Chaim Jauregui DO) GI bleed (Acute) Date of Admission: 03/14/19 Date of Discharge: 03/18/19 - Primary Discharge Diagnosis Active and Suspected Problems (Last Updated 02/17/19 @ 15:35 by Chaim Jauregui DO) GI bleed (Acute) - Secondary Discharge Diagnosis Chronic Problems (Last Updated 02/17/19 @ 15:35 by Chaim Jauregui DO) Chronic renal failure (Chronic) History of abdominal paracentesis (Chronic 09/06/18) History of GI bleed (Chronic) History of non-ST elevation myocardial infarction (NSTEMI) (Chronic 07/05/16) Atherosclerotic heart disease of samish coronary artery without angina pectoris (Chronic) Stented coronary artery (Chronic) Cutting Balloon and TAMI (3.0X18 mm Xience) Proximal LAD 04/18/2012; Rotational atherectomy to proximal, id and distal RCA with two overlapping 4.0 X 38 Synergy TAMI ([facility] main) Hypervolemia (Chronic) Ascites (Chronic) Pancytopenia (Chronic) Other specified peripheral vascular diseases (Chronic) Afib (Chronic) Congenital coronary artery anomaly (Chronic) Bradycardia (Chronic) CAD (coronary artery disease) (Chronic) Diabetes mellitus, type II (Chronic) Hyperlipidemia (Chronic) Hypothyroidism (Chronic) Anemia in chronic kidney disease (Chronic) Hypertension (Chronic) End stage renal disease on dialysis (Chronic) Hospital Course and Treatment Imaging Results: CT Abd/Pelvis: IMPRESSION: Moderate degree of diffuse abdominal and pelvic ascites with subcutaneous edema and possible anasarca. Severe atherosclerosis of the aorta and the visceral vessels as described. Marked degree of the bilateral renal atrophy. Consults: Nephrology General Surgery Operations: None, - Procedures: None Summary of Care Provided: Per HPI: The patient is a 74 year old F with past medical history as listed which includes cirrhosis due to nonalcoholic steatohepatitis and history of lower GI bleed. She was admitted through the ED on 03/14/2019 with a complaint of rectal bleeding. Patient states she went to [place] for her [id number]'s about a week ago. While states she noticed that she was having bright red bleeding per rectum. This was painless. It continued until she returned to her senior care in [place]. She states while here they were checking her stool for occult blood as she started having dark stools. This was repeatedly positive. Today she started feeling very lightheaded and weak so they decided to bring her into the ED. She had no assisted palpitations or dizziness, abdominal pain, diarrhea or vomiting. Review of systems was otherwise negative. She had a colonoscopy done by Dr. Sinclair recently which showed diverticuli. On admission, CBC showed hemoglobin of 8.4 with baseline of around 9. Chemistry showed sodium of 127 which is chronically low and potassium of 5.7. Creatinine is 4.45. CT of the abdomen and pelvis showed moderate degree of diffuse abdominal and pelvic ascites with subcutaneous edema and possible anasarca, bilateral renal atrophy and severe atherosclerosis of the aorta and visceral vessels. Patient does have a history of ESRD and has not had her dialysis today. She has been admitted to be managed for lower GI bleed. General surgery was consulted from ED. Hospital Course: 1. Acute lower GI [id number] female who presents with a lower GI bleed. She has a history of cirrhosis secondary to nonalcoholic steatohepatitis. She gets paracentesis once a month for management of her ascites. She has had a colonoscopy at [facility] which just showed diverticuli. She does have considerable medical comorbidities and because her hemoglobin was stable and she denied any significant symptoms of acute blood loss, it was felt that we could defer colonoscopy oral surgery by general surgery at this time. This line hemoglobin is around 9 and she presented at 8.4 and did not receive any blood transfused she discharged and had a hemoglobin of 8.7. She does have a significant coronary artery disease history with previous stents and she is on aspirin and Plavix which she can resume as long as her hemoglobin remained stable over the course the next couple of days and does not have any significant appreciable bleeding. I discussed discharge with her and she actually would prefer to go to the senior care as of staying here for any type of intervention. She understands the risks and benefits of discharge. 2. CAD status post stent/chronic right ventricular systolic dysfunction/HTN-echo in February 2018 demonstrated severely dilated right ventricle with right-sided heart failure. She is continued on all of her home medications except for the aspirin and Plavix which were held due to bleeding. She can restart these in a couple of days if her hemoglobin remained stable. 3. Her other medical diagnoses were evaluated and all of her home medications were continued where appropriate Patient Problems: Active and Suspected Problems (Last Updated 02/17/19 @ 15:35 by Chaim Jauregui DO) GI bleed (Acute) - Physical Exam Vitals/I&O's: Vital Signs Temp Pulse Resp BP Pulse Ox 97.9 F 77 16 139/53 H 100 03/18/19 14:45 03/18/19 15:29 03/18/19 14:45 03/18/19 14:45 03/18/19 14:45 Oxygen Flow Rate (L/min) 2 Oxygen Delivery Method Room Air Weight: 207 lb 7.28 oz Body Mass Index (BMI) 34.5 Finger Stick Blood Glucose 99 Intake and Output for Last 24 Hours 03/16/19 03/17/19 03/18/19 23:59 23:59 23:59 Intake Total 780 / 780 1640 / 1640 360 / 360 Output Total 4500 / 4500 0 / 0 Balance 780 / 780 -2860 / -2860 360 / 360 General: Alert, Oriented x3, Cooperative, No apparent distress HEENT: Atraumatic, PERRLA, EOMI, Normocephalic Oral: Moist Mucosa Neck: Supple, No JVD Lungs: Clear to auscultation, Normal air movement, No rhonchi, No wheeze, No rales, Diminished Cardiovascular: Regular rate, Regular Rhythm, Normal S1, Normal S2, No murmurs Abdomen: Soft, Non Tender, Non-Distended, No Hepato-splenomegaly, - - Ascites Extremities: Capillary Refill Less than 3 Seconds, Edema Skin: No rashes, No breakdown Neurological: Neuro grossly intact, Sensory exam intact to light touch and pain Psych/Mental Status: Normal Affect, Appropriate Laboratory Results 03/17/19 17:31: POC Glucose 116 H 03/17/19 22:02: POC Glucose 106 03/18/19 06:01: POC Glucose 86 03/18/19 06:50: WBC 3.3 L, RBC 2.90 L, Hgb 8.7 L, Hct 28.5 L, MCV 98.3, MCH 30.0, MCHC 30.5 L, RDW Std Deviation 62.3 H, RDW Coeff of Susan 17.3 H, Plt Count 103 L, MPV 9.1, Immature Gran % (Auto) 0.300, Neut % (Auto) 47.9, Lymph % (Auto) 35.3, [place] % (Auto) 11.7 H, Eos % (Auto) 3.0, Baso % (Auto) 1.8 H, Absolute Neuts (auto) 1.6 L, Absolute Lymphs (auto) 1.18, Nucleated RBC % 0 03/18/19 11:56: POC Glucose 146 H Current Medications Acetaminophen (Tylenol) 650 mg PO Q6H PRN PRN PRN Reason: Pain Score 1-02/27 Last Admin: 03/17/19 08:16 Dose: 650 mg Documented by: Atorvastatin Calcium (Lipitor) 80 mg PO QHS [facility] Last Admin: 03/17/19 22:04 Dose: 80 mg Documented by: Cholecalciferol (Vitamin D) 5,000 unit PO MoWeFr@0800 [facility] Last Admin: 03/17/19 11:04 Dose: 5,000 unit Documented by: Cyclobenzaprine HCl (Cyclobenzaprine Hcl) 5 mg PO BID [facility] Last Admin: 03/18/19 09:09 Dose: 5 mg Documented by: Dextrose (D50w Syringe) 0 gm IV X1 PRN; Protocol PRN Reason: Hypoglycemia Docusate Sodium (Colace) 100 mg PO DAILY [facility] Last Admin: 03/18/19 09:09 Dose: 100 mg Documented by: Emollient Ointment (Eucerin Intensive Repair) 1 applic TOPICAL BID [facility]; Protocol Last Admin: 03/18/19 09:10 Dose: 1 applicatio Documented by: [facility] Admin: 03/18/19 09:08 Dose: 100 mg Documented by: Gabapentin (Neurontin) 200 mg PO QHS [facility] Last Admin: 03/17/19 22:05 Dose: 200 mg Documented by: Glucagon () 1 mg IM .X1 PRN PRN Reason: Hypoglycemia Hydralazine HCl (Apresoline) 50 mg PO BID [facility] Last Admin: 03/18/19 09:09 Dose: Not Given Documented by: Insulin Human Lispro (Humalog Kwikpen (Bkc)) 0 unit SC [facility]; Protocol Last Admin: 03/18/19 11:57 Dose: Not Given Documented by: Isosorbide Mononitrate (Imdur) 60 mg PO QHS [facility] Last Admin: 03/17/19 22:05 Dose: 60 mg Documented by: Isosorbide Mononitrate (Imdur) 90 mg PO BREAKFAST [facility] Last Admin: 03/18/19 09:08 Dose: 90 mg Documented by: Magnesium Hydroxide (Milk Of Magnesia) 30 ml PO DAILY PRN PRN Reason: Constipation Last Admin: 03/15/19 21:04 Dose: 30 ml Documented by: Melatonin (Melatonin) 3 mg PO QHS PRN PRN Reason: insomnia Last Admin: 03/17/19 22:16 Dose: 3 mg Documented by: Ondansetron HCl (Zofran) 4 mg IV Q8H PRN PRN PRN Reason: NAUSEA/VOMITING Oxycodone HCl (Oxyir) 5 mg PO Q6H PRN PRN PRN Reason: Pain Score 1-10/10 Last Admin: 03/18/19 14:48 Dose: 5 mg Documented by: Pantoprazole Sodium (Protonix) 40 mg PO DAILY [facility] Last Admin: 03/18/19 09:10 Dose: 40 mg Documented by: Pramipexole Dihydrochloride (Mirapex) 0.125 mg PO QHS [facility] Last Admin: 03/17/19 22:04 Dose: 0.125 mg Documented by: Promethazine HCl (Phenergan Tablet) 12.5 mg PO DAILY PRN PRN PRN Reason: NAUSEA Sevelamer Carbonate (Renvela) 3,200 mg PO TIDCM [facility] Last Admin: 03/18/19 11:58 Dose: 3,200 mg Documented by: Sodium Chloride () 10 - 40 ml IV UD PRN PRN Reason: SALINE FLUSH Last Admin: 03/15/19 06:17 Dose: 10 ml Documented by: Home Medications: Medications to take at Discharge Cholecalciferol (Vitamin D3) [Vitamin D3] 5,000 unit PO MOWEFR 07/27/17 pantoprazole 40 mg tablet,delayed release 40 mg PO DAILY 08/21/17 Atorvastatin Calcium [Lipitor] 80 mg PO QHS 12/26/17 Losartan Potassium [Cozaar] 50 mg PO BID 12/26/17 Carvedilol 12.5 mg PO BID 05/10/18 Insulin Lispro [Humalog] See Protocol [facility] 05/10/18 Insulin Glargine [Lantus SoloStar Pen] 11 units SC QHS 05/31/18 Cyclobenzaprine HCl 5 mg PO BID 06/11/18 B Complex W-C No.20/Folic Acid [Virt-Caps Softgel] 1 mg PO UD 09/20/18 Isosorbide Mononitrate 90 mg PO BREAKFAST 09/20/18 proMETHazine tablet [Phenergan tablet] 12.5 mg PO DAILY PRN PRN 09/20/18 Docusate Sodium [Colace] 100 mg PO DAILY 02/13/19 Gabapentin [Neurontin] 100 mg PO BID 02/13/19 Gabapentin [Neurontin] 200 mg PO QHS 02/13/19 Hydralazine HCl 100 mg PO BID 02/13/19 Isosorbide Mononitrate [Imdur] 60 mg PO QHS 02/13/19 Ropinirole HCl [Requip] 0.5 mg PO QHS 02/13/19 Sevelamer Carbonate 3,200 mg PO .COMPLEX 02/13/19 Magnesium Hydroxide [Milk Of Magnesia] 30 ml PO DAILY PRN PRN 03/14/19 Melatonin 3 mg PO QHS 03/14/19 Oxycodone HCl 5 mg PO DAILY 03/14/19 Oxycodone HCl 5 mg PO Q6H PRN PRN 03/14/19 Aspirin E.C. [Ecotrin] 81 mg PO DAILY@0800 #1 03/18/19 Clopidogrel Bisulfate [Plavix] 75 mg PO DAILY #0 03/18/19 Primary Care Physician: Davy Coleman MD [Primary Care Provider] - Please follow up with your Primary Care Physician in: 3-5 days Disposition: Longterm facility Minutes spent on discharge:: 35 Patient Condition:: Stable Medical Necessity - Tobacco Use Smoking Status: Former smoker Meaningful Use Info Meaningful Use Diagnoses (Choose all that apply): None applicable Code Visit Inpatient E&M: 70973 Disch Hosp
--- NOTE | 2019-03-18 15:58 | CASEMGMT ---
[facility]GO was on hold for at least 45 minutes with 28msec before SW was able to get anyone on the phone. They did not feel they would be able to get a wc van for patient so they asked if patient could go by [employer] (basically a cab service). MARGO told her that SW would have to ask patient if she would be ok with getting into a stranger's care as an elderly lady. MARGO spoke with patient and she said she will call her to come and get her. She called her and he is on his way. MARGO let RN and Candelaria at [facility] know this information. Plan: d/c back to [facility] under skilled level of care. Patient's transported her via private vehicle. Marylou RAMIREZ MSW
== END 2019-03-18 15:59 | disposition skilled nursing facility (03) | DRG 377 ==
LOC: ED 13:49 → PCU 14:17
PROVIDERS: Hospitalist; Internal Medicine; Admitting Provider Student in an Organized Health Care Education/Training Program; Emergency Provider Emergency Medicine; Family Provider Family Medicine; PCP Family Medicine; Referring Provider Student in an Organized Health Care Education/Training Program; Visit Provider Family Medicine
DX: K57.31 Diverticulosis of large intestine without perforation or abscess with bleeding (principal); N18.6 End stage renal disease; E87.1 Hypo-osmolality and hyponatremia; R18.8 Other ascites; I13.2 Hypertensive heart and chronic kidney disease with heart failure and with stage 5 chronic kidney disease, or end stage renal disease; Z99.2 Dependence on renal dialysis; I25.10 Atherosclerotic heart disease of native coronary artery without angina pectoris; E11.22 Type 2 diabetes mellitus with diabetic chronic kidney disease; K74.60 Unspecified cirrhosis of liver; K75.81 Nonalcoholic steatohepatitis (NASH); E87.5 Hyperkalemia; Z87.891 Personal history of nicotine dependence; Z79.82 Long term (current) use of aspirin; Z79.4 Long term (current) use of insulin; Z95.5 Presence of coronary angioplasty implant and graft; E03.9 Hypothyroidism, unspecified; E87.70 Fluid overload, unspecified; I25.2 Old myocardial infarction; E78.5 Hyperlipidemia, unspecified; D63.1 Anemia in chronic kidney disease; Z79.02 Long term (current) use of antithrombotics/antiplatelets; I50.810 Right heart failure, unspecified
CPT/HCPCS: 36415; 74176; 80048; 80053; 80076; 82962; 83690; 83735; 84100; 84132; 85014; 85018; 85025; 90937; 93005; 97161; 97166; 97530; 97535; 99285; J7030; A4216; G0257; J1940

== ENCOUNTER → 2019-03-31 12:36 | Outpatient (CLI) | payer MEDICARE, SELFPAY ==
[2018-06-11 11:00] VITALS: BMI 27.1
[2019-03-14 14:22] VITALS: BMI 34.5
[2019-03-31 12:52] LABS: Hemoglobin 7.7 g/dL (12.0-15.0)
== END ==
PROVIDERS: Family Provider Family Medicine; PCP Family Medicine; Referring Provider Internal Medicine Nephrology; Visit Provider Internal Medicine Nephrology
DX: D64.9 Anemia, unspecified (principal); K62.5 Hemorrhage of anus and rectum
CPT/HCPCS: 85018

== ENCOUNTER 2019-04-01 19:33 | Inpatient (IN) | payer MEDICARE, SELFPAY ==
[2018-06-11 11:00] VITALS: BMI 27.1
[2019-03-14 14:22] VITALS: BMI 34.5
[2019-04-01] VITALS (8 sets, daily range): BP systolic 97–162; BP diastolic 22–59; PULSE 69–80; RESP 11–18; TEMP 36.4–36.6; O2SAT 96–100; BMI 35.1; BMI 33.8
--- NOTE | 2019-04-01 19:46 | EKG12_ITS ---
Test Reason : GI BLEED Blood Pressure : / mmHG Vent. Rate : 072 BPM Atrial Rate : 060 BPM P-R Int : 000 ms QRS Dur : 088 ms QT Int : 404 ms P-R-T Axes : 000 035 012 degrees QTc Int : 442 ms Atrial fibrillation Low voltage QRS Nonspecific T wave abnormality Abnormal ECG Confirmed by JENN SPRAGUE ([id number]), restaurant expeditor ÁNGEL CALDERON ([id number]) on 04/04/2019 11:15:49 AM Referred By: Chaim Jauregui Confirmed By:JENN SPRAGUE
--- NOTE | 2019-04-01 19:53 | ED.VIS.GEN ---
History of Present Illness Chief Complaint: GI Bleed Detail of Chief Complaint: Blood per rectum Informant: Patient Onset: Days Context: Gradual Onset Timing: Continuous Quality: GI bleeding Location: Presumed lower Current Severity: Moderate Maximum Severity: Moderate Worsened by: History of diverticulosis Relieved by: Nothing Associated Symptoms: Malaise, weakness, dyspnea on exertion Narrative: Patient elderly woman with multiple significant past medical problems who presents because her hemoglobin was 6. Yesterday it was 7.7. The results are from 2 different labs. Patient describes red to dark maroon stool past several days. She states Dr. Yazan Manzo placed her fistula. She was told she cannot have a colonoscopy because she is very high risk. She denies nausea or vomiting. She denies abdominal pain. She denies chest pain. Patient is on hemodialysis Sunday, Sunday and Sunday. She states her anticoagulant was discontinued. She has required transfusions in the past. She denies bruising easily. Prior similar symptoms: Yes Recent Illness/Hospitalization: Yes - Past Medical History (1) GI bleed Status: Acute (2) Afib Status: Chronic (3) Anemia in chronic kidney disease Status: Chronic (4) Ascites Status: Chronic (5) CAD (coronary artery disease) Status: Chronic (6) Diabetes mellitus, type II Status: Chronic (7) History of non-ST elevation myocardial infarction (NSTEMI) Status: Chronic (8) Hyperlipidemia Status: Chronic (9) Hypertension Status: Chronic (10) Hypothyroidism Status: Chronic (11) Other specified peripheral vascular diseases Status: Chronic (12) Pancytopenia Status: Chronic (13) Stented coronary artery Status: Chronic Comment: Cutting Balloon and TAMI (3.0X18 mm Xience) Proximal LAD 04/18/2012; Rotational atherectomy to proximal, id and distal RCA with two overlapping 4.0 X 38 Synergy TAMI ([facility] main) Past Medical History - Allergies and Home Meds Allergies/Adverse Reactions: Allergies lisinopril Allergy (Severe, Verified 03/14/19 11:04) Angioedema nebivolol HCl [From Bystolic] Adverse Reaction (Severe, Verified 03/14/19 11:04) bradycardia BRADYCARDIA Primary Care Physician: Davy Coleman MD [STAFF PHYSICIAN] - Prior records reviewed: Yes Surgical History: appendectomy, cholecystectomy, hysterectomy, total knee arthroplasty, - - Left upper extremity fistula, back surgery, colon resection with history of diverticulitis, GI bleed, right knee surgery, right total knee replacement, right foot surgery, left knee surgery, left foot surgery, PCI. Lives: Alone Smoking Status: Former smoker Alcohol: None Drugs: None - Family History Maternal Family History: Family History (Last Reviewed 02/13/19 @ 17:11 by AYDIN Funez) Sister Diabetes Heart disease Hypertension Anemia Family History: Reports: Cancer - uterine Paternal Family History: Family History (Last Reviewed 02/13/19 @ 17:11 by AYDIN Funez) Sister Diabetes Heart disease Hypertension Anemia Family History: Reports: Cancer Sibling Family History: Family History (Last Reviewed 02/13/19 @ 17:11 by AYDIN Funez) Sister Diabetes Heart disease Hypertension Anemia Family History: Reports: Diabetes Review of Systems General: Reports: Malaise. Denies: Chills, Fever, Subjective, Sweats Eyes: Denies: Visual changes - bilaterally, Blurred Vision - bilaterally ENT: Denies: Bilateral ear pain, Rhinorrhea, Sore throat Cardiovascular: Denies: Chest pain, Palpitations, Heart racing Respiratory: Reports: Dyspnea on exertion. Denies: Dyspnea, Cough, Sputum, Orthopnea Gastrointestinal: Reports: Melena, Hematochezia. Denies: Abdominal pain, Nausea, Vomiting, Diarrhea Genitourinary: Reports: Dysuria Musculoskeletal: Reports: Back pain - Patient has history of chronic back pain. She has bowel bladder dysfunction. She denies saddle paresthesia or anesthesia. She denies radicular pain.. Denies: Myalgias, Arthralgias, Neck pain, Extremity Pain Skin: Denies: Rash, Wounds Neurological: Reports: Weakness Psych: Denies: Depression Hematologic: Denies: Easy bruising, Easy bleeding Allergy: Denies: Uticaria, Swelling of the mouth Physical Exam Vital Signs/Narrative: Vital Signs Temp Pulse Resp BP Pulse Ox 04/01/19 19:34 97.7 F L 80 16 154/55 H 99 Inital Vital Signs reviewed: Yes General: Well nourished, Well developed, Obese, Unkempt, No Acute Distress Head: Normocephalic, Atraumatic Eyes: Perrl, EOMI, Pale conjunctiva. Negative for: Scleral icterus ENT: No rhinorrhea, TM's clear, Dry mucous membranes. Negative for: Moist mucous membranes Neck: Supple, Nontender, No lymphadenopathy, No JVD Cardiovascular: Regular rate, No murmurs, Normal S1, Normal S2, Irregular Respiratory: No distress, CTA bilaterally, Chest nontender Abdomen: Soft, Nontender, Nondistended, Hyperactive bowel sounds. Negative for: Normal bowel sounds Rectal: - - Dark red/maroon Back: Normal Inspection. Negative for: Nontender, CVA tenderness Extremities: Nontender, No edema Skin: No rash, Pallor. Negative for: Cyanosis, Diaphoresis, Jaundice Neurological: Alert, Oriented x3, Cranial nerves II-XII grossly intact, Normal Strength, Normal Sensation Psychological: Normal affect Diagnostic/Tx/Re-eval Laboratory Results 04/01/19 04/01/19 04/01/19 20:00 20:00 20:00 WBC 4.5 RBC 2.17 L Hgb 6.4 L Hct 21.7 L MCV 100.0 H MCH 29.5 MCHC 29.5 L RDW Std Deviation 64.9 H RDW Coeff of Susan 18.2 H Plt Count 134 L MPV 9.8 Sodium 131 L Potassium 5.0 Chloride 94 L Carbon Dioxide 31.0 Anion Gap 6 BUN 36 H Creatinine 3.69 H Estim Creat Clear Calc 11.67 Est GFR (MDRD) Af Amer 15 L Est GFR (MDRD) Non-Af 13 L BUN/Creatinine Ratio 9.8 L Glucose 152 H Lactic Acid 1.8 Calcium 8.2 L Crossmatch 04/01/19 20:00 WBC RBC Hgb Hct MCV MCH MCHC RDW Std Deviation RDW Coeff of Susan Plt Count MPV Sodium Potassium Chloride Carbon Dioxide Anion Gap BUN Creatinine Estim Creat Clear Calc Est GFR (MDRD) Af Amer Est GFR (MDRD) Non-Af BUN/Creatinine Ratio Glucose Lactic Acid Calcium Crossmatch See Detail Hemoglobin is down to 1.3 g from yesterday. Lactate is normal. Case was discussed with Dr. Tee who has seen patient in the past. He requested admission to hospitalist with bleeding scan and he will see her later tomorrow and determine what best to do for her. - Rhythm Strip Rhythm Strip: A-fib Rate: 82 Ectopy: None - EKG Initial EKG Interpretation: Atrial Fibrillation - Ventricular rate is 72. QRS duration 88. QT duration 404 ms. Perdido is normal. There is evidence of low voltage. There is artifact as well. - Medical Decision Making Patient is an elderly woman who does not look well. She appears pale. She has a GI bleed. Will obtain CBC to assess H&H compared to recent blood work obtained this month. Basic metabolic panel was obtained to assess BUN to creatinine ratio. PT/INR PTT were obtained to rule out coagulopathy. Patient has been typed and crossed and will administer 1 unit of blood based on the fact that she is symptomatic and has a lab sheet that indicates her hemoglobin is 6. KG was obtained to assess for ischemia and confirm suspicion of A. fib. Dr. Forte has performed colonoscopy and EGD on patient he was paged. He reviewed his notes. He last performed endoscopy April 2018. Bleeding source at that time was not found. He recommended admission to hospitalist with bleeding scan and if bleeding scan reveals source of bleeding and something can be done he will gladly intervene. The hospitalist was paged ED Disposition - Plan for ED Patient: Disposition: Acute Care Hospital [facility] Diagnosis: GI bleed, Anemia due to acute blood loss, Encounter for hemodialysis for end-stage renal disease, Atrial fibrillation Referrals: Davy Coleman MD [STAFF PHYSICIAN] -
[2019-04-01] MEDS: Ondansetron 4 MG/2 ML Vial IV (20:07)
[2019-04-01] MEDS: Morphine 4 MG/ML Syringe IV (20:07)
[2019-04-01 20:10] LABS: Hematocrit 21.7 % (37-47); Hemoglobin 6.4 g/dL (12.0-15.0); Mean Corp Hgb Conc 29.5 g/dL (32-36); Mean Corpuscular Hgb 29.5 pg (27.0-32.0); Mean Platelet Vol. 9.8 fl (6.2-12.0); Platelet Count 134 K/mm3 (150-450); RBC Distribution Width CV 18.2 % (11.6-14.6); RBC Distribution Width SD 64.9 fl (35.1-43.9); Red Blood Count 2.17 M/mm3 (4.2-5.4); White Blood Count 4.5 K/mm3 (4.4-11.0)
[2019-04-01 20:30] LABS: Anion Gap 6 (5-15); BUN 36 mg/dL (7-18); BUN/Creat Ratio 9.8 RATIO (10-20); Calcium,Total 8.2 mg/dL (8.5-10.1); Chloride 94 mmol/L (98-107); Creatinine, Serum 3.69 mg/dL (0.55-1.02); EST Glomerular Filtration Rate 13 mL/min (>60); Est Glom Filt Rate - Afr Amer 15 mL/min (>60); Estimated Creatinine Clearance 11.67 ml/min; Glucose 152 mg/dL (74-106); Sodium Level 131 mmol/L (136-145)
[2019-04-01 20:39] LABS: International Normalized Ratio 1.4; Prothrombin Time (Protime)PT. 17.1 SECONDS (11.7-14.9)
[2019-04-01 20:40] LABS: Partial Thromboplast Time 36.5 Seconds (24.1-36.2)
[2019-04-01 20:45] LABS: Lactic Acid 1.8 mmol/L (0.4-2.0)
--- NOTE | 2019-04-01 21:29 | HP.PCM_ITS ---
Problem List (1) GI bleed Status: Acute Qualifiers: GI bleed type/associated pathology: unspecified gastrointestinal hemorrhage type Qualified Code(s): K92.2 - Gastrointestinal hemorrhage, unspecified (2) Anemia due to acute blood loss Status: Acute History of Present Illness Date of Admission: 04/01/19 Chief Complaint: bright red blood per rectum The patient is a 74 year old F who was in her normal state of health but then started experiencing bright red blood per her rectum that became black at one point. Patient has been feeling dizzy, weak and more fatigued during this time. Patient had drop in hemoglobin and sent to the emergency room where hemoglobin was found to be 6.4. Patient does not currently have any bleeding at this point time. Patient was ordered 2 units of packed red blood cells. Dr. Tee, of general surgery, was contacted and advised for a bleeding scan and may consider doing a colonoscopy in the coming days. [] Past Medical History Past Medical History (Chronic Problems): Chronic Problems (Last Updated 02/17/19 @ 15:35 by Chaim Jauregui DO) Chronic renal failure (Chronic) History of abdominal paracentesis (Chronic 09/06/18) History of GI bleed (Chronic) History of non-ST elevation myocardial infarction (NSTEMI) (Chronic 07/05/16) Atherosclerotic heart disease of [place] coronary artery without angina pectoris (Chronic) Stented coronary artery (Chronic) Cutting Balloon and TAMI (3.0X18 mm Xience) Proximal LAD 04/18/2012; Rotational atherectomy to proximal, id and distal RCA with two overlapping 4.0 X 38 Synergy TAMI ([facility] main) Hypervolemia (Chronic) Ascites (Chronic) Pancytopenia (Chronic) Other specified peripheral vascular diseases (Chronic) Afib (Chronic) Congenital coronary artery anomaly (Chronic) Bradycardia (Chronic) CAD (coronary artery disease) (Chronic) Diabetes mellitus, type II (Chronic) Hyperlipidemia (Chronic) Hypothyroidism (Chronic) Anemia in chronic kidney disease (Chronic) Hypertension (Chronic) End stage renal disease on dialysis (Chronic) Medical History: Medical History (Last Reviewed 04/01/19 @ 21:33 by Chaim Jauregui DO) History of GI bleed (Chronic) Z87.19 History of non-ST elevation myocardial infarction (NSTEMI) (Chronic) Onset Date: 07/05/16 I25.2 Atherosclerotic heart disease of [place] coronary artery without angina pectoris (Chronic) I25.10 Ascites (Chronic) R18.8 Pancytopenia (Chronic) D61.818 Other specified peripheral vascular diseases (Chronic) I73.89 Afib (Chronic) I48.91 Congenital coronary artery anomaly (Chronic) Q24.5 Bradycardia (Chronic) R00.1 CAD (coronary artery disease) (Chronic) I25.10 Diabetes mellitus, type II (Chronic) E11.9 Hyperlipidemia (Chronic) E78.5 Hypothyroidism (Chronic) E03.9 Anemia in chronic kidney disease (Chronic) N18.9, D63.1 Hypertension (Chronic) I10 End stage renal disease on dialysis (Chronic) N18.6, 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 History of hysterectomy Z90.710 Skin cancer C44.90 mouth/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, 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 Allergies lisinopril Allergy (Severe, Verified 03/14/19 11:04) Angioedema nebivolol HCl [From Bystolic] Adverse Reaction (Severe, Verified 03/14/19 11:04) bradycardia BRADYCARDIA Home Medications: Ambulatory Orders Medication Instructions Recorded Cholecalciferol (Vitamin D3) 5,000 unit PO MOWEFR 07/27/17 [Vitamin D3] pantoprazole 40 mg tablet,delayed 40 mg PO DAILY 08/21/17 release Atorvastatin Calcium [Lipitor] 80 mg PO QHS 12/26/17 Losartan Potassium [Cozaar] 50 mg PO BID 12/26/17 Carvedilol 12.5 mg PO BID 05/10/18 Insulin Lispro [Humalog] See Protocol SC TIDCM 05/10/18 Insulin Glargine [Lantus SoloStar 11 units SC QHS 05/31/18 Pen] Cyclobenzaprine HCl 5 mg PO BID 06/11/18 B Complex W-C No.20/Folic Acid 1 mg PO UD 09/20/18 [Virt-Caps Softgel] Isosorbide Mononitrate 90 mg PO BREAKFAST 09/20/18 proMETHazine tablet [Phenergan 12.5 mg PO DAILY PRN PRN 09/20/18 tablet] Docusate Sodium [Colace] 100 mg PO DAILY 02/13/19 Gabapentin [Neurontin] 100 mg PO BID 02/13/19 Gabapentin [Neurontin] 200 mg PO QHS 02/13/19 Hydralazine HCl 100 mg PO BID 02/13/19 Isosorbide Mononitrate [Imdur] 60 mg PO QHS 02/13/19 Ropinirole HCl [Requip] 0.5 mg PO QHS 02/13/19 Sevelamer Carbonate 3,200 mg PO .COMPLEX 02/13/19 Magnesium Hydroxide [Milk Of 30 ml PO DAILY PRN PRN 03/14/19 Magnesia] Melatonin 3 mg PO QHS 03/14/19 Oxycodone HCl 5 mg PO DAILY 03/14/19 Oxycodone HCl 5 mg PO Q6H PRN PRN 03/14/19 Aspirin E.C. [Ecotrin] 81 mg PO DAILY@0800 #1 03/18/19 Clopidogrel Bisulfate [Plavix] 75 mg PO DAILY #0 03/18/19 Surgical History: Surgical History (Last Reviewed 04/01/19 @ 21:33 by Chaim Jauregui DO) History of abdominal paracentesis (Chronic) Onset Date: 09/06/18 Z98.890 Stented coronary artery (Chronic) Z95.5 Cutting Balloon and TAMI (3.0X18 mm Xience) Proximal LAD 04/18/2012; Rotational atherectomy to proximal, id and distal RCA with two overlapping 4. 0 X 38 Synergy TAMI ([facility] main) History of back surgery Z98.890 LATE 70'S History of colectomy Z90.49 History of laparoscopic cholecystectomy Z90.49 History of total right knee replacement Z96.651 Hx of foot surgery Z98.890 S/P left rotator cuff repair Z98.890 history left A-V fistula Surgical History: appendectomy, cholecystectomy, hysterectomy, total knee arthro plasty, - - Left upper extremity fistula, back surgery, colon resection with history of diverticulitis, GI bleed, right knee surgery, right total knee replacement, right foot surgery, left knee surgery, left foot surgery, PCI. 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: No pertinent MONUMENT LETTERER history Lives: Alone Smoking Status: Former smoker Alcohol: None Drugs: None - *Family History Maternal Family History: Family History (Last Reviewed 04/01/19 @ 21:33 by Chaim Jauregui DO) Sister Diabetes Heart disease Hypertension Anemia History Items: Cancer - uterine Paternal Family History: Family History (Last Reviewed 04/01/19 @ 21:33 by Chaim Jauregui DO) Sister Diabetes Heart disease Hypertension Anemia History Items: Cancer Sibling Family History: Family History (Last Reviewed 04/01/19 @ 21:33 by Chaim Jauregui DO) Sister Diabetes Heart disease Hypertension Anemia History Items: Diabetes Review of Systems Constitutional: Reports: Malaise, Weakness. Denies: Anorexia, Chills, Fever Eyes: Reports: - - Blind in left eye after injury. Denies: Blurred vision HEENT: Denies: Head Aches, Sinus Congestion, Sinus Drainage Cardiovascular: Reports: Edema. Denies: Chest Pain Respiratory: Reports: Shortness of Breath, Shortness of breath upon exertion. Denies: Cough Gastrointestinal: Reports: Hematochezia, Melena. Denies: Abdominal Pain, Benito temesis, Nausea Genitourinary: Reports: - - Anuric Musculoskeletal: Denies: Arm Pain, Foot Pain Skin: Reports: - - Healed over lesions from seeping wounds from her lower extremities. Denies: Dryness, Jaundice Neurological: Denies: Blurred vision, Double vision Psychiatric: Denies: Anxiety, Depression Endocrine: Denies: Change in Body Habitus Hematologic/ Lymphatic: Denies: Easy Bruising, Easy Bleeding, Hx of blood clot Comment: All review systems are otherwise negative except for as mentioned above and in the HPI. VTE Information - Inpt Only VTE Present on Admission: No VTE Mechan Device Prophylaxis: SCD's VTE Pharm Prophylaxis ordered?: No Reason prophylaxis not ordered:: Medical Contraindication Patient Problems: Active and Suspected Problems (Last Updated 02/17/19 @ 15:35 by Chaim Jauregui DO) GI bleed (Acute) Anemia due to acute blood loss (Acute) Encounter for hemodialysis for end-stage renal disease (Acute) - Physical Exam Vitals/I&O's: Vital Signs Temp Pulse Resp BP Pulse Ox 36.5 C L 80 16 154/55 H 99 04/01/19 19:34 04/01/19 19:34 04/01/19 19:34 04/01/19 19:34 04/01/19 19:34 Oxygen Delivery Method Room Air Weight: 95.7 kg Body Mass Index (BMI) 35.1 Finger Stick Blood Glucose 99 General: Alert, Cooperative, No apparent distress HEENT: Atraumatic, Normocephalic, - - No icterus Oral: Moist Mucosa, No Gingival or Mucosal Lesions/ Ulcerations Neck: No Nodes, Trachea Midline Lungs: Clear to auscultation, Normal air movement, No rhonchi, No wheeze, No rales Cardiovascular: Regular rate, Regular Rhythm, - - 2 out of 6 systolic ejection murmur at the right upper sternal border Abdomen: Bowel Sounds Present, Soft, Non Tender, Distended - But not taut Extremities: No clubbing, Edema Skin: No rashes, - - Healing lesions on anterior shins Musculoskeletal: No Tenderness to Palpation of Joints or Extremities, Muscle Wasting Neurological: Deep Tendon Reflexes 2+/4 and Symmetrical, Sensory exam intact to light touch and pain Psych/Mental Status: Normal Affect, Appropriate Laboratory Results 04/01/19 20:00: WBC 4.5, RBC 2.17 L, Hgb 6.4 L, Hct 21.7 L, MCV 100.0 H, MCH 29.5, MCHC 29.5 L, RDW Std Deviation 64.9 H, RDW Coeff of Susan 18.2 H, Plt Count 134 L, MPV 9.8 04/01/19 20:00: PT 17.1 H, INR 1.4, APTT 36.5 H 04/01/19 20:00: Sodium 131 L, Potassium 5.0, Chloride 94 L, Carbon Dioxide 31.0, Anion Gap 6, BUN 36 H, Creatinine 3.69 H, Estim Creat Clear Calc 11.67, Est GFR (MDRD) Af Amer 15 L, Est GFR (MDRD) Non-Af 13 L, BUN/Creatinine Ratio 9.8 L, Glucose 152 H, Calcium 8.2 L 04/01/19 20:00: Lactic Acid 1.8 04/01/19 20:00: Blood Type O NEGATIVE, Antibody Screen NEGATIVE, Crossmatch See Detail Assessment/Plan All Active Problems (Last Updated 02/17/19 @ 15:35 by Chaim Jauregui DO) GI bleed (Acute) Anemia due to acute blood loss (Acute) Encounter for hemodialysis for end-stage renal disease (Acute) Chest pain (Acute) 1. GI bleed * Is worse than it was last month but patient stated that it was about similar to what she had about 3 years ago * May be related with diverticular bleeds or possibly hemorrhoids * We will plan for a bleeding scan, consult general surgery and patient may require a colonoscopy in the coming days. * Clear liquid diet for now 2. Acute blood loss anemia * Secondary to above * Type and cross 2 units from the ER and patient will be transfused * Monitor hemoglobin 3. 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 Discussed with patient. She states that she has a paracentesis planned for next week on the . I do not feel that there is any acute urgency for paracentesis at this time. 4. End-stage renal disease * On dialysis every Sunday * Dr. Crawley is on consult 5. Diabetes mellitus type 2 * Continue with her basal insulin for now, hold prandial but patient be on sliding scale insulin for now 6. 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 VTE prophylaxis: Moderate risk. SCDs. Chemical prophylaxis contraindicated in light of GI bleed. 8. Advanced care planning: Discussed with patient. Patient was to be full CODE STATUS at this time. Code Visit Inpatient E&M: 44080 Init Hosp L3
--- NOTE | 2019-04-01 22:29 | NM_ITS ---
<Blood cell study INDICATION: Abdominal pain, gastrointestinal hemorrhage. TECHNIQUE: After the ministration 25.7 mCi of technetium 90 9M tagged red blood cells intravenously, multiple scintigraphic images of the abdomen were obtained. Next FINDINGS: Normal uptake is seen within the abdominal aorta, iliac arteries, liver, spleen. No abnormal increased uptake is seen within the abdomen to suggest active gastrointestinal hemorrhage. IMPRESSION: No active gastrointestinal hemorrhage. Electronically Signed: Diogo Pearl MD at 9:36 EST Tel , Service support , NM/GI Bleed Scan
[2019-04-01] MEDS: Losartan Potassium 50 MG Tablet PO (23:49)
[2019-04-01] MEDS: Carvedilol 12.5 MG Tablet PO (23:49)
[2019-04-01] MEDS: hydrALAZINE 50 MG Tablet 100 MG PO (23:50)
[2019-04-01] MEDS: Pramipexole Di-HCl 0.25 MG Tablet PO (23:50)
[2019-04-01] MEDS: Atorvastatin Calcium 80 MG Tablet PO (23:50)
[2019-04-01] MEDS: Gabapentin 100 MG Capsule 200 MG PO (23:56)
[2019-04-01] MEDS: cycloBENZAPRine HCl 5 MG TABLET PO (23:58)
[2019-04-02] VITALS (20 sets, daily range): BP systolic 85–125; BP diastolic 22–72; PULSE 61–79; RESP 16–18; TEMP 36.4–36.8; O2SAT 95–99
[2019-04-02] MEDS: Isosorbide Mononitrate 60 MG Tablet PO ×2 (00:07→23:03)
[2019-04-02] MEDS: oxyCODONE 5 MG Tablet PO ×4 (00:14→22:54)
[2019-04-02 00:16] LABS: Bedside Glucose 132 mg/dL (70-110)
[2019-04-02 06:26] LABS: Absolute Lymphocyte Count 1.56 X10^3/uL (0.83-4.51); Absolute Neutrophil Count 1.8 X10^3/uL (2.0-7.7); Basophil# 0.04 X10^3/uL; Eosinophil# 0.23 X10^3/uL; Eosinophils% 5.6 % (0-5); Hematocrit 18.9 % (37-47); Lymphocyte # 1.56 X10^3/ul (4.0); Lymphocyte % 38.2 % (19-41); Mean Corp Hgb Conc 31.7 g/dL (32-36); Mean Corpuscular Hgb 30.5 pg (27.0-32.0); Mean Corpuscular Volume 95.9 fL (81-99); Mean Platelet Vol. 9.4 fl (6.2-12.0); Monocyte# 0.45 X10^3/uL; NRBC Flagged by Analyzer 0 % (0-5); Neutrophil # 1.79 X10^3/uL (2.7-7.7); Platelet Count 109 K/mm3 (150-450); RBC Distribution Width CV 18.6 % (11.6-14.6); RBC Distribution Width SD 63.2 fl (35.1-43.9); Red Blood Count 1.97 M/mm3 (4.2-5.4); White Blood Count 4.1 K/mm3 (4.4-11.0)
--- NOTE | 2019-04-02 06:29 | PCM.CONS.GEN ---
Reason for Consult Date of Consultation: 04/02/19 Reason for Consultation: recurrent occult GI bleeding History of Present Illness: The patient is a 74 year old F with multiple significant medical comorbidities presented with recurrent melena/rectal bleeding. The patient has a history of recurrent bleeding. I performed upper and lower endoscopy for GI bleeding May 12, 2018. The patient was found to have dense diverticulosis, but blood was present throughout the colon o the base of the cecum suggesting a proximal Gi bleed. Upper endoscopy demonstrated no signs of bleeding A bleeding scan was obtained that was negative on that same date. the patient has had recurring episodes of GI bleeding. She most recently was admitted approximately 2 weeks previously for bleeding. This seemed to be relatively smaller volume and she did not undergo repeat endoscopy given the previous findings and her medical comorbidities and risk. The patient noted again bleeding starting the day prior to admission. Her hemoglobin decreased from 7.7 on March 31 to 6.4 on April 01. I was contacted by Dr. Trevino in the ER who noted the patient had ongoing melena and dropped her hemoglobin 1.3gms overnight. I recommended a bleeding scan be obtained and follow her up at clinically. The patient was told in her previous admission that she would be at high risk for endoscopy given her medical comorbidities area did I agreed with fat but didn't feel that endoscopy was prohibited. Bleeding scan was again obtained. This demonstrated no signs of active bleeding but throughout the day the patient is still having rectal bleeding. I therefore recommend we do upper and lower endoscopy tomorrow. Past Medical History Past Medical History (Chronic Problems): Chronic Problems (Last Reviewed 04/01/19 @ 21:33 by Chaim Jauregui DO) Chronic renal failure (Chronic) History of GI bleed (Chronic) History of non-ST elevation myocardial infarction (NSTEMI) (Chronic 07/05/16) Atherosclerotic heart disease of [place] coronary artery without angina pectoris (Chronic) Stented coronary artery (Chronic) Cutting Balloon and TAMI (3.0X18 mm Xience) Proximal LAD 04/18/2012; Rotational atherectomy to proximal, id and distal RCA with two overlapping 4.0 X 38 Synergy TAMI ([facility] main) Ascites (Chronic) Pancytopenia (Chronic) Other specified peripheral vascular diseases (Chronic) Afib (Chronic) Congenital coronary artery anomaly (Chronic) Bradycardia (Chronic) CAD (coronary artery disease) (Chronic) Diabetes mellitus, type II (Chronic) Hyperlipidemia (Chronic) Hypothyroidism (Chronic) Anemia in chronic kidney disease (Chronic) Hypertension (Chronic) End stage renal disease on dialysis (Chronic) Medical History: Medical History (Last Reviewed 04/01/19 @ 21:33 by Chaim Jauregui DO) History of GI bleed (Chronic) Z87.19 History of non-ST elevation myocardial infarction (NSTEMI) (Chronic) Onset Date: 07/05/16 I25.2 Atherosclerotic heart disease of [place] coronary artery without angina pectoris (Chronic) I25.10 Ascites (Chronic) R18.8 Pancytopenia (Chronic) D61.818 Other specified peripheral vascular diseases (Chronic) I73.89 Afib (Chronic) I48.91 Congenital coronary artery anomaly (Chronic) Q24.5 Bradycardia (Chronic) R00.1 CAD (coronary artery disease) (Chronic) I25.10 Diabetes mellitus, type II (Chronic) E11.9 Hyperlipidemia (Chronic) E78.5 Hypothyroidism (Chronic) E03.9 Anemia in chronic kidney disease (Chronic) N18.9, D63.1 Hypertension (Chronic) I10 End stage renal disease on dialysis (Chronic) N18.6, 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 History of hysterectomy Z90.710 Skin cancer C44.90 mouth/lip 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, 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 Allergies lisinopril Allergy (Severe, Verified 03/14/19 11:04) Angioedema nebivolol HCl [From Bystolic] Adverse Reaction (Severe, Verified 03/14/19 11:04) bradycardia BRADYCARDIA Home Medications: Ambulatory Orders Medication Instructions Recorded Cholecalciferol (Vitamin D3) 5,000 unit PO MOWEFR 07/27/17 [Vitamin D3] pantoprazole 40 mg tablet,delayed 40 mg PO DAILY 08/21/17 release Atorvastatin Calcium [Lipitor] 80 mg PO QHS 12/26/17 Losartan Potassium [Cozaar] 50 mg PO BID 12/26/17 Carvedilol 12.5 mg PO BID 05/10/18 Insulin Lispro [Humalog] See Protocol SC TIDCM 05/10/18 Insulin Glargine [Lantus SoloStar 11 units SC QHS 05/31/18 Pen] Cyclobenzaprine HCl 5 mg PO BID 06/11/18 B Complex W-C No.20/Folic Acid 1 mg PO UD 09/20/18 [Virt-Caps Softgel] Docusate Sodium [Colace] 100 mg PO BID 02/13/19 Gabapentin [Neurontin] 100 mg PO BID 02/13/19 Gabapentin [Neurontin] 200 mg PO QHS 02/13/19 Hydralazine HCl 100 mg PO BID 02/13/19 Isosorbide Mononitrate [Imdur] 60 mg PO QHS 02/13/19 Ropinirole HCl [Requip] 0.5 mg PO QHS 02/13/19 Sevelamer Carbonate 2,400 mg PO TIDCM 02/13/19 Melatonin 3 mg PO QHS 03/14/19 Oxycodone HCl 5 mg PO BID 03/14/19 Aspirin E.C. [Ecotrin] 81 mg PO DAILY@0800 #1 03/18/19 Clopidogrel Bisulfate [Plavix] 75 mg PO DAILY #0 03/18/19 Isosorbide Mononitrate [Imdur] 90 mg PO DAILY 04/01/19 Oxycodone HCl 5 mg PO Q6H PRN PRN 04/01/19 Surgical History: Surgical History (Last Updated 04/02/19 @ 09:38 by Haleigh Palma MD) Stented coronary artery (Chronic) Z95.5 Cutting Balloon and TAMI (3.0X18 mm Xience) Proximal LAD 04/18/2012; Rotational atherectomy to proximal, id and distal RCA with two overlapping 4.0 X 38 Synergy TAMI ([facility] main) History of back surgery Z98.890 LATE 70'S History of colectomy Z90.49 History of laparoscopic cholecystectomy Z90.49 History of total right knee replacement Z96.651 Hx of foot surgery Z98.890 S/P left rotator cuff repair Z98.890 history left A-V fistula Surgical History: appendectomy, cholecystectomy, hysterectomy, total knee arthroplasty, - - Left upper extremity fistula, back surgery, colon resection with history of diverticulitis, GI bleed, right knee surgery, right total knee replacement, right foot surgery, left knee surgery, left foot surgery, PCI. Psychiatric History: No pertinent psych hx FINANCIAL AID History: No pertinent FINANCIAL AID history Lives: Alone Smoking Status: Former smoker Tobacco Use: Non-smoker Alcohol: None Drugs: None - *Family History Maternal Family History: Family History (Last Reviewed 04/01/19 @ 21:33 by Chaim Jauregui DO) Sister Diabetes Heart disease Hypertension Anemia History Items: Cancer - uterine Paternal Family History: Family History (Last Reviewed 04/01/19 @ 21:33 by Chaim Jauregui DO) Sister Diabetes Heart disease Hypertension Anemia History Items: Cancer Sibling Family History: Family History (Last Reviewed 04/01/19 @ 21:33 by Chaim Jauregui DO) Sister Diabetes Heart disease Hypertension Anemia History Items: Diabetes Review of Systems Constitutional: Reports: Malaise, Weakness HEENT: Denies: Head Aches, Sinus Congestion, Sinus Drainage Cardiovascular: Denies: Chest Pain, Palpitations Respiratory: Reports: Shortness of Breath, Shortness of breath upon exertion. Denies: Cough, Shortness of breath at rest, Sputum production Gastrointestinal: Denies: Abdominal Pain, Nausea, Vomiting Genitourinary: Denies: Dysuria Musculoskeletal: Denies: Joint Pain, Joint Tenderness Skin: Denies: Rash, Wounds Neurological: Denies: Numbness, Tingling, Focal weakness Psychiatric: Denies: Anxiety, Depression, Homicidal Ideations, Suicidal Ideations Hematologic/ Lymphatic: Denies: Easy Bruising, Easy Bleeding Patient Problems: Active and Suspected Problems (Last Reviewed 04/01/19 @ 21:33 by Chaim Jauregui DO) GI bleed (Acute) Anemia due to acute blood loss (Acute) - Physical Exam Vitals/I&O's: Vital Signs Temp Pulse Resp BP Pulse Ox 98.0 F 64 16 104/72 96 04/02/19 04:20 04/02/19 04:20 04/02/19 04:20 04/02/19 04:20 04/02/19 04:20 Oxygen Flow Rate (L/min) 3 Oxygen Delivery Method Nasal Cannula Weight: 93 kg Body Mass Index (BMI) 33.8 Finger Stick Blood Glucose 99 Intake and Output for Last 24 Hours 03/31/19 04/01/19 04/02/19 23:59 23:59 23:59 Intake Total 0 / 0 Balance 0 / 0 General: Alert, Oriented x3 HEENT: - Neck: - - bruits versus radiating murmur Lungs: Diminished Cardiovascular: Murmur Abdomen: Bowel Sounds Present, Soft, Non Tender Laboratory Results 04/01/19 20:00: WBC 4.5, RBC 2.17 L, Hgb 6.4 L, Hct 21.7 L, MCV 100.0 H, MCH 29.5, MCHC 29.5 L, RDW Std Deviation 64.9 H, RDW Coeff of Susan 18.2 H, Plt Count 134 L, MPV 9.8 04/01/19 20:00: PT 17.1 H, INR 1.4, APTT 36.5 H 04/01/19 20:00: Sodium 131 L, Potassium 5.0, Chloride 94 L, Carbon Dioxide 31.0, Anion Gap 6, BUN 36 H, Creatinine 3.69 H, Estim Creat Clear Calc 11.67, Est GFR (MDRD) Af Amer 15 L, Est GFR (MDRD) Non-Af 13 L, BUN/Creatinine Ratio 9.8 L, Glucose 152 H, Calcium 8.2 L 04/01/19 20:00: Lactic Acid 1.8 04/01/19 20:00: Blood Type O NEGATIVE, Antibody Screen NEGATIVE, Crossmatch See Detail 04/01/19 23:48: POC Glucose 132 H 04/02/19 06:12: WBC 4.1 L, RBC 1.97 L, Hgb 6.0 L, Hct 18.9 L, MCV 95.9, MCH 30.5, MCHC 31.7 L, RDW Std Deviation 63.2 H, RDW Coeff of Susan 18.6 H, Plt Count 109 L, MPV 9.4, Immature Gran % (Auto) 0.200, Neut % (Auto) 44.0 L, Lymph % (Auto) 38.2, [place] % (Auto) 11.0 H, Eos % (Auto) 5.6 H, Baso % (Auto) 1.0, Absolute Neuts (auto) 1.8 L, Absolute Lymphs (auto) 1.56, Nucleated RBC % 0 04/02/19 06:12: Sodium Pending, Potassium Pending, Chloride Pending, Carbon Dioxide Pending, Anion Gap Pending, BUN Pending, Creatinine Pending, Est GFR (MDRD) Af Amer Pending, Est GFR (MDRD) Non-Af Pending, BUN/Creatinine Ratio Pending, Glucose Pending, Calcium Pending Current Medications Aspirin (Ecotrin) 81 mg PO DAILY@0800 [facility] Atorvastatin Calcium (Lipitor) 80 mg PO QHS [facility] Last Admin: 04/01/19 23:50 Dose: 80 mg Documented by: Carvedilol (Coreg) 12.5 mg PO BID [facility] Last Admin: 04/01/19 23:49 Dose: 12.5 mg Documented by: Cholecalciferol (Vitamin D) 5,000 unit PO MoWeFr@1000 [facility] Cyclobenzaprine HCl (Cyclobenzaprine Hcl) 5 mg PO BID [facility] Last Admin: 04/01/19 23:58 Dose: 5 mg Documented by: Dextrose (D50w Syringe) 0 gm IV X1 PRN; Protocol PRN Reason: Hypoglycemia [facility]) [facility] Gabapentin (Neurontin) 200 mg PO QHS [facility] Last Admin: 04/01/19 23:56 Dose: 200 mg Documented by: Glucagon () 1 mg IM .X1 PRN PRN Reason: Hypoglycemia Hydralazine HCl (Apresoline) 100 mg PO BID [facility] Last Admin: 04/01/19 23:50 Dose: 100 mg Documented by: Sodium Chloride () 500 mls @ 15 mls/hr IV PRN PRN PRN Reason: Blood Transfusion Sodium Chloride () 250 mls @ 15 mls/hr IV .[id number] PRN PRN Reason: Saline Flush Insulin Glargine (Lantus (Bkc)) 11 units SC QHS [facility] Last Admin: 04/01/19 23:56 Dose: 11 units Documented by: Insulin Human Lispro (Humalog Kwikpen (Bkc)) 0 unit SC TIDAC [facility]; Protocol Isosorbide Mononitrate (Imdur) 60 mg PO QHS [facility] Last Admin: 04/02/19 00:07 Dose: 60 mg Documented by: Isosorbide Mononitrate (Imdur) 90 mg PO BREAKFAST [facility] Losartan Potassium (Cozaar) 50 mg PO BID [facility] Last Admin: 04/01/19 23:49 Dose: 50 mg Documented by: Magnesium Hydroxide (Milk Of Magnesia) 30 ml PO DAILY PRN PRN PRN Reason: Constipation-no bm in 3 days Melatonin (Melatonin) 3 mg PO QHS PRN PRN PRN Reason: INSOMNIA Multivit/Ca Carb/B Cmplx/FA/Prenat (Nephrocaps, Renaphro) 1 capsule PO DAILY [facility] Ondansetron HCl (Zofran) 4 mg IV Q8H PRN PRN PRN Reason: NAUSEA/VOMITING Oxycodone HCl (Oxyir) 5 mg PO Q6H PRN PRN PRN Reason: Pain Score 1-10/10 Last Admin: 04/02/19 00:14 Dose: 5 mg Documented by: Pantoprazole Sodium (Protonix) 40 mg PO DAILY [facility] Pramipexole Dihydrochloride (Mirapex) 0.25 mg PO QHS [facility] Last Admin: 04/01/19 23:50 Dose: 0.25 mg Documented by: Promethazine HCl (Phenergan Tablet) 12.5 mg PO DAILY PRN PRN PRN Reason: NAUSEA Sevelamer Carbonate (Renvela) 2,400 mg PO TIDCM [facility] Sodium Chloride () 10 - 40 ml IV UD PRN PRN Reason: SALINE FLUSH Assessment/Plan All Active Problems (Last Reviewed 04/01/19 @ 21:33 by Chaim Jauregui DO) GI bleed (Acute) Anemia due to acute blood loss (Acute) GI bleeding - occult source. I would obtain a bleeding scan to assess for possible source location as the patient seems to still be bleeding clinically. bleeding scan returned as negative however the patient is still having rectal bleeding which smells like melena. I therefore plan to perform a gentle bowel prep after she completes dialysis and then plan for upper and lower endoscopy tomorrow. The patient seems the risks, benefits, complications and possible alternatives and consents to the procedure. She realizes she is high risk. I told her I would be very gentle and we would have anesthesia providing sedation.
[2019-04-02 06:44] LABS: Anion Gap 8 (5-15); BUN 40 mg/dL (7-18); Calcium,Total 7.4 mg/dL (8.5-10.1); Chloride 95 mmol/L (98-107); Creatinine, Serum 3.99 mg/dL (0.55-1.02); EST Glomerular Filtration Rate 12 mL/min (>60); Est Glom Filt Rate - Afr Amer 14 mL/min (>60); Estimated Creatinine Clearance 10.79 ml/min; Glucose 77 mg/dL (74-106); Potassium 4.9 mmol/L (3.5-5.1); Sodium Level 132 mmol/L (136-145)
[2019-04-02 06:50] LABS: Bedside Glucose 68 mg/dL (70-110)
--- NOTE | 2019-04-02 06:54 | NURSING ---
Pt. blood glucose fingerstick 68. 4 oz. orange juice and 2 peanut butter crackers given. Pt. asymptomatic. This nurse checked with NM and pt. does not have to be NPO for GI Bleed scan this morning.
--- NOTE | 2019-04-02 08:30 | NURSING ---
kaitlin from [facility] called for update. questions answered at this time
[2019-04-02] MEDS: Gabapentin 100 MG Capsule PO ×2 (10:11→17:59)
[2019-04-02] MEDS: Carvedilol 12.5 MG Tablet PO ×2 (10:11→22:45)
[2019-04-02] MEDS: Pantoprazole Sodium 40 MG Tablet PO (10:12)
[2019-04-02] MEDS: cycloBENZAPRine HCl 5 MG TABLET PO ×2 (10:12→22:45)
[2019-04-02] MEDS: Folic Acid/Vitamin B Comp W-C 1 Capsule 1 CAP PO (10:14)
[2019-04-02] MEDS: SEVELAMER CARBONATE 800 MG TABLET 2400 MG PO ×2 (10:14→18:01)
--- NOTE | 2019-04-02 10:27 | PCM.PROGNOTE ---
Patient Problems: Active and Suspected Problems (Last Reviewed 04/01/19 @ 21:33 by Chaim Jauregui DO) GI bleed (Acute) Anemia due to acute blood loss (Acute) Subjective: Chief complaint: Follow-up after admission for lower GI bleed and acute on chronic symptomatic blood loss anemia. Patient seen and examined. No acute events overnight. She complained of low back pain which has been chronic. She complained of mild abdominal discomfort, no real pain. Denied nausea vomiting. She mentioned that she had 2 bloody bowel movements morning which was pure bright red blood. Denies chest pain or shortness of breath. She is afebrile, blood pressure and heart rate are maintained, pulse ox is 91% on 2 L. - Physical Exam Vitals/I&O's: Vital Signs Temp Pulse Resp BP Pulse Ox 97.7 F L 71 18 120/56 L 99 04/02/19 10:02 04/02/19 10:07 04/02/19 10:02 04/02/19 10:07 04/02/19 10:02 Oxygen Flow Rate (L/min) 2 Oxygen Delivery Method Nasal Cannula Weight: 205 lb 0.478 oz Body Mass Index (BMI) 33.8 Finger Stick Blood Glucose 99 Intake and Output for Last 24 Hours 03/31/19 04/01/19 04/02/19 23:59 23:59 23:59 Intake Total 0 / 0 Balance 0 / 0 General: Alert, Oriented x3, Cooperative, - - Minimally short of breath. HEENT: Atraumatic, PERRLA, EOMI, Normocephalic Oral: Moist Mucosa, No Gingival or Mucosal Lesions/ Ulcerations Neck: Supple, No JVD, Negative Carotid Bruits, Trachea Midline, Thyroid Normal Size and Texture Lungs: Clear to auscultation, No rhonchi, No wheeze, No rales, Diminished Cardiovascular: Regular rate, Regular Rhythm, Normal S1, Normal S2, PMI Normal, Murmur - Systolic murmur. Abdomen: Bowel Sounds Present, Soft, Non Tender, No Hepato-splenomegaly, Distended, Obese Extremities: No clubbing, No cyanosis, Edema - Trace edema. Skin: No rashes, No breakdown Lymphatic: No Cervical, Supraclavicular, or Inguinal Adenopathy Neurological: Cranial nerves II-XII grossly intact, Motor Exam 5/5 strength throughout Psych/Mental Status: Normal Affect, Appropriate, Alert and oriented to time, place, person, mood and affect Laboratory Results 04/01/19 20:00: WBC 4.5, RBC 2.17 L, Hgb 6.4 L, Hct 21.7 L, MCV 100.0 H, MCH 29.5, MCHC 29.5 L, RDW Std Deviation 64.9 H, RDW Coeff of Susan 18.2 H, Plt Count 134 L, MPV 9.8 04/01/19 20:00: PT 17.1 H, INR 1.4, APTT 36.5 H 04/01/19 20:00: Sodium 131 L, Potassium 5.0, Chloride 94 L, Carbon Dioxide 31.0, Anion Gap 6, BUN 36 H, Creatinine 3.69 H, Estim Creat Clear Calc 11.67, Est GFR (MDRD) Af Amer 15 L, Est GFR (MDRD) Non-Af 13 L, BUN/Creatinine Ratio 9.8 L, Glucose 152 H, Calcium 8.2 L 04/01/19 20:00: Lactic Acid 1.8 04/01/19 20:00: Blood Type O NEGATIVE, Antibody Screen NEGATIVE, Crossmatch See Detail 04/01/19 23:48: POC Glucose 132 H 04/02/19 06:12: WBC 4.1 L, RBC 1.97 L, Hgb 6.0 L, Hct 18.9 L, MCV 95.9, MCH 30.5, MCHC 31.7 L, RDW Std Deviation 63.2 H, RDW Coeff of Susan 18.6 H, Plt Count 109 L, MPV 9.4, Immature Gran % (Auto) 0.200, Neut % (Auto) 44.0 L, Lymph % (Auto) 38.2, [place] % (Auto) 11.0 H, Eos % (Auto) 5.6 H, Baso % (Auto) 1.0, Absolute Neuts (auto) 1.8 L, Absolute Lymphs (auto) 1.56, Nucleated RBC % 0 04/02/19 06:12: Sodium 132 L, Potassium 4.9, Chloride 95 L, Carbon Dioxide 29.0, Anion Gap 8, BUN 40 H, Creatinine 3.99 H, Estim Creat Clear Calc 10.79, Est GFR (MDRD) Af Amer 14 L, Est GFR (MDRD) Non-Af 12 L, BUN/Creatinine Ratio 10.0, Glucose 77, Calcium 7.4 L 04/02/19 06:35: POC Glucose 68 L Clinical Impression(s) from Imaging Studies GI Bleed Scan Nuclear Medicine 04/01/19 22:29 Current Medications Aspirin (Ecotrin) 81 mg PO DAILY@0800 [facility] Last Admin: 04/02/19 09:34 Dose: Not Given Documented by: Atorvastatin Calcium (Lipitor) 80 mg PO QHS [facility] Last Admin: 04/01/19 23:50 Dose: 80 mg Documented by: Carvedilol (Coreg) 12.5 mg PO BID [facility] Last Admin: 04/02/19 10:11 Dose: 12.5 mg Documented by: Cholecalciferol (Vitamin D) 5,000 unit PO MoWeFr@1000 [facility] Last Admin: 04/02/19 10:12 Dose: 5,000 unit Documented by: Cyclobenzaprine HCl (Cyclobenzaprine Hcl) 5 mg PO BID [facility] Last Admin: 04/02/19 10:12 Dose: 5 mg Documented by: Dextrose (D50w Syringe) 0 gm IV X1 PRN; Protocol PRN Reason: Hypoglycemia [facility] Last Admin: 04/02/19 10:11 Dose: 100 mg Documented by: Gabapentin (Neurontin) 200 mg PO QHS [facility] Last Admin: 04/01/19 23:56 Dose: 200 mg Documented by: Glucagon () 1 mg IM .X1 PRN PRN Reason: Hypoglycemia Hydralazine HCl (Apresoline) 100 mg PO BID [facility] Last Admin: 04/02/19 10:07 Dose: Not Given Documented by: Sodium Chloride () 500 mls @ 15 mls/hr IV PRN PRN PRN Reason: Blood Transfusion Sodium Chloride () 250 mls @ 15 mls/hr IV .[id number] PRN PRN Reason: Saline Flush Insulin Glargine ([facility]antus (Bkc)) [facility] Last Admin: 04/01/19 23:56 Dose: 11 units Documented by: Insulin Human Lispro (Humalog Kwikpen (Bkc)) 0 unit SC TIDAC [facility]; Protocol Last Admin: 04/02/19 06:38 Dose: Not Given Documented by: Isosorbide Mononitrate (Imdur) 60 mg PO QHS [facility] Last Admin: 04/02/19 00:07 Dose: 60 mg Documented by: Isosorbide Mononitrate (Imdur) 90 mg PO BREAKFAST [facility] Last Admin: 04/02/19 10:08 Dose: Not Given Documented by: Losartan Potassium (Cozaar) 50 mg PO BID [facility] Last Admin: 04/02/19 10:07 Dose: Not Given Documented by: Magnesium Hydroxide (Milk Of Magnesia) 30 ml PO DAILY PRN PRN PRN Reason: Constipation-no bm in 3 days Melatonin (Melatonin) 3 mg PO QHS PRN PRN PRN Reason: INSOMNIA Multivit/Ca Carb/B Cmplx/FA/Prenat (Nephrocaps, Renaphro) 1 capsule PO DAILY [facility] Last Admin: 04/02/19 10:14 Dose: 1 capsule Documented by: Ondansetron HCl (Zofran) 4 mg IV Q8H PRN PRN PRN Reason: NAUSEA/VOMITING Oxycodone HCl (Oxyir) 5 mg PO Q4H PRN PRN PRN Reason: Pain Score 1-10/10 Last Admin: 04/02/19 10:11 Dose: 5 mg Documented by: Pantoprazole Sodium (Protonix) 40 mg PO DAILY [facility] Last Admin: 04/02/19 10:12 Dose: 40 mg Documented by: Pramipexole Dihydrochloride (Mirapex) 0.25 mg PO QHS [facility] Last Admin: 04/01/19 23:50 Dose: 0.25 mg Documented by: Promethazine HCl (Phenergan Tablet) 12.5 mg PO DAILY PRN PRN PRN Reason: NAUSEA Sevelamer Carbonate (Renvela) 2,400 mg PO TIDCM [facility] Last Admin: 04/02/19 10:14 Dose: 2,400 mg Documented by: Sodium Chloride () 10 - 40 ml IV UD PRN PRN Reason: SALINE FLUSH Medical Necessity - Tobacco Use Smoking Status: Former smoker Tobacco Use: Non-smoker Assessment/Plan All Active Problems (Last Reviewed 04/01/19 @ 21:33 by Chaim Jauregui DO) GI bleed (Acute) Anemia due to acute blood loss (Acute) This is a 74 years old female patient presented to the emergency room because of bleeding per rectum, found to have GI bleed which is probably lower GI bleed complicated by acute on chronic symptomatic blood loss anemia. #1 GI bleed: In context of history of recurrent GI bleed in the past. She had upper endoscopy and colonoscopy on April,. On colonoscopy, patient was found to have diverticulosis without evidence of active bleeding. Upper endoscopy revealed no signs of active bleeding. Admission hemoglobin was 6.4 g/dL, came down to 6 g/dL today. Patient still actively bleeding. She is not tachycardic, blood pressure stable. Nuclear bleeding scan done this morning and revealed no evidence of active GI bleed. General surgery consulted. Plan: Continue blood transfusion as needed, continue PPI, awaiting general surgery recommendations. #2 acute on chronic blood loss anemia: This morning, albumin was 6 g/dL. She received 1 unit of packed RBCs. Plan to give her 2 more units of packed RBCs, repeat H&H after completing blood transfusion, CBC tomorrow morning. #3 ESRD on hemodialysis: On hemodialysis on Mondays, Wednesdays and Fridays. Nephrology consulted. #4 type 2 diabetes mellitus: Blood sugar stable, continue Lantus nightly, insulin sliding scale. #5 CAD status post stents: Stable, continue statins, Coreg, isosorbide mononitrate and losartan. Hold aspirin for now. #6 hypertension: Blood pressure stable, continue Coreg, hydralazine, nitrate and losartan. #7 chronic back pain: Continue OxyIR PRN. #8 DVT prophylaxis: SCDs. This note was generated with [employer] dictation software. It may contain incorrect words, spelling, and punctuation that were not noted in checking the note before signing. Code Visit Inpatient E&M: 21831 [facility] Hosp L3
--- NOTE | 2019-04-02 10:28 | CASEMGMT ---
Patient is from [facility]. SW faxed clinicals to [facility] as last time patient needed pre-cert to return to [facility]. Marylou RAMIREZ [employer]
[2019-04-02 12:36] LABS: Bedside Glucose 65 mg/dL (70-110)
--- NOTE | 2019-04-02 13:35 | NURSING ---
read and reviewed SN documentation
--- NOTE | 2019-04-02 15:25 | PCM.CONS.R ---
Consultation - Renal 04/02/19 PCP/ Referring MD: Requesting physician: [] Primary care physician: Walter Chao MD Reason for Consultation:: ESRD HD MWF - History of Present Illness History of Present Illness: The patient is a 74 year old F with ESRD due to diabetes, hypertension, on HD MWF admitted for BRBPR. Hgb 7.7g 2 days ago now at 6g. She has a history of high interdialytic fluid gains, liver cirrhosis with ascites requiring frequent paracentesis. She was recently hospitalized for GI bleed that stabilized and colonoscopy was on hold. She has fatigue. Denies nausea, vomiting. Appetite poor, abdominal distension persists. She underwent bleeding scan and GS consulted. Currently receiving her dialysis without incident. She received prbc. She has been on plavix in the past. Heparin has been on hold with her dialysis treatments. - Allergies Allergies: Allergies lisinopril Allergy (Severe, Verified 03/14/19 11:04) Angioedema nebivolol HCl [From Bystolic] Adverse Reaction (Severe, Verified 03/14/19 11:04) bradycardia BRADYCARDIA - Current Medications Current Medications: Current Medications Atorvastatin Calcium (Lipitor) 80 mg PO QHS FOR[facility], [facility] Last Admin: 04/01/19 23:50 Dose: 80 mg Documented by: Carvedilol (Coreg) 12.5 mg PO BID [facility], [facility] Last Admin: 04/02/19 10:11 Dose: 12.5 mg Documented by: Cholecalciferol (Vitamin D) 5,000 unit PO MoWeFr@1000 [facility], [facility] Last Admin: 04/02/19 10:12 Dose: 5,000 unit Documented by: Cyclobenzaprine HCl (Cyclobenzaprine Hcl) 5 mg PO BID [facility], [facility] Last Admin: 04/02/19 10:12 Dose: 5 mg Documented by: Dextrose (D50w Syringe) 0 gm IV X1 PRN; Protocol PRN Reason: Hypoglycemia [facility]) [facility] Last Admin: 04/02/19 10:11 Dose: 100 mg Documented by: Gabapentin (Neurontin) 200 mg PO QHS [facility], [facility] Last Admin: 04/01/19 23:56 Dose: 200 mg Documented by: Glucagon () 1 mg IM .X1 PRN PRN Reason: Hypoglycemia Hydralazine HCl (Apresoline) 100 mg PO BID [facility], [facility] Last Admin: 04/02/19 10:07 Dose: Not Given Documented by: Sodium Chloride () 500 mls @ 15 mls/hr IV PRN PRN PRN Reason: Blood Transfusion Sodium Chloride () 250 mls @ 15 mls/hr IV .[id number] PRN PRN Reason: Saline Flush Insulin Glargine (Lantus (Bk)) 11 units SC QHS [facility], [facility] Last Admin: 04/01/19 23:56 Dose: 11 units Documented by: Insulin Human Lispro (Humalog Kwikpen ([facility])) 0 unit SC TIDAC FOR[facility], [facility]; Protocol Last Admin: 04/02/19 12:21 Dose: Not Given Documented by: Isosorbide Mononitrate (Imdur) 60 mg PO QHS [facility], [facility] Last Admin: 04/02/19 00:07 Dose: 60 mg Documented by: Isosorbide Mononitrate (Imdur) 90 mg PO BREAKFAST FOR[facility], [facility] Last Admin: 04/02/19 10:08 Dose: Not Given Documented by: Losartan Potassium (Cozaar) 50 mg PO BID [facility], [facility] Last Admin: 04/02/19 10:07 Dose: Not Given Documented by: Magnesium Hydroxide (Milk Of Magnesia) 30 ml PO DAILY PRN PRN PRN Reason: Constipation-no bm in 3 days Melatonin (Melatonin) 3 mg PO QHS PRN PRN PRN Reason: INSOMNIA Multivit/Ca Carb/B Cmplx/FA/Prenat (Nephrocaps, Renaphro) 1 capsule PO DAILY [facility] Last Admin: 04/02/19 10:14 Dose: 1 capsule Documented by: Ondansetron HCl (Zofran) 4 mg IV Q8H PRN PRN PRN Reason: NAUSEA/VOMITING Oxycodone HCl (Oxyir) 5 mg PO Q4H PRN PRN PRN Reason: Pain Score 1-10/10 Last Admin: 04/02/19 10:11 Dose: 5 mg Documented by: Pantoprazole Sodium (Protonix) 40 mg PO DAILY [facility] Last Admin: 04/02/19 10:12 Dose: 40 mg Documented by: Pramipexole Dihydrochloride (Mirapex) 0.25 mg PO QHS [facility] Last Admin: 04/01/19 23:50 Dose: 0.25 mg Documented by: Promethazine HCl (Phenergan Tablet) 12.5 mg PO DAILY PRN PRN PRN Reason: NAUSEA Sevelamer Carbonate (Renvela) 2,400 mg PO TIDCM FARZANA Last Admin: 04/02/19 12:14 Dose: Not Given Documented by: Sodium Chloride () 10 - 40 ml IV UD PRN PRN Reason: SALINE FLUSH - Past Medical History Past Medical History (Chronic Problems): Chronic Problems (Last Reviewed 04/01/19 @ 21:33 by Chaim Jauregui DO) Chronic renal failure (Chronic) History of GI bleed (Chronic) History of non-ST elevation myocardial infarction (NSTEMI) (Chronic 07/05/16) Atherosclerotic heart disease of [place] coronary artery without angina pectoris (Chronic) Stented coronary artery (Chronic) Cutting Balloon and TAMI (3.0X18 mm Xience) Proximal LAD 04/18/2012; Rotational atherectomy to proximal, id and distal RCA with two overlapping 4.0 X 38 Synergy TAMI ([facility] main) Ascites (Chronic) Pancytopenia (Chronic) Other specified peripheral vascular diseases (Chronic) Afib (Chronic) Congenital coronary artery anomaly (Chronic) Bradycardia (Chronic) CAD (coronary artery disease) (Chronic) Diabetes mellitus, type II (Chronic) Hyperlipidemia (Chronic) Hypothyroidism (Chronic) Anemia in chronic kidney disease (Chronic) Hypertension (Chronic) End stage renal disease on dialysis (Chronic) - Past Surgical History Surgical History: appendectomy, cholecystectomy, hysterectomy, total knee arthroplasty, - - Left upper extremity fistula, back surgery, colon resection with history of diverticulitis, GI bleed, right knee surgery, right total knee replacement, right foot surgery, left knee surgery, left foot surgery, PCI. - Social History Smoking Status: Former smoker Alcohol: None Drugs: None - Family History Maternal Family History: Family History (Last Reviewed 04/01/19 @ 21:33 by Chaim Jauregui DO) Sister Diabetes Heart disease Hypertension Anemia History Items: Cancer - uterine Paternal Family History: Family History (Last Reviewed 04/01/19 @ 21:33 by Chaim Jauregui DO) Sister Diabetes Heart disease Hypertension Anemia History Items: Cancer Sibling Family History: Family History (Last Reviewed 04/01/19 @ 21:33 by Chaim Jauregui DO) Sister Diabetes Heart disease Hypertension Anemia History Items: Diabetes Review of Systems Constitutional: Reports: Anorexia. Denies: Chills, Fever Cardiovascular: Reports: Edema - high fluid gains, chronic edema and ascites. Denies: Chest Pain Gastrointestinal: Reports: Constipation, Hematochezia, Melena, - - distension, ascites. Denies: Abdominal Pain, Diarrhea, Hematemesis, Nausea, Vomiting Genitourinary: Denies: Dysuria Musculoskeletal: Reports: Back Pain Neurological: Denies: Tremor, Seizures Psychiatric: Reports: Depression Hematologic/ Lymphatic: Reports: Anemia Patient Problems: Active and Suspected Problems (Last Reviewed 04/01/19 @ 21:33 by Chaim Jauregui DO) GI bleed (Acute) Anemia due to acute blood loss (Acute) - Physical Exam Vitals/I&O's: Vital Signs Temp Pulse Resp BP Pulse Ox 97.9 F 70 16 92/40 L 97 04/02/19 14:30 04/02/19 14:30 04/02/19 14:30 04/02/19 14:30 04/02/19 14:30 Oxygen Flow Rate (L/min) 2 Oxygen Delivery Method Room Air Weight: 93 kg Body Mass Index (BMI) 33.8 Finger Stick Blood Glucose 99 Intake and Output for Last 24 Hours 03/31/19 04/01/19 04/02/19 23:59 23:59 23:59 Intake Total 0 / 0 520 / 520 Balance 0 / 0 520 / 520 General: Alert, Oriented x3, Cooperative, No apparent distress HEENT: PERRLA, EOMI Lungs: Clear to auscultation Cardiovascular: Regular rate, Murmur Abdomen: Bowel Sounds Present, Soft, Non Tender, Distended, Obese Extremities: Edema Skin: No rashes Neurological: Cranial nerves II-XII grossly intact Psych/Mental Status: Normal Affect, Appropriate, Alert and oriented to time, place, person, mood and affect Laboratory Results 04/01/19 20:00: WBC 4.5, RBC 2.17 L, Hgb 6.4 L, Hct 21.7 L, MCV 100.0 H, MCH 29.5, MCHC 29.5 L, RDW Std Deviation 64.9 H, RDW Coeff of Susan 18.2 H, Plt Count 134 L, MPV 9.8 04/01/19 20:00: PT 17.1 H, INR 1.4, APTT 36.5 H 04/01/19 20:00: Sodium 131 L, Potassium 5.0, Chloride 94 L, Carbon Dioxide 31.0, Anion Gap 6, BUN 36 H, Creatinine 3.69 H, Estim Creat Clear Calc 11.67, Est GFR (MDRD) Af Amer 15 L, Est GFR (MDRD) Non-Af 13 L, BUN/Creatinine Ratio 9.8 L, Glucose 152 H, Calcium 8.2 L 04/01/19 20:00: Lactic Acid 1.8 04/01/19 20:00: Blood Type O NEGATIVE, Antibody Screen NEGATIVE, Crossmatch See Detail 04/01/19 20:00: Crossmatch See Detail 04/01/19 23:48: POC Glucose 132 H 04/02/19 06:12: WBC 4.1 L, RBC 1.97 L, Hgb 6.0 L, Hct 18.9 L, MCV 95.9, MCH 30.5, MCHC 31.7 L, RDW Std Deviation 63.2 H, RDW Coeff of Susan 18.6 H, Plt Count 109 L, MPV 9.4, Immature Gran % (Auto) 0.200, Neut % (Auto) 44.0 L, Lymph % (Auto) 38.2, [place] % (Auto) 11.0 H, Eos % (Auto) 5.6 H, Baso % (Auto) 1.0, Absolute Neuts (auto) 1.8 L, Absolute Lymphs (auto) 1.56, Nucleated RBC % 0 04/02/19 06:12: Sodium 132 L, Potassium 4.9, Chloride 95 L, Carbon Dioxide 29.0, Anion Gap 8, BUN 40 H, Creatinine 3.99 H, Estim Creat Clear Calc 10.79, Est GFR (MDRD) Af Amer 14 L, Est GFR (MDRD) Non-Af 12 L, BUN/Creatinine Ratio 10.0, Glucose 77, Calcium 7.4 L 04/02/19 06:35: POC Glucose 68 L 04/02/19 12:16: POC Glucose 65 L Clinical Impression(s) from Imaging Studies GI Bleed Scan Nuclear Medicine 04/01/19 22:29 Current Medications Atorvastatin Calcium (Lipitor) 80 mg PO QHS [facility], [facility]1983 Last Admin: 04/01/19 23:50 Dose: 80 mg Documented by: Carvedilol (Coreg) 12.5 mg PO BID [facility], [facility]1983 Last Admin: 04/02/19 10:11 Dose: 12.5 mg Documented by: Cholecalciferol (Vitamin D) 5,000 unit PO MoWeFr@1000 [facility], [facility]1983 Last Admin: 04/02/19 10:12 Dose: 5,000 unit Documented by: Cyclobenzaprine HCl (Cyclobenzaprine Hcl) 5 mg PO BID [facility], [facility]1983 Last Admin: 04/02/19 10:12 Dose: 5 mg Documented by: Dextrose (D50w Syringe) 0 gm IV X1 PRN; Protocol PRN Reason: Hypoglycemia [facility]in) [facility] Last Admin: 04/02/19 10:11 Dose: 100 mg Documented by: Gabapentin (Neurontin) 200 mg PO QHS [facility], [facility]1983 Last Admin: 04/01/19 23:56 Dose: 200 mg Documented by: Glucagon () 1 mg IM .X1 PRN PRN Reason: Hypoglycemia Hydralazine HCl (Apresoline) 100 mg PO BID [facility], [facility]1983 Last Admin: 04/02/19 10:07 Dose: Not Given Documented by: Sodium Chloride () 500 mls @ 15 mls/hr IV PRN PRN PRN Reason: Blood Transfusion Sodium Chloride () 250 mls @ 15 mls/hr IV .[id number] PRN PRN Reason: Saline Flush Insulin Glargine (Lantus (Bkc)) 11 units SC QHS [facility], [facility]1983 Last Admin: 04/01/19 23:56 Dose: 11 units Documented by: Insulin Human Lispro (Humalog Kwikpen (Bk)) 0 unit SC TIDAC [facility], [facility]; Protocol Last Admin: 04/02/19 12:21 Dose: Not Given Documented by: Isosorbide Mononitrate (Imdur) 60 mg PO QHS [facility], [facility]1983 Last Admin: 04/02/19 00:07 Dose: 60 mg Documented by: Isosorbide Mononitrate (Imdur) 90 mg PO BREAKFAST [facility], [facility]1983 Last Admin: 04/02/19 10:08 Dose: Not Given Documented by: Losartan Potassium (Cozaar) 50 mg PO BID [facility], [facility]1983 Last Admin: 04/02/19 10:07 Dose: Not Given Documented by: Magnesium Hydroxide (Milk Of Magnesia) 30 ml PO DAILY PRN PRN PRN Reason: Constipation-no bm in 3 days Melatonin (Melatonin) 3 mg PO QHS PRN PRN PRN Reason: INSOMNIA Multivit/Ca Carb/B Cmplx/FA/Prenat (Nephrocaps, Renaphro) 1 capsule PO DAILY [facility]1983 Last Admin: 04/02/19 10:14 Dose: 1 capsule Documented by: Ondansetron HCl (Zofran) 4 mg IV Q8H PRN PRN PRN Reason: NAUSEA/VOMITING Oxycodone HCl (Oxyir) 5 mg PO Q4H PRN PRN PRN Reason: Pain Score 1-10/10 Last Admin: 04/02/19 10:11 Dose: 5 mg Documented by: Pantoprazole Sodium (Protonix) 40 mg PO DAILY [facility]1983 Last Admin: 04/02/19 10:12 Dose: 40 mg Documented by: Pramipexole Dihydrochloride (Mirapex) 0.25 mg PO QHS [facility]1983 Last Admin: 04/01/19 23:50 Dose: 0.25 mg Documented by: Promethazine HCl (Phenergan Tablet) 12.5 mg PO DAILY PRN PRN PRN Reason: NAUSEA Sevelamer Carbonate (Renvela) 2,400 mg PO TIDCM [facility] Last Admin: 04/02/19 12:14 Dose: Not Given Documented by: Sodium Chloride () 10 - 40 ml IV UD PRN PRN Reason: SALINE FLUSH Assessment/Plan All Active Problems (Last Reviewed 04/01/19 @ 21:33 by Chaim Jauregui DO) GI bleed (Acute) Anemia due to acute blood loss (Acute) 1. ESRD HD MWF 2. Acute GI bleed, prbc for hgb 6 3. DM2 primary care mgmt 4. HTN stable 5. liver cirrhosis with ascites paracentesis as needed.
[2019-04-02 17:05] LABS: Bedside Glucose 85 mg/dL (70-110)
--- NOTE | 2019-04-02 17:55 | DIALYSIS ---
Pt tolerated 4 hours hemodialysis with 4200ml removed during treatment. 1 unit PRBC given during treatment. Left arm AV fistula positive for thrill and bruit. Hemostasis obtained in fistula after needles removed.
[2019-04-02] MEDS: Electrolyte Solution/Peg's 4000 ML 2000 ML PO (17:59)
[2019-04-02] MEDS: Gabapentin 100 MG Capsule 200 MG PO (22:43)
[2019-04-02] MEDS: Pramipexole Di-HCl 0.25 MG Tablet PO (22:44)
[2019-04-02] MEDS: Losartan Potassium 50 MG Tablet PO (22:46)
[2019-04-02] MEDS: Atorvastatin Calcium 80 MG Tablet PO (22:47)
[2019-04-02] MEDS: hydrALAZINE 50 MG Tablet 100 MG PO (22:47)
[2019-04-02 23:15] LABS: Bedside Glucose 138 mg/dL (70-110)
[2019-04-03] VITALS (28 sets, daily range): BP systolic 94–145; BP diastolic 33–74; PULSE 55–73; RESP 16–20; TEMP 36.3–37.2; O2SAT 93–100; BMI 33.5
[2019-04-03 04:16] LABS: Hematocrit 21.7 % (37-47); Hemoglobin 6.2 g/dL (12.0-15.0); Mean Corp Hgb Conc 28.6 g/dL (32-36); Mean Corpuscular Hgb 29.5 pg (27.0-32.0); Mean Corpuscular Volume 103.3 fL (81-99); Mean Platelet Vol. 11.5 fl (6.2-12.0); POSITIVE MORPHOLOGY YES; Platelet Count 125 K/mm3 (150-450); RBC Distribution Width CV 18.4 % (11.6-14.6); RBC Distribution Width SD 67.7 fl (35.1-43.9); White Blood Count 4.3 K/mm3 (4.4-11.0)
[2019-04-03 04:17] LABS: Scan Indicated on CBC? Y/N YES- FLAGS NOTED
[2019-04-03 04:32] LABS: Anion Gap 14 (5-15); BUN 42 mg/dL (7-18); BUN/Creat Ratio 10.4 RATIO (10-20); Calcium,Total 7.4 mg/dL (8.5-10.1); Chloride 97 mmol/L (98-107); Creatinine, Serum 4.05 mg/dL (0.55-1.02); EST Glomerular Filtration Rate 11 mL/min (>60); Est Glom Filt Rate - Afr Amer 14 mL/min (>60); Estimated Creatinine Clearance 10.63 ml/min; Glucose 76 mg/dL (74-106); Potassium 5.1 mmol/L (3.5-5.1); Sodium Level 135 mmol/L (136-145)
[2019-04-03 04:35] LABS: Differential Comment SCANNED
--- NOTE | 2019-04-03 05:32 | NURSING ---
Pt. upper dentures left in room 112 PCU. Pt. 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
[2019-04-03 05:45] LABS: Bedside Glucose 94 mg/dL (70-110)
--- NOTE | 2019-04-03 05:50 | NURSING ---
Report called to Serina in AC regarding this pt. Pt. on way down to AC.
--- NOTE | 2019-04-03 06:30 | IMM_PTH ---
PATIENT: ULISES CAR LOC: [facility] U#:[id number] AGE/SX: 74/F ROOM: [facility] RE04/01/[address]: Dr. Haleigh Palma MD : 1945 BED: 1 DIS: 04/04/2019 SPEC #: [id number] RECD: 04/03/19 09:55 STATUS: QUINTON REQ #: [id number] RODERICK: 04/03/19 06:[address]: Diogo Tee DEPT: IMMUNOHISTOCHEMISTRY RECD BY: Ludy Peña ENTERED: 04/03/19 09:56 SP TYPE: IMMUNO OTHR DR: DO Dr. Chaim Toledo DO Dr. Ghasem E Ashelfah, MD Dr. Paul Nielsen, MD Tissues: Stomach, NOS Procedures: H Pylori (initial) PHYSICIAN & INSTITUTION [place] [id number] SPECIMEN INFORMATION: Tissue Source: Antrum biopsy Clinical Info: GI bleed Specimen Number: [id number] CPT code: 00135 METHODOLOGY: Deparaffinized sections of prefer/formalin-fixed tissue or PAP/DQ stained slides are incubated with monoclonal/polyclonal antibodies/oligonucleotide probes. Localization is made via biotin free immunoperoxidase method. Appropriate controls are performed and reacted as expected. Results on target cell population are indicated in the following table: RESULTS: ANTIBODY / CLONE RESULT H Pylori (polyclonal) negative These tests were developed and their performance characteristics determined by [facility]. They may not have been cleared or approved by the U.S. Food and Drug Administration. The FDA has determined that such clearance or approval is not necessary. INTERPRETATION: Antrum biopsy: Negative for Helicobacter pylori organisms. AM:christina 04/04/19
--- NOTE | 2019-04-03 06:30 | EGD_PTH ---
PATIENT: ULISES CAR LOC: [facility] U#:[id number] AGE/SX: 74/F ROOM: [facility] RE04/01/[address]: Dr. Haleigh Palma MD : 1945 BED: 1 DIS: 04/04/2019 SPEC #: [id number] RECD: 04/03/19 09:29 STATUS: QUINTON EVANS #: [id number] RODERICK: 04/03/19 06:[address]: Diogo Tee DEPT: SURGICAL PATHOLOGY RECD BY: Cherise Solis ENTERED: 04/03/19 10:07 SP TYPE: EGD BIOPSY OTHR DR: DO Dr. Chaim Toledo DO Dr. Ghasem E Ashelfah, MD Dr. Paul Nielsen, MD Tissues: Gastric mucous membrane Procedures: Surgery Specimen Level IV HEADER OPERATION: Colonoscopy, EGD ([facility]) PRE-OP DIAGNOSIS: GI bleed TISSUE SUBMITTED: Antrum biopsy for H. pylori and path MICROSCOPIC DIAGNOSIS Gastric antrum, biopsy: Mild chronic gastritis. See comment. AM:christina 04/04/19 COMMENT The results of immunohistochemistry for Helicobacter pylori will be reported separately ([id number]). MICROSCOPIC DESCRIPTION Slides are reviewed. GROSS DESCRIPTION Received in fixative is one container labeled with the patient's name and designated antrum biopsy. The specimen consists of one irregular fragment of light huerta soft tissue that measures 0.4 x 0.3 x 0.1 cm. The specimen is totally submitted in one cassette. / SJ:christina 04/03/19 TC:3 CPT: 41410
--- NOTE | 2019-04-03 07:07 | OP.EGD_ITS ---
Patient Name: Lu Moreira Procedure Date: 04/03/2019 6:14 AM Date of : 1945 Age: 74 Procedure: Upper GI endoscopy Indications: Gastrointestinal bleeding of unknown origin Providers: Diogo Tee MD Referring MD: Chaim Jauregui DO Medicines: Monitored Anesthesia Care Patient Profile: This is a 74 year old female. Refer to note in patient chart for documentation of history and physical. Complications: No immediate complications. Procedure: Pre-Anesthesia Assessment: - Prior to the procedure, a History and Physical was performed, and patient medications and allergies were reviewed. The patient is competent. The risks and benefits of the procedure and the sedation options and risks were discussed with the patient. All questions were answered and informed consent was obtained. Patient identification and proposed procedure were verified by the physician, the nurse and the anesthesiologist in the procedure room. Mental Status Examination: alert and oriented. Airway Examination: normal oropharyngeal airway and neck mobility. Respiratory Examination: clear to auscultation. CV Examination: normal. Prophylactic Antibiotics: The patient does not require prophylactic antibiotics. Prior Anticoagulants: The patient has taken no previous anticoagulant or antiplatelet agents. ASA Grade Assessment: E - Emergency. After reviewing the risks and benefits, the patient was deemed in satisfactory condition to undergo the procedure. The anesthesia plan was to use monitored anesthesia care (MAC). Immediately prior to administration of medications, the patient was re-assessed for adequacy to receive sedatives. The heart rate, respiratory rate, oxygen saturations, blood pressure, adequacy of pulmonary ventilation, and response to care were monitored throughout the procedure. The physical status of the patient was re-assessed after the procedure. After obtaining informed consent, the endoscope was passed under direct vision. Throughout the procedure, the patient's blood pressure, pulse, and oxygen saturations were monitored continuously. The gastroscope was introduced through the mouth, and advanced to the jejunum. The upper GI endoscopy was accomplished without difficulty. The patient tolerated the procedure well. Scope In: 6:45:19 AM Scope Out: 6:51:34 AM Total Procedure Duration Time 0 hours 6 minutes 15 seconds Findings: The examined jejunum was normal. The examined duodenum was normal. Diffuse moderate inflammation characterized by erosions and erythema was found in the entire examined stomach. Biopsies were taken with a cold forceps for Helicobacter pylori testing using PyloriTek test. Biopsies were taken with a cold forceps for histology. The examined esophagus was normal. Impression: - Normal examined jejunum. - Normal examined duodenum. - Gastritis. Biopsied. - Normal esophagus. Recommendation: - Return patient to hospital [facility]gan for ongoing care. - Resume previous diet. - Continue present medications. - No aspirin, ibuprofen, naproxen, or other non-steroidal anti-inflammatory drugs. Procedure Code(s): --- Professional --- 07565, Esophagogastroduodenoscopy, flexible, transoral; with biopsy, single or multiple CPT copyright 2017 [employer]. All rights reserved. The codes documented in this report are preliminary and upon special education math teacher review may be revised to meet current compliance requirements. Diogo Tee MD 04/03/2019 7:06:20 AM This report has been signed electronically. Number of Addenda: 0 Note Initiated On: 04/03/2019 6:14 AM
--- NOTE | 2019-04-03 07:09 | OP.COLON_ITS ---
Patient Name: Lu Moreira Procedure Date: 04/03/2019 6:51 AM Date of : 1945 Age: 74 Procedure: Colonoscopy Indications: Gastrointestinal bleeding Providers: Diogo Tee MD Referring MD: Chaim Jauregui DO Medicines: Monitored Anesthesia Care Patient Profile: This is a 74 year old female. Refer to note in patient chart for documentation of history and physical. Last Colonoscopy: within the past year. Complications: No immediate complications. Procedure: Pre-Anesthesia Assessment: - Prior to the procedure, a History and Physical was performed, and patient medications and allergies were reviewed. The patient is competent. The risks and benefits of the procedure and the sedation options and risks were discussed with the patient. All questions were answered and informed consent was obtained. Patient identification and proposed procedure were verified by the physician, the nurse and the anesthesiologist in the procedure room. Mental Status Examination: alert and oriented. Airway Examination: normal oropharyngeal airway and neck mobility. Respiratory Examination: clear to auscultation. CV Examination: normal. Prophylactic Antibiotics: The patient does not require prophylactic antibiotics. Prior Anticoagulants: The patient has taken no previous anticoagulant or antiplatelet agents. ASA Grade Assessment: E - Emergency. After reviewing the risks and benefits, the patient was deemed in satisfactory condition to undergo the procedure. The anesthesia plan was to use monitored anesthesia care (MAC). Immediately prior to administration of medications, the patient was re-assessed for adequacy to receive sedatives. The heart rate, respiratory rate, oxygen saturations, blood pressure, adequacy of pulmonary ventilation, and response to care were monitored throughout the procedure. The physical status of the patient was re-assessed after the procedure. After I obtained informed consent, the scope was passed under direct vision. Throughout the procedure, the patient's blood pressure, pulse, and oxygen saturations were monitored continuously. The Colonoscope was introduced through the anus and advanced to 6 cm into the ileum. The colonoscopy was performed without difficulty. The patient tolerated the procedure well. The quality of the bowel preparation was good. Scope In: 6:54:31 AM Scope Withdrawal Time 0 hours 1 minute 48 seconds Scope Out: 7:01:02 AM Total Procedure Duration Time 0 hours 6 minutes 31 seconds Findings: The perianal and digital rectal examinations were normal. The terminal ileum appeared normal. Clotted blood was found in the entire colon. Multiple medium-mouthed diverticula were found in the entire colon. Impression: - The examined portion of the ileum was normal. - Blood in the entire examined colon. - Diverticulosis in the entire examined colon. - No specimens collected. Recommendation: - Return patient to hospital egan for ongoing care. - Resume previous diet. - Repeat colonoscopy PRN. - Continue present medications. Procedure Code(s): --- Professional --- 52425, Colonoscopy, flexible; diagnostic, including collection of specimen(s) by brushing or washing, when performed (separate procedure) CPT copyright 2017 [employer]. All rights reserved. The codes documented in this report are preliminary and upon desk assistant review may be revised to meet current compliance requirements. Diogo Tee MD 04/03/2019 7:09:15 AM This report has been signed electronically. Number of Addenda: 0 Note Initiated On: 04/03/2019 6:51 AM
--- NOTE | 2019-04-03 07:11 | PCM.PN.SRG ---
Patient Problems: Active and Suspected Problems (Last Reviewed 04/01/19 @ 21:33 by Chaim Jauregui DO) GI bleed (Acute) Anemia due to acute blood loss (Acute) Subjective: still bleeding per rectum - Physical Exam Vitals/I&O's: Vital Signs Temp Pulse Resp BP Pulse Ox 98.1 F 73 18 117/49 L 94 04/03/19 06:14 04/03/19 06:14 04/03/19 06:14 04/03/19 06:14 04/03/19 06:14 Oxygen Flow Rate (L/min) 3 Oxygen Delivery Method Nasal Cannula Weight: 91.6 kg Body Mass Index (BMI) 33.5 Finger Stick Blood Glucose 99 Intake and Output for Last 24 Hours 04/01/19 04/02/19 04/03/19 23:59 23:59 23:59 Intake Total 0 / 0 3040 / 3040 Output Total 1 / 1 Balance 0 / 0 3039 / 3039 General: Alert, Oriented x3, Cooperative Neck: Carotid Bruits, Bilateral - versus radiating murmur Lungs: Diminished Cardiovascular: Murmur Abdomen: Distended - ascites Laboratory Results 04/01/19 20:00: Blood Type O NEGATIVE, Antibody Screen NEGATIVE, Crossmatch See Detail 04/01/19 20:00: Crossmatch See Detail 04/02/19 12:16: POC Glucose 65 L 04/02/19 16:50: POC Glucose 85 04/02/19 22:40: POC Glucose 138 H 04/03/19 03:50: WBC 4.3 L, RBC 2.10 L, Hgb 6.2 L, Hct 21.7 L, MCV 103.3 H D, MCH 29.5, MCHC 28.6 L, RDW Std Deviation 67.7 H, RDW Coeff of Susan 18.4 H, Plt Count 125 L, MPV 11.5, Differential Comment SCANNED 04/03/19 03:50: Sodium 135 L, Potassium 5.1, Chloride 97 L, Carbon Dioxide 24.0, Anion Gap 14, BUN 42 H, Creatinine 4.05 H, Estim Creat Clear Calc 10.63, Est GFR (MDRD) Af Amer 14 L, Est GFR (MDRD) Non-Af 11 L, BUN/Creatinine Ratio 10.4, Glucose 76, Calcium 7.4 L 04/03/19 03:50: Hemoglobin A1c Pending 04/03/19 05:28: POC Glucose 94 Current Medications Atorvastatin Calcium (Lipitor) 80 mg PO QHS [facility] Last Admin: 04/02/19 22:47 Dose: 80 mg Documented by: Carvedilol (Coreg) 12.5 mg PO BID [facility] Last Admin: 04/02/19 22:45 Dose: 12.5 mg Documented by: Cholecalciferol (Vitamin D) 5,000 unit PO MoWeFr@1000 [facility] Last Admin: 04/02/19 10:12 Dose: 5,000 unit Documented by: Cyclobenzaprine HCl (Cyclobenzaprine Hcl) 5 mg PO BID [facility] Last Admin: 04/02/19 22:45 Dose: 5 mg Documented by: Dextrose (D50w Syringe) 0 gm IV X1 PRN; Protocol PRN Reason: Hypoglycemia Gab[facility] ([facility]) [facility] Last Admin: 04/02/19 17:59 Dose: 100 mg Documented by: Gabapentin (Neurontin) 200 mg PO QHS [facility] Last Admin: 04/02/19 22:43 Dose: 200 mg Documented by: Glucagon () 1 mg IM .X1 PRN PRN Reason: Hypoglycemia Hydralazine HCl (Apresoline) 100 mg PO BID [facility] Last Admin: 04/02/19 22:47 Dose: 100 mg Documented by: Sodium Chloride () 500 mls @ 15 mls/hr IV PRN PRN PRN Reason: Blood Transfusion Sodium Chloride () 250 mls @ 15 mls/hr IV .[id number] PRN PRN Reason: Saline Flush Insulin Glargine (Lantus (Bkc)) [facility] Last Admin: 04/02/19 22:42 Dose: Not Given Documented by: Insulin Human Lispro (Humalog Kwikpen (Bkc)) 0 unit SC TIDAC [facility]; Protocol Last Admin: 04/03/19 05:45 Dose: Not Given Documented by: Isosorbide Mononitrate (Imdur) 60 mg PO QHS [facility] Last Admin: 04/02/19 23:03 Dose: 60 mg Documented by: Isosorbide Mononitrate (Imdur) 90 mg PO BREAKFAST [facility] Last Admin: 04/02/19 10:08 Dose: Not Given Documented by: Losartan Potassium (Cozaar) 50 mg PO BID [facility] Last Admin: 04/02/19 22:46 Dose: 50 mg Documented by: Magnesium Hydroxide (Milk Of Magnesia) 30 ml PO DAILY PRN PRN PRN Reason: Constipation-no bm in 3 days Melatonin (Melatonin) 3 mg PO QHS PRN PRN PRN Reason: INSOMNIA Multivit/Ca Carb/B Cmplx/FA/Prenat (Nephrocaps, Renaphro) 1 capsule PO DAILY [facility] Last Admin: 04/02/19 10:14 Dose: 1 capsule Documented by: Ondansetron HCl (Zofran) 4 mg IV Q8H PRN PRN PRN Reason: NAUSEA/VOMITING Oxycodone HCl (Oxyir) 5 mg PO Q4H PRN PRN PRN Reason: Pain Score 1-10/10 Last Admin: 04/02/19 22:54 Dose: 5 mg Documented by: Pantoprazole Sodium (Protonix) 40 mg PO DAILY [facility] Last Admin: 04/02/19 10:12 Dose: 40 mg Documented by: Pramipexole Dihydrochloride (Mirapex) 0.25 mg PO QHS [facility] Last Admin: 04/02/19 22:44 Dose: 0.25 mg Documented by: Promethazine HCl (Phenergan Tablet) 12.5 mg PO DAILY PRN PRN PRN Reason: NAUSEA Sevelamer Carbonate (Renvela) 2,400 mg PO TIDCM [facility] Last Admin: 04/02/19 18:01 Dose: 2,400 mg Documented by: Sodium Chloride () 10 - 40 ml IV UD PRN PRN Reason: SALINE FLUSH Medical Necessity - Tobacco Use Smoking Status: Former smoker Tobacco Use: Non-smoker Assessment/Plan All Active Problems (Last Reviewed 04/01/19 @ 21:33 by Chaim Jauregui DO) GI bleed (Acute) Anemia due to acute blood loss (Acute) GI bleeding - occult source. Patient notes continued bleeding. Hgb dropped to 6 again. will transfuse 1 unit additional. Endoscopy this morning - gastritis without signs of upper GI bleeding. Lower - old blood and old clot to cecal base, terminal ileum normal. divertiulosis without signs of diverticular bleed. Findings still suggest bleeding proximal to cecum, without obvious source.
[2019-04-03] MEDS: SEVELAMER CARBONATE 800 MG TABLET 2400 MG PO ×2 (08:35→16:42)
[2019-04-03] MEDS: Isosorbide Mononitrate 30 MG Tablet 90 MG PO (08:35)
[2019-04-03] MEDS: Gabapentin 100 MG Capsule PO ×2 (08:36→16:42)
[2019-04-03] MEDS: Pantoprazole Sodium 40 MG Tablet PO (08:37)
[2019-04-03] MEDS: Folic Acid/Vitamin B Comp W-C 1 Capsule 1 CAP PO (08:37)
[2019-04-03] MEDS: Losartan Potassium 50 MG Tablet PO ×2 (08:38→21:56)
[2019-04-03] MEDS: Carvedilol 12.5 MG Tablet PO ×2 (08:38→21:57)
[2019-04-03] MEDS: cycloBENZAPRine HCl 5 MG TABLET PO ×2 (08:38→21:57)
[2019-04-03] MEDS: hydrALAZINE 50 MG Tablet 100 MG PO ×2 (08:41→21:56)
--- NOTE | 2019-04-03 09:06 | PCM.PN.REN ---
Patient Problems: Active and Suspected Problems (Last Reviewed 04/01/19 @ 21:33 by Chaim Jauregui DO) GI bleed (Acute) Anemia due to acute blood loss (Acute) Subjective: still with brbpr, hgb 6.2g today - Physical Exam Vitals/I&O's: Vital Signs Temp Pulse Resp BP Pulse Ox 97.6 F L 71 18 129/51 H 100 04/03/19 07:44 04/03/19 08:41 04/03/19 07:44 04/03/19 08:41 04/03/19 07:44 Oxygen Flow Rate (L/min) 2 Oxygen Delivery Method Nasal Cannula Weight: 91.6 kg Body Mass Index (BMI) 33.5 Finger Stick Blood Glucose 99 Intake and Output for Last 24 Hours 04/01/19 04/02/19 04/03/19 23:59 23:59 23:59 Intake Total 0 / 0 3040 / 3040 Output Total 1 / 1 Balance 0 / 0 3039 / 3039 General: Alert, Oriented x3, Cooperative Lungs: Clear to auscultation Cardiovascular: Regular rate Abdomen: Bowel Sounds Present, Soft, - - ascites Laboratory Results 04/01/19 20:00: Blood Type O NEGATIVE, Antibody Screen NEGATIVE, Crossmatch See Detail 04/01/19 20:00: Crossmatch See Detail 04/01/19 20:00: Crossmatch See Detail 04/02/19 12:16: POC Glucose 65 L 04/02/19 16:50: POC Glucose 85 04/02/19 22:40: POC Glucose 138 H 04/03/19 03:50: WBC 4.3 L, RBC 2.10 L, Hgb 6.2 L, Hct 21.7 L, MCV 103.3 H D, MCH 29.5, MCHC 28.6 L, RDW Std Deviation 67.7 H, RDW Coeff of Susan 18.4 H, Plt Count 125 L, MPV 11.5, Differential Comment SCANNED 04/03/19 03:50: Sodium 135 L, Potassium 5.1, Chloride 97 L, Carbon Dioxide 24.0, Anion Gap 14, BUN 42 H, Creatinine 4.05 H, Estim Creat Clear Calc 10.63, Est GFR (MDRD) Af Amer 14 L, Est GFR (MDRD) Non-Af 11 L, BUN/Creatinine Ratio 10.4, Glucose 76, Calcium 7.4 L 04/03/19 03:50: Hemoglobin A1c Pending 04/03/19 05:28: POC Glucose 94 Current Medications Atorvastatin Calcium (Lipitor) 80 mg PO QHS [facility] Last Admin: 04/02/19 22:47 Dose: 80 mg Documented by: Carvedilol (Coreg) 12.5 mg PO BID [facility] Last Admin: 04/03/19 08:38 Dose: 12.5 mg Documented by: Cholecalciferol (Vitamin D) 5,000 unit PO MoWeFr@1000 [facility] Last Admin: 04/02/19 10:12 Dose: 5,000 unit Documented by: Cyclobenzaprine HCl (Cyclobenzaprine Hcl) 5 mg PO BID [facility] Last Admin: 04/03/19 08:38 Dose: 5 mg Documented by: Dextrose (D50w Syringe) 0 gm IV X1 PRN; Protocol PRN Reason: Hypoglycemia [facility]) [facility] Last Admin: 04/03/19 08:36 Dose: 100 mg Documented by: Gabapentin (Neurontin) 200 mg PO QHS [facility] Last Admin: 04/02/19 22:43 Dose: 200 mg Documented by: Glucagon () 1 mg IM .X1 PRN PRN Reason: Hypoglycemia Hydralazine HCl (Apresoline) 100 mg PO BID [facility] Last Admin: 04/03/19 08:41 Dose: 100 mg Documented by: Sodium Chloride () 500 mls @ 15 mls/hr IV PRN PRN PRN Reason: Blood Transfusion Sodium Chloride () 250 mls @ 15 mls/hr IV .[id number] PRN PRN Reason: Saline Flush Insulin Glargine ([facility]us ([facility])) [facility] Last Admin: 04/02/19 22:42 Dose: Not Given Documented by: Insulin Human Lispro (Humalog Kwikpen (Bk)) 0 unit SC TIDAC [facility]; Protocol Last Admin: 04/03/19 05:45 Dose: Not Given Documented by: Isosorbide Mononitrate (Imdur) 60 mg PO QHS [facility] Last Admin: 04/02/19 23:03 Dose: 60 mg Documented by: Isosorbide Mononitrate (Imdur) 90 mg PO BREAKFAST [facility] Last Admin: 04/03/19 08:35 Dose: 90 mg Documented by: Losartan Potassium (Cozaar) 50 mg PO BID [facility] Last Admin: 04/03/19 08:38 Dose: 50 mg Documented by: Magnesium Hydroxide (Milk Of Magnesia) 30 ml PO DAILY PRN PRN PRN Reason: Constipation-no bm in 3 days Melatonin (Melatonin) 3 mg PO QHS PRN PRN PRN Reason: INSOMNIA Multivit/Ca Carb/B Cmplx/FA/Prenat (Nephrocaps, Renaphro) 1 capsule PO DAILY [facility] Last Admin: 04/03/19 08:37 Dose: 1 capsule Documented by: Ondansetron HCl (Zofran) 4 mg IV Q8H PRN PRN PRN Reason: NAUSEA/VOMITING Oxycodone HCl (Oxyir) 5 mg PO Q4H PRN PRN PRN Reason: Pain Score 1-10/10 Last Admin: 04/02/19 22:54 Dose: 5 mg Documented by: Pantoprazole Sodium (Protonix) 40 mg PO DAILY [facility] Last Admin: 04/03/19 08:37 Dose: 40 mg Documented by: Pramipexole Dihydrochloride (Mirapex) 0.25 mg PO QHS [facility] Last Admin: 04/02/19 22:44 Dose: 0.25 mg Documented by: Promethazine HCl (Phenergan Tablet) 12.5 mg PO DAILY PRN PRN PRN Reason: NAUSEA Sevelamer Carbonate (Renvela) 2,400 mg PO TIDCM [facility] Last Admin: 04/03/19 08:35 Dose: 2,400 mg Documented by: Sodium Chloride () 10 - 40 ml IV UD PRN PRN Reason: SALINE FLUSH Medical Necessity - Tobacco Use Smoking Status: Former smoker Tobacco Use: Non-smoker Assessment/Plan All Active Problems (Last Reviewed 04/01/19 @ 21:33 by Chaim Jauregui DO) GI bleed (Acute) Anemia due to acute blood loss (Acute) 1. ESRD HD MWF 2. Acute GI bleed, 2u prbc for hgb 6 3. DM2 primary care mgmt 4. HTN stable 5. liver cirrhosis with ascites paracentesis as needed.
[2019-04-03 09:10] LABS: Hemoglobin A1c < 3.5 % (4.2-6.3)
--- NOTE | 2019-04-03 09:34 | PCM.PROGNOTE ---
Patient Problems: Active and Suspected Problems (Last Reviewed 04/01/19 @ 21:33 by Chaim Jauregui DO) GI bleed (Acute) Anemia due to acute blood loss (Acute) Subjective: Chief complaint: Follow-up after admission for GI bleed and acute on chronic symptomatic blood loss anemia. Patient seen and examined. No acute events overnight. She had at least 7-8 bloody bowel movement overnight. She denies dizziness, lightheadedness, syncope or presyncope. She denies chest pain or shortness of breath. She underwent upper EGD and colonoscopy this morning. At this time, her vital signs are stable. - Physical Exam Vitals/I&O's: Vital Signs Temp Pulse Resp BP Pulse Ox 98.0 F 64 18 143/74 H 93 04/03/19 09:32 04/03/19 09:32 04/03/19 09:32 04/03/19 09:32 04/03/19 09:32 Oxygen Flow Rate (L/min) 2 Oxygen Delivery Method Room Air Weight: 201 lb 15.095 oz Body Mass Index (BMI) 33.5 Finger Stick Blood Glucose 99 Intake and Output for Last 24 Hours 04/01/19 04/02/19 04/03/19 23:59 23:59 23:59 Intake Total 0 / 0 3040 / 3040 0 / 0 Output Total 1 / 1 Balance 0 / 0 3039 / 3039 0 / 0 General: Alert, Oriented x3, Cooperative HEENT: Atraumatic, PERRLA, EOMI, Normocephalic Oral: Moist Mucosa, No Gingival or Mucosal Lesions/ Ulcerations Neck: Supple, No JVD, Negative Carotid Bruits, Trachea Midline, Thyroid Normal Size and Texture Lungs: Clear to auscultation, Normal air movement, No rhonchi, No wheeze, No rales, Diminished Cardiovascular: Regular rate, Regular Rhythm, Normal S1, Normal S2, Murmur Abdomen: Bowel Sounds Present, Soft, Non Tender, Non-Distended, No Hepato-splenomegaly Extremities: No clubbing, No cyanosis, Edema Skin: No rashes, No breakdown Lymphatic: No Cervical, Supraclavicular, or Inguinal Adenopathy Neurological: Cranial nerves II-XII grossly intact, Neuro grossly intact Psych/Mental Status: Normal Affect, Appropriate Laboratory Results 04/01/19 20:00: Blood Type O NEGATIVE, Antibody Screen NEGATIVE, Crossmatch See Detail 04/01/19 20:00: Crossmatch See Detail 04/01/19 20:00: Crossmatch See Detail 04/02/19 12:16: POC Glucose 65 L 04/02/19 16:50: POC Glucose 85 04/02/19 22:40: POC Glucose 138 H 04/03/19 03:50: WBC 4.3 L, RBC 2.10 L, Hgb 6.2 L, Hct 21.7 L, MCV 103.3 H D, MCH 29.5, MCHC 28.6 L, RDW Std Deviation 67.7 H, RDW Coeff of Susan 18.4 H, Plt Count 125 L, MPV 11.5, Differential Comment SCANNED 04/03/19 03:50: Sodium 135 L, Potassium 5.1, Chloride 97 L, Carbon Dioxide 24.0, Anion Gap 14, BUN 42 H, Creatinine 4.05 H, Estim Creat Clear Calc 10.63, Est GFR (MDRD) Af Amer 14 L, Est GFR (MDRD) Non-Af 11 L, BUN/Creatinine Ratio 10.4, Glucose 76, Calcium 7.4 L 04/03/19 03:50: Hemoglobin A1c < 3.5 L 04/03/19 05:28: POC Glucose 94 Current Medications Atorvastatin Calcium (Lipitor) 80 mg PO QHS [facility] Last Admin: 04/02/19 22:47 Dose: 80 mg Documented by: Carvedilol (Coreg) 12.5 mg PO BID [facility] Last Admin: 04/03/19 08:38 Dose: 12.5 mg Documented by: Cholecalciferol (Vitamin D) 5,000 unit PO MoWeFr@1000 [facility] Last Admin: 04/02/19 10:12 Dose: 5,000 unit Documented by: Cyclobenzaprine HCl (Cyclobenzaprine Hcl) 5 mg PO BID [facility] Last Admin: 04/03/19 08:38 Dose: 5 mg Documented by: Dextrose (D50w Syringe) 0 gm IV X1 PRN; Protocol PRN Reason: Hypoglycemia [facility] Last Admin: 04/03/19 08:36 Dose: 100 mg Documented by: Gabapentin (Neurontin) 200 mg PO QHS [facility] Last Admin: 04/02/19 22:43 Dose: 200 mg Documented by: Glucagon () 1 mg IM .X1 PRN PRN Reason: Hypoglycemia Hydralazine HCl (Apresoline) 100 mg PO BID [facility] Last Admin: 04/03/19 08:41 Dose: 100 mg Documented by: Sodium Chloride () 500 mls @ 15 mls/hr IV PRN PRN PRN Reason: Blood Transfusion Sodium Chloride () 250 mls @ 15 mls/hr IV .[id number] PRN PRN Reason: Saline Flush Insulin Glargine (Lantus ([facility])) 11 units SC QHS [facility] Last Admin: 04/02/19 22:42 Dose: Not Given Documented by: Insulin Human Lispro (Humalog Kwikpen ([facility])) 0 unit SC TIDAC [facility]; Protocol Last Admin: 04/03/19 05:45 Dose: Not Given Documented by: Isosorbide Mononitrate (Imdur) 60 mg PO QHS [facility] Last Admin: 04/02/19 23:03 Dose: 60 mg Documented by: Isosorbide Mononitrate (Imdur) 90 mg PO BREAKFAST [facility] Last Admin: 04/03/19 08:35 Dose: 90 mg Documented by: Losartan Potassium (Cozaar) 50 mg PO BID [facility] Last Admin: 04/03/19 08:38 Dose: 50 mg Documented by: Magnesium Hydroxide (Milk Of Magnesia) 30 ml PO DAILY PRN PRN PRN Reason: Constipation-no bm in 3 days Melatonin (Melatonin) 3 mg PO QHS PRN PRN PRN Reason: INSOMNIA Multivit/Ca Carb/B Cmplx/FA/Prenat (Nephrocaps, Renaphro) 1 capsule PO DAILY [facility] Last Admin: 04/03/19 08:37 Dose: 1 capsule Documented by: Ondansetron HCl (Zofran) 4 mg IV Q8H PRN PRN PRN Reason: NAUSEA/VOMITING Oxycodone HCl (Oxyir) 5 mg PO Q4H PRN PRN PRN Reason: Pain Score 1-10/10 Last Admin: 04/02/19 22:54 Dose: 5 mg Documented by: Pantoprazole Sodium (Protonix) 40 mg PO DAILY [facility] Last Admin: 04/03/19 08:37 Dose: 40 mg Documented by: Pramipexole Dihydrochloride (Mirapex) 0.25 mg PO QHS [facility] Last Admin: 04/02/19 22:44 Dose: 0.25 mg Documented by: Promethazine HCl (Phenergan Tablet) 12.5 mg PO DAILY PRN PRN PRN Reason: NAUSEA Sevelamer Carbonate (Renvela) 2,400 mg PO TIDCM [facility] Last Admin: 04/03/19 08:35 Dose: 2,400 mg Documented by: Sodium Chloride () 10 - 40 ml IV UD PRN PRN Reason: SALINE FLUSH Medical Necessity - Tobacco Use Smoking Status: Former smoker Tobacco Use: Non-smoker Assessment/Plan All Active Problems (Last Reviewed 04/01/19 @ 21:33 by Chaim Jauregui DO) GI bleed (Acute) Anemia due to acute blood loss (Acute) This is a 74 years old female patient presented to the emergency room because of bleeding per rectum, found to have GI bleed which is probably lower GI bleed complicated by acute on chronic symptomatic blood loss anemia. #1 GI bleed: In context of history of recurrent GI bleed in the past. She underwent upper EGD and colonoscopy this morning. Upper EGD revealed normal jejunum, normal duodenum, gastritis, normal esophagus, no active bleeding. She had upper endoscopy and colonoscopy on April,. On colonoscopy, patient was found to have diverticulosis without evidence of active bleeding. Colonoscopy revealed blood in the entire colon, diverticulosis, no source of bleeding. Nuclear bleeding scan performed yesterday and showed no evidence of acute GI bleed. Hemoglobin and hematocrit dropping significantly. Vital signs are stable. Plan to transfuse as needed, repeat CBC tomorrow morning #2 acute on chronic blood loss anemia: She received a total of 3 units of packed RBCs. Today's hemoglobin is again 6.2 g/dL, it is dropping. Plan to transfuse another 2 units of packed RBCs, repeat H&H after blood transfusion, transfuse if hemoglobin remains below 8, repeat CBC tomorrow morning. #3 ESRD on hemodialysis: On hemodialysis on Mondays, Wednesdays and Fridays. Nephrology on the case. #4 type 2 diabetes mellitus: Blood sugar stable, continue Lantus nightly, insulin sliding scale. #5 CAD status post stents: Stable, continue statins, Coreg, isosorbide mononitrate and losartan. Hold aspirin for now. #6 hypertension: Blood pressure stable, continue Coreg, hydralazine, nitrate and losartan. #7 chronic back pain: Continue OxyIR PRN. #8 DVT prophylaxis: SCDs. This note was generated with [employer] dictation software. It may contain incorrect words, spelling, and punctuation that were not noted in checking the note before signing. Code Visit Inpatient E&M: 69511 Subs Hosp L2
[2019-04-03] MEDS: oxyCODONE 5 MG Tablet PO ×3 (09:36→23:16)
[2019-04-03 13:20] LABS: Bedside Glucose 157 mg/dL (70-110)
--- NOTE | 2019-04-03 13:27 | CASEMGMT ---
MARGO faxed updates along with PT/OT evaluations for patient to [facility] as patient will need a pre-cert to return. MARGO also called Candelaria at [facility] and let her know this information and she will start the pre-cert. Plan: d/c back to [facility] pending insurance approval. Marylou RAMIREZ MSW
[2019-04-03 17:25] LABS: Bedside Glucose 155 mg/dL (70-110)
[2019-04-03] MEDS: Nepro Liquid 120 ML LIQUID PO ×2 (17:31→22:04)
[2019-04-03 17:40] LABS: Hematocrit 31.1 % (37-47); Hemoglobin 9.7 g/dL (12.0-15.0)
[2019-04-03 21:25] LABS: Bedside Glucose 181 mg/dL (70-110)
[2019-04-03] MEDS: Atorvastatin Calcium 80 MG Tablet PO (21:57)
[2019-04-03] MEDS: Pramipexole Di-HCl 0.25 MG Tablet PO (21:57)
[2019-04-03] MEDS: Gabapentin 100 MG Capsule 200 MG PO (21:57)
[2019-04-03] MEDS: Isosorbide Mononitrate 60 MG Tablet PO (21:58)
[2019-04-04] VITALS (9 sets, daily range): BP systolic 116–137; BP diastolic 42–62; PULSE 66–76; RESP 18; TEMP 36.7–37.3; O2SAT 95–100
[2019-04-04 06:21] LABS: Absolute Lymphocyte Count 1.08 X10^3/uL (0.83-4.51); Basophil# 0.06 X10^3/uL; Basophil% 1.5 % (0-1); Eosinophil# 0.15 X10^3/uL; Eosinophils% 3.8 % (0-5); Hematocrit 30.6 % (37-47); Hemoglobin 9.6 g/dL (12.0-15.0); Lymphocyte # 1.08 X10^3/ul (4.0); Lymphocyte % 27.6 % (19-41); Mean Corp Hgb Conc 31.4 g/dL (32-36); Mean Corpuscular Hgb 29.8 pg (27.0-32.0); Mean Platelet Vol. 9.3 fl (6.2-12.0); Monocyte# 0.66 X10^3/uL; Monocyte% 16.8 % (0-10); NRBC Flagged by Analyzer 0 % (0-5); Neutrophil # 1.96 X10^3/uL (2.7-7.7); POSITIVE COUNT YES; Platelet Count 96 K/mm3 (150-450); RBC Distribution Width CV 17.5 % (11.6-14.6); Red Blood Count 3.22 M/mm3 (4.2-5.4); White Blood Count 3.9 K/mm3 (4.4-11.0)
[2019-04-04 06:24] LABS: Differential Indicated SCAN CRITERIA MET
[2019-04-04 06:36] LABS: Bedside Glucose 125 mg/dL (70-110)
[2019-04-04 06:44] LABS: Anisocytosis 1+; Platelet Estimate MOD DEC (ADEQ)
[2019-04-04 06:45] LABS: Hypochromasia 1+
--- NOTE | 2019-04-04 07:21 | PCM.PN.SRG ---
Patient Problems: Active and Suspected Problems (Last Reviewed 04/01/19 @ 21:33 by Chaim Jauregui DO) GI bleed (Acute) Anemia due to acute blood loss (Acute) Subjective: scant old blood noted - Physical Exam Vitals/I&O's: Vital Signs Temp Pulse Resp BP Pulse Ox 99.1 F 68 18 116/47 L 99 04/04/19 05:35 04/04/19 07:17 04/04/19 05:35 04/04/19 05:35 04/04/19 05:35 Oxygen Flow Rate (L/min) 2 Oxygen Delivery Method Nasal Cannula Weight: 94.1 kg Body Mass Index (BMI) 33.5 Finger Stick Blood Glucose 99 Intake and Output for Last 24 Hours 04/02/19 04/03/19 04/04/19 23:59 23:59 23:59 Intake Total 3040 / 3040 2618 / 2618 240 / 240 Output Total Balance 3039 / 3039 2618 / 2618 240 / 240 General: Alert, Oriented x3, Cooperative Lungs: Clear to auscultation, Normal air movement Cardiovascular: Regular rate, No murmurs Abdomen: Bowel Sounds Present, Soft Laboratory Results 04/01/19 20:00: Crossmatch See Detail 04/01/19 20:00: Crossmatch See Detail 04/03/19 03:50: Hemoglobin A1c < 3.5 L 04/03/19 13:13: POC Glucose 157 H 04/03/19 16:45: POC Glucose 155 H 04/03/19 17:13: Hgb 9.7 L, Hct 31.1 L 04/03/19 21:02: POC Glucose 181 H 04/04/19 05:33: WBC 3.9 L, RBC 3.22 L, Hgb 9.6 L, Hct 30.6 L, MCV 95.0 D, MCH 29.8, MCHC 31.4 L, RDW Std Deviation 60.0 H, RDW Coeff of Susan 17.5 H, Plt Count 96 L, MPV 9.3, Immature Gran % (Auto) 0.300, Neut % (Auto) 50.0, Lymph % (Auto) 27.6, Braxton % (Auto) 16.8 H, Eos % (Auto) 3.8, Baso % (Auto) 1.5 H, Absolute Neuts (auto) 2.0, Absolute Lymphs (auto) 1.08, Nucleated RBC % 0, Platelet Estimate MOD DEC, Hypochromasia 1+, Anisocytosis 1+ 04/04/19 06:30: POC Glucose 125 H Current Medications Atorvastatin Calcium (Lipitor) 80 mg PO QHS [facility] Last Admin: 04/03/19 21:57 Dose: 80 mg Documented by: Carvedilol (Coreg) 12.5 mg PO BID [facility] Last Admin: 04/03/19 21:57 Dose: 12.5 mg Documented by: Cholecalciferol (Vitamin D) 5,000 unit PO MoWeFr@1000 [facility] Last Admin: 04/02/19 10:12 Dose: 5,000 unit Documented by: Cyclobenzaprine HCl (Cyclobenzaprine Hcl) 5 mg PO BID [facility] Last Admin: 04/03/19 21:57 Dose: 5 mg Documented by: Dextrose (D50w Syringe) 0 gm IV X1 PRN; Protocol PRN Reason: Hypoglycemia [facility] Last Admin: 04/03/19 16:42 Dose: 100 mg Documented by: Gabapentin (Neurontin) 200 mg PO QHS [facility] Last Admin: 04/03/19 21:57 Dose: 200 mg Documented by: Glucagon () 1 mg IM .X1 PRN PRN Reason: Hypoglycemia Hydralazine HCl (Apresoline) 100 mg PO BID [facility] Last Admin: 04/03/19 21:56 Dose: 100 mg Documented by: Sodium Chloride () 500 mls @ 15 mls/hr IV PRN PRN PRN Reason: Blood Transfusion Last Infusion: 04/03/19 16:00 Dose: Infused Documented by: Sodium Chloride () 250 mls @ 15 mls/hr IV .[id number] PRN PRN Reason: Saline Flush Insulin Glargine (Lantus (Bk)) 11 units SC QHS [facility] Last Admin: 04/03/19 22:00 Dose: 11 units Documented by: Insulin Human Lispro (Humalog Kwikpen (Bk)) 0 unit SC TIDAC [facility]; Protocol Last Admin: 04/04/19 06:32 Dose: Not Given Documented by: [facility]) [facility] Last Admin: 04/03/19 21:58 Dose: 60 mg Documented by: Isosorbide Mononitrate (Imdur) 90 mg PO BREAKFAST [facility] Last Admin: 04/03/19 08:35 Dose: 90 mg Documented by: Losartan Potassium (Cozaar) 50 mg PO BID [facility] Last Admin: 04/03/19 21:56 Dose: 50 mg Documented by: Magnesium Hydroxide (Milk Of Magnesia) 30 ml PO DAILY PRN PRN PRN Reason: Constipation-no bm in 3 days Melatonin (Melatonin) 3 mg PO QHS PRN PRN PRN Reason: INSOMNIA Multivit/Ca Carb/B Cmplx/FA/Prenat (Nephrocaps, Renaphro) 1 capsule PO DAILY [facility] Last Admin: 04/03/19 08:37 Dose: 1 capsule Documented by: Nutritional Formula (Nepro Carb Steady) 120 ml PO 4X/DAY [facility] Last Admin: 04/03/19 22:04 Dose: 120 ml Documented by: Ondansetron HCl (Zofran) 4 mg IV Q8H PRN PRN PRN Reason: NAUSEA/VOMITING Oxycodone HCl (Oxyir) 5 mg PO Q4H PRN PRN PRN Reason: Pain Score 1-10/10 Last Admin: 04/03/19 23:16 Dose: 5 mg Documented by: Pantoprazole Sodium (Protonix) 40 mg PO DAILY [facility] Last Admin: 04/03/19 08:37 Dose: 40 mg Documented by: Pramipexole Dihydrochloride (Mirapex) 0.25 mg PO QHS [facility] Last Admin: 04/03/19 21:57 Dose: 0.25 mg Documented by: Promethazine HCl (Phenergan Tablet) 12.5 mg PO DAILY PRN PRN PRN Reason: NAUSEA Sevelamer Carbonate (Renvela) 2,400 mg PO TIDCM [facility] Last Admin: 04/03/19 16:42 Dose: 2,400 mg Documented by: Sodium Chloride () 10 - 40 ml IV UD PRN PRN Reason: SALINE FLUSH Medical Necessity - Tobacco Use Smoking Status: Former smoker Tobacco Use: Non-smoker Assessment/Plan All Active Problems (Last Reviewed 04/01/19 @ 21:33 by Chaim Jauregui DO) GI bleed (Acute) Anemia due to acute blood loss (Acute) GI bleeding - occult source. Patient notes no further significant bleeding. Hgb increased to 9.6 after transfusion of one additional unit of packed red cells. Endoscopy yesterday - gastritis without signs of upper GI bleeding. Lower - old blood and old clot to cecal base, terminal ileum normal. divertiulosis without signs of diverticular bleed. Findings still suggest bleeding proximal to cecum, without obvious source. OK for discharge from my standpoint after dialysis. Please have patient follow-up in my office next week.
[2019-04-04 08:07] LABS: Albumin, Serum 2.3 g/dL (3.2-5.0); BUN 29 mg/dL (7-18); BUN/Creat Ratio 7.1 RATIO (10-20); Calcium,Total 7.5 mg/dL (8.5-10.1); Chloride 95 mmol/L (98-107); Creatinine, Serum 4.08 mg/dL (0.55-1.02); EST Glomerular Filtration Rate 11 mL/min (>60); Est Glom Filt Rate - Afr Amer 14 mL/min (>60); Estimated Creatinine Clearance 10.56 ml/min; Glucose 110 mg/dL (74-106); Phosphorus 4.6 mg/dL (2.5-4.9); Potassium 5.2 mmol/L (3.5-5.1); Sodium Level 131 mmol/L (136-145)
[2019-04-04] MEDS: oxyCODONE 5 MG Tablet PO (08:43)
--- NOTE | 2019-04-04 10:45 | PCM.PN.REN ---
Patient Problems: Active and Suspected Problems (Last Reviewed 04/01/19 @ 21:33 by Chaim Jauregui DO) GI bleed (Acute) Anemia due to acute blood loss (Acute) Subjective: Seen on dialysis. Tolerating 4 L fluid removal. Will challenge fluid removal further. Bright red blood per rectum improved. Hemoglobin stable. - Physical Exam Vitals/I&O's: Vital Signs Temp Pulse Resp BP Pulse Ox 98.1 F 69 18 126/62 H 100 04/04/19 08:41 04/04/19 08:41 04/04/19 08:41 04/04/19 08:41 04/04/19 08:41 Oxygen Flow Rate (L/min) 2 Oxygen Delivery Method Nasal Cannula Weight: 94.1 kg Body Mass Index (BMI) 33.5 Finger Stick Blood Glucose 99 Intake and Output for Last 24 Hours 04/02/19 04/03/19 04/04/19 23:59 23:59 23:59 Intake Total 3040 / 3040 2618 / 2618 240 / 240 Output Total Balance 3039 / 3039 2618 / 2618 240 / 240 General: Alert, Oriented x3, Cooperative Lungs: Clear to auscultation Cardiovascular: Regular rate Abdomen: Bowel Sounds Present, Soft, Distended, - - Ascites Extremities: Edema Psych/Mental Status: Normal Affect, Appropriate, Alert and oriented to time, place, person, mood and affect Laboratory Results 04/01/19 20:00: Crossmatch See Detail 04/03/19 13:13: POC Glucose 157 H 04/03/19 16:45: POC Glucose 155 H 04/03/19 17:13: Hgb 9.7 L, Hct 31.1 L 04/03/19 21:02: POC Glucose 181 H 04/04/19 05:33: WBC 3.9 L, RBC 3.22 L, Hgb 9.6 L, Hct 30.6 L, MCV 95.0 D, MCH 29.8, MCHC 31.4 L, RDW Std Deviation 60.0 H, RDW Coeff of Susan 17.5 H, Plt Count 96 L, MPV 9.3, Immature Gran % (Auto) 0.300, Neut % (Auto) 50.0, Lymph % (Auto) 27.6, Emmons % (Auto) 16.8 H, Eos % (Auto) 3.8, Baso % (Auto) 1.5 H, Absolute Neuts (auto) 2.0, Absolute Lymphs (auto) 1.08, Nucleated RBC % 0, Platelet Estimate MOD DEC, Hypochromasia 1+, Anisocytosis 1+ 04/04/19 05:33: Hgb Cancelled 04/04/19 05:33: Sodium 131 L, Potassium 5.2 H, Chloride 95 L, Carbon Dioxide 28.0, BUN 29 H, Creatinine 4.08 H, Estim Creat Clear Calc 10.56, Est GFR (MDRD) Af Amer 14 L, Est GFR (MDRD) Non-Af 11 L, BUN/Creatinine Ratio 7.1 L, Glucose 110 H, Calcium 7.5 L, Phosphorus 4.6, Albumin 2.3 L 04/04/19 06:30: POC Glucose 125 H Current Medications Atorvastatin Calcium (Lipitor) 80 mg PO QHS [facility] Last Admin: 04/03/19 21:57 Dose: 80 mg Documented by: Carvedilol (Coreg) 12.5 mg PO BID [facility] Last Admin: 04/03/19 21:57 Dose: 12.5 mg Documented by: Cholecalciferol (Vitamin D) 5,000 unit PO MoWeFr@1000 [facility] Last Admin: 04/02/19 10:12 Dose: 5,000 unit Documented by: Cyclobenzaprine HCl (Cyclobenzaprine Hcl) 5 mg PO BID [facility] Last Admin: 04/03/19 21:57 Dose: 5 mg Documented by: Dextrose (D50w Syringe) 0 gm IV X1 PRN; Protocol PRN Reason: Hypoglycemia [facility] Admin: 04/03/19 16:42 Dose: 100 mg Documented by: Gabapentin (Neurontin) 200 mg PO QHS [facility] Last Admin: 04/03/19 21:57 Dose: 200 mg Documented by: Glucagon () 1 mg IM .X1 PRN PRN Reason: Hypoglycemia Hydralazine HCl (Apresoline) 100 mg PO BID [facility] Last Admin: 04/03/19 21:56 Dose: 100 mg Documented by: Sodium Chloride () 500 mls @ 15 mls/hr IV PRN PRN PRN Reason: Blood Transfusion Last Infusion: 04/03/19 16:00 Dose: Infused Documented by: Sodium Chloride () 250 mls @ 15 mls/hr IV .[id number] PRN PRN Reason: Saline Flush Insulin Glargine (Lantus (Bk)) 11 units SC QHS [facility] Last Admin: 04/03/19 22:00 Dose: 11 units Documented by: Insulin Human Lispro (Humalog Kwikpen ([facility])) 0 unit SC TIDAC [facility]; Protocol Last Admin: 04/04/19 06:32 Dose: Not Given Documented by: Isosorbide Mononitrate (Imdur) 60 mg PO QHS [facility] Last Admin: 04/03/19 21:58 Dose: 60 mg Documented by: Isosorbide Mononitrate (Imdur) 90 mg PO BREAKFAST [facility] Last Admin: 04/03/19 08:35 Dose: 90 mg Documented by: Losartan Potassium (Cozaar) 50 mg PO BID [facility] Last Admin: 04/03/19 21:56 Dose: 50 mg Documented by: Magnesium Hydroxide (Milk Of Magnesia) 30 ml PO DAILY PRN PRN PRN Reason: Constipation-no bm in 3 days Melatonin (Melatonin) 3 mg PO QHS PRN PRN PRN Reason: INSOMNIA Multivit/Ca Carb/B Cmplx/FA/Prenat (Nephrocaps, Renaphro) 1 capsule PO DAILY [facility] Last Admin: 04/03/19 08:37 Dose: 1 capsule Documented by: Nutritional Formula (Nepro Carb Steady) 120 ml PO 4X/DAY [facility] Last Admin: 04/03/19 22:04 Dose: 120 ml Documented by: Ondansetron HCl (Zofran) 4 mg IV Q8H PRN PRN PRN Reason: NAUSEA/VOMITING Oxycodone HCl (Oxyir) 5 mg PO Q4H PRN PRN PRN Reason: Pain Score 1-10/10 Last Admin: 04/04/19 08:43 Dose: 5 mg Documented by: Pantoprazole Sodium (Protonix) 40 mg PO DAILY [facility] Last Admin: 04/03/19 08:37 Dose: 40 mg Documented by: Pramipexole Dihydrochloride (Mirapex) 0.25 mg PO QHS [facility] Last Admin: 04/03/19 21:57 Dose: 0.25 mg Documented by: Promethazine HCl (Phenergan Tablet) 12.5 mg PO DAILY PRN PRN PRN Reason: NAUSEA Sevelamer Carbonate (Renvela) 2,400 mg PO TIDCM [facility] Last Admin: 04/03/19 16:42 Dose: 2,400 mg Documented by: Sodium Chloride () 10 - 40 ml IV UD PRN PRN Reason: SALINE FLUSH Medical Necessity - Tobacco Use Smoking Status: Former smoker Tobacco Use: Non-smoker Assessment/Plan All Active Problems (Last Reviewed 04/01/19 @ 21:33 by Chaim Jauregui DO) GI bleed (Acute) Anemia due to acute blood loss (Acute) 1. ESRD HD MWF. Seen on dialysis. Proceeding without incident 2. Acute GI bleed, hemoglobin stable 3. DM2 primary care mgmt 4. HTN stable 5. liver cirrhosis with ascites paracentesis as needed.
[2019-04-04 11:16] LABS: Bedside Glucose 133 mg/dL (70-110)
[2019-04-04 11:55] LABS: Hematocrit 30.2 % (37-47); Hemoglobin 9.6 g/dL (12.0-15.0)
--- NOTE | 2019-04-04 12:07 | PCM.TXEXTCAR ---
- Diet 04/03/19 08:43 Diet: Renal - Carb-Controlled Is pt able to select menu?: Yes Diet Comments: diet as tolerates - Routine Orders/Code Status O2 Liters per Minute: 3 O2 Frequency: PRN Keep PO Greater than or Equal to (%): 92 Code Status: Full Code - Suggestions for Active Care Change Position every (hours): 3 Hours to sit in a chair: 2 Times a day to sit in chair: 3 - Therapies Weight Bearing: Weight bearing as tolerated Physical Therapy: Eval and Treat Occupational Therapy: Eval and Treat - Allergies/Procedures Done in Hospital Allergies/Adverse Reactions: Allergies lisinopril Allergy (Severe, Verified 03/14/19 11:04) Angioedema nebivolol HCl [From Bystolic] Adverse Reaction (Severe, Verified 03/14/19 11:04) bradycardia BRADYCARDIA - Type of Care/Length of Stay Estimated LOS: Convalescent Care Less Than 30 days Type of Care Needed: Skilled Rehab Potential: Fair Prognosis: Fair - Additional Orders/Day of Discharge H&P will serve as current which was dated: 04/01/19 Day of Discharge: 04/04/19 - Dietary and Speech Recommendations Dietitian Recommendations/Changes: Rec advance diet as tolerated to cardiac, low sodium w/ fluid restriction as indicated. Will provide pt Ensure Clear at meals while on clear liquid diet. - Follow Up Care Primary Care Physician: Davy Coleman MD [STAFF PHYSICIAN] - Please follow up with your Primary Care Physician in: 1-2 weeks. Please Follow Up With: Diogo Tee MD When: this coming week. Please Follow Up With: Anuradha Crawley DO When: please call her office.
--- NOTE | 2019-04-04 12:32 | PHA.DC.MR ---
Pharmacy Service has performed discharge medication reconciliation for this patient. Home Medications Cholecalciferol (Vitamin D3) [Vitamin D3] 5,000 unit PO MOWEFR 07/27/17 pantoprazole 40 mg tablet,delayed release 40 mg PO DAILY 08/21/17 Atorvastatin Calcium [Lipitor] 80 mg PO QHS 12/26/17 Losartan Potassium [Cozaar] 50 mg PO BID 12/26/17 Carvedilol 12.5 mg PO BID 05/10/18 Insulin Lispro [Humalog] See Protocol SC TIDCM 05/10/18 Insulin Glargine [Lantus SoloStar Pen] 11 units SC QHS 05/31/18 Cyclobenzaprine HCl 5 mg PO BID 06/11/18 B Complex W-C No.20/Folic Acid [Virt-Caps Softgel] 1 mg PO UD 09/20/18 Docusate Sodium [Colace] 100 mg PO BID 02/13/19 Gabapentin [Neurontin] 100 mg PO BID 02/13/19 Gabapentin [Neurontin] 200 mg PO QHS 02/13/19 Hydralazine HCl 100 mg PO BID 02/13/19 Isosorbide Mononitrate [Imdur] 60 mg PO QHS 02/13/19 Ropinirole HCl [Requip] 0.5 mg PO QHS 02/13/19 Sevelamer Carbonate 2,400 mg PO TIDCM 02/13/19 Melatonin 3 mg PO QHS 03/14/19 Oxycodone HCl 5 mg PO BID 03/14/19 Aspirin E.C. [Ecotrin] 81 mg PO DAILY@0800 #1 03/18/19 Isosorbide Mononitrate [Imdur] 90 mg PO DAILY 04/01/19 Oxycodone HCl 5 mg PO Q6H PRN PRN 04/01/19 The patient's discharge medication list was reviewed for discrepancies and discrepancies were resolved.
--- NOTE | 2019-04-04 12:50 | DIALYSIS ---
Hemodialysis tx completed x 4 hours without complications. Pt tolerated tx well, fluid removed 4,500ml using crit-line per Dr. Crawley. Vital stable throughout tx. Verabl report given to EDIN Chacon post tx. Next HD tx 04/07/19
--- NOTE | 2019-04-04 13:50 | PCM.DC.SUM ---
Discharge Date and Diagnosis Date of Admission: 04/01/19 Date of Discharge: 04/04/19 - Primary Discharge Diagnosis Active and Suspected Problems (Last Reviewed 04/01/19 @ 21:33 by Chaim Jauregui DO) #1 GI bleed, without obvious source of bleeding. #2 acute on chronic blood loss anemia. #3 ESRD on hemodialysis. 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) Stented coronary artery (Chronic) Cutting Balloon and TAMI (3.0X18 mm Xience) Proximal LAD 04/18/2012; Rotational atherectomy to proximal, id and distal RCA with two overlapping 4.0 X 38 Synergy TAMI ([facility] main) Ascites (Chronic) Pancytopenia (Chronic) Other specified peripheral vascular diseases (Chronic) Afib (Chronic) Congenital coronary artery anomaly (Chronic) Bradycardia (Chronic) CAD (coronary artery disease) (Chronic) Diabetes mellitus, type II (Chronic) Hyperlipidemia (Chronic) Hypothyroidism (Chronic) Anemia in chronic kidney disease (Chronic) Hypertension (Chronic) End stage renal disease on dialysis (Chronic) Hospital Course and Treatment Imaging Results: Clinical Impression(s) from Imaging Studies GI Bleed Scan Nuclear Medicine 04/01/19 22:29 INDICATION: Abdominal pain, gastrointestinal hemorrhage. TECHNIQUE: After the ministration 25.7 mCi of technetium 90 9M tagged red blood cells intravenously, multiple scintigraphic images of the abdomen were obtained. Next FINDINGS: Normal uptake is seen within the abdominal aorta, iliac arteries, liver, spleen. No abnormal increased uptake is seen within the abdomen to suggest active gastrointestinal hemorrhage. IMPRESSION: No active gastrointestinal hemorrhage. Electronically Signed: Diogo Pearl MD at 9:36 EST Tel , Service support , NM/GI Bleed Scan Operations: None, - Procedures: Blood transfusion, Dialysis Summary of Care Provided: Patient seen and examined on the day of discharge and appeared to be stable to be [facility]. She mentioned that bloody stool is significantly improved although she still having some small amount of the blood in the stool. Her vital signs are stable. Her hemoglobin and hematocrit stabilized. The patient is a 74 year old F patient presented to the emergency room because of bleeding per rectum and she was found to have GI bleed with acute on chronic symptomatic blood loss anemia. This patient had a history of recurrent GI bleed in the past. Her hemoglobin was as low as 6 g/dL. She did have sera hematochezia per rectum multiple times. She received a total of 5 units of blood transfusion. Nuclear GI bleeding scan performed that showed no evidence of active GI bleed. General surgery consulted and patient underwent upper EGD and colonoscopy. Upper EGD revealed normal jejunum, normal duodenum, gastritis, normal esophagus and no evidence of active bleeding. Colonoscopy also done and revealed diverticulosis, blood in the entire colon without source of active bleeding. Patient received blood transfusion as indicated and her hemoglobin and hematocrit were monitored. After the third unit of the blood transfusion, her hemoglobin stabilized and remained above 9 g/dL. On the day of discharge, patient reported that she is having less bleeding. Her hemoglobin upon discharge was 9.6 g/dL. Repeat H&H at noon on the day of discharge remained at 9.6 g/dL and did not drop. Patient had a history of ESRD and she was continued on her hemodialysis as per her schedule. [facility] in a stable medical condition, discharged on Protonix 40 mg p.o. daily, continued on her previous home medications without any changes, plan to follow-up with Dr. Sinclair this coming week, follow-up with PCP in 1 to 2 weeks and follow-up with nephrology as scheduled. - Physical Exam Vitals/I&O's: Vital Signs Temp Pulse Resp BP Pulse Ox 98.1 F 69 18 126/62 H 100 04/04/19 08:41 04/04/19 08:41 04/04/19 08:41 04/04/19 08:41 04/04/19 08:41 Oxygen Flow Rate (L/min) 2 Oxygen Delivery Method Nasal Cannula Weight: 207 lb 7.28 oz Body Mass Index (BMI) 33.5 Finger Stick Blood Glucose 99 Intake and Output for Last 24 Hours 04/02/19 04/03/19 04/04/19 23:59 23:59 23:59 Intake Total 3040 / 3040 2618 / 2618 240 / 240 Output Total Balance 3039 / 3039 2618 / 2618 240 / 240 General: Alert, Oriented x3, Cooperative, No apparent distress HEENT: Atraumatic, PERRLA, EOMI, Normocephalic Oral: Moist Mucosa, No Gingival or Mucosal Lesions/ Ulcerations Neck: Supple, No JVD, Negative Carotid Bruits, Trachea Midline, Thyroid Normal Size and Texture Lungs: Clear to auscultation, No rhonchi, No wheeze, No rales, Diminished Cardiovascular: Regular rate, Regular Rhythm, Normal S1, Normal S2, Murmur Abdomen: Bowel Sounds Present, Soft, Non Tender, Non-Distended, No Hepato-splenomegaly Extremities: No clubbing, No cyanosis, Edema Skin: No rashes, No breakdown Lymphatic: No Cervical, Supraclavicular, or Inguinal Adenopathy Neurological: Cranial nerves II-XII grossly intact, Neuro grossly intact Psych/Mental Status: Normal Affect, Appropriate Laboratory Results 04/01/19 20:00: Crossmatch See Detail 04/03/19 16:45: POC Glucose 155 H 04/03/19 17:13: Hgb 9.7 L, Hct 31.1 L 04/03/19 21:02: POC Glucose 181 H 04/04/19 05:33: WBC 3.9 L, RBC 3.22 L, Hgb 9.6 L, Hct 30.6 L, MCV 95.0 D, MCH 29.8, MCHC 31.4 L, RDW Std Deviation 60.0 H, RDW Coeff of Susan 17.5 H, Plt Count 96 L, MPV 9.3, Immature Gran % (Auto) 0.300, Neut % (Auto) 50.0, Lymph % (Auto) 27.6, [place] % (Auto) 16.8 H, Eos % (Auto) 3.8, Baso % (Auto) 1.5 H, Absolute Neuts (auto) 2.0, Absolute Lymphs (auto) 1.08, Nucleated RBC % 0, Platelet Estimate MOD DEC, Hypochromasia 1+, Anisocytosis 1+ 04/04/19 05:33: Hgb Cancelled 04/04/19 05:33: Sodium 131 L, Potassium 5.2 H, Chloride 95 L, Carbon Dioxide 28.0, BUN 29 H, Creatinine 4.08 H, Estim Creat Clear Calc 10.56, Est GFR (MDRD) Af Amer 14 L, Est GFR (MDRD) Non-Af 11 L, BUN/Creatinine Ratio 7.1 L, Glucose 110 H, Calcium 7.5 L, Phosphorus 4.6, Albumin 2.3 L 04/04/19 06:30: POC Glucose 125 H 04/04/19 11:01: POC Glucose 133 H 04/04/19 11:50: Hgb 9.6 L, Hct 30.2 L Current Medications Atorvastatin Calcium (Lipitor) 80 mg PO QHS [facility] Last Admin: 04/03/19 21:57 Dose: 80 mg Documented by: Carvedilol (Coreg) 12.5 mg PO BID [facility] Last Admin: 04/03/19 21:57 Dose: 12.5 mg Documented by: Cholecalciferol (Vitamin D) 5,000 unit PO MoWeFr@1000 [facility] Last Admin: 04/02/19 10:12 Dose: 5,000 unit Documented by: Cyclobenzaprine HCl (Cyclobenzaprine Hcl) 5 mg PO BID [facility] Last Admin: 04/03/19 21:57 Dose: 5 mg Documented by: Dextrose (D50w Syringe) 0 gm IV X1 PRN; Protocol PRN Reason: Hypoglycemia [facility] Admin: 04/03/19 16:42 Dose: 100 mg Documented by: Gabapentin (Neurontin) 200 mg PO QHS [facility] Last Admin: 04/03/19 21:57 Dose: 200 mg Documented by: Glucagon () 1 mg IM .X1 PRN PRN Reason: Hypoglycemia Hydralazine HCl (Apresoline) 100 mg PO BID [facility] Last Admin: 04/03/19 21:56 Dose: 100 mg Documented by: Sodium Chloride () 500 mls @ 15 mls/hr IV PRN PRN PRN Reason: Blood Transfusion Last Infusion: 04/03/19 16:00 Dose: Infused Documented by: Sodium Chloride () 250 mls @ 15 mls/hr IV .[id number] PRN PRN Reason: Saline Flush [facility]ulin [facility] (Bkc)) [facility] Admin: 04/03/19 22:00 Dose: 11 units Documented by: Insulin Human Lispro (Humalog Kwikpen (Bkc)) 0 unit SC TIDAC [facility]; Protocol Last Admin: 04/04/19 11:08 Dose: Not Given Documented by: Isosorbide Mononitrate (Imdur) 60 mg PO QHS [facility] Last Admin: 04/03/19 21:58 Dose: 60 mg Documented by: Isosorbide Mononitrate (Imdur) 90 mg PO BREAKFAST [facility] Last Admin: 04/03/19 08:35 Dose: 90 mg Documented by: Losartan Potassium (Cozaar) 50 mg PO BID [facility] Last Admin: 04/03/19 21:56 Dose: 50 mg Documented by: Magnesium Hydroxide (Milk Of Magnesia) 30 ml PO DAILY PRN PRN PRN Reason: Constipation-no bm in 3 days Melatonin (Melatonin) 3 mg PO QHS PRN PRN PRN Reason: INSOMNIA Multivit/Ca Carb/B Cmplx/FA/Prenat (Nephrocaps, Renaphro) 1 capsule PO DAILY [facility] Last Admin: 04/03/19 08:37 Dose: 1 capsule Documented by: Nutritional Formula (Nepro Carb Steady) 120 ml PO 4X/DAY [facility] Last Admin: 04/03/19 22:04 Dose: 120 ml Documented by: Ondansetron HCl (Zofran) 4 mg IV Q8H PRN PRN PRN Reason: NAUSEA/VOMITING Oxycodone HCl (Oxyir) 5 mg PO Q4H PRN PRN PRN Reason: Pain Score 1-10/10 Last Admin: 04/04/19 08:43 Dose: 5 mg Documented by: Pantoprazole Sodium (Protonix) 40 mg PO DAILY [facility] Last Admin: 04/03/19 08:37 Dose: 40 mg Documented by: Pramipexole Dihydrochloride (Mirapex) 0.25 mg PO QHS [facility] Last Admin: 04/03/19 21:57 Dose: 0.25 mg Documented by: Promethazine HCl (Phenergan Tablet) 12.5 mg PO DAILY PRN PRN PRN Reason: NAUSEA Sevelamer Carbonate (Renvela) 2,400 mg PO TIDCM [facility] Last Admin: 04/04/19 11:07 Dose: Not Given Documented by: Sodium Chloride () 10 - 40 ml IV UD PRN PRN Reason: SALINE FLUSH Home Medications: Medications to take at Discharge Cholecalciferol (Vitamin D3) [Vitamin D3] 5,000 unit PO MOWEFR 07/27/17 pantoprazole 40 mg tablet,delayed release 40 mg PO DAILY 08/21/17 Atorvastatin Calcium [Lipitor] 80 mg PO QHS 12/26/17 Losartan Potassium [Cozaar] 50 mg PO BID 12/26/17 Carvedilol 12.5 mg PO BID 05/10/18 Insulin Lispro [Humalog] See Protocol SC TIDCM 05/10/18 Insulin Glargine [Lantus SoloStar Pen] 11 units SC QHS 05/31/18 Cyclobenzaprine HCl 5 mg PO BID 06/11/18 B Complex W-C No.20/Folic Acid [Virt-Caps Softgel] 1 mg PO UD 09/20/18 Docusate Sodium [Colace] 100 mg PO BID 02/13/19 Gabapentin [Neurontin] 100 mg PO BID 02/13/19 Gabapentin [Neurontin] 200 mg PO QHS 02/13/19 Hydralazine HCl 100 mg PO BID 02/13/19 Isosorbide Mononitrate [Imdur] 60 mg PO QHS 02/13/19 Ropinirole HCl [Requip] 0.5 mg PO QHS 02/13/19 Sevelamer Carbonate 2,400 mg PO TIDCM 02/13/19 Melatonin 3 mg PO QHS 03/14/19 Oxycodone HCl 5 mg PO BID 03/14/19 Aspirin E.C. [Ecotrin] 81 mg PO DAILY@0800 #1 03/18/19 Isosorbide Mononitrate [Imdur] 90 mg PO DAILY 04/01/19 Oxycodone HCl 5 mg PO Q6H PRN PRN 04/01/19 Primary Care Physician: Davy Coleman MD [STAFF PHYSICIAN] - Please follow up with your Primary Care Physician in: 1-2 weeks. Please Follow Up With: Diogo Tee MD When: this coming week. Please Follow Up With: Anuradha Crawley DO When: please call her office. Disposition: Half-Way facility Minutes spent on discharge:: 32 Patient Condition:: Stable Medical Necessity - Tobacco Use Smoking Status: Former smoker Tobacco Use: Non-smoker Meaningful Use Info Meaningful Use Diagnoses (Choose all that apply): None applicable Code Visit Inpatient E&M: 66777 Disch Hosp
--- NOTE | 2019-04-04 13:58 | CASEMGMT ---
MARGO called [facility] and spoke with Felipe as Lynda and Candelaria were out of the office. MARGO asked if they received pre-cert as patient is ready to return. Felipe said she would have to find out and let MARGO know. Await return call. Marylou RAMIREZ MSW
[2019-04-04] MEDS: Isosorbide Mononitrate 30 MG Tablet 90 MG PO (14:51)
--- NOTE | 2019-04-04 14:51 | CASEMGMT ---
SW received return call from Lynda rose [place]. She said patient does not need a pre-cert she is a bed hold. SW told her she will be returning today. SW faxed orders as well as some updated information. SW spoke with patient and she said she could have her sister transport her back. She is coming from [place]. MARGO notified Lynda rose [place] of this plan. MARGO also notified medical secretary teacher. Attempted to notify RN, but she was not available via phone. MARGO will try again. Plan: d/c back to [place] under skilled level of care. Family transported patient via private vehicle. Marylou RAMIREZ TREASURY ACCOUNTANT
[2019-04-04] MEDS: hydrALAZINE 50 MG Tablet 100 MG PO (14:52)
[2019-04-04] MEDS: Gabapentin 100 MG Capsule PO (14:52)
[2019-04-04] MEDS: Carvedilol 12.5 MG Tablet PO (14:52)
[2019-04-04] MEDS: Folic Acid/Vitamin B Comp W-C 1 Capsule 1 CAP PO (14:53)
[2019-04-04] MEDS: cycloBENZAPRine HCl 5 MG TABLET PO (14:53)
[2019-04-04] MEDS: Losartan Potassium 50 MG Tablet PO (14:53)
[2019-04-04] MEDS: Pantoprazole Sodium 40 MG Tablet PO (14:54)
[2019-04-04] MEDS: SEVELAMER CARBONATE 800 MG TABLET 2400 MG PO (14:55)
[2019-04-04] MEDS: Nepro Liquid 120 ML LIQUID PO (15:43)
== END 2019-04-04 16:24 | disposition skilled nursing facility (03) | DRG 377 ==
LOC: ED 20:51 → PCU 21:54
PROVIDERS: Anesthesiology; Internal Medicine Nephrology; Surgery; Emergency Provider Emergency Medicine; Family Provider Family Medicine; PCP Family Medicine; Visit Provider Hospitalist
PROC: 0DJD8ZZ Inspection of Lower Intestinal Tract, Via Natural or Artificial Opening Endoscopic (ICD-10-PCS; CPT 45378; principal; 2019-04-03 06:25)
DX: K92.2 Gastrointestinal hemorrhage, unspecified (principal); N18.6 End stage renal disease; I12.0 Hypertensive chronic kidney disease with stage 5 chronic kidney disease or end stage renal disease; R18.8 Other ascites; D62 Acute posthemorrhagic anemia; D63.1 Anemia in chronic kidney disease; E11.22 Type 2 diabetes mellitus with diabetic chronic kidney disease; Z99.2 Dependence on renal dialysis; K74.60 Unspecified cirrhosis of liver; I25.10 Atherosclerotic heart disease of native coronary artery without angina pectoris; E78.5 Hyperlipidemia, unspecified; E03.9 Hypothyroidism, unspecified; K29.70 Gastritis, unspecified, without bleeding; K57.30 Diverticulosis of large intestine without perforation or abscess without bleeding; G89.29 Other chronic pain; M54.5 Low back pain; I48.91 Unspecified atrial fibrillation; Z79.4 Long term (current) use of insulin; I25.2 Old myocardial infarction; Z95.5 Presence of coronary angioplasty implant and graft
CPT/HCPCS: 36415; 78278; 80048; 80069; 82962; 83036; 83605; 85014; 85018; 85025; 85027; 85610; 85730; 86850; 86900; 86901; 86920; 86922; 88305; 88342; 90937; 93005; 97162; 97166; 97530; 99285; A9560; J7030; J7040; J7120; P9016; A4216; G0257; J2405

== ENCOUNTER 2019-04-05 20:27 | Observation (INO) | payer MEDICARE, SELFPAY ==
[2018-06-11 11:00] VITALS: BMI 27.1
[2019-04-03 06:14] VITALS: BMI 33.5
[2019-04-05 20:28] VITALS: BP 181/66; PULSE 77; RESP 14; TEMP 36.7; O2SAT 99; BMI 35.5
--- NOTE | 2019-04-05 20:44 | ED.VISSUMM ---
- ER Visit Summary Date of Service: 04/05/19 Chief Complaint: [Blood in stool] History of Present Illness: The patient is a 74 F [resents to the emergency department with complaint of blood in her stool since 6 PM. Patient had about 3 episodes. Patient states she is also passing some small clots. She denies any abdominal pain. She denies any fever. Patient was just discharged from this hospital last evening after being admitted for GI bleeding. Patient states that at one point her hemoglobin had dropped to 6 and she received 5 units of blood. Patient states that she was seen by the general surgeon Dr. Sinclair and had an EGD as well as a colonoscopy. Patient also had a bleeding scan and etiology of the bleeding was uncertain. Patient is a diabetic and chronic renal disease patient on dialysis. Patient normally on Plavix and aspirin but that was discontinued several weeks ago.] Physical Examination: [HEENT-PERRLA, EOMI. Cranial nerves II through XII grossly intact. TMs clear. Mucous membranes moist. No adenopathy. Cardiovascular-regular rate and rhythm with a 2 out of 6 systolic ejection murmur noted. Lungs-clear to auscultation, chest wall stable without crepitus or subcu emphysema Abdomen-normoactive bowel sounds, soft, nontender, no rebound or rigidity, no peritoneal signs. Extremities-intact ?4, normal range of motion, normal pulses, atraumatic] Test Results: [CBC with differential obtained for white count 3.5, hemoglobin 10.4, hematocrit 33, platelets 97. Chemistry showed a sodium 127, potassium 4.9, chloride 94, CO2 26. Glucose was 130. BUN 24 creatinine 3.86. Lactate pending.] Screen ordered. Emergency Department Course and Treatment: [Patient had an IV line established and she was ordered normal saline.] This was discussed with general surgeon on-call Dr. Tomeka Garcia who will consult on the case. Will be discussed with hospitalist to evaluate patient for admission Treatment Plan: [Admit] Disposition: [Admit] Impression: [Lower GI bleed] This note was generated with [employer] dictation software. It may contain incorrect words, spelling, and punctuation that were not noted in review of the chart prior to signing ED Disposition - Plan for ED Patient: Referrals: Walter Chao MD [Primary Care Provider] -
[2019-04-05 21:09] LABS: Absolute Lymphocyte Count 1.08 X10^3/uL (0.83-4.51); Absolute Neutrophil Count 1.7 X10^3/uL (2.0-7.7); Basophil# 0.04 X10^3/uL; Basophil% 1.1 % (0-1); Eosinophil# 0.17 X10^3/uL; Eosinophils% 4.9 % (0-5); Hemoglobin 10.4 g/dL (12.0-15.0); Lymphocyte # 1.08 X10^3/ul (4.0); Mean Corp Hgb Conc 31.5 g/dL (32-36); Mean Corpuscular Hgb 30.1 pg (27.0-32.0); Mean Corpuscular Volume 95.4 fL (81-99); Mean Platelet Vol. 9.8 fl (6.2-12.0); Monocyte# 0.53 X10^3/uL; Monocyte% 15.2 % (0-10); NRBC Flagged by Analyzer 0 % (0-5); Neutrophil # 1.65 X10^3/uL (2.7-7.7); Neutrophil % 47.5 % (47-70); POSITIVE COUNT YES; Platelet Count 97 K/mm3 (150-450); RBC Distribution Width CV 17.3 % (11.6-14.6); RBC Distribution Width SD 59.4 fl (35.1-43.9); Red Blood Count 3.46 M/mm3 (4.2-5.4); White Blood Count 3.5 K/mm3 (4.4-11.0)
[2019-04-05 21:11] LABS: Differential Indicated SCAN CRITERIA MET
[2019-04-05 21:20] LABS: Anion Gap 7 (5-15); BUN 24 mg/dL (7-18); BUN/Creat Ratio 6.2 RATIO (10-20); Calcium,Total 8.1 mg/dL (8.5-10.1); Chloride 94 mmol/L (98-107); Creatinine, Serum 3.86 mg/dL (0.55-1.02); EST Glomerular Filtration Rate 12 mL/min (>60); Est Glom Filt Rate - Afr Amer 15 mL/min (>60); Estimated Creatinine Clearance 11.16 ml/min; Glucose 130 mg/dL (74-106); Potassium 4.9 mmol/L (3.5-5.1); Sodium Level 127 mmol/L (136-145)
[2019-04-05] MEDS: 0.9% Normal Saline 1,000 ML 125 ML IV (21:26)
[2019-04-05 21:32] LABS: Platelet Estimate MOD DEC (ADEQ)
[2019-04-05 21:33] LABS: Anisocytosis RARE; Macrocytosis RARE; Red Cell Morphology N CHROM NORMAL (NORM C&C)
--- NOTE | 2019-04-05 21:51 | HP.PCM_ITS ---
Problem List (1) GI bleed Status: Acute Qualifiers: GI bleed type/associated pathology: diverticulosis Qualified Code(s): K57.91 - Diverticulosis of intestine, part unspecified, without perforation or abscess with bleeding History of Present Illness Date of Admission: 04/05/19 Chief Complaint: BRBPR The patient is a 74 year old F who is just sent home from the hospital yesterday. Patient was admitted from to the for a GI bleed. Patient underwent a bleeding scan that was normal, colonoscopy and EGD that showed no obvious bleeding. Patient was noted to have diffuse moderate inflammation within the stomach. She was found to have blood in the entire colon with diverticulosis. She was transfused 5 units of packed red blood cells during that admission. Discharge hemoglobin was 9.6 and today is 10.4. Patient has slight abdominal discomfort. Otherwise feeling well. She had blood in the toilet and was passing blood clots. This is similar to her presentation earlier this week. [] Past Medical History Past Medical History (Chronic Problems): Chronic Problems (Last Reviewed 04/01/19 @ 21:33 by Chaim Jauregui DO) Chronic renal failure (Chronic) History of GI bleed (Chronic) History of non-ST elevation myocardial infarction (NSTEMI) (Chronic 07/05/16) Atherosclerotic heart disease of [place] coronary artery without angina pectoris (Chronic) Stented coronary artery (Chronic) Cutting Balloon and TAMI (3.0X18 mm Xience) Proximal LAD 04/18/2012; Rotational atherectomy to proximal, id and distal RCA with two overlapping 4.0 X 38 Synergy TAMI ([facility] main) Ascites (Chronic) Pancytopenia (Chronic) Other specified peripheral vascular diseases (Chronic) Afib (Chronic) Congenital coronary artery anomaly (Chronic) Bradycardia (Chronic) CAD (coronary artery disease) (Chronic) Diabetes mellitus, type II (Chronic) Hyperlipidemia (Chronic) Hypothyroidism (Chronic) Anemia in chronic kidney disease (Chronic) Hypertension (Chronic) End stage renal disease on dialysis (Chronic) Medical History: Medical History (Last Reviewed 04/05/19 @ 21:54 by Chaim Jauregui DO) History of GI bleed (Chronic) Z87.19 History of non-ST elevation myocardial infarction (NSTEMI) (Chronic) Onset Date: 07/05/16 I25.2 Atherosclerotic heart disease of [place] coronary artery without angina pectoris (Chronic) I25.10 Ascites (Chronic) R18.8 Pancytopenia (Chronic) D61.818 Other specified peripheral vascular diseases (Chronic) I73.89 Afib (Chronic) I48.91 Congenital coronary artery anomaly (Chronic) Q24.5 Bradycardia (Chronic) R00.1 CAD (coronary artery disease) (Chronic) I25.10 Diabetes mellitus, type II (Chronic) E11.9 Hyperlipidemia (Chronic) E78.5 Hypothyroidism (Chronic) E03.9 Anemia in chronic kidney disease (Chronic) N18.9, D63.1 Hypertension (Chronic) I10 End stage renal disease on dialysis (Chronic) N18.6, 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 History of hysterectomy Z90.710 Skin cancer C44.90 mouth/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, 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 Allergies lisinopril Allergy (Severe, Verified 04/05/19 20:27) Angioedema nebivolol HCl [From Bystolic] Adverse Reaction (Severe, Verified 04/05/19 20:27) bradycardia BRADYCARDIA Home Medications: Ambulatory Orders Medication Instructions Recorded Cholecalciferol (Vitamin D3) 5,000 unit PO MOWEFR 07/27/17 [Vitamin D3] pantoprazole 40 mg tablet,delayed 40 mg PO DAILY 08/21/17 release Atorvastatin Calcium [Lipitor] 80 mg PO QHS 12/26/17 Losartan Potassium [Cozaar] 50 mg PO BID 12/26/17 Carvedilol 12.5 mg PO BID 05/10/18 Insulin Lispro [Humalog] See Protocol SC TIDCM 05/10/18 Insulin Glargine [Lantus SoloStar 11 units SC QHS 05/31/18 Pen] Cyclobenzaprine HCl 5 mg PO BID 06/11/18 B Complex W-C No.20/Folic Acid 1 mg PO UD 09/20/18 [Virt-Caps Softgel] Docusate Sodium [Colace] 100 mg PO BID 02/13/19 Gabapentin [Neurontin] 100 mg PO BID 02/13/19 Gabapentin [Neurontin] 200 mg PO QHS 02/13/19 Hydralazine HCl 100 mg PO BID 02/13/19 Isosorbide Mononitrate [Imdur] 60 mg PO QHS 02/13/19 Ropinirole HCl [Requip] 0.5 mg PO QHS 02/13/19 Sevelamer Carbonate 2,400 mg PO TIDCM 02/13/19 Melatonin 3 mg PO QHS 03/14/19 Oxycodone HCl 5 mg PO BID 03/14/19 Aspirin E.C. [Ecotrin] 81 mg PO DAILY@0800 #1 03/18/19 Isosorbide Mononitrate [Imdur] 90 mg PO DAILY 04/01/19 Oxycodone HCl 5 mg PO Q6H PRN PRN 04/01/19 Surgical History: Surgical History (Last Reviewed 04/05/19 @ 21:55 by Chaim Jauregui DO) Stented coronary artery (Chronic) Z95.5 Cutting Balloon and TAMI (3.0X18 mm Xience) Proximal LAD 04/18/2012; Rotational atherectomy to proximal, id and distal RCA with two overlapping 4.0 X 38 Synergy TAMI ([facility] main) History of back surgery Z98.890 LATE 70'S History of colectomy Z90.49 History of laparoscopic cholecystectomy Z90.49 History of total right knee replacement Z96.651 Hx of foot surgery Z98.890 S/P left rotator cuff repair Z98.890 history left A-V fistula Surgical History: appendectomy, cholecystectomy, hysterectomy, total knee arthroplasty, - - Left upper extremity fistula, back surgery, colon resection with history of diverticulitis, GI bleed, right knee surgery, right total knee replacement, right foot surgery, left knee surgery, left foot surgery, PCI. 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 Smoking Status: Former smoker - *Family History Maternal Family History: Family History (Last Reviewed 04/05/19 @ 21:55 by Chaim Jauregui DO) Sister Diabetes Heart disease Hypertension Anemia History Items: Cancer - uterine Paternal Family History: Family History (Last Reviewed 04/05/19 @ 21:55 by Chaim Jauregui DO) Sister Diabetes Heart disease Hypertension Anemia History Items: Cancer Sibling Family History: Family History (Last Reviewed 04/05/19 @ 21:55 by Chaim Jauregui DO) Sister Diabetes Heart disease Hypertension Anemia History Items: Diabetes Review of Systems Constitutional: Denies: Anorexia, Chills, Fever Eyes: Denies: Blurred vision, Double vision HEENT: Denies: Head Aches, Sinus Congestion, Sinus Drainage Cardiovascular: Reports: Edema - Unchanged. Denies: Chest Pain, Palpitations Respiratory: Reports: Cough. Denies: Shortness of Breath Gastrointestinal: Reports: Abdominal Pain, Hematochezia. Denies: Hematemesis, Melena Genitourinary: Reports: - - Anuric Musculoskeletal: Denies: Joint Pain, Joint Tenderness Skin: Denies: Rash, Wounds Neurological: Denies: Numbness, Tingling, Focal weakness Psychiatric: Denies: Anxiety, Depression Hematologic/ Lymphatic: Reports: Easy Bleeding Comment: Review of systems are otherwise negative except for as mentioned above and in HPI. VTE Information - Inpt Only VTE Present on Admission: No VTE Mechan Device Prophylaxis: None VTE Pharm Prophylaxis ordered?: No Reason prophylaxis not ordered:: Procedure Not Indicated - Physical Exam Vitals/I&O's: Vital Signs Temp Pulse Resp BP Pulse Ox 36.7 C 77 14 181/66 H 99 04/05/19 20:28 04/05/19 20:28 04/05/19 20:28 04/05/19 20:28 04/05/19 20:28 Oxygen Delivery Method Room Air Weight: 96.9 kg Body Mass Index (BMI) 35.5 Finger Stick Blood Glucose 99 General: Alert, Cooperative, No apparent distress HEENT: Atraumatic, Normocephalic Oral: Moist Mucosa, No Gingival or Mucosal Lesions/ Ulcerations Neck: No Nodes, Trachea Midline Lungs: Clear to auscultation, Normal air movement, No rhonchi, No wheeze Cardiovascular: Regular rate, Regular Rhythm, - - 2 out of 6 holosystolic murmur at the apex Abdomen: Bowel Sounds Present, Soft, Distended - Not taut, Tender - Diffuse and mild Extremities: No Calf Tenderness, Edema Skin: - - Venous stasis dermatitis on the lower extremities Musculoskeletal: No Tenderness to Palpation of Joints or Extremities, Cachexia Neurological: Deep Tendon Reflexes 2+/4 and Symmetrical, Sensory exam intact to light touch and pain Psych/Mental Status: Normal Affect, Appropriate Laboratory Results 04/05/19 20:55: WBC 3.5 L, RBC 3.46 L, Hgb 10.4 L, Hct 33.0 L, MCV 95.4, MCH 30.1, MCHC 31.5 L, RDW Std Deviation 59.4 H, RDW Coeff of Susan 17.3 H, Plt Count 97 L, MPV 9.8, Immature Gran % (Auto) 0.300, Neut % (Auto) 47.5, Lymph % (Auto) 31.0, Millard % (Auto) 15.2 H, Eos % (Auto) 4.9, Baso % (Auto) 1.1 H, Absolute Neuts (auto) 1.7 L, Absolute Lymphs (auto) 1.08, Nucleated RBC % 0, Platelet Estimate MOD DEC, RBC Morphology N CHROM, Anisocytosis RARE, Macrocytosis RARE 04/05/19 20:55: Sodium 127 L, Potassium 4.9, Chloride 94 L, Carbon Dioxide 26.0, Anion Gap 7, BUN 24 H, Creatinine 3.86 H, Estim Creat Clear Calc 11.16, Est GFR (MDRD) Af Amer 15 L, Est GFR (MDRD) Non-Af 12 L, BUN/Creatinine Ratio 6.2 L, Glucose 130 H, Calcium 8.1 L 04/05/19 21:05: Lactic Acid Pending 04/05/19 21:05: Blood Type Pending, Antibody Screen Pending Current Medications Sodium Chloride () 1,000 mls @ 125 mls/hr IV .Q8H FARZANA Last Admin: 04/05/19 21:26 Dose: 125 mls/hr Documented by: Assessment/Plan All Active Problems (Last Reviewed 04/01/19 @ 21:33 by Chaim Jauregui DO) GI bleed (Acute) Anemia due to acute blood loss (Acute) 1. GI bleed lower * Likely diverticular in origin * Source of bleeding could be identified on the last hospitalization * Discussed with Dr. Garcia, will be available on consult. No imminent plans for endoscopy at this point time * clear liquid diet for now 2. Anemia * Hemoglobin is actually up from when she was here last time * No indication to transfuse currently * Monitor hemoglobin every 6 hours for the next day * Transfuse if hemoglobin around 7 or below 3. 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 Diabetes mellitus type II * Continue basal and sliding scale insulin 5. VTE prophylaxis: Patient being brought under observation status and monitore d. Therefore, low risk and no VTE prophylaxis indicated at this time. If hospitalization may be prolonged, then would recommend SCDs. 6. Advanced care planning: Discussed with the patient. Patient wishes to be full CODE STATUS. Code Visit OBSV E&M: 45588 Initial observation care L3
[2019-04-05 22:01] LABS: Lactic Acid 1.4 mmol/L (0.4-2.0)
[2019-04-05 22:30] VITALS: BP 179/73; PULSE 79; RESP 18; TEMP 36.5; O2SAT 100; BMI 34.3
[2019-04-05 22:36] VITALS: BMI 34.4
--- NOTE | 2019-04-05 22:53 | ED.RN ---
CALLED [facility] AND UPDATED HERB RN THAT PATIENT WAS ADMITTED TO PCU ROOM 115
[2019-04-05 23:13] VITALS: PULSE 79
[2019-04-05] MEDS: Carvedilol 12.5 MG Tablet PO (23:13)
[2019-04-05] MEDS: hydrALAZINE 50 MG Tablet 100 MG PO (23:13)
[2019-04-05] MEDS: cycloBENZAPRine HCl 5 MG TABLET PO (23:13)
[2019-04-05] MEDS: Losartan Potassium 50 MG Tablet PO (23:13)
[2019-04-05] MEDS: oxyCODONE 5 MG Tablet PO (23:14)
[2019-04-05] MEDS: Isosorbide Mononitrate 60 MG Tablet PO (23:14)
[2019-04-05] MEDS: Atorvastatin Calcium 80 MG Tablet PO (23:14)
[2019-04-05] MEDS: Gabapentin 100 MG Capsule 200 MG PO (23:14)
[2019-04-05] MEDS: Pramipexole Di-HCl 0.25 MG Tablet PO (23:14)
[2019-04-05] MEDS: MELATONIN 3 MG TABLET PO (23:14)
[2019-04-05] MEDS: 0.9% Saline Lock 10 ML Syringe IV (23:15)
[2019-04-05 23:46] LABS: Bedside Glucose 104 mg/dL (70-110)
[2019-04-06] VITALS (7 sets, daily range): BP systolic 111–145; BP diastolic 44–74; PULSE 64–82; RESP 17–20; TEMP 36.4–37.7; O2SAT 94–98
[2019-04-06 03:32] LABS: Absolute Lymphocyte Count 1.17 X10^3/uL (0.83-4.51); Absolute Neutrophil Count 1.7 X10^3/uL (2.0-7.7); Basophil# 0.04 X10^3/uL; Basophil% 1.1 % (0-1); Eosinophil# 0.16 X10^3/uL; Eosinophils% 4.6 % (0-5); Hematocrit 29.3 % (37-47); Hemoglobin 9.3 g/dL (12.0-15.0); Lymphocyte # 1.17 X10^3/ul (4.0); Lymphocyte % 33.5 % (19-41); Mean Corp Hgb Conc 31.7 g/dL (32-36); Mean Corpuscular Hgb 30.5 pg (27.0-32.0); Mean Corpuscular Volume 96.1 fL (81-99); Monocyte# 0.46 X10^3/uL; Monocyte% 13.2 % (0-10); NRBC Flagged by Analyzer 0 % (0-5); Neutrophil # 1.65 X10^3/uL (2.7-7.7); Neutrophil % 47.3 % (47-70); POSITIVE COUNT YES; Platelet Count 86 K/mm3 (150-450); RBC Distribution Width CV 17.3 % (11.6-14.6); RBC Distribution Width SD 59.7 fl (35.1-43.9); Red Blood Count 3.05 M/mm3 (4.2-5.4); White Blood Count 3.5 K/mm3 (4.4-11.0)
[2019-04-06 03:46] LABS: Anion Gap 9 (5-15); BUN 26 mg/dL (7-18); BUN/Creat Ratio 6.5 RATIO (10-20); Calcium,Total 7.6 mg/dL (8.5-10.1); Chloride 92 mmol/L (98-107); Creatinine, Serum 4.01 mg/dL (0.55-1.02); EST Glomerular Filtration Rate 12 mL/min (>60); Est Glom Filt Rate - Afr Amer 14 mL/min (>60); Estimated Creatinine Clearance 10.74 ml/min; Glucose 97 mg/dL (74-106); Potassium 4.9 mmol/L (3.5-5.1); Sodium Level 130 mmol/L (136-145)
[2019-04-06] MEDS: Gabapentin 100 MG Capsule PO ×2 (05:26→14:27)
[2019-04-06 08:36] LABS: Bedside Glucose 74 mg/dL (70-110)
[2019-04-06 08:55] LABS: Absolute Lymphocyte Count 1.34 X10^3/uL (0.83-4.51); Absolute Neutrophil Count 1.4 X10^3/uL (2.0-7.7); Basophil# 0.05 X10^3/uL; Basophil% 1.4 % (0-1); Eosinophil# 0.21 X10^3/uL; Hematocrit 30.1 % (37-47); Hemoglobin 9.6 g/dL (12.0-15.0); Lymphocyte # 1.34 X10^3/ul (4.0); Lymphocyte % 38.2 % (19-41); Mean Corp Hgb Conc 31.9 g/dL (32-36); Mean Corpuscular Hgb 30.1 pg (27.0-32.0); Mean Corpuscular Volume 94.4 fL (81-99); Mean Platelet Vol. 9.3 fl (6.2-12.0); Monocyte# 0.49 X10^3/uL; NRBC Flagged by Analyzer 0 % (0-5); Neutrophil # 1.41 X10^3/uL (2.7-7.7); Neutrophil % 40.1 % (47-70); POSITIVE COUNT YES; Platelet Count 86 K/mm3 (150-450); RBC Distribution Width CV 17.1 % (11.6-14.6); RBC Distribution Width SD 58.1 fl (35.1-43.9); Red Blood Count 3.19 M/mm3 (4.2-5.4); White Blood Count 3.5 K/mm3 (4.4-11.0)
--- NOTE | 2019-04-06 09:34 | PCM.CONS.B ---
- Consult Date of Consult: 04/06/19 - Reason for Consult Chief Complaint: rectal bleeding History of Present Illness: 74 y/o WF well known to me who is admitted for rectal bleeding. She had been discharge just a few days previously for same diagnosis. In her last admission, Dr. Tee had done upper and lower endoscopy and no site of bleeding was identified. Complaint of abdominal soreness - undergoes monthly paracentesis for chronic ascites by Dr. Mckay - is due for this now. Has had multiple episode of bright red blood per rectum. She noted that the toilet bowl water was full of blood. She is on plavix for placement of coronary artery stents. Hgb upon admission was 10.4, with hydration over night it is 9.6 Noted to have pandiverticulosis by previous colonoscopy Patient has had multiple admissions this past year. Past Medical History: Hypertension SETH Coronary artery disease with stent placements Anemia of chronic disease Pulmonary hypertension Renal failure on dialysis Liver cirrhosis, probably due to PATEL - requiring paracentesis on a regular basis, pending hepatology consultation Past Surgical History: hysterectomy - ALBIN/SO, appendectomy hemorrhoidectomy colon resection for diverticulitis AV fistula - left arm and revision Portacath placement Right knee replacement Left knee surgery right foot surgeries Left foot bunion surgery Lumbar diskectomy Left shoulder surgery Skin cancer removal of lip Cataract surgery ? Medications: insulin detemir U-100 (LEVEMIR FLEXTOUCH U-100 INSULN) 100 unit/mL (3 mL) inpn injection insulin 50/50 lispro protamine/lispro units/mL (HUMALOG MIX 50-50 KWIKPEN) 100 unit/mL (50-50) inpn clopidogrel (PLAVIX) 75 mg tablet rOPINIRole (REQUIP) 0.5 mg tablet carvedilol (COREG) 12.5 mg tablet cyclobenzaprine (FLEXERIL) 5 mg tablet gabapentin (NEURONTIN) 100 mg capsule?() promethazine (PHENERGAN) 12.5 mg tablet sevelamer carbonate (RENVELA) 800 mg tablet lactulose (CONSTULOSE) 10 gram/15 mL solution losartan (COZAAR) 50 mg tablet isosorbide dinitrate (ISORDIL) 10 mg tablet nitroglycerin sublingual (NITROQUICK) 0.4 mg SL tablet atorvastatin (LIPITOR) 80 mg tablet aspirin 81 mg chewable tablet Calcium Citrate-Vitamin D3 500 mg calcium -400 unit chew hydrALAZINE (APRESOLINE) 100 mg tablet pantoprazole (PROTONIX) 40 mg tablet docusate sodium (COLACE) 100 mg capsule b complex, c, folic acid 1 mg renal vitamins (NEPHROCAPS) 1 mg capsule Allergies: lisinopril, nebivolol Social history: TOB use denies resident of halfway Review of Systems: EyesNegative for vision changes, diplopia or epiphora. Ears, Mouth, nose, throat:No problems Cardiovascular: SHORTNESS OF BREATH WITH EXERTION Respiratory: Negative for cough, wheezing and shortness of breath Gastrointestinal : rectal bleeding as above, constipation, ascites/liver cirrhosis Genitourinary: ESRD Musuloskeletal: multiple area of joint pain, can walk only short distances with a walker Integumentary: no rashes, lesions, or jaundice Neurological: No history of neurologic problems Endocrine: Negative for cold or heat intolerance, polyuria, polydipsia and goiter. Psychiatric: Cooperative and agreeable Allergic/ Immunologic: Negative Physical examination: Vital signs Temp 98.1F HR 67 BP 114/44 RR 18 General WD/WN WF in no apparent distress, alert and oriented, not septic appearing HEENT Normocephalic. EOM intact with sclera clear and no icterus noted. Neck is supple with no jugular venous distention noted. Trachea is midline. Lungs normal breath sounds. No rales/rhonchi/wheezing noted. No labored breathing noted, such as retractions. No cough heard. Heart normal heart sounds. No rubs/clicks/murmurs noted. . Abdomen soft and benign and protuberant. Normal bowel sounds. Cannot determine if any masses due to body habitus Extremities no calf tenderness noted. bilateral dependent swelling of lower extremities Genitourinary/Rectal deferred Skin normal skin integrity. Neurological non focal. Psychological normal affect, patient is calm and appropriate Impression: rectal bleeding Discussion/Plan: I have discussed the above with the patient. This may be due to diverticular bleeding. However, given that she has pandiverticulosis, a specific area of colon to consider for resection cannot be determined. Also, patient has multiple severe medical morbidities for which any surgical option would have high risk for morbidity and mortality. Patient understands this and she states that she does not want surgery. Unfortunately, we are limited in this hospital with what we can offer patient and I have recommended evaluation at a larger medical facility. Patient does not want to go to [place], but she is OK with [facility]. Will discussed with specialists at [facility] on Sunday. Will follow patient while she hospitalized here - If continued bloody bowel movements or continued decrease in hgb, will consider endoscopy. If patient requires any surgery, she will have to be transferred to a larger medical center due to her multiple medical morbidities. I have answered all questions to the patient?s satisfaction and the patient has no further questions.
--- NOTE | 2019-04-06 09:35 | PN_ITS ---
Subjective: Chief complaint: Follow-up after admission for GI bleed. Patient seen and examined. No acute events overnight. She mentioned that she had 2 bloody bowel movement after admission and she had 4 bloody bowel movement at the [facility]. She reported intermittent dizziness, no chest pain or shortness of breath. Denied abdominal pain, reported abdominal soreness. Her vital signs are stable. - Physical Exam Vitals/I&O's: Vital Signs Temp Pulse Resp BP Pulse Ox 98.1 F 67 18 114/44 L 95 04/06/19 04:30 04/06/19 04:30 04/06/19 04:30 04/06/19 04:30 04/06/19 04:30 Oxygen Delivery Method Room Air Weight: 206 lb 9.17 oz Body Mass Index (BMI) 34.3 Finger Stick Blood Glucose 99 Intake and Output for Last 24 Hours 04/04/19 04/05/19 04/06/19 23:59 23:59 23:59 Intake Total 290.83 / 290.83 120 / 120 Balance 290.83 / 290.83 120 / 120 General: Alert, Oriented x3, Cooperative, No apparent distress HEENT: Atraumatic, PERRLA, EOMI, Normocephalic Oral: Moist Mucosa, No Gingival or Mucosal Lesions/ Ulcerations Neck: Supple, No JVD, Negative Carotid Bruits, Trachea Midline, Thyroid Normal Size and Texture Lungs: Clear to auscultation, Normal air movement, No wheeze, No rales, Diminished, Rhonchi Cardiovascular: Regular rate, Regular Rhythm, Normal S1, Normal S2, PMI Normal Abdomen: Bowel Sounds Present, Soft, Non Tender, No Hepato-splenomegaly, Distended Extremities: No clubbing, No cyanosis, Edema Skin: No rashes, No breakdown Lymphatic: No Cervical, Supraclavicular, or Inguinal Adenopathy Neurological: Cranial nerves II-XII grossly intact, Neuro grossly intact Psych/Mental Status: Normal Affect, Appropriate Laboratory Results 04/05/19 20:55: WBC 3.5 L, RBC 3.46 L, Hgb 10.4 L, Hct 33.0 L, MCV 95.4, MCH 30.1, MCHC 31.5 L, RDW Std Deviation 59.4 H, RDW Coeff of Susan 17.3 H, Plt Count 97 L, MPV 9.8, Immature Gran % (Auto) 0.300, Neut % (Auto) 47.5, Lymph % (Auto) 31.0, Terry % (Auto) 15.2 H, Eos % (Auto) 4.9, Baso % (Auto) 1.1 H, Absolute Neuts (auto) 1.7 L, Absolute Lymphs (auto) 1.08, Nucleated RBC % 0, Platelet Estimate MOD DEC, RBC Morphology N CHROM, Anisocytosis RARE, Macrocytosis RARE 04/05/19 20:55: Sodium 127 L, Potassium 4.9, Chloride 94 L, Carbon Dioxide 26.0, Anion Gap 7, BUN 24 H, Creatinine 3.86 H, Estim Creat Clear Calc 11.16, Est GFR (MDRD) Af Amer 15 L, Est GFR (MDRD) Non-Af 12 L, BUN/Creatinine Ratio 6.2 L, Glucose 130 H, Calcium 8.1 L 04/05/19 21:05: Lactic Acid 1.4 04/05/19 21:05: Blood Type O NEGATIVE, Antibody Screen NEGATIVE 04/05/19 23:21: POC Glucose 104 04/06/19 03:12: Sodium 130 L, Potassium 4.9, Chloride 92 L, Carbon Dioxide 29.0, Anion Gap 9, BUN 26 H, Creatinine 4.01 H, Estim Creat Clear Calc 10.74, Est GFR (MDRD) Af Amer 14 L, Est GFR (MDRD) Non-Af 12 L, BUN/Creatinine Ratio 6.5 L, Glucose 97, Calcium 7.6 L 04/06/19 03:12: WBC 3.5 L, RBC 3.05 L, Hgb 9.3 L, Hct 29.3 L, MCV 96.1, MCH 30.5, MCHC 31.7 L, RDW Std Deviation 59.7 H, RDW Coeff of Susan 17.3 H, Plt Count 86 L, MPV 9.0, Immature Gran % (Auto) 0.300, Neut % (Auto) 47.3, Lymph % (Auto) 33.5, Terry % (Auto) 13.2 H, Eos % (Auto) 4.6, Baso % (Auto) 1.1 H, Absolute Neuts (auto) 1.7 L, Absolute Lymphs (auto) 1.17, Nucleated RBC % 0 04/06/19 08:18: POC Glucose 74 04/06/19 08:45: WBC 3.5 L, RBC 3.19 L, Hgb 9.6 L, Hct 30.1 L, MCV 94.4, MCH 30.1, MCHC 31.9 L, RDW Std Deviation 58.1 H, RDW Coeff of Susan 17.1 H, Plt Count 86 L, MPV 9.3, Immature Gran % (Auto) 0.300, Neut % (Auto) 40.1 L, Lymph % (Auto) 38.2, Terry % (Auto) 14.0 H, Eos % (Auto) 6.0 H, Baso % (Auto) 1.4 H, Absolute Neuts (auto) 1.4 L, Absolute Lymphs (auto) 1.34, Nucleated RBC % 0 Current Medications Acetaminophen (Tylenol) 650 mg PO Q6H PRN PRN PRN Reason: Pain Score 1-3/Temp > 100.7 F Atorvastatin Calcium (Lipitor) 80 mg PO QHS [facility] Last Admin: 04/05/19 23:14 Dose: 80 mg Documented by: Carvedilol (Coreg) 12.5 mg PO BID [facility] Last Admin: 04/05/19 23:13 Dose: 12.5 mg Documented by: Cholecalciferol (Vitamin D) 5,000 unit PO MoWeFr@1000 [facility] Cyclobenzaprine HCl (Cyclobenzaprine Hcl) 5 mg PO BID [facility] Last Admin: 04/05/19 23:13 Dose: 5 mg Documented by: Dextrose (D50w Syringe) 0 gm IV X1 PRN; Protocol PRN Reason: Hypoglycemia Docusate Sodium (Colace) 100 mg PO BID [facility] Last Admin: 04/05/19 23:06 Dose: Not Given Documented by: Gabapentin (Neurontin) 100 mg PO BID@0600,1400 [facility] Last Admin: 04/06/19 05:26 Dose: 100 mg Documented by: Gabapentin (Neurontin) 200 mg PO QHS [facility] Last Admin: 04/05/19 23:14 Dose: 200 mg Documented by: Glucagon () 1 mg IM .X1 PRN PRN Reason: Hypoglycemia Hydralazine HCl (Apresoline) 100 mg PO BID [facility] Last Admin: 04/05/19 23:13 Dose: 100 mg Documented by: Sodium Chloride () 250 mls @ 15 mls/hr IV .[id number] PRN PRN Reason: Saline Flush Insulin Glargine (Lantus (Bk)) 11 units SC QHS [facility] Last Admin: 04/05/19 23:22 Dose: Not Given Documented by: Insulin Human Lispro (Humalog Kwikpen ([facility])) 0 unit SC TIDAC [facility]; Protocol Last Admin: 04/06/19 08:19 Dose: Not Given Documented by: Isosorbide Mononitrate (Imdur) 90 mg PO DAILY [facility] Isosorbide Mononitrate (Imdur) 60 mg PO QHS [facility] Last Admin: 04/05/19 23:14 Dose: 60 mg Documented by: Losartan Potassium (Cozaar) 50 mg PO BID [facility] Last Admin: 04/05/19 23:13 Dose: 50 mg Documented by: Melatonin (Melatonin) 3 mg PO QHS [facility] Last Admin: 04/05/19 23:14 Dose: 3 mg Documented by: Multivitamins (Allbee W/C Caplet, Thera B Comp/C) [facility] Nutritional Formula (Lactose Free) (Glucerna Shake) 120 ml PO 4X/DAY [facility] Last Admin: 04/06/19 08:14 Dose: Not Given Documented by: Ondansetron HCl (Zofran) 4 mg IV Q8H PRN PRN PRN Reason: NAUSEA/VOMITING Oxycodone HCl (Oxyir) 5 mg PO Q4H PRN PRN PRN Reason: Pain Score 6-10/10 Pantoprazole Sodium (Protonix) 40 mg PO DAILY [facility] Pramipexole Dihydrochloride (Mirapex) 0.25 mg PO QHS [facility] Last Admin: 04/05/19 23:14 Dose: 0.25 mg Documented by: Sevelamer Carbonate (Renvela) 2,400 mg PO TIDCM [facility] Sodium Chloride () 10 - 40 ml IV UD PRN PRN Reason: SALINE FLUSH Last Admin: 04/05/19 23:15 Dose: 10 ml Documented by: Medical Necessity - Tobacco Use Smoking Status: Former smoker Assessment/Plan All Active Problems (Last Reviewed 04/05/19 @ 21:54 by Chaim Jauregui DO) GI bleed (Acute) Anemia due to acute blood loss (Acute) This is a 74 years old female patient presented again to the emergency room because of bleeding per rectum and admitted for recurrent GI bleed and she was discharged from the hospital on April 04, 2019. #1 Recurrent GI bleed: Patient was discharged from the hospital 3 days ago, underwent extensive work-up. She had upper EGD revealed normal jejunum, normal duodenum, gastritis, normal esophagus, no active bleeding. Gastric biopsy was negative for H. pylori. Also, she underwent colonoscopy and found to have blood in the entire colon, diverticulosis and without source of active bleeding. Also, nuclear bleeding scan performed on April 01, 2019 and showed no evidence of acute GI bleed. On admission, hemoglobin was 10.4 g/dL, and this morning it is 9.6 g/dL. Her vital signs are stable. General surgery consulted. I discussed the case with Dr. Garcia and plan is that Dr. Morales is going to try to talk to colleagues at [facility] tomorrow morning and also she is going to Dr. Sinclair and see if there is any other options for this patient. Plan: H&H at 4 PM today, repeat CBC tomorrow morning, transfuse if hemoglobin less than 8 g/dL. #2 acute on chronic blood loss anemia: During her recent admission, she received a total of 3 units of packed RBCs and upon discharge, hemoglobin was 9.6 g/dL. Today, hemoglobin is 9.6 g/dL, stable at this point. Plan as above, transfuse if hemoglobin less than 8 g/dL. #3 ESRD on hemodialysis: On hemodialysis on Mondays, Wednesdays and Fridays. Nephrology consulted. #4 type 2 diabetes mellitus: Blood sugar stable, continue Lantus nightly, insulin sliding scale. #5 CAD status post stents: Stable, continue statins, Coreg, isosorbide mononitrate and losartan. Hold aspirin for now. #6 hypertension: Blood pressure stable, continue Coreg, hydralazine, nitrate and losartan. #7 chronic back pain: Continue OxyIR PRN. #8 DVT prophylaxis: SCDs. This note was generated with [employer] ([employer])ation software. It may contain incorrect words, spelling, and punctuation that were not noted in checking the note before signing. Code Visit Inpatient E&M: 46405 Subs Hosp L2 OBSV E&M: 66859 Subsequent observation care L2
[2019-04-06] MEDS: SEVELAMER CARBONATE 800 MG TABLET 2400 MG PO ×3 (09:42→17:32)
[2019-04-06] MEDS: Carvedilol 12.5 MG Tablet PO ×2 (09:42→21:29)
[2019-04-06] MEDS: Isosorbide Mononitrate 30 MG Tablet 90 MG PO (09:42)
[2019-04-06] MEDS: Losartan Potassium 50 MG Tablet PO ×2 (09:43→21:29)
[2019-04-06] MEDS: Vitamin B Comp W-C Capsule 1 CAP PO (09:44)
[2019-04-06] MEDS: Pantoprazole Sodium 40 MG Tablet PO (09:45)
[2019-04-06] MEDS: Acetaminophen 325 MG Tablet 650 MG PO (09:53)
[2019-04-06] MEDS: hydrALAZINE 50 MG Tablet 100 MG PO ×2 (11:42→21:30)
[2019-04-06] MEDS: oxyCODONE 5 MG Tablet PO ×3 (11:46→20:26)
[2019-04-06 11:56] LABS: Bedside Glucose 86 mg/dL (70-110)
[2019-04-06 16:15] LABS: Bedside Glucose 101 mg/dL (70-110)
[2019-04-06 17:36] LABS: Hematocrit 30.8 % (37-47); Hemoglobin 9.8 g/dL (12.0-15.0)
[2019-04-06] MEDS: Docusate Sodium 100 MG Capsule PO (21:29)
[2019-04-06] MEDS: Pramipexole Di-HCl 0.25 MG Tablet PO (21:29)
[2019-04-06] MEDS: Atorvastatin Calcium 80 MG Tablet PO (21:29)
[2019-04-06] MEDS: cycloBENZAPRine HCl 5 MG TABLET PO (21:29)
[2019-04-06] MEDS: MELATONIN 3 MG TABLET PO (21:29)
[2019-04-06] MEDS: Gabapentin 100 MG Capsule 200 MG PO (21:29)
[2019-04-06] MEDS: Isosorbide Mononitrate 60 MG Tablet PO (21:33)
[2019-04-06 22:05] LABS: Bedside Glucose 139 mg/dL (70-110)
[2019-04-07] VITALS (10 sets, daily range): BP systolic 118–144; BP diastolic 48–68; PULSE 51–76; RESP 14–18; TEMP 36.6–37.1; O2SAT 93–100
[2019-04-07] MEDS: Gabapentin 100 MG Capsule PO ×2 (06:14→13:52)
[2019-04-07 06:35] LABS: Absolute Lymphocyte Count 1.13 X10^3/uL (0.83-4.51); Absolute Neutrophil Count 1.3 X10^3/uL (2.0-7.7); Basophil# 0.05 X10^3/uL; Basophil% 1.6 % (0-1); Eosinophil# 0.16 X10^3/uL; Eosinophils% 5.2 % (0-5); Hematocrit 28.9 % (37-47); Lymphocyte # 1.13 X10^3/ul (4.0); Mean Corp Hgb Conc 31.1 g/dL (32-36); Mean Corpuscular Hgb 30.2 pg (27.0-32.0); Mean Platelet Vol. 9.8 fl (6.2-12.0); Monocyte# 0.37 X10^3/uL; Monocyte% 12.1 % (0-10); NRBC Flagged by Analyzer 0 % (0-5); Neutrophil # 1.33 X10^3/uL (2.7-7.7); Neutrophil % 43.8 % (47-70); POSITIVE COUNT YES; Platelet Count 81 K/mm3 (150-450); RBC Distribution Width CV 17.1 % (11.6-14.6); RBC Distribution Width SD 60.9 fl (35.1-43.9); Red Blood Count 2.98 M/mm3 (4.2-5.4); White Blood Count 3.1 K/mm3 (4.4-11.0)
[2019-04-07 06:56] LABS: Albumin, Serum 2.2 g/dL (3.2-5.0); BUN 31 mg/dL (7-18); BUN/Creat Ratio 6.5 RATIO (10-20); Calcium,Total 7.4 mg/dL (8.5-10.1); Chloride 92 mmol/L (98-107); Creatinine, Serum 4.76 mg/dL (0.55-1.02); EST Glomerular Filtration Rate 10 mL/min (>60); Est Glom Filt Rate - Afr Amer 11 mL/min (>60); Estimated Creatinine Clearance 9.05 ml/min; Glucose 76 mg/dL (74-106); Phosphorus 4.9 mg/dL (2.5-4.9); Potassium 5.8 mmol/L (3.5-5.1); Sodium Level 126 mmol/L (136-145)
[2019-04-07 07:04] LABS: Differential Indicated SCAN CRITERIA MET
[2019-04-07] MEDS: SEVELAMER CARBONATE 800 MG TABLET 2400 MG PO (08:16)
[2019-04-07] MEDS: Vitamin B Comp W-C Capsule 1 CAP PO (08:16)
--- NOTE | 2019-04-07 09:57 | PN_ITS ---
Subjective: Patient complain of cough, flulike symptoms sore throat. No fever or chills. Heart rate and blood pressure is stable. Hemoglobin 9/28.9. Currently undergoing hemodialysis. Discussed with surgeon Dr. Garcia. Denies hematemesis or melena last night. Vitals/I&O's: Vital Signs Temp Pulse Resp BP Pulse Ox 97.8 F 51 L 14 122/48 H 100 04/07/19 07:53 04/07/19 07:53 04/07/19 07:53 04/07/19 07:53 04/07/19 07:53 Oxygen Flow Rate (L/min) 2 Oxygen Delivery Method Nasal Cannula Weight: 214 lb 15.211 oz Body Mass Index (BMI) 34.3 Finger Stick Blood Glucose 99 Intake and Output for Last 24 Hours 04/05/19 04/06/19 04/07/19 23:59 23:59 23:59 Intake Total 290.83 / 290.83 1195 / 1195 200 / 200 Output Total 0 / 0 Balance 290.83 / 290.83 1195 / 1195 200 / 200 General: Alert, Oriented x3, Cooperative HEENT: Atraumatic, PERRLA, EOMI, Normocephalic Oral: Dry Mucosa Neck: Supple, No JVD, Negative Carotid Bruits Lungs: No rhonchi, No wheeze, No rales, Diminished - Air entry is diminished. Cardiovascular: Regular rate, No murmurs Abdomen: Bowel Sounds Present, Soft, Non Tender, Distended - Possible ascites Patient states she gets ascites and paracentesis every month last one in February. Extremities: Capillary Refill Less than 3 Seconds, Edema Skin: No rashes, No breakdown Musculoskeletal: No Tenderness to Palpation of Joints or Extremities, Arthritic Changes Neurological: Cranial nerves II-XII grossly intact Psych/Mental Status: Normal Affect, Appropriate Laboratory Results 04/06/19 11:48: POC Glucose 86 04/06/19 16:08: POC Glucose 101 04/06/19 17:30: Hgb 9.8 L, Hct 30.8 L 04/06/19 22:00: POC Glucose 139 H 04/07/19 06:15: WBC 3.1 L, RBC 2.98 L, Hgb 9.0 L, Hct 28.9 L, MCV 97.0, MCH 30.2, MCHC 31.1 L, RDW Std Deviation 60.9 H, RDW Coeff of Susan 17.1 H, Plt Count 81 L, MPV 9.8, Immature Gran % (Auto) 0.300, Neut % (Auto) 43.8 L, Lymph % (Auto) 37.0, Perkins % (Auto) 12.1 H, Eos % (Auto) 5.2 H, Baso % (Auto) 1.6 H, Absolute Neuts (auto) 1.3 L, Absolute Lymphs (auto) 1.13, Nucleated RBC % 0 04/07/19 06:15: Sodium 126 L, Potassium 5.8 H, Chloride 92 L, Carbon Dioxide 26.0, BUN 31 H, Creatinine 4.76 H, Estim Creat Clear Calc 9.05, Est GFR (MDRD) Af Amer 11 L, Est GFR (MDRD) Non-Af 10 L, BUN/Creatinine Ratio 6.5 L, Glucose 76, Calcium 7.4 L, Phosphorus 4.9, Albumin 2.2 L Current Medications Acetaminophen (Tylenol) 650 mg PO Q6H PRN PRN PRN Reason: Pain Score 1-3/Temp > 100.7 F Last Admin: 04/06/19 09:53 Dose: 650 mg Documented by: Atorvastatin Calcium (Lipitor) 80 mg PO QHS [facility] Last Admin: 04/06/19 21:29 Dose: 80 mg Documented by: Carvedilol (Coreg) 12.5 mg PO BID [facility] Last Admin: 04/06/19 21:29 Dose: 12.5 mg Documented by: Cholecalciferol (Vitamin D) 5,000 unit PO MoWeFr@1000 [facility] Cyclobenzaprine HCl (Cyclobenzaprine Hcl) 5 mg PO BID [facility] Last Admin: 04/06/19 21:29 Dose: 5 mg Documented by: Dextrose (D50w Syringe) 0 gm IV X1 PRN; Protocol PRN Reason: Hypoglycemia Docusate Sodium (Colace) 100 mg PO BID [facility] Last Admin: 04/06/19 21:29 Dose: 100 mg Documented by: Gabapentin (Neurontin) 100 mg PO BID@0600,1400 [facility] Last Admin: 04/07/19 06:14 Dose: 100 mg Documented by: Gabapentin (Neurontin) 200 mg PO QHS [facility] Last Admin: 04/06/19 21:29 Dose: 200 mg Documented by: Glucagon () 1 mg IM .X1 PRN PRN Reason: Hypoglycemia Hydralazine HCl (Apresoline) 100 mg PO BID [facility] Last Admin: 04/06/19 21:30 Dose: 100 mg Documented by: Sodium Chloride () 250 mls @ 15 mls/hr IV .[id number] PRN PRN Reason: Saline Flush Insulin Glargine (Lantus ([facility])) 11 units SC QHS [facility] Last Admin: 04/06/19 22:02 Dose: 11 u Documented by: Insulin Human Lispro (Humalog Kwikpen ([facility])) 0 unit SC TIDAC [facility]; Protocol Last Admin: 04/07/19 06:59 Dose: Not Given Documented by: Isosorbide Mononitrate (Imdur) 90 mg PO DAILY [facility] Last Admin: 04/06/19 09:42 Dose: 90 mg Documented by: Isosorbide Mononitrate (Imdur) 60 mg PO QHS [facility] Last Admin: 04/06/19 21:33 Dose: 60 mg Documented by: Losartan Potassium (Cozaar) 50 mg PO BID [facility] Last Admin: 04/06/19 21:29 Dose: 50 mg Documented by: Melatonin (Melatonin) 3 mg PO QHS [facility] Last Admin: 04/06/19 21:29 Dose: 3 mg Documented by: Multivitamins (Allbee W/C Caplet, Thera B Comp/C) [facility] Last Admin: 04/07/19 08:16 Dose: 1 capsule Documented by: Ondansetron HCl (Zofran) 4 mg IV Q8H PRN PRN PRN Reason: NAUSEA/VOMITING Oxycodone HCl (Oxyir) 5 mg PO Q4H PRN PRN PRN Reason: Pain Score 6-10/10 Last Admin: 04/06/19 20:26 Dose: 5 mg Documented by: Pantoprazole Sodium (Protonix) 40 mg PO DAILY [facility] Last Admin: 04/06/19 09:45 Dose: 40 mg Documented by: Pramipexole Dihydrochloride (Mirapex) 0.25 mg PO QHS [facility] Last Admin: 04/06/19 21:29 Dose: 0.25 mg Documented by: Sevelamer Carbonate (Renvela) 2,400 mg PO TIDCM [facility] Last Admin: 04/07/19 08:16 Dose: 2,400 mg Documented by: Sodium Chloride () 10 - 40 ml IV UD PRN PRN Reason: SALINE FLUSH Last Admin: 04/05/19 23:15 Dose: 10 ml Documented by: STROKE Vital Signs/Narrative: Vital Signs Temp Pulse Resp BP Pulse Ox 04/07/19 07:53 97.8 F 51 L 14 122/48 H 100 Medical Necessity - Tobacco Use Smoking Status: Former smoker Assessment/Plan All Active Problems (Last Reviewed 04/05/19 @ 21:54 by Chaim Jauregui DO) GI bleed (Acute) Anemia due to acute blood loss (Acute) This is a 74 years old female patient presented again to the emergency room because of bleeding per rectum and admitted for recurrent GI bleed and she was discharged from the hospital on April 04, 2019. #1 Recurrent GI bleed: Patient was recently discharged on April 04 after extensive work-up of GI bleed. She had upper EGD revealed normal jejunum, normal duodenum, gastritis, normal esophagus, no active bleeding. Gastric biopsy was negative for H. pylori. Also, she underwent colonoscopy and found to have blood in the entire colon, diverticulosis and without source of active bleeding. Also, nuclear bleeding scan performed on April 01, 2019 and showed no evidence of acute GI bleed. H&H is stable between 9 to 10 g%. Platelet count is 80,000. Hemodynamically stable. Discussed with general surgeon Dr. Garcia. Admits of multiple organ failure including cirrhosis, decompensated with ascites with recurrent paracentesis once in the month, ESRD on hemodialysis, coronary artery disease status post stent, COPD patient is high risk for total colectomy in view of diffuse diverticulosis. She recommended paracentesis tomorrow and anticipate discharge. Paracentesis ordered for tomorrow along with the labs. Patient further comes for GI bleed will recommend transfer to [facility]. #2 acute on chronic blood loss anemia: During her recent admission, she received a total of 3 units of packed RBCs and upon discharge, hemoglobin was 9.6 g/dL. During this admission, H&H is stable. Patient is not on antiplatelet/anticoagulant, NSAID medication. #3 ESRD on hemodialysis: On hemodialysis on Mondays, Wednesdays and Fridays. Nephrology consulted. #4 type 2 diabetes mellitus: Blood sugar stable, continue Lantus nightly, insulin sliding scale. Patient has reasonable glucose control. #5 CAD status post stents: Stable, continue statins, Coreg, isosorbide mononitrate and losartan. Aspirin on hold #6 hypertension: Blood pressure stable, continue Coreg, hydralazine, nitrate and losartan. #7 chronic back pain: Continue OxyIR PRN. #8 DVT prophylaxis: SCDs. Laboratory Results 04/06/19 11:48: POC Glucose 86 04/06/19 16:08: POC Glucose 101 04/06/19 17:30: Hgb 9.8 L, Hct 30.8 L 04/06/19 22:00: POC Glucose 139 H 04/07/19 06:15: WBC 3.1 L, RBC 2.98 L, Hgb 9.0 L, Hct 28.9 L, MCV 97.0, MCH 30.2, MCHC 31.1 L, RDW Std Deviation 60.9 H, RDW Coeff of Susan 17.1 H, Plt Count 81 L, MPV 9.8, Immature Gran % (Auto) 0.300, Neut % (Auto) 43.8 L, Lymph % (Auto) 37.0, Perkins % (Auto) 12.1 H, Eos % (Auto) 5.2 H, Baso % (Auto) 1.6 H, Absolute Neuts (auto) 1.3 L, Absolute Lymphs (auto) 1.13, Nucleated RBC % 0 04/07/19 06:15: Sodium 126 L, Potassium 5.8 H, Chloride 92 L, Carbon Dioxide 26.0, BUN 31 H, Creatinine 4.76 H, Estim Creat Clear Calc 9.05, Est GFR (MDRD) Af Amer 11 L, Est GFR (MDRD) Non-Af 10 L, BUN/Creatinine Ratio 6.5 L, Glucose 76, Calcium 7.4 L, Phosphorus 4.9, Albumin 2.2 L Active Medications Acetaminophen (Tylenol) 650 mg PO Q6H PRN PRN PRN Reason: Pain Score 1-3/Temp > 100.7 F Last Admin: 04/06/19 09:53 Dose: 650 mg Documented by: Atorvastatin Calcium (Lipitor) 80 mg PO QHS [facility] Last Admin: 04/06/19 21:29 Dose: 80 mg Documented by: Carvedilol (Coreg) 12.5 mg PO BID [facility] Last Admin: 04/06/19 21:29 Dose: 12.5 mg Documented by: Cholecalciferol (Vitamin D) 5,000 unit PO MoWeFr@1000 [facility] Cyclobenzaprine HCl (Cyclobenzaprine Hcl) 5 mg PO BID [facility] Last Admin: 04/06/19 21:29 Dose: 5 mg Documented by: Dextrose (D50w Syringe) 0 gm IV X1 PRN; Protocol PRN Reason: Hypoglycemia Docusate Sodium (Colace) 100 mg PO BID [facility] Last Admin: 04/06/19 21:29 Dose: 100 mg Documented by: Gabapentin (Neurontin) 100 mg PO BID@0600,1400 [facility] Last Admin: 04/07/19 06:14 Dose: 100 mg Documented by: Gabapentin (Neurontin) 200 mg PO QHS [facility] Last Admin: 04/06/19 21:29 Dose: 200 mg Documented by: Glucagon () 1 mg IM .X1 PRN PRN Reason: Hypoglycemia Hydralazine HCl (Apresoline) 100 mg PO BID [facility] Last Admin: 04/06/19 21:30 Dose: 100 mg Documented by: Sodium Chloride () 250 mls @ 15 mls/hr IV .[id number] PRN PRN Reason: Saline Flush Insulin Glargine (Lantus (Bk)) 11 units SC QHS [facility] Last Admin: 04/06/19 22:02 Dose: 11 u Documented by: Insulin Human Lispro (Humalog Kwikpen (Bk)) 0 unit SC TIDAC [facility]; Protocol Last Admin: 04/07/19 06:59 Dose: Not Given Documented by: Isosorbide Mononitrate (Imdur) 90 mg PO DAILY [facility] Last Admin: 04/06/19 09:42 Dose: 90 mg Documented by: Isosorbide Mononitrate (Imdur) 60 mg PO QHS [facility] Last Admin: 04/06/19 21:33 Dose: 60 mg Documented by: Losartan Potassium (Cozaar) 50 mg PO BID [facility] Last Admin: 04/06/19 21:29 Dose: 50 mg Documented by: Melatonin (Melatonin) 3 mg PO QHS [facility] Last Admin: 04/06/19 21:29 Dose: 3 mg Documented by: Multivitamins (Allbee W/C Caplet, Thera B Comp/C) [facility] Last Admin: 04/07/19 08:16 Dose: 1 capsule Documented by: Ondansetron HCl (Zofran) 4 mg IV Q8H PRN PRN PRN Reason: NAUSEA/VOMITING Oxycodone HCl (Oxyir) 5 mg PO Q4H PRN PRN PRN Reason: Pain Score 6-10/10 Last Admin: 04/06/19 20:26 Dose: 5 mg Documented by: Pantoprazole Sodium (Protonix) 40 mg PO DAILY [facility] Last Admin: 04/06/19 09:45 Dose: 40 mg Documented by: Pramipexole Dihydrochloride (Mirapex) 0.25 mg PO QHS [facility] Last Admin: 04/06/19 21:29 Dose: 0.25 mg Documented by: Sevelamer Carbonate (Renvela) 2,400 mg PO TIDCM [facility] Last Admin: 04/07/19 08:16 Dose: 2,400 mg Documented by: Sodium Chloride () 10 - 40 ml IV UD PRN PRN Reason: SALINE FLUSH Last Admin: 04/05/19 23:15 Dose: 10 ml Documented by: Code Visit Inpatient E&M: 02080 Subs Hosp L2
--- NOTE | 2019-04-07 10:14 | CASEMGMT ---
Updates faxed to [facility] at [place]. Marylou RAMIREZ [employer]
--- NOTE | 2019-04-07 12:01 | PCM.CONS.R ---
Consultation - Renal 04/07/19 PCP/ Referring MD: Requesting physician: [] Primary care physician: Walter Chao MD Reason for Consultation:: ESRD HD MWF - History of Present Illness History of Present Illness: The patient is a 74 year old F with ESRD due to diabetes, hypertension on HD MWF readmitted for persistent GI bleed with BRBPR. She was recently discharged back to [facility] after receiving prbc. Hgb stable. Seen on dialysis. Appears volume overloaded. Gen surgery consulted. Bleeding scan and endoscopy was unremarkable for active bleeding performed during last hospitalization. - Allergies Allergies: Allergies lisinopril Allergy (Severe, Verified 04/05/19 20:27) Angioedema nebivolol HCl [From Bystolic] Adverse Reaction (Severe, Verified 04/05/19 20:27) bradycardia BRADYCARDIA - Current Medications Current Medications: Current Medications Acetaminophen (Tylenol) 650 mg PO Q6H PRN PRN PRN Reason: Pain Score 1-3/Temp > 100.7 F Last Admin: 04/06/19 09:53 Dose: 650 mg Documented by: Atorvastatin Calcium (Lipitor) 80 mg PO QHS [facility] Last Admin: 04/06/19 21:29 Dose: 80 mg Documented by: Carvedilol (Coreg) 12.5 mg PO BID [facility] Last Admin: 04/06/19 21:29 Dose: 12.5 mg Documented by: Cholecalciferol (Vitamin D) 5,000 unit PO MoWeFr@1000 [facility] Cyclobenzaprine HCl (Cyclobenzaprine Hcl) 5 mg PO BID [facility] Last Admin: 04/06/19 21:29 Dose: 5 mg Documented by: Dextrose (D50w Syringe) 0 gm IV X1 PRN; Protocol PRN Reason: Hypoglycemia Docusate Sodium (Colace) 100 mg PO BID [facility] Last Admin: 04/06/19 21:29 Dose: 100 mg Documented by: Gabapentin (Neurontin) 100 mg PO BID@0600,1400 [facility] Last Admin: 04/07/19 06:14 Dose: 100 mg Documented by: Gabapentin (Neurontin) 200 mg PO QHS [facility] Last Admin: 04/06/19 21:29 Dose: 200 mg Documented by: Glucagon () 1 mg IM .X1 PRN PRN Reason: Hypoglycemia Hydralazine HCl (Apresoline) 100 mg PO BID [facility] Last Admin: 04/06/19 21:30 Dose: 100 mg Documented by: Sodium Chloride () 250 mls @ 15 mls/hr IV .[id number] PRN PRN Reason: Saline Flush Insulin Glargine (Lantus (Bkc)) 11 units SC BREAKFAST [facility] Insulin Glargine (Lantus (Bkc)) 5 units SC QHS [facility] Insulin Human Lispro (Humalog Kwikpen ([facility])) 0 unit SC TIDAC [facility]; Protocol Last Admin: 04/07/19 06:59 Dose: Not Given Documented by: Isosorbide Mononitrate (Imdur) 90 mg PO DAILY [facility] Last Admin: 04/06/19 09:42 Dose: 90 mg Documented by: Isosorbide Mononitrate (Imdur) 60 mg PO QHS [facility] Last Admin: 04/06/19 21:33 Dose: 60 mg Documented by: Losartan Potassium (Cozaar) 50 mg PO BID [facility] Last Admin: 04/06/19 21:29 Dose: 50 mg Documented by: Melatonin (Melatonin) 3 mg PO QHS [facility] Last Admin: 04/06/19 21:29 Dose: 3 mg Documented by: Multivitamins (Allbee W/C Caplet, Thera B Comp/C) [facility] Last Admin: 04/07/19 08:16 Dose: 1 capsule Documented by: Ondansetron HCl (Zofran) 4 mg IV Q8H PRN PRN PRN Reason: NAUSEA/VOMITING Oxycodone HCl (Oxyir) 5 mg PO Q4H PRN PRN PRN Reason: Pain Score 6-10/10 Last Admin: 04/06/19 20:26 Dose: 5 mg Documented by: Pantoprazole Sodium (Protonix) 40 mg PO DAILY [facility] Last Admin: 04/06/19 09:45 Dose: 40 mg Documented by: Pramipexole Dihydrochloride (Mirapex) 0.25 mg PO QHS [facility] Last Admin: 04/06/19 21:29 Dose: 0.25 mg Documented by: Sevelamer Carbonate (Renvela) 2,400 mg PO TIDCM [facility] Last Admin: 04/07/19 08:16 Dose: 2,400 mg Documented by: Sodium Chloride () 10 - 40 ml IV UD PRN PRN Reason: SALINE FLUSH Last Admin: 04/05/19 23:15 Dose: 10 ml Documented by: - Past Medical History Past Medical History (Chronic Problems): Chronic Problems (Last Reviewed 04/05/19 @ 21:54 by Chaim Jauregui DO) Chronic renal failure (Chronic) History of GI bleed (Chronic) History of non-ST elevation myocardial infarction (NSTEMI) (Chronic 07/05/16) Atherosclerotic heart disease of [place] coronary artery without angina pectoris (Chronic) Stented coronary artery (Chronic) Cutting Balloon and TAMI (3.0X18 mm Xience) Proximal LAD 04/18/2012; Rotational atherectomy to proximal, id and distal RCA with two overlapping 4.0 X 38 Synergy TAMI ([facility] main) Ascites (Chronic) Pancytopenia (Chronic) Other specified peripheral vascular diseases (Chronic) Afib (Chronic) Congenital coronary artery anomaly (Chronic) Bradycardia (Chronic) CAD (coronary artery disease) (Chronic) Diabetes mellitus, type II (Chronic) Hyperlipidemia (Chronic) Hypothyroidism (Chronic) Anemia in chronic kidney disease (Chronic) Hypertension (Chronic) End stage renal disease on dialysis (Chronic) - Past Surgical History Surgical History: appendectomy, cholecystectomy, hysterectomy, total knee arthroplasty, - - Left upper extremity fistula, back surgery, colon resection with history of diverticulitis, GI bleed, right knee surgery, right total knee replacement, right foot surgery, left knee surgery, left foot surgery, PCI. - Social History Smoking Status: Former smoker - Family History Maternal Family History: Family History (Last Reviewed 04/05/19 @ 21:55 by Chaim Jauregui DO) Sister Diabetes Heart disease Hypertension Anemia History Items: Cancer - uterine Paternal Family History: Family History (Last Reviewed 04/05/19 @ 21:55 by Chaim Jauregui DO) Sister Diabetes Heart disease Hypertension Anemia History Items: Cancer Sibling Family History: Family History (Last Reviewed 04/05/19 @ 21:55 by Chaim Jauregui DO) Sister Diabetes Heart disease Hypertension Anemia History Items: Diabetes Review of Systems Constitutional: Reports: Anorexia, Weakness. Denies: Chills, Fever Cardiovascular: Reports: Edema. Denies: Chest Pain, Syncope Respiratory: Reports: Cough. Denies: Shortness of Breath Gastrointestinal: Reports: Hematochezia, - - ascites scheduled for paracentesis tomorrow as outpt. Denies: Diarrhea, Nausea, Vomiting Genitourinary: Reports: - - minimal urine output Hematologic/ Lymphatic: Reports: Anemia - Physical Exam Vitals/I&O's: Vital Signs Temp Pulse Resp BP Pulse Ox 97.8 F 51 L 14 122/48 H 93 04/07/19 07:53 04/07/19 07:53 04/07/19 07:53 04/07/19 07:53 04/07/19 10:45 Oxygen Flow Rate (L/min) 2 Oxygen Delivery Method Nasal Cannula Weight: 97.5 kg Body Mass Index (BMI) 34.3 Finger Stick Blood Glucose 99 Intake and Output for Last 24 Hours 04/05/19 04/06/19 04/07/19 23:59 23:59 23:59 Intake Total 290.83 / 290.83 1195 / 1195 200 / 200 Output Total 0 / 0 Balance 290.83 / 290.83 1195 / 1195 200 / 200 General: Alert, Oriented x3, Cooperative, No apparent distress Lungs: Clear to auscultation Abdomen: Bowel Sounds Present, Soft, Non Tender, Distended, Obese Extremities: Edema Musculoskeletal: No Muscle Wasting Neurological: Cranial nerves II-XII grossly intact Psych/Mental Status: Normal Affect, Alert and oriented to time, place, person, mood and affect Laboratory Results 04/06/19 16:08: POC Glucose 101 04/06/19 17:30: Hgb 9.8 L, Hct 30.8 L 04/06/19 22:00: POC Glucose 139 H 04/07/19 06:15: WBC 3.1 L, RBC 2.98 L, Hgb 9.0 L, Hct 28.9 L, MCV 97.0, MCH 30.2, MCHC 31.1 L, RDW Std Deviation 60.9 H, RDW Coeff of Susan 17.1 H, Plt Count 81 L, MPV 9.8, Immature Gran % (Auto) 0.300, Neut % (Auto) 43.8 L, Lymph % (Auto) 37.0, [place] % (Auto) 12.1 H, Eos % (Auto) 5.2 H, Baso % (Auto) 1.6 H, Absolute Neuts (auto) 1.3 L, Absolute Lymphs (auto) 1.13, Nucleated RBC % 0 04/07/19 06:15: Sodium 126 L, Potassium 5.8 H, Chloride 92 L, Carbon Dioxide 26.0, BUN 31 H, Creatinine 4.76 H, Estim Creat Clear Calc 9.05, Est GFR (MDRD) Af Amer 11 L, Est GFR (MDRD) Non-Af 10 L, BUN/Creatinine Ratio 6.5 L, Glucose 76, Calcium 7.4 L, Phosphorus 4.9, Albumin 2.2 L Current Medications Acetaminophen (Tylenol) 650 mg PO Q6H PRN PRN PRN Reason: Pain Score 1-3/Temp > 100.7 F Last Admin: 04/06/19 09:53 Dose: 650 mg Documented by: Atorvastatin Calcium (Lipitor) 80 mg PO QHS [facility] Last Admin: 04/06/19 21:29 Dose: 80 mg Documented by: Carvedilol (Coreg) 12.5 mg PO BID [facility] Last Admin: 04/06/19 21:29 Dose: 12.5 mg Documented by: Cholecalciferol (Vitamin D) 5,000 unit PO MoWeFr@1000 [facility] Cyclobenzaprine HCl (Cyclobenzaprine Hcl) 5 mg PO BID [facility] Last Admin: 04/06/19 21:29 Dose: 5 mg Documented by: Dextrose (D50w Syringe) 0 gm IV X1 PRN; Protocol PRN Reason: Hypoglycemia Docusate Sodium (Colace) 100 mg PO BID [facility] Last Admin: 04/06/19 21:29 Dose: 100 mg Documented by: Gabapentin (Neurontin) 100 mg PO BID@0600,1400 [facility] Last Admin: 04/07/19 06:14 Dose: 100 mg Documented by: Gabapentin (Neurontin) 200 mg PO QHS [facility] Last Admin: 04/06/19 21:29 Dose: 200 mg Documented by: Glucagon () 1 mg IM .X1 PRN PRN Reason: Hypoglycemia Hydralazine HCl (Apresoline) 100 mg PO BID [facility] Last Admin: 04/06/19 21:30 Dose: 100 mg Documented by: Sodium Chloride () 250 mls @ 15 mls/hr IV .[id number] PRN PRN Reason: Saline Flush Insulin Glargine (Lantus (Bkc)) 11 units SC BREAKFAST [facility] Insulin Glargine (Lantus (Bkc)) 5 units SC QHS [facility] Insulin Human Lispro (Humalog Kwikpen (Bkc)) 0 unit SC TIDAC [facility]; Protocol Last Admin: 04/07/19 06:59 Dose: Not Given Documented by: Isosorbide Mononitrate (Imdur) 90 mg PO DAILY [facility] Last Admin: 04/06/19 09:42 Dose: 90 mg Documented by: Isosorbide Mononitrate (Imdur) 60 mg PO QHS [facility] Last Admin: 04/06/19 21:33 Dose: 60 mg Documented by: Losartan Potassium (Cozaar) 50 mg PO BID [facility] Last Admin: 04/06/19 21:29 Dose: 50 mg Documented by: Melatonin (Melatonin) 3 mg PO QHS [facility] Last Admin: 04/06/19 21:29 Dose: 3 mg Documented by: Multivitamins (Allbee W/C Caplet, Thera B Comp/C) [facility] Last Admin: 04/07/19 08:16 Dose: 1 capsule Documented by: Ondansetron HCl (Zofran) 4 mg IV Q8H PRN PRN PRN Reason: NAUSEA/VOMITING Oxycodone HCl (Oxyir) 5 mg PO Q4H PRN PRN PRN Reason: Pain Score 6-10/10 Last Admin: 04/06/19 20:26 Dose: 5 mg Documented by: Pantoprazole Sodium (Protonix) 40 mg PO DAILY [facility] Last Admin: 04/06/19 09:45 Dose: 40 mg Documented by: Pramipexole Dihydrochloride (Mirapex) 0.25 mg PO QHS [facility] Last Admin: 04/06/19 21:29 Dose: 0.25 mg Documented by: Sevelamer Carbonate (Renvela) 2,400 mg PO TIDCM [facility] Last Admin: 04/07/19 08:16 Dose: 2,400 mg Documented by: Sodium Chloride () 10 - 40 ml IV UD PRN PRN Reason: SALINE FLUSH Last Admin: 04/05/19 23:15 Dose: 10 ml Documented by: Assessment/Plan All Active Problems (Last Reviewed 04/05/19 @ 21:54 by Chaim Jauregui DO) GI bleed (Acute) Anemia due to acute blood loss (Acute) 1. ESRD HD MWF 2. GI bleed hgb stable. GS consulted. 3. Liver cirrhosis with ascites. Scheduled for paracentesis as outpt tomorrow 4. HTN stable 5. DMT2 primary service mgmt 6. Hyponatremia due to fluid overload. Remove fluid as tolerated 7. Hyperkalemia correct with dialysis.
[2019-04-07] MEDS: Dextrose 50%-Water 25 GM/50 ML DISP.SYRIN IV (12:04)
[2019-04-07] MEDS: 0.9% Saline Lock 10 ML Syringe IV (12:06)
[2019-04-07 12:36] LABS: Bedside Glucose 122 mg/dL (70-110)
[2019-04-07 12:36] LABS: Bedside Glucose 69 mg/dL (70-110)
[2019-04-07 12:36] LABS: Bedside Glucose 68 mg/dL (70-110)
[2019-04-07 12:36] LABS: Bedside Glucose 56 mg/dL (70-110)
--- NOTE | 2019-04-07 13:21 | DIALYSIS ---
Hemodialysis tx completed x 4 hours without complications. Pt tolerated tx well, fluid removed 4,500ml using crit-line monitor. Vitals stable throughout tx. Verbal report given to EDIN Brian post tx. Next scheduled tx 04/09/19.
[2019-04-07] MEDS: Isosorbide Mononitrate 30 MG Tablet 90 MG PO (13:50)
[2019-04-07] MEDS: Docusate Sodium 100 MG Capsule PO ×2 (13:50→21:30)
[2019-04-07] MEDS: hydrALAZINE 50 MG Tablet 100 MG PO ×2 (13:52→21:30)
[2019-04-07] MEDS: Carvedilol 12.5 MG Tablet PO ×2 (13:52→21:30)
[2019-04-07] MEDS: cycloBENZAPRine HCl 5 MG TABLET PO ×2 (13:52→21:30)
[2019-04-07] MEDS: Pantoprazole Sodium 40 MG Tablet PO (13:52)
[2019-04-07] MEDS: Losartan Potassium 50 MG Tablet PO ×2 (13:53→21:30)
[2019-04-07] MEDS: Acetaminophen 325 MG Tablet 650 MG PO (13:54)
--- NOTE | 2019-04-07 15:48 | PCM.PN.SRG ---
Subjective: patient hasn't had bowel movement since admission to hospital, hgb stable this morning at 9 has abdominal pain - related to needing paracentesis Hospice was discussed with patient - she does not want this - Physical Exam Vitals/I&O's: Vital Signs Temp Pulse Resp BP Pulse Ox 97.9 F 76 18 141/52 H 100 04/07/19 13:49 04/07/19 13:52 04/07/19 13:49 04/07/19 13:49 04/07/19 13:49 Oxygen Flow Rate (L/min) 2 Oxygen Delivery Method Room Air Weight: 97.5 kg Body Mass Index (BMI) 34.3 Finger Stick Blood Glucose 99 Intake and Output for Last 24 Hours 04/05/19 04/06/19 04/07/19 23:59 23:59 23:59 Intake Total 290.83 / 290.83 1195 / 1195 800 / 800 Output Total 0 / 0 Balance 290.83 / 290.83 1195 / 1195 800 / 800 General: Alert, Oriented x3 Neck: Supple Lungs: Normal air movement Abdomen: Bowel Sounds Present, Soft Microbiology Past 72 Hours 04/07/19 10:45 Mucosa - Nasopharyngeal Respiratory Panel (PCR) - Final Laboratory Results 04/06/19 16:08: POC Glucose 101 04/06/19 17:30: Hgb 9.8 L, Hct 30.8 L 04/06/19 22:00: POC Glucose 139 H 04/07/19 06:15: WBC 3.1 L, RBC 2.98 L, Hgb 9.0 L, Hct 28.9 L, MCV 97.0, MCH 30.2, MCHC 31.1 L, RDW Std Deviation 60.9 H, RDW Coeff of Susan 17.1 H, Plt Count 81 L, MPV 9.8, Immature Gran % (Auto) 0.300, Neut % (Auto) 43.8 L, Lymph % (Auto) 37.0, [place] % (Auto) 12.1 H, Eos % (Auto) 5.2 H, Baso % (Auto) 1.6 H, Absolute Neuts (auto) 1.3 L, Absolute Lymphs (auto) 1.13, Nucleated RBC % 0 04/07/19 06:15: Sodium 126 L, Potassium 5.8 H, Chloride 92 L, Carbon Dioxide 26.0, BUN 31 H, Creatinine 4.76 H, Estim Creat Clear Calc 9.05, Est GFR (MDRD) Af Amer 11 L, Est GFR (MDRD) Non-Af 10 L, BUN/Creatinine Ratio 6.5 L, Glucose 76, Calcium 7.4 L, Phosphorus 4.9, Albumin 2.2 L 04/07/19 11:05: POC Glucose 56 L 04/07/19 11:34: POC Glucose 69 L 04/07/19 11:56: POC Glucose 68 L 04/07/19 12:30: POC Glucose 122 H Current Medications Acetaminophen (Tylenol) 650 mg PO Q6H PRN PRN PRN Reason: Pain Score 1-3/Temp > 100.7 F Last Admin: 04/07/19 13:54 Dose: 650 mg Documented by: Atorvastatin Calcium (Lipitor) 80 mg PO QHS [facility] Last Admin: 04/06/19 21:29 Dose: 80 mg Documented by: Carvedilol (Coreg) 12.5 mg PO BID [facility] Last Admin: 04/07/19 13:52 Dose: 12.5 mg Documented by: Cholecalciferol (Vitamin D) 5,000 unit PO MoWeFr@1000 [facility] Last Admin: 04/07/19 13:51 Dose: 5,000 unit Documented by: Cyclobenzaprine HCl (Cyclobenzaprine Hcl) 5 mg PO BID [facility] Last Admin: 04/07/19 13:52 Dose: 5 mg Documented by: Dextrose (D50w Syringe) 0 gm IV X1 PRN; Protocol PRN Reason: Hypoglycemia Last Admin: 04/07/19 12:04 Dose: 12.5 gm Documented by: Docusate Sodium (Colace) 100 mg PO BID [facility] Last Admin: 04/07/19 13:50 Dose: 100 mg Documented by: Gabapentin (Neurontin) 100 mg PO BID@0600,1400 [facility] Last Admin: 04/07/19 13:52 Dose: 100 mg Documented by: Gabapentin (Neurontin) 200 mg PO QHS [facility] Last Admin: 04/06/19 21:29 Dose: 200 mg Documented by: Glucagon () 1 mg IM .X1 PRN PRN Reason: Hypoglycemia Hydralazine HCl (Apresoline) 100 mg PO BID [facility] Last Admin: 04/07/19 13:52 Dose: 100 mg Documented by: Sodium Chloride () 250 mls @ 15 mls/hr IV .[id number] PRN PRN Reason: Saline Flush Insulin Glargine (Lantus (Bkc)) 11 units SC BREAKFAST [facility] Insulin Glargine (Lantus (Bkc)) 5 units SC QHS [facility] Insulin Human Lispro (Humalog Kwikpen ([facility]k)) 0 unit SC TIDAC [facility]; Protocol Last Admin: 04/07/19 12:04 Dose: Not Given Documented by: Isosorbide Mononitrate (Imdur) 90 mg PO DAILY [facility] Last Admin: 04/07/19 13:50 Dose: 90 mg Documented by: Isosorbide Mononitrate (Imdur) 60 mg PO QHS [facility] Last Admin: 04/06/19 21:33 Dose: 60 mg Documented by: Losartan Potassium (Cozaar) 50 mg PO BID [facility] Last Admin: 04/07/19 13:53 Dose: 50 mg Documented by: Melatonin (Melatonin) 3 mg PO QHS [facility] Last Admin: 04/06/19 21:29 Dose: 3 mg Documented by: Multivitamins (Allbee W/C Caplet, Thera B Comp/C) [facility] Last Admin: 04/07/19 08:16 Dose: 1 capsule Documented by: Ondansetron HCl (Zofran) 4 mg IV Q8H PRN PRN PRN Reason: NAUSEA/VOMITING Oxycodone HCl (Oxyir) 5 mg PO Q4H PRN PRN PRN Reason: Pain Score 6-10/10 Last Admin: 04/06/19 20:26 Dose: 5 mg Documented by: Pantoprazole Sodium (Protonix) 40 mg PO DAILY [facility] Last Admin: 04/07/19 13:52 Dose: 40 mg Documented by: Pramipexole Dihydrochloride (Mirapex) 0.25 mg PO QHS [facility] Last Admin: 04/06/19 21:29 Dose: 0.25 mg Documented by: Sevelamer Carbonate (Renvela) 2,400 mg PO TIDCM [facility] Last Admin: 04/07/19 13:53 Dose: Not Given Documented by: Sodium Chloride () 10 - 40 ml IV UD PRN PRN Reason: SALINE FLUSH Last Admin: 04/07/19 12:06 Dose: 10 ml Documented by: Medical Necessity - Tobacco Use Smoking Status: Former smoker Assessment/Plan All Active Problems (Last Reviewed 04/05/19 @ 21:54 by Chaim Jauregui DO) GI bleed (Acute) Anemia due to acute blood loss (Acute) Impression: rectal bleeding - none since admission Plan: GI source of bleeding cannot be identified, patient stable at this point, it is reasonable to discharge patient she will require paracentesis prior to discharge.
[2019-04-07 17:01] LABS: Bedside Glucose 123 mg/dL (70-110)
[2019-04-07] MEDS: oxyCODONE 5 MG Tablet PO (20:22)
[2019-04-07] MEDS: guaiFENesin 10 ML UDC (200MG/10ML) PO (21:29)
[2019-04-07] MEDS: MELATONIN 3 MG TABLET PO (21:30)
[2019-04-07] MEDS: Pramipexole Di-HCl 0.25 MG Tablet PO (21:30)
[2019-04-07] MEDS: Gabapentin 100 MG Capsule 200 MG PO (21:30)
[2019-04-07] MEDS: Atorvastatin Calcium 80 MG Tablet PO (21:30)
[2019-04-07] MEDS: Isosorbide Mononitrate 60 MG Tablet PO (21:30)
[2019-04-07 21:51] LABS: Bedside Glucose 112 mg/dL (70-110)
[2019-04-08] VITALS (9 sets, daily range): BP systolic 78–123; BP diastolic 37–60; PULSE 58–79; RESP 16–18; TEMP 36.4–36.8; O2SAT 94–97
[2019-04-08] MEDS: Gabapentin 100 MG Capsule PO (06:02)
[2019-04-08 06:22] LABS: Absolute Lymphocyte Count 1.22 X10^3/uL (0.83-4.51); Absolute Neutrophil Count 1.4 X10^3/uL (2.0-7.7); Basophil# 0.04 X10^3/uL; Basophil% 1.3 % (0-1); Eosinophils% 3.3 % (0-5); Hematocrit 27.4 % (37-47); Hemoglobin 8.5 g/dL (12.0-15.0); Lymphocyte # 1.22 X10^3/ul (4.0); Lymphocyte % 39.9 % (19-41); Mean Corpuscular Hgb 29.9 pg (27.0-32.0); Mean Corpuscular Volume 96.5 fL (81-99); Mean Platelet Vol. 9.5 fl (6.2-12.0); Monocyte# 0.32 X10^3/uL; Monocyte% 10.5 % (0-10); NRBC Flagged by Analyzer 0 % (0-5); Neutrophil # 1.38 X10^3/uL (2.7-7.7); POSITIVE COUNT YES; Platelet Count 79 K/mm3 (150-450); RBC Distribution Width CV 17.1 % (11.6-14.6); RBC Distribution Width SD 59.5 fl (35.1-43.9); Red Blood Count 2.84 M/mm3 (4.2-5.4); White Blood Count 3.1 K/mm3 (4.4-11.0)
[2019-04-08 06:36] LABS: International Normalized Ratio 1.4; Prothrombin Time (Protime)PT. 17.3 SECONDS (11.7-14.9)
[2019-04-08 06:37] LABS: Partial Thromboplast Time 42.8 Seconds (24.1-36.2)
[2019-04-08 06:45] LABS: Bedside Glucose 90 mg/dL (70-110)
[2019-04-08 06:46] LABS: Differential Indicated SCAN CRITERIA MET
[2019-04-08 06:50] LABS: Platelet Estimate MOD DEC (ADEQ)
[2019-04-08 06:54] LABS: ALB/GLOB Ratio 0.5 RATIO (0.9-2.4); AST(SGOT) 21 U/L (15-37); Alanine Aminotransfer ALT/SGPT 7 U/L (13-56); Albumin, Serum 2.1 g/dL (3.2-5.0); Alkaline Phosphatase 101 U/L (45-117); Anion Gap 5 (5-15); BUN 19 mg/dL (7-18); BUN/Creat Ratio 5.5 RATIO (10-20); Calcium,Total 7.3 mg/dL (8.5-10.1); Chloride 93 mmol/L (98-107); Creatinine, Serum 3.47 mg/dL (0.55-1.02); EST Glomerular Filtration Rate 14 mL/min (>60); Est Glom Filt Rate - Afr Amer 17 mL/min (>60); Estimated Creatinine Clearance 12.41 ml/min; Globulin 4.2 g/dL (2.2-4.2); Glucose 99 mg/dL (74-106); Potassium 4.9 mmol/L (3.5-5.1); Protein, Total 6.3 g/dL (6.4-8.2); Sodium Level 127 mmol/L (136-145)
--- NOTE | 2019-04-08 08:28 | NURSING ---
spoke to radiology, patient does NOT need to be NPO for procedure. OK for clear liquids
[2019-04-08] MEDS: 0.9% Saline Lock 10 ML Syringe IV (08:36)
[2019-04-08] MEDS: SEVELAMER CARBONATE 800 MG TABLET 2400 MG PO (08:36)
[2019-04-08] MEDS: cycloBENZAPRine HCl 5 MG TABLET PO (08:37)
[2019-04-08] MEDS: Isosorbide Mononitrate 30 MG Tablet 90 MG PO (08:37)
[2019-04-08] MEDS: Docusate Sodium 100 MG Capsule PO (08:37)
[2019-04-08] MEDS: hydrALAZINE 50 MG Tablet 100 MG PO (08:38)
[2019-04-08] MEDS: Carvedilol 12.5 MG Tablet PO (08:38)
[2019-04-08] MEDS: Losartan Potassium 50 MG Tablet PO (08:38)
[2019-04-08] MEDS: Pantoprazole Sodium 40 MG Tablet PO (08:38)
[2019-04-08] MEDS: Vitamin B Comp W-C Capsule 1 CAP PO (08:41)
--- NOTE | 2019-04-08 10:08 | CASEMGMT ---
Addendum entered by Marylou Orozco 04/08/19 10:17: SW notified Candelaria at [facility] that patient will likely be returning today. SW also filled her on information below. Plan: return to [facility]. Palliative care is to see patient. Marylou WHITTEN Original Note: Patient has refused to have surgery in [place]. This surgery would possibly help determine where bleeding is coming from. SW met with patient as she is known to [facility] from previous admissions. SW asked her about surgery and why she declined. She said the doctor told her she needs surgery and they would not do it here. She said the doctor told her that she would probably from the surgery so she doesn't want it. She said they would have to take her whole colon out. SW told her she is going to continue with the same problem of bleeding and then needing blood. SW told her that she can't continue to handle this situation this way. [facility] asked her if she has heard of Palliative care and she said she is active with them already. [facility] told her she is going to have her paracentesis today and will then be discharged back to [facility]. [facility] called [facility]. Patient is active with them as of 03-27, however they have not officially seen her yet as she returned to the hospital. [facility] explained situation above and this information was relayed to Denice in Palliative Care. Marylou WHITTEN
--- NOTE | 2019-04-08 11:13 | DCINST_ITS ---
You will use the following diet at home:: Calorie/Carbohydrate Controlled (specify 1200, 1400, etc), Cardiac Your food should be the consistency of: Regular Discharge Activity: May Not Drive Call your doctor if you observe: Fever of 101 or Higher, Numbness or Tingling, Inability to urinate, Inability to have a bowel movement, Shortness of breath, Dizziness, Fainting spells, Swelling in the ankles, Chest pain, Increased palpitations (irregular heartbeat), Calf discomfort, Uncontrolled pain Additional Instructions: Hold baby aspirin (Aspirin 81 mg) for 1 week and then follow up PCP to evaluate for resumption if GI Bleed stable Allergies/Adverse Reactions: Allergies lisinopril Allergy (Severe, Verified 04/05/19 20:27) Angioedema nebivolol HCl [From Bystolic] Adverse Reaction (Severe, Verified 04/05/19 20:27) bradycardia BRADYCARDIA Medications to take at Discharge Cholecalciferol (Vitamin D3) [Vitamin D3] 5,000 unit PO MOWEFR 07/27/17 pantoprazole 40 mg tablet,delayed release 40 mg PO DAILY 08/21/17 Atorvastatin Calcium [Lipitor] 80 mg PO QHS 12/26/17 Carvedilol 12.5 mg PO BID 05/10/18 Insulin Lispro [Humalog] See Protocol SC TIDCM 05/10/18 Insulin Glargine [Lantus SoloStar Pen] 11 units SC QHS 05/31/18 Cyclobenzaprine HCl 5 mg PO BID 06/11/18 B Complex W-C No.20/Folic Acid [Virt-Caps Softgel] 1 mg PO UD 09/20/18 Docusate Sodium [Colace] 100 mg PO BID 02/13/19 Gabapentin [Neurontin] 100 mg PO BID 02/13/19 Gabapentin [Neurontin] 200 mg PO QHS 02/13/19 Ropinirole HCl [Requip] 0.5 mg PO QHS 02/13/19 Sevelamer Carbonate 2,400 mg PO TIDCM 02/13/19 Melatonin 3 mg PO QHS 03/14/19 Oxycodone HCl 5 mg PO BID 03/14/19 Oxycodone HCl 5 mg PO Q6H PRN PRN 04/01/19 Hydralazine HCl 100 mg PO BID #0 04/08/19 Isosorbide Mononitrate [Imdur] 60 mg PO QHS #0 04/08/19 Isosorbide Mononitrate [Imdur] 90 mg PO DAILY #0 04/08/19 Losartan Potassium [Cozaar] 50 mg PO BID #0 04/08/19 Primary Care Physician: Walter Chao MD [Primary Care Provider] - Please follow up with your Primary Care Physician in: in 1 week Test Results: Test results from this visit will be discussed in further detail at your follow- up appointment, if applicable. Please Follow Up With: Timothy Frye MD When: as scheduled in 05/06/19
--- NOTE | 2019-04-08 11:18 | PCM.DC.SUM ---
Discharge Date and Diagnosis Date of Admission: 04/05/19 Date of Discharge: 04/08/19 - Primary Discharge Diagnosis 1 Acute on recurrent GI bleed: #2 acute on chronic blood loss anemia secondary to GI bleed: - Secondary Discharge Diagnosis Chronic Problems (Last Reviewed 04/05/19 @ 21:54 by Chaim Jauregui DO) Chronic renal failure (Chronic) History of GI bleed (Chronic) History of non-ST elevation myocardial infarction (NSTEMI) (Chronic 07/05/16) Atherosclerotic heart disease of [place] coronary artery without angina pectoris (Chronic) Stented coronary artery (Chronic) Cutting Balloon and TAMI (3.0X18 mm Xience) Proximal LAD 04/18/2012; Rotational atherectomy to proximal, id and distal RCA with two overlapping 4.0 X 38 Synergy TAMI ([facility] main) Ascites (Chronic) Pancytopenia (Chronic) Other specified peripheral vascular diseases (Chronic) Afib (Chronic) Congenital coronary artery anomaly (Chronic) Bradycardia (Chronic) CAD (coronary artery disease) (Chronic) Diabetes mellitus, type II (Chronic) Hyperlipidemia (Chronic) Hypothyroidism (Chronic) Anemia in chronic kidney disease (Chronic) Hypertension (Chronic) End stage renal disease on dialysis (Chronic) Hospital Course and Treatment Imaging Results: 04/08/19 14:57 Paracentesis with US [US] Routine Operations: None, - Summary of Care Provided: T [] This is a 74 years old female patient presented again to the emergency room because of bleeding per rectum and admitted for recurrent GI bleed and she was discharged from the hospital on April 04, 2019. #1 Recurrent GI bleed: Patient was recently discharged on April 04 after extensive work-up of GI bleed. She had upper EGD revealed normal jejunum, normal duodenum, gastritis, normal esophagus, no active bleeding. Gastric biopsy was negative for H. pylori. Also, she underwent colonoscopy and found to have blood in the entire colon, diverticulosis and without source of active bleeding. Also, nuclear bleeding scan performed on April 01, 2019 and showed no evidence of acute GI bleed. Discussed with general surgeon Dr. Garcia. Admits of multiple organ failure including cirrhosis, decompensated with ascites with recurrent paracentesis once in the month, ESRD on hemodialysis, coronary artery disease status post stent, COPD patient is high risk for total colectomy in view of diffuse diverticulosis. She recommended paracentesis tomorrow and anticipate discharge. Paracentesis ordered for tomorrow along with the labs. Patient further comes for GI bleed will recommend transfer to [facility]. 04/08/2019: As mentioned above, with patient's comorbidities and multiple organ failure and high risk for surgery, patient is not candidate for total colectomy. Discussed with the surgeon. Stable for discharge home on ferrous sulfate. Patient was also tried for paracentesis today in radiology but she dropped blood pressure, systolic in 90s therefore paracentesis was canceled and brought back to the floor. On the floor her blood pressure has been twice in the interval of 1 and half hours stable 119/49, 123/51. Heart rate in 50s. Pulse ox 94% on room air. Respiratory rate 18. Patient hemodynamically stable. Advised outpatient paracentesis and is scheduled on 04/10/2019. Follow-up with PCP. #2 acute on chronic blood loss anemia: During her recent admission, she received a total of 3 units of packed RBCs and upon discharge, hemoglobin was 9.6 g/dL. During this admission, H&H is stable. Patient is not on antiplatelet/anticoagulant, NSAID medication. 04/08/2019: H&H shows slight and gradual drop from 10.4/30 3-8 0.5/27.4. #3 ESRD on hemodialysis: On hemodialysis on Mondays, Wednesdays and Fridays. Nephrology stated about clinical progress #4 type 2 diabetes mellitus: Blood sugar stable, continue Lantus nightly, insulin sliding scale. Patient has reasonable glucose control. #5 CAD status post stents: Stable, continue statins, Coreg, isosorbide mononitrate and losartan. Aspirin on hold #6 hypertension: Blood pressure stable, continue Coreg, hydralazine, nitrate and losartan. #7 chronic back pain: Continue OxyIR PRN. #8 DVT prophylaxis: SCDs. Discharge medication reconciliation done. Discharge follow-up instructions completed. Discharge process discussed with the patient and all questions were answered to patient's satisfaction. Follow-up PCP. Patient is very high risk for any operative ordered further work-up therefore recommended tertiary care center if patient further comes to ER Total time spent, exact 35 minutes on discharge meds reconciliation, examination, review of imaging and blood test and discussion with the patient on follow-up instructions. Subjective: Seen and examined. Patient is on baseline. Has chronic shortness of breath. Also has chronic cough. No fever or chills. Respiratory panel negative. Objective: General: Alert, Oriented x3, Cooperative HEENT: Atraumatic, PERRLA, EOMI, Normocephalic Oral: Dry Mucosa Neck: Supple, No JVD, Negative Carotid Bruits Lungs: No rhonchi, No wheeze, No rales, Air entry is diminished. Cardiovascular: Regular rate, No murmurs Abdomen: Bowel Sounds Present, Soft, Non Tender, Distended - ascites and paracentesis every month last one in February. Extremities: Capillary Refill Less than 3 Seconds, Edema Skin: No rashes, No breakdown Musculoskeletal: No Tenderness to Palpation of Joints or Extremities, Arthritic Changes Neurological: Cranial nerves II-XII grossly intact Psych/Mental Status: Normal Affect, Appropriate - Physical Exam Vitals/I&O's: Vital Signs Temp Pulse Resp BP Pulse Ox 97.6 F L 79 18 112/60 94 04/08/19 08:30 04/08/19 08:38 04/08/19 08:30 04/08/19 08:30 04/08/19 08:30 Oxygen Flow Rate (L/min) 2 Oxygen Delivery Method Room Air Weight: 207 lb 10.807 oz Body Mass Index (BMI) 34.3 Finger Stick Blood Glucose 99 Intake and Output for Last 24 Hours 04/06/19 04/07/19 04/08/19 23:59 23:59 23:59 Intake Total 1195 / 1195 1450 / 1950 750 / 750 Output Total 0 / 0 Balance 1195 / 1195 1450 / 1950 750 / 750 Microbiology Past 72 Hours 04/07/19 10:45 Mucosa - Nasopharyngeal Respiratory Panel (PCR) - Final Laboratory Results 04/07/19 11:05: POC Glucose 56 L 04/07/19 11:34: POC Glucose 69 L 04/07/19 11:56: POC Glucose 68 L 04/07/19 12:30: POC Glucose 122 H 04/07/19 16:32: POC Glucose 123 H 04/07/19 21:43: POC Glucose 112 H 04/08/19 05:30: Sodium 127 L, Potassium 4.9, Chloride 93 L, Carbon Dioxide 29.0, Anion Gap 5, BUN 19 H, Creatinine 3.47 H, Estim Creat Clear Calc 12.41, Est GFR (MDRD) Af Amer 17 L, Est GFR (MDRD) Non-Af 14 L, BUN/Creatinine Ratio 5.5 L, Glucose 99, Calcium 7.3 L, Total Bilirubin 0.50, AST 21, ALT 7 L, Alkaline Phosphatase 101, Total Protein 6.3 L, Albumin 2.1 L, Globulin 4.2, Albumin/Globulin Ratio 0.5 L 04/08/19 05:30: PT 17.3 H, INR 1.4, APTT 42.8 H 04/08/19 05:30: WBC 3.1 L, RBC 2.84 L, Hgb 8.5 L, Hct 27.4 L, MCV 96.5, MCH 29.9, MCHC 31.0 L, RDW Std Deviation 59.5 H, RDW Coeff of Susan 17.1 H, Plt Count 79 L, MPV 9.5, Immature Gran % (Auto) 0.000, Neut % (Auto) 45.0 L, Lymph % (Auto) 39.9, [place] % (Auto) 10.5 H, Eos % (Auto) 3.3, Baso % (Auto) 1.3 H, Absolute Neuts (auto) 1.4 L, Absolute Lymphs (auto) 1.22, Nucleated RBC % 0, Platelet Estimate MOD DEC 04/08/19 06:30: POC Glucose 90 Current Medications Acetaminophen (Tylenol) 650 mg PO Q6H PRN PRN PRN Reason: Pain Score 1-3/Temp > 100.7 F Last Admin: 04/07/19 13:54 Dose: 650 mg Documented by: Atorvastatin Calcium (Lipitor) 80 mg PO QHS [facility] Last Admin: 04/07/19 21:30 Dose: 80 mg Documented by: Carvedilol (Coreg) 12.5 mg PO BID [facility] Last Admin: 04/08/19 08:38 Dose: 12.5 mg Documented by: Cholecalciferol (Vitamin D) 5,000 unit PO MoWeFr@1000 [facility] Last Admin: 04/08/19 08:37 Dose: 5,000 unit Documented by: Cyclobenzaprine HCl (Cyclobenzaprine Hcl) 5 mg PO BID [facility] Last Admin: 04/08/19 08:37 Dose: 5 mg Documented by: Dextrose (D50w Syringe) 0 gm IV X1 PRN; Protocol PRN Reason: Hypoglycemia Last Admin: 04/07/19 12:04 Dose: 12.5 gm Documented by: Docusate Sodium (Colace) 100 mg PO BID [facility] Last Admin: 04/08/19 08:37 Dose: 100 mg Documented by: Gabapentin (Neurontin) 100 mg PO BID@0600,1400 [facility] Last Admin: 04/08/19 06:02 Dose: 100 mg Documented by: Gabapentin (Neurontin) 200 mg PO QHS [facility] Last Admin: 04/07/19 21:30 Dose: 200 mg Documented by: Glucagon () 1 mg IM .X1 PRN PRN Reason: Hypoglycemia Guaifenesin (Robitussin) 10 ml PO Q6H PRN PRN PRN Reason: COUGH Last Admin: 04/07/19 21:29 Dose: 10 ml Documented by: Hydralazine HCl (Apresoline) 50 mg PO BID [facility] Sodium Chloride () 250 mls @ 15 mls/hr IV .[id number] PRN PRN Reason: Saline Flush Insulin Glargine (Lantus (Bkc)) 11 units SC BREAKFAST [facility] Last Admin: 04/08/19 08:20 Dose: Not Given Documented by: Insulin Glargine (Lantus (Bkc)) 5 units SC QHS [facility] Last Admin: 04/07/19 21:43 Dose: Not Given Documented by: Insulin Human Lispro (Humalog Kwikpen (Bk)) 0 unit SC TIDAC [facility]; Protocol Last Admin: 04/08/19 06:33 Dose: Not Given Documented by: Isosorbide Mononitrate (Imdur) 90 mg PO DAILY [facility] Last Admin: 04/08/19 08:37 Dose: 90 mg Documented by: Isosorbide Mononitrate (Imdur) 60 mg PO QHS [facility] Last Admin: 04/07/19 21:30 Dose: 60 mg Documented by: Losartan Potassium (Cozaar) 50 mg PO BID [facility] Last Admin: 04/08/19 08:38 Dose: 50 mg Documented by: Melatonin (Melatonin) 3 mg PO QHS [facility] Last Admin: 04/07/19 21:30 Dose: 3 mg Documented by: Multivitamins (Allbee W/C Caplet, Thera B Comp/C) [facility] Last Admin: 11/19/19 08:41 Dose: 1 capsule Documented by: Ondansetron HCl (Zofran) 4 mg IV Q8H PRN PRN PRN Reason: NAUSEA/VOMITING Oxycodone HCl (Oxyir) 5 mg PO Q4H PRN PRN PRN Reason: Pain Score 6-10/10 Last Admin: 04/07/19 20:22 Dose: 5 mg Documented by: Pantoprazole Sodium (Protonix) 40 mg PO DAILY [facility] Last Admin: 04/08/19 08:38 Dose: 40 mg Documented by: Pramipexole Dihydrochloride (Mirapex) 0.25 mg PO QHS [facility] Last Admin: 04/07/19 21:30 Dose: 0.25 mg Documented by: Sevelamer Carbonate (Renvela) 2,[facility] Last Admin: 04/08/19 08:36 Dose: 2,400 mg Documented by: Sodium Chloride () 10 - 40 ml IV UD PRN PRN Reason: SALINE FLUSH Last Admin: 04/08/19 08:36 Dose: 10 ml Documented by: Discharge Activity: May Not Drive Call your doctor if you observe: Fever of 101 or Higher, Numbness or Tingling, Inability to urinate, Inability to have a bowel movement, Shortness of breath, Dizziness, Fainting spells, Swelling in the ankles, Chest pain, Increased palpitations (irregular heartbeat), Calf discomfort, Uncontrolled pain Home Medications: Medications to take at Discharge Cholecalciferol (Vitamin D3) [Vitamin D3] 5,000 unit PO MOWEFR 07/27/17 pantoprazole 40 mg tablet,delayed release 40 mg PO DAILY 08/21/17 Atorvastatin Calcium [Lipitor] 80 mg PO QHS 12/26/17 Carvedilol 12.5 mg PO BID 05/10/18 Insulin Lispro [Humalog] See Protocol SC TIDC 05/10/18 Insulin Glargine [Lantus SoloStar Pen] 11 units SC QHS 05/31/18 Cyclobenzaprine HCl 5 mg PO BID 06/11/18 B Complex W-C No.20/Folic Acid [Virt-Caps Softgel] 1 mg PO UD 09/20/18 Docusate Sodium [Colace] 100 mg PO BID 02/13/19 Gabapentin [Neurontin] 100 mg PO BID 02/13/19 Gabapentin [Neurontin] 200 mg PO QHS 02/13/19 Ropinirole HCl [Requip] 0.5 mg PO QHS 02/13/19 Sevelamer Carbonate 2,400 mg PO TIDCM 02/13/19 Melatonin 3 mg PO QHS 03/14/19 Oxycodone HCl 5 mg PO BID 03/14/19 Oxycodone HCl 5 mg PO Q6H PRN PRN 04/01/19 Hydralazine HCl 100 mg PO BID #0 04/08/19 Isosorbide Mononitrate [Imdur] 60 mg PO QHS #0 04/08/19 Isosorbide Mononitrate [Imdur] 90 mg PO DAILY #0 04/08/19 Losartan Potassium [Cozaar] 50 mg PO BID #0 04/08/19 Other Amb Orders: Paracentesis with US [US] Time Frame: 04/10/19, Facility: [facility], Location: Radiology, [facility] Primary Care Physician: Walter Chao MD [Primary Care Provider] - Please follow up with your Primary Care Physician in: in 1 week Please Follow Up With: Timothy Frye MD When: as scheduled in 05/06/19 Medical Necessity - Tobacco Use Smoking Status: Former smoker Meaningful Use Info Meaningful Use Diagnoses (Choose all that apply): None applicable Code Visit Inpatient E&M: 90448 Disch Hosp
--- NOTE | 2019-04-08 11:21 | PCM.PN.REN ---
Subjective: pt cant recall if had any bloody stools today. Scheduled for paracentesis today. hgb stable at 8.5g. Poor surgical candidate due to comorbid conditions. - Physical Exam Vitals/I&O's: Vital Signs Temp Pulse Resp BP Pulse Ox 97.6 F L 79 18 112/60 94 04/08/19 08:30 04/08/19 08:38 04/08/19 08:30 04/08/19 08:30 04/08/19 08:30 Oxygen Flow Rate (L/min) 2 Oxygen Delivery Method Room Air Weight: 94.2 kg Body Mass Index (BMI) 34.3 Finger Stick Blood Glucose 99 Intake and Output for Last 24 Hours 04/06/19 04/07/19 04/08/19 23:59 23:59 23:59 Intake Total 1195 / 1195 1450 / 1950 750 / 750 Output Total 0 / 0 Balance 1195 / 1195 1450 / 1950 750 / 750 Abdomen: Soft, Non Tender, Distended - ascites Extremities: No edema Microbiology Past 72 Hours 04/07/19 10:45 Mucosa - Nasopharyngeal Respiratory Panel (PCR) - Final Laboratory Results 04/07/19 11:05: POC Glucose 56 L 04/07/19 11:34: POC Glucose 69 L 04/07/19 11:56: POC Glucose 68 L 04/07/19 12:30: POC Glucose 122 H 04/07/19 16:32: POC Glucose 123 H 04/07/19 21:43: POC Glucose 112 H 04/08/19 05:30: Sodium 127 L, Potassium 4.9, Chloride 93 L, Carbon Dioxide 29.0, Anion Gap 5, BUN 19 H, Creatinine 3.47 H, Estim Creat Clear Calc 12.41, Est GFR (MDRD) Af Amer 17 L, Est GFR (MDRD) Non-Af 14 L, BUN/Creatinine Ratio 5.5 L, Glucose 99, Calcium 7.3 L, Total Bilirubin 0.50, AST 21, ALT 7 L, Alkaline Phosphatase 101, Total Protein 6.3 L, Albumin 2.1 L, Globulin 4.2, Albumin/Globulin Ratio 0.5 L 04/08/19 05:30: PT 17.3 H, INR 1.4, APTT 42.8 H 04/08/19 05:30: WBC 3.1 L, RBC 2.84 L, Hgb 8.5 L, Hct 27.4 L, MCV 96.5, MCH 29.9, MCHC 31.0 L, RDW Std Deviation 59.5 H, RDW Coeff of Susan 17.1 H, Plt Count 79 L, MPV 9.5, Immature Gran % (Auto) 0.000, Neut % (Auto) 45.0 L, Lymph % (Auto) 39.9, [place] % (Auto) 10.5 H, Eos % (Auto) 3.3, Baso % (Auto) 1.3 H, Absolute Neuts (auto) 1.4 L, Absolute Lymphs (auto) 1.22, Nucleated RBC % 0, Platelet Estimate MOD 04/08/19 06:30: POC Glucose 90 Current Medications Acetaminophen (Tylenol) 650 mg PO Q6H PRN PRN PRN Reason: Pain Score 1-3/Temp > 100.7 F Last Admin: 04/07/19 13:54 Dose: 650 mg Documented by: Atorvastatin Calcium (Lipitor) 80 mg PO QHS [facility] Last Admin: 04/07/19 21:30 Dose: 80 mg Documented by: Carvedilol (Coreg) 12.5 mg PO BID [facility] Last Admin: 04/08/19 08:38 Dose: 12.5 mg Documented by: Cholecalciferol (Vitamin D) 5,000 unit PO MoWeFr@1000 [facility] Last Admin: 04/08/19 08:37 Dose: 5,000 unit Documented by: Cyclobenzaprine HCl (Cyclobenzaprine Hcl) 5 mg PO BID [facility] Last Admin: 04/08/19 08:37 Dose: 5 mg Documented by: Dextrose (D50w Syringe) 0 gm IV X1 PRN; Protocol PRN Reason: Hypoglycemia Last Admin: 04/07/19 12:04 Dose: 12.5 gm Documented by: Docusate Sodium (Colace) 100 mg PO BID [facility] Last Admin: 04/08/19 08:37 Dose: 100 mg Documented by: Gabapentin (Neurontin) 100 mg PO BID@0600,1400 [facility] Last Admin: 04/08/19 06:02 Dose: 100 mg Documented by: Gabapentin (Neurontin) 200 mg PO QHS [facility] Last Admin: 04/07/19 21:30 Dose: 200 mg Documented by: Glucagon () 1 mg IM .X1 PRN PRN Reason: Hypoglycemia Guaifenesin (Robitussin) 10 ml PO Q6H PRN PRN PRN Reason: COUGH Last Admin: 04/07/19 21:29 Dose: 10 ml Documented by: Hydralazine HCl (Apresoline) 50 mg PO BID [facility] Sodium Chloride () 250 mls @ 15 mls/hr IV .[id number] PRN PRN Reason: Saline Flush Insulin Glargine (Lantus (Bk)) 11 units SC BREAKFAST [facility] Last Admin: 04/08/19 08:20 Dose: Not Given Documented by: Insulin Glargine (Lantus (Bk)) 5 units SC QHS [facility] Last Admin: 04/07/19 21:43 Dose: Not Given Documented by: Insulin Human Lispro (Humalog Kwikpen ([facility])) 0 unit SC TIDAC [facility]; Protocol Last Admin: 04/08/19 06:33 Dose: Not Given Documented by: Isosorbide Mononitrate (Imdur) 90 mg PO DAILY [facility] Last Admin: 04/08/19 08:37 Dose: 90 mg Documented by: Isosorbide Mononitrate (Imdur) 60 mg PO QHS [facility] Last Admin: 04/07/19 21:30 Dose: 60 mg Documented by: Losartan Potassium (Cozaar) 50 mg PO BID [facility] Last Admin: 04/08/19 08:38 Dose: 50 mg Documented by: Melatonin (Melatonin) 3 mg PO QHS [facility] Last Admin: 04/07/19 21:30 Dose: 3 mg Documented by: Multivitamins (Allbee W/C Caplet, Thera B Comp/C) [facility] Last Admin: 04/08/19 08:41 Dose: 1 capsule Documented by: Ondansetron HCl (Zofran) 4 mg IV Q8H PRN PRN PRN Reason: NAUSEA/VOMITING Oxycodone HCl (Oxyir) 5 mg PO Q4H PRN PRN PRN Reason: Pain Score 6-10/10 Last Admin: 04/07/19 20:22 Dose: 5 mg Documented by: Pantoprazole Sodium (Protonix) 40 mg PO DAILY [facility] Last Admin: 04/08/19 08:38 Dose: 40 mg Documented by: Pramipexole Dihydrochloride (Mirapex) 0.25 mg PO QHS [facility] Last Admin: 04/07/19 21:30 Dose: 0.25 mg Documented by: Sevelamer Carbonate (Renvela) 2,400 mg PO TIDCM [facility] Last Admin: 04/08/19 08:36 Dose: 2,400 mg Documented by: Sodium Chloride () 10 - 40 ml IV UD PRN PRN Reason: SALINE FLUSH Last Admin: 04/08/19 08:36 Dose: 10 ml Documented by: Medical Necessity - Tobacco Use Smoking Status: Former smoker Assessment/Plan All Active Problems (Last Reviewed 04/05/19 @ 21:54 by Chaim Jauregui DO) GI bleed (Acute) Anemia due to acute blood loss (Acute) 1. ESRD HD MWF 2. GI bleed hgb stable. Poor surgical candidate 3. Liver cirrhosis with ascites. Scheduled for paracentesis 4. HTN adjust BP meds for low BP as we try to challenge fluid removal on dialysis and due to liver cirrhosis 5. DMT2 primary service mgmt 6. Hyponatremia due to fluid overload. Remove fluid as tolerated on dialysis 7. Hyperkalemia resolved DW hospitalist
--- NOTE | 2019-04-08 11:27 | PHA.DC.MR ---
Pharmacy Service has performed discharge medication reconciliation for this patient. Home Medications Cholecalciferol (Vitamin D3) [Vitamin D3] 5,000 unit PO MOWEFR 07/27/17 pantoprazole 40 mg tablet,delayed release 40 mg PO DAILY 08/21/17 Atorvastatin Calcium [Lipitor] 80 mg PO QHS 12/26/17 Carvedilol 12.5 mg PO BID 05/10/18 Insulin Lispro [Humalog] See Protocol SC TIDCM 05/10/18 Insulin Glargine [Lantus SoloStar Pen] 11 units SC QHS 05/31/18 Cyclobenzaprine HCl 5 mg PO BID 06/11/18 B Complex W-C No.20/Folic Acid [Virt-Caps Softgel] 1 mg PO UD 09/20/18 Docusate Sodium [Colace] 100 mg PO BID 02/13/19 Gabapentin [Neurontin] 100 mg PO BID 02/13/19 Gabapentin [Neurontin] 200 mg PO QHS 02/13/19 Ropinirole HCl [Requip] 0.5 mg PO QHS 02/13/19 Sevelamer Carbonate 2,400 mg PO TIDCM 02/13/19 Melatonin 3 mg PO QHS 03/14/19 Oxycodone HCl 5 mg PO BID 03/14/19 Oxycodone HCl 5 mg PO Q6H PRN PRN 04/01/19 Hydralazine HCl 100 mg PO BID #0 04/08/19 Isosorbide Mononitrate [Imdur] 60 mg PO QHS #0 04/08/19 Isosorbide Mononitrate [Imdur] 90 mg PO DAILY #0 04/08/19 Losartan Potassium [Cozaar] 50 mg PO BID #0 04/08/19 The patient's discharge medication list was reviewed for discrepancies and discrepancies were resolved.
[2019-04-08 11:51] LABS: Bedside Glucose 107 mg/dL (70-110)
--- NOTE | 2019-04-08 13:10 | NURSING ---
Upon initial B/P measurement, EDIN Singer looked up patient's previous b/p's which have had a wide range. Pt's B/P taken again found to be 82/46. EDIN Singer consulted Dr. Mckay who stated the paracentesis cannot be done with that low of a blood pressure. EDIN Singer took one final B/P which was 78/45, then called EDIN Brian and told her procedure cannot be done today due to pt's low b/p. Pt aware.
--- NOTE | 2019-04-08 13:10 | NURSING ---
Unable to complete paracentesis d/t BP. Back up to floor and BP 119/49, HR 58. Patient denies lightheadedness, dizziness.
--- NOTE | 2019-04-08 14:53 | CASEMGMT ---
Patient is ready for discharge back to [facility]. Faxed orders to [facility]. Patient does not have anyone that can pick her up this time. MARGO spoke with Lynda at [facility] and they can pick patient up between 330 and 4p. MARGO notified patient. She said she is having troubles breathing. MARGO notified her RN and chargeback analyst. Patient asked if her paracentesis could be arranged for . MARGO told her we can work on this. MARGO spoke with chargeback analyst and she will work on it. MARGO notified RN and medical office secretary of d/c roller picker time. Plan: d/c back to [facility] at [place] under intermediate level of care. Marylou RAMIREZ MSW
== END 2019-04-08 11:15 | disposition skilled nursing facility (03) ==
LOC: ED 20:33 → PCU 21:58
PROVIDERS: Hospitalist; Internal Medicine Nephrology; Emergency Provider Emergency Medicine; Family Provider Family Medicine; PCP Family Medicine; Visit Provider Internal Medicine
DX: K92.2 Gastrointestinal hemorrhage, unspecified (principal); D50.0 Iron deficiency anemia secondary to blood loss (chronic); E11.22 Type 2 diabetes mellitus with diabetic chronic kidney disease; N18.6 End stage renal disease; I25.2 Old myocardial infarction; E78.5 Hyperlipidemia, unspecified; E03.9 Hypothyroidism, unspecified; I25.10 Atherosclerotic heart disease of native coronary artery without angina pectoris; I48.20 Chronic atrial fibrillation, unspecified; D63.1 Anemia in chronic kidney disease; I12.0 Hypertensive chronic kidney disease with stage 5 chronic kidney disease or end stage renal disease; R18.8 Other ascites; G47.33 Obstructive sleep apnea (adult) (pediatric); G89.29 Other chronic pain; E87.5 Hyperkalemia; E87.1 Hypo-osmolality and hyponatremia; K74.60 Unspecified cirrhosis of liver; Z99.2 Dependence on renal dialysis; Z79.899 Other long term (current) drug therapy; Z79.4 Long term (current) use of insulin; Z79.82 Long term (current) use of aspirin; Z87.891 Personal history of nicotine dependence
CPT/HCPCS: 36415; 80048; 80053; 80069; 82962; 83605; 85014; 85018; 85025; 85610; 85730; 86850; 86900; 86901; 87633; 90937; 96361; 96374; 97802; 99218; 99285; J7030; A4216; G0257; G0378

== ENCOUNTER → 2019-04-10 12:19 | Outpatient (CLI) | payer MEDICARE, SELFPAY ==
[2018-06-11 11:00] VITALS: BMI 27.1
[2019-04-08 14:53] VITALS: BMI 35.5
--- NOTE | 2019-04-10 12:22 | US_ITS ---
PROCEDURE: Ultrasound guided paracentesis. DATE OF EXAMINATION: April 10, 2019. INDICATION: Female, 74 years old. Ascites. PHYSICIAN: Eric Mckay M.D. TECHNIQUE: The risks, benefits, and alternatives to the procedure were explained to the patient. The specific risks of bleeding, infection, and damage to bowel were detailed and accepted. Witnessed informed consent was obtained. The abdomen was ultrasonographically surveyed. An appropriate pocket of fluid was identified at the right lower quadrant. The skin were cleaned and prepped in the usual sterile fashion. Using ultrasound guidance, the peritoneal cavity was accessed with a 5-Montenegrin paracentesis needle/catheter system. The trocar was removed. A total of 4950 ml of ron-colored fluid were removed from the peritoneal cavity. The catheter was removed and a sterile dressing was applied. The procedure was well tolerated. US/Paracentesis with US IMPRESSION: Ultrasound guided paracentesis. Electronically Signed: Eric Mckay, at 14:55 EST , Service support ,
[2019-04-10 12:36] VITALS: BP 159/63; BP 169/52; BP 170/58; BP 176/71; PULSE 69; PULSE 74; PULSE 76; PULSE 77; RESP 16; RESP 18; O2SAT 100; O2SAT 99
== END ==
PROVIDERS: Family Provider Family Medicine; PCP Family Medicine; Referring Provider Family Medicine; Visit Provider Family Medicine
DX: R18.8 Other ascites (principal)
CPT/HCPCS: 49083

== ENCOUNTER → 2019-04-22 13:12 | Outpatient (CLI) | payer MEDICARE, SELFPAY ==
[2018-06-11 11:00] VITALS: BMI 27.1
[2019-04-08 14:53] VITALS: BMI 35.5
--- NOTE | 2019-04-22 13:17 | US_ITS ---
PROCEDURE: Ultrasound guided paracentesis. DATE OF EXAMINATION: April 22, 2019. INDICATION: Female, 74 years old. Ascites. PHYSICIAN: Eric Mckay M.D. TECHNIQUE: The risks, benefits, and alternatives to the procedure were explained to the patient. The specific risks of bleeding, infection, and damage to bowel were detailed and accepted. Witnessed informed consent was obtained. The abdomen was ultrasonographically surveyed. An appropriate pocket of fluid was identified at the right lower quadrant. The skin were cleaned and prepped in the usual sterile fashion. Using ultrasound guidance, the peritoneal cavity was accessed with a 5-Italian paracentesis needle/catheter system. The trocar was removed. A total of 4300 ml of ron-colored fluid were removed from the peritoneal cavity. The catheter was removed and a sterile dressing was applied. The procedure was well tolerated. US/Paracentesis with US IMPRESSION: Ultrasound guided paracentesis. Electronically Signed: Eric Mckay, at 14:52 EST , Service support ,
[2019-04-22 13:44] VITALS: BP 145/78; BP 151/54; BP 152/62; PULSE 60; PULSE 72; RESP 16; O2SAT 100; O2SAT 97
== END ==
PROVIDERS: Family Provider Family Medicine; PCP Family Medicine; Referring Provider Family Medicine; Visit Provider Family Medicine
DX: R18.8 Other ascites (principal)
CPT/HCPCS: 49083

== ENCOUNTER → 2019-05-06 07:55 | Outpatient (CLI) | payer MEDICARE, SELFPAY ==
[2018-06-11 11:00] VITALS: BMI 27.1
[2019-04-08 14:53] VITALS: BMI 35.5
--- NOTE | 2019-05-06 07:59 | US_ITS ---
PROCEDURE: Ultrasound guided paracentesis. DATE OF EXAMINATION: May 06, 2019. INDICATION: Female, 74 years old. Ascites. PHYSICIAN: Eric Mckay M.D. TECHNIQUE: The risks, benefits, and alternatives to the procedure were explained to the patient. The specific risks of bleeding, infection, and damage to bowel were detailed and accepted. Witnessed informed consent was obtained. The abdomen was ultrasonographically surveyed. An appropriate pocket of fluid was identified at the right lower quadrant. The skin were cleaned and prepped in the usual sterile fashion. Using ultrasound guidance, the peritoneal cavity was accessed with a 5-Slovenian paracentesis needle/catheter system. The trocar was removed. A total of 4550 ml of ron-colored fluid were removed from the peritoneal cavity. The catheter was removed and a sterile dressing was applied. The procedure was well tolerated. US/Paracentesis with US IMPRESSION: Ultrasound guided paracentesis. Electronically Signed: Eric Mckay, at 9:11 EST , Service support ,
[2019-05-06 08:31] VITALS: BP 119/48; BP 125/50; PULSE 61; PULSE 67; RESP 16; O2SAT 99
--- NOTE | 2019-05-06 09:42 | NURSING ---
REPORT CALLED TO [facility] [place]. MADE AWARE OF PT'S INCREASED EDEMA IN EXTREMITIES.
== END ==
PROVIDERS: Family Provider Family Medicine; PCP Family Medicine; Referring Provider Family Medicine; Visit Provider Family Medicine
DX: R18.8 Other ascites (principal)
CPT/HCPCS: 49083

== ENCOUNTER 2019-05-09 11:30 | Emergency (ER) | payer MEDICARE, SELFPAY ==
[2018-06-11 11:00] VITALS: BMI 27.1
[2019-04-08 14:53] VITALS: BMI 35.5
[2019-05-09 11:32] VITALS: BP 127/50; PULSE 40; RESP 20; TEMP 36.4; O2SAT 98; BMI 38.6
[2019-05-09] MEDS: Morphine 4 MG/ML Syringe IV (12:24)
--- NOTE | 2019-05-09 12:24 | RAD_ITS ---
STUDY: X-RAY - LEFT SHOULDER REASON FOR EXAM: Female, 74 years old. PAIN S/P FALL TECHNIQUE: 2 view(s) of the shoulder. COMPARISON: None. FINDINGS: There is moderate degenerative arthrosis of the glenohumeral articulation. There is degenerative arthrosis of the acromioclavicular joint without inferior osseous spur formation. There is decreased distance between the humeral head and acromion suggestive of early rotator cuff disease. Normal humeral head and visualized proximal humerus. The soft tissue structures are unremarkable. Normal visualized pulmonary apex. RAD/Shoulder min 2 Views IMPRESSION: Degenerative changes. Findings suggestive of rotator cuff disease. Electronically Signed: Eric Mckay, at 12:50 EST , Service support ,
--- NOTE | 2019-05-09 13:00 | ED.VISSUMM ---
- ER Visit Summary Date of Service: 05/09/19 Chief Complaint: Fall History of Present Illness: The patient is a 74 F who presents with left shoulder pain that occurred after a fall today. Patient states she lost her balance and fell onto her left side. Patient states her pain is aching. Patient states the pain is worse with any movement. Patient denies any paresthesias or weakness. Patient denies any head injury or loss of consciousness. Patient denies any other injuries. Physical Examination: Vital signs are stable. Patient is afebrile. Patient is in no acute distress. Musculoskeletal exam reveals tenderness over the left shoulder. Range of motion was limited in all motions of the left shoulder secondary to pain. Patient has an AV fistula in her left upper arm. There is a good palpable thrill noted. Capillary refill is less than 2 seconds in all digits. Strength is 5/5 in the radial, median, and ulnar areas. There are no sensory deficits noted. Test Results: X-rays of the left shoulder were obtained. There is no acute fracture or dislocation. These were interpreted by the radiologist and reviewed by myself. Emergency Department Course and Treatment: Patient was given a dose of morphine here. Patient was given a sling for her left upper extremity. Patient was instructed to follow-up with her primary care physician in 5 to 7 days. Patient was instructed to continue dialysis. Patient understood and was agreeable with the plan. All questions were answered. Disposition: Discharge home Impression: Left shoulder sprain This note was generated with [employer] dictation software. It may contain incorrect words, spelling, and punctuation that were not noted in review of the chart prior to signing ED Disposition - Plan for ED Patient: Disposition: Home or Assisted Living Diagnosis: Sprain of left shoulder Instructions: Shoulder Sprain Referrals: Walter Chao MD [Primary Care Provider] - 5-7 Days
[2019-05-09 13:42] VITALS: BP 131/61; PULSE 51; RESP 12; O2SAT 95
[2019-05-09 14:07] VITALS: RESP 12
== END 2019-05-09 14:46 | disposition home or self-care (01) ==
PROVIDERS: Emergency Provider Emergency Medicine; Family Provider Family Medicine; PCP Family Medicine
DX: S43.402A Unspecified sprain of left shoulder joint, initial encounter (principal); W19.XXXA Unspecified fall, initial encounter; Y93.9 Activity, unspecified; Y92.9 Unspecified place or not applicable; Y99.9 Unspecified external cause status; Z79.4 Long term (current) use of insulin; Z79.899 Other long term (current) drug therapy
CPT/HCPCS: 73030; 96374; 99285; A4216

== ENCOUNTER 2019-05-13 13:11 | Inpatient (IN) | payer MEDICARE, SELFPAY ==
[2018-06-11 11:00] VITALS: BMI 27.1
[2019-05-13 12:40] VITALS: BP 151/67; PULSE 71; RESP 18; TEMP 36.7; O2SAT 99; BMI 37.1
[2019-05-13 13:22] VITALS: BMI 37.2
[2019-05-13 13:41] LABS: Bedside Glucose 126 mg/dL (70-110)
[2019-05-13] MEDS: HYDROmorphone 0.5 MG/0.5 ML SYRINGE IV ×2 (15:24→21:30)
[2019-05-13] MEDS: 0.9% Saline Lock 10 ML Syringe IV ×2 (15:40→21:30)
--- NOTE | 2019-05-13 17:25 | HP.PCM_ITS ---
Problem List (1) Closed left scapular fracture Status: Acute Qualifiers: Encounter type: initial encounter Scapula location: glenoid fossa Fracture alignment: nondisplaced Qualified Code(s): S42.145A - Nondisplaced fracture of glenoid cavity of scapula, left shoulder, initial encounter for closed fracture History of Present Illness Date of Admission: 05/13/19 Chief Complaint: Left scapular fracture The patient is a 74 year old F who was seen in the emergency room at [facility] today after sustaining a fall at home, patient states she landed on her left shoulder area and has severe pain. Patient had a similar fall on 05/09/2019 and was seen in the emergency room at [facility], at that time a fracture was not diagnosed. Patient complained that she is not able to do ADLs at home and she is not able to use her left arm due to pain in her left shoulder blade. Patient was directly admitted to [place] [address] for left scapular fracture, orthopedic surgery will not be consulted due to the fact that this is a nonsurgical fracture. Patient will be seen by PT and OT and will need temporary placement in a assisted facility Past Medical History Past Medical History (Chronic Problems): Chronic Problems (Last Updated 04/30/19 @ 13:55 by Sarah Mason) Chronic renal failure (Chronic) History of GI bleed (Chronic) History of non-ST elevation myocardial infarction (NSTEMI) (Chronic 07/05/16) Atherosclerotic heart disease of [place] coronary artery without angina pectoris (Chronic) Stented coronary artery (Chronic) Cutting Balloon and TAMI (3.0X18 mm Xience) Proximal LAD 04/18/2012; Rotational atherectomy to proximal, id and distal RCA with two overlapping 4.0 X 38 Synergy TAMI ([facility] main) Ascites (Chronic) Pancytopenia (Chronic) Other specified peripheral vascular diseases (Chronic) Afib (Chronic) Congenital coronary artery anomaly (Chronic) Bradycardia (Chronic) Diabetes mellitus, type II (Chronic) Hyperlipidemia (Chronic) Hypothyroidism (Chronic) Anemia in chronic kidney disease (Chronic) Hypertension (Chronic) End stage renal disease on dialysis (Chronic) Medical History: Medical History (Last Updated 04/30/19 @ 13:55 by Sarah Mason) History of GI bleed (Chronic) Z87.19 History of non-ST elevation myocardial infarction (NSTEMI) (Chronic) Onset Date: 07/05/16 I25.2 Atherosclerotic heart disease of [place] coronary artery without angina pectoris (Chronic) I25.10 Ascites (Chronic) R18.8 Pancytopenia (Chronic) D61.818 Other specified peripheral vascular diseases (Chronic) I73.89 Afib (Chronic) I48.91 Congenital coronary artery anomaly (Chronic) Q24.5 Bradycardia (Chronic) R00.1 Diabetes mellitus, type II (Chronic) E11.9 Hyperlipidemia (Chronic) E78.5 Hypothyroidism (Chronic) E03.9 Anemia in chronic kidney disease (Chronic) N18.9, D63.1 Hypertension (Chronic) I10 End stage renal disease on dialysis (Chronic) N18.6, 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 History of hysterectomy Z90.710 Skin cancer C44.90 mouth/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, 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 Allergies lisinopril Allergy (Severe, Verified 05/09/19 11:31) Angioedema nebivolol HCl [From Bystolic] Adverse Reaction (Severe, Verified 05/09/19 11:31) bradycardia BRADYCARDIA Home Medications: Ambulatory Orders Medication Instructions Recorded Cholecalciferol (Vitamin D3) 5,000 unit PO MOWEFR 07/27/17 [Vitamin D3] pantoprazole 40 mg tablet,delayed 40 mg PO DAILY 08/21/17 release Atorvastatin Calcium [Lipitor] 80 mg PO QHS 12/26/17 Carvedilol 12.5 mg PO BID 05/10/18 Insulin Lispro [Humalog] See Protocol SUBCUT TIDCM 05/10/18 Insulin Glargine [Lantus SoloStar 11 units SUBCUT QHS 05/31/18 Pen] Cyclobenzaprine HCl 5 mg PO BID 06/11/18 B Complex W-C No.20/Folic Acid 1 mg PO UD 09/20/18 [Virt-Caps Softgel] Docusate Sodium [Colace] 100 mg PO BID 02/13/19 Gabapentin [Neurontin] 100 mg PO BID 02/13/19 Gabapentin [Neurontin] 200 mg PO QHS 02/13/19 Ropinirole HCl [Requip] 0.5 mg PO QHS 02/13/19 Sevelamer Carbonate 2,400 mg PO TIDCM 02/13/19 Oxycodone HCl 5 mg PO BID 03/14/19 Oxycodone HCl 5 mg PO Q6H PRN PRN 04/01/19 Hydralazine HCl 100 mg PO BID #0 04/08/19 Isosorbide Mononitrate [Imdur] 60 mg PO QHS #0 04/08/19 Isosorbide Mononitrate [Imdur] 90 mg PO DAILY #0 04/08/19 Losartan Potassium [Cozaar] 50 mg PO BID #0 04/08/19 Melatonin 5 mg PO QHS 05/13/19 Surgical History: Surgical History (Last Reviewed 04/30/19 @ 13:54 by Sarah Mason) Stented coronary artery (Chronic) Z95.5 Cutting Balloon and TAMI (3.0X18 mm Xience) Proximal LAD 04/18/2012; Rotational atherectomy to proximal, id and distal RCA with two overlapping 4.0 X 38 Synergy TAMI ([facility] main) History of back surgery Z98.890 LATE 70'S History of colectomy Z90.49 History of laparoscopic cholecystectomy Z90.49 History of total right knee replacement Z96.651 Hx of foot surgery Z98.890 S/P left rotator cuff repair Z98.890 history left A-V fistula Surgical History: appendectomy, cholecystectomy, hysterectomy, total knee arthroplasty, - - Left upper extremity fistula, back surgery, colon resection with history of diverticulitis, GI bleed, right knee surgery, right total knee replacement, right foot surgery, left knee surgery, left foot surgery, PCI. 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 Lives: Spouse/ Significant Other Smoking Status: Former smoker Tobacco Use: Non-smoker Alcohol: None Drugs: None - *Family History Maternal Family History: Family History (Last Reviewed 04/30/19 @ 13:54 by Sarah Mason) Sister Diabetes Heart disease Hypertension Anemia History Items: Cancer - uterine Paternal Family History: Family History (Last Reviewed 04/30/19 @ 13:54 by Sarah Mason) Sister Diabetes Heart disease Hypertension Anemia History Items: Cancer Sibling Family History: Family History (Last Reviewed 04/30/19 @ 13:54 by Sarah Masno) Sister Diabetes Heart disease Hypertension Anemia History Items: Diabetes Review of Systems Constitutional: Denies: Anorexia, Chills, Fever, Night Sweats, Malaise, Weakness, Weight Change, Fatigue Eyes: Denies: Cataracts, Conjunctivae Inflammation, Double vision, Drainage, Redness, Vision Change HEENT: Denies: Difficulty Swallowing, Dysphasia, Ear Pain, Eye Pain, Hearing Changes, Nasal bleeding, Nasal Congestion, Post Nasal Drip Cardiovascular: Denies: Chest Pain, Claudication, Chest Pressure, Chest Tightness, Edema, Palpitations, Paroxysmal Noc. Dyspnea Respiratory: Denies: Cough, Hemoptysis, Pleuritic Pain, Shortness of breath at rest, Shortness of breath upon exertion, Sputum production Gastrointestinal: Denies: Abdominal Pain, Constipation, Diarrhea, Hematemesis, Hematochezia, Nausea, Melena, Vomiting Genitourinary: Denies: Dysuria, Frequency, Hematuria, Hesitancy, Urgency Gynecological: Denies: Breast symptoms Musculoskeletal: Reports: Arm Pain - Left arm pain, Shoulder Pain - Left shoulder pain. Denies: Foot Pain, Hand Pain, Joint Pain, Joint stiffness, Joint swelling, Leg Pain Skin: Denies: Dryness, Pruritis, Rash Neurological: Denies: Blurred vision, Double vision, Slurred speech, Difficulty swallowing, Focal weakness, Numbness, Tingling Psychiatric: Denies: Anxiety, Depression, Homicidal Ideations, Suicidal Ideations Endocrine: Denies: Change in Body Habitus, Heat/ Cold Intolerance, Polydipsia, Polyuria Hematologic/ Lymphatic: Denies: Adenopathy, Anemia, Easy Bruising, Easy Bleeding, Petechiae, Purpura VTE Information - Inpt Only VTE Present on Admission: No VTE Mechan Device Prophylaxis: None VTE Pharm Prophylaxis ordered?: Yes Patient Problems: Active and Suspected Problems (Last Updated 04/30/19 @ 13:55 by Sarah Mason) Closed left scapular fracture (Acute) - Physical Exam Vitals/I&O's: Vital Signs Temp Pulse Resp BP Pulse Ox 98.1 F 71 18 151/67 H 99 05/13/19 12:40 05/13/19 12:40 05/13/19 12:40 05/13/19 12:40 05/13/19 12:40 Oxygen Delivery Method Room Air Weight: 101.3 kg Body Mass Index (BMI) 37.1 Finger Stick Blood Glucose 99 General: Alert, Oriented x3, Cooperative, Well developed, Well nourished HEENT: Atraumatic, PERRLA, EOMI, Normocephalic Oral: Dry Mucosa Neck: Supple, Negative Carotid Bruits, Trachea Midline, Thyroid Normal Size and Texture Lungs: Clear to auscultation, Normal air movement, No rhonchi, No wheeze, No rales Cardiovascular: Regular rate, Regular Rhythm, Normal S1, Normal S2, No murmurs Abdomen: Bowel Sounds Present, Soft, Non Tender, Non-Distended, No hernias noted Extremities: No clubbing, No cyanosis, No edema, Capillary Refill Less than 3 Seconds Skin: No rashes, No breakdown Musculoskeletal: Tenderness - There is tenderness to palpation over the left shoulder and left scapular area Neurological: Cranial nerves II-XII grossly intact, Neuro grossly intact, Sensory exam intact to light touch and pain Psych/Mental Status: Normal Affect, Appropriate, Alert and oriented to time, place, person, mood and affect Laboratory Results 05/13/19 13:37: POC Glucose 126 H Current Medications Acetaminophen (Tylenol) 650 mg PO Q6H PRN PRN PRN Reason: Pain Score 1-3/Temp > 100.7 F Glucagon () 1 mg IM .X1 PRN PRN Reason: Hypoglycemia Heparin Sodium (Porcine) (Heparin Na) 5,000 unit SC Q12 [facility] Hydromorphone HCl (Dilaudid Inj) 0.5 mg IV Q4H PRN PRN PRN Reason: Pain Score 6-10/10 Last Admin: 05/13/19 15:24 Dose: 0.5 mg Documented by: Dextrose (Dextrose 10%-Water) 250 mls @ 999 mls/hr IV .Q16M PRN; Protocol PRN Reason: HYPOGLYCEMIA Insulin Human Lispro (Humalog Kwikpen (Bkc)) 0 unit SC ACHS [facility]; Protocol Oxycodone HCl (Oxyir) 10 mg PO Q4H PRN PRN PRN Reason: Pain Score 4-5/10 Sodium Chloride () 10 - 40 ml IV UD PRN PRN Reason: SALINE FLUSH Last Admin: 05/13/19 15:40 Dose: 10 ml Documented by: Assessment/Plan All Active Problems (Last Updated 04/30/19 @ 13:55 by Sarah Mason) Closed left scapular fracture (Acute) GI bleed (Resolved) Anemia due to acute blood loss (Resolved) #1 closed left scapular fracture-PT and OT will see the patient, she will need placement in assisted facility for inpatient rehab services #2 end-stage renal disease-patient will need dialysis today #3 generalized debility-again patient will need placement in a assisted facility #4 type 2 diabetes #5 essential hypertension #6 hypothyroidism Code Visit Inpatient E&M: 12108 Init Hosp L3
[2019-05-13 18:05] LABS: Bedside Glucose 116 mg/dL (70-110)
[2019-05-13] MEDS: Epoetin Alfa epbx 10,000 UNITS/ML 10000 UNIT IV (19:37)
[2019-05-13] MEDS: Cinacalcet HCl 30 MG Tablet PO (19:37)
[2019-05-13 21:25] VITALS: BP 126/68; PULSE 76; RESP 18; TEMP 37; O2SAT 96
[2019-05-13 21:40] LABS: Bedside Glucose 112 mg/dL (70-110)
[2019-05-13 22:13] VITALS: PULSE 80; RESP 18; TEMP 37
[2019-05-14] MEDS: Acetaminophen 325 MG Tablet 650 MG PO ×3 (00:01→15:50)
[2019-05-14 02:01] VITALS: BP 104/47; PULSE 86; RESP 18; TEMP 37.2; O2SAT 92
[2019-05-14] MEDS: oxyCODONE 5 MG Tablet 10 MG PO ×3 (06:57→15:50)
[2019-05-14 07:05] LABS: Bedside Glucose 93 mg/dL (70-110)
--- NOTE | 2019-05-14 10:05 | PCM.CONS.R ---
Consultation - Renal PCP/ Referring MD: Requesting physician: [] Primary care physician: Walter Chao MD Reason for Consultation:: ESRD HD MWF - History of Present Illness History of Present Illness: The patient is a 74 year old F with ESRD HD MWF missed dialysis treatment Sunday and Sunday (holiday schedule). She was transferred from [facility] yesterday after falling stretching for her comode. She is admitted for left scapular fracture. She has significant pain. She was just discharged from [facility]CF on Sunday. She has limited motion left arm due to pain. Patient complains she is not able to do ADLs at home. She remains debilitated. She may need further ECF placement. She has ascites requiring frequent paracentesis as outpt. Her next procedure is scheduled for tomorrow. - Allergies Allergies: Allergies lisinopril Allergy (Severe, Verified 05/09/19 11:31) Angioedema nebivolol HCl [From Bystolic] Adverse Reaction (Severe, Verified 05/09/19 11:31) bradycardia BRADYCARDIA - Current Medications Current Medications: Current Medications Acetaminophen (Tylenol) 650 mg PO Q6H PRN PRN PRN Reason: Pain Score 1-3/Temp > 100.7 F Last Admin: 05/14/19 06:57 Dose: 650 mg Documented by: Cinacalcet (Sensipar) 30 mg PO TuThSa [facility] Epoetin Melvin-epbx (Retacrit) 10,000 units IV TuThSa@1000 [facility] Glucagon () 1 mg IM .X1 PRN PRN Reason: Hypoglycemia Heparin Sodium (Porcine) (Heparin Na) 5,000 unit SC Q12 [facility] Last Admin: 05/13/19 21:30 Dose: Not Given Documented by: Hydromorphone HCl (Dilaudid Inj) 0.5 mg IV Q4H PRN PRN PRN Reason: Pain Score 6-10/10 Last Admin: 05/13/19 21:30 Dose: 0.5 mg Documented by: Dextrose (Dextrose 10%-Water) 250 mls @ 999 mls/hr IV .Q16M PRN; Protocol PRN Reason: HYPOGLYCEMIA Insulin Human Lispro (Humalog Kwikpen (Bkc)) 0 unit SC ACHS [facility]; Protocol Last Admin: 05/14/19 06:54 Dose: Not Given Documented by: Morphine Sulfate (Ms Contin) 30 mg PO BID [facility] Oxycodone HCl (Oxyir) 10 mg PO Q4H PRN PRN PRN Reason: Pain Score 4-5/10 Last Admin: 05/14/19 06:57 Dose: 10 mg Documented by: Sodium Chloride () 10 - 40 ml IV UD PRN PRN Reason: SALINE FLUSH Last Admin: 05/13/19 21:30 Dose: 10 ml Documented by: - Past Medical History Past Medical History (Chronic Problems): Chronic Problems (Last Updated 04/30/19 @ 13:55 by Sarah Mason) Chronic renal failure (Chronic) History of GI bleed (Chronic) History of non-ST elevation myocardial infarction (NSTEMI) (Chronic 07/05/16) Atherosclerotic heart disease of [place] coronary artery without angina pectoris (Chronic) Stented coronary artery (Chronic) Cutting Balloon and TAMI (3.0X18 mm Xience) Proximal LAD 04/18/2012; Rotational atherectomy to proximal, id and distal RCA with two overlapping 4.0 X 38 Synergy TAMI ([facility] main) Ascites (Chronic) Pancytopenia (Chronic) Other specified peripheral vascular diseases (Chronic) Afib (Chronic) Congenital coronary artery anomaly (Chronic) Bradycardia (Chronic) Diabetes mellitus, type II (Chronic) Hyperlipidemia (Chronic) Hypothyroidism (Chronic) Anemia in chronic kidney disease (Chronic) Hypertension (Chronic) End stage renal disease on dialysis (Chronic) - Past Surgical History Surgical History: appendectomy, cholecystectomy, hysterectomy, total knee arthroplasty, - - Left upper extremity fistula, back surgery, colon resection with history of diverticulitis, GI bleed, right knee surgery, right total knee replacement, right foot surgery, left knee surgery, left foot surgery, PCI. - Social History Marital Status: Smoking Status: Former smoker Alcohol: None Drugs: None - Family History Maternal Family History: Family History (Last Reviewed 04/30/19 @ 13:54 by Sarah Mason) Sister Diabetes Heart disease Hypertension Anemia History Items: Cancer - uterine Paternal Family History: Family History (Last Reviewed 04/30/19 @ 13:54 by Sarah Mason) Sister Diabetes Heart disease Hypertension Anemia History Items: Cancer Sibling Family History: Family History (Last Reviewed 04/30/19 @ 13:54 by Sarah Mason) Sister Diabetes Heart disease Hypertension Anemia History Items: Diabetes Patient Problems: Active and Suspected Problems (Last Updated 04/30/19 @ 13:55 by Sarah Mason) Closed left scapular fracture (Acute) - Physical Exam Vitals/I&O's: Vital Signs Temp Pulse Resp BP Pulse Ox 98.9 F 86 18 104/47 L 92 05/14/19 02:01 05/14/19 02:01 05/14/19 02:01 05/14/19 02:01 05/14/19 02:01 Oxygen Flow Rate (L/min) 0 Oxygen Delivery Method Room Air Weight: 101.3 kg Body Mass Index (BMI) 37.1 Finger Stick Blood Glucose 99 Intake and Output for Last 24 Hours 05/12/19 05/13/19 05/14/19 23:59 23:59 23:59 Intake Total 50 / 50 60 / 60 Output Total 5000 / 5000 Balance -4950 / -4950 60 General: Alert, Oriented x3, Cooperative, No apparent distress HEENT: PERRLA, EOMI Lungs: Clear to auscultation Cardiovascular: Regular rate, Murmur Abdomen: Bowel Sounds Present, Soft, Non Tender, Distended, Obese, - - tense ascites Extremities: Edema, - - AVF +thrill and bruit Musculoskeletal: - - severe left shoulder pain, mild swelling, limited rom Psych/Mental Status: Normal Affect, Appropriate, Alert and oriented to time, place, person, mood and affect Laboratory Results 05/13/19 13:37: POC Glucose 126 H 05/13/19 18:00: POC Glucose 116 H 05/13/19 21:28: POC Glucose 112 H 05/14/19 06:52: POC Glucose 93 Current Medications Acetaminophen (Tylenol) 650 mg PO Q6H PRN PRN PRN Reason: Pain Score 1-3/Temp > 100.7 F Last Admin: 05/14/19 06:57 Dose: 650 mg Documented by: Cinacalcet (Sensipar) 30 mg PO TuThSa [facility] Epoetin Melvin-epbx (Retacrit) 10,000 units IV TuThSa@1000 [facility] Glucagon () 1 mg IM .X1 PRN PRN Reason: Hypoglycemia Heparin Sodium (Porcine) (Heparin Na) 5,000 unit SC Q12 [facility] Last Admin: 05/13/19 21:30 Dose: Not Given Documented by: Hydromorphone HCl (Dilaudid Inj) 0.5 mg IV Q4H PRN PRN PRN Reason: Pain Score 6-10/10 Last Admin: 05/13/19 21:30 Dose: 0.5 mg Documented by: Dextrose (Dextrose 10%-Water) 250 mls @ 999 mls/hr IV .Q16M PRN; Protocol PRN Reason: HYPOGLYCEMIA Insulin Human Lispro (Humalog Kwikpen (Bkc)) 0 unit SC ACHS [facility]; Protocol Last Admin: 05/14/19 06:54 Dose: Not Given Documented by: Morphine Sulfate (Ms Contin) 30 mg PO BID [facility] Oxycodone HCl (Oxyir) 10 mg PO Q4H PRN PRN PRN Reason: Pain Score 4-5/10 Last Admin: 05/14/19 06:57 Dose: 10 mg Documented by: Sodium Chloride () 10 - 40 ml IV UD PRN PRN Reason: SALINE FLUSH Last Admin: 05/13/19 21:30 Dose: 10 ml Documented by: Assessment/Plan All Active Problems (Last Updated 04/30/19 @ 13:55 by Sarah Mason) Closed left scapular fracture (Acute) GI bleed (Resolved) Anemia due to acute blood loss (Resolved) 1. ESRD HD MWF at [facility], missed treatment Sunday (holiday schedule). Received dialysis on admission last night. Next dialysis Sunday. May need extra treatment tomorrow for edema, check potassium. Hx high interdialytic fluid gains. 2. Acute fracture left scapula, severe pain and limited motion 3. HTN stable 4. DM2 primary mgmt 5. Chronic ascites, hepatitis 6. Debilitation 7. Hx GI bleed, chec hgb
[2019-05-14] MEDS: HYDROmorphone 0.5 MG/0.5 ML SYRINGE IV (11:20)
[2019-05-14] MEDS: 0.9% Saline Lock 10 ML Syringe IV (11:20)
[2019-05-14] MEDS: Heparin Injection (Vial) 5,000 UNIT/ML VIAL 5000 UNIT SC ×2 (11:22→22:02)
[2019-05-14] MEDS: Lactulose 20 GM/30 ML UDC 30 GM PO (11:23)
[2019-05-14 11:41] LABS: Bedside Glucose 154 mg/dL (70-110)
[2019-05-14 11:47] VITALS: BP 127/47; PULSE 79; RESP 18; TEMP 36.9; O2SAT 98
[2019-05-14] MEDS: Insulin Lispro 100 UNIT/ML INSULN.PEN SC (12:34)
--- NOTE | 2019-05-14 13:55 | NURSING ---
Notified Dr. Acevedo of temp of 100.3. This nurse asked Dr. Acevedo if should get blood cultures, lactic acid, UA or repeat lipase. None of that was ordered but if pt gets temp of [address] or higher to call Dr. Acevedo back and will get him started on Antibiotic. Dr. Hooper just thinks he is dry and needs caught up on fluids.
--- NOTE | 2019-05-14 14:46 | PN_ITS ---
Patient Problems: Active and Suspected Problems (Last Updated 04/30/19 @ 13:55 by Sarah Mason) Closed left scapular fracture (Acute) Subjective: Patient was seen and examined today, she is still having quite a bit of left scapular and shoulder pain. I have decided to place her on some MS Contin for pain, patient had dialysis yesterday. - Physical Exam Vitals/I&O's: Vital Signs Temp Pulse Resp BP Pulse Ox 98.5 F 79 18 127/47 H 98 05/14/19 11:47 05/14/19 11:47 05/14/19 11:47 05/14/19 11:47 05/14/19 11:47 Oxygen Flow Rate (L/min) 0 Oxygen Delivery Method Room Air Weight: 101.3 kg Body Mass Index (BMI) 37.1 Finger Stick Blood Glucose 99 Intake and Output for Last 24 Hours 05/12/19 05/13/19 05/14/19 23:59 23:59 23:59 Intake Total 50 / 50 420 / 420 Output Total 5000 / 5000 Balance -4950 / -4950 420 / 420 General: Alert, Oriented x3, Cooperative, No apparent distress, Well developed, Well nourished HEENT: Atraumatic, PERRLA, EOMI, Normocephalic Oral: Moist Mucosa Neck: Supple, Trachea Midline, Thyroid Normal Size and Texture Lungs: Clear to auscultation, Normal air movement, No rhonchi, No wheeze, No rales Cardiovascular: Regular rate, Regular Rhythm, Normal S1, Normal S2, No murmurs, PMI Normal, No rub noted, No Gallop Abdomen: Bowel Sounds Present, Soft, Non Tender, Non-Distended Extremities: No clubbing, No cyanosis, Capillary Refill Less than 3 Seconds Skin: No rashes, No breakdown Musculoskeletal: No Tenderness to Palpation of Joints or Extremities Neurological: Cranial nerves II-XII grossly intact, Neuro grossly intact, Sensory exam intact to light touch and pain Psych/Mental Status: Normal Affect, Appropriate, Alert and oriented to time, place, person, mood and affect Laboratory Results 05/13/19 18:00: POC Glucose 116 H 05/13/19 21:28: POC Glucose 112 H 05/14/19 06:52: POC Glucose 93 05/14/19 11:30: POC Glucose 154 H Current Medications Acetaminophen (Tylenol) 650 mg PO Q6H PRN PRN PRN Reason: Pain Score 1-3/Temp > 100.7 F Last Admin: 05/14/19 06:57 Dose: 650 mg Documented by: Cinacalcet (Sensipar) 30 mg PO TuThSa [facility] Epoetin Melvin-epbx (Retacrit) 10,000 units IV TuThSa@1000 [facility] Glucagon () 1 mg IM .X1 PRN PRN Reason: Hypoglycemia Heparin Sodium (Porcine) (Heparin Na) 5,000 unit SC Q12 [facility] Last Admin: 05/14/19 11:22 Dose: 5,000 unit Documented by: Hydromorphone HCl (Dilaudid Inj) 0.5 mg IV Q4H PRN PRN PRN Reason: Pain Score 6-10/10 Last Admin: 05/14/19 11:20 Dose: 0.5 mg Documented by: Dextrose (Dextrose 10%-Water) 250 mls @ 999 mls/hr IV .Q16M PRN; Protocol PRN Reason: HYPOGLYCEMIA Insulin Human Lispro (Humalog Kwikpen (Bkc)) 0 unit SC ACHS [facility]; Protocol Last Admin: 05/14/19 12:34 Dose: 2 units Documented by: Morphine Sulfate (Ms Contin) 30 mg PO BID [facility] Last Admin: 05/14/19 11:23 Dose: 30 mg Documented by: Oxycodone HCl (Oxyir) 10 mg PO Q4H PRN PRN PRN Reason: Pain Score 4-5/10 Last Admin: 05/14/19 06:57 Dose: 10 mg Documented by: Sodium Chloride () 10 - 40 ml IV UD PRN PRN Reason: SALINE FLUSH Last Admin: 05/14/19 11:20 Dose: 10 ml Documented by: Medical Necessity - Tobacco Use Smoking Status: Former smoker Tobacco Use: Non-smoker Assessment/Plan All Active Problems (Last Updated 04/30/19 @ 13:55 by Sarah Mason) Closed left scapular fracture (Acute) GI bleed (Resolved) Anemia due to acute blood loss (Resolved) #1 closed left scapular fracture-PT and OT is seeing the patient, she will need placement in jail facility for inpatient rehab services #2 end-stage renal disease-nephrology is following #3 generalized debility-again patient will need placement in a jail facility #4 type 2 diabetes #5 essential hypertension #6 hypothyroidism Code Visit Inpatient E&M: 25567 Subs Hosp L2
[2019-05-14 15:43] VITALS: BP 110/49; PULSE 75; RESP 20; TEMP 36.8; O2SAT 97
[2019-05-14 16:56] LABS: Bedside Glucose 127 mg/dL (70-110)
[2019-05-14 21:56] VITALS: BP 144/63; PULSE 83; RESP 20; TEMP 37.2; O2SAT 94
[2019-05-14 22:31] LABS: Bedside Glucose 111 mg/dL (70-110)
[2019-05-15 04:10] VITALS: BP 126/61; PULSE 88; RESP 20; TEMP 37.2; O2SAT 94
[2019-05-15 05:57] LABS: Hematocrit 32.2 % (37-47); Hemoglobin 9.7 g/dL (12.0-15.0); Mean Corp Hgb Conc 30.1 g/dL (32-36); Mean Corpuscular Hgb 30.4 pg (27.0-32.0); Mean Corpuscular Volume 100.9 fL (81-99); Mean Platelet Vol. 9.5 fl (6.2-12.0); POSITIVE MORPHOLOGY YES; Platelet Count 135 K/mm3 (150-450); RBC Distribution Width CV 18.6 % (11.6-14.6); RBC Distribution Width SD 68.2 fl (35.1-43.9); Red Blood Count 3.19 M/mm3 (4.2-5.4); White Blood Count 4.8 K/mm3 (4.4-11.0)
[2019-05-15 06:17] LABS: Albumin, Serum 1.8 g/dL (3.2-5.0); BUN 33 mg/dL (7-18); BUN/Creat Ratio 6.6 RATIO (10-20); Chloride 96 mmol/L (98-107); Creatinine, Serum 5.01 mg/dL (0.55-1.02); EST Glomerular Filtration Rate 9 mL/min (>60); Est Glom Filt Rate - Afr Amer 11 mL/min (>60); Glucose 99 mg/dL (74-106); Phosphorus 5.1 mg/dL (2.5-4.9); Potassium 4.4 mmol/L (3.5-5.1); Sodium Level 130 mmol/L (136-145)
[2019-05-15 06:22] LABS: Scan Indicated on CBC? Y/N YES- FLAGS NOTED
[2019-05-15 06:45] LABS: Bedside Glucose 109 mg/dL (70-110)
[2019-05-15] MEDS: oxyCODONE 5 MG Tablet 10 MG PO (06:45)
[2019-05-15 06:48] LABS: Differential Comment SCANNED
--- NOTE | 2019-05-15 08:45 | US_ITS ---
PROCEDURE: ULTRASOUND GUIDED PARACENTESIS CLINICAL HISTORY: Female, 74 years old. ASCITES CONSENT: The risks, benefits and alternatives to the procedure were explained to the patient, and the patient agreed to the procedure and signed the consent. 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 PROCEDURE/TECHNIQUE: The risks, benefits, and alternatives to the procedure were explained to patient, and the patient agreed to the procedure and signed a consent form for the procedure. TECHNIQUE: Under the ultrasound guidance using sterile technique and after infiltration of the skin and subcutaneous soft tissues with 10 mL of lidocaine 1% a 5 Italian drainage catheter is introduced in the right upper quadrant of the abdomen. 4500 mL of fluid were removed sample sent to lab for evaluation. The patient tolerated the procedure there was no immediate complication. FINDINGS: FLUID PRE-PROCEDURE There is posterior enhancement. The findings appear anechoic. There is no loculation. FLUID POST-PROCEDURE Amount of fluid drained: 4500 ml. US/Paracentesis with US IMPRESSION: Successful ultrasound-guided paracentesis. Electronically Signed: Fern Skinner, at 23:52 EST Tel , Service support ,
--- NOTE | 2019-05-15 09:32 | CASEMGMT ---
Social Work SW met with pt in room and introduced self. Pt was previously living at [facility] and discharged on 05/11. Between that time and hospital admission on 05/13 pt fell twice resulting in scapula fx. Pt lives in home with her spouse but does not feel she can return at this time as she cannot care for herself. Written list of SNFs in network with insurance provided to pt. Pt would like to return to [facility] if insurance will cover stay. Phone call to Candelaria at [facility] and referral made. Clinicals faxed. [facility] is able to accept pt back. Precert will be started with insurance. SW will continue to follow for SNF placement. Plan: [facility], pending precert FELIPA Spivey
[2019-05-15 09:40] VITALS: BP 140/54; PULSE 108; RESP 20; TEMP 37.2; O2SAT 94
--- NOTE | 2019-05-15 10:57 | CASEMGMT ---
Addendum entered by Marta Crews 05/15/19 14:37: Pt to be discharged today. 7000 form completed and orders faxed to [facility]. SW spoke with Candelaria at [facility] and they are able to transport pt via their wheelchair van. Transport set up for 3:00. Pt, spouse and daughter notified as well as EDIN. FELIPA Spivey Original Note: Social Work Return call from Candelaria at the [facility] and they are able to accept pt and precert has been obtained. Physician notified. SW met with pt and informed and she is agreeable to transfer when medically ready. With pt permission phone call placed to pt spouse and informed of d/c plan. He is also agreeable. [facility]GO will continue to follow for d/c planning. Plan: [facility], when medically ready FELIPA Spivey
[2019-05-15 11:45] VITALS: BP 146/58; PULSE 102; RESP 18; TEMP 37.2; O2SAT 92
--- NOTE | 2019-05-15 11:50 | NURSING ---
pt transported off unit to ultrasound at this time for paracentesis.
--- NOTE | 2019-05-15 11:56 | TREXTCAR_ITS ---
- Diet 05/13/19 13:31 Diet: Calorie Controlled Food consistency:: Regular Liquid Consistency:: Regular/Thin Is pt able to select menu?: No Diet Comments: no pork. How many daily calories?: 1800 calorie - Wound(s) Left lower arm Wound Type: Skin Tear - Therapies Weight Bearing: Full weight bearing Physical Therapy: Eval and Treat Occupational Therapy: Eval and Treat - Problem/Diagnosis (1) Closed left scapular fracture Status: Acute Current Visit: Yes (2) Atherosclerotic heart disease of [place] coronary artery without angina pectoris Status: Chronic Current Visit: No (3) Ascites Status: Chronic Current Visit: No (4) Afib Status: Chronic Current Visit: No (5) Anemia in chronic kidney disease Status: Chronic Current Visit: No (6) Hypertension Status: Chronic Current Visit: No (7) End stage renal disease on dialysis Status: Chronic Current Visit: No - Allergies/Procedures Done in Hospital Allergies/Adverse Reactions: Allergies lisinopril Allergy (Severe, Verified 05/09/19 11:31) Angioedema nebivolol HCl [From Bystolic] Adverse Reaction (Severe, Verified 05/09/19 11:31) bradycardia BRADYCARDIA Procedures: None - Type of Care/Length of Stay Estimated LOS: Convalescent Care Less Than 30 days Type of Care Needed: Skilled Rehab Potential: Good Prognosis: Good - Additional Orders/Day of Discharge Additional Orders: left arm sling may be used for comfort if needed H&P will serve as current which was dated: 05/13/19 Day of Discharge: 05/15/19 - Follow Up Care Primary Care Physician: Walter Chao MD [Primary Care Provider] -
[2019-05-15 12:01] LABS: Bedside Glucose 135 mg/dL (70-110)
[2019-05-15 12:11] VITALS: BP 137/47; BP 146/74; BP 149/55; PULSE 87; PULSE 98; PULSE 99; RESP 16; RESP 18; O2SAT 92
[2019-05-15 13:10] VITALS: BP 131/46; PULSE 97; RESP 20; TEMP 37.2; O2SAT 94
--- NOTE | 2019-05-15 15:21 | NURSING ---
report called to Rmoi at the [facility], pt was transported via [facility] wheelchair van. family is transporting pt belongings
--- NOTE | 2019-05-15 17:18 | PCM.DC.SUM ---
Discharge Date and Diagnosis Date of Admission: 05/13/19 Date of Discharge: 05/15/19 - Primary Discharge Diagnosis 1 closed left scapular fracture #2 end-stage renal disease #3 generalized debility #4 type 2 diabetes #5 essential hypertension #6 hypothyroidism #7 atherosclerotic heart disease #8 chronic atrial fibrillation #9 chronic ascites - Secondary Discharge Diagnosis Chronic Problems (Last Updated 04/30/19 @ 13:55 by Sarah Mason) Chronic renal failure (Chronic) History of GI bleed (Chronic) History of non-ST elevation myocardial infarction (NSTEMI) (Chronic 07/05/16) Atherosclerotic heart disease of [place] coronary artery without angina pectoris (Chronic) Stented coronary artery (Chronic) Cutting Balloon and TAMI (3.0X18 mm Xience) Proximal LAD 04/18/2012; Rotational atherectomy to proximal, id and distal RCA with two overlapping 4.0 X 38 Synergy TAMI ([facility] main) Ascites (Chronic) Pancytopenia (Chronic) Other specified peripheral vascular diseases (Chronic) Afib (Chronic) Congenital coronary artery anomaly (Chronic) Bradycardia (Chronic) Diabetes mellitus, type II (Chronic) Hyperlipidemia (Chronic) Hypothyroidism (Chronic) Anemia in chronic kidney disease (Chronic) Hypertension (Chronic) End stage renal disease on dialysis (Chronic) Hospital Course and Treatment Imaging Results: 05/15/19 08:45 Paracentesis with US [US] Routine Operations: None, - Procedures: Dialysis, Paracentesis Summary of Care Provided: The patient is a 74 year old F was directly admitted to [place] [address] after sustaining a fall as an outpatient and being evaluated at [facility] emergency room, she complained of left shoulder pain and CT there revealed a closed fracture of the left scapula. Due to debility, patient was unable to return home and she was directly admitted to [facility]. Patient was seen by PT and OT, she was seen by nephrology due to the fact she had end-stage renal disease and was on chronic dialysis, patient underwent dialysis during her hospital stay and she also underwent a paracentesis which have been scheduled as an outpatient due to chronic recurrent ascites. On 05/15/2019, patient was seen and examined: On examination she appeared in good health and spirits. Vital signs as documented. Skin warm and dry and without overt rashes. Neck without JVD. Lungs clear. Heart exam notable for irregular rhythm, no rubs were noted. Abdomen unremarkable and without evidence of organomegaly, masses, or abdominal aortic enlargement. Extremities nonedematous. Neuro: Cranial nerves II through XII are grossly intact, no focal motor deficits were noted, sensation to light touch and pinprick is intact. Psych: Patient is alert and oriented x3, she does not appear anxious or depressed On 05/15/2019, patient was seen and examined and felt to be in stable condition for transfer to an extended care facility for inpatient rehab services - Physical Exam Vitals/I&O's: Vital Signs Temp Pulse Resp BP Pulse Ox 98.9 F 97 20 H 131/46 H 94 05/15/19 13:10 05/15/19 13:10 05/15/19 13:10 05/15/19 13:10 05/15/19 13:10 Oxygen Flow Rate (L/min) 2 Oxygen Delivery Method [3] Room Air Oxygen Delivery Method [2] Room Air Oxygen Delivery Method [1 ( Room Air Initial Baseline)] Oxygen Delivery Method Room Air Weight: 101.3 kg Body Mass Index (BMI) 37.1 Finger Stick Blood Glucose 99 Intake and Output for Last 24 Hours 05/13/19 05/14/19 05/15/19 23:59 23:59 23:59 Intake Total 50 / 50 420 / 720 850 / 850 Output Total 5000 / 5000 Balance -4950 / -4950 420 / 720 850 / 850 Laboratory Results 05/14/19 22:00: POC Glucose 111 H 05/15/19 05:40: WBC 4.8, RBC 3.19 L, Hgb 9.7 L, Hct 32.2 L, MCV 100.9 H, MCH 30.4, MCHC 30.1 L, RDW Std Deviation 68.2 H, RDW Coeff of Susan 18.6 H, Plt Count 135 L, MPV 9.5, Differential Comment SCANNED 05/15/19 05:40: Sodium 130 L, Potassium 4.4, Chloride 96 L, Carbon Dioxide 25.0, BUN 33 H, Creatinine 5.01 H, Estim Creat Clear Calc 8.60, Est GFR (MDRD) Af Amer 11 L, Est GFR (MDRD) Non-Af 9 L, BUN/Creatinine Ratio 6.6 L, Glucose 99, Calcium 7.0 L, Phosphorus 5.1 H, Albumin 1.8 L 05/15/19 06:40: POC Glucose 109 05/15/19 11:47: POC Glucose 135 H Home Medications: Medications to take at Discharge Cholecalciferol (Vitamin D3) [Vitamin D3] 5,000 unit PO MOWEFR 07/27/17 pantoprazole 40 mg tablet,delayed release 40 mg PO DAILY 08/21/17 Atorvastatin Calcium [Lipitor] 80 mg PO QHS 12/26/17 Carvedilol 12.5 mg PO BID 05/10/18 Insulin Glargine [Lantus SoloStar Pen] 11 units SUBCUT QHS 05/31/18 B Complex W-C No.20/Folic Acid [Virt-Caps Softgel] 1 mg PO UD 09/20/18 Docusate Sodium [Colace] 100 mg PO BID 02/13/19 Ropinirole HCl [Requip] 0.5 mg PO QHS 02/13/19 Sevelamer Carbonate 2,400 mg PO TIDCM 02/13/19 Losartan Potassium [Cozaar] 50 mg PO BID #0 04/08/19 Acetaminophen [Tylenol Tablet] 650 mg PO Q6H PRN PRN tab 05/15/19 Aspirin E.C. [Ecotrin] 81 mg PO DAILY@0800 #1 tab 05/15/19 Cinacalcet HCl [Sensipar] 30 mg PO TuThSa tab 05/15/19 Clopidogrel Bisulfate [Plavix] 75 mg PO DAILY #1 tab 05/15/19 Epoetin Melvin epbx [Retacrit] 10,000 units IV TuThSa@1000 ml 05/15/19 Gabapentin [Neurontin] 200 mg PO BID 5 Days #10 cap 05/15/19 Isosorbide Mononitrate [Imdur] 60 mg PO BID #1 tab 05/15/19 morphine SR tablet [Ms Contin] 30 mg PO BID 10 Days #20 tab 05/15/19 traMADol [Ultram (G)] 50 mg PO Q6H PRN PRN 3 Days #10 tab 05/15/19 Following Prescrptions Were Given to Patient: Aspirin E.C. [Ecotrin] 81 mg PO DAILY@0800 #1 tab Isosorbide Mononitrate [Imdur] 60 mg PO BID #1 tab morphine SR tablet [Ms Contin] 30 mg PO BID 10 Days #20 tab Prescription Printed Gabapentin [Neurontin] 200 mg PO BID 5 Days #10 cap Prescription Printed Clopidogrel Bisulfate [Plavix] 75 mg PO DAILY #1 tab traMADol [Ultram (G)] 50 mg PO Q6H PRN PRN 3 Days #10 tab PRN Reason: Pain Score 4-10/10 Prescription Printed Primary Care Physician: Walter Chao MD [Primary Care Provider] - Disposition: Jail facility Minutes spent on discharge:: 35 Patient Condition:: Stable Medical Necessity - Tobacco Use Smoking Status: Former smoker Tobacco Use: Non-smoker Meaningful Use Info Meaningful Use Diagnoses (Choose all that apply): None applicable Code Visit Inpatient E&M: 46635 Disch Hosp
== END 2019-05-15 14:55 | disposition skilled nursing facility (03) | DRG 562 ==
PROVIDERS: Internal Medicine Nephrology; Admitting Provider Internal Medicine; Family Provider Family Medicine; PCP Family Medicine; Referring Provider Internal Medicine; Visit Provider Internal Medicine
DX: S42.102A Fracture of unspecified part of scapula, left shoulder, initial encounter for closed fracture (principal); N18.6 End stage renal disease; I12.0 Hypertensive chronic kidney disease with stage 5 chronic kidney disease or end stage renal disease; I48.20 Chronic atrial fibrillation, unspecified; R18.8 Other ascites; Q24.5 Malformation of coronary vessels; W19.XXXA Unspecified fall, initial encounter; Y92.009 Unspecified place in unspecified non-institutional (private) residence as the place of occurrence of the external cause; E11.22 Type 2 diabetes mellitus with diabetic chronic kidney disease; Z99.2 Dependence on renal dialysis; E03.9 Hypothyroidism, unspecified; R53.81 Other malaise; Z87.891 Personal history of nicotine dependence; I25.10 Atherosclerotic heart disease of native coronary artery without angina pectoris; E78.5 Hyperlipidemia, unspecified; D63.1 Anemia in chronic kidney disease; I73.89 Other specified peripheral vascular diseases; I25.2 Old myocardial infarction; Z95.5 Presence of coronary angioplasty implant and graft; Z87.19 Personal history of other diseases of the digestive system; Z79.4 Long term (current) use of insulin
CPT/HCPCS: 36415; 49083; 80069; 82962; 85027; 90937; 97110; 97116; 97162; 97165; 97530; A4216; G0257; Q5106

== ENCOUNTER → 2019-05-22 12:23 | Outpatient (CLI) | payer MEDICARE, SELFPAY ==
[2018-06-11 11:00] VITALS: BMI 27.1
[2019-04-08 14:53] VITALS: BMI 35.5
[2019-05-13 12:40] VITALS: BMI 37.1
--- NOTE | 2019-05-22 12:26 | US_ITS ---
PROCEDURE: ULTRASOUND GUIDED PARACENTESIS CLINICAL HISTORY: Female, 74 years old. ascites CONSENT: The entire procedure, risks, benefits and alternatives (including doing nothing) were discussed with the patient preprocedure. Risks presented included (but were not limited to) infection/abscess, bleeding, pain, reaction to medications and potential injury/damage to intra-abdominal/intrapelvic organs. All patient questions were answered satisfactorily. Written consent was obtained, witnessed and placed on the patient''s chart. Time-Out Called: Yes. Consent form signed: Yes. PT-PTT Levels Checked: Yes. SEDATION: None. TECHNIQUE: The patient was taken into the fluoroscopy suite and positioned in the semiupright position. A short time out was observed. Limited and directed sonography of the abdomen/pelvis demonstrated a large collection of free ascites in the right lower quadrant. An intended percutaneous site was identified and marked. The anterolateral right lower quadrant ventral soft tissues were then thoroughly prepped and draped in the usual sterile manner. Local superficial anesthesia was obtained with approximately 0.75 cc of 2% lidocaine without epinephrine. A small thoracotomy was made. Thereafter, a 5 Lao coaxial device/system was advanced through the soft tissues and tip parked in the fluid collection. From this location, 3.3 L of yellow-tinged ascites was collected. The device was removed, soft tissues cleansed and a sterile occlusive dressing applied. US/Paracentesis with US IMPRESSION: Successful, ultrasound-guided right lower quadrant paracentesis. Complications: The patient tolerated the procedure well without evident immediate post procedure complication. Electronically Signed: Alber Bryant MD at 15:01 EST , Service support ,
[2019-05-22 12:45] VITALS: BP 143/63; BP 154/62; BP 154/65; PULSE 67; PULSE 75; PULSE 80; RESP 16; RESP 18; O2SAT 96; O2SAT 97; O2SAT 99
== END ==
PROVIDERS: Family Provider Family Medicine; PCP Family Medicine; Referring Provider Family Medicine; Visit Provider Family Medicine
DX: R18.8 Other ascites (principal)
CPT/HCPCS: 49083

== ENCOUNTER 2019-05-22 22:55 | Inpatient (IN) | payer MEDICARE, SELFPAY ==
[2018-06-11 11:00] VITALS: BMI 27.1
[2019-05-22 22:57] VITALS: BP 153/57; PULSE 87; RESP 17; TEMP 37.1; O2SAT 93; BMI 32.5
--- NOTE | 2019-05-22 23:26 | EKG12_ITS ---
Test Reason : REPEAT CP Blood Pressure : / mmHG Vent. Rate : 084 BPM Atrial Rate : 068 BPM P-R Int : 000 ms QRS Dur : 088 ms QT Int : 370 ms P-R-T Axes : 000 052 103 degrees QTc Int : 437 ms Atrial fibrillation Nonspecific T wave abnormality Abnormal ECG Confirmed by QUIRINO NEWMAN, NANCIE ([id number]), purchasing expeditor FINESSE ZAVALETA ([id number]) on 05/26/2019 12:42:11 PM Referred By: Buddy Olson Confirmed By:NANCIE WIN MD
--- NOTE | 2019-05-22 23:26 | RAD_ITS ---
STUDY: X-RAY CHEST REASON FOR EXAM: Female, 74 years old patient with chest pain. Patient is unable to raise left arm due to shoulder injury. TECHNIQUE: PA and lateral views of the chest. COMPARISON: February 14, 2019. FINDINGS: Cardiac monitoring leads are present. The lungs are expanded. There is patchy groundglass attenuation in both lung bases. There are small bilateral pleural effusions. There is mild cardiac enlargement. Normal mediastinum and roxy. There is prominence of the pulmonary hilar arteries without peripheral pulmonary vascular congestion. There is atherosclerotic calcification of the aortic arch with tortuosity. There is demineralization of the osseous structures. There is a fracture of the distal left clavicle that probably is unchanged since the previous study. There are degenerative changes of the shoulders and spine. There is no demonstrated abnormality of the visualized soft tissue structures of the upper abdomen. RAD/Chest PA and Lateral IMPRESSION: 1. Fracture of the left clavicle. 2. Bilateral basilar airspace disease and/or atelectasis. Electronically Signed: Adela Syed MD at 0:13 EST , Service support ,
--- NOTE | 2019-05-22 23:27 | ED.DCSUM_ITS ---
History of Present Illness Chief Complaint: Chest Pain Informant: Patient Narrative: Patient stated she has had chest pain throughout the whole day today. It is at rest. She describes a crushing sensation in the center of her chest. No radiation. Denies any shortness of breath. No fevers or chills. She was given aspirin at the long term that she resides at. She was given 3 sublingual nitroglycerin with no relief. She does have a history of coronary artery disease non-STEMI with stents in the past. She recently had a negative cardiac work-up with a negative nuclear stress test. Patient stated that is been getting worse throughout the day. Nothing makes it better or worse. Denies any pulmonary embolism risk factors. - Past Medical History (1) Closed left scapular fracture Status: Acute (2) Afib Status: Chronic (3) Anemia in chronic kidney disease Status: Chronic (4) Ascites Status: Chronic (5) Atherosclerotic heart disease of [place] coronary artery without angina pectoris Status: Chronic (6) Bradycardia Status: Chronic (7) Chronic renal failure Status: Inactive (8) Congenital coronary artery anomaly Status: Chronic (9) Diabetes mellitus, type II Status: Chronic (10) End stage renal disease on dialysis Status: Chronic (11) History of GI bleed Status: Chronic (12) History of non-ST elevation myocardial infarction (NSTEMI) Status: Chronic (13) Hyperlipidemia Status: Chronic (14) Hypertension Status: Chronic (15) Hypothyroidism Status: Chronic (16) Other specified peripheral vascular diseases Status: Chronic (17) Pancytopenia Status: Chronic (18) Stented coronary artery Status: Chronic Comment: Cutting Balloon and TAMI (3.0X18 mm Xience) Proximal LAD 04/18/2012; Rotational atherectomy to proximal, id and distal RCA with two overlapping 4.0 X 38 Synergy TAMI ([facility] main) (19) Anemia due to acute blood loss Status: Inactive (20) GI bleed Status: Resolved Past Medical History - Allergies and Home Meds Allergies/Adverse Reactions: Allergies lisinopril Allergy (Severe, Verified 05/22/19 22:57) Angioedema nebivolol HCl [From Bystolic] Adverse Reaction (Severe, Verified 05/22/19 22:57) bradycardia BRADYCARDIA Prior records reviewed: Yes Past Medical History: - - See problem list Surgical History: appendectomy, cholecystectomy, hysterectomy, total knee arthroplasty, - - Left upper extremity fistula, back surgery, colon resection with history of diverticulitis, GI bleed, right knee surgery, right total knee replacement, right foot surgery, left knee surgery, left foot surgery, PCI. Lives: With Family Smoking Status: Former smoker Alcohol: None Drugs: None - Family History Maternal Family History: Family History (Last Reviewed 05/23/19 @ 04:42 by Buddy Olson MD) Sister Diabetes Heart disease Hypertension Anemia Family History: Reports: Cancer - uterine Paternal Family History: Family History (Last Reviewed 05/23/19 @ 04:42 by Buddy Olson MD) Sister Diabetes Heart disease Hypertension Anemia Family History: Reports: Cancer Sibling Family History: Family History (Last Reviewed 05/23/19 @ 04:42 by Buddy Olson MD) Sister Diabetes Heart disease Hypertension Anemia Family History: Reports: Diabetes Review of Systems General: Denies: Chills, Fever, Sweats Eyes: Denies: Visual changes - bilaterally, Diplopia ENT: Denies: Rhinorrhea, Sore throat Cardiovascular: Reports: Chest pain. Denies: Palpitations Respiratory: Denies: Dyspnea, Cough, Dyspnea on exertion Gastrointestinal: Denies: Abdominal pain, Nausea, Vomiting, Diarrhea, Melena, Hematochezia Genitourinary: Denies: Dysuria, Hematuria, Frequency Musculoskeletal: Denies: Back pain, Extremity Pain Skin: Denies: Rash, Wounds Neurological: Denies: Headache, Weakness, Numbness Physical Exam Vital Signs/Narrative: Vital Signs Temp Pulse Resp BP Pulse Ox 05/22/19 22:57 98.7 F 87 17 153/57 H 93 General: Well nourished, Well developed, No Acute Distress Head: Normocephalic, Atraumatic Eyes: Perrl, EOMI ENT: Moist mucous membranes, No rhinorrhea Neck: Supple, Nontender Cardiovascular: Regular rate, Regular rhythm, No murmurs Respiratory: No distress, CTA bilaterally, Chest nontender Abdomen: Soft, Nontender, Nondistended, Normal bowel sounds Back: Nontender, Normal Inspection Extremities: Nontender, No edema Skin: Normal color, No rash Neurological: Alert, Oriented x3, Cranial nerves II-XII grossly intact, Normal Strength, Normal Sensation Psychological: Normal affect, Normal Mood Diagnostic/Tx/Re-eval - Medical Decision Making EKG shows atrial fibrillation at a rate of 83. Unchanged from EKG April 01. No acute STEMI or ischemic findings. Lab work and chest x-ray obtained. Patient given a dose of morphine. Already received aspirin and nitroglycerin with no relief. Patient was given 2 doses of morphine and 1 dose of to try to control her pain. She continues to have the similar pain. At this time it is unclear the cause of her pain. Her troponin is negative. She has chronic renal insufficiency on her lab work. Mildly low sodium. Chronic anemia noted. Chest x-ray shows bibasilar atelectasis pattern. Calcified aortic knob appears unchanged from prior. Have a low suspicion for PE or dissection. Patient will be discussed with the hospitalist. She had a negative cardiac work-up in January of last year. She will be readmitted for chest pain. Upon speaking with the hospitalist he asked that we did a central line. I was unable to visualize internal jugular is on ultrasound. Patient consented to a right subclavian. Under sterile conditions using Seldinger technique a right subclavian was introduced. There is no complications. The catheter threaded easily. There was good blood flow return and flushed easily. Post x-ray shows no pneumothorax or abnormality. CT Clara obtained and is pending at this time. The patient will be admitted CAT scan and she will be signed out to the a.m. physician Dr. Bob as well as am hospitalist. - Critical Care Time Critical care time (excluding procedures): 30-74 minutes ED Disposition - Plan for ED Patient: Disposition: Acute Care Hospital [facility] Diagnosis: Chest pain at rest
[2019-05-22 23:28] VITALS: O2SAT 98
[2019-05-22 23:38] LABS: Absolute Lymphocyte Count 1.45 X10^3/uL (0.83-4.51); Absolute Neutrophil Count 6.3 X10^3/uL (2.0-7.7); Basophil# 0.07 X10^3/uL; Basophil% 0.8 % (0-1); Eosinophils% 1.2 % (0-5); Hematocrit 37.1 % (37-47); Hemoglobin 11.3 g/dL (12.0-15.0); Lymphocyte # 1.45 X10^3/ul (4.0); Lymphocyte % 16.7 % (19-41); Mean Corp Hgb Conc 30.5 g/dL (32-36); Mean Corpuscular Hgb 30.2 pg (27.0-32.0); Mean Corpuscular Volume 99.2 fL (81-99); Mean Platelet Vol. 9.3 fl (6.2-12.0); Monocyte# 0.74 X10^3/uL; Monocyte% 8.5 % (0-10); NRBC Flagged by Analyzer 0 % (0-5); Neutrophil # 6.28 X10^3/uL (2.7-7.7); Neutrophil % 72.6 % (47-70); POSITIVE MORPHOLOGY YES; Platelet Count 175 K/mm3 (150-450); RBC Distribution Width CV 17.9 % (11.6-14.6); RBC Distribution Width SD 65.5 fl (35.1-43.9); Red Blood Count 3.74 M/mm3 (4.2-5.4); White Blood Count 8.7 K/mm3 (4.4-11.0)
[2019-05-22] MEDS: Morphine 4 MG/ML Syringe IV (23:38)
[2019-05-22 23:39] LABS: Differential Indicated SCAN CRITERIA MET
[2019-05-22 23:54] LABS: Anion Gap 7 (5-15); BUN 33 mg/dL (7-18); BUN/Creat Ratio 7.1 RATIO (10-20); Calcium,Total 8.8 mg/dL (8.5-10.1); Chloride 93 mmol/L (98-107); Creatinine, Serum 4.66 mg/dL (0.55-1.02); EST Glomerular Filtration Rate 10 mL/min (>60); Est Glom Filt Rate - Afr Amer 12 mL/min (>60); Estimated Creatinine Clearance 9.24 ml/min; Glucose 164 mg/dL (74-106); Potassium 4.3 mmol/L (3.5-5.1); Sodium Level 130 mmol/L (136-145)
[2019-05-23] VITALS (32 sets, daily range): BP systolic 88–140; BP diastolic 41–79; PULSE 65–94; RESP 12–22; TEMP 36.2–36.9; O2SAT 86–100; BMI 30.5; BMI 30.6
[2019-05-23 00:05] LABS: Anisocytosis 1+; Differential Comment SCANNED
--- NOTE | 2019-05-23 00:09 | ED.RN ---
received permission from pt to talk with daughter levi. updated daughter. updated doc on pts pain. updated pt.
[2019-05-23] MEDS: Morphine 4 MG/ML Syringe IV (00:28)
--- NOTE | 2019-05-23 01:31 | HP.PCM_ITS ---
Problem List (1) Chest pain Status: Acute (2) Chest pain at rest Status: Acute (3) Closed left scapular fracture Status: Acute Qualifiers: Encounter type: initial encounter Scapula location: glenoid fossa Fracture alignment: nondisplaced Qualified Code(s): S42.145A - Nondisplaced fracture of glenoid cavity of scapula, left shoulder, initial encounter for closed fracture (4) History of GI bleed Status: Chronic (5) History of non-ST elevation myocardial infarction (NSTEMI) Status: Chronic (6) Atherosclerotic heart disease of [place] coronary artery without angina pectoris Status: Chronic (7) Stented coronary artery Status: Chronic Comment: Cutting Balloon and TAMI (3.0X18 mm Xience) Proximal LAD 04/18/2012; Rotational atherectomy to proximal, id and distal RCA with two overlapping 4.0 X 38 Synergy TAMI ([facility] main) (8) Ascites Status: Chronic Qualifiers: (9) Pancytopenia Status: Chronic (10) Other specified peripheral vascular diseases Status: Chronic (11) Afib Status: Chronic Qualifiers: (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 (13) Bradycardia Status: Chronic (14) Diabetes mellitus, type II Status: Chronic (15) Hyperlipidemia Status: Chronic Qualifiers: (16) Hypothyroidism Status: Chronic Qualifiers: (17) Anemia in chronic kidney disease Status: Chronic (18) Hypertension Status: Chronic Qualifiers: (19) End stage renal disease on dialysis Status: Chronic History of Present Illness Date of Admission: 05/23/19 Chief Complaint: chest pain The patient is a 74 year old F detention resident with a significant history of end-stage renal disease on dialysis; non-ST elevation with stents; ascites with frequent paracentesis; hypothyroidism; hypertension; Congenital coronary artery anomaly; diabetes mellitus presented with excruciating progressively worsening nonradiating substernal aching chest pain. She denies any nausea; vomiting; shortness of breath; or diaphoresis. Patient was given aspirin and 3 nitroglycerin at the extended care facility where she lives before coming to the ED. At the emergency department she co ntinued to have excruciating pain and was given morphine and Dilaudid. Of note patient was recently admitted at our hospital on 05/13/2019 and discharged on 05/15/2019 for close left scapula fracture. Also patient was admitted on 02/13/2019 and discharged on 02/18/2019 for acute chest pain. Stress test was negative at that time. Because of previous history of anomalous left circumflex artery no additional cardiac work-up was planned as patient was not deemed to be an adequate candidate for percutaneous cardiac intervention. Paracentesis was done at that time. Past Medical History Past Medical History (Chronic Problems): Chronic Problems (Last Reviewed 05/23/19 @ 04:42 by Buddy Olson MD) History of GI bleed (Chronic) History of non-ST elevation myocardial infarction (NSTEMI) (Chronic 07/05/16) Atherosclerotic heart disease of [place] coronary artery without angina pectoris (Chronic) Stented coronary artery (Chronic) Cutting Balloon and TAMI (3.0X18 mm Xience) Proximal LAD 04/18/2012; Rotational atherectomy to proximal, id and distal RCA with two overlapping 4.0 X 38 Synergy TAMI ([facility] main) Ascites (Chronic) Pancytopenia (Chronic) Other specified peripheral vascular diseases (Chronic) Afib (Chronic) Congenital coronary artery anomaly (Chronic) Bradycardia (Chronic) Diabetes mellitus, type II (Chronic) Hyperlipidemia (Chronic) Hypothyroidism (Chronic) Anemia in chronic kidney disease (Chronic) Hypertension (Chronic) End stage renal disease on dialysis (Chronic) Medical History: Medical History (Last Reviewed 05/23/19 @ 04:42 by Buddy Olson MD) History of GI bleed (Chronic) Z87.19 History of non-ST elevation myocardial infarction (NSTEMI) (Chronic) Onset Date: 07/05/16 I25.2 Atherosclerotic heart disease of [place] coronary artery without angina pectoris (Chronic) I25.10 Ascites (Chronic) R18.8 Pancytopenia (Chronic) D61.818 Other specified peripheral vascular diseases (Chronic) I73.89 Afib (Chronic) I48.91 Congenital coronary artery anomaly (Chronic) Q24.5 Bradycardia (Chronic) R00.1 Diabetes mellitus, type II (Chronic) E11.9 Hyperlipidemia (Chronic) E78.5 Hypothyroidism (Chronic) E03.9 Anemia in chronic kidney disease (Chronic) N18.9, D63.1 Hypertension (Chronic) I10 End stage renal disease on dialysis (Chronic) N18.6, 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-28-18 History of hysterectomy Z90.710 Skin cancer C44.90 mouth/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, 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 Allergies lisinopril Allergy (Severe, Verified 05/22/19 22:57) Angioedema nebivolol HCl [From Bystolic] Adverse Reaction (Severe, Verified 05/22/19 22:57) bradycardia BRADYCARDIA Home Medications: Ambulatory Orders Medication Instructions Recorded Cholecalciferol (Vitamin D3) 5,000 unit PO MOWEFR 07/27/17 [Vitamin D3] pantoprazole 40 mg tablet,delayed 40 mg PO DAILY 08/21/17 release Atorvastatin Calcium [Lipitor] 80 mg PO QHS 12/26/17 Insulin Glargine [Lantus SoloStar 11 units SUBCUT QHS 05/31/18 Pen] Docusate Sodium [Colace] 100 mg PO BID 02/13/19 Ropinirole HCl [Requip] 0.5 mg PO QHS 02/13/19 Sevelamer Carbonate 2,400 mg PO TIDCM 02/13/19 Losartan Potassium [Cozaar] 50 mg PO BID #0 04/08/19 Acetaminophen [Tylenol Tablet] 650 mg PO Q6H PRN PRN tab 05/15/19 Aspirin E.C. [Ecotrin] 81 mg PO DAILY@0800 #1 tab 05/15/19 Clopidogrel Bisulfate [Plavix] 75 mg PO DAILY #1 tab 05/15/19 Gabapentin [Neurontin] 200 mg PO BID 5 Days #10 cap 05/15/19 Insulin Lispro [Insulin Lispro 0 unit SQ TID 05/23/19 Kwikpen U-100] Isosorbide Mononitrate [Imdur] 30 mg PO DAILY 05/23/19 Melatonin 5 mg PO QHS 05/23/19 Surgical History: Surgical History (Last Reviewed 05/23/19 @ 04:41 by Buddy Olson MD) Stented coronary artery (Chronic) Z95.5 Cutting Balloon and TAMI (3.0X18 mm Xience) Proximal LAD 04/18/2012; Rotational atherectomy to proximal, id and distal RCA with two overlapping 4.0 X 38 Synergy TAMI ([facility] main) History of back surgery Z98.890 LATE 70'S History of colectomy Z90.49 History of laparoscopic cholecystectomy Z90.49 History of total right knee replacement Z96.651 Hx of foot surgery Z98.890 S/P left rotator cuff repair Z98.890 history left A-V fistula Surgical History: appendectomy, cholecystectomy, hysterectomy, total knee arthroplasty, - - Left upper extremity fistula, back surgery, colon resection with history of diverticulitis, GI bleed, right knee surgery, right total knee replacement, right foot surgery, left knee surgery, left foot surgery, PCI. Psychiatric History: No pertinent psych hx [employer] History: No pertinent [employer]IC history Lives: With Family, Senior Living Smoking Status: Former smoker Tobacco Use: Cigarettes Alcohol: None Drugs: None - *Family History Maternal Family History: Family History (Last Reviewed 05/23/19 @ 04:42 by Buddy Olson MD) Sister Diabetes Heart disease Hypertension Anemia History Items: Cancer - uterine Paternal Family History: Family History (Last Reviewed 05/23/19 @ 04:42 by Buddy Olson MD) Sister Diabetes Heart disease Hypertension Anemia History Items: Cancer Sibling Family History: Family History (Last Reviewed 05/23/19 @ 04:42 by Buddy Olson MD) Sister Diabetes Heart disease Hypertension Anemia History Items: Diabetes Review of Systems Constitutional: Denies: Chills, Fever, Weight Change HEENT: Denies: Head Aches, Sinus Congestion, Sinus Drainage Cardiovascular: Reports: Chest Pain. Denies: Palpitations Respiratory: Denies: Cough, Shortness of breath at rest, Sputum production Gastrointestinal: Denies: Abdominal Pain, Nausea, Vomiting Genitourinary: Denies: Dysuria Musculoskeletal: Reports: Shoulder Pain. Denies: Joint Pain, Joint Tenderness Skin: Denies: Rash, Wounds Neurological: Denies: Numbness, Tingling, Focal weakness Psychiatric: Denies: Anxiety, Depression, Homicidal Ideations, Suicidal Ideations Hematologic/ Lymphatic: Denies: Easy Bruising, Easy Bleeding VTE Information - Inpt Only VTE Present on Admission: No VTE Mechan Device Prophylaxis: None VTE Pharm Prophylaxis ordered?: Yes Patient Problems: Active and Suspected Problems (Last Reviewed 05/23/19 @ 04:42 by Buddy Olson MD) Chest pain at rest (Acute) Chest pain (Acute) Chest pain (Acute) - Physical Exam Vitals/I&O's: Vital Signs Temp Pulse Resp BP Pulse Ox 98.7 F 86 22 H 153/57 H 95 05/22/19 22:57 05/23/19 01:14 05/23/19 01:14 05/22/19 22:57 05/23/19 01:14 Oxygen Flow Rate (L/min) 2 Oxygen Delivery Method Room Air Weight: 88.6 kg Body Mass Index (BMI) 32.5 Finger Stick Blood Glucose 99 General: Alert, Oriented x3, Cooperative, - - Patient writhing in pain secondary to chest pain. HEENT: Atraumatic, Normocephalic Neck: Supple, Trachea Midline Lungs: Clear to auscultation, Normal air movement Cardiovascular: Normal S1, Normal S2, Irregular Rate, Murmur Abdomen: Bowel Sounds Present, Soft, Non Tender Extremities: No edema, Capillary Refill Less than 3 Seconds Skin: - - Indurated bilateral legs. Musculoskeletal: No Tenderness to Palpation of Joints or Extremities Neurological: Cranial nerves II-XII grossly intact Psych/Mental Status: - - Patient writhing in pain. Laboratory Results 05/22/19 23:10: WBC 8.7, RBC 3.74 L, Hgb 11.3 L, Hct 37.1, MCV 99.2 H, MCH 30.2, MCHC 30.5 L, RDW Std Deviation 65.5 H, RDW Coeff of Susan 17.9 H, Plt Count 175, MPV 9.3, Immature Gran % (Auto) 0.200, Neut % (Auto) 72.6 H, Lymph % (Auto) 16.7 L, [place] % (Auto) 8.5, Eos % (Auto) 1.2, Baso % (Auto) 0.8, Absolute Neuts (auto) 6.3, Absolute Lymphs (auto) 1.45, Nucleated RBC % 0, Differential Comment SCANNED, Anisocytosis 1+ 05/22/19 23:10: Sodium 130 L, Potassium 4.3, Chloride 93 L, Carbon Dioxide 30.0, Anion Gap 7, BUN 33 H, Creatinine 4.66 H, Estim Creat Clear Calc 9.24, Est GFR (MDRD) Af Amer 12 L, Est GFR (MDRD) Non-Af 10 L, BUN/Creatinine Ratio 7.1 L, Glucose 164 H, Calcium 8.8, Troponin I 0.024 Assessment/Plan All Active Problems (Last Reviewed 05/23/19 @ 04:42 by Buddy Olson MD) Chest pain at rest (Acute) Chest pain (Acute) Chest pain (Acute) Closed left scapular fracture (Acute) GI bleed (Resolved) The patient is a 74 year old F detention resident with a significant history of end-stage renal disease on dialysis; non-ST elevation with stents; ascites with frequent paracentesis; hypothyroidism; hypertension; diabetes mellitus presented with excruciating progressively worsening nonradiating substernal aching chest pain. Chest pain Place on a monitored bed at the PCU CXR independently reviewed confirms a fracture of the left clavicle and bilateral basilar airspace disease and or/atelectasis. Of note the clavicular fracture is not new. See HPI. EKG independently reviewed confirms controlled A. fib ASA 81 mg p.o. daily continued Morphine as needed for pain Statin: High-intensity statin continued Anti-P2Y12 Receptor antibody: Plavix continued Imdur, and losartan continued. Appears that nitroglycerin is not helping her pain to consider titrating Imdur up. Serial cardiac enzymes Stat EKG as needed for chest pain Discussed with emergency doctor to get a CTA of chest. There has been diff iculty getting a IV line for contrast administration for CTA by multiple nurses. With ultrasound examination emergency department doctor could not properly visualize internal jugular veins. Emergency department doctor will attempt subclavian. If CTA is obtained and CTA is negative consider adding ranolazine to patient's regimen; controlling chest pain with a titrating of morphine/Dilaudid; and c onsulting cardiology. If CTA is positive treatment as necessary. End-stage renal disease on dialysis Likely from Diabetic nephropathy Sevelamer continued. Calorie controlled diet with low phosphate and low potassium. Nephrology consult. Diabetes mellitus type II with polyneuropathy and end-stage renal disease Patient with hyperglycemia Placed on long acting insulin; and Accu-Cheks 3 times daily with correction scale insulin. Continue same regimen. Gabapentin continued. Hypertension Blood pressure is not within goal Losartan and Imdur continued Acute fracture of left scapula Continue home Tylenol PRN In a sling. Chronic atrial fibrillation Aspirin continued. In controlled A. fib. Restless leg syndrome Requip continued GERD PPI continued Insomnia Melatonin continued DVT prophylaxis Heparin 5000 units subcutaneous every 12 hours ordered. Code Visit OBSV E&M: [id number] Initial observation care L3
[2019-05-23] MEDS: HYDROmorphone 0.5 MG/0.5 ML SYRINGE IV ×2 (01:35→02:38)
--- NOTE | 2019-05-23 01:38 | EKG12_ITS ---
Test Reason : AFIB Blood Pressure : / mmHG Vent. Rate : 060 BPM Atrial Rate : 052 BPM P-R Int : 000 ms QRS Dur : 096 ms QT Int : 436 ms P-R-T Axes : 000 051 040 degrees QTc Int : 436 ms Atrial fibrillation Low voltage QRS Abnormal ECG Confirmed by ARI NEWMAN, DESHAWN ([id number]), design editor LEONCIO NAIR ([id number] on 05/28/2019 12:09:43 PM Referred By: Buddy Olson Confirmed By:DESHAWN CHAPMAN MD
--- NOTE | 2019-05-23 04:34 | RAD_ITS ---
STUDY: X-RAY CHEST REASON FOR EXAM: Female, 74 years old patient presents for documentation of line placement. TECHNIQUE: Single AP portable view of the chest. COMPARISON: May 22, 2019 FINDINGS: Cardiac monitoring leads are present. Right-sided central venous catheter is present in the subclavian vein and the tip of the catheter is in the right atrium. The lungs are expanded. There is prominence of the bronchovascular markings. There appear to be small pleural effusions. There is moderate cardiac enlargement. Normal mediastinum and roxy. Normal visualized pulmonary arteries. There is atherosclerotic calcification of the aortic arch with tortuosity. There is demineralization of the osseous structures. Appears to be a right-sided rib fracture involving the sixth rib. There is no demonstrated abnormality of the visualized soft tissue structures of the upper abdomen. RAD/CXR for Line Placement IMPRESSION: 1. Cardiomegaly with pulmonary congestion. 2. Appropriate positioning of right-sided central venous catheter. Electronically Signed: Adela Syed MD at 6:52 EST , Service support ,
--- NOTE | 2019-05-23 04:37 | CT_ITS ---
STUDY: CTA CHEST REASON FOR EXAM: Female, 74 years old. CP X 2 HOURS, SHARP STABBING MID STERNAL PAIN. H/O NONSTEMI W/ STENTS, CAD, A-FIB RADIATION DOSAGE (If Supplied By Facility): CTDIvol = ( 12.32 ) mGy, DLP = ( 1337.22 ) mGycm TECHNIQUE: The examination was performed with the intravenous administration of 100 ML ISOVUE 370. Post-processing of the angiographic images was performed, with multiplanar reformation and 3D reconstruction. Individualized dose optimization techniques were used for this CT. COMPARISON: None. FINDINGS: TRACHEA, THYROID, ESOPHAGUS: No tracheomalacia,stricture or wall thickening. Thyroid and esophagus are normal CARDIOVASCULAR SYSTEM: The thoracic aorta is normal with no focal aneurysm or dissection. There are no abnormal calcifications/metallic densities at the aortic root. The pulmonary trunk and the left and right pulmonary arteries and their lobar and segmental branches all fail to show any abnormal and persistent filling defects to indicate the presence of pulmonary embolism. The heart is slightly enlarged. There is pericardial effusion. Coronary artery calcification MAYKEL AND LYMPH NODES: No hilar masses and no mediastinal, hilar, axillary or supraclavicular adenopathy LUNGS, LOW-ATTENUATION: No traction bronchiectasis, honeycombing,emphysema, lung cysts or cavitations LUNGS, HIGH ATTENUATION: No nodules/masses, ground glass opacities/consolidations or increased interstitial markings. Mild compressive atelectatic changes in the neck bases are LUNGS, MOSAIC/CRAZY PAVING: Not evident PLEURA AND CHEST WALL: No pneumothoraces,rib fractures or any osteolytic/osteoblastic changes . Bilateral small pleural effusions The soft tissue chest wall including the breasts are normal IMPRESSION: Cardiomegaly with pericardial effusion. No evidence of any pulmonary embolism. The thoracic aorta is normal with no dissection. Small pleural effusions bilaterally with atelectatic changes in the lower lobes Electronically Signed: Jama Anderson MD at 7:50 EST Tel , Service support , STUDY: CTA OF THE ABDOMINAL AORTA AND BILATERAL LOWER EXTREMITIES REASON FOR EXAM: Female, 74 years old. CP X 2 HOURS, SHARP STABBING MID STERNAL PAIN. H/O NONSTEMI W/ STENTS, CAD, A-FIB RADIATION DOSAGE (If Supplied By Facility): CTDIvol = ( 12.32 ) mGy, DLP = ( 1337.22 ) mGycm TECHNIQUE: Axial CT angiography multi-detector data acquisition was obtained from the to the following intravenous administration of 100 ML ISOVUE 370. Axial images and MIP images were reconstructed from the axial data set. Post-processing of the angiographic images was performed, with multiplanar reformation and 3D reconstruction. Individualized dose optimization techniques were used for this CT. TECHNICAL QUALITY: Good COMPARISON: None. FINDINGS The abdominal aorta visualized is integrity and shows no focal aneurysm or dissection. Normal takeoffs of the celiac axis, SMA, JANNETTE and renal arteries. The liver is congested and slightly enlarged No dilated intrahepatic biliary radicles. The gallbladder is normal with no calcifications within it. There is no pericholecystic fluid collection or streakiness The spleen is normal. The pancreas is normal. Both adrenals are normal. The kidneys are atrophic with no hydronephrosis The stomach is normal. There is no bowel distention, acute appendicitis or diverticulitis. No constricting lesions are seen in large bowel. The abdominal wall is intact with no hernias. Extensive anasarca. Ascitic fluid around the liver and spleen There is no retrocrural, retroperitoneal or mesenteric adenopathy. Degenerative changes of the lower lumbosacral spine and facet joints . CT/CTA Chest W/WO Contrast IMPRESSION: Extensive anasarca. The aorta shows no focal aneurysms or dissection Ascitic fluid around the liver and spleen and in the upper pelvis. Minimal congestion with hepatomegaly. Atrophic kidneys. No hydronephrosis. No renal calculi. No intestinal obstruction. Degenerative changes of the lumbosacral spine and facet joints Electronically Signed: Jama Anderson MD at 7:59 EST Tel , Service support ,
--- NOTE | 2019-05-23 04:49 | CT_ITS ---
STUDY: CTA CHEST REASON FOR EXAM: Female, 74 years old. CP X 2 HOURS, SHARP STABBING MID STERNAL PAIN. H/O NONSTEMI W/ STENTS, CAD, A-FIB RADIATION DOSAGE (If Supplied By Facility): CTDIvol = ( 12.32 ) mGy, DLP = ( 1337.22 ) mGycm TECHNIQUE: The examination was performed with the intravenous administration of 100 ML ISOVUE 370. Post-processing of the angiographic images was performed, with multiplanar reformation and 3D reconstruction. Individualized dose optimization techniques were used for this CT. COMPARISON: None. FINDINGS: TRACHEA, THYROID, ESOPHAGUS: No tracheomalacia,stricture or wall thickening. Thyroid and esophagus are normal CARDIOVASCULAR SYSTEM: The thoracic aorta is normal with no focal aneurysm or dissection. There are no abnormal calcifications/metallic densities at the aortic root. The pulmonary trunk and the left and right pulmonary arteries and their lobar and segmental branches all fail to show any abnormal and persistent filling defects to indicate the presence of pulmonary embolism. The heart is slightly enlarged. There is pericardial effusion. Coronary artery calcification MAYKEL AND LYMPH NODES: No hilar masses and no mediastinal, hilar, axillary or supraclavicular adenopathy LUNGS, LOW-ATTENUATION: No traction bronchiectasis, honeycombing,emphysema, lung cysts or cavitations LUNGS, HIGH ATTENUATION: No nodules/masses, ground glass opacities/consolidations or increased interstitial markings. Mild compressive atelectatic changes in the neck bases are LUNGS, MOSAIC/CRAZY PAVING: Not evident PLEURA AND CHEST WALL: No pneumothoraces,rib fractures or any osteolytic/osteoblastic changes . Bilateral small pleural effusions The soft tissue chest wall including the breasts are normal IMPRESSION: Cardiomegaly with pericardial effusion. No evidence of any pulmonary embolism. The thoracic aorta is normal with no dissection. Small pleural effusions bilaterally with atelectatic changes in the lower lobes Electronically Signed: Jama Anderson MD at 7:50 EST Tel , Service support , STUDY: CTA OF THE ABDOMINAL AORTA AND BILATERAL LOWER EXTREMITIES REASON FOR EXAM: Female, 74 years old. CP X 2 HOURS, SHARP STABBING MID STERNAL PAIN. H/O NONSTEMI W/ STENTS, CAD, A-FIB RADIATION DOSAGE (If Supplied By Facility): CTDIvol = ( 12.32 ) mGy, DLP = ( 1337.22 ) mGycm TECHNIQUE: Axial CT angiography multi-detector data acquisition was obtained from the to the following intravenous administration of 100 ML ISOVUE 370. Axial images and MIP images were reconstructed from the axial data set. Post-processing of the angiographic images was performed, with multiplanar reformation and 3D reconstruction. Individualized dose optimization techniques were used for this CT. TECHNICAL QUALITY: Good COMPARISON: None. FINDINGS The abdominal aorta visualized is integrity and shows no focal aneurysm or dissection. Normal takeoffs of the celiac axis, SMA, JANNETTE and renal arteries. The liver is congested and slightly enlarged No dilated intrahepatic biliary radicles. The gallbladder is normal with no calcifications within it. There is no pericholecystic fluid collection or streakiness The spleen is normal. The pancreas is normal. Both adrenals are normal. The kidneys are atrophic with no hydronephrosis The stomach is normal. There is no bowel distention, acute appendicitis or diverticulitis. No constricting lesions are seen in large bowel. The abdominal wall is intact with no hernias. Extensive anasarca. Ascitic fluid around the liver and spleen There is no retrocrural, retroperitoneal or mesenteric adenopathy. Degenerative changes of the lower lumbosacral spine and facet joints . CT/CTA Abdomen W/WO Contrast IMPRESSION: Extensive anasarca. The aorta shows no focal aneurysms or dissection Ascitic fluid around the liver and spleen and in the upper pelvis. Minimal congestion with hepatomegaly. Atrophic kidneys. No hydronephrosis. No renal calculi. No intestinal obstruction. Degenerative changes of the lumbosacral spine and facet joints Electronically Signed: Jama Anderson MD at 7:59 EST Tel , Service support ,
--- NOTE | 2019-05-23 09:28 | NURSING ---
PER DR WYMAN, PATIENT GOING TO ICU
--- NOTE | 2019-05-23 09:44 | NURSING ---
ICU 1
[2019-05-23] MEDS: Lactated Ringers 1,000 ML 999 ML IV (10:04)
--- NOTE | 2019-05-23 11:00 | EKG12_ITS ---
Test Reason : CP Blood Pressure : / mmHG Vent. Rate : 088 BPM Atrial Rate : 079 BPM P-R Int : 000 ms QRS Dur : 086 ms QT Int : 358 ms P-R-T Axes : 000 037 038 degrees QTc Int : 433 ms Atrial fibrillation with premature ventricular or aberrantly conducted complexes Low voltage QRS Nonspecific ST and T wave abnormality Abnormal ECG Confirmed by ARI NEWMAN, DESHAWN ([id number]), food expeditor LEONCIO NAIR ([id number] on 05/28/2019 12:59:49 PM Referred By: Buddy Olson Confirmed By:DESHAWN CHAPMAN MD
--- NOTE | 2019-05-23 11:07 | PCM.CONS.R ---
Consultation - Renal 05/23/19 PCP/ Referring MD: Requesting physician: [] Primary care physician: Walter Chao MD Reason for Consultation:: ESRD HD MWF - History of Present Illness History of Present Illness: The patient is a 74 year old F [facility] resident with ESRD due to diabetes on HD MWF last dialysis on Sunday, next dialysis today admitted for persistent substernal chest pain since yesterday morning. She denied any pain to her neck or arm. She denies any shortness of breath. Denies history of cough or fever, chills. She is writhing in pain in ICU despite receiving Dilaudid and morphine in the emergency room. Her troponin was negative x2. Cardiology consulted. She was recently hospitalized May 13- for left scapular fracture day after discharge from [facility]. She was readmitted to [facility] following her hospitalization. She has a history of liver cirrhosis required with ascites requiring frequent paracentesis. She has hypotension episodes requiring midodrine on hemodialysis days. We have stopped all her blood pressure medications due to her hypotension. She has been on Plavix for coronary artery disease. She has a history of GI bleed requiring multiple blood transfusions. She is high risk for surgery and patient declined surgical intervention in the past. Her hemoglobin is stable now on CARMEN therapy on dialysis. She has high intradialytic fluid gains chronically. She was started on IV fluid hydration for hypotension. So far she has received 500 cc of fluid bolus. Currently she is full code. She expressed she did not want to . - Allergies Allergies: Allergies lisinopril Allergy (Severe, Verified 05/22/19 22:57) Angioedema nebivolol HCl [From Bystolic] Adverse Reaction (Severe, Verified 05/22/19 22:57) bradycardia BRADYCARDIA - Current Medications Current Medications: Current Medications Acetaminophen (Tylenol) 650 mg PO Q6H PRN PRN PRN Reason: Pain Score 1-3/Temp > 100.7 F Aspirin (Ecotrin) 81 mg PO DAILY@0800 [facility] Atorvastatin Calcium (Lipitor) 80 mg PO QHS [facility] Clopidogrel Bisulfate (Plavix) 75 mg PO DAILY [facility] Dextrose (D50w Syringe) 0 gm IV X1 PRN; Protocol PRN Reason: Hypoglycemia Docusate Sodium (Colace) 100 mg PO BID [facility] Gabapentin (Neurontin) 200 mg PO BID [facility] Glucagon () 1 mg IM .X1 PRN PRN Reason: Hypoglycemia Heparin Sodium (Porcine) (Heparin Na) 5,000 unit SC Q12 [facility] Insulin Glargine (Lantus (Bkc)) 11 units SC QHS [facility] Insulin Human Lispro (Humalog Kwikpen (Bk)) 0 unit SC TIDAC [facility]; Protocol Isosorbide Mononitrate (Imdur) 30 mg PO DAILY [facility] Midodrine (Proamatine) 10 mg PO DAILY [facility] Morphine Sulfate () 2 mg IV Q3H PRN PRN PRN Reason: Pain Score 6-10/10 Morphine Sulfate () 3 mg IV Q3H PRN PRN PRN Reason: chest pain 4-10/10 Non-Formulary Medication (Cholecalciferol (Vitamin D3) [Vitamin D3]) 5,000 unit PO MOWEFR [facility] Non-Formulary Medication (Ropinirole Hcl [Requip]) 0.5 mg PO QHS [facility] Non-Formulary Medication (Melatonin) 5 mg PO QHS [facility] Pantoprazole Sodium (Protonix) 40 mg PO DAILY [facility] Sevelamer Carbonate (Renvela) 2,400 mg PO TIDCM [facility] Sodium Chloride () 10 - 40 ml IV UD PRN PRN Reason: Multilumen/Alcantara Flush Sodium Chloride (0.9% Nacl (Sterile) Posiflush) 10 - 40 ml IV UD PRN PRN Reason: Port access or dressing change Sodium Chloride () 10 - 40 ml IV UD PRN PRN Reason: SALINE FLUSH Sodium Chloride () 10 - 40 ml IV UD PRN PRN Reason: Multilumen/Alcantara Flush Sodium Chloride (0.9% Nacl (Sterile) Posiflush) 10 - 40 ml IV UD PRN PRN Reason: Port access or dressing change - Past Medical History Past Medical History (Chronic Problems): Chronic Problems (Last Reviewed 05/23/19 @ 04:42 by Buddy Olson MD) History of GI bleed (Chronic) History of non-ST elevation myocardial infarction (NSTEMI) (Chronic 07/05/16) Atherosclerotic heart disease of [place] coronary artery without angina pectoris (Chronic) Stented coronary artery (Chronic) Cutting Balloon and TAMI (3.0X18 mm Xience) Proximal LAD 04/18/2012; Rotational atherectomy to proximal, id and distal RCA with two overlapping 4.0 X 38 Synergy TAMI ([facility] main) Ascites (Chronic) Pancytopenia (Chronic) Other specified peripheral vascular diseases (Chronic) Afib (Chronic) Congenital coronary artery anomaly (Chronic) Bradycardia (Chronic) Diabetes mellitus, type II (Chronic) Hyperlipidemia (Chronic) Hypothyroidism (Chronic) Anemia in chronic kidney disease (Chronic) Hypertension (Chronic) End stage renal disease on dialysis (Chronic) - Past Surgical History Surgical History: appendectomy, cholecystectomy, hysterectomy, total knee arthroplasty, - - Left upper extremity fistula, back surgery, colon resection with history of diverticulitis, GI bleed, right knee surgery, right total knee replacement, right foot surgery, left knee surgery, left foot surgery, PCI. - Social History Smoking Status: Former smoker Alcohol: None Drugs: None - Family History Maternal Family History: Family History (Last Reviewed 05/23/19 @ 04:42 by Buddy Olson MD) Sister Diabetes Heart disease Hypertension Anemia History Items: Cancer - uterine Paternal Family History: Family History (Last Reviewed 05/23/19 @ 04:42 by Buddy Olson MD) Sister Diabetes Heart disease Hypertension Anemia History Items: Cancer Sibling Family History: Family History (Last Reviewed 05/23/19 @ 04:42 by Buddy Olson MD) Sister Diabetes Heart disease Hypertension Anemia History Items: Diabetes Review of Systems Constitutional: Denies: Anorexia, Chills, Fever HEENT: Reports: Head Aches Cardiovascular: Reports: Chest Pain, Chest Tightness, - - Left scapular pain from recent fall and fracture Respiratory: Denies: Cough, Shortness of Breath Gastrointestinal: Reports: - - Ascites. Denies: Abdominal Pain, Constipation, Diarrhea, Nausea, Vomiting Musculoskeletal: Reports: Shoulder Pain - Status post fracture from fall. Denies: Arm Pain Neurological: Reports: - - Generalized debilitation and ECF for therapy. Denies: Tremor, Seizures Psychiatric: Reports: Anxiety, Depression Hematologic/ Lymphatic: Reports: Anemia. Denies: Hx of blood clot Patient Problems: Active and Suspected Problems (Last Reviewed 05/23/19 @ 04:42 by Buddy Olson MD) Chest pain at rest (Acute) Chest pain (Acute) Chest pain (Acute) - Physical Exam Vitals/I&O's: Vital Signs Temp Pulse Resp BP Pulse Ox 97.1 F L 88 15 107/71 99 05/23/19 04:40 05/23/19 10:05 05/23/19 10:05 05/23/19 10:05 05/23/19 10:05 Oxygen Flow Rate (L/min) 15 Oxygen Delivery Method Non-Rebreather Weight: 83.3 kg Body Mass Index (BMI) 30.5 Finger Stick Blood Glucose 99 General: Alert, Oriented x3, - - In discomfort from chest pain Oral: Dry Mucosa Neck: No JVD Lungs: Clear to auscultation Cardiovascular: Regular rate, Murmur Abdomen: Bowel Sounds Present, Soft, Non Tender, Distended, Obese, - - Ascites Extremities: Edema - Mild bilateral lower extremity Skin: No rashes Musculoskeletal: - - Substernal chest pain with light palpation Neurological: - - Generalized weakness, debilitation Psych/Mental Status: Alert and oriented to time, place, person, mood and affect Laboratory Results 05/22/19 23:10: WBC 8.7, RBC 3.74 L, Hgb 11.3 L, Hct 37.1, MCV 99.2 H, MCH 30.2, MCHC 30.5 L, RDW Std Deviation 65.5 H, RDW Coeff of Susan 17.9 H, Plt Count 175, MPV 9.3, Immature Gran % (Auto) 0.200, Neut % (Auto) 72.6 H, Lymph % (Auto) 16.7 L, Kleberg % (Auto) 8.5, Eos % (Auto) 1.2, Baso % (Auto) 0.8, Absolute Neuts (auto) 6.3, Absolute Lymphs (auto) 1.45, Nucleated RBC % 0, Differential Comment SCANNED, Anisocytosis 1+ 05/22/19 23:10: Sodium 130 L, Potassium 4.3, Chloride 93 L, Carbon Dioxide 30.0, Anion Gap 7, BUN 33 H, Creatinine 4.66 H, Estim Creat Clear Calc 9.24, Est GFR (MDRD) Af Amer 12 L, Est GFR (MDRD) Non-Af 10 L, BUN/Creatinine Ratio 7.1 L, Glucose 164 H, Calcium 8.8, Troponin I 0.024 05/23/19 03:06: Troponin I 0.022 05/23/19 06:10: Troponin I 0.034 Clinical Impression(s) from Imaging Studies Chest X-Ray 05/22/19 23:26 IMPRESSION: 1. Fracture of the left clavicle. 2. Bilateral basilar airspace disease and/or atelectasis. Electronically Signed: Adela Syed MD at 0:13 EST , Service support , Chest X-Ray 05/23/19 04:34 IMPRESSION: 1. Cardiomegaly with pulmonary congestion. 2. Appropriate positioning of right-sided central venous catheter. Electronically Signed: Adela Syed MD at 6:52 EST , Service support , Chest CTA 05/23/19 04:37 IMPRESSION: Extensive anasarca. The aorta shows no focal aneurysms or dissection Ascitic fluid around the liver and spleen and in the upper pelvis. Minimal congestion with hepatomegaly. Atrophic kidneys. No hydronephrosis. No renal calculi. No intestinal obstruction. Degenerative changes of the lumbosacral spine and facet joints Electronically Signed: Jama Anderson MD at 7:59 EST Tel , Service support , Current Medications Acetaminophen (Tylenol) 650 mg PO Q6H PRN PRN PRN Reason: Pain Score 1-3/Temp > 100.7 F Aspirin (Ecotrin) 81 mg PO DAILY@0800 [facility] Atorvastatin Calcium (Lipitor) 80 mg PO QHS [facility] Clopidogrel Bisulfate (Plavix) 75 mg PO DAILY [facility] Dextrose (D50w Syringe) 0 gm IV X1 PRN; Protocol PRN Reason: Hypoglycemia Docusate Sodium (Colace) 100 mg PO BID [facility] Gabapentin (Neurontin) 200 mg PO BID [facility] Glucagon () 1 mg IM .X1 PRN PRN Reason: Hypoglycemia Heparin Sodium (Porcine) (Heparin Na) 5,000 unit SC Q12 [facility] Insulin Glargine (Lantus (Bkc)) 11 units SC QHS [facility] Insulin Human Lispro (Humalog Kwikpen (Bk)) 0 unit SC TIDAC [facility]; Protocol Isosorbide Mononitrate (Imdur) 30 mg PO DAILY [facility] Midodrine (Proamatine) 10 mg PO DAILY [facility] Morphine Sulfate () 2 mg IV Q3H PRN PRN PRN Reason: Pain Score 6-10/10 Morphine Sulfate () 3 mg IV Q3H PRN PRN PRN Reason: chest pain 4-10/10 Non-Formulary Medication (Cholecalciferol (Vitamin D3) [Vitamin D3]) 5,000 unit PO MOWEFR [facility] Non-Formulary Medication (Ropinirole Hcl [Requip]) 0.5 mg PO QHS [facility] Non-Formulary Medication (Melatonin) 5 mg PO QHS [facility] Pantoprazole Sodium (Protonix) 40 mg PO DAILY [facility] Sevelamer Carbonate (Renvela) 2,400 mg PO TIDCM [facility] Sodium Chloride () 10 - 40 ml IV UD PRN PRN Reason: Multilumen/Alcantara Flush Sodium Chloride (0.9% Nacl (Sterile) Posiflush) 10 - 40 ml IV UD PRN PRN Reason: Port access or dressing change Sodium Chloride () 10 - 40 ml IV UD PRN PRN Reason: SALINE FLUSH Sodium Chloride () 10 - 40 ml IV UD PRN PRN Reason: Multilumen/Alcantara Flush Sodium Chloride (0.9% Nacl (Sterile) Posiflush) 10 - 40 ml IV UD PRN PRN Reason: Port access or dressing change Assessment/Plan All Active Problems (Last Reviewed 05/23/19 @ 04:42 by Buddy Olson MD) Chest pain at rest (Acute) Chest pain (Acute) Chest pain (Acute) Closed left scapular fracture (Acute) GI bleed (Resolved) 1. ESRD hemodialysis Sunday, Sunday, Sunday. Will arrange for routine hemodialysis today. 2. Acute chest pain history of left scapular fracture from fall 2 weeks ago. Cardiology consulted. Troponin negative x2 3. DM type II primary service management 4. Hypotension likely due to liver cirrhosis would avoid fluid resuscitation since patient already has high fluid gains in between her dialysis. Has been difficult to remove fluid due to her high gains and hypotension. Add midodrine 10 mg daily 5. History of GI bleed with anemia hemoglobin stable. 6. Liver cirrhosis with ascites requiring frequent paracentesis
[2019-05-23] MEDS: 0.9% Saline Lock 10 ML Syringe IV ×2 (11:48→20:20)
[2019-05-23] MEDS: Morphine 2 MG/ML Syringe IV ×3 (11:48→17:28)
--- NOTE | 2019-05-23 13:55 | PN_ITS ---
Patient Problems: Active and Suspected Problems (Last Reviewed 05/23/19 @ 04:42 by Buddy Olson MD) Chest pain at rest (Acute) Chest pain (Acute) Chest pain (Acute) Reason for Visit: chest pain Subjective: Patient seen in the ER. Very somnolent, dry, drowsy and lethargic. Not responding to simple question. Patient still states chest pain on lower chest and epigastric region. Vitals/I&O's: Vital Signs Temp Pulse Resp BP Pulse Ox 97.1 F L 87 16 107/49 L 90 05/23/19 04:40 05/23/19 07:15 05/23/19 07:15 05/23/19 07:15 05/23/19 07:15 Oxygen Flow Rate (L/min) 2 Oxygen Delivery Method Room Air Weight: 195 lb 5.273 oz Body Mass Index (BMI) 32.5 Finger Stick Blood Glucose 99 General: Confused, Disoriented, Lethargic HEENT: Atraumatic, PERRLA, EOMI, Normocephalic Oral: No Gingival or Mucosal Lesions/ Ulcerations, Dry Mucosa Neck: Supple, No JVD, Negative Carotid Bruits Lungs: No rhonchi, No wheeze, No rales, Diminished - Air entry diminished right lung base Cardiovascular: Regular rate, Normal S1, Normal S2, No murmurs, Irregular Rate Abdomen: Bowel Sounds Present, Soft, Non-Distended, Tender - Just over epigastrium, - - Dressing over recent right-sided paracentesis. Extremities: Edema Skin: No rashes Musculoskeletal: Arthritic Changes Neurological: Deep Tendon Reflexes 2+/4 and Symmetrical, - - Neuro cannot be evaluated in detail as patient is somnolent. Laboratory Results 05/22/19 23:10: WBC 8.7, RBC 3.74 L, Hgb 11.3 L, Hct 37.1, MCV 99.2 H, MCH 30.2, MCHC 30.5 L, RDW Std Deviation 65.5 H, RDW Coeff of Susan 17.9 H, Plt Count 175, MPV 9.3, Immature Gran % (Auto) 0.200, Neut % (Auto) 72.6 H, Lymph % (Auto) 16.7 L, [place] % (Auto) 8.5, Eos % (Auto) 1.2, Baso % (Auto) 0.8, Absolute Neuts (auto) 6.3, Absolute Lymphs (auto) 1.45, Nucleated RBC % 0, Differential Comment SCANNED, Anisocytosis 1+ 05/22/19 23:10: Sodium 130 L, Potassium 4.3, Chloride 93 L, Carbon Dioxide 30.0, Anion Gap 7, BUN 33 H, Creatinine 4.66 H, Estim Creat Clear Calc 9.24, Est GFR (MDRD) Af Amer 12 L, Est GFR (MDRD) Non-Af 10 L, BUN/Creatinine Ratio 7.1 L, Glucose 164 H, Calcium 8.8, Troponin I 0.024 05/23/19 03:06: Troponin I 0.022 05/23/19 06:10: Troponin I 0.034 Current Medications Lactated Ringer's () 1,000 mls @ 999 mls/hr IV .Q1H1M FARZANA Stop: 05/23/19 08:35 STROKE Vital Signs/Narrative: Vital Signs Temp Pulse Resp BP Pulse Ox 05/23/19 07:15 87 16 107/49 L 90 05/23/19 06:13 86 17 105/51 L 91 05/23/19 04:41 85 16 137/55 H 94 05/23/19 04:40 97.1 F L 85 16 137/55 H 94 Medical Necessity - Tobacco Use Smoking Status: Former smoker Tobacco Use: Cigarettes Assessment/Plan All Active Problems (Last Reviewed 05/23/19 @ 04:42 by Buddy Olson MD) Chest pain at rest (Acute) Chest pain (Acute) Chest pain (Acute) Closed left scapular fracture (Acute) GI bleed (Resolved) This is a 74 y.o female with multiple comorbidities admitted with chest pain. He describes chest pain lower chest and epigastrium. The patient blood pressure is steadily dropped from 153/57 207/49 in ER. Patient is very somnolent and delayed response to simple questions along with confusion disorientation. Started on Ringer lactate 1 L bolus and then reevaluate. Patient has multiple comorbidities including decompensated [place] related cirrhosis decompensated with ascites, thrombocytopenia, ESRD on hemodialysis Sunday, Sunday and Sunday, coronary artery disease and severe pulmonary hypertension. 1. Acute hypoxic respiratory failure mostly secondary to acute on chronic heart failure with preserved EF and right ventricular failure, pulmonary hypertension small bilateral pleural effusion, atelectasis: The patient is being admitted in ICU. Echo done in February 2018 reported as The estimated ejection fraction is 65 %. Severely dilated right ventricle. The left atrium is severely enlarged. The right atrium is moderately enlarged. Trivial mitral valve insufficiency. Moderately severe (3+) tricuspid valve insufficiency. Right ventricular systolic pressure estimated to be 35 mmHg, but may be underestimated. Mild aortic stenosis. Compared to echo report dated 11/19/2017, no appreciable changes noted. The patient blood pressure was borderline cyst; systolic in low 100s in ER. IV fluid was discontinued. Discussed with branch officer and clinical research assistant. Patient was on nonrebreather in ICU and was changed to 50% Ventimask in ICU. Started on midodrine 10 mg daily by clinical research assistant. Payloader Machine Operator was also consulted. 2. Atypical chest pain with history of coronary artery disease status post stents: Patient being admitted in PCU. EKG reviewed. Shows A. fib at 84 bpm. Patient has difficulty in getting line therefore right subclavian line inserted by ER physician. CTA chest and abdomen was done in ER and does not show acute aortic dissection or aneurysm or PE. Patient continues to have persistent chest pain in ICU also. 1. Recent lower GI bleed possibly due to diverticular bleed in February 2018. Is been admitted 3 times for GI bleed since February 2019.previous colonoscopy showed (05/12/18): Diverticulosis in the entire examined colon Patient carries a very high risk for colonoscopy in view of multiple comorbidities including 3 organ failure including ESRD on hemodialysis,'s decompensated cirrhosis and coronary artery disease. EGD 03/2019 reported as gastritis but otherwise normal. 3. ESRD on hemodialysis: * Paperboard Machine Operator consulted 4. Decompensated cirrhosis with ascites, thrombocytopenia with monthly para centesis; had recent paracentesis 4. Chronic hyponatremia: Hyponatremia in decompensated cirrhosis portends to bad prognosis. 5. CAD status post stent with right-sided ventricular systolic failure chronic A. fib: Aspirin, carvedilol statin and Imdur. Echo done in February 2018 reported as EF 65% with normal LV size but severely dilated RV with moderate global right ventricular systolic dysfunction suggestive of right-sided heart failure. LA severely enlarged. Right atrium moderately enlarged. 3+ TR, RVSP 35 mmHg. 6. Hypertension: Currently hypotensive. 1 L Ringer lactate ordered 7. Diabetes mellitus type II with polyneuropathy and end-stage renal disease, diabetic nephropathy: Accu-Chek SHS and cover with Humalog sliding scale 8. Other comorbidities include restless leg syndrome, insomnia, GERD Restless leg syndrome Requip continued 9. DVT prophylaxis: Heparin 5000 units cutaneous every 12 hourly. Discontinue if platelet count drops less than 50,000 or hemoglobin less than 8 g% Advanced directive/CODE STATUS: Patient has 3-4 major organ failures including cardiovascular, pulmonary with hypertension and ventricular failure, ESRD on hemodialysis, decompensated cirrhosis but wants full code to care for her which is in halfway. Out of all options given, she wants to be full code. Total time spent in [id number] encounter in discussion of advanced directive 18 minutes. Total critical time spent in care including management, review of labs and imaging and discussion with ICU care team and other physicians total 60 minutes. Clinical Impression(s) from Imaging Studies Chest X-Ray 05/22/19 23:26 IMPRESSION: 1. Fracture of the left clavicle. 2. Bilateral basilar airspace disease and/or atelectasis. Chest X-Ray 05/23/19 04:34 IMPRESSION: 1. Cardiomegaly with pulmonary congestion. 2. Appropriate positioning of right-sided central venous catheter. Chest CTA 05/23/19 04:37 IMPRESSION: Extensive anasarca. The aorta shows no focal aneurysms or dissection Ascitic fluid around the liver and spleen and in the upper pelvis. Minimal congestion with hepatomegaly. Atrophic kidneys. No hydronephrosis. No renal calculi. No intestinal obstruction. Degenerative changes of the lumbosacral spine and facet joints
[2019-05-23 14:00] LABS: Bedside Glucose 74 mg/dL (70-110)
[2019-05-23] MEDS: Clopidogrel Bisulfate 75 MG Tablet PO (14:02)
[2019-05-23] MEDS: Aspirin E.C. 81 MG Tablet PO (14:02)
--- NOTE | 2019-05-23 14:51 | CASEMGMT ---
Social Work SW met with pt spouse and daughter in pt room. Pt is from the [facility] and family plans on return. Emotional support provided to pt . Phone call to Candelaria at the [facility] and updated clinicals faxed. Precert will need obtained prior to pt return to the [facility]. Precert not started at this time due to pt medical condition. Will continue to follow for support and d/c planning. FELIPA Spivey
[2019-05-23] MEDS: Midodrine HCl 5 MG Tablet 10 MG PO (16:59)
--- NOTE | 2019-05-23 18:01 | ECHOD_ITS ---
Reason For Study: Chest Pain Procedure This was a 2D Doppler, Color Flow transthoracic echocardiogram. Exam performed portable in ICU/CCU. Left Ventricle Normal LV size. Left ventricular systolic function is normal. The estimated ejection fraction is 55 %. No regional wall motion abnormalities noted. Right Ventricle Mildly dilated right ventricle. Mild global right ventricular systolic dysfunction. Atria The left atrium is mildly enlarged. The right atrium is moderately enlarged. Mitral Valve There is mild to moderate mitral annular calcification. Mild (1+) eccentric mitral valve insufficiency. Tricuspid Valve Normal tricuspid valve. Moderate (2+) tricuspid valve insufficiency. Pulmonary artery systolic pressure is 50 mmHg. Aortic Valve Trisinus/trileaflet aortic valve. Mild focal aortic valve calcification. Mild to moderate aortic stenosis. Mean aortic valve gradient 22 mmHg. Peak aortic valve gradient 48 mmHg. Pulmonic Valve Normal pulmonic valve. Great Vessels Calcified aortic root. The pulmonary artery is normal size. Normal inferior vena cava. Pericardium/Pleural Small pericardial effusion. Small left pleural effusion. MMode/2D Measurements & Calculations LVIDd: 4.5 cm IVSd: 0.90 cm LVOT diam: 1.8 cm LVIDs: 2.9 cm LVPWd: 0.99 cm LVOT area: 2.5 cm2 RVDd: 4.3 cm FS: 35.8 % Ao root diam: 3.3 cm LAV(MOD-bp): 74.8 ml LVAd ap4: 18.8 cm2 LAV(MOD-bp) Indexed: 39.3 ml/m2 EDV(MOD-sp4): 45.5 ml LAV(MOD-sp2): 78.2 ml EDV(sp4-el): 45.1 ml LAV(MOD-sp4): 66.6 ml LVAs ap4: 10.9 cm2 ESV(MOD-sp4): 20.5 ml ESV(sp4-el): 19.5 ml EF(MOD-sp4): 55.1 % EF(sp4-el): 56.7 % SV(MOD-sp4): 25.1 ml SV(sp4-el): 25.6 ml LA A4 area: 21.6 cm2 LA dimension(2D): 4.4 cm RA A4 area: 24.5 cm2 Time Measurements MV dec time: 0.16 sec Doppler Measurements & Calculations MV E max margie: 140.7 cm/sec MV V2 max: 156.1 cm/sec MV P1/2t max margie: 148.2 cm/sec MV max P.8 mmHg MV P1/2t: 85.9 msec MV V2 mean: 80.8 cm/sec MV dec slope: 505.2 cm/sec2 MV mean P.3 mmHg MVA(P1/2t): 2.6 cm2 MV V2 VTI: 34.0 cm MVA(VTI): 1.9 cm2 Ao V2 max: 344.0 cm/sec LV V1 max: 138.9 cm/sec SV(LVOT): 65.4 ml Ao max P.5 mmHg LV V1 max P.8 mmHg Ao V2 mean: 225.1 cm/sec LV V1 mean P.5 mmHg Ao mean P.9 mmHg LV V1 mean: 101.0 cm/sec Ao V2 VTI: 65.0 cm LV V1 VTI: 26.4 cm JOSHUA(I,D): 1.0 cm2 JOSHUA(V,D): 1.0 cm2 PA V2 max: 111.3 cm/sec TR max margie: 333.2 cm/sec TR max P.4 mmHg Interpretation Summary Normal LV size. Left ventricular systolic function is normal. The estimated ejection fraction is 55 %. Mild focal aortic valve calcification. Mild to moderate aortic stenosis. Small pericardial effusion. Moderate (2+) tricuspid valve insufficiency. Ordering Physician: Micky Dixon Referring Physician: Walter Chao Performed By: Casie Bryan, ALEJANDRO, RVT
--- NOTE | 2019-05-23 18:08 | CON.PCM_ITS ---
Reason for Consult Date of Consultation: 05/23/19 Reason for Consultation: Chest pain History of Present Illness: The patient is a 74 year old F with a previous cardiac history significant for coronary artery disease previous angioplasty and stenting of the left anterior descending artery remotely with a cardiac catheterization in 2014 demonstrating widely patent stents as well as in 2017 demonstrating patent stents with anomalous occluded circumflex artery and progressive disease in the right coronary artery. She presented to the emergency room today with persistent continuous chest discomfort which has been going on. There do not appear to be any exacerbation or relieving factors. She also has a history of chronic renal failure for which she is on dialysis. In the emergency room she underwent a CAT scan of her chest to exclude abdominal and thoracic aortic aneurysm and no significant abnormality was noted. She did have evidence of a mild pericardial effusion however. She was also noted to be hypotensive. She was admitted to the intensive care unit. Her cardiac enzymes have been minimally abnormal and there were no EKG changes. Cardiology was consulted for further evaluation and management. [] Past Medical History Allergies/Adverse Reactions: Allergies lisinopril Allergy (Severe, Verified 05/22/19 22:57) Angioedema nebivolol HCl [From Bystolic] Adverse Reaction (Severe, Verified 05/22/19 22:57) bradycardia BRADYCARDIA Home Medications: Ambulatory Orders Medication Instructions Recorded Cholecalciferol (Vitamin D3) 5,000 unit PO MOWEFR 07/27/17 [Vitamin D3] pantoprazole 40 mg tablet,delayed 40 mg PO DAILY 08/21/17 release Atorvastatin Calcium [Lipitor] 80 mg PO QHS 12/26/17 Insulin Glargine [Lantus SoloStar 11 units SUBCUT QHS 05/31/18 Pen] Docusate Sodium [Colace] 100 mg PO BID 02/13/19 Ropinirole HCl [Requip] 0.5 mg PO QHS 02/13/19 Sevelamer Carbonate 2,400 mg PO TIDCM 02/13/19 Losartan Potassium [Cozaar] 50 mg PO BID #0 04/08/19 Acetaminophen [Tylenol Tablet] 650 mg PO Q6H PRN PRN tab 05/15/19 Aspirin E.C. [Ecotrin] 81 mg PO DAILY@0800 #1 tab 05/15/19 Clopidogrel Bisulfate [Plavix] 75 mg PO DAILY #1 tab 05/15/19 Gabapentin [Neurontin] 200 mg PO BID 5 Days #10 cap 05/15/19 Albuterol Sulfate 2.5 mg IH Q4H PRN PRN 05/23/19 B Complex W-C No.20/Folic Acid 1 mg PO MOWEFR 05/23/19 [Virt-Caps Softgel] Bisacodyl [Laxative Suppository] 10 mg VT DAILY PRN PRN 05/23/19 Insulin Lispro [Insulin Lispro 0 unit SQ TID 05/23/19 Kwikpen U-100] Isosorbide Mononitrate [Imdur] 30 mg PO QHS 05/23/19 Lactulose [Chronulac, Cephulac] 40 gm PO Q12H PRN PRN 05/23/19 Melatonin 5 mg PO QHS 05/23/19 Midodrine HCl 5 mg PO MOWEFR 05/23/19 Nitroglycerin 0.4 mg SL Q10M PRN PRN 05/23/19 Ondansetron HCl [Zofran] 4 mg PO Q6H PRN PRN 05/23/19 Oxycodone HCl 5 mg PO Q6H PRN PRN 05/23/19 Past Medical History (Chronic Problems): Chronic Problems (Last Reviewed 05/23/19 @ 04:42 by Buddy Olson MD) History of GI bleed (Chronic) History of non-ST elevation myocardial infarction (NSTEMI) (Chronic 07/05/16) Atherosclerotic heart disease of minto coronary artery without angina pectoris (Chronic) Stented coronary artery (Chronic) Cutting Balloon and TAMI (3.0X18 mm Xience) Proximal LAD 04/18/2012; Rotational atherectomy to proximal, id and distal RCA with two overlapping 4.0 X 38 Synergy TAMI ([facility] main) Ascites (Chronic) Pancytopenia (Chronic) Other specified peripheral vascular diseases (Chronic) Afib (Chronic) Congenital coronary artery anomaly (Chronic) Bradycardia (Chronic) Diabetes mellitus, type II (Chronic) Hyperlipidemia (Chronic) Hypothyroidism (Chronic) Anemia in chronic kidney disease (Chronic) Hypertension (Chronic) End stage renal disease on dialysis (Chronic) Surgical History: appendectomy, cholecystectomy, hysterectomy, total knee arthroplasty, - - Left upper extremity fistula, back surgery, colon resection with history of diverticulitis, GI bleed, right knee surgery, right total knee replacement, right foot surgery, left knee surgery, left foot surgery, PCI. 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 history - *Family History Maternal Family History: Family History (Last Reviewed 05/23/19 @ 04:42 by Buddy Olson MD) Sister Diabetes Heart disease Hypertension Anemia History Items: Cancer - uterine Paternal Family History: Family History (Last Reviewed 05/23/19 @ 04:42 by Buddy Olson MD) Sister Diabetes Heart disease Hypertension Anemia History Items: Cancer Sibling Family History: Family History (Last Reviewed 05/23/19 @ 04:42 by Buddy Olson MD) Sister Diabetes Heart disease Hypertension Anemia History Items: Diabetes Lives: With Family, Assisted Smoking Status: Former smoker Tobacco Use: Cigarettes Alcohol: None Drugs: None Review of Systems - Review of Systems General: Denies: Fever, Night Sweats, Fatigue HEENT: Denies: Vision Change Cardiovascular: Reports: Chest Discomfort, Chest Discomfort at Rest. Denies: Shortness of Breath, Orthopnea, PND, Peripheral Edema, Palpitations, Lightheadedness, Dizziness, Near Syncope, Syncope Respiratory: Denies: Cough, Sputum Production, Hemoptysis Gastrointestinal: Denies: Hematemesis, Hematochezia, Melena Genitourinary: Denies: Dysuria, Hematuria Skin: Denies: Rash Neurological: Denies: Dizziness Psychiatric: Denies: Anxiety Endocrine: Denies: Heat Intolerance Subjectve: Elderly lady complaining of pain and moaning almost continuously Objective: Vital Signs Temp Pulse Resp BP Pulse Ox 98.4 F 69 12 94/41 L 99 05/23/19 12:00 05/23/19 18:00 05/23/19 18:00 05/23/19 18:00 05/23/19 17:00 Oxygen Flow Rate (L/min) 12 Oxygen Delivery Method Venturi Mask Weight: 183 lb 10.321 oz Body Mass Index (BMI) 30.5 Finger Stick Blood Glucose 99 Intake and Output for Last 24 Hours 05/21/19 05/22/19 05/23/19 23:59 23:59 23:59 Intake Total 500 / 500 Output Total 0 / 0 Balance 500 / 500 General: Awake, Alert, Oriented x 3, Ill Appearing HEENT: PERRL, EOMI, Sclera Non Icteric Neck: Supple, Good ROM, No Lymph Node Enlargement Lungs: Clear to auscultation Cardiovascular: Regular Rhythm, Normal S1, Normal S2, No Murmurs, No Rubs, No Gallops Vascular: No Carotid Bruits, Normal Femoral Pulses, Normal Radial Pulses, Normal Dorsalis Pedal Pulse, Normal Posterior Tibial Pulses Abdomen: Bowel Sounds Present, Soft, Non Tender, No HSM, No Organomegaly Extremities: No Cyanosis, No Clubbing, No edema Musculoskeletal: No Erythema Skin: No Rashes Lymphatic: No Lymph Node Enlargement Neurological: No Focal Motor or Sensory Deficit Psych/Mental Status: Appropriate 05/22/19 23:10: WBC 8.7, RBC 3.74 L, Hgb 11.3 L, Hct 37.1, MCV 99.2 H, MCH 30.2, MCHC 30.5 L, Plt Count 175, MPV 9.3, Immature Gran % (Auto) 0.200, Neut % (Auto) 72.6 H, Lymph % (Auto) 16.7 L, [place] % (Auto) 8.5, Eos % (Auto) 1.2, Baso % (Auto) 0.8, Absolute Neuts (auto) 6.3, Nucleated RBC % 0 05/22/19 23:10: Sodium 130 L, Potassium 4.3, Chloride 93 L, Carbon Dioxide 30.0, Anion Gap 7, BUN 33 H, Creatinine 4.66 H, Est GFR (MDRD) Af Amer 12 L, Est GFR (MDRD) Non-Af 10 L, BUN/Creatinine Ratio 7.1 L, Glucose 164 H, Calcium 8.8, Troponin I 0.024 05/23/19 03:06: Troponin I 0.022 05/23/19 06:10: Troponin I 0.034 Rhythm: EKG: Normal sinus rhythm with nonspecific ST-T wave changes ECHO: Stress Test: Cardiac Cath: PCI: CT Surgery: Holter monitor: EPS: PPM: CXR: Chest CT Scan: Assessment/Plan 1. Chest pain * Patient presents with chest discomfort the etiology of which is unclear. It is unusual for me to think that this is coronary in origin. It has been persistent for hours with minimal troponin elevation. * With her renal dysfunction one would need to exclude pericarditis. * Would like to obtain an echocardiogram to exclude any pericardial fluid. * Would like to try nonsteroidal anti-inflammatory agents * 2. Coronary artery disease * Patient has known coronary artery disease in the past with an occluded circumflex artery and disease noted in the right coronary artery which has not been intervened upon. * She was [facility] to [facility] for further evaluation of the above but I do not have the reports of what was intervened on. * We will attempt to obtain those records * 3. Recurrent hypotension * The etiology of the above is unclear at this particular time. She has been started on her Midodrin to see whether this would help * * Thank you for allowing me to participate in the care of your patient. Please don't hesitate to call if any issues arise
--- NOTE | 2019-05-23 18:24 | DIALYSIS ---
Hemodialysis tx completed x 4.5 hours. Pt tolerated tx fair, fluid removed 3,000ml using crit-line monitor. Pt complained of chest pain throughout tx despite being medicated by Manfred Llanos. Verbal report given to Romi post tx. Next HD scheduled for 05/26/19
[2019-05-23] MEDS: Ketorolac 15 MG/ML Vial IV (18:31)
[2019-05-23 18:41] LABS: Bedside Glucose 105 mg/dL (70-110)
[2019-05-23] MEDS: SEVELAMER CARBONATE 800 MG TABLET 2400 MG PO (18:44)
[2019-05-23] MEDS: Morphine 2 MG/ML Syringe 3 MG IV (20:20)
[2019-05-23] MEDS: Heparin Injection (Vial) 5,000 UNIT/ML VIAL 5000 UNIT SC (22:14)
[2019-05-23] MEDS: Docusate Sodium 100 MG Capsule PO (22:14)
[2019-05-23] MEDS: Pramipexole Di-HCl 0.25 MG Tablet PO (22:16)
[2019-05-23] MEDS: Gabapentin 100 MG Capsule 200 MG PO (22:16)
[2019-05-23] MEDS: MELATONIN 10 MG TABLET 5 MG PO (22:16)
[2019-05-23] MEDS: Atorvastatin Calcium 80 MG Tablet PO (22:16)
[2019-05-23 22:40] LABS: Bedside Glucose 133 mg/dL (70-110)
[2019-05-24] VITALS (76 sets, daily range): BP systolic 49–159; BP diastolic 21–103; PULSE 60–91; RESP 12–23; TEMP 36.4–37.2; O2SAT 92–100
[2019-05-24] MEDS: Morphine 2 MG/ML Syringe 3 MG IV (00:13)
[2019-05-24 03:34] LABS: Absolute Neutrophil Count 7.8 X10^3/uL (2.0-7.7); Basophil# 0.04 X10^3/uL; Basophil% 0.4 % (0-1); Eosinophil# 0.04 X10^3/uL; Eosinophils% 0.4 % (0-5); Hemoglobin 10.1 g/dL (12.0-15.0); Lymphocyte % 11.9 % (19-41); Mean Corp Hgb Conc 30.6 g/dL (32-36); Mean Corpuscular Hgb 30.2 pg (27.0-32.0); Mean Corpuscular Volume 98.8 fL (81-99); Mean Platelet Vol. 9.5 fl (6.2-12.0); Monocyte# 0.97 X10^3/uL; Monocyte% 9.6 % (0-10); NRBC Flagged by Analyzer 0 % (0-5); Neutrophil # 7.84 X10^3/uL (2.7-7.7); Neutrophil % 77.5 % (47-70); Platelet Count 154 K/mm3 (150-450); RBC Distribution Width SD 64.5 fl (35.1-43.9); Red Blood Count 3.34 M/mm3 (4.2-5.4); White Blood Count 10.1 K/mm3 (4.4-11.0)
[2019-05-24 03:46] LABS: Anion Gap 2 (5-15); BUN 21 mg/dL (7-18); BUN/Creat Ratio 6.5 RATIO (10-20); Calcium,Total 7.6 mg/dL (8.5-10.1); Chloride 99 mmol/L (98-107); Creatinine, Serum 3.22 mg/dL (0.55-1.02); EST Glomerular Filtration Rate 15 mL/min (>60); Est Glom Filt Rate - Afr Amer 18 mL/min (>60); Estimated Creatinine Clearance 13.37 ml/min; Glucose 148 mg/dL (74-106); Potassium 3.8 mmol/L (3.5-5.1); Sodium Level 136 mmol/L (136-145)
--- NOTE | 2019-05-24 06:09 | PCM.CON.CC ---
Reason for Consult Date of Consultation: 05/24/19 Reason for Consultation: Respiratory failure and hypotension History of Present Illness: The patient is a 74-year-old female, with a history as outlined below, who presented to the emergency department on May 22 with complaints of chest pain. The patient does have a history of end-stage renal disease due to diabetes mellitus. In addition, the patient does have a known history of coronary artery disease. On May 22, the patient was noted to have undergone an ultrasound-guided paracentesis with 3.3 L of yellow-tinged fluid removed. The patient denies ever having missed any recent dialysis sessions. On presentation to the emergency department, the patient was noted to be afebrile hemodynamically stable. She was initially documented to be saturating 93% on room air. Laboratory evaluation revealed no evidence of a leukocytosis. Chemistry profile was notable for a sodium of 130 and chloride of 93. Troponin was negative. Initial plain film chest x-ray revealed bibasilar airspace disease versus atelectasis. EKG revealed atrial fibrillation with a heart rate of 83. A CTA chest was subsequently obtained which revealed cardiomegaly with pericardial effusion. There was no evidence for pulmonary embolism. Small bilateral pleural effusions with atelectatic change in the bases bilaterally were noted. The patient was initially admitted to the progressive care unit. On the morning of May 23, the patient was transferred to the medical intensive care unit after which she was found to be quite somnolent and lethargic. Due to the patient's complaints of chest pain, cardiology consultation was obtained. The patient did undergo hemodialysis on May 23 with 3 L of fluid removed. Last evening, the patient was given supplemental IV fluid hydration. She was also given melatonin and IV morphine, which led to decompensation in her hemodynamic status. The patient subsequently had to be placed on Levophed to maintain hemodynamic stability. Past Medical History Past Medical History (Chronic Problems): Chronic Problems (Last Reviewed 05/23/19 @ 04:42 by Buddy Olson MD) History of GI bleed (Chronic) History of non-ST elevation myocardial infarction (NSTEMI) (Chronic 07/05/16) Atherosclerotic heart disease of [place] coronary artery without angina pectoris (Chronic) Stented coronary artery (Chronic) Cutting Balloon and TAMI (3.0X18 mm Xience) Proximal LAD 04/18/2012; Rotational atherectomy to proximal, id and distal RCA with two overlapping 4.0 X 38 Synergy TAMI ([facility] main) Ascites (Chronic) Pancytopenia (Chronic) Other specified peripheral vascular diseases (Chronic) Afib (Chronic) Congenital coronary artery anomaly (Chronic) Bradycardia (Chronic) Diabetes mellitus, type II (Chronic) Hyperlipidemia (Chronic) Hypothyroidism (Chronic) Anemia in chronic kidney disease (Chronic) Hypertension (Chronic) End stage renal disease on dialysis (Chronic) Medical History: Medical History (Last Reviewed 05/23/19 @ 04:42 by Buddy Olson MD) History of GI bleed (Chronic) Z87.19 History of non-ST elevation myocardial infarction (NSTEMI) (Chronic) Onset Date: 07/05/16 I25.2 Atherosclerotic heart disease of [place] coronary artery without angina pectoris (Chronic) I25.10 Ascites (Chronic) R18.8 Pancytopenia (Chronic) D61.818 Other specified peripheral vascular diseases (Chronic) I73.89 Afib (Chronic) I48.91 Congenital coronary artery anomaly (Chronic) Q24.5 Bradycardia (Chronic) R00.1 Diabetes mellitus, type II (Chronic) E11.9 Hyperlipidemia (Chronic) E78.5 Hypothyroidism (Chronic) E03.9 Anemia in chronic kidney disease (Chronic) N18.9, D63.1 Hypertension (Chronic) I10 End stage renal disease on dialysis (Chronic) N18.6, 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 History of hysterectomy Z90.710 Skin cancer C44.90 mouth/lip 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, 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 Allergies lisinopril Allergy (Severe, Verified 05/22/19 22:57) Angioedema nebivolol HCl [From Bystolic] Adverse Reaction (Severe, Verified 05/22/19 22:57) bradycardia BRADYCARDIA Home Medications: Ambulatory Orders Medication Instructions Recorded Cholecalciferol (Vitamin D3) 5,000 unit PO MOWEFR 07/27/17 [Vitamin D3] pantoprazole 40 mg tablet,delayed 40 mg PO DAILY 08/21/17 release Atorvastatin Calcium [Lipitor] 80 mg PO QHS 12/26/17 Insulin Glargine [Lantus SoloStar 11 units SUBCUT QHS 05/31/18 Pen] Docusate Sodium [Colace] 100 mg PO BID 02/13/19 Ropinirole HCl [Requip] 0.5 mg PO QHS 02/13/19 Sevelamer Carbonate 2,400 mg PO TIDCM 02/13/19 Losartan Potassium [Cozaar] 50 mg PO BID #0 04/08/19 Acetaminophen [Tylenol Tablet] 650 mg PO Q6H PRN PRN tab 05/15/19 Aspirin E.C. [Ecotrin] 81 mg PO DAILY@0800 #1 tab 05/15/19 Clopidogrel Bisulfate [Plavix] 75 mg PO DAILY #1 tab 05/15/19 Gabapentin [Neurontin] 200 mg PO BID 5 Days #10 cap 05/15/19 Albuterol Sulfate 2.5 mg IH Q4H PRN PRN 05/23/19 B Complex W-C No.20/Folic Acid 1 mg PO MOWEFR 05/23/19 [Virt-Caps Softgel] Bisacodyl [Laxative Suppository] 10 mg TX DAILY PRN PRN 05/23/19 Insulin Lispro [Insulin Lispro 0 unit SQ TID 05/23/19 Kwikpen U-100] Isosorbide Mononitrate [Imdur] 30 mg PO QHS 05/23/19 Lactulose [Chronulac, Cephulac] 40 gm PO Q12H PRN PRN 05/23/19 Melatonin 5 mg PO QHS 05/23/19 Midodrine HCl 5 mg PO MOWEFR 05/23/19 Nitroglycerin 0.4 mg SL Q10M PRN PRN 05/23/19 Ondansetron HCl [Zofran] 4 mg PO Q6H PRN PRN 05/23/19 Oxycodone HCl 5 mg PO Q6H PRN PRN 05/23/19 Surgical History: Surgical History (Last Reviewed 05/23/19 @ 04:41 by Buddy Olson MD) Stented coronary artery (Chronic) Z95.5 Cutting Balloon and TAMI (3.0X18 mm Xience) Proximal LAD 04/18/2012; Rotational atherectomy to proximal, id and distal RCA with two overlapping 4.0 X 38 Synergy TAMI ([facility] main) History of back surgery Z98.890 LATE 70'S History of colectomy Z90.49 History of laparoscopic cholecystectomy Z90.49 History of total right knee replacement Z96.651 Hx of foot surgery Z98.890 S/P left rotator cuff repair Z98.890 history left A-V fistula Surgical History: appendectomy, cholecystectomy, hysterectomy, total knee arthroplasty, - - Left upper extremity fistula, back surgery, colon resection with history of diverticulitis, GI bleed, right knee surgery, right total knee replacement, right foot surgery, left knee surgery, left foot surgery, PCI. Psychiatric History: No pertinent psych hx [employer] History: No pertinent [employer] history Lives: With Family, [facility] Smoking Status: Former smoker Tobacco Use: Cigarettes Alcohol: None Drugs: None - *Family History Maternal Family History: Family History (Last Reviewed 05/23/19 @ 04:42 by Buddy Olson MD) Sister Diabetes Heart disease Hypertension Anemia History Items: Cancer - uterine Paternal Family History: Family History (Last Reviewed 05/23/19 @ 04:42 by Buddy Olson MD) Sister Diabetes Heart disease Hypertension Anemia History Items: Cancer Sibling Family History: Family History (Last Reviewed 05/23/19 @ 04:42 by Buddy Olson MD) Sister Diabetes Heart disease Hypertension Anemia History Items: Diabetes Review of Systems Constitutional: Reports: Malaise, Weakness, Fatigue Eyes: Denies: Blurred vision, Double vision HEENT: Denies: Head Aches, Sinus Congestion, Sinus Drainage Cardiovascular: Reports: Chest Pain Respiratory: Denies: Cough, Shortness of Breath, Sputum production Gastrointestinal: Denies: Abdominal Pain, Nausea, Vomiting Genitourinary: Denies: Dysuria Musculoskeletal: Denies: Joint Pain, Joint Tenderness Skin: Denies: Rash, Wounds Neurological: Denies: Numbness, Tingling, Focal weakness Psychiatric: Denies: Anxiety, Depression, Homicidal Ideations, Suicidal Ideations Hematologic/ Lymphatic: Reports: Anemia Patient Problems: Active and Suspected Problems (Last Reviewed 05/23/19 @ 04:42 by Buddy Olson MD) Chest pain at rest (Acute) Chest pain (Acute) Chest pain (Acute) Objective: The patient's most recent lab work, culture data and imaging studies have all been personally reviewed. - Physical Exam Vitals/I&O's: Vital Signs Temp Pulse Resp BP Pulse Ox 98.2 F 74 21 H 137/49 H 96 05/24/19 00:00 05/24/19 06:00 05/24/19 06:00 05/24/19 06:00 05/24/19 06:00 Oxygen Flow Rate (L/min) 3 Oxygen Delivery Method Nasal Cannula Weight: 186 lb 4.65 oz Body Mass Index (BMI) 30.5 Finger Stick Blood Glucose 99 Intake and Output for Last 24 Hours 05/22/19 05/23/19 05/24/19 23:59 23:59 23:59 Intake Total 750 / 800 627.11 / 627.11 Output Total 3000 / 3000 0 / 0 Balance -2250 / -2200 627.11 / 627.11 General: Alert, Cooperative, No apparent distress HEENT: Atraumatic, Normocephalic Oral: No Gingival or Mucosal Lesions/ Ulcerations Neck: Supple, No Nodes, Trachea Midline Lungs: No rhonchi, No wheeze, No rales, Diminished Cardiovascular: Normal S1, Normal S2, No murmurs, Irregular Rate Abdomen: Bowel Sounds Present, Soft, Non Tender Extremities: No clubbing, No cyanosis, No edema Skin: No breakdown Musculoskeletal: No Tenderness to Palpation of Joints or Extremities Lymphatic: No Cervical, Supraclavicular, or Inguinal Adenopathy Neurological: Cranial nerves II-XII grossly intact, Neuro grossly intact Psych/Mental Status: Normal Affect, Appropriate Labs (Last 48 Hours) 05/22/19 05/22/19 05/23/19 23:10 23:10 03:06 WBC 8.7 RBC 3.74 L Hgb 11.3 L Hct 37.1 MCV 99.2 H MCH 30.2 MCHC 30.5 L RDW Std Deviation 65.5 H RDW Coeff of Susan 17.9 H Plt Count 175 MPV 9.3 Immature Gran % (Auto) 0.200 Neut % (Auto) 72.6 H Lymph % (Auto) 16.7 L [place] % (Auto) 8.5 Eos % (Auto) 1.2 Baso % (Auto) 0.8 Absolute Neuts (auto) 6.3 Absolute Lymphs (auto) 1.45 Nucleated RBC % 0 Differential Comment SCANNED Anisocytosis 1+ Sodium 130 L Potassium 4.3 Chloride 93 L Carbon Dioxide 30.0 Anion Gap 7 BUN 33 H Creatinine 4.66 H Estim Creat Clear Calc 9.24 Est GFR (MDRD) Af Amer 12 L Est GFR (MDRD) Non-Af 10 L BUN/Creatinine Ratio 7.1 L Glucose 164 H Calcium 8.8 Troponin I 0.024 0.022 POC Glucose 05/23/19 05/23/19 05/23/19 06:10 13:54 18:34 WBC RBC Hgb Hct MCV MCH MCHC RDW Std Deviation RDW Coeff of Susan Plt Count MPV Immature Gran % (Auto) Neut % (Auto) Lymph % (Auto) [place] % (Auto) Eos % (Auto) Baso % (Auto) Absolute Neuts (auto) Absolute Lymphs (auto) Nucleated RBC % Differential Comment Anisocytosis Sodium Potassium Chloride Carbon Dioxide Anion Gap BUN Creatinine Estim Creat Clear Calc Est GFR (MDRD) Af Amer Est GFR (MDRD) Non-Af BUN/Creatinine Ratio Glucose Calcium Troponin I 0.034 POC Glucose 74 105 05/23/19 05/24/19 05/24/19 22:04 03:20 03:20 WBC 10.1 RBC 3.34 L Hgb 10.1 L Hct 33.0 L MCV 98.8 MCH 30.2 MCHC 30.6 L RDW Std Deviation 64.5 H RDW Coeff of Susan 18.0 H Plt Count 154 MPV 9.5 Immature Gran % (Auto) 0.200 Neut % (Auto) 77.5 H Lymph % (Auto) 11.9 L [place] % (Auto) 9.6 Eos % (Auto) 0.4 Baso % (Auto) 0.4 Absolute Neuts (auto) 7.8 H Absolute Lymphs (auto) 1.20 Nucleated RBC % 0 Differential Comment Anisocytosis Sodium 136 Potassium 3.8 Chloride 99 Carbon Dioxide 35.0 H Anion Gap 2 L BUN 21 H Creatinine 3.22 H Estim Creat Clear Calc 13.37 Est GFR (MDRD) Af Amer 18 L Est GFR (MDRD) Non-Af 15 L BUN/Creatinine Ratio 6.5 L Glucose 148 H Calcium 7.6 L Troponin I POC Glucose 133 H 05/24/19 03:20 WBC RBC Hgb Hct MCV MCH MCHC RDW Std Deviation RDW Coeff of Susan Plt Count MPV Immature Gran % (Auto) Neut % (Auto) Lymph % (Auto) [place] % (Auto) Eos % (Auto) Baso % (Auto) Absolute Neuts (auto) Absolute Lymphs (auto) Nucleated RBC % Differential Comment Anisocytosis Sodium Potassium Chloride Carbon Dioxide Anion Gap BUN Creatinine Estim Creat Clear Calc Est GFR (MDRD) Af Amer Est GFR (MDRD) Non-Af BUN/Creatinine Ratio Glucose Calcium Troponin I 0.032 POC Glucose Clinical Impression(s) from Imaging Studies Chest X-Ray 05/22/19 23:26 IMPRESSION: 1. Fracture of the left clavicle. 2. Bilateral basilar airspace disease and/or atelectasis. Electronically Signed: Adela Syed MD at 0:13 EST , Service support , Chest X-Ray 05/23/19 04:34 IMPRESSION: 1. Cardiomegaly with pulmonary congestion. 2. Appropriate positioning of right-sided central venous catheter. Electronically Signed: Adela Syed MD at 6:52 EST , Service support , Chest CTA 05/23/19 04:37 IMPRESSION: Extensive anasarca. The aorta shows no focal aneurysms or dissection Ascitic fluid around the liver and spleen and in the upper pelvis. Minimal congestion with hepatomegaly. Atrophic kidneys. No hydronephrosis. No renal calculi. No intestinal obstruction. Degenerative changes of the lumbosacral spine and facet joints Electronically Signed: Jama Anderson MD at 7:59 EST Tel , Service support , Abdomen CTA 05/23/19 04:49 IMPRESSION: Extensive anasarca. The aorta shows no focal aneurysms or dissection Ascitic fluid around the liver and spleen and in the upper pelvis. Minimal congestion with hepatomegaly. Atrophic kidneys. No hydronephrosis. No renal calculi. No intestinal obstruction. Degenerative changes of the lumbosacral spine and facet joints Electronically Signed: Jama Anderson MD at 7:59 EST Tel , Service support , Current Medications Acetaminophen (Tylenol) 650 mg PO Q6H PRN PRN PRN Reason: Pain Score 1-3/Temp > 100.7 F Aspirin (Ecotrin) 81 mg PO DAILY@0800 [facility] Last Admin: 05/23/19 14:02 Dose: 81 mg Documented by: Atorvastatin Calcium (Lipitor) 80 mg PO QHS [facility] Last Admin: 05/23/19 22:16 Dose: 80 mg Documented by: Cholecalciferol (Vitamin D) 5,000 unit PO MoWeFr@1000 [facility] Clopidogrel Bisulfate (Plavix) 75 mg PO DAILY [facility] Last Admin: 05/23/19 14:02 Dose: 75 mg Documented by: Dextrose (D50w Syringe) 0 gm IV X1 PRN; Protocol PRN Reason: Hypoglycemia Docusate Sodium (Colace) 100 mg PO BID [facility] Last Admin: 05/23/19 22:14 Dose: 100 mg Documented by: Gabapentin (Neurontin) 200 mg PO BID [facility] Last Admin: 05/23/19 22:16 Dose: 200 mg Documented by: Glucagon () 1 mg IM .X1 PRN PRN Reason: Hypoglycemia Heparin Sodium (Porcine) (Heparin Na) 5,000 unit SC Q12 [facility] Last Admin: 05/23/19 22:14 Dose: 5,000 unit Documented by: Norepinephrine Bitartrate 8 mg (/ Sodium Chloride) 250 mls @ 9.375 mls/hr CONT INF .[id number] [facility]; Protocol Last Titration: 05/24/19 06:00 Dose: 17 mcg/min, 31.9 mls/hr Documented by: Indomethacin (Indocin) 25 mg PO TIDCM [facility] Insulin Glargine (Lantus (Bkc)) 11 units SC QHS [facility] Last Admin: 05/23/19 22:15 Dose: Not Given Documented by: Insulin Human Lispro (Humalog Kwikpen (Bkc)) 0 unit SC TIDAC [facility]; Protocol Last Admin: 05/23/19 18:35 Dose: Not Given Documented by: Melatonin (Melatonin) 5 mg PO QHS [facility] Last Admin: 05/23/19 22:16 Dose: 5 mg Documented by: Midodrine (Proamatine) 10 mg PO DAILY [facility] Last Admin: 05/23/19 16:59 Dose: 10 mg Documented by: Morphine Sulfate () 2 mg IV Q3H PRN PRN PRN Reason: Pain Score 6-1010 Last Admin: 05/23/19 17:28 Dose: 2 mg Documented by: Morphine Sulfate () 3 mg IV Q3H PRN PRN PRN Reason: chest pain 4-1010 Last Admin: 05/24/19 00:13 Dose: 3 mg Documented by: Pantoprazole Sodium (Protonix) 40 mg PO DAILY [facility] Pramipexole Dihydrochloride (Mirapex) 0.25 mg PO QHS [facility] Last Admin: 05/23/19 22:16 Dose: 0.25 mg Documented by: Sevelamer Carbonate (Renvela) 2,400 mg PO TIDCM [facility] Last Admin: 05/23/19 18:44 Dose: 2,400 mg Documented by: Sodium Chloride () 10 - 40 ml IV UD PRN PRN Reason: SALINE FLUSH Last Admin: 05/23/19 20:20 Dose: 30 ml Documented by: Sodium Chloride () 10 - 40 ml IV UD PRN PRN Reason: Multilumen/[place]cant[place] Flush Sodium Chloride (0.9% Nacl (Sterile) Posiflush) 10 - 40 ml IV UD PRN PRN Reason: Port access or dressing change Assessment/Plan Active and Suspected Problems (Last Reviewed 05/23/19 @ 04:42 by Buddy Olson MD) Chest pain at rest (Acute) Chest pain (Acute) Chest pain (Acute) RECOMMENDATIONS: 1. Discontinue IV morphine and melatonin. 2. Continue Levophed and wean to maintain a mean arterial pressure at or above 65 mmHg. 3. Volume removal expectations with hemodialysis may need to be adjusted, depending on her hemodynamic status. 4. Await echocardiogram. 5. Start Midodrine 10 mg TID. 6. Continue 3 L/min of supplemental oxygen on a nightly basis, per outpatient regimen. IMPRESSIONS: 1. Shock, distributive versus hypovolemic in etiology I do suspect that a component of the patient's hypotension is due to the fact that on May 22 she underwent a paracentesis with 3.3 L of fluid removed, which was then followed by dialysis yesterday with an additional 3 L of fluid removed. In addition, the patient received IV morphine last night which also led to decompensation in her hemodynamic status. She did have to be placed on Levophed to maintain hemodynamic stability. She is currently documented to be overall net -1.6 L for the hospital admission. I would avoid performing procedures back to back in the future, during which time significant amount of volume is removed. I have a low clinical index of suspicion for an underlying infectious etiology, as the patient does not demonstrate any systemic signs of infection. She is afebrile without an elevated white blood cell count. IV morphine has been discontinued completely. 2. Atypical chest pain/known history of coronary artery disease Defer management to cardiology, who is currently following. 3. End-stage renal disease on hemodialysis Continue hemodialysis support per nephrology recommendations. 4. Underlying cirrhosis/diabetes mellitus/restless leg syndrome/GERD/hyperlipidemia Complicates care, management, recovery and prognosis. Continue home medications as indicated. Mobilize patient as tolerated. TIME: 38 minutes of critical care time, independent of procedures, was spent addressing the patient's distributive versus hypovolemic shock, atypical chest pain, end-stage renal disease, underlying cirrhosis, review of all data and collaboration with the care team. ([id number]) Code Visit 9xxxx: [id number] Critical care first hour
--- NOTE | 2019-05-24 06:13 | PN.CARD_ITS ---
Subjectve: Patient seen and evaluated. Events of yesterday noted with hypotension following pain medication administration Objective: Vital Signs Temp Pulse Resp BP Pulse Ox 98.2 F 74 21 H 137/49 H 96 05/24/19 00:00 05/24/19 06:00 05/24/19 06:00 05/24/19 06:00 05/24/19 06:00 Oxygen Flow Rate (L/min) 3 Oxygen Delivery Method Nasal Cannula Weight: 186 lb 4.65 oz Body Mass Index (BMI) 30.5 Finger Stick Blood Glucose 99 Intake and Output for Last 24 Hours 05/22/19 05/23/19 05/24/19 23:59 23:59 23:59 Intake Total 750 / 800 627.11 / 627.11 Output Total 3000 / 3000 0 / 0 Balance -2250 / -2200 627.11 / 627.11 General: Awake, Alert, Oriented x 3 HEENT: PERRL, EOMI, Sclera Non Icteric Neck: Supple, Good ROM, No Lymph Node Enlargement Lungs: Clear to auscultation Cardiovascular: Regular Rhythm, Normal S1, Normal S2, No Murmurs, No Rubs, No Gallops Vascular: No Carotid Bruits, Normal Femoral Pulses, Normal Radial Pulses, Normal Dorsalis Pedal Pulse, Normal Posterior Tibial Pulses Abdomen: Bowel Sounds Present, Soft, Non Tender, No HSM, No Organomegaly Extremities: No Cyanosis, No Clubbing, No edema Musculoskeletal: No Erythema Skin: No Rashes Lymphatic: No Lymph Node Enlargement Neurological: No Focal Motor or Sensory Deficit 05/23/19 06:10: Troponin I 0.034 05/24/19 03:20: WBC 10.1, RBC 3.34 L, Hgb 10.1 L, Hct 33.0 L, MCV 98.8, MCH 30.2, MCHC 30.6 L, Plt Count 154, MPV 9.5, Immature Gran % (Auto) 0.200, Neut % (Auto) 77.5 H, Lymph % (Auto) 11.9 L, [place] % (Auto) 9.6, Eos % (Auto) 0.4, Baso % (Auto) 0.4, Absolute Neuts (auto) 7.8 H, Nucleated RBC % 0 05/24/19 03:20: Sodium 136, Potassium 3.8, Chloride 99, Carbon Dioxide 35.0 H, Anion Gap 2 L, BUN 21 H, Creatinine 3.22 H, Est GFR (MDRD) Af Amer 18 L, Est GFR (MDRD) Non-Af 15 L, BUN/Creatinine Ratio 6.5 L, Glucose 148 H, Calcium 7.6 L 05/24/19 03:20: Troponin I 0.032 Rhythm: EKG: ECHO: Stress Test: Cardiac Cath: PCI: CT Surgery: Holter monitor: EPS: PPM: CXR: Chest CT Scan: Medical Necessity - Tobacco Use Smoking Status: Former smoker Tobacco Use: Cigarettes Assessment/Plan 1. Chest pain * Patient presents with chest discomfort the etiology of which is unclear. It is unusual for me to think that this is coronary in origin. It has been persistent for hours with minimal troponin elevation. * With her renal dysfunction one would need to exclude pericarditis. * Would like to obtain an echocardiogram to exclude any pericardial fluid. * Would like to try nonsteroidal anti-inflammatory agents * 2. Coronary artery disease * Patient has known coronary artery disease in the past with an occluded circumflex artery and disease noted in the right coronary artery which has not been intervened upon. * She was sent to [facility] for further evaluation of the above but I do not have the reports of what was intervened on. * We will attempt to obtain those records * 3. Recurrent hypotension * The etiology of the above is unclear at this particular time. She has been started on her Midodrin to see whether this would help * * Thank you for allowing me to participate in the care of your patient. Please don't hesitate to call if any issues arise
--- NOTE | 2019-05-24 07:57 | PN_ITS ---
Patient Problems: Active and Suspected Problems (Last Reviewed 05/23/19 @ 04:42 by Buddy Olson MD) Chest pain at rest (Acute) Chest pain (Acute) Chest pain (Acute) Reason for Visit: Chest pain and shortness of breath. Hypotension. On Levophed drip. Objective: Patient is more awake and alert. She understands. Still blood pressure is low on Levophed drip. Pulse ox 96% on 3 L of oxygen. Vitals/I&O's: Vital Signs Temp Pulse Resp BP Pulse Ox 98.2 F 74 21 H 137/49 H 96 05/24/19 00:00 05/24/19 06:00 05/24/19 06:00 05/24/19 06:00 05/24/19 06:00 Oxygen Flow Rate (L/min) 3 Oxygen Delivery Method Nasal Cannula Weight: 186 lb 4.65 oz Body Mass Index (BMI) 30.5 Finger Stick Blood Glucose 99 Intake and Output for Last 24 Hours 05/22/19 05/23/19 05/24/19 23:59 23:59 23:59 Intake Total 750 / 800 627.11 / 627.11 Output Total 3000 / 3000 0 / 0 Balance -2250 / -2200 627.11 / 627.11 General: Alert, Cooperative, Disoriented HEENT: Atraumatic, PERRLA, EOMI, Normocephalic Neck: Supple, No JVD, Negative Carotid Bruits Lungs: No rhonchi, No wheeze, No rales, Diminished - Air entry is diminished in bilateral lung bases. Cardiovascular: Regular rate, Regular Rhythm, Normal S1, Normal S2, No murmurs Abdomen: Bowel Sounds Present, Soft, Non Tender, Non-Distended Extremities: Edema Skin: No rashes, No breakdown Musculoskeletal: No Tenderness to Palpation of Joints or Extremities, Arthritic Changes Neurological: Cranial nerves II-XII grossly intact, Neuro grossly intact Laboratory Results 05/23/19 13:54: POC Glucose 74 05/23/19 18:34: POC Glucose 105 05/23/19 22:04: POC Glucose 133 H 05/24/19 03:20: WBC 10.1, RBC 3.34 L, Hgb 10.1 L, Hct 33.0 L, MCV 98.8, MCH 30.2, MCHC 30.6 L, RDW Std Deviation 64.5 H, RDW Coeff of Susan 18.0 H, Plt Count 154, MPV 9.5, Immature Gran % (Auto) 0.200, Neut % (Auto) 77.5 H, Lymph % (Auto) 11.9 L, [place] % (Auto) 9.6, Eos % (Auto) 0.4, Baso % (Auto) 0.4, Absolute Neuts (auto) 7.8 H, Absolute Lymphs (auto) 1.20, Nucleated RBC % 0 05/24/19 03:20: Sodium 136, Potassium 3.8, Chloride 99, Carbon Dioxide 35.0 H, Anion Gap 2 L, BUN 21 H, Creatinine 3.22 H, Estim Creat Clear Calc 13.37, Est GFR (MDRD) Af Amer 18 L, Est GFR (MDRD) Non-Af 15 L, BUN/Creatinine Ratio 6.5 L, Glucose 148 H, Calcium 7.6 L 05/24/19 03:20: Troponin I 0.032 05/24/19 03:20: Total Bilirubin Pending, Direct Bilirubin Pending, AST Pending, ALT Pending, Alkaline Phosphatase Pending, Total Protein Pending, Albumin Pending Current Medications Acetaminophen (Tylenol) 650 mg PO Q6H PRN PRN PRN Reason: Pain Score 1-3/Temp > 100.7 F Aspirin (Ecotrin) 81 mg PO DAILY@0800 [facility] Last Admin: 05/23/19 14:02 Dose: 81 mg Documented by: Atorvastatin Calcium (Lipitor) 80 mg PO QHS [facility] Last Admin: 05/23/19 22:16 Dose: 80 mg Documented by: Cholecalciferol (Vitamin D) 5,000 unit PO MoWeFr@1000 [facility] Clopidogrel Bisulfate (Plavix) 75 mg PO DAILY [facility] Last Admin: 05/23/19 14:02 Dose: 75 mg Documented by: Dextrose (D50w Syringe) 0 gm IV X1 PRN; Protocol PRN Reason: Hypoglycemia Docusate Sodium (Colace) 100 mg PO BID [facility] Last Admin: 05/23/19 22:14 Dose: 100 mg Documented by: Gabapentin (Neurontin) 200 mg PO BID [facility] Last Admin: 05/23/19 22:16 Dose: 200 mg Documented by: Glucagon () 1 mg IM .X1 PRN PRN Reason: Hypoglycemia Heparin Sodium (Porcine) (Heparin Na) 5,000 unit SC Q12 [facility] Last Admin: 05/23/19 22:14 Dose: 5,000 unit Documented by: Norepinephrine Bitartrate 8 mg (/ Sodium Chloride) 250 mls @ 9.375 mls/hr CONT INF .[id number] [facility]; Protocol Last Titration: 05/24/19 06:00 Dose: 17 mcg/min, 31.9 mls/hr Documented by: Indomethacin (Indocin) 25 mg PO TIDCM [facility] Insulin Glargine (Lantus (Bkc)) 11 units SC QHS [facility] Last Admin: 05/23/19 22:15 Dose: Not Given Documented by: Insulin Human Lispro (Humalog Kwikpen ([facility])) 0 unit SC TIDAC [facility]; Protocol Last Admin: 05/23/19 18:35 Dose: Not Given Documented by: Midodrine (Proamatine) 10 mg PO TID [facility] Pantoprazole Sodium (Protonix) 40 mg PO DAILY [facility] Pramipexole Dihydrochloride (Mirapex) 0.25 mg PO QHS [facility] Last Admin: 05/23/19 22:16 Dose: 0.25 mg Documented by: Sevelamer Carbonate (Renvela) 2,400 mg PO TIDCM [facility] Last Admin: 05/23/19 18:44 Dose: 2,400 mg Documented by: Sodium Chloride () 10 - 40 ml IV UD PRN PRN Reason: SALINE FLUSH Last Admin: 05/23/19 20:20 Dose: 30 ml Documented by: Sodium Chloride () 10 - 40 ml IV UD PRN PRN Reason: Multilumen/[place]ara Flush Sodium Chloride (0.9% Nacl (Sterile) Posiflush) 10 - 40 ml IV UD PRN PRN Reason: Port access or dressing change STROKE Vital Signs/Narrative: Vital Signs Pulse Resp BP Pulse Ox 05/24/19 06:00 74 21 H 137/49 H 96 05/24/19 05:45 142/52 H 05/24/19 05:30 142/52 H 05/24/19 05:15 143/55 H 05/24/19 05:00 71 18 139/47 H 97 05/24/19 04:45 142/53 H 05/24/19 04:40 152/59 H 05/24/19 04:35 159/58 H 05/24/19 04:30 113/42 L 05/24/19 04:25 101/30 L 05/24/19 04:20 104/26 L 05/24/19 04:15 104/36 L 05/24/19 04:10 117/36 L 05/24/19 04:05 106/40 L 05/24/19 04:00 73 17 98/49 L 96 Medical Necessity - Tobacco Use Smoking Status: Former smoker Tobacco Use: Cigarettes Assessment/Plan All Active Problems (Last Reviewed 05/23/19 @ 04:42 by Buddy Olson MD) Chest pain at rest (Acute) Chest pain (Acute) Chest pain (Acute) Closed left scapular fracture (Acute) GI bleed (Resolved) This is a 74 y.o female with multiple comorbidities admitted with chest pain. He describes chest pain lower chest and epigastrium. The patient blood pressure is steadily dropped from 153/57 207/49 in ER. Patient is very somnolent and delayed response to simple questions along with confusion disorientation. Patient had 3.2 L paracentesis on May 22, 2019. Started on Ringer lactate 1 L bolus and then reevaluate. Patient has multiple comorbidities including decompensated [place] related cirrhosis decompensated with ascites, thrombocytopenia, ESRD on hemodialysis Sunday, Sunday and Sunday, coronary artery disease and severe pulmonary hypertension. 1. Acute hypoxic respiratory failure mostly secondary to acute on chronic heart failure with preserved EF and right ventricular failure, pulmonary hypertension small bilateral pleural effusion, atelectasis: The patient is being admitted in ICU. Echo done in February 2018 reported as The estimated ejection fraction is 65 %. Severely dilated right ventricle. The left atrium is severely enlarged. The right atrium is moderately enlarged. Trivial mitral valve insufficiency. Moderately severe (3+) tricuspid valve insufficiency. Right ventricular systolic pressure estimated to be 35 mmHg, but may be underestimated. Mild aortic stenosis. Compared to echo report dated 11/19/2017, no appreciable changes noted. The patient blood pressure was borderline cyst; systolic in low 100s in ER. IV fluid was discontinued. Discussed with senior support engineer and help desk analyst. Patient was on nonrebreather in ICU and was changed to 50% Ventimask in ICU. Started on midodrine 10 mg daily by help desk analyst. [facility] [employer] was also consulted. 2. Hypovolemic/distributive shock probably secondary to paracentesis and hemodialysis: Patient is on Levophed drip. Wean off as per tolerated. She is on midodrine 10 mg p.o. 3 times daily. 3. Atypical chest pain with history of coronary artery disease status post stents: Patient being admitted in PCU. EKG reviewed. Shows A. fib at 84 bpm. Patient has difficulty in getting line therefore right subclavian line inserted by ER physician. CTA chest and abdomen was done in ER and does not show acute aortic dissection or aneurysm or PE. Patient continues to have persistent chest pain in ICU also. 05/24: Patient chest pain is much improved. Seen by senior support engineer. 2D echo is ordered. Started on indomethacin 25 mg 3 times daily. Watch out for any bleeding. 1. Recent lower GI bleed possibly due to diverticular bleed in February 2018. Is been admitted 3 times for GI bleed since February 2019.previous colonoscopy showed (05/12/18): Diverticulosis in the entire examined colon Patient carries a very high risk for colonoscopy in view of multiple comorbidities including 3 organ failure including ESRD on hemodialysis,'s decompensated cirrhosis and coronary artery disease. EGD 03/2019 reported as gastritis but otherwise normal. 3. ESRD on hemodialysis: * Supervisor Irrigation consulted 4. Decompensated cirrhosis with ascites, thrombocytopenia with monthly paracentesis; had recent paracentesis 4. Chronic hyponatremia: Hyponatremia in decompensated cirrhosis portends to bad prognosis. 5. CAD status post stent with right-sided ventricular systolic failure chronic A. fib: Aspirin, carvedilol statin and Imdur. Echo done in February 2018 reported as EF 65% with normal LV size but severely dilated RV with moderate global right ventricular systolic dysfunction suggestive of right-sided heart failure. LA severely enlarged. Right atrium moderately enlarged. 3+ TR, RVSP 35 mmHg. As per the senior support engineer note, patient has an occluded circumflex artery and diseased RCA. Try to get medical record from [facility] of any further intervention/PCI. 6. Diabetes mellitus type II with polyneuropathy and end-stage renal disease, diabetic nephropathy: Accu-Chek SHS and cover with Humalog sliding scale 7. Other comorbidities include restless leg syndrome, insomnia, GERD Restless leg syndrome Requip continued 9. DVT prophylaxis: Heparin 5000 units cutaneous every 12 hourly. Discontinue if platelet count drops less than 50,000 or hemoglobin less than 8 g% Advanced directive/CODE STATUS: Patient has 3-4 major organ failures including cardiovascular, pulmonary hypertension and ventricular failure, ESRD on hemodialysis, decompensated cirrhosis ascites but wants full code to care for her who is in [facility]. Out of all options given, she wants to be full code. Total time spent in [id number] encounter in discussion of advanced directive 18 minutes. clinical Impression(s) from Imaging Studies Chest X-Ray 05/22/19 23:26 IMPRESSION: 1. Fracture of the left clavicle. 2. Bilateral basilar airspace disease and/or atelectasis. Chest X-Ray 05/23/19 04:34 IMPRESSION: 1. Cardiomegaly with pulmonary congestion. 2. Appropriate positioning of right-sided central venous catheter. Chest CTA 05/23/19 04:37 IMPRESSION: Extensive anasarca. The aorta shows no focal aneurysms or dissection Ascitic fluid around the liver and spleen and in the upper pelvis. Minimal congestion with hepatomegaly. Atrophic kidneys. No hydronephrosis. No renal calculi. No intestinal obstruction. Degenerative changes of the lumbosacral spine and facet joints Code Visit Inpatient E&M: 41911 [facility] Hosp L3
[2019-05-24 09:17] LABS: AST(SGOT) 20 U/L (15-37); Alanine Aminotransfer ALT/SGPT 11 U/L (13-56); Albumin, Serum 1.5 g/dL (3.2-5.0); Alkaline Phosphatase 134 U/L (45-117); Bilirubin, Direct 0.16 mg/dL (0.00-0.30); Globulin 4.5 g/dL (2.2-4.2)
--- NOTE | 2019-05-24 09:33 | CM.UR ---
Interdisciplinary rounds on patient. Patient remains on levophed, continuing to wean. [facility] and plans to return there upon discharge. Mindi Song RN, CCM.
[2019-05-24] MEDS: Aspirin E.C. 81 MG Tablet PO (10:47)
[2019-05-24] MEDS: Heparin Injection (Vial) 5,000 UNIT/ML VIAL 5000 UNIT SC ×2 (10:49→21:01)
[2019-05-24] MEDS: Docusate Sodium 100 MG Capsule PO ×2 (10:49→21:00)
[2019-05-24] MEDS: Pantoprazole Sodium 40 MG Tablet PO (10:50)
[2019-05-24] MEDS: Gabapentin 100 MG Capsule 200 MG PO ×2 (10:50→21:00)
[2019-05-24] MEDS: Clopidogrel Bisulfate 75 MG Tablet PO (10:50)
[2019-05-24 12:16] LABS: Bedside Glucose 129 mg/dL (70-110)
--- NOTE | 2019-05-24 13:13 | PN.RENAL_ITS ---
Patient Problems: Active and Suspected Problems (Last Reviewed 05/23/19 @ 04:42 by Buddy Olson MD) Chest pain at rest (Acute) Chest pain (Acute) Chest pain (Acute) Subjective: Chest pain improved today however had hypotensive episode with morphine overnight requiring pressors. Currently off pressors with stable blood pressur e. Hemodialysis last night with 3 L of fluid removal. Denies shortness of breath. - Physical Exam Vitals/I&O's: Vital Signs Temp Pulse Resp BP Pulse Ox 98.2 F 74 21 H 137/49 H 98 05/24/19 00:00 05/24/19 06:00 05/24/19 06:00 05/24/19 06:00 05/24/19 10:50 Oxygen Flow Rate (L/min) 4 Oxygen Delivery Method Nasal Cannula Weight: 84.5 kg Body Mass Index (BMI) 30.5 Finger Stick Blood Glucose 99 Intake and Output for Last 24 Hours 05/22/19 05/23/19 05/24/19 23:59 23:59 23:59 Intake Total 750 / 800 627.11 / 627.11 Output Total 3000 / 3000 0 / 0 Balance -2250 / -2200 627.11 / 627.11 General: Alert, Oriented x3, Cooperative Neck: Supple Lungs: Clear to auscultation Cardiovascular: Regular rate Abdomen: Bowel Sounds Present, Soft, Non Tender, Distended Extremities: No edema Psych/Mental Status: Alert and oriented to time, place, person, mood and affect Laboratory Results 05/23/19 13:54: POC Glucose 74 05/23/19 18:34: POC Glucose 105 05/23/19 22:04: POC Glucose 133 H 05/24/19 03:20: WBC 10.1, RBC 3.34 L, Hgb 10.1 L, Hct 33.0 L, MCV 98.8, MCH 30.2, MCHC 30.6 L, RDW Std Deviation 64.5 H, RDW Coeff of Susan 18.0 H, Plt Count 154, MPV 9.5, Immature Gran % (Auto) 0.200, Neut % (Auto) 77.5 H, Lymph % (Auto) 11.9 L, [place] % (Auto) 9.6, Eos % (Auto) 0.4, Baso % (Auto) 0.4, Absolute Neuts (auto) 7.8 H, Absolute Lymphs (auto) 1.20, Nucleated RBC % 0 05/24/19 03:20: Sodium 136, Potassium 3.8, Chloride 99, Carbon Dioxide 35.0 H, Anion Gap 2 L, BUN 21 H, Creatinine 3.22 H, Estim Creat Clear Calc 13.37, Est GFR (MDRD) Af Amer 18 L, Est GFR (MDRD) Non-Af 15 L, BUN/Creatinine Ratio 6.5 L, Glucose 148 H, Calcium 7.6 L 05/24/19 03:20: Troponin I 0.032 05/24/19 03:20: Total Bilirubin 0.40, Direct Bilirubin 0.16, AST 20, ALT 11 L, Alkaline Phosphatase 134 H, Total Protein 6.0 L, Albumin 1.5 L, Globulin 4.5 H 05/24/19 12:09: POC Glucose 129 H Current Medications Acetaminophen (Tylenol) 650 mg PO Q6H PRN PRN PRN Reason: Pain Score 1-3/Temp > 100.7 F Aspirin (Ecotrin) 81 mg PO DAILY@0800 [facility] Last Admin: 05/24/19 10:47 Dose: 81 mg Documented by: Atorvastatin Calcium (Lipitor) 80 mg PO QHS [facility] Last Admin: 05/23/19 22:16 Dose: 80 mg Documented by: Cholecalciferol (Vitamin D) 5,000 unit PO MoWeFr@1000 [facility] Clopidogrel Bisulfate (Plavix) 75 mg PO DAILY [facility] Last Admin: 05/24/19 10:50 Dose: 75 mg Documented by: Dextrose (D50w Syringe) 0 gm IV X1 PRN; Protocol PRN Reason: Hypoglycemia Docusate Sodium (Colace) 100 mg PO BID [facility] Last Admin: 05/24/19 10:49 Dose: 100 mg Documented by: Gabapentin (Neurontin) 200 mg PO BID [facility] Last Admin: 05/24/19 10:50 Dose: 200 mg Documented by: Glucagon () 1 mg IM .X1 PRN PRN Reason: Hypoglycemia Heparin Sodium (Porcine) (Heparin Na) 5,000 unit SC Q12 [facility] Last Admin: 05/24/19 10:49 Dose: 5,000 unit Documented by: Norepinephrine Bitartrate 8 mg (/ Sodium Chloride) 250 mls @ 9.375 mls/hr CONT INF .[id number] [facility]; Protocol Last Titration: 05/24/19 06:00 Dose: 17 mcg/min, 31.9 mls/hr Documented by: Indomethacin (Indocin) 25 mg PO TIDCM [facility] Insulin Glargine (Lantus (Bk)) 11 units SC QHS [facility] Last Admin: 05/23/19 22:15 Dose: Not Given Documented by: Insulin Human Lispro (Humalog Kwikpen ([facility])) 0 unit SC TIDAC [facility]; Protocol Last Admin: 05/24/19 12:11 Dose: Not Given Documented by: Midodrine (Proamatine) 10 mg PO TID [facility] Pantoprazole Sodium (Protonix) 40 mg PO DAILY [facility] Last Admin: 05/24/19 10:50 Dose: 40 mg Documented by: Pramipexole Dihydrochloride (Mirapex) 0.25 mg PO QHS [facility] Last Admin: 05/23/19 22:16 Dose: 0.25 mg Documented by: Sevelamer Carbonate (Renvela) 2,400 mg PO TIDCM [facility] Last Admin: 05/24/19 10:51 Dose: Not Given Documented by: Sodium Chloride () 10 - 40 ml IV UD PRN PRN Reason: SALINE FLUSH Last Admin: 05/23/19 20:20 Dose: 30 ml Documented by: Sodium Chloride () 10 - 40 ml IV UD PRN PRN Reason: Multilumen/[place] Flush Sodium Chloride (0.9% Nacl (Sterile) Posiflush) 10 - 40 ml IV UD PRN PRN Reason: Port access or dressing change Medical Necessity - Tobacco Use Smoking Status: Former smoker Tobacco Use: Cigarettes Assessment/Plan All Active Problems (Last Reviewed 05/23/19 @ 04:42 by Buddy Olson MD) Chest pain at rest (Acute) Chest pain (Acute) Chest pain (Acute) Closed left scapular fracture (Acute) GI bleed (Resolved) 1. ESRD hemodialysis Sunday, Sunday, Sunday. Hemodialysis last night with 3 L fluid removal. Next dialysis on Sunday. 2. Acute chest pain history of left scapular fracture from fall 2 weeks ago. Cardiology consulted. Troponin negative x2. Chest pain improved with morphine. 3. DM type II primary service management 4. Hypotension likely due to liver cirrhosis. Hypotensive episode from pain medication. Pressors discontinued with stable blood pressures. Continue midodrine. 5. History of GI bleed with anemia hemoglobin stable. 6. Liver cirrhosis with ascites requiring frequent paracentesis. Last paracentesis May 22.
[2019-05-24] MEDS: SEVELAMER CARBONATE 800 MG TABLET 2400 MG PO ×2 (13:44→16:24)
[2019-05-24] MEDS: Indomethacin 25 MG Capsule PO ×2 (15:58→21:00)
[2019-05-24] MEDS: Acetaminophen 325 MG Tablet 650 MG PO (15:58)
[2019-05-24] MEDS: Midodrine HCl 5 MG Tablet 10 MG PO ×2 (15:59→21:00)
[2019-05-24] MEDS: Insulin Lispro 100 UNIT/ML INSULN.PEN SC (16:27)
[2019-05-24 16:31] LABS: Bedside Glucose 183 mg/dL (70-110)
[2019-05-24] MEDS: Pramipexole Di-HCl 0.25 MG Tablet PO (21:00)
[2019-05-24] MEDS: Atorvastatin Calcium 80 MG Tablet PO (21:01)
[2019-05-24 21:10] LABS: Bedside Glucose 167 mg/dL (70-110)
[2019-05-25] VITALS (53 sets, daily range): BP systolic 85–140; BP diastolic 36–83; PULSE 47–66; RESP 12–20; TEMP 36.4–37.2; O2SAT 93–100
[2019-05-25] MEDS: Midodrine HCl 5 MG Tablet 10 MG PO ×3 (04:51→21:28)
--- NOTE | 2019-05-25 06:37 | PCM.PN.INT ---
Subjective: The patient was seen and examined at the bedside this morning. Events from the last 24 hours have been reviewed. The patient is currently afebrile and maintaining appropriate oxygen saturations on 3 L/min via nasal cannula. The patient was able to be successfully weaned from vasopressor support yesterday. However, overnight, she did have to be restarted on low-dose Levophed to maintain hemodynamic stability. Levophed is currently infusing at 3 mcg/min. She will be due for routine dialysis tomorrow. The patient is currently without complaints of chest pain. Objective: The patient's most recent lab work, culture data and imaging studies have all been personally reviewed. Surface echocardiogram revealed normal LV size and function with an ejection fraction of 55%. Pulmonary artery systolic pressure was estimated to be 50 mmHg. There was mild to moderate aortic stenosis along with a small pericardial effusion. General: Alert, Cooperative, No apparent distress HEENT: Atraumatic, PERRLA, Normocephalic Oral: No Gingival or Mucosal Lesions/ Ulcerations Neck: Supple, No Nodes, Trachea Midline Lungs: No rhonchi, No wheeze, No rales, Diminished Cardiovascular: Normal S1, Normal S2, No murmurs, Irregular Rate Abdomen: Bowel Sounds Present, Soft, Non Tender Extremities: No clubbing, No cyanosis, No edema Skin: No breakdown Musculoskeletal: No Tenderness to Palpation of Joints or Extremities Lymphatic: No Cervical, Supraclavicular, or Inguinal Adenopathy Neurological: Neuro grossly intact Psych/Mental Status: Flat Affect Vital Signs Temp Pulse Resp BP Pulse Ox 97.7 F L 51 L 12 137/57 H 98 05/25/19 04:00 05/25/19 06:00 05/25/19 06:00 05/25/19 06:30 05/25/19 06:00 Oxygen Flow Rate (L/min) 3 Oxygen Delivery Method Nasal Cannula Weight: 185 lb 3.013 oz Body Mass Index (BMI) 30.5 Finger Stick Blood Glucose 99 Intake and Output for Last 24 Hours 05/23/19 05/24/19 05/25/19 23:59 23:59 23:59 Intake Total 750 / 800 1583.20 / 1583.20 108.81 / 108.81 Output Total 3000 / 3000 0 / 0 0 / 0 Balance -2250 / -2200 1583.20 / 1583.20 108.81 / 108.81 Labs (Last 48 Hours) 05/23/19 05/23/19 05/23/19 13:54 18:34 22:04 WBC RBC Hgb Hct MCV MCH MCHC RDW Std Deviation RDW Coeff of Susan Plt Count MPV Immature Gran % (Auto) Neut % (Auto) Lymph % (Auto) [place] % (Auto) Eos % (Auto) Baso % (Auto) Absolute Neuts (auto) Absolute Lymphs (auto) Nucleated RBC % Sodium Potassium Chloride Carbon Dioxide Anion Gap BUN Creatinine Estim Creat Clear Calc Est GFR (MDRD) Af Amer Est GFR (MDRD) Non-Af BUN/Creatinine Ratio Glucose Calcium Total Bilirubin Direct Bilirubin AST ALT Alkaline Phosphatase Troponin I Total Protein Albumin Globulin POC Glucose 74 105 133 H 05/24/19 05/24/19 05/24/19 03:20 03:20 03:20 WBC 10.1 RBC 3.34 L Hgb 10.1 L Hct 33.0 L MCV 98.8 MCH 30.2 MCHC 30.6 L RDW Std Deviation 64.5 H RDW Coeff of Susan 18.0 H Plt Count 154 MPV 9.5 Immature Gran % (Auto) 0.200 Neut % (Auto) 77.5 H Lymph % (Auto) 11.9 L [place] % (Auto) 9.6 Eos % (Auto) 0.4 Baso % (Auto) 0.4 Absolute Neuts (auto) 7.8 H Absolute Lymphs (auto) 1.20 Nucleated RBC % 0 Sodium 136 Potassium 3.8 Chloride 99 Carbon Dioxide 35.0 H Anion Gap 2 L BUN 21 H Creatinine 3.22 H Estim Creat Clear Calc 13.37 Est GFR (MDRD) Af Amer 18 L Est GFR (MDRD) Non-Af 15 L BUN/Creatinine Ratio 6.5 L Glucose 148 H Calcium 7.6 L Total Bilirubin Direct Bilirubin AST ALT Alkaline Phosphatase Troponin I 0.032 Total Protein Albumin Globulin POC Glucose 05/24/19 05/24/19 05/24/19 03:20 12:09 16:22 WBC RBC Hgb Hct MCV MCH MCHC RDW Std Deviation RDW Coeff of Susan Plt Count MPV Immature Gran % (Auto) Neut % (Auto) Lymph % (Auto) [place] % (Auto) Eos % (Auto) Baso % (Auto) Absolute Neuts (auto) Absolute Lymphs (auto) Nucleated RBC % Sodium Potassium Chloride Carbon Dioxide Anion Gap BUN Creatinine Estim Creat Clear Calc Est GFR (MDRD) Af Amer Est GFR (MDRD) Non-Af BUN/Creatinine Ratio Glucose Calcium Total Bilirubin 0.40 Direct Bilirubin 0.16 AST 20 ALT 11 L Alkaline Phosphatase 134 H Troponin I Total Protein 6.0 L Albumin 1.5 L Globulin 4.5 H POC Glucose 129 H 183 H 05/24/19 20:57 WBC RBC Hgb Hct MCV MCH MCHC RDW Std Deviation RDW Coeff of Susan Plt Count MPV Immature Gran % (Auto) Neut % (Auto) Lymph % (Auto) [place] % (Auto) Eos % (Auto) Baso % (Auto) Absolute Neuts (auto) Absolute Lymphs (auto) Nucleated RBC % Sodium Potassium Chloride Carbon Dioxide Anion Gap BUN Creatinine Estim Creat Clear Calc Est GFR (MDRD) Af Amer Est GFR (MDRD) Non-Af BUN/Creatinine Ratio Glucose Calcium Total Bilirubin Direct Bilirubin AST ALT Alkaline Phosphatase Troponin I Total Protein Albumin Globulin POC Glucose 167 H Clinical Impression(s) from Imaging Studies Chest X-Ray 05/22/19 23:26 IMPRESSION: 1. Fracture of the left clavicle. 2. Bilateral basilar airspace disease and/or atelectasis. Electronically Signed: Adela Syed MD at 0:13 EST , Service support , Chest X-Ray 05/23/19 04:34 IMPRESSION: 1. Cardiomegaly with pulmonary congestion. 2. Appropriate positioning of right-sided central venous catheter. Electronically Signed: Adela Syed MD at 6:52 EST , Service support , Chest CTA 05/23/19 04:37 IMPRESSION: Extensive anasarca. The aorta shows no focal aneurysms or dissection Ascitic fluid around the liver and spleen and in the upper pelvis. Minimal congestion with hepatomegaly. Atrophic kidneys. No hydronephrosis. No renal calculi. No intestinal obstruction. Degenerative changes of the lumbosacral spine and facet joints Electronically Signed: Jama Anderson MD at 7:59 EST Tel , Service support , Abdomen CTA 05/23/19 04:49 IMPRESSION: Extensive anasarca. The aorta shows no focal aneurysms or dissection Ascitic fluid around the liver and spleen and in the upper pelvis. Minimal congestion with hepatomegaly. Atrophic kidneys. No hydronephrosis. No renal calculi. No intestinal obstruction. Degenerative changes of the lumbosacral spine and facet joints Electronically Signed: Jama Anderson MD at 7:59 EST Tel , Service support , Medical Necessity - Tobacco Use Smoking Status: Former smoker Tobacco Use: Cigarettes Assessment/Plan All Active Problems (Last Reviewed 05/23/19 @ 04:42 by Buddy Olson MD) Chest pain at rest (Acute) Chest pain (Acute) Chest pain (Acute) Closed left scapular fracture (Acute) GI bleed (Resolved) RECOMMENDATIONS: 1. Continue low-dose Levophed and wean to maintain a mean arterial pressure at or above 65 mmHg. 2. Volume removal expectations with hemodialysis may need to be adjusted, depending on her hemodynamic status. 3. Continue midodrine 10 mg TID. 4. Continue 3 L/min of supplemental oxygen on a nightly basis, per outpatient regimen. IMPRESSIONS: 1. Shock, distributive versus hypovolemic in etiology I do suspect that a component of the patient's hypotension is due to the fact that on May 22 she underwent a paracentesis with 3.3 L of fluid removed, which was then followed by dialysis on May 23 with an additional 3 L of fluid removed. In addition, the patient received IV morphine which also led to decompensation in her hemodynamic status. She did have to be placed on Levophed to maintain hemodynamic stability. I would avoid performing procedures back to back in the future, which require volume removal. I have a low clinical index of suspicion for an underlying infectious etiology, as the patient does not demonstrate any systemic signs of infection. She is afebrile without an elevated white blood cell count. IV morphine has been discontinued completely. 2. Atypical chest pain/known history of coronary artery disease Defer management to cardiology, who is currently following. 3. End-stage renal disease on hemodialysis Continue hemodialysis support per nephrology recommendations. 4. Underlying cirrhosis/diabetes mellitus/restless leg syndrome/GERD/hyperlipidemia Complicates care, management, recovery and prognosis. Continue home medications as indicated. Mobilize patient as tolerated. This note was generated with [employer] dictation software. It may contain incorrect words, spelling, and punctuation that were not noted in checking the note before signing. Code Visit Inpatient E&M: 81104 Subs Hosp L3
--- NOTE | 2019-05-25 08:26 | PN.CARD_ITS ---
Subjectve: Patient seen and evaluated. Appears to be doing better. Not requiring as much pain medication. On little pressor agents. Objective: Vital Signs Temp Pulse Resp BP Pulse Ox 97.7 F L 54 L 15 111/42 L 96 05/25/19 04:00 05/25/19 07:00 05/25/19 07:00 05/25/19 07:00 05/25/19 07:00 Oxygen Flow Rate (L/min) 3 Oxygen Delivery Method Nasal Cannula Weight: 185 lb 3.013 oz Body Mass Index (BMI) 30.5 Finger Stick Blood Glucose 99 Intake and Output for Last 24 Hours 05/23/19 05/24/19 05/25/19 23:59 23:59 23:59 Intake Total 750 / 800 1583.20 / 1583.20 111.61 / 111.61 Output Total 3000 / 3000 0 / 0 0 / 0 Balance -2250 / -2200 1583.20 / 1583.20 111.61 / 111.61 General: Awake, Alert, Oriented x 3 HEENT: PERRL, EOMI, Sclera Non Icteric Neck: Supple, Good ROM, No Lymph Node Enlargement Lungs: Clear to auscultation Cardiovascular: Regular Rhythm, Normal S1, Normal S2, No Murmurs, No Rubs, No Gallops Vascular: No Carotid Bruits, Normal Femoral Pulses, Normal Radial Pulses, Normal Dorsalis Pedal Pulse, Normal Posterior Tibial Pulses Abdomen: Bowel Sounds Present, Soft, Non Tender, No HSM, No Organomegaly Extremities: No Cyanosis, No Clubbing, No edema Musculoskeletal: No Erythema Skin: No Rashes Lymphatic: No Lymph Node Enlargement Neurological: No Focal Motor or Sensory Deficit Psych/Mental Status: Appropriate 05/24/19 03:20: Total Bilirubin 0.40, Direct Bilirubin 0.16 Rhythm: EKG: ECHO: Stress Test: Cardiac Cath: PCI: CT Surgery: Holter monitor: EPS: PPM: CXR: Chest CT Scan: Medical Necessity - Tobacco Use Smoking Status: Former smoker Tobacco Use: Cigarettes Assessment/Plan 1. Chest pain * Patient presents with chest discomfort the etiology of which is unclear. I do not think that this is coronary in origin. It has been persistent for hours with minimal troponin elevation. * With her renal dysfunction one would need to exclude pericarditis. * Would like to obtain an echocardiogram to exclude any pericardial fluid. * Would like to try nonsteroidal anti-inflammatory agents, and this appears to be working quite well * 2. Coronary artery disease * Patient has known coronary artery disease in the past with an occluded circumflex artery and disease noted in the right coronary artery which has not been intervened upon. * She was sent to [facility] for further evaluation of the above but I do not have the reports of what was intervened on. * We will attempt to obtain those records * 3. Recurrent hypotension * The etiology of the above is unclear at this particular time. She has been started on her Midodrin to see whether this would help * With attempt to wean off the Levophed * * Thank you for allowing me to participate in the care of your patient. Please don't hesitate to call if any issues arise
--- NOTE | 2019-05-25 08:38 | PCM.PROGNOTE ---
Patient Problems: Active and Suspected Problems (Last Reviewed 05/23/19 @ 04:42 by Buddy Olson MD) Chest pain at rest (Acute) Chest pain (Acute) Chest pain (Acute) Subjective: The patient is a 74-year-old female with a past medical history of coronary artery disease (history of stent to the proximal LAD and rotational atherectomy to the proximal, mid and distal RCA), ascites, pancytopenia, atrial fibrillation, bradycardia, diabetes mellitus type 2, hyperlipidemia, hypothyroidism, anemia of chronic kidney disease, hypertension and end-stage renal disease on hemodialysis who presented to the emergency department on 05/23/2019 complaining of substernal aching chest pain. She was admitted to [facility] in January, also for chest pain, and stress at that time was negative. 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 EKG showed no acute changes. She was admitted to a monitored bed on PCU and serial cardiac enzymes were ordered. Cardiology was consulted. Troponin at admission was 0.024 and has not trended. CTA of the chest showed cardiomegaly with a pericardial effusion and no evidence of pulmonary embolism. She had small stable pleural effusions bilaterally. Echocardiogram showed an ejection fraction of 55% with no segmental wall motion abnormalities. There was mild to moderate aortic stenosis and a small pericardial effusion. She had 2+ TR. Dr. Dixon does not feel that the origin of the pain is coronary artery disease. She is on Indocin for suspected pericarditis. All events of the past 24 hours have been reviewed. She is afebrile. She is currently sitting up in a chair and the BP has been decreasing....no longer on pressors. she has been started on Midodrin [address] Reinoso. The last blood pressure was 96/50 but while I was in her room her systolic was 122 while she was talking to me. She denies lightheadedness and nausea. She does complain of SOB but, this is no different than usual. She is not coughing. She is maintaining an oxygen saturation of 97 to 100% on a 3 L nasal cannula. Heart rate is fluctuating and was between 45 bpm and 62 bpm while I was in her room. Amatory monitor shows atrial fibrillation. She is not on any rate limiting agents. All lab was personally reviewed. She no longer makes urine so a UA could not be done. Chest x-ray at admission showed no infiltrates. Blood cultures are pending. BS was low at admission but are now well controlled with no hypoglycemia She tells me that she takes Requip but, it does not help with restless leg. She does not think she takes Midodrine but, the medication reconciliation shows that she is prescribed Midodrin 5 MG on MWF with HD. She has not had a TSH in 4 years and I do not see any cortisols in the EMR. She is complaining of constipation and has not had a BM since . She normally takes Lactulose as needed and states it works well. - Physical Exam Vitals/I&O's: Vital Signs Temp Pulse Resp BP Pulse Ox 97.7 F L 54 L 15 111/42 L 96 05/25/19 04:00 05/25/19 07:00 05/25/19 07:00 05/25/19 07:00 05/25/19 07:00 Oxygen Flow Rate (L/min) 3 Oxygen Delivery Method Nasal Cannula Weight: 185 lb 3.013 oz Body Mass Index (BMI) 30.5 Finger Stick Blood Glucose 99 Intake and Output for Last 24 Hours 05/23/19 05/24/19 05/25/19 23:59 23:59 23:59 Intake Total 750 / 800 1583.20 / 1583.20 111.61 / 111.61 Output Total 3000 / 3000 0 / 0 0 / 0 Balance -2250 / -2200 1583.20 / 1583.20 111.61 / 111.61 General: Alert, Oriented x3, Cooperative, - - Sitting in a chair at the bedside with her legs dependent. HEENT: Atraumatic, Normocephalic, - - she has a hoarse voice Oral: No Gingival or Mucosal Lesions/ Ulcerations Neck: Trachea Midline Lungs: Clear to auscultation, Diminished Cardiovascular: Irregular Rate - tele monitor shows AF with a HR in the 45-762 range on no rate limiting agents. Abdomen: Bowel Sounds Present, Soft, Non Tender, - - No guarding with palpation Extremities: Edema - she has pitting, brawny edema of both LE's up into the posterior thighs, no pitting in the flanks today Psych/Mental Status: Normal Affect, Appropriate Laboratory Results 05/24/19 03:20: Total Bilirubin 0.40, Direct Bilirubin 0.16, AST 20, ALT 11 L, Alkaline Phosphatase 134 H, Total Protein 6.0 L, Albumin 1.5 L, Globulin 4.5 H 05/24/19 12:09: POC Glucose 129 H 05/24/19 16:22: POC Glucose 183 H 05/24/19 20:57: POC Glucose 167 H Current Medications Acetaminophen (Tylenol) 650 mg PO Q6H PRN PRN PRN Reason: Pain Score 1-3/Temp > 100.7 F Last Admin: 05/24/19 15:58 Dose: 650 mg Documented by: Aspirin (Ecotrin) 81 mg PO DAILY@0800 [facility] Last Admin: 05/24/19 10:47 Dose: 81 mg Documented by: Atorvastatin Calcium (Lipitor) 80 mg PO QHS [facility] Last Admin: 05/24/19 21:01 Dose: 80 mg Documented by: Cholecalciferol (Vitamin D) 5,000 unit PO MoWeFr@1000 [facility] Clopidogrel Bisulfate (Plavix) 75 mg PO DAILY [facility] Last Admin: 05/24/19 10:50 Dose: 75 mg Documented by: Dextrose (D50w Syringe) 0 gm IV X1 PRN; Protocol PRN Reason: Hypoglycemia Docusate Sodium (Colace) 100 mg PO BID [facility] Last Admin: 05/24/19 21:00 Dose: 100 mg Documented by: Gabapentin (Neurontin) 200 mg PO BID [facility] Last Admin: 05/24/19 21:00 Dose: 200 mg Documented by: Glucagon () 1 mg IM .X1 PRN PRN Reason: Hypoglycemia Heparin Sodium (Porcine) (Heparin Na) 5,000 unit SC Q12 [facility] Last Admin: 05/24/19 21:01 Dose: 5,000 unit Documented by: Norepinephrine Bitartrate 8 mg (/ Sodium Chloride) 250 mls @ 9.375 mls/hr CONT INF .[id number] [facility]; Protocol Last Titration: 05/25/19 07:00 Dose: 3 mcg/min, 5.6 mls/hr Documented by: Indomethacin (Indocin) 25 mg PO TIDCM [facility] Last Admin: 05/24/19 21:00 Dose: 25 mg Documented by: Insulin Glargine (Lantus (Bkc)) 11 units SC QHS [facility] Last Admin: 05/24/19 21:07 Dose: Not Given Documented by: Insulin Human Lispro (Humalog Kwikpen (Bkc)) 0 unit SC TIDAC [facility]; Protocol Last Admin: 05/24/19 16:27 Dose: 1 unit Documented by: Midodrine (Proamatine) 10 mg PO TID [facility] Last Admin: 05/25/19 04:51 Dose: 10 mg Documented by: Pantoprazole Sodium (Protonix) 40 mg PO DAILY [facility] Last Admin: 05/24/19 10:50 Dose: 40 mg Documented by: Pramipexole Dihydrochloride (Mirapex) 0.25 mg PO QHS [facility] Last Admin: 05/24/19 21:00 Dose: 0.25 mg Documented by: Sevelamer Carbonate (Renvela) 2,400 mg PO TIDCM [facility] Last Admin: 05/24/19 16:24 Dose: 2,400 mg Documented by: Sodium Chloride () 10 - 40 ml IV UD PRN PRN Reason: SALINE FLUSH Last Admin: 05/23/19 20:20 Dose: 30 ml Documented by: Sodium Chloride () 10 - 40 ml IV UD PRN PRN Reason: Multilumen/Alcantara Flush Sodium Chloride (0.9% Nacl (Sterile) Posiflush) 10 - 40 ml IV UD PRN PRN Reason: Port access or dressing change Medical Necessity - Tobacco Use Smoking Status: Former smoker Tobacco Use: Cigarettes Assessment/Plan All Active Problems (Last Reviewed 05/23/19 @ 04:42 by Buddy Olson MD) Chest pain at rest (Acute) Chest pain (Acute) Chest pain (Acute) Closed left scapular fracture (Acute) GI bleed (Resolved) Impressions 1. CP - suspect due to pericarditis. Etiology? viral? due to renal failure? ELIER negative in the past and so was the ds DNA. continue the NSAID - it seems to be helping with the pain. 2. Hypotension - suspect distributive due to IV volume depletion. She is very hypoalbuminemic and third spaces fluids. No obvious infection. Requip is know to cause hypotension and also bradycardia. Baseline cortisol ordered. 3. Bradycardia with AF on no rate limiting agents? Check a TSH and a T4 and DC the Mirapex. 4. Known coronary artery disease with a negative stress test in January 2019 and a cardiac catheterization in 2017 showing patent stents. 5. 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 check a TSH, T4 and a random cortisol....if this is low she should have a Cortrosyn stim test. Orthostatics in the AM Continue the Midodrin 10 mg TID for now. DC the Mirapex - hypotension and bradycardia are 2 of the SE's with this medication.......no Requip at DC. Elevate the legs when seated in a chair CLIVE stanley Code Visit Inpatient E&M: 13063 Subs Hosp L3
[2019-05-25 09:20] LABS: Bedside Glucose 143 mg/dL (70-110)
[2019-05-25] MEDS: Indomethacin 25 MG Capsule PO ×2 (09:24→14:30)
[2019-05-25] MEDS: Aspirin E.C. 81 MG Tablet PO (09:24)
[2019-05-25] MEDS: Docusate Sodium 100 MG Capsule PO ×2 (09:25→21:30)
[2019-05-25] MEDS: SEVELAMER CARBONATE 800 MG TABLET 2400 MG PO ×2 (09:25→14:30)
[2019-05-25] MEDS: 0.9% Saline Lock 10 ML Syringe IV ×3 (09:25→21:28)
[2019-05-25] MEDS: Heparin Injection (Vial) 5,000 UNIT/ML VIAL 5000 UNIT SC ×2 (09:25→21:27)
[2019-05-25] MEDS: Clopidogrel Bisulfate 75 MG Tablet PO (09:26)
[2019-05-25] MEDS: Pantoprazole Sodium 40 MG Tablet PO (09:26)
[2019-05-25] MEDS: Gabapentin 100 MG Capsule 200 MG PO ×2 (09:26→21:30)
[2019-05-25] MEDS: Acetaminophen 325 MG Tablet 650 MG PO (09:34)
[2019-05-25 09:36] LABS: Erythrocyte Sedimentation Rate 48 mm/hr (0-30)
[2019-05-25 14:41] LABS: Bedside Glucose 157 mg/dL (70-110)
[2019-05-25 15:02] LABS: Anion Gap 4 (5-15); BUN 36 mg/dL (7-18); BUN/Creat Ratio 8.5 RATIO (10-20); Calcium,Total 8.1 mg/dL (8.5-10.1); Chloride 100 mmol/L (98-107); Creatinine, Serum 4.22 mg/dL (0.55-1.02); EST Glomerular Filtration Rate 11 mL/min (>60); Est Glom Filt Rate - Afr Amer 13 mL/min (>60); Estimated Creatinine Clearance 10.21 ml/min; Glucose 161 mg/dL (74-106); Potassium 4.1 mmol/L (3.5-5.1); Sodium Level 133 mmol/L (136-145)
[2019-05-25 15:04] LABS: Hemoglobin 10.4 g/dL (12.0-15.0); Mean Corp Hgb Conc 30.6 g/dL (32-36); Mean Corpuscular Hgb 30.2 pg (27.0-32.0); Mean Corpuscular Volume 98.8 fL (81-99); Mean Platelet Vol. 9.8 fl (6.2-12.0); Platelet Count 197 K/mm3 (150-450); RBC Distribution Width CV 17.3 % (11.6-14.6); RBC Distribution Width SD 62.6 fl (35.1-43.9); Red Blood Count 3.44 M/mm3 (4.2-5.4); White Blood Count 7.8 K/mm3 (4.4-11.0)
--- NOTE | 2019-05-25 17:34 | EKG12_ITS ---
Test Reason : CP Blood Pressure : / mmHG Vent. Rate : 083 BPM Atrial Rate : 094 BPM P-R Int : 000 ms QRS Dur : 090 ms QT Int : 364 ms P-R-T Axes : 000 060 062 degrees QTc Int : 427 ms Atrial fibrillation Otherwise normal ECG Confirmed by QUIRINO NEWMAN, NANCIE ([id number]), restaurant expeditor FINESSE ZAVALETA ([id number]) on 05/26/2019 12:41:53 PM Referred By: Buddy Olson Confirmed By:NANCIE WIN MD
[2019-05-25] MEDS: Metoclopramide 10 MG/2 ML Vial 5 MG IV (17:39)
[2019-05-25 18:41] LABS: T4 Free Direct 0.89 ng/dL (0.76-1.46); Thyroid Stim Hormone (TSH) 3.57 uIU/mL (0.358-3.74)
[2019-05-25 19:21] LABS: Bedside Glucose 171 mg/dL (70-110)
[2019-05-25] MEDS: Atorvastatin Calcium 80 MG Tablet PO (21:30)
[2019-05-25 21:41] LABS: Bedside Glucose 161 mg/dL (70-110)
[2019-05-26] VITALS (22 sets, daily range): BP systolic 114–152; BP diastolic 43–64; PULSE 52–83; RESP 11–20; TEMP 36.5–36.8; O2SAT 96–100
[2019-05-26 04:32] LABS: Anion Gap 5 (5-15); BUN 40 mg/dL (7-18); BUN/Creat Ratio 8.4 RATIO (10-20); Calcium,Total 7.8 mg/dL (8.5-10.1); Chloride 96 mmol/L (98-107); Creatinine, Serum 4.74 mg/dL (0.55-1.02); EST Glomerular Filtration Rate 10 mL/min (>60); Est Glom Filt Rate - Afr Amer 12 mL/min (>60); Estimated Creatinine Clearance 9.09 ml/min; Glucose 118 mg/dL (74-106); Potassium 4.3 mmol/L (3.5-5.1); Sodium Level 131 mmol/L (136-145)
[2019-05-26 04:55] LABS: Hematocrit 33.9 % (37-47); Hemoglobin 10.4 g/dL (12.0-15.0); Mean Corp Hgb Conc 30.7 g/dL (32-36); Mean Corpuscular Hgb 30.1 pg (27.0-32.0); Mean Platelet Vol. 9.4 fl (6.2-12.0); Platelet Count 201 K/mm3 (150-450); RBC Distribution Width CV 17.3 % (11.6-14.6); RBC Distribution Width SD 62.5 fl (35.1-43.9); Red Blood Count 3.46 M/mm3 (4.2-5.4); White Blood Count 6.5 K/mm3 (4.4-11.0)
[2019-05-26] MEDS: Midodrine HCl 5 MG Tablet 10 MG PO ×3 (05:25→22:00)
--- NOTE | 2019-05-26 06:56 | PN.CARD_ITS ---
Subjectve: Patient seen and evaluated. Appears to be stable at this time Objective: Vital Signs Temp Pulse Resp BP Pulse Ox 97.8 F 58 L 11 L 131/45 H 100 05/26/19 04:00 05/26/19 06:00 05/26/19 06:00 05/26/19 06:00 05/26/19 06:00 Oxygen Flow Rate (L/min) 2 Oxygen Delivery Method Nasal Cannula Weight: 186 lb 1.122 oz Body Mass Index (BMI) 30.5 Finger Stick Blood Glucose 99 Orthostatic Vital Signs Start: 05/26/19 04:15 Freq: q24h Status: Active Protocol: Activity Type Activity Date Activity User E-Sign Co-Sign Detail Recorded Client Recorded Date Recorded By Document 05/26/19 04:15 AW [id number] 05/26/19 04:17 AW 05/26/19 04:15 Orthostatic Vitals Standing -Blood Pressure (90/60-120/80) 143/64 H -Extremity Use Right Arm -Pulse Rate (60-100) 68 Sitting -Blood Pressure (90/60-120/80) 138/60 H -Extremity Use Right Arm -Pulse Rate (60-100) 65 Lying -Blood Pressure (90/60-120/80) 145/53 H -Extremity Use Right Arm -Pulse Rate (60-100) 69 Intake and Output for Last 24 Hours 05/24/19 05/25/19 05/26/19 23:59 23:59 23:59 Intake Total 1583.20 / 1583.20 1233.64 / 1233.64 220 / 220 Output Total 0 / 0 0 / 0 0 / 0 Balance 1583.20 / 1583.20 1233.64 / 1233.64 220 / 220 General: Awake, Alert, Oriented x 3 HEENT: PERRL, EOMI, Sclera Non Icteric Neck: Supple, Good ROM, No Lymph Node Enlargement Lungs: Clear to auscultation Cardiovascular: Irregular Rhythm, Normal S1, Normal S2, No Murmurs, No Rubs, No Gallops Vascular: No Carotid Bruits, Normal Femoral Pulses, Normal Radial Pulses, Normal Dorsalis Pedal Pulse, Normal Posterior Tibial Pulses Abdomen: Bowel Sounds Present, Soft, Non Tender, No HSM, No Organomegaly Extremities: No Cyanosis, No Clubbing, No edema Musculoskeletal: No Erythema Skin: No Rashes Lymphatic: No Lymph Node Enlargement Neurological: No Focal Motor or Sensory Deficit Psych/Mental Status: Appropriate 05/25/19 09:15: WBC 7.8, RBC 3.44 L, Hgb 10.4 L, Hct 34.0 L, MCV 98.8, MCH 30.2, MCHC 30.6 L, Plt Count 197, MPV 9.8 05/25/19 09:15: Sodium 133 L, Potassium 4.1, Chloride 100, Carbon Dioxide 29.0, Anion Gap 4 L, BUN 36 H, Creatinine 4.22 H, Est GFR (MDRD) Af Amer 13 L, Est GFR (MDRD) Non-Af 11 L, BUN/Creatinine Ratio 8.5 L, Glucose 161 H, Calcium 8.1 L 05/26/19 04:10: WBC 6.5, RBC 3.46 L, Hgb 10.4 L, Hct 33.9 L, MCV 98.0, MCH 30.1, MCHC 30.7 L, Plt Count 201, MPV 9.4 05/26/19 04:10: Sodium 131 L, Potassium 4.3, Chloride 96 L, Carbon Dioxide 30.0, Anion Gap 5, BUN 40 H, Creatinine 4.74 H, Est GFR (MDRD) Af Amer 12 L, Est GFR (MDRD) Non-Af 10 L, BUN/Creatinine Ratio 8.4 L, Glucose 118 H, Calcium 7.8 L Rhythm: EKG: ECHO: Stress Test: Cardiac Cath: PCI: CT Surgery: Holter monitor: EPS: PPM: CXR: Chest CT Scan: Medical Necessity - Tobacco Use Smoking Status: Former smoker Tobacco Use: Cigarettes Assessment/Plan 1. Chest pain * Patient presents with chest discomfort the etiology of which is unclear. I do not think that this is coronary in origin. It has been persistent for hours with minimal troponin elevation. * With her renal dysfunction one would need to exclude pericarditis. * Echocardiogram demonstrated preserved ejection fraction with minimal pericardial fluid * Would like to try nonsteroidal anti-inflammatory agents, and this appears to be working quite well. But with her history of GI bleed I think we can discontinue this at this particular time. * 2. Coronary artery disease * Patient has known coronary artery disease in the past with an occluded circumflex artery and disease noted in the right coronary artery which has not been intervened upon. * She was sent to [facility] for further evaluation of the above but I do not have the reports of what was intervened on. * We will attempt to obtain those records * 3. Recurrent hypotension * The etiology of the above is unclear at this particular time. She has been started on her Midodrin to see whether this would help * * 4. Atrial fibrillation * Patient has previous history of atrial fibrillation. Her ventricular response rate is controlled at this time. * I am hesitant to anticoagulate at this particular juncture. * Thank you for allowing me to participate in the care of your patient. Please don't hesitate to call if any issues arise
[2019-05-26 08:01] LABS: Bedside Glucose 98 mg/dL (70-110)
[2019-05-26] MEDS: SEVELAMER CARBONATE 800 MG TABLET 2400 MG PO ×2 (08:14→17:11)
[2019-05-26] MEDS: Aspirin E.C. 81 MG Tablet PO (08:14)
--- NOTE | 2019-05-26 09:05 | PCM.PN.INT ---
Subjective: Patient did well overnight. No Levophed has been required since approximately 9 AM yesterday. Patient did well overnight. Patient continues to have periodic episodes of bradycardia, but blood pressure has been stable. Patient is still on minimal nasal cannula oxygen, but uses oxygen at baseline. Patient is reportedly to receive hemodialysis today per nursing. Patient has no new complaints this morning General: Alert, Oriented x3, Cooperative, No apparent distress, Well developed, Well nourished, - - No conversational dyspnea. HEENT: Atraumatic, PERRLA, EOMI, Normocephalic, - - No scleral icterus or injection noted Oral: Moist Mucosa, No Gingival or Mucosal Lesions/ Ulcerations Neck: Supple, No JVD, No Nodes, Trachea Midline Lungs: No rhonchi, No wheeze, No rales, Diminished Cardiovascular: Regular rate, Regular Rhythm, Normal S1, Normal S2, No murmurs, No rub noted, No Gallop Abdomen: Bowel Sounds Present, Soft, Non Tender, Non-Distended, Obese Extremities: No clubbing, No cyanosis, Edema - Trace to 1+ Skin: No rashes, No breakdown Musculoskeletal: No Tenderness to Palpation of Joints or Extremities Lymphatic: No Cervical, Supraclavicular, or Inguinal Adenopathy Neurological: Cranial nerves II-XII grossly intact, Neuro grossly intact, Motor Exam 5/5 strength throughout Psych/Mental Status: Alert and oriented to time, place, person, mood and affect Vital Signs Temp Pulse Resp BP Pulse Ox 36.6 C 60 12 141/50 H 100 05/26/19 08:00 05/26/19 08:00 05/26/19 08:00 05/26/19 08:00 05/26/19 08:00 Oxygen Flow Rate (L/min) 2 Oxygen Delivery Method Nasal Cannula Weight: 84.4 kg Body Mass Index (BMI) 30.5 Finger Stick Blood Glucose 99 Orthostatic Vital Signs Start: 05/26/19 04:15 Freq: q24h Status: Active Protocol: Activity Type Activity Date Activity User E-Sign Co-Sign Detail Recorded Client Recorded Date Recorded By Document 05/26/19 04:15 AW [id number] 05/26/19 04:17 AW 05/26/19 04:15 Orthostatic Vitals Standing -Blood Pressure (90/60-120/80) 143/64 H -Extremity Use Right Arm -Pulse Rate (60-100) 68 Sitting -Blood Pressure (90/60-120/80) 138/60 H -Extremity Use Right Arm -Pulse Rate (60-100) 65 Lying -Blood Pressure (90/60-120/80) 145/53 H -Extremity Use Right Arm -Pulse Rate (60-100) 69 Intake and Output for Last 24 Hours 05/24/19 05/25/19 05/26/19 23:59 23:59 23:59 Intake Total 1583.20 / 1583.20 1233.64 / 1233.64 220 / 220 Output Total 0 / 0 0 / 0 0 / 0 Balance 1583.20 / 1583.20 1233.64 / 1233.64 220 / 220 Labs (Last 48 Hours) 05/24/19 05/24/19 05/24/19 03:20 12:09 16:22 WBC RBC Hgb Hct MCV MCH MCHC RDW Std Deviation RDW Coeff of Susan Plt Count MPV ESR Sodium Potassium Chloride Carbon Dioxide Anion Gap BUN Creatinine Estim Creat Clear Calc Est GFR (MDRD) Af Amer Est GFR (MDRD) Non-Af BUN/Creatinine Ratio Glucose Calcium Total Bilirubin 0.40 Direct Bilirubin 0.16 AST 20 ALT 11 L Alkaline Phosphatase 134 H C-React Prot Ext Range Total Protein 6.0 L Albumin 1.5 L Globulin 4.5 H TSH Free T4 Cortisol POC Glucose 129 H 183 H 05/24/19 05/25/19 05/25/19 20:57 08:52 09:15 WBC RBC Hgb Hct MCV MCH MCHC RDW Std Deviation RDW Coeff of Susan Plt Count MPV ESR 48 H Sodium Potassium Chloride Carbon Dioxide Anion Gap BUN Creatinine Estim Creat Clear Calc Est GFR (MDRD) Af Amer Est GFR (MDRD) Non-Af BUN/Creatinine Ratio Glucose Calcium Total Bilirubin Direct Bilirubin AST ALT Alkaline Phosphatase C-React Prot Ext Range Total Protein Albumin Globulin TSH Free T4 Cortisol POC Glucose 167 H 143 H 05/25/19 05/25/19 05/25/19 09:15 09:15 09:15 WBC 7.8 RBC 3.44 L Hgb 10.4 L Hct 34.0 L MCV 98.8 MCH 30.2 MCHC 30.6 L RDW Std Deviation 62.6 H RDW Coeff of Susan 17.3 H Plt Count 197 MPV 9.8 ESR Sodium 133 L Potassium 4.1 Chloride 100 Carbon Dioxide 29.0 Anion Gap 4 L BUN 36 H Creatinine 4.22 H Estim Creat Clear Calc 10.21 Est GFR (MDRD) Af Amer 13 L Est GFR (MDRD) Non-Af 11 L BUN/Creatinine Ratio 8.5 L Glucose 161 H Calcium 8.1 L Total Bilirubin Direct Bilirubin AST ALT Alkaline Phosphatase C-React Prot Ext Range 125.00 H Total Protein Albumin Globulin TSH Free T4 Cortisol POC Glucose 05/25/19 05/25/19 05/25/19 14:28 17:55 17:55 WBC RBC Hgb Hct MCV MCH MCHC RDW Std Deviation RDW Coeff of Susan Plt Count MPV ESR Sodium Potassium Chloride Carbon Dioxide Anion Gap BUN Creatinine Estim Creat Clear Calc Est GFR (MDRD) Af Amer Est GFR (MDRD) Non-Af BUN/Creatinine Ratio Glucose Calcium Total Bilirubin Direct Bilirubin AST ALT Alkaline Phosphatase C-React Prot Ext Range Total Protein Albumin Globulin TSH 3.57 Free T4 0.89 Cortisol Pending POC Glucose 157 H 05/25/19 05/25/19 05/26/19 19:18 21:24 04:10 WBC 6.5 RBC 3.46 L Hgb 10.4 L Hct 33.9 L MCV 98.0 MCH 30.1 MCHC 30.7 L RDW Std Deviation 62.5 H RDW Coeff of Susan 17.3 H Plt Count 201 MPV 9.4 ESR Sodium Potassium Chloride Carbon Dioxide Anion Gap BUN Creatinine Estim Creat Clear Calc Est GFR (MDRD) Af Amer Est GFR (MDRD) Non-Af BUN/Creatinine Ratio Glucose Calcium Total Bilirubin Direct Bilirubin AST ALT Alkaline Phosphatase C-React Prot Ext Range Total Protein Albumin Globulin TSH Free T4 Cortisol POC Glucose 171 H 161 H 05/26/19 05/26/19 04:10 07:51 WBC RBC Hgb Hct MCV MCH MCHC RDW Std Deviation RDW Coeff of Susan Plt Count MPV ESR Sodium 131 L Potassium 4.3 Chloride 96 L Carbon Dioxide 30.0 Anion Gap 5 BUN 40 H Creatinine 4.74 H Estim Creat Clear Calc 9.09 Est GFR (MDRD) Af Amer 12 L Est GFR (MDRD) Non-Af 10 L BUN/Creatinine Ratio 8.4 L Glucose 118 H Calcium 7.8 L Total Bilirubin Direct Bilirubin AST ALT Alkaline Phosphatase C-React Prot Ext Range Total Protein Albumin Globulin TSH Free T4 Cortisol POC Glucose 98 Medical Necessity - Tobacco Use Smoking Status: Former smoker Tobacco Use: Cigarettes Assessment/Plan All Active Problems (Last Reviewed 05/23/19 @ 04:42 by Buddy Olson MD) Chest pain at rest (Acute) Chest pain (Acute) Chest pain (Acute) Closed left scapular fracture (Acute) GI bleed (Resolved) RECOMMENDATIONS: 1. Discontinue Levophed 2. Hemodialysis per nephrology 3. Continue midodrine 10 mg TID. 4. Continue 2-3 L/min of supplemental oxygen on a nightly basis, per outpatient regimen 5. Discontinue basal insulin until p.o. intake more consistent 6. Okay to leave the intensive care unit from my perspective IMPRESSIONS: 1. Shock, distributive versus hypovolemic in etiology Patient hemodynamically stable overnight. Patient is to receive hemodialysis today. Cultures have been negative to this point, so doubt infectious etiology. Would recommend avoidance of morphine if possible as this does have some histamine effect and can lead to worsening hypotension. Patient should be continued on midodrine therapy. Hemodynamically stable to leave the intensive care unit from my perspective. 2. Atypical chest pain/known history of coronary artery disease Defer management to cardiology, who is currently following. 3. End-stage renal disease on hemodialysis Continue hemodialysis support per nephrology recommendations. 4. Underlying cirrhosis/diabetes mellitus/restless leg syndrome/GERD/hyperlipidemia Complicates care, management, recovery and prognosis. Continue home medications as indicated. Mobilize patient as tolerated. Will discontinue patient's basal insulin as blood sugars have been relatively controlled and p.o. intake is variable. Risk for hypoglycemia is significant at this time. This can be reinitiated once patient's p.o. intake is more consistent. Code Visit Inpatient E&M: 97392 Subs Hosp L3
--- NOTE | 2019-05-26 09:12 | PCM.PROGNOTE ---
Patient Problems: Active and Suspected Problems (Last Reviewed 05/23/19 @ 04:42 by Buddy Olson MD) Chest pain (Acute) Subjective: Chief complaint: Follow-up after admission for shock probably hypovolemic and atypical chest pain. Patient seen and examined. No acute events overnight. She denied any more chest pain. Denied worsening shortness of breath. Cough or sputum production. Denied dizziness or lightheadedness. Denied abdominal pain, nausea or vomiting. She has been off vasopressors since yesterday morning. Blood pressure stabilized. She has been afebrile, other vital signs are stable. - Physical Exam Vitals/I&O's: Vital Signs Temp Pulse Resp BP Pulse Ox 97.8 F 60 12 141/50 H 100 05/26/19 08:00 05/26/19 08:00 05/26/19 08:00 05/26/19 08:00 05/26/19 08:00 Oxygen Flow Rate (L/min) 2 Oxygen Delivery Method Nasal Cannula Weight: 186 lb 1.122 oz Body Mass Index (BMI) 30.5 Finger Stick Blood Glucose 99 Orthostatic Vital Signs Start: 05/26/19 04:15 Freq: q24h Status: Active Protocol: Activity Type Activity Date Activity User E-Sign Co-Sign Detail Recorded Client Recorded Date Recorded By Document 05/26/19 04:15 AW [id number] 05/26/19 04:17 AW 05/26/19 04:15 Orthostatic Vitals Standing -Blood Pressure (90/60-120/80) 143/64 H -Extremity Use Right Arm -Pulse Rate (60-100) 68 Sitting -Blood Pressure (90/60-120/80) 138/60 H -Extremity Use Right Arm -Pulse Rate (60-100) 65 Lying -Blood Pressure (90/60-120/80) 145/53 H -Extremity Use Right Arm -Pulse Rate (60-100) 69 Intake and Output for Last 24 Hours 05/24/19 05/25/19 05/26/19 23:59 23:59 23:59 Intake Total 1583.20 / 1583.20 1233.64 / 1233.64 220 / 220 Output Total 0 / 0 0 / 0 0 / 0 Balance 1583.20 / 1583.20 1233.64 / 1233.64 220 / 220 General: Alert, Oriented x3, Cooperative, No apparent distress HEENT: Atraumatic, PERRLA, EOMI, Normocephalic Oral: Moist Mucosa, No Gingival or Mucosal Lesions/ Ulcerations Neck: Supple, No JVD, Negative Carotid Bruits, Trachea Midline, Thyroid Normal Size and Texture Lungs: Clear to auscultation, Normal air movement, No rhonchi, No wheeze, No rales, Diminished Cardiovascular: Regular rate, Regular Rhythm, Normal S1, Normal S2, PMI Normal Abdomen: Bowel Sounds Present, Soft, Non Tender, Non-Distended, No Hepato-splenomegaly Extremities: No clubbing, No cyanosis, Edema - Trace edema. Skin: No rashes, No breakdown Lymphatic: No Cervical, Supraclavicular, or Inguinal Adenopathy Neurological: Cranial nerves II-XII grossly intact, Motor Exam 5/5 strength throughout Psych/Mental Status: Normal Affect, Appropriate Laboratory Results 05/25/19 08:52: POC Glucose 143 H 05/25/19 09:15: ESR 48 H 05/25/19 09:15: C-React Prot Ext Range 125.00 H 05/25/19 09:15: WBC 7.8, RBC 3.44 L, Hgb 10.4 L, Hct 34.0 L, MCV 98.8, MCH 30.2, MCHC 30.6 L, RDW Std Deviation 62.6 H, RDW Coeff of Susan 17.3 H, Plt Count 197, MPV 9.8 05/25/19 09:15: Sodium 133 L, Potassium 4.1, Chloride 100, Carbon Dioxide 29.0, Anion Gap 4 L, BUN 36 H, Creatinine 4.22 H, Estim Creat Clear Calc 10.21, Est GFR (MDRD) Af Amer 13 L, Est GFR (MDRD) Non-Af 11 L, BUN/Creatinine Ratio 8.5 L, Glucose 161 H, Calcium 8.1 L 05/25/19 14:28: POC Glucose 157 H 05/25/19 17:55: TSH 3.57, Free T4 0.89 05/25/19 17:55: Cortisol 21.20 05/25/19 19:18: POC Glucose 171 H 05/25/19 21:24: POC Glucose 161 H 05/26/19 04:10: WBC 6.5, RBC 3.46 L, Hgb 10.4 L, Hct 33.9 L, MCV 98.0, MCH 30.1, MCHC 30.7 L, RDW Std Deviation 62.5 H, RDW Coeff of Susan 17.3 H, Plt Count 201, MPV 9.4 05/26/19 04:10: Sodium 131 L, Potassium 4.3, Chloride 96 L, Carbon Dioxide 30.0, Anion Gap 5, BUN 40 H, Creatinine 4.74 H, Estim Creat Clear Calc 9.09, Est GFR (MDRD) Af Amer 12 L, Est GFR (MDRD) Non-Af 10 L, BUN/Creatinine Ratio 8.4 L, Glucose 118 H, Calcium 7.8 L 05/26/19 07:51: POC Glucose 98 Clinical Impression(s) from Imaging Studies Current Medications Acetaminophen (Tylenol) 650 mg PO Q6H PRN PRN PRN Reason: Pain Score 1-3/Temp > 100.7 F Last Admin: 05/25/19 09:34 Dose: 650 mg Documented by: Aspirin (Ecotrin) 81 mg PO DAILY@0800 [facility] Last Admin: 05/26/19 08:14 Dose: 81 mg Documented by: Atorvastatin Calcium (Lipitor) 80 mg PO QHS [facility] Last Admin: 05/25/19 21:30 Dose: 80 mg Documented by: Cholecalciferol (Vitamin D) 5,000 unit PO MoWeFr@1000 F[facility] Clopidogrel Bisulfate (Plavix) 75 mg PO DAILY [facility] Last Admin: 05/25/19 09:26 Dose: 75 mg Documented by: Docusate Sodium (Colace) 100 mg PO BID [facility] Last Admin: 05/25/19 21:30 Dose: 100 mg Documented by: Gabapentin (Neurontin) 200 mg PO BID [facility] Last Admin: 05/25/19 21:30 Dose: 200 mg Documented by: Glucagon () 1 mg IM .X1 PRN PRN Reason: Hypoglycemia Heparin Sodium (Porcine) (Heparin Na) 5,000 unit SC Q12 [facility] Last Admin: 05/25/19 21:27 Dose: 5,000 unit Documented by: Dextrose (Dextrose 10%-Water) 250 mls @ 999 mls/hr IV .Q16M PRN; Protocol PRN Reason: HYPOGLYCEMIA Insulin Human Lispro (Humalog Kwikpen (Bkc)) 0 unit SC TIDAC [facility]; Protocol Last Admin: 05/26/19 07:52 Dose: Not Given Documented by: Lactulose (Chronulac, Cephulac) 40 gm PO Q12H PRN PRN PRN Reason: Constipation Metoclopramide HCl (Reglan) 5 mg IV Q6H PRN PRN PRN Reason: NAUSEA Last Admin: 05/25/19 17:39 Dose: 5 mg Documented by: Midodrine (Proamatine) 10 mg PO TID [facility] Last Admin: 05/26/19 05:25 Dose: 10 mg Documented by: Pantoprazole Sodium (Protonix) 40 mg PO DAILY [facility] Last Admin: 05/25/19 09:26 Dose: 40 mg Documented by: Sevelamer Carbonate (Renvela) 2,400 mg PO TIDCM [facility] Last Admin: 05/26/19 08:14 Dose: 2,400 mg Documented by: Sodium Chloride () 10 - 40 ml IV UD PRN PRN Reason: SALINE FLUSH Last Admin: 05/25/19 21:28 Dose: 20 ml Documented by: Sodium Chloride () 10 - 40 ml IV UD PRN PRN Reason: Multilumen/Alcantara Flush Sodium Chloride (0.9% Nacl (Sterile) Posiflush) 10 - 40 ml IV UD PRN PRN Reason: Port access or dressing change Medical Necessity - Tobacco Use Smoking Status: Former smoker Assessment/Plan All Active Problems (Last Reviewed 05/23/19 @ 04:42 by Buddy Olson MD) Chest pain (Acute) This is a 74 years old female patient presented to the emergency room because of chest pain, found to have low blood pressure, was admitted to the ICU because of what seemed to be hypovolemic shock. #1 chest pain/suspected pericarditis: On Indocin which was discontinued today. Patient denies any more chest pain. EKG revealed no acute acute changes. Troponin was negative. 2D echocardiogram revealed normal LV size and function, ejection fraction 55%, small pericardial effusion. Cardiology on the case. #2 hypovolemic shock: Attributed to volume depletion after hemodialysis and paracentesis. Patient has been off vasopressors since yesterday morning. Blood pressure stabilized, on midodrine. She has been afebrile, heart rate stable, blood pressure stable. Plan to continue same treatment. #3 ESRD on dialysis: On dialysis on Mondays, Wednesdays and Fridays. Nephrology on the case, plan for hemodialysis today. #4 liver cirrhosis: Status post paracentesis which was done the day before admission, 3.3 L of ascitic fluid drained. Patient is on lactulose only. No evidence of hepatic encephalopathy, stable. #5 CAD status post stents: Stable, continue aspirin, statins, Plavix. Nitrate held because of low blood pressure which improved. #6 type 2 diabetes mellitus: Blood sugar stable, continue Humalog insulin 3 times daily sliding scale. #7 hyperlipidemia: Continue statins. #8 GERD: Continue Protonix. #9 chronic anemia: Secondary to anemia of chronic disease, hemoglobin and hematocrit are stable. #10 DVT prophylaxis: Subcu heparin. This note was generated with [employer] dictation software. It may contain incorrect words, spelling, and punctuation that were not noted in checking the note before signing. Code Visit Inpatient E&M: 01679 Subs Hosp L2
[2019-05-26] MEDS: Heparin Injection (Vial) 5,000 UNIT/ML VIAL 5000 UNIT SC ×2 (09:20→22:00)
[2019-05-26] MEDS: Docusate Sodium 100 MG Capsule PO ×2 (09:20→22:01)
[2019-05-26] MEDS: Pantoprazole Sodium 40 MG Tablet PO (09:20)
[2019-05-26] MEDS: Clopidogrel Bisulfate 75 MG Tablet PO (09:20)
[2019-05-26] MEDS: Gabapentin 100 MG Capsule 200 MG PO ×2 (09:20→22:01)
--- NOTE | 2019-05-26 11:12 | CASEMGMT ---
Addendum entered by Matilde Burton 05/26/19 12:00: SW did update Candelaria at [facility] to submit for pre-cert. Pt should transfer to PCU today. Original Note: Social Work Updated clinicals faxed to [facility]. Ximena WHITTEN, JAMES
--- NOTE | 2019-05-26 11:43 | PCM.PN.REN ---
Patient Problems: Active and Suspected Problems (Last Reviewed 05/23/19 @ 04:42 by Buddy Olson MD) Chest pain (Acute) Subjective: Seen on dialysis. Blood pressure low normal. Give second dose of midodrine now. Still with lower extremity edema, attempt 2 to 3 L fluid removal as tolerated. Chest pain improved. - Physical Exam Vitals/I&O's: Vital Signs Temp Pulse Resp BP Pulse Ox 98 F 78 17 131/50 H 98 05/26/19 10:00 05/26/19 11:03 05/26/19 10:00 05/26/19 10:00 05/26/19 10:00 Oxygen Flow Rate (L/min) 2 Oxygen Delivery Method Nasal Cannula Weight: 84.4 kg Body Mass Index (BMI) 30.5 Finger Stick Blood Glucose 99 Orthostatic Vital Signs Start: 05/26/19 04:15 Freq: q24h Status: Active Protocol: Activity Type Activity Date Activity User E-Sign Co-Sign Detail Recorded Client Recorded Date Recorded By Document 05/26/19 04:15 AW [id number] 05/26/19 04:17 AW 05/26/19 04:15 Orthostatic Vitals Standing -Blood Pressure (90/60-120/80) 143/64 H -Extremity Use Right Arm -Pulse Rate (60-100) 68 Sitting -Blood Pressure (90/60-120/80) 138/60 H -Extremity Use Right Arm -Pulse Rate (60-100) 65 Lying -Blood Pressure (90/60-120/80) 145/53 H -Extremity Use Right Arm -Pulse Rate (60-100) 69 Intake and Output for Last 24 Hours 05/24/19 05/25/19 05/26/19 23:59 23:59 23:59 Intake Total 1583.20 / 1583.20 1233.64 / 1233.64 460 / 460 Output Total 0 / 0 0 / 0 0 / 0 Balance 1583.20 / 1583.20 1233.64 / 1233.64 460 / 460 General: Alert, Oriented x3, Cooperative, No apparent distress Lungs: Clear to auscultation Cardiovascular: Regular rate, Murmur Abdomen: Bowel Sounds Present, Soft, Non Tender, Distended, Obese Extremities: Edema Psych/Mental Status: Normal Affect, Appropriate, Alert and oriented to time, place, person, mood and affect Laboratory Results 05/25/19 09:15: WBC 7.8, RBC 3.44 L, Hgb 10.4 L, Hct 34.0 L, MCV 98.8, MCH 30.2, MCHC 30.6 L, RDW Std Deviation 62.6 H, RDW Coeff of Susan 17.3 H, Plt Count 197, MPV 9.8 05/25/19 09:15: Sodium 133 L, Potassium 4.1, Chloride 100, Carbon Dioxide 29.0, Anion Gap 4 L, BUN 36 H, Creatinine 4.22 H, Estim Creat Clear Calc 10.21, Est GFR (MDRD) Af Amer 13 L, Est GFR (MDRD) Non-Af 11 L, BUN/Creatinine Ratio 8.5 L, Glucose 161 H, Calcium 8.1 L 05/25/19 14:28: POC Glucose 157 H 05/25/19 17:55: TSH 3.57, Free T4 0.89 05/25/19 17:55: Cortisol 21.20 05/25/19 19:18: POC Glucose 171 H 05/25/19 21:24: POC Glucose 161 H 05/26/19 04:10: WBC 6.5, RBC 3.46 L, Hgb 10.4 L, Hct 33.9 L, MCV 98.0, MCH 30.1, MCHC 30.7 L, RDW Std Deviation 62.5 H, RDW Coeff of Susan 17.3 H, Plt Count 201, MPV 9.4 05/26/19 04:10: Sodium 131 L, Potassium 4.3, Chloride 96 L, Carbon Dioxide 30.0, Anion Gap 5, BUN 40 H, Creatinine 4.74 H, Estim Creat Clear Calc 9.09, Est GFR (MDRD) Af Amer 12 L, Est GFR (MDRD) Non-Af 10 L, BUN/Creatinine Ratio 8.4 L, Glucose 118 H, Calcium 7.8 L 05/26/19 07:51: POC Glucose 98 Current Medications Acetaminophen (Tylenol) 650 mg PO Q6H PRN PRN PRN Reason: Pain Score 1-3/Temp > 100.7 F Last Admin: 05/25/19 09:34 Dose: 650 mg Documented by: Aspirin (Ecotrin) 81 mg PO DAILY@0800 [facility] Last Admin: 05/26/19 08:14 Dose: 81 mg Documented by: Atorvastatin Calcium (Lipitor) 80 mg PO QHS [facility] Last Admin: 05/25/19 21:30 Dose: 80 mg Documented by: Cholecalciferol (Vitamin D) 5,000 unit PO MoWeFr@1000 [facility] Last Admin: 05/26/19 09:20 Dose: 5,000 unit Documented by: Clopidogrel Bisulfate (Plavix) 75 mg PO DAILY [facility] Last Admin: 05/26/19 09:20 Dose: 75 mg Documented by: Docusate Sodium (Colace) 100 mg PO BID [facility] Last Admin: 05/26/19 09:20 Dose: 100 mg Documented by: Gabapentin (Neurontin) 200 mg PO BID [facility] Last Admin: 05/26/19 09:20 Dose: 200 mg Documented by: Glucagon () 1 mg IM .X1 PRN PRN Reason: Hypoglycemia Heparin Sodium (Porcine) (Heparin Na) 5,000 unit SC Q12 [facility] Last Admin: 05/26/19 09:20 Dose: 5,000 unit Documented by: Dextrose (Dextrose 10%-Water) 250 mls @ 999 mls/hr IV .Q16M PRN; Protocol PRN Reason: HYPOGLYCEMIA Insulin Human Lispro (Humalog Kwikpen (Bkc)) 0 unit SC TIDAC [facility]; Protocol Last Admin: 05/26/19 07:52 Dose: Not Given Documented by: Lactulose (Chronulac, Cephulac) 40 gm PO Q12H PRN PRN PRN Reason: Constipation Metoclopramide HCl (Reglan) 5 mg IV Q6H PRN PRN PRN Reason: NAUSEA Last Admin: 05/25/19 17:39 Dose: 5 mg Documented by: Midodrine (Proamatine) 10 mg PO TID [facility] Last Admin: 05/26/19 11:30 Dose: 10 mg Documented by: Pantoprazole Sodium (Protonix) 40 mg PO DAILY [facility] Last Admin: 05/26/19 09:20 Dose: 40 mg Documented by: Sevelamer Carbonate (Renvela) 2,400 mg PO TIDCM [facility] Last Admin: 05/26/19 08:14 Dose: 2,400 mg Documented by: Sodium Chloride () 10 - 40 ml IV UD PRN PRN Reason: SALINE FLUSH Last Admin: 05/25/19 21:28 Dose: 20 ml Documented by: Sodium Chloride () 10 - 40 ml IV UD PRN PRN Reason: Multilumen/Alcantara Flush Sodium Chloride (0.9% Nacl (Sterile) Posiflush) 10 - 40 ml IV UD PRN PRN Reason: Port access or dressing change Medical Necessity - Tobacco Use Smoking Status: Former smoker Tobacco Use: Cigarettes Assessment/Plan All Active Problems (Last Reviewed 05/23/19 @ 04:42 by Buddy Olson MD) Chest pain (Acute) 1. ESRD hemodialysis Sunday, Sunday, Sunday. Seen on dialysis. Attempt 2 to 3 L as tolerated. Midodrine 3 times a day ordered. 2. Acute chest pain history of left scapular fracture from fall 2 weeks ago. Chest pain resolved 3. DM type II primary service management 4. Hypotension likely due to liver cirrhosis. Continue midodrine 3 times a day. 5. History of GI bleed with anemia hemoglobin stable. 6. Liver cirrhosis with ascites requiring frequent paracentesis. Last paracentesis May 22.
[2019-05-26 12:20] LABS: Bedside Glucose 129 mg/dL (70-110)
[2019-05-26] MEDS: Lactulose 20 GM/30 ML UDC 40 GM PO (15:02)
--- NOTE | 2019-05-26 15:22 | DIALYSIS ---
Hemodialysis x 4 hours. -3000ml off. Stable t/o. Tolerated well. Hemostasis x 8 mins - dressing applied. Report to Loan JESUS. See HD flowsheet for further details.
[2019-05-26 16:36] LABS: Bedside Glucose 160 mg/dL (70-110)
[2019-05-26] MEDS: Insulin Lispro 100 UNIT/ML INSULN.PEN SC (17:14)
[2019-05-26] MEDS: Atorvastatin Calcium 80 MG Tablet PO (22:01)
[2019-05-26] MEDS: 0.9% Saline Lock 10 ML Syringe IV (22:05)
[2019-05-26 22:15] LABS: Bedside Glucose 178 mg/dL (70-110)
[2019-05-27] VITALS (7 sets, daily range): BP systolic 129–162; BP diastolic 44–58; PULSE 62–93; RESP 16–18; TEMP 36.2–36.7; O2SAT 96–100
[2019-05-27] MEDS: 0.9% Saline Lock 10 ML Syringe IV (06:05)
[2019-05-27] MEDS: Metoclopramide 10 MG/2 ML Vial 5 MG IV (06:05)
[2019-05-27] MEDS: Midodrine HCl 5 MG Tablet 10 MG PO ×2 (06:35→14:28)
--- NOTE | 2019-05-27 07:56 | NURSING ---
Dressing change completed. Dressing is loose at bottom of dressing, large amount of old dried blood noted before dressing change.
--- NOTE | 2019-05-27 08:30 | PN.CARD_ITS ---
Subjectve: Patient seen and evaluated. Appears to doing well. Tolerated dialysis yesterday Objective: Vital Signs Temp Pulse Resp BP Pulse Ox 98.1 F 93 18 133/52 H 98 05/27/19 04:30 05/27/19 06:57 05/27/19 04:30 05/27/19 04:30 05/27/19 04:30 Oxygen Flow Rate (L/min) 2 Oxygen Delivery Method Nasal Cannula Weight: 186 lb 6 oz Body Mass Index (BMI) 30.5 Finger Stick Blood Glucose 99 Orthostatic Vital Signs Start: 05/26/19 04:15 Freq: q24h Status: Active Protocol: Activity Type Activity Date Activity User E-Sign Co-Sign Detail Recorded Client Recorded Date Recorded By Document 05/27/19 04:30 JN [id number] 05/27/19 05:00 RACIEL 05/27/19 04:30 Orthostatic Vitals Standing -Blood Pressure (90/60-120/80 mm Hg) 162/57 H -Extremity Use Right Arm -Pulse Rate (60-100 beats/min) 85 Sitting -Blood Pressure (90/60-120/80 mm Hg) 142/52 H -Extremity Use Right Arm -Pulse Rate (60-100 beats/min) 76 Lying -Blood Pressure (90/60-120/80 mm Hg) 133/52 H -Extremity Use Right Arm -Pulse Rate (60-100 beats/min) 76 Intake and Output for Last 24 Hours 05/25/19 05/26/19 05/27/19 23:59 23:59 23:59 Intake Total 1233.64 / 1233.64 1085 / 1085 Output Total 0 / 0 3000 / 3000 0 / 0 Balance 1233.64 / 1233.64 -1915 / -1915 0 / 0 General: Awake, Alert, Oriented x 3 HEENT: PERRL, EOMI, Sclera Non Icteric Neck: Supple, Good ROM, No Lymph Node Enlargement Lungs: Clear to auscultation Cardiovascular: Regular Rhythm, Normal S1, Normal S2, No Murmurs, No Rubs, No Gallops Vascular: No Carotid Bruits, Normal Femoral Pulses, Normal Radial Pulses, Normal Dorsalis Pedal Pulse, Normal Posterior Tibial Pulses Abdomen: Bowel Sounds Present, Soft, Non Tender, No HSM, No Organomegaly Extremities: No Cyanosis, No Clubbing, No edema Musculoskeletal: No Erythema Skin: No Rashes Lymphatic: No Lymph Node Enlargement Neurological: No Focal Motor or Sensory Deficit Rhythm: EKG: ECHO: Stress Test: Cardiac Cath: PCI: CT Surgery: Holter monitor: EPS: PPM: CXR: Chest CT Scan: Medical Necessity - Tobacco Use Smoking Status: Former smoker Tobacco Use: Cigarettes Assessment/Plan 1. Chest pain * Patient presents with chest discomfort the etiology of which is unclear. I do not think that this is coronary in origin. It has been persistent for hours with minimal troponin elevation. This appears to have resolved * Pain improved with a short course of nonsteroidals * Echocardiogram demonstrated preserved ejection fraction with minimal pericardial fluid * 2. Coronary artery disease * Patient has known coronary artery disease in the past with an occluded circumflex artery and disease noted in the right coronary artery which has not been intervened upon. * She was sent to [facility] for further evaluation of the above but I do not have the reports of what was intervened on. * We will attempt to obtain those records * 3. Recurrent hypotension * The etiology of the above is unclear at this particular time. She has been started on her Midodrin to see whether this would help * * 4. Atrial fibrillation * Patient has previous history of atrial fibrillation. Her ventricular response rate is controlled at this time. * I am hesitant to anticoagulate at this particular juncture. * Thank you for allowing me to participate in the care of your patient. Please don't hesitate to call if any issues arise. At this particular time I would not make any further cardiac recommendations. Stable from my standpoint for outpatient follow-up.
[2019-05-27] MEDS: Gabapentin 100 MG Capsule 200 MG PO (08:43)
[2019-05-27] MEDS: Aspirin E.C. 81 MG Tablet PO (08:43)
[2019-05-27] MEDS: SEVELAMER CARBONATE 800 MG TABLET 2400 MG PO ×3 (08:43→17:05)
[2019-05-27] MEDS: Pantoprazole Sodium 40 MG Tablet PO (08:43)
[2019-05-27] MEDS: Clopidogrel Bisulfate 75 MG Tablet PO (08:43)
[2019-05-27] MEDS: Docusate Sodium 100 MG Capsule PO (08:43)
[2019-05-27] MEDS: Heparin Injection (Vial) 5,000 UNIT/ML VIAL 5000 UNIT SC (08:44)
[2019-05-27 08:55] LABS: Bedside Glucose 149 mg/dL (70-110)
--- NOTE | 2019-05-27 09:17 | PN.RENAL_ITS ---
Patient Problems: Active and Suspected Problems (Last Reviewed 05/23/19 @ 04:42 by Buddy Olson MD) Chest pain (Acute) Subjective: Transferred to floor, HD yesterday with 3L fluid removal. CP resolved. BP stable. - Physical Exam Vitals/I&O's: Vital Signs Temp Pulse Resp BP Pulse Ox 97.7 F L 77 16 136/58 H 97 05/27/19 08:46 05/27/19 08:46 05/27/19 08:46 05/27/19 08:46 05/27/19 08:46 Oxygen Flow Rate (L/min) 2 Oxygen Delivery Method Room Air Weight: 84.538 kg Body Mass Index (BMI) 30.5 Finger Stick Blood Glucose 99 Orthostatic Vital Signs Start: 05/26/19 04:15 Freq: q24h Status: Active Protocol: Activity Type Activity Date Activity User E-Sign Co-Sign Detail Recorded Client Recorded Date Recorded By Document 05/27/19 04:30 [facility] [id number] 05/27/19 05:00 [facility] 05/27/19 04:30 Orthostatic Vitals Standing -Blood Pressure (90/60-120/80 mm Hg) 162/57 H -Extremity Use Right Arm -Pulse Rate (60-100 beats/min) 85 Sitting -Blood Pressure (90/60-120/80 mm Hg) 142/52 H -Extremity Use Right Arm -Pulse Rate (60-100 beats/min) 76 Lying -Blood Pressure (90/60-120/80 mm Hg) 133/52 H -Extremity Use Right Arm -Pulse Rate (60-100 beats/min) 76 Intake and Output for Last 24 Hours 05/25/19 05/26/19 05/27/19 23:59 23:59 23:59 Intake Total 1233.64 / 1233.64 1085 / 1085 Output Total 0 / 0 3000 / 3000 0 / 0 Balance 1233.64 / 1233.64 -1915 / -1915 0 / 0 General: Alert, Oriented x3, Cooperative, No apparent distress Lungs: Clear to auscultation Cardiovascular: Regular rate, Murmur Abdomen: Bowel Sounds Present, Soft, Non Tender, Distended Extremities: No edema Psych/Mental Status: Normal Affect, Appropriate, Alert and oriented to time, place, person, mood and affect Microbiology Past 72 Hours 05/24/19 15:00 Blood Culture (Wb) - Anticubital Right Blood Culture - Preliminary No growth in 48 hours. 05/24/19 15:00 Blood Culture (Wb) - Port Blood Culture - Preliminary No growth in 48 hours. Laboratory Results 05/26/19 12:17: POC Glucose 129 H 05/26/19 16:30: POC Glucose 160 H 05/26/19 21:59: POC Glucose 178 H 05/27/19 08:29: POC Glucose 149 H Current Medications Acetaminophen (Tylenol) 650 mg PO Q6H PRN PRN PRN Reason: Pain Score 1-3/Temp > 100.7 F Last Admin: 05/25/19 09:34 Dose: 650 mg Documented by: Aspirin (Ecotrin) 81 mg PO DAILY@0800 [facility] Last Admin: 05/27/19 08:43 Dose: 81 mg Documented by: Atorvastatin Calcium (Lipitor) 80 mg PO QHS [facility] Last Admin: 05/26/19 22:01 Dose: 80 mg Documented by: Cholecalciferol (Vitamin D) 5,000 unit PO MoWeFr@1000 [facility] Last Admin: 05/26/19 09:20 Dose: 5,000 unit Documented by: Clopidogrel Bisulfate (Plavix) 75 mg PO DAILY [facility] Last Admin: 05/27/19 08:43 Dose: 75 mg Documented by: Docusate Sodium (Colace) 100 mg PO BID [facility] Last Admin: 05/27/19 08:43 Dose: 100 mg Documented by: Gabapentin (Neurontin) 200 mg PO BID [facility] Last Admin: 05/27/19 08:43 Dose: 200 mg Documented by: Glucagon () 1 mg IM .X1 PRN PRN Reason: Hypoglycemia Heparin Sodium (Porcine) (Heparin Na) 5,000 unit SC Q12 [facility] Last Admin: 05/27/19 08:44 Dose: 5,000 unit Documented by: Dextrose (Dextrose 10%-Water) 250 mls @ 999 mls/hr IV .Q16M PRN; Protocol PRN Reason: HYPOGLYCEMIA Insulin Human Lispro (Humalog Kwikpen (Bkc)) 0 unit SC TIDAC [facility]; Protocol Last Admin: 05/27/19 08:30 Dose: Not Given Documented by: Lactulose (Chronulac, Cephulac) 40 gm PO Q12H PRN PRN PRN Reason: Constipation Last Admin: 05/26/19 15:02 Dose: 40 gm Documented by: Metoclopramide HCl (Reglan) 5 mg IV Q6H PRN PRN PRN Reason: NAUSEA Last Admin: 05/27/19 06:05 Dose: 5 mg Documented by: Midodrine (Proamatine) 10 mg PO TID [facility] Last Admin: 05/27/19 06:35 Dose: 10 mg Documented by: Pantoprazole Sodium (Protonix) 40 mg PO DAILY [facility] Last Admin: 05/27/19 08:43 Dose: 40 mg Documented by: Sevelamer Carbonate (Renvela) 2,400 mg PO TIDCM [facility] Last Admin: 05/27/19 08:43 Dose: 2,400 mg Documented by: Sodium Chloride () 10 - 40 ml IV UD PRN PRN Reason: SALINE FLUSH Last Admin: 05/27/19 06:05 Dose: 10 ml Documented by: Sodium Chloride () 10 - 40 ml IV UD PRN PRN Reason: Multilumen/Alcantara Flush Sodium Chloride (0.9% Nacl (Sterile) Posiflush) 10 - 40 ml IV UD PRN PRN Reason: Port access or dressing change Medical Necessity - Tobacco Use Smoking Status: Former smoker Tobacco Use: Cigarettes Assessment/Plan All Active Problems (Last Reviewed 05/23/19 @ 04:42 by Buddy Olson MD) Chest pain (Acute) 1. ESRD hemodialysis Sunday, Sunday, Sunday. 2. Atypical chest pain h Chest pain resolved 3. DM type II primary service management 4. Hypotension likely due to liver cirrhosis. Continue midodrine 3 times a day. 5. History of GI bleed with anemia hemoglobin stable. 6. Liver cirrhosis with ascites requiring frequent paracentesis. Last paracentesis May 22.
--- NOTE | 2019-05-27 11:26 | PCM.TXEXTCAR ---
- Diet 05/23/19 11:00 Diet: Cardiac: Calorie-Controlled , renal diet. Diet Comments: Low phosphate and low potassium. How many daily calories?: 1800 calorie - Routine Orders/Code Status Code Status: Full Code - Wound(s) abdomen Wound Type: Puncture left forearm Wound Type: Skin Tear - Suggestions for Active Care Change Position every (hours): 3 Hours to sit in a chair: 2 Times a day to sit in chair: 3 - Therapies Weight Bearing: Weight bearing as tolerated Physical Therapy: Eval and Treat Occupational Therapy: Eval and Treat - Allergies/Procedures Done in Hospital Allergies/Adverse Reactions: Allergies lisinopril Allergy (Severe, Verified 05/22/19 22:57) Angioedema nebivolol HCl [From Bystolic] Adverse Reaction (Severe, Verified 05/22/19 22:57) bradycardia BRADYCARDIA - Type of Care/Length of Stay Estimated LOS: Convalescent Care Less Than 30 days Type of Care Needed: Skilled Rehab Potential: Fair Prognosis: Fair - Additional Orders/Day of Discharge Additional Orders: Close monitoring of her blood pressure. H&P will serve as current which was dated: 05/23/19 Day of Discharge: 05/27/19 - Dietary and Speech Recommendations Dietitian Recommendations/Changes: Will continue to provide Nepro CHO Steady with meals for increased nutrition if consumed. Recommend cardiac, CHO controlled diet w/ potassium and phosphate restrictions as needed (do not appear indicated at this time). - Follow Up Care Primary Care Physician: Walter Chao MD [Primary Care Provider] - Please follow up with your Primary Care Physician in: 1 WEEK. Please Follow Up With: Anuradha Crawley DO When: 7-10 days. Please Follow Up With: Micky Dixon MD When: Please call his office.
--- NOTE | 2019-05-27 11:46 | PHA.DC.MR ---
Pharmacy Service has performed discharge medication reconciliation for this patient. Home Medications Cholecalciferol (Vitamin D3) [Vitamin D3] 5,000 unit PO MOWEFR 07/27/17 pantoprazole 40 mg tablet,delayed release 40 mg PO DAILY 08/21/17 Atorvastatin Calcium [Lipitor] 80 mg PO QHS 12/26/17 Insulin Glargine [Lantus SoloStar Pen] 11 units SUBCUT QHS 05/31/18 Docusate Sodium [Colace] 100 mg PO BID 02/13/19 Ropinirole HCl [Requip] 0.5 mg PO QHS 02/13/19 Sevelamer Carbonate 2,400 mg PO TIDCM 02/13/19 Acetaminophen [Tylenol Tablet] 650 mg PO Q6H PRN PRN tab 05/15/19 Aspirin E.C. [Ecotrin] 81 mg PO DAILY@0800 #1 tab 05/15/19 Clopidogrel Bisulfate [Plavix] 75 mg PO DAILY #1 tab 05/15/19 Gabapentin [Neurontin] 200 mg PO BID 5 Days #10 cap 05/15/19 Albuterol Sulfate 2.5 mg IH Q4H PRN PRN 05/23/19 B Complex W-C No.20/Folic Acid [Virt-Caps Softgel] 1 mg PO MOWEFR 05/23/19 Bisacodyl [Laxative Suppository] 10 mg KS DAILY PRN PRN 05/23/19 Insulin Lispro [Insulin Lispro Kwikpen U-100] 0 unit SQ TID 05/23/19 Lactulose [Chronulac] 40 gm PO Q12H PRN PRN 05/23/19 Melatonin 5 mg PO QHS 05/23/19 Nitroglycerin 0.4 mg SL Q10M PRN PRN 05/23/19 Ondansetron HCl [Zofran] 4 mg PO Q6H PRN PRN 05/23/19 Oxycodone HCl 5 mg PO Q6H PRN PRN 05/23/19 Midodrine HCl [Proamatine] 10 mg PO BID #90 tab 05/27/19 The patient's discharge medication list was reviewed for discrepancies and discrepancies were resolved.
[2019-05-27] MEDS: Insulin Lispro 100 UNIT/ML INSULN.PEN SC (11:48)
[2019-05-27 12:01] LABS: Bedside Glucose 166 mg/dL (70-110)
--- NOTE | 2019-05-27 13:40 | PN_ITS ---
Patient Problems: Active and Suspected Problems (Last Reviewed 05/23/19 @ 04:42 by Buddy Olson MD) Chest pain (Acute) Subjective: Chief complaint: Follow-up after admission for shock probably hypovolemic and atypical chest pain. Patient seen and examined today. No acute events overnight. She denied any more chest pain. Denied shortness of breath. She is feeling better. Blood pressure improved, other vital signs are stable. - Physical Exam Vitals/I&O's: Vital Signs Temp Pulse Resp BP Pulse Ox 97.7 F L 77 16 136/58 H 97 05/27/19 08:46 05/27/19 08:46 05/27/19 08:46 05/27/19 08:46 05/27/19 08:46 Oxygen Flow Rate (L/min) 2 Oxygen Delivery Method Room Air Weight: 186 lb 6 oz Body Mass Index (BMI) 30.5 Finger Stick Blood Glucose 99 Orthostatic Vital Signs Start: 05/26/19 04:15 Freq: q24h Status: Active Protocol: Activity Type Activity Date Activity User E-Sign Co-Sign Detail Recorded Client Recorded Date Recorded By Document 05/27/19 04:30 [facility] [id number] 05/27/19 05:00 JNG 05/27/19 04:30 Orthostatic Vitals Standing -Blood Pressure (90/60-120/80) 162/57 H -Extremity Use Right Arm -Pulse Rate (60-100) 85 Sitting -Blood Pressure (90/60-120/80) 142/52 H -Extremity Use Right Arm -Pulse Rate (60-100) 76 Lying -Blood Pressure (90/60-120/80) 133/52 H -Extremity Use Right Arm -Pulse Rate (60-100) 76 Intake and Output for Last 24 Hours 05/25/19 05/26/19 05/27/19 23:59 23:59 23:59 Intake Total 1233.64 / 1233.64 1085 / 1085 240 / 240 Output Total 0 / 0 3000 / 3000 0 / 0 Balance 1233.64 / 1233.64 -1915 / -1915 240 / 240 General: Alert, Oriented x3, Cooperative, No apparent distress HEENT: Atraumatic, PERRLA, EOMI, Normocephalic Oral: Moist Mucosa, No Gingival or Mucosal Lesions/ Ulcerations Neck: Supple, No JVD, Negative Carotid Bruits, Trachea Midline, Thyroid Normal Size and Texture Lungs: Clear to auscultation, Normal air movement, No rhonchi, No wheeze, No rales, Diminished Cardiovascular: Regular rate, Regular Rhythm, Normal S1, Normal S2, PMI Normal Abdomen: Bowel Sounds Present, Soft, Non Tender, Non-Distended, No Hepato- splenomegaly Extremities: No clubbing, No cyanosis, Edema Skin: No rashes, No breakdown Lymphatic: No Cervical, Supraclavicular, or Inguinal Adenopathy Neurological: Cranial nerves II-XII grossly intact, Neuro grossly intact Psych/Mental Status: Normal Affect, Appropriate, Alert and oriented to time, place, person, mood and affect Microbiology Past 72 Hours 05/24/19 15:00 Blood Culture (Wb) - Anticubital Right Blood Culture - Preliminary No growth in 48 hours. 05/24/19 15:00 Blood Culture (Wb) - Port Blood Culture - Preliminary No growth in 48 hours. Laboratory Results 05/26/19 16:30: POC Glucose 160 H 05/26/19 21:59: POC Glucose 178 H 05/27/19 08:29: POC Glucose 149 H 05/27/19 11:39: POC Glucose 166 H Current Medications Acetaminophen (Tylenol) 650 mg PO Q6H PRN PRN PRN Reason: Pain Score 1-3/Temp > 100.7 F Last Admin: 05/25/19 09:34 Dose: 650 mg Documented by: Aspirin (Ecotrin) 81 mg PO DAILY@0800 [facility] Last Admin: 05/27/19 08:43 Dose: 81 mg Documented by: Atorvastatin Calcium (Lipitor) 80 mg PO QHS [facility] Last Admin: 05/26/19 22:01 Dose: 80 mg Documented by: Cholecalciferol (Vitamin D) 5,000 unit PO MoWeFr@1000 [facility] Last Admin: 05/26/19 09:20 Dose: 5,000 unit Documented by: Clopidogrel Bisulfate (Plavix) 75 mg PO DAILY [facility] Last Admin: 05/27/19 08:43 Dose: 75 mg Documented by: Docusate Sodium (Colace) 100 mg PO BID [facility] Last Admin: 05/27/19 08:43 Dose: 100 mg Documented by: Gabapentin (Neurontin) 200 mg PO BID [facility] Last Admin: 05/27/19 08:43 Dose: 200 mg Documented by: Glucagon () 1 mg IM .X1 PRN PRN Reason: Hypoglycemia Heparin Sodium (Porcine) (Heparin Na) 5,000 unit SC Q12 [facility] Last Admin: 05/27/19 08:44 Dose: 5,000 unit Documented by: Dextrose (Dextrose 10%-Water) 250 mls @ 999 mls/hr IV .Q16M PRN; Protocol PRN Reason: HYPOGLYCEMIA Insulin Human Lispro (Humalog Kwikpen (Bkc)) 0 unit SC TIDAC [facility]; Protocol Last Admin: 05/27/19 11:48 Dose: 1 unit Documented by: Lactulose (Chronulac, Cephulac) 40 gm PO Q12H PRN PRN PRN Reason: Constipation Last Admin: 05/26/19 15:02 Dose: 40 gm Documented by: Metoclopramide HCl (Reglan) 5 mg IV Q6H PRN PRN PRN Reason: NAUSEA Last Admin: 05/27/19 06:05 Dose: 5 mg Documented by: Midodrine (Proamatine) 10 mg PO TID [facility] Last Admin: 05/27/19 06:35 Dose: 10 mg Documented by: Pantoprazole Sodium (Protonix) 40 mg PO DAILY [facility] Last Admin: 05/27/19 08:43 Dose: 40 mg Documented by: Sevelamer Carbonate (Renvela) 2,400 mg PO TIDCM [facility] Last Admin: 05/27/19 11:49 Dose: 2,400 mg Documented by: Sodium Chloride () 10 - 40 ml IV UD PRN PRN Reason: SALINE FLUSH Last Admin: 05/27/19 06:05 Dose: 10 ml Documented by: Sodium Chloride () 10 - 40 ml IV UD PRN PRN Reason: Multilumen/Alcantara Flush Sodium Chloride (0.9% Nacl (Sterile) Posiflush) 10 - 40 ml IV UD PRN PRN Reason: Port access or dressing change Medical Necessity - Tobacco Use Smoking Status: Former smoker Tobacco Use: Cigarettes Assessment/Plan All Active Problems (Last Reviewed 05/23/19 @ 04:42 by Buddy Olson MD) Chest pain (Acute) This is a 74 years old female patient presented to the emergency room because of chest pain, found to have low blood pressure, was admitted to the ICU because of what seemed to be hypovolemic shock. #1 chest pain/suspected pericarditis: Treated with Indocin, discontinued . Patient denies any more chest pain. EKG revealed no acute acute changes. Troponin was negative. 2D echocardiogram revealed normal LV size and function, ejection fraction 55%, small pericardial effusion. No further work-up or treatment recommended by cardiology. #2 hypovolemic shock: Attributed to volume depletion after hemodialysis and paracentesis. Blood pressure stabilized, she has been off vasopressors for more than 48 hours.. Blood pressure stabilized, on midodrine. She has been afebrile, heart rate stable, blood pressure stable. Plan to taper midodrine down to 10 mg p.o. twice daily and to be discharged on this dose. #3 ESRD on dialysis: On dialysis on Mondays, Wednesdays and Fridays. Nephrology on the case, received hemodialysis yesterday. #4 liver cirrhosis: Status post paracentesis which was done the day before admission, 3.3 L of ascitic fluid drained. Patient is on lactulose only. No evidence of hepatic encephalopathy, stable. #5 CAD status post stents: Stable, continue aspirin, statins, Plavix. After discussion with nephrology, nitrate and losartan will be discontinued upon discharge as well. #6 type 2 diabetes mellitus: Blood sugar stable, continue Humalog insulin 3 times daily sliding scale. #7 hyperlipidemia: Continue statins. #8 GERD: Continue Protonix. #9 chronic anemia: Secondary to anemia of chronic disease, hemoglobin and hematocrit are stable. #10 DVT prophylaxis: Subcu heparin. This note was generated with [employer] dictation software. It may contain incorrect words, spelling, and punctuation that were not noted in checking the note before signing. Code Visit Inpatient E&M: 15985 Subs Hosp L2
--- NOTE | 2019-05-27 13:44 | PCM.DC.SUM ---
Discharge Date and Diagnosis Date of Admission: 05/23/19 Date of Discharge: 05/27/19 - Primary Discharge Diagnosis Active and Suspected Problems (Last Reviewed 05/23/19 @ 04:42 by Buddy Olson MD) #1 hypovolemic shock, attributed to volume depletion secondary to hemodialysis and paracentesis. #2 atypical chest pain/suspected pericarditis. #3 ESRD on hemodialysis. - Secondary Discharge Diagnosis Chronic Problems (Last Reviewed 05/23/19 @ 04:42 by Buddy Olson MD) History of GI bleed (Chronic) History of non-ST elevation myocardial infarction (NSTEMI) (Chronic 07/05/16) Atherosclerotic heart disease of [place] coronary artery without angina pectoris (Chronic) Stented coronary artery (Chronic) Cutting Balloon and TAMI (3.0X18 mm Xience) Proximal LAD 04/18/2012; Rotational atherectomy to proximal, id and distal RCA with two overlapping 4.0 X 38 Synergy TAMI ([facility] main) Ascites (Chronic) Pancytopenia (Chronic) Other specified peripheral vascular diseases (Chronic) Afib (Chronic) Congenital coronary artery anomaly (Chronic) Bradycardia (Chronic) Diabetes mellitus, type II (Chronic) Hyperlipidemia (Chronic) Hypothyroidism (Chronic) Anemia in chronic kidney disease (Chronic) Hypertension (Chronic) End stage renal disease on dialysis (Chronic) Hospital Course and Treatment Imaging Results: Clinical Impression(s) from Imaging Studies Chest X-Ray 05/22/19 23:26 IMPRESSION: 1. Fracture of the left clavicle. 2. Bilateral basilar airspace disease and/or atelectasis. Electronically Signed: Adela Syed MD at 0:13 EST , Service support , Chest X-Ray 05/23/19 04:34 IMPRESSION: 1. Cardiomegaly with pulmonary congestion. 2. Appropriate positioning of right-sided central venous catheter. Electronically Signed: Adela Syed MD at 6:52 EST , Service support , Chest CTA 05/23/19 04:37 IMPRESSION: Extensive anasarca. The aorta shows no focal aneurysms or dissection Ascitic fluid around the liver and spleen and in the upper pelvis. Minimal congestion with hepatomegaly. Atrophic kidneys. No hydronephrosis. No renal calculi. No intestinal obstruction. Degenerative changes of the lumbosacral spine and facet joints Electronically Signed: Jama Anderson MD at 7:59 EST Tel , Service support , Abdomen CTA 05/23/19 04:49 IMPRESSION: Extensive anasarca. The aorta shows no focal aneurysms or dissection Ascitic fluid around the liver and spleen and in the upper pelvis. Minimal congestion with hepatomegaly. Atrophic kidneys. No hydronephrosis. No renal calculi. No intestinal obstruction. Degenerative changes of the lumbosacral spine and facet joints Electronically Signed: Jama Anderson MD at 7:59 EST Tel , Service support , Dr. Dixon, cardiology. Dr. Wei/Dr. Reinoso, critical care. Dr. Crawley, nephrology. Operations: None, - Procedures: Dialysis, EKG Summary of Care Provided: Patient seen and examined on the day of discharge and appeared to be stable to be discharged home. She denies any symptoms. Her blood pressure stabilized, other vital signs are stable. This is a 74 years old female patient presented to the emergency room because of chest pain, found to have low blood pressure, was admitted to the ICU because of what seemed to be hypovolemic shock. #1 chest pain/suspected pericarditis: Treated with Indocin. Her troponin was negative. EKG revealed no acute ischemic changes. Cardiology consulted and recommended to keep treatment with NSAIDs. Patient received Indocin for 3 days. Her chest pain improved. 2D echocardiogram revealed normal LV size and function, ejection fraction 55%, small pericardial effusion. No treatment given for this condition upon discharge. #2 hypovolemic shock: Attributed to volume depletion after hemodialysis and paracentesis. Patient was admitted to intensive care unit and she received IV vasopressors. She was started on midodrine as well. Her blood pressure stabilized and she was transferred out of ICU. #3 ESRD on dialysis: Nephrology consulted and patient received hemodialysis on this hospital stay. #4 liver cirrhosis: Status post paracentesis which was done the day before admission, 3.3 L of ascitic fluid drained. This was stable, continued on lactulose. #5 CAD status post stents: Stable, continued on aspirin, statins, Plavix. #6 type 2 diabetes mellitus: Blood sugar was stable stable. Patient discharged to alf facility in a stable medical condition, losartan and nitrates discontinued according to nephrology and cardiology, discharged on midodrine 10 mg p.o. twice daily, continued with her other previous home medications without any changes, plan to follow-up with nephrology in 7 to 10 days, follow-up with PCP in 1 week and follow-up with cardiology according to Dr. Dixon. This note was generated with [employer] dictation software. It may contain incorrect words, spelling, and punctuation that were not noted in checking the note before signing. - Physical Exam Vitals/I&O's: Vital Signs Temp Pulse Resp BP Pulse Ox 97.7 F L 77 16 136/58 H 97 05/27/19 08:46 05/27/19 08:46 05/27/19 08:46 05/27/19 08:46 05/27/19 08:46 Oxygen Flow Rate (L/min) 2 Oxygen Delivery Method Room Air Weight: 186 lb 6 oz Body Mass Index (BMI) 30.5 Finger Stick Blood Glucose 99 Orthostatic Vital Signs Start: 05/26/19 04:15 Freq: q24h Status: Active Protocol: Activity Type Activity Date Activity User E-Sign Co-Sign Detail Recorded Client Recorded Date Recorded By Document 05/27/19 04:30 [facility] [id number] 05/27/19 05:00 [facility] 05/27/19 04:30 Orthostatic Vitals Standing -Blood Pressure (90/60-120/80) 162/57 H -Extremity Use Right Arm -Pulse Rate (60-100) 85 Sitting -Blood Pressure (90/60-120/80) 142/52 H -Extremity Use Right Arm -Pulse Rate (60-100) 76 Lying -Blood Pressure (90/60-120/80) 133/52 H -Extremity Use Right Arm -Pulse Rate (60-100) 76 Intake and Output for Last 24 Hours 05/25/19 05/26/19 05/27/19 23:59 23:59 23:59 Intake Total 1233.64 / 1233.64 1085 / 1085 240 / 240 Output Total 0 / 0 3000 / 3000 0 / 0 Balance 1233.64 / 1233.64 -1915 / -1915 240 / 240 General: Alert, Oriented x3, Cooperative, No apparent distress HEENT: Atraumatic, PERRLA, EOMI, Normocephalic Oral: Moist Mucosa, No Gingival or Mucosal Lesions/ Ulcerations Neck: Supple, No JVD, Negative Carotid Bruits, Trachea Midline, Thyroid Normal Size and Texture Lungs: Clear to auscultation, Normal air movement, No rhonchi, No wheeze, No rales, Diminished Cardiovascular: Regular rate, Regular Rhythm, Normal S1, Normal S2, PMI Normal Abdomen: Bowel Sounds Present, Soft, Non Tender, Non-Distended, No Hepato-splenomegaly Extremities: No clubbing, No cyanosis, Edema Skin: No rashes, No breakdown Lymphatic: No Cervical, Supraclavicular, or Inguinal Adenopathy Neurological: Cranial nerves II-XII grossly intact, Neuro grossly intact Psych/Mental Status: Normal Affect, Appropriate Microbiology Past 72 Hours 05/24/19 15:00 Blood Culture (Wb) - Anticubital Right Blood Culture - Preliminary No growth in 48 hours. 05/24/19 15:00 Blood Culture (Wb) - Port Blood Culture - Preliminary No growth in 48 hours. Laboratory Results 05/26/19 16:30: POC Glucose 160 H 05/26/19 21:59: POC Glucose 178 H 05/27/19 08:29: POC Glucose 149 H 05/27/19 11:39: POC Glucose 166 H Current Medications Acetaminophen (Tylenol) 650 mg PO Q6H PRN PRN PRN Reason: Pain Score 1-3/Temp > 100.7 F Last Admin: 05/25/19 09:34 Dose: 650 mg Documented by: Aspirin (Ecotrin) 81 mg PO DAILY@0800 [facility] Last Admin: 05/27/19 08:43 Dose: 81 mg Documented by: Atorvastatin Calcium (Lipitor) 80 mg PO QHS [facility] Last Admin: 05/26/19 22:01 Dose: 80 mg Documented by: Cholecalciferol (Vitamin D) 5,000 unit PO MoWeFr@1000 [facility] Last Admin: 05/26/19 09:20 Dose: 5,000 unit Documented by: Clopidogrel Bisulfate (Plavix) 75 mg PO DAILY [facility] Last Admin: 05/27/19 08:43 Dose: 75 mg Documented by: Docusate Sodium (Colace) 100 mg PO BID [facility] Last Admin: 05/27/19 08:43 Dose: 100 mg Documented by: Gabapentin (Neurontin) 200 mg PO BID [facility] Last Admin: 05/27/19 08:43 Dose: 200 mg Documented by: Glucagon () 1 mg IM .X1 PRN PRN Reason: Hypoglycemia Heparin Sodium (Porcine) (Heparin Na) 5,000 unit SC Q12 [facility] Last Admin: 05/27/19 08:44 Dose: 5,000 unit Documented by: Dextrose (Dextrose 10%-Water) 250 mls @ 999 mls/hr IV .Q16M PRN; Protocol PRN Reason: HYPOGLYCEMIA Insulin Human Lispro (Humalog Kwikpen (Bkc)) 0 unit SC TIDAC [facility]; Protocol Last Admin: 05/27/19 11:48 Dose: 1 unit Documented by: Lactulose (Chronulac, Cephulac) 40 gm PO Q12H PRN PRN PRN Reason: Constipation Last Admin: 05/26/19 15:02 Dose: 40 gm Documented by: Metoclopramide HCl (Reglan) 5 mg IV Q6H PRN PRN PRN Reason: NAUSEA Last Admin: 05/27/19 06:05 Dose: 5 mg Documented by: Midodrine (Proamatine) 10 mg PO TID [facility] Last Admin: 05/27/19 06:35 Dose: 10 mg Documented by: Pantoprazole Sodium (Protonix) 40 mg PO DAILY [facility] Last Admin: 05/27/19 08:43 Dose: 40 mg Documented by: Sevelamer Carbonate (Renvela) 2,400 mg PO TIDCM [facility] Last Admin: 05/27/19 11:49 Dose: 2,400 mg Documented by: Sodium Chloride () 10 - 40 ml IV UD PRN PRN Reason: SALINE FLUSH Last Admin: 05/27/19 06:05 Dose: 10 ml Documented by: Sodium Chloride () 10 - 40 ml IV UD PRN PRN Reason: Multilumen/Alcantara Flush Sodium Chloride (0.9% Nacl (Sterile) Posiflush) 10 - 40 ml IV UD PRN PRN Reason: Port access or dressing change Home Medications: Medications to take at Discharge Cholecalciferol (Vitamin D3) [Vitamin D3] 5,000 unit PO MOWEFR 07/27/17 pantoprazole 40 mg tablet,delayed release 40 mg PO DAILY 08/21/17 Atorvastatin Calcium [Lipitor] 80 mg PO QHS 12/26/17 Insulin Glargine [Lantus SoloStar Pen] 11 units SUBCUT QHS 05/31/18 Docusate Sodium [Colace] 100 mg PO BID 02/13/19 Ropinirole HCl [Requip] 0.5 mg PO QHS 02/13/19 Sevelamer Carbonate 2,400 mg PO TIDCM 02/13/19 Acetaminophen [Tylenol Tablet] 650 mg PO Q6H PRN PRN tab 05/15/19 Aspirin E.C. [Ecotrin] 81 mg PO DAILY@0800 #1 tab 05/15/19 Clopidogrel Bisulfate [Plavix] 75 mg PO DAILY #1 tab 05/15/19 Gabapentin [Neurontin] 200 mg PO BID 5 Days #10 cap 05/15/19 Albuterol Sulfate 2.5 mg IH Q4H PRN PRN 05/23/19 B Complex W-C No.20/Folic Acid [Virt-Caps Softgel] 1 mg PO MOWEFR 05/23/19 Bisacodyl [Laxative Suppository] 10 mg NH DAILY PRN PRN 05/23/19 Insulin Lispro [Insulin Lispro Kwikpen U-100] 0 unit SQ TID 05/23/19 Lactulose [Chronulac] 40 gm PO Q12H PRN PRN 05/23/19 Melatonin 5 mg PO QHS 05/23/19 Nitroglycerin 0.4 mg SL Q10M PRN PRN 05/23/19 Ondansetron HCl [Zofran] 4 mg PO Q6H PRN PRN 05/23/19 Oxycodone HCl 5 mg PO Q6H PRN PRN 05/23/19 Midodrine HCl [Proamatine] 10 mg PO BID #90 tab 05/27/19 Following Prescrptions Were Given to Patient: Midodrine HCl [Proamatine] 10 mg PO BID #90 tab Prescription Printed Primary Care Physician: Walter Chao MD [Primary Care Provider] - Please follow up with your Primary Care Physician in: 1 WEEK. Please Follow Up With: Anuradha Crawley DO When: 7-10 days. Please Follow Up With: Micky Dixon MD When: Please call his office. Patient Instructions: CHEST PAIN, Uncertain Cause Disposition: Nursing Home facility Minutes spent on discharge:: 34 Patient Condition:: Stable Medical Necessity - Tobacco Use Smoking Status: Former smoker Tobacco Use: Cigarettes Meaningful Use Info Meaningful Use Diagnoses (Choose all that apply): None applicable Code Visit Inpatient E&M: 94905 Disch Hosp
--- NOTE | 2019-05-27 15:10 | PCM.PN.PUL ---
Patient Problems: Active and Suspected Problems (Last Reviewed 05/23/19 @ 04:42 by Buddy Olson MD) Chest pain (Acute) Subjective: Patient did well overnight. No acute issues are reported. Patient states she feels well enough to go home. Patient does have supplemental oxygen, but states it is not required at all times. - Physical Exam Vitals/I&O's: Vital Signs Temp Pulse Resp BP Pulse Ox 36.2 C L 69 16 129/44 H 96 05/27/19 14:24 05/27/19 14:24 05/27/19 14:24 05/27/19 14:24 05/27/19 14:24 Oxygen Flow Rate (L/min) 2 Oxygen Delivery Method Room Air Weight: 84.538 kg Body Mass Index (BMI) 30.5 Finger Stick Blood Glucose 99 Orthostatic Vital Signs Start: 05/26/19 04:15 Freq: q24h Status: Active Protocol: Activity Type Activity Date Activity User E-Sign Co-Sign Detail Recorded Client Recorded Date Recorded By Document 05/27/19 04:30 [facility] [id number] 05/27/19 05:00 [facility] 05/27/19 04:30 Orthostatic Vitals Standing -Blood Pressure (90/60-120/80) 162/57 H -Extremity Use Right Arm -Pulse Rate (60-100) 85 Sitting -Blood Pressure (90/60-120/80) 142/52 H -Extremity Use Right Arm -Pulse Rate (60-100) 76 Lying -Blood Pressure (90/60-120/80) 133/52 H -Extremity Use Right Arm -Pulse Rate (60-100) 76 Intake and Output for Last 24 Hours 05/25/19 05/26/19 05/27/19 23:59 23:59 23:59 Intake Total 1233.64 / 1233.64 1085 / 1085 240 / 240 Output Total 0 / 0 3000 / 3000 0 / 0 Balance 1233.64 / 1233.64 -1915 / -1915 240 / 240 General: Alert, Oriented x3, Cooperative, No apparent distress, Well developed, Well nourished, - - No conversational dyspnea. Obese. HEENT: Atraumatic, PERRLA, EOMI, Normocephalic, - - No scleral icterus or injection noted Oral: Moist Mucosa, No Gingival or Mucosal Lesions/ Ulcerations Neck: Supple, No JVD, No Nodes, Trachea Midline Lungs: No rhonchi, No wheeze, No rales, Diminished, - - Symmetric expansion. No dullness to percussion. Cardiovascular: Regular rate, Normal S1, Normal S2, Murmur, No rub noted, No Gallop Abdomen: Bowel Sounds Present, Soft, Non Tender, Non-Distended, Obese Extremities: No clubbing, No cyanosis, No edema, Capillary Refill Less than 3 Seconds Skin: No rashes, No breakdown Musculoskeletal: No Tenderness to Palpation of Joints or Extremities Lymphatic: No Cervical, Supraclavicular, or Inguinal Adenopathy Neurological: Cranial nerves II-XII grossly intact, Neuro grossly intact, Motor Exam 5/5 strength throughout Psych/Mental Status: Alert and oriented to time, place, person, mood and affect Microbiology Past 72 Hours 05/24/19 15:00 Blood Culture (Wb) - Anticubital Right Blood Culture - Preliminary No growth in 48 hours. 05/24/19 15:00 Blood Culture (Wb) - Port Blood Culture - Preliminary No growth in 48 hours. Laboratory Results 05/26/19 16:30: POC Glucose 160 H 05/26/19 21:59: POC Glucose 178 H 05/27/19 08:29: POC Glucose 149 H 05/27/19 11:39: POC Glucose 166 H Current Medications Acetaminophen (Tylenol) 650 mg PO Q6H PRN PRN PRN Reason: Pain Score 1-3/Temp > 100.7 F Last Admin: 05/25/19 09:34 Dose: 650 mg Documented by: Aspirin (Ecotrin) 81 mg PO DAILY@0800 [facility] Last Admin: 05/27/19 08:43 Dose: 81 mg Documented by: Atorvastatin Calcium (Lipitor) 80 mg PO QHS [facility] Last Admin: 05/26/19 22:01 Dose: 80 mg Documented by: Cholecalciferol (Vitamin D) 5,000 unit PO MoWeFr@1000 [facility] Last Admin: 05/26/19 09:20 Dose: 5,000 unit Documented by: Clopidogrel Bisulfate (Plavix) 75 mg PO DAILY [facility] Last Admin: 05/27/19 08:43 Dose: 75 mg Documented by: Docusate Sodium (Colace) 100 mg PO BID [facility] Last Admin: 01/07/20 08:43 Dose: 100 mg Documented by: Gabapentin (Neurontin) 200 mg PO BID [facility] Last Admin: 05/27/19 08:43 Dose: 200 mg Documented by: Glucagon () 1 mg IM .X1 PRN PRN Reason: Hypoglycemia Heparin Sodium (Porcine) (Heparin Na) 5,000 unit SC Q12 [facility] Last Admin: 05/27/19 08:44 Dose: 5,000 unit Documented by: Dextrose (Dextrose 10%-Water) 250 mls @ 999 mls/hr IV .Q16M PRN; Protocol PRN Reason: HYPOGLYCEMIA Insulin Human Lispro (Humalog Kwikpen (Bkc)) 0 unit SC TIDAC [facility]; Protocol Last Admin: 05/27/19 11:48 Dose: 1 unit Documented by: Lactulose (Chronulac, Cephulac) 40 gm PO Q12H PRN PRN PRN Reason: Constipation Last Admin: 05/26/19 15:02 Dose: 40 gm Documented by: Metoclopramide HCl (Reglan) 5 mg IV Q6H PRN PRN PRN Reason: NAUSEA Last Admin: 05/27/19 06:05 Dose: 5 mg Documented by: Midodrine (Proamatine) 10 mg PO TID [facility] Last Admin: 05/27/19 14:28 Dose: 10 mg Documented by: Pantoprazole Sodium (Protonix) 40 mg PO DAILY [facility] Last Admin: 05/27/19 08:43 Dose: 40 mg Documented by: Sevelamer Carbonate (Renvela) 2,400 mg PO TIDCM [facility] Last Admin: 05/27/19 11:49 Dose: 2,400 mg Documented by: Sodium Chloride () 10 - 40 ml IV UD PRN PRN Reason: SALINE FLUSH Last Admin: 05/27/19 06:05 Dose: 10 ml Documented by: Sodium Chloride () 10 - 40 ml IV UD PRN PRN Reason: Multilumen/Alcantara Flush Sodium Chloride (0.9% Nacl (Sterile) Posiflush) 10 - 40 ml IV UD PRN PRN Reason: Port access or dressing change Medical Necessity - Tobacco Use Smoking Status: Former smoker Tobacco Use: Cigarettes Assessment/Plan All Active Problems (Last Reviewed 05/23/19 @ 04:42 by Buddy Olson MD) Chest pain (Acute) RECOMMENDATIONS: 1. Okay to wean midodrine to 10 mg twice daily 2. Hemodialysis per nephrology 3. Encourage home evaluation of oxygen saturations 4. Continue 2-3 L/min of supplemental oxygen on a nightly basis, per outpatient regimen 5. Reinitiate basal insulin once patient's p.o. intake is more consistent 6. Okay to discharge from an ICU perspective. No need to follow-up from a pulmonary perspective. IMPRESSIONS: 1. Shock, distributive versus hypovolemic in etiology Patient hemodynamically stable overnight. Patient is to receive hemodialysis yesterday and tolerated well. Cultures have been negative to this point, so doubt infectious etiology. Would recommend avoidance of morphine if possible as this does have some histamine effect and can lead to worsening hypotension. Patient should be continued on midodrine therapy, but this can be weaned to twice daily given patient's current blood pressures. Okay to discharge from a pulmonary/critical care perspective. No outpatient pulmonary follow-up is likely indicated. 2. Atypical chest pain/known history of coronary artery disease Defer management to cardiology, who is currently following. 3. End-stage renal disease on hemodialysis Continue hemodialysis support per nephrology recommendations. 4. Underlying cirrhosis/diabetes mellitus/restless leg syndrome/GERD/hyperlipidemia Complicates care, management, recovery and prognosis. Continue home medications as indicated. Mobilize patient as tolerated. Will discontinue patient's basal insulin as blood sugars have been relatively controlled and p.o. intake is variable. Risk for hypoglycemia is significant at this time. This can be reinitiated once patient's p.o. intake is more consistent. Code Visit Inpatient E&M: 12828 Subs Hosp L2
--- NOTE | 2019-05-27 15:14 | CASEMGMT ---
MARGO called Candelaria at [place] earlier and she spoke with [facility] and is hoping to hear back from them soon with approval. MARGO went back and talked with patient letting her know this information. She is frustrated with insurance. MARGO told her SW will let her know as soon as SW hears something. MARGO called [facility] again and she was busy so MARGO spoke with Lynda. She will check with [employer] and get back to MARGO. Marylou RAMIREZ MSW
--- NOTE | 2019-05-27 16:07 | CASEMGMT ---
Patient was approved to return to [facility]. MARGO let patient know and her was here to take her back. MARGO notified RN and personal secretary. Orders were faxed to [facility]. Plan: d/c to [facility] under skilled level of care. Family transported via private vehicle. Marylou RAMIREZ MSW
[2019-05-27 17:35] LABS: Bedside Glucose 169 mg/dL (70-110)
--- NOTE | 2019-05-27 17:49 | NURSING ---
report called to the DULCE vieira
== END 2019-05-27 18:15 | disposition skilled nursing facility (03) | DRG 314 ==
LOC: ED 05-23 01:29 → PCU 05-23 02:25 → ICU 05-23 13:36 → PCU 05-26 15:37
PROVIDERS: Internal Medicine; Internal Medicine Cardiovascular Disease; Internal Medicine Critical Care Medicine; Admitting Provider Hospitalist; Emergency Provider Emergency Medicine; Family Provider Family Medicine; PCP Family Medicine; Referring Provider Hospitalist; Visit Provider Hospitalist
DX: I31.9 Disease of pericardium, unspecified (principal); J96.01 Acute respiratory failure with hypoxia; I50.33 Acute on chronic diastolic (congestive) heart failure; N18.6 End stage renal disease; R57.1 Hypovolemic shock; E87.1 Hypo-osmolality and hyponatremia; I13.2 Hypertensive heart and chronic kidney disease with heart failure and with stage 5 chronic kidney disease, or end stage renal disease; R18.8 Other ascites; I48.20 Chronic atrial fibrillation, unspecified; Z99.2 Dependence on renal dialysis; E11.42 Type 2 diabetes mellitus with diabetic polyneuropathy; E11.22 Type 2 diabetes mellitus with diabetic chronic kidney disease; K21.9 Gastro-esophageal reflux disease without esophagitis; K74.60 Unspecified cirrhosis of liver; K75.81 Nonalcoholic steatohepatitis (NASH); G47.00 Insomnia, unspecified; I25.10 Atherosclerotic heart disease of native coronary artery without angina pectoris; G25.81 Restless legs syndrome; D63.1 Anemia in chronic kidney disease; Z95.5 Presence of coronary angioplasty implant and graft; I27.20 Pulmonary hypertension, unspecified; I35.0 Nonrheumatic aortic (valve) stenosis; E78.5 Hyperlipidemia, unspecified; Z87.891 Personal history of nicotine dependence; I25.2 Old myocardial infarction; E03.9 Hypothyroidism, unspecified
CPT/HCPCS: 36415; 49083; 71045; 71046; 71275; 74175; 80048; 80076; 82533; 82962; 84439; 84443; 84484; 85025; 85027; 85652; 86140; 87040; 90937; 93005; 93306; 97162; 97166; 97530; 99285; J7030; J7040; J7050; J7120; Q9967; A4216; C1751; G0257

== ENCOUNTER → 2019-05-29 14:19 | Outpatient (CLI) | payer MEDICARE, SELFPAY ==
[2018-06-11 11:00] VITALS: BMI 27.1
[2019-05-13 12:40] VITALS: BMI 37.1
[2019-05-23 10:52] VITALS: BMI 30.5
--- NOTE | 2019-05-29 14:22 | US_ITS ---
PROCEDURE: Ultrasound guided paracentesis. DATE OF EXAMINATION: May 29, 2019. INDICATION: Female, 74 years old. Ascites. PHYSICIAN: Eric Mckay M.D. TECHNIQUE: The risks, benefits, and alternatives to the procedure were explained to the patient. The specific risks of bleeding, infection, and damage to bowel were detailed and accepted. Witnessed informed consent was obtained. The abdomen was ultrasonographically surveyed. An appropriate pocket of fluid was identified at the right lower quadrant. The skin were cleaned and prepped in the usual sterile fashion. Using ultrasound guidance, the peritoneal cavity was accessed with a 5-Chinese paracentesis needle/catheter system. The trocar was removed. A total of 2650 ml of ron-colored fluid were removed from the peritoneal cavity. The catheter was removed and a sterile dressing was applied. The procedure was well tolerated. US/Paracentesis with US IMPRESSION: Ultrasound guided paracentesis. Electronically Signed: Eric Mckay, at 15:52 EST , Service support ,
[2019-05-29 14:52] VITALS: BP 136/54; BP 142/57; PULSE 75; PULSE 78; RESP 16; O2SAT 97; O2SAT 98
== END ==
PROVIDERS: Family Provider Family Medicine; PCP Family Medicine; Referring Provider Family Medicine; Visit Provider Family Medicine
DX: R18.8 Other ascites (principal)
CPT/HCPCS: 49083

== ENCOUNTER → 2019-06-05 14:19 | Outpatient (CLI) | payer MEDICARE, SELFPAY ==
[2018-06-11 11:00] VITALS: BMI 27.1
[2019-05-13 12:40] VITALS: BMI 37.1
[2019-05-23 10:52] VITALS: BMI 30.5
--- NOTE | 2019-06-05 14:24 | US_ITS ---
PROCEDURE: Ultrasound guided paracentesis. DATE OF EXAMINATION: June 05, 2019. INDICATION: Female, 74 years old. Ascites. PHYSICIAN: Eric Mckay M.D. TECHNIQUE: The risks, benefits, and alternatives to the procedure were explained to the patient. The specific risks of bleeding, infection, and damage to bowel were detailed and accepted. Witnessed informed consent was obtained. The abdomen was ultrasonographically surveyed. An appropriate pocket of fluid was identified at the right lower quadrant. The skin were cleaned and prepped in the usual sterile fashion. Using ultrasound guidance, the peritoneal cavity was accessed with a 5-Mongolian paracentesis needle/catheter system. The trocar was removed. A total of 2450 ml of ron-colored fluid were removed from the peritoneal cavity. The catheter was removed and a sterile dressing was applied. The procedure was well tolerated. US/Paracentesis with US IMPRESSION: Ultrasound guided paracentesis. Electronically Signed: Eric Mckay, at 8:26 EST , Service support ,
[2019-06-05 15:08] VITALS: BP 136/39; BP 139/31; PULSE 73; PULSE 82; RESP 18; O2SAT 98; O2SAT 99
== END ==
PROVIDERS: Family Provider Family Medicine; PCP Family Medicine; Referring Provider Nurse Practitioner Family; Visit Provider Nurse Practitioner Family
DX: R18.8 Other ascites (principal)
CPT/HCPCS: 49083

== ENCOUNTER 2019-06-08 17:48 | Emergency (ER) | payer MEDICARE, SELFPAY ==
[2018-06-11 11:00] VITALS: BMI 27.1
[2019-05-23 10:52] VITALS: BMI 30.5
[2019-06-08 17:49] VITALS: BP 147/56; PULSE 80; RESP 18; TEMP 36.5; O2SAT 99; BMI 34.9
--- NOTE | 2019-06-08 18:29 | RAD_ITS ---
STUDY: X-RAY - RIGHT WRIST REASON FOR EXAM: Female, 74 years old. pt c/o right arm pain and swelling. denies injury or fall. TECHNIQUE: 3 view(s) of the wrist were obtained. COMPARISON: None. FINDINGS: There is diffuse osteopenia. Normal radiocarpal articulation. Normal distal radioulnar articulation. Degenerative subcortical cysts of the scaphoid identified. Normal carpal articulations. There is degenerative arthrosis of the carpometacarpal articulation of the thumb. Normal second through fifth carpometacarpal articulations. Normal visualized metacarpal bones. There are vascular calcifications. RAD/Wrist min 3 Views IMPRESSION: No demonstrated fracture. Degenerative changes. Electronically Signed: Cleveland Sharpe MD (Brooks) at 19:29 EST , Service support ,
--- NOTE | 2019-06-08 18:45 | RAD_ITS ---
STUDY: X-RAY - RIGHT SHOULDER REASON FOR EXAM: Female, 74 years old. pt c/o right arm pain and swelling. denies injury or fall. TECHNIQUE: 3 view(s) of the shoulder. COMPARISON: None. FINDINGS: Normal glenohumeral articulation. There is degenerative arthrosis of the acromioclavicular joint without inferior osseous spur formation. There is diffuse osteopenia. Normal acromion. Normal humeral head and visualized proximal humerus. The soft tissue structures are unremarkable. There are vascular calcifications. Old right rib fracture noted. Opacity in the right lung base likely represents atelectasis. RAD/Shoulder min 2 Views IMPRESSION: No demonstrated fracture. Probable atelectasis in the right lung base. Electronically Signed: Cleveland Sharpe MD (Brooks) at 19:30 EST , Service support ,
--- NOTE | 2019-06-08 18:51 | ED.RN ---
pT MEDICATED WITH OXY BY [facility] JUST PRIOR TO [facility] PICKING HER UP. DR SMITH NOTIFIED AND ORDERS RECEIVED TO HOLD DOSE OF NORCO.
--- NOTE | 2019-06-08 18:54 | ED.DCSUM_ITS ---
- ER Visit Summary Date of Service: 06/08/19 Chief Complaint: Right shoulder and wrist pain History of Present Illness: The patient is a 74 F presenting with right shoulder pain. She states her right arm is painful when she tries to move her arm in different positions. She does not recall a specific injury. She is unsure if she may have hit it in the nighttime. She does have bruising to the posterior right arm. She is not on anticoagulants. She denies fever. Denies chest pain. Denies shortness of breath. Denies other complaints. Physical Examination: Vitals are stable. Patient is afebrile. Alert no acute distress. HEENT exam is unremarkable. Neck is nontender Lungs are clear and equal bilaterally. Heart is regular rate and rhythm. Abdomen is soft nontender nondistended. Extremities diffuse right shoulder tenderness with painful range of motion. Ecchymosis to posterior right arm. Neurovascularly intact distally. No erythema or warmth. Tenderness of lateral right wrist with active full range of motion. Skin is warm and dry. No focal neurologic deficit. Normal strength and sensation Remainder of exam is unremarkable. Emergency Department Course and Treatment: Patient had oxycodone just prior to arrival. Right shoulder and wrist x-ray shows no acute process. Patient continued to have pain was given morphine, Zofran IM with improvement. She is given a sling and advised range of motion exercises. She is given a thumb spica splint. Advised to follow-up with her primary care physician. Advised return the ED for worsening complaints. Disposition: Discharge home Impression: Right shoulder pain, right wrist pain This note was generated with [employer] dictation software. It may contain incorrect words, spelling, and punctuation that were not noted in review of the chart prior to signing ED Disposition - Plan for ED Patient: Instructions: Shoulder Sprain, Wrist Sprain Prescriptions: Oxycodone HCl/Acetaminophen [Percocet 5/325] 1 tab PO Q6H PRN PRN 3 Days #12 tab PRN Reason: Pain Prescription Printed Referrals: Walter Chao MD [Primary Care Provider] -
[2019-06-08] MEDS: morphine 10 MG/ML Syringe 6 MG IM (20:20)
[2019-06-08] MEDS: Ondansetron 4 MG/2 ML Vial IM (20:20)
--- NOTE | 2019-06-08 20:58 | ED.RN ---
6 mg of Morphine IM with good effect. pt resting with eyes closed, breathing even and unlabored.
--- NOTE | 2019-06-08 21:07 | ED.DEP ---
ED Disposition - Plan for ED Patient: Instructions: Wrist Sprain, Shoulder Sprain Prescriptions: Oxycodone HCl/Acetaminophen [Percocet 5/325] 1 tablet PO Q6H PRN PRN 3 Days #12 tablet PRN Reason: Pain Referrals: Walter Chao MD [Primary Care Provider] -
[2019-06-08 22:09] VITALS: BP 145/55; PULSE 70; RESP 16; O2SAT 97
== END 2019-06-08 22:34 | disposition skilled nursing facility (03) ==
LOC: ED 18:36
PROVIDERS: Emergency Provider Emergency Medicine; PCP Family Medicine
DX: M25.511 Pain in right shoulder (principal); M25.531 Pain in right wrist; S40.021A Contusion of right upper arm, initial encounter; X58.XXXA Exposure to other specified factors, initial encounter; Y93.9 Activity, unspecified; Y92.9 Unspecified place or not applicable; E11.22 Type 2 diabetes mellitus with diabetic chronic kidney disease; I12.0 Hypertensive chronic kidney disease with stage 5 chronic kidney disease or end stage renal disease; N18.6 End stage renal disease; E78.00 Pure hypercholesterolemia, unspecified; Z79.82 Long term (current) use of aspirin; Z79.02 Long term (current) use of antithrombotics/antiplatelets; Z79.4 Long term (current) use of insulin; Z79.899 Other long term (current) drug therapy; Z72.0 Tobacco use
CPT/HCPCS: 73030; 73110; 96372; 99285; J2405

== ENCOUNTER → 2019-06-12 14:11 | Outpatient (CLI) | payer MEDICARE, SELFPAY ==
[2018-06-11 11:00] VITALS: BMI 27.1
[2019-05-13 12:40] VITALS: BMI 37.1
[2019-06-08 17:49] VITALS: BMI 34.9
--- NOTE | 2019-06-12 14:18 | US_ITS ---
PROCEDURE: Ultrasound guided paracentesis. DATE OF EXAMINATION: June 12, 2019.. INDICATION: Female, 74 years old. Ascites. PHYSICIAN: Eric Mckay M.D. TECHNIQUE: The risks, benefits, and alternatives to the procedure were explained to the patient. The specific risks of bleeding, infection, and damage to bowel were detailed and accepted. Witnessed informed consent was obtained. The abdomen was ultrasonographically surveyed. An appropriate pocket of fluid was identified at the right lower quadrant. The skin were cleaned and prepped in the usual sterile fashion. Using ultrasound guidance, the peritoneal cavity was accessed with a 5-Malawian paracentesis needle/catheter system. The trocar was removed. A total of 2750 ml of ron-colored fluid were removed from the peritoneal cavity. The catheter was removed and a sterile dressing was applied. The procedure was well tolerated. US/Paracentesis with US IMPRESSION: Ultrasound guided paracentesis. Electronically Signed: Eric Mckay, at 16:11 EST , Service support ,
[2019-06-12 14:37] VITALS: BP 120/43; BP 123/46; BP 129/49; PULSE 74; PULSE 77; RESP 16; RESP 18; O2SAT 100; O2SAT 92
== END ==
PROVIDERS: Family Provider Family Medicine; PCP Family Medicine; Referring Provider Family Medicine; Visit Provider Family Medicine
DX: R18.8 Other ascites (principal)
CPT/HCPCS: 49083

== ENCOUNTER → 2019-06-19 14:13 | Outpatient (CLI) | payer MEDICARE, MEDICAID, SELFPAY ==
[2018-06-11 11:00] VITALS: BMI 27.1
[2019-06-08 17:49] VITALS: BMI 34.9
--- NOTE | 2019-06-19 14:15 | US_ITS ---
PROCEDURE: Ultrasound guided paracentesis. DATE OF EXAMINATION: June 19, 2019. INDICATION: Female, 74 years old. Ascites. PHYSICIAN: Eric Mckay M.D. TECHNIQUE: The risks, benefits, and alternatives to the procedure were explained to the patient. The specific risks of bleeding, infection, and damage to bowel were detailed and accepted. Witnessed informed consent was obtained. The abdomen was ultrasonographically surveyed. An appropriate pocket of fluid was identified at the right lower quadrant. The skin were cleaned and prepped in the usual sterile fashion. Using ultrasound guidance, the peritoneal cavity was accessed with a 5-Canadian paracentesis needle/catheter system. The trocar was removed. A total of 2950 ml of ron-colored fluid were removed from the peritoneal cavity. The catheter was removed and a sterile dressing was applied. The procedure was well tolerated. US/Paracentesis with US IMPRESSION: Ultrasound guided paracentesis. Electronically Signed: Eric Mckay, at 15:18 EST , Service support ,
[2019-06-19 14:50] VITALS: BP 101/53; BP 138/81; PULSE 80; PULSE 81; RESP 16; O2SAT 100; O2SAT 99
== END ==
PROVIDERS: Family Provider Family Medicine; PCP Family Medicine; Referring Provider Family Medicine; Visit Provider Family Medicine
DX: R18.8 Other ascites (principal)
CPT/HCPCS: 49083

== ENCOUNTER → 2019-07-01 12:29 | Outpatient (CLI) | payer MEDICARE, MEDICAID, SELFPAY ==
[2018-06-11 11:00] VITALS: BMI 27.1
[2019-06-08 17:49] VITALS: BMI 34.9
--- NOTE | 2019-07-01 12:32 | US_ITS ---
PROCEDURE: Ultrasound guided paracentesis. DATE OF EXAMINATION: July 01, 2019. INDICATION: Female, 74 years old. Ascites. PHYSICIAN: Eric Mckay M.D. TECHNIQUE: The risks, benefits, and alternatives to the procedure were explained to the patient. The specific risks of bleeding, infection, and damage to bowel were detailed and accepted. Witnessed informed consent was obtained. The abdomen was ultrasonographically surveyed. An appropriate pocket of fluid was identified at the right lower quadrant. The skin were cleaned and prepped in the usual sterile fashion. Using ultrasound guidance, the peritoneal cavity was accessed with a 5-Moldovan paracentesis needle/catheter system. The trocar was removed. A total of 4950 ml of ron-colored fluid were removed from the peritoneal cavity. The catheter was removed and a sterile dressing was applied. The procedure was well tolerated. US/Paracentesis with US IMPRESSION: Ultrasound guided paracentesis. Electronically Signed: Eric Mckay, at 14:23 EST , Service support ,
[2019-07-01 12:54] VITALS: BP 130/53; BP 134/57; BP 135/60; PULSE 73; PULSE 77; PULSE 78; RESP 18; TEMP 27.2; O2SAT 97; O2SAT 98
--- NOTE | 2019-07-01 13:35 | RAD_ITS ---
STUDY: X-RAY - LEFT SCAPULA REASON FOR EXAM: Female, 74 years old. Pain after fall. History of previous fracture. TECHNIQUE: 2 view(s) of the scapula were obtained. COMPARISON: Chest x-ray July 05, 2016. FINDINGS: On image Se: CR # [id number] there is a nondisplaced transverse fracture midportion, body of the scapula. Normal glenohumeral articulation. Normal acromioclavicular joint. Normal visualized humeral head. Normal visualized pulmonary apex. RAD/Scapula IMPRESSION: Nondisplaced fracture, body of the scapula. Consider correlation with CT if old studies are not available for comparison. Electronically Signed: Manpreet Collins MD at 0:32 EST , Service support ,
== END ==
PROVIDERS: PCP Family Medicine; Referring Provider Family Medicine; Visit Provider Family Medicine
DX: R18.8 Other ascites (principal); S42.102A Fracture of unspecified part of scapula, left shoulder, initial encounter for closed fracture; W19.XXXA Unspecified fall, initial encounter
CPT/HCPCS: 49083; 73010

== ENCOUNTER → 2019-07-10 12:34 | Outpatient (CLI) | payer MEDICARE, MEDICAID, SELFPAY ==
[2018-06-11 11:00] VITALS: BMI 27.1
--- NOTE | 2019-07-10 12:38 | US_ITS ---
PROCEDURE: Ultrasound guided paracentesis. DATE OF EXAMINATION: July 10, 2019. INDICATION: Female, 74 years old. Ascites. PHYSICIAN: Eric Mckay M.D. TECHNIQUE: The risks, benefits, and alternatives to the procedure were explained to the patient. The specific risks of bleeding, infection, and damage to bowel were detailed and accepted. Witnessed informed consent was obtained. The abdomen was ultrasonographically surveyed. An appropriate pocket of fluid was identified at the right lower quadrant. The skin were cleaned and prepped in the usual sterile fashion. Using ultrasound guidance, the peritoneal cavity was accessed with a 5-Croatian paracentesis needle/catheter system. The trocar was removed. A total of 4750 ml of pale yellow fluid were removed from the peritoneal cavity. The catheter was removed and a sterile dressing was applied. The procedure was well tolerated. US/Paracentesis with US IMPRESSION: Ultrasound guided paracentesis. Electronically Signed: Eric Mckay, at 13:37 EST , Service support ,
[2019-07-10 12:48] VITALS: BP 122/62; BP 125/53; BP 139/54; PULSE 72; PULSE 78; RESP 18; RESP 20; TEMP 36.4; O2SAT 100
== END ==
PROVIDERS: PCP Family Medicine; Referring Provider Family Medicine; Visit Provider Family Medicine
DX: R18.8 Other ascites (principal)
CPT/HCPCS: 49083

== ENCOUNTER → 2019-07-22 12:15 | Outpatient (CLI) | payer MEDICARE, MEDICAID, SELFPAY ==
[2018-06-11 11:00] VITALS: BMI 27.1
--- NOTE | 2019-07-22 12:19 | US_ITS ---
PROCEDURE: Ultrasound guided paracentesis. DATE OF EXAMINATION: July 22, 2019. INDICATION: Female, 74 years old. Ascites. PHYSICIAN: Eric Mckay M.D. TECHNIQUE: The risks, benefits, and alternatives to the procedure were explained to the patient. The specific risks of bleeding, infection, and damage to bowel were detailed and accepted. Witnessed informed consent was obtained. The abdomen was ultrasonographically surveyed. An appropriate pocket of fluid was identified at the right lower quadrant. The skin were cleaned and prepped in the usual sterile fashion. Using ultrasound guidance, the peritoneal cavity was accessed with a 5-Wolof paracentesis needle/catheter system. The trocar was removed. A total of 3650 ml of cloudy yellow fluid were removed from the peritoneal cavity. The catheter was removed and a sterile dressing was applied. The procedure was well tolerated. US/Paracentesis with US IMPRESSION: Ultrasound guided paracentesis. Electronically Signed: Eric Mckay, at 14:27 EST , Service support ,
[2019-07-22 12:41] VITALS: BP 132/52; BP 137/60; BP 139/60; PULSE 72; PULSE 77; RESP 18; TEMP 36.6; O2SAT 97; O2SAT 99
== END ==
PROVIDERS: PCP Family Medicine; Referring Provider Family Medicine; Visit Provider Family Medicine
DX: R18.8 Other ascites (principal)
CPT/HCPCS: 49083

== ENCOUNTER → 2019-07-31 12:11 | Outpatient (CLI) | payer MEDICARE, MEDICAID, SELFPAY ==
[2018-06-11 11:00] VITALS: BMI 27.1
--- NOTE | 2019-07-31 12:13 | US_ITS ---
PROCEDURE: Ultrasound guided paracentesis. DATE OF EXAMINATION: July 31, 2019. INDICATION: Female, 74 years old. Ascites. PHYSICIAN: Eric Mckay M.D. TECHNIQUE: The risks, benefits, and alternatives to the procedure were explained to the patient. The specific risks of bleeding, infection, and damage to bowel were detailed and accepted. Witnessed informed consent was obtained. The abdomen was ultrasonographically surveyed. An appropriate pocket of fluid was identified at the right lower quadrant. The skin were cleaned and prepped in the usual sterile fashion. Using ultrasound guidance, the peritoneal cavity was accessed with a 5-Armenian paracentesis needle/catheter system. The trocar was removed. A total of 3550 ml of ron-colored fluid were removed from the peritoneal cavity. The catheter was removed and a sterile dressing was applied. The procedure was well tolerated. US/Paracentesis with US IMPRESSION: Ultrasound guided paracentesis. Electronically Signed: Eric Mckay, at 14:06 EDT , Service support ,
[2019-07-31 13:04] VITALS: BP 139/50; BP 139/54; PULSE 76; PULSE 78; PULSE 84; RESP 16; RESP 18; TEMP 36.6; O2SAT 100; O2SAT 99
== END ==
PROVIDERS: PCP Family Medicine; Referring Provider Family Medicine; Visit Provider Family Medicine
DX: R18.8 Other ascites (principal)
CPT/HCPCS: 49083

== ENCOUNTER 2019-08-06 10:52 | Inpatient (IN) | payer MEDICARE, MEDICAID, SELFPAY ==
[2018-06-11 11:00] VITALS: BMI 27.1
[2019-08-06] VITALS (13 sets, daily range): BP systolic 95–144; BP diastolic 31–70; PULSE 67–82; RESP 16–18; TEMP 36.3–36.8; O2SAT 95–100; BMI 31.9; BMI 34.3
[2019-08-06] MEDS: 0.9% Normal Saline 1,000 ML 15 ML IV (11:37)
[2019-08-06 11:48] LABS: Absolute Lymphocyte Count 0.62 X10^3/uL (0.83-4.51); Absolute Neutrophil Count 7.7 X10^3/uL (2.0-7.7); Basophil# 0.01 X10^3/uL; Basophil% 0.1 % (0-1); Eosinophil# 0.02 X10^3/uL; Eosinophils% 0.2 % (0-5); Hematocrit 24.5 % (37-47); Hemoglobin 7.3 g/dL (12.0-15.0); Lymphocyte # 0.62 X10^3/ul (4.0); Lymphocyte % 7.1 % (19-41); Mean Corp Hgb Conc 29.8 g/dL (32-36); Mean Corpuscular Hgb 31.2 pg (27.0-32.0); Mean Corpuscular Volume 104.7 fL (81-99); Mean Platelet Vol. 8.7 fl (6.2-12.0); Monocyte# 0.33 X10^3/uL; Monocyte% 3.8 % (0-10); NRBC Flagged by Analyzer 0 % (0-5); Neutrophil # 7.74 X10^3/uL (2.7-7.7); Neutrophil % 88.2 % (47-70); POSITIVE MORPHOLOGY YES; Platelet Count 163 K/mm3 (150-450); RBC Distribution Width CV 18.5 % (11.6-14.6); RBC Distribution Width SD 69.5 fl (35.1-43.9); Red Blood Count 2.34 M/mm3 (4.2-5.4); White Blood Count 8.8 K/mm3 (4.4-11.0)
[2019-08-06 11:55] LABS: Differential Indicated SCAN CRITERIA MET
[2019-08-06 12:00] LABS: Anion Gap 10 (5-15); BUN 56 mg/dL (7-18); BUN/Creat Ratio 12.9 RATIO (10-20); Calcium,Total 7.9 mg/dL (8.5-10.1); Chloride 91 mmol/L (98-107); Creatinine, Serum 4.33 mg/dL (0.55-1.02); EST Glomerular Filtration Rate 11 mL/min (>60); Est Glom Filt Rate - Afr Amer 13 mL/min (>60); Estimated Creatinine Clearance 9.95 ml/min; Glucose 141 mg/dL (74-106); Potassium 4.5 mmol/L (3.5-5.1); Sodium Level 128 mmol/L (136-145)
[2019-08-06 12:07] LABS: Anisocytosis 2+; Differential Comment SCANNED; Hypochromasia 1+; Macrocytosis 1+; Microcytosis 1+
--- NOTE | 2019-08-06 12:12 | ED.VISSUMM ---
- ER Visit Summary Date of Service: 08/06/19 Chief Complaint: [Low hemoglobin] History of Present Illness: The patient is a 74 F [presents the emergency department complaint of abnormal labs that were drawn at rehab center where the patient has been since May. Patient is scheduled to be discharged to her home tomorrow. Patient is a dialysis patient. Patient is scheduled to be at dialysis at this time. Patient complains of generalized weakness and just having no energy. Patient denies any blood in her stool or black tarry stools. Patient is not currently on blood thinners. Patient has history of diabetes, hypertension, coronary artery disease, history of A. fib, hypothyroidism, end-stage renal disease.] Physical Examination: [HEENT-PERRLA, EOMI. Cranial nerves II through XII grossly intact. TMs clear. Mucous membranes moist. No adenopathy. Cardiovascular-irregularly irregular with a thoracic systolic ejection murmur. Lungs-clear to auscultation, chest wall stable without crepitus or subcu emphysema Abdomen-normoactive bowel sounds, somewhat distended secondary to ascites. Nontender. No rebound, rigidity, or peritoneal signs. Extremities-intact ?4, normal range of motion, normal pulses, atraumatic] Test Results: [CBC with differential obtained showed a white of 8.8, hemoglobin 7.3, hematocrit 24, plates 163. Chemistry showed sodium 128, potassium 4.5, chloride 91, CO2 27. Glucose 141, BUN 56 and creatinine 4.33.] Emergency Department Course and Treatment: [Patient came [facility] that documented a hemoglobin of 6.2 yesterday and she tells me her hemoglobin today was 6.0. I did type and cross her for 2 units of packed red blood cells given that she has a symptomatic anemia.] Treatment Plan: [Patient will be admitted for transfusion and nephrology consultation given that she missed dialysis today.] Disposition: [Admit] Impression: [Somatic anemia Chronic renal failure Generalized weakness] This note was generated with rumr: turn off the lights dictation software. It may contain incorrect words, spelling, and punctuation that were not noted in review of the chart prior to signing ED Disposition - Plan for ED Patient: Referrals: Davy Coleman MD [Primary Care Provider] -
--- NOTE | 2019-08-06 12:32 | ED.RN ---
PT FEELS TOO WEAK FOR ORTHO
--- NOTE | 2019-08-06 12:44 | PCM.HP.STD ---
Problem List (1) History of GI bleed Status: Chronic (2) Stented coronary artery Status: Chronic Comment: Cutting Balloon and TAMI (3.0X18 mm Xience) Proximal LAD 04/18/2012; Rotational atherectomy to proximal, id and distal RCA with two overlapping 4.0 X 38 Synergy TAMI ([facility]) (3) Ascites Status: Chronic Qualifiers: (4) Pancytopenia Status: Chronic (5) Other specified peripheral vascular diseases Status: Chronic (6) Afib Status: Chronic Qualifiers: (7) Diabetes mellitus, type II Status: Chronic (8) Hyperlipidemia Status: Chronic Qualifiers: (9) Hypothyroidism Status: Chronic Qualifiers: (10) Anemia in chronic kidney disease Status: Chronic (11) End stage renal disease on dialysis Status: Chronic History of Present Illness Date of Admission: 08/06/19 Chief Complaint: Weakness, low hemoglobin The patient is a 74 year old F with multiple medical comorbidities as mentioned above was sent to the emergency department from the group home because of low hemoglobin and weakness. Today, she was found to have hemoglobin of 6 g/dL at the group home and she was sent in for evaluation. She does have a history of chronic anemia with frequent admissions for acute on chronic anemia that required blood transfusion. This anemia attributed to GI bleed although there was no source identified on colonoscopy or upper EGD. According to the patient, patient had capsule endoscopy last week at [facility] and the monitor was sent back to her doctor at [facility]. Patient's complaint is mainly weakness, generalized without any associated symptoms. She mentioned that she had bowel movement this morning with small amount of brown stool and there was no blood. She denied epistaxis, hematemesis, hemoptysis, hematochezia or melena. She does not make any urine and she is a dialysis patient. She has a history of ESRD on hemodialysis on Mondays, Wednesdays and Fridays and today, she did not go for dialysis because she came to the emergency department. She had a history of type 2 diabetes mellitus, has been on Lantus and Humalog sliding scale and her last hemoglobin A1c was on March, and it was less than 3.5%. Check history of CAD status post stents she has been on aspirin, statin and Plavix. She had a history of hypertension but the last several months, her blood pressure has been on the lower side and her antihypertensive medications were discontinued. She had a history of liver cirrhosis, has been on lactulose and she seemed to be compensated without evidence of acute hepatic encephalopathy. In the emergency department, initial vital signs are stable. Later, blood pressure dropped down to 80 systolic. She does have chronic hypotension and she has been on midodrine. Her routine blood work was remarkable for hemoglobin of 7.3 g/dL, sodium of 128, BUN of 56 and creatinine of 4.33, potassium is normal. Her hemoglobin at the group home was 6 g/dL. She is being admitted for acute on chronic symptomatic blood loss anemia for blood transfusion. Past Medical History Past Medical History (Chronic Problems): Chronic Problems (Last Reviewed 05/23/19 @ 04:[address] 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 (Chronic) Stented coronary artery (Chronic) Cutting Balloon and TAMI (3.0X18 mm Xience) Proximal LAD 04/18/2012; Rotational atherectomy to proximal, id and distal RCA with two overlapping 4.0 X 38 Synergy TAMI ([facility]) Ascites (Chronic) Pancytopenia (Chronic) Other specified peripheral vascular diseases (Chronic) Afib (Chronic) Congenital coronary artery anomaly (Chronic) Bradycardia (Chronic) Diabetes mellitus, type II (Chronic) Hyperlipidemia (Chronic) Hypothyroidism (Chronic) Anemia in chronic kidney disease (Chronic) Hypertension (Chronic) End stage renal disease on dialysis (Chronic) Medical History: Medical History (Last Reviewed 05/23/19 @ 04:[address] 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) I25.10 Ascites (Chronic) R18.8 Pancytopenia (Chronic) D61.818 Other specified peripheral vascular diseases (Chronic) I73.89 Afib (Chronic) I48.91 Congenital coronary artery anomaly (Chronic) Q24.5 Bradycardia (Chronic) R00.1 Diabetes mellitus, type II (Chronic) E11.9 Hyperlipidemia (Chronic) E78.5 Hypothyroidism (Chronic) E03.9 Anemia in chronic kidney disease (Chronic) N18.9, D63.1 Hypertension (Chronic) I10 End stage renal disease on dialysis (Chronic) N18.6, 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 Skin cancer C44.90 mouth/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, 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 Allergies lisinopril Allergy (Severe, Verified 08/06/19 10:52) Angioedema nebivolol HCl [From Bystolic] Adverse Reaction (Severe, Verified 08/06/19 10:52) bradycardia BRADYCARDIA Home Medications: Ambulatory Orders Medication Instructions Recorded Acetaminophen [Tylenol] 650 mg PO Q6H PRN 08/06/19 Albuterol Sulfate 2.5 mg IH Q4H PRN 08/06/19 Aspirin [Aspirin, Baby] 81 mg PO DAILY@0800 08/06/19 Atorvastatin Calcium [Lipitor] 80 mg PO QHS 08/06/19 B Complex W-C No.20/Folic Acid 1 mg PO DAILY 08/06/19 [Virt-Caps Softgel] Bisacodyl [Dulcolax] 10 mg RECTAL DAILY PRN PRN 08/06/19 Calcium Acetate 4 cap PO TIDCM 08/06/19 Cholecalciferol (VIT D3) [Vitamin 5,000 unit PO MOWEFR 08/06/19 D] Docusate Sodium 100 mg PO BID 08/06/19 Gabapentin [Neurontin] 2 cap PO BIDCM 08/06/19 Insulin Glargine,Hum.rec.anlog 11 unit SUBCUT QHS 08/06/19 [Lantus] Insulin Lispro [Humalog] 0 unit SUBCUT TIDCM 08/06/19 Lactulose [Chronulac, Cephulac] 40 gm PO Q12H PRN PRN 08/06/19 Melatonin 5 mg PO QHS 08/06/19 Midodrine HCl 10 mg PO MOWEFR 08/06/19 Mineral Oil 1 bottle DC DAILY PRN 08/06/19 Nitroglycerin 0.4 mg SL PRN PRN 08/06/19 Omeprazole 20 mg PO DAILY 08/06/19 Ondansetron [Zofran Odt] 4 mg PO Q6H PRN PRN 08/06/19 Oxycodone HCl 5 mg PO Q6H PRN 08/06/19 Ropinirole HCl [Requip] 2 tab PO QHS 08/06/19 Surgical History: Surgical History (Last Reviewed 05/23/19 @ 04:[address] Buddy Olson MD) Stented coronary artery (Chronic) Z95.5 Cutting Balloon and TAMI (3.0X18 mm Xience) Proximal LAD 04/18/2012; Rotational atherectomy to proximal, id and distal RCA with two overlapping 4.0 X 38 Synergy TAMI ([facility]) History of back surgery Z98.890 LATE 70'S History of colectomy Z90.49 History of hysterectomy Z90.710 History of laparoscopic cholecystectomy Z90.49 History of total right knee replacement Z96.651 Hx of foot surgery Z98.890 S/P left rotator cuff repair Z98.890 history left A-V fistula Surgical History: appendectomy, cholecystectomy, hysterectomy, total knee arthroplasty, - - Left upper extremity fistula, back surgery, colon resection with history of diverticulitis, GI bleed, right knee surgery, right total knee replacement, right foot surgery, left knee surgery, left foot surgery, PCI. 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 Haleigh Palma MD) Sister Diabetes Heart disease Hypertension Anemia History Items: Cancer - uterine Paternal Family History: Family History (Last Reviewed 08/06/19 @ 12:[address] Haleigh Palma MD) Sister Diabetes Heart disease Hypertension Anemia History Items: Cancer Sibling Family History: Family History (Last Reviewed 08/06/19 @ 12:[address] Haleigh Palma MD) Sister Diabetes Heart disease Hypertension Anemia History Items: Diabetes Review of Systems Constitutional: Reports: Weakness, Fatigue. Denies: Anorexia, Chills, Fever Eyes: Denies: Blurred vision, Double vision, Drainage, Redness HEENT: Denies: Difficulty Hearing, Ear Pain, Eye Pain, Nasal Congestion, Sinus Drainage, Sore Throat Cardiovascular: Denies: Chest Pain, Chest Pressure, Chest Tightness, Palpitations, Syncope Respiratory: Denies: Cough, Hemoptysis, Pleuritic Pain, Shortness of Breath, Sputum production, Wheezing Gastrointestinal: Denies: Abdominal Pain, Constipation, Diarrhea, Hematochezia, Nausea, Melena, Vomiting Genitourinary: Denies: Dysuria, Frequency, Hematuria Musculoskeletal: Denies: Arm Pain, Back Pain, Foot Pain Skin: Denies: Dryness, Rash Neurological: Denies: Balance problems, Double vision, Change in Speech, Slurred speech, Confusion, Headaches, Incoordination Psychiatric: Denies: Anxiety, Depression Endocrine: Denies: Change in Body Habitus, Polydipsia, Polyuria VTE Information - Inpt Only VTE Present on Admission: No VTE Mechan Device Prophylaxis: SCD's VTE Pharm Prophylaxis ordered?: No - Physical Exam Vitals/I&O's: Vital Signs Temp Pulse Resp BP Pulse Ox 98.2 F 75 18 95/67 98 08/06/19 12:35 08/06/19 12:35 08/06/19 12:35 08/06/19 12:35 08/06/19 12:35 Oxygen Delivery Method Room Air Weight: 192 lb Body Mass Index (BMI) 31.9 Finger Stick Blood Glucose 99 General: Alert, Oriented x3, Cooperative, No apparent distress, - - Pale. HEENT: Atraumatic, PERRLA, EOMI, Normocephalic Oral: Moist Mucosa, No Gingival or Mucosal Lesions/ Ulcerations Neck: Supple, No JVD, Negative Carotid Bruits, Trachea Midline, Thyroid Normal Size and Texture Lungs: Clear to auscultation, Normal air movement, No wheeze, No rales, Diminished, Rhonchi Cardiovascular: Regular rate, Regular Rhythm, Normal S1, Normal S2, PMI Normal Abdomen: Bowel Sounds Present, Soft, Non Tender, No Hepato-splenomegaly, Distended, - - Ascites. Extremities: No clubbing, No cyanosis, Edema Skin: No rashes, No breakdown Lymphatic: No Cervical, Supraclavicular, or Inguinal Adenopathy Neurological: Cranial nerves II-XII grossly intact, Motor Exam 5/5 strength throughout Psych/Mental Status: Normal Affect, Appropriate, Alert and oriented to time, place, person, mood and affect Microbiology Past 72 Hours 08/06/19 11:11 Stool Stool Occult Blood (BLAKE) - Final Occult Blood Positive Laboratory Results 08/06/19 11:40: WBC 8.8, RBC 2.34 L, Hgb 7.3 L, Hct 24.5 L, MCV 104.7 H, MCH 31.2, MCHC 29.8 L, RDW Std Deviation 69.5 H, RDW Coeff of Susan 18.5 H, Plt Count 163, MPV 8.7, Immature Gran % (Auto) 0.600, Neut % (Auto) 88.2 H, Lymph % (Auto) 7.1 L, [place] % (Auto) 3.8, Eos % (Auto) 0.2, Baso % (Auto) 0.1, Absolute Neuts (auto) 7.7, Absolute Lymphs (auto) 0.62 L, Nucleated RBC % 0, Differential Comment SCANNED, Hypochromasia 1+, Anisocytosis 2+, Microcytosis 1+, Macrocytosis 1+ 08/06/19 11:40: Sodium 128 L, Potassium 4.5, Chloride 91 L, Carbon Dioxide 27.0, Anion Gap 10, BUN 56 H, Creatinine 4.33 H, Estim Creat Clear Calc 9.95, Est GFR (MDRD) Af Amer 13 L, Est GFR (MDRD) Non-Af 11 L, BUN/Creatinine Ratio 12.9, Glucose 141 H, Calcium 7.9 L 08/06/19 11:40: Blood Type Pending, Antibody Screen Pending, Crossmatch See Detail Current Medications Sodium Chloride () 1,000 mls @ 0 mls/hr IV .Q0M FARZANA Last Admin: 08/06/19 11:37 Dose: 15 mls/hr Documented by: Assessment/Plan This is a 74 years old female patient was sent from the group home because of low hemoglobin and weakness, found to have acute on chronic blood loss symptomatic anemia in context of history of GI bleed without identified source and she is being admitted for blood transfusion. #1 acute on chronic blood loss symptomatic anemia: Patient with frequent admissions for acute on chronic anemia requiring blood transfusion. She does have a history of GI bleed but without identifiable source. She had upper EGD on March, that was normal without evidence of active bleeding. During same admission, she had colonoscopy that revealed diverticulosis without evidence of active bleeding but blood was seen in the entire colon. She underwent capsule endoscopy last week at [facility]. Her stool is positive for occult blood. Plan: Admit to PCU, cardiac monitoring, transfuse 2 L of packed RBCs, repeat H&H after blood transfusion, repeat CBC and BMP tomorrow morning, obtain capsule endoscopy report from [facility], PT OT evaluation and treatment. #2 hypotension: She is asymptomatic. Her blood pressure sometimes goes low and she has been on midodrine. She is not tachycardic, afebrile. She is not on any antihypertensive medications. She was on 4 different antihypertensive medications but they were taken off the last several months. Plan for blood transfusion, monitor blood pressure, continue midodrine. #3 ESRD on hemodialysis: On dialysis on Mondays, Wednesdays and Fridays. She missed dialysis today. Kidney function is stable, volume status is stable at this time. Plan: Nephrology consult. #4 type 2 diabetes mellitus: ADA diet, Accu-Cheks, insulin sliding scale, continue Lantus. #5 CAD status post stents: Stable, no acute issues. Continue aspirin, statins. #6 liver cirrhosis: Compensated, stable. Paracentesis was done on July 31, 2019. Continue lactulose and docusate. No evidence of better encephalopathy. #7 GERD: Continue PPI. #8 hyperlipidemia: Continue statins. #9 DVT prophylaxis: SCDs. This note was generated with Iceberg dictation software. It may contain incorrect words, spelling, and punctuation that were not noted in checking the note before signing. Inpatient E&M: 07401 Init Hosp L2
--- NOTE | 2019-08-06 12:50 | NURSING ---
121 ASHELFAH CHRONIC RENAL FAILURE, SYMPTOMATIC ANEMIA
[2019-08-06 13:38] LABS: Hematocrit 24.6 % (37-47); Hemoglobin 7.3 g/dL (12.0-15.0)
--- NOTE | 2019-08-06 14:11 | PN_ITS ---
Progress Note 74 y/o F with ESRD on HD MWF admitted for anemia with hx GI bleed. Hgb was 6.9 on 08/04/19 at dialysis center. Hgb 9.1 on 07/27. She recently was seen by GI with camera study done with unknown results. She has intermittent dark stools, none recently. Denied hematochezia. She has frequent paracentesis performed every 2-3 weeks for ascites. Interdialytic fluid gains high in the 5-8kg range. Next paracentesis was scheduled for next week on 08/11. She was instructed to come in for blood transfusion. She was discharged from [facility] prior to transfer to ER. She is to be discharged to her sister's house in [place]. VSS. AF AOx3, NAD HRRR LCTA Abdomen distended, tight Extrem edema, indurated chronically Labs reviewed A/P ESRD Dialysis arranged, follow chronic orders GI bleed, anemia prbc. HTN stable DM2 stable Ascites, cirrhosis paracentesis 08/11 as outpt Hyponatremia due to liver disease, chronic fluid overload Pt seen on 08/07/19 STROKE Vital Signs/Narrative: Vital Signs Temp Pulse Resp BP Pulse Ox 08/06/19 13:40 67 08/06/19 13:31 98.0 F 69 18 135/34 H 97 08/06/19 12:35 98.2 F 75 18 95/67 98 08/06/19 12:29 75 18 95/67 98 08/06/19 11:40 72 18 101/31 L 99 08/06/19 10:53 97.4 F L 72 17 144/70 H 100
[2019-08-06 16:45] LABS: Bedside Glucose 123 mg/dL (70-110)
--- NOTE | 2019-08-06 17:17 | NURSING ---
PRBC's transfused with dialysis treatment by sample washer.
[2019-08-06] MEDS: oxyCODONE 5 MG Tablet PO ×2 (17:21→23:25)
--- NOTE | 2019-08-06 18:59 | DIALYSIS ---
HEMODIALYSIS X 4HRS TODAY. UF -3000mL REMOVED. 2 UNITS PRBC GIVEN DURING HD TX. PT TOLERATED TX WELL. REPORT TO EDIN [facility]. PT STABLE
[2019-08-06] MEDS: Acetaminophen 325 MG Tablet 650 MG PO (20:18)
[2019-08-06] MEDS: Gabapentin 100 MG Capsule 200 MG PO (20:18)
[2019-08-06] MEDS: Calcium Acetate 667 MG Capsule PO (20:19)
[2019-08-06] MEDS: Atorvastatin Calcium 80 MG Tablet PO (21:09)
[2019-08-06] MEDS: Pramipexole Di-HCl 0.25 MG Tablet PO (21:09)
[2019-08-06] MEDS: MELATONIN 10 MG TABLET 5 MG PO (21:09)
[2019-08-06] MEDS: Docusate Sodium 100 MG Capsule PO (21:09)
[2019-08-06] MEDS: Insulin Lispro 100 UNIT/ML INSULN.PEN SC (21:15)
[2019-08-06 21:26] LABS: Bedside Glucose 173 mg/dL (70-110)
[2019-08-06] MEDS: Zolpidem Tartrate 5 MG Tablet PO (21:50)
[2019-08-07 03:06] VITALS: PULSE 67
[2019-08-07 03:30] VITALS: BP 120/48; PULSE 69; RESP 20; TEMP 36.6; O2SAT 99
[2019-08-07] MEDS: Acetaminophen 325 MG Tablet 650 MG PO (04:39)
[2019-08-07 06:09] LABS: Absolute Lymphocyte Count 1.05 X10^3/uL (0.83-4.51); Absolute Neutrophil Count 5.4 X10^3/uL (2.0-7.7); Basophil# 0.02 X10^3/uL; Basophil% 0.3 % (0-1); Eosinophil# 0.03 X10^3/uL; Eosinophils% 0.4 % (0-5); Hematocrit 29.1 % (37-47); Hemoglobin 9.3 g/dL (12.0-15.0); Lymphocyte # 1.05 X10^3/ul (4.0); Lymphocyte % 14.8 % (19-41); Mean Corpuscular Hgb 31.1 pg (27.0-32.0); Mean Corpuscular Volume 97.3 fL (81-99); Mean Platelet Vol. 8.7 fl (6.2-12.0); Monocyte# 0.54 X10^3/uL; Monocyte% 7.6 % (0-10); NRBC Flagged by Analyzer 0 % (0-5); Neutrophil # 5.39 X10^3/uL (2.7-7.7); Neutrophil % 76.2 % (47-70); POSITIVE MORPHOLOGY YES; Platelet Count 148 K/mm3 (150-450); RBC Distribution Width CV 19.3 % (11.6-14.6); RBC Distribution Width SD 66.5 fl (35.1-43.9); Red Blood Count 2.99 M/mm3 (4.2-5.4); White Blood Count 7.1 K/mm3 (4.4-11.0)
[2019-08-07] MEDS: oxyCODONE 5 MG Tablet PO (06:30)
[2019-08-07 06:33] LABS: Differential Indicated SCAN CRITERIA MET
[2019-08-07 06:38] LABS: Albumin, Serum 1.4 g/dL (3.2-5.0); BUN 41 mg/dL (7-18); Calcium,Total 7.7 mg/dL (8.5-10.1); Chloride 91 mmol/L (98-107); Creatinine, Serum 3.41 mg/dL (0.55-1.02); EST Glomerular Filtration Rate 14 mL/min (>60); Est Glom Filt Rate - Afr Amer 17 mL/min (>60); Estimated Creatinine Clearance 12.63 ml/min; Glucose 124 mg/dL (74-106); Phosphorus 5.8 mg/dL (2.5-4.9); Sodium Level 127 mmol/L (136-145)
[2019-08-07 06:48] LABS: Anisocytosis 1+; Macrocytosis 1+; Polychromasia RARE
[2019-08-07 06:49] LABS: Hypochromasia RARE; Platelet Estimate SLT DEC (ADEQ)
[2019-08-07 06:53] VITALS: PULSE 65
[2019-08-07 07:01] LABS: Bedside Glucose 124 mg/dL (70-110)
[2019-08-07 07:40] VITALS: O2SAT 98
[2019-08-07] MEDS: Pantoprazole Sodium 20 MG Tablet PO (08:53)
[2019-08-07] MEDS: Calcium Acetate 667 MG Capsule PO (08:53)
[2019-08-07] MEDS: Docusate Sodium 100 MG Capsule PO (08:53)
[2019-08-07] MEDS: Aspirin 81 MG TAB.CHEW PO (08:53)
[2019-08-07] MEDS: Gabapentin 100 MG Capsule PO (08:59)
[2019-08-07 09:03] VITALS: BP 137/65; PULSE 72; RESP 20; TEMP 36.3; O2SAT 98
--- NOTE | 2019-08-07 09:43 | CASEMGMT ---
Addendum entered by Marylou Orozco 08/07/19 09:57: SW spoke with patient and she said they are going to to to her sisters at d/c. MARGO obtained this address, [address] [place] [address] , [place], [place]. MARGO called [facility] and let Lorie know this address. Marylou RAMIREZ ENVIRONMENTAL EDUCATION SPECIALIST Original Note: SW spoke with patient as SW is being told she was supposed to be discharged from the long-term today. She said they set her up with [facility]. MARGO spoke with Candelaria from [facility] and she confirmed this is accurate. RN WILLIE already spoke with [facility] and they confirmed they were going to be seeing patient. RN WILLIE put in a new order for home health. Plan: D/c home with sister and [facility], PT, and OT Marylou RAMIREZ ENVIRONMENTAL EDUCATION SPECIALIST
--- NOTE | 2019-08-07 11:29 | CASEMGMT ---
Pt was to be [facility] today and plan was to go home with [facility]. Call to Lorie at [facility] and she states that the [facility] had set pt up for SN, PT/OT but that they will need a new order for pt at this time. Per Betzaida ARAGON, pt's plan is to go home at discharge with [facility] set up. Order for SN, PT/OT, aide placed in [facility] at this time. Lorie is aware that plan is to discharge pt today, voices understanding. COVID transfer communication tool completed and faxed to [facility] at this time. Lorie at [facility] aware of tool, voices understanding. Lorie is aware that pt to be discharged today to her sisters home, voices understanding. [place] CM
--- NOTE | 2019-08-07 11:33 | DCINST_ITS ---
You will use the following diet at home:: Calorie/Carbohydrate Controlled (specify 1200, 1400, etc) - 1800 ania. Your food should be the consistency of: Regular Discharge Activity: Return to Normal Activity Weight Bearing Status: Weight bearing as tolerated Call your doctor if you observe: Fever of 101 or Higher, Shortness of breath, Dizziness, Fainting spells, Chest pain, Increased palpitations (irregular heartbeat), Uncontrolled pain Allergies/Adverse Reactions: Allergies lisinopril Allergy (Severe, Verified 08/06/19 10:52) Angioedema nebivolol HCl [From Bystolic] Adverse Reaction (Severe, Verified 08/06/19 10:52) bradycardia BRADYCARDIA Medications to take at Discharge Acetaminophen [Tylenol] 650 mg PO Q6H PRN 08/06/19 Atorvastatin Calcium [Lipitor] 80 mg PO QHS 08/06/19 B Complex W-C No.20/Folic Acid [Virt-Caps Softgel] 1 mg PO DAILY 08/06/19 Calcium Acetate 1 cap PO TIDCM 08/06/19 Cholecalciferol (VIT D3) [Vitamin D3] 5,000 unit PO MOWEFR 08/06/19 Docusate Sodium 100 mg PO BID 08/06/19 Gabapentin [Neurontin] 2 cap PO DINNER 08/06/19 Gabapentin [Neurontin] 100 mg PO DAILY 08/06/19 Insulin Glargine,Hum.rec.anlog [Lantus] 11 unit SUBCUT QHS 08/06/19 Insulin Lispro [Humalog] 0 unit SUBCUT TIDCM 08/06/19 Lactulose [Chronulac] 40 gm PO Q12H PRN PRN 08/06/19 Melatonin 5 mg PO QHS 08/06/19 Midodrine HCl 10 mg PO MOWEFR 08/06/19 Nitroglycerin 0.4 mg SL PRN PRN 08/06/19 Omeprazole 20 mg PO DAILY 08/06/19 Ondansetron [Zofran Odt] 4 mg PO Q6H PRN PRN 08/06/19 Oxycodone HCl 7.5 mg PO Q6H PRN 08/06/19 Ropinirole HCl [Requip] 2 tab PO QHS 08/06/19 Primary Care Physician: Davy Coleman MD [Primary Care Provider] - Please follow up with your Primary Care Physician in: 1 week. Test Results: Test results from this visit will be discussed in further detail at your follow- up appointment, if applicable.
--- NOTE | 2019-08-07 11:59 | DS.PCM_ITS ---
Discharge Date and Diagnosis Date of Admission: 08/06/19 Date of Discharge: 08/07/19 - Primary Discharge Diagnosis #1 acute on chronic blood loss symptomatic anemia. #2 transient hypotension, resolved. - Secondary Discharge Diagnosis Chronic Problems (Last Reviewed 05/23/19 @ 04:[address] Buddy Olson MD) History of GI bleed (Chronic) History of non-ST elevation myocardial infarction (NSTEMI) (Chronic 07/05/16) Atherosclerotic heart disease of [place] coronary artery without angina pectoris (Chronic) Stented coronary artery (Chronic) Cutting Balloon and TAMI (3.0X18 mm Xience) Proximal LAD 04/18/2012; Rotational atherectomy to proximal, id and distal RCA with two overlapping 4.0 X 38 Synergy TAMI ([facility] main) Ascites (Chronic) Pancytopenia (Chronic) Other specified peripheral vascular diseases (Chronic) Afib (Chronic) Congenital coronary artery anomaly (Chronic) Bradycardia (Chronic) Diabetes mellitus, type II (Chronic) Hyperlipidemia (Chronic) Hypothyroidism (Chronic) Anemia in chronic kidney disease (Chronic) Hypertension (Chronic) End stage renal disease on dialysis (Chronic) Hospital Course and Treatment Operations: None, - Procedures: Blood transfusion Summary of Care Provided: Patient seen and examined on the day of discharge and appeared to be stable to be discharged home. Her strength improved, weakness improved. Denied abdominal pain, nausea or vomiting. Denied melena or hematochezia. Her vital signs are stable. The patient is a 74 year old F [facility] because of low hemoglobin and weakness and she was found to have acute on chronic blood loss symptomatic anemia. This patient had a history of recurrent GI bleed without identifiable source. Reportedly at the [facility], hemoglobin was 6 g/dL. In the emergency department, her hemoglobin was 7.3 g/dL. Apart from weakness, patient denied any other symptoms. Her stool is positive for occult blood. This patient was admitted multiple times in the past with the same problem. She had upper EGD on March, that was normal without evidence of active upper GI bleed. Also, she had colonoscopy at that time which revealed diverticulosis without evidence of active bleeding but blood was seen in the entire colon. In the emergency department, her blood pressure was borderline low but improved later. Patient received total of 2 units of packed RBCs and her hemoglobin went up to 9.3 g/dL. She received hemodialysis during this hospital stay. She had capsule endoscopy that was done last week at [facility] which revealed small amount of blood in the distal ileum without source of bleeding. There was no bleeding on the entire colon. So far, upper EGD, colonoscopy and capsule endoscopy failed to identify the source of bleeding for this patient. She was seen by PT OT today, patient was able to walk for about 30 feet and she thinks that she can go home and manage. She mentioned that she is moving with her to her sister's house and she has enough support at home. Home health service was set up for the patient. Patient discharged home with home health in a stable condition, discharged on her previous home medications without any changes, recommended follow-up with PCP in 1 week. - Physical Exam Vitals/I&O's: Vital Signs Temp Pulse Resp BP Pulse Ox 97.4 F L 72 20 H 137/65 H 98 08/07/19 09:03 08/07/19 09:03 08/07/19 09:03 08/07/19 09:03 08/07/19 09:03 Oxygen Delivery Method Room Air Weight: 201 lb 0.985 oz Body Mass Index (BMI) 34.3 Finger Stick Blood Glucose 99 Intake and Output for Last 24 Hours 08/05/19 08/06/19 08/07/19 23:59 23:59 23:59 Intake Total 1125.25 / 1445.25 560 / 560 Balance 1125.25 / 1445.25 560 / 560 General: Alert, Oriented x3, Cooperative, No apparent distress HEENT: Atraumatic, PERRLA, EOMI, Normocephalic Oral: Moist Mucosa, No Gingival or Mucosal Lesions/ Ulcerations Neck: Supple, No JVD, Negative Carotid Bruits, Trachea Midline, Thyroid Normal Size and Texture Lungs: Clear to auscultation, Normal air movement, No rhonchi, No wheeze, No rales, Diminished Cardiovascular: Regular rate, Regular Rhythm, Normal S1, Normal S2, PMI Normal Abdomen: Bowel Sounds Present, Soft, Non Tender, Non-Distended, No Hepato- splenomegaly Extremities: No clubbing, No cyanosis, Edema Skin: No rashes, No breakdown Lymphatic: No Cervical, Supraclavicular, or Inguinal Adenopathy Neurological: Cranial nerves II-XII grossly intact, Neuro grossly intact Psych/Mental Status: Normal Affect, Appropriate Microbiology Past 72 Hours 08/06/19 11:11 Stool Stool Occult Blood (BLAKE) - Final Occult Blood Positive Laboratory Results 08/06/19 11:40: Differential Comment SCANNED, Hypochromasia 1+, Anisocytosis 2+, Microcytosis 1+, Macrocytosis 1+ 08/06/19 11:40: Sodium 128 L, Potassium 4.5, Chloride 91 L, Carbon Dioxide 27.0, Anion Gap 10, BUN 56 H, Creatinine 4.33 H, Estim Creat Clear Calc 9.95, Est GFR (MDRD) Af Amer 13 L, Est GFR (MDRD) Non-Af 11 L, BUN/Creatinine Ratio 12.9, Glucose 141 H, Calcium 7.9 L 08/06/19 11:40: Blood Type O NEGATIVE, Antibody Screen NEGATIVE, Crossmatch See Detail 08/06/19 13:25: Hgb 7.3 L, Hct 24.6 L 08/06/19 16:37: POC Glucose 123 H 08/06/19 20:45: POC Glucose 173 H 08/07/19 05:48: WBC 7.1, RBC 2.99 L, Hgb 9.3 L, Hct 29.1 L, MCV 97.3 D, MCH 31.1, MCHC 32.0 D, RDW Std Deviation 66.5 H, RDW Coeff of Susan 19.3 H, Plt Count 148 L, MPV 8.7, Immature Gran % (Auto) 0.700, Neut % (Auto) 76.2 H, Lymph % (Auto) 14.8 L, Davie % (Auto) 7.6, Eos % (Auto) 0.4, Baso % (Auto) 0.3, Absolute Neuts (auto) 5.4, Absolute Lymphs (auto) 1.05, Nucleated RBC % 0, Platelet Estimate SLT DEC, Polychromasia RARE, Hypochromasia RARE, Anisocytosis 1+, Macrocytosis 1+ 08/07/19 05:48: Sodium 127 L, Potassium 4.0, Chloride 91 L, Carbon Dioxide 26.0, BUN 41 H, Creatinine 3.41 H, Estim Creat Clear Calc 12.63, Est GFR (MDRD) Af Amer 17 L, Est GFR (MDRD) Non-Af 14 L, BUN/Creatinine Ratio 12.0, Glucose 124 H, Calcium 7.7 L, Phosphorus 5.8 H, Albumin 1.4 L 08/07/19 06:34: POC Glucose 124 H Current Medications Acetaminophen (Tylenol) 650 mg PO Q6H PRN PRN PRN Reason: Pain Score 1-10/Temp > 100.7 F Last Admin: 08/07/19 04:39 Dose: 650 mg Documented by: Albuterol Sulfate (Ventolin Aerosols) 2.5 mg INHALATION Q4H PRN PRN PRN Reason: Shortness of breath, wheezing. Aspirin (Aspirin, Baby) 81 mg PO DAILY@0800 [facility] Last Admin: 08/07/19 08:53 Dose: 81 mg Documented by: Atorvastatin Calcium (Lipitor) 80 mg PO QHS [facility] Last Admin: 08/06/19 21:09 Dose: 80 mg Documented by: Bisacodyl (Dulcolax) 10 mg RECTAL DAILY PRN PRN PRN Reason: Constipation Calcium Acetate (Phoslo Gel Cap) 667 mg PO TIDCM [facility] Last Admin: 08/07/19 08:53 Dose: 667 mg Documented by: Docusate Sodium (Colace) 100 mg PO BID [facility] Last Admin: 08/07/19 08:53 Dose: 100 mg Documented by: Gabapentin (Neurontin) 100 mg PO DAILY [facility] Last Admin: 08/07/19 08:59 Dose: 100 mg Documented by: Gabapentin (Neurontin) 200 mg PO DINNER [facility] Last Admin: 08/06/19 20:18 Dose: 200 mg Documented by: Glucagon () 1 mg IM .X1 PRN PRN Reason: Hypoglycemia Sodium Chloride () 500 mls @ 15 mls/hr IV PRN PRN PRN Reason: Blood Transfusion Sodium Chloride () 250 mls @ 15 mls/hr IV .[id number] PRN PRN Reason: Saline Flush Sodium Chloride () 250 mls @ 15 mls/hr IV .[id number] PRN PRN Reason: Additional IVPB Infusion Dextrose (Dextrose 10%-Water) 250 mls @ 999 mls/hr IV .Q16M PRN; Protocol PRN Reason: HYPOGLYCEMIA Insulin Glargine (Lantus (Bkc)) 11 units SC QHS [facility] Last Admin: 08/06/19 21:09 Dose: 11 unit Documented by: Insulin Human Lispro (Humalog Kwikpen (Bkc)) 0 unit SC ACHS [facility]; Protocol Last Admin: 08/07/19 06:34 Dose: Not Given Documented by: Melatonin (Melatonin) 5 mg PO QHS [facility] Last Admin: 08/06/19 21:09 Dose: 5 mg Documented by: Midodrine (Proamatine) 10 mg PO MOWEFR [facility] Ondansetron HCl (Zofran) 4 mg IV Q8H PRN PRN PRN Reason: NAUSEA/VOMITING Oxycodone HCl (Oxyir) 5 mg PO Q6H PRN PRN Reason: Pain Score 1-10/10 Last Admin: 08/07/19 06:30 Dose: 5 mg Documented by: Pantoprazole Sodium (Protonix) 20 mg PO DAILY [facility] Last Admin: 08/07/19 08:53 Dose: 20 mg Documented by: Pramipexole Dihydrochloride (Mirapex) 0.25 mg PO QHS [facility] Last Admin: 08/06/19 21:09 Dose: 0.25 mg Documented by: Sodium Chloride () 10 - 40 ml IV UD PRN PRN Reason: SALINE FLUSH Zolpidem Tartrate (Ambien (Generic)) 5 mg PO QHS PRN PRN PRN Reason: INSOMNIA Last Admin: 08/06/19 21:50 Dose: 5 mg Documented by: Discharge Activity: Return to Normal Activity Weight Bearing Status: Weight bearing as tolerated Call your doctor if you observe: Fever of 101 or Higher, Shortness of breath, Dizziness, Fainting spells, Chest pain, Increased palpitations (irregular heartbeat), Uncontrolled pain Home Medications: Medications to take at Discharge Acetaminophen [Tylenol] 650 mg PO Q6H PRN 08/06/19 Atorvastatin Calcium [Lipitor] 80 mg PO QHS 08/06/19 B Complex W-C No.20/Folic Acid [Virt-Caps Softgel] 1 mg PO DAILY 08/06/19 Calcium Acetate 1 cap PO TIDCM 08/06/19 Cholecalciferol (VIT D3) [Vitamin D3] 5,000 unit PO MOWEFR 08/06/19 Docusate Sodium 100 mg PO BID 08/06/19 Gabapentin [Neurontin] 2 cap PO DINNER 08/06/19 Gabapentin [Neurontin] 100 mg PO DAILY 08/06/19 Insulin Glargine,Hum.rec.anlog [Lantus] 11 unit SUBCUT QHS 08/06/19 Insulin Lispro [Humalog] 0 unit SUBCUT TIDCM 08/06/19 Lactulose [Chronulac] 40 gm PO Q12H PRN PRN 08/06/19 Melatonin 5 mg PO QHS 08/06/19 Midodrine HCl 10 mg PO MOWEFR 08/06/19 Nitroglycerin 0.4 mg SL PRN PRN 08/06/19 Omeprazole 20 mg PO DAILY 08/06/19 Ondansetron [Zofran Odt] 4 mg PO Q6H PRN PRN 08/06/19 Oxycodone HCl 7.5 mg PO Q6H PRN 08/06/19 Ropinirole HCl [Requip] 2 tab PO QHS 08/06/19 Primary Care Physician: Davy Coleman MD [Primary Care Provider] - Please follow up with your Primary Care Physician in: 1 week. Please Follow Up With: Davy Coleman MD Disposition: Home with Home Health Minutes spent on discharge:: 27 Patient Condition:: Stable Medical Necessity - Tobacco Use Smoking Status: Former smoker Meaningful Use Info Meaningful Use Diagnoses (Choose all that apply): None applicable Inpatient E&M: 83722 Disch Hosp
[2019-08-07 12:10] VITALS: BP 121/58; PULSE 71; RESP 20; TEMP 36.3; O2SAT 99
--- NOTE | 2019-08-07 15:24 | CASEMGMT ---
MARGO called Julissa Cash at [facility] and let her know that patient went home to her sister's today with [facility]. Marylou RAMIREZ MSW
--- NOTE | 2019-08-08 14:54 | CASEMGMT ---
DC DATE: 08.08.2019 DC DISPOSITION: Home with [facility] DC DIAGNOSIS: anemia LACE/STRATA: 31/07 F/U APPTS MADE PRIOR TO DC: appt made with Dr. Coleman Pt home with [facility]. Per chart pt went home with her sister. Pt's phone number is the [facility], and no number is listed for sister. As pt has [facility] ordered for dc- call will be deferred. Kyra SANTIAGON RN ACM
== END 2019-08-07 12:55 | disposition home or self-care (01) | DRG 811 ==
LOC: ED 12:20 → PCU 12:45
PROVIDERS: Internal Medicine Nephrology; Admitting Provider Hospitalist; Emergency Provider Emergency Medicine; PCP Family Medicine; Visit Provider Hospitalist
DX: D62 Acute posthemorrhagic anemia (principal); N18.6 End stage renal disease; E87.1 Hypo-osmolality and hyponatremia; E11.22 Type 2 diabetes mellitus with diabetic chronic kidney disease; Z99.2 Dependence on renal dialysis; R19.5 Other fecal abnormalities; I25.10 Atherosclerotic heart disease of native coronary artery without angina pectoris; K74.60 Unspecified cirrhosis of liver; E78.5 Hyperlipidemia, unspecified; I95.9 Hypotension, unspecified; E03.9 Hypothyroidism, unspecified; D63.1 Anemia in chronic kidney disease; Z95.5 Presence of coronary angioplasty implant and graft; I25.2 Old myocardial infarction; Z87.891 Personal history of nicotine dependence; Z79.4 Long term (current) use of insulin
CPT/HCPCS: 36415; 80048; 80069; 82274; 82962; 85014; 85018; 85025; 86850; 86900; 86901; 86920; 86922; 90937; 97163; 97167; 97802; 99251; 99284; J7030; P9016; A4216; G0257; G0463

== ENCOUNTER → 2019-08-12 12:04 | Outpatient (CLI) | payer MEDICARE, MEDICAID, SELFPAY ==
[2018-06-11 11:00] VITALS: BMI 27.1
[2019-08-06 13:14] VITALS: BMI 34.3
--- NOTE | 2019-08-12 12:06 | US_ITS ---
PROCEDURE: Ultrasound guided paracentesis. DATE OF EXAMINATION: August 12, 2019. INDICATION: Female, 74 years old. Ascites. PHYSICIAN: Eric Mckay M.D. TECHNIQUE: The risks, benefits, and alternatives to the procedure were explained to the patient. The specific risks of bleeding, infection, and damage to bowel were detailed and accepted. Witnessed informed consent was obtained. The abdomen was ultrasonographically surveyed. A small pocket of fluid was identified at the right lower quadrant. The skin were cleaned and prepped in the usual sterile fashion. Using ultrasound guidance, the peritoneal cavity was accessed with a 5-Prydeinig paracentesis needle/catheter system. The trocar was removed. No fluid was able to be aspirated. The catheter was removed and a sterile dressing was applied. The procedure was well tolerated. US/Abdomen Limited IMPRESSION: Attempted ultrasound guided paracentesis. Electronically Signed: Eric Mckay, at 13:30 EDT , Service support ,
[2019-08-12 12:20] VITALS: BP 132/64; PULSE 79; RESP 18; TEMP 36.6; O2SAT 94
--- NOTE | 2019-08-12 13:28 | NURSING ---
Per EDIN Larose pt has not been taking home medications x3 days. EDIN Singer looked up patient's last admission and called home health. Lorie, intake nurse from home health waiting for phone call from family stating that patient would like to be seen by home health. Family is made aware that they need to contact home health to establish home health care for pt. EDIN Singer then called Dr. Gu office to make sure patient has follow up care. Per [facility] pt is to have phone call appointment at [phone].
--- NOTE | 2019-08-12 13:58 | NURSING ---
talked with Angelic a nurse from the Dialysis center reviewed our concerns and she will evaluate tomorrow when she sees the patient and will facilitate the phone visit from dr gilliam. will call daughter Jackeline and let her know need to call home health if they are needed and about dr edmonds appt.
== END ==
PROVIDERS: PCP Family Medicine; Referring Provider Family Medicine; Visit Provider Family Medicine
DX: R18.8 Other ascites (principal)
CPT/HCPCS: 76705

== ENCOUNTER → 2019-08-21 12:20 | Outpatient (CLI) | payer MEDICARE, MEDICAID, SELFPAY ==
[2018-06-11 11:00] VITALS: BMI 27.1
[2019-08-06 13:14] VITALS: BMI 34.3
--- NOTE | 2019-08-21 12:21 | US_ITS ---
PROCEDURE: Ultrasound guided paracentesis. DATE OF EXAMINATION: August 21, 2019. INDICATION: Female, 74 years old. Ascites. PHYSICIAN: Eric Mckay M.D. TECHNIQUE: The risks, benefits, and alternatives to the procedure were explained to the patient. The specific risks of bleeding, infection, and damage to bowel were detailed and accepted. Witnessed informed consent was obtained. The abdomen was ultrasonographically surveyed. An appropriate pocket of fluid was identified at the right lower quadrant. The skin were cleaned and prepped in the usual sterile fashion. Using ultrasound guidance, the peritoneal cavity was accessed with a 5-Finnish paracentesis needle/catheter system. The trocar was removed. A total of 3900 ml of ron-colored fluid were removed from the peritoneal cavity. The catheter was removed and a sterile dressing was applied. The procedure was well tolerated. US/Paracentesis with US IMPRESSION: Ultrasound guided paracentesis. Electronically Signed: Eric Mckay, at 13:48 EDT , Service support ,
[2019-08-21 14:46] VITALS: BP 103/33; BP 95/34; BP 98/35; PULSE 61; PULSE 65; RESP 16; RESP 18; TEMP 36.9; O2SAT 100; O2SAT 98
== END ==
PROVIDERS: PCP Family Medicine; Referring Provider Family Medicine; Visit Provider Family Medicine
DX: R18.8 Other ascites (principal)
CPT/HCPCS: 49083

== ENCOUNTER 2019-08-28 17:21 | Emergency (ER) | payer MEDICARE, MEDICAID, SELFPAY ==
[2018-06-11 11:00] VITALS: BMI 27.1
[2019-08-06 13:14] VITALS: BMI 34.3
[2019-08-28 17:23] VITALS: BP 105/45; PULSE 64; RESP 16; TEMP 36.6; O2SAT 97; BMI 32.4
--- NOTE | 2019-08-28 17:49 | ED.DCSUM_ITS ---
- ER Visit Summary Date of Service: 08/28/19 Chief Complaint: Right hip pain History of Present Illness: The patient is a 74 F presenting with right hip pain. Patient states she fell approximately 3 months ago. She states she has had right hip pain since that time. She does not believe she has had x-rays since the fall. She denies any new trauma. She states she takes Percocet daily for this pain and it is not helping. She is in pain management. She is able to ambulate. She denies bowel or bladder incontinence. She has chronic back pain which is no worse than usual. She denies fever or other complaints. Physical Examination: Vitals are stable. Patient is afebrile. Alert no acute distress. HEENT exam is unremarkable. Neck is supple. Lungs are clear and equal bilaterally. Heart is regular rate and rhythm. Abdomen is soft nontender nondistended. Extremities right lateral hip tenderness, no erythema or warmth. No pain with logrolling. Skin is warm and dry. No focal neurologic deficit. Remainder of exam is unremarkable. Emergency Department Course and Treatment: Patient was given morphine, Zofran IM. Right hip x-ray shows no acute fracture of the pelvis or right hip. Extensive atherosclerotic vascular calcifications again noted. On reevaluation, patient is resting comfortably. She states she is able to ambulate with her walker. She is advised to follow-up with her pain management physician tomorrow. Advised to return to ED for worsening complaints. Disposition: Discharge home Impression: Acute on chronic right hip pain This note was generated with [employer] dictation software. It may contain incorrect words, spelling, and punctuation that were not noted in review of the chart prior to signing ED Disposition - Plan for ED Patient: Referrals: Davy Coleman MD [Primary Care Provider] -
[2019-08-28] MEDS: Ondansetron 4 MG/2 ML Vial IM (18:03)
[2019-08-28] MEDS: morphine 8 MG/ML Syringe IM (18:03)
--- NOTE | 2019-08-28 18:21 | RAD_ITS ---
STUDY: X-RAY - PELVIS AND RIGHT HIP REASON FOR EXAM: Female, 74 years old. Right hip pain after fall back in April TECHNIQUE: 3 views of the pelvis and hip. COMPARISON: CT abdomen and pelvis March 14, 2019 FINDINGS: There is a non-specific bowel gas pattern. Diffuse atherosclerotic calcification of the visualized abdominal aorta and iliofemoral arteries again noted. There is a surgical clip in the left pelvic soft tissues. Normal bilateral iliac wings, sacroiliac joints and visualized sacrum. Normal bilateral superior and inferior pubic rami. Normal pubic symphysis. Normal bilateral ischial tuberosities. Normal visualized femoral head. Normal acetabulum. Normal hip joint. There is no demonstrated fracture. RAD/HIP, UNI W/ Pelvis 2-3 Views IMPRESSION: 1. No acute fracture of the pelvis or right hip. 2. Extensive atherosclerotic vascular calcifications again noted. Electronically Signed: Jose Guadalupe Jenkins MD at 18:40 EDT , Service support ,
[2019-08-28 18:44] VITALS: PULSE 65; RESP 16; O2SAT 98
--- NOTE | 2019-08-28 18:59 | ED.DEP ---
ED Disposition - Plan for ED Patient: Instructions: Relieving Back Pain Referrals: Davy Coleman MD [Primary Care Provider] - Joe Plasencia [NON-STAFF] -
[2019-08-28 19:18] VITALS: BP 108/36; PULSE 65; RESP 18; O2SAT 95
== END 2019-08-28 19:19 | disposition home or self-care (01) ==
LOC: ED 18:05
PROVIDERS: Emergency Provider Emergency Medicine; PCP Family Medicine
DX: M25.551 Pain in right hip (principal); G89.29 Other chronic pain; W19.XXXA Unspecified fall, initial encounter; Y93.9 Activity, unspecified; Y92.9 Unspecified place or not applicable; E11.22 Type 2 diabetes mellitus with diabetic chronic kidney disease; I12.0 Hypertensive chronic kidney disease with stage 5 chronic kidney disease or end stage renal disease; N18.6 End stage renal disease; Z99.2 Dependence on renal dialysis; I25.10 Atherosclerotic heart disease of native coronary artery without angina pectoris; I48.91 Unspecified atrial fibrillation; E03.9 Hypothyroidism, unspecified; E78.00 Pure hypercholesterolemia, unspecified; Z86.2 Personal history of diseases of the blood and blood-forming organs and certain disorders involving the immune mechanism; Z79.4 Long term (current) use of insulin; Z79.899 Other long term (current) drug therapy
CPT/HCPCS: 73502; 96372; 99282; J2405

== ENCOUNTER → 2019-09-04 12:23 | Outpatient (CLI) | payer MEDICARE, MEDICAID, SELFPAY ==
[2018-06-11 11:00] VITALS: BMI 27.1
[2019-08-06 13:14] VITALS: BMI 34.3
[2019-08-28 17:23] VITALS: BMI 32.4
--- NOTE | 2019-09-04 12:27 | US_ITS ---
PROCEDURE: ULTRASOUND GUIDED PARACENTESIS CLINICAL HISTORY: Female, 74 years old. ASCITES CONSENT: The risks, benefits and alternatives to the procedure were explained to the patient, and the patient agreed to the procedure and signed the consent. 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 PROCEDURE/TECHNIQUE: The risks, benefits, and alternatives to the procedure were explained to patient, and the patient agreed to the procedure and signed a consent form for the procedure. TECHNIQUE: Under the ultrasound guidance using sterile technique and after infiltration of the skin and subcutaneous soft tissues with 10 mL of lidocaine 1% a 5 Telugu drainage catheter is introduced in the lower part of the abdomen. 3650 mL of fluid were removed sample sent to lab for evaluation. The patient tolerated the procedure there was no immediate complication. FINDINGS: FLUID PRE-PROCEDURE There is posterior enhancement. The findings appear anechoic. There is no loculation. FLUID POST-PROCEDURE Amount of fluid drained: 3650 ml. US/Paracentesis with US IMPRESSION: Successful ultrasound-guided paracentesis. Electronically Signed: Fern Skinner, at 13:41 EDT Tel , Service support ,
[2019-09-04 13:09] VITALS: BP 100/45; BP 97/44; PULSE 65; PULSE 68; RESP 18; RESP 20; TEMP 36.6
== END ==
PROVIDERS: PCP Family Medicine; Referring Provider Family Medicine; Visit Provider Family Medicine
DX: R18.8 Other ascites (principal)
CPT/HCPCS: 49083

== ENCOUNTER 2019-09-06 15:29 | Inpatient (IN) | payer MEDICARE, MEDICAID, SELFPAY ==
[2018-06-11 11:00] VITALS: BMI 27.1
[2019-09-06] VITALS (37 sets, daily range): BP systolic 41–98; BP diastolic 23–76; PULSE 55–75; RESP 12–26; TEMP 36.3–36.6; O2SAT 84–99; BMI 31.4
--- NOTE | 2019-09-06 15:35 | HP.PCM_ITS ---
History of Present Illness Date of Admission: 09/06/19 Chief Complaint: confusion The patient is a 74 year old F with an extensive past medical history as outlined. She was admitted as a direct transfer from [facility] on account of altered mental status. Patient was seen up in the ICU where she was admitted under PCU status. She was alert and oriented and able to tell me what happened. According to patient, she realized she could not see out of her right eye this morning and she was also confused. She denies having any fever or chills, any headache, any chest pain, any shortness of breath, any nausea or vomiting. She has periodic paracentesis on account of ascites from liver cirrhosis and last had paracentesis done 2 days ago with removal of about 3 L of fluid which is the norm for her. She also had dialysis 1 day ago with removal of about 3.5 L of fluid which she also states is her baseline. She says the loss of vision in her right eye resolved after about 2 hours and at time of review, she had good vision in her right eye. She was taken to [facility] on account of her confusion. Labs done showed no acute abnormality and CT of the brain done showed no acute intracranial pathology. They could not get a an ammonia level at [facility]. COVID screen was done at [facility] though she had no fever or chills or shortness of breath but could not remember if she had come into contact with any patients with COVID-19 when she came to the hospital for her paracentesis, or when she went for dialysis. she is being admitted to be managed for acute metabolic encephalopathy. [] Past Medical History Past Medical History (Chronic Problems): Chronic Problems (Last Reviewed 05/23/19 @ 04:[address] Buddy Olson MD) History of GI bleed (Chronic) History of non-ST elevation myocardial infarction (NSTEMI) (Chronic 07/05/16) Atherosclerotic heart disease of [place] coronary artery without angina pectoris (Chronic) Stented coronary artery (Chronic) Cutting Balloon and TAMI (3.0X18 mm Xience) Proximal LAD 04/18/2012; Rotational atherectomy to proximal, id and distal RCA with two overlapping 4.0 X 38 Synergy TAMI ([facility] main) Ascites (Chronic) Pancytopenia (Chronic) Other specified peripheral vascular diseases (Chronic) Afib (Chronic) Congenital coronary artery anomaly (Chronic) Bradycardia (Chronic) Diabetes mellitus, type II (Chronic) Hyperlipidemia (Chronic) Hypothyroidism (Chronic) Anemia in chronic kidney disease (Chronic) Hypertension (Chronic) End stage renal disease on dialysis (Chronic) Medical History: Medical History (Last Reviewed 05/23/19 @ 04:[address] Buddy Olson MD) History of GI bleed (Chronic) Z87.19 History of non-ST elevation myocardial infarction (NSTEMI) (Chronic) Onset Date: 07/05/16 I25.2 Atherosclerotic heart disease of [place] coronary artery without angina pectoris (Chronic) I25.10 Ascites (Chronic) R18.8 Pancytopenia (Chronic) D61.818 Other specified peripheral vascular diseases (Chronic) I73.89 Afib (Chronic) I48.91 Congenital coronary artery anomaly (Chronic) Q24.5 Bradycardia (Chronic) R00.1 Diabetes mellitus, type II (Chronic) E11.9 Hyperlipidemia (Chronic) E78.5 Hypothyroidism (Chronic) E03.9 Anemia in chronic kidney disease (Chronic) N18.9, D63.1 Hypertension (Chronic) I10 End stage renal disease on dialysis (Chronic) N18.6, 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 Skin cancer C44.90 mouth/lip 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, 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 Allergies lisinopril Allergy (Severe, Verified 08/28/19 17:22) Angioedema nebivolol HCl [From Bystolic] Adverse Reaction (Severe, Verified 08/28/19 17:22) bradycardia BRADYCARDIA Home Medications: Ambulatory Orders Medication Instructions Recorded Acetaminophen [Tylenol] 650 mg PO Q6H PRN 08/06/19 Atorvastatin Calcium [Lipitor] 80 mg PO QHS 08/06/19 B Complex W-C No.20/Folic Acid 1 mg PO DAILY 08/06/19 [Virt-Caps Softgel] Calcium Acetate 1 cap PO TIDCM 08/06/19 Cholecalciferol (VIT D3) [Vitamin 5,000 unit PO MOWEFR 08/06/19 D3] Docusate Sodium 100 mg PO BID 08/06/19 Gabapentin [Neurontin] 100 mg PO DAILY 08/06/19 Gabapentin [Neurontin] 200 mg PO DINNER 08/06/19 Insulin Glargine,Hum.rec.anlog 11 unit SUBCUT QHS 08/06/19 [Lantus] Insulin Lispro [Humalog] 0 unit SUBCUT TIDCM 08/06/19 Lactulose [Chronulac] 40 gm PO Q12H PRN PRN 08/06/19 Melatonin 5 mg PO QHS 08/06/19 Midodrine HCl 10 mg PO MOWEFR 08/06/19 Nitroglycerin 0.4 mg SL PRN PRN 08/06/19 Omeprazole 20 mg PO DAILY 08/06/19 Ondansetron [Zofran Odt] 4 mg PO Q6H PRN PRN 08/06/19 Oxycodone HCl 7.5 mg PO Q6H PRN PRN 08/06/19 Ropinirole HCl [Requip] 2 tab PO QHS 08/06/19 Surgical History: Surgical History (Last Reviewed 05/23/19 @ 04:[address] Buddy Olson MD) Stented coronary artery (Chronic) Z95.5 Cutting Balloon and TAMI (3.0X18 mm Xience) Proximal LAD 04/18/2012; Rotational atherectomy to proximal, id and distal RCA with two overlapping 4.0 X 38 Synergy TAMI ([facility] main) History of back surgery Z98.890 LATE 70'S History of colectomy Z90.49 History of hysterectomy Z90.710 History of laparoscopic cholecystectomy Z90.49 History of total right knee replacement Z96.651 Hx of foot surgery Z98.890 S/P left rotator cuff repair Z98.890 history left A-V fistula Surgical History: appendectomy, cholecystectomy, hysterectomy, total knee arthroplasty, - - Left upper extremity fistula, back surgery, colon resection with history of diverticulitis, GI bleed, right knee surgery, right total knee replacement, right foot surgery, left knee surgery, left foot surgery, PCI. 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 Haleigh Palma MD) Sister Diabetes Heart disease Hypertension Anemia History Items: Cancer - uterine Paternal Family History: Family History (Last Reviewed 08/06/19 @ 12:[address] Haleigh Palma MD) Sister Diabetes Heart disease Hypertension Anemia History Items: Cancer Sibling Family History: Family History (Last Reviewed 08/06/19 @ 12:[address] Haleigh Palma MD) Sister Diabetes Heart disease Hypertension Anemia History Items: Diabetes Review of Systems Constitutional: Reports: Malaise, Weakness. Denies: Anorexia, Chills, Fever, [place] Eyes: Reports: Blurred vision, Vision Change HEENT: Denies: Head Aches, Sinus Congestion, Sinus Drainage Cardiovascular: Denies: Chest Pain, Chest Tightness, Edema, Heaviness, Light Headedness, Orthopnea, Palpitations Respiratory: Denies: Cough, Shortness of Breath, Shortness of breath at rest, Shortness of breath upon exertion, Sputum production Gastrointestinal: Denies: Abdominal Pain, Nausea, Vomiting Genitourinary: Denies: Dysuria Musculoskeletal: Denies: Joint Pain, Joint Tenderness Skin: Denies: Rash, Wounds Neurological: Reports: Blurred vision, Confusion, Focal weakness. Denies: Slurred speech, Incoordination, Numbness, Tingling Psychiatric: Denies: Anxiety, Depression, Homicidal Ideations, Suicidal Ideations Hematologic/ Lymphatic: Denies: Easy Bruising, Easy Bleeding VTE Information - Inpt Only VTE Present on Admission: No VTE Mechan Device Prophylaxis: SCD's - Physical Exam Vitals/I&O's: Weight: 188 lb 11.451 oz Body Mass Index (BMI) 31.4 Finger Stick Blood Glucose 99 General: Alert, Oriented x3, Cooperative, No apparent distress, Lethargic HEENT: Atraumatic, PERRLA, EOMI, Normocephalic Oral: Dry Mucosa Neck: Supple, No JVD, Negative Carotid Bruits Lungs: Clear to auscultation, Normal air movement, No rhonchi, No wheeze, No rales Cardiovascular: Regular rate, Regular Rhythm, Normal S1, Normal S2, No murmurs Abdomen: Bowel Sounds Present, Soft, No Hepato-splenomegaly, - - distended, positive fluid thrill from ascites. Clean dressing over right lower quadrant region-site of last paracentesis Extremities: No edema, Capillary Refill Less than 3 Seconds, - - AV fistula with good thrill in LUE Skin: No rashes, No breakdown Musculoskeletal: No Tenderness to Palpation of Joints or Extremities Lymphatic: No Cervical, Supraclavicular, or Inguinal Adenopathy Neurological: Cranial nerves II-XII grossly intact, Neuro grossly intact, Motor Exam 5/5 strength throughout Psych/Mental Status: Normal Affect, Appropriate, Alert and oriented to time, place, person, mood and affect Laboratory Results 09/06/19 15:20: Ammonia Pending Current Medications Dextrose (D50w Syringe) 0 gm IV X1 PRN; Protocol PRN Reason: Hypoglycemia Glucagon () 1 mg IM .X1 PRN PRN Reason: Hypoglycemia Sodium Chloride () 250 mls @ 15 mls/hr IV .[id number] PRN PRN Reason: Saline Flush Sodium Chloride () 250 mls @ 15 mls/hr IV .[id number] PRN PRN Reason: Additional IVPB Infusion Ondansetron HCl (Zofran) 4 mg IV Q8H PRN PRN PRN Reason: NAUSEA/VOMITING Sodium Chloride () 10 - 40 ml IV UD PRN PRN Reason: SALINE FLUSH Assessment/Plan 74-year-old female admitted with a complaint of altered mental status 1. Acute metabolic encephalopathy * Differentials include hepatic encephalopathy as patient states she is not been having frequent bowel movements though she has been taking her lactulose. In light of patient having blurred vision in her right eye which resolved after 2 hours, I cannot rule out the possibility of a stroke either, especially since she has a history of Afib, but is not on any oral anticoagulation or even aspirin because of history of GI bleed * Admit to ICU under PCU status. * Fall precautions. PT OT consults. * Will repeat CBC and CMP as well as check ammonia level. * Start on lactulose and titrate for 2-3 loose stools daily. * CT of the brain done at [facility] was negative. We will therefore order MRI of the brain and MRA of the head and neck * There is no clear evidence of infection and abdomen is nontender so I do not think it is likely that patient has SBP or any infection which is contributing. Her symptoms. * COVID was ordered by referring facility, and is pending. * 2. Probable TIA * Had blurred vision in right eye which resolved after about 2 hours. * Patient had no acute neurologic symptoms at time of review. * CT of the brain done at [facility] at time of presentation was negative. Will check MRI on Sunday. * NIH stroke scale over the next 24 hours. * Has a history of GI bleed and acute on chronic anemia so patient is not on aspirin. continue statin, pending MRI. * Consult neurology. * 3. Hypovolemic shock * patient's BP dropped to 81/36 after admission * I think this is likely due to her having had paracentesis and dialysis over the last 2 days * Review of records show she presented with the exact same scenario ~ 1 month ago, where she had hypovolemic shock after having dialysis and paracentesis back to back * will give 1L of IVF NS bolus, and IV albumin 26gram x 1 * start low dose levophed to help bring BP up * consult critical care * 4. ESRD on hemodialysis: Consult nephrology. Has dialysis Wednesdays. 5. Ascites due to liver cirrhosis: Had paracentesis 2 days ago. Has paracentesis every 2 weeks. On lactulose. 6. Anemia of chronic disease: Stable. CBC is pending. 7. Hypertension and hyperlipidemia: * On statin. Blood pressure is running low in the 90s which she states is normal for her. BP however went down to the 80s, so will give a dose of albumin, as she had paracentesis and dialysis with removal of ~ 6L of fluid over the last couple of days. * We will hold BP meds for now. 8. History of A. fib: Rate controlled. Will monitor. 9. Type 2 diabetes mellitus: On Lantus 11 units nightly. Insulin sliding scale. Accu-Cheks AC at bedtime. DVT prophylaxis: SCDs CODE STATUS: Full code * Patient counseled extensively about different types of CODE STATUS including full code, DNR CCA and DNR CCA. Patient elects to be full code. Total [id number] time 16 minutes. * Inpatient E&M: 74240 Init Hosp L3 Procedures: 57221 Advncd Care Plan 30 Min
[2019-09-06] MEDS: 0.9% Normal Saline 1,000 ML 999 ML IV (16:35)
[2019-09-06] MEDS: Albumin Human 25% (100 mL) 25 GM/100 ML BAG IV (17:53)
[2019-09-06 18:21] LABS: Hematocrit 37.2 % (37-47); Hemoglobin 10.8 g/dL (12.0-15.0); Mean Corpuscular Hgb 30.7 pg (27.0-32.0); Mean Corpuscular Volume 105.7 fL (81-99); POSITIVE MORPHOLOGY YES; Platelet Count 106 K/mm3 (150-450); RBC Distribution Width CV 17.7 % (11.6-14.6); RBC Distribution Width SD 67.7 fl (35.1-43.9); Red Blood Count 3.52 M/mm3 (4.2-5.4); Scan Indicated on CBC? Y/N YES- FLAGS NOTED; White Blood Count 5.9 K/mm3 (4.4-11.0)
[2019-09-06 18:35] LABS: ALB/GLOB Ratio 0.4 RATIO (0.9-2.4); AST(SGOT) 19 U/L (15-37); Alanine Aminotransfer ALT/SGPT 9 U/L (13-56); Albumin, Serum 1.7 g/dL (3.2-5.0); Alkaline Phosphatase 188 U/L (45-117); Anion Gap 7 (5-15); BUN 13 mg/dL (7-18); BUN/Creat Ratio 4.9 RATIO (10-20); Calcium,Total 7.2 mg/dL (8.5-10.1); Chloride 100 mmol/L (98-107); Creatinine, Serum 2.65 mg/dL (0.55-1.02); EST Glomerular Filtration Rate 19 mL/min (>60); Est Glom Filt Rate - Afr Amer 23 mL/min (>60); Estimated Creatinine Clearance 16.25 ml/min; Globulin 4.8 g/dL (2.2-4.2); Glucose 127 mg/dL (74-106); Potassium 3.5 mmol/L (3.5-5.1); Protein, Total 6.5 g/dL (6.4-8.2); Sodium Level 137 mmol/L (136-145)
[2019-09-06] MEDS: 0.9% Normal Saline 1,000 ML 125 ML IV (20:42)
--- NOTE | 2019-09-06 21:53 | PCM.HOSP.N ---
Hospitalist Note 9:53pm 09/06/19 I called the ICU to discuss with nurses about patient's BP. Patient's BP is still running low, and has been fluctuating. Per nurse, patient has remained alert and oriented. BP has been fluctuating. She is on 10mcg of levophed peripeherally. Patient may need central line placement for administration of higher doses of levophed as needed to maintain BP for MAP>65mmHg; Discussed with night hospitalist.
[2019-09-06] MEDS: Lactulose 20 GM/30 ML UDC 40 GM PO (22:41)
[2019-09-06] MEDS: Atorvastatin Calcium 80 MG Tablet PO (22:41)
[2019-09-07] VITALS (46 sets, daily range): BP systolic 55–108; BP diastolic 10–73; PULSE 68–115; RESP 10–26; TEMP 36.2–36.7; O2SAT 33–99
[2019-09-07 00:41] LABS: Bedside Glucose 144 mg/dL (70-110)
[2019-09-07] MEDS: 0.9% Normal Saline 1,000 ML 150 ML IV ×2 (00:59→07:43)
[2019-09-07] MEDS: Albumin Human 25% (100 mL) 25 GM/100 ML BAG IV (01:06)
[2019-09-07] MEDS: 0.9% Saline Lock 10 ML Syringe IV ×2 (03:36→21:15)
[2019-09-07 03:52] LABS: Absolute Lymphocyte Count 1.47 X10^3/uL (0.83-4.51); Absolute Neutrophil Count 4.1 X10^3/uL (2.0-7.7); Basophil# 0.05 X10^3/uL; Basophil% 0.8 % (0-1); Differential Indicated SCAN CRITERIA MET; Eosinophil# 0.13 X10^3/uL; Eosinophils% 2.1 % (0-5); Hematocrit 34.1 % (37-47); Lymphocyte # 1.47 X10^3/ul (4.0); Lymphocyte % 23.2 % (19-41); Mean Corp Hgb Conc 29.3 g/dL (32-36); Mean Corpuscular Hgb 30.9 pg (27.0-32.0); Mean Corpuscular Volume 105.2 fL (81-99); Mean Platelet Vol. 10.4 fl (6.2-12.0); Monocyte# 0.56 X10^3/uL; Monocyte% 8.8 % (0-10); NRBC Flagged by Analyzer 0 % (0-5); Neutrophil # 4.09 X10^3/uL (2.7-7.7); Neutrophil % 64.5 % (47-70); POSITIVE MORPHOLOGY YES; Platelet Count 106 K/mm3 (150-450); RBC Distribution Width CV 17.4 % (11.6-14.6); RBC Distribution Width SD 66.6 fl (35.1-43.9); Red Blood Count 3.24 M/mm3 (4.2-5.4); White Blood Count 6.3 K/mm3 (4.4-11.0)
[2019-09-07 03:57] LABS: International Normalized Ratio 1.5; Prothrombin Time (Protime)PT. 17.6 SECONDS (11.7-14.9)
[2019-09-07 04:06] LABS: Differential Comment SCANNED; Target Cells RARE
[2019-09-07 04:07] LABS: Stomatocyte RARE
[2019-09-07 04:08] LABS: ALB/GLOB Ratio 0.5 RATIO (0.9-2.4); AST(SGOT) 15 U/L (15-37); Alanine Aminotransfer ALT/SGPT 8 U/L (13-56); Albumin, Serum 1.9 g/dL (3.2-5.0); Alkaline Phosphatase 155 U/L (45-117); Anion Gap 6 (5-15); BUN 15 mg/dL (7-18); BUN/Creat Ratio 5.1 RATIO (10-20); Calcium,Total 7.8 mg/dL (8.5-10.1); Chloride 101 mmol/L (98-107); Cholesterol < 50 mg/dL (200); Creatinine, Serum 2.96 mg/dL (0.55-1.02); EST Glomerular Filtration Rate 16 mL/min (>60); Est Glom Filt Rate - Afr Amer 20 mL/min (>60); Estimated Creatinine Clearance 14.55 ml/min; Globulin 4.1 g/dL (2.2-4.2); Glucose 148 mg/dL (74-106); High Density Lipoprotein 23 mg/dL; Potassium 3.7 mmol/L (3.5-5.1); Sodium Level 138 mmol/L (136-145); Triglycerides 52 mg/dL; Very Low Density Lipoprotein 10 mg/dL (5-40)
[2019-09-07] MEDS: Calcium Acetate 667 MG Capsule PO ×2 (07:41→13:18)
[2019-09-07] MEDS: Lactulose 20 GM/30 ML UDC 40 GM PO ×2 (07:41→21:13)
[2019-09-07] MEDS: Folic Acid/Vitamin B Comp W-C 1 Capsule 1 CAP PO (07:41)
[2019-09-07] MEDS: Pantoprazole Sodium 20 MG Tablet PO (07:41)
[2019-09-07] MEDS: Midodrine HCl 5 MG Tablet 10 MG PO ×4 (07:42→21:15)
[2019-09-07] MEDS: Docusate Sodium 100 MG Capsule PO ×2 (07:44→21:13)
--- NOTE | 2019-09-07 08:21 | PCM.CON.CC ---
Problem List (1) History of GI bleed Status: Chronic (2) History of non-ST elevation myocardial infarction (NSTEMI) Status: Chronic (3) Atherosclerotic heart disease of [place] coronary artery without angina pectoris Status: Chronic Qualifiers: [place] vs. transplanted heart: [place] heart Qualified Code(s): I25.10 - Atherosclerotic heart disease of [place] coronary artery without angina pectoris (4) Ascites Status: Chronic Qualifiers: (5) Pancytopenia Status: Chronic (6) Other specified peripheral vascular diseases Status: Chronic (7) Afib Status: Chronic Qualifiers: (8) Congenital coronary artery anomaly Status: Chronic (9) Diabetes mellitus, type II Status: Chronic (10) Hyperlipidemia Status: Chronic Qualifiers: (11) Hypothyroidism Status: Chronic Qualifiers: (12) Anemia in chronic kidney disease Status: Chronic (13) Hypertension Status: Chronic Qualifiers: (14) End stage renal disease on dialysis Status: Chronic Reason for Consult Date of Consultation: 09/07/19 Reason for Consultation: Hypotension History of Present Illness: The patient is a 74 year old F, with past medical history listed below, who presented to [facility] as a transfer from [facility] on 09/06/2019 secondary to altered mental status. Patient was reportedly transferred under PCU status and was alert and oriented. Patient had reported some change in vision in her right eye without associated constitutional symptoms such as fever, chills, headache, chest pain, shortness of breath, nausea or vomiting. Patient had recently had a paracentesis with 3 L of fluid removal 2 days prior to presentation and dialysis 1 day prior to presentation with 3.5 L removed. By the time patient was evaluated by the hospitalist on the floor, right eye was reportedly back to normal. CT scan showed no acute intracranial findings reportedly at [place]. Patient did have a COVID-19 sent by [facility], but we test everyone. Since being in the intensive care unit, patient has had persistent low blood pressures despite 1.6 L of fluid and 50 g of albumin given by the hospitalist. Patient was initiated on Levophed peripherally and is currently at 10 mcg. Patient has maintained mentation throughout. Patient saturations have been acceptable on 3 L nasal cannula. Patient's map on noninvasive devices have been reading 30s to 50s, but patient has had a palpable radial pulse noted. Patient was not able to answer all of my questions this morning, but stated that she was tired because they have been checking my brain all night. Patient has received NIH is by nursing and they have been chronically 0-1. Patient is a relatively poor historian and has not been very cooperative with my questioning, so a full review of systems could not be completed. Patient is denying any pain or shortness of breath at this time. Patient repeatedly told me all I need to do is get some rest. Patient is reportedly a full code per conversations when she was more awake. Past Medical History Past Medical History (Chronic Problems): Chronic Problems (Last Reviewed 05/23/19 @ 04:[address] Buddy Olson MD) History of GI bleed (Chronic) History of non-ST elevation myocardial infarction (NSTEMI) (Chronic 07/05/16) Atherosclerotic heart disease of [place] coronary artery without angina pectoris (Chronic) Stented coronary artery (Chronic) Cutting Balloon and TAMI (3.0X18 mm Xience) Proximal LAD 04/18/2012; Rotational atherectomy to proximal, id and distal RCA with two overlapping 4.0 X 38 Synergy TAMI ([facility] main) Ascites (Chronic) Pancytopenia (Chronic) Other specified peripheral vascular diseases (Chronic) Afib (Chronic) Congenital coronary artery anomaly (Chronic) Bradycardia (Chronic) Diabetes mellitus, type II (Chronic) Hyperlipidemia (Chronic) Hypothyroidism (Chronic) Anemia in chronic kidney disease (Chronic) Hypertension (Chronic) End stage renal disease on dialysis (Chronic) Medical History: Medical History (Last Reviewed 05/23/19 @ 04:[address] Buddy Olson MD) History of GI bleed (Chronic) Z87.19 History of non-ST elevation myocardial infarction (NSTEMI) (Chronic) Onset Date: 07/05/16 I25.2 Atherosclerotic heart disease of [place] coronary artery without angina pectoris (Chronic) I25.10 Ascites (Chronic) R18.8 Pancytopenia (Chronic) D61.818 Other specified peripheral vascular diseases (Chronic) I73.89 Afib (Chronic) I48.91 Congenital coronary artery anomaly (Chronic) Q24.5 Bradycardia (Chronic) R00.1 Diabetes mellitus, type II (Chronic) E11.9 Hyperlipidemia (Chronic) E78.5 Hypothyroidism (Chronic) E03.9 Anemia in chronic kidney disease (Chronic) N18.9, D63.1 Hypertension (Chronic) I10 End stage renal disease on dialysis (Chronic) N18.6, 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 Skin cancer C44.90 mouth/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, 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 Allergies lisinopril Allergy (Severe, Verified 08/28/19 17:22) Angioedema nebivolol HCl [From Bystolic] Adverse Reaction (Severe, Verified 08/28/19 17:22) bradycardia BRADYCARDIA Home Medications: Ambulatory Orders Medication Instructions Recorded Acetaminophen [Tylenol] 650 mg PO Q6H PRN 08/06/19 Atorvastatin Calcium [Lipitor] 80 mg PO QHS 08/06/19 B Complex W-C No.20/Folic Acid 1 mg PO DAILY 08/06/19 [Virt-Caps Softgel] Calcium Acetate 1 cap PO TIDCM 08/06/19 Cholecalciferol (VIT D3) [Vitamin 5,000 unit PO MOWEFR 08/06/19 D3] Docusate Sodium 100 mg PO BID 08/06/19 Gabapentin [Neurontin] 100 mg PO DAILY 08/06/19 Gabapentin [Neurontin] 200 mg PO DINNER 08/06/19 Insulin Glargine,Hum.rec.anlog 11 unit SUBCUT QHS 08/06/19 [Lantus] Insulin Lispro [Humalog] 0 unit SUBCUT TIDCM 08/06/19 Lactulose [Chronulac] 40 gm PO Q12H PRN PRN 08/06/19 Melatonin 5 mg PO QHS 08/06/19 Midodrine HCl 10 mg PO MOWEFR 08/06/19 Nitroglycerin 0.4 mg SL PRN PRN 08/06/19 Omeprazole 20 mg PO DAILY 08/06/19 Ondansetron [Zofran Odt] 4 mg PO Q6H PRN PRN 08/06/19 Oxycodone HCl 7.5 mg PO Q6H PRN PRN 08/06/19 Ropinirole HCl [Requip] 2 tab PO QHS 08/06/19 Surgical History: Surgical History (Last Reviewed 05/23/19 @ 04:[address] Buddy Olson MD) Stented coronary artery (Chronic) Z95.5 Cutting Balloon and TAMI (3.0X18 mm Xience) Proximal LAD 04/18/2012; Rotational atherectomy to proximal, id and distal RCA with two overlapping 4.0 X 38 Synergy TAMI ([facility] main) History of back surgery Z98.890 LATE 70'S History of colectomy Z90.49 History of hysterectomy Z90.710 History of laparoscopic cholecystectomy Z90.49 History of total right knee replacement Z96.651 Hx of foot surgery Z98.890 S/P left rotator cuff repair Z98.890 history left A-V fistula Surgical History: appendectomy, cholecystectomy, hysterectomy, total knee arthroplasty, - - Left upper extremity fistula, back surgery, colon resection with history of diverticulitis, GI bleed, right knee surgery, right total knee replacement, right foot surgery, left knee surgery, left foot surgery, PCI. Psychiatric History: No pertinent psych hx TAPE MAKER History: No pertinent TAPE MAKER history Lives: With Family Smoking Status: Former smoker Alcohol: None Drugs: None - *Family History Maternal Family History: Family History (Last Reviewed 08/06/19 @ 12:[address] Haleigh Palma MD) Sister Diabetes Heart disease Hypertension Anemia History Items: Cancer - uterine Paternal Family History: Family History (Last Reviewed 08/06/19 @ 12:[address] Haleigh Palma MD) Sister Diabetes Heart disease Hypertension Anemia History Items: Cancer Sibling Family History: Family History (Last Reviewed 08/06/19 @ 12:[address] Haleigh Palma MD) Sister Diabetes Heart disease Hypertension Anemia History Items: Diabetes Review of Systems Unable to obtain accurate/complete ROS d/t: See HPI Objective: CT of the head was not able to be personally reviewed. Documentation from [place] was reportedly negative. Patient did have COVID testing sent to [facility] while at [place]. Patient did have an echocardiogram completed in May of this year showing an EF of 55% with mildly dilated RV and associated systolic dysfunction. Left atrium was mildly enlarged and right atrium was moderately enlarged. Pulmonary artery systolic pressure at that time was 50 mmHg. Patient also had mild to moderate aortic stenosis with a mean gradient of 22 and a peak aortic gradient of 48 mmHg. There was a small pericardial effusion noted at that time. - Physical Exam Vitals/I&O's: Vital Signs Temp Pulse Resp BP Pulse Ox 36.4 C L 76 12 97/41 L 94 04//20 04:00 09/07/19 07:25 09/07/19 07:25 09/07/19 07:25 09/07/19 07:25 Oxygen Flow Rate (L/min) 3 Oxygen Delivery Method Nasal Cannula Weight: 88.9 kg Body Mass Index (BMI) 31.4 Finger Stick Blood Glucose 99 Intake and Output for Last 24 Hours 09/05/19 09/06/19 09/07/19 23:59 23:59 23:59 Intake Total 1415.57 / 1828.07 2371.97 / 2371.97 Output Total 0 / 0 0 / 0 Balance 1415.57 / 1828.07 2371.97 / 2371.97 General: Alert - But falls asleep quickly, Oriented x3, Cooperative - Intermittently, No apparent distress, - - Poor color without true cyanosis HEENT: Atraumatic, PERRLA, EOMI, Normocephalic, - - No scleral icterus or injection noted. Some difficulty with keeping left eye open. Oral: Moist Mucosa, No Gingival or Mucosal Lesions/ Ulcerations Neck: Supple, No Nodes, Trachea Midline, JVD, Right Lungs: No rhonchi, No wheeze, No rales, Diminished Cardiovascular: Normal S1, Normal S2, Bradycardic, Murmur - Grade 2 out of 6 systolic ejection murmur at the right sternal border, No rub noted, No Gallop Abdomen: Bowel Sounds Present, Soft, Non Tender, Non-Distended Extremities: No cyanosis, Edema - 1+ lower extremities, - - Vascular insufficiency changes noted of bilateral lower extremities and hands. Fistula in left upper extremity Skin: - - Dermal thickening noted of the lower extremities. No open wounds appreciated. Musculoskeletal: No Tenderness to Palpation of Joints or Extremities Lymphatic: No Cervical, Supraclavicular, or Inguinal Adenopathy Neurological: - - Possible left-sided facial droop, global weakness and poor cooperation noted. Psych/Mental Status: Flat Affect Laboratory Results 09/06/19 15:20: Ammonia 20.0 09/06/19 18:00: WBC 5.9, RBC 3.52 L, Hgb 10.8 L, Hct 37.2, MCV 105.7 H, MCH 30.7, MCHC 29.0 L, RDW Std Deviation 67.7 H, RDW Coeff of Susan 17.7 H, Plt Count 106 L, MPV 10.0, Differential Comment COMMENT 09/06/19 18:00: Sodium 137, Potassium 3.5, Chloride 100, Carbon Dioxide 30.0, Anion Gap 7, BUN 13, Creatinine 2.65 H, Estim Creat Clear Calc 16.25, Est GFR (MDRD) Af Amer 23 L, Est GFR (MDRD) Non-Af 19 L, BUN/Creatinine Ratio 4.9 L, Glucose 127 H, Calcium 7.2 L, Total Bilirubin 0.30, AST 19, ALT 9 L, Alkaline Phosphatase 188 H, Total Protein 6.5, Albumin 1.7 L, Globulin 4.8 H, Albumin/Globulin Ratio 0.4 L 09/06/19 22:22: POC Glucose 144 H 09/07/19 03:30: WBC 6.3, RBC 3.24 L, Hgb 10.0 L, Hct 34.1 L, MCV 105.2 H, MCH 30.9, MCHC 29.3 L, RDW Std Deviation 66.6 H, RDW Coeff of Susan 17.4 H, Plt Count 106 L, MPV 10.4, Immature Gran % (Auto) 0.600, Neut % (Auto) 64.5, Lymph % (Auto) 23.2, Rhea % (Auto) 8.8, Eos % (Auto) 2.1, Baso % (Auto) 0.8, Absolute Neuts (auto) 4.1, Absolute Lymphs (auto) 1.47, Nucleated RBC % 0, Differential Comment SCANNED, Target Cells RARE, Stomatocytes RARE 09/07/19 03:30: PT 17.6 H, INR 1.5 09/07/19 03:30: Sodium 138, Potassium 3.7, Chloride 101, Carbon Dioxide 31.0, Anion Gap 6, BUN 15, Creatinine 2.96 H, Estim Creat Clear Calc 14.55, Est GFR (MDRD) Af Amer 20 L, Est GFR (MDRD) Non-Af 16 L, BUN/Creatinine Ratio 5.1 L, Glucose 148 H, Calcium 7.8 L, Magnesium 2.0, Total Bilirubin 0.50, AST 15, ALT 8 L, Alkaline Phosphatase 155 H, Total Protein 6.0 L, Albumin 1.9 L, Globulin 4.1, Albumin/Globulin Ratio 0.5 L, Triglycerides 52, Cholesterol < 50, LDL Cholesterol TNP, VLDL Cholesterol 10, HDL Cholesterol 23 L 09/07/19 06:50: Cortisol 11.70 Current Medications Acetaminophen (Tylenol) 650 mg PO Q6H PRN PRN PRN Reason: PAIN (-02/27)/FEVER Atorvastatin Calcium (Lipitor) 80 mg PO QHS [facility] Last Admin: 09/06/19 22:41 Dose: 80 mg Documented by: Calcium Acetate (Phoslo Gel Cap) 667 mg PO TIDCM [facility] Last Admin: 09/07/19 07:41 Dose: 667 mg Documented by: Cholecalciferol (Vitamin D (25mcg)) 5,000 unit PO MoWeFr@1000 [facility] Dextrose (D50w Syringe) 0 gm IV X1 PRN; Protocol PRN Reason: Hypoglycemia Docusate Sodium (Colace) 100 mg PO BID [facility] Last Admin: 09/07/19 07:44 Dose: 100 mg Documented by: Glucagon () 1 mg IM .X1 PRN PRN Reason: Hypoglycemia Hydralazine HCl (Apresoline Iv) 5 mg IV Q30M PRN PRN Reason: to maintain BP goals Hydrocortisone Sodium Succinate (Solu-Cortef) 100 mg IV Q8 [facility] Sodium Chloride () 250 mls @ 15 mls/hr IV .[id number] PRN PRN Reason: Saline Flush Sodium Chloride () 250 mls @ 15 mls/hr IV .[id number] PRN PRN Reason: Additional IVPB Infusion Norepinephrine Bitartrate 8 mg (/ Sodium Chloride) 250 mls @ 9.375 mls/hr CONT INF .[id number] [facility]; Protocol Last Admin: 09/07/19 07:25 Dose: 10 mcg/min, 18.8 mls/hr Documented by: Sodium Chloride () 1,000 mls @ 150 mls/hr IV .[id number] [facility] Last Admin: 09/07/19 07:43 Dose: 150 mls/hr Documented by: Insulin Glargine (Lantus (Bkc)) 11 units SC QHS [facility] Last Admin: 09/06/19 21:58 Dose: Not Given Documented by: Labetalol HCl (Trandate) 10 - 20 mg IV Q10M PRN PRN PRN Reason: to maintain BP goals Lactulose (Chronulac, Cephulac) 40 gm PO Q12 [facility] Last Admin: 09/07/19 07:41 Dose: 40 gm Documented by: Midodrine (Proamatine) 10 mg PO TID [facility] Last Admin: 09/07/19 07:42 Dose: 10 mg Documented by: Multivit/Ca Carb/B Cmplx/FA/Prenat (Nephrocaps, Renaphro) 1 capsule PO DAILY [facility] Last Admin: 09/07/19 07:41 Dose: 1 capsule Documented by: Nitroglycerin (Nitrostat) 0.4 mg SUBLINGUAL Q5M PRN PRN Reason: CARDIAC/CHEST PAIN Ondansetron HCl (Zofran) 4 mg IV Q8H PRN PRN PRN Reason: NAUSEA/VOMITING Ondansetron HCl (Zofran Odt) 4 mg PO Q6H PRN PRN PRN Reason: NAUSEA/VOMITING Pantoprazole Sodium (Protonix) 20 mg PO DAILY [facility] Last Admin: 09/07/19 07:41 Dose: 20 mg Documented by: Pramipexole Dihydrochloride (Mirapex) 0.25 mg PO QHS [facility] Last Admin: 09/06/19 21:28 Dose: Not Given Documented by: Sodium Chloride () 10 - 40 ml IV UD PRN PRN Reason: SALINE FLUSH Last Admin: 09/07/19 03:36 Dose: 40 ml Documented by: Assessment/Plan RECOMMENDATIONS: 1. Attempt arterial line placement 2. Add stress dose steroids 3. Cautious volume resuscitation 4. Await culture data 5. Wean oxygen as tolerated 6. Monitor blood sugars closely IMPRESSIONS: 1. Hypotension Unclear if reported blood pressures are accurate. Patient does have advanced renal and liver disease. Will attempt to place an arterial line for better with dynamic evaluation. Despite reported map pressure in the 30s, patient has a palpable radial pulse and good waveform on her pulse oximeter. Wean Levophed as tolerated. Patient's cortisol level is not as high as what would be expected for hypotension. Patient will be placed on stress dose steroids. Patient may also have an element of hypovolemic intravascular state. Patient did have significant volume removal. Would not be too aggressive with fluid boluses given patient's anuric state. Agree with holding baseline hypertensive medications. Patient has not had a fever or leukocytosis despite greater than 24 hours without antibiotics. We will continue to monitor off of antibiotics for now, but if patient develops fever or other constitutional symptoms, empiric antibiotics would be appropriate. No central line will be placed at this time as it is unclear the patient is truly hypotensive and she should respond to stress dose steroids in the next 24 hours. 2. Acute metabolic encephalopathy May be secondary to hypotension versus volume depletion. Patient was not very cooperative on my exam, but has been up all night with neuro checks secondary to concerns for TIA. Patient would likely benefit from an MRI, but would have to coordinate with hemodialysis. Patient does have a history of GI bleed and acute on chronic anemia, so would not proceed with anticoagulation or aspirin therapy at this time. 3. End-stage renal disease on hemodialysis Patient's normal is Sunday, Sunday and Sunday. Patient reportedly had a normal dialysis prior to presentation. 4. Cirrhosis/anemia of chronic disease/hypertension/hyperlipidemia/A. fib/coronary artery disease/cor pulmonale/diabetes mellitus type 2/advanced age Complicates care, management, recovery and prognosis. Despite multiple comorbidities, patient continues to want full CODE STATUS. Heart rate is well controlled at this time. Will need to watch blood sugars closely as patient will be at risk for hypoglycemia given decreased p.o. intake on basal insulin. No indication for transfusion at this time. Patient has a COVID test pending, but no clinical criteria to suggest COVID at this time. Will need to contact [facility] for results. TIME: 45 minutes critical care time spent addressing patient's hypotension, encephalopathy, multiple comorbidities, review of all data and collaboration with care team (7:30 AM to 8:45 AM) [id number]: [id number] Critical care first hour
[2019-09-07] MEDS: Hydrocortisone Sod Succinate 100 MG/2 ML Vial IV ×3 (08:29→21:15)
--- NOTE | 2019-09-07 09:44 | PN_ITS ---
Subjective: Patient seen and examined. Blood pressures remain low throughout the night. Patient has however remained alert and conscious. She received another dose of IV albumin 25 gram overnight and has been on IVF NS @ 150cc. She hasnt had any fever or chills, and had no complaints this morning. She said she felt much better than when she was admitted. Blood pressure has fluctuated between the 60s and 100 systolic overnight. Her diastolic blood pressure was in the 20s and 30s systolic and this did not fit with the clinical picture as she has not been tachycardic no lightheaded or dizzy and has maintained her mentation throughout. 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 Discussed with critical care and she is to have an arterial line placed today for more adequate BP monitoring. Vitals/I&O's: Vital Signs Temp Pulse Resp BP Pulse Ox 97.6 F L 76 12 97/41 L 94 09/07/19 04:00 09/07/19 07:25 09/07/19 07:25 09/07/19 07:25 09/07/19 07:25 Oxygen Flow Rate (L/min) 3 Oxygen Delivery Method Nasal Cannula Weight: 195 lb 15.855 oz Body Mass Index (BMI) 31.4 Finger Stick Blood Glucose 99 Intake and Output for Last 24 Hours 09/05/19 09/06/19 09/07/19 23:59 23:59 23:59 Intake Total 1415.57 / 1828.07 2371.97 / 2371.97 Output Total 0 / 0 0 / 0 Balance 1415.57 / 1828.07 2371.97 / 2371.97 General: Alert, Oriented x3, Cooperative, No apparent distress, HEENT: Atraumatic, PERRLA, EOMI, Normocephalic Oral: Dry Mucosa Neck: Supple, No JVD, Negative Carotid Bruits Lungs: Clear to auscultation, Normal air movement, No rhonchi, No wheeze, No rales Cardiovascular: Regular rate, Regular Rhythm, Normal S1, Normal S2, No murmurs Abdomen: Bowel Sounds Present, Soft, No Hepato-splenomegaly, - - distended, positive fluid thrill from ascites. Clean dressing over right lower quadrant region-site of last paracentesis Extremities: No edema, Capillary Refill Less than 3 Seconds, distal pulses are weak but palpable - - AV fistula with good thrill in LUE; Skin: No rashes, No breakdown Musculoskeletal: No Tenderness to Palpation of Joints or Extremities Lymphatic: No Cervical, Supraclavicular, or Inguinal Adenopathy Neurological: Cranial nerves II-XII grossly intact, Neuro grossly intact, Motor Exam 5/5 strength throughout Psych/Mental Status: Normal Affect, Appropriate, Alert and oriented to time, place, person, mood and affect Laboratory Results 09/06/19 15:20: Ammonia 20.0 09/06/19 18:00: WBC 5.9, RBC 3.52 L, Hgb 10.8 L, Hct 37.2, MCV 105.7 H, MCH 30.7, MCHC 29.0 L, RDW Std Deviation 67.7 H, RDW Coeff of Susan 17.7 H, Plt Count 106 L, MPV 10.0, Differential Comment COMMENT 09/06/19 18:00: Sodium 137, Potassium 3.5, Chloride 100, Carbon Dioxide 30.0, Anion Gap 7, BUN 13, Creatinine 2.65 H, Estim Creat Clear Calc 16.25, Est GFR (MDRD) Af Amer 23 L, Est GFR (MDRD) Non-Af 19 L, BUN/Creatinine Ratio 4.9 L, Glucose 127 H, Calcium 7.2 L, Total Bilirubin 0.30, AST 19, ALT 9 L, Alkaline Phosphatase 188 H, Total Protein 6.5, Albumin 1.7 L, Globulin 4.8 H, Albumin/Globulin Ratio 0.4 L 09/06/19 22:22: POC Glucose 144 H 09/07/19 03:30: WBC 6.3, RBC 3.24 L, Hgb 10.0 L, Hct 34.1 L, MCV 105.2 H, MCH 30.9, MCHC 29.3 L, RDW Std Deviation 66.6 H, RDW Coeff of Susan 17.4 H, Plt Count 106 L, MPV 10.4, Immature Gran % (Auto) 0.600, Neut % (Auto) 64.5, Lymph % (Aut o) 23.2, [place] % (Auto) 8.8, Eos % (Auto) 2.1, Baso % (Auto) 0.8, Absolute Neuts (auto) 4.1, Absolute Lymphs (auto) 1.47, Nucleated RBC % 0, Differential Comment SCANNED, Target Cells RARE, Stomatocytes RARE 09/07/19 03:30: PT 17.6 H, INR 1.5 09/07/19 03:30: Sodium 138, Potassium 3.7, Chloride 101, Carbon Dioxide 31.0, Anion Gap 6, BUN 15, Creatinine 2.96 H, Estim Creat Clear Calc 14.55, Est GFR (MDRD) Af Amer 20 L, Est GFR (MDRD) Non-Af 16 L, BUN/Creatinine Ratio 5.1 L, Glucose 148 H, Calcium 7.8 L, Magnesium 2.0, Total Bilirubin 0.50, AST 15, ALT 8 L, Alkaline Phosphatase 155 H, Total Protein 6.0 L, Albumin 1.9 L, Globulin 4.1, Albumin/Globulin Ratio 0.5 L, Triglycerides 52, Cholesterol < 50, LDL Cholesterol TNP, VLDL Cholesterol 10, HDL Cholesterol 23 L 09/07/19 06:50: Cortisol 11.70 Current Medications Acetaminophen (Tylenol) 650 mg PO Q6H PRN PRN PRN Reason: PAIN ()/FEVER Atorvastatin Calcium (Lipitor) 80 mg PO QHS [facility] Last Admin: 09/06/19 22:41 Dose: 80 mg Documented by: Calcium Acetate (Phoslo Gel Cap) 667 mg PO TIDCM [facility] Last Admin: 09/07/19 07:41 Dose: 667 mg Documented by: Cholecalciferol (Vitamin D (25mcg)) 5,000 unit PO MoWeFr@1000 [facility] Dextrose (D50w Syringe) 0 gm IV X1 PRN; Protocol PRN Reason: Hypoglycemia Docusate Sodium (Colace) 100 mg PO BID [facility] Last Admin: 09/07/19 07:44 Dose: 100 mg Documented by: Glucagon () 1 mg IM .X1 PRN PRN Reason: Hypoglycemia Hydralazine HCl (Apresoline Iv) 5 mg IV Q30M PRN PRN Reason: to maintain BP goals Hydrocortisone Sodium Succinate (Solu-Cortef) 100 mg IV Q8 [facility] Last Admin: 09/07/19 08:29 Dose: 100 mg Documented by: Sodium Chloride () 250 mls @ 15 mls/hr IV .[id number] PRN PRN Reason: Saline Flush Sodium Chloride () 250 mls @ 15 mls/hr IV .[id number] PRN PRN Reason: Additional IVPB Infusion Norepinephrine Bitartrate 8 mg (/ Sodium Chloride) 250 mls @ 9.375 mls/hr CONT INF .[id number] [facility]; Protocol Last Admin: 09/07/19 07:25 Dose: 10 mcg/min, 18.8 mls/hr Documented by: Sodium Chloride () 1,000 mls @ 150 mls/hr IV .Q6H40M [facility] Last Admin: 09/07/19 07:43 Dose: 150 mls/hr Documented by: Insulin Glargine (Lantus (Bkc)) 11 units SC QHS [facility] Last Admin: 09/06/19 21:58 Dose: Not Given Documented by: Labetalol HCl (Trandate) 10 - 20 mg IV Q10M PRN PRN PRN Reason: to maintain BP goals Lactulose (Chronulac, Cephulac) 40 gm PO Q12 [facility] Last Admin: 09/07/19 07:41 Dose: 40 gm Documented by: Midodrine (Proamatine) 10 mg PO TID [facility] Last Admin: 09/07/19 07:42 Dose: 10 mg Documented by: Multivit/Ca Carb/B Cmplx/FA/Prenat (Nephrocaps, Renaphro) 1 capsule PO DAILY [facility] Last Admin: 09/07/19 07:41 Dose: 1 capsule Documented by: Nitroglycerin (Nitrostat) 0.4 mg SUBLINGUAL Q5M PRN PRN Reason: CARDIAC/CHEST PAIN Ondansetron HCl (Zofran) 4 mg IV Q8H PRN PRN PRN Reason: NAUSEA/VOMITING Ondansetron HCl (Zofran Odt) 4 mg PO Q6H PRN PRN PRN Reason: NAUSEA/VOMITING Pantoprazole Sodium (Protonix) 20 mg PO DAILY [facility] Last Admin: 09/07/19 07:41 Dose: 20 mg Documented by: Pramipexole Dihydrochloride (Mirapex) 0.25 mg PO QHS [facility] Last Admin: 09/06/19 21:28 Dose: Not Given Documented by: Sodium Chloride () 10 - 40 ml IV UD PRN PRN Reason: SALINE FLUSH Last Admin: 09/07/19 03:36 Dose: 40 ml Documented by: STROKE Vital Signs/Narrative: Vital Signs Pulse Resp BP Pulse Ox 09/07/19 07:25 76 12 97/41 L 94 09/07/19 07:05 77 16 89/25 L 96 09/07/19 05:53 15 91/37 L 95 Medical Necessity - Tobacco Use Smoking Status: Former smoker Assessment/Plan 74-year-old female admitted with a complaint of altered mental status 1. Acute metabolic encephalopathy * likely due to hypovolemic shock * i think it is less due to hepatic encephalopathy, as ammonia was only 20 * her BP has been running low; on 10mcg of IV levophed and IVF as well * She has remained stable clinically, and is maintaining her mentation. * shock is likely due to her having had paracentesis and dialysis back to back. * received 2 bags of IV albumin 25grams * critical care on board; patient is a vasculopath, and arterial line placement was unsuccessful this morning. * discussed [facility] critical care, Midodrine added on, and stress dose steroids added on. * critical care want to hold off on central line for now * patient;s daughter called and per discussion with nurse, she said patient;s BP usually runs in the 80s systolic as baseline. * critical care on board * * 2. Probable TIA * Had blurred vision in right eye which resolved after about 2 hours. * Patient hasnt had any acute neurological symptoms since admission * CT of the brain done at [place] at time of presentation was negative. Will check MRI on Sunday. * NIH has been 0 * neurology consulted- to see after MRI is done. * Has a history of GI bleed and acute on chronic anemia so patient is not on aspirin. * on statin. * 3. Hypovolemic shock * as under 1. * 4. ESRD on hemodialysis: Has dialysis Wednesdays. nephrology on board 5. Ascites due to liver cirrhosis: Had paracentesis 3 days ago. Has paracentesis every 2 weeks. On lactulose. 6. Anemia of chronic disease: Stable. Hb is 10 7. Hypertension and hyperlipidemia: * On statin. * BP meds on hold o/a of hypotension. * 8. History of A. fib: Rate controlled. Will monitor. 9. Type 2 diabetes mellitus: On Lantus 11 units nightly. Insulin sliding scale. Accu-Cheks AC at bedtime. DVT prophylaxis: SCDs CODE STATUS: Full code * Inpatient E&M: 59503 Subs Hosp L3
--- NOTE | 2019-09-07 10:25 | PCM.CONS.R ---
Consultation - Renal 09/07/19 PCP/ Referring MD: Requesting physician: Dr Benavidez Primary care physician: Davy Coleman MD Reason for Consultation:: End-stage renal failure on hemodialysis Sunday, Sunday, Sunday - History of Present Illness History of Present Illness: The patient is a 74 year old F well known to me with ESRD due to diabetes on hemodialysis Sunday, Sunday, Sunday at [place] dialysis unit last dialysis on Sunday was admitted on 09/05 for hypotension and altered mental status. She was transferred from [facility]. She was recently discharged from the [facility] and currently lives with her sister. She is not able to manage her own home medications. She does not know what she takes at home. Her overall medical condition has been deteriorating past several weeks to months. However patient had refused hospice care. She has chronic hypotension with systolic blood pressure in the 90s at the dialysis center. She has been instructed to take her midodrine before her dialysis however it appears that she has not since she has low blood pressures with her dialysis treatments. Currently she is in intensive care unit on Levophed for blood pressures in the 60s to 80s systolic. She is lethargic but arousable with verbal stimuli. She is unable to provide history. Discussed case with nursing staff. COVID pending from [facility]. She has a history of ascites from liver cirrhosis requiring frequent paracentesis, last done a week ago with removal of about 3 L of fluid. Which is the norm for her. She also had dialysis 1 day ago with removal of about 3.5 L of fluid which she also states is her baseline. She says the loss of vision in her right eye resolved after about 2 hours but denies any vision problems now. She denies falling but had a syncopal episode at home according to the patient. Ammonia level was 20. [] - Allergies Allergies: Allergies lisinopril Allergy (Severe, Verified 08/28/19 17:22) Angioedema nebivolol HCl [From [facility]] Adverse Reaction (Severe, Verified 08/28/19 17:22) bradycardia BRADYCARDIA - Current Medications Current Medications: Current Medications Acetaminophen (Tylenol) 650 mg PO Q6H PRN PRN PRN Reason: PAIN (1-02/27)/FEVER Atorvastatin Calcium (Lipitor) 80 mg PO QHS [facility] Last Admin: 09/06/19 22:41 Dose: 80 mg Documented by: Calcium Acetate (Phoslo Gel Cap) 667 mg PO TIDCM [facility] Last Admin: 09/07/19 07:41 Dose: 667 mg Documented by: Cholecalciferol (Vitamin D (25mcg)) 5,000 unit PO MoWeFr@1000 [facility] Dextrose (D50w Syringe) 0 gm IV X1 PRN; Protocol PRN Reason: Hypoglycemia Docusate Sodium (Colace) 100 mg PO BID [facility] Last Admin: 09/07/19 07:44 Dose: 100 mg Documented by: Glucagon () 1 mg IM .X1 PRN PRN Reason: Hypoglycemia Hydralazine HCl (Apresoline Iv) 5 mg IV Q30M PRN PRN Reason: to maintain BP goals Hydrocortisone Sodium Succinate (Solu-Cortef) 100 mg IV Q8 [facility] Last Admin: 09/07/19 08:29 Dose: 100 mg Documented by: Sodium Chloride () 250 mls @ 15 mls/hr IV .[id number] PRN PRN Reason: Saline Flush Sodium Chloride () 250 mls @ 15 mls/hr IV .[id number] PRN PRN Reason: Additional IVPB Infusion Norepinephrine Bitartrate 8 mg (/ Sodium Chloride) 250 mls @ 9.375 mls/hr CONT INF .[id number] [facility]; Protocol Last Admin: 09/07/19 07:25 Dose: 10 mcg/min, 18.8 mls/hr Documented by: Sodium Chloride () 1,000 mls @ 150 mls/hr IV .Q6H40M [facility] Last Admin: 09/07/19 07:43 Dose: 150 mls/hr Documented by: Insulin Glargine (Lantus (Bkc)) 11 units SC QHS [facility] Last Admin: 09/06/19 21:58 Dose: Not Given Documented by: Labetalol HCl (Trandate) 10 - 20 mg IV Q10M PRN PRN PRN Reason: to maintain BP goals Lactulose (Chronulac, Cephulac) 40 gm PO Q12 [facility] Last Admin: 09/07/19 07:41 Dose: 40 gm Documented by: Midodrine (Proamatine) 10 mg PO TID [facility] Last Admin: 09/07/19 07:42 Dose: 10 mg Documented by: Multivit/Ca Carb/B Cmplx/FA/Prenat (Nephrocaps, Renaphro) 1 capsule PO DAILY [facility] Last Admin: 09/07/19 07:41 Dose: 1 capsule Documented by: Nitroglycerin (Nitrostat) 0.4 mg SUBLINGUAL Q5M PRN PRN Reason: CARDIAC/CHEST PAIN Ondansetron HCl (Zofran) 4 mg IV Q8H PRN PRN PRN Reason: NAUSEA/VOMITING Ondansetron HCl (Zofran Odt) 4 mg PO Q6H PRN PRN PRN Reason: NAUSEA/VOMITING Pantoprazole Sodium (Protonix) 20 mg PO DAILY [facility] Last Admin: 09/07/19 07:41 Dose: 20 mg Documented by: Pramipexole Dihydrochloride (Mirapex) 0.25 mg PO QHS [facility] Last Admin: 09/06/19 21:28 Dose: Not Given Documented by: Sodium Chloride () 10 - 40 ml IV UD PRN PRN Reason: SALINE FLUSH Last Admin: 09/07/19 03:36 Dose: 40 ml Documented by: - Past Medical History Past Medical History (Chronic Problems): Chronic Problems (Last Reviewed 05/23/19 @ 04:[address] Buddy Olson MD) History of GI bleed (Chronic) History of non-ST elevation myocardial infarction (NSTEMI) (Chronic 07/05/16) Atherosclerotic heart disease of [place] coronary artery without angina pectoris (Chronic) Stented coronary artery (Chronic) Cutting Balloon and TAMI (3.0X18 mm Xience) Proximal LAD 04/18/2012; Rotational atherectomy to proximal, id and distal RCA with two overlapping 4.0 X 38 Synergy TAMI ([facility] main) Ascites (Chronic) Pancytopenia (Chronic) Other specified peripheral vascular diseases (Chronic) Afib (Chronic) Congenital coronary artery anomaly (Chronic) Bradycardia (Chronic) Diabetes mellitus, type II (Chronic) Hyperlipidemia (Chronic) Hypothyroidism (Chronic) Anemia in chronic kidney disease (Chronic) Hypertension (Chronic) End stage renal disease on dialysis (Chronic) - Past Surgical History Surgical History: appendectomy, cholecystectomy, hysterectomy, total knee arthroplasty, - - Left upper extremity fistula, back surgery, colon resection with history of diverticulitis, GI bleed, right knee surgery, right total knee replacement, right foot surgery, left knee surgery, left foot surgery, PCI. - Social History Smoking Status: Former smoker Alcohol: None Drugs: None - Family History Maternal Family History: Family History (Last Reviewed 08/06/19 @ 12:[address] Haleigh Palma MD) Sister Diabetes Heart disease Hypertension Anemia History Items: Cancer - uterine Paternal Family History: Family History (Last Reviewed 08/06/19 @ 12:[address] Haleigh Palma MD) Sister Diabetes Heart disease Hypertension Anemia History Items: Cancer Sibling Family History: Family History (Last Reviewed 08/06/19 @ 12:[address] Haleigh Palma MD) Sister Diabetes Heart disease Hypertension Anemia History Items: Diabetes Review of Systems Constitutional: Reports: Anorexia, Weakness, Fatigue. Denies: Chills, Fever HEENT: Reports: Visual Changes. Denies: Head Aches Cardiovascular: Reports: Edema - Chronic Respiratory: Denies: Cough, Shortness of Breath Gastrointestinal: Denies: Nausea, Vomiting Neurological: Reports: - - Lightheadedness questionable syncopal episode Psychiatric: Reports: Anxiety, Depression Hematologic/ Lymphatic: Reports: Anemia - Physical Exam Vitals/I&O's: Vital Signs Temp Pulse Resp BP Pulse Ox 97.6 F L 76 12 97/41 L 94 09/07/19 04:00 09/07/19 07:25 09/07/19 07:25 09/07/19 07:25 09/07/19 07:25 Oxygen Flow Rate (L/min) 3 Oxygen Delivery Method Nasal Cannula Weight: 88.9 kg Body Mass Index (BMI) 31.4 Finger Stick Blood Glucose 99 Intake and Output for Last 24 Hours 09/05/19 09/06/19 09/07/19 23:59 23:59 23:59 Intake Total 1415.57 / 1828.07 2371.97 / 2371.97 Output Total 0 / 0 0 / 0 Balance 1415.57 / 1828.07 2371.97 / 2371.97 General: Disoriented, Lethargic, - - Unable to provide history Lungs: Clear to auscultation Cardiovascular: Irregular Rate - A. fib on monitor, Murmur Abdomen: Bowel Sounds Present, Soft, Non Tender, Distended - Improved with paracentesis, Obese Extremities: Edema - Mild bilateral lower extremity improved from baseline, upper extremity edema, AV fistula with good thrill and bruit left upper arm Skin: - - Ecchymosis Psych/Mental Status: Flat Affect, - - Lethargic Laboratory Results 09/06/19 15:20: Ammonia 20.0 09/06/19 18:00: WBC 5.9, RBC 3.52 L, Hgb 10.8 L, Hct 37.2, MCV 105.7 H, MCH 30.7, MCHC 29.0 L, RDW Std Deviation 67.7 H, RDW Coeff of Susan 17.7 H, Plt Count 106 L, MPV 10.0, Differential Comment COMMENT 09/06/19 18:00: Sodium 137, Potassium 3.5, Chloride 100, Carbon Dioxide 30.0, Anion Gap 7, BUN 13, Creatinine 2.65 H, Estim Creat Clear Calc 16.25, Est GFR (MDRD) Af Amer 23 L, Est GFR (MDRD) Non-Af 19 L, BUN/Creatinine Ratio 4.9 L, Glucose 127 H, Calcium 7.2 L, Total Bilirubin 0.30, AST 19, ALT 9 L, Alkaline Phosphatase 188 H, Total Protein 6.5, Albumin 1.7 L, Globulin 4.8 H, Albumin/Globulin Ratio 0.4 L 09/06/19 22:22: POC Glucose 144 H 09/07/19 03:30: WBC 6.3, RBC 3.24 L, Hgb 10.0 L, Hct 34.1 L, MCV 105.2 H, MCH 30.9, MCHC 29.3 L, RDW Std Deviation 66.6 H, RDW Coeff of Susan 17.4 H, Plt Count 106 L, MPV 10.4, Immature Gran % (Auto) 0.600, Neut % (Auto) 64.5, Lymph % (Auto) 23.2, [place] % (Auto) 8.8, Eos % (Auto) 2.1, Baso % (Auto) 0.8, Absolute Neuts (auto) 4.1, Absolute Lymphs (auto) 1.47, Nucleated RBC % 0, Differential Comment SCANNED, Target Cells RARE, Stomatocytes RARE 09/07/19 03:30: PT 17.6 H, INR 1.5 09/07/19 03:30: Sodium 138, Potassium 3.7, Chloride 101, Carbon Dioxide 31.0, Anion Gap 6, BUN 15, Creatinine 2.96 H, Estim Creat Clear Calc 14.55, Est GFR (MDRD) Af Amer 20 L, Est GFR (MDRD) Non-Af 16 L, BUN/Creatinine Ratio 5.1 L, Glucose 148 H, Calcium 7.8 L, Magnesium 2.0, Total Bilirubin 0.50, AST 15, ALT 8 L, Alkaline Phosphatase 155 H, Total Protein 6.0 L, Albumin 1.9 L, Globulin 4.1, Albumin/Globulin Ratio 0.5 L, Triglycerides 52, Cholesterol < 50, LDL Cholesterol TNP, VLDL Cholesterol 10, HDL Cholesterol 23 L 09/07/19 06:50: Cortisol 11.70 Current Medications Acetaminophen (Tylenol) 650 mg PO Q6H PRN PRN PRN Reason: PAIN ()/FEVER Atorvastatin Calcium (Lipitor) 80 mg PO QHS [facility] Last Admin: 09/06/19 22:41 Dose: 80 mg Documented by: Calcium Acetate (Phoslo Gel Cap) 667 mg PO TIDCM [facility] Last Admin: 09/07/19 07:41 Dose: 667 mg Documented by: Cholecalciferol (Vitamin D (25mcg)) 5,000 unit PO MoWeFr@1000 [facility] Dextrose (D50w Syringe) 0 gm IV X1 PRN; Protocol PRN Reason: Hypoglycemia Docusate Sodium (Colace) 100 mg PO BID [facility] Last Admin: 09/07/19 07:44 Dose: 100 mg Documented by: Glucagon () 1 mg IM .X1 PRN PRN Reason: Hypoglycemia Hydralazine HCl (Apresoline Iv) 5 mg IV Q30M PRN PRN Reason: to maintain BP goals Hydrocortisone Sodium Succinate (Solu-Cortef) 100 mg IV Q8 [facility] Last Admin: 09/07/19 08:29 Dose: 100 mg Documented by: Sodium Chloride () 250 mls @ 15 mls/hr IV .[id number] PRN PRN Reason: Saline Flush Sodium Chloride () 250 mls @ 15 mls/hr IV .[id number] PRN PRN Reason: Additional IVPB Infusion Norepinephrine Bitartrate 8 mg (/ Sodium Chloride) 250 mls @ 9.375 mls/hr CONT INF .[id number] [facility]; Protocol Last Admin: 04/19/20 07:25 Dose: 10 mcg/min, 18.8 mls/hr Documented by: Sodium Chloride () 1,000 mls @ 150 mls/hr IV .Q6H40M [facility] Last Admin: 09/07/19 07:43 Dose: 150 mls/hr Documented by: Insulin Glargine (Lantus (Bkc)) 11 units SC QHS [facility] Last Admin: 09/06/19 21:58 Dose: Not Given Documented by: Labetalol HCl (Trandate) 10 - 20 mg IV Q10M PRN PRN PRN Reason: to maintain BP goals Lactulose (Chronulac, Cephulac) 40 gm PO Q12 [facility] Last Admin: 09/07/19 07:41 Dose: 40 gm Documented by: Midodrine (Proamatine) 10 mg PO TID [facility] Last Admin: 09/07/19 07:42 Dose: 10 mg Documented by: Multivit/Ca Carb/B Cmplx/FA/Prenat (Nephrocaps, Renaphro) 1 capsule PO DAILY [facility] Last Admin: 09/07/19 07:41 Dose: 1 capsule Documented by: Nitroglycerin (Nitrostat) 0.4 mg SUBLINGUAL Q5M PRN PRN Reason: CARDIAC/CHEST PAIN Ondansetron HCl (Zofran) 4 mg IV Q8H PRN PRN PRN Reason: NAUSEA/VOMITING Ondansetron HCl (Zofran Odt) 4 mg PO Q6H PRN PRN PRN Reason: NAUSEA/VOMITING Pantoprazole Sodium (Protonix) 20 mg PO DAILY [facility] Last Admin: 09/07/19 07:41 Dose: 20 mg Documented by: Pramipexole Dihydrochloride (Mirapex) 0.25 mg PO QHS [facility] Last Admin: 09/06/19 21:28 Dose: Not Given Documented by: Sodium Chloride () 10 - 40 ml IV UD PRN PRN Reason: SALINE FLUSH Last Admin: 09/07/19 03:36 Dose: 40 ml Documented by: Assessment/Plan 1. ESRD on hemodialysis Sunday, Sunday, Sunday. Will arrange hemodialysis tomorrow. Overall prognosis poor however patient has declined hospice in the past. 2. Anemia hemoglobin stable 3. Lethargy with altered mental status. Ammonia level normal at 20. She has been more lethargic lately at baseline at the chronic center. We will continue to assess. Respiratory airway stable. 4. Hypotension on pressors. Patient chronically hypotensive. She has required midodrine but doubt that she was taking it lately due to confusion and inability to handle her own medications. 5. Liver cirrhosis with ascites requiring frequent paracentesis.
--- NOTE | 2019-09-07 10:43 | NURSING ---
This RN talked with [facility] on phone regarding consult. Case also discussed with Dr Benavidez. Decision made by Dr Benavidez not to call in MRI staff for MRI of Brain. Will wait until normal MRI hours and obtain imaging and then [facility] is to be notified and reconsulted.
[2019-09-07 12:15] LABS: Bedside Glucose 139 mg/dL (70-110)
[2019-09-07] MEDS: 0.9% Normal Saline 1,000 ML 75 ML IV (12:15)
[2019-09-07 17:07] LABS: Bedside Glucose 157 mg/dL (70-110)
[2019-09-07] MEDS: Pramipexole Di-HCl 0.25 MG Tablet PO (21:13)
[2019-09-07] MEDS: Atorvastatin Calcium 80 MG Tablet PO (21:13)
[2019-09-07] MEDS: oxyCODONE 5 MG Tablet 7.5 MG PO (21:14)
--- NOTE | 2019-09-07 21:15 | NURSING ---
given lactulose and patient immediately spit it out.
--- NOTE | 2019-09-07 22:00 | NURSING ---
patient not cooperative for NIHSS assessment at this time.
[2019-09-08] VITALS (57 sets, daily range): BP systolic 70–170; BP diastolic 14–79; PULSE 59–83; RESP 11–23; TEMP 36–37.2; O2SAT 92–100
--- NOTE | 2019-09-08 00:03 | NURSING ---
patient moaning and yelling out Help me unable to verbalize needs, restless and thrashing in bed, pulling at gowns and cords, disoriented, unable to answers questions, unable to perform NIHSS assessment as patient is uncooperative, MD aware, orders received.
[2019-09-08] MEDS: 0.9% Saline Lock 10 ML Syringe IV (00:15)
[2019-09-08] MEDS: LORazepam 2 MG/ML Syringe 0.5 MG IV ×2 (00:15→00:55)
[2019-09-08 01:01] LABS: Bedside Glucose 201 mg/dL (70-110)
[2019-09-08 01:16] LABS: Bedside Glucose 204 mg/dL (70-110)
[2019-09-08] MEDS: 0.9% Normal Saline 1,000 ML 75 ML IV ×2 (01:35→09:13)
--- NOTE | 2019-09-08 01:55 | NURSING ---
Call received from nursing area supervisor Kendrick has notified us that pt's covid test is negative.
[2019-09-08 04:19] LABS: Absolute Lymphocyte Count 0.78 X10^3/uL (0.83-4.51); Basophil# 0.02 X10^3/uL; Basophil% 0.3 % (0-1); Hematocrit 37.7 % (37-47); Hemoglobin 11.2 g/dL (12.0-15.0); Lymphocyte # 0.78 X10^3/ul (4.0); Mean Corp Hgb Conc 29.7 g/dL (32-36); Mean Corpuscular Hgb 30.4 pg (27.0-32.0); Mean Corpuscular Volume 102.4 fL (81-99); Mean Platelet Vol. 9.7 fl (6.2-12.0); Monocyte# 0.25 X10^3/uL; Monocyte% 3.5 % (0-10); NRBC Flagged by Analyzer 0 % (0-5); Neutrophil # 5.99 X10^3/uL (2.7-7.7); Neutrophil % 84.6 % (47-70); POSITIVE MORPHOLOGY YES; Platelet Count 154 K/mm3 (150-450); RBC Distribution Width CV 17.6 % (11.6-14.6); RBC Distribution Width SD 65.1 fl (35.1-43.9); Red Blood Count 3.68 M/mm3 (4.2-5.4); White Blood Count 7.1 K/mm3 (4.4-11.0)
[2019-09-08 04:20] LABS: Differential Indicated SCAN CRITERIA MET
[2019-09-08 04:33] LABS: Differential Comment SCANNED
[2019-09-08 04:34] LABS: Microcytosis RARE; Polychromasia RARE; Tear Drop Cell RARE
[2019-09-08 04:35] LABS: Albumin, Serum 1.8 g/dL (3.2-5.0); BUN 22 mg/dL (7-18); BUN/Creat Ratio 6.2 RATIO (10-20); Calcium,Total 8.4 mg/dL (8.5-10.1); Chloride 101 mmol/L (98-107); Creatinine, Serum 3.57 mg/dL (0.55-1.02); EST Glomerular Filtration Rate 13 mL/min (>60); Est Glom Filt Rate - Afr Amer 16 mL/min (>60); Estimated Creatinine Clearance 12.06 ml/min; Glucose 205 mg/dL (74-106); Phosphorus 5.2 mg/dL (2.5-4.9); Potassium 4.3 mmol/L (3.5-5.1); Sodium Level 136 mmol/L (136-145)
[2019-09-08] MEDS: Hydrocortisone Sod Succinate 100 MG/2 ML Vial IV (05:17)
--- NOTE | 2019-09-08 06:36 | PN_ITS ---
Subjective: The patient was seen and examined at the bedside this morning. Events from the last 24 hours have been reviewed. The patient is currently afebrile and maintaining appropriate oxygen saturations on 4 L/min. She remains on Levophed at 10 mcg/min to maintain hemodynamic stability. Nursing staff did report that the patient was increasingly disoriented overnight. Although she has been intermittently tolerating lactulose, the patient has not had any bowel movements per her report. The patient remains confused this morning. She did receive IV Ativan overnight. 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 The patient was placed in a dependent position appropriate for central line placement based on the vein to be cannulated. The patient's right IJ was prepped and draped in a sterile fashion. 1% lidocaine was used to anesthetize the surrounding skin area. A triple-lumen catheter was introduced into the right IJ using the Seldinger technique and under ultrasound guidance. The catheter was threaded smoothly over the guidewire and appropriate blood return was obtained. Each lumen of the catheter was evacuated of air and flushed with sterile saline. The catheter was then sutured in place to the skin and a sterile dressing applied. Chest x-ray to confirm appropriate positioning is pending. ULTRASOUND GUIDANCE STATEMENT (Vascular Access): I performed ultrasound image acquisition and interpretation for needle placement during the procedure. The vessel was identified and found to be free of thrombosis by compression [place]. A safe point of entry was marked at the skin in an angle for axis was determined. The needle was guided by obtaining free-flowing fluid and by real- time visualization. Arterial Line Indication: Hemodynamic Monitoring Consent was obtained from: A time-out was completed verifying correct patient, procedure, site, positioning, and special equipment if applicable. The patient's right AC prepped and draped in the sterile fashion. An 18-gauge arrow arterial line was introduced into the brachial artery. The catheter was threaded over the guidewire and the needle was removed with the appropriate pulsatile blood return. The catheter was then sutured in place to the skin and a sterile dressing applied. Perfusion to the extremity distal to the point of catheter insertion was checked and found to be adequate. ULTRASOUND GUIDANCE STATEMENT (Vascular Access): I perform ultrasound image acquisition and interpretation for needle placement during this procedure. The vessel was identified and found to be free of thrombosis by compression technique. A safe point of entry was marked at the skin and then angle for access was determined. The needle was guided by obtaining free-flowing fluid and by real-time visualization. Objective: The patient's most recent lab work, culture data and imaging studies have all been personally reviewed. Blood cultures are pending. General: Alert, Confused, Disoriented HEENT: Atraumatic, Normocephalic Oral: No Gingival or Mucosal Lesions/ Ulcerations Neck: Supple, No Nodes, Trachea Midline, - - Right IJ triple-lumen catheter in place Lungs: No rhonchi, No wheeze, No rales, Diminished Cardiovascular: Normal S1, Normal S2, Irregular Rate, Murmur, Tachycardic Abdomen: Bowel Sounds Present, Soft, Non Tender Extremities: No clubbing, No cyanosis, Edema Skin: No breakdown Musculoskeletal: No Muscle Wasting Lymphatic: No Cervical, Supraclavicular, or Inguinal Adenopathy Neurological: - - No focal deficits. Moving all extremities spontaneously. Psych/Mental Status: Impulsive, Restless Vital Signs Temp Pulse Resp BP Pulse Ox 98.2 F 69 11 L 85/35 L 94 09/08/19 04:00 09/08/19 06:00 09/08/19 06:00 09/08/19 06:00 09/08/19 06:00 Oxygen Flow Rate (L/min) 4 Oxygen Delivery Method Nasal Cannula Weight: 202 lb 9.677 oz Body Mass Index (BMI) 31.4 Finger Stick Blood Glucose 99 Intake and Output for Last 24 Hours 09/06/19 09/07/19 09/08/19 23:59 23:59 23:59 Intake Total 1415.57 / 1828.07 3724.56 / 3743.36 1131.60 / 1131.60 Output Total 0 / 0 0 / 0 0 / 0 Balance 1415.57 / 1828.07 3724.56 / 3743.36 1131.60 / 1131.60 Labs (Last 48 Hours) 09/06/19 09/06/19 09/06/19 15:20 18:00 18:00 WBC 5.9 RBC 3.52 L Hgb 10.8 L Hct 37.2 MCV 105.7 H MCH 30.7 MCHC 29.0 L RDW Std Deviation 67.7 H RDW Coeff of Susan 17.7 H Plt Count 106 L MPV 10.0 Immature Gran % (Auto) Neut % (Auto) Lymph % (Auto) [place] % (Auto) Eos % (Auto) Baso % (Auto) Absolute Neuts (auto) Absolute Lymphs (auto) Nucleated RBC % Differential Comment COMMENT Polychromasia Microcytosis Target Cells Tear Drop Cells Stomatocytes PT INR Sodium 137 Potassium 3.5 Chloride 100 Carbon Dioxide 30.0 Anion Gap 7 BUN 13 Creatinine 2.65 H Estim Creat Clear Calc 16.25 Est GFR (MDRD) Af Amer 23 L Est GFR (MDRD) Non-Af 19 L BUN/Creatinine Ratio 4.9 L Glucose 127 H Calcium 7.2 L Phosphorus Magnesium Total Bilirubin 0.30 AST 19 ALT 9 L Alkaline Phosphatase 188 H Ammonia 20.0 Total Protein 6.5 Albumin 1.7 L Globulin 4.8 H Albumin/Globulin Ratio 0.4 L Triglycerides Cholesterol LDL Cholesterol VLDL Cholesterol HDL Cholesterol Cortisol POC Glucose 09/06/19 09/07/19 09/07/19 22:22 03:30 03:30 WBC 6.3 RBC 3.24 L Hgb 10.0 L Hct 34.1 L MCV 105.2 H MCH 30.9 MCHC 29.3 L RDW Std Deviation 66.6 H RDW Coeff of Susan 17.4 H Plt Count 106 L MPV 10.4 Immature Gran % (Auto) 0.600 Neut % (Auto) 64.5 Lymph % (Auto) 23.2 [place] % (Auto) 8.8 Eos % (Auto) 2.1 Baso % (Auto) 0.8 Absolute Neuts (auto) 4.1 Absolute Lymphs (auto) 1.47 Nucleated RBC % 0 Differential Comment SCANNED Polychromasia Microcytosis Target Cells RARE Tear Drop Cells Stomatocytes RARE PT 17.6 H INR 1.5 Sodium Potassium Chloride Carbon Dioxide Anion Gap BUN Creatinine Estim Creat Clear Calc Est GFR (MDRD) Af Amer Est GFR (MDRD) Non-Af BUN/Creatinine Ratio Glucose Calcium Phosphorus Magnesium Total Bilirubin AST ALT Alkaline Phosphatase Ammonia Total Protein Albumin Globulin Albumin/Globulin Ratio Triglycerides Cholesterol LDL Cholesterol VLDL Cholesterol HDL Cholesterol Cortisol POC Glucose 144 H 09/07/19 09/07/19 09/07/19 03:30 06:50 12:04 WBC RBC Hgb Hct MCV MCH MCHC RDW Std Deviation RDW Coeff of Susan Plt Count MPV Immature Gran % (Auto) Neut % (Auto) Lymph % (Auto) [place] % (Auto) Eos % (Auto) Baso % (Auto) Absolute Neuts (auto) Absolute Lymphs (auto) Nucleated RBC % Differential Comment Polychromasia Microcytosis Target Cells Tear Drop Cells Stomatocytes PT INR Sodium 138 Potassium 3.7 Chloride 101 Carbon Dioxide 31.0 Anion Gap 6 BUN 15 Creatinine 2.96 H Estim Creat Clear Calc 14.55 Est GFR (MDRD) Af Amer 20 L Est GFR (MDRD) Non-Af 16 L BUN/Creatinine Ratio 5.1 L Glucose 148 H Calcium 7.8 L Phosphorus Magnesium 2.0 Total Bilirubin 0.50 AST 15 ALT 8 L Alkaline Phosphatase 155 H Ammonia Total Protein 6.0 L Albumin 1.9 L Globulin 4.1 Albumin/Globulin Ratio 0.5 L Triglycerides 52 Cholesterol < 50 LDL Cholesterol TNP VLDL Cholesterol 10 HDL Cholesterol 23 L Cortisol 11.70 POC Glucose 139 H 09/07/19 09/07/19 09/08/19 16:56 21:08 01:03 WBC RBC Hgb Hct MCV MCH MCHC RDW Std Deviation RDW Coeff of Susan Plt Count MPV Immature Gran % (Auto) Neut % (Auto) Lymph % (Auto) [place] % (Auto) Eos % (Auto) Baso % (Auto) Absolute Neuts (auto) Absolute Lymphs (auto) Nucleated RBC % Differential Comment Polychromasia Microcytosis Target Cells Tear Drop Cells Stomatocytes PT INR Sodium Potassium Chloride Carbon Dioxide Anion Gap BUN Creatinine Estim Creat Clear Calc Est GFR (MDRD) Af Amer Est GFR (MDRD) Non-Af BUN/Creatinine Ratio Glucose Calcium Phosphorus Magnesium Total Bilirubin AST ALT Alkaline Phosphatase Ammonia Total Protein Albumin Globulin Albumin/Globulin Ratio Triglycerides Cholesterol LDL Cholesterol VLDL Cholesterol HDL Cholesterol Cortisol POC Glucose 157 H 201 H 204 H 09/08/19 09/08/19 04:00 04:00 WBC 7.1 RBC 3.68 L Hgb 11.2 L Hct 37.7 MCV 102.4 H MCH 30.4 MCHC 29.7 L RDW Std Deviation 65.1 H RDW Coeff of Susan 17.6 H Plt Count 154 MPV 9.7 Immature Gran % (Auto) 0.600 Neut % (Auto) 84.6 H Lymph % (Auto) 11.0 L [place] % (Auto) 3.5 Eos % (Auto) 0.0 Baso % (Auto) 0.3 Absolute Neuts (auto) 6.0 Absolute Lymphs (auto) 0.78 L Nucleated RBC % 0 Differential Comment SCANNED Polychromasia RARE Microcytosis RARE Target Cells Tear Drop Cells RARE Stomatocytes PT INR Sodium 136 Potassium 4.3 Chloride 101 Carbon Dioxide 27.0 Anion Gap BUN 22 H Creatinine 3.57 H Estim Creat Clear Calc 12.06 Est GFR (MDRD) Af Amer 16 L Est GFR (MDRD) Non-Af 13 L BUN/Creatinine Ratio 6.2 L Glucose 205 H Calcium 8.4 L Phosphorus 5.2 H Magnesium Total Bilirubin AST ALT Alkaline Phosphatase Ammonia Total Protein Albumin 1.8 L Globulin Albumin/Globulin Ratio Triglycerides Cholesterol LDL Cholesterol VLDL Cholesterol HDL Cholesterol Cortisol POC Glucose Clinical Impression(s) from Imaging Studies Chest X-Ray 09/08/19 09:05 IMPRESSION: The tip of the right internal jugular venous catheter is in the proximal portion of the superior vena cava. Mild increased markings at the lung bases slightly worse on the left side. Cardiomegaly. Electronically Signed: Eric Mckay, at 9:25 EDT , Service support , Medical Necessity - Tobacco Use Smoking Status: Former smoker Assessment/Plan RECOMMENDATIONS: 1. Start empiric antimicrobials. 2. Place central venous catheter and arterial line. 3. Wean Levophed to maintain a mean arterial pressure at or above 65 mmHg. 4. Avoid sedating medications. 5. Discontinue stress dose steroids. 6. Continue lactulose. 7. Continue hemodialysis per nephrology recommendations. IMPRESSIONS: 1. Shock, distributive versus hypovolemic Unclear if there is a potential source of infection, although SBP would be a possibility, given the patient's need for frequent paracenteses. Given that she did have a rather large volume paracentesis completed, it is certainly possible that a hypovolemic etiology in the setting of cirrhosis is a possibility. For now, I feel it is reasonable to start empiric antimicrobials. Stress dose steroids will be discontinued. A central venous catheter line will be placed along with an arterial line to assess accurately the patient's hemodynamic status. Continue Levophed and wean to maintain a mean arterial pressure at or above 65 mmHg. Continue Midodrine per outpatient regimen. 2. Toxic/metabolic encephalopathy Continue current supportive measures as noted above. Avoid sedating medications. MRI order was placed yesterday and is currently pending. 3. End-stage renal disease on hemodialysis Nephrology currently following to assist with hemodialysis needs. 4. 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 Continue lactulose per home regimen. Ammonia level is within normal limits. TIME: 80 minutes of critical care time, inclusive of procedures, was spent addressing the patient's distributive versus hypovolemic shock, toxic/metabolic encephalopathy, end-stage renal disease, cirrhosis, review of all data and c ollaboration with the care team. ([id number], [id number]) Procedures: 67735 Critial Care Addl 30 Min 9xxxx: [id number] Critical care first hour
[2019-09-08 06:50] LABS: Bedside Glucose 188 mg/dL (70-110)
--- NOTE | 2019-09-08 08:18 | PN_ITS ---
Subjective: Patient has remained afebrile with continued usage of 4 L nasal cannula however patient's blood pressures have remained low with necessity of continued Levophed therapy with increased confusion. Per nursing report patient has had no bowel movements despite usage intermittently of lactulose when she can tolerate it. Given labile blood pressures ICU physician attempting atrial line this morning and noted planned central line placement. Patient per report with recent paracentesis which she intermittently has therefore per discussion with ICU physician vancomycin and Zosyn with pending MRSA screen as concern for infectious etiology for current presentation. Patient denies fevers, chills, nausea, emesis, abdominal pain, chest pain or dyspnea. Objective: Physical Examination: General: Awakens to stimuli, not alert, not able to answer orientation questions but can give some responses to questions, remains intermittently cooperative, laying in the ICU bed, confused, ill-appearing, remains on pressors. Skin: normal color, turgor, no icterus, cyanosis except very staged ecchymoses to extremities, chronic venous stasis skin changes bilateral lower extremities. HEENT: AT/NC, EOM unable to be assessed well given blind L eye and R eye recent vision deficits, PERRLA, dry MM. Lungs: Diminished breath sounds bilaterally, greater bases, no evidence of distress, no rales, ronchi or wheezing. Heart: Regular rate and rhythm; no gallop, rub audible, + SM. Abdomen: soft, no specific grimacing with palpation of the abdomen, does appear mildly distended, currently distant normal bowel sounds. Extremities: no cyanosis, clubbing, chronic bilateral lower extremity venous skin changes. Neurological: Awakens to stimuli, not alert, not able to answer orientation questions but can give some responses to questions, remains intermittently cooperative, laying in the ICU bed, confused, ill-appearing, remains on presso rs; cognitive function not baseline intact; pupils equally reactive to light and accomodation; cranial nerves II-XII grossly normal except those associated with vision as noted, moving all 4 extremities, strength severely globally Miriam secondary to acute presentation. Psychiatric: affect appears mildly agitated, flat, ill appearing, no acute evidence of depressive or anxiety feelings. Vitals/I&O's: Vital Signs Temp Pulse Resp BP Pulse Ox 98.2 F 69 11 L 85/35 L 94 09/08/19 04:00 09/08/19 06:00 09/08/19 06:00 09/08/19 06:00 09/08/19 06:00 Oxygen Flow Rate (L/min) 4 Oxygen Delivery Method Nasal Cannula Weight: 202 lb 9.677 oz Body Mass Index (BMI) 31.4 Finger Stick Blood Glucose 99 Intake and Output for Last 24 Hours 09/06/19 09/07/19 09/08/19 23:59 23:59 23:59 Intake Total 1415.57 / 1828.07 3724.56 / 3743.36 1131.60 / 1131.60 Output Total 0 / 0 0 / 0 0 / 0 Balance 1415.57 / 1828.07 3724.56 / 3743.36 1131.60 / 1131.60 Laboratory Results 09/07/19 12:04: POC Glucose 139 H 09/07/19 16:56: POC Glucose 157 H 09/07/19 21:08: POC Glucose 201 H 09/08/19 01:03: POC Glucose 204 H 09/08/19 04:00: WBC 7.1, RBC 3.68 L, Hgb 11.2 L, Hct 37.7, MCV 102.4 H, MCH 30.4, MCHC 29.7 L, RDW Std Deviation 65.1 H, RDW Coeff of Susan 17.6 H, Plt Count 154, MPV 9.7, Immature Gran % (Auto) 0.600, Neut % (Auto) 84.6 H, Lymph % (Auto) 11.0 L, [place] % (Auto) 3.5, Eos % (Auto) 0.0, Baso % (Auto) 0.3, Absolute Neuts (auto) 6.0, Absolute Lymphs (auto) 0.78 L, Nucleated RBC % 0, Differential Comment SCANNED, Polychromasia RARE, Microcytosis RARE, Tear Drop Cells RARE 09/08/19 04:00: Sodium 136, Potassium 4.3, Chloride 101, Carbon Dioxide 27.0, BUN 22 H, Creatinine 3.57 H, Estim Creat Clear Calc 12.06, Est GFR (MDRD) Af Amer 16 L, Est GFR (MDRD) Non-Af 13 L, BUN/Creatinine Ratio 6.2 L, Glucose 205 H , Calcium 8.4 L, Phosphorus 5.2 H, Albumin 1.8 L 09/08/19 06:39: POC Glucose 188 H 09/08/19 06:40: Ammonia 19.0 09/08/19 06:40: Procalcitonin Pending Current Medications Acetaminophen (Tylenol) 650 mg PO Q6H PRN PRN PRN Reason: PAIN ()/FEVER Atorvastatin Calcium (Lipitor) 80 mg PO QHS [facility] Last Admin: 09/07/19 21:13 Dose: 80 mg Documented by: Calcium Acetate (Phoslo Gel Cap) 667 mg PO TIDCM [facility] Last Admin: 09/07/19 16:33 Dose: Not Given Documented by: Cholecalciferol (Vitamin D (25mcg)) 5,000 unit PO MoWeFr@1000 [facility] Dextrose (D50w Syringe) 0 gm IV X1 PRN; Protocol PRN Reason: Hypoglycemia Docusate Sodium (Colace) 100 mg PO BID [facility] Last Admin: 09/07/19 21:13 Dose: 100 mg Documented by: Glucagon () 1 mg IM .X1 PRN PRN Reason: Hypoglycemia Hydralazine HCl (Apresoline Iv) 5 mg IV Q30M PRN PRN Reason: to maintain BP goals Hydrocortisone Sodium Succinate (Solu-Cortef) 100 mg IV Q8 [facility] Last Admin: 09/08/19 05:17 Dose: 100 mg Documented by: Sodium Chloride () 250 mls @ 15 mls/hr IV .[id number] PRN PRN Reason: Saline Flush Sodium Chloride () 250 mls @ 15 mls/hr IV .[id number] PRN PRN Reason: Additional IVPB Infusion Norepinephrine Bitartrate 8 mg (/ Sodium Chloride) 250 mls @ 9.375 mls/hr CONT INF .[id number] [facility]; Protocol Last Titration: 09/08/19 06:00 Dose: 10 mcg/min, 18.8 mls/hr Documented by: Sodium Chloride () 1,000 mls @ 75 mls/hr IV .[id number] [facility] Last Admin: 09/08/19 01:35 Dose: 75 mls/hr Documented by: Insulin Glargine (Lantus (Bkc)) 11 units SC QHS [facility] Last Admin: 09/07/19 21:34 Dose: 11 units Documented by: Lactulose (Chronulac, Cephulac) 40 gm PO Q12 [facility] Last Admin: 09/07/19 21:13 Dose: 40 gm Documented by: Midodrine (Proamatine) 10 mg PO TID [facility] Last Admin: 09/08/19 06:22 Dose: Not Given Documented by: Multivit/Ca Carb/B Cmplx/FA/Prenat (Nephrocaps, Renaphro) 1 capsule PO DAILY [facility] Last Admin: 09/07/19 07:41 Dose: 1 capsule Documented by: Nitroglycerin (Nitrostat) 0.4 mg SUBLINGUAL Q5M PRN PRN Reason: CARDIAC/CHEST PAIN Ondansetron HCl (Zofran) 4 mg IV Q8H PRN PRN PRN Reason: NAUSEA/VOMITING Ondansetron HCl (Zofran Odt) 4 mg PO Q6H PRN PRN PRN Reason: NAUSEA/VOMITING Pantoprazole Sodium (Protonix) 20 mg PO DAILY [facility] Last Admin: 09/07/19 07:41 Dose: 20 mg Documented by: Pramipexole Dihydrochloride (Mirapex) 0.25 mg PO QHS [facility] Last Admin: 09/07/19 21:13 Dose: 0.25 mg Documented by: Sodium Chloride () 10 - 40 ml IV UD PRN PRN Reason: SALINE FLUSH Last Admin: 09/08/19 00:15 Dose: 20 ml Documented by: STROKE Vital Signs/Narrative: Vital Signs Pulse Resp BP Pulse Ox 09/08/19 06:00 69 11 L 85/35 L 94 09/08/19 05:00 71 11 L 94/62 97 Medical Necessity - Tobacco Use Smoking Status: Former smoker Assessment/Plan The patient is a 74 y/o F w/ PMHx: Chronically blind L Eye, Chronic Hepatic Cirrhosis, Former tobacco use, ESRD on HD, CAD s/p DC w/ PCI, Diabetes mellitus type II, HTN (now chronically hypotensive with HD regimen), HLD, PAF, AOCD, Chronic pancytopenia, GERD w/ Hx GI bleed, RLS who presents to the [facility] ED on 09/06/19 secondary to history of confusion with significantly altered mental status and hypotension transferred as a direct from [facility] patient concurrent history of recent right eye vision changes. 1. Hypotension, Unclear Etiology with Acute Encephalopathy: We will maintain patient in the ICU is ICU status, logistics planner consulted and following, continued on pressor therapies, to needed on Midrin, continued on IV stress dose hydrocortisone with de-escalation per logistics planner discretion, failed attempted arterial line with planned central line placement per discussion with logistics planner, will add vancomycin and Zosyn therapy with pending MRSA screen and de-escalation if appropriate especially given chronic paracentesis patient although no significant abdominal discomfort with palpation, may need to consider paracentesis for sample, blood culture pending, negative COVID testing from [place] obtained prior to her transfer to [facility], will continue to trend CBC, CMP. 2. Right Eye Vision Deficits, Encephalopathy concerning for possible CVA: OSH ED w/ unremarkable CT Head. Recent 05/23/19 ECHO w/ normal LV size, normal LV systolic function, EF 55%, mild focal AV calcifications, mild to moderate aortic stenosis, small pericardial effusion, moderate tricuspid valve insufficiency. Maintained on the ICU, requested MRI Brain, MRA Head and Neck once BP improved, currently on pressors with central line placement planned, ECHO, once mental status improved would plan to initiate PT/OT/Speech/Nutrition evaluation per protocol. Given recent GI bleed, holding ASA, continued on statin. Aspiration and fall precautions. 3. ESRD: Admission BUN/Cr 13/2.65. Will continue dialysis, Sunday, Sunday, Sunday, following with Dr. Crawley who is consulted maintained on Midrin, admittedly poor prognosis with previous recommendation per Dr. Crawley for transition to hospice but patient has declined. 4. AOCD w/ Recent Suspected GI bleed w/ Acute on Chronic Anemia: Recent admission 08/07 with acute on chronic anemia with recent 03/2019 EGD and colonoscopy at that time with diverticulosis with no evidence of active bleeding, PRBC administered at that time with serial trending which remained stable with discharge to group home facility at that time with continued outpatient follow-up. Continued aspirin therapy to be held. 5. CAD: s/p cutting Balloon and TAMI proximal LAD, rotational atherectomy RCA with two overlapping TAMI, aspirin held with recent history of GI bleed in 07/2019, continued on atorvastatin, not on BP regimen given ongoing hypotension with history of de-escalation off all of her hypertensive medications over the last several months. 6. Chronic hepatic cirrhosis, compensated: Admission ammonia level 20, repeat 09/07/2018, likely not etiology for encephalopathy, continue paracenteses as needed and as noted given unclear etiology for current presentation with significant encephalopathy and hypotension requiring pressors with most recent paracentesis on 09/04/19, adding vancomycin and Zosyn with pending MRSA screen for possible SBP. When mentally appropriate may continue to administer lactulose. 7. Diabetes mellitus type II with neuropathy: Will continue home insulin regimen, ADA diet when mental status appropriate, continue gabapentin, Accu checks w/ ISS. 8. Hyperlipidemia: Continue home statin regimen. 9. Restless leg syndrome: We will continue patient Mirapex regimen. 10. GERD: We will maintain on Protonix. 11. DVT Prophylaxis: SCDs, defer chemoprophylaxis given recent GI bleed. 12. Code Status: Full Code. Inpatient E&M: 92630 Subs Hosp L3
[2019-09-08 08:21] LABS: Procalcitonin 0.78 ng/mL (0.00-0.09)
--- NOTE | 2019-09-08 09:05 | RAD_ITS ---
STUDY: X-RAY CHEST REASON FOR EXAM: Female, 74 years old. LINE PLACEMENT TECHNIQUE: Single AP portable view of the chest. COMPARISON: Comparison is made with prior examination dated May 23, 2019. FINDINGS: A right-sided internal venous catheter seen on the right side with the tip in the proximal portion of the superior vena cava. EKG electrodes are seen. Mild degree of increased markings at the right lung base as well as in the lingular segment of the left upper lobe suggestive of scarring and/or atelectasis. There is blunting of the right costophrenic angle. There is moderate cardiac enlargement. Coronary artery stenting. Normal mediastinum and roxy. Normal visualized pulmonary arteries. There is atherosclerotic calcification of the aortic arch with tortuosity. Normal visualized thoracic spine. Normal visualized ribs, clavicles, and shoulders. There is no demonstrated abnormality of the visualized soft tissue structures of the upper abdomen. RAD/CXR for Line Placement IMPRESSION: The tip of the right internal jugular venous catheter is in the proximal portion of the superior vena cava. Mild increased markings at the lung bases slightly worse on the left side. Cardiomegaly. Electronically Signed: Eric Mckay, at 9:25 EDT , Service support ,
--- NOTE | 2019-09-08 09:59 | NURSING ---
Updated pt's on pt condition/line placements.
--- NOTE | 2019-09-08 10:30 | MRI_ITS ---
STUDY: MRA OF THE HEAD WITHOUT CONTRAST REASON FOR EXAM: Female, 74 years old. tia -- altered mental status, rt eye vision loss TECHNIQUE: 3-D [id number] (TOF) imaging was performed with MIPs. The study was performed unenhanced. COMPARISON: None. FINDINGS: Normal bilateral petrous carotid arteries. Plaquing of the right cavernous carotid artery with a normal supraclinoid bifurcation. Plaquing of the left cavernous carotid artery with a normal supraclinoid bifurcation. Normal right A1 segments of the anterior cerebral artery. Normal left A1 segments of the anterior cerebral artery. Anterior communicating artery not visualized consistent with normal variant Normal bilateral A2 segments of the anterior cerebral arteries. Normal right M1 and narrowed M2 segments of the middle cerebral arteries, with a normal M1 bifurcation. Normal left M1 and narrowed M2 segments of the middle cerebral arteries, with a normal M1 bifurcation. Posterior communicating arteries not visualized consistent with normal variant. Normal right vertebral. High-grade stenosis of the distal left vertebral. Normal basilar artery with a normal basilar bifurcation. The visualized bilateral superior cerebellar (SCA) arteries are normal. Normal bilateral P1, P2 and visualized P3 segments of the posterior cerebral arteries. There is no demonstrated aneurysm of the [place]. There is no major vessel occlusion or hemodynamically significant stenosis. There is no demonstrated abnormality of the visualized brain. MRI/MRA Head ONLY without Contrast IMPRESSION: Atherosclerotic disease with most severe involvement of the distal left vertebral and proximal M2 segments of the middle cerebral arteries Electronically Signed: Alan Reyes MD at 17:16 EDT , Service support ,
--- NOTE | 2019-09-08 10:30 | MRI_ITS ---
STUDY: MRI BRAIN WITHOUT CONTRAST REASON FOR EXAM: Female, 74 years old. tia -- acute metabolic encephalopathy, altered mental status, rt eye vision loss , lethargic on renal dialysis TECHNIQUE: Standardized multiplanar fat and water weighted pulse sequences were obtained. COMPARISON: CT of the brain July 19, 2017 FINDINGS: Mild atrophy and periventricular white matter ischemic change without mass effect or restricted diffusion.. Normal bilateral basal ganglia. Normal thalami. There is no extra-axial fluid accumulation. Normal flow voids within the major intracranial circulation suggesting patency by spin echo criteria. Empty sella deformity likely of no significance. Normal, infundibular stalk, optic chiasm and hypothalamus. Normal tectal plate and pineal gland. Slightly increased signal within the mastoid air cells consistent with inflammatory changes likely chronic Normal midbrain, rissa and medulla. Normal cerebellum. Normal basal cisterns. Normal bilateral temporal bones. Normal bilateral internal auditory canals. Post surgical changes of the orbits.. Normal visualized paranasal sinuses. Normal calvarium and skull base. Normal visualized soft tissue structures. Normal visualized upper cervical spine. MRI/Brain without Contrast IMPRESSION: Mild atrophy and periventricular white matter ischemic changes without evidence for acute infarct Electronically Signed: Alan Reyes MD at 16:23 EDT , Service support ,
--- NOTE | 2019-09-08 11:19 | CASEMGMT ---
Addendum entered by Matilde Burton 09/08/19 15:01: SW reviewed previous notes, pt has CM [facility] through [facility]. SW placed a call to Gertrude at [facility] and left message regarding pt's admission to [facility]. Original Note: Social Work Note SW participated in ICU rounds. Pt remains confused, pt's is decision make. Physician states pt should really be Hospice but pt refuses Hospice at this time. SW did complete Palliative Care tool, pt scored a 5. SW to continue to follow in the event pt is agreeable to Hospice/Palliative at discharge. Matilde Burton MICROCOMPUTER SUPPORT SPECIALIST, IT SUPPORT ENGINEER
[2019-09-08] MEDS: fentaNYL 100 MCG/2 ML Ampul 25 MCG IV ×2 (12:34→14:30)
--- NOTE | 2019-09-08 13:56 | CASEMGMT ---
RN CM Note: pt is unable to participate in assessment. Attempted to call , no answer. CM will try again tomorrow to interview for CM assessment. Kyra SANTIAGON RN ACM
--- NOTE | 2019-09-08 14:13 | PN.RENAL_ITS ---
Subjective: seen on dialysis, BP stable with art line. Fluid removal as tolerated. Remains lethargic, moaning. poor historian - Physical Exam Vitals/I&O's: Vital Signs Temp Pulse Resp BP Pulse Ox 97.2 F L 75 12 116/29 L 93 09/08/19 13:00 09/08/19 13:00 09/08/19 13:00 09/08/19 13:00 09/08/19 13:00 Oxygen Flow Rate (L/min) 2 Oxygen Delivery Method Nasal Cannula Weight: 91.9 kg Body Mass Index (BMI) 31.4 Finger Stick Blood Glucose 99 Intake and Output for Last 24 Hours 09/06/19 09/07/19 09/08/19 23:59 23:59 23:59 Intake Total 1415.57 / 1828.07 3724.56 / 3743.36 1805.05 / 1805.05 Output Total 0 / 0 0 / 0 0 / 0 Balance 1415.57 / 1828.07 3724.56 / 3743.36 1805.05 / 1805.05 General: Confused, Disoriented, Lethargic, - - encephalopathic Cardiovascular: Irregular Rate - afib Abdomen: Soft, Distended Extremities: Edema - BLE mild Psych/Mental Status: Agitated Microbiology Past 72 Hours 09/08/19 09:12 Mucosa - Nasopharyngeal Respiratory Panel (PCR) - Final Laboratory Results 09/07/19 16:56: POC Glucose 157 H 09/07/19 21:08: POC Glucose 201 H 09/08/19 01:03: POC Glucose 204 H 09/08/19 04:00: WBC 7.1, RBC 3.68 L, Hgb 11.2 L, Hct 37.7, MCV 102.4 H, MCH 30.4, MCHC 29.7 L, RDW Std Deviation 65.1 H, RDW Coeff of Susan 17.6 H, Plt Count 154, MPV 9.7, Immature Gran % (Auto) 0.600, Neut % (Auto) 84.6 H, Lymph % (Auto) 11.0 L, [place] % (Auto) 3.5, Eos % (Auto) 0.0, Baso % (Auto) 0.3, Absolute Neuts (auto) 6.0, Absolute Lymphs (auto) 0.78 L, Nucleated RBC % 0, Differential Comment SCANNED, Polychromasia RARE, Microcytosis RARE, Tear Drop Cells RARE 09/08/19 04:00: Sodium 136, Potassium 4.3, Chloride 101, Carbon Dioxide 27.0, BUN 22 H, Creatinine 3.57 H, Estim Creat Clear Calc 12.06, Est GFR (MDRD) Af Amer 16 L, Est GFR (MDRD) Non-Af 13 L, BUN/Creatinine Ratio 6.2 L, Glucose 205 H , Calcium 8.4 L, Phosphorus 5.2 H, Albumin 1.8 L 09/08/19 06:39: POC Glucose 188 H 09/08/19 06:40: Ammonia 19.0 09/08/19 06:40: Procalcitonin 0.78 H 09/08/19 13:50: MRSA (PCR) Pending Current Medications Acetaminophen (Tylenol) 650 mg PO Q6H PRN PRN PRN Reason: PAIN (-02/27)/FEVER Atorvastatin Calcium (Lipitor) 80 mg PO QHS [facility] Last Admin: 09/07/19 21:13 Dose: 80 mg Documented by: Calcium Acetate (Phoslo Gel Cap) 667 mg PO TIDCM [facility] Last Admin: 09/08/19 11:08 Dose: Not Given Documented by: Cholecalciferol (Vitamin D (25mcg)) 5,000 unit PO MoWeFr@1000 FARZANA Dextrose (D50w Syringe) 0 gm IV X1 PRN; Protocol PRN Reason: Hypoglycemia Docusate Sodium (Colace) 100 mg PO BID [facility] Last Admin: 09/08/19 11:08 Dose: Not Given Documented by: Glucagon () 1 mg IM .X1 PRN PRN Reason: Hypoglycemia Hydralazine HCl (Apresoline Iv) 5 mg IV Q30M PRN PRN Reason: to maintain BP goals Sodium Chloride () 250 mls @ 15 mls/hr IV .[id number] PRN PRN Reason: Saline Flush Sodium Chloride () 250 mls @ 15 mls/hr IV .[id number] PRN PRN Reason: Additional IVPB Infusion Norepinephrine Bitartrate 8 mg (/ Sodium Chloride) 250 mls @ 9.375 mls/hr CONT INF .[id number] [facility]; Protocol Last Titration: 09/08/19 12:00 Dose: 0 mcg/min, 0 mls/hr Documented by: Sodium Chloride () 1,000 mls @ 75 mls/hr IV .[id number] [facility] Last Admin: 09/08/19 09:13 Dose: 75 mls/hr Documented by: Vancomycin IV Pharmacy to Dose (1 ea/ Sodium Chloride) 500 mls @ 250 mls/hr IV X1 PRN; Protocol PRN Reason: Rx to Dose Piperacillin Sod/Tazobactam (Sod 3.375 gm/ Sodium Chloride) 50 mls @ 12.5 mls/hr IV Q12 [facility] Vancomycin HCl 2,000 mg/ (Sodium Chloride) 540 mls @ 250 mls/hr IV X1 ONE Stop: 09/08/19 17:09 Insulin Glargine (Lantus ([facility])) 11 units SC QHS [facility] Last Admin: 09/07/19 21:34 Dose: 11 units Documented by: Insulin Human Lispro (Humalog Kwikpen ([facility])) 0 unit SC Q6 [facility]; Protocol Lactulose (Chronulac, Cephulac) 40 gm PO Q12 [facility] Last Admin: 09/08/19 11:08 Dose: Not Given Documented by: Midodrine (Proamatine) 10 mg PO TID [facility] Last Admin: 09/08/19 06:22 Dose: Not Given Documented by: Multivit/Ca Carb/B Cmplx/FA/Prenat (Nephrocaps, Renaphro) 1 capsule PO DAILY [facility] Last Admin: 09/07/19 07:41 Dose: 1 capsule Documented by: Nitroglycerin (Nitrostat) 0.4 mg SUBLINGUAL Q5M PRN PRN Reason: CARDIAC/CHEST PAIN Ondansetron HCl (Zofran) 4 mg IV Q8H PRN PRN PRN Reason: NAUSEA/VOMITING Ondansetron HCl (Zofran Odt) 4 mg PO Q6H PRN PRN PRN Reason: NAUSEA/VOMITING Pantoprazole Sodium (Protonix) 20 mg PO DAILY [facility] Last Admin: 09/07/19 07:41 Dose: 20 mg Documented by: Pramipexole Dihydrochloride (Mirapex) 0.25 mg PO QHS [facility] Last Admin: 09/07/19 21:13 Dose: 0.25 mg Documented by: Sodium Chloride () 10 - 40 ml IV UD PRN PRN Reason: SALINE FLUSH Last Admin: 09/08/19 00:15 Dose: 20 ml Documented by: Medical Necessity - Tobacco Use Smoking Status: Former smoker Assessment/Plan 1. ESRD on hemodialysis Sunday, Sunday, Sunday. Seen on dialysis. Proceeding with stable BP, on pressor support 2. Anemia hemoglobin stable 3. Lethargy with altered mental status. 4. Hypotension on pressors. 5. Liver cirrhosis with ascites requiring frequent paracentesis.
--- NOTE | 2019-09-08 14:46 | PCM.RX.CS ---
Consult Pharmacy has been consulted to manage selected antiobiotic: Vancomycin Type of Consult: New start Suspected Infection: Other Labs: Sodium 136 mmol/L (136-145) 09/08/19 04:00 Potassium 4.3 mmol/L (3.5-5.1) 09/08/19 04:00 Chloride 101 mmol/L (98-107) 09/08/19 04:00 Carbon Dioxide 27.0 mmol/L (21.0-32.0) 09/08/19 04:00 Anion Gap 6 (5-15) 09/07/19 03:30 BUN 22 mg/dL (7-18) H 09/08/19 04:00 Creatinine 3.57 mg/dL (0.55-1.02) H 09/08/19 04:00 Est GFR (MDRD) Af Amer 16 mL/min (>60) L 09/08/19 04:00 Est GFR (MDRD) Non-Af 13 mL/min (>60) L 09/08/19 04:00 BUN/Creatinine Ratio 6.2 RATIO (10-20) L 09/08/19 04:00 Glucose 205 mg/dL (74-106) H 09/08/19 04:00 Microbiology: Microbiology 09/08/19 09:12 Mucosa - Nasopharyngeal Respiratory Panel (PCR) - Final Goal Trough: 15-20 mcg/mL Pharmacy Plan for Drug Dosin. Pt is on hemodialysis MWF, will have session today 2. Loading dose of 2000mg ordered to be given after HD today 3. Next dose dependent on next day of HD 4. Pharmacy Service will continue to monitor and adjust dosing as required.
--- NOTE | 2019-09-08 14:49 | PCA ---
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 I WAITIED A FEW HOURS AND NO CALL BACK SO I CALLED AGAIN WAS THEN ALSO SENT TO [facility] WHICH I GOT SENT TO [facility]. I GOT YANIRA VOICEMAIL ONCE AGAIN. 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 LEFT HER A VOICEMAIL STATING i REALLY NEED THESE RESULTS AND NOT GETTING THEM. GOING TO CALL BACK SOON.
[2019-09-08 15:21] LABS: M R Staph aureus DNA By PCR POSITIVE (Negative); Probe Check PASS
--- NOTE | 2019-09-08 15:23 | DIALYSIS ---
HD x 3.5 hours complete. Tolerated tx fairly well. Ran on 3k bath. UF of 2300ml. Used left arm access. [place] removed post tx. Pressure applied x 10 minutes. Fresh gauze and tape applied. Report was given to EDIN Quispe.
[2019-09-08 16:51] LABS: Bedside Glucose 102 mg/dL (70-110)
--- NOTE | 2019-09-08 19:05 | PCA ---
JESUS HEARD BACK FROM [facility] AFTER MULTIPLE TRIES AND MESSAGES LEFT. LET THE COMPENSATION BUSINESS PARTNER KNOW THAT THEY NEED TO FOLLOWUP
[2019-09-08] MEDS: Pramipexole Di-HCl 0.25 MG Tablet PO (22:50)
[2019-09-08] MEDS: Acetaminophen 325 MG Tablet 650 MG PO (22:54)
[2019-09-08] MEDS: Midodrine HCl 5 MG Tablet 10 MG PO (22:55)
--- NOTE | 2019-09-08 23:00 | NURSING ---
Pt more alert and yelling out. This rn attempted to give hs meds, able to give a few meds then pt started to spit meds out. Pt was not cooperative or willing to take rest of hs meds.
[2019-09-08 23:31] LABS: Bedside Glucose 134 mg/dL (70-110)
[2019-09-09] VITALS (54 sets, daily range): BP systolic 91–159; BP diastolic 26–90; PULSE 55–98; RESP 10–24; TEMP 35.7–36.4; O2SAT 90–100
[2019-09-09] MEDS: fentaNYL 100 MCG/2 ML Ampul 25 MCG IV (00:37)
[2019-09-09] MEDS: CHLORHEXIDINE GLUC 2% CLOTH 1 EACH TOWELETTE TOPICAL (02:35)
[2019-09-09] MEDS: 0.9% Normal Saline 1,000 ML 75 ML IV ×2 (02:56→16:38)
[2019-09-09 04:51] LABS: Absolute Lymphocyte Count 1.98 X10^3/uL (0.83-4.51); Absolute Neutrophil Count 7.1 X10^3/uL (2.0-7.7); Basophil# 0.02 X10^3/uL; Basophil% 0.2 % (0-1); Eosinophil# 0.03 X10^3/uL; Eosinophils% 0.3 % (0-5); Hematocrit 35.8 % (37-47); Hemoglobin 10.9 g/dL (12.0-15.0); Lymphocyte # 1.98 X10^3/ul (4.0); Lymphocyte % 19.7 % (19-41); Mean Corp Hgb Conc 30.4 g/dL (32-36); Mean Corpuscular Hgb 30.9 pg (27.0-32.0); Mean Corpuscular Volume 101.4 fL (81-99); Mean Platelet Vol. 8.9 fl (6.2-12.0); Monocyte# 0.83 X10^3/uL; Monocyte% 8.3 % (0-10); NRBC Flagged by Analyzer 0.2 % (0-5); Neutrophil # 7.08 X10^3/uL (2.7-7.7); Neutrophil % 70.6 % (47-70); Platelet Count 132 K/mm3 (150-450); RBC Distribution Width CV 17.6 % (11.6-14.6); RBC Distribution Width SD 63.1 fl (35.1-43.9); Red Blood Count 3.53 M/mm3 (4.2-5.4)
[2019-09-09 05:15] LABS: ALB/GLOB Ratio 0.4 RATIO (0.9-2.4); AST(SGOT) 28 U/L (15-37); Alanine Aminotransfer ALT/SGPT 14 U/L (13-56); Albumin, Serum 1.8 g/dL (3.2-5.0); Alkaline Phosphatase 182 U/L (45-117); Anion Gap 5 (5-15); BUN 17 mg/dL (7-18); BUN/Creat Ratio 6.5 RATIO (10-20); Calcium,Total 8.2 mg/dL (8.5-10.1); Chloride 104 mmol/L (98-107); Creatinine, Serum 2.62 mg/dL (0.55-1.02); EST Glomerular Filtration Rate 19 mL/min (>60); Est Glom Filt Rate - Afr Amer 23 mL/min (>60); Estimated Creatinine Clearance 16.44 ml/min; Globulin 4.6 g/dL (2.2-4.2); Glucose 53 mg/dL (74-106); Phosphorus 3.4 mg/dL (2.5-4.9); Potassium 3.7 mmol/L (3.5-5.1); Protein, Total 6.4 g/dL (6.4-8.2); Sodium Level 138 mmol/L (136-145)
[2019-09-09] MEDS: Dextrose 50%-Water 25 GM/50 ML DISP.SYRIN IV ×2 (05:27→13:36)
[2019-09-09] MEDS: 0.9% Saline Lock 10 ML Syringe IV (05:28)
[2019-09-09 05:35] LABS: Bedside Glucose 40 mg/dL (70-110)
[2019-09-09 05:50] LABS: Bedside Glucose 111 mg/dL (70-110)
[2019-09-09] MEDS: TITRATION PARAMETER CHANGE 1 EACH IV ×2 (06:45→07:02)
--- NOTE | 2019-09-09 06:49 | PCM.PN.INT ---
Subjective: The patient was seen and examined at the bedside this morning. Events from the last 24 hours have been reviewed. The patient is currently afebrile and maintaining appropriate oxygen saturations on 3 L/min via nasal cannula. The patient's vasopressor requirement has been weaned over the last 24 hours. She is currently hemodynamically stable on Levophed at 5 mcg/min. Per nursing report, the patient was extremely agitated and restless overnight. She also reportedly was spitting out her medications without swallowing them. Objective: The patient's most recent lab work, culture data and imaging studies have all been personally reviewed. Brain MRI revealed mild atrophy and periventricular white matter ischemic changes without evidence for acute infarction. Respiratory viral panel was negative. Blood cultures are pending. General: Alert, Cooperative - At times, Confused HEENT: Atraumatic, Normocephalic Oral: No Gingival or Mucosal Lesions/ Ulcerations Neck: Supple, No Nodes, Trachea Midline, - - Right IJ triple-lumen catheter in place Lungs: No rhonchi, No wheeze, No rales, Diminished Cardiovascular: Normal S1, Normal S2, Irregular Rate, Murmur Abdomen: Bowel Sounds Present, Soft, Non Tender, Distended Extremities: No clubbing, No cyanosis, Edema Skin: - - No significant change from previous Musculoskeletal: No Muscle Wasting Neurological: Cranial nerves II-XII grossly intact Psych/Mental Status: Impulsive, Restless Vital Signs Temp Pulse Resp BP Pulse Ox 96.9 F L 67 14 120/42 L 97 09/09/19 05:00 09/09/19 06:45 09/09/19 06:45 09/09/19 06:45 09/09/19 06:45 Oxygen Flow Rate (L/min) 3 Oxygen Delivery Method Nasal Cannula Weight: 201 lb 0.985 oz Body Mass Index (BMI) 31.4 Finger Stick Blood Glucose 99 Intake and Output for Last 24 Hours 09/07/19 09/08/19 09/09/19 23:59 23:59 23:59 Intake Total 3724.56 / 3743.36 3277.21 / 3284.26 341.75 / 341.75 Output Total 0 / 0 0 / 0 0 / 0 Balance 3724.56 / 3743.36 3277.21 / 3284.26 341.75 / 341.75 Labs (Last 48 Hours) 0409/07/19 09/07/19 06:50 12:04 16:56 WBC RBC Hgb Hct MCV MCH MCHC RDW Std Deviation RDW Coeff of Susan Plt Count MPV Immature Gran % (Auto) Neut % (Auto) Lymph % (Auto) [place] % (Auto) Eos % (Auto) Baso % (Auto) Absolute Neuts (auto) Absolute Lymphs (auto) Nucleated RBC % Differential Comment Polychromasia Microcytosis Tear Drop Cells Sodium Potassium Chloride Carbon Dioxide Anion Gap BUN Creatinine Estim Creat Clear Calc Est GFR (MDRD) Af Amer Est GFR (MDRD) Non-Af BUN/Creatinine Ratio Glucose Calcium Phosphorus Magnesium Total Bilirubin AST ALT Alkaline Phosphatase Ammonia Total Protein Albumin Globulin Albumin/Globulin Ratio Procalcitonin Cortisol 11.70 MRSA (PCR) POC Glucose 139 H 157 H 09/07/19 09/08/19 09/08/19 21:08 01:03 04:00 WBC 7.1 RBC 3.68 L Hgb 11.2 L Hct 37.7 MCV 102.4 H MCH 30.4 MCHC 29.7 L RDW Std Deviation 65.1 H RDW Coeff of Susan 17.6 H Plt Count 154 MPV 9.7 Immature Gran % (Auto) 0.600 Neut % (Auto) 84.6 H Lymph % (Auto) 11.0 L [place] % (Auto) 3.5 Eos % (Auto) 0.0 Baso % (Auto) 0.3 Absolute Neuts (auto) 6.0 Absolute Lymphs (auto) 0.78 L Nucleated RBC % 0 Differential Comment SCANNED Polychromasia RARE Microcytosis RARE Tear Drop Cells RARE Sodium Potassium Chloride Carbon Dioxide Anion Gap BUN Creatinine Estim Creat Clear Calc Est GFR (MDRD) Af Amer Est GFR (MDRD) Non-Af BUN/Creatinine Ratio Glucose Calcium Phosphorus Magnesium Total Bilirubin AST ALT Alkaline Phosphatase Ammonia Total Protein Albumin Globulin Albumin/Globulin Ratio Procalcitonin Cortisol MRSA (PCR) POC Glucose 201 H 204 H 09/08/19 09/08/19 09/08/19 04:00 06:39 06:40 WBC RBC Hgb Hct MCV MCH MCHC RDW Std Deviation RDW Coeff of Susan Plt Count MPV Immature Gran % (Auto) Neut % (Auto) Lymph % (Auto) [place] % (Auto) Eos % (Auto) Baso % (Auto) Absolute Neuts (auto) Absolute Lymphs (auto) Nucleated RBC % Differential Comment Polychromasia Microcytosis Tear Drop Cells Sodium 136 Potassium 4.3 Chloride 101 Carbon Dioxide 27.0 Anion Gap BUN 22 H Creatinine 3.57 H Estim Creat Clear Calc 12.06 Est GFR (MDRD) Af Amer 16 L Est GFR (MDRD) Non-Af 13 L BUN/Creatinine Ratio 6.2 L Glucose 205 H Calcium 8.4 L Phosphorus 5.2 H Magnesium Total Bilirubin AST ALT Alkaline Phosphatase Ammonia 19.0 Total Protein Albumin 1.8 L Globulin Albumin/Globulin Ratio Procalcitonin Cortisol MRSA (PCR) POC Glucose 188 H 09/08/19 09/08/19 09/08/19 06:40 13:50 16:28 WBC RBC Hgb Hct MCV MCH MCHC RDW Std Deviation RDW Coeff of Susan Plt Count MPV Immature Gran % (Auto) Neut % (Auto) Lymph % (Auto) [place] % (Auto) Eos % (Auto) Baso % (Auto) Absolute Neuts (auto) Absolute Lymphs (auto) Nucleated RBC % Differential Comment Polychromasia Microcytosis Tear Drop Cells Sodium Potassium Chloride Carbon Dioxide Anion Gap BUN Creatinine Estim Creat Clear Calc Est GFR (MDRD) Af Amer Est GFR (MDRD) Non-Af BUN/Creatinine Ratio Glucose Calcium Phosphorus Magnesium Total Bilirubin AST ALT Alkaline Phosphatase Ammonia Total Protein Albumin Globulin Albumin/Globulin Ratio Procalcitonin 0.78 H Cortisol MRSA (PCR) POSITIVE H POC Glucose 102 09/08/19 09/09/19 09/09/19 23:02 04:40 04:40 WBC 10.0 RBC 3.53 L Hgb 10.9 L Hct 35.8 L MCV 101.4 H MCH 30.9 MCHC 30.4 L RDW Std Deviation 63.1 H RDW Coeff of Susan 17.6 H Plt Count 132 L MPV 8.9 Immature Gran % (Auto) 0.900 Neut % (Auto) 70.6 H Lymph % (Auto) 19.7 [place] % (Auto) 8.3 Eos % (Auto) 0.3 Baso % (Auto) 0.2 Absolute Neuts (auto) 7.1 Absolute Lymphs (auto) 1.98 Nucleated RBC % 0.2 Differential Comment Polychromasia Microcytosis Tear Drop Cells Sodium 138 Potassium 3.7 Chloride 104 Carbon Dioxide 29.0 Anion Gap 5 BUN 17 Creatinine 2.62 H Estim Creat Clear Calc 16.44 Est GFR (MDRD) Af Amer 23 L Est GFR (MDRD) Non-Af 19 L BUN/Creatinine Ratio 6.5 L Glucose 53 L Calcium 8.2 L Phosphorus 3.4 Magnesium 2.0 Total Bilirubin 0.40 AST 28 ALT 14 Alkaline Phosphatase 182 H Ammonia Total Protein 6.4 Albumin 1.8 L Globulin 4.6 H Albumin/Globulin Ratio 0.4 L Procalcitonin Cortisol MRSA (PCR) POC Glucose 134 H 09/09/19 09/09/19 05:19 05:43 WBC RBC Hgb Hct MCV MCH MCHC RDW Std Deviation RDW Coeff of Susan Plt Count MPV Immature Gran % (Auto) Neut % (Auto) Lymph % (Auto) [place] % (Auto) Eos % (Auto) Baso % (Auto) Absolute Neuts (auto) Absolute Lymphs (auto) Nucleated RBC % Differential Comment Polychromasia Microcytosis Tear Drop Cells Sodium Potassium Chloride Carbon Dioxide Anion Gap BUN Creatinine Estim Creat Clear Calc Est GFR (MDRD) Af Amer Est GFR (MDRD) Non-Af BUN/Creatinine Ratio Glucose Calcium Phosphorus Magnesium Total Bilirubin AST ALT Alkaline Phosphatase Ammonia Total Protein Albumin Globulin Albumin/Globulin Ratio Procalcitonin Cortisol MRSA (PCR) POC Glucose 40 L* 111 H Microbiology 09/08/19 09:12 Mucosa - Nasopharyngeal Respiratory Panel (PCR) - Final Clinical Impression(s) from Imaging Studies Chest X-Ray 09/08/19 09:05 IMPRESSION: The tip of the right internal jugular venous catheter is in the proximal portion of the superior vena cava. Mild increased markings at the lung bases slightly worse on the left side. Cardiomegaly. Electronically Signed: Eric Mckay at 9:25 EDT , Service support , Brain MRI 09/08/19 10:30 IMPRESSION: Mild atrophy and periventricular white matter ischemic changes without evidence for acute infarct Electronically Signed: Alan Reyes MD at 16:23 EDT , Service support , Head MRA 09/08/19 10:30 IMPRESSION: Atherosclerotic disease with most severe involvement of the distal left vertebral and proximal M2 segments of the middle cerebral arteries Electronically Signed: Alan Reyes MD at 17:16 EDT , Service support , Medical Necessity - Tobacco Use Smoking Status: Former smoker Assessment/Plan RECOMMENDATIONS: 1. Continue empiric antimicrobials. 2. Wean Levophed by 1 mcg. Change titration parameter to target a systolic pressure of 90 mmHg. 3. Avoid sedating medications. 4. Continue lactulose. 5. Continue hemodialysis per nephrology recommendations. 6. Continue Midodrine IMPRESSIONS: 1. Shock, distributive versus hypovolemic Unclear if there is a potential source of infection, although SBP would be a possibility, given the patient's need for frequent paracenteses. Given that she did have a rather large volume paracentesis completed, it is certainly possible that a hypovolemic etiology in the setting of cirrhosis is a possibility. For now, I feel it is reasonable to continue antimicrobials. Continue Levophed and wean to maintain a systolic blood pressure at or above 90 mmHg. Continue Midodrine per outpatient regimen. 2. Toxic/metabolic encephalopathy Continue current supportive measures as noted above. Avoid sedating medications. MRI brain was unremarkable. If the patient's mentation does not begin to improve over the next 24 hours, will consider obtaining neurology consultation. 3. End-stage renal disease on hemodialysis Nephrology currently following to assist with hemodialysis needs. 4. 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 Continue lactulose per home regimen. Ammonia level is within normal limits. TIME: 35 minutes of critical care time, inclusive of procedures, was spent addressing the patient's distributive versus hypovolemic shock, toxic/metabolic encephalopathy, end-stage renal disease, cirrhosis, review of all data and collaboration with the care team. [id number]) [id number] Critical care first hour
--- NOTE | 2019-09-09 08:01 | PN_ITS ---
Subjective: Patient overnight with intermittent periods of lucidity with ongoing occasional irritability and pressor needs however currently this a.m. off pressor therapy with transition from map requirements to SBP 90. Patient status post HD x1 with no improvement. MRI day prior with no evidence of acute stroke with discontinuation of NIH. Continued on initiated antibiotic therapy of vancomycin and Zosyn day prior with bilateral bases with concern for possibly developing pneumonia versus SBP given recent paracentesis but no significant abdominal pain . Patient remains significantly encephalopathic, not interactive, not oriented or answering any questions. No evidence otherwise of fevers, chills, nausea, emesis, abdominal pain, chest pain or dyspnea but patient poor historian. Objective: Physical Examination: General: Awakens to stimuli, not alert, not able to answer orientation questions but can give some responses to questions, remains intermittently cooperative, laying in the ICU bed, confused, currently off pressors. Skin: normal color, turgor, no icterus, cyanosis except very staged ecchymoses to extremities, chronic venous stasis skin changes bilateral lower extremities. HEENT: AT/NC, EOM unable to be assessed, BL equal pupils, chronic blind L eye and R eye recent vision deficits, PERRLA, dry MM. Lungs: Diminished breath sounds bilaterally, greater bases, no evidence of distress, no rales, ronchi or wheezing. Heart: Regular rate and rhythm; no gallop, rub audible, + SM. Abdomen: soft, no obvious TTP, moderately distended, distant normal bowel sounds. Extremities: no cyanosis, clubbing, chronic bilateral lower extremity venous skin changes. Neurological: Awakens to stimuli, not alert, not able to answer orientation questions but can give some responses to questions, remains intermittently cooperative, laying in the ICU bed, confused; cognitive function not baseline intact, intermittent periods of lucidity; pupils equally reactive to light and accomodation; cranial nerves II-XII grossly normal except those associated with vision as noted, moving all 4 extremities, strength severely globally decreased secondary to acute presentation. Psychiatric: affect appears flat, moaning occasionally, no acute evidence of depressive or anxiety feelings. Vitals/I&O's: Vital Signs Temp Pulse Resp BP Pulse Ox 96.9 F L 74 10 L 118/43 L 96 09/09/19 05:00 09/09/19 07:30 09/09/19 07:30 09/09/19 07:30 09/09/19 07:30 Oxygen Flow Rate (L/min) 3 Oxygen Delivery Method Nasal Cannula Weight: 201 lb 0.985 oz Body Mass Index (BMI) 31.4 Finger Stick Blood Glucose 99 Intake and Output for Last 24 Hours 09/07/19 09/08/19 09/09/19 23:59 23:59 23:59 Intake Total 3724.56 / 3743.36 3277.21 / 3284.26 345.82 / 345.82 Output Total 0 / 0 0 / 0 0 / 0 Balance 3724.56 / 3743.36 3277.21 / 3284.26 345.82 / 345.82 Microbiology Past 72 Hours 09/08/19 09:12 Mucosa - Nasopharyngeal Respiratory Panel (PCR) - Final Laboratory Results 09/08/19 06:40: Procalcitonin 0.78 H 09/08/19 13:50: MRSA (PCR) POSITIVE H 09/08/19 16:28: POC Glucose 102 09/08/19 23:02: POC Glucose 134 H 09/09/19 04:40: WBC 10.0, RBC 3.53 L, Hgb 10.9 L, Hct 35.8 L, MCV 101.4 H, MCH 30.9, MCHC 30.4 L, RDW Std Deviation 63.1 H, RDW Coeff of Susan 17.6 H, Plt Count 132 L, MPV 8.9, Immature Gran % (Auto) 0.900, Neut % (Auto) 70.6 H, Lymph % (Auto) 19.7, [place] % (Auto) 8.3, Eos % (Auto) 0.3, Baso % (Auto) 0.2, Absolute Neuts (auto) 7.1, Absolute Lymphs (auto) 1.98, Nucleated RBC % 0.2 09/09/19 04:40: Sodium 138, Potassium 3.7, Chloride 104, Carbon Dioxide 29.0, Anion Gap 5, BUN 17, Creatinine 2.62 H, Estim Creat Clear Calc 16.44, Est GFR (MDRD) Af Amer 23 L, Est GFR (MDRD) Non-Af 19 L, BUN/Creatinine Ratio 6.5 L, Glucose 53 L, Calcium 8.2 L, Phosphorus 3.4, Magnesium 2.0, Total Bilirubin 0.40, AST 28, ALT 14, Alkaline Phosphatase 182 H, Total Protein 6.4, Albumin 1.8 L, Globulin 4.6 H, Albumin/Globulin Ratio 0.4 L 09/09/19 05:19: POC Glucose 40 L* 09/09/19 05:43: POC Glucose 111 H Current Medications Acetaminophen (Tylenol) 650 mg PO Q6H PRN PRN PRN Reason: PAIN (-02/27)/FEVER Last Admin: 09/08/19 22:54 Dose: 650 mg Documented by: Atorvastatin Calcium (Lipitor) 80 mg PO QHS [facility] Last Admin: 09/08/19 21:15 Dose: Not Given Documented by: Calcium Acetate (Phoslo Gel Cap) 667 mg PO TIDCM [facility] Last Admin: 09/08/19 16:58 Dose: Not Given Documented by: Chlorhexidine Gluconate () 1 each TOPICAL DAILY [facility] Last Admin: 09/09/19 02:35 Dose: 1 each Documented by: Cholecalciferol (Vitamin D (25mcg)) 5,000 unit PO MoWeFr@1000 [facility] Last Admin: 09/08/19 15:29 Dose: Not Given Documented by: Dextrose (D50w Syringe) 0 gm IV X1 PRN; Protocol PRN Reason: Hypoglycemia Last Admin: 09/09/19 05:27 Dose: 25 gm Documented by: Docusate Sodium (Colace) 100 mg PO BID [facility] Last Admin: 09/08/19 21:15 Dose: Not Given Documented by: Glucagon () 1 mg IM .X1 PRN PRN Reason: Hypoglycemia Hydralazine HCl (Apresoline Iv) 5 mg IV Q30M PRN PRN Reason: to maintain BP goals Sodium Chloride () 250 mls @ 15 mls/hr IV .[id number] PRN PRN Reason: Saline Flush Sodium Chloride () 250 mls @ 15 mls/hr IV .[id number] PRN PRN Reason: Additional IVPB Infusion Norepinephrine Bitartrate 8 mg (/ Sodium Chloride) 250 mls @ 9.375 mls/hr CONT INF .[id number] [facility]; Protocol Last Titration: 09/09/19 07:30 Dose: 0 mcg/min, 0 mls/hr Documented by: Sodium Chloride () 1,000 mls @ 75 mls/hr IV .[id number] [facility] Last Admin: 09/09/19 02:56 Dose: 75 mls/hr Documented by: Vancomycin IV Pharmacy to Dose (1 ea/ Sodium Chloride) 500 mls @ 250 mls/hr IV X1 PRN; Protocol PRN Reason: Rx to Dose Piperacillin Sod/Tazobactam (Sod 3.375 gm/ Sodium Chloride) 50 mls @ 12.5 mls/hr IV Q12 [facility] Last Infusion: 09/09/19 02:59 Dose: Infused Documented by: Vancomycin HCl 750 mg/ Sodium (Chloride) 265 mls @ 250 mls/hr IV X1 ONE Stop: 09/10/19 17:03 Insulin Glargine (Lantus ([facility])) 11 units SC QHS [facility] Last Admin: 09/08/19 23:03 Dose: 11 units Documented by: Insulin Human Lispro (Humalog Kwikpen ([facility])) 0 unit SC Q6 [facility]; Protocol Last Admin: 09/09/19 05:27 Dose: Not Given Documented by: Lactulose (Chronulac, Cephulac) 40 gm PO Q12 [facility] Last Admin: 09/08/19 21:14 Dose: Not Given Documented by: Midodrine (Proamatine) 10 mg PO TID [facility] Last Admin: 09/09/19 05:10 Dose: Not Given Documented by: Multivit/Ca Carb/B Cmplx/FA/Prenat (Nephrocaps, Renaphro) 1 capsule PO DAILY [facility] Last Admin: 09/08/19 15:28 Dose: Not Given Documented by: Nitroglycerin (Nitrostat) 0.4 mg SUBLINGUAL Q5M PRN PRN Reason: CARDIAC/CHEST PAIN Ondansetron HCl (Zofran) 4 mg IV Q8H PRN PRN PRN Reason: NAUSEA/VOMITING Ondansetron HCl (Zofran Odt) 4 mg PO Q6H PRN PRN PRN Reason: NAUSEA/VOMITING Pantoprazole Sodium (Protonix) 20 mg PO DAILY [facility] Last Admin: 09/08/19 15:29 Dose: Not Given Documented by: Pramipexole Dihydrochloride (Mirapex) 0.25 mg PO QHS [facility] Last Admin: 09/08/19 22:50 Dose: 0.25 mg Documented by: Sodium Chloride () 10 - 40 ml IV UD PRN PRN Reason: SALINE FLUSH Last Admin: 09/09/19 05:28 Dose: 40 ml Documented by: STROKE Vital Signs/Narrative: Vital Signs Temp Pulse Resp BP Pulse Ox 09/09/19 07:30 74 10 L 118/43 L 96 09/09/19 07:25 74 11 L 122/46 H 93 09/09/19 07:15 63 16 118/44 L 96 09/09/19 07:00 62 11 L 109/38 L 96 09/09/19 06:45 67 14 120/42 L 97 09/09/19 06:00 77 22 H 140/52 H 98 09/09/19 05:00 96.9 F L 75 17 137/46 H 98 09/09/19 04:15 88 19 H 138/71 H 96 Medical Necessity - Tobacco Use Smoking Status: Former smoker Assessment/Plan The patient is a 74 y/o F w/ PMHx: Chronically blind L Eye, Chronic Hepatic Cirrhosis, Former tobacco use, ESRD on HD, CAD s/p MN w/ PCI, Diabetes mellitus type II, HTN (now chronically hypotensive with HD regimen), HLD, PAF, AOCD, Chronic pancytopenia, GERD w/ Hx GI bleed, RLS who presents to the [facility] ED on 09/06/19 secondary to history of confusion with significantly altered mental status and hypotension transferred as a direct from [facility] patient concurrent history of recent right eye vision changes. 1. Shock Unclear Specific Etiology, Possible Distributive given Cirrhotic Status, Possible Hypovolemic versus Infectious including possible SBP versus developing PNA, Possible GP/GN Organism with associated Acute Encephalopathy: Maintain ICU status, transitioned from initial admission PCU status given worsened status and transient pressor needs (d/c 09/08/19, labile). Initially treated with pressors now d/c 09/08/19 evening, Midrin ongoing, IV stress dose hydrocortisone now d/c 09/08/19, failed attempted arterial line with successful central line placement, 09/08/19 HD without marked improvement. Recent signif icant high volume 09/04/19 paracentesis possible etiology. 09/08/19 added and continued vancomycin and Zosyn therapy with+ MRSA screen, blood culture NGTD x 48 hours, negative COVID testing from [place] obtained prior to her transfer to [facility], will continue to trend CBC, CMP. If no mental status improvement per discussion with ICU physician would plan Neurology consultation for encephalopathy (although ammonia normal, MRI brain negative but does have notable vertebral disease and concurrent hypotension). 2. Right Eye Vision Deficits, Encephalopathy concerning for possible CVA: OSH ED w/ unremarkable CT Head. Recent 05/23/19 ECHO w/ normal LV size, normal LV systolic function, EF 55%, mild focal AV calcifications, mild to moderate aortic stenosis, small pericardial effusion, moderate tricuspid valve insufficiency. Maintained on the ICU, MRI Brain with mild atrophy and periventricular white matter ischemic changes without evidence for acute infarct, MRA of the head with atherosclerotic disease with most severe involvement of the distal left vertebral and proximal M2 segments of the middle cerebral arteries MRA Head, carotid US pending, PT/OT/Speech/Nutrition evaluation per protocol. Given recent GI bleed, holding ASA, continued on statin when oral intake safe. Aspiration and fall precautions. As noted #1, consideration neurology consultation if ongoing severe encephalopathy after next HD. 3. Chronic hepatic cirrhosis, compensated with as noted #1 possible SBP versus hypovolemic given high volume recent paracentesis: Admission ammonia level 20, repeat 09/07/2018, likely not etiology for encephalopathy. Suspect infectious etiology as metabolic improved and continued encephalopathy. Most recent paracentesis on 09/04/19, 09/08/19 vancomycin and Zosyn added for possible SBP with MRSA screen positive. Given ongoing abx therapy per discussion with ICU physician deferred paracentesis to assess fluid. When mentally appropriate may continue to administer lactulose. 4. ESRD: Admission BUN/Cr 13/2.65. Recent HD Sunday per Dr. Crawley without improvement unfortunately given significant encephalopathy. Will continue dialysis, Sunday, Sunday, Sunday with Dr. Crawley continued consultation, will maintain on Midrin. Prior recommendations per Dr. Crawley to patient for transition to hospice but patient has declined. 5. AOCD w/ Recent Suspected GI bleed w/ Acute on Chronic Anemia: Recent adm ission 08/07 with acute on chronic anemia with recent 03/2019 EGD and colonoscopy at that time with diverticulosis with no evidence of active bleeding, PRBC administered at that time with serial trending which remained stable with discharge to nursing home facility at that time with continued outpatient follow-up. Continued aspirin therapy to be held. 6. CAD: s/p cutting Balloon and TAMI proximal LAD, rotational atherectomy RCA with two overlapping TAMI, aspirin held with recent history of GI bleed in 07/2019, continued on atorvastatin, not on BP regimen given ongoing hypotension with history of de-escalation off all of her hypertensive medications over the last several months. 7. Diabetes mellitus type II with neuropathy: Will continue home insulin regimen, NPO while encephalopathic, continue gabapentin, accu checks w/ ISS q 6 hours until oral intake safe. 8. Hyperlipidemia: Continue home statin regimen. 9. Restless leg syndrome: We will continue patient Mirapex regimen once intake safe. 10. GERD: We will maintain on Protonix. 11. DVT Prophylaxis: SCDs, defer chemoprophylaxis given recent GI bleed. 12. Code Status: Full Code. Additional: contacted 09/09/19 and updated on her status with discussions of her current status, improvements as far as transition of pressor therapies, ongoing confusion and plan of care as noted. Inpatient E&M: 40605 Subs Hosp L3
--- NOTE | 2019-09-09 09:03 | CDU_ITS ---
Reason For Study: Syncope Rt. Velocities/BP Lt. Velocities/BP Unable to access due to central line. Prox CCA 68.5/8 cm/sec. Mid CCA 60.8/6.9 cm/sec. Dist CCA 42.8/7.8 cm/sec. Prox ICA 57.5/8 cm/sec. Mid ICA 64.1/10.2 cm/sec. Dist ICA 104.7/11.5 cm/sec. Lt. ICA/CCA = 1.7. Lt. Vert. 44.3/9.1 cm/sec. Right Extracranial Unable to access due to central line. Left Extracranial There is homogeneous, smooth atherosclerotic plaque noted in the left common carotid artery. There is heterogeneous, irregular atherosclerotic plaque noted in the left internal carotid artery. Unable to visualize left ECA. Antegrade flow is noted in the left vertebral artery. Procedure Carotid Duplex 30358. The exam was non-diagnostic due to right central line and depth and tortuosity of left cartotid.. Pt continuously swallowing and heavy breathing causing left carotid to shift. Exam performed portable in ICU/CCU. Prelim to RN. Interpretation Summary Right extracranial carotid artery system unable to be visualized secondary to central line in position No hemodynamically significant plaque identified within the left internal carotid. <50% stenosis left internal carotid Left external carotid could not be visualize Patent, antegrade left vertebral Note the significant technical difficulties and limitations of this exam Ordering Physician: Ryann Holland Referring Physician: MD Jared Davy Performed By: Matilde Loeps RVT
[2019-09-09] MEDS: Lactulose 20 GM/30 ML UDC 40 GM PO ×2 (10:14→21:27)
[2019-09-09] MEDS: Docusate Sodium 100 MG Capsule PO (10:14)
[2019-09-09] MEDS: Folic Acid/Vitamin B Comp W-C 1 Capsule 1 CAP PO (10:14)
[2019-09-09] MEDS: Pantoprazole Sodium 20 MG Tablet PO (10:14)
--- NOTE | 2019-09-09 10:20 | NURSING ---
Spoke w/ patient's daughter Jackeline Brian, gave update on current condition i.e. lethargy, able to take morning meds but spit them out on nightshift, negative MRI, dialysis for tomorrow.
--- NOTE | 2019-09-09 10:28 | CASEMGMT ---
Addendum entered by Felipe Laird 09/09/19 13:09: Called received from Lorie @ [facility]. She had spoken to pt's nurse and was updated that sister seems overwhelmed @ home, and care issues are present for pt in home. Also noted that [facility] staff had voiced concerns re: pt having proper medications on coming to facility, and concern re: leg/wound care being consistently completed for pt. -MARGO Dave and Physician updated. Likely will continue to pursue SNF placement on dc for patientJulienne Kyra BSN RN ACM Original Note: RN CM Assessment Note Presentation: Metabolic encephalopathy Intro role of CM and purpose of RN CM assessment to patient's via phone. Patient is not able to participate at this time. Demographics, PCP and Pharmacy verified. states they had been staying with her sister for now as they are having difficulty caring for her at home. having difficulty understanding conversation. RN CM needed to repeat questions and rephrase for clarity. Pt did have [facility] active. Call to Lorie @ [facility] to get update on how pt and her are doing @ home. Awaiting call back. -Call to Eva, sister who states pt does not have aide services at this time. Also states pt has not been doing well since returning home, and they are having difficulty caring for her. RN CM let her know consideration could be given for her to return to SNF if needed and her had been agreeable to this. PCP: Dr. Coleman Specialists: Dr. Dixon, cardiology; Dr. Reinoso, pulmonology Preferred Pharmacy: [facility] Insurance: [facility] Prescription Benefit: yes LNOK : , Landen Moreira Living Arrangements: Lives with pt's sister right now. admits he can not care for her at home by himself. Sister Eva assists with care needs, though states it has been increasingly difficult at home since pt left SNF. Transportation: states he drives, including to dialysis Dialysis: [facility] MWF @ 12 noon. Call to facility to update pt is in hospital. DME: states pt was ambulating independently, but has walker if needed. HHC: [facility] RN PT/OT. [facility]F: [facility] DC'd 08/07/19 MARGO referral: Listed in previous note that pt has CM for [facility]. Pt may need SNF on dc. Patient DC goals: undetermined. DC PLAN: undetermined. Anticipate pt will need SNF on dc.Kyra SANTIAGON RN ACM
--- NOTE | 2019-09-09 11:37 | CASEMGMT ---
Social Work Note SW to continue to follow in the event pt needs SNF at discharge. Pt has been to [facility] previously. Plan: [facility], RN PAIN MANAGEMENT
[2019-09-09] MEDS: Midodrine HCl 5 MG Tablet 10 MG PO ×2 (12:57→21:28)
[2019-09-09] MEDS: Calcium Acetate 667 MG Capsule PO ×2 (12:57→16:38)
--- NOTE | 2019-09-09 13:18 | NURSING ---
Pt speaking with daughter Jackeline on the phone.
[2019-09-09 13:28] LABS: Glucose 50 mg/dL (74-106)
[2019-09-09 14:41] LABS: Bedside Glucose 72 mg/dL (70-110)
[2019-09-09] MEDS: oxyCODONE 5 MG Tablet 7.5 MG PO ×2 (16:38→22:55)
[2019-09-09 16:50] LABS: Bedside Glucose 89 mg/dL (70-110)
[2019-09-09 17:31] LABS: Bedside Glucose 40 mg/dL (70-110)
[2019-09-09 17:31] LABS: Bedside Glucose 43 mg/dL (70-110)
[2019-09-09] MEDS: Atorvastatin Calcium 80 MG Tablet PO (21:28)
[2019-09-09] MEDS: Pramipexole Di-HCl 0.25 MG Tablet PO (21:28)
[2019-09-09] MEDS: Acetaminophen 325 MG Tablet 650 MG PO (21:29)
[2019-09-09 23:11] LABS: Bedside Glucose 113 mg/dL (70-110)
[2019-09-10] VITALS (23 sets, daily range): BP systolic 70–137; BP diastolic 28–80; PULSE 71–92; RESP 10–20; TEMP 36.1–36.8; O2SAT 97–100
[2019-09-10] MEDS: CHLORHEXIDINE GLUC 2% CLOTH 1 EACH TOWELETTE TOPICAL (02:00)
[2019-09-10 04:13] LABS: Absolute Lymphocyte Count 1.63 X10^3/uL (0.83-4.51); Absolute Neutrophil Count 4.7 X10^3/uL (2.0-7.7); Basophil# 0.02 X10^3/uL; Basophil% 0.3 % (0-1); Eosinophils% 2.8 % (0-5); Hematocrit 33.3 % (37-47); Lymphocyte # 1.63 X10^3/ul (4.0); Lymphocyte % 22.8 % (19-41); Mean Corpuscular Hgb 30.6 pg (27.0-32.0); Mean Corpuscular Volume 101.8 fL (81-99); Monocyte% 8.4 % (0-10); NRBC Flagged by Analyzer 0 % (0-5); Neutrophil # 4.67 X10^3/uL (2.7-7.7); Neutrophil % 65.3 % (47-70); Platelet Count 110 K/mm3 (150-450); RBC Distribution Width CV 17.5 % (11.6-14.6); RBC Distribution Width SD 64.2 fl (35.1-43.9); Red Blood Count 3.27 M/mm3 (4.2-5.4); White Blood Count 7.2 K/mm3 (4.4-11.0)
[2019-09-10] MEDS: Acetaminophen 325 MG Tablet 650 MG PO ×2 (04:19→23:08)
[2019-09-10] MEDS: 0.9% Saline Lock 10 ML Syringe IV (04:23)
[2019-09-10 04:27] LABS: ALB/GLOB Ratio 0.4 RATIO (0.9-2.4); AST(SGOT) 31 U/L (15-37); Alanine Aminotransfer ALT/SGPT 18 U/L (13-56); Albumin, Serum 1.7 g/dL (3.2-5.0); Alkaline Phosphatase 198 U/L (45-117); Anion Gap 6 (5-15); BUN 24 mg/dL (7-18); BUN/Creat Ratio 7.4 RATIO (10-20); Calcium,Total 7.9 mg/dL (8.5-10.1); Chloride 104 mmol/L (98-107); Creatinine, Serum 3.24 mg/dL (0.55-1.02); EST Glomerular Filtration Rate 15 mL/min (>60); Est Glom Filt Rate - Afr Amer 18 mL/min (>60); Estimated Creatinine Clearance 13.29 ml/min; Globulin 4.4 g/dL (2.2-4.2); Glucose 121 mg/dL (74-106); Magnesium 1.8 mg/dL (1.6-2.6); Phosphorus 2.9 mg/dL (2.5-4.9); Potassium 3.9 mmol/L (3.5-5.1); Protein, Total 6.1 g/dL (6.4-8.2); Sodium Level 138 mmol/L (136-145)
--- NOTE | 2019-09-10 04:28 | NURSING ---
Art line noted to be swollen, leaking, reddened, and tender. Pts art line dc'd at this time by mya perez rn, pressure held and drsg placed. Pt tolerated line removal well.
[2019-09-10] MEDS: 0.9% Normal Saline 1,000 ML 75 ML IV (05:18)
[2019-09-10] MEDS: oxyCODONE 5 MG Tablet 7.5 MG PO (06:08)
[2019-09-10] MEDS: Midodrine HCl 5 MG Tablet 10 MG PO ×3 (06:09→21:44)
[2019-09-10 06:31] LABS: Bedside Glucose 107 mg/dL (70-110)
--- NOTE | 2019-09-10 07:10 | PN_ITS ---
Patient Problems: Active and Suspected Problems (Last Reviewed 05/23/19 @ 04:[address] Buddy Olson MD) Altered mental status (Acute) Hypotension (Acute) Subjective: Patient overnight with no acute events per self and per nursing report with continued improvement in mental status and today remains alert, oriented, taking medications and diet without issue. Dialysis being set up today. Patient previously had been hypoglycemic therefore the day prior insulin had been discontinued with only sliding scale and blood sugars this morning have been improved. Patient notes just generalized pain and is on chronic pain regimen outpatient which has not recently been administered given patient's confusion and she is now requesting her oxycodone. Patient denies fevers, chills, nausea, emesis, abdominal pain, chest pain or dyspnea. Objective: Physical Examination: General: Awake, alert today, oriented to self, place, month and recent events but some confusion to recent hospitalization which is expected given her prior confusion, seated upright in the ICU bed, dialysis being initiated. Skin: normal color, turgor, no icterus, cyanosis except very staged ecchymoses to extremities, chronic venous stasis skin changes bilateral lower extremities. HEENT: AT/NC, EOMI, BL equal pupils, chronic blind L eye, PERRLA, dry MM. Lungs: Diminished breath sounds bilaterally, greater bases, no evidence of distress, no rales, ronchi or wheezing. Heart: Regular rate and rhythm; no gallop, rub audible, + SM. Abdomen: soft, no obvious TTP, moderately distended, normal bowel sounds. Extremities: no cyanosis, clubbing, chronic bilateral lower extremity venous skin changes. Neurological: Awake, alert today, oriented to self, place, month and recent events but some confusion to recent hospitalization which is expected given her prior confusion, seated upright in the ICU bed, dialysis being initiated; co gnitive function not baseline intact, intermittent periods of lucidity; pupils equally reactive to light and accomodation; cranial nerves II-XII grossly normal except those associated with vision as noted, moving all 4 extremities, strength improving but remains moderately to severely globally decreased secondary to acute presentation. Psychiatric: affect appears more interactive, less flat, no acute evidence of depressive or anxiety feelings. Vitals/I&O's: Vital Signs Temp Pulse Resp BP Pulse Ox 97.0 F L 82 15 125/79 H 99 09/10/19 04:00 09/10/19 06:00 09/10/19 06:00 09/10/19 06:00 09/10/19 06:00 Oxygen Flow Rate (L/min) 2 Oxygen Delivery Method Nasal Cannula Weight: 206 lb 9.17 oz Body Mass Index (BMI) 31.4 Finger Stick Blood Glucose 99 Intake and Output for Last 24 Hours 09/08/19 09/09/19 09/10/19 23:59 23:59 23:59 Intake Total 3277.21 / 3284.26 2149.57 / 2149.57 838.75 / 838.75 Output Total 0 / 0 0 / 0 0 / 0 Balance 3277.21 / 3284.26 2149.57 / 2149.57 838.75 / 838.75 Microbiology Past 72 Hours 09/06/19 20:00 Blood Culture (Wb) - No Site/Description Given Blood Culture - Preliminary No growth in 48 hours. 09/08/19 09:12 Mucosa - Nasopharyngeal Respiratory Panel (PCR) - Final Laboratory Results 09/09/19 12:59: POC Glucose 43 L* 09/09/19 13:01: POC Glucose 40 L* 09/09/19 13:05: Glucose 50 L 09/09/19 14:30: POC Glucose 72 09/09/19 16:40: POC Glucose 89 09/09/19 22:55: POC Glucose 113 H 09/10/19 04:00: WBC 7.2, RBC 3.27 L, Hgb 10.0 L, Hct 33.3 L, MCV 101.8 H, MCH 30.6, MCHC 30.0 L, RDW Std Deviation 64.2 H, RDW Coeff of Susan 17.5 H, Plt Count 110 L, MPV 9.0, Immature Gran % (Auto) 0.400, Neut % (Auto) 65.3, Lymph % (Auto) 22.8, Scre[place] % (Auto) 8.4, Eos % (Auto) 2.8, Baso % (Auto) 0.3, Absolute Neuts (auto) 4.7, Absolute Lymphs (auto) 1.63, Nucleated RBC % 0 09/10/19 04:00: Sodium 138, Potassium 3.9, Chloride 104, Carbon Dioxide 28.0, Anion Gap 6, BUN 24 H, Creatinine 3.24 H, Estim Creat Clear Calc 13.29, Est GFR (MDRD) Af Amer 18 L, Est GFR (MDRD) Non-Af 15 L, BUN/Creatinine Ratio 7.4 L, Glucose 121 H, Calcium 7.9 L, Phosphorus 2.9, Magnesium 1.8, Total Bilirubin 0.40, AST 31, ALT 18, Alkaline Phosphatase 198 H, Total Protein 6.1 L, Albumin 1.7 L, Globulin 4.4 H, Albumin/Globulin Ratio 0.4 L 09/10/19 06:19: POC Glucose 107 Current Medications Acetaminophen (Tylenol) 650 mg PO Q6H PRN PRN PRN Reason: PAIN ()/FEVER Last Admin: 09/10/19 04:19 Dose: 650 mg Documented by: Atorvastatin Calcium (Lipitor) 80 mg PO QHS [facility] Last Admin: 09/09/19 21:28 Dose: 80 mg Documented by: Calamine/Phenol (Calmoseptine Ointment) 1 applic TOPICAL BID [facility]; Protocol Calcium Acetate (Phoslo Gel Cap) 667 mg PO TIDCM [facility] Last Admin: 09/09/19 16:38 Dose: 667 mg Documented by: Chlorhexidine Gluconate () 1 each TOPICAL DAILY [facility] Last Admin: 09/10/19 02:00 Dose: 1 each Documented by: Cholecalciferol (Vitamin D (25mcg)) 5,000 unit PO MoWeFr@1000 [facility] Last Admin: 09/08/19 15:29 Dose: Not Given Documented by: Dextrose (D50w Syringe) 0 gm IV X1 PRN; Protocol PRN Reason: Hypoglycemia Last Admin: 09/09/19 13:36 Dose: 12.5 gm Documented by: Docusate Sodium (Colace) 100 mg PO BID [facility] Last Admin: 09/09/19 21:27 Dose: Not Given Documented by: Glucagon () 1 mg IM .X1 PRN PRN Reason: Hypoglycemia Hydralazine HCl (Apresoline Iv) 5 mg IV Q30M PRN PRN Reason: to maintain BP goals Sodium Chloride () 250 mls @ 15 mls/hr IV .[id number] PRN PRN Reason: Saline Flush Sodium Chloride () 250 mls @ 15 mls/hr IV .[id number] PRN PRN Reason: Additional IVPB Infusion Vancomycin IV Pharmacy to Dose (1 ea/ Sodium Chloride) 500 mls @ 250 mls/hr IV X1 PRN; Protocol PRN Reason: Rx to Dose Piperacillin Sod/Tazobactam (Sod 3.375 gm/ Sodium Chloride) 50 mls @ 12.5 mls/hr IV Q12 [facility] Last Infusion: 09/10/19 01:28 Dose: Infused Documented by: Vancomycin HCl 750 mg/ Sodium (Chloride) 265 mls @ 250 mls/hr IV X1 ONE Stop: 09/10/19 17:03 Insulin Human Lispro (Humalog Kwikpen (Bkc)) 0 unit SC Q6 [facility]; Protocol Last Admin: 09/10/19 06:20 Dose: Not Given Documented by: Lactulose (Chronulac, Cephulac) 40 gm PO Q12 [facility] Last Admin: 09/09/19 21:27 Dose: 40 gm Documented by: Midodrine (Proamatine) 10 mg PO TID [facility] Last Admin: 09/10/19 06:09 Dose: 10 mg Documented by: Multivit/Ca Carb/B Cmplx/FA/Prenat (Nephrocaps, Renaphro) 1 capsule PO DAILY [facility] Last Admin: 09/09/19 10:14 Dose: 1 capsule Documented by: Nitroglycerin (Nitrostat) 0.4 mg SUBLINGUAL Q5M PRN PRN Reason: CARDIAC/CHEST PAIN Nystatin (Mycostatin Powder) 1 applic TOPICAL BID [facility]; Protocol Ondansetron HCl (Zofran) 4 mg IV Q8H PRN PRN PRN Reason: NAUSEA/VOMITING Ondansetron HCl (Zofran Odt) 4 mg PO Q6H PRN PRN PRN Reason: NAUSEA/VOMITING Oxycodone HCl (Oxyir) 7.5 mg PO Q6H PRN PRN PRN Reason: Pain Score 6-10/10 Last Admin: 09/10/19 06:08 Dose: 7.5 mg Documented by: Pantoprazole Sodium (Protonix) 20 mg PO DAILY [facility] Last Admin: 09/09/19 10:14 Dose: 20 mg Documented by: Pramipexole Dihydrochloride (Mirapex) 0.25 mg PO QHS [facility] Last Admin: 09/09/19 21:28 Dose: 0.25 mg Documented by: Sodium Chloride () 10 - 40 ml IV UD PRN PRN Reason: SALINE FLUSH Last Admin: 09/10/19 04:23 Dose: 20 ml Documented by: STROKE Vital Signs/Narrative: Vital Signs Temp Pulse Resp BP Pulse Ox 09/10/19 06:00 82 15 125/79 H 99 09/10/19 05:00 76 10 L 112/52 L 100 09/10/19 04:28 86 12 137/73 H 100 09/10/19 04:00 97.0 F L 86 19 H 131/51 H 99 09/10/19 03:43 92 Medical Necessity - Tobacco Use Smoking Status: Former smoker Assessment/Plan All Active Problems (Last Reviewed 05/23/19 @ 04:[address] Buddy Olson MD) Altered mental status (Acute) Hypotension (Acute) The patient is a 74 y/o F w/ PMHx: Chronically blind L Eye, Chronic Hepatic Cirrhosis, Former tobacco use, ESRD on HD, CAD s/p SC w/ PCI, Diabetes mellitus type II, HTN (now chronically hypotensive with HD regimen), HLD, PAF, AOCD, Chronic pancytopenia, GERD w/ Hx GI bleed, RLS who presents to the [facility] ED on 09/06/19 secondary to history of confusion with significantly altered mental status and hypotension transferred as a direct from [facility] patient concurrent history of recent right eye vision changes. 1. Acute Encephalopathy secondary to Shock Unclear Specific Etiology, Possible Distributive given Cirrhotic Status, Possible Hypovolemic versus LOWER SUSPICION Infectious including possible SBP versus developing PNA, Possible GP/GN Organism: Maintained ICU status following decline following admission with planned 09/10/19 PCU status change given improvement. Recent significant high volume 09/04/19 paracentesis possible etiology. Initially required pressors but h as been d/c since 09/08/19. IV stress dose hydrocortisone d/c 09/08/19. Patient w/ failed attempted arterial line with successful central line placement which will be removed 09/10/19 per ICU physician clearance. 09/08/19 HD without marked improvement but improved 09/09/19 into 09/10/19. 09/08/19 added and continued vancomycin and Zosyn therapy with+ MRSA screen given unclear etiology but remains afebrile, no WBC elevation or marked shift therefore per discussions with ICU physician, d/c abx therapy on 09/10/19. Blood culture NGTD x 48 hours. Noted negative COVID testing from [facility] obtained prior to her transfer to [facility]. PT/OT/CM consultations with planned SNF placement. Will monitor overnight and if remains stable would plan transition to SNF once precertification obtained. 2. ? Right Eye Vision Deficits, Transient, Resolved, RULED OUT CVA: OSH ED w/ unremarkable CT Head. Recent 05/23/19 ECHO w/ normal LV size, normal LV systolic function, EF 55%, mild focal AV calcifications, mild to moderate aortic stenosis, small pericardial effusion, moderate tricuspid valve insufficiency. Maintained on the ICU, MRI Brain with mild atrophy and periventricular white matter ischemic changes without evidence for acute infarct, MRA of the head with atherosclerotic disease with most severe involvement of the distal left vertebral and proximal M2 segments of the middle cerebral arteries MRA Head, carotid US pending, PT/OT/Speech/Nutrition evaluation per protocol. Given recent GI bleed, holding ASA, continued on statin. Aspiration and fall precautions. Improved mentation 09/08-09/09 therefore deferred Neurology evaluation. PT/OT/CM consultations with recommended SNF placement. 09/09/19 R eye vision decrease resolution noted per patient. 3. Chronic hepatic cirrhosis, compensated with as noted #1 possible SBP versus hypovolemic given high volume recent paracentesis: Admission ammonia level 20, repeat 09/07/2018, likely not etiology for encephalopathy. Suspect infectious etiology as metabolic improved and continued encephalopathy. Most recent paracentesis on 09/04/19, 09/08/19 vancomycin and Zosyn added for possible SBP with MRSA screen positive; however, given improvement as noted, abx d/c on 08/20 07/10. Continued on lactulose. 4. ESRD: Admission BUN/Cr 13/2.65. Recent HD Sunday per Dr. Crawley without improvement unfortunately given significant encephalopathy. Will continue dialysis, Sunday, Sunday, Sunday with Dr. Crawley continued consultation, will maintain on Midrin. Prior recommendations per Dr. Crawley to patient for transition to hospice but patient has declined. 5. AOCD w/ Recent Suspected GI bleed w/ Acute on Chronic Anemia: Recent admission 08/07 with acute on chronic anemia with recent 03/2019 EGD and colonoscopy at that time with diverticulosis with no evidence of active bleeding, PRBC administered at that time with serial trending which remained stable with discharge to [facility] facility at that time with continued outpatient follow-up. Continued aspirin therapy to be held. 6. CAD: s/p cutting Balloon and TAMI proximal LAD, rotational atherectomy RCA with two overlapping TAMI, aspirin held with recent history of GI bleed in 07/2019, continued on atorvastatin, not on BP regimen given ongoing hypotension with history of de-escalation off all of her hypertensive medications over the last several months. 7. Diabetes mellitus type II with neuropathy with Hypoglycemia: Overnight x 2 hypoglycemia noted, d/c 09/09/19 long-acting lantus q HS with now improved BS, continue ADA diet, restarted 09/10/19 gabapentin, accu checks w/ ISS. 8. Hyperlipidemia: Continue home statin regimen. 9. Restless leg syndrome: We will continue patient Mirapex regimen. 10. GERD: We will maintain on Protonix. 11. DVT Prophylaxis: SCDs, defer chemoprophylaxis given recent GI bleed. 12. Code Status: Full Code. Additional: contacted 09/10/19 and updated on her status with CM discussions also with him regarding recommendation for SNF. He noted he would prefer return to currently living situation, but encouraged SNF again as current assist is overwhelmed. Inpatient E&M: 92545 Subs Hosp L2
--- NOTE | 2019-09-10 07:29 | PCM.PN.INT ---
Subjective: The patient was seen and examined at the bedside this morning. Events from the last 24 hours have been reviewed. The patient is currently afebrile, hemodynamically stable and maintaining appropriate oxygen saturations on 2 L/min via nasal cannula. The patient has been off of all form of vasopressor support now for 24 hours. Her arterial line infiltrated this morning and was subsequently removed. The patient is currently more alert and appropriately interactive this morning. She is currently receiving hemodialysis. Objective: The patient's most recent lab work, culture data and imaging studies have all been personally reviewed. Respiratory viral panel was negative. Blood cultures have shown no growth to date. MRI brain revealed mild atrophy and periventricular white matter ischemic changes without evidence for acute infarction. General: Alert, Cooperative, No apparent distress, - - Sitting upright in bed. HEENT: Atraumatic, Normocephalic Oral: Moist Mucosa, No Gingival or Mucosal Lesions/ Ulcerations Neck: Supple, No Nodes, Trachea Midline, - - Right IJ triple-lumen catheter in place Lungs: No rhonchi, No wheeze, No rales, Diminished Cardiovascular: Normal S1, Normal S2, Irregular Rate, Murmur Abdomen: Bowel Sounds Present, Soft, Non Tender, Distended Extremities: No clubbing, No cyanosis, Edema Skin: No breakdown Musculoskeletal: No Muscle Wasting Lymphatic: No Cervical, Supraclavicular, or Inguinal Adenopathy Neurological: Neuro grossly intact Psych/Mental Status: Normal Affect, Appropriate Vital Signs Temp Pulse Resp BP Pulse Ox 97.0 F L 85 15 126/80 H 99 09/10/19 04:00 09/10/19 07:00 09/10/19 07:00 09/10/19 07:00 09/10/19 07:00 Oxygen Flow Rate (L/min) 2 Oxygen Delivery Method Nasal Cannula Weight: 206 lb 9.17 oz Body Mass Index (BMI) 31.4 Finger Stick Blood Glucose 99 Intake and Output for Last 24 Hours 09/08/19 09/09/19 09/10/19 23:59 23:59 23:59 Intake Total 3277.21 / 3284.26 2149.57 / 2149.57 838.75 / 838.75 Output Total 0 / 0 0 / 0 0 / 0 Balance 3277.21 / 3284.26 2149.57 / 2149.57 838.75 / 838.75 Labs (Last 48 Hours) 09/08/19 09/08/19 09/08/19 06:40 13:50 16:28 WBC RBC Hgb Hct MCV MCH MCHC RDW Std Deviation RDW Coeff of Susan Plt Count MPV Immature Gran % (Auto) Neut % (Auto) Lymph % (Auto) Towner % (Auto) Eos % (Auto) Baso % (Auto) Absolute Neuts (auto) Absolute Lymphs (auto) Nucleated RBC % Sodium Potassium Chloride Carbon Dioxide Anion Gap BUN Creatinine Estim Creat Clear Calc Est GFR (MDRD) Af Amer Est GFR (MDRD) Non-Af BUN/Creatinine Ratio Glucose Calcium Phosphorus Magnesium Total Bilirubin AST ALT Alkaline Phosphatase Total Protein Albumin Globulin Albumin/Globulin Ratio Procalcitonin 0.78 H MRSA (PCR) POSITIVE H POC Glucose 102 09/08/19 09/09/19 09/09/19 23:02 04:40 04:40 WBC 10.0 RBC 3.53 L Hgb 10.9 L Hct 35.8 L MCV 101.4 H MCH 30.9 MCHC 30.4 L RDW Std Deviation 63.1 H RDW Coeff of Susan 17.6 H Plt Count 132 L MPV 8.9 Immature Gran % (Auto) 0.900 Neut % (Auto) 70.6 H Lymph % (Auto) 19.7 Towner % (Auto) 8.3 Eos % (Auto) 0.3 Baso % (Auto) 0.2 Absolute Neuts (auto) 7.1 Absolute Lymphs (auto) 1.98 Nucleated RBC % 0.2 Sodium 138 Potassium 3.7 Chloride 104 Carbon Dioxide 29.0 Anion Gap 5 BUN 17 Creatinine 2.62 H Estim Creat Clear Calc 16.44 Est GFR (MDRD) Af Amer 23 L Est GFR (MDRD) Non-Af 19 L BUN/Creatinine Ratio 6.5 L Glucose 53 L Calcium 8.2 L Phosphorus 3.4 Magnesium 2.0 Total Bilirubin 0.40 AST 28 ALT 14 Alkaline Phosphatase 182 H Total Protein 6.4 Albumin 1.8 L Globulin 4.6 H Albumin/Globulin Ratio 0.4 L Procalcitonin MRSA (PCR) POC Glucose 134 H 09/09/19 09/09/19 09/09/19 05:19 05:43 12:59 WBC RBC Hgb Hct MCV MCH MCHC RDW Std Deviation RDW Coeff of Susan Plt Count MPV Immature Gran % (Auto) Neut % (Auto) Lymph % (Auto) Towner % (Auto) Eos % (Auto) Baso % (Auto) Absolute Neuts (auto) Absolute Lymphs (auto) Nucleated RBC % Sodium Potassium Chloride Carbon Dioxide Anion Gap BUN Creatinine Estim Creat Clear Calc Est GFR (MDRD) Af Amer Est GFR (MDRD) Non-Af BUN/Creatinine Ratio Glucose Calcium Phosphorus Magnesium Total Bilirubin AST ALT Alkaline Phosphatase Total Protein Albumin Globulin Albumin/Globulin Ratio Procalcitonin MRSA (PCR) POC Glucose 40 L* 111 H 43 L* 09/09/19 09/09/19 09/09/19 13:01 13:05 14:30 WBC RBC Hgb Hct MCV MCH MCHC RDW Std Deviation RDW Coeff of Susan Plt Count MPV Immature Gran % (Auto) Neut % (Auto) Lymph % (Auto) Towner % (Auto) Eos % (Auto) Baso % (Auto) Absolute Neuts (auto) Absolute Lymphs (auto) Nucleated RBC % Sodium Potassium Chloride Carbon Dioxide Anion Gap BUN Creatinine Estim Creat Clear Calc Est GFR (MDRD) Af Amer Est GFR (MDRD) Non-Af BUN/Creatinine Ratio Glucose 50 L Calcium Phosphorus Magnesium Total Bilirubin AST ALT Alkaline Phosphatase Total Protein Albumin Globulin Albumin/Globulin Ratio Procalcitonin MRSA (PCR) POC Glucose 40 L* 72 09/09/19 09/09/19 09/10/19 16:40 22:55 04:00 WBC 7.2 RBC 3.27 L Hgb 10.0 L Hct 33.3 L MCV 101.8 H MCH 30.6 MCHC 30.0 L RDW Std Deviation 64.2 H RDW Coeff of Susan 17.5 H Plt Count 110 L MPV 9.0 Immature Gran % (Auto) 0.400 Neut % (Auto) 65.3 Lymph % (Auto) 22.8 Towner % (Auto) 8.4 Eos % (Auto) 2.8 Baso % (Auto) 0.3 Absolute Neuts (auto) 4.7 Absolute Lymphs (auto) 1.63 Nucleated RBC % 0 Sodium Potassium Chloride Carbon Dioxide Anion Gap BUN Creatinine Estim Creat Clear Calc Est GFR (MDRD) Af Amer Est GFR (MDRD) Non-Af BUN/Creatinine Ratio Glucose Calcium Phosphorus Magnesium Total Bilirubin AST ALT Alkaline Phosphatase Total Protein Albumin Globulin Albumin/Globulin Ratio Procalcitonin MRSA (PCR) POC Glucose 89 113 H 09/10/19 09/10/19 04:00 06:19 WBC RBC Hgb Hct MCV MCH MCHC RDW Std Deviation RDW Coeff of Susan Plt Count MPV Immature Gran % (Auto) Neut % (Auto) Lymph % (Auto) Towner % (Auto) Eos % (Auto) Baso % (Auto) Absolute Neuts (auto) Absolute Lymphs (auto) Nucleated RBC % Sodium 138 Potassium 3.9 Chloride 104 Carbon Dioxide 28.0 Anion Gap 6 BUN 24 H Creatinine 3.24 H Estim Creat Clear Calc 13.29 Est GFR (MDRD) Af Amer 18 L Est GFR (MDRD) Non-Af 15 L BUN/Creatinine Ratio 7.4 L Glucose 121 H Calcium 7.9 L Phosphorus 2.9 Magnesium 1.8 Total Bilirubin 0.40 AST 31 ALT 18 Alkaline Phosphatase 198 H Total Protein 6.1 L Albumin 1.7 L Globulin 4.4 H Albumin/Globulin Ratio 0.4 L Procalcitonin MRSA (PCR) POC Glucose 107 Microbiology 09/06/19 20:00 Blood Culture (Wb) - No Site/Description Given Blood Culture - Preliminary No growth in 48 hours. 09/08/19 09:12 Mucosa - Nasopharyngeal Respiratory Panel (PCR) - Final Clinical Impression(s) from Imaging Studies Chest X-Ray 09/08/19 09:05 IMPRESSION: The tip of the right internal jugular venous catheter is in the proximal portion of the superior vena cava. Mild increased markings at the lung bases slightly worse on the left side. Cardiomegaly. Electronically Signed: Eric Mckay at 9:25 EDT , Service support , Brain MRI 09/08/19 10:30 IMPRESSION: Mild atrophy and periventricular white matter ischemic changes without evidence for acute infarct Electronically Signed: Alan Reyes MD at 16:23 EDT , Service support , Head MRA 09/08/19 10:30 IMPRESSION: Atherosclerotic disease with most severe involvement of the distal left vertebral and proximal M2 segments of the middle cerebral arteries Electronically Signed: Alan Reyes MD at 17:16 EDT , Service support , Medical Necessity - Tobacco Use Smoking Status: Former smoker Assessment/Plan All Active Problems (Last Reviewed 05/23/19 @ 04:[address] Buddy Olson MD) Altered mental status (Acute) Hypotension (Acute) RECOMMENDATIONS: 1. Okay from my perspective to discontinue antimicrobials and monitor the patient clinically. 2. Avoid sedating medications. 3. Continue lactulose. 4. Continue hemodialysis per nephrology recommendations. 5. Continue Midodrine. 6. Okay to remove central venous catheter. 7. The patient is medically stable for transfer out of the intensive care unit. 8. Physical therapy to work with the patient. Case management to assist with disposition needs. IMPRESSIONS: 1. Shock, distributive versus hypovolemic Resolved. Although SBP was an initial consideration, there has not been a definitive source of infection identified during the patient's hospitalization. Given that she did have a rather large volume paracentesis completed, it is certainly possible that a hypovolemic etiology in the setting of cirrhosis is a possibility. At this time, given the lack of source of identified infection, I am okay with discontinuing antimicrobials and monitoring the patient clinically. The patient has been weaned from all vasopressor support at this time. She does have a baseline systolic blood pressure around 90 mmHg. Continue Midodrine per outpatient regimen. 2. Toxic/metabolic encephalopathy Improved. Continue current supportive measures as noted above. Avoid sedating medications. MRI brain was unremarkable. 3. End-stage renal disease on hemodialysis Nephrology currently following to assist with hemodialysis needs. 4. 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 Continue lactulose per home regimen. Ammonia level is within normal limits. Continue/scale insulin coverage. This note was generated with [employer] dictation software. It may contain incorrect words, spelling, and punctuation that were not noted in checking the note before signing. Inpatient E&M: 73952 Subs Hosp L3
[2019-09-10] MEDS: Calcium Acetate 667 MG Capsule PO ×3 (09:33→17:55)
[2019-09-10] MEDS: Nystatin Powder 15gm Bottle 1 APPLIC TOPICAL ×2 (09:34→22:42)
[2019-09-10] MEDS: Pantoprazole Sodium 20 MG Tablet PO (09:35)
[2019-09-10] MEDS: Gabapentin 100 MG Capsule PO (09:35)
[2019-09-10] MEDS: Folic Acid/Vitamin B Comp W-C 1 Capsule 1 CAP PO (09:35)
--- NOTE | 2019-09-10 09:52 | PCM.PN.REN ---
Subjective: seen on dialysis,off pressors. BP stable with fluid removal so far. More responsive, alert oriented today. Complains of pain all over. - Physical Exam Vitals/I&O's: Vital Signs Temp Pulse Resp BP Pulse Ox 97.0 F L 78 15 124/55 H 100 09/10/19 04:00 09/10/19 08:00 09/10/19 08:00 09/10/19 08:00 09/10/19 08:00 Oxygen Flow Rate (L/min) 2 Oxygen Delivery Method Nasal Cannula Weight: 93.7 kg Body Mass Index (BMI) 31.4 Finger Stick Blood Glucose 99 Intake and Output for Last 24 Hours 09/08/19 09/09/19 09/10/19 23:59 23:59 23:59 Intake Total 3277.21 / 3284.26 2149.57 / 2149.57 838.75 / 838.75 Output Total 0 / 0 0 / 0 0 / 0 Balance 3277.21 / 3284.26 2149.57 / 2149.57 838.75 / 838.75 General: Alert, Oriented x3 Lungs: Clear to auscultation, Diminished Cardiovascular: Irregular Rate - afib Abdomen: Bowel Sounds Present, Soft, Distended, Obese Extremities: Edema Psych/Mental Status: Normal Affect, Appropriate, Alert and oriented to time, place, person, mood and affect Microbiology Past 72 Hours 09/06/19 20:00 Blood Culture (Wb) - No Site/Description Given Blood Culture - Preliminary No growth in 48 hours. 09/08/19 09:12 Mucosa - Nasopharyngeal Respiratory Panel (PCR) - Final Laboratory Results 09/09/19 12:59: POC Glucose 43 L* 09/09/19 13:01: POC Glucose 40 L* 09/09/19 13:05: Glucose 50 L 09/09/19 14:30: POC Glucose 72 09/09/19 16:40: POC Glucose 89 09/09/19 22:55: POC Glucose 113 H 09/10/19 04:00: WBC 7.2, RBC 3.27 L, Hgb 10.0 L, Hct 33.3 L, MCV 101.8 H, MCH 30.6, MCHC 30.0 L, RDW Std Deviation 64.2 H, RDW Coeff of Susan 17.5 H, Plt Count 110 L, MPV 9.0, Immature Gran % (Auto) 0.400, Neut % (Auto) 65.3, Lymph % (Auto) 22.8, Frio % (Auto) 8.4, Eos % (Auto) 2.8, Baso % (Auto) 0.3, Absolute Neuts (auto) 4.7, Absolute Lymphs (auto) 1.63, Nucleated RBC % 0 09/10/19 04:00: Sodium 138, Potassium 3.9, Chloride 104, Carbon Dioxide 28.0, Anion Gap 6, BUN 24 H, Creatinine 3.24 H, Estim Creat Clear Calc 13.29, Est GFR (MDRD) Af Amer 18 L, Est GFR (MDRD) Non-Af 15 L, BUN/Creatinine Ratio 7.4 L, Glucose 121 H, Calcium 7.9 L, Phosphorus 2.9, Magnesium 1.8, Total Bilirubin 0.40, AST 31, ALT 18, Alkaline Phosphatase 198 H, Total Protein 6.1 L, Albumin 1.7 L, Globulin 4.4 H, Albumin/Globulin Ratio 0.4 L 09/10/19 06:19: POC Glucose 107 Current Medications Acetaminophen (Tylenol) 650 mg PO Q6H PRN PRN PRN Reason: PAIN (-02/27)/FEVER Last Admin: 09/10/19 04:19 Dose: 650 mg Documented by: Atorvastatin Calcium (Lipitor) 80 mg PO QHS [facility] Last Admin: 09/09/19 21:28 Dose: 80 mg Documented by: Calamine/Phenol (Calmoseptine Ointment) 1 applic TOPICAL BID [facility]; Protocol Calcium Acetate (Phoslo Gel Cap) 667 mg PO TIDCM [facility] Last Admin: 09/10/19 09:33 Dose: 667 mg Documented by: Chlorhexidine Gluconate () 1 each TOPICAL DAILY [facility] Last Admin: 09/10/19 02:00 Dose: 1 each Documented by: Cholecalciferol (Vitamin D (25mcg)) 5,000 unit PO MoWeFr@1000 [facility] Last Admin: 09/10/19 09:35 Dose: 5,000 unit Documented by: Dextrose (D50w Syringe) 0 gm IV X1 PRN; Protocol PRN Reason: Hypoglycemia Last Admin: 09/09/19 13:36 Dose: 12.5 gm Documented by: Docusate Sodium (Colace) 100 mg PO BID [facility] Last Admin: 09/10/19 09:34 Dose: Not Given Documented by: Gabapentin (Neurontin) 200 mg PO DINNER [facility] Gabapentin (Neurontin) 100 mg PO DAILY [facility] Last Admin: 09/10/19 09:35 Dose: 100 mg Documented by: Glucagon () 1 mg IM .X1 PRN PRN Reason: Hypoglycemia Hydralazine HCl (Apresoline Iv) 5 mg IV Q30M PRN PRN Reason: to maintain BP goals Sodium Chloride () 250 mls @ 15 mls/hr IV .[id number] PRN PRN Reason: Saline Flush Sodium Chloride () 250 mls @ 15 mls/hr IV .[id number] PRN PRN Reason: Additional IVPB Infusion Vancomycin IV Pharmacy to Dose (1 ea/ Sodium Chloride) 500 mls @ 250 mls/hr IV X1 PRN; Protocol PRN Reason: Rx to Dose Insulin Human Lispro (Humalog Kwikpen (Bkc)) 0 unit SC Q6 [facility]; Protocol Last Admin: 09/10/19 06:20 Dose: Not Given Documented by: Lactulose (Chronulac, Cephulac) 40 gm PO Q12 [facility] Last Admin: 09/09/19 21:27 Dose: 40 gm Documented by: Melatonin (Melatonin) 5 mg PO QHS [facility] Midodrine (Proamatine) 10 mg PO TID [facility] Last Admin: 09/10/19 06:09 Dose: 10 mg Documented by: Multivit/Ca Carb/B Cmplx/FA/Prenat (Nephrocaps, Renaphro) 1 capsule PO DAILY [facility] Last Admin: 09/10/19 09:35 Dose: 1 capsule Documented by: Nitroglycerin (Nitrostat) 0.4 mg SUBLINGUAL Q5M PRN PRN Reason: CARDIAC/CHEST PAIN Nystatin (Mycostatin Powder) 1 applic TOPICAL BID [facility]; Protocol Last Admin: 09/10/19 09:34 Dose: 1 applic Documented by: Ondansetron HCl (Zofran) 4 mg IV Q8H PRN PRN PRN Reason: NAUSEA/VOMITING Ondansetron HCl (Zofran Odt) 4 mg PO Q6H PRN PRN PRN Reason: NAUSEA/VOMITING Oxycodone HCl (Oxyir) 5 mg PO Q8H PRN PRN PRN Reason: Pain Score 6-10/10 Pantoprazole Sodium (Protonix) 20 mg PO DAILY [facility] Last Admin: 09/10/19 09:35 Dose: 20 mg Documented by: Pramipexole Dihydrochloride (Mirapex) 0.25 mg PO QHS [facility] Last Admin: 09/09/19 21:28 Dose: 0.25 mg Documented by: Sodium Chloride () 10 - 40 ml IV UD PRN PRN Reason: SALINE FLUSH Last Admin: 09/10/19 04:23 Dose: 20 ml Documented by: Medical Necessity - Tobacco Use Smoking Status: Former smoker Assessment/Plan 1. ESRD on hemodialysis Sunday, Sunday, Sunday. Seen on dialysis. Proceeding with stable BP, off pressor support 2. Anemia hemoglobin stable 3. Lethargy with altered mental status return to baseline. Cautious use of narcotics. 4. Hypotension improved 5. Liver cirrhosis with ascites requiring frequent paracentesis.
[2019-09-10 11:25] LABS: Bedside Glucose 88 mg/dL (70-110)
--- NOTE | 2019-09-10 12:50 | DIALYSIS ---
HD x 3.5 hours complete. Tolerated tx well. Ran on 3k bath. UF of 3300ml. Used left arm fistula. [place] removed post tx. Pressures applied x 10 minutes. Hemostasis achieved. Fresh gauze and tape applied. Report was given to EDIN Llanos.
--- NOTE | 2019-09-10 13:29 | CASEMGMT ---
Social Work Note SW met with pt to confirm discharge plans. Per notes from today, pt is more alert and orientated x3, and answering questions appropriately with staff. MARGO introduced self and role at [facility]. Pt is alert and orientated. Pt confirms that she was living with her sister Eva before she came to [facility]. Pt states she wishes to return to her sister's home at discharge. SW informed pt that PT/OT are recommending SNF for pt and asked pt if she would be agreeable to going to SNF. Pt states, I would prefer to go back to my sister's home. SW asked pt if this worker could call her Landen to discuss discharge plans. Pt agreeable to this worker calling her Landen and calling her sister Eva to discuss discharge plans. MARGO placed a call to pt's Landen. Landen states that he also would prefer for pt to return to Eva's house at discharge. MARGO informed Landen that PT/OT are recommending SNF and per previous notes, Eva had informed RN WILLIE that she is feeling overwhelmed taking care of pt. Landen states he was never aware that Eva was feeling overwhelmed. MARGO informed Landen that this worker would call Eva as well to discuss discharge plans. Landen states understanding. MARGO placed a call to pt's sister Eva ([phone]) and left message requesting call back to discuss discharge plans. MARGO waiting for call back. MARGO spoke with physician who is recommending SNF for pt and states pt should be ready for discharge in the next 24-48 hours. Plan: TBD. Staff feels pt needs SNF at discharge however at this time pt and pt's Landen are wanting pt to return to pt's sister Eva's home at discharge. Matilde Burton MEDICAL STAFF SERVICES MANAGER, [employer]
[2019-09-10] MEDS: oxyCODONE 5 MG Tablet PO ×3 (14:44→20:09)
[2019-09-10] MEDS: Lactulose 20 GM/30 ML UDC 40 GM PO (14:45)
[2019-09-10] MEDS: Menthol/Lanolin/Calamine/Znox 113 GM Tube 1 APPLIC TOPICAL ×2 (14:45→22:15)
--- NOTE | 2019-09-10 15:47 | VDUE_ITS ---
Reason For Study: pain Right Proximal Did not compress Jugular V due to pain. Spontaneous and phasic flow noted. Right subclavian vein is spontaneous, widely patent, phasic, with no intraluminal echogenicity noted. Right Lower Arm Right radial vein is compressible. Right ulnar vein is compressible. Right Arm Right axillary vein is spontaneous, patent, phasic, competent, compressible and demonstrates augmentation. Right brachial vein is compressible. Cephalic V is dilated and noncompressible at the antecubital space. Right basilic vein is compressible. Prelim to Dr. Holland. Limited study due to pain. Interpretation Summary Superficial thrombophlebitis right cephalic vein at the antecubital space. Limited examination secondary to pain. Right jugular vein was not compressed but demonstrated spontaneous and phasic flow. Patient complained of pain on attempt to compress. No findings of acute deep vein thrombosis right upper extremity Ordering Physician: Ryann Holland Performed By: Brandon Britt RVT ?
[2019-09-10] MEDS: fentaNYL 100 MCG/2 ML Ampul 25 MCG IV (16:41)
[2019-09-10] MEDS: Gabapentin 100 MG Capsule 200 MG PO (16:42)
[2019-09-10] MEDS: Insulin Lispro 100 UNIT/ML INSULN.PEN SC ×2 (17:55→23:19)
[2019-09-10 17:56] LABS: Bedside Glucose 155 mg/dL (70-110)
[2019-09-10] MEDS: Atorvastatin Calcium 80 MG Tablet PO (21:39)
[2019-09-10] MEDS: MELATONIN 10 MG TABLET 5 MG PO (21:40)
[2019-09-10] MEDS: Pramipexole Di-HCl 0.25 MG Tablet PO (21:42)
[2019-09-10 23:31] LABS: Bedside Glucose 227 mg/dL (70-110)
[2019-09-11] VITALS (12 sets, daily range): BP systolic 121–155; BP diastolic 42–59; PULSE 59–89; RESP 16–18; TEMP 36.4–36.7; O2SAT 95–100
[2019-09-11] MEDS: oxyCODONE 5 MG Tablet PO ×3 (02:07→13:40)
[2019-09-11] MEDS: 0.9% Saline Lock 10 ML Syringe IV ×6 (02:17→14:30)
[2019-09-11] MEDS: fentaNYL 100 MCG/2 ML Ampul 25 MCG IV ×2 (05:03→14:21)
[2019-09-11 05:52] LABS: Absolute Lymphocyte Count 1.62 X10^3/uL (0.83-4.51); Absolute Neutrophil Count 3.7 X10^3/uL (2.0-7.7); Basophil# 0.03 X10^3/uL; Basophil% 0.5 % (0-1); Eosinophils% 3.3 % (0-5); Hematocrit 32.3 % (37-47); Hemoglobin 9.5 g/dL (12.0-15.0); Lymphocyte # 1.62 X10^3/ul (4.0); Lymphocyte % 26.3 % (19-41); Mean Corp Hgb Conc 29.4 g/dL (32-36); Mean Corpuscular Hgb 30.4 pg (27.0-32.0); Mean Corpuscular Volume 103.5 fL (81-99); Mean Platelet Vol. 9.2 fl (6.2-12.0); Monocyte# 0.58 X10^3/uL; Monocyte% 9.4 % (0-10); NRBC Flagged by Analyzer 0.5 % (0-5); Neutrophil # 3.68 X10^3/uL (2.7-7.7); Neutrophil % 59.8 % (47-70); POSITIVE MORPHOLOGY YES; Platelet Count 103 K/mm3 (150-450); RBC Distribution Width CV 17.5 % (11.6-14.6); RBC Distribution Width SD 65.3 fl (35.1-43.9); Red Blood Count 3.12 M/mm3 (4.2-5.4); White Blood Count 6.2 K/mm3 (4.4-11.0)
[2019-09-11 06:08] LABS: ALB/GLOB Ratio 0.4 RATIO (0.9-2.4); AST(SGOT) 32 U/L (15-37); Alanine Aminotransfer ALT/SGPT 20 U/L (13-56); Albumin, Serum 1.7 g/dL (3.2-5.0); Alkaline Phosphatase 234 U/L (45-117); Anion Gap 4 (5-15); BUN 18 mg/dL (7-18); Calcium,Total 7.6 mg/dL (8.5-10.1); Chloride 101 mmol/L (98-107); Creatinine, Serum 2.56 mg/dL (0.55-1.02); EST Glomerular Filtration Rate 19 mL/min (>60); Est Glom Filt Rate - Afr Amer 23 mL/min (>60); Estimated Creatinine Clearance 16.82 ml/min; Globulin 4.4 g/dL (2.2-4.2); Glucose 155 mg/dL (74-106); Magnesium 1.9 mg/dL (1.6-2.6); Phosphorus 2.1 mg/dL (2.5-4.9); Potassium 3.9 mmol/L (3.5-5.1); Protein, Total 6.1 g/dL (6.4-8.2); Sodium Level 136 mmol/L (136-145)
[2019-09-11 06:16] LABS: Differential Indicated SCAN CRITERIA MET
[2019-09-11] MEDS: Midodrine HCl 5 MG Tablet 10 MG PO ×3 (06:49→22:00)
--- NOTE | 2019-09-11 06:51 | PN_ITS ---
Subjective: Patient seated upright in the bedside chair today and notes that her discomfort is improved to the right upper extremity although with palpation still painful. Edema is improving with wraps and elevation. Patient does state that she has some generalized discomfort and pain but with resumption of her chronic pain regimen notes this is improving. Continue to encourage patient to consider fdc facility as her home environment is not effective enough for her current presentation and abilities as well as her chronic comorbidities. P atient denies fevers, chills, nausea, emesis, abdominal pain, chest pain or dyspnea. Objective: Physical Examination: General: Awake, alert, oriented x3, seated upright in the bedside chair in PCU, talkative, returned to baseline. Skin: normal color, turgor, no icterus, cyanosis except very staged ecchymoses to extremities especially right upper extremity which is now wrapped, less edematous and elevated, chronic venous stasis skin changes bilateral lower extremities. HEENT: AT/NC, EOMI, BL equal pupils, chronic blind L eye, PERRLA, improved MMM. Lungs: Diminished breath sounds bilaterally, greater bases, no evidence of distress, no rales, ronchi or wheezing. Heart: Regular rate and rhythm; no gallop, rub audible, + SM. Abdomen: soft, no obvious TTP, moderately distended, normal bowel sounds. Extremities: no cyanosis, clubbing, chronic bilateral lower extremity venous skin changes and see skin. Neurological: Awake, alert, oriented x3, seated upright in the bedside chair in PCU, talkative, returned to baseline; cognitive function now baseline intact; cranial nerves II-XII grossly normal except those associated with vision as noted, moving all 4 extremities, strength improving but remains moderately to severely globally decreased secondary to acute presentation. Psychiatric: affect appears normal, more interactive, back to baseline mental status, no acute evidence of depressive or anxiety feelings. Vitals/I&O's: Vital Signs Temp Pulse Resp BP Pulse Ox 97.9 F 71 18 129/58 H 100 09/11/19 05:11 09/11/19 06:32 09/11/19 05:11 09/11/19 06:32 09/11/19 05:11 Oxygen Flow Rate (L/min) 3 Oxygen Delivery Method Nasal Cannula Weight: 206 lb 9.17 oz Body Mass Index (BMI) 31.4 Finger Stick Blood Glucose 99 Intake and Output for Last 24 Hours 04/21/20 04/22/20 04/23/20 23:59 23:59 23:59 Intake Total 2149.57 / 2149.57 1198.75 / 1198.75 120 / 120 Output Total 0 / 0 0 / 0 Balance 2149.57 / 2149.57 1198.75 / 1198.75 120 / 120 Microbiology Past 72 Hours 09/06/19 20:00 Blood Culture (Wb) - No Site/Description Given Blood Culture - Preliminary No growth in 48 hours. 09/08/19 09:12 Mucosa - Nasopharyngeal Respiratory Panel (PCR) - Final Laboratory Results 09/10/19 11:22: POC Glucose 88 09/10/19 17:50: POC Glucose 155 H 09/10/19 23:18: POC Glucose 227 H 09/11/19 05:30: WBC 6.2, RBC 3.12 L, Hgb 9.5 L, Hct 32.3 L, MCV 103.5 H, MCH 30.4, MCHC 29.4 L, RDW Std Deviation 65.3 H, RDW Coeff of Susan 17.5 H, Plt Count 103 L, MPV 9.2, Immature Gran % (Auto) 0.700, Neut % (Auto) 59.8, Lymph % (Auto) 26.3, Lewis % (Auto) 9.4, Eos % (Auto) 3.3, Baso % (Auto) 0.5, Absolute Neuts (auto) 3.7, Absolute Lymphs (auto) 1.62, Nucleated RBC % 0.5 09/11/19 05:30: Sodium 136, Potassium 3.9, Chloride 101, Carbon Dioxide 31.0, Anion Gap 4 L, BUN 18, Creatinine 2.56 H, Estim Creat Clear Calc 16.82, Est GFR (MDRD) Af Amer 23 L, Est GFR (MDRD) Non-Af 19 L, BUN/Creatinine Ratio 7.0 L, Glucose 155 H, Calcium 7.6 L, Phosphorus 2.1 L, Magnesium 1.9, Total Bilirubin 0.40, AST 32, ALT 20, Alkaline Phosphatase 234 H, Total Protein 6.1 L, Albumin 1.7 L, Globulin 4.4 H, Albumin/Globulin Ratio 0.4 L Current Medications Acetaminophen (Tylenol) 650 mg PO Q6H PRN PRN PRN Reason: PAIN (1-10/10)/FEVER Last Admin: 09/10/19 23:08 Dose: 650 mg Documented by: Atorvastatin Calcium (Lipitor) 80 mg PO QHS [facility] Last Admin: 09/10/19 21:39 Dose: 80 mg Documented by: Calamine/Phenol (Calmoseptine Ointment) 1 applic TOPICAL BID [facility]; Protocol Last Admin: 09/10/19 22:15 Dose: 1 applicatio Documented by: Calcium Acetate (Phoslo Gel Cap) 667 mg PO TIDCM [facility] Last Admin: 09/10/19 17:55 Dose: 667 mg Documented by: Chlorhexidine Gluconate () 1 each TOPICAL DAILY [facility] Last Admin: 09/10/19 02:00 Dose: 1 each Documented by: Cholecalciferol (Vitamin D (25mcg)) 5,000 unit PO MoWeFr@1000 [facility] Last Admin: 09/10/19 09:35 Dose: 5,000 unit Documented by: Dextrose (D50w Syringe) 0 gm IV X1 PRN; Protocol PRN Reason: Hypoglycemia Last Admin: 09/09/19 13:36 Dose: 12.5 gm Documented by: Docusate Sodium (Colace) 100 mg PO BID [facility] Last Admin: 09/10/19 22:51 Dose: Not Given Documented by: Fentanyl Citrate (Sublimaze (100mcg Ampule)) 25 mcg IV Q8H PRN PRN PRN Reason: severe pain, 6-10/10 Last Admin: 09/11/19 05:03 Dose: 25 mcg Documented by: Gabapentin (Neurontin) 200 mg PO DINNER [facility] Last Admin: 09/10/19 16:42 Dose: 200 mg Documented by: Gabapentin (Neurontin) 100 mg PO DAILY [facility] Last Admin: 09/10/19 09:35 Dose: 100 mg Documented by: Glucagon () 1 mg IM .X1 PRN PRN Reason: Hypoglycemia Hydralazine HCl (Apresoline Iv) 5 mg IV Q30M PRN PRN Reason: to maintain BP goals Sodium Chloride () 250 mls @ 15 mls/hr IV .[id number] PRN PRN Reason: Saline Flush Sodium Chloride () 250 mls @ 15 mls/hr IV .[id number] PRN PRN Reason: Additional IVPB Infusion Insulin Human Lispro (Humalog Kwikpen (Bkc)) 0 unit SC ACHS [facility]; Protocol Last Admin: 09/11/19 06:48 Dose: Not Given Documented by: Lactulose (Chronulac, Cephulac) 40 gm PO Q12 [facility] Last Admin: 09/10/19 22:51 Dose: Not Given Documented by: Melatonin (Melatonin) 5 mg PO QHS [facility] Last Admin: 09/10/19 21:40 Dose: 5 mg Documented by: Midodrine (Proamatine) 10 mg PO TID [facility] Last Admin: 09/11/19 06:49 Dose: 10 mg Documented by: Multivit/Ca Carb/B Cmplx/FA/Prenat (Nephrocaps, Renaphro) 1 capsule PO DAILY [facility] Last Admin: 09/10/19 09:35 Dose: 1 capsule Documented by: Nitroglycerin (Nitrostat) 0.4 mg SUBLINGUAL Q5M PRN PRN Reason: CARDIAC/CHEST PAIN Nystatin (Mycostatin Powder) 1 applic TOPICAL BID [facility]; Protocol Last Admin: 09/10/19 22:42 Dose: 1 applic Documented by: Ondansetron HCl (Zofran) 4 mg IV Q8H PRN PRN PRN Reason: NAUSEA/VOMITING Ondansetron HCl (Zofran Odt) 4 mg PO Q6H PRN PRN PRN Reason: NAUSEA/VOMITING Oxycodone HCl (Oxyir) 5 mg PO Q4H PRN PRN PRN Reason: Pain Score 6-10/10 Last Admin: 09/11/19 02:07 Dose: 5 mg Documented by: Pantoprazole Sodium (Protonix) 20 mg PO DAILY [facility] Last Admin: 09/10/19 09:35 Dose: 20 mg Documented by: Pramipexole Dihydrochloride (Mirapex) 0.25 mg PO QHS [facility] Last Admin: 09/10/19 21:42 Dose: 0.25 mg Documented by: Sodium Chloride () 10 - 40 ml IV UD PRN PRN Reason: SALINE FLUSH Last Admin: 09/11/19 05:35 Dose: 30 ml Documented by: STROKE Vital Signs/Narrative: Vital Signs Temp Pulse Resp BP BP Pulse Ox 09/11/19 06:32 71 129/58 H 09/11/19 05:11 97.9 F 72 18 121/59 H 100 09/11/19 03:11 85 Medical Necessity - Tobacco Use Smoking Status: Former smoker Assessment/Plan All Active Problems (Last Reviewed 05/23/19 @ 04:[address] Buddy Olson MD) Altered mental status (Acute) Hypotension (Acute) The patient is a 74 y/o F w/ PMHx: Chronically blind L Eye, Chronic Hepatic Cirrhosis, Former tobacco use, ESRD on HD, CAD s/p OR w/ PCI, Diabetes mellitus type II, HTN (now chronically hypotensive with HD regimen), HLD, PAF, AOCD, Chronic pancytopenia, GERD w/ Hx GI bleed, RLS who presents to the [facility] on 09/06/19 secondary to history of confusion with significantly altered mental stat us and hypotension transferred as a direct from [facility] patient concurrent history of recent right eye vision changes. 1. Acute Encephalopathy secondary to Shock Unclear Specific Etiology, Possible Distributive given Cirrhotic Status, Possible Hypovolemic versus LOWER SUSPICION Infectious including possible SBP versus developing PNA, Possible GP/GN Organism: Maintained ICU status following decline following admission with planned 09/10/19 PCU status change given improvement. Recent significant high volume 09/04/19 paracentesis possible etiology. Initially required pressors but has been d/c since 09/08/19. IV stress dose hydrocortisone d/c 09/08/19. Patient w/ failed attempted arterial line with successful central line placement which will be removed 09/10/19 per ICU physician clearance. 09/08/19 HD without marked improvement but improved 09/09/19 into 09/10/19. 09/08/19 added and continued vancomycin and Zosyn therapy with+ MRSA screen given unclear etiology but remains afebrile, no WBC elevation or marked shift therefore per discussions with ICU physician, d/c abx therapy on 09/10/19 with continued appropriate vital signs including afebrile, repeat 09/11/2019 CBC with WC 6.2 without shift. Blood culture NGTD x 48 hours. Noted negative COVID testing from [place] obtained prior to her transfer to [facility]. PT/OT/CM consultations with planned SNF placement. 2. ? Right Eye Vision Deficits, Transient, Resolved, RULED OUT CVA: OSH ED w/ unremarkable CT Head. Recent 05/23/19 ECHO w/ normal LV size, normal LV systolic function, EF 55%, mild focal AV calcifications, mild to moderate aortic s tenosis, small pericardial effusion, moderate tricuspid valve insufficiency. Maintained on the ICU, MRI Brain with mild atrophy and periventricular white matter ischemic changes without evidence for acute infarct, MRA of the head with atherosclerotic disease with most severe involvement of the distal left vertebral and proximal M2 segments of the middle cerebral arteries MRA Head, carotid US pending, PT/OT/Speech/Nutrition evaluation per protocol. Given recent GI bleed, holding ASA, continued on statin. Aspiration and fall precautions. Improved mentation 09/08-09/09 therefore deferred Neurology evaluation. PT/OT/CM consultations with recommended SNF placement. 09/09/19 R eye vision decrease resolution noted per patient. 3. Chronic hepatic cirrhosis, compensated with as noted #1 possible SBP versus hypovolemic given high volume recent paracentesis: Admission ammonia level 20, repeat 09/07/2018, likely not etiology for encephalopathy. Suspect infectious etiology as metabolic improved and continued encephalopathy. Most recent paracentesis on 09/04/19, 09/08/19 vancomycin and Zosyn added for possible SBP with MRSA screen positive; however, given improvement as noted, abx d/c on 09/10/19. Continued on lactulose. 4. ESRD: Admission BUN/Cr 13/2.65. Recent HD Sunday per Dr. Crawley without improvement unfortunately given significant encephalopathy. Will continue dialysis, Sunday, Sunday, Sunday with Dr. Crawley continued consultation, continued on . Prior recommendations per Dr. Crawley to patient for transition to hospice but patient has declined. 09/11/2019 BUN/creatinine 18/2.56. 5. AOCD w/ Recent Suspected GI bleed w/ Acute on Chronic Anemia: Recent admission 08/07 with acute on chronic anemia with recent 03/2019 EGD and colonoscopy at that time with diverticulosis with no evidence of active bleeding, PRBC administered at that time with serial trending which remained stable with discharge to fdc facility at that time with continued outpatient follow-up. Continued aspirin therapy to be held. 09/11/2019 hemoglobin 9.5. 6. CAD: s/p cutting Balloon and TAMI proximal LAD, rotational atherectomy RCA with two overlapping TAMI, aspirin held with recent history of GI bleed in 07/2019, continued on atorvastatin, not on BP regimen given ongoing hypotension with history of de-escalation off all of her hypertensive medications over the last several months. 7. Diabetes mellitus type II with neuropathy with Hypoglycemia: Overnight x 2 hypoglycemia noted, d/c 09/09/19 long-acting lantus q HS with now improved BS with ongoing trending with a low on otherwise improved, continue ADA diet, restarted 09/10/19 gabapentin, accu checks w/ ISS. 8. Hyperlipidemia: Continue home statin regimen. 9. Restless leg syndrome: We will continue patient Mirapex regimen. 10. GERD: We will maintain on Protonix. 11. DVT Prophylaxis: SCDs, defer chemoprophylaxis given recent GI bleed. 12. Code Status: Full Code. Inpatient E&M: 91691 Subs Hosp L2
[2019-09-11 06:53] LABS: Anisocytosis 2+; Macrocytosis 1+; Platelet Estimate SLT DEC (ADEQ); Polychromasia RARE
[2019-09-11 07:16] LABS: Bedside Glucose 140 mg/dL (70-110)
[2019-09-11] MEDS: Calcium Acetate 667 MG Capsule PO (07:47)
[2019-09-11] MEDS: Pantoprazole Sodium 20 MG Tablet PO (09:13)
[2019-09-11] MEDS: Gabapentin 100 MG Capsule PO (09:13)
[2019-09-11] MEDS: Nystatin Powder 15gm Bottle 1 APPLIC TOPICAL ×2 (09:13→21:57)
[2019-09-11] MEDS: Folic Acid/Vitamin B Comp W-C 1 Capsule 1 CAP PO (09:13)
[2019-09-11] MEDS: Menthol/Lanolin/Calamine/Znox 113 GM Tube 1 APPLIC TOPICAL ×2 (09:16→21:58)
--- NOTE | 2019-09-11 09:47 | PN_ITS ---
Subjective: The patient was seen and examined at the bedside this morning. Events from the last 24 hours have been reviewed. The patient is currently afebrile, hemodynamically stable and maintaining appropriate oxygen saturations on 3 L/min via nasal cannula. Objective: The patient's most recent lab work, culture data and imaging studies have all been personally reviewed. Respiratory viral panel was negative. Blood cultures have shown no growth to date. MRI brain revealed mild atrophy and periventricular white matter ischemic changes without evidence for acute infarction. - Physical Exam Vitals/I&O's: Vital Signs Temp Pulse Resp BP Pulse Ox 97.9 F 89 18 129/58 H 98 09/11/19 05:11 09/11/19 07:00 09/11/19 05:11 09/11/19 06:32 09/11/19 07:30 Oxygen Flow Rate (L/min) 3 Oxygen Delivery Method Nasal Cannula Weight: 206 lb 9.17 oz Body Mass Index (BMI) 31.4 Finger Stick Blood Glucose 99 Intake and Output for Last 24 Hours 09/09/19 09/10/19 09/11/19 23:59 23:59 23:59 Intake Total 2149.57 / 2149.57 1198.75 / 1198.75 120 / 120 Output Total 0 / 0 0 / 0 Balance 2149.57 / 2149.57 1198.75 / 1198.75 120 / 120 General: Alert, Cooperative HEENT: Atraumatic, Normocephalic Oral: No Gingival or Mucosal Lesions/ Ulcerations Neck: Supple, No Nodes, Trachea Midline Lungs: No rhonchi, No wheeze, No rales, Diminished Cardiovascular: Normal S1, Normal S2, Irregular Rate, Murmur Abdomen: Bowel Sounds Present, Soft, Non Tender Extremities: No clubbing, No cyanosis, Edema Skin: No breakdown Musculoskeletal: No Muscle Wasting Lymphatic: No Cervical, Supraclavicular, or Inguinal Adenopathy Neurological: Neuro grossly intact Psych/Mental Status: Restless Labs (Last 48 Hours) 09/09/19 09/09/19 09/09/19 12:59 13:01 13:05 WBC RBC Hgb Hct MCV MCH MCHC RDW Std Deviation RDW Coeff of Susan Plt Count MPV Immature Gran % (Auto) Neut % (Auto) Lymph % (Auto) [place] % (Auto) Eos % (Auto) Baso % (Auto) Absolute Neuts (auto) Absolute Lymphs (auto) Nucleated RBC % Platelet Estimate Polychromasia Anisocytosis Macrocytosis Sodium Potassium Chloride Carbon Dioxide Anion Gap BUN Creatinine Estim Creat Clear Calc Est GFR (MDRD) Af Amer Est GFR (MDRD) Non-Af BUN/Creatinine Ratio Glucose 50 L Calcium Phosphorus Magnesium Total Bilirubin AST ALT Alkaline Phosphatase Total Protein Albumin Globulin Albumin/Globulin Ratio POC Glucose 43 L* 40 L* 09/09/19 09/09/19 09/09/19 14:30 16:40 22:55 WBC RBC Hgb Hct MCV MCH MCHC RDW Std Deviation RDW Coeff of Susan Plt Count MPV Immature Gran % (Auto) Neut % (Auto) Lymph % (Auto) [place] % (Auto) Eos % (Auto) Baso % (Auto) Absolute Neuts (auto) Absolute Lymphs (auto) Nucleated RBC % Platelet Estimate Polychromasia Anisocytosis Macrocytosis Sodium Potassium Chloride Carbon Dioxide Anion Gap BUN Creatinine Estim Creat Clear Calc Est GFR (MDRD) Af Amer Est GFR (MDRD) Non-Af BUN/Creatinine Ratio Glucose Calcium Phosphorus Magnesium Total Bilirubin AST ALT Alkaline Phosphatase Total Protein Albumin Globulin Albumin/Globulin Ratio POC Glucose 72 89 113 H 09/10/19 09/10/19 09/10/19 04:00 04:00 06:19 WBC 7.2 RBC 3.27 L Hgb 10.0 L Hct 33.3 L MCV 101.8 H MCH 30.6 MCHC 30.0 L RDW Std Deviation 64.2 H RDW Coeff of Susan 17.5 H Plt Count 110 L MPV 9.0 Immature Gran % (Auto) 0.400 Neut % (Auto) 65.3 Lymph % (Auto) 22.8 [place] % (Auto) 8.4 Eos % (Auto) 2.8 Baso % (Auto) 0.3 Absolute Neuts (auto) 4.7 Absolute Lymphs (auto) 1.63 Nucleated RBC % 0 Platelet Estimate Polychromasia Anisocytosis Macrocytosis Sodium 138 Potassium 3.9 Chloride 104 Carbon Dioxide 28.0 Anion Gap 6 BUN 24 H Creatinine 3.24 H Estim Creat Clear Calc 13.29 Est GFR (MDRD) Af Amer 18 L Est GFR (MDRD) Non-Af 15 L BUN/Creatinine Ratio 7.4 L Glucose 121 H Calcium 7.9 L Phosphorus 2.9 Magnesium 1.8 Total Bilirubin 0.40 AST 31 ALT 18 Alkaline Phosphatase 198 H Total Protein 6.1 L Albumin 1.7 L Globulin 4.4 H Albumin/Globulin Ratio 0.4 L POC Glucose 107 09/10/19 09/10/19 09/10/19 11:22 17:50 23:18 WBC RBC Hgb Hct MCV MCH MCHC RDW Std Deviation RDW Coeff of Susan Plt Count MPV Immature Gran % (Auto) Neut % (Auto) Lymph % (Auto) [place] % (Auto) Eos % (Auto) Baso % (Auto) Absolute Neuts (auto) Absolute Lymphs (auto) Nucleated RBC % Platelet Estimate Polychromasia Anisocytosis Macrocytosis Sodium Potassium Chloride Carbon Dioxide Anion Gap BUN Creatinine Estim Creat Clear Calc Est GFR (MDRD) Af Amer Est GFR (MDRD) Non-Af BUN/Creatinine Ratio Glucose Calcium Phosphorus Magnesium Total Bilirubin AST ALT Alkaline Phosphatase Total Protein Albumin Globulin Albumin/Globulin Ratio POC Glucose 88 155 H 227 H 09/11/19 09/11/19 09/11/19 05:30 05:30 06:44 WBC 6.2 RBC 3.12 L Hgb 9.5 L Hct 32.3 L MCV 103.5 H MCH 30.4 MCHC 29.4 L RDW Std Deviation 65.3 H RDW Coeff of Susan 17.5 H Plt Count 103 L MPV 9.2 Immature Gran % (Auto) 0.700 Neut % (Auto) 59.8 Lymph % (Auto) 26.3 [place] % (Auto) 9.4 Eos % (Auto) 3.3 Baso % (Auto) 0.5 Absolute Neuts (auto) 3.7 Absolute Lymphs (auto) 1.62 Nucleated RBC % 0.5 Platelet Estimate SLT DEC Polychromasia RARE Anisocytosis 2+ Macrocytosis 1+ Sodium 136 Potassium 3.9 Chloride 101 Carbon Dioxide 31.0 Anion Gap 4 L BUN 18 Creatinine 2.56 H Estim Creat Clear Calc 16.82 Est GFR (MDRD) Af Amer 23 L Est GFR (MDRD) Non-Af 19 L BUN/Creatinine Ratio 7.0 L Glucose 155 H Calcium 7.6 L Phosphorus 2.1 L Magnesium 1.9 Total Bilirubin 0.40 AST 32 ALT 20 Alkaline Phosphatase 234 H Total Protein 6.1 L Albumin 1.7 L Globulin 4.4 H Albumin/Globulin Ratio 0.4 L POC Glucose 140 H Microbiology 09/06/19 20:00 Blood Culture (Wb) - No Site/Description Given Blood Culture - Preliminary No growth in 48 hours. Clinical Impression(s) from Imaging Studies Chest X-Ray 09/08/19 09:05 IMPRESSION: The tip of the right internal jugular venous catheter is in the proximal portion of the superior vena cava. Mild increased markings at the lung bases slightly worse on the left side. Cardiomegaly. Electronically Signed: Eric Mckay at 9:25 EDT , Service support , Brain MRI 09/08/19 10:30 IMPRESSION: Mild atrophy and periventricular white matter ischemic changes without evidence for acute infarct Electronically Signed: Alan Reyes MD at 16:23 EDT , Service support , Head MRA 09/08/19 10:30 IMPRESSION: Atherosclerotic disease with most severe involvement of the distal left vertebral and proximal M2 segments of the middle cerebral arteries Electronically Signed: Alan Reyes MD at 17:16 EDT , Service support , Current Medications Acetaminophen (Tylenol) 650 mg PO Q6H PRN PRN PRN Reason: PAIN (-02/27)/FEVER Last Admin: 09/10/19 23:08 Dose: 650 mg Documented by: Atorvastatin Calcium (Lipitor) 80 mg PO QHS [facility] Last Admin: 09/10/19 21:39 Dose: 80 mg Documented by: Calamine/Phenol (Calmoseptine Ointment) 1 applic TOPICAL BID [facility]; Protocol Last Admin: 09/11/19 09:16 Dose: 1 applicatio Documented by: Chlorhexidine Gluconate () 1 each TOPICAL DAILY [facility] Last Admin: 09/11/19 09:16 Dose: Not Given Documented by: Cholecalciferol (Vitamin D (25mcg)) 5,000 unit PO MoWeFr@1000 [facility] Last Admin: 09/10/19 09:35 Dose: 5,000 unit Documented by: Dextrose (D50w Syringe) 0 gm IV X1 PRN; Protocol PRN Reason: Hypoglycemia Last Admin: 09/09/19 13:36 Dose: 12.5 gm Documented by: Docusate Sodium (Colace) 100 mg PO BID [facility] Last Admin: 09/11/19 09:15 Dose: Not Given Documented by: Fentanyl Citrate (Sublimaze (100mcg Ampule)) 25 mcg IV Q8H PRN PRN PRN Reason: severe pain, 6-02/27 Last Admin: 09/11/19 05:03 Dose: 25 mcg Documented by: Gabapentin (Neurontin) 200 mg PO DINNER [facility] Last Admin: 09/10/19 16:42 Dose: 200 mg Documented by: Gabapentin (Neurontin) 100 mg PO DAILY [facility] Last Admin: 09/11/19 09:13 Dose: 100 mg Documented by: Glucagon () 1 mg IM .X1 PRN PRN Reason: Hypoglycemia Hydralazine HCl (Apresoline Iv) 5 mg IV Q30M PRN PRN Reason: to maintain BP goals Sodium Chloride () 250 mls @ 15 mls/hr IV .[id number] PRN PRN Reason: Saline Flush Sodium Chloride () 250 mls @ 15 mls/hr IV .[id number] PRN PRN Reason: Additional IVPB Infusion Insulin Human Lispro (Humalog Kwikpen (Bkc)) 0 unit SC ACHS [facility]; Protocol Last Admin: 09/11/19 06:48 Dose: Not Given Documented by: Lactulose (Chronulac, Cephulac) 40 gm PO Q12 [facility] Last Admin: 09/11/19 09:15 Dose: Not Given Documented by: Melatonin (Melatonin) 5 mg PO QHS [facility] Last Admin: 09/10/19 21:40 Dose: 5 mg Documented by: Midodrine (Proamatine) 10 mg PO TID [facility] Last Admin: 09/11/19 06:49 Dose: 10 mg Documented by: Multivit/Ca Carb/B Cmplx/FA/Prenat (Nephrocaps, Renaphro) 1 capsule PO DAILY [facility] Last Admin: 09/11/19 09:13 Dose: 1 capsule Documented by: Nitroglycerin (Nitrostat) 0.4 mg SUBLINGUAL Q5M PRN PRN Reason: CARDIAC/CHEST PAIN Nystatin (Mycostatin Powder) 1 applic TOPICAL BID [facility]; Protocol Last Admin: 09/11/19 09:13 Dose: 1 applic Documented by: Ondansetron HCl (Zofran) 4 mg IV Q8H PRN PRN PRN Reason: NAUSEA/VOMITING Ondansetron HCl (Zofran Odt) 4 mg PO Q6H PRN PRN PRN Reason: NAUSEA/VOMITING Oxycodone HCl (Oxyir) 5 mg PO Q4H PRN PRN PRN Reason: Pain Score 6-10/10 Last Admin: 09/11/19 09:13 Dose: 5 mg Documented by: Pantoprazole Sodium (Protonix) 20 mg PO DAILY [facility] Last Admin: 09/11/19 09:13 Dose: 20 mg Documented by: Pramipexole Dihydrochloride (Mirapex) 0.25 mg PO QHS [facility] Last Admin: 09/10/19 21:42 Dose: 0.25 mg Documented by: Sodium Chloride () 10 - 40 ml IV UD PRN PRN Reason: SALINE FLUSH Last Admin: 09/11/19 05:35 Dose: 30 ml Documented by: Medical Necessity - Tobacco Use Smoking Status: Former smoker Assessment/Plan All Active Problems (Last Reviewed 05/23/19 @ 04:[address] Buddy Olson MD) Altered mental status (Acute) Hypotension (Acute) RECOMMENDATIONS: 1. Wean supplemental oxygen to maintain saturations at or above 90%. 2. Continue lactulose. 3. Continue hemodialysis per nephrology recommendations. 4. Continue Midodrine. 5. Encourage incentive spirometer use and mobilize patient as tolerated. 6. Physical therapy to work with the patient. Case management to assist with disposition needs. IMPRESSIONS: 1. Shock, distributive versus hypovolemic Resolved. Although SBP was an initial consideration, there has not been a definitive source of infection identified during the patient's hospitalization. Given that she did have a rather large volume paracentesis completed, it is certainly possible that a hypovolemic etiology in the setting of cirrhosis is a possibility. At this time, given the lack of source of identified infection, I am okay with holding antimicrobials and monitoring the patient clinically. The patient has been weaned from all vasopressor support at this time. She does have a baseline systolic blood pressure around 90 mmHg. Continue Midodrine per outpatient regimen. 2. Toxic/metabolic encephalopathy Improved. Continue current supportive measures as noted above. Avoid sedating medications. MRI brain was unremarkable. 3. End-stage renal disease on hemodialysis Nephrology currently following to assist with hemodialysis needs. 4. 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 Continue lactulose per home regimen. Ammonia level is within normal limits. Continue/scale insulin coverage. This note was generated with [employer] dictation software. It may contain incorrect words, spelling, and punctuation that were not noted in checking the note before signing. Inpatient E&M: 75190 Subs Hosp L2
--- NOTE | 2019-09-11 10:02 | CASEMGMT ---
SW spoke with patient, introduced self and role at [facility]. Patient kept wincing due to pain per her report. She did not want SW to get her nurse or do anything else for her. SW spoke with her about going to SNF before returning home. She normally goes to [facility] so SW spoke with her about going back. She said she thinks it would be safer if she went home due to the [place]ck[place] Virus. SW let her know that [facility] does not have any positive cases right now. She was in agreement with MARGO making a referral to [facility] and if she does get better she will go home with her sister and if not she has the option of [facility]. MARGO called Candelaria at [facility] with referral and also faxed referral. Plan: [facility] vs home with sister Marylou Schneider Ernesto RAMIREZ CRIBBING SETTER
[2019-09-11] MEDS: Insulin Lispro 100 UNIT/ML INSULN.PEN SC ×3 (11:24→21:59)
--- NOTE | 2019-09-11 11:33 | CASEMGMT ---
MARGO received a call from Candelaria at [facility] and she said they can take patient. She did ask MARGO to please fax the COVID 19 results from [facility]. MARGO faxed these negative results to [facility]. Plan: [facility] vs home with sister. Marylou RAMIREZ [employer] SPECIFICATION INSPECTOR
[2019-09-11 11:40] LABS: Bedside Glucose 185 mg/dL (70-110)
--- NOTE | 2019-09-11 13:10 | PCM.PN.REN ---
Subjective: transferred to pcu, back pain persists. Massive ascites - Physical Exam Vitals/I&O's: Vital Signs Temp Pulse Resp BP Pulse Ox 97.7 F L 63 18 128/42 H 96 09/11/19 11:00 09/11/19 11:00 09/11/19 11:00 09/11/19 11:00 09/11/19 11:00 Oxygen Flow Rate (L/min) 3 Oxygen Delivery Method Nasal Cannula Weight: 93.7 kg Body Mass Index (BMI) 31.4 Finger Stick Blood Glucose 99 Intake and Output for Last 24 Hours 09/09/19 09/10/19 09/11/19 23:59 23:59 23:59 Intake Total 2149.57 / 2149.57 1198.75 / 1198.75 360 / 360 Output Total 0 / 0 0 / 0 Balance 2149.57 / 2149.57 1198.75 / 1198.75 360 / 360 General: Alert, Oriented x3, Cooperative Lungs: Clear to auscultation Cardiovascular: Irregular Rate Abdomen: Bowel Sounds Present, Soft, Distended, Obese Extremities: Edema Psych/Mental Status: Alert and oriented to time, place, person, mood and affect Microbiology Past 72 Hours 09/06/19 20:00 Blood Culture (Wb) - No Site/Description Given Blood Culture - Preliminary No growth in 48 hours. 09/08/19 09:12 Mucosa - Nasopharyngeal Respiratory Panel (PCR) - Final Laboratory Results 09/10/19 17:50: POC Glucose 155 H 09/10/19 23:18: POC Glucose 227 H 09/11/19 05:30: WBC 6.2, RBC 3.12 L, Hgb 9.5 L, Hct 32.3 L, MCV 103.5 H, MCH 30.4, MCHC 29.4 L, RDW Std Deviation 65.3 H, RDW Coeff of Susan 17.5 H, Plt Count 103 L, MPV 9.2, Immature Gran % (Auto) 0.700, Neut % (Auto) 59.8, Lymph % (Auto) 26.3, [place] % (Auto) 9.4, Eos % (Auto) 3.3, Baso % (Auto) 0.5, Absolute Neuts (auto) 3.7, Absolute Lymphs (auto) 1.62, Nucleated RBC % 0.5, Platelet Estimate SLT DEC, Polychromasia RARE, Anisocytosis 2+, Macrocytosis 1+ 09/11/19 05:30: Sodium 136, Potassium 3.9, Chloride 101, Carbon Dioxide 31.0, Anion Gap 4 L, BUN 18, Creatinine 2.56 H, Estim Creat Clear Calc 16.82, Est GFR (MDRD) Af Amer 23 L, Est GFR (MDRD) Non-Af 19 L, BUN/Creatinine Ratio 7.0 L, Glucose 155 H, Calcium 7.6 L, Phosphorus 2.1 L, Magnesium 1.9, Total Bilirubin 0.40, AST 32, ALT 20, Alkaline Phosphatase 234 H, Total Protein 6.1 L, Albumin 1.7 L, Globulin 4.4 H, Albumin/Globulin Ratio 0.4 L 09/11/19 06:44: POC Glucose 140 H 09/11/19 11:22: POC Glucose 185 H Current Medications Acetaminophen (Tylenol) 650 mg PO Q6H PRN PRN PRN Reason: PAIN ()/FEVER Last Admin: 09/10/19 23:08 Dose: 650 mg Documented by: Atorvastatin Calcium (Lipitor) 80 mg PO QHS [facility] Last Admin: 09/10/19 21:39 Dose: 80 mg Documented by: Calamine/Phenol (Calmoseptine Ointment) 1 applic TOPICAL BID [facility]; Protocol Last Admin: 09/11/19 09:16 Dose: 1 applicatio Documented by: Chlorhexidine Gluconate () 1 each TOPICAL DAILY [facility] Last Admin: 09/11/19 09:16 Dose: Not Given Documented by: Cholecalciferol (Vitamin D (25mcg)) 5,000 unit PO MoWeFr@1000 [facility] Last Admin: 09/10/19 09:35 Dose: 5,000 unit Documented by: Dextrose (D50w Syringe) 0 gm IV X1 PRN; Protocol PRN Reason: Hypoglycemia Last Admin: 09/09/19 13:36 Dose: 12.5 gm Documented by: Docusate Sodium (Colace) 100 mg PO BID [facility] Last Admin: 09/11/19 09:15 Dose: Not Given Documented by: Fentanyl Citrate (Sublimaze (100mcg Ampule)) 25 mcg IV Q8H PRN PRN PRN Reason: severe pain, 6-02/27 Last Admin: 09/11/19 05:03 Dose: 25 mcg Documented by: Gabapentin (Neurontin) 200 mg PO DINNER [facility] Last Admin: 09/10/19 16:42 Dose: 200 mg Documented by: Gabapentin (Neurontin) 100 mg PO DAILY [facility] Last Admin: 09/11/19 09:13 Dose: 100 mg Documented by: Glucagon () 1 mg IM .X1 PRN PRN Reason: Hypoglycemia Hydralazine HCl (Apresoline Iv) 5 mg IV Q30M PRN PRN Reason: to maintain BP goals Sodium Chloride () 250 mls @ 15 mls/hr IV .[id number] PRN PRN Reason: Saline Flush Sodium Chloride () 250 mls @ 15 mls/hr IV .[id number] PRN PRN Reason: Additional IVPB Infusion Insulin Human Lispro (Humalog Kwikpen (Bkc)) 0 unit SC ACHS [facility]; Protocol Last Admin: 09/11/19 11:24 Dose: 1 u Documented by: Lactulose (Chronulac, Cephulac) 40 gm PO Q12 [facility] Last Admin: 09/11/19 09:15 Dose: Not Given Documented by: Melatonin (Melatonin) 5 mg PO QHS [facility] Last Admin: 09/10/19 21:40 Dose: 5 mg Documented by: Midodrine (Proamatine) 10 mg PO TID [facility] Last Admin: 09/11/19 06:49 Dose: 10 mg Documented by: Multivit/Ca Carb/B Cmplx/FA/Prenat (Nephrocaps, Renaphro) 1 capsule PO DAILY [facility] Last Admin: 09/11/19 09:13 Dose: 1 capsule Documented by: Nitroglycerin (Nitrostat) 0.4 mg SUBLINGUAL Q5M PRN PRN Reason: CARDIAC/CHEST PAIN Nystatin (Mycostatin Powder) 1 applic TOPICAL BID [facility]; Protocol Last Admin: 09/11/19 09:13 Dose: 1 applic Documented by: Ondansetron HCl (Zofran) 4 mg IV Q8H PRN PRN PRN Reason: NAUSEA/VOMITING Ondansetron HCl (Zofran Odt) 4 mg PO Q6H PRN PRN PRN Reason: NAUSEA/VOMITING Oxycodone HCl (Oxyir) 5 mg PO Q4H PRN PRN PRN Reason: Pain Score 6-10/10 Last Admin: 09/11/19 09:13 Dose: 5 mg Documented by: Pantoprazole Sodium (Protonix) 20 mg PO DAILY [facility] Last Admin: 09/11/19 09:13 Dose: 20 mg Documented by: Pramipexole Dihydrochloride (Mirapex) 0.25 mg PO QHS [facility] Last Admin: 09/10/19 21:42 Dose: 0.25 mg Documented by: Sodium Chloride () 10 - 40 ml IV UD PRN PRN Reason: SALINE FLUSH Last Admin: 09/11/19 05:35 Dose: 30 ml Documented by: Medical Necessity - Tobacco Use Smoking Status: Former smoker Assessment/Plan All Active Problems (Last Reviewed 05/23/19 @ 04:[address] Buddy Olson MD) Altered mental status (Acute) Hypotension (Acute) 1. ESRD on hemodialysis Sunday, Sunday, Sunday. Dialysis tomorrow 2. Anemia hemoglobin stable 3. Lethargy with altered mental status return to baseline. Cautious use of narcotics. 4. Hypotension improved continue midodrine. Pt has not been taking at home 5. Liver cirrhosis with ascites requiring frequent paracentesis. Scheduled on 09/17 as outpt. 6. Stop phosphate binder due to low phos
[2019-09-11] MEDS: Gabapentin 100 MG Capsule 200 MG PO (16:51)
[2019-09-11 17:11] LABS: Bedside Glucose 189 mg/dL (70-110)
[2019-09-11] MEDS: Pramipexole Di-HCl 0.25 MG Tablet PO (22:00)
[2019-09-11] MEDS: MELATONIN 10 MG TABLET 5 MG PO (22:01)
[2019-09-11] MEDS: Atorvastatin Calcium 80 MG Tablet PO (22:01)
[2019-09-11 22:10] LABS: Bedside Glucose 171 mg/dL (70-110)
[2019-09-12] VITALS (10 sets, daily range): BP systolic 135–150; BP diastolic 55–81; PULSE 60–82; RESP 18–19; TEMP 36.4–36.8; O2SAT 92–100
[2019-09-12 06:23] LABS: Absolute Lymphocyte Count 2.01 X10^3/uL (0.83-4.51); Absolute Neutrophil Count 4.1 X10^3/uL (2.0-7.7); Basophil# 0.05 X10^3/uL; Basophil% 0.7 % (0-1); Eosinophil# 0.29 X10^3/uL; Eosinophils% 4.1 % (0-5); Hematocrit 31.8 % (37-47); Hemoglobin 9.4 g/dL (12.0-15.0); Lymphocyte # 2.01 X10^3/ul (4.0); Lymphocyte % 28.3 % (19-41); Mean Corp Hgb Conc 29.6 g/dL (32-36); Mean Corpuscular Volume 101.6 fL (81-99); Mean Platelet Vol. 9.2 fl (6.2-12.0); Monocyte# 0.61 X10^3/uL; Monocyte% 8.6 % (0-10); NRBC Flagged by Analyzer 0 % (0-5); Neutrophil % 57.7 % (47-70); Platelet Count 108 K/mm3 (150-450); RBC Distribution Width CV 17.6 % (11.6-14.6); RBC Distribution Width SD 63.3 fl (35.1-43.9); Red Blood Count 3.13 M/mm3 (4.2-5.4); White Blood Count 7.1 K/mm3 (4.4-11.0)
[2019-09-12] MEDS: Midodrine HCl 5 MG Tablet 10 MG PO ×2 (06:35→14:36)
[2019-09-12 06:50] LABS: Bedside Glucose 133 mg/dL (70-110)
[2019-09-12 06:54] LABS: ALB/GLOB Ratio 0.4 RATIO (0.9-2.4); AST(SGOT) 24 U/L (15-37); Alanine Aminotransfer ALT/SGPT 17 U/L (13-56); Albumin, Serum 1.8 g/dL (3.2-5.0); Alkaline Phosphatase 226 U/L (45-117); Anion Gap 4 (5-15); BUN 25 mg/dL (7-18); BUN/Creat Ratio 7.6 RATIO (10-20); Calcium,Total 7.8 mg/dL (8.5-10.1); Chloride 99 mmol/L (98-107); Creatinine, Serum 3.27 mg/dL (0.55-1.02); EST Glomerular Filtration Rate 15 mL/min (>60); Est Glom Filt Rate - Afr Amer 18 mL/min (>60); Estimated Creatinine Clearance 13.17 ml/min; Globulin 4.6 g/dL (2.2-4.2); Glucose 136 mg/dL (74-106); Magnesium 1.8 mg/dL (1.6-2.6); Phosphorus 2.3 mg/dL (2.5-4.9); Potassium 4.2 mmol/L (3.5-5.1); Protein, Total 6.4 g/dL (6.4-8.2); Sodium Level 132 mmol/L (136-145)
--- NOTE | 2019-09-12 09:08 | PCM.PN.HOSP ---
Subjective: Patient with no acute events overnight per self and per nursing report. Still has some discomfort in the right upper extremity but edema and pain has improved. Discussed again that she only had a superficial clot at the axilla likely where an IV was but no DVT. She notes it is improving. She remains alert and oriented. She is amenable to detention facility transition as per family is overwhelmed at home. Patient denies fevers, chills, nausea, emesis, abdominal pain, chest pain or dyspnea. Objective: Physical Examination: General: Awake, alert, oriented x3, seated upright in the PCU bed, no acute distress. Skin: normal color, turgor, no icterus, cyanosis except very staged ecchymoses to extremities especially right upper extremity, wrapped, resolving edema, still discomfort with palpation, chronic venous stasis skin changes bilateral lower extremities. HEENT: AT/NC, EOMI, BL equal pupils, chronic blind L eye, PERRLA, MMM. Lungs: Diminished breath sounds bilaterally, greater bases, no evidence of distress, no rales, ronchi or wheezing. Heart: Regular rate and rhythm; no gallop, rub audible, + SM. Abdomen: soft, no obvious TTP, moderately distended, normal bowel sounds. Extremities: no cyanosis, clubbing, chronic bilateral lower extremity venous skin changes and see skin. Neurological: Awake, alert, oriented x3, seated upright in bed, returned to baseline; cognitive function baseline intact; cranial nerves II-XII grossly normal except those associated with vision as noted, moving all 4 extremities, strength improving but remains moderately to severely globally decreased. Psychiatric: affect appears normal, no acute evidence of depressive or anxiety feelings. Vitals/I&O's: Vital Signs Temp Pulse Resp BP Pulse Ox 98.2 F 72 18 145/60 H 98 09/12/19 06:31 09/12/19 07:00 09/12/19 06:31 09/12/19 06:31 09/12/19 06:52 Oxygen Flow Rate (L/min) 3 Oxygen Delivery Method Nasal Cannula Weight: 204 lb 9.423 oz Body Mass Index (BMI) 31.4 Finger Stick Blood Glucose 99 Intake and Output for Last 24 Hours 09/10/19 09/11/19 09/12/19 23:59 23:59 23:59 Intake Total 1198.75 / 1198.75 845 / 845 100 / 100 Output Total 0 / 0 Balance 1198.75 / 1198.75 845 / 845 100 / 100 Microbiology Past 72 Hours 09/06/19 20:00 Blood Culture (Wb) - No Site/Description Given Blood Culture - Final No growth in 5 days. Laboratory Results 09/11/19 11:22: POC Glucose 185 H 09/11/19 16:47: POC Glucose 189 H 09/11/19 21:55: POC Glucose 171 H 09/12/19 05:40: WBC 7.1, RBC 3.13 L, Hgb 9.4 L, Hct 31.8 L, MCV 101.6 H, MCH 30.0, MCHC 29.6 L, RDW Std Deviation 63.3 H, RDW Coeff of Susan 17.6 H, Plt Count 108 L, MPV 9.2, Immature Gran % (Auto) 0.600, Neut % (Auto) 57.7, Lymph % (Auto) 28.3, [place] % (Auto) 8.6, Eos % (Auto) 4.1, Baso % (Auto) 0.7, Absolute Neuts (auto) 4.1, Absolute Lymphs (auto) 2.01, Nucleated RBC % 0 09/12/19 05:40: Sodium 132 L, Potassium 4.2, Chloride 99, Carbon Dioxide 29.0, Anion Gap 4 L, BUN 25 H, Creatinine 3.27 H, Estim Creat Clear Calc 13.17, Est GFR (MDRD) Af Amer 18 L, Est GFR (MDRD) Non-Af 15 L, BUN/Creatinine Ratio 7.6 L, Glucose 136 H, Calcium 7.8 L, Phosphorus 2.3 L, Magnesium 1.8, Total Bilirubin 0.50, AST 24, ALT 17, Alkaline Phosphatase 226 H, Total Protein 6.4, Albumin 1.8 L, Globulin 4.6 H, Albumin/Globulin Ratio 0.4 L 09/12/19 06:34: POC Glucose 133 H Current Medications Acetaminophen (Tylenol) 650 mg PO Q6H PRN PRN PRN Reason: PAIN (1-1010)/FEVER Last Admin: 09/10/19 23:08 Dose: 650 mg Documented by: Atorvastatin Calcium (Lipitor) 80 mg PO QHS [facility] Last Admin: 04/23/20 22:01 Dose: 80 mg Documented by: Calamine/Phenol (Calmoseptine Ointment) 1 applic TOPICAL BID [facility]; Protocol Last Admin: 09/11/19 21:58 Dose: 1 applicatio Documented by: Chlorhexidine Gluconate () 1 each TOPICAL DAILY [facility] Last Admin: 09/11/19 09:16 Dose: Not Given Documented by: Cholecalciferol (Vitamin D (25mcg)) 5,000 unit PO MoWeFr@1000 [facility] Last Admin: 09/10/19 09:35 Dose: 5,000 unit Documented by: Dextrose (D50w Syringe) 0 gm IV X1 PRN; Protocol PRN Reason: Hypoglycemia Last Admin: 09/09/19 13:36 Dose: 12.5 gm Documented by: Docusate Sodium (Colace) 100 mg PO BID [facility] Last Admin: 09/11/19 21:57 Dose: Not Given Documented by: Fentanyl Citrate (Sublimaze (100mcg Ampule)) 25 mcg IV Q8H PRN PRN PRN Reason: severe pain, 6-02/27 Last Admin: 09/11/19 14:21 Dose: 25 mcg Documented by: Gabapentin (Neurontin) 200 mg PO DINNER [facility] Last Admin: 09/11/19 16:51 Dose: 200 mg Documented by: Gabapentin (Neurontin) 100 mg PO DAILY [facility] Last Admin: 09/11/19 09:13 Dose: 100 mg Documented by: Glucagon () 1 mg IM .X1 PRN PRN Reason: Hypoglycemia Hydralazine HCl (Apresoline Iv) 5 mg IV Q30M PRN PRN Reason: to maintain BP goals Sodium Chloride () 250 mls @ 15 mls/hr IV .[id number] PRN PRN Reason: Saline Flush Sodium Chloride () 250 mls @ 15 mls/hr IV .[id number] PRN PRN Reason: Additional IVPB Infusion Insulin Human Lispro (Humalog Kwikpen (Bkc)) 0 unit SC ACHS [facility]; Protocol Last Admin: 09/12/19 06:35 Dose: Not Given Documented by: Lactulose (Chronulac, Cephulac) 40 gm PO Q12 [facility] Last Admin: 09/11/19 21:57 Dose: Not Given Documented by: Melatonin (Melatonin) 5 mg PO QHS [facility] Last Admin: 09/11/19 22:01 Dose: 5 mg Documented by: Midodrine (Proamatine) 10 mg PO TID [facility] Last Admin: 09/12/19 06:35 Dose: 10 mg Documented by: Multivit/Ca Carb/B Cmplx/FA/Prenat (Nephrocaps, Renaphro) 1 capsule PO DAILY [facility] Last Admin: 09/11/19 09:13 Dose: 1 capsule Documented by: Nitroglycerin (Nitrostat) 0.4 mg SUBLINGUAL Q5M PRN PRN Reason: CARDIAC/CHEST PAIN Nystatin (Mycostatin Powder) 1 applic TOPICAL BID [facility]; Protocol Last Admin: 09/11/19 21:57 Dose: 1 applic Documented by: Ondansetron HCl (Zofran) 4 mg IV Q8H PRN PRN PRN Reason: NAUSEA/VOMITING Ondansetron HCl (Zofran Odt) 4 mg PO Q6H PRN PRN PRN Reason: NAUSEA/VOMITING Oxycodone HCl (Oxyir) 5 mg PO Q4H PRN PRN PRN Reason: Pain Score 6-10/10 Last Admin: 09/11/19 13:40 Dose: 5 mg Documented by: Pantoprazole Sodium (Protonix) 20 mg PO DAILY [facility] Last Admin: 09/11/19 09:13 Dose: 20 mg Documented by: Pramipexole Dihydrochloride (Mirapex) 0.25 mg PO QHS [facility] Last Admin: 09/11/19 22:00 Dose: 0.25 mg Documented by: Sodium Chloride () 10 - 40 ml IV UD PRN PRN Reason: SALINE FLUSH Last Admin: 09/11/19 14:30 Dose: 30 ml Documented by: STROKE Vital Signs/Narrative: Vital Signs Temp Pulse Resp BP Pulse Ox 09/12/19 07:00 72 09/12/19 06:52 98 09/12/19 06:31 98.2 F 72 18 145/60 H 98 Medical Necessity - Tobacco Use Smoking Status: Former smoker Assessment/Plan All Active Problems (Last Reviewed 05/23/19 @ 04:[address] Buddy Olson MD) Altered mental status (Acute) Hypotension (Acute) The patient is a 74 y/o F w/ PMHx: Chronically blind L Eye, Chronic Hepatic Cirrhosis, Former tobacco use, ESRD on HD, CAD s/p [place] w/ PCI, Diabetes mellitus type II, HTN (now chronically hypotensive with HD regimen), HLD, PAF, AOCD, Chronic pancytopenia, GERD w/ Hx GI bleed, RLS who presents to the [facility] ED on 09/06/19 secondary to history of confusion with significantly altered mental status and hypotension transferred as a direct from [facility] patient concurrent history of recent right eye vision changes. 1. Acute Encephalopathy secondary to Shock Unclear Specific Etiology, Possible Distributive given Cirrhotic Status, Possible Hypovolemic versus LOWER SUSPICION Infectious including possible SBP versus developing PNA, Possible GP/GN Organism: Maintained ICU status following decline following admission with planned 09/10/19 PCU status change given improvement. Recent significant high volume 09/04/19 paracentesis possible etiology. Initially required pressors but has been d/c since 09/08/19. IV stress dose hydrocortisone d/c 09/08/19. Patient w/ failed attempted arterial line with successful central line placement which will be removed 09/10/19 per ICU physician clearance. 09/08/19 HD without marked improvement but improved 09/09/19 into 09/10/19. 09/08/19 added and continued vancomycin and Zosyn therapy with+ MRSA screen given unclear etiology but remains afebrile, no WBC elevation or marked shift therefore per discussions with ICU physician, d/c abx therapy on 09/10/19 with continued appropriate vital signs including afebrile, repeat 09/11/2019 CBC with WC 6.2 without shift. Blood culture NGTD x 48 hours. Noted negative COVID testing from [place] obtained prior to her transfer to [facility]. PT/OT/CM consultations with planned SNF placement, possibly 09/12/19 as cleared for [facility] but awaiting precertification. 2. ? Right Eye Vision Deficits, Transient, Resolved, RULED OUT CVA: OSH ED w/ unremarkable CT Head. Recent 05/23/19 ECHO w/ normal LV size, normal LV systolic function, EF 55%, mild focal AV calcifications, mild to moderate aortic stenosis, small pericardial effusion, moderate tricuspid valve insufficiency. Maintained on the ICU, MRI Brain with mild atrophy and periventricular white matter ischemic changes without evidence for acute infarct, MRA of the head with atherosclerotic disease with most severe involvement of the distal left vertebral and proximal M2 segments of the middle cerebral arteries MRA Head, carotid US pending, PT/OT/Speech/Nutrition evaluation per protocol. Given recent GI bleed, holding ASA, continued on statin. Aspiration and fall precautions. Improved mentation 09/08-09/09 therefore deferred Neurology evaluation. PT/OT/CM consultations with recommended SNF placement. 09/09/19 R eye vision decrease resolution noted per patient. 3. Chronic hepatic cirrhosis, compensated with as noted #1 possible SBP versus hypovolemic given high volume recent paracentesis: Admission ammonia level 20, repeat 09/07/2018, likely not etiology for encephalopathy. Suspect infectious etiology as metabolic improved and continued encephalopathy. Most recent paracentesis on 09/04/19, 09/08/19 vancomycin and Zosyn added for possible SBP with MRSA screen positive; however, given improvement as noted, abx d/c on 09/10/19 with no fever onset nor labs concerns. Continued on lactulose. 4. ESRD: Admission BUN/Cr 13/2.65. Recent HD Sunday per Dr. Crawley without improvement unfortunately given significant encephalopathy. Will continue dialysis, Sunday, Sunday, Sunday with Dr. Crawley continued consultation, continued on Mid. Prior recommendations per Dr. Crawley to patient for transition to hospice but patient has declined. 09/12/2019 BUN/creatinine 25/3.27. 5. AOCD w/ Recent Suspected GI bleed w/ Acute on Chronic Anemia: Recent admission 08/07 with acute on chronic anemia with recent 03/2019 EGD and colonoscopy at that time with diverticulosis with no evidence of active bleeding, PRBC administered at that time with serial trending which remained stable with discharge to detention facility at that time with continued outpatient follow-up. Continued aspirin therapy to be held. 09/11/2019 hemoglobin 9.5. 6. CAD: s/p cutting Balloon and TAMI proximal LAD, rotational atherectomy RCA with two overlapping TAMI, aspirin held with recent history of GI bleed in 07/2019, continued on atorvastatin, not on BP regimen given ongoing hypotension with history of de-escalation off all of her hypertensive medications over the last several months. 7. Diabetes mellitus type II with neuropathy with Hypoglycemia: Overnight x 2 hypoglycemia noted, d/c 09/09/19 long-acting lantus q HS with now improved BS with ongoing trending, continue ADA diet, restarted 09/10/19 gabapentin, accu checks w/ ISS. We will plan to send to detention facility off long-acting with continued monitoring is likely once returns out of facility will have increased blood sugars again as noncompliant. 8. Hyperlipidemia: Continue home statin regimen. 9. Restless leg syndrome: We will continue patient Mirapex regimen. 10. GERD: We will maintain on Protonix. 11. DVT Prophylaxis: SCDs, defer chemoprophylaxis given recent GI bleed. 12. Code Status: Full Code. Inpatient E&M: 66484 Subs Hosp L2
--- NOTE | 2019-09-12 09:17 | PCM.TXEXTCAR ---
- Diet 09/09/19 10:29 Diet: Cardiac: Calorie-Controlled Food consistency:: Soft Liquid Consistency:: Regular/Thin Dietary Modifications:: Low Potassium Restriction Low Phosphorous Diet Is pt able to select menu?: No Diet Comments: Low Sodium How many daily calories?: 2000 calorie - Routine Orders/Code Status Enema Type: Fleetz Enema Frequency: Daily PRN Suppository Type: Dulcolax 10mg Suppository Frequency: Daily PRN O2 Liters per Minute: 3 O2 Frequency: Continuous Keep PO Greater than or Equal to (%): 92 Routine Lab Work: - - Repeat CBC, BMP within 1 week. Code Status: Full Code - Wound(s) R Forearm Wound Type: Skin Tear L Forearm Wound Type: Skin Tear cleft Wound Type: Pressure Injury - Suggestions for Active Care Change Position every (hours): 2 Hours to sit in a chair: 6 Times a day to sit in chair: 3 - Therapies Weight Bearing: Full weight bearing Extremity Affected:: Right Upper - Please maintain RUE elevation above heart when seated and in bed. Continue SNUG agnieszka wrap fingers to bicep and ice packs for superficial antecubital fossa clot discomfort. Physical Therapy: Eval and Treat Occupational Therapy: Eval and Treat - Allergies/Procedures Done in Hospital Allergies/Adverse Reactions: Allergies lisinopril Allergy (Severe, Verified 08/28/19 17:22) Angioedema nebivolol HCl [From Bystolic] Adverse Reaction (Severe, Verified 08/28/19 17:22) bradycardia BRADYCARDIA Procedures: - - MRA head, MRI brain, Carotid US, DVT US RUE. - Type of Care/Length of Stay Estimated LOS: Convalescent Care Less Than 30 days Type of Care Needed: Skilled Rehab Potential: Good Prognosis: Good - Additional Orders/Day of Discharge Additional Orders: (1) Maintain HOB. (2) Aspiration and fall precautions. (3) RUE elevation above heart when seated and in bed. (4) SNUG agnieszka wrap to RUE fingers to bicep, overlapping, no skin showing, redo q shift and PRN if comes undone to assist with edema. (5) If notice blood sugars increasing may consider restart long-acting insulin; however, recently d/c inpatient secondary to recurrent hypoglycemia. (6) Perform IS 10x/hr from 7a-7p H&P will serve as current which was dated: 09/06/19 Day of Discharge: 09/12/19 - Dietary and Speech Recommendations Dietitian Recommendations/Changes: Recommend CHO controlled, cardiac diet when appropriate for PO intake. Potassium and phos restriction as indicated. Will monitor. Nepro w/ meals - Follow Up Care Primary Care Physician: Davy Coleman MD [Primary Care Provider] - Please follow up with your Primary Care Physician in: Follow-up within 3-5 days hospital d/c and 1-2 days SNF discharge. Please Follow Up With: Anuradha Crawley DO When: Continue routine HD-Nephrology follow-up.
--- NOTE | 2019-09-12 09:45 | CASEMGMT ---
Social Work SW met with pt in room and introduced self and role of SW. Discussed with pt d/c plan and that physician feels pt is ready for d/c today and recommendations from physician and therapy are that pt go to SNF. Pt is agreeable to [facility] at [facility]. Phone call to Candel[facility] at [facility] and they can accept pt and will start precert. FELIPA Spivey
[2019-09-12] MEDS: 0.9% Saline Lock 10 ML Syringe IV (10:15)
[2019-09-12] MEDS: fentaNYL 100 MCG/2 ML Ampul 25 MCG IV (10:15)
[2019-09-12] MEDS: Nystatin Powder 15gm Bottle 1 APPLIC TOPICAL (10:20)
[2019-09-12] MEDS: Menthol/Lanolin/Calamine/Znox 113 GM Tube 1 APPLIC TOPICAL (10:20)
--- NOTE | 2019-09-12 10:50 | CASEMGMT ---
Social Work Return call from Candelaria at the [facility] and precert has been obtained, pt can be d/c to [facility] today. SW met with pt in room and informed of this. Pt now stating she is not sure she wants to go but instead may want to go home. Pt inquiring if she can return home and if it does not go well then go to [facility]. SW explained the process of getting from home to a SNF and that it will take time and it is not guaranteed. SW addressed issue that pt sister Eva is overwhelmed with caring for pt. Pt agrees that Eva is not able to care for her but states her daughters will be taking turns to care for her overnight. Pt wishing to talk to her daughters at this time. SW informed pt that SW will give pt time to talk to daughters and will be back in to see pt. FELIPA Spivey
--- NOTE | 2019-09-12 11:19 | PN.RENAL_ITS ---
Subjective: dialysis today. Clinically unchanged today. Refuses to go to ECF. Wants to go back to her sisters house in [place] - Physical Exam Vitals/I&O's: Vital Signs Temp Pulse Resp BP Pulse Ox 97.7 F L 70 18 135/57 H 99 09/12/19 10:10 09/12/19 10:10 09/12/19 10:10 09/12/19 10:10 09/12/19 10:10 Oxygen Flow Rate (L/min) 2 Oxygen Delivery Method Nasal Cannula Weight: 92.8 kg Body Mass Index (BMI) 31.4 Finger Stick Blood Glucose 99 Intake and Output for Last 24 Hours 09/10/19 09/11/19 09/12/19 23:59 23:59 23:59 Intake Total 1198.75 / 1198.75 845 / 845 100 / 100 Output Total 0 / 0 Balance 1198.75 / 1198.75 845 / 845 100 / 100 General: Alert, Oriented x3, Cooperative Cardiovascular: Irregular Rate - afib Abdomen: Distended - ascites Extremities: Edema - chronic Skin: - - ecchymosis in arm, mild erythema in legs chronic Psych/Mental Status: Alert and oriented to time, place, person, mood and affect Microbiology Past 72 Hours 09/06/19 20:00 Blood Culture (Wb) - No Site/Description Given Blood Culture - Final No growth in 5 days. Laboratory Results 09/11/19 11:22: POC Glucose 185 H 09/11/19 16:47: POC Glucose 189 H 09/11/19 21:55: POC Glucose 171 H 09/12/19 05:40: WBC 7.1, RBC 3.13 L, Hgb 9.4 L, Hct 31.8 L, MCV 101.6 H, MCH 30.0, MCHC 29.6 L, RDW Std Deviation 63.3 H, RDW Coeff of Susan 17.6 H, Plt Count 108 L, MPV 9.2, Immature Gran % (Auto) 0.600, Neut % (Auto) 57.7, Lymph % (Auto) 28.3, [place] % (Auto) 8.6, Eos % (Auto) 4.1, Baso % (Auto) 0.7, Absolute Neuts (auto) 4.1, Absolute Lymphs (auto) 2.01, Nucleated RBC % 0 09/12/19 05:40: Sodium 132 L, Potassium 4.2, Chloride 99, Carbon Dioxide 29.0, Anion Gap 4 L, BUN 25 H, Creatinine 3.27 H, Estim Creat Clear Calc 13.17, Est GFR (MDRD) Af Amer 18 L, Est GFR (MDRD) Non-Af 15 L, BUN/Creatinine Ratio 7.6 L, Glucose 136 H, Calcium 7.8 L, Phosphorus 2.3 L, Magnesium 1.8, Total Bilirubin 0.50, AST 24, ALT 17, Alkaline Phosphatase 226 H, Total Protein 6.4, Albumin 1.8 L, Globulin 4.6 H, Albumin/Globulin Ratio 0.4 L 09/12/19 06:34: POC Glucose 133 H Current Medications Acetaminophen (Tylenol) 650 mg PO Q6H PRN PRN PRN Reason: PAIN (-02/27)/FEVER Last Admin: 09/10/19 23:08 Dose: 650 mg Documented by: Atorvastatin Calcium (Lipitor) [address] [facility] Last Admin: 09/11/19 22:01 Dose: 80 mg Documented by: Calamine/Phenol (Calmoseptine Ointment) [address] [facility]; Protocol Last Admin: 09/12/19 10:20 Dose: 1 applicatio Documented by: Chlorhexidine Gluconate () [address] [facility] Last Admin: 09/12/19 10:19 Dose: Not Given Documented by: Cholecalciferol (Vitamin D (25mcg)) 5,000 unit PO MoWeFr@1000 [facility] Last Admin: 09/10/19 09:35 Dose: 5,000 unit Documented by: Dextrose (D50w Syringe) 0 gm IV X1 PRN; Protocol PRN Reason: Hypoglycemia Last Admin: 09/09/19 13:36 Dose: 12.5 gm Documented by: Docusate Sodium (Colace) [address] [facility] Last Admin: 09/12/19 10:19 Dose: Not Given Documented by: Fentanyl Citrate (Sublimaze (100mcg Ampule)) 25 mcg IV Q8H PRN PRN PRN Reason: severe pain, 6-02/27 Last Admin: 09/12/19 10:15 Dose: 25 mcg Documented by: Gabapentin (Neurontin) [address] [facility] Last Admin: 09/11/19 16:51 Dose: 200 mg Documented by: Gabapentin (Neurontin) [address] [facility] Last Admin: 09/11/19 09:13 Dose: 100 mg Documented by: Glucagon () 1 mg IM .X1 PRN PRN Reason: Hypoglycemia Hydralazine HCl (Apresoline Iv) 5 mg IV Q30M PRN PRN Reason: to maintain BP goals Sodium Chloride () 250 mls @ 15 mls/hr IV .[id number] PRN PRN Reason: Saline Flush Sodium Chloride () 250 mls @ 15 mls/hr IV .[id number] PRN PRN Reason: Additional IVPB Infusion Insulin Human Lispro (Humalog Kwikpen (Bkc)) [address] [facility]; Protocol Last Admin: 09/12/19 06:35 Dose: Not Given Documented by: Lactulose (Chronulac, Cephulac) [address] [facility] Last Admin: 09/12/19 10:19 Dose: Not Given Documented by: Melatonin (Melatonin) [address] [facility] Last Admin: 09/11/19 22:01 Dose: 5 mg Documented by: Midodrine (Proamatine) [address] [facility] Last Admin: 09/12/19 06:35 Dose: 10 mg Documented by: Multivit/Ca Carb/B Cmplx/FA/Prenat (Nephrocaps, Renaphro) [address] [facility] Last Admin: 09/11/19 09:13 Dose: 1 capsule Documented by: Nitroglycerin (Nitrostat) 0.4 mg SUBLINGUAL Q5M PRN PRN Reason: CARDIAC/CHEST PAIN Nystatin (Mycostatin Powder) [address] [facility]; Protocol Last Admin: 09/12/19 10:20 Dose: 1 applic Documented by: Ondansetron HCl (Zofran) 4 mg IV Q8H PRN PRN PRN Reason: NAUSEA/VOMITING Ondansetron HCl (Zofran Odt) 4 mg PO Q6H PRN PRN PRN Reason: NAUSEA/VOMITING Oxycodone HCl (Oxyir) 5 mg PO Q4H PRN PRN PRN Reason: Pain Score 6-10/10 Last Admin: 09/11/19 13:40 Dose: 5 mg Documented by: Pantoprazole Sodium (Protonix) [address] [facility] Last Admin: 09/11/19 09:13 Dose: 20 mg Documented by: Pramipexole Dihydrochloride (Mirapex) 0.[address] [facility] Last Admin: 09/11/19 22:00 Dose: 0.25 mg Documented by: Sodium Chloride () 10 - 40 ml IV UD PRN PRN Reason: SALINE FLUSH Last Admin: 09/12/19 10:15 Dose: 20 ml Documented by: Medical Necessity - Tobacco Use Smoking Status: Former smoker Assessment/Plan All Active Problems (Last Reviewed 05/23/19 @ 04:[address] Buddy Olson MD) Altered mental status (Acute) Hypotension (Acute) 1. ESRD on hemodialysis Sunday, Sunday, Sunday. Dialysis today with flud removal as tolerated 2. Anemia hemoglobin stable, [facility] on dialysis 3. Lethargy with altered mental status return to baseline. Cautious use of narcotics. She has been on narcotics at home prior to admit 4. Hypotension improved continue midodrine. Pt has not been taking at home. Will need to continue on discharge 5. Liver cirrhosis with ascites requiring frequent paracentesis. Scheduled on 09/17 as outpt. 6. Debilitation refusing ECF
--- NOTE | 2019-09-12 11:20 | PCM.PN.PUL ---
Subjective: The patient was seen and examined at the bedside this morning. Events from the last 24 hours have been reviewed. The patient is currently afebrile, hemodynamically stable and maintaining appropriate oxygen saturations on 2 L/min via nasal cannula. There are tentative plans for the [facility] to [facility] Objective: The patient's most recent lab work, culture data and imaging studies have all been personally reviewed. Respiratory viral panel was negative. Blood cultures have shown no growth to date. MRI brain revealed mild atrophy and periventricular white matter ischemic changes without evidence for acute infarction. - Physical Exam Vitals/I&O's: Vital Signs Temp Pulse Resp BP Pulse Ox 97.7 F L 77 18 135/57 H 99 09/12/19 10:10 09/12/19 11:00 09/12/19 10:10 09/12/19 10:10 09/12/19 10:10 Oxygen Flow Rate (L/min) 2 Oxygen Delivery Method Nasal Cannula Weight: 204 lb 9.423 oz Body Mass Index (BMI) 31.4 Finger Stick Blood Glucose 99 Intake and Output for Last 24 Hours 09/10/19 09/11/19 09/12/19 23:59 23:59 23:59 Intake Total 1198.75 / 1198.75 845 / 845 100 / 100 Output Total 0 / 0 Balance 1198.75 / 1198.75 845 / 845 100 / 100 General: Alert, No apparent distress HEENT: Atraumatic, Normocephalic Oral: No Gingival or Mucosal Lesions/ Ulcerations Neck: Supple, No Nodes, Trachea Midline Lungs: Diminished Cardiovascular: Normal S1, Normal S2, Irregular Rate, Murmur Abdomen: Bowel Sounds Present, Soft, Non Tender Extremities: No clubbing, No cyanosis, Edema Skin: No breakdown Musculoskeletal: No Muscle Wasting Neurological: Neuro grossly intact Psych/Mental Status: Normal Affect, Appropriate Labs (Last 48 Hours) 09/10/19 09/10/19 09/10/19 11:22 17:50 23:18 WBC RBC Hgb Hct MCV MCH MCHC RDW Std Deviation RDW Coeff of Susan Plt Count MPV Immature Gran % (Auto) Neut % (Auto) Lymph % (Auto) [place] % (Auto) Eos % (Auto) Baso % (Auto) Absolute Neuts (auto) Absolute Lymphs (auto) Nucleated RBC % Platelet Estimate Polychromasia Anisocytosis Macrocytosis Sodium Potassium Chloride Carbon Dioxide Anion Gap BUN Creatinine Estim Creat Clear Calc Est GFR (MDRD) Af Amer Est GFR (MDRD) Non-Af BUN/Creatinine Ratio Glucose Calcium Phosphorus Magnesium Total Bilirubin AST ALT Alkaline Phosphatase Total Protein Albumin Globulin Albumin/Globulin Ratio POC Glucose 88 155 H 227 H 09/11/19 09/11/19 09/11/19 05:30 05:30 06:44 WBC 6.2 RBC 3.12 L Hgb 9.5 L Hct 32.3 L MCV 103.5 H MCH 30.4 MCHC 29.4 L RDW Std Deviation 65.3 H RDW Coeff of Susan 17.5 H Plt Count 103 L MPV 9.2 Immature Gran % (Auto) 0.700 Neut % (Auto) 59.8 Lymph % (Auto) 26.3 [place] % (Auto) 9.4 Eos % (Auto) 3.3 Baso % (Auto) 0.5 Absolute Neuts (auto) 3.7 Absolute Lymphs (auto) 1.62 Nucleated RBC % 0.5 Platelet Estimate SLT DEC Polychromasia RARE Anisocytosis 2+ Macrocytosis 1+ Sodium 136 Potassium 3.9 Chloride 101 Carbon Dioxide 31.0 Anion Gap 4 L BUN 18 Creatinine 2.56 H Estim Creat Clear Calc 16.82 Est GFR (MDRD) Af Amer 23 L Est GFR (MDRD) Non-Af 19 L BUN/Creatinine Ratio 7.0 L Glucose 155 H Calcium 7.6 L Phosphorus 2.1 L Magnesium 1.9 Total Bilirubin 0.40 AST 32 ALT 20 Alkaline Phosphatase 234 H Total Protein 6.1 L Albumin 1.7 L Globulin 4.4 H Albumin/Globulin Ratio 0.4 L POC Glucose 140 H 09/11/19 09/11/19 09/11/19 11:22 16:47 21:55 WBC RBC Hgb Hct MCV MCH MCHC RDW Std Deviation RDW Coeff of Susan Plt Count MPV Immature Gran % (Auto) Neut % (Auto) Lymph % (Auto) [place] % (Auto) Eos % (Auto) Baso % (Auto) Absolute Neuts (auto) Absolute Lymphs (auto) Nucleated RBC % Platelet Estimate Polychromasia Anisocytosis Macrocytosis Sodium Potassium Chloride Carbon Dioxide Anion Gap BUN Creatinine Estim Creat Clear Calc Est GFR (MDRD) Af Amer Est GFR (MDRD) Non-Af BUN/Creatinine Ratio Glucose Calcium Phosphorus Magnesium Total Bilirubin AST ALT Alkaline Phosphatase Total Protein Albumin Globulin Albumin/Globulin Ratio POC Glucose 185 H 189 H 171 H 09/12/19 09/12/19 09/12/19 05:40 05:40 06:34 WBC 7.1 RBC 3.13 L Hgb 9.4 L Hct 31.8 L MCV 101.6 H MCH 30.0 MCHC 29.6 L RDW Std Deviation 63.3 H RDW Coeff of Susan 17.6 H Plt Count 108 L MPV 9.2 Immature Gran % (Auto) 0.600 Neut % (Auto) 57.7 Lymph % (Auto) 28.3 [place] % (Auto) 8.6 Eos % (Auto) 4.1 Baso % (Auto) 0.7 Absolute Neuts (auto) 4.1 Absolute Lymphs (auto) 2.01 Nucleated RBC % 0 Platelet Estimate Polychromasia Anisocytosis Macrocytosis Sodium 132 L Potassium 4.2 Chloride 99 Carbon Dioxide 29.0 Anion Gap 4 L BUN 25 H Creatinine 3.27 H Estim Creat Clear Calc 13.17 Est GFR (MDRD) Af Amer 18 L Est GFR (MDRD) Non-Af 15 L BUN/Creatinine Ratio 7.6 L Glucose 136 H Calcium 7.8 L Phosphorus 2.3 L Magnesium 1.8 Total Bilirubin 0.50 AST 24 ALT 17 Alkaline Phosphatase 226 H Total Protein 6.4 Albumin 1.8 L Globulin 4.6 H Albumin/Globulin Ratio 0.4 L POC Glucose 133 H Microbiology 09/06/19 20:00 Blood Culture (Wb) - No Site/Description Given Blood Culture - Final No growth in 5 days. Clinical Impression(s) from Imaging Studies Chest X-Ray 09/08/19 09:05 IMPRESSION: The tip of the right internal jugular venous catheter is in the proximal portion of the superior vena cava. Mild increased markings at the lung bases slightly worse on the left side. Cardiomegaly. Electronically Signed: Eric Mckay, at 9:25 EDT , Service support , Brain MRI 09/08/19 10:30 IMPRESSION: Mild atrophy and periventricular white matter ischemic changes without evidence for acute infarct Electronically Signed: Alan Reyes MD at 16:23 EDT , Service support , Head MRA 09/08/19 10:30 IMPRESSION: Atherosclerotic disease with most severe involvement of the distal left vertebral and proximal M2 segments of the middle cerebral arteries Electronically Signed: Alan Reyes MD at 17:16 EDT , Service support , Current Medications Acetaminophen (Tylenol) 650 mg PO Q6H PRN PRN PRN Reason: PAIN ()/FEVER Last Admin: 09/10/19 23:08 Dose: 650 mg Documented by: Atorvastatin Calcium (Lipitor) 80 mg PO QHS [facility] Last Admin: 09/11/19 22:01 Dose: 80 mg Documented by: Calamine/Phenol (Calmoseptine Ointment) 1 applic TOPICAL BID [facility]; Protocol Last Admin: 09/12/19 10:20 Dose: 1 applicatio Documented by: Chlorhexidine Gluconate () 1 each TOPICAL DAILY [facility] Last Admin: 09/12/19 10:19 Dose: Not Given Documented by: Cholecalciferol (Vitamin D (25mcg)) 5,000 unit PO MoWeFr@1000 [facility] Last Admin: 09/10/19 09:35 Dose: 5,000 unit Documented by: Dextrose (D50w Syringe) 0 gm IV X1 PRN; Protocol PRN Reason: Hypoglycemia Last Admin: 09/09/19 13:36 Dose: 12.5 gm Documented by: Docusate Sodium (Colace) 100 mg PO BID [facility] Last Admin: 09/12/19 10:19 Dose: Not Given Documented by: Fentanyl Citrate (Sublimaze (100mcg Ampule)) 25 mcg IV Q8H PRN PRN PRN Reason: severe pain, 6-02/27 Last Admin: 09/12/19 10:15 Dose: 25 mcg Documented by: Gabapentin (Neurontin) 200 mg PO DINNER [facility] Last Admin: 09/11/19 16:51 Dose: 200 mg Documented by: Gabapentin (Neurontin) 100 mg PO DAILY [facility] Last Admin: 09/11/19 09:13 Dose: 100 mg Documented by: Glucagon () 1 mg IM .X1 PRN PRN Reason: Hypoglycemia Hydralazine HCl (Apresoline Iv) 5 mg IV Q30M PRN PRN Reason: to maintain BP goals Sodium Chloride () 250 mls @ 15 mls/hr IV .[id number] PRN PRN Reason: Saline Flush Sodium Chloride () 250 mls @ 15 mls/hr IV .[id number] PRN PRN Reason: Additional IVPB Infusion Insulin Human Lispro (Humalog Kwikpen (Bkc)) 0 unit SC ACHS [facility]; Protocol Last Admin: 09/12/19 06:35 Dose: Not Given Documented by: Lactulose (Chronulac, Cephulac) 40 gm PO Q12 [facility] Last Admin: 09/12/19 10:19 Dose: Not Given Documented by: Melatonin (Melatonin) 5 mg PO QHS [facility] Last Admin: 09/11/19 22:01 Dose: 5 mg Documented by: Midodrine (Proamatine) 10 mg PO TID [facility] Last Admin: 09/12/19 06:35 Dose: 10 mg Documented by: Multivit/Ca Carb/B Cmplx/FA/Prenat (Nephrocaps, Renaphro) 1 capsule PO DAILY [facility] Last Admin: 09/11/19 09:13 Dose: 1 capsule Documented by: Nitroglycerin (Nitrostat) 0.4 mg SUBLINGUAL Q5M PRN PRN Reason: CARDIAC/CHEST PAIN Nystatin (Mycostatin Powder) 1 applic TOPICAL BID [facility]; Protocol Last Admin: 09/12/19 10:20 Dose: 1 applic Documented by: Ondansetron HCl (Zofran) 4 mg IV Q8H PRN PRN PRN Reason: NAUSEA/VOMITING Ondansetron HCl (Zofran Odt) 4 mg PO Q6H PRN PRN PRN Reason: NAUSEA/VOMITING Oxycodone HCl (Oxyir) 5 mg PO Q4H PRN PRN PRN Reason: Pain Score 6-10/10 Last Admin: 09/11/19 13:40 Dose: 5 mg Documented by: Pantoprazole Sodium (Protonix) 20 mg PO DAILY [facility] Last Admin: 09/11/19 09:13 Dose: 20 mg Documented by: Pramipexole Dihydrochloride (Mirapex) 0.25 mg PO QHS [facility] Last Admin: 09/11/19 22:00 Dose: 0.25 mg Documented by: Sodium Chloride () 10 - 40 ml IV UD PRN PRN Reason: SALINE FLUSH Last Admin: 09/12/19 10:15 Dose: 20 ml Documented by: Medical Necessity - Tobacco Use Smoking Status: Former smoker Assessment/Plan All Active Problems (Last Reviewed 05/23/19 @ 04:[address] Buddy Olson MD) Altered mental status (Acute) Hypotension (Acute) RECOMMENDATIONS: 1. Wean supplemental oxygen to maintain saturations at or above 90%. 2. Continue lactulose. 3. Continue hemodialysis per nephrology recommendations. 4. Continue Midodrine. 5. Encourage incentive spirometer use and mobilize patient as tolerated. 6. Physical therapy to work with the patient. Case management to assist with disposition needs. IMPRESSIONS: 1. Shock, distributive versus hypovolemic Resolved. Although SBP was an initial consideration, there has not been a definitive source of infection identified during the patient's hospitalization. Given that she did have a rather large volume paracentesis completed, it is certainly possible that a hypovolemic etiology in the setting of cirrhosis is a possibility. At this time, given the lack of source of identified infection, I am okay with holding antimicrobials and monitoring the patient clinically. The patient has been weaned from all vasopressor support at this time. She does have a baseline systolic blood pressure around 90 mmHg. Continue Midodrine per outpatient regimen. 2. Toxic/metabolic encephalopathy Improved. Continue current supportive measures as noted above. Avoid sedating medications. MRI brain was unremarkable. 3. End-stage renal disease on hemodialysis Nephrology currently following to assist with hemodialysis needs. 4. 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 Continue lactulose per home regimen. Ammonia level is within normal limits. Continue/scale insulin coverage. This note was generated with [employer] dictation software. It may contain incorrect words, spelling, and punctuation that were not noted in checking the note before signing. Inpatient E&M: 94719 Subs Hosp L2
--- NOTE | 2019-09-12 11:26 | DIALYSIS ---
Addendum entered by Shawn Hillman 09/12/19 15:11: Hemodialysis complete. 3.5 hour run, 3k bath, net fluid removed = 3300 ml. Patient tolerated HD tx well. Left upper arm AVF: Site benign, thrill and bruit present. Needle site pressure held 10 min each. Hemostasis achieved. Report given to primary RNRene. Original Note: Report from primary RNRene Access: Left upper arm AVF. Site benign, thrill and bruit present, cannulated with 15 gauge needles x 2. Connections visible and secure.
[2019-09-12 11:50] LABS: Bedside Glucose 176 mg/dL (70-110)
--- NOTE | 2019-09-12 12:29 | CASEMGMT ---
Social Work SW met with pt and RN in room to discuss discharge plan. Pt stating she has talked to her family and she has decided that she will return home with her sister Eva and that her four daughters will take turns staying with her at night and can also assist some during the day if needed. Pt stating her is also living at Eva's and he can provide some help if needed. Pt states her daughters provide meals and Pt acknowledges that Eva cannot care for pt but pt is certain her daughters will step up to assist. Pt refusing to go to SNF even when SW explained concerns for pt and for Eva with pt returning home and recommendations of physician and staff for SNF. Pt stating she does not want to go to SNF where she will be in isolation and not be able to see anyone. Pt states she can get in the house via wheelchair and she is able to climb the 4 stairs to get in. Pt stating she will call her family to come and pick her up after dialysis and she can ride in family car. Phone call to pt sister Eva [phone]. Eva stating that she did talk to pt and told pt that d/c destination was up to pt. Eva confirms that she cannot care for pt and that if return home is to be successful pt daughters will have to start providing help to care for pt. Eva does confirm that pt spouse is living with her as well and that daughters have been providing food for him. Although hesitant, Eva agreeable to pt return home. SW encouraged Eva to talk to pt and pt daughters about alternative placement such as a daughters home and to let family know caring for pt is too much for Eva. Eva agreeable to pt discharge today and aware pt will be calling a daughter for transportation. [facility] to be restarted. FELIPA Spivey
--- NOTE | 2019-09-12 12:54 | DCINST_ITS ---
- Discharge Diagnoses Current Active Problems: 1. Acute Encephalopathy secondary to Shock Unclear Specific Etiology, Possible Distributive given Cirrhotic Status, Possible Hypovolemic versus LOWER SUSPICION Infectious including possible SBP versus developing PNA (Infection etiology RULED OUT) 2. ? Right Eye Vision Deficits, Transient, Resolved, RULED OUT CVA 3. Chronic hepatic cirrhosis, compensated 4. ESRD on HD 5. AOCD w/ Recent Suspected GI bleed w/ Acute on Chronic Anemia 6. CAD 7. 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 Hyperlipidemia 9. Restless leg syndrome 10. GERD You will use the following diet at home:: Calorie/Carbohydrate Controlled (specify 1200, 1400, etc) - ADA 1800, cardiac, renal diet Your food should be the consistency of: Regular Your liquids should be the consistency of: Regular/Thin Discharge Activity: - - Encourage regular assisted activity, including assisted walking 3x daily, out of bed to chair with all meals and in the chair at least 6 hours. Weight Bearing Status: Weight bearing as tolerated Keep extremity elevated above heart level: Right Arm - Please continue to elevate your right arm, maintain snug wraps to assist with swelling and may continue ice packs to assist for discomfort. Call your doctor if you observe: Fever of 101 or Higher, Inability to urinate, Inability to have a bowel movement, Shortness of breath, Dizziness, Fainting spells, Chest pain, Uncontrolled pain Instructions: What Is Type 2 Diabetes?, Healthy Meals for Diabetes, Hyperglycemia (High Blood Sugar), Hypoglycemia (Low Blood Sugar) Additional Instructions: During the admission you were noted to be initially very hypotensive (low blood pressure) and your midodrine was increased to 10 mg three times daily which has been continued on discharge. During the admission you had low blood sugars also felt to contribute to your confusion therefore your long-acting in insulin was discontinued and your blood sugars remained appropriate. If you notice blood sugars increasing may need to discuss restart of your long-acting insulin with your primary care physician. Please continue right upper extremity elevation, wraps, specifically SNUG agnieszka wrap to starting at fingers to bicep region, overlapping, no skin showing, redo if comes undone or skin showing. This will help with the swelling and discomfort. Please assure you continue to follow with Dr. Crawley and maintain appropriate HD schedule. Please have repeat basic complete blood count and renal function assessment at follow-up. Allergies/Adverse Reactions: Allergies lisinopril Allergy (Severe, Verified 08/28/19 17:22) Angioedema nebivolol HCl [From Bystolic] Adverse Reaction (Severe, Verified 08/28/19 17:22) bradycardia BRADYCARDIA Medications to take at Discharge Acetaminophen [Tylenol] 650 mg PO Q6H PRN 08/06/19 Atorvastatin Calcium [Lipitor] 80 mg PO QHS 08/06/19 B Complex W-C No.20/Folic Acid [Virt-Caps Softgel] 1 mg PO DAILY 08/06/19 Calcium Acetate 1 cap PO TIDCM 08/06/19 Cholecalciferol (VIT D3) [Vitamin D3] 5,000 unit PO MOWEFR 08/06/19 Docusate Sodium 100 mg PO BID 08/06/19 Gabapentin [Neurontin] 100 mg PO DAILY 08/06/19 Gabapentin [Neurontin] 200 mg PO DINNER 08/06/19 Insulin Lispro [Humalog] 0 unit SUBCUT TIDCM 08/06/19 Lactulose [Chronulac] 40 gm PO Q12H PRN PRN 08/06/19 Melatonin 5 mg PO QHS 08/06/19 Nitroglycerin 0.4 mg SL PRN PRN 08/06/19 Omeprazole 20 mg PO DAILY 08/06/19 Ondansetron [Zofran Odt] 4 mg PO Q6H PRN PRN 08/06/19 Oxycodone HCl 7.5 mg PO Q6H PRN PRN 08/06/19 Ropinirole HCl [Requip] 2 tab PO QHS 08/06/19 Midodrine HCl 10 mg PO TID #90 tab 09/12/19 Nystatin Powder [Mycostatin Powder] 1 applic TOPICAL BID #1 bottle 09/12/19 The following prescriptions were given: Midodrine HCl 10 mg PO TID #90 tab Transmission Status: Pending to [facility] Nystatin Powder [Mycostatin Powder] 1 applic TOPICAL BID #1 bottle Transmission Status: Pending to [facility] Primary Care Physician: Davy Coleman MD [Primary Care Provider] - Please follow up with your Primary Care Physician in: Follow-up within 3-5 days hospital discharge. Test Results: Test results from this visit will be discussed in further detail at your follow- up appointment, if applicable. Please Follow Up With: Anuradha Crawley DO When: Continue routine HD-Nephrology follow-up. Proposed Discharge Date: 09/12/19
--- NOTE | 2019-09-12 13:03 | DS.PCM_ITS ---
Discharge Date and Diagnosis Date of Admission: 09/06/19 Date of Discharge: 09/12/19 - Primary Discharge Diagnosis 1. Acute Encephalopathy secondary to Shock Unclear Specific Etiology, Possible Distributive given Cirrhotic Status, Possible Hypovolemic versus LOWER SUSPICION Infectious including possible SBP versus developing PNA (Infection etiology RULED OUT) 2. ? Right Eye Vision Deficits, Transient, Resolved, RULED OUT CVA 3. Chronic hepatic cirrhosis, compensated 4. ESRD on HD 5. AOCD w/ Recent Suspected GI bleed w/ Acute on Chronic Anemia 6. CAD 7. 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 Hyperlipidemia 9. Restless leg syndrome 10. GERD - Secondary Discharge Diagnosis Chronic Problems (Last Reviewed 05/23/19 @ 04:[address] Buddy Olson MD) History of GI bleed (Chronic) History of non-ST elevation myocardial infarction (NSTEMI) (Chronic 07/05/16) Atherosclerotic heart disease of [place] coronary artery without angina pectoris (Chronic) Stented coronary artery (Chronic) Cutting Balloon and TAMI (3.0X18 mm Xience) Proximal LAD 04/18/2012; Rotational atherectomy to proximal, id and distal RCA with two overlapping 4.0 X 38 Synergy TAMI ([facility] main) Ascites (Chronic) Pancytopenia (Chronic) Other specified peripheral vascular diseases (Chronic) Afib (Chronic) Congenital coronary artery anomaly (Chronic) Bradycardia (Chronic) Diabetes mellitus, type II (Chronic) Hyperlipidemia (Chronic) Hypothyroidism (Chronic) Anemia in chronic kidney disease (Chronic) Hypertension (Chronic) End stage renal disease on dialysis (Chronic) Hospital Course and Treatment Dr. Crawley Nephrology Dr. Reinoso ICU Operations: None, - Procedures: - - MRA head, MRI brain, Carotid US, DVT US RUE, central line, atrial line. Summary of Care Provided: The patient is a 74 y/o F w/ PMHx: Chronically blind L Eye, Chronic Hepatic Cirrhosis, Former tobacco use, ESRD on HD, CAD s/p PR w/ PCI, Diabetes mellitus type II, HTN (now chronically hypotensive with HD regimen), HLD, PAF, AOCD, Chronic pancytopenia, GERD w/ Hx GI bleed, RLS who presented to the [facility] ED on 09/06/19 secondary to history of confusion with significantly altered mental status and hypotension transferred as a direct from [facility] patient concurrent history of recent right eye vision changes. Maintained ICU status following decline following admission with planned 09/10/19 PCU status change given improvement. Recent significant high volume 09/04/19 paracentesis possible etiology. Initially required pressors but has been d/c since 09/08/19. IV stress dose hydrocortisone d/c 09/08/19. Patient w/ failed attempted arterial line with successful central line placement which will be removed 09/10/19 per ICU physician clearance. 09/08/19 HD without marked improvement but improved 09/09/19 into 09/10/19. 09/08/19 added and continued vancomycin and Zosyn therapy with+ MRSA screen given unclear etiology however had no marked WBC elevation or fever, therefore per discussions with ICU physician, d/c abx therapy on 09/10/19 with continued appropriate vital signs and now WBC elevation. Blood culture NGTD x 48 hours. Noted negative COVID testing from [place] obtained prior to her transfer to [facility]. Initial also noted ? right eye vision deficits, transient with eventual resolution; however, initially given these complaints, patient had OSH ED w/ unremarkable CT Head. Recent 05/23/19 ECHO w/ normal LV size, normal LV systolic function, EF 55%, mild focal AV calcifications, mild to moderate aortic stenosis, small pericardial effusion, moderate tricuspid valve insufficiency. MRI Brain with mild atrophy and periventricular white matter ischemic changes without evidence for acute infarct, MRA of the head with atherosclerotic disease with most severe involvement of the distal left vertebral and proximal M2 segments of the middle cerebral arteries MRA Head, carotid ultrasounds with right extracranial carotid artery system difficulty being visualized secondary to central line, no hemodynamically significant plaque identified within the left internal carotid, less than 50% stenosis left internal carotid, left external carotid not visualized, patent antegrade left vertebral. Given recent GI bleed, not on ASA, continued on statin. 09/09/19 R eye vision decrease resolution noted per patient. Admission ammonia level 20, repeat 09/07/2018 normal also, felt likely not related to her encephalopathy. Continued on lactulose. Admission BUN/Cr 13/2.65. Recent HD prior admission noted to be Sunday per Dr. Crawley. Maintained on HD Sunday, Sunday, Sunday, continued on M idodrine but increased to 10 mg TID given hypotension with improvement. 09/12/2019 BUN/creatinine 25/3.27. Overnight x 2 hypoglycemia noted while encephalopathic, d/c 09/09/19 long-acting lantus q HS with improved BS with ongoing trending. Discharged off long-acting with continued monitoring with recommended close monitoring for increased blood sugars again and restart if appropriate. On 09/11/2019 patient noted significant discomfort to the right arm with DVT ultrasound performed with noted superficial finding in the antecubital fossa region likely at the place of her prior IV site with snug Bubba wrap, elevation and icing with improvement. PT/OT/case management strongly recommend detention facility placement however patient declined and against recommendation patient discharged to home with family with home health. Recommended patient follow-up with primary care physician in addition to nephrology. - Physical Exam Vitals/I&O's: Vital Signs Temp Pulse Resp BP Pulse Ox 97.7 F L 77 18 148/73 H 92 09/12/19 10:50 09/12/19 11:00 09/12/19 10:50 09/12/19 10:50 09/12/19 10:50 Oxygen Flow Rate (L/min) 2 Oxygen Delivery Method Nasal Cannula Weight: 204 lb 9.423 oz Body Mass Index (BMI) 31.4 Finger Stick Blood Glucose 99 Intake and Output for Last 24 Hours 09/10/19 09/11/19 09/12/19 23:59 23:59 23:59 Intake Total 1198.75 / 1198.75 845 / 845 460 / 460 Output Total 0 / 0 Balance 1198.75 / 1198.75 845 / 845 460 / 460 Microbiology Past 72 Hours 09/06/19 20:00 Blood Culture (Wb) - No Site/Description Given Blood Culture - Final No growth in 5 days. Laboratory Results 09/11/19 16:47: POC Glucose 189 H 09/11/19 21:55: POC Glucose 171 H 09/12/19 05:40: WBC 7.1, RBC 3.13 L, Hgb 9.4 L, Hct 31.8 L, MCV 101.6 H, MCH 30.0, MCHC 29.6 L, RDW Std Deviation 63.3 H, RDW Coeff of Susan 17.6 H, Plt Count 108 L, MPV 9.2, Immature Gran % (Auto) 0.600, Neut % (Auto) 57.7, Lymph % (Auto) 28.3, [place] % (Auto) 8.6, Eos % (Auto) 4.1, Baso % (Auto) 0.7, Absolute Neuts (auto) 4.1, Absolute Lymphs (auto) 2.01, Nucleated RBC % 0 09/12/19 05:40: Sodium 132 L, Potassium 4.2, Chloride 99, Carbon Dioxide 29.0, Anion Gap 4 L, BUN 25 H, Creatinine 3.27 H, Estim Creat Clear Calc 13.17, Est GFR (MDRD) Af Amer 18 L, Est GFR (MDRD) Non-Af 15 L, BUN/Creatinine Ratio 7.6 L, Glucose 136 H, Calcium 7.8 L, Phosphorus 2.3 L, Magnesium 1.8, Total Bilirubin 0.50, AST 24, ALT 17, Alkaline Phosphatase 226 H, Total Protein 6.4, Albumin 1.8 L, Globulin 4.6 H, Albumin/Globulin Ratio 0.4 L 09/12/19 06:34: POC Glucose 133 H 09/12/19 11:46: POC Glucose 176 H Current Medications Acetaminophen (Tylenol) 650 mg PO Q6H PRN PRN PRN Reason: PAIN ()/FEVER Last Admin: 09/10/19 23:08 Dose: 650 mg Documented by: Atorvastatin Calcium (Lipitor) 80 mg PO QHS [facility] Last Admin: 09/11/19 22:01 Dose: 80 mg Documented by: Calamine/Phenol (Calmoseptine Ointment) 1 applic TOPICAL BID [facility]; Protocol Last Admin: 09/12/19 10:20 Dose: 1 applicatio Documented by: Chlorhexidine Gluconate () 1 each TOPICAL DAILY [facility] Last Admin: 09/12/19 10:19 Dose: Not Given Documented by: Cholecalciferol (Vitamin D (25mcg)) 5,000 unit PO MoWeFr@1000 [facility] Last Admin: 09/10/19 09:35 Dose: 5,000 unit Documented by: Dextrose (D50w Syringe) 0 gm IV X1 PRN; Protocol PRN Reason: Hypoglycemia Last Admin: 09/09/19 13:36 Dose: 12.5 gm Documented by: Docusate Sodium (Colace) 100 mg PO BID [facility] Last Admin: 09/12/19 10:19 Dose: Not Given Documented by: Fentanyl Citrate (Sublimaze (100mcg Ampule)) 25 mcg IV Q8H PRN PRN PRN Reason: severe pain, 6-10/10 Last Admin: 09/12/19 10:15 Dose: 25 mcg Documented by: Gabapentin (Neurontin) 200 mg PO DINNER [facility] Last Admin: 09/11/19 16:51 Dose: 200 mg Documented by: Gabapentin (Neurontin) 100 mg PO DAILY [facility] Last Admin: 09/11/19 09:13 Dose: 100 mg Documented by: Glucagon () 1 mg IM .X1 PRN PRN Reason: Hypoglycemia Hydralazine HCl (Apresoline Iv) 5 mg IV Q30M PRN PRN Reason: to maintain BP goals Sodium Chloride () 250 mls @ 15 mls/hr IV .[id number] PRN PRN Reason: Saline Flush Sodium Chloride () 250 mls @ 15 mls/hr IV .[id number] PRN PRN Reason: Additional IVPB Infusion Insulin Human Lispro (Humalog Kwikpen (Bkc)) 0 unit SC ACHS [facility]; Protocol Last Admin: 09/12/19 06:35 Dose: Not Given Documented by: Lactulose (Chronulac, Cephulac) 40 gm PO Q12 [facility] Last Admin: 09/12/19 10:19 Dose: Not Given Documented by: Melatonin (Melatonin) 5 mg PO QHS [facility] Last Admin: 09/11/19 22:01 Dose: 5 mg Documented by: Midodrine (Proamatine) 10 mg PO TID [facility] Last Admin: 09/12/19 06:35 Dose: 10 mg Documented by: Multivit/Ca Carb/B Cmplx/FA/Prenat (Nephrocaps, Renaphro) 1 capsule PO DAILY [facility] Last Admin: 09/11/19 09:13 Dose: 1 capsule Documented by: Nitroglycerin (Nitrostat) 0.4 mg SUBLINGUAL Q5M PRN PRN Reason: CARDIAC/CHEST PAIN Nystatin (Mycostatin Powder) 1 applic TOPICAL BID [facility]; Protocol Last Admin: 09/12/19 10:20 Dose: 1 applic Documented by: Ondansetron HCl (Zofran) 4 mg IV Q8H PRN PRN PRN Reason: NAUSEA/VOMITING Ondansetron HCl (Zofran Odt) 4 mg PO Q6H PRN PRN PRN Reason: NAUSEA/VOMITING Oxycodone HCl (Oxyir) 5 mg PO Q4H PRN PRN PRN Reason: Pain Score 6-10/10 Last Admin: 09/11/19 13:40 Dose: 5 mg Documented by: Pantoprazole Sodium (Protonix) 20 mg PO DAILY [facility] Last Admin: 09/11/19 09:13 Dose: 20 mg Documented by: Pramipexole Dihydrochloride (Mirapex) 0.25 mg PO QHS [facility] Last Admin: 09/11/19 22:00 Dose: 0.25 mg Documented by: Sodium Chloride () 10 - 40 ml IV UD PRN PRN Reason: SALINE FLUSH Last Admin: 09/12/19 10:15 Dose: 20 ml Documented by: Discharge Activity: - - Encourage regular assisted activity, including assisted walking 3x daily, out of bed to chair with all meals and in the chair at least 6 hours. Weight Bearing Status: Weight bearing as tolerated Keep extremity elevated above heart level: Right Arm - Please continue to elevate your right arm, maintain snug wraps to assist with swelling and may continue ice packs to assist for discomfort. Call your doctor if you observe: Fever of 101 or Higher, Inability to urinate, Inability to have a bowel movement, Shortness of breath, Dizziness, Fainting spells, Chest pain, Uncontrolled pain Home Medications: Medications to take at Discharge Acetaminophen [Tylenol] 650 mg PO Q6H PRN 08/06/19 Atorvastatin Calcium [Lipitor] 80 mg PO QHS 08/06/19 B Complex W-C No.20/Folic Acid [Virt-Caps Softgel] 1 mg PO DAILY 08/06/19 Calcium Acetate 1 cap PO TIDCM 08/06/19 Cholecalciferol (VIT D3) [Vitamin D3] 5,000 unit PO MOWEFR 08/06/19 Docusate Sodium 100 mg PO BID 08/06/19 Gabapentin [Neurontin] 100 mg PO DAILY 08/06/19 Gabapentin [Neurontin] 200 mg PO DINNER 08/06/19 Insulin Lispro [Humalog] 0 unit SUBCUT TIDCM 08/06/19 Lactulose [Chronulac] 40 gm PO Q12H PRN PRN 08/06/19 Melatonin 5 mg PO QHS 08/06/19 Nitroglycerin 0.4 mg SL PRN PRN 08/06/19 Omeprazole 20 mg PO DAILY 08/06/19 Ondansetron [Zofran Odt] 4 mg PO Q6H PRN PRN 08/06/19 Oxycodone HCl 7.5 mg PO Q6H PRN PRN 08/06/19 Ropinirole HCl [Requip] 2 tab PO QHS 08/06/19 Midodrine HCl 10 mg PO TID #90 tab 09/12/19 Nystatin Powder [Mycostatin Powder] 1 applic TOPICAL BID #1 bottle 09/12/19 Following Prescrptions Were Given to Patient: Midodrine HCl 10 mg PO TID #90 tab Transmission Status: Received by [facility] Nystatin Powder [Mycostatin Powder] 1 applic TOPICAL BID #1 bottle Transmission Status: Received by [facility] Primary Care Physician: Davy Coleman MD [Primary Care Provider] - Please follow up with your Primary Care Physician in: Follow-up within 3-5 days hospital discharge. Please Follow Up With: Anuradha Crawley, DO When: Continue routine HD-Nephrology follow-up. Please Follow Up With: Davy Coleman MD Patient Instructions: Hyperglycemia (High Blood Sugar), Hypoglycemia (Low Blood Sugar), What Is Type 2 Diabetes?, Healthy Meals for Diabetes Disposition: Home with Home Health Minutes spent on discharge:: 40 Patient Condition:: Fair Medical Necessity - Tobacco Use Smoking Status: Former smoker Meaningful Use Info Meaningful Use Diagnoses (Choose all that apply): None applicable Inpatient E&M: 63616 Disch Hosp
--- NOTE | 2019-09-12 13:48 | CASEMGMT ---
Addendum entered by Marta Crews 09/12/19 13:50: Phone call to [facility] and notified that pt will not be coming to SNF. FELIPA Spivey Original Note: Social Work Referral made to [facility] for PT/OT/SN/AID/SW. FRAN left with JAMES Bowles at [facility] with pt update. FRAN left with Soo Cash CM at [facility] home that pt d/c from hospital today. FELIPA Spivey
[2019-09-12] MEDS: Epoetin Alfa epbx 10,000 UNITS/ML 10000 UNIT IV (14:28)
[2019-09-12] MEDS: Pantoprazole Sodium 20 MG Tablet PO (14:35)
[2019-09-12] MEDS: Folic Acid/Vitamin B Comp W-C 1 Capsule 1 CAP PO (14:35)
[2019-09-12] MEDS: Gabapentin 100 MG Capsule PO (14:35)
[2019-09-12] MEDS: oxyCODONE 5 MG Tablet PO (14:36)
== END 2019-09-12 17:53 | disposition home health service (06) | DRG 871 ==
LOC: ICU 09-10 09:09 → PCU 09-10 17:43
PROVIDERS: Internal Medicine; Internal Medicine Critical Care Medicine; Admitting Provider Student in an Organized Health Care Education/Training Program; PCP Family Medicine; Visit Provider Family Medicine
DX: R57.1 Hypovolemic shock (principal); G92 Toxic encephalopathy; N18.6 End stage renal disease; I12.0 Hypertensive chronic kidney disease with stage 5 chronic kidney disease or end stage renal disease; I48.20 Chronic atrial fibrillation, unspecified; D61.818 Other pancytopenia; Q24.5 Malformation of coronary vessels; R18.8 Other ascites; I25.10 Atherosclerotic heart disease of native coronary artery without angina pectoris; E11.40 Type 2 diabetes mellitus with diabetic neuropathy, unspecified; E11.22 Type 2 diabetes mellitus with diabetic chronic kidney disease; E78.5 Hyperlipidemia, unspecified; K21.9 Gastro-esophageal reflux disease without esophagitis; K74.60 Unspecified cirrhosis of liver; D63.1 Anemia in chronic kidney disease; E03.9 Hypothyroidism, unspecified; G25.81 Restless legs syndrome; I25.2 Old myocardial infarction; K75.81 Nonalcoholic steatohepatitis (NASH); I48.0 Paroxysmal atrial fibrillation; Z87.891 Personal history of nicotine dependence; Z99.2 Dependence on renal dialysis; H54.62 Unqualified visual loss, left eye, normal vision right eye; E11.649 Type 2 diabetes mellitus with hypoglycemia without coma
CPT/HCPCS: 49083; 70544; 70551; 71045; 80053; 80061; 80069; 82140; 82533; 82947; 82962; 83735; 84100; 84145; 85025; 85027; 85610; 87040; 87633; 87641; 90937; 93880; 93971; 97110; 97116; 97162; 97166; 97530; 97535; J7030; J7040; J7050; P9047; A4216; C1751; G0257; Q5106

== ENCOUNTER → 2019-09-18 12:21 | Outpatient (CLI) | payer MEDICARE, MEDICAID, SELFPAY ==
[2018-06-11 11:00] VITALS: BMI 27.1
[2019-08-06 13:14] VITALS: BMI 34.3
[2019-09-06 14:59] VITALS: BMI 31.4
--- NOTE | 2019-09-18 12:24 | US_ITS ---
PROCEDURE: Ultrasound guided paracentesis. DATE OF EXAMINATION: September 18, 2019. INDICATION: Female, 74 years old. Ascites. PHYSICIAN: Eric Mckay M.D. TECHNIQUE: The risks, benefits, and alternatives to the procedure were explained to the patient. The specific risks of bleeding, infection, and damage to bowel were detailed and accepted. Witnessed informed consent was obtained. The abdomen was ultrasonographically surveyed. An appropriate pocket of fluid was identified at the right lower quadrant. The skin were cleaned and prepped in the usual sterile fashion. Using ultrasound guidance, the peritoneal cavity was accessed with a 5-Spanish paracentesis needle/catheter system. The trocar was removed. A total of 2850 ml of ron-colored fluid were removed from the peritoneal cavity. The catheter was removed and a sterile dressing was applied. The procedure was well tolerated. US/Paracentesis with US IMPRESSION: Ultrasound guided paracentesis. Electronically Signed: rEic Mckay, at 13:34 EDT , Service support ,
[2019-09-18 12:44] VITALS: BP 115/67; BP 99/51; PULSE 66; PULSE 67; RESP 16; RESP 18; TEMP 36.6; O2SAT 100; O2SAT 98
== END ==
PROVIDERS: PCP Family Medicine; Referring Provider Family Medicine; Visit Provider Family Medicine
DX: R18.8 Other ascites (principal)
CPT/HCPCS: 49083

== ENCOUNTER 2019-09-24 09:55 | Inpatient (IN) | payer MEDICARE, MEDICAID, SELFPAY ==
[2018-06-11 11:00] VITALS: BMI 27.1
[2019-09-06 14:59] VITALS: BMI 31.4
[2019-09-24] VITALS (18 sets, daily range): BP systolic 83–112; BP diastolic 18–80; PULSE 46–79; RESP 14–20; TEMP 35.7–36.8; O2SAT 93–100; BMI 32.4; BMI 34.9
--- NOTE | 2019-09-24 10:14 | RAD_ITS ---
STUDY: X-RAY - ACUTE ABDOMINAL SERIES REASON FOR EXAM: Female, 74 years old. INCREASED ABD PAIN, WEAKNESS, AND RECTAL BLEEDING -- TECHNIQUE: Single view of the chest. Supine, 4 view(s) of the abdomen were obtained. COMPARISON: 09/08/2019. FINDINGS: No focal consolidation within the lungs. Linear densities at the left base most likely represents scarring and/or atelectasis. Normal size heart. Normal mediastinum and roxy. Normal visualized pulmonary arteries. There is atherosclerotic calcification of the aortic arch with tortuosity. There is severe diffuse calcification throughout visualized arterial structures. The abdomen is distended. There is a non-specific bowel gas pattern. No evidence for free air There are diffuse degenerative changes of the visualized lumbar spine. RAD/Acute Abdomen Inc Chest IMPRESSION: Chest demonstrates cardiomegaly. Severe diffuse atherosclerosis. Nonspecific bowel gas pattern. No evidence for free air. Electronically Signed: Luis Sawant, at 13:01 EDT Tel , Service support ,
--- NOTE | 2019-09-24 11:13 | EKG12_ITS ---
Test Reason : Blood Pressure : / mmHG Vent. Rate : 062 BPM Atrial Rate : 055 BPM P-R Int : 000 ms QRS Dur : 088 ms QT Int : 444 ms P-R-T Axes : 000 079 165 degrees QTc Int : 450 ms Atrial fibrillation Low voltage QRS Septal infarct , age undetermined Abnormal ECG Confirmed by JENN SPRAGUE ([id number]), news editor LEONCIO NAIR ([id number]) on 09/29/2019 2:50:18 PM Referred By: ALYSIA Confirmed By:JENN SPRAGUE
--- NOTE | 2019-09-24 11:13 | NURSING ---
CALLED [facility] FOR LABS AND ER DOC NOTES FROM 09-22 AND 09-17. HAD TO LEAVE A MESSAGE
[2019-09-24 11:28] LABS: Absolute Lymphocyte Count 1.17 X10^3/uL (0.83-4.51); Absolute Neutrophil Count 3.6 X10^3/uL (2.0-7.7); Basophil# 0.05 X10^3/uL; Basophil% 0.9 % (0-1); Differential Indicated SCAN CRITERIA MET; Eosinophil# 0.13 X10^3/uL; Eosinophils% 2.4 % (0-5); Hematocrit 26.2 % (37-47); Hemoglobin 7.8 g/dL (12.0-15.0); Lymphocyte # 1.17 X10^3/ul (4.0); Lymphocyte % 21.5 % (19-41); Mean Corp Hgb Conc 29.8 g/dL (32-36); Mean Corpuscular Hgb 31.2 pg (27.0-32.0); Mean Corpuscular Volume 104.8 fL (81-99); Monocyte# 0.46 X10^3/uL; Monocyte% 8.4 % (0-10); NRBC Flagged by Analyzer 0 % (0-5); Neutrophil # 3.62 X10^3/uL (2.7-7.7); Neutrophil % 66.4 % (47-70); POSITIVE MORPHOLOGY YES; Platelet Count 130 K/mm3 (150-450); RBC Distribution Width CV 18.8 % (11.6-14.6); RBC Distribution Width SD 70.3 fl (35.1-43.9); White Blood Count 5.5 K/mm3 (4.4-11.0)
[2019-09-24] MEDS: Midodrine HCl 5 MG Tablet 10 MG PO ×2 (11:32→22:01)
[2019-09-24 11:45] LABS: Anion Gap 6 (5-15); BUN 23 mg/dL (7-18); BUN/Creat Ratio 6.3 RATIO (10-20); Calcium,Total 7.7 mg/dL (8.5-10.1); Chloride 99 mmol/L (98-107); Creatinine, Serum 3.66 mg/dL (0.55-1.02); EST Glomerular Filtration Rate 13 mL/min (>60); Est Glom Filt Rate - Afr Amer 16 mL/min (>60); Estimated Creatinine Clearance 11.77 ml/min; Glucose 160 mg/dL (74-106); Potassium 5.3 mmol/L (3.5-5.1); Sodium Level 135 mmol/L (136-145)
--- NOTE | 2019-09-24 12:00 | ED.VISSUMM ---
- ER Visit Summary Date of Service: 09/24/19 Chief Complaint: [Rectal pain and constipation] History of Present Illness: The patient is a 74 F [does the emergency department not feeling well for last 5 days. Patient states that she has had 2 visits in the last 5 days to [facility] where she was diagnosed with constipation. Patient's been disimpacted x2. Patient was last at [facility] yesterday. Patient has had a CT scan as well as lab work on September 19 and then had a KUB yesterday. She denies any chest pain. She denies any shortness of breath. She denies any fever. Patient it was scheduled to have dialysis today. Patient has history of diabetes, hypertension, coronary artery disease, end-stage renal disease, A. fib,'s pancytopenia, and hypothyroidism. Patient has history of ascites and has had paracentesis in the past the last of which was September 17.] Physical Examination: [HEENT-PERRLA, EOMI. Cranial nerves II through XII grossly intact. TMs clear. Mucous membranes moist. No adenopathy. Cardiovascular-regular rate and rhythm without murmur or ectopy Lungs-clear to auscultation, chest wall stable without crepitus or subcu emphysema Abdomen-normoactive bowel sounds. Patient has edematous abdominal wall and some distention of the abdomen. The abdomen is really nontender. There is no rebound, rigidity, peritoneal signs. Extremities-intact ?4, normal range of motion, normal pulses, atraumatic. Patient has +3 edema both lower extremities.] Test Results: [EKG obtained arrival showed atrial fibrillation with a ventricular rate of 62 bpm with no acute segment changes. CBC with differential normal white count of 5.5, hemoglobin 7.8, hematocrit 26, platelets 130.] Sodium was 135, potassium 5.3, chloride 99, CO2 30, glucose 160, BUN 23 and creatinine 3.66. Ammonia was 33. Abdominal series obtained showed nonspecific bowel gas pattern. I do not appreciate any evidence of obstruction. Official report from radiology pending. Emergency Department Course and Treatment: [ IV Established. Patient was given a 500 cc fluid bolus.] On rectal exam patient had an impaction and I was able to manually disimpact her with large amount of soft and watery stool. Patient was given Midodrine 10 mg p.o. for her hypotension which is chronic. Treatment Plan: [Admit for further stabilization of her symptoms.] Disposition: [Admit] Impression: [Constipation/impaction ] Weakness End-stage renal disease Anemia Confusion per family This note was generated with [employer] dictation software. It may contain incorrect words, spelling, and punctuation that were not noted in review of the chart prior to signing ED Disposition - Plan for ED Patient: Referrals: Davy Coleman MD [Primary Care Provider] -
--- NOTE | 2019-09-24 12:09 | NURSING ---
PCU SEMENTI WEAKNESS, ESRD, RECTAL IMPACTION, CONFUSION, ANEMIA
--- NOTE | 2019-09-24 12:09 | NURSING ---
DR JAIMES IN ER
[2019-09-24 12:20] LABS: Differential Comment SCANNED; Ovalocyte 1+
[2019-09-24] MEDS: oxyCODONE 5 MG Tablet PO ×2 (12:37→18:48)
--- NOTE | 2019-09-24 12:40 | NURSING ---
pt's blood pressure was continuing to be in the low 70's to upper 60's systolic. dr duffy was made aware. we were only able to obtain one iv and lab was called to obtain blood work. lab was unable to obtain the lactic acid level that was ordered in the ed. dr duffy again was made aware. after the 500ml normal saline bolus pt's bp continued to remain in the upper 70's systolic, dr duffy then ordered 10mg of midodrine po. pt's bp started to raise coming up to low 90's upper 80's prior to admission.
--- NOTE | 2019-09-24 12:43 | ED.RN ---
pt continues to c/o of back pain and rectal pain. pt was given 5mg of oxycodone to help, pt reports the pain medication was taking too long to take effect. pt informed of the dangers of medicating her to aggressively with pain medication due to the risk of dropping her blood pressure and causing more constipation. pt's daughter called in for an update, this nurse obtain verbal consent from the pt to relay medical information to her daughter. her daughter was then informed of the pt's condition and then was spoken to by dr. gaitan.
--- NOTE | 2019-09-24 12:52 | HP.PCM_ITS ---
Problem List (1) Fecal impaction Status: Acute (2) Hematochezia Status: Acute (3) Cirrhosis of liver with ascites Status: Chronic Qualifiers: Hepatic cirrhosis type: unspecified hepatic cirrhosis Qualified Code(s): K74.60 - Unspecified cirrhosis of liver; R18.8 - Other ascites (4) Acute on chronic anemia Status: Acute (5) Hyperkalemia Status: Acute (6) Altered mental status Status: Chronic (7) Hypotension Status: Chronic Comment: on Midodrin (8) History of GI bleed Status: Chronic (9) History of non-ST elevation myocardial infarction (NSTEMI) Status: Chronic (10) Atherosclerotic heart disease of jena coronary artery without angina pectoris Status: Chronic Qualifiers: (11) Stented coronary artery Status: Chronic Comment: Cutting Balloon and TAMI (3.0X18 mm Xience) Proximal L AD 04/18/2012; Rotational atherectomy to proximal, id and distal RCA with two overlapping 4.0 X 38 Synergy TAMI ([facility] main) (12) Ascites Status: Chronic Qualifiers: (13) Pancytopenia Status: Chronic (14) Other specified peripheral vascular diseases Status: Chronic (15) Afib Status: Chronic Qualifiers: Atrial fibrillation type: permanent Qualified Code(s): I48.21 - Permanent atrial fibrillation (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 (17) Bradycardia Status: Chronic Comment: Suspect sick sinus syndrome (18) Diabetes mellitus, type II Status: Chronic Qualifiers: Chronic kidney disease stage: on chronic dialysis (19) Hyperlipidemia Status: Chronic Qualifiers: (20) Hypothyroidism Status: Chronic Qualifiers: (21) Anemia in chronic kidney disease Status: Chronic Qualifiers: Chronic kidney disease stage: on chronic dialysis Qualified Code(s): N18.6 - End stage renal disease; D63.1 - Anemia in chronic kidney disease; Z99.2 - Dependence on renal dialysis (22) Hypertension Status: Chronic Qualifiers: (23) End stage renal disease on dialysis Status: Chronic (24) Sick sinus syndrome Status: Suspected (25) Chronic pain syndrome Status: Chronic (26) Chronic narcotic use Status: Chronic History of Present Illness Date of Admission: 09/24/19 Chief Complaint: generalized weakness and rectal pain with blood running down her leg per the dtr. The patient is a 74 year old F with a past medical history of diabetes mellitus type 2, hypertension, hyperlipidemia, coronary artery disease, hypothyroidism, end-stage renal disease on hemodialysis, anemia of chronic kidney failure, atrial fibrillation, bradycardia, hypotension on midodrine 3 times daily, cirrhosis with ascites requiring paracentesis, restless leg syndrome, tonic pain syndrome and chronic constipation due to chronic narcotic use who presented to the Ed at [facility] on 09/24/19 complaining back pain, weakness, rectal pain and bright red rectal bleeding. She had been seen in the [place] emergency room on 09/20/2019 and 09/23/2019 for constipation and was disimpacted on both occasions. She denies any fever, chills, nausea, vomiting. She denies any pain. She denies SOB, cough, sore throat. Her dtr told me on the phone she is confused at times and this is not unusual. Vital signs at presentation to the emergency room are temperature 97.6, blood pressure 88/45, respiratory rate 17 and she was 97% saturated on room air. She did not take Midodrine this AM which is prescribed TID. Her last HD was on Sunday and she missed HD today. All lab was personally reviewed. White blood cell count is normal at 5.5. Her hemoglobin is 7.8, down from 9.4 on 09/12/2019. Platelets are low at 130,000 but within her baseline. Sodium is mildly decreased at 135 and the potassium is mildly increased at 4.3. BUN is 23 and the creatinine is 3.66. Serum ammonia is only mildly increased at 33. Random blood sugar is 160 and calcium is low at 7.7 but her albumin was also low at 1.8 during her last admission and the calcium corrected for hypoalbuminemia is within normal limits. Chest x-ray shows no infiltrates. There are linear densities in the mid left lung and base which appear to be secondary to atelectasis. The abdominal films which were done after disimpaction by Dr. Dos Santos in the emergency room showed a nonspecific bowel gas pattern and no significant fecal accumulation. She had an excellent result with disimpaction. She is lying flat in bed without any respiratory distress. She tells me that they were not able to take much fluid off at HD Sunday and they thought she may be dehydrated. Lu was a pt at the [facility] for 3 months and was discharged to home about 5 weeks ago. Since that time she has been admitted to [facility] twice...the last DC was on 09/12/2019. She was admitted for hypotension and acute encephalopathy at that time. She has also been going to [facility]. She talked with palliative care on the phone yesterday but, she does not really understand what palliative care is so I explained it to her. I also explained what palliative care is to her dtr whom I talked with on the phone. Neither Lu or her dtr seem to have a good grasp on the reality of her multiple co-morbid condition and the fact that she has been progressively declining. Past Medical History Past Medical History (Chronic Problems): Chronic Problems (Last Reviewed 09/24/19 @ 13:[address] Robyn Pak DO) Cirrhosis of liver with ascites (Chronic) Chronic pain syndrome (Chronic) Chronic narcotic use (Chronic) Altered mental status (Chronic) Hypotension (Chronic) on Midodrin History of GI bleed (Chronic) History of non-ST elevation myocardial infarction (NSTEMI) (Chronic 07/05/16) Atherosclerotic heart disease of jena coronary artery without angina pectoris (Chronic) Stented coronary artery (Chronic) Cutting Balloon and TAMI (3.0X18 mm Xience) Proximal LAD 04/18/2012; Rotational atherectomy to proximal, id and distal RCA with two overlapping 4.0 X 38 Synergy TAMI ([facility] main) Ascites (Chronic) Pancytopenia (Chronic) Other specified peripheral vascular diseases (Chronic) Afib (Chronic) Congenital coronary artery anomaly (Chronic) Bradycardia (Chronic) Suspect sick sinus syndrome Diabetes mellitus, type II (Chronic) Hyperlipidemia (Chronic) Hypothyroidism (Chronic) Anemia in chronic kidney disease (Chronic) Hypertension (Chronic) End stage renal disease on dialysis (Chronic) Medical History: Medical History (Last Reviewed 09/24/19 @ 13:[address] Robyn Pak DO) History of GI bleed (Chronic) Z87.19 History of non-ST elevation myocardial infarction (NSTEMI) (Chronic) Onset Date: 07/05/16 I25.2 Atherosclerotic heart disease of jena coronary artery without angina pectoris (Chronic) I25.10 Ascites (Chronic) R18.8 Pancytopenia (Chronic) D61.818 Other specified peripheral vascular diseases (Chronic) I73.89 Afib (Chronic) I48.91 Congenital coronary artery anomaly (Chronic) Q24.5 Bradycardia (Chronic) R00.1 Suspect sick sinus syndrome Diabetes mellitus, type II (Chronic) E11.9 Hyperlipidemia (Chronic) E78.5 Hypothyroidism (Chronic) E03.9 Anemia in chronic kidney disease (Chronic) N18.9, D63.1 Hypertension (Chronic) I10 End stage renal disease on dialysis (Chronic) N18.6, 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 Skin cancer C44.90 mouth/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, 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 Allergies lisinopril Allergy (Severe, Verified 09/24/19 09:56) Angioedema nebivolol HCl [From Bystolic] Adverse Reaction (Severe, Verified 09/24/19 09:56) bradycardia BRADYCARDIA Home Medications: Ambulatory Orders Medication Instructions Recorded Acetaminophen [Tylenol] 650 mg PO Q6H PRN 08/06/19 B Complex W-C No.20/Folic Acid 1 mg PO DAILY 08/06/19 [Virt-Caps Softgel] Cholecalciferol (VIT D3) [Vitamin 5,000 unit PO MOWEFR 08/06/19 D3] Docusate Sodium 100 mg PO BID 08/06/19 Melatonin 5 mg PO QHS 08/06/19 Nitroglycerin 0.4 mg SL PRN PRN 08/06/19 Ropinirole HCl [Requip] 2 tab PO QHS 08/06/19 Midodrine HCl 10 mg PO TID #90 tab 09/12/19 Nystatin Powder [Mycostatin Powder] 1 applic TOPICAL BID #1 bottle 09/12/19 Insulin Lispro [Humalog] 2 - 12 unit SUBCUT TIDCM #1 pen 09/13/19 Insulin Detemir [Levemir (BKC)] 20 units SUBCUT QHS 09/24/19 Oxycodone HCl/Acetaminophen 1 tab PO Q6H PRN PRN 09/24/19 [Percocet 10-325 mg Tablet] Psyllium [Metamucil] 1 packet PO DAILY 09/24/19 proMETHazine tablet [Phenergan 12.5 mg PO Q6H PRN PRN 09/24/19 tablet] Surgical History: Surgical History (Last Reviewed 09/24/19 @ 13:[address] Robyn Pak DO) Stented coronary artery (Chronic) Z95.5 Cutting Balloon and TAMI (3.0X18 mm Xience) Proximal LAD 04/18/2012; Rotational atherectomy to proximal, id and distal RCA with two overlapping 4.0 X 38 Synergy TAMI ([facility] main) History of back surgery Z98.890 LATE 70'S History of colectomy Z90.49 History of hysterectomy Z90.710 History of laparoscopic cholecystectomy Z90.49 History of total right knee replacement Z96.651 Hx of foot surgery Z98.890 S/P left rotator cuff repair Z98.890 history left A-V fistula Surgical History: appendectomy, cholecystectomy, hysterectomy, total knee arthroplasty, - - Left upper extremity fistula, back surgery, colon resection w ith history of diverticulitis, GI bleed, right knee surgery, right total knee replacement, right foot surgery, left knee surgery, left foot surgery, PCI. Psychiatric History: No pertinent psych hx [employer] History: No pertinent [employer] history Lives: With Family Smoking Status: Former smoker Tobacco Use: Non-smoker Alcohol: None Drugs: - - only the narcotics prescribed for her - *Family History Maternal Family History: Family History (Last Reviewed 09/24/19 @ 14:[address] Robyn Pak DO) Sister Diabetes Heart disease Hypertension Anemia History Items: Cancer - uterine Paternal Family History: Family History (Last Reviewed 09/24/19 @ 14:[address] Robyn Pak DO) Sister Diabetes Heart disease Hypertension Anemia History Items: Cancer Sibling Family History: Family History (Last Reviewed 09/24/19 @ 14:[address] Robyn Pak DO) Sister Diabetes Heart disease Hypertension Anemia History Items: Diabetes Review of Systems Constitutional: Reports: Weakness. Denies: Chills, Fever, Weight Change Eyes: Denies: Blurred vision HEENT: Denies: Difficulty Swallowing, Head Aches, Sinus Congestion, Sinus Drainage, Sore Throat Cardiovascular: Reports: Edema, Light Headedness. Denies: Chest Pain, Orthopnea, Palpitations, Syncope Respiratory: Denies: Cough, Hemoptysis, Shortness of Breath, Shortness of breath at rest, Sputum production Gastrointestinal: Reports: Abdominal Pain - lower abdominal pain - the ascites is more tense in this area, Constipation, - - she is having proctalgia. Denies: Nausea, Vomiting Genitourinary: Reports: - - she no longer makes urine. Denies: Dysuria Musculoskeletal: Reports: Back Pain. Denies: Joint Pain, Joint Tenderness Skin: Denies: Rash, Wounds Neurological: Reports: Confusion - this is chronic due to cirrhosis, chronic narcotic use and ESRD. Denies: Slurred speech, Focal weakness, Numbness, Tingling, Seizures Psychiatric: Denies: Anxiety, Depression, Homicidal Ideations, Suicidal Ideations Endocrine: Denies: Change in Body Habitus Hematologic/ Lymphatic: Denies: Easy Bruising, Easy Bleeding, Hx of blood clot VTE Information - Inpt Only VTE Present on Admission: No VTE Mechan Device Prophylaxis: None VTE Pharm Prophylaxis ordered?: No Reason prophylaxis not ordered:: Treatment Not Indicated - she is autoanticoagulated due to cirrhosis with coagulopathy Patient Problems: Active and Suspected Problems (Last Reviewed 09/24/19 @ 13:[address] Robyn Pak, DO) Fecal impaction (Acute) Hematochezia (Acute) Acute on chronic anemia (Acute) Hyperkalemia (Acute) Sick sinus syndrome (Suspected) - Physical Exam Vitals/I&O's: Vital Signs Temp Pulse Resp BP Pulse Ox 96.2 F L 48 L 20 H 92/80 98 09/24/19 12:12 09/24/19 12:12 09/24/19 12:12 09/24/19 12:12 09/24/19 12:12 Oxygen Flow Rate (L/min) 2 Oxygen Delivery Method Nasal Cannula Weight: 210 lb Body Mass Index (BMI) 34.9 Finger Stick Blood Glucose 99 Intake and Output for Last 24 Hours 09/22/19 09/23/19 09/24/19 23:59 23:59 23:59 Intake Total 500 / 500 Balance 500 / 500 General: Alert, Cooperative, No apparent distress, Well developed, Well nourished, - - She is oriented to person and to place and year HEENT: Atraumatic, PERRLA, EOMI, Normocephalic Oral: Dry Mucosa - very dry with crusting of the teeth they are so dry Neck: Supple, No JVD, No Nodes, Trachea Midline Lungs: Clear to auscultation, No wheeze, No rales, Diminished Cardiovascular: Normal S1, Normal S2, No murmurs, No Ectopic Activity, Bradycardic, Irregular Rate - she is in AF with a HR of 55 at the present time, No rub noted, No Gallop Abdomen: Bowel Sounds Present, - - The abdomen is distended and firm in the flanks and suprapubic area and softer in the upper abdomen. She has pitting edema in the flanks. She had no guarding with palpation of her abdomen. Extremities: No clubbing, No cyanosis, Edema - She has 4+ pitting edema of the lower extremities up to the groin and has pitting edema in the flanks of the abdomen. There is also some pitting edema of the lower abdominal wall. No openings in the skin. Skin: No breakdown Neurological: Cranial nerves II-XII grossly intact, Neuro grossly intact Psych/Mental Status: Normal Affect, Appropriate Laboratory Results 09/24/19 10:41: Ammonia 33.0 H 09/24/19 11:15: WBC 5.5, RBC 2.50 L, Hgb 7.8 L, Hct 26.2 L, MCV 104.8 H, MCH 31.2, MCHC 29.8 L, RDW Std Deviation 70.3 H, RDW Coeff of Susan 18.8 H, Plt Count 130 L, MPV 10.0, Immature Gran % (Auto) 0.400, Neut % (Auto) 66.4, Lymph % (Auto) 21.5, [place] % (Auto) 8.4, Eos % (Auto) 2.4, Baso % (Auto) 0.9, Absolute Neuts (auto) 3.6, Absolute Lymphs (auto) 1.17, Nucleated RBC % 0, Differential Comment SCANNED, Ovalocytes 1+ 09/24/19 11:15: Sodium 135 L, Potassium 5.3 H, Chloride 99, Carbon Dioxide 30.0, Anion Gap 6, BUN 23 H, Creatinine 3.66 H, Estim Creat Clear Calc 11.77, Est GFR (MDRD) Af Amer 16 L, Est GFR (MDRD) Non-Af 13 L, BUN/Creatinine Ratio 6.3 L, Glucose 160 H, Calcium 7.7 L, Troponin I 0.017 09/24/19 11:15: Troponin I Cancelled Assessment/Plan All Active Problems (Last Reviewed 09/24/19 @ 13:[address] Robyn Pak, DO) Fecal impaction (Acute) Hematochezia (Acute) Acute on chronic anemia (Acute) Hyperkalemia (Acute) Impressions 1. Fecal impaction with proctalgia and hematochezia secondary to do suspected internal hemorrhoids. This is the third disimpaction in 4 days. she is chronically on narcotics and takes Metamucil and Colace 100 BID. Will need to adjust this regimen. She tells me that the stool is usually soft, she can just not push it out due to weakness 2. acute on chronic anemia with a 2 GM drop in HGB since 09/12/19. She is agreeable to transfusion and since the BP is low and the HGB is likely higher than it really is due to hemoconcentration will transfuse 1 unit today. 3. generalized weakness - due to multiple co-morbid conditions 4. mild hyperkalemia 5. IV volume depletion 6. Chronic medical conditions including: Cirrhosis of the liver with ascites/anemia of chronic renal failure/chronic altered mental status secondary to liver disease, end-stage renal disease and chronic narcotic use/coronary artery disease/coagulopathy secondary to cirrhosis/atrial fibrillation with suspected sick sinus syndrome (not on any medications to block the AV node and yet is bradycardic)/restless leg syndrome/chronic pain syndrome/chronic narcotic use/hypertension/diabetes mellitus type 2/hypothyroidism/peripheral vascular disease - these conditions complicate care, management and prognosis CODE STATUS: Discussed code status at length with one Lauren and her daughter over the phone including the difference between FULL CODE, DNR CCA and DNR CC status. All questions were answered. An order for full code was entered into the computer. A total of 20 minutes face to face time was devoted to advanced care planning. Admit to PCU Transfuse 1 unit of packed red blood cells Restart home medications Consult Dr. Crawley for hemodialysis Consult discharge planning. I suspect that the family is not adequately able to care for this patient and her at home and she may be an appropriate candidate for an ECF. Anusol suppositories 3 times daily for the next few days to treat hemorrhoidal disease Recheck lab in the a.m. Limit narcotic use MiraLAX 17 g p.o. twice daily Senna 2 p.o. twice daily Dulcolax 10 mg p.o. now PT and PTT now Abdominal ultrasound for paracentesis in the a.m. Lactic acid came back at 2.2 but there is no sign of infection and I suspect this is due to IV volume depletion/dehydration and ESRD and not due to sepsis. This patient is appropriate for palliative care and likely hospice. She wants to be a full code. She did speak to palliative care on the phone yesterday and I explained to her what palliative care is. Will need to readdress this during this admission.
--- NOTE | 2019-09-24 13:19 | CASEMGMT ---
MARGO is aware of patient from previous admissions. MARGO had spoken to patient about Palliative Care in the past. However SW is not sure if patient is active or not. MARGO called [facility] and they received another referral yesterday. MARGO let Minda know patient is in the hospital currently. MARGO and RN CM to follow for d/c planning. Marylou RAMIRZE MSW
--- NOTE | 2019-09-24 13:35 | CASEMGMT ---
MARGO called Murtazaserenity Kimbrough at [facility] and left her a voice mail letting her know patient was just admitted to the hospital today. Marylou RAMIREZ MSW
[2019-09-24 13:58] LABS: Lactic Acid 2.2 mmol/L (0.4-1.9)
[2019-09-24 14:14] LABS: Hemoglobin A1c 6.1 % (4.2-6.3)
[2019-09-24 14:22] LABS: International Normalized Ratio 1.6; Prothrombin Time (Protime)PT. 18.2 SECONDS (11.7-14.9)
[2019-09-24 14:23] LABS: Partial Thromboplast Time 42.5 Seconds (24.1-36.2)
--- NOTE | 2019-09-24 14:51 | CON.PCM_ITS ---
Consultation - Renal 09/24/19 PCP/ Referring MD: Requesting physician: Della Pak Primary care physician: Davy Coleman MD - History of Present Illness History of Present Illness: The patient is a 74 year old F with a past medical history of ESRD due to diabetes mellitus type 2, hypertension, hyperlipidemia, coronary artery disease, hypothyroidism, anemia, atrial fibrillation, cirrhosis with ascites requiring paracentesis admitted for back pain, weakness, rectal pain and GI bleed. Hgb down to 7.8g from 8.6g on 09/21 at dialysis center. She has a history of GI bleed. She is on narcotics for pain. BP too low to remove fluid at dialysis center past Sunday due to not taking midodrine and taking narcotics at home instead prior to dialysis treatment. BP in the 70-80's systolic now and on Sunday. She remains fluid overloaded. Hx high interdialytic fluid gains chronically. She had been seen in the [place] emergency room on 09/20/2019 and 09/23/2019 for constipation and was disimpacted on both occasions. She denies any fever, chills, nausea, vomiting. Labs from ER reviewed. Chest x-ray shows no infiltrates. Blood transfusion ordered but not ready. Initiating hemodialysis now. - Allergies Allergies: Allergies lisinopril Allergy (Severe, Verified 09/24/19 09:56) Angioedema nebivolol HCl [From [facility]] Adverse Reaction (Severe, Verified 09/24/19 09:56) bradycardia BRADYCARDIA - Current Medications Current Medications: Current Medications Cholecalciferol (Vitamin D (25mcg)) 5,000 unit PO MoWeFr@1000 [facility] Dextrose (D50w Syringe) 0 gm IV X1 PRN; Protocol PRN Reason: Hypoglycemia Glucagon () 1 mg IM .X1 PRN PRN Reason: Hypoglycemia Insulin Glargine (Lantus (Bkc)) 20 units SC QHS [facility] Insulin Human Lispro (Humalog Kwikpen (Bkc)) 0 unit SC TIDAC [facility]; Protocol Multivitamins (Allbee W/C Caplet, Thera B Comp/C) 1 capsule PO DAILY [facility] Nitroglycerin (Nitrostat) 0.4 mg SUBLINGUAL Q5M PRN PRN Reason: CARDIAC/CHEST PAIN Non-Formulary Medication (Midodrine Hcl) 10 mg PO TID [facility] Nutritional Formula (Nepro Carb Steady) 120 ml PO 4X/DAY [facility] Nystatin (Mycostatin Powder) 1 applic TOPICAL BID [facility]; Protocol Oxycodone HCl (Oxyir) 5 mg PO Q6H PRN PRN PRN Reason: Pain Score 4-5/10 Phenylephrine HCl (Noelle-Med) 1 supp RC TID [facility] Polyethylene Glycol (Miralax) 17 gm PO BID [facility] Pramipexole Dihydrochloride (Mirapex) 0.25 mg PO QHS [facility] Promethazine HCl (Phenergan Tablet) 12.5 mg PO Q12H PRN PRN PRN Reason: NAUSEA Senna/Docusate Sodium (Senokot-S, Sarah-Colace) 2 tablet PO BID [facility] Sodium Chloride () 10 - 40 ml IV UD PRN PRN Reason: SALINE FLUSH - Past Medical History Past Medical History (Chronic Problems): Chronic Problems (Last Reviewed 09/24/19 @ 13:[address] Robyn Pak, DO) Cirrhosis of liver with ascites (Chronic) Chronic pain syndrome (Chronic) Chronic narcotic use (Chronic) Altered mental status (Chronic) Hypotension (Chronic) on Midodrin History of GI bleed (Chronic) History of non-ST elevation myocardial infarction (NSTEMI) (Chronic 07/05/16) Atherosclerotic heart disease of [place] coronary artery without angina pectoris (Chronic) Stented coronary artery (Chronic) Cutting Balloon and TAMI (3.0X18 mm Xience) Proximal LAD 04/18/2012; Rotational atherectomy to proximal, id and distal RCA with two overlapping 4.0 X 38 Synergy TAMI ([facility] main) Ascites (Chronic) Pancytopenia (Chronic) Other specified peripheral vascular diseases (Chronic) Afib (Chronic) Congenital coronary artery anomaly (Chronic) Bradycardia (Chronic) Suspect sick sinus syndrome Diabetes mellitus, type II (Chronic) Hyperlipidemia (Chronic) Hypothyroidism (Chronic) Anemia in chronic kidney disease (Chronic) Hypertension (Chronic) End stage renal disease on dialysis (Chronic) - Past Surgical History Surgical History: appendectomy, cholecystectomy, hysterectomy, total knee arthroplasty, - - Left upper extremity fistula, back surgery, colon resection with history of diverticulitis, GI bleed, right knee surgery, right total knee replacement, right foot surgery, left knee surgery, left foot surgery, PCI. - Social History Smoking Status: Former smoker Alcohol: None Drugs: - - only the narcotics prescribed for her - Family History Maternal Family History: Family History (Last Reviewed 09/24/19 @ 14:[address] Robyn Pak DO) Sister Diabetes Heart disease Hypertension Anemia History Items: Cancer - uterine Paternal Family History: Family History (Last Reviewed 09/24/19 @ 14:[address] Robyn Pak DO) Sister Diabetes Heart disease Hypertension Anemia History Items: Cancer Sibling Family History: Family History (Last Reviewed 09/24/19 @ 14:[address] Robyn Pak DO) Sister Diabetes Heart disease Hypertension Anemia History Items: Diabetes Review of Systems Constitutional: Reports: Anorexia, Weakness, Fatigue. Denies: Chills, Fever Cardiovascular: Reports: Edema Respiratory: Denies: Cough, Shortness of Breath Gastrointestinal: Reports: Constipation - disimpaction in ER, Hematochezia, Melena, - - abdominal distension, ascites, - - buttock pain. Denies: Abdominal Pain, Hematemesis, Nausea, Vomiting Genitourinary: Reports: - - anuric Musculoskeletal: Reports: Back Pain, - - leg swelling Skin: Reports: -. Denies: Rash Neurological: Reports: - - gen weakness Psychiatric: Reports: Anxiety, Depression Hematologic/ Lymphatic: Reports: Anemia Patient Problems: Active and Suspected Problems (Last Reviewed 09/24/19 @ 13:[address] Robyn Pak DO) Fecal impaction (Acute) Hematochezia (Acute) Acute on chronic anemia (Acute) Hyperkalemia (Acute) Sick sinus syndrome (Suspected) - Physical Exam Vitals/I&O's: Vital Signs Temp Pulse Resp BP Pulse Ox 98.0 F 60 18 91/31 L 94 09/24/19 14:33 09/24/19 14:36 09/24/19 14:33 09/24/19 14:33 09/24/19 14:33 Oxygen Flow Rate (L/min) 2 Oxygen Delivery Method Nasal Cannula Weight: 95.254 kg Body Mass Index (BMI) 34.9 Finger Stick Blood Glucose 99 Intake and Output for Last 24 Hours 09/22/19 09/23/19 09/24/19 23:59 23:59 23:59 Intake Total 500 / 500 Balance 500 / 500 General: Cooperative, No apparent distress, - - drowsy, somnolent, limited historian Oral: Dry Mucosa - mouth breather Lungs: Clear to auscultation - anteriorly Cardiovascular: Irregular Rate - afib on monitor Abdomen: Bowel Sounds Present, Soft, Non Tender, Obese, - - tense ascites Extremities: Edema Skin: - - mild erythema Musculoskeletal: Muscle Wasting, - - gen weakness Psych/Mental Status: - - lethargic, Alert and oriented to time, place, person, mood and affect Laboratory Results 09/24/19 10:41: Ammonia 33.0 H 09/24/19 11:15: WBC 5.5, RBC 2.50 L, Hgb 7.8 L, Hct 26.2 L, MCV 104.8 H, MCH 31.2, MCHC 29.8 L, RDW Std Deviation 70.3 H, RDW Coeff of Susan 18.8 H, Plt Count 130 L, MPV 10.0, Immature Gran % (Auto) 0.400, Neut % (Auto) 66.4, Lymph % (Auto) 21.5, Bailey % (Auto) 8.4, Eos % (Auto) 2.4, Baso % (Auto) 0.9, Absolute Neuts (auto) 3.6, Absolute Lymphs (auto) 1.17, Nucleated RBC % 0, Differential Comment SCANNED, Ovalocytes 1+ 09/24/19 11:15: Sodium 135 L, Potassium 5.3 H, Chloride 99, Carbon Dioxide 30.0, Anion Gap 6, BUN 23 H, Creatinine 3.66 H, Estim Creat Clear Calc 11.77, Est GFR (MDRD) Af Amer 16 L, Est GFR (MDRD) Non-Af 13 L, BUN/Creatinine Ratio 6.3 L, Glucose 160 H, Calcium 7.7 L, Troponin I 0.017 09/24/19 11:15: Troponin I Cancelled 09/24/19 11:15: Hemoglobin A1c 6.1 09/24/19 13:25: Lactic Acid 2.2 H* 09/24/19 13:55: PT 18.2 H, INR 1.6, APTT 42.5 H 09/24/19 13:55: Blood Type Cancelled, Antibody Screen Cancelled, Crossmatch See Detail Clinical Impression(s) from Imaging Studies Acute Abdomen Series 09/24/19 10:14 IMPRESSION: Chest demonstrates cardiomegaly. Severe diffuse atherosclerosis. Nonspecific bowel gas pattern. No evidence for free air. Electronically Signed: Luis Sawant, at 13:01 EDT Tel , Service support , Current Medications Cholecalciferol (Vitamin D (25mcg)) 5,000 unit PO MoWeFr@1000 [facility] Dextrose (D50w Syringe) 0 gm IV X1 PRN; Protocol PRN Reason: Hypoglycemia Glucagon () 1 mg IM .X1 PRN PRN Reason: Hypoglycemia Insulin Glargine (Lantus (Bkc)) 20 units SC QHS [facility] Insulin Human Lispro (Humalog Kwikpen ([facility])) 0 unit SC TIDAC [facility]; Protocol Multivitamins (Allbee W/C Caplet, Thera B Comp/C) 1 capsule PO DAILY [facility] Nitroglycerin (Nitrostat) 0.4 mg SUBLINGUAL Q5M PRN PRN Reason: CARDIAC/CHEST PAIN Non-Formulary Medication (Midodrine Hcl) 10 mg PO TID [facility] Nutritional Formula (Nepro Carb Steady) 120 ml PO 4X/DAY [facility] Nystatin (Mycostatin Powder) 1 applic TOPICAL BID [facility]; Protocol Oxycodone HCl (Oxyir) 5 mg PO Q6H PRN PRN PRN Reason: Pain Score 4-5/10 Phenylephrine HCl (Noelle-Med) 1 supp RC TID [facility] Polyethylene Glycol (Miralax) 17 gm PO BID [facility] Pramipexole Dihydrochloride (Mirapex) 0.25 mg PO QHS [facility] Promethazine HCl (Phenergan Tablet) 12.5 mg PO Q12H PRN PRN PRN Reason: NAUSEA Senna/Docusate Sodium (Senokot-S, Sarah-Colace) 2 tablet PO BID [facility] Sodium Chloride () 10 - 40 ml IV UD PRN PRN Reason: SALINE FLUSH Assessment/Plan All Active Problems (Last Reviewed 09/24/19 @ 13:[address] Robyn Pak, DO) Fecal impaction (Acute) Hematochezia (Acute) Acute on chronic anemia (Acute) Hyperkalemia (Acute) 1. ESRD HD today, limited on fluid removal due to hypotension. Use crit line 2. Hypotension noncompliant with midodrine. On chronic narcotics 3 GI bleed prbc ordered 4. DM2 primary care mgmt 5. Encephalopathy chronic, due to narcotics 6. Ascites with liver cirrhosis requiring paracentesis frequentlyl 7. Anasarca, remove fluid on dialysis as tolerated
[2019-09-24 17:30] LABS: Reflex Lactate? Y
[2019-09-24 18:24] LABS: Lactic Acid 1.3 mmol/L (0.4-1.9)
[2019-09-24 18:45] LABS: Bedside Glucose 101 mg/dL (70-110)
[2019-09-24] MEDS: Bisacodyl 5 MG Tablet 10 MG PO (18:47)
--- NOTE | 2019-09-24 20:02 | DIALYSIS ---
1845: Hd x 3.5 hours complete. Tolerated tx well. Ran on 2k bath. Uf of 3000ml. Received 2 units of PRBC's during tx. Used left arm access. Rifton removed post tx and pressure applied x 10 minutes. Hemostasis achieved. Fresh gauze and tape applied. Report was given to EDIN Pace.
[2019-09-24] MEDS: Pramipexole Di-HCl 0.25 MG Tablet PO (22:01)
[2019-09-24] MEDS: Polyethylene Glycol 3350 17 GM PACKET PO (22:01)
[2019-09-24] MEDS: Senna/Docusate Sodium 1 Tablet 2 TABLET PO (22:01)
[2019-09-24] MEDS: Nystatin Powder 15gm Bottle 1 APPLIC TOPICAL (22:07)
[2019-09-25] VITALS (38 sets, daily range): BP systolic 61–134; BP diastolic 20–80; PULSE 45–73; RESP 11–22; TEMP 36–36.8; O2SAT 88–100
[2019-09-25 01:06] LABS: Bedside Glucose 118 mg/dL (70-110)
[2019-09-25] MEDS: oxyCODONE 5 MG Tablet 10 MG PO (01:46)
[2019-09-25] MEDS: Midodrine HCl 5 MG Tablet 10 MG PO ×2 (06:21→21:49)
[2019-09-25 06:24] LABS: Hematocrit 32.9 % (37-47); Hemoglobin 10.3 g/dL (12.0-15.0); Mean Corp Hgb Conc 31.3 g/dL (32-36); Mean Corpuscular Hgb 30.7 pg (27.0-32.0); Mean Corpuscular Volume 97.9 fL (81-99); Mean Platelet Vol. 9.5 fl (6.2-12.0); POSITIVE MORPHOLOGY YES; Platelet Count 147 K/mm3 (150-450); RBC Distribution Width CV 19.5 % (11.6-14.6); Red Blood Count 3.36 M/mm3 (4.2-5.4); White Blood Count 6.5 K/mm3 (4.4-11.0)
[2019-09-25] MEDS: Dextrose 50%-Water 25 GM/50 ML DISP.SYRIN IV ×5 (06:40→12:52)
[2019-09-25] MEDS: 0.9% Saline Lock 10 ML Syringe IV ×3 (06:49→12:26)
[2019-09-25 06:52] LABS: Glucose 21 mg/dL (74-106); Phosphorus 3.4 mg/dL (2.5-4.9)
[2019-09-25 06:53] LABS: Scan Indicated on CBC? Y/N YES- FLAGS NOTED
[2019-09-25 07:06] LABS: Bedside Glucose < 10 mg/dL (70-110)
[2019-09-25 07:06] LABS: Bedside Glucose 119 mg/dL (70-110)
--- NOTE | 2019-09-25 07:32 | PN_ITS ---
Patient Problems: Active and Suspected Problems (Last Reviewed 09/24/19 @ 13:[address] Robyn Pak, DO) Fecal impaction (Acute) Hematochezia (Acute) Acute on chronic anemia (Acute) Hyperkalemia (Acute) Sick sinus syndrome (Suspected) Reason for Visit: Follow-up on: fecal impaction/acute on chronic constipation/acute on chronic anemia/hypoglycemia Subjective: Patient was admitted on 09/24/19 with above. Early this morning, to be hypoglycemic with blood sugar of 21 and hypotensive. Rapid response was called. Patient given D50. Patient was seen in the ICU, lethargic, minimally responsive to sternal rub, repeat blood sugar was 78. Treated with D50. Blood pressure is low. Plan for midline in progress. Vitals/I&O's: Vital Signs Temp Pulse Resp BP Pulse Ox 98.3 F 56 L 16 73/25 L 93 09/25/19 06:10 09/25/19 06:55 09/25/19 06:10 09/25/19 06:55 09/25/19 06:10 Oxygen Flow Rate (L/min) 2 Oxygen Delivery Method Nasal Cannula Weight: 93.7 kg Body Mass Index (BMI) 34.9 Finger Stick Blood Glucose 99 Intake and Output for Last 24 Hours 09/23/19 09/24/19 09/25/19 23:59 23:59 23:59 Intake Total 1780 / 1780 Output Total 3000 / 3000 Balance -1220 / -1220 General: Lethargic, - - On Venturi mask, appears comfortable, pale, not jaundiced, moderately dehydrated HEENT: Atraumatic, PERRLA, EOMI, Normocephalic Oral: Moist Mucosa Neck: Supple Lungs: Clear to auscultation, Normal air movement Cardiovascular: Regular rate, Regular Rhythm, Normal S1, Normal S2 Abdomen: Bowel Sounds Present, Soft, Non Tender, Distended, Obese, - - Ascites ++, abdominal wall edema Extremities: Edema - +2, generalised, worse in the thighs and back Skin: No rashes Musculoskeletal: No Tenderness to Palpation of Joints or Extremities Lymphatic: No Cervical, Supraclavicular, or Inguinal Adenopathy Neurological: - - Lethargic, unable to fully assess Psych/Mental Status: Normal Affect, Appropriate Laboratory Results 09/24/19 10:41: Ammonia 33.0 H 09/24/19 11:15: WBC 5.5, RBC 2.50 L, Hgb 7.8 L, Hct 26.2 L, MCV 104.8 H, MCH 31.2, MCHC 29.8 L, RDW Std Deviation 70.3 H, RDW Coeff of Susan 18.8 H, Plt Count 130 L, MPV 10.0, Immature Gran % (Auto) 0.400, Neut % (Auto) 66.4, Lymph % (Auto) 21.5, [place] % (Auto) 8.4, Eos % (Auto) 2.4, Baso % (Auto) 0.9, Absolute Neuts (auto) 3.6, Absolute Lymphs (auto) 1.17, Nucleated RBC % 0, Differential Comment SCANNED, Ovalocytes 1+ 09/24/19 11:15: Sodium 135 L, Potassium 5.3 H, Chloride 99, Carbon Dioxide 30.0, Anion Gap 6, BUN 23 H, Creatinine 3.66 H, Estim Creat Clear Calc 11.77, Est GFR (MDRD) Af Amer 16 L, Est GFR (MDRD) Non-Af 13 L, BUN/Creatinine Ratio 6.3 L, Glucose 160 H, Calcium 7.7 L, Troponin I 0.017 09/24/19 11:15: Troponin I Cancelled 09/24/19 11:15: Hemoglobin A1c 6.1 09/24/19 13:25: Lactic Acid 2.2 H* 09/24/19 13:55: PT 18.2 H, INR 1.6, APTT 42.5 H 09/24/19 13:55: Blood Type Cancelled, Antibody Screen Cancelled, Crossmatch See Detail 09/24/19 14:55: Blood Type O NEGATIVE, Antibody Screen NEGATIVE, Crossmatch See Detail 09/24/19 17:47: Lactic Acid 1.3 09/24/19 18:38: POC Glucose 101 09/24/19 21:57: POC Glucose 118 H 09/25/19 06:05: WBC 6.5, RBC 3.36 L, Hgb 10.3 L, Hct 32.9 L, MCV 97.9 D, MCH 30.7, MCHC 31.3 L D, RDW Std Deviation 66.0 H, RDW Coeff of Susan 19.5 H, Plt Count 147 L, MPV 9.5, Differential Comment COMMENT 09/25/19 06:05: Glucose 21 L*, Phosphorus 3.4 09/25/19 06:33: POC Glucose < 10 L* 09/25/19 06:49: POC Glucose 119 H Current Medications Cholecalciferol (Vitamin D (25mcg)) 5,000 unit PO MoWeFr@1000 [facility] Dextrose (D50w Syringe) 0 gm IV X1 PRN; Protocol PRN Reason: Hypoglycemia Last Admin: 09/25/19 06:52 Dose: 25 gm Documented by: Glucagon () 1 mg IM .X1 PRN PRN Reason: Hypoglycemia Insulin Glargine (Lantus ([facility])) 20 units SC QHS [facility] Last Admin: 09/24/19 22:06 Dose: 20 units Documented by: Insulin Human Lispro (Humalog Kwikpen ([facility])) 0 unit SC TIDAC [facility]; Protocol Last Admin: 09/24/19 18:49 Dose: Not Given Documented by: Midodrine (Proamatine) 10 mg PO TID [facility] Last Admin: 09/25/19 06:21 Dose: 10 mg Documented by: Multivitamins (Allbee W/C Caplet, Thera B Comp/C) 1 capsule PO DAILY [facility] Nitroglycerin (Nitrostat) 0.4 mg SUBLINGUAL Q5M PRN PRN Reason: CARDIAC/CHEST PAIN Nutritional Formula (Nepro Carb Steady) 120 ml PO 4X/DAY [facility] Last Admin: 09/24/19 22:00 Dose: Not Given Documented by: Nystatin (Mycostatin Powder) 1 applic TOPICAL BID [facility]; Protocol Last Admin: 09/24/19 22:07 Dose: 1 applicatio Documented by: Oxycodone HCl (Oxyir) 10 mg PO Q6H PRN PRN PRN Reason: Pain Score 6-10/10 Last Admin: 09/25/19 01:46 Dose: 10 mg Documented by: Phenylephrine HCl (Noelle-Med) 1 supp RC TID [facility] Last Admin: 09/24/19 19:58 Dose: Not Given Documented by: Polyethylene Glycol (Miralax) 17 gm PO BID [facility] Last Admin: 09/24/19 22:01 Dose: 17 gm Documented by: Pramipexole Dihydrochloride (Mirapex) 0.25 mg PO QHS [facility] Last Admin: 09/24/19 22:01 Dose: 0.25 mg Documented by: Promethazine HCl (Phenergan Tablet) 12.5 mg PO Q12H PRN PRN PRN Reason: NAUSEA Senna/Docusate Sodium (Senokot-S, Sarah-Colace) 2 tablet PO BID [facility] Last Admin: 09/24/19 22:01 Dose: 2 tablet Documented by: Sodium Chloride () 10 - 40 ml IV UD PRN PRN Reason: SALINE FLUSH Last Admin: 09/25/19 06:52 Dose: 20 ml Documented by: STROKE Vital Signs/Narrative: Vital Signs Temp Pulse Resp BP BP Pulse Ox 09/25/19 06:55 56 L 73/25 L 09/25/19 06:45 54 L 72/30 L 09/25/19 06:10 98.3 F 60 16 83/20 L 93 09/25/19 03:39 72 Medical Necessity - Tobacco Use Smoking Status: Former smoker Tobacco Use: Non-smoker Assessment/Plan All Active Problems (Last Reviewed 09/24/19 @ 13:[address] Robyn Pak, DO) Fecal impaction (Acute) Hematochezia (Acute) Acute on chronic anemia (Acute) Hyperkalemia (Acute) 1. Hypoglycemia, HgBA1c 6.1, on long-acting insulin In a patient with multiple comorbidities including ESRD We will hold long-acting insulin and any other insulins Accu-Cheks every 6h 2. Hypotension, history of hypertension, on Midodrine No signs of sepsis, likely has component of hypovolemia IV fluid bolus, IV pressors, Monitor blood pressures closely 3. Acute on chronic anemia secondary to acute blood loss secondary to hematochezia/suspected hemorrhoids/diverticulosis Hemoglobin was 7.8 yesterday, transfuse 2 unit of packed RBCs Repeat hemoglobin is 10.3, at goal for ESRD Will continue to monitor 4. Constipation, acute on chronic, status post treatment yesterday We will monitor for further hematochezia 5. ESRD on hemodialysis, Sunday?Sunday?Sunday Nephrology consulted 6. Acute on chronic hepatic encephalopathy, Cirrhosis of the liver with ascites Ammonia was 33 yesterday, will repeat today 7. Rest of chronic medical conditions including chronic atrial fibrillation with suspected sick sinus syndrome/hypothyroidism/chronic pain syndrome - remained stable for now. Patient's chronic pain medicines are on hold. Would anticipate some opioid withdrawal from patient's mentation improves, and will be monitoring. 8. CODE STATUS: Full code -patient is a candidate for palliative care/hospice Discussed patient's CODE STATUS with her daughter, Jackeline Brian who is in the process of being patient's healthcare scraper burrer. Jackeline Brian says that the patient would want everything done to keep her alive. They had talked about hospice in the past and she had refused. I updated her on her current concurrent worsening comorbidities -including hypoglycemia, acute on chronic anemia, hypotension, chronic liver disease, recurrent ascites. She would like to have a talk with her siblings and get back to the treatment team. We will keep patient full code pending patient/family's decision. Time spent discussing CODE STATUS 20 minutes Inpatient E&M: [id number] [facility] L3 Procedures: 72799 Advncd Care Plan 30 Min
--- NOTE | 2019-09-25 08:02 | RAD_ITS ---
STUDY: X-RAY CHEST REASON FOR EXAM: Female, 74 years old. hypotension, eval for PNA TECHNIQUE: Single AP portable view of the chest. COMPARISON: 09/08/2019 FINDINGS: The lungs are clear and expanded. Elevated right hemidiaphragm which is unchanged. There is moderate cardiac enlargement. Normal mediastinum and roxy. Normal visualized pulmonary arteries. Normal visualized aortic arch and descending thoracic aorta. Normal visualized thoracic spine. Multiple healed right rib fractures. There is no demonstrated abnormality of the visualized soft tissue structures of the upper abdomen. RAD/Chest 1 View (Portable) IMPRESSION: No active disease. Electronically Signed: Diogo Pearl MD at 8:32 EDT Tel , Service support ,
--- NOTE | 2019-09-25 08:49 | PCM.CON.CC ---
Reason for Consult Date of Consultation: 09/25/19 Reason for Consultation: Altered mental status and hypotension History of Present Illness: The patient is a 74-year-old female, well-known from prior hospitalizations, who presented to the emergency department on September 23 with generalized weakness, rectal pain and bright red blood per rectum. The patient has a history of high resource utilization and frequent hospital admissions. In fact, the patient was just admitted to the hospital September 05 with acute encephalopathy and hypovolemic shock. The patient does have a medical history that includes coronary artery disease, end-stage renal disease on hemodialysis, anemia, atrial fibrillation, cirrhosis and chronic hypotension (requiring outpatient scheduled Midodrine). On presentation to the emergency department, the patient was noted to be afebrile with a blood pressure of 88/45 mmHg. Laboratory evaluation revealed a normal white blood cell count. The patient was anemic with a hemoglobin of 7.8 g/dL. Platelet count was low at 130,000. Initial lactate was elevated to 2.2. Ammonia was only elevated at 33. Chest x-ray revealed no acute cardiopulmonary process. In the emergency department, the patient was manually disimpacted and given supplemental IV fluids. The patient was initially admitted to the progressive care unit, where she received transfusion of packed red blood cells. On the evening of September 23, the patient tolerated 3.5 hours of hemodialysis with 3 L of fluid removed. On the morning of September 24, a rapid response team was called due to the patient being less responsive, hypotensive and hypoglycemic. The patient received supplemental dextrose and was transferred to the medical intensive care unit, where she was placed on Levophed to maintain hemodynamic stability. Arterial blood gas was within normal limits. The patient's presentation this morning is quite similar to that noted during her prior hospitalization. Past Medical History Past Medical History (Chronic Problems): Chronic Problems (Last Reviewed 09/24/19 @ 13:[address] Robyn Pak DO) Cirrhosis of liver with ascites (Chronic) Chronic pain syndrome (Chronic) Chronic narcotic use (Chronic) Altered mental status (Chronic) Hypotension (Chronic) on Midodrin History of GI bleed (Chronic) History of non-ST elevation myocardial infarction (NSTEMI) (Chronic 07/05/16) Atherosclerotic heart disease of [place] coronary artery without angina pectoris (Chronic) Stented coronary artery (Chronic) Cutting Balloon and TAMI (3.0X18 mm Xience) Proximal LAD 04/18/2012; Rotational atherectomy to proximal, id and distal RCA with two overlapping 4.0 X 38 Synergy TAMI ([facility] main) Ascites (Chronic) Pancytopenia (Chronic) Other specified peripheral vascular diseases (Chronic) Afib (Chronic) Congenital coronary artery anomaly (Chronic) Bradycardia (Chronic) Suspect sick sinus syndrome Diabetes mellitus, type II (Chronic) Hyperlipidemia (Chronic) Hypothyroidism (Chronic) Anemia in chronic kidney disease (Chronic) Hypertension (Chronic) End stage renal disease on dialysis (Chronic) Medical History: Medical History (Last Reviewed 09/24/19 @ 13:[address] Robyn Pak, DO) History of GI bleed (Chronic) Z87.19 History of non-ST elevation myocardial infarction (NSTEMI) (Chronic) Onset Date: 07/05/16 I25.2 Atherosclerotic heart disease of [place] coronary artery without angina pectoris (Chronic) I25.10 Ascites (Chronic) R18.8 Pancytopenia (Chronic) D61.818 Other specified peripheral vascular diseases (Chronic) I73.89 Afib (Chronic) I48.91 Congenital coronary artery anomaly (Chronic) Q24.5 Bradycardia (Chronic) R00.1 Suspect sick sinus syndrome Diabetes mellitus, type II (Chronic) E11.9 Hyperlipidemia (Chronic) E78.5 Hypothyroidism (Chronic) E03.9 Anemia in chronic kidney disease (Chronic) N18.9, D63.1 Hypertension (Chronic) I10 End stage renal disease on dialysis (Chronic) N18.6, 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 Skin cancer C44.90 mouth/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, 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 Allergies lisinopril Allergy (Severe, Verified 09/24/19 09:56) Angioedema nebivolol HCl [From Bystolic] Adverse Reaction (Severe, Verified 09/24/19 09:56) bradycardia BRADYCARDIA Home Medications: Ambulatory Orders Medication Instructions Recorded Acetaminophen [Tylenol] 650 mg PO Q6H PRN 08/06/19 B Complex W-C No.20/Folic Acid 1 mg PO DAILY 08/06/19 [Virt-Caps Softgel] Cholecalciferol (VIT D3) [Vitamin 5,000 unit PO MOWEFR 08/06/19 D3] Docusate Sodium 100 mg PO BID 08/06/19 Melatonin 5 mg PO QHS 08/06/19 Nitroglycerin 0.4 mg SL PRN PRN 08/06/19 Ropinirole HCl [Requip] 2 tab PO QHS 08/06/19 Midodrine HCl 10 mg PO TID #90 tab 09/12/19 Nystatin Powder [Mycostatin Powder] 1 applic TOPICAL BID #1 bottle 09/12/19 Insulin Lispro [Humalog] 2 - 12 unit SUBCUT TIDCM #1 pen 09/13/19 Oxycodone HCl/Acetaminophen 1 tab PO Q6H PRN PRN 09/24/19 [Percocet 10-325 mg Tablet] Psyllium [Metamucil] 1 packet PO DAILY 09/24/19 proMETHazine tablet [Phenergan 12.5 mg PO Q6H PRN PRN 09/24/19 tablet] Surgical History: Surgical History (Last Reviewed 09/24/19 @ 13:[address] Robyn Pak DO) Stented coronary artery (Chronic) Z95.5 Cutting Balloon and TAMI (3.0X18 mm Xience) Proximal LAD 04/18/2012; Rotational atherectomy to proximal, id and distal RCA with two overlapping 4.0 X 38 Synergy TAIM ([facility]) History of back surgery Z98.890 LATE 70'S History of colectomy Z90.49 History of hysterectomy Z90.710 History of laparoscopic cholecystectomy Z90.49 History of total right knee replacement Z96.651 Hx of foot surgery Z98.890 S/P left rotator cuff repair Z98.890 history left A-V fistula Surgical History: appendectomy, cholecystectomy, hysterectomy, total knee arthroplasty, - - Left upper extremity fistula, back surgery, colon resection with history of diverticulitis, GI bleed, right knee surgery, right total knee replacement, right foot surgery, left knee surgery, left foot surgery, PCI. 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 Robyn Pak DO) Sister Diabetes Heart disease Hypertension Anemia History Items: Cancer - uterine Paternal Family History: Family History (Last Reviewed 09/24/19 @ 14:[address] Robyn Pak DO) Sister Diabetes Heart disease Hypertension Anemia History Items: Cancer Sibling Family History: Family History (Last Reviewed 09/24/19 @ 14:[address] Robyn Pak DO) Sister Diabetes Heart disease Hypertension Anemia History Items: Diabetes Review of Systems Unable to obtain accurate/complete ROS d/t: Due to encephalopathic state. Patient Problems: Active and Suspected Problems (Last Reviewed 09/24/19 @ 13:[address] Robyn aPk DO) Fecal impaction (Acute) Hematochezia (Acute) Acute on chronic anemia (Acute) Hyperkalemia (Acute) Sick sinus syndrome (Suspected) - Physical Exam Vitals/I&O's: Vital Signs Temp Pulse Resp BP Pulse Ox 98.3 F 56 L 16 61/33 L 93 09/25/19 06:10 09/25/19 06:55 09/25/19 06:10 09/25/19 08:10 09/25/19 06:10 Oxygen Flow Rate (L/min) 2 Oxygen Delivery Method Nasal Cannula Weight: 206 lb 9.17 oz Body Mass Index (BMI) 34.9 Finger Stick Blood Glucose 99 Intake and Output for Last 24 Hours 09/23/19 09/24/19 09/25/19 23:59 23:59 23:59 Intake Total 1780 / 1780 Output Total 3000 / 3000 Balance -1220 / -1220 General: Disoriented, Lethargic HEENT: Atraumatic, Normocephalic Oral: Dry Mucosa, - - Edentulous Neck: Supple, No Nodes, Trachea Midline Lungs: Diminished Cardiovascular: Normal S1, Normal S2, Bradycardic, Irregular Rate Abdomen: Bowel Sounds Present, Soft, Distended, Obese Extremities: No clubbing, No cyanosis, Edema Skin: No breakdown Musculoskeletal: No Muscle Wasting Lymphatic: No Cervical, Supraclavicular, or Inguinal Adenopathy Neurological: Cranial nerves II-XII grossly intact, - - Quite lethargic but will withdrawal to painful stimulation. Psych/Mental Status: Flat Affect Labs (Last 48 Hours) 09/24/19 09/24/19 09/24/19 10:41 11:15 11:15 WBC 5.5 RBC 2.50 L Hgb 7.8 L Hct 26.2 L MCV 104.8 H MCH 31.2 MCHC 29.8 L RDW Std Deviation 70.3 H RDW Coeff of Susan 18.8 H Plt Count 130 L MPV 10.0 Immature Gran % (Auto) 0.400 Neut % (Auto) 66.4 Lymph % (Auto) 21.5 [place] % (Auto) 8.4 Eos % (Auto) 2.4 Baso % (Auto) 0.9 Absolute Neuts (auto) 3.6 Absolute Lymphs (auto) 1.17 Nucleated RBC % 0 Differential Comment SCANNED Ovalocytes 1+ PT INR APTT Specimen Type Sample Site pH Bicarbonate Actual POC Total CO2 Base Excess O2 Saturation ABG pCO2 ABG pO2 O2 Delivery Device Liter Flow Blood Gas Notified Whom Blood Gas Notified Time Sodium 135 L Potassium 5.3 H Chloride 99 Carbon Dioxide 30.0 Anion Gap 6 BUN 23 H Creatinine 3.66 H Estim Creat Clear Calc 11.77 Est GFR (MDRD) Af Amer 16 L Est GFR (MDRD) Non-Af 13 L BUN/Creatinine Ratio 6.3 L Glucose 160 H Hemoglobin A1c Lactic Acid Calcium 7.7 L Phosphorus Ammonia 33.0 H Troponin I 0.017 TSH POC Glucose Blood Type Antibody Screen Crossmatch 09/24/19 09/24/19 09/24/19 11:15 11:15 13:25 WBC RBC Hgb Hct MCV MCH MCHC RDW Std Deviation RDW Coeff of Susan Plt Count MPV Immature Gran % (Auto) Neut % (Auto) Lymph % (Auto) [place] % (Auto) Eos % (Auto) Baso % (Auto) Absolute Neuts (auto) Absolute Lymphs (auto) Nucleated RBC % Differential Comment Ovalocytes PT INR APTT Specimen Type Sample Site pH Bicarbonate Actual POC Total CO2 Base Excess O2 Saturation ABG pCO2 ABG pO2 O2 Delivery Device Liter Flow Blood Gas Notified Whom Blood Gas Notified Time Sodium Potassium Chloride Carbon Dioxide Anion Gap BUN Creatinine Estim Creat Clear Calc Est GFR (MDRD) Af Amer Est GFR (MDRD) Non-Af BUN/Creatinine Ratio Glucose Hemoglobin A1c 6.1 Lactic Acid 2.2 H* Calcium Phosphorus Ammonia Troponin I Cancelled TSH POC Glucose Blood Type Antibody Screen Crossmatch 09/24/19 09/24/19 09/24/19 13:55 13:55 14:55 WBC RBC Hgb Hct MCV MCH MCHC RDW Std Deviation RDW Coeff of Susan Plt Count MPV Immature Gran % (Auto) Neut % (Auto) Lymph % (Auto) [place] % (Auto) Eos % (Auto) Baso % (Auto) Absolute Neuts (auto) Absolute Lymphs (auto) Nucleated RBC % Differential Comment Ovalocytes PT 18.2 H INR 1.6 APTT 42.5 H Specimen Type Sample Site pH Bicarbonate Actual POC Total CO2 Base Excess O2 Saturation ABG pCO2 ABG pO2 O2 Delivery Device Liter Flow Blood Gas Notified Whom Blood Gas Notified Time Sodium Potassium Chloride Carbon Dioxide Anion Gap BUN Creatinine Estim Creat Clear Calc Est GFR (MDRD) Af Amer Est GFR (MDRD) Non-Af BUN/Creatinine Ratio Glucose Hemoglobin A1c Lactic Acid Calcium Phosphorus Ammonia Troponin I TSH POC Glucose Blood Type Cancelled O NEGATIVE Antibody Screen Cancelled NEGATIVE Crossmatch See Detail See Detail 09/24/19 09/24/19 09/24/19 17:47 18:38 21:57 WBC RBC Hgb Hct MCV MCH MCHC RDW Std Deviation RDW Coeff of Susan Plt Count MPV Immature Gran % (Auto) Neut % (Auto) Lymph % (Auto) [place] % (Auto) Eos % (Auto) Baso % (Auto) Absolute Neuts (auto) Absolute Lymphs (auto) Nucleated RBC % Differential Comment Ovalocytes PT INR APTT Specimen Type Sample Site pH Bicarbonate Actual POC Total CO2 Base Excess O2 Saturation ABG pCO2 ABG pO2 O2 Delivery Device Liter Flow Blood Gas Notified Whom Blood Gas Notified Time Sodium Potassium Chloride Carbon Dioxide Anion Gap BUN Creatinine Estim Creat Clear Calc Est GFR (MDRD) Af Amer Est GFR (MDRD) Non-Af BUN/Creatinine Ratio Glucose Hemoglobin A1c Lactic Acid 1.3 Calcium Phosphorus Ammonia Troponin I TSH POC Glucose 101 118 H Blood Type Antibody Screen Crossmatch 09/25/19 09/25/19 09/25/19 06:05 06:05 06:05 WBC 6.5 RBC 3.36 L Hgb 10.3 L Hct 32.9 L MCV 97.9 D MCH 30.7 MCHC 31.3 L D RDW Std Deviation 66.0 H RDW Coeff of Susan 19.5 H Plt Count 147 L MPV 9.5 Immature Gran % (Auto) Neut % (Auto) Lymph % (Auto) [place] % (Auto) Eos % (Auto) Baso % (Auto) Absolute Neuts (auto) Absolute Lymphs (auto) Nucleated RBC % Differential Comment COMMENT Ovalocytes PT INR APTT Specimen Type Sample Site pH Bicarbonate Actual POC Total CO2 Base Excess O2 Saturation ABG pCO2 ABG pO2 O2 Delivery Device Liter Flow Blood Gas Notified Whom Blood Gas Notified Time Sodium Potassium Chloride Carbon Dioxide Anion Gap BUN Creatinine Estim Creat Clear Calc Est GFR (MDRD) Af Amer Est GFR (MDRD) Non-Af BUN/Creatinine Ratio Glucose 21 L* Hemoglobin A1c Lactic Acid Calcium Phosphorus 3.4 Ammonia Troponin I TSH Pending POC Glucose Blood Type Antibody Screen Crossmatch 09/25/19 09/25/19 09/25/19 06:33 06:49 07:20 WBC RBC Hgb Hct MCV MCH MCHC RDW Std Deviation RDW Coeff of Susan Plt Count MPV Immature Gran % (Auto) Neut % (Auto) Lymph % (Auto) [place] % (Auto) Eos % (Auto) Baso % (Auto) Absolute Neuts (auto) Absolute Lymphs (auto) Nucleated RBC % Differential Comment Ovalocytes PT INR APTT Specimen Type ART Sample Site R BRACHIAL pH 7.38 Bicarbonate Actual 31.4 H POC Total CO2 33 Base Excess 6 H O2 Saturation 92 L ABG pCO2 53.5 H ABG pO2 66 L O2 Delivery Device Nasal Can Liter Flow 2.0 Blood Gas Notified Whom ICU MD Blood Gas Notified Time 705 Sodium Potassium Chloride Carbon Dioxide Anion Gap BUN Creatinine Estim Creat Clear Calc Est GFR (MDRD) Af Amer Est GFR (MDRD) Non-Af BUN/Creatinine Ratio Glucose Hemoglobin A1c Lactic Acid Calcium Phosphorus Ammonia Troponin I TSH POC Glucose < 10 L* 119 H Blood Type Antibody Screen Crossmatch Clinical Impression(s) from Imaging Studies Acute Abdomen Series 09/24/19 10:14 IMPRESSION: Chest demonstrates cardiomegaly. Severe diffuse atherosclerosis. Nonspecific bowel gas pattern. No evidence for free air. Electronically Signed: Luis Sawant at 13:01 EDT Tel , Service support , Chest X-Ray 09/25/19 08:02 IMPRESSION: No active disease. Electronically Signed: Diogo Pearl MD at 8:32 EDT Tel , Service support , Current Medications Dextrose (D50w Syringe) 0 gm IV X1 PRN; Protocol PRN Reason: Hypoglycemia Last Admin: 09/25/19 06:52 Dose: 25 gm Documented by: Glucagon () 1 mg IM .X1 PRN PRN Reason: Hypoglycemia Norepinephrine Bitartrate 8 mg (/ Sodium Chloride) 250 mls @ 9.375 mls/hr CONT INF .[id number] REPLACED BY [facility]; Protocol Last Admin: 09/25/19 08:10 Dose: 5 mcg/min, 9.4 mls/hr Documented by: Pantoprazole Sodium 40 mg/ (Sodium Chloride) 110 mls @ 330 mls/hr IV Q12 [facility] Midodrine (Proamatine) 10 mg PO TID REPLACED BY [facility] Last Admin: 09/25/19 06:21 Dose: 10 mg Documented by: Multivitamins (Allbee W/C Caplet, Thera B Comp/C) 1 capsule PO DAILY REPLACED BY [facility] Nitroglycerin (Nitrostat) 0.4 mg SUBLINGUAL Q5M PRN PRN Reason: CARDIAC/CHEST PAIN Nutritional Formula (Nepro Carb Steady) 120 ml PO 4X/DAY REPLACED BY [facility] Last Admin: 09/24/19 22:00 Dose: Not Given Documented by: Nystatin (Mycostatin Powder) 1 applic TOPICAL BID REPLACED BY [facility]; Protocol Last Admin: 09/24/19 22:07 Dose: 1 applicatio Documented by: Phenylephrine HCl (Noelle-Med) 1 supp RC TID REPLACED BY [facility] Last Admin: 09/24/19 19:58 Dose: Not Given Documented by: Polyethylene Glycol (Miralax) 17 gm PO BID REPLACED BY [facility] Last Admin: 09/24/19 22:01 Dose: 17 gm Documented by: Pramipexole Dihydrochloride (Mirapex) 0.25 mg PO QHS REPLACED BY [facility] Last Admin: 09/24/19 22:01 Dose: 0.25 mg Documented by: Promethazine HCl (Phenergan Tablet) 12.5 mg PO Q12H PRN PRN PRN Reason: NAUSEA Senna/Docusate Sodium (Senokot-S, Sarah-Colace) 2 tablet PO BID REPLACED BY [facility] Last Admin: 09/24/19 22:01 Dose: 2 tablet Documented by: Sodium Chloride () 10 - 40 ml IV UD PRN PRN Reason: SALINE FLUSH Last Admin: 09/25/19 06:52 Dose: 20 ml Documented by: Assessment/Plan Active and Suspected Problems (Last Reviewed 09/24/19 @ 13:[address] Robyn Pak, DO) Fecal impaction (Acute) Hematochezia (Acute) Acute on chronic anemia (Acute) Hyperkalemia (Acute) Sick sinus syndrome (Suspected) RECOMMENDATIONS: 1. Start Levophed and titrate to maintain a systolic blood pressure of 90 mmHg. 2. Obtain plain film chest x-ray. 3. Close monitoring blood glucose levels with additional dextrose supplementation as needed. Hold Lantus. 4. Check TSH. 5. Discontinue opiate pain medications. 6. Monitor blood counts daily and transfuse if hemoglobin drops below 7 g/dL. 7. Start IV PPI therapy. 8. Proceed with ultrasound-guided paracentesis and send fluid for studies as ordered. IMPRESSIONS: 1. Shock, most likely hypovolemic in etiology The patient's presentation is quite similar to prior hospital admissions. She does have a normal resting systolic blood pressure around 90 mmHg. Although I have a low clinical index of suspicion for underlying infectious etiology, given that the patient does require scheduled, repeated paracenteses, will add empiric antimicrobials to cover for potential SBP. There are tentative plans for the patient to undergo ultrasound-guided paracentesis today. We will send fluid for cultures as well. Given that the patient has a propensity to third space fluids, I would hold off on additional supplemental IV fluids at this time. Start Levophed to maintain a a systolic pressure of 90 mmHg. 2. Encephalopathy Most likely metabolic in etiology. The patient was notably hypoglycemic this morning. However, I cannot discount the possibility that opiate pain medications are not contributing as well. Oxycodone has been discontinued. Check TSH. Monitor serial blood sugars. If the patient remains persistently hypoglycemic, she will be started on a D10 infusion. 3. End-stage renal disease on hemodialysis Continue hemodialysis per nephrology recommendations. 4. 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 P.o. medications are currently on hold. Lantus has been discontinued due to hypoglycemia. TIME: 38 minutes of critical care time, independent of procedures, was spent addressing the patient's hypovolemic shock, encephalopathy, end-stage renal disease on hemodialysis, review of all data and collaboration with the care team. ([id number]) [id number] Critical care first hour
[2019-09-25 08:51] LABS: Base Excess 6 mmol/L (-2 to +2); Bicarbonate 31.4 mmol/L (22-26); PO2 66 mmHG (75-100); SO2 92 % (95-99); Total Carbon Dioxide 33 mmol/L; pCO2 53.5 mmHg (35-45); pH 7.38 (7.35-7.45)
[2019-09-25 08:56] LABS: Blood Gas Specimen Type ART; SITE R BRACHIAL
[2019-09-25 08:57] LABS: O2 Delivery Device Nasal Can; Time Given 705
--- NOTE | 2019-09-25 08:57 | PN.RENAL_ITS ---
Patient Problems: Active and Suspected Problems (Last Reviewed 09/24/19 @ 13:[address] Robyn Pak, DO) Fecal impaction (Acute) Hematochezia (Acute) Acute on chronic anemia (Acute) Hyperkalemia (Acute) Sick sinus syndrome (Suspected) Subjective: received 2u prbc on hemodialysis yesterday. 3l fluid removal. BP inaccurate peripherally. BS low at 21 this am. Transferred to ICU. Currently on pressors. - Physical Exam Vitals/I&O's: Vital Signs Temp Pulse Resp BP Pulse Ox 98.3 F 56 L 16 61/33 L 93 09/25/19 06:10 09/25/19 06:55 09/25/19 06:10 09/25/19 08:10 09/25/19 06:10 Oxygen Flow Rate (L/min) 2 Oxygen Delivery Method Nasal Cannula Weight: 93.7 kg Body Mass Index (BMI) 34.9 Finger Stick Blood Glucose 99 Intake and Output for Last 24 Hours 09/23/19 09/24/19 09/25/19 23:59 23:59 23:59 Intake Total 1780 / 1780 Output Total 3000 / 3000 Balance -1220 / -1220 General: Lethargic, - - poor historian Lungs: Clear to auscultation Cardiovascular: Regular rate Abdomen: Bowel Sounds Present, Distended, - - tense ascites Extremities: Edema - anasarca Skin: - - ecchymosis Musculoskeletal: No Muscle Wasting, - - back pain Psych/Mental Status: - - lethargic Laboratory Results 09/24/19 10:41: Ammonia 33.0 H 09/24/19 11:15: WBC 5.5, RBC 2.50 L, Hgb 7.8 L, Hct 26.2 L, MCV 104.8 H, MCH 31.2, MCHC 29.8 L, RDW Std Deviation 70.3 H, RDW Coeff of Susan 18.8 H, Plt Count 130 L, MPV 10.0, Immature Gran % (Auto) 0.400, Neut % (Auto) 66.4, Lymph % (Auto) 21.5, [place] % (Auto) 8.4, Eos % (Auto) 2.4, Baso % (Auto) 0.9, Absolute Neuts (auto) 3.6, Absolute Lymphs (auto) 1.17, Nucleated RBC % 0, Differential Comment SCANNED, Ovalocytes 1+ 09/24/19 11:15: Sodium 135 L, Potassium 5.3 H, Chloride 99, Carbon Dioxide 30.0, Anion Gap 6, BUN 23 H, Creatinine 3.66 H, Estim Creat Clear Calc 11.77, Est GFR (MDRD) Af Amer 16 L, Est GFR (MDRD) Non-Af 13 L, BUN/Creatinine Ratio 6.3 L, Glucose 160 H, Calcium 7.7 L, Troponin I 0.017 09/24/19 11:15: Troponin I Cancelled 09/24/19 11:15: Hemoglobin A1c 6.1 09/24/19 13:25: Lactic Acid 2.2 H* 09/24/19 13:55: PT 18.2 H, INR 1.6, APTT 42.5 H 09/24/19 13:55: Blood Type Cancelled, Antibody Screen Cancelled, Crossmatch See Detail 09/24/19 14:55: Blood Type O NEGATIVE, Antibody Screen NEGATIVE, Crossmatch See Detail 09/24/19 17:47: Lactic Acid 1.3 09/24/19 18:38: POC Glucose 101 09/24/19 21:57: POC Glucose 118 H 09/25/19 06:05: WBC 6.5, RBC 3.36 L, Hgb 10.3 L, Hct 32.9 L, MCV 97.9 D, MCH 30.7, MCHC 31.3 L D, RDW Std Deviation 66.0 H, RDW Coeff of Susan 19.5 H, Plt Count 147 L, MPV 9.5, Differential Comment COMMENT 09/25/19 06:05: Glucose 21 L*, Phosphorus 3.4 09/25/19 06:05: TSH Pending 09/25/19 06:33: POC Glucose < 10 L* 09/25/19 06:49: POC Glucose 119 H 09/25/19 07:20: pH 7.38, Bicarbonate Actual 31.4 H, POC Total CO2 33, Base Excess 6 H, O2 Saturation 92 L, ABG pCO2 53.5 H, ABG pO2 66 L Current Medications Dextrose (D50w Syringe) 0 gm IV X1 PRN; Protocol PRN Reason: Hypoglycemia Last Admin: 09/25/19 06:52 Dose: 25 gm Documented by: Glucagon () 1 mg IM .X1 PRN PRN Reason: Hypoglycemia Norepinephrine Bitartrate 8 mg (/ Sodium Chloride) 250 mls @ 9.375 mls/hr CONT INF .[id number] [facility]; Protocol Last Admin: 09/25/19 08:10 Dose: 5 mcg/min, 9.4 mls/hr Documented by: Pantoprazole Sodium 40 mg/ (Sodium Chloride) 110 mls @ 330 mls/hr IV Q12 [facility] Midodrine (Proamatine) 10 mg PO TID [facility] Last Admin: 09/25/19 06:21 Dose: 10 mg Documented by: Multivitamins (Allbee W/C Caplet, Thera B Comp/C) 1 capsule PO DAILY [facility] Nitroglycerin (Nitrostat) 0.4 mg SUBLINGUAL Q5M PRN PRN Reason: CARDIAC/CHEST PAIN Nutritional Formula (Nepro Carb Steady) 120 ml PO 4X/DAY [facility] Last Admin: 09/24/19 22:00 Dose: Not Given Documented by: Nystatin (Mycostatin Powder) 1 applic TOPICAL BID [facility]; Protocol Last Admin: 09/24/19 22:07 Dose: 1 applicatio Documented by: Phenylephrine HCl (Noelle-Med) 1 supp RC TID [facility] Last Admin: 09/24/19 19:58 Dose: Not Given Documented by: Polyethylene Glycol (Miralax) 17 gm PO BID [facility] Last Admin: 09/24/19 22:01 Dose: 17 gm Documented by: Pramipexole Dihydrochloride (Mirapex) 0.25 mg PO QHS [facility] Last Admin: 09/24/19 22:01 Dose: 0.25 mg Documented by: Promethazine HCl (Phenergan Tablet) 12.5 mg PO Q12H PRN PRN PRN Reason: NAUSEA Senna/Docusate Sodium (Senokot-S, Sarah-Colace) 2 tablet PO BID [facility] Last Admin: 09/24/19 22:01 Dose: 2 tablet Documented by: Sodium Chloride () 10 - 40 ml IV UD PRN PRN Reason: SALINE FLUSH Last Admin: 09/25/19 06:52 Dose: 20 ml Documented by: Medical Necessity - Tobacco Use Smoking Status: Former smoker Tobacco Use: Non-smoker Assessment/Plan All Active Problems (Last Reviewed 09/24/19 @ 13:[address] Robyn Pak, ) Fecal impaction (Acute) Hematochezia (Acute) Acute on chronic anemia (Acute) Hyperkalemia (Acute) 1. ESRD HD MWF. Dialysis yesterday with 3L fluid removal. Remains edematous 2. Hypotension on pressors 3 GI bleed prbc2u yesterday. Hgb stable 4. DM2 hypoglycemia this am. Transferred to ICU 5. Encephalopathy chronic 6. Ascites with liver cirrhosis requiring paracentesis frequently 7. Anasarca, remove fluid on dialysis as tolerated DW nursing staff, CCM team
[2019-09-25 09:10] LABS: Bedside Glucose 78 mg/dL (70-110)
[2019-09-25 09:15] LABS: Bedside Glucose 103 mg/dL (70-110)
[2019-09-25] MEDS: TITRATION PARAMETER CHANGE 1 EACH IV (09:21)
[2019-09-25] MEDS: Nystatin Powder 15gm Bottle 1 APPLIC TOPICAL ×2 (09:23→21:50)
--- NOTE | 2019-09-25 10:01 | CASEMGMT ---
MARGO received call from Deysi with [facility]. She follows patients while in house. She confirmed patient's admitting diagnosis and SW updated her that patient went to ICU. MARGO will talk with patient's family to please encourage patient to go to a chcf at d/c as she is not managing at home. Marylou RAMIREZ MSW
[2019-09-25 10:26] LABS: Thyroid Stim Hormone (TSH) 7.78 uIU/mL (0.358-3.74)
[2019-09-25 10:57] LABS: T4 Free Direct 0.96 ng/dL (0.76-1.46)
--- NOTE | 2019-09-25 12:25 | RAD_ITS ---
STUDY: X-RAY CHEST REASON FOR EXAM: Female, 74 years old. Picc line placement TECHNIQUE: Single AP portable view of the chest. COMPARISON: Comparison is made with prior study dated September 25, 2019 at 8:10 AM. FINDINGS: A right-sided PICC line catheter has been placed. The tip is at the junction of the superior vena cava and right atrium. EKG electrodes are seen. Stable mild increased markings at the left lung base. There is no demonstrated pleural abnormality. There is moderate cardiac enlargement. Normal mediastinum and roxy. Normal visualized pulmonary arteries. There is atherosclerotic calcification of the aortic arch with tortuosity. There are degenerative changes of the visualized thoracic spine. Normal visualized ribs, clavicles, and shoulders. There is no demonstrated abnormality of the visualized soft tissue structures of the upper abdomen. RAD/Chest 1 View (Portable) IMPRESSION: The tip of the right PICC line catheter is at the junction of the superior vena cava and right atrium. Electronically Signed: Eric Mckay, at 12:38 EDT , Service support ,
[2019-09-25 12:51] LABS: Bedside Glucose 31 mg/dL (70-110)
[2019-09-25 12:52] LABS: ALB/GLOB Ratio 0.3 RATIO (0.9-2.4); AST(SGOT) 14 U/L (15-37); Alanine Aminotransfer ALT/SGPT 11 U/L (13-56); Albumin, Serum 1.4 g/dL (3.2-5.0); Alkaline Phosphatase 137 U/L (45-117); Anion Gap 6 (5-15); BUN 16 mg/dL (7-18); BUN/Creat Ratio 6.1 RATIO (10-20); Calcium,Total 7.2 mg/dL (8.5-10.1); Chloride 100 mmol/L (98-107); Creatinine, Serum 2.61 mg/dL (0.55-1.02); EST Glomerular Filtration Rate 19 mL/min (>60); Est Glom Filt Rate - Afr Amer 23 mL/min (>60); Globulin 4.4 g/dL (2.2-4.2); Glucose 43 mg/dL (74-106); Potassium 3.7 mmol/L (3.5-5.1); Protein, Total 5.8 g/dL (6.4-8.2); Sodium Level 135 mmol/L (136-145)
--- NOTE | 2019-09-25 13:03 | US_ITS ---
PROCEDURE: Ultrasound guided paracentesis. DATE OF EXAMINATION: September 25, 2019. INDICATION: Female, 74 years old. Ascites. PHYSICIAN: Eric Mckay M.D. TECHNIQUE: The risks, benefits, and alternatives to the procedure were explained to the patient. The specific risks of bleeding, infection, and damage to bowel were detailed and accepted. Witnessed informed consent was obtained. The abdomen was ultrasonographically surveyed. An appropriate pocket of fluid was identified at the right lower quadrant. The skin were cleaned and prepped in the usual sterile fashion. Using ultrasound guidance, the peritoneal cavity was accessed with a 5-Bulgarian paracentesis needle/catheter system. The trocar was removed. A total of 4770 ml of ron-colored fluid were removed from the peritoneal cavity. A sample was sent to the laboratory. The catheter was removed and a sterile dressing was applied. The procedure was well tolerated. US/Paracentesis with US IMPRESSION: Ultrasound guided paracentesis. Electronically Signed: Eric Mckay, at 15:29 EDT , Service support ,
[2019-09-25 13:05] LABS: Bedside Glucose 62 mg/dL (70-110)
[2019-09-25 13:15] LABS: Bedside Glucose 141 mg/dL (70-110)
[2019-09-25] MEDS: Dextrose 10%-Water 250 ML 20 ML IV ×2 (13:27→23:54)
[2019-09-25 14:35] LABS: Bedside Glucose 92 mg/dL (70-110)
[2019-09-25] MEDS: Lactulose 20 GM/30 ML UDC 200 GM RECTAL (15:04)
[2019-09-25 15:18] LABS: Body Fluid Mononuclear WBC # 0.079 10^3/uL; Body Fluid Mononuclear WBC % 89.8 %; Body Fluid Polynuclear WBC # 0.009 10^3/uL; Body Fluid Polynuclear WBC % 10.2 %; Body Fluid Total Cells Counted 0.111 10^3/ul; White Blood Count/Body Fluid 0.088 10^3/uL
--- NOTE | 2019-09-25 15:30 | CASEMGMT ---
Readmission chart review: Pt has had numerous ED visits and admissions since Mar 2019 between [facility] and [place]. Admissions at [facility] as follows: 2 in Mar 2019, 1 in Apr 2019, 21 May 2019, 20 July 2019 and then again on 09/05-09/12/2019 for acute metabolic encephalopathy/hypovolemic shock. Pt was set to go to SNF at discharge of this visit and precert obtained and then on day of discharge, pt decided to go home with [facility]. Pt has since been seen at [place] EDx[facility] and then returned to [facility] ED for weakness/rectal impaction, anemia on 09/24/2019. has recommended palliative in the past for pt but pt has declined. Pt has multiple co-morbidities, including chronic anemia and ascites(pt gets paracentesis every 1-2weeks). Per [facility], pt wants to 'do things her own way' and is not receptive to [facility] guidance. [facility] did make another palliative referral for pt and was working on getting hospital bed for pt prior to current admission. Pt was admitted to PCU on 09/24/2019 but then was a rapid response for hypotension and hypoglycemia on the morning of 09/25/2019, which resulted in transfer to ICU and pt is also now on 40%venti mask and is on nor-epi at this time. Dr. Simmons did speak with daughter about palliative/hospice but daughter would still like pt to be full code at this time and will discuss with rest of family. Pt GCS is currently 9 at this time. CM to follow for any further discharge planning/needs. [place] CM
[2019-09-25 15:36] LABS: Glucose, Body Fluid 108 mg/dL (40-70); LDH,Body Fluid 78 Units/l (Not Establ.)
[2019-09-25 16:05] LABS: Bedside Glucose 74 mg/dL (70-110)
[2019-09-25 16:20] LABS: Auto B Fluid Analyzer BKGD Ct COUNTS W/IN LIMITS (W/IN LIMITS); Source- Body Fluid THORACENTESIS
[2019-09-25 16:21] LABS: Appearance/Body Fluid SL CLDY; Body Fluid QC Type(s) BF1Q; Color/Body Fluid YELLOW
[2019-09-25 16:27] LABS: Red Cell Count/Body Fluid 865 /mm3
[2019-09-25 16:28] LABS: Lymphocytes 24 %; Mesothelial Cells 71 %; Neutrophil (Segs) 5 %
[2019-09-25] MEDS: Nepro Liquid 120 ML LIQUID PO (17:12)
[2019-09-25 18:25] LABS: Bedside Glucose 73 mg/dL (70-110)
[2019-09-25 21:36] LABS: Bedside Glucose 91 mg/dL (70-110)
[2019-09-25] MEDS: Lactulose 20 GM/30 ML UDC PO (21:48)
[2019-09-25] MEDS: Pramipexole Di-HCl 0.25 MG Tablet PO (21:50)
[2019-09-25] MEDS: Senna/Docusate Sodium 1 Tablet 2 TABLET PO (21:51)
[2019-09-25] MEDS: oxyCODONE 5 MG Tablet PO (21:56)
[2019-09-25 23:51] LABS: Bedside Glucose 130 mg/dL (70-110)
[2019-09-26] VITALS (25 sets, daily range): BP systolic 74–147; BP diastolic 27–106; PULSE 62–83; RESP 11–26; TEMP 36.1–37.3; O2SAT 94–100
[2019-09-26] LABS: Bedside Glucose 160 mg/dL (70-110)
[2019-09-26 02:11] LABS: Bedside Glucose 137 mg/dL (70-110)
[2019-09-26 03:59] LABS: Absolute Lymphocyte Count 1.37 X10^3/uL (0.83-4.51); Absolute Neutrophil Count 4.3 X10^3/uL (2.0-7.7); Basophil# 0.03 X10^3/uL; Basophil% 0.5 % (0-1); Eosinophil# 0.17 X10^3/uL; Eosinophils% 2.7 % (0-5); Hematocrit 32.3 % (37-47); Hemoglobin 9.8 g/dL (12.0-15.0); Lymphocyte # 1.37 X10^3/ul (4.0); Lymphocyte % 21.5 % (19-41); Mean Corp Hgb Conc 30.3 g/dL (32-36); Mean Corpuscular Hgb 30.4 pg (27.0-32.0); Mean Corpuscular Volume 100.3 fL (81-99); Mean Platelet Vol. 9.4 fl (6.2-12.0); Monocyte# 0.48 X10^3/uL; Monocyte% 7.5 % (0-10); NRBC Flagged by Analyzer 0 % (0-5); Neutrophil % 67.3 % (47-70); POSITIVE MORPHOLOGY YES; Platelet Count 149 K/mm3 (150-450); RBC Distribution Width CV 18.7 % (11.6-14.6); RBC Distribution Width SD 66.1 fl (35.1-43.9); Red Blood Count 3.22 M/mm3 (4.2-5.4); White Blood Count 6.4 K/mm3 (4.4-11.0)
[2019-09-26 04:03] LABS: Differential Indicated SCAN CRITERIA MET
[2019-09-26 04:14] LABS: ALB/GLOB Ratio 0.3 RATIO (0.9-2.4); AST(SGOT) 21 U/L (15-37); Alanine Aminotransfer ALT/SGPT 13 U/L (13-56); Albumin, Serum 1.3 g/dL (3.2-5.0); Alkaline Phosphatase 156 U/L (45-117); Anion Gap 5 (5-15); BUN 19 mg/dL (7-18); BUN/Creat Ratio 5.9 RATIO (10-20); Calcium,Total 7.5 mg/dL (8.5-10.1); Chloride 97 mmol/L (98-107); Creatinine, Serum 3.23 mg/dL (0.55-1.02); EST Glomerular Filtration Rate 15 mL/min (>60); Est Glom Filt Rate - Afr Amer 18 mL/min (>60); Estimated Creatinine Clearance 13.33 ml/min; Globulin 4.2 g/dL (2.2-4.2); Glucose 134 mg/dL (74-106); Phosphorus 4.4 mg/dL (2.5-4.9); Potassium 4.4 mmol/L (3.5-5.1); Protein, Total 5.5 g/dL (6.4-8.2); Sodium Level 132 mmol/L (136-145)
[2019-09-26 04:18] LABS: Differential Comment SCANNED
[2019-09-26 04:19] LABS: Ovalocyte RARE; Polychromasia RARE; Stomatocyte RARE; Tear Drop Cell RARE
[2019-09-26] MEDS: Midodrine HCl 5 MG Tablet 10 MG PO ×3 (05:37→21:16)
--- NOTE | 2019-09-26 06:07 | PN_ITS ---
Subjective: The patient was seen and examined at the bedside this morning. Events from the last 24 hours have been reviewed. The patient is currently afebrile, hemodynamically stable and maintaining appropriate oxygen saturations on 2 L/min via nasal cannula. Yesterday afternoon, the patient was started on a D10 infusion due to persistent hypoglycemia. Blood sugars have since stabilized. The patient was also able to be weaned from Levophed completely. She is now having regular bowel movements. The patient is much more alert this morning, repeatedly complaining of pain in her low back and buttocks. Objective: The patient's most recent lab work, culture data and imaging studies have all been personally reviewed. Ascitic fluid and blood cultures are pending. General: Alert, Cooperative HEENT: Atraumatic, Normocephalic Oral: Dry Mucosa, - - Edentulous Neck: Supple, No Nodes, Trachea Midline Lungs: No rhonchi, No wheeze, No rales, Diminished Cardiovascular: Normal S1, Normal S2, Irregular Rate Abdomen: Bowel Sounds Present, Soft, Non Tender, Obese Extremities: No clubbing, No cyanosis, Edema Skin: No breakdown Musculoskeletal: No Muscle Wasting Lymphatic: No Cervical, Supraclavicular, or Inguinal Adenopathy Neurological: Neuro grossly intact Psych/Mental Status: Anxious, Restless Vital Signs Temp Pulse Resp BP Pulse Ox 98.1 F 73 17 117/30 L 97 09/26/19 04:00 09/26/19 06:00 09/26/19 06:00 09/26/19 06:00 09/26/19 06:00 Oxygen Flow Rate (L/min) 2 Oxygen Delivery Method [2] Venturi Mask Oxygen Delivery Method [1 ( Venturi Mask Initial Baseline)] Oxygen Delivery Method Nasal Cannula Weight: 200 lb 13.458 oz Body Mass Index (BMI) 34.9 Finger Stick Blood Glucose 99 Intake and Output for Last 24 Hours 09/24/19 09/25/19 09/26/19 23:59 23:59 23:59 Intake Total 1780 / 1780 1359.14 / 1360.08 83.84 / 83.84 Output Total 3000 / 3000 4770 / 4770 Balance -1220 / -1220 -3410.86 / -3409.92 83.84 / 83.84 Labs (Last 48 Hours) 09/24/19 09/24/19 09/24/19 10:41 11:15 11:15 WBC 5.5 RBC 2.50 L Hgb 7.8 L Hct 26.2 L MCV 104.8 H MCH 31.2 MCHC 29.8 L RDW Std Deviation 70.3 H RDW Coeff of Susan 18.8 H Plt Count 130 L MPV 10.0 Immature Gran % (Auto) 0.400 Neut % (Auto) 66.4 Lymph % (Auto) 21.5 [place] % (Auto) 8.4 Eos % (Auto) 2.4 Baso % (Auto) 0.9 Absolute Neuts (auto) 3.6 Absolute Lymphs (auto) 1.17 Nucleated RBC % 0 Differential Comment SCANNED Polychromasia Tear Drop Cells Ovalocytes 1+ Stomatocytes PT INR APTT Specimen Type Sample Site pH Bicarbonate Actual POC Total CO2 Base Excess O2 Saturation ABG pCO2 ABG pO2 O2 Delivery Device Liter Flow Blood Gas Notified Whom Blood Gas Notified Time Sodium 135 L Potassium 5.3 H Chloride 99 Carbon Dioxide 30.0 Anion Gap 6 BUN 23 H Creatinine 3.66 H Estim Creat Clear Calc 11.77 Est GFR (MDRD) Af Amer 16 L Est GFR (MDRD) Non-Af 13 L BUN/Creatinine Ratio 6.3 L Glucose 160 H Hemoglobin A1c Lactic Acid Calcium 7.7 L Phosphorus Total Bilirubin AST ALT Alkaline Phosphatase Ammonia 33.0 H Troponin I 0.017 Total Protein Albumin Globulin Albumin/Globulin Ratio TSH Free T4 Fluid Source Fluid Color Fluid Appearance Fluid WBC Fluid RBC Fluid Tot Cell Count Fld Polynuclear WBCs # Fld Polynuclear WBCs % Fluid Mononuclear WBCs Fld Mononuclear WBCs % Fluid Neutrophils Fluid Lymphocytes Fld Mesothelial Cells Fl Pathologist Comment Fluid Glucose Fluid Total Protein Fluid LDH Fluid Comment 2 POC Glucose Blood Type Antibody Screen Crossmatch 09/24/19 09/24/19 09/24/19 11:15 11:15 13:25 WBC RBC Hgb Hct MCV MCH MCHC RDW Std Deviation RDW Coeff of Susan Plt Count MPV Immature Gran % (Auto) Neut % (Auto) Lymph % (Auto) [place] % (Auto) Eos % (Auto) Baso % (Auto) Absolute Neuts (auto) Absolute Lymphs (auto) Nucleated RBC % Differential Comment Polychromasia Tear Drop Cells Ovalocytes Stomatocytes PT INR APTT Specimen Type Sample Site pH Bicarbonate Actual POC Total CO2 Base Excess O2 Saturation ABG pCO2 ABG pO2 O2 Delivery Device Liter Flow Blood Gas Notified Whom Blood Gas Notified Time Sodium Potassium Chloride Carbon Dioxide Anion Gap BUN Creatinine Estim Creat Clear Calc Est GFR (MDRD) Af Amer Est GFR (MDRD) Non-Af BUN/Creatinine Ratio Glucose Hemoglobin A1c 6.1 Lactic Acid 2.2 H* Calcium Phosphorus Total Bilirubin AST ALT Alkaline Phosphatase Ammonia Troponin I Cancelled Total Protein Albumin Globulin Albumin/Globulin Ratio TSH Free T4 Fluid Source Fluid Color Fluid Appearance Fluid WBC Fluid RBC Fluid Tot Cell Count Fld Polynuclear WBCs # Fld Polynuclear WBCs % Fluid Mononuclear WBCs Fld Mononuclear WBCs % Fluid Neutrophils Fluid Lymphocytes Fld Mesothelial Cells Fl Pathologist Comment Fluid Glucose Fluid Total Protein Fluid LDH Fluid Comment 2 POC Glucose Blood Type Antibody Screen Crossmatch 09/24/19 09/24/19 09/24/19 13:55 13:55 14:55 WBC RBC Hgb Hct MCV MCH MCHC RDW Std Deviation RDW Coeff of Susan Plt Count MPV Immature Gran % (Auto) Neut % (Auto) Lymph % (Auto) [place] % (Auto) Eos % (Auto) Baso % (Auto) Absolute Neuts (auto) Absolute Lymphs (auto) Nucleated RBC % Differential Comment Polychromasia Tear Drop Cells Ovalocytes Stomatocytes PT 18.2 H INR 1.6 APTT 42.5 H Specimen Type Sample Site pH Bicarbonate Actual POC Total CO2 Base Excess O2 Saturation ABG pCO2 ABG pO2 O2 Delivery Device Liter Flow Blood Gas Notified Whom Blood Gas Notified Time Sodium Potassium Chloride Carbon Dioxide Anion Gap BUN Creatinine Estim Creat Clear Calc Est GFR (MDRD) Af Amer Est GFR (MDRD) Non-Af BUN/Creatinine Ratio Glucose Hemoglobin A1c Lactic Acid Calcium Phosphorus Total Bilirubin AST ALT Alkaline Phosphatase Ammonia Troponin I Total Protein Albumin Globulin Albumin/Globulin Ratio TSH Free T4 Fluid Source Fluid Color Fluid Appearance Fluid WBC Fluid RBC Fluid Tot Cell Count Fld Polynuclear WBCs # Fld Polynuclear WBCs % Fluid Mononuclear WBCs Fld Mononuclear WBCs % Fluid Neutrophils Fluid Lymphocytes Fld Mesothelial Cells Fl Pathologist Comment Fluid Glucose Fluid Total Protein Fluid LDH Fluid Comment 2 POC Glucose Blood Type Cancelled O NEGATIVE Antibody Screen Cancelled NEGATIVE Crossmatch See Detail See Detail 09/24/19 09/24/19 09/24/19 17:47 18:38 21:57 WBC RBC Hgb Hct MCV MCH MCHC RDW Std Deviation RDW Coeff of Susan Plt Count MPV Immature Gran % (Auto) Neut % (Auto) Lymph % (Auto) [place] % (Auto) Eos % (Auto) Baso % (Auto) Absolute Neuts (auto) Absolute Lymphs (auto) Nucleated RBC % Differential Comment Polychromasia Tear Drop Cells Ovalocytes Stomatocytes PT INR APTT Specimen Type Sample Site pH Bicarbonate Actual POC Total CO2 Base Excess O2 Saturation ABG pCO2 ABG pO2 O2 Delivery Device Liter Flow Blood Gas Notified Whom Blood Gas Notified Time Sodium Potassium Chloride Carbon Dioxide Anion Gap BUN Creatinine Estim Creat Clear Calc Est GFR (MDRD) Af Amer Est GFR (MDRD) Non-Af BUN/Creatinine Ratio Glucose Hemoglobin A1c Lactic Acid 1.3 Calcium Phosphorus Total Bilirubin AST ALT Alkaline Phosphatase Ammonia Troponin I Total Protein Albumin Globulin Albumin/Globulin Ratio TSH Free T4 Fluid Source Fluid Color Fluid Appearance Fluid WBC Fluid RBC Fluid Tot Cell Count Fld Polynuclear WBCs # Fld Polynuclear WBCs % Fluid Mononuclear WBCs Fld Mononuclear WBCs % Fluid Neutrophils Fluid Lymphocytes Fld Mesothelial Cells Fl Pathologist Comment Fluid Glucose Fluid Total Protein Fluid LDH Fluid Comment 2 POC Glucose 101 118 H Blood Type Antibody Screen Crossmatch 09/25/19 09/25/19 09/25/19 06:05 06:05 06:05 WBC 6.5 RBC 3.36 L Hgb 10.3 L Hct 32.9 L MCV 97.9 D MCH 30.7 MCHC 31.3 L D RDW Std Deviation 66.0 H RDW Coeff of Susan 19.5 H Plt Count 147 L MPV 9.5 Immature Gran % (Auto) Neut % (Auto) Lymph % (Auto) [place] % (Auto) Eos % (Auto) Baso % (Auto) Absolute Neuts (auto) Absolute Lymphs (auto) Nucleated RBC % Differential Comment COMMENT Polychromasia Tear Drop Cells Ovalocytes Stomatocytes PT INR APTT Specimen Type Sample Site pH Bicarbonate Actual POC Total CO2 Base Excess O2 Saturation ABG pCO2 ABG pO2 O2 Delivery Device Liter Flow Blood Gas Notified Whom Blood Gas Notified Time Sodium Potassium Chloride Carbon Dioxide Anion Gap BUN Creatinine Estim Creat Clear Calc Est GFR (MDRD) Af Amer Est GFR (MDRD) Non-Af BUN/Creatinine Ratio Glucose 21 L* Hemoglobin A1c Lactic Acid Calcium Phosphorus 3.4 Total Bilirubin AST ALT Alkaline Phosphatase Ammonia Troponin I Total Protein Albumin Globulin Albumin/Globulin Ratio TSH 7.78 H Free T4 Fluid Source Fluid Color Fluid Appearance Fluid WBC Fluid RBC Fluid Tot Cell Count Fld Polynuclear WBCs # Fld Polynuclear WBCs % Fluid Mononuclear WBCs Fld Mononuclear WBCs % Fluid Neutrophils Fluid Lymphocytes Fld Mesothelial Cells Fl Pathologist Comment Fluid Glucose Fluid Total Protein Fluid LDH Fluid Comment 2 POC Glucose Blood Type Antibody Screen Crossmatch 09/25/19 09/25/19 09/25/19 06:05 06:33 06:49 WBC RBC Hgb Hct MCV MCH MCHC RDW Std Deviation RDW Coeff of Susan Plt Count MPV Immature Gran % (Auto) Neut % (Auto) Lymph % (Auto) [place] % (Auto) Eos % (Auto) Baso % (Auto) Absolute Neuts (auto) Absolute Lymphs (auto) Nucleated RBC % Differential Comment Polychromasia Tear Drop Cells Ovalocytes Stomatocytes PT INR APTT Specimen Type Sample Site pH Bicarbonate Actual POC Total CO2 Base Excess O2 Saturation ABG pCO2 ABG pO2 O2 Delivery Device Liter Flow Blood Gas Notified Whom Blood Gas Notified Time Sodium Potassium Chloride Carbon Dioxide Anion Gap BUN Creatinine Estim Creat Clear Calc Est GFR (MDRD) Af Amer Est GFR (MDRD) Non-Af BUN/Creatinine Ratio Glucose Hemoglobin A1c Lactic Acid Calcium Phosphorus Total Bilirubin AST ALT Alkaline Phosphatase Ammonia Troponin I Total Protein Albumin Globulin Albumin/Globulin Ratio TSH Free T4 0.96 Fluid Source Fluid Color Fluid Appearance Fluid WBC Fluid RBC Fluid Tot Cell Count Fld Polynuclear WBCs # Fld Polynuclear WBCs % Fluid Mononuclear WBCs Fld Mononuclear WBCs % Fluid Neutrophils Fluid Lymphocytes Fld Mesothelial Cells Fl Pathologist Comment Fluid Glucose Fluid Total Protein Fluid LDH Fluid Comment 2 POC Glucose < 10 L* 119 H Blood Type Antibody Screen Crossmatch 09/25/19 09/25/19 09/25/19 07:20 08:02 09:09 WBC RBC Hgb Hct MCV MCH MCHC RDW Std Deviation RDW Coeff of Susan Plt Count MPV Immature Gran % (Auto) Neut % (Auto) Lymph % (Auto) [place] % (Auto) Eos % (Auto) Baso % (Auto) Absolute Neuts (auto) Absolute Lymphs (auto) Nucleated RBC % Differential Comment Polychromasia Tear Drop Cells Ovalocytes Stomatocytes PT INR APTT Specimen Type ART Sample Site R BRACHIAL pH 7.38 Bicarbonate Actual 31.4 H POC Total CO2 33 Base Excess 6 H O2 Saturation 92 L ABG pCO2 53.5 H ABG pO2 66 L O2 Delivery Device Nasal Can Liter Flow 2.0 Blood Gas Notified Whom ICU MD Blood Gas Notified Time 705 Sodium Potassium Chloride Carbon Dioxide Anion Gap BUN Creatinine Estim Creat Clear Calc Est GFR (MDRD) Af Amer Est GFR (MDRD) Non-Af BUN/Creatinine Ratio Glucose Hemoglobin A1c Lactic Acid Calcium Phosphorus Total Bilirubin AST ALT Alkaline Phosphatase Ammonia Troponin I Total Protein Albumin Globulin Albumin/Globulin Ratio TSH Free T4 Fluid Source Fluid Color Fluid Appearance Fluid WBC Fluid RBC Fluid Tot Cell Count Fld Polynuclear WBCs # Fld Polynuclear WBCs % Fluid Mononuclear WBCs Fld Mononuclear WBCs % Fluid Neutrophils Fluid Lymphocytes Fld Mesothelial Cells Fl Pathologist Comment Fluid Glucose Fluid Total Protein Fluid LDH Fluid Comment 2 POC Glucose 78 103 Blood Type Antibody Screen Crossmatch 09/25/19 09/25/19 09/25/19 12:05 12:05 12:16 WBC RBC Hgb Hct MCV MCH MCHC RDW Std Deviation RDW Coeff of Susan Plt Count MPV Immature Gran % (Auto) Neut % (Auto) Lymph % (Auto) [place] % (Auto) Eos % (Auto) Baso % (Auto) Absolute Neuts (auto) Absolute Lymphs (auto) Nucleated RBC % Differential Comment Polychromasia Tear Drop Cells Ovalocytes Stomatocytes PT INR APTT Specimen Type Sample Site pH Bicarbonate Actual POC Total CO2 Base Excess O2 Saturation ABG pCO2 ABG pO2 O2 Delivery Device Liter Flow Blood Gas Notified Whom Blood Gas Notified Time Sodium 135 L Potassium 3.7 Chloride 100 Carbon Dioxide 29.0 Anion Gap 6 BUN 16 Creatinine 2.61 H Estim Creat Clear Calc 16.50 Est GFR (MDRD) Af Amer 23 L Est GFR (MDRD) Non-Af 19 L BUN/Creatinine Ratio 6.1 L Glucose 43 L* Hemoglobin A1c Lactic Acid Calcium 7.2 L Phosphorus Total Bilirubin 0.40 AST 14 L ALT 11 L Alkaline Phosphatase 137 H Ammonia 47.0 H Troponin I Total Protein 5.8 L Albumin 1.4 L Globulin 4.4 H Albumin/Globulin Ratio 0.3 L TSH Free T4 Fluid Source Fluid Color Fluid Appearance Fluid WBC Fluid RBC Fluid Tot Cell Count Fld Polynuclear WBCs # Fld Polynuclear WBCs % Fluid Mononuclear WBCs Fld Mononuclear WBCs % Fluid Neutrophils Fluid Lymphocytes Fld Mesothelial Cells Fl Pathologist Comment Fluid Glucose Fluid Total Protein Fluid LDH Fluid Comment 2 POC Glucose 31 L* Blood Type Antibody Screen Crossmatch 09/25/19 09/25/19 09/25/19 12:47 13:09 14:00 WBC RBC Hgb Hct MCV MCH MCHC RDW Std Deviation RDW Coeff of Susan Plt Count MPV Immature Gran % (Auto) Neut % (Auto) Lymph % (Auto) [place] % (Auto) Eos % (Auto) Baso % (Auto) Absolute Neuts (auto) Absolute Lymphs (auto) Nucleated RBC % Differential Comment Polychromasia Tear Drop Cells Ovalocytes Stomatocytes PT INR APTT Specimen Type Sample Site pH Bicarbonate Actual POC Total CO2 Base Excess O2 Saturation ABG pCO2 ABG pO2 O2 Delivery Device Liter Flow Blood Gas Notified Whom Blood Gas Notified Time Sodium Potassium Chloride Carbon Dioxide Anion Gap BUN Creatinine Estim Creat Clear Calc Est GFR (MDRD) Af Amer Est GFR (MDRD) Non-Af BUN/Creatinine Ratio Glucose Hemoglobin A1c Lactic Acid Calcium Phosphorus Total Bilirubin AST ALT Alkaline Phosphatase Ammonia Troponin I Total Protein Albumin Globulin Albumin/Globulin Ratio TSH Free T4 Fluid Source Fluid Color Fluid Appearance Fluid WBC Fluid RBC Fluid Tot Cell Count Fld Polynuclear WBCs # Fld Polynuclear WBCs % Fluid Mononuclear WBCs Fld Mononuclear WBCs % Fluid Neutrophils Fluid Lymphocytes Fld Mesothelial Cells Fl Pathologist Comment Fluid Glucose 108 H Fluid Total Protein 3.0 Fluid LDH 78 Fluid Comment 2 POC Glucose 62 L 141 H Blood Type Antibody Screen Crossmatch 09/25/19 09/25/19 09/25/19 14:00 14:29 16:03 WBC RBC Hgb Hct MCV MCH MCHC RDW Std Deviation RDW Coeff of Susan Plt Count MPV Immature Gran % (Auto) Neut % (Auto) Lymph % (Auto) [place] % (Auto) Eos % (Auto) Baso % (Auto) Absolute Neuts (auto) Absolute Lymphs (auto) Nucleated RBC % Differential Comment Polychromasia Tear Drop Cells Ovalocytes Stomatocytes PT INR APTT Specimen Type Sample Site pH Bicarbonate Actual POC Total CO2 Base Excess O2 Saturation ABG pCO2 ABG pO2 O2 Delivery Device Liter Flow Blood Gas Notified Whom Blood Gas Notified Time Sodium Potassium Chloride Carbon Dioxide Anion Gap BUN Creatinine Estim Creat Clear Calc Est GFR (MDRD) Af Amer Est GFR (MDRD) Non-Af BUN/Creatinine Ratio Glucose Hemoglobin A1c Lactic Acid Calcium Phosphorus Total Bilirubin AST ALT Alkaline Phosphatase Ammonia Troponin I Total Protein Albumin Globulin Albumin/Globulin Ratio TSH Free T4 Fluid Source THORACENTESIS Fluid Color YELLOW Fluid Appearance SL CLDY Fluid WBC 0.088 Fluid RBC 865 Fluid Tot Cell Count 0.111 H Fld Polynuclear WBCs # 0.009 Fld Polynuclear WBCs % 10.2 Fluid Mononuclear WBCs 0.079 Fld Mononuclear WBCs % 89.8 Fluid Neutrophils 5 Fluid Lymphocytes 24 Fld Mesothelial Cells 71 Fl Pathologist Comment May follow Fluid Glucose Fluid Total Protein Fluid LDH Fluid Comment 2 SEE COMMENT POC Glucose 92 74 Blood Type Antibody Screen Crossmatch 09/25/19 09/25/19 09/25/19 18:10 20:18 21:39 WBC RBC Hgb Hct MCV MCH MCHC RDW Std Deviation RDW Coeff of Susan Plt Count MPV Immature Gran % (Auto) Neut % (Auto) Lymph % (Auto) [place] % (Auto) Eos % (Auto) Baso % (Auto) Absolute Neuts (auto) Absolute Lymphs (auto) Nucleated RBC % Differential Comment Polychromasia Tear Drop Cells Ovalocytes Stomatocytes PT INR APTT Specimen Type Sample Site pH Bicarbonate Actual POC Total CO2 Base Excess O2 Saturation ABG pCO2 ABG pO2 O2 Delivery Device Liter Flow Blood Gas Notified Whom Blood Gas Notified Time Sodium Potassium Chloride Carbon Dioxide Anion Gap BUN Creatinine Estim Creat Clear Calc Est GFR (MDRD) Af Amer Est GFR (MDRD) Non-Af BUN/Creatinine Ratio Glucose Hemoglobin A1c Lactic Acid Calcium Phosphorus Total Bilirubin AST ALT Alkaline Phosphatase Ammonia Troponin I Total Protein Albumin Globulin Albumin/Globulin Ratio TSH Free T4 Fluid Source Fluid Color Fluid Appearance Fluid WBC Fluid RBC Fluid Tot Cell Count Fld Polynuclear WBCs # Fld Polynuclear WBCs % Fluid Mononuclear WBCs Fld Mononuclear WBCs % Fluid Neutrophils Fluid Lymphocytes Fld Mesothelial Cells Fl Pathologist Comment Fluid Glucose Fluid Total Protein Fluid LDH Fluid Comment 2 POC Glucose 73 91 130 H Blood Type Antibody Screen Crossmatch 09/25/19 09/26/19 09/26/19 23:52 02:05 03:50 WBC 6.4 RBC 3.22 L Hgb 9.8 L Hct 32.3 L MCV 100.3 H MCH 30.4 MCHC 30.3 L RDW Std Deviation 66.1 H RDW Coeff of Susan 18.7 H Plt Count 149 L MPV 9.4 Immature Gran % (Auto) 0.500 Neut % (Auto) 67.3 Lymph % (Auto) 21.5 [place] % (Auto) 7.5 Eos % (Auto) 2.7 Baso % (Auto) 0.5 Absolute Neuts (auto) 4.3 Absolute Lymphs (auto) 1.37 Nucleated RBC % 0 Differential Comment SCANNED Polychromasia RARE Tear Drop Cells RARE Ovalocytes RARE Stomatocytes RARE PT INR APTT Specimen Type Sample Site pH Bicarbonate Actual POC Total CO2 Base Excess O2 Saturation ABG pCO2 ABG pO2 O2 Delivery Device Liter Flow Blood Gas Notified Whom Blood Gas Notified Time Sodium Potassium Chloride Carbon Dioxide Anion Gap BUN Creatinine Estim Creat Clear Calc Est GFR (MDRD) Af Amer Est GFR (MDRD) Non-Af BUN/Creatinine Ratio Glucose Hemoglobin A1c Lactic Acid Calcium Phosphorus Total Bilirubin AST ALT Alkaline Phosphatase Ammonia Troponin I Total Protein Albumin Globulin Albumin/Globulin Ratio TSH Free T4 Fluid Source Fluid Color Fluid Appearance Fluid WBC Fluid RBC Fluid Tot Cell Count Fld Polynuclear WBCs # Fld Polynuclear WBCs % Fluid Mononuclear WBCs Fld Mononuclear WBCs % Fluid Neutrophils Fluid Lymphocytes Fld Mesothelial Cells Fl Pathologist Comment Fluid Glucose Fluid Total Protein Fluid LDH Fluid Comment 2 POC Glucose 160 H 137 H Blood Type Antibody Screen Crossmatch 09/26/19 03:50 WBC RBC Hgb Hct MCV MCH MCHC RDW Std Deviation RDW Coeff of Susan Plt Count MPV Immature Gran % (Auto) Neut % (Auto) Lymph % (Auto) [place] % (Auto) Eos % (Auto) Baso % (Auto) Absolute Neuts (auto) Absolute Lymphs (auto) Nucleated RBC % Differential Comment Polychromasia Tear Drop Cells Ovalocytes Stomatocytes PT INR APTT Specimen Type Sample Site pH Bicarbonate Actual POC Total CO2 Base Excess O2 Saturation ABG pCO2 ABG pO2 O2 Delivery Device Liter Flow Blood Gas Notified Whom Blood Gas Notified Time Sodium 132 L Potassium 4.4 Chloride 97 L Carbon Dioxide 30.0 Anion Gap 5 BUN 19 H Creatinine 3.23 H Estim Creat Clear Calc 13.33 Est GFR (MDRD) Af Amer 18 L Est GFR (MDRD) Non-Af 15 L BUN/Creatinine Ratio 5.9 L Glucose 134 H Hemoglobin A1c Lactic Acid Calcium 7.5 L Phosphorus 4.4 Total Bilirubin 0.40 AST 21 ALT 13 Alkaline Phosphatase 156 H Ammonia Troponin I Total Protein 5.5 L Albumin 1.3 L Globulin 4.2 Albumin/Globulin Ratio 0.3 L TSH Free T4 Fluid Source Fluid Color Fluid Appearance Fluid WBC Fluid RBC Fluid Tot Cell Count Fld Polynuclear WBCs # Fld Polynuclear WBCs % Fluid Mononuclear WBCs Fld Mononuclear WBCs % Fluid Neutrophils Fluid Lymphocytes Fld Mesothelial Cells Fl Pathologist Comment Fluid Glucose Fluid Total Protein Fluid LDH Fluid Comment 2 POC Glucose Blood Type Antibody Screen Crossmatch Clinical Impression(s) from Imaging Studies Acute Abdomen Series 09/24/19 10:14 IMPRESSION: Chest demonstrates cardiomegaly. Severe diffuse atherosclerosis. Nonspecific bowel gas pattern. No evidence for free air. Electronically Signed: Luis Sawant, at 13:01 EDT Tel , Service support , Chest X-Ray 09/25/19 08:02 IMPRESSION: No active disease. Electronically Signed: Diogo Pearl MD at 8:32 EDT Tel , Service support , Chest X-Ray 09/25/19 12:25 IMPRESSION: The tip of the right PICC line catheter is at the junction of the superior vena cava and right atrium. Electronically Signed: Eric Mckay, at 12:38 EDT , Service support , Paracentesis Ultrasound 09/25/19 13:03 IMPRESSION: Ultrasound guided paracentesis. Electronically Signed: Eric Mckay, at 15:29 EDT , Service support , Medical Necessity - Tobacco Use Smoking Status: Former smoker Tobacco Use: Non-smoker Assessment/Plan All Active Problems (Last Reviewed 09/24/19 @ 13:[address] Robyn Pak, DO) Fecal impaction (Acute) Hematochezia (Acute) Acute on chronic anemia (Acute) Hyperkalemia (Acute) RECOMMENDATIONS: 1. Okay to discontinue D10 infusion. 2. Resume home pain medication regimen. 3. Resume PO Midodrine per home regimen. 4. Continue to monitor blood counts daily and transfuse if hemoglobin drops below 7 g/dL. 5. Continue PPI therapy. 6. Plans for routine dialysis today. IMPRESSIONS: 1. Shock, most likely hypovolemic in etiology Resolved. The patient's presentation is quite similar to prior hospital admissions. She does have a normal resting systolic blood pressure around 90 mmHg. Although I have a low clinical index of suspicion for underlying infectious etiology, given that the patient does require scheduled, repeated paracenteses, antibiotics were started to cover for potential SBP. At this time, the patient has been weaned from vasopressor support. She is hemodynamically stable. Given improved mentation, plan to resume PO Midodrine per home regimen. 2. Encephalopathy Resolved. Most likely metabolic in etiology and related to persistent hyp oglycemia. The patient is on long-acting insulin as an outpatient. She did respond to dextrose infusion with stabilization of blood sugars. The D10 infusion will be discontinued this morning. Thyroid function is within normal limits. Plan to advance diet. Resume home pain medication regimen. 3. End-stage renal disease on hemodialysis Continue hemodialysis per nephrology recommendations. 4. 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 Continue home medications as indicated. This note was generated with [employer] software. It may contain incorrect words, spelling, and punctuation that were not noted in checking the note before signing. Inpatient E&M: 145[address] [facility] L3
[2019-09-26 06:26] LABS: Bedside Glucose 100 mg/dL (70-110)
[2019-09-26] MEDS: oxyCODONE 5 MG Tablet 10 MG PO ×3 (07:45→21:14)
[2019-09-26] MEDS: Nystatin Powder 15gm Bottle 1 APPLIC TOPICAL ×2 (07:46→21:15)
[2019-09-26] MEDS: Vitamin B Comp W-C Capsule 1 CAP PO (07:46)
--- NOTE | 2019-09-26 07:55 | PN_ITS ---
Patient Problems: Active and Suspected Problems (Last Reviewed 09/24/19 @ 13:[address] Robyn Pak, DO) Fecal impaction (Acute) Hematochezia (Acute) Acute on chronic anemia (Acute) Hyperkalemia (Acute) Sick sinus syndrome (Suspected) Reason for Visit: Follow-up on: fecal impaction/acute on chronic constipation/acute on chronic anemia/hypoglycemia Subjective: Patient was seen and examined. She is much awake. She complains of pain in her back. Her pain regimen has been resumed. She was seen on dialysis. Objective: General: Alert, oriented x 3, appears comfortable, pale, not jaundiced, seen on dialysis HEENT: Atraumatic, PERRLA, EOMI, Normocephalic Oral: Moist Mucosa Neck: Supple Lungs: Clear to auscultation, Normal air movement Cardiovascular: Regular rate, Regular Rhythm, Normal S1, Normal S2 Abdomen: Bowel Sounds Present, Soft, Non Tender, Distended, Obese, - - Ascites ++, abdominal wall edema Extremities: Edema - +2, generalized, worse in the thighs and back Skin: No rashes Musculoskeletal: No Tenderness to Palpation of Joints or Extremities Lymphatic: No Cervical, Supraclavicular, or Inguinal Adenopathy Neurological: - - Lethargic, unable to fully assess Psych/Mental Status: Normal Affect, Appropriate Vitals/I&O's: Vital Signs Temp Pulse Resp BP Pulse Ox 98.1 F 69 14 129/60 H 98 09/26/19 04:00 09/26/19 07:15 09/26/19 07:00 09/26/19 07:04 09/26/19 07:00 Oxygen Flow Rate (L/min) 2 Oxygen Delivery Method [2] Venturi Mask Oxygen Delivery Method [1 ( Venturi Mask Initial Baseline)] Oxygen Delivery Method Nasal Cannula Weight: 91.1 kg Body Mass Index (BMI) 34.9 Finger Stick Blood Glucose 99 Intake and Output for Last 24 Hours 09/24/19 09/25/19 09/26/19 23:59 23:59 23:59 Intake Total 1780 / 1780 1359.14 / 1360.08 226.84 / 226.84 Output Total 3000 / 3000 4770 / 4770 300 / 300 Balance -1220 / -1220 -3410.86 / -3409.92 -73.16 / -73.16 Laboratory Results 09/25/19 06:05: TSH 7.78 H 09/25/19 06:05: Free T4 0.96 09/25/19 07:20: Specimen Type ART, Sample Site R BRACHIAL, pH 7.38, Bicarbonate Actual 31.4 H, POC Total CO2 33, Base Excess 6 H, O2 Saturation 92 L, ABG pCO2 53.5 H, ABG pO2 66 L, O2 Delivery Device Nasal Can, Liter Flow 2.0, Blood Gas Notified Whom ICU MD, Blood Gas Notified Time 705 09/25/19 08:02: POC Glucose 78 09/25/19 09:09: POC Glucose 103 09/25/19 12:05: Sodium 135 L, Potassium 3.7, Chloride 100, Carbon Dioxide 29.0, Anion Gap 6, BUN 16, Creatinine 2.61 H, Estim Creat Clear Calc 16.50, Est GFR (MDRD) Af Amer 23 L, Est GFR (MDRD) Non-Af 19 L, BUN/Creatinine Ratio 6.1 L, Glucose 43 L*, Calcium 7.2 L, Total Bilirubin 0.40, AST 14 L, ALT 11 L, Alkaline Phosphatase 137 H, Total Protein 5.8 L, Albumin 1.4 L, Globulin 4.4 H, Albumin/Globulin Ratio 0.3 L 09/25/19 12:05: Ammonia 47.0 H 09/25/19 12:16: POC Glucose 31 L* 09/25/19 12:47: POC Glucose 62 L 09/25/19 13:09: POC Glucose 141 H 09/25/19 14:00: Fluid Glucose 108 H, Fluid Total Protein 3.0, Fluid LDH 78 09/25/19 14:00: Fluid Source THORACENTESIS, Fluid Color YELLOW, Fluid Appearance SL CLDY, Fluid WBC 0.088, Fluid RBC 865, Fluid Tot Cell Count 0.111 H, Fld Polynuclear WBCs # 0.009, Fld Polynuclear WBCs % 10.2, Fluid Mononuclear WBCs 0.079, Fld Mononuclear WBCs % 89.8, Fluid Neutrophils 5, Fluid Lymphocytes 24, Fld Mesothelial Cells 71, Fl Pathologist Comment May follow, Fluid Comment 2 SEE COMMENT 09/25/19 14:29: POC Glucose 92 09/25/19 16:03: POC Glucose 74 09/25/19 18:10: POC Glucose 73 09/25/19 20:18: POC Glucose 91 09/25/19 21:39: POC Glucose 130 H 09/25/19 23:52: POC Glucose 160 H 09/26/19 02:05: POC Glucose 137 H 09/26/19 03:50: WBC 6.4, RBC 3.22 L, Hgb 9.8 L, Hct 32.3 L, MCV 100.3 H, MCH 30.4, MCHC 30.3 L, RDW Std Deviation 66.1 H, RDW Coeff of Susan 18.7 H, Plt Count 149 L, MPV 9.4, Immature Gran % (Auto) 0.500, Neut % (Auto) 67.3, Lymph % (Auto) 21.5, [place] % (Auto) 7.5, Eos % (Auto) 2.7, Baso % (Auto) 0.5, Absolute Neuts (auto) 4.3, Absolute Lymphs (auto) 1.37, Nucleated RBC % 0, Differential Comment SCANNED, Polychromasia RARE, Tear Drop Cells RARE, Ovalocytes RARE, Stomatocytes RARE 09/26/19 03:50: Sodium 132 L, Potassium 4.4, Chloride 97 L, Carbon Dioxide 30.0, Anion Gap 5, BUN 19 H, Creatinine 3.23 H, Estim Creat Clear Calc 13.33, Est GFR (MDRD) Af Amer 18 L, Est GFR (MDRD) Non-Af 15 L, BUN/Creatinine Ratio 5.9 L, Glucose 134 H, Calcium 7.5 L, Phosphorus 4.4, Total Bilirubin 0.40, AST 21, ALT 13, Alkaline Phosphatase 156 H, Total Protein 5.5 L, Albumin 1.3 L, Globulin 4.2, Albumin/Globulin Ratio 0.3 L 09/26/19 06:21: POC Glucose 100 Current Medications Dextrose (D50w Syringe) 0 gm IV X1 PRN; Protocol PRN Reason: Hypoglycemia Last Admin: 09/25/19 12:52 Dose: 25 gm Documented by: Glucagon () 1 mg IM .X1 PRN PRN Reason: Hypoglycemia Pantoprazole Sodium 40 mg/ (Sodium Chloride) 110 mls @ 330 mls/hr IV Q12 [facility] Last Infusion: 09/25/19 22:22 Dose: Infused Documented by: Piperacillin Sod/Tazobactam (Sod 3.375 gm/ Sodium Chloride) 50 mls @ 12.5 mls/hr IV Q12 [facility] Last Infusion: 09/26/19 02:27 Dose: Infused Documented by: Insulin Human Lispro (Humalog Kwikpen (Bkc)) 0 unit SC ACHS [facility]; Protocol Lactulose (Chronulac, Cephulac) 20 gm PO TID [facility] Last Admin: 09/26/19 05:24 Dose: Not Given Documented by: Midodrine (Proamatine) 10 mg PO TID [facility] Last Admin: 09/26/19 05:37 Dose: 10 mg Documented by: Multivitamins (Allbee W/C Caplet, Thera B Comp/C) 1 capsule PO DAILY [facility] Last Admin: 09/26/19 07:46 Dose: 1 capsule Documented by: Nitroglycerin (Nitrostat) 0.4 mg SUBLINGUAL Q5M PRN PRN Reason: CARDIAC/CHEST PAIN Nutritional Formula (Nepro Carb Steady) 120 ml PO 4X/DAY [facility] Last Admin: 09/25/19 21:52 Dose: Not Given Documented by: Nystatin (Mycostatin Powder) 1 applic TOPICAL BID [facility]; Protocol Last Admin: 09/26/19 07:46 Dose: 1 applicatio Documented by: Oxycodone HCl (Oxyir) 10 mg PO Q6H PRN PRN PRN Reason: Pain Score 6-10/10 Last Admin: 09/26/19 07:45 Dose: 10 mg Documented by: Phenylephrine HCl (Noelle-Med) 1 supp RC TID [facility] Last Admin: 09/26/19 05:24 Dose: Not Given Documented by: Polyethylene Glycol (Miralax) 17 gm PO BID [facility] Last Admin: 09/26/19 07:46 Dose: Not Given Documented by: Pramipexole Dihydrochloride (Mirapex) 0.25 mg PO QHS [facility] Last Admin: 09/25/19 21:50 Dose: 0.25 mg Documented by: Promethazine HCl (Phenergan Tablet) 12.5 mg PO Q12H PRN PRN PRN Reason: NAUSEA Senna/Docusate Sodium (Senokot-S, Sarah-Colace) 2 tablet PO BID [facility] Last Admin: 09/26/19 07:46 Dose: Not Given Documented by: Sodium Chloride () 10 - 40 ml IV UD PRN PRN Reason: SALINE FLUSH Last Admin: 09/25/19 12:26 Dose: 20 ml Documented by: STROKE Vital Signs/Narrative: Vital Signs Temp Pulse Resp BP BP Pulse Ox 09/26/19 07:15 69 09/26/19 07:04 129/60 H 09/26/19 07:00 71 14 129/60 H 98 09/26/19 06:00 73 17 117/30 L 97 09/26/19 05:00 63 26 H 74/64 L 99 09/26/19 04:15 110/27 L 09/26/19 04:00 98.1 F 72 121/50 H Medical Necessity - Tobacco Use Smoking Status: Former smoker Tobacco Use: Non-smoker Assessment/Plan All Active Problems (Last Reviewed 09/24/19 @ 13:[address] Robyn Pak, DO) Fecal impaction (Acute) Hematochezia (Acute) Acute on chronic anemia (Acute) Hyperkalemia (Acute) 1. Hypoglycemia, resolved HgBA1c 6.1 in a patient with multiple comorbidities including ESRD Will continue to hold long-acting insulin and any other insulins Continue with Accu-Cheks every 6h Will not recommend discharge on insulin as HgbA1c is at goal for age and co- morbidities 2. Hypotension, history of hypertension, on Midodrine, improved, off pressors 3. Acute on chronic anemia secondary to acute blood loss secondary to hematochezia/suspected hemorrhoids/diverticulosis Status post 2 units of packed RBCs, repeat Hb 9.8. 4. Constipation, acute on chronic, status post treatment yesterday, resolved No hematochezia seen 5. ESRD on hemodialysis, Sunday?Sunday?Sunday, dialysis today 6. Acute on chronic hepatic encephalopathy, h/o cirrhosis of the liver with ascites, resolved Status post paracentesis yesterday, 4770mls of ascitic fluid removed Patient is wide-awake, will continue on lactulose po 7. Rest of chronic medical conditions including chronic atrial fibrillation with suspected sick sinus syndrome/hypothyroidism/chronic pain syndrome - remained stable for now. Patient's chronic pain medicines are on hold. Would anticipate some opioid withdrawal from patient's mentation improves, and will be monitoring. 8. CODE STATUS: Full code -patient is a candidate for palliative care/hospice - discussed again today. Patient would like to think about it and discuss with her family Inpatient E&M: [id number] Subs Hosp L3
[2019-09-26] MEDS: Nepro Liquid 120 ML LIQUID PO ×2 (10:27→21:24)
[2019-09-26 10:38] LABS: Pathologist Comment/Body Fluid Reviewed
[2019-09-26 11:16] LABS: Bedside Glucose 115 mg/dL (70-110)
--- NOTE | 2019-09-26 11:21 | CASEMGMT ---
Social Work Social Work met with pt in her room and introduced self to pt. Pt is known to this SW from previous visit and pt acknowledges remembering SW from previous visit and Pt able to recount return home on last visit and confirms that she returned home to her sister Eva's home and that her daughters Rosmery, Jackeline and Flor came daily and assisted pt and stayed overnight to assist and brought food to pt. Pt states that she was able to get in and out of the house and up and down the four stairs to go to dialysis without problem. Pt states that she got a new lift chair and a hospital bed was delivered to her home yesterday. Pt stating that she plans to return home at time of discharge with continued care of her family. SW broached the topic or returning to [facility] in the past as her medical condition can be monitored more closely and she can receive therapy and the care she required. Pt denies at this time stating she is getting along well at home. SW discussed with pt multiple ER visits since she has been home and pt continues to state she will return home at discharge. SW discussed Palliative Care with pt and pt is agreeable to this program and to see Palliative to sign papers when she returns home. Discussed HCPOA with pt. Pt stating she wants her daugther Jackeline to have access to her finances. SW explained the differences between Financial and Health Care POA and why she would want a HCPOA. PT states she would like to talk to Jackeline about this before she completes documents. SW explained to pt that SW would be following and will revisit discharge plan once pt is able to see therapy. FELIPA Spivey
--- NOTE | 2019-09-26 12:07 | DIALYSIS ---
HD x 3.5 hours complete. Tolerated tx well. Ran on 2k bath. UF of 3500ml. Used left arm fistula. [place] removed post tx and pressure applied x 10 minutes. Hemostasis achieved. Fresh gauze and tape applied. Report was given to EDIN Cates.
--- NOTE | 2019-09-26 13:56 | CASEMGMT ---
Social Work With pt permission phone call to Palliative medicine. MARGO spoke with Minda who states pt has already signed up for the program but has not yet been seen. When pt discharges from the hospital discharge instructions are to be faxed and [facility] and they will follow up with pt. FELIPA Spivey
[2019-09-26 18:26] LABS: Bedside Glucose 165 mg/dL (70-110)
[2019-09-26] MEDS: Hydrocortisone 2.5% Crm 1 APPLIC RECTAL (21:02)
[2019-09-26] MEDS: Senna/Docusate Sodium 1 Tablet 2 TABLET PO (21:14)
[2019-09-26] MEDS: Pramipexole Di-HCl 0.25 MG Tablet PO (21:15)
[2019-09-26] MEDS: Polyethylene Glycol 3350 17 GM PACKET PO (21:17)
[2019-09-26 23:15] LABS: Bedside Glucose 135 mg/dL (70-110)
[2019-09-27] VITALS (10 sets, daily range): BP systolic 97–125; BP diastolic 48–62; PULSE 65–80; RESP 20; TEMP 36.6–36.8; O2SAT 92–97
--- NOTE | 2019-09-27 03:22 | NURSING ---
0250 Told patient I would bring pain medicine back when it is available at 0315. When I came back at 0320, patient was sleeping. This RN did not wake patient. This is the first time patient has been asleep tonight.
[2019-09-27] MEDS: Midodrine HCl 5 MG Tablet 10 MG PO ×2 (05:20→14:45)
[2019-09-27] MEDS: oxyCODONE 5 MG Tablet 10 MG PO ×2 (05:20→13:09)
[2019-09-27] MEDS: Hydrocortisone 2.5% Crm 1 APPLIC RECTAL ×2 (05:22→13:00)
[2019-09-27 05:31] LABS: Bedside Glucose 108 mg/dL (70-110)
[2019-09-27] MEDS: 0.9% Saline Lock 10 ML Syringe IV (06:46)
[2019-09-27 07:06] LABS: Bedside Glucose 121 mg/dL (70-110)
--- NOTE | 2019-09-27 07:17 | PN_ITS ---
Patient Problems: Active and Suspected Problems (Last Reviewed 09/24/19 @ 13:[address] Robyn Pak DO) Fecal impaction (Acute) Hematochezia (Acute) Acute on chronic anemia (Acute) Hyperkalemia (Acute) Sick sinus syndrome (Suspected) Subjective: The patient was seen and examined at the bedside this morning. Events from the last 24 hours have been reviewed. The patient is currently afebrile, hemodynamically stable and maintaining appropriate oxygen saturations on room air. The patient has done well clinically following transfer out of the medical intensive care unit. The patient tolerated dialysis yesterday with 3.5 L of fluid removed. Objective: The patient's most recent lab work, culture data and imaging studies have all been personally reviewed. Infectious work-up has been unrevealing to date. - Physical Exam Vitals/I&O's: Vital Signs Temp Pulse Resp BP Pulse Ox 98.2 F 65 20 H 125/62 H 94 09/27/19 02:42 09/27/19 04:00 09/27/19 02:42 09/27/19 02:42 09/27/19 02:42 Oxygen Flow Rate (L/min) 2 Oxygen Delivery Method [2] Venturi Mask Oxygen Delivery Method [1 ( Venturi Mask Initial Baseline)] Oxygen Delivery Method Room Air Weight: 192 lb 10.944 oz Body Mass Index (BMI) 34.9 Finger Stick Blood Glucose 99 Intake and Output for Last 24 Hours 09/25/19 09/26/19 09/27/19 23:59 23:59 23:59 Intake Total 1359.14 / 1360.08 956.84 / 1156.84 300 / 300 Output Total 4770 / 4770 300 / 300 Balance -3410.86 / -3409.92 656.84 / 856.84 300 / 300 General: Alert, Cooperative HEENT: Atraumatic, Normocephalic Oral: Moist Mucosa Neck: Supple, No Nodes, Trachea Midline Lungs: No rhonchi, No wheeze, No rales, Diminished Cardiovascular: Normal S1, Normal S2, Irregular Rate Abdomen: Bowel Sounds Present, Soft, Non Tender, Distended, Obese Extremities: No clubbing, No cyanosis, Edema Skin: - - No significant change from previous Musculoskeletal: No Muscle Wasting Lymphatic: No Cervical, Supraclavicular, or Inguinal Adenopathy Neurological: Neuro grossly intact Labs (Last 48 Hours) 09/25/19 09/25/19 09/25/19 06:05 06:05 06:05 WBC RBC Hgb Hct MCV MCH MCHC RDW Std Deviation RDW Coeff of Susan Plt Count MPV Immature Gran % (Auto) Neut % (Auto) Lymph % (Auto) Webster % (Auto) Eos % (Auto) Baso % (Auto) Absolute Neuts (auto) Absolute Lymphs (auto) Nucleated RBC % Differential Comment COMMENT Polychromasia Tear Drop Cells Ovalocytes Stomatocytes Specimen Type Sample Site pH Bicarbonate Actual POC Total CO2 Base Excess O2 Saturation ABG pCO2 ABG pO2 O2 Delivery Device Liter Flow Blood Gas Notified Whom Blood Gas Notified Time Sodium Potassium Chloride Carbon Dioxide Anion Gap BUN Creatinine Estim Creat Clear Calc Est GFR (MDRD) Af Amer Est GFR (MDRD) Non-Af BUN/Creatinine Ratio Glucose Calcium Phosphorus Total Bilirubin AST ALT Alkaline Phosphatase Ammonia Total Protein Albumin Globulin Albumin/Globulin Ratio TSH 7.78 H Free T4 0.96 Fluid Source Fluid Color Fluid Appearance Fluid WBC Fluid RBC Fluid Tot Cell Count Fld Polynuclear WBCs # Fld Polynuclear WBCs % Fluid Mononuclear WBCs Fld Mononuclear WBCs % Fluid Neutrophils Fluid Lymphocytes Fld Mesothelial Cells Fl Pathologist Comment Fluid Glucose Fluid Total Protein Fluid LDH Fluid Comment 2 POC Glucose 09/25/19 09/25/19 09/25/19 07:20 08:02 09:09 WBC RBC Hgb Hct MCV MCH MCHC RDW Std Deviation RDW Coeff of Susan Plt Count MPV Immature Gran % (Auto) Neut % (Auto) Lymph % (Auto) Webster % (Auto) Eos % (Auto) Baso % (Auto) Absolute Neuts (auto) Absolute Lymphs (auto) Nucleated RBC % Differential Comment Polychromasia Tear Drop Cells Ovalocytes Stomatocytes Specimen Type ART Sample Site R BRACHIAL pH 7.38 Bicarbonate Actual 31.4 H POC Total CO2 33 Base Excess 6 H O2 Saturation 92 L ABG pCO2 53.5 H ABG pO2 66 L O2 Delivery Device Nasal Can Liter Flow 2.0 Blood Gas Notified Whom ICU MD Blood Gas Notified Time 705 Sodium Potassium Chloride Carbon Dioxide Anion Gap BUN Creatinine Estim Creat Clear Calc Est GFR (MDRD) Af Amer Est GFR (MDRD) Non-Af BUN/Creatinine Ratio Glucose Calcium Phosphorus Total Bilirubin AST ALT Alkaline Phosphatase Ammonia Total Protein Albumin Globulin Albumin/Globulin Ratio TSH Free T4 Fluid Source Fluid Color Fluid Appearance Fluid WBC Fluid RBC Fluid Tot Cell Count Fld Polynuclear WBCs # Fld Polynuclear WBCs % Fluid Mononuclear WBCs Fld Mononuclear WBCs % Fluid Neutrophils Fluid Lymphocytes Fld Mesothelial Cells Fl Pathologist Comment Fluid Glucose Fluid Total Protein Fluid LDH Fluid Comment 2 POC Glucose 78 103 09/25/19 09/25/19 09/25/19 12:05 12:05 12:16 WBC RBC Hgb Hct MCV MCH MCHC RDW Std Deviation RDW Coeff of Susan Plt Count MPV Immature Gran % (Auto) Neut % (Auto) Lymph % (Auto) Webster % (Auto) Eos % (Auto) Baso % (Auto) Absolute Neuts (auto) Absolute Lymphs (auto) Nucleated RBC % Differential Comment Polychromasia Tear Drop Cells Ovalocytes Stomatocytes Specimen Type Sample Site pH Bicarbonate Actual POC Total CO2 Base Excess O2 Saturation ABG pCO2 ABG pO2 O2 Delivery Device Liter Flow Blood Gas Notified Whom Blood Gas Notified Time Sodium 135 L Potassium 3.7 Chloride 100 Carbon Dioxide 29.0 Anion Gap 6 BUN 16 Creatinine 2.61 H Estim Creat Clear Calc 16.50 Est GFR (MDRD) Af Amer 23 L Est GFR (MDRD) Non-Af 19 L BUN/Creatinine Ratio 6.1 L Glucose 43 L* Calcium 7.2 L Phosphorus Total Bilirubin 0.40 AST 14 L ALT 11 L Alkaline Phosphatase 137 H Ammonia 47.0 H Total Protein 5.8 L Albumin 1.4 L Globulin 4.4 H Albumin/Globulin Ratio 0.3 L TSH Free T4 Fluid Source Fluid Color Fluid Appearance Fluid WBC Fluid RBC Fluid Tot Cell Count Fld Polynuclear WBCs # Fld Polynuclear WBCs % Fluid Mononuclear WBCs Fld Mononuclear WBCs % Fluid Neutrophils Fluid Lymphocytes Fld Mesothelial Cells Fl Pathologist Comment Fluid Glucose Fluid Total Protein Fluid LDH Fluid Comment 2 POC Glucose 31 L* 09/25/19 09/25/19 09/25/19 12:47 13:09 14:00 WBC RBC Hgb Hct MCV MCH MCHC RDW Std Deviation RDW Coeff of Susan Plt Count MPV Immature Gran % (Auto) Neut % (Auto) Lymph % (Auto) Webster % (Auto) Eos % (Auto) Baso % (Auto) Absolute Neuts (auto) Absolute Lymphs (auto) Nucleated RBC % Differential Comment Polychromasia Tear Drop Cells Ovalocytes Stomatocytes Specimen Type Sample Site pH Bicarbonate Actual POC Total CO2 Base Excess O2 Saturation ABG pCO2 ABG pO2 O2 Delivery Device Liter Flow Blood Gas Notified Whom Blood Gas Notified Time Sodium Potassium Chloride Carbon Dioxide Anion Gap BUN Creatinine Estim Creat Clear Calc Est GFR (MDRD) Af Amer Est GFR (MDRD) Non-Af BUN/Creatinine Ratio Glucose Calcium Phosphorus Total Bilirubin AST ALT Alkaline Phosphatase Ammonia Total Protein Albumin Globulin Albumin/Globulin Ratio TSH Free T4 Fluid Source Fluid Color Fluid Appearance Fluid WBC Fluid RBC Fluid Tot Cell Count Fld Polynuclear WBCs # Fld Polynuclear WBCs % Fluid Mononuclear WBCs Fld Mononuclear WBCs % Fluid Neutrophils Fluid Lymphocytes Fld Mesothelial Cells Fl Pathologist Comment Fluid Glucose 108 H Fluid Total Protein 3.0 Fluid LDH 78 Fluid Comment 2 POC Glucose 62 L 141 H 09/25/19 09/25/19 09/25/19 14:00 14:29 16:03 WBC RBC Hgb Hct MCV MCH MCHC RDW Std Deviation RDW Coeff of Susan Plt Count MPV Immature Gran % (Auto) Neut % (Auto) Lymph % (Auto) Webster % (Auto) Eos % (Auto) Baso % (Auto) Absolute Neuts (auto) Absolute Lymphs (auto) Nucleated RBC % Differential Comment Polychromasia Tear Drop Cells Ovalocytes Stomatocytes Specimen Type Sample Site pH Bicarbonate Actual POC Total CO2 Base Excess O2 Saturation ABG pCO2 ABG pO2 O2 Delivery Device Liter Flow Blood Gas Notified Whom Blood Gas Notified Time Sodium Potassium Chloride Carbon Dioxide Anion Gap BUN Creatinine Estim Creat Clear Calc Est GFR (MDRD) Af Amer Est GFR (MDRD) Non-Af BUN/Creatinine Ratio Glucose Calcium Phosphorus Total Bilirubin AST ALT Alkaline Phosphatase Ammonia Total Protein Albumin Globulin Albumin/Globulin Ratio TSH Free T4 Fluid Source THORACENTESIS Fluid Color YELLOW Fluid Appearance SL CLDY Fluid WBC 0.088 Fluid RBC 865 Fluid Tot Cell Count 0.111 H Fld Polynuclear WBCs # 0.009 Fld Polynuclear WBCs % 10.2 Fluid Mononuclear WBCs 0.079 Fld Mononuclear WBCs % 89.8 Fluid Neutrophils 5 Fluid Lymphocytes 24 Fld Mesothelial Cells 71 Fl Pathologist Comment Reviewed Fluid Glucose Fluid Total Protein Fluid LDH Fluid Comment 2 SEE COMMENT POC Glucose 92 74 09/25/19 09/25/19 09/25/19 18:10 20:18 21:39 WBC RBC Hgb Hct MCV MCH MCHC RDW Std Deviation RDW Coeff of Susan Plt Count MPV Immature Gran % (Auto) Neut % (Auto) Lymph % (Auto) Webster % (Auto) Eos % (Auto) Baso % (Auto) Absolute Neuts (auto) Absolute Lymphs (auto) Nucleated RBC % Differential Comment Polychromasia Tear Drop Cells Ovalocytes Stomatocytes Specimen Type Sample Site pH Bicarbonate Actual POC Total CO2 Base Excess O2 Saturation ABG pCO2 ABG pO2 O2 Delivery Device Liter Flow Blood Gas Notified Whom Blood Gas Notified Time Sodium Potassium Chloride Carbon Dioxide Anion Gap BUN Creatinine Estim Creat Clear Calc Est GFR (MDRD) Af Amer Est GFR (MDRD) Non-Af BUN/Creatinine Ratio Glucose Calcium Phosphorus Total Bilirubin AST ALT Alkaline Phosphatase Ammonia Total Protein Albumin Globulin Albumin/Globulin Ratio TSH Free T4 Fluid Source Fluid Color Fluid Appearance Fluid WBC Fluid RBC Fluid Tot Cell Count Fld Polynuclear WBCs # Fld Polynuclear WBCs % Fluid Mononuclear WBCs Fld Mononuclear WBCs % Fluid Neutrophils Fluid Lymphocytes Fld Mesothelial Cells Fl Pathologist Comment Fluid Glucose Fluid Total Protein Fluid LDH Fluid Comment 2 POC Glucose 73 91 130 H 09/25/19 09/26/19 09/26/19 23:52 02:05 03:50 WBC 6.4 RBC 3.22 L Hgb 9.8 L Hct 32.3 L MCV 100.3 H MCH 30.4 MCHC 30.3 L RDW Std Deviation 66.1 H RDW Coeff of Susan 18.7 H Plt Count 149 L MPV 9.4 Immature Gran % (Auto) 0.500 Neut % (Auto) 67.3 Lymph % (Auto) 21.5 Webster % (Auto) 7.5 Eos % (Auto) 2.7 Baso % (Auto) 0.5 Absolute Neuts (auto) 4.3 Absolute Lymphs (auto) 1.37 Nucleated RBC % 0 Differential Comment SCANNED Polychromasia RARE Tear Drop Cells RARE Ovalocytes RARE Stomatocytes RARE Specimen Type Sample Site pH Bicarbonate Actual POC Total CO2 Base Excess O2 Saturation ABG pCO2 ABG pO2 O2 Delivery Device Liter Flow Blood Gas Notified Whom Blood Gas Notified Time Sodium Potassium Chloride Carbon Dioxide Anion Gap BUN Creatinine Estim Creat Clear Calc Est GFR (MDRD) Af Amer Est GFR (MDRD) Non-Af BUN/Creatinine Ratio Glucose Calcium Phosphorus Total Bilirubin AST ALT Alkaline Phosphatase Ammonia Total Protein Albumin Globulin Albumin/Globulin Ratio TSH Free T4 Fluid Source Fluid Color Fluid Appearance Fluid WBC Fluid RBC Fluid Tot Cell Count Fld Polynuclear WBCs # Fld Polynuclear WBCs % Fluid Mononuclear WBCs Fld Mononuclear WBCs % Fluid Neutrophils Fluid Lymphocytes Fld Mesothelial Cells Fl Pathologist Comment Fluid Glucose Fluid Total Protein Fluid LDH Fluid Comment 2 POC Glucose 160 H 137 H 09/26/19 09/26/19 09/26/19 03:50 06:21 11:10 WBC RBC Hgb Hct MCV MCH MCHC RDW Std Deviation RDW Coeff of Susan Plt Count MPV Immature Gran % (Auto) Neut % (Auto) Lymph % (Auto) Webster % (Auto) Eos % (Auto) Baso % (Auto) Absolute Neuts (auto) Absolute Lymphs (auto) Nucleated RBC % Differential Comment Polychromasia Tear Drop Cells Ovalocytes Stomatocytes Specimen Type Sample Site pH Bicarbonate Actual POC Total CO2 Base Excess O2 Saturation ABG pCO2 ABG pO2 O2 Delivery Device Liter Flow Blood Gas Notified Whom Blood Gas Notified Time Sodium 132 L Potassium 4.4 Chloride 97 L Carbon Dioxide 30.0 Anion Gap 5 BUN 19 H Creatinine 3.23 H Estim Creat Clear Calc 13.33 Est GFR (MDRD) Af Amer 18 L Est GFR (MDRD) Non-Af 15 L BUN/Creatinine Ratio 5.9 L Glucose 134 H Calcium 7.5 L Phosphorus 4.4 Total Bilirubin 0.40 AST 21 ALT 13 Alkaline Phosphatase 156 H Ammonia Total Protein 5.5 L Albumin 1.3 L Globulin 4.2 Albumin/Globulin Ratio 0.3 L TSH Free T4 Fluid Source Fluid Color Fluid Appearance Fluid WBC Fluid RBC Fluid Tot Cell Count Fld Polynuclear WBCs # Fld Polynuclear WBCs % Fluid Mononuclear WBCs Fld Mononuclear WBCs % Fluid Neutrophils Fluid Lymphocytes Fld Mesothelial Cells Fl Pathologist Comment Fluid Glucose Fluid Total Protein Fluid LDH Fluid Comment 2 POC Glucose 100 115 H 09/26/19 09/26/19 09/27/19 18:11 21:42 05:26 WBC RBC Hgb Hct MCV MCH MCHC RDW Std Deviation RDW Coeff of Susan Plt Count MPV Immature Gran % (Auto) Neut % (Auto) Lymph % (Auto) Webster % (Auto) Eos % (Auto) Baso % (Auto) Absolute Neuts (auto) Absolute Lymphs (auto) Nucleated RBC % Differential Comment Polychromasia Tear Drop Cells Ovalocytes Stomatocytes Specimen Type Sample Site pH Bicarbonate Actual POC Total CO2 Base Excess O2 Saturation ABG pCO2 ABG pO2 O2 Delivery Device Liter Flow Blood Gas Notified Whom Blood Gas Notified Time Sodium Potassium Chloride Carbon Dioxide Anion Gap BUN Creatinine Estim Creat Clear Calc Est GFR (MDRD) Af Amer Est GFR (MDRD) Non-Af BUN/Creatinine Ratio Glucose Calcium Phosphorus Total Bilirubin AST ALT Alkaline Phosphatase Ammonia Total Protein Albumin Globulin Albumin/Globulin Ratio TSH Free T4 Fluid Source Fluid Color Fluid Appearance Fluid WBC Fluid RBC Fluid Tot Cell Count Fld Polynuclear WBCs # Fld Polynuclear WBCs % Fluid Mononuclear WBCs Fld Mononuclear WBCs % Fluid Neutrophils Fluid Lymphocytes Fld Mesothelial Cells Fl Pathologist Comment Fluid Glucose Fluid Total Protein Fluid LDH Fluid Comment 2 POC Glucose 165 H 135 H 108 09/27/19 06:38 WBC RBC Hgb Hct MCV MCH MCHC RDW Std Deviation RDW Coeff of Susan Plt Count MPV Immature Gran % (Auto) Neut % (Auto) Lymph % (Auto) Webster % (Auto) Eos % (Auto) Baso % (Auto) Absolute Neuts (auto) Absolute Lymphs (auto) Nucleated RBC % Differential Comment Polychromasia Tear Drop Cells Ovalocytes Stomatocytes Specimen Type Sample Site pH Bicarbonate Actual POC Total CO2 Base Excess O2 Saturation ABG pCO2 ABG pO2 O2 Delivery Device Liter Flow Blood Gas Notified Whom Blood Gas Notified Time Sodium Potassium Chloride Carbon Dioxide Anion Gap BUN Creatinine Estim Creat Clear Calc Est GFR (MDRD) Af Amer Est GFR (MDRD) Non-Af BUN/Creatinine Ratio Glucose Calcium Phosphorus Total Bilirubin AST ALT Alkaline Phosphatase Ammonia Total Protein Albumin Globulin Albumin/Globulin Ratio TSH Free T4 Fluid Source Fluid Color Fluid Appearance Fluid WBC Fluid RBC Fluid Tot Cell Count Fld Polynuclear WBCs # Fld Polynuclear WBCs % Fluid Mononuclear WBCs Fld Mononuclear WBCs % Fluid Neutrophils Fluid Lymphocytes Fld Mesothelial Cells Fl Pathologist Comment Fluid Glucose Fluid Total Protein Fluid LDH Fluid Comment 2 POC Glucose 121 H Microbiology 09/25/19 14:00 Fluid - Paracentesis (Abd) Gram Stain - Final 09/25/19 14:00 Fluid - Paracentesis (Abd) Body Fluid Culture - Preliminary No growth-Final to follow Clinical Impression(s) from Imaging Studies Acute Abdomen Series 09/24/19 10:14 IMPRESSION: Chest demonstrates cardiomegaly. Severe diffuse atherosclerosis. Nonspecific bowel gas pattern. No evidence for free air. Electronically Signed: Luis Sawant, at 13:01 EDT Tel , Service support , Chest X-Ray 09/25/19 08:02 IMPRESSION: No active disease. Electronically Signed: Diogo Pearl MD at 8:32 EDT Tel , Service support , Chest X-Ray 09/25/19 12:25 IMPRESSION: The tip of the right PICC line catheter is at the junction of the superior vena cava and right atrium. Electronically Signed: Eric Mckay, at 12:38 EDT , Service support , Paracentesis Ultrasound 09/25/19 13:03 IMPRESSION: Ultrasound guided paracentesis. Electronically Signed: Eric Mckay, at 15:29 EDT , Service support , Current Medications Dextrose (D50w Syringe) 0 gm IV X1 PRN; Protocol PRN Reason: Hypoglycemia Last Admin: 09/25/19 12:52 Dose: 25 gm Documented by: Glucagon () 1 mg IM .X1 PRN PRN Reason: Hypoglycemia Hydrocortisone (Hytone) 1 applic RECTAL BID PRN PRN; Protocol PRN Reason: Hemorrhoids Last Admin: 09/27/19 05:22 Dose: 1 applicatio Documented by: Pantoprazole Sodium 40 mg/ (Sodium Chloride) 110 mls @ 330 mls/hr IV Q12 [facility] Last Infusion: 09/26/19 21:55 Dose: Infused Documented by: Piperacillin Sod/Tazobactam (Sod 3.375 gm/ Sodium Chloride) 50 mls @ 12.5 mls/hr IV Q12 [facility] Last Infusion: 09/27/19 03:00 Dose: Infused Documented by: Insulin Human Lispro (Humalog Kwikpen (Bkc)) 0 unit SC ACHS [facility]; Protocol Last Admin: 09/27/19 06:49 Dose: Not Given Documented by: Midodrine (Proamatine) 10 mg PO TID [facility] Last Admin: 09/27/19 05:20 Dose: 10 mg Documented by: Multivitamins (Allbee W/C Caplet, Thera B Comp/C) 1 capsule PO DAILY [facility] Last Admin: 09/26/19 07:46 Dose: 1 capsule Documented by: Nitroglycerin (Nitrostat) 0.4 mg SUBLINGUAL Q5M PRN PRN Reason: CARDIAC/CHEST PAIN Nutritional Formula (Nepro Carb Steady) 120 ml PO 4X/DAY [facility] Last Admin: 09/26/19 21:24 Dose: 120 ml Documented by: Nystatin (Mycostatin Powder) 1 applic TOPICAL BID [facility]; Protocol Last Admin: 09/26/19 21:15 Dose: 1 applicatio Documented by: Oxycodone HCl (Oxyir) 10 mg PO Q6H PRN PRN PRN Reason: Pain Score 6-10/10 Last Admin: 09/27/19 05:20 Dose: 10 mg Documented by: Phenylephrine HCl (Noelle-Med) 1 supp RC TID [facility] Last Admin: 09/27/19 05:21 Dose: Not Given Documented by: Polyethylene Glycol (Miralax) 17 gm PO BID [facility] Last Admin: 09/26/19 21:17 Dose: 17 gm Documented by: Pramipexole Dihydrochloride (Mirapex) 0.25 mg PO QHS [facility] Last Admin: 09/26/19 21:15 Dose: 0.25 mg Documented by: Promethazine HCl (Phenergan Tablet) 12.5 mg PO Q12H PRN PRN PRN Reason: NAUSEA Senna/Docusate Sodium (Senokot-S, Sarah-Colace) 2 tablet PO BID [facility] Last Admin: 09/26/19 21:14 Dose: 2 tablet Documented by: Sodium Chloride () 10 - 40 ml IV UD PRN PRN Reason: SALINE FLUSH Last Admin: 09/27/19 06:46 Dose: 10 ml Documented by: Medical Necessity - Tobacco Use Smoking Status: Former smoker Tobacco Use: Non-smoker Assessment/Plan All Active Problems (Last Reviewed 09/24/19 @ 13:[address] Robyn Pak, DO) Fecal impaction (Acute) Hematochezia (Acute) Acute on chronic anemia (Acute) Hyperkalemia (Acute) RECOMMENDATIONS: 1. Okay to discontinue antibiotics and monitor clinically. 2. Continue home pain medication regimen. 3. Continue PO Midodrine per home regimen. 4. Continue to monitor blood counts daily and transfuse if hemoglobin drops below 7 g/dL. 5. Continue hemodialysis per nephrology recommendations. 6. Given the further lack of ICU or pulmonary needs, will sign off. Please call with any additional questions. IMPRESSIONS: 1. Shock, most likely hypovolemic in etiology Resolved. The patient's presentation is quite similar to prior hospital admissions. She does have a normal resting systolic blood pressure around 90 mmHg. Although I have a low clinical index of suspicion for underlying infectious etiology, given that the patient does require scheduled, repeated paracenteses, antibiotics were initially started to cover for SBP. However, subsequent infectious work-up was unrevealing. Therefore, antimicrobials can be discontinued at this time. The patient's hemodynamics have stabilized. She no longer requires vasopressor support. Plan to continue PO Midodrine per home regimen. 2. Encephalopathy Resolved. Most likely metabolic in etiology and related to persistent hypoglycemia. She did respond to dextrose infusion with stabilization of blood sugars. Thyroid function is within normal limits. Continue home pain medication regimen. 3. End-stage renal disease on hemodialysis Continue hemodialysis per nephrology recommendations. 4. 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 Continue home medications as indicated. This note was generated with artaculous dictation software. It may contain incorrect words, spelling, and punctuation that were not noted in checking the note before signing. Inpatient E&M: 73107 Subs Hosp L2
--- NOTE | 2019-09-27 10:20 | CASEMGMT ---
SW checked in again w/pt, she confirms will go home, states she has a lot of help at home including her , sister who live with her and her four daughters who check in with her at home often. Pt knows she needs more help than usual however states her family will be able to help her. Pt states she will be better off at home. Pt thanked SW for checking in. Plan continues to be for pt to go home w/assist of family. MANDY Roman
[2019-09-27] MEDS: Senna/Docusate Sodium 1 Tablet 2 TABLET PO (10:39)
[2019-09-27] MEDS: Vitamin B Comp W-C Capsule 1 CAP PO (10:39)
[2019-09-27] MEDS: Nystatin Powder 15gm Bottle 1 APPLIC TOPICAL (10:39)
[2019-09-27] MEDS: Polyethylene Glycol 3350 17 GM PACKET PO (10:39)
[2019-09-27] MEDS: Nepro Liquid 120 ML LIQUID PO (10:44)
[2019-09-27 11:26] LABS: Bedside Glucose 144 mg/dL (70-110)
--- NOTE | 2019-09-27 12:13 | PN.RENAL_ITS ---
Patient Problems: Active and Suspected Problems (Last Reviewed 09/24/19 @ 13:[address] Robyn Pak, DO) Fecal impaction (Acute) Hematochezia (Acute) Acute on chronic anemia (Acute) Hyperkalemia (Acute) Sick sinus syndrome (Suspected) Subjective: HD yesterday with 3L removed. Transferred to PCU. BP stable - Physical Exam Vitals/I&O's: Vital Signs Temp Pulse Resp BP Pulse Ox 98 F 75 20 H 119/50 L 92 09/27/19 08:30 09/27/19 10:00 09/27/19 10:00 09/27/19 08:30 09/27/19 10:00 Oxygen Flow Rate (L/min) 2 Oxygen Delivery Method [2] Venturi Mask Oxygen Delivery Method [1 ( Venturi Mask Initial Baseline)] Oxygen Delivery Method Room Air Weight: 87.4 kg Body Mass Index (BMI) 34.9 Finger Stick Blood Glucose 99 Intake and Output for Last 24 Hours 09/25/19 09/26/19 09/27/19 23:59 23:59 23:59 Intake Total 1359.14 / 1360.08 956.84 / 1156.84 540 / 540 Output Total 4770 / 4770 300 / 300 Balance -3410.86 / -3409.92 656.84 / 856.84 540 / 540 General: Alert, Oriented x3, Cooperative Lungs: Clear to auscultation Cardiovascular: Regular rate Abdomen: Bowel Sounds Present, Soft, Distended, Obese, - - ascites Extremities: Edema - diffuse edema, improving Psych/Mental Status: Normal Affect, Appropriate, Alert and oriented to time, place, person, mood and affect Microbiology Past 72 Hours 09/25/19 14:00 Fluid - Paracentesis (Abd) Gram Stain - Final 09/25/19 14:00 Fluid - Paracentesis (Abd) Body Fluid Culture - Preliminary No growth-Final to follow Laboratory Results 09/26/19 18:11: POC Glucose 165 H 09/26/19 21:42: POC Glucose 135 H 09/27/19 05:26: POC Glucose 108 09/27/19 06:38: POC Glucose 121 H 09/27/19 11:23: POC Glucose 144 H Current Medications Dextrose (D50w Syringe) 0 gm IV X1 PRN; Protocol PRN Reason: Hypoglycemia Last Admin: 09/25/19 12:52 Dose: 25 gm Documented by: Glucagon () 1 mg IM .X1 PRN PRN Reason: Hypoglycemia Hydrocortisone (Hytone) 1 applic RECTAL BID PRN PRN; Protocol PRN Reason: Hemorrhoids Last Admin: 09/27/19 05:22 Dose: 1 applicatio Documented by: Pantoprazole Sodium 40 mg/ (Sodium Chloride) 110 mls @ 330 mls/hr IV Q12 COUNT INCLUDES [facility] Last Admin: 09/27/19 11:18 Dose: Not Given Documented by: Insulin Human Lispro (Humalog Kwikpen (Bkc)) 0 unit SC ACHS COUNT INCLUDES THE [facility]; Protocol Last Admin: 09/27/19 11:26 Dose: Not Given Documented by: Midodrine (Proamatine) 10 mg PO TID COUNT INCLUDES THE [facility] Last Admin: 09/27/19 05:20 Dose: 10 mg Documented by: Multivitamins (Allbee W/C Caplet, Thera B Comp/C) 1 capsule PO DAILY COUNT INCLUDES [facility] Last Admin: 09/27/19 10:39 Dose: 1 capsule Documented by: Nitroglycerin (Nitrostat) 0.4 mg SUBLINGUAL Q5M PRN PRN Reason: CARDIAC/CHEST PAIN Nutritional Formula (Nepro Carb Steady) 120 ml PO 4X/DAY COUNT [facility]CLUDES [facility] Last Admin: 09/27/19 10:44 Dose: 120 ml Documented by: Nystatin (Mycostatin Powder) 1 applic TOPICAL BID COUNT INCLUDES [facility]; Protocol Last Admin: 09/27/19 10:39 Dose: 1 applicatio Documented by: Oxycodone HCl (Oxyir) 10 mg PO Q6H PRN PRN PRN Reason: Pain Score 6-10/10 Last Admin: 09/27/19 05:20 Dose: 10 mg Documented by: Phenylephrine HCl (Noelle-Med) 1 supp RC TID COUNT INCLUDES THE [facility] Last Admin: 09/27/19 05:21 Dose: Not Given Documented by: Polyethylene Glycol (Miralax) 17 gm PO BID COUNT INCLUDES THE [facility] Last Admin: 09/27/19 10:39 Dose: 17 gm Documented by: Pramipexole Dihydrochloride (Mirapex) 0.25 mg PO QHS COUNT INCLUDES THE [facility] Last Admin: 09/26/19 21:15 Dose: 0.25 mg Documented by: Promethazine HCl (Phenergan Tablet) 12.5 mg PO Q12H PRN PRN PRN Reason: NAUSEA Senna/Docusate Sodium (Senokot-S, Sarah-Colace) 2 tablet PO BID [facility] Last Admin: 09/27/19 10:39 Dose: 2 tablet Documented by: Sodium Chloride () 10 - 40 ml IV UD PRN PRN Reason: SALINE FLUSH Last Admin: 09/27/19 06:46 Dose: 10 ml Documented by: Medical Necessity - Tobacco Use Smoking Status: Former smoker Tobacco Use: Non-smoker Assessment/Plan All Active Problems (Last Reviewed 09/24/19 @ 13:[address] Robyn Pak, DO) Fecal impaction (Acute) Hematochezia (Acute) Acute on chronic anemia (Acute) Hyperkalemia (Acute) 1. ESRD HD MWF. Dialysis yesterday with 3.5L fluid removal. 2. Hypotension resolved. 3 GI bleed prbc2u Hgb stable 4. DM2 hypoglycemia resolved, tolerating diet 5. Encephalopathy chronic, improved. Cautious use of narcotics 6. Ascites with liver cirrhosis requiring paracentesis frequently 7. Anasarca, remove fluid on dialysis as tolerated 8. Obstipation use lactulose, stool softener
--- NOTE | 2019-09-27 13:42 | PCM.DC ---
- Discharge Diagnoses Current Active Problems: Current Active and Chronic Problems Fecal impaction (Acute) Hematochezia (Acute) Cirrhosis of liver with ascites (Chronic) Acute on chronic anemia (Acute) Hyperkalemia (Acute) Chronic pain syndrome (Chronic) Chronic narcotic use (Chronic) Reason(s) for Visit for Discharge Instructions: Acute encephalopathy. Decompensated cirrhosis/chronic disease. End-stage renal disease. Hypoglycemia. Constipation. Lower GI bleeding. Hemorrhoids. Type 2 diabetes You will use the following diet at home:: Renal (restricted protein/sodium) Your food should be the consistency of: Regular Discharge Activity: Return to Normal Activity Allergies/Adverse Reactions: Allergies lisinopril Allergy (Severe, Verified 09/24/19 09:56) Angioedema nebivolol HCl [From Bystolic] Adverse Reaction (Severe, Verified 09/24/19 09:56) bradycardia BRADYCARDIA Medications to take at Discharge Acetaminophen [Tylenol] 650 mg PO Q6H PRN 08/06/19 B Complex W-C No.20/Folic Acid [Virt-Caps Softgel] 1 mg PO DAILY 08/06/19 Cholecalciferol (VIT D3) [Vitamin D3] 5,000 unit PO MOWEFR 08/06/19 Melatonin 5 mg PO QHS 08/06/19 Nitroglycerin 0.4 mg SL PRN PRN 08/06/19 Ropinirole HCl [Requip] 2 tab PO QHS 08/06/19 Midodrine HCl 10 mg PO TID #90 tab 09/12/19 Nystatin Powder [Mycostatin Powder] 1 applic TOPICAL BID #1 bottle 09/12/19 Oxycodone HCl/Acetaminophen [Percocet 10-325 mg Tablet] 1 tab PO Q6H PRN PRN 09/24/19 proMETHazine tablet [Phenergan tablet] 12.5 mg PO Q6H PRN PRN 09/24/19 Lactulose [Chronulac] 30 gm PO TID #500 udc 09/27/19 Polyethylene Glycol 3350 [Miralax] 17 gm PO BID #60 packet 09/27/19 Senna/Docusate Sodium [Senokot-S] 2 tab PO BID #120 tab 09/27/19 The following prescriptions were given: Lactulose [Chronulac] 30 gm PO TID #500 udc Transmission Status: Pending to [facility] #[facility] Polyethylene Glycol 3350 [Miralax] 17 gm PO BID #60 packet Transmission Status: Pending to [facility] Senna/Docusate Sodium [Senokot-S] 2 tab PO BID #120 tab Transmission Status: Pending to [facility] Primary Care Physician: Davy Coleman MD [Primary Care Provider] - Please follow up with your Primary Care Physician in: 1-2 weeks Test Results: Test results from this visit will be discussed in further detail at your follow-up appointment, if applicable. Proposed Discharge Date: 09/27/19
--- NOTE | 2019-09-27 13:45 | DS.PCM_ITS ---
Discharge Date and Diagnosis - Problem List Patient Problems: Active and Suspected Problems (Last Reviewed 09/24/19 @ 13:[address] Robyn Pak DO) Fecal impaction (Acute) Hematochezia (Acute) Acute on chronic anemia (Acute) Hyperkalemia (Acute) Sick sinus syndrome (Suspected) Date of Admission: 09/24/19 Date of Discharge: 09/27/19 - Primary Discharge Diagnosis Active and Suspected Problems (Last Reviewed 09/24/19 @ 13:[address] Robyn Pak DO) Fecal impaction (Acute) Hematochezia (Acute) Acute on chronic anemia (Acute) Hyperkalemia (Acute) Sick sinus syndrome (Suspected) - Secondary Discharge Diagnosis Chronic Problems (Last Reviewed 09/24/19 @ 13:[address] Robyn Pak DO) Cirrhosis of liver with ascites (Chronic) Chronic pain syndrome (Chronic) Chronic narcotic use (Chronic) Altered mental status (Chronic) Hypotension (Chronic) on Midodrin History of GI bleed (Chronic) History of non-ST elevation myocardial infarction (NSTEMI) (Chronic 07/05/16) Atherosclerotic heart disease of [place] coronary artery without angina pectoris (Chronic) Stented coronary artery (Chronic) Cutting Balloon and TAMI (3.0X18 mm Xience) Proximal LAD 04/18/2012; Rotational atherectomy to proximal, id and distal RCA with two overlapping 4.0 X 38 Synergy TAMI ([facility] main) Ascites (Chronic) Pancytopenia (Chronic) Other specified peripheral vascular diseases (Chronic) Afib (Chronic) Congenital coronary artery anomaly (Chronic) Bradycardia (Chronic) Suspect sick sinus syndrome Diabetes mellitus, type II (Chronic) Hyperlipidemia (Chronic) Hypothyroidism (Chronic) Anemia in chronic kidney disease (Chronic) Hypertension (Chronic) End stage renal disease on dialysis (Chronic) Hospital Course and Treatment Operations: None, - Procedures: None Summary of Care Provided: The patient is a 74 year old F with a history of end-stage renal disease and chronic liver disease/cirrhosis. Admitted to the hospital on account of change in mental status and diagnosed with acute encephalopathy. Encephalopathy is multifactorial was secondary to hypoglycemia, decompensated cirrhosis with hepatic encephalopathy, opioid toxicity and uremia. Patient treated with lactulose and correction of hypoglycemia and other metabolic derangements and mental status has improved. Insulin held and discontinued going forward. Also doses of opioid analgesics have been reduced. There was some hypotension most likely secondary to her cirrhosis and this also improved. Patient required pressors initially. Also has been placed on an aggressive bowel regimen to prevent constipation which was likely the precipitant of her cirrhosis decompensation. Patient has home health care with this will be resumed. She has all the equipment she needs to be at home. Was seen by physical and Occupational Therapy and they are okay with patient going home with therapy. [] Patient Problems: Active and Suspected Problems (Last Reviewed 09/24/19 @ 13:[address] Robyn Pak, DO) Fecal impaction (Acute) Hematochezia (Acute) Acute on chronic anemia (Acute) Hyperkalemia (Acute) Sick sinus syndrome (Suspected) - Physical Exam Vitals/I&O's: Vital Signs Temp Pulse Resp BP Pulse Ox 98 F 80 20 H 120/60 93 09/27/19 13:00 09/27/19 13:00 09/27/19 13:00 09/27/19 13:00 09/27/19 13:00 Oxygen Flow Rate (L/min) 2 Oxygen Delivery Method [2] Venturi Mask Oxygen Delivery Method [1 ( Venturi Mask Initial Baseline)] Oxygen Delivery Method Room Air Weight: 87.4 kg Body Mass Index (BMI) 34.9 Finger Stick Blood Glucose 99 Intake and Output for Last 24 Hours 09/25/19 09/26/19 09/27/19 23:59 23:59 23:59 Intake Total 1359.14 / 1360.08 956.84 / 1156.84 540 / 540 Output Total 4770 / 4770 300 / 300 Balance -3410.86 / -3409.92 656.84 / 856.84 540 / 540 General: Alert, Oriented x3, Cooperative, No apparent distress, - - Chronically ill-appearing HEENT: Atraumatic Oral: Moist Mucosa Neck: JVD, Right - 3+ Lungs: Clear to auscultation Cardiovascular: Regular rate Abdomen: Obese Extremities: Tenderness Neurological: Cranial nerves II-XII grossly intact Psych/Mental Status: Normal Affect, Appropriate Microbiology Past 72 Hours 09/25/19 14:00 Fluid - Paracentesis (Abd) Gram Stain - Final 09/25/19 14:00 Fluid - Paracentesis (Abd) Body Fluid Culture - Preliminary No growth-Final to follow 09/25/19 14:00 Fluid - Paracentesis (Abd) Anaerobic Culture - Preliminary No growth in 48 hours. 09/25/19 12:05 Blood Culture (Wb) - Arm Right Blood Culture - Preliminary No growth in 48 hours. Laboratory Results 09/26/19 18:11: POC Glucose 165 H 09/26/19 21:42: POC Glucose 135 H 09/27/19 05:26: POC Glucose 108 09/27/19 06:38: POC Glucose 121 H 09/27/19 11:23: POC Glucose 144 H Current Medications Dextrose (D50w Syringe) 0 gm IV X1 PRN; Protocol PRN Reason: Hypoglycemia Last Admin: 09/25/19 12:52 Dose: 25 gm Documented by: Glucagon () 1 mg IM .X1 PRN PRN Reason: Hypoglycemia Hydrocortisone (Hytone) 1 applic RECTAL BID PRN PRN; Protocol PRN Reason: Hemorrhoids Last Admin: 09/27/19 13:00 Dose: 1 applicatio Documented by: Pantoprazole Sodium 40 mg/ (Sodium Chloride) 110 mls @ 330 mls/hr IV Q12 [facility] Last Admin: 09/27/19 11:18 Dose: Not Given Documented by: Insulin Human Lispro (Humalog Kwikpen (Bkc)) 0 unit SC ACHS [facility]; Protocol Last Admin: 09/27/19 11:26 Dose: Not Given Documented by: Midodrine (Proamatine) 10 mg PO TID [facility] Last Admin: 09/27/19 05:20 Dose: 10 mg Documented by: Multivitamins (Allbee W/C Caplet, Thera B Comp/C) 1 capsule PO DAILY [facility] Last Admin: 09/27/19 10:39 Dose: 1 capsule Documented by: Nitroglycerin (Nitrostat) 0.4 mg SUBLINGUAL Q5M PRN PRN Reason: CARDIAC/CHEST PAIN Nutritional Formula (Nepro Carb Steady) 120 ml PO 4X/DAY [facility] Last Admin: 09/27/19 10:44 Dose: 120 ml Documented by: Nystatin (Mycostatin Powder) 1 applic TOPICAL BID [facility]; Protocol Last Admin: 09/27/19 10:39 Dose: 1 applicatio Documented by: Oxycodone HCl (Oxyir) 10 mg PO Q6H PRN PRN PRN Reason: Pain Score 6-10/10 Last Admin: 09/27/19 13:09 Dose: 10 mg Documented by: Phenylephrine HCl (Noelle-Med) 1 supp RC TID [facility] Last Admin: 09/27/19 12:51 Dose: 1 supp Documented by: Polyethylene Glycol (Miralax) 17 gm PO BID [facility] Last Admin: 09/27/19 10:39 Dose: 17 gm Documented by: Pramipexole Dihydrochloride (Mirapex) 0.25 mg PO QHS [facility] Last Admin: 09/26/19 21:15 Dose: 0.25 mg Documented by: Promethazine HCl (Phenergan Tablet) 12.5 mg PO Q12H PRN PRN PRN Reason: NAUSEA Senna/Docusate Sodium (Senokot-S, Sarah-Colace) 2 tablet PO BID [facility] Last Admin: 09/27/19 10:39 Dose: 2 tablet Documented by: Sodium Chloride () 10 - 40 ml IV UD PRN PRN Reason: SALINE FLUSH Last Admin: 09/27/19 06:46 Dose: 10 ml Documented by: Discharge Activity: Return to Normal Activity Home Medications: Medications to take at Discharge Acetaminophen [Tylenol] 650 mg PO Q6H PRN 08/06/19 B Complex W-C No.20/Folic Acid [Virt-Caps Softgel] 1 mg PO DAILY 08/06/19 Cholecalciferol (VIT D3) [Vitamin D3] 5,000 unit PO MOWEFR 08/06/19 Melatonin 5 mg PO QHS 08/06/19 Nitroglycerin 0.4 mg SL PRN PRN 08/06/19 Ropinirole HCl [Requip] 2 tab PO QHS 08/06/19 Midodrine HCl 10 mg PO TID #90 tab 09/12/19 Nystatin Powder [Mycostatin Powder] 1 applic TOPICAL BID #1 bottle 09/12/19 Oxycodone HCl/Acetaminophen [Percocet 10-325 mg Tablet] 1 tab PO Q6H PRN PRN 09/24/19 proMETHazine tablet [Phenergan tablet] 12.5 mg PO Q6H PRN PRN 09/24/19 Lactulose [Chronulac] 30 gm PO TID #500 udc 09/27/19 Polyethylene Glycol 3350 [Miralax] 17 gm PO BID #60 packet 09/27/19 Senna/Docusate Sodium [Senokot-S] 2 tab PO BID #120 tab 09/27/19 Following Prescrptions Were Given to Patient: Lactulose [Chronulac] 30 gm PO TID #500 udc Transmission Status: Pending to [facility] #[facility] Polyethylene Glycol 3350 [Miralax] 17 gm PO BID #60 packet Transmission Status: Pending to [facility] #[facility] Senna/Docusate Sodium [Senokot-S] 2 tab PO BID #120 tab Transmission Status: Pending to [facility] #69 Primary Care Physician: Davy Coleman MD [Primary Care Provider] - Please follow up with your Primary Care Physician in: 1-2 weeks Medical Necessity - Tobacco Use Smoking Status: Former smoker Tobacco Use: Non-smoker Meaningful Use Info Meaningful Use Diagnoses (Choose all that apply): None applicable Inpatient E&M: 70118 [facility]
--- NOTE | 2019-09-27 13:50 | PCA ---
Faxed discharge paperwork to [facility], . Spoke with Sarah JESUS at [facility] and notified her of d/c plan for today and faxed paperwork to [facility] also.
--- NOTE | 2019-09-29 15:27 | CASEMGMT ---
RN CM Discharge F/U Phone Call LACE: 15 Strata: 4 Discharge date: 09/27/2019 Call date: 09/29/2019 Call time: [id number] Attempted to reach pt without success at this time, message left for pt to call this RN CM back if/when able. S[place]en RN CM Admission dx: Weakness, ESRD, fecal impaction, anemia
== END 2019-09-27 17:11 | disposition home or self-care (01) | DRG 432 ==
LOC: ED 11:56 → PCU 12:36 → ICU 09-25 07:55 → PCU 09-26 14:00
PROVIDERS: Internal Medicine; Internal Medicine Critical Care Medicine; Admitting Provider Internal Medicine; Emergency Provider Emergency Medicine; PCP Family Medicine; Visit Provider Internal Medicine
DX: K74.60 Unspecified cirrhosis of liver (principal); G93.41 Metabolic encephalopathy; G92 Toxic encephalopathy; N18.6 End stage renal disease; R57.1 Hypovolemic shock; D61.818 Other pancytopenia; R18.8 Other ascites; I48.21 Permanent atrial fibrillation; E87.1 Hypo-osmolality and hyponatremia; D62 Acute posthemorrhagic anemia; D68.4 Acquired coagulation factor deficiency; I12.0 Hypertensive chronic kidney disease with stage 5 chronic kidney disease or end stage renal disease; K75.81 Nonalcoholic steatohepatitis (NASH); K72.90 Hepatic failure, unspecified without coma; E11.649 Type 2 diabetes mellitus with hypoglycemia without coma; E86.9 Volume depletion, unspecified; I95.9 Hypotension, unspecified; T40.605A Adverse effect of unspecified narcotics, initial encounter; Y92.9 Unspecified place or not applicable; E11.22 Type 2 diabetes mellitus with diabetic chronic kidney disease; D63.1 Anemia in chronic kidney disease; E87.5 Hyperkalemia; K56.41 Fecal impaction; E78.5 Hyperlipidemia, unspecified; I25.10 Atherosclerotic heart disease of native coronary artery without angina pectoris; E03.9 Hypothyroidism, unspecified; G89.4 Chronic pain syndrome; I49.5 Sick sinus syndrome; H54.62 Unqualified visual loss, left eye, normal vision right eye; G25.81 Restless legs syndrome; Z99.2 Dependence on renal dialysis; Z91.14 Patient's other noncompliance with medication regimen; Z79.891 Long term (current) use of opiate analgesic; Z79.899 Other long term (current) drug therapy; I25.2 Old myocardial infarction; Z87.891 Personal history of nicotine dependence; Z96.653 Presence of artificial knee joint, bilateral; Z95.5 Presence of coronary angioplasty implant and graft
CPT/HCPCS: 36415; 36569; 36600; 49083; 71045; 74022; 80048; 80053; 82140; 82803; 82945; 82947; 82962; 83036; 83605; 83615; 84100; 84157; 84439; 84443; 84484; 85025; 85027; 85610; 85730; 86850; 86900; 86901; 86920; 86922; 87040; 87070; 87075; 87205; 89050; 90937; 93005; 96360; 97116; 97162; 97166; 97530; 99251; 99285; J7030; J7040; J7050; P9016; A4216; G0257; G0463

== ENCOUNTER → 2019-10-02 12:38 | Outpatient (CLI) | payer MEDICARE, MEDICAID, SELFPAY ==
[2018-06-11 11:00] VITALS: BMI 27.1
[2019-08-06 13:14] VITALS: BMI 34.3
[2019-09-24 12:50] VITALS: BMI 34.9
--- NOTE | 2019-10-02 12:42 | US_ITS ---
PROCEDURE: Ultrasound guided paracentesis. DATE OF EXAMINATION: October 02, 2019. INDICATION: Female, 74 years old. Ascites. PHYSICIAN: Eric Mckay M.D. TECHNIQUE: The risks, benefits, and alternatives to the procedure were explained to the patient. The specific risks of bleeding, infection, and damage to bowel were detailed and accepted. Witnessed informed consent was obtained. The abdomen was ultrasonographically surveyed. An appropriate pocket of fluid was identified at the right lower quadrant. The skin were cleaned and prepped in the usual sterile fashion. Using ultrasound guidance, the peritoneal cavity was accessed with a 5-Guamanian paracentesis needle/catheter system. The trocar was removed. A total of 3550 ml of blood tinged ron-colored fluid were removed from the peritoneal cavity. The catheter was removed and a sterile dressing was applied. The procedure was well tolerated. US/Paracentesis with US IMPRESSION: Ultrasound guided paracentesis. Electronically Signed: Eric Mckay, at 13:52 EDT , Service support ,
[2019-10-02 13:04] VITALS: BP 114/45; BP 116/47; BP 119/35; PULSE 60; PULSE 65; PULSE 68; RESP 18; TEMP 36.6; O2SAT 100; O2SAT 94; O2SAT 97
== END ==
PROVIDERS: PCP Family Medicine; Referring Provider Family Medicine; Visit Provider Family Medicine
DX: R18.8 Other ascites (principal)
CPT/HCPCS: 49083

== ENCOUNTER → 2019-10-14 12:16 | Outpatient (CLI) | payer MEDICARE, MEDICAID, SELFPAY ==
[2018-06-11 11:00] VITALS: BMI 27.1
[2019-08-06 13:14] VITALS: BMI 34.3
[2019-09-24 12:50] VITALS: BMI 34.9
--- NOTE | 2019-10-14 12:19 | US_ITS ---
PROCEDURE: Ultrasound guided paracentesis. DATE OF EXAMINATION: October 14, 2019. INDICATION: Female, 74 years old. Ascites. PHYSICIAN: Eric Mckay M.D. TECHNIQUE: The risks, benefits, and alternatives to the procedure were explained to the patient. The specific risks of bleeding, infection, and damage to bowel were detailed and accepted. Witnessed informed consent was obtained. The abdomen was ultrasonographically surveyed. An appropriate pocket of fluid was identified at the right lower quadrant. The skin were cleaned and prepped in the usual sterile fashion. Using ultrasound guidance, the peritoneal cavity was accessed with a 5-[place]hi paracentesis needle/catheter system. The trocar was removed. A total of 3150 ml of ron-colored fluid were removed from the peritoneal cavity. The catheter was removed and a sterile dressing was applied. The procedure was well tolerated. US/Paracentesis with US IMPRESSION: Ultrasound guided paracentesis. Electronically Signed: Eric Mckay, at 13:37 EDT , Service support ,
[2019-10-14 12:58] VITALS: BP 126/57; BP 132/63; PULSE 77; RESP 20; O2SAT 97; O2SAT 98
== END ==
PROVIDERS: PCP Family Medicine; Referring Provider Family Medicine; Visit Provider Family Medicine
DX: R18.8 Other ascites (principal)
CPT/HCPCS: 49083

== ENCOUNTER 2019-10-20 10:51 | Emergency (ER) | payer MEDICARE, MEDICAID, SELFPAY ==
[2018-06-11 11:00] VITALS: BMI 27.1
[2019-09-24 12:50] VITALS: BMI 34.9
[2019-10-20 10:54] VITALS: BP 141/81; PULSE 119; RESP 17; TEMP 36.8; O2SAT 95; BMI 32.1
--- NOTE | 2019-10-20 11:13 | CT_ITS ---
STUDY: CT ABDOMEN AND PELVIS WITHOUT CONTRAST REASON FOR EXAM: Female, 74 years old. ABD PAIN, COLON RESECTION D/T DIVERTICULITIS,ALBIN/BSO,GB,APPY,RECTAL FISSURE RADIATION DOSAGE (If Supplied By Facility): CTDIvol = ( 26.30 ) mGy, DLP = ( 1386.38 ) mGycm TECHNIQUE: Transaxial images were obtained from the dome of the diaphragm to the symphysis pubis without oral contrast, and without intravenous contrast. Sagittal and coronal images were reconstructed. Individualized dose optimization techniques were used for this CT. COMPARISON: Noncontrast CT abdomen and pelvis March 14, 2019. CTA abdomen May 23, 2019; there are numerous ultrasound guided paracenteses in the interval since that study. FINDINGS: Small bilateral dependent pleural effusions present, slightly improved since May 2019. Posterior bibasilar atelectasis also mildly improved. Subcentimeter calcified granuloma again seen in the posterolateral periphery of the left base. Stable mild cardiac enlargement. There is calcification in the mitral valve annulus. Atherosclerotic calcifications noted in the coronary arteries and distal descending thoracic aorta. There is a small right lateral pericardial effusion, decreased in size from previous study. Too numerous to count punctate calcified granulomata again seen in the liver. Vaguely defined 1.65 cm hypodensity in the posterior right lobe on series 2 image 56, series 6 on image 93 is grossly unchanged. The portal vein diameter is 14 mm. There is non-visualization of the gallbladder, which may be secondary to either contraction or a prior cholecystectomy. There are stable multiple benign calcified granulomata of the spleen. Normal pancreas. Normal bilateral adrenal glands. There is stable moderately severe cortical atrophy of the right kidney, consistent with chronic medical renal disease. There is stable moderately severe cortical atrophy of the left kidney, consistent with chronic medical renal disease. No hydronephrosis. Normal visualized stomach. Gas filled 13 mm periampullary duodenal diverticulum is slightly decreased in size from previous exam. Normal small intestine. There is question of some mural thickening of the right and transverse colon, although the segments are decompressed and difficult to fully evaluate. There is a rare small colonic diverticulum. Of incidental note, the splenic flexure is displaced to the mid abdomen left of midline. There is non-visualization of the appendix. Moderate ascites again noted. There is diffuse atherosclerotic calcification of the abdominal aorta, iliofemoral arteries, as well as mesenteric and renal arteries. No demonstrated aortic aneurysm. The inferior vena cava is distended to 2.75. Cm diameter 1 cm in diameter para-aortic retroperitoneal structures are grossly unchanged, possibly reflecting paravertebral venous varices rather than nonspecific borderline enlarged lymph nodes. Segmental branches of the hypogastric veins also appear engorged. Normal urinary bladder. There is absence of the uterus consistent with a prior hysterectomy. There is extensive edematous stranding in the subcutaneous tissues of the low chest to the visualized thighs, consistent with anasarca. There are stable degenerative changes of the lower thoracic spine, lower lumbar spine, and sacroiliac joints. CT/Abdomen/Pelvis without Cont IMPRESSION: 1. There are persistent/recurrent findings of anasarca with venous engorgement, moderate volume ascites, and extensive edema in the subcutaneous tissues. 2. Stable cardiac enlargement. There are extensive atherosclerotic vascular calcifications. No demonstrated aortic aneurysm. 3. Small bilateral pleural effusions and subsegmental atelectasis in the adjacent posterior lung bases are mildly improved. 4. Stable moderately severe bilateral renal atrophy. No hydronephrosis. 5. Too numerous to count punctate calcified granulomata are again seen in the liver and spleen. There is a stable 1.5 cm hypodense lesion in the posterior right lobe of the liver. 6. Prior hysterectomy. The gallbladder is not visualized and presumed to be surgically absent. 7. Some mural thickening of the right and transverse colon questioned, likely reflecting some congestive change. However, these segments are nondistended, and more difficult to assess. No sign of bowel obstruction. The appendix is not visualized. 8. Stable periampullary duodenal diverticulum. A few diverticula of the distal colon also present. Electronically Signed: Jose Guadalupe Jenkins MD at 12:27 EDT , Service support ,
[2019-10-20 11:38] LABS: Absolute Lymphocyte Count 0.77 X10^3/uL (0.83-4.51); Basophil# 0.05 X10^3/uL; Basophil% 0.8 % (0-1); Eosinophil# 0.11 X10^3/uL; Eosinophils% 1.8 % (0-5); Hematocrit 34.6 % (37-47); Hemoglobin 10.5 g/dL (12.0-15.0); Lymphocyte # 0.77 X10^3/ul (4.0); Lymphocyte % 12.5 % (19-41); Mean Corp Hgb Conc 30.3 g/dL (32-36); Mean Corpuscular Hgb 30.3 pg (27.0-32.0); Mean Platelet Vol. 9.2 fl (6.2-12.0); Monocyte# 0.24 X10^3/uL; Monocyte% 3.9 % (0-10); NRBC Flagged by Analyzer 0 % (0-5); Neutrophil # 4.97 X10^3/uL (2.7-7.7); Neutrophil % 80.7 % (47-70); Platelet Count 234 K/mm3 (150-450); RBC Distribution Width SD 61.3 fl (35.1-43.9); Red Blood Count 3.46 M/mm3 (4.2-5.4); White Blood Count 6.2 K/mm3 (4.4-11.0)
[2019-10-20 11:49] LABS: International Normalized Ratio 1.1; Partial Thromboplast Time 33.9 Seconds (24.1-36.2); Prothrombin Time (Protime)PT. 13.9 SECONDS (11.7-14.9)
[2019-10-20 11:55] LABS: ALB/GLOB Ratio 0.3 RATIO (0.9-2.4); AST(SGOT) 29 U/L (15-37); Alanine Aminotransfer ALT/SGPT 16 U/L (13-56); Albumin, Serum 1.6 g/dL (3.2-5.0); Alkaline Phosphatase 222 U/L (45-117); Anion Gap 12 (5-15); BUN 25 mg/dL (7-18); BUN/Creat Ratio 5.9 RATIO (10-20); Calcium,Total 8.4 mg/dL (8.5-10.1); Chloride 90 mmol/L (98-107); Creatinine, Serum 4.25 mg/dL (0.55-1.02); EST Glomerular Filtration Rate 11 mL/min (>60); Est Glom Filt Rate - Afr Amer 13 mL/min (>60); Estimated Creatinine Clearance 10.13 ml/min; Globulin 5.9 g/dL (2.2-4.2); Glucose 182 mg/dL (74-106); Lipase 68 U/L (73-393); Potassium 4.9 mmol/L (3.5-5.1); Protein, Total 7.5 g/dL (6.4-8.2); Sodium Level 129 mmol/L (136-145)
[2019-10-20 12:03] LABS: Lactic Acid 1.8 mmol/L (0.4-1.9)
[2019-10-20] MEDS: Morphine 4 MG/ML Syringe IV (12:22)
[2019-10-20] MEDS: Ondansetron 4 MG/2 ML Vial IV (12:22)
--- NOTE | 2019-10-20 13:27 | US_ITS ---
PROCEDURE: Ultrasound guided paracentesis. DATE OF EXAMINATION: October 20, 2019. INDICATION: Female, 74 years old. Ascites. PHYSICIAN: Eric Mckay M.D. TECHNIQUE: The risks, benefits, and alternatives to the procedure were explained to the patient. The specific risks of bleeding, infection, and damage to bowel were detailed and accepted. Witnessed informed consent was obtained. The abdomen was ultrasonographically surveyed. An appropriate pocket of fluid was identified at the right lower quadrant. The skin were cleaned and prepped in the usual sterile fashion. Using ultrasound guidance, the peritoneal cavity was accessed with a 5-Ivorian paracentesis needle/catheter system. The trocar was removed. A total of 4250 ml of ron-colored fluid were removed from the peritoneal cavity. The catheter was removed and a sterile dressing was applied. The procedure was well tolerated. US/Paracentesis with US IMPRESSION: Ultrasound guided paracentesis. Electronically Signed: Eric Mckay, at 15:28 EDT , Service support ,
--- NOTE | 2019-10-20 13:28 | ED.VIS.GI ---
History of Present Illness Chief Complaint: Abd Pain Narrative: Patient presenting for evaluation secondary to abdominal pain. Patient has an underlying history of end-stage renal disease with anasarca. Patient reports that she was admitted at this facility about a month ago and received paracentesis secondary to this. Patient states that today she started to develop abdominal pain. It is a diffuse abdominal pain that is been associated with some nausea but no vomiting diarrhea. Patient does report that she feels mildly constipated associated with this. Patient denies any fevers. She does feel that her abdomen is somewhat distended. Patient reports that she was uncomfortable enough that she missed her dialysis appointment today. She denies any chest pain associated with this. No shortness of breath. Review of systems otherwise negative. Past Medical History - Allergies and Home Meds Allergies/Adverse Reactions: Allergies lisinopril Allergy (Severe, Verified 10/20/19 10:53) Angioedema nebivolol HCl [From Bystolic] Adverse Reaction (Severe, Verified 10/20/19 10:53) bradycardia BRADYCARDIA Primary Care Physician: Davy Coleman MD [Primary Care Provider] - Past Medical History: - - End-stage renal disease on dialysis, past history of arthrocentesis due to anasarca Surgical History: appendectomy, cholecystectomy, hysterectomy, total knee arthroplasty, - - Left upper extremity fistula, back surgery, colon resection with history of diverticulitis, GI bleed, right knee surgery, right total knee replacement, right foot surgery, left knee surgery, left foot surgery, PCI. Smoking Status: Former smoker - Family History Maternal Family History: Family History (Last Reviewed 09/24/19 @ 14:[address] Robyn Pak DO) Sister Diabetes Heart disease Hypertension Anemia Family History: Reports: Cancer - uterine Paternal Family History: Family History (Last Reviewed 09/24/19 @ 14:[address] Robyn Pak DO) Sister Diabetes Heart disease Hypertension Anemia Family History: Reports: Cancer Sibling Family History: Family History (Last Reviewed 09/24/19 @ 14:[address] Robyn Pak DO) Sister Diabetes Heart disease Hypertension Anemia Family History: Reports: Diabetes Review of Systems All systems negative except as indicated General: Denies: Chills, Fever, Sweats Eyes: Denies: Visual changes - bilaterally, Diplopia ENT: Denies: Rhinorrhea, Sore throat Cardiovascular: Denies: Chest pain, Palpitations Respiratory: Denies: Dyspnea, Cough, Dyspnea on exertion Gastrointestinal: Reports: Abdominal pain, Nausea Genitourinary: Denies: Dysuria, Hematuria, Frequency Musculoskeletal: Denies: Back pain, Extremity Pain Skin: Denies: Rash, Wounds Neurological: Denies: Headache, Weakness, Numbness Physical Exam Vital Signs/Narrative: Vital Signs Temp Pulse Resp BP Pulse Ox 10/20/19 10:54 98.2 F 119 H 17 141/81 H 95 Inital Vital Signs reviewed: Yes General: Well nourished, Well developed, No Acute Distress Head: Normocephalic, Atraumatic Eyes: Perrl, EOMI ENT: Dry mucous membranes Neck: Supple Cardiovascular: Irregular, Tachycardia Respiratory: No distress, CTA bilaterally, Chest nontender Abdomen: Tender, - - Diffuse tenderness with distention and a positive fluid wave, no evidence of guarding or rigidity Extremities: Edema - Upper and lower extremity edema that is symmetric in bilateral, +1 Skin: Normal color, No rash Neurological: Alert, Oriented x3, Cranial nerves II-XII grossly intact, Normal Strength, Normal Sensation Psychological: Normal affect, Normal Mood Diagnostic/Tx/Re-eval Clinical Impression(s) from Imaging Studies Abdomen/Pelvis CT 10/20/19 11:13 IMPRESSION: 1. There are persistent/recurrent findings of anasarca with venous engorgement, moderate volume ascites, and extensive edema in the subcutaneous tissues. 2. Stable cardiac enlargement. There are extensive atherosclerotic vascular calcifications. No demonstrated aortic aneurysm. 3. Small bilateral pleural effusions and subsegmental atelectasis in the adjacent posterior lung bases are mildly improved. 4. Stable moderately severe bilateral renal atrophy. No hydronephrosis. 5. Too numerous to count punctate calcified granulomata are again seen in the liver and spleen. There is a stable 1.5 cm hypodense lesion in the posterior right lobe of the liver. 6. Prior hysterectomy. The gallbladder is not visualized and presumed to be surgically absent. 7. Some mural thickening of the right and transverse colon questioned, likely reflecting some congestive change. However, these segments are nondistended, and more difficult to assess. No sign of bowel obstruction. The appendix is not visualized. 8. Stable periampullary duodenal diverticulum. A few diverticula of the distal colon also present. Electronically Signed: Jose Guadalupe Jenkins MD at 12:27 EDT , Service support , Laboratory Data 10/20/19 10/20/19 10/20/19 11:30 11:30 11:30 WBC 6.2 RBC 3.46 L Hgb 10.5 L Hct 34.6 L MCV 100.0 H MCH 30.3 MCHC 30.3 L RDW Std Deviation 61.3 H RDW Coeff of Susan 17.0 H Plt Count 234 MPV 9.2 Immature Gran % (Auto) 0.300 Neut % (Auto) 80.7 H Lymph % (Auto) 12.5 L [place] % (Auto) 3.9 Eos % (Auto) 1.8 Baso % (Auto) 0.8 Absolute Neuts (auto) 5.0 Absolute Lymphs (auto) 0.77 L Nucleated RBC % 0 PT 13.9 INR 1.1 APTT 33.9 Sodium 129 L Potassium 4.9 Chloride 90 L Carbon Dioxide 27.0 Anion Gap 12 BUN 25 H Creatinine 4.25 H Estim Creat Clear Calc 10.13 Est GFR (MDRD) Af Amer 13 L Est GFR (MDRD) Non-Af 11 L BUN/Creatinine Ratio 5.9 L Glucose 182 H Lactic Acid Calcium 8.4 L Total Bilirubin 0.50 AST 29 ALT 16 Alkaline Phosphatase 222 H Total Protein 7.5 Albumin 1.6 L Globulin 5.9 H Albumin/Globulin Ratio 0.3 L Lipase 68 L 10/20/19 11:30 WBC RBC Hgb Hct MCV MCH MCHC RDW Std Deviation RDW Coeff of Susan Plt Count MPV Immature Gran % (Auto) Neut % (Auto) Lymph % (Auto) [place] % (Auto) Eos % (Auto) Baso % (Auto) Absolute Neuts (auto) Absolute Lymphs (auto) Nucleated RBC % PT INR APTT Sodium Potassium Chloride Carbon Dioxide Anion Gap BUN Creatinine Estim Creat Clear Calc Est GFR (MDRD) Af Amer Est GFR (MDRD) Non-Af BUN/Creatinine Ratio Glucose Lactic Acid 1.8 Calcium Total Bilirubin AST ALT Alkaline Phosphatase Total Protein Albumin Globulin Albumin/Globulin Ratio Lipase - Medical Decision Making Patient presented secondary to abdominal pain. She was found to be initially tachycardic. IV was established she was given morphine and Zofran. She had improvement of her pain. CBC demonstrates no signs of infection, shows chronic anemia. Chemistry shows hyponatremia, and signs of chronic renal insufficiency. CT abdomen and pelvis was performed which mainly shows anasarca and associated edema associated with this, no evidence of acute changes or bowel obstruction. I was able to to discuss the patient's case with interventional radiology who will perform a ultrasound-guided paracentesis. At that point the patient will be transferred from the emergency department straight to her dialysis center will she will receive dialysis which I believe the fluid offloaded from the ascites as well as dialysis ultimately will result in her feeling better. Patient was informed of this. Patient will be discharged following her paracentesis. ED Disposition - Plan for ED Patient: Disposition: Home or Assisted Living Diagnosis: End stage renal disease on dialysis, Ascites Instructions: ED END STAGE RENAL DISEASE, Paracentesis Referrals: Davy Coleman MD [Primary Care Provider] - 2 Days
[2019-10-20 13:30] VITALS: BP 130/50; PULSE 98; RESP 13; O2SAT 99
[2019-10-20 14:08] VITALS: BP 126/67; PULSE 105; RESP 18; O2SAT 98
[2019-10-20 14:52] VITALS: BP 103/55; BP 119/62; PULSE 105; PULSE 108; RESP 13; RESP 16; O2SAT 91; O2SAT 97
[2019-10-20 15:45] VITALS: BP 113/55; PULSE 101; RESP 18; O2SAT 94
== END 2019-10-20 15:45 | disposition home or self-care (01) ==
PROVIDERS: Emergency Provider Emergency Medicine; PCP Family Medicine
DX: R18.8 Other ascites (principal); N18.6 End stage renal disease; Z99.2 Dependence on renal dialysis; D63.1 Anemia in chronic kidney disease; E87.1 Hypo-osmolality and hyponatremia; Z79.899 Other long term (current) drug therapy; Z87.891 Personal history of nicotine dependence
CPT/HCPCS: 49083; 74176; 80053; 83605; 83690; 85025; 85610; 85730; 96374; 96375; 99282; A4216; J2405

== ENCOUNTER 2019-10-21 09:03 | Inpatient (IN) | payer MEDICARE, MEDICAID, SELFPAY ==
[2018-06-11 11:00] VITALS: BMI 27.1
[2019-10-20 10:54] VITALS: BMI 32.1
[2019-10-21] VITALS (13 sets, daily range): BP systolic 98–120; BP diastolic 43–58; PULSE 80–98; RESP 12–20; TEMP 36.6–37.2; O2SAT 89–100; BMI 26.7; BMI 33.7
--- NOTE | 2019-10-21 09:16 | CT_ITS ---
STUDY: CT BRAIN WITHOUT CONTRAST REASON FOR EXAM: Female, 74 years old. CONFUSION RADIATION DOSAGE (If Supplied By Facility): CTDIvol = ( 44.99 ) mGy, DLP = ( 728.62 ) mGycm TECHNIQUE: Transaxial CT imaging of the brain was performed without administration of intravenous contrast material. Individualized dose optimization techniques were used for this CT. COMPARISON: Comparison is made with prior study dated July 19, 2017. FINDINGS: Multiple tiny calcifications are seen in the soft tissues of the scalp most likely vascular in nature. Normal calvarium. There is mild cerebral atrophy with widening of the extra-axial spaces and ventricular dilatation. There are areas of decreased attenuation within the white matter tracts of the supratentorial brain, consistent with microvascular disease changes. Normal basal ganglia and thalami. Normal brainstem. Normal cerebellum. There is no intracranial hemorrhage. There are no findings of an acute ischemic infarction. Atherosclerotic calcification of the vertebral arteries and cavernous portions of the internal carotid arteries bilaterally. Normal visualized paranasal sinuses. CT/Brain/Head without Contrast IMPRESSION: Chronic involutional changes of the brain. Electronically Signed: Eric Mckay, at 11:03 EDT , Service support ,
--- NOTE | 2019-10-21 09:16 | EKG12_ITS ---
Test Reason : CONFUSION Blood Pressure : / mmHG Vent. Rate : 095 BPM Atrial Rate : 093 BPM P-R Int : 000 ms QRS Dur : 084 ms QT Int : 344 ms P-R-T Axes : 000 100 155 degrees QTc Int : 432 ms Atrial fibrillation Rightward axis Low voltage QRS Septal infarct , age undetermined Nonspecific T wave abnormality Abnormal ECG Confirmed by ARI NEWMAN, DESHAWN ([id number]), tape editor LEONCIO NAIR ([id number] on 10/23/2019 10:40:06 AM Referred By: YEIMI Confirmed By:DESHAWN CHAPMAN MD
--- NOTE | 2019-10-21 09:26 | ED.VIS.GEN ---
History of Present Illness Chief Complaint: Confusion Informant: Patient Onset: Today Context: Gradual Onset Timing: Intermittent Current Severity: Mild Maximum Severity: Moderate Narrative: The patient is a 74-year-old female with medical history significant for dialysis induced hypotension, end-stage renal disease, and liver disease with ascites who presents to the emergency department with confusion that is improving. The patient was actually here yesterday. At that point, she had increasing abdominal distention. She underwent paracentesis with 4 L removed. She then went to dialysis and had 3 L removed. She states that about 4 in the morning, she woke up confused. She states she knew what she wanted to say, but just felt like she cannot get the words out. She denies any fevers or chills. She denies any dyspnea. She states she is otherwise been in her normal state of health. Prior similar symptoms: Yes Recent Illness/Hospitalization: Yes Past Medical History - Allergies and Home Meds Allergies/Adverse Reactions: Allergies lisinopril Allergy (Severe, Verified 10/21/19 09:09) Angioedema nebivolol HCl [From Bystolic] Adverse Reaction (Severe, Verified 10/21/19 09:09) bradycardia BRADYCARDIA Primary Care Physician: Davy Coleman MD [Primary Care Provider] - Prior records reviewed: Yes Past Medical History: - - End-stage renal disease, hypertension, end-stage liver disease, cirrhosis Surgical History: appendectomy, cholecystectomy, hysterectomy, total knee arthroplasty, - - Left upper extremity fistula, back surgery, colon resection with history of diverticulitis, GI bleed, right knee surgery, right total knee replacement, right foot surgery, left knee surgery, left foot surgery, PCI. Smoking Status: Former smoker - Family History Maternal Family History: Family History (Last Reviewed 09/24/19 @ 14:[address] Robyn Pak DO) Sister Diabetes Heart disease Hypertension Anemia Family History: Reports: Cancer - uterine Paternal Family History: Family History (Last Reviewed 09/24/19 @ 14:[address] Robyn Pak DO) Sister Diabetes Heart disease Hypertension Anemia Family History: Reports: Cancer Sibling Family History: Family History (Last Reviewed 09/24/19 @ 14:[address] Robyn Pak DO) Sister Diabetes Heart disease Hypertension Anemia Family History: Reports: Diabetes Review of Systems General: Denies: Chills, Fever, Sweats Eyes: Denies: Visual changes - bilaterally, Diplopia ENT: Denies: Rhinorrhea, Sore throat Cardiovascular: Denies: Chest pain, Palpitations Respiratory: Denies: Dyspnea, Cough, Dyspnea on exertion Gastrointestinal: Denies: Abdominal pain, Nausea, Vomiting, Diarrhea, Melena, Hematochezia Genitourinary: Denies: Dysuria, Hematuria, Frequency Musculoskeletal: Denies: Back pain, Extremity Pain Skin: Denies: Rash, Wounds Neurological: Denies: Headache, Weakness, Numbness Physical Exam Vital Signs/Narrative: Vital Signs Temp Pulse Resp BP Pulse Ox 10/21/19 09:03 98 F 98 20 H 98/50 L 89 Inital Vital Signs reviewed: Yes General: Well nourished, Well developed, No Acute Distress Head: Normocephalic, Atraumatic Eyes: Perrl, EOMI ENT: Moist mucous membranes, No rhinorrhea Neck: Supple, Nontender Cardiovascular: Regular rate, Regular rhythm, No murmurs Respiratory: No distress, CTA bilaterally, Chest nontender Abdomen: Soft, Nontender, Nondistended, Normal bowel sounds Back: Nontender, Normal Inspection Extremities: Nontender, No edema Skin: Normal color, No rash Neurological: Alert, Oriented x3, Cranial nerves II-XII grossly intact, Normal Strength, Normal Sensation Psychological: Normal affect, Normal Mood Diagnostic/Tx/Re-eval Clinical Impression(s) from Imaging Studies Brain CT 10/21/19 09:16 IMPRESSION: Chronic involutional changes of the brain. Electronically Signed: Eric Mckay, at 11:03 EDT , Service support , Chest X-Ray 10/21/19 10:33 IMPRESSION: Cardiomegaly. Stable mild increased markings at the lung bases slightly more prominent on the left side. Electronically Signed: Eric Mckay, at 11:06 EDT , Service support , Abnormal Lab Results 10/21/19 10/21/19 10/21/19 09:45 09:45 09:45 WBC 8.5 RBC 3.20 L Hgb 9.8 L Hct 32.8 L MCV 102.5 H MCH 30.6 MCHC 29.9 L RDW Std Deviation 64.5 H RDW Coeff of Susan 17.5 H Plt Count 186 MPV 9.9 Immature Gran % (Auto) 0.400 Neut % (Auto) 84.1 H Lymph % (Auto) 9.9 L [place] % (Auto) 3.7 Eos % (Auto) 1.3 Baso % (Auto) 0.6 Absolute Neuts (auto) 7.1 Absolute Lymphs (auto) 0.84 Nucleated RBC % 0 Sodium Cancelled Potassium Cancelled Chloride Cancelled Carbon Dioxide Cancelled Anion Gap Cancelled BUN Cancelled Creatinine Cancelled Estim Creat Clear Calc Cancelled Est GFR (MDRD) Af Amer Cancelled Est GFR (MDRD) Non-Af Cancelled BUN/Creatinine Ratio Cancelled Glucose Cancelled Calcium Cancelled Total Bilirubin Cancelled AST Cancelled ALT Cancelled Alkaline Phosphatase Cancelled Am[place]ia Cancelled Total Protein Cancelled Albumin Cancelled Globulin Cancelled Albumin/Globulin Ratio Cancelled 10/21/19 10/21/19 10:15 10:15 WBC RBC Hgb Hct MCV MCH MCHC RDW Std Deviation RDW Coeff of Susan Plt Count MPV Immature Gran % (Auto) Neut % (Auto) Lymph % (Auto) [place] % (Auto) Eos % (Auto) Baso % (Auto) Absolute Neuts (auto) Absolute Lymphs (auto) Nucleated RBC % Sodium 133 L Potassium 4.5 Chloride 95 L Carbon Dioxide 32.0 Anion Gap 6 BUN 19 H Creatinine 3.30 H Estim Creat Clear Calc 13.05 Est GFR (MDRD) Af Amer 17 L Est GFR (MDRD) Non-Af 14 L BUN/Creatinine Ratio 5.8 L Glucose 174 H Calcium 8.0 L Total Bilirubin 0.60 AST 43 H ALT 14 Alkaline Phosphatase 177 H Ammonia 35.0 H Total Protein 6.6 Albumin 1.4 L Globulin 5.2 H Albumin/Globulin Ratio 0.3 L - Rhythm Strip Rhythm Strip: Sinus Rhythm Rate: 90 Ectopy: None - EKG Initial EKG Interpretation: No Acute Injury Pattern, Atrial Fibrillation Prior: Unchanged - Medical Decision Making The patient presents with a component of expressive aphasia that happened about 3:30 in the morning and lasted half an hour. It is currently resolved. She has an NIH of 0. As her symptoms were resolved, and her NIH is 0, stroke team is not activated. The patient has multiple reasons that could have led to her confusion. Broad metabolic work-up was pursued. Labs are relatively unremarkable for the patient and seem to be at her baseline. Noncontrast head CT shows chronic change without acute abnormalities. At this point, I do feel that she would benefit from admission for TIA work-up. The patient was discussed with the hospitalist. Impression 1. TIA ED Disposition - Plan for ED Patient: Referrals: Davy Coleman MD [Primary Care Provider] -
[2019-10-21 09:54] LABS: Absolute Lymphocyte Count 0.84 X10^3/uL (0.83-4.51); Absolute Neutrophil Count 7.1 X10^3/uL (2.0-7.7); Basophil# 0.05 X10^3/uL; Basophil% 0.6 % (0-1); Eosinophil# 0.11 X10^3/uL; Eosinophils% 1.3 % (0-5); Hematocrit 32.8 % (37-47); Hemoglobin 9.8 g/dL (12.0-15.0); Lymphocyte # 0.84 X10^3/ul (4.0); Lymphocyte % 9.9 % (19-41); Mean Corp Hgb Conc 29.9 g/dL (32-36); Mean Corpuscular Hgb 30.6 pg (27.0-32.0); Mean Corpuscular Volume 102.5 fL (81-99); Mean Platelet Vol. 9.9 fl (6.2-12.0); Monocyte# 0.31 X10^3/uL; Monocyte% 3.7 % (0-10); NRBC Flagged by Analyzer 0 % (0-5); Neutrophil # 7.12 X10^3/uL (2.7-7.7); Neutrophil % 84.1 % (47-70); Platelet Count 186 K/mm3 (150-450); RBC Distribution Width CV 17.5 % (11.6-14.6); RBC Distribution Width SD 64.5 fl (35.1-43.9); White Blood Count 8.5 K/mm3 (4.4-11.0)
--- NOTE | 2019-10-21 10:06 | NURSING ---
CHEMISTRIES AND AMMONIA HEMOLIZED
--- NOTE | 2019-10-21 10:33 | RAD_ITS ---
STUDY: X-RAY CHEST REASON FOR EXAM: Female, 74 years old. COUGH TECHNIQUE: Single AP portable view of the chest. COMPARISON: Comparison is made with prior study dated September 25, 2019. FINDINGS: EKG electrodes are seen. The previously seen right-sided PICC line catheter has been removed. Stable mild increased markings at the left lung base as well as mild right basilar atelectasis. There is no demonstrated pleural abnormality. There is moderate cardiac enlargement. Normal mediastinum and roxy. Normal visualized pulmonary arteries. There is atherosclerotic calcification of the aortic arch with tortuosity. There are diffuse degenerative changes of the visualized thoracic spine. There is degenerative osteoarthritis of the bilateral shoulders. Healed right rib fracture. There is no demonstrated abnormality of the visualized soft tissue structures of the upper abdomen. RAD/Chest 1 View (Portable) IMPRESSION: Cardiomegaly. Stable mild increased markings at the lung bases slightly more prominent on the left side. Electronically Signed: Eric Mckay, at 11:06 EDT , Service support ,
[2019-10-21 10:56] LABS: ALB/GLOB Ratio 0.3 RATIO (0.9-2.4); AST(SGOT) 43 U/L (15-37); Alanine Aminotransfer ALT/SGPT 14 U/L (13-56); Albumin, Serum 1.4 g/dL (3.2-5.0); Alkaline Phosphatase 177 U/L (45-117); Anion Gap 6 (5-15); BUN 19 mg/dL (7-18); BUN/Creat Ratio 5.8 RATIO (10-20); Chloride 95 mmol/L (98-107); EST Glomerular Filtration Rate 14 mL/min (>60); Est Glom Filt Rate - Afr Amer 17 mL/min (>60); Estimated Creatinine Clearance 13.05 ml/min; Globulin 5.2 g/dL (2.2-4.2); Glucose 174 mg/dL (74-106); Potassium 4.5 mmol/L (3.5-5.1); Protein, Total 6.6 g/dL (6.4-8.2); Sodium Level 133 mmol/L (136-145)
--- NOTE | 2019-10-21 11:54 | PCM.HP.STD ---
History of Present Illness Date of Admission: 10/21/19 Chief Complaint: confusion The patient is a 74 year old F with an extensive past medical history as outlined. She was admitted through the ED on 10/21/2019 with a complaint of confusion and altered mental status. Patient states she woke up screaming at the top of her head and kept saying things like get me out of here I cannot get out of here. She thinks her confusion lasted about 30 minutes. Per discussion with ED doctor, patient had told him that at the time she woke up confused, she knew what she wanted to say but felt like she could just not get it out. However during my review with patient, patient told me that she was screaming out loud and knew that what she was saying did not make sense but she could not stop herself. I emphatically asked patient if she felt like she could not get her words out and she said she could get her words out but she just knew that it was not making much sense. Symptoms resolved subsequently. Patient was seen in the ED just 1 day prior to this admission with confusion and had paracentesis done with removal of 4 L of fluid. She then went to the dialysis center and had removal of 3 L of fluid. She denied any fever, chills, cough or chest pain, shortness of breath, nausea vomiting, abdominal pain or diarrhea. Patient has had repeated admissions for hypotension due to dialysis and paracentesis as well as had similar acute metabolic encephalopathy. She was here in August 2019 with similar complaints and had a full work-up for stroke with MRI of the brain and CT of the head as well as carotid duplex which were all negative for stroke. She has been admitted to be managed for acute metabolic encephalopathy of unclear etiology. [] Past Medical History Past Medical History (Chronic Problems): Chronic Problems (Last Reviewed 09/24/19 @ 13:[address] Robyn Pak, ) Cirrhosis of liver with ascites (Chronic) Chronic pain syndrome (Chronic) Chronic narcotic use (Chronic) S/P PTCA (percutaneous transluminal coronary angioplasty) (Chronic) Altered mental status (Chronic) Hypotension (Chronic) on Midodrin History of GI bleed (Chronic) History of non-ST elevation myocardial infarction (NSTEMI) (Chronic 07/05/16) Atherosclerotic heart disease of [place] coronary artery without angina pectoris (Chronic) Stented coronary artery (Chronic) Cutting Balloon and TAMI (3.0X18 mm Xience) Proximal LAD 04/18/2012; Rotational atherectomy to proximal, id and distal RCA with two overlapping 4.0 X 38 Synergy TAMI ([facility] main) Ascites (Chronic) Pancytopenia (Chronic) Other specified peripheral vascular diseases (Chronic) Afib (Chronic) Congenital coronary artery anomaly (Chronic) Bradycardia (Chronic) Suspect sick sinus syndrome Diabetes mellitus, type II (Chronic) Hyperlipidemia (Chronic) Hypothyroidism (Chronic) Anemia in chronic kidney disease (Chronic) Hypertension (Chronic) End stage renal disease on dialysis (Chronic) Medical History: Medical History (Last Reviewed 09/24/19 @ 13:[address] Robyn Pak, DO) History of GI bleed (Chronic) Z87.19 History of non-ST elevation myocardial infarction (NSTEMI) (Chronic) Onset Date: 07/05/16 I25.2 Atherosclerotic heart disease of [place] coronary artery without angina pectoris (Chronic) I25.10 Ascites (Chronic) R18.8 Pancytopenia (Chronic) D61.818 Other specified peripheral vascular diseases (Chronic) I73.89 Afib (Chronic) I48.91 Congenital coronary artery anomaly (Chronic) Q24.5 Bradycardia (Chronic) R00.1 Suspect sick sinus syndrome Diabetes mellitus, type II (Chronic) E11.9 Hyperlipidemia (Chronic) E78.5 Hypothyroidism (Chronic) E03.9 Anemia in chronic kidney disease (Chronic) N18.9, D63.1 Hypertension (Chronic) I10 End stage renal disease on dialysis (Chronic) N18.6, 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 Skin cancer C44.90 mouth/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, 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 Allergies lisinopril Allergy (Severe, Verified 10/21/19 09:09) Angioedema nebivolol HCl [From Bystolic] Adverse Reaction (Severe, Verified 10/21/19 09:09) bradycardia BRADYCARDIA Home Medications: Ambulatory Orders Medication Instructions Recorded Acetaminophen [Tylenol] 650 mg PO Q6H PRN 08/06/19 B Complex W-C No.20/Folic Acid 1 mg PO DAILY 08/06/19 [Virt-Caps Softgel] Cholecalciferol (VIT D3) [Vitamin 5,000 unit PO MOWEFR 08/06/19 D3] Melatonin 5 mg PO QHS 08/06/19 Nitroglycerin 0.4 mg SL PRN PRN 08/06/19 Ropinirole HCl [Requip] 2 tab PO QHS 08/06/19 Oxycodone HCl/Acetaminophen 1 tab PO Q6H PRN PRN 09/24/19 [Percocet 10-325 mg Tablet] proMETHazine tablet [Phenergan 12.5 mg PO Q6H PRN PRN 09/24/19 tablet] Lactulose [Chronulac] 30 gm PO TID 10/21/19 Midodrine HCl 10 mg PO TID 10/21/19 Nystatin Powder [Mycostatin Powder] 1 applic TOPICAL BID 10/21/19 Polyethylene Glycol 3350 [Miralax] 17 gm PO BID 10/21/19 Senna/Docusate Sodium [Senokot-S] 2 tab PO BID 10/21/19 Surgical History: Surgical History (Last Reviewed 09/24/19 @ 13:[address] Robyn Pak DO) Stented coronary artery (Chronic) Z95.5 Cutting Balloon and TAMI (3.0X18 mm Xience) Proximal LAD 04/18/2012; Rotational atherectomy to proximal, id and distal RCA with two overlapping 4.0 X 38 Synergy TAMI ([facility] main) History of back surgery Z98.890 LATE 70'S History of colectomy Z90.49 History of hysterectomy Z90.710 History of laparoscopic cholecystectomy Z90.49 History of total right knee replacement Z96.651 Hx of foot surgery Z98.890 S/P left rotator cuff repair Z98.890 history left A-V fistula Surgical History: appendectomy, cholecystectomy, hysterectomy, total knee arthroplasty, - - Left upper extremity fistula, back surgery, colon resection with history of diverticulitis, GI bleed, right knee surgery, right total knee replacement, right foot surgery, left knee surgery, left foot surgery, PCI. 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 Robyn Pak DO) Sister Diabetes Heart disease Hypertension Anemia History Items: Cancer - uterine Paternal Family History: Family History (Last Reviewed 09/24/19 @ 14:[address] Robyn Pak DO) Sister Diabetes Heart disease Hypertension Anemia History Items: Cancer Sibling Family History: Family History (Last Reviewed 09/24/19 @ 14:[address] Robyn Pak DO) Sister Diabetes Heart disease Hypertension Anemia History Items: Diabetes Review of Systems Constitutional: Denies: Chills, Fever, Malaise, Weakness, Weight Change Eyes: Denies: Blurred vision HEENT: Denies: Head Aches, Sinus Congestion, Sinus Drainage Cardiovascular: Denies: Chest Pain, Palpitations Respiratory: Denies: Cough, Shortness of Breath, Shortness of breath at rest, Shortness of breath upon exertion, Sputum production Gastrointestinal: Denies: Abdominal Pain, Nausea, Vomiting Genitourinary: Denies: Dysuria Musculoskeletal: Denies: Joint Pain, Joint Tenderness Skin: Denies: Rash, Wounds Neurological: Denies: Numbness, Tingling, Focal weakness Psychiatric: Denies: Anxiety, Depression, Homicidal Ideations, Suicidal Ideations Hematologic/ Lymphatic: Denies: Easy Bruising, Easy Bleeding VTE Information - Inpt Only VTE Present on Admission: No Patient Problems: Active and Suspected Problems (Last Reviewed 09/24/19 @ 13:[address] Robyn Pak DO) NSTEMI (non-ST elevated myocardial infarction) (Acute) CAD in [place] artery (Acute) Encephalopathy (Acute) Anemia (Acute) - Physical Exam Vitals/I&O's: Vital Signs Temp Pulse Resp BP Pulse Ox 98.8 F 85 13 107/56 L 99 10/21/19 10:17 10/21/19 10:17 10/21/19 10:17 10/21/19 10:17 10/21/19 10:17 Oxygen Flow Rate (L/min) 2 Oxygen Delivery Method Room Air Weight: 160 lb 14.999 oz Body Mass Index (BMI) 26.7 Finger Stick Blood Glucose 99 General: Alert, Oriented x3, Cooperative, No apparent distress HEENT: Atraumatic, PERRLA, EOMI, Normocephalic Oral: Dry Mucosa Neck: Supple, No JVD, Negative Carotid Bruits Lungs: No rhonchi, - - decreased breath sounds bibasally, no wheezes or crackles Cardiovascular: Regular rate, Regular Rhythm, Normal S1, Normal S2, No murmurs Abdomen: Bowel Sounds Present, Soft, Non Tender, Distended - positive fluid thrill due to ascitis Extremities: No clubbing, No cyanosis, No edema, Capillary Refill Less than 3 Seconds Skin: No rashes, No breakdown Musculoskeletal: No Tenderness to Palpation of Joints or Extremities Lymphatic: No Cervical, Supraclavicular, or Inguinal Adenopathy Neurological: Cranial nerves II-XII grossly intact, Neuro grossly intact, Motor Exam 5/5 strength throughout Psych/Mental Status: Normal Affect, Appropriate, Alert and oriented to time, place, person, mood and affect Laboratory Results 10/21/19 09:45: WBC 8.5, RBC 3.20 L, Hgb 9.8 L, Hct 32.8 L, MCV 102.5 H, MCH 30.6, MCHC 29.9 L, RDW Std Deviation 64.5 H, RDW Coeff of Susan 17.5 H, Plt Count 186, MPV 9.9, Immature Gran % (Auto) 0.400, Neut % (Auto) 84.1 H, Lymph % (Auto) 9.9 L, [place] % (Auto) 3.7, Eos % (Auto) 1.3, Baso % (Auto) 0.6, Absolute Neuts (auto) 7.1, Absolute Lymphs (auto) 0.84, Nucleated RBC % 0 10/21/19 09:45: Sodium Cancelled, Potassium Cancelled, Chloride Cancelled, Carbon Dioxide Cancelled, Anion Gap Cancelled, BUN Cancelled, Creatinine Cancelled, Estim Creat Clear Calc Cancelled, Est GFR (MDRD) Af Amer Cancelled, Est GFR (MDRD) Non-Af Cancelled, BUN/Creatinine Ratio Cancelled, Glucose Cancelled, Calcium Cancelled, Total Bilirubin Cancelled, AST Cancelled, ALT Cancelled, Alkaline Phosphatase Cancelled, Total Protein Cancelled, Albumin Cancelled, Globulin Cancelled, Albumin/Globulin Ratio Cancelled 10/21/19 09:45: Ammonia Cancelled 10/21/19 10:15: Ammonia 35.0 H 10/21/19 10:15: Sodium 133 L, Potassium 4.5, Chloride 95 L, Carbon Dioxide 32.0, Anion Gap 6, BUN 19 H, Creatinine 3.30 H, Estim Creat Clear Calc 13.05, Est GFR (MDRD) Af Amer 17 L, Est GFR (MDRD) Non-Af 14 L, BUN/Creatinine Ratio 5.8 L, Glucose 174 H, Calcium 8.0 L, Total Bilirubin 0.60, AST 43 H, ALT 14, Alkaline Phosphatase 177 H, Total Protein 6.6, Albumin 1.4 L, Globulin 5.2 H, Albumin/Globulin Ratio 0.3 L Diagnostic Data Brain CT 10/21/19 09:16 IMPRESSION: Chronic involutional changes of the brain. Electronically Signed: Eric Mckay, at 11:03 EDT , Service support , Chest X-Ray 10/21/19 10:33 IMPRESSION: Cardiomegaly. Stable mild increased markings at the lung bases slightly more prominent on the left side. Electronically Signed: Eric Mckay, at 11:06 EDT , Service support , Assessment/Plan All Active Problems (Last Reviewed 09/24/19 @ 13:[address] Robyn Pak, ) Fecal impaction (Acute) Hematochezia (Acute) Acute on chronic anemia (Acute) Hyperkalemia (Acute) NSTEMI (non-ST elevated myocardial infarction) (Acute) CAD in [place] artery (Acute) Encephalopathy (Acute) Anemia (Acute) 74 y/o admitted with a complaint of confusion, which had resolved by time of review 1. Acute metabolic encephalopathy etiology is unclear. I do not think patient had a stroke because she did not have any aphasia or dysarthria and just says she got confused and was screaming out. I do wonder if them may have been an element of seizure though she denies any seizure-like activities. Will consult neurology. Get EEG. Patient had an extensive stroke work-up barely a month ago in late August with CT of the brain, MRI of the brain and carotid duplex all of which showed no evidence of stroke. Aggressive neurology evaluation. Fall precautions. PT OT consults. 2. nonstemi initial troponin is 1.25 last 2D echo in may 2019 showed EF of 55%, with normal LV systolic function and mild to moderate aortic stenosis, and moderate tricuspid valve insufficiency. cycle troponins consult cardiology will give aspirin 81mg daily and statins. 3. ESRD on hemodialysis: Has hemodialysis Wednesdays. Consult nephrology if she is not discharged tomorrow and will need dialysis. 4. Ascites due to liver cirrhosis: Had paracentesis yesterday. Has paracentesis every 2 weeks. On lactulose. Ammonia was 35. 5. Anemia of chronic disease: Hb is 9.8, which is around her baseline 6. Hyperlipidemia and hypertension: On statin. 7. History of A. fib: Currently rate controlled. 8. Type 2 diabetes mellitus: on lantus 11 units qhs DVT prophylaxis: heparin Code status: full code I patient's PCP Dr. Coleman to inquire if he had broached end-of-life care and hospice and palliative care with patient. He stated that he had not yet. I therefore discussed with patient if she was interested in palliative care or hospice care due to her frequent visits for the same medical problems. Patient informed me that she had spoken to hospice and palliative care in the past but she did not know whether she wanted to be on board with our services as she did not really understand what it was about. Patient requested that I speak to her daughter who would help him decide if palliative care or hospice care should be consulted during this admission as well. Patient wants her CODE STATUS to be full code. I explained the difference between full code, DNR CCA and DNR CCA to patient and she opted to be full code. Total [id number] time 20 minutes. Inpatient E&M: 80653 Init Hosp L3 Procedures: 74312 Advncd Care Plan 30 Min
--- NOTE | 2019-10-21 12:06 | NURSING ---
PCU ACUTE METABOLIC ENCEPHALOPAHTY, TIA KORAM
--- NOTE | 2019-10-21 14:33 | CASEMGMT ---
SW received a call from Jordan, Organizational Psychologist with [facility]. She said patient met with Palliative Care two weeks ago and signed papers. Patient is still residing with her sister and her daughters come over and help her with her needs. Marylou WHITTEN
--- NOTE | 2019-10-21 14:52 | EKG12_ITS ---
Test Reason : ADMISSION Blood Pressure : / mmHG Vent. Rate : 086 BPM Atrial Rate : 105 BPM P-R Int : 000 ms QRS Dur : 082 ms QT Int : 374 ms P-R-T Axes : 000 091 174 degrees QTc Int : 447 ms Atrial fibrillation Low voltage QRS Septal infarct , age undetermined Abnormal ECG Confirmed by QUIRINO NEWMAN, NANCIE ([id number]), editorial cartoonist LEONCIO NAIR ([id number]) on 10/28/2019 10:06:56 AM Referred By: HERNANDO Confirmed By:NANCIE WIN MD
--- NOTE | 2019-10-21 15:25 | PCM.CONS.C ---
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 (6) Afib Status: Chronic Qualifiers: Atrial fibrillation type: permanent Qualified Code(s): I48.21 - Permanent atrial fibrillation (7) Hyperlipidemia Status: Chronic Qualifiers: (8) Diabetes mellitus, type II Status: Chronic Qualifiers: Chronic kidney disease stage: on chronic dialysis (9) End stage renal disease on dialysis Status: Chronic (10) Ascites Status: Chronic Qualifiers: (11) Anemia Status: Chronic (12) History of GI bleed Status: Chronic (13) Encephalopathy Status: Acute Reason for Consult Date of Consultation: 10/21/19 History of Present Illness: The patient is a 74 year oldywl-xynr-gci white female with a past cardiovascular history which is included hyperlipidemia, hypertension, CAD, status post LAD PCI, 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 The patient states she does not recall what occurred earlier yesterday. She states she feels like she has been out of it for some period of time. She does not recall chest discomfort. She states she is chronically short of breath. She does know she has edema of the lower extremities. She does not recall any loss of consciousness. She does recall undergoing paracentesis recently. She then underwent dialysis. She was evaluated by the [facility] emergency department staff and internal medicine for concerns of confusion thought compatible with metabolic encephalopathy which subsequently has improved. At the moment the patient states that she knows she is at [facility]. During her evaluation she was found to have abnormal troponin I levels. She had an ECG that demonstrated atrial fibrillation with low voltage QRS in the limb leads with poor R wave progression with a septal WA of indeterminate age and non-specific ST and T wave abnormality. She was placed in the PCU for further evaluation and care. Cardiology was consulted. She has previously undergone both noninvasive and invasive cardiovascular evaluation and care locally as well as at [facility]. Her cardiovascular studies available for review are noted below. She states she does not recall the details of her [facility] evaluation. Based upon previous records she did have an evaluation at [facility]. She underwent an FFR of her RCA. At that time she did not require ongoing revascularization therapy. She has not required any type of surgical revascularization therapy. She is also been evaluated at [facility]. Apparently there she had undergone elective rotablation and Cutting Balloon angioplasty with a subsequent Promus TAMI to the RCA system. There was also an attempt to cannulate her anomalous LCx but that was reported as unsuccessful. [] Past Medical History Allergies/Adverse Reactions: Allergies lisinopril Allergy (Severe, Verified 10/21/19 09:09) Angioedema nebivolol HCl [From Bystolic] Adverse Reaction (Severe, Verified 10/21/19 09:09) bradycardia BRADYCARDIA Home Medications: Ambulatory Orders Medication Instructions Recorded Acetaminophen [Tylenol] 650 mg PO Q6H PRN 08/06/19 B Complex W-C No.20/Folic Acid 1 mg PO DAILY 08/06/19 [Virt-Caps Softgel] Cholecalciferol (VIT D3) [Vitamin 5,000 unit PO MOWEFR 08/06/19 D3] Melatonin 5 mg PO QHS 08/06/19 Nitroglycerin 0.4 mg SL PRN PRN 08/06/19 Ropinirole HCl [Requip] 2 tab PO QHS 08/06/19 Oxycodone HCl/Acetaminophen 1 tab PO Q6H PRN PRN 09/24/19 [Percocet 10-325 mg Tablet] proMETHazine tablet [Phenergan 12.5 mg PO Q6H PRN PRN 09/24/19 tablet] Lactulose [Chronulac] 30 gm PO TID 10/21/19 Midodrine HCl 10 mg PO TID 10/21/19 Nystatin Powder [Mycostatin Powder] 1 applic TOPICAL BID 10/21/19 Polyethylene Glycol 3350 [Miralax] 17 gm PO BID 10/21/19 Senna/Docusate Sodium [Senokot-S] 2 tab PO BID 10/21/19 Past Medical History (Chronic Problems): Chronic Problems (Last Reviewed 09/24/19 @ 13:[address] Robyn Pak DO) Cirrhosis of liver with ascites (Chronic) Chronic pain syndrome (Chronic) Chronic narcotic use (Chronic) S/P PTCA (percutaneous transluminal coronary angioplasty) (Chronic) Altered mental status (Chronic) Hypotension (Chronic) on Midodrin History of GI bleed (Chronic) History of non-ST elevation myocardial infarction (NSTEMI) (Chronic 07/05/16) Atherosclerotic heart disease of gambell coronary artery without angina pectoris (Chronic) Stented coronary artery (Chronic) Cutting Balloon and TAMI (3.0X18 mm Xience) Proximal LAD 04/18/2012; Rotational atherectomy to proximal, id and distal RCA with two overlapping 4.0 X 38 Synergy TAMI ([facility] main) Ascites (Chronic) Pancytopenia (Chronic) Other specified peripheral vascular diseases (Chronic) Afib (Chronic) Congenital coronary artery anomaly (Chronic) Bradycardia (Chronic) Suspect sick sinus syndrome Diabetes mellitus, type II (Chronic) Hyperlipidemia (Chronic) Hypothyroidism (Chronic) Anemia in chronic kidney disease (Chronic) Hypertension (Chronic) End stage renal disease on dialysis (Chronic) Surgical History: appendectomy, cholecystectomy, hysterectomy, total knee arthroplasty, - - Left upper extremity fistula, back surgery, colon resection with history of diverticulitis, GI bleed, right knee surgery, right total knee replacement, right foot surgery, left knee surgery, left foot surgery, PCI. 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 Robyn Pak DO) Sister Diabetes Heart disease Hypertension Anemia History Items: Cancer - uterine Paternal Family History: Family History (Last Reviewed 09/24/19 @ 14:[address] Robyn Pak DO) Sister Diabetes Heart disease Hypertension Anemia History Items: Cancer Sibling Family History: Family History (Last Reviewed 09/24/19 @ 14:[address] Robyn Pak DO) Sister Diabetes Heart disease Hypertension Anemia History Items: Diabetes Smoking Status: Never smoker Review of Systems - Review of Systems Cardiovascular: Reports: Shortness of Breath Respiratory: Reports: Shortness of Breath Neurological: Reports: Confusion Subjectve: Is a 74-year-old white female who appears to be resting comfortably at the moment in no acute distress. Objective: Vital Signs Temp Pulse Resp BP Pulse Ox 97.9 F 86 20 H 102/47 L 100 10/21/19 12:46 10/21/19 14:57 10/21/19 12:46 10/21/19 12:46 10/21/19 12:46 Oxygen Flow Rate (L/min) 2 Oxygen Delivery Method Nasal Cannula Weight: 202 lb 12.816 oz Body Mass Index (BMI) 33.7 Finger Stick Blood Glucose 99 General: Awake, Alert, Oriented x 3, Cooperative, No Acute Distress, Obese HEENT: Atraumatic, Normocephalic, PERRL, EOMI Neck: Supple, Good ROM, No JVD Lungs: Clear to auscultation Cardiovascular: Irregular Rhythm, Normal S1, Normal S2 Murmur Murmur: Grade 2/6, Mid Systolic, LLSB Abdomen: Bowel Sounds Present, Soft Extremities: Moderate RLE Edema, Moderate LLE Edema 10/21/19 09:45: WBC 8.5, RBC 3.20 L, Hgb 9.8 L, Hct 32.8 L, MCV 102.5 H, MCH 30.6, MCHC 29.9 L, Plt Count 186, MPV 9.9, Immature Gran % (Auto) 0.400, Neut % (Auto) 84.1 H, Lymph % (Auto) 9.9 L, Terrell % (Auto) 3.7, Eos % (Auto) 1.3, Baso % (Auto) 0.6, Absolute Neuts (auto) 7.1, Nucleated RBC % 0 10/21/19 09:45: Sodium Cancelled, Potassium Cancelled, Chloride Cancelled, Carbon Dioxide Cancelled, Anion Gap Cancelled, BUN Cancelled, Creatinine Cancelled, Est GFR (MDRD) Af Amer Cancelled, Est GFR (MDRD) Non-Af Cancelled, BUN/Creatinine Ratio Cancelled, Glucose Cancelled, Calcium Cancelled, Total Bilirubin Cancelled 10/21/19 10:15: Sodium 133 L, Potassium 4.5, Chloride 95 L, Carbon Dioxide 32.0, Anion Gap 6, BUN 19 H, Creatinine 3.30 H, Est GFR (MDRD) Af Amer 17 L, Est GFR (MDRD) Non-Af 14 L, BUN/Creatinine Ratio 5.8 L, Glucose 174 H, Calcium 8.0 L, Total Bilirubin 0.60 10/21/19 14:18: Troponin I 1.250 H* Rhythm: EKG: ECHO: 05-23-2019 Interpretation Summary Normal LV size. Left ventricular systolic function is normal. The estimated ejection fraction is 55 %. Mild focal aortic valve calcification. Mild to moderate aortic stenosis. Small pericardial effusion. Moderate (2+) tricuspid valve insufficiency. Stress Test: Stress Test Report Date: 02-15-19 Procedure: Pharmacologic stress nuclear imaging study Indications: Chest pain Consent: Per the patient Myocardial perfusion imaging study: Technique: The patient was injected with 11.4 millicuries of technetium 99m Cardiolite and subsequently rest SPECT Cardiolite nuclear imaging was obtained in the horizontal long, vertical long, and short axis views. The patient's pharmacologic stress nuclear imaging study was subsequently canceled by the patient's attending physician based upon ongoing noncardiovascular issues. Interpretation: Rest SPECT Cardiolite nuclear imaging status post realignment, normalization, and attenuation correction demonstrate relative uniform tracer uptake and myocardial perfusion appearing within normal limits. Impression: 1. Rest SPECT cardio light nuclear imaging demonstrates relative uniform tracer uptake and myocardial perfusion appearing within normal limits. Cardiac Cath: 07-05-16 RESULTS: LEFT MAIN: The left main is quite large and has a visible stent in its proximal portion as well as severe proximal calcification. LEFT ANTERIOR DESCENDING: The stent is widely patent. The remainder of the LAD wraps around the apex of the heart and has minimal nonobstructive coronary artery disease. DIAGONAL #1: Diagonal #1 appears to have been straddled by the previously mentioned stent. There is a 50-60% ostial stenosis, which appears to be identical to what it was in 2015. The remaining diagonal branches have minimal nonobstructive disease. Knowing that the patient has had challenges getting into the right coronary, a 4-Cameroonian AL1 catheter was used to easily cannulate into the right coronary artery. There was no dampening or ventricularization upon engagement. RIGHT CORONARY ARTERY: The RCA is a large and dominant vessel, which is severely calcified in its proximal, mid and distal portion. The outline of the vessel is easily seen without any coronary IV contrast dye. It is dominant and bifurcates into a large PDA and terminates into a posterolateral branch. There are 3 tandem lesions in the proximal, mid and distal portion of the RCA, which appeared to have markedly worsened since her catheterization in 2014. POSTERIOR DESCENDING ARTERY: The PDA is a large vessel and is free of significant disease. POSTEROLATERAL BRANCH: The posterolateral branch has minimal nonobstructive disease. Knowing that the patient has an anomalous left circumflex, the AL1 catheter was exchanged over a wire for a 4-Cameroonian multipurpose catheter. This was easily engaged into the anomalous left circumflex. There was no dampening or ventricularization upon engagement. The anomalous left circumflex has [id number] proximal calcification, but it is widely patent in its proximal mid portion. In its mid portion, it is 100% occluded or subtotally occluded as there is some mild distal dye, which may be due to right to left collaterals. In addition in the LAD, there was evidence of left to right collaterals as well. Next, the multipurpose guide catheter was removed and exchanged for a 4-Cameroonian angled pigtail catheter. This was easily engaged in the left ventricular chamber. LV pressure was 174 with an EDP of 17, AO pressure was 168/53 with a mean of 99, LV angiogram performed in the 30-degree HUNTER position demonstrated excellent anterior apical and inferior contractility. No evidence of significant mitral regurgitation, no significant gradient seen on pullback. CONCLUSIONS: 1. Widely patent LAD stent. 2. 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 3. Severely calcified proximal, mid and distal RCA with severe progression of previously mentioned tandem lesions in the proximal, mid and distal RCA. 4. Normal LV size and function. 5. Moderate elevated LVEDP. RECOMMENDATIONS: At this point, I would recommend the patient proceed with evaluation by a high risk interventionalist at [facility]. The patient had previously seen Dr. Cruz who underwent a flow wire at that time. Intervention at our facility may be somewhat high risk given the severe calcification, tendency for rupture, and lack of rotablation should this be necessary. In addition, she will be evaluated hopefully by a CV surgeon to determine if perhaps single vessel or 2-vessel bypass surgery may be indicated if her anomalous left circumflex artery could be reached by surgical intervention. The patient was already on baby aspirin and Plavix as an outpatient, and her heparin drip was discontinued earlier today. We will continue her nitroglycerin drip for her hypertension and elevated LV wall tension. I spoken with the cardiac team at [facility] and the patient will be admitted to Dr. Felix Medina pending any changes between now and then. The 4-Cameroonian sheath was sutured in place and the nitroglycerin drip was continued. The patient tolerated the procedure well with no complications. CXR: Preliminary evaluation: No acute cardiopulmonary disease process appreciated: Please see official report Assessment/Plan 1. Non-ST segment elevation WA The patient does have abnormal cardiac enzymes. Etiology may be multifactorial. She does have underlying multivessel CAD which has required PCI in the past. She also has underlying end-stage renal disease on chronic hemodialysis which may be a contributing factor. 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 At the moment she is without any acute symptoms of chest discomfort. She will continue to be followed with cardiac enzymes and ECG. She can have a follow-up echocardiogram to look for new left ventricular regional wall motion abnormalities. Consideration will have to be given, depending upon her overall clinical course, etc., as to whether she is a candidate for repeat diagnostic cardiac catheterization and/or some form of revascularization procedure which depending upon her underlying gambell vessels and her past history may have to be performed at a tertiary care center. In the interim she will continue medical therapy as deemed appropriate. Include agents such as aspirin, antiplatelets, nitrates as needed, beta-blockers, lipid-lowering agents, and anticoagulant agents if tolerated. If the patient is on aspirin and antiplatelet she would have to be monitored for any obvious evidence of recurrent hemorrhagic issues, etc. 2. CAD status post PCI She will continue to be followed. She will continue cardiac enzyme analysis and ECG follow-up. She can continue noninvasive evaluation with consideration to future invasive evaluation if deemed appropriate. In the meantime she will continue medical therapy. 3. Congenital coronary anomaly She does have a history of an LCx arising from the RCA. According to previous medical records there has been an attempt at [facility] in the past to cannulate this vessel. However this was considered unsuccessful. 4. Atrial fibrillation She does have a history of atrial fibrillation. She can continue rate control therapy as needed. She is not on anticoagulant therapy based on concerns of anemia and previous reports of gastrointestinal bleeding. 5. Hyperlipidemia She will continue risk factor evaluation care as tolerated. 6. Hypertension Her blood pressure can be followed and her medications can be adjusted as needed. 7. Diabetes mellitus She will continue evaluation care per internal medicine. 8. End-stage renal disease on chronic hemodialysis She will continue with nephrology input. 9. Ascites She does have a history of ascites. She has required paracentesis in the past and recently. If there is any concern about any infectious disease related issue this may be a potential etiology for her that would need to be pursued. 10. Anemia She remains anemic. This may be anemia of chronic disease. However she has had underlying gastrointestinal bleeding process based upon her past medical history. Thus her H&H will need to be followed and pursued appropriately. 11. GI bleed She does have a history of GI bleeding. Apparently this is contributing to her lack of anticoagulation therapy. 12. Metabolic encephalopathy She has a history of metabolic encephalopathy. She appears to be better at this time. She can continue evaluation care per internal medicine and neurology. This note was generated using a voice recognition system and there may be incorrect words, spelling or punctuation that were not noted when reviewing the office note prior to saving.
[2019-10-21] MEDS: Lactulose 20 GM/30 ML UDC 30 GM PO ×2 (17:34→21:40)
[2019-10-21] MEDS: Acetaminophen 325 MG Tablet 650 MG PO (17:34)
[2019-10-21] MEDS: Midodrine HCl 5 MG Tablet 10 MG PO ×2 (17:34→21:42)
[2019-10-21] MEDS: Aspirin 81 MG TAB.CHEW PO (17:35)
[2019-10-21] MEDS: Clopidogrel Bisulfate 300 MG Tablet PO (17:35)
[2019-10-21] MEDS: Heparin Injection (Vial) 5,000 UNIT/ML VIAL 5000 UNIT SC (21:41)
[2019-10-21] MEDS: Senna/Docusate Sodium 1 Tablet 2 TABLET PO (21:42)
[2019-10-21] MEDS: MELATONIN 10 MG TABLET 5 MG PO (21:42)
[2019-10-21] MEDS: Pramipexole Di-HCl 0.25 MG Tablet PO (21:43)
[2019-10-21] MEDS: Nystatin Powder 15gm Bottle 1 APPLIC TOPICAL (21:48)
[2019-10-21 23:16] LABS: Bedside Glucose 119 mg/dL (70-110)
[2019-10-22] VITALS (10 sets, daily range): BP systolic 86–117; BP diastolic 41–56; PULSE 74–98; RESP 16–18; TEMP 36.6–37.2; O2SAT 94–99
[2019-10-22] MEDS: Midodrine HCl 5 MG Tablet 10 MG PO ×3 (05:37→20:41)
[2019-10-22] MEDS: Acetaminophen 325 MG Tablet 650 MG PO ×3 (05:41→18:49)
[2019-10-22 05:48] LABS: Absolute Neutrophil Count 5.9 X10^3/uL (2.0-7.7); Basophil# 0.05 X10^3/uL; Basophil% 0.6 % (0-1); Eosinophil# 0.26 X10^3/uL; Eosinophils% 3.1 % (0-5); Hematocrit 32.2 % (37-47); Hemoglobin 9.4 g/dL (12.0-15.0); Lymphocyte % 19.3 % (19-41); Mean Corp Hgb Conc 29.2 g/dL (32-36); Mean Corpuscular Hgb 30.3 pg (27.0-32.0); Mean Corpuscular Volume 103.9 fL (81-99); Mean Platelet Vol. 9.1 fl (6.2-12.0); Monocyte# 0.46 X10^3/uL; Monocyte% 5.5 % (0-10); NRBC Flagged by Analyzer 0 % (0-5); Neutrophil # 5.89 X10^3/uL (2.7-7.7); Neutrophil % 71.1 % (47-70); Platelet Count 185 K/mm3 (150-450); RBC Distribution Width CV 17.3 % (11.6-14.6); RBC Distribution Width SD 64.3 fl (35.1-43.9); White Blood Count 8.3 K/mm3 (4.4-11.0)
[2019-10-22 06:14] LABS: Anion Gap 10 (5-15); BUN 24 mg/dL (7-18); BUN/Creat Ratio 6.3 RATIO (10-20); Calcium,Total 8.1 mg/dL (8.5-10.1); Chloride 97 mmol/L (98-107); EST Glomerular Filtration Rate 12 mL/min (>60); Est Glom Filt Rate - Afr Amer 15 mL/min (>60); Estimated Creatinine Clearance 11.33 ml/min; Glucose 96 mg/dL (74-106); Potassium 3.8 mmol/L (3.5-5.1); Sodium Level 135 mmol/L (136-145)
[2019-10-22] MEDS: Senna/Docusate Sodium 1 Tablet 2 TABLET PO (08:32)
[2019-10-22] MEDS: Heparin Injection (Vial) 5,000 UNIT/ML VIAL 5000 UNIT SC ×2 (08:32→20:40)
[2019-10-22] MEDS: Nystatin Powder 15gm Bottle 1 APPLIC TOPICAL (08:32)
[2019-10-22] MEDS: Aspirin 81 MG TAB.CHEW PO (08:34)
[2019-10-22] MEDS: Clopidogrel Bisulfate 75 MG Tablet PO (08:35)
[2019-10-22] MEDS: Folic Acid/Vitamin B Comp W-C 1 Capsule 1 CAP PO (08:35)
--- NOTE | 2019-10-22 08:52 | PN.CARD_ITS ---
Subjectve: Patient seen and examined this morning. Especially can remember she woke up at 4 AM on the day prior to admission screaming for her sister, confused as to where she was or what was going on. The patient did not seek medical attention during the whole day, but continued to have mental status changes. According to the patient out of concern from her family she was brought to the emergency room. Concomitant with this she had complained of chest pressure during dialysis over the last several weeks, and abdominal pain on her day of admission. She denied any exertional symptoms however. Her troponins have remained abnormal but flat at 1.26, 1.5 and 1.7. EKG shows atrial fibrillation with low voltage, no acute changes. Patient is unaware that she is in atrial fibrillation. She is on no anticoagulation therapy. Initially the patient CT scan showed chronic involutional changes, but no acute infarction. Patient may require an MRI. Objective: Vital Signs Temp Pulse Resp BP Pulse Ox 97.9 F 80 16 110/52 L 94 10/22/19 08:25 10/22/19 08:25 10/22/19 08:25 10/22/19 08:25 10/22/19 08:25 Oxygen Flow Rate (L/min) 2 Oxygen Delivery Method Nasal Cannula Weight: 202 lb 12.816 oz Body Mass Index (BMI) 33.7 Finger Stick Blood Glucose 99 Intake and Output for Last 24 Hours 10/20/19 10/21/19 10/22/19 23:59 23:59 23:59 Intake Total 460 / 460 Balance 460 / 460 General: Awake, Alert, Oriented x 3 HEENT: PERRL, EOMI, Sclera Non Icteric Neck: Supple, Good ROM, No Lymph Node Enlargement Lungs: Clear to auscultation Cardiovascular: Irregular Rhythm, Normal S1, Normal S2, No Murmurs, No Rubs, No Gallops Vascular: No Carotid Bruits, Normal Femoral Pulses, Normal Radial Pulses, Normal Dorsalis Pedal Pulse, Normal Posterior Tibial Pulses Abdomen: Bowel Sounds Present, Soft, Non Tender, No HSM, No Organomegaly Extremities: No Cyanosis, No Clubbing, No edema Neurological: No Focal Motor or Sensory Deficit 10/21/19 09:45: WBC 8.5, RBC 3.20 L, Hgb 9.8 L, Hct 32.8 L, MCV 102.5 H, MCH 30.6, MCHC 29.9 L, Plt Count 186, MPV 9.9, Immature Gran % (Auto) 0.400, Neut % (Auto) 84.1 H, Lymph % (Auto) 9.9 L, Livingston % (Auto) 3.7, Eos % (Auto) 1.3, Baso % (Auto) 0.6, Absolute Neuts (auto) 7.1, Nucleated RBC % 0 10/21/19 09:45: Sodium Cancelled, Potassium Cancelled, Chloride Cancelled, Carbon Dioxide Cancelled, Anion Gap Cancelled, BUN Cancelled, Creatinine Cancelled, Est GFR (MDRD) Af Amer Cancelled, Est GFR (MDRD) Non-Af Cancelled, BUN/Creatinine Ratio Cancelled, Glucose Cancelled, Calcium Cancelled, Total Bilirubin Cancelled 10/21/19 10:15: Sodium 133 L, Potassium 4.5, Chloride 95 L, Carbon Dioxide 32.0, Anion Gap 6, BUN 19 H, Creatinine 3.30 H, Est GFR (MDRD) Af Amer 17 L, Est GFR (MDRD) Non-Af 14 L, BUN/Creatinine Ratio 5.8 L, Glucose 174 H, Calcium 8.0 L, Total Bilirubin 0.60 10/21/19 14:18: Troponin I 1.250 H* 10/21/19 17:10: Troponin I 1.610 H* 10/21/19 20:40: Troponin I 1.730 H* 10/22/19 05:10: WBC 8.3, RBC 3.10 L, Hgb 9.4 L, Hct 32.2 L, MCV 103.9 H, MCH 30.3, MCHC 29.2 L, Plt Count 185, MPV 9.1, Immature Gran % (Auto) 0.400, Neut % (Auto) 71.1 H, Lymph % (Auto) 19.3, Livingston % (Auto) 5.5, Eos % (Auto) 3.1, Baso % (Auto) 0.6, Absolute Neuts (auto) 5.9, Nucleated RBC % 0 10/22/19 05:10: Sodium 135 L, Potassium 3.8, Chloride 97 L, Carbon Dioxide 28.0, Anion Gap 10, BUN 24 H, Creatinine 3.80 H, Est GFR (MDRD) Af Amer 15 L, Est GFR (MDRD) Non-Af 12 L, BUN/Creatinine Ratio 6.3 L, Glucose 96, Calcium 8.1 L Rhythm: EKG: ECHO: pending Stress Test: Cardiac Cath: PCI: CT Surgery: Holter monitor: EPS: PPM: CXR: Chest CT Scan: Medical Necessity - Tobacco Use Smoking Status: Never smoker Assessment/Plan 1. Abnormal troponins: I am unsure what to make of the patient's abnormal troponins, although she has had some chest pressure while she is on dialysis recently. Patient's primary complaint was mental status changes, and although her CT scan was negative for overt CVA, she may have had a TIA as she is in atrial fibrillation on no anticoagulation therapy. I recommended that we hold off on diagnostic coronary catheterization at this time until we can better figure out the source of her mental status changes. I would recommend obtaining a urine analysis, to determine if she has a clean dusting urinary tract infection, as well as an MRI to determine if she has had a TIA or CVA that was not detectable by CT scan. If the patient has had a TIA or CVA, I would not recommend diagnostic catheterization at this time as she is essentially asymptomatic. The patient has complex coronary anatomy and required rotablation therapy of her right coronary artery and has a highly calcified anomalous left circumflex artery. She has had previous stenting to her LAD, and her previous catheterization most recently showed widely patent LAD stents. If however the patient does not have any significant TIA or CVA, I would recommend proceeding with left heart catheterization to evaluate her troponins. This could be done tomorrow, . In the meantime will continue baby aspirin and Plavix. 2. Atrial fibrillation: If the patient was found to have a TIA/CVA, she will require anticoagulation therapy given her atrial fibrillation. This would be superimposed on her baby aspirin and Plavix. 3. Hyperlipidemia: Recommend obtaining a fasting blood profile. 4. Thank you very much for the opportunity to participate in the cardiac care of your patient. Inpatient E&M: [id number] [facility] L[facility]
--- NOTE | 2019-10-22 08:56 | ECHOCS_ITS ---
Reason For Study: CHEST PAIN Procedure This was a 2D Doppler, Color Flow transthoracic echocardiogram. The study was technically difficult. Unable to reposition patient due to pain. Contrast injection was performed. Exam performed portable in patient room. Left Ventricle Mild concentric left ventricular hypertrophy. The estimated ejection fraction is 65 %. Unable to assess diastolic dysfunction due to arrhythmia. No regional wall motion abnormalities noted. Right Ventricle Severely dilated right ventricle. Moderate global right ventricular systolic dysfunction. Atria The left atrium is severely enlarged. The right atrium is severely enlarged. Normal atrial septum. Mitral Valve Moderate diffuse mitral valve thickening. Severe mitral annular calcification extending into the posterior leaflet. Tricuspid Valve Normal tricuspid valve. Moderately severe (3+) tricuspid valve insufficiency. Right ventricular systolic pressure estimated to be 35 mmHg. Aortic Valve Trisinus/trileaflet aortic valve. Immobile noncoronary cusp. Severe diffuse aortic valve thickening. Mild diffuse aortic valve calcification. Moderate restriction of the aortic valve. Moderate aortic stenosis. Peak aortic valve gradient 49 mmHg. Mean aortic valve gradient 26 mmHg. Calculated aortic valve area (continuity equation) is 0.9-1.0 cm2. Pulmonic Valve The pulmonic valve is not well visualized. Great Vessels Normal aortic root. Normal arch. Pericardium/Pleural Trivial pericardial effusion. There are no echocardiographic indications of cardiac tamponade. Medication Diluted definity 2.0ml given slow IV push to enhance endocardial definition. MMode/2D Measurements & Calculations LVIDd: 4.7 cm IVSd: 1.3 cm LVOT diam: 1.8 cm LVIDs: 3.7 cm LVPWd: 0.97 cm RVDd: 4.6 cm FS: 20.0 % LVOT area: 2.6 cm2 Ao root diam: 2.8 cm LAV(MOD-bp): 88.5 ml Aortic Valve Planimetry: 1.3 cm2 LAV(MOD-bp) Indexed: 44.5 ml/m2 LAV(MOD-sp2): 72.8 ml LAV(MOD-sp4): 95.5 ml LA dimension(2D): 4.6 cm LA A4 area: 27.7 cm2 RA A4 area: 27.0 cm2 Doppler Measurements & Calculations MV E max margie: 128.6 cm/sec Ao V2 max: 340.2 cm/sec LV V1 max: 135.9 cm/sec Ao max P.3 mmHg LV V1 max P.4 mmHg Ao V2 mean: 235.7 cm/sec LV V1 mean P.5 mmHg Ao mean P.5 mmHg LV V1 mean: 87.8 cm/sec Ao V2 VTI: 73.7 cm LV V1 VTI: 25.9 cm JOSHUA(I,D): 0.91 cm2 JOSHUA(V,D): 1.0 cm2 SV(LVOT): 67.2 ml PA V2 max: 88.6 cm/sec TR max margie: 209.7 cm/sec TR max P.6 mmHg Interpretation Summary Mild concentric left ventricular hypertrophy. The estimated ejection fraction is 65 %. Unable to assess diastolic dysfunction due to arrhythmia. Severely dilated right ventricle. Moderate global right ventricular systolic dysfunction. The left atrium is severely enlarged. The right atrium is severely enlarged. Moderately severe (3+) tricuspid valve insufficiency. Right ventricular systolic pressure estimated to be 35 mmHg, most likely underestimated. Immobile noncoronary cusp Severe diffuse aortic valve thickening. Moderate restriction of the aortic valve. Moderate to severe aortic stenosis. Peak aortic valve gradient 49 mmHg. Mean aortic valve gradient 26 mmHg. Calculated aortic valve area (continuity equation) is 0.9-1.0 cm2. Trivial pericardial effusion. There are no echocardiographic indications of cardiac tamponade. Compared to echo report dated 05/24/2019, LV function has remained the same, RVSP has decreased from 50 to 35 mmHg, and aortic valve gradient has remained about the same. Patient appears to be in atrial fibrillation. Ordering Physician: Timothy Frye Referring Physician: Davy Coleman Performed By: Pat Torres RDCS, RVT
--- NOTE | 2019-10-22 09:03 | CASEMGMT ---
MARGO called Julissa with [facility] and left her a voice mail letting her know patient is in the hospital. MARGO also called [facility] and left them a message letting them know she is in the hospital. Marylou RAMIREZ MSW
--- NOTE | 2019-10-22 10:38 | MRI_ITS ---
STUDY: MRI BRAIN WITHOUT CONTRAST REASON FOR EXAM: Female, 74 years old. tia, confusion, altered mental status TECHNIQUE: Standardized multiplanar fat and water weighted pulse sequences were obtained. COMPARISON: Head CT dated October 21, 2019 FINDINGS: There is mild cerebral atrophy with widening of the extra-axial spaces and ventricular dilatation. There are a limited number of small white matter hyperintensities, distributed throughout the deep white matter tracts of the cerebral hemispheres, consistent with mild chronic white matter ischemic changes. There is no evidence for recent intracranial ischemia or other cause of cytotoxic edema on diffusion weighted imaging (DWI). Normal T2* images of the brain without demonstrated susceptibility artifact. There is no demonstrated hemosiderin stain. Normal bilateral basal ganglia. Normal thalami. There is no extra-axial fluid accumulation. Normal flow voids within the major intracranial circulation suggesting patency by spin echo criteria. There is enlargement of the sella turcica with increased CSF within the sella and flattening of the pituitary gland consistent with an empty sellar syndrome. Normal infundibular stalk, hypothalamus, and optic chiasm. Normal tectal plate and pineal gland. Normal midbrain, rissa and medulla. Normal cerebellum. Normal basal cisterns. Normal bilateral temporal bones. Normal bilateral internal auditory canals. No demonstrated orbital abnormality, within the constraints of a routine brain study. Normal visualized paranasal sinuses. Normal calvarium and skull base. Normal visualized soft tissue structures. MRI/Brain without Contrast IMPRESSION: Chronic ischemic and involutional changes of the brain, as described above. Electronically Signed: Toribio Rodriguez MD at 18:58 EDT , Service support ,
--- NOTE | 2019-10-22 11:30 | PCM.PN.HOSP ---
Patient Problems: Active and Suspected Problems (Last Reviewed 09/24/19 @ 13:[address] Robyn Pak, ) NSTEMI (non-ST elevated myocardial infarction) (Acute) CAD in [place] artery (Acute) Encephalopathy (Acute) Anemia (Acute) Subjective: Patient seen and examined. She complains of pain on the lateral part of her right breast. She denies fever, chills, chest pain, headache or blurred vision, nausea vomiting or diarrhea or any focal weakness. Patient does seem confused still. It turns out the patient signed papers with palliative care 2 weeks ago. I asked her about this and she said yes she did sign but then asked me what palliative care was. I asked what she thought it was when she was signing the papers and she says she was not sure what it was and that she does not understand palliative care or hospice. She has remained hemodynamically stable. Troponin trended up to a peak of 1.7. Vitals/I&O's: Vital Signs Temp Pulse Resp BP Pulse Ox 97.9 F 80 16 110/52 L 94 10/22/19 08:25 10/22/19 08:25 10/22/19 08:25 10/22/19 08:25 10/22/19 08:25 Oxygen Flow Rate (L/min) 2 Oxygen Delivery Method Nasal Cannula Weight: 202 lb 12.816 oz Body Mass Index (BMI) 33.7 Finger Stick Blood Glucose 99 Intake and Output for Last 24 Hours 10/20/19 10/21/19 10/22/19 23:59 23:59 23:59 Intake Total 460 / 460 Balance 460 / 460 General: Alert, Oriented, though does seem to have some baseline confusion, Cooperative, No apparent distress HEENT: Atraumatic, PERRLA, EOMI, Normocephalic Oral: Dry Mucosa Neck: Supple, No JVD, Negative Carotid Bruits Lungs: No rhonchi, - - decreased breath sounds bibasally, no wheezes or crackles Cardiovascular: Regular rate, Regular Rhythm, Normal S1, Normal S2, No murmurs Abdomen: Bowel Sounds Present, Soft, Non Tender, Distended - positive fluid thrill due to ascitis Extremities: No clubbing, No cyanosis, No edema, Capillary Refill Less than 3 Seconds Skin: No rashes, mild erythema and tenderness on lateral aspect of right breast, and beneath right nipple; area is indurated. No visible discharge from nipple. healing scab beneath right nipple Musculoskeletal: No Tenderness to Palpation of Joints or Extremities Lymphatic: No Cervical, Supraclavicular, or Inguinal Adenopathy Neurological: Cranial nerves II-XII grossly intact, Neuro grossly intact, Motor Exam 5/5 strength throughout Psych/Mental Status: Normal Affect, Appropriate, Alert and oriented to time, place, person, mood and affect Laboratory Results 10/21/19 14:18: Troponin I 1.250 H* 10/21/19 17:10: Troponin I 1.610 H* 10/21/19 20:40: Troponin I 1.730 H* 10/21/19 21:39: POC Glucose 119 H 10/22/19 05:10: WBC 8.3, RBC 3.10 L, Hgb 9.4 L, Hct 32.2 L, MCV 103.9 H, MCH 30.3, MCHC 29.2 L, RDW Std Deviation 64.3 H, RDW Coeff of Susan 17.3 H, Plt Count 185, MPV 9.1, Immature Gran % (Auto) 0.400, Neut % (Auto) 71.1 H, Lymph % (Auto) 19.3, [place] % (Auto) 5.5, Eos % (Auto) 3.1, Baso % (Auto) 0.6, Absolute Neuts (auto) 5.9, Absolute Lymphs (auto) 1.60, Nucleated RBC % 0 10/22/19 05:10: Sodium 135 L, Potassium 3.8, Chloride 97 L, Carbon Dioxide 28.0, Anion Gap 10, BUN 24 H, Creatinine 3.80 H, Estim Creat Clear Calc 11.33, Est GFR (MDRD) Af Amer 15 L, Est GFR (MDRD) Non-Af 12 L, BUN/Creatinine Ratio 6.3 L, Glucose 96, Calcium 8.1 L Diagnostic Data Brain CT 10/21/19 09:16 IMPRESSION: Chronic involutional changes of the brain. Electronically Signed: Eric Mckay, at 11:03 EDT , Service support , Chest X-Ray 10/21/19 10:33 IMPRESSION: Cardiomegaly. Stable mild increased markings at the lung bases slightly more prominent on the left side. Electronically Signed: Eric Mckay, at 11:06 EDT , Service support , Current Medications Acetaminophen (Tylenol) 650 mg PO Q6H PRN PRN Reason: PAIN 1-10/FEVER Last Admin: 10/22/19 05:41 Dose: 650 mg Documented by: Aspirin (Aspirin, Baby) 81 mg PO DAILY@0800 [facility] Last Admin: 10/22/19 08:34 Dose: 81 mg Documented by: Cholecalciferol (Vitamin D (25mcg)) 5,000 unit PO MOWEFR [facility] Last Admin: 10/22/19 08:31 Dose: 5,000 unit Documented by: Clopidogrel Bisulfate (Plavix) 75 mg PO DAILY [facility] Last Admin: 10/22/19 08:35 Dose: 75 mg Documented by: Dextrose (D50w Syringe) 0 gm IV X1 PRN; Protocol PRN Reason: Hypoglycemia Glucagon () 1 mg IM .X1 PRN PRN Reason: Hypoglycemia Heparin Sodium (Porcine) () 2,500 units IV UD PRN PRN Reason: Dialysis Cath Heparin Flush Heparin Sodium (Porcine) (Heparin Na) 5,000 unit SC Q12 [facility] Last Admin: 10/22/19 08:32 Dose: 5,000 unit Documented by: Sodium Chloride () 250 mls @ 15 mls/hr IV .[id number] PRN PRN Reason: Saline Flush Sodium Chloride () 250 mls @ 15 mls/hr IV .[id number] PRN PRN Reason: Additional IVPB Infusion Lactulose (Chronulac, Cephulac) 30 gm PO TID [facility] Last Admin: 10/22/19 05:43 Dose: Not Given Documented by: Melatonin (Melatonin) 5 mg PO QHS [facility] Last Admin: 10/21/19 21:42 Dose: 5 mg Documented by: Midodrine (Proamatine) 10 mg PO TID [facility] Last Admin: 10/22/19 10:46 Dose: 10 mg Documented by: Multivit/Ca Carb/B Cmplx/FA/Prenat (Nephrocaps, Renaphro) 1 capsule PO DAILY [facility] Last Admin: 10/22/19 08:35 Dose: 1 capsule Documented by: Nitroglycerin (Nitrostat) 0.4 mg SUBLINGUAL Q5M PRN PRN Reason: CARDIAC/CHEST PAIN Nystatin (Mycostatin Powder) 1 applic TOPICAL BID [facility]; Protocol Last Admin: 10/22/19 08:32 Dose: 1 applicatio Documented by: Polyethylene Glycol (Miralax) 17 gm PO BID [facility] Last Admin: 10/22/19 08:35 Dose: Not Given Documented by: Pramipexole Dihydrochloride (Mirapex) 0.25 mg PO QHS [facility] Last Admin: 10/21/19 21:43 Dose: 0.25 mg Documented by: Promethazine HCl (Phenergan Tablet) 12.5 mg PO Q6H PRN PRN PRN Reason: NAUSEA Senna/Docusate Sodium (Senokot-S, Sarah-Colace) 2 tablet PO BID [facility] Last Admin: 10/22/19 08:32 Dose: 2 tablet Documented by: Sodium Chloride () 10 ml IV UD PRN PRN Reason: Dialysis Catheter Flush Sodium Chloride () 10 - 40 ml IV UD PRN PRN Reason: SALINE FLUSH STROKE Vital Signs/Narrative: Vital Signs Temp Pulse Resp BP Pulse Ox 10/22/19 08:25 97.9 F 80 16 110/52 L 94 Medical Necessity - Tobacco Use Smoking Status: Never smoker Assessment/Plan All Active Problems (Last Reviewed 09/24/19 @ 13:[address] Robyn Pak, DO) Fecal impaction (Acute) Hematochezia (Acute) Acute on chronic anemia (Acute) Hyperkalemia (Acute) NSTEMI (non-ST elevated myocardial infarction) (Acute) CAD in [place] artery (Acute) Encephalopathy (Acute) Anemia (Acute) 74 y/o admitted with a complaint of confusion, which had resolved by time of review 1. Acute metabolic encephalopathy has improved. EEG pending neurology reviewed patient- think it is a toxic metabolic encephalopathy and unlikely to be CVA or seizures; recommend outpaient formal neurocognitive evaluation fall precautions. PT/OT on board 2. nonstemi initial troponin was 1.25 and peaked at 1.7 last 2D echo in may 2019 showed EF of 55%, with normal LV systolic function and mild to moderate aortic stenosis, and moderate tricuspid valve insufficiency. cardiology on board; on aspirin, statin and plavix as well as beta [place] cardiology recommends MRI to ensure that patient is not having a stroke, before she can undergo cardiac cath. 3. Cellulitis of right breast: will start IV vancomycin to be dosed with dialysis. If symptoms dont improve, will get imaging of the right breast 4. ESRD on hemodialysis: Has hemodialysis Wednesdays. nephrology on board. For dialysis today 5. Ascites due to liver cirrhosis: Had paracentesis 2 days ago. Has paracentesis every 2 weeks. On lactulose. Ammonia was 35. 6. Anemia of chronic disease: Hb is 9.4. stable. 7. Hyperlipidemia and hypertension: On statin. 8. History of A. fib: Currently rate controlled. 9. Type 2 diabetes mellitus: on lantus 11 units qhs DVT prophylaxis: heparin Code status: full code Inpatient E&M: 60714 Subs Hosp L3
--- NOTE | 2019-10-22 12:30 | PCM.CONS.R ---
Consultation - Renal 10/22/19 PCP/ Referring MD: Requesting physician: [] Primary care physician: Dr. Davy Coleman MD Reason for Consultation:: ESRD HD MWF, renal mgmt - History of Present Illness History of Present Illness: The patient is a 74 year old F with ESRD due to diabetes, liver cirrhosis with GI bleed, seen in ER Sunday for abdominal pain. Underwent paracentesis then sent to dialysis afterwards. She returned to ED yesterday morning for altered mental status, screaming nonsense. Currently mental status at baseline. EEG ordered. Seen on dialysis this afternoon after morning assessment. Complains of severe pain in right breast to light touch, indurated. She continues to have abdominal distension with chronic leg swelling with erythema of BLE that is chronic. She has hypotension requiring midodrine with dialysis treatments. She takes pain medications at home but states has not taken much lately. She has no chest pain. Troponin level elevated on admission. She has hx CAD. Constipation with BM today on lactulose. - Allergies Allergies: Allergies lisinopril Allergy (Severe, Verified 10/21/19 09:09) Angioedema nebivolol HCl [From Bystolic] Adverse Reaction (Severe, Verified 10/21/19 09:09) bradycardia BRADYCARDIA - Current Medications Current Medications: Current Medications Acetaminophen (Tylenol) 650 mg PO Q6H PRN PRN Reason: PAIN 1-10/FEVER Last Admin: 10/22/19 05:41 Dose: 650 mg Documented by: Aspirin (Aspirin, Baby) 81 mg PO DAILY@0800 [facility] Last Admin: 10/22/19 08:34 Dose: 81 mg Documented by: Cholecalciferol (Vitamin D (25mcg)) 5,000 unit PO MOWEFR [facility] Last Admin: 10/22/19 08:31 Dose: 5,000 unit Documented by: Clopidogrel Bisulfate (Plavix) 75 mg PO DAILY [facility] Last Admin: 10/22/19 08:35 Dose: 75 mg Documented by: Dextrose (D50w Syringe) 0 gm IV X1 PRN; Protocol PRN Reason: Hypoglycemia Glucagon () 1 mg IM .X1 PRN PRN Reason: Hypoglycemia Heparin Sodium (Porcine) () 2,500 units IV UD PRN PRN Reason: Dialysis Cath Heparin Flush Heparin Sodium (Porcine) (Heparin Na) 5,000 unit SC Q12 [facility] Last Admin: 10/22/19 08:32 Dose: 5,000 unit Documented by: Sodium Chloride () 250 mls @ 15 mls/hr IV .[id number] PRN PRN Reason: Saline Flush Sodium Chloride () 250 mls @ 15 mls/hr IV .[id number] PRN PRN Reason: Additional IVPB Infusion Lactulose (Chronulac, Cephulac) 30 gm PO TID [facility] Last Admin: 10/22/19 05:43 Dose: Not Given Documented by: Melatonin (Melatonin) 5 mg PO QHS [facility] Last Admin: 10/21/19 21:42 Dose: 5 mg Documented by: Midodrine (Proamatine) 10 mg PO TID [facility] Last Admin: 10/22/19 10:46 Dose: 10 mg Documented by: Multivit/Ca Carb/B Cmplx/FA/Prenat (Nephrocaps, Renaphro) 1 capsule PO DAILY [facility] Last Admin: 10/22/19 08:35 Dose: 1 capsule Documented by: Nitroglycerin (Nitrostat) 0.4 mg SUBLINGUAL Q5M PRN PRN Reason: CARDIAC/CHEST PAIN Nystatin (Mycostatin Powder) 1 applic TOPICAL BID [facility]; Protocol Last Admin: 10/22/19 08:32 Dose: 1 applicatio Documented by: Polyethylene Glycol (Miralax) 17 gm PO BID [facility] Last Admin: 10/22/19 08:35 Dose: Not Given Documented by: Pramipexole Dihydrochloride (Mirapex) 0.25 mg PO QHS [facility] Last Admin: 10/21/19 21:43 Dose: 0.25 mg Documented by: Promethazine HCl (Phenergan Tablet) 12.5 mg PO Q6H PRN PRN PRN Reason: NAUSEA Senna/Docusate Sodium (Senokot-S, Sarah-Colace) 2 tablet PO BID [facility] Last Admin: 10/22/19 08:32 Dose: 2 tablet Documented by: Sodium Chloride () 10 ml IV UD PRN PRN Reason: Dialysis Catheter Flush Sodium Chloride () 10 - 40 ml IV UD PRN PRN Reason: SALINE FLUSH - Past Medical History Past Medical History (Chronic Problems): Chronic Problems (Last Reviewed 09/24/19 @ 13:[address] Robyn Pak DO) Cirrhosis of liver with ascites (Chronic) Chronic pain syndrome (Chronic) Chronic narcotic use (Chronic) S/P PTCA (percutaneous transluminal coronary angioplasty) (Chronic) Altered mental status (Chronic) Hypotension (Chronic) on Midodrin History of GI bleed (Chronic) History of non-ST elevation myocardial infarction (NSTEMI) (Chronic 07/05/16) Atherosclerotic heart disease of [place] coronary artery without angina pectoris (Chronic) Stented coronary artery (Chronic) Cutting Balloon and TAMI (3.0X18 mm Xience) Proximal LAD 04/18/2012; Rotational atherectomy to proximal, id and distal RCA with two overlapping 4.0 X 38 Synergy TAMI ([facility] main) Ascites (Chronic) Pancytopenia (Chronic) Other specified peripheral vascular diseases (Chronic) Afib (Chronic) Congenital coronary artery anomaly (Chronic) Bradycardia (Chronic) Suspect sick sinus syndrome Diabetes mellitus, type II (Chronic) Hyperlipidemia (Chronic) Hypothyroidism (Chronic) Anemia in chronic kidney disease (Chronic) Hypertension (Chronic) End stage renal disease on dialysis (Chronic) - Past Surgical History Surgical History: appendectomy, cholecystectomy, hysterectomy, total knee arthroplasty, - - Left upper extremity fistula, back surgery, colon resection with history of diverticulitis, GI bleed, right knee surgery, right total knee replacement, right foot surgery, left knee surgery, left foot surgery, PCI. - Social History Smoking Status: Never smoker - Family History Maternal Family History: Family History (Last Reviewed 09/24/19 @ 14:[address] Robyn Pak DO) Sister Diabetes Heart disease Hypertension Anemia History Items: Cancer - uterine Paternal Family History: Family History (Last Reviewed 09/24/19 @ 14:[address] Robyn Pak DO) Sister Diabetes Heart disease Hypertension Anemia History Items: Cancer Sibling Family History: Family History (Last Reviewed 09/24/19 @ 14:[address] Robyn Pak DO) Sister Diabetes Heart disease Hypertension Anemia History Items: Diabetes Review of Systems Constitutional: Reports: Anorexia. Denies: Chills, Fever Eyes: Denies: Vision Change Gastrointestinal: Reports: Constipation. Denies: Abdominal Pain, Diarrhea, Hematemesis, Hematochezia, Nausea, Melena, Vomiting Skin: Reports: - - tenderness over right lateral breast, induration, chronic erythema BLE due to chronic edema Neurological: Denies: Tremor, Seizures Psychiatric: Reports: Anxiety, Depression Hematologic/ Lymphatic: Reports: Anemia. Denies: Hx of blood clot Patient Problems: Active and Suspected Problems (Last Reviewed 09/24/19 @ 13:[address] Robyn Pak DO) NSTEMI (non-ST elevated myocardial infarction) (Acute) CAD in [place] artery (Acute) Encephalopathy (Acute) Anemia (Acute) - Physical Exam Vitals/I&O's: Vital Signs Temp Pulse Resp BP Pulse Ox 97.9 F 80 16 110/52 L 94 10/22/19 08:25 10/22/19 08:25 10/22/19 08:25 10/22/19 08:25 10/22/19 08:25 Oxygen Flow Rate (L/min) 2 Oxygen Delivery Method Nasal Cannula Weight: 91.989 kg Body Mass Index (BMI) 33.7 Finger Stick Blood Glucose 99 Intake and Output for Last 24 Hours 10/20/19 10/21/19 10/22/19 23:59 23:59 23:59 Intake Total 460 / 460 Balance 460 / 460 General: Alert, Oriented x3, Cooperative, No apparent distress Oral: Dry Mucosa Neck: Supple Lungs: Clear to auscultation Cardiovascular: Regular rate, Murmur Abdomen: Bowel Sounds Present, Soft, Non Tender, Distended, Obese Extremities: Edema Skin: - - erythema BLE chronic, induration, tenderness right lateral breast, swelling Musculoskeletal: Muscle Wasting Neurological: Cranial nerves II-XII grossly intact Psych/Mental Status: Normal Affect, Appropriate, Alert and oriented to time, place, person, mood and affect Laboratory Results 10/21/19 14:18: Troponin I 1.250 H* 10/21/19 17:10: Troponin I 1.610 H* 10/21/19 20:40: Troponin I 1.730 H* 10/21/19 21:39: POC Glucose 119 H 10/22/19 05:10: WBC 8.3, RBC 3.10 L, Hgb 9.4 L, Hct 32.2 L, MCV 103.9 H, MCH 30.3, MCHC 29.2 L, RDW Std Deviation 64.3 H, RDW Coeff of Susan 17.3 H, Plt Count 185, MPV 9.1, Immature Gran % (Auto) 0.400, Neut % (Auto) 71.1 H, Lymph % (Auto) 19.3, [place] % (Auto) 5.5, Eos % (Auto) 3.1, Baso % (Auto) 0.6, Absolute Neuts (auto) 5.9, Absolute Lymphs (auto) 1.60, Nucleated RBC % 0 10/22/19 05:10: Sodium 135 L, Potassium 3.8, Chloride 97 L, Carbon Dioxide 28.0, Anion Gap 10, BUN 24 H, Creatinine 3.80 H, Estim Creat Clear Calc 11.33, Est GFR (MDRD) Af Amer 15 L, Est GFR (MDRD) Non-Af 12 L, BUN/Creatinine Ratio 6.3 L, Glucose 96, Calcium 8.1 L Current Medications Acetaminophen (Tylenol) 650 mg PO Q6H PRN PRN Reason: PAIN 1-10/FEVER Last Admin: 10/22/19 05:41 Dose: 650 mg Documented by: Aspirin (Aspirin, Baby) 81 mg PO DAILY@0800 [facility] Last Admin: 10/22/19 08:34 Dose: 81 mg Documented by: Cholecalciferol (Vitamin D (25mcg)) 5,000 unit PO MOWEFR [facility] Last Admin: 10/22/19 08:31 Dose: 5,000 unit Documented by: Clopidogrel Bisulfate (Plavix) 75 mg PO DAILY [facility] Last Admin: 10/22/19 08:35 Dose: 75 mg Documented by: Dextrose (D50w Syringe) 0 gm IV X1 PRN; Protocol PRN Reason: Hypoglycemia Glucagon () 1 mg IM .X1 PRN PRN Reason: Hypoglycemia Heparin Sodium (Porcine) () 2,500 units IV UD PRN PRN Reason: Dialysis Cath Heparin Flush Heparin Sodium (Porcine) (Heparin Na) 5,000 unit SC Q12 [facility] Last Admin: 10/22/19 08:32 Dose: 5,000 unit Documented by: Sodium Chloride () 250 mls @ 15 mls/hr IV .[id number] PRN PRN Reason: Saline Flush Sodium Chloride () 250 mls @ 15 mls/hr IV .[id number] PRN PRN Reason: Additional IVPB Infusion Lactulose (Chronulac, Cephulac) 30 gm PO TID [facility] Last Admin: 10/22/19 05:43 Dose: Not Given Documented by: Melatonin (Melatonin) 5 mg PO QHS [facility] Last Admin: 10/21/19 21:42 Dose: 5 mg Documented by: Midodrine (Proamatine) 10 mg PO TID [facility] Last Admin: 10/22/19 10:46 Dose: 10 mg Documented by: Multivit/Ca Carb/B Cmplx/FA/Prenat (Nephrocaps, Renaphro) 1 capsule PO DAILY [facility] Last Admin: 10/22/19 08:35 Dose: 1 capsule Documented by: Nitroglycerin (Nitrostat) 0.4 mg SUBLINGUAL Q5M PRN PRN Reason: CARDIAC/CHEST PAIN Nystatin (Mycostatin Powder) 1 applic TOPICAL BID [facility]; Protocol Last Admin: 10/22/19 08:32 Dose: 1 applicatio Documented by: Polyethylene Glycol (Miralax) 17 gm PO BID [facility] Last Admin: 10/22/19 08:35 Dose: Not Given Documented by: Pramipexole Dihydrochloride (Mirapex) 0.25 mg PO QHS [facility] Last Admin: 10/21/19 21:43 Dose: 0.25 mg Documented by: Promethazine HCl (Phenergan Tablet) 12.5 mg PO Q6H PRN PRN PRN Reason: NAUSEA Senna/Docusate Sodium (Senokot-S, Sarah-Colace) 2 tablet PO BID [facility] Last Admin: 10/22/19 08:32 Dose: 2 tablet Documented by: Sodium Chloride () 10 ml IV UD PRN PRN Reason: Dialysis Catheter Flush Sodium Chloride () 10 - 40 ml IV UD PRN PRN Reason: SALINE FLUSH Assessment/Plan All Active Problems (Last Reviewed 09/24/19 @ 13:[address] Robyn Pak, DO) Fecal impaction (Acute) Hematochezia (Acute) Acute on chronic anemia (Acute) Hyperkalemia (Acute) NSTEMI (non-ST elevated myocardial infarction) (Acute) CAD in [place] artery (Acute) Encephalopathy (Acute) Anemia (Acute) 1. ESRD HD MWF. Undergoing dialysis with low BP. Will limit fluid removal. Recent paracentesis Sunday 2. Liver cirrhosis with ascites s/p frequent paracentesis 3. Hx GI bleed 4. Hypotension midodrine 5. DM2 6. Anemia nolan on dialysis 7. Metabolic encephalopathy EEG ordered 8. +troponin hx CAD
--- NOTE | 2019-10-22 13:45 | CASEMGMT ---
Readmission chart review: See CR from 09/25/2019 completed by this RN CM. Pt was last here 09/23-09/27/2019 for weakness, rectal impaction and pt was sent home with resumption of HHC at that time with family. Pt to ED 10/20/2019 for Abd and had a paracentesis which removed 4liters of fluid then pt was discharged to dialysis where they removed 3liters of fluid. Pt then returned to ED 10/21/2019 for confusion, difficulty speaking and admitted for encephalopathy, TIA and then was later dx with NSTEMI with a troponin of 1.25. Pt is still current with [facility] for SN, PT/OT and did agree to palliative several weeks ago. CM to follow for any further discharge planning/needs. [place] JESUS CM
--- NOTE | 2019-10-22 15:15 | PCM.RX.CS ---
Consult Pharmacy has been consulted to manage selected antiobiotic: Vancomycin Type of Consult: New start Labs: Sodium 135 mmol/L (136-145) L 10/22/19 05:10 Potassium 3.8 mmol/L (3.5-5.1) 10/22/19 05:10 Chloride 97 mmol/L (98-107) L 10/22/19 05:10 Carbon Dioxide 28.0 mmol/L (21.0-32.0) 10/22/19 05:10 Anion Gap 10 (5-15) 10/22/19 05:10 BUN 24 mg/dL (7-18) H 10/22/19 05:10 Creatinine 3.80 mg/dL (0.55-1.02) H 10/22/19 05:10 Est GFR (MDRD) Af Amer 15 mL/min (>60) L 10/22/19 05:10 Est GFR (MDRD) Non-Af 12 mL/min (>60) L 10/22/19 05:10 BUN/Creatinine Ratio 6.3 RATIO (10-20) L 10/22/19 05:10 Glucose 96 mg/dL (74-106) 10/22/19 05:10 Goal Trough: 15-20 mcg/mL Pharmacy Plan for Drug Dosing: NEW START IV VANCOMYCIN Consulting Physician: Reema Indication: Unknown indication Goal Trough: 15-20 SrCr: Hemodialysis patient M/W/F CrCl: HD Comments: Verified with pt RN, patient gets hemodialysis on Sunday/Sunday/Sunday Vancomcyin Dose: 1500mg IV x1 after HD today 10/21 then 750mg IV x1 / after HD Pending Level: 10/27/19 with AM labs Pharmacy Service will continue to monitor and adjust dosing as required.
--- NOTE | 2019-10-22 15:20 | DIALYSIS ---
Hemodialysis x 3.5 hours. -1000ml UF. Stable t/o tx. Hemostasis to LUAVF x 10 mins. Gauze/tape applied. Report given to James JESUS
[2019-10-22] MEDS: MELATONIN 10 MG TABLET 5 MG PO (20:41)
[2019-10-22] MEDS: Pramipexole Di-HCl 0.25 MG Tablet PO (20:41)
[2019-10-22] MEDS: 0.9% Saline Lock 10 ML Syringe IV (20:44)
--- NOTE | 2019-10-22 21:00 | NURSING ---
PATIENT NPO TODAY FOR HEART CATH WHICH WAS NOT DONE, GAVE PATIENT A MEAL AT THIS TIME AND WILL MAKE NPO AFTER MIDNIGHT FOR POSSIBLE HEART CATH IN AM.
[2019-10-23] VITALS (12 sets, daily range): BP systolic 119–159; BP diastolic 58–72; PULSE 75–109; RESP 18; TEMP 36.3–36.9; O2SAT 95–100
[2019-10-23] MEDS: Acetaminophen 325 MG Tablet 650 MG PO ×3 (00:46→16:23)
[2019-10-23] MEDS: Midodrine HCl 5 MG Tablet 10 MG PO ×3 (04:50→23:18)
[2019-10-23] MEDS: Clopidogrel Bisulfate 75 MG Tablet PO (04:50)
[2019-10-23] MEDS: Aspirin 81 MG TAB.CHEW PO (04:50)
[2019-10-23 05:32] LABS: Absolute Lymphocyte Count 1.45 X10^3/uL (0.83-4.51); Absolute Neutrophil Count 5.6 X10^3/uL (2.0-7.7); Basophil# 0.06 X10^3/uL; Basophil% 0.8 % (0-1); Eosinophils% 2.5 % (0-5); Hematocrit 34.1 % (37-47); Hemoglobin 10.2 g/dL (12.0-15.0); Lymphocyte # 1.45 X10^3/ul (4.0); Lymphocyte % 18.3 % (19-41); Mean Corp Hgb Conc 29.9 g/dL (32-36); Mean Corpuscular Hgb 30.4 pg (27.0-32.0); Mean Corpuscular Volume 101.8 fL (81-99); Mean Platelet Vol. 9.2 fl (6.2-12.0); Monocyte# 0.55 X10^3/uL; Monocyte% 6.9 % (0-10); NRBC Flagged by Analyzer 0 % (0-5); Neutrophil # 5.64 X10^3/uL (2.7-7.7); Neutrophil % 71.1 % (47-70); POSITIVE COUNT YES; Platelet Count 196 K/mm3 (150-450); RBC Distribution Width CV 17.3 % (11.6-14.6); RBC Distribution Width SD 64.2 fl (35.1-43.9); Red Blood Count 3.35 M/mm3 (4.2-5.4); White Blood Count 7.9 K/mm3 (4.4-11.0)
[2019-10-23 05:33] LABS: Differential Indicated SCAN CRITERIA MET
[2019-10-23 06:04] LABS: Anion Gap 10 (5-15); BUN 15 mg/dL (7-18); BUN/Creat Ratio 5.5 RATIO (10-20); Calcium,Total 8.4 mg/dL (8.5-10.1); Chloride 100 mmol/L (98-107); Creatinine, Serum 2.73 mg/dL (0.55-1.02); EST Glomerular Filtration Rate 18 mL/min (>60); Est Glom Filt Rate - Afr Amer 22 mL/min (>60); Estimated Creatinine Clearance 15.78 ml/min; Glucose 55 mg/dL (74-106); Potassium 4.5 mmol/L (3.5-5.1); Sodium Level 132 mmol/L (136-145)
[2019-10-23 06:11] LABS: Differential Comment SCANNED
[2019-10-23] MEDS: Morphine 2 MG/ML Syringe IV ×2 (06:18→22:45)
[2019-10-23] MEDS: 0.9% Saline Lock 10 ML Syringe IV ×2 (06:19→09:59)
[2019-10-23 08:40] LABS: Bedside Glucose 70 mg/dL (70-110)
[2019-10-23 08:40] LABS: Bedside Glucose 39 mg/dL (70-110)
[2019-10-23 08:40] LABS: Bedside Glucose 54 mg/dL (70-110)
--- NOTE | 2019-10-23 08:55 | PN.RENAL_ITS ---
Patient Problems: Active and Suspected Problems (Last Reviewed 09/24/19 @ 13:[address] Robyn Pak DO) NSTEMI (non-ST elevated myocardial infarction) (Acute) CAD in [place] artery (Acute) Encephalopathy (Acute) Anemia (Acute) Subjective: complain of rt breast pain, abdominal discomfort around paracentesis site. Echo in progress. Low blood sugars. Mental status at baseline - Physical Exam Vitals/I&O's: Vital Signs Temp Pulse Resp BP Pulse Ox 98 F 76 18 124/62 H 99 10/23/19 04:50 10/23/19 07:04 10/23/19 04:50 10/23/19 06:17 10/23/19 07:45 Oxygen Flow Rate (L/min) 2 Oxygen Delivery Method Nasal Cannula Weight: 88.1 kg Body Mass Index (BMI) 33.7 Finger Stick Blood Glucose 99 Intake and Output for Last 24 Hours 10/21/19 10/22/19 10/23/19 23:59 23:59 23:59 Intake Total 460 / 460 244.17 / 484.17 815.83 / 815.83 Output Total 1999 Balance 460 / 460 -1755.83 / -1515.83 815.83 / 815.83 General: Alert, Oriented x3 Lungs: Clear to auscultation Cardiovascular: Regular rate, Murmur Abdomen: Bowel Sounds Present, Soft, Obese, Tender - RLQ Psych/Mental Status: Normal Affect, Appropriate, Alert and oriented to time, place, person, mood and affect Laboratory Results 10/23/19 05:08: WBC 7.9, RBC 3.35 L, Hgb 10.2 L, Hct 34.1 L, MCV 101.8 H, MCH 30.4, MCHC 29.9 L, RDW Std Deviation 64.2 H, RDW Coeff of Susan 17.3 H, Plt Count 196, MPV 9.2, Immature Gran % (Auto) 0.400, Neut % (Auto) 71.1 H, Lymph % (Auto) 18.3 L, [place] % (Auto) 6.9, Eos % (Auto) 2.5, Baso % (Auto) 0.8, Absolute Neuts (auto) 5.6, Absolute Lymphs (auto) 1.45, Nucleated RBC % 0, Differential Comment SCANNED 10/23/19 05:08: Sodium 132 L, Potassium 4.5, Chloride 100, Carbon Dioxide 22.0, Anion Gap 10, BUN 15, Creatinine 2.73 H, Estim Creat Clear Calc 15.78, Est GFR (MDRD) Af Amer 22 L, Est GFR (MDRD) Non-Af 18 L, BUN/Creatinine Ratio 5.5 L, Glucose 55 L, Calcium 8.4 L 10/23/19 07:39: POC Glucose 39 L* 10/23/19 08:01: POC Glucose 54 L 10/23/19 08:34: POC Glucose 70 Current Medications Acetaminophen (Tylenol) 650 mg PO Q6H PRN PRN Reason: PAIN 1-10/FEVER Last Admin: 10/23/19 00:46 Dose: 650 mg Documented by: Aspirin (Aspirin, Baby) 81 mg PO DAILY@0800 [facility] Last Admin: 10/23/19 04:50 Dose: 81 mg Documented by: Cholecalciferol (Vitamin D (25mcg)) 5,000 unit PO MOWEFR [facility] Last Admin: 10/22/19 08:31 Dose: 5,000 unit Documented by: Clopidogrel Bisulfate (Plavix) 75 mg PO DAILY [facility] Last Admin: 10/23/19 04:50 Dose: 75 mg Documented by: Dextrose (D50w Syringe) 0 gm IV X1 PRN; Protocol PRN Reason: Hypoglycemia Glucagon () 1 mg IM .X1 PRN PRN Reason: Hypoglycemia Heparin Sodium (Porcine) () 2,500 units IV UD PRN PRN Reason: Dialysis Cath Heparin Flush Heparin Sodium (Porcine) (Heparin Na) 5,000 unit SC Q12 [facility] Last Admin: 10/22/19 20:40 Dose: 5,000 unit Documented by: Sodium Chloride () 250 mls @ 15 mls/hr IV .[id number] PRN PRN Reason: Saline Flush Last Infusion: 10/22/19 20:44 Dose: 0 mls/hr Documented by: Sodium Chloride () 250 mls @ 15 mls/hr IV .[id number] PRN PRN Reason: Additional IVPB Infusion Vancomycin IV Pharmacy to Dose (1 ea/ Sodium Chloride) 500 mls @ 250 mls/hr IV PRN PRN; Protocol PRN Reason: Rx to Dose Vancomycin HCl 750 mg/ Sodium (Chloride) 265 mls @ 250 mls/hr IV X1 ONE Stop: 10/24/19 22:03 Lactulose (Chronulac, Cephulac) 30 gm PO TID [facility] Last Admin: 10/23/19 04:50 Dose: Not Given Documented by: Melatonin (Melatonin) 5 mg PO QHS [facility] Last Admin: 10/22/19 20:41 Dose: 5 mg Documented by: Midodrine (Proamatine) 10 mg PO TID [facility] Last Admin: 10/23/19 04:50 Dose: 10 mg Documented by: Multivit/Ca Carb/B Cmplx/FA/Prenat (Nephrocaps, Renaphro) 1 capsule PO DAILY [facility] Last Admin: 10/22/19 08:35 Dose: 1 capsule Documented by: Nitroglycerin (Nitrostat) 0.4 mg SUBLINGUAL Q5M PRN PRN Reason: CARDIAC/CHEST PAIN Nystatin (Mycostatin Powder) 1 applic TOPICAL BID [facility]; Protocol Last Admin: 10/22/19 20:43 Dose: Not Given Documented by: Polyethylene Glycol (Miralax) 17 gm PO BID [facility] Last Admin: 10/22/19 20:41 Dose: Not Given Documented by: Pramipexole Dihydrochloride (Mirapex) 0.25 mg PO QHS [facility] Last Admin: 10/22/19 20:41 Dose: 0.25 mg Documented by: Promethazine HCl (Phenergan Tablet) 12.5 mg PO Q6H PRN PRN PRN Reason: NAUSEA Senna/Docusate Sodium (Senokot-S, Sarah-Colace) 2 tablet PO BID [facility] Last Admin: 10/22/19 20:45 Dose: Not Given Documented by: Sodium Chloride () 10 ml IV UD PRN PRN Reason: Dialysis Catheter Flush Last Admin: 10/23/19 06:19 Dose: 10 ml Documented by: Sodium Chloride () 10 - 40 ml IV UD PRN PRN Reason: SALINE FLUSH Medical Necessity - Tobacco Use Smoking Status: Never smoker Assessment/Plan All Active Problems (Last Reviewed 09/24/19 @ 13:[address] Robyn Pak DO) Fecal impaction (Acute) Hematochezia (Acute) Acute on chronic anemia (Acute) Hyperkalemia (Acute) NSTEMI (non-ST elevated myocardial infarction) (Acute) CAD in [place] artery (Acute) Encephalopathy (Acute) Anemia (Acute) 1. ESRD HD MWF. 2. Liver cirrhosis with ascites s/p frequent paracentesis 3. Hx GI bleed 4. Hypotension midodrine
--- NOTE | 2019-10-23 09:12 | PN.CARD_ITS ---
Subjectve: Patient seen and examined this morning. Telemetry shows atrial fibrillation with controlled ventricular response. No chest pain. Echocardiogram in progress which shows minimal pericardial effusion, intact LV function. Patient has significant RV enlargement, with final results pending. Objective: Vital Signs Temp Pulse Resp BP Pulse Ox 98 F 76 18 124/62 H 99 10/23/19 04:50 10/23/19 07:04 10/23/19 04:50 10/23/19 06:17 10/23/19 07:45 Oxygen Flow Rate (L/min) 2 Oxygen Delivery Method Nasal Cannula Weight: 194 lb 3.636 oz Body Mass Index (BMI) 33.7 Finger Stick Blood Glucose 99 Intake and Output for Last 24 Hours 10/21/19 10/22/19 10/23/19 23:59 23:59 23:59 Intake Total 460 / 460 244.17 / 484.17 815.83 / 815.83 Output Total 1999 / 1999 Balance 460 / 460 -1755.83 / -1515.83 815.83 / 815.83 General: Awake, Alert, Oriented x 3 HEENT: PERRL, EOMI, Sclera Non Icteric Neck: Supple, Good ROM, No Lymph Node Enlargement Lungs: Clear to auscultation Cardiovascular: Irregular Rhythm, Normal S2, No Rubs, No Gallops Murmur Murmur: Grade 2/6, Mid Systolic, LLSB Vascular: No Carotid Bruits, Normal Femoral Pulses, Normal Radial Pulses, Normal Dorsalis Pedal Pulse, Normal Posterior Tibial Pulses Abdomen: Bowel Sounds Present, Soft, Non Tender, No HSM, No Organomegaly Extremities: No Cyanosis, No Clubbing, No edema Neurological: No Focal Motor or Sensory Deficit 10/23/19 05:08: WBC 7.9, RBC 3.35 L, Hgb 10.2 L, Hct 34.1 L, MCV 101.8 H, MCH 30.4, MCHC 29.9 L, Plt Count 196, MPV 9.2, Immature Gran % (Auto) 0.400, Neut % (Auto) 71.1 H, Lymph % (Auto) 18.3 L, [place] % (Auto) 6.9, Eos % (Auto) 2.5, Baso % (Auto) 0.8, Absolute Neuts (auto) 5.6, Nucleated RBC % 0 10/23/19 05:08: Sodium 132 L, Potassium 4.5, Chloride 100, Carbon Dioxide 22.0, Anion Gap 10, BUN 15, Creatinine 2.73 H, Est GFR (MDRD) Af Amer 22 L, Est GFR (MDRD) Non-Af 18 L, BUN/Creatinine Ratio 5.5 L, Glucose 55 L, Calcium 8.4 L Rhythm: EKG: ECHO: Stress Test: Cardiac Cath: PCI: CT Surgery: Holter monitor: EPS: PPM: CXR: Chest CT Scan: Medical Necessity - Tobacco Use Smoking Status: Never smoker Assessment/Plan 1. Abnormal troponins: I am unsure what to make of the patient's abnormal troponins, although she has had some chest pressure while she is on dialysis recently. Patient's primary complaint was mental status changes, and although her CT scan was negative for overt CVA, she may have had a TIA as she is in atrial fibrillation on no anticoagulation therapy. Tele-neurology was consulted yesterday, and recommended an EEG. EEG pending. I recommended that we hold off on diagnostic coronary catheterization at this time until we can better figure out the source of her mental status changes. I would recommend obtaining a urine analysis, to determine if she has a clean dusting urinary tract infection, as well as an MRI to determine if she has had a TIA or CVA that was not detectable by CT scan. Patient did have a slightly elevated ammonia level due to her cirrhosis with recurrent ascites and paracentesis. If the patient has had a TIA or CVA, I would not recommend diagnostic catheterization at this time as she is essentially asymptomatic. The patient has had complex coronary anatomy and required rotablation therapy of her right coronary artery and has a highly calcified anomalous left circumflex artery. She has had previous stenting to her LAD, and her previous catheterization most recently showed widely patent LAD stents. If however the patient does not have any significant TIA or CVA, I would recommend proceeding with left heart catheterization to evaluate her troponins. This may be done tomorrow, Sunday. In the meantime will continue baby aspirin and Plavix. 2. Atrial fibrillation: If the patient was found to have a TIA/CVA, she will require anticoagulation therapy given her atrial fibrillation. This would be superimposed on her baby aspirin and Plavix. 3. Hyperlipidemia: Recommend obtaining a fasting blood profile. 4. Thank you very much for the opportunity to participate in the cardiac care of your patient. Awaiting results of neurology evaluation, and patient may proceed with dialysis today. If the patient has angina during dialysis today, we will proceed with left heart catheterization tomorrow morning. Inpatient E&M: [id number] Subs Hosp L2
[2019-10-23] MEDS: Nystatin Powder 15gm Bottle 1 APPLIC TOPICAL ×2 (09:52→23:19)
[2019-10-23] MEDS: Folic Acid/Vitamin B Comp W-C 1 Capsule 1 CAP PO (09:53)
[2019-10-23 10:16] LABS: Bedside Glucose 86 mg/dL (70-110)
[2019-10-23 12:00] LABS: Bedside Glucose 102 mg/dL (70-110)
--- NOTE | 2019-10-23 12:11 | CASEMGMT ---
Social Work SW met with pt in room and attempted to speak with her about discharge plan. Pt is sitting in chair with eyes closed. Pt very groggy and unable to hold conversation with sr. social media & mobile manager. SW will continue to follow for discharge planning. FELIPA Spivey
--- NOTE | 2019-10-23 13:44 | PN_ITS ---
Patient Problems: Active and Suspected Problems (Last Reviewed 09/24/19 @ 13:[address] Robyn Pak, DO) NSTEMI (non-ST elevated myocardial infarction) (Acute) CAD in [place] artery (Acute) Encephalopathy (Acute) Anemia (Acute) Subjective: Patient seen and examined. She says she felt well today and had no complaints. She had complained about right breast pain yesterday and I inquired about it today. Patient told me that she does remember ever having any breast pain and does not know what I am talking about. She denied any chest pain, palpitations, dizziness, nausea or vomiting. Patient says she did not know whether she wanted to have a cath or not and was not sure she really needed 1 and wanted to talk to cardiology before deciding whether she would do a cath or not. Labs and vitals reviewed. She has remained hemodynamically stable. She was noted to have bright red bleeding per rectum this afternoon. She denied any lightheadedness or dizziness or palpitations. Vitals/I&O's: Vital Signs Temp Pulse Resp BP Pulse Ox 97.8 F 81 18 119/58 L 97 10/23/19 13:04 10/23/19 13:04 10/23/19 13:04 10/23/19 13:04 10/23/19 13:04 Oxygen Flow Rate (L/min) 2 Oxygen Delivery Method Nasal Cannula Weight: 194 lb 3.636 oz Body Mass Index (BMI) 33.7 Finger Stick Blood Glucose 99 Intake and Output for Last 24 Hours 10/21/19 10/22/19 10/23/19 23:59 23:59 23:59 Intake Total 460 / 460 244.17 / 484.17 1055.83 / 1055.83 Output Total 1999 Balance 460 / 460 -1755.83 / -1515.83 1055.83 / 1055.83 General: Alert, Oriented, though does seem to have some baseline confusion, Cooperative, No apparent distress HEENT: Atraumatic, PERRLA, EOMI, Normocephalic Oral: Dry Mucosa Neck: Supple, No JVD, Negative Carotid Bruits Lungs: No rhonchi, - - decreased breath sounds bibasally, no wheezes or crackles Cardiovascular: Regular rate, Regular Rhythm, Normal S1, Normal S2, No murmurs Abdomen: Bowel Sounds Present, Soft, Non Tender, Distended - positive fluid thrill due to ascitis Extremities: No clubbing, No cyanosis, No edema, Capillary Refill Less than 3 Seconds Skin: No rashes, mild erythema and tenderness on lateral aspect of right breast, and beneath right nipple; area is indurated. No visible discharge from nipple. healing scab beneath right nipple Musculoskeletal: No Tenderness to Palpation of Joints or Extremities Lymphatic: No Cervical, Supraclavicular, or Inguinal Adenopathy Neurological: Cranial nerves II-XII grossly intact, Neuro grossly intact, Motor Exam 5/5 strength throughout Psych/Mental Status: Normal Affect, Appropriate, Alert and oriented to time, place, person, mood and affect Laboratory Results 10/23/19 05:08: WBC 7.9, RBC 3.35 L, Hgb 10.2 L, Hct 34.1 L, MCV 101.8 H, MCH 30.4, MCHC 29.9 L, RDW Std Deviation 64.2 H, RDW Coeff of Susan 17.3 H, Plt Count 196, MPV 9.2, Immature Gran % (Auto) 0.400, Neut % (Auto) 71.1 H, Lymph % (Auto) 18.3 L, [place] % (Auto) 6.9, Eos % (Auto) 2.5, Baso % (Auto) 0.8, Absolute Neuts (auto) 5.6, Absolute Lymphs (auto) 1.45, Nucleated RBC % 0, Differential Comment SCANNED 10/23/19 05:08: Sodium 132 L, Potassium 4.5, Chloride 100, Carbon Dioxide 22.0, Anion Gap 10, BUN 15, Creatinine 2.73 H, Estim Creat Clear Calc 15.78, Est GFR (MDRD) Af Amer 22 L, Est GFR (MDRD) Non-Af 18 L, BUN/Creatinine Ratio 5.5 L, Glucose 55 L, Calcium 8.4 L 10/23/19 07:39: POC Glucose 39 L* 10/23/19 08:01: POC Glucose 54 L 10/23/19 08:34: POC Glucose 70 10/23/19 09:36: POC Glucose 86 10/23/19 11:51: POC Glucose [address] 10/21/19 09:16 IMPRESSION: Chronic involutional changes of the brain. Electronically Signed: Eric Mckay, at 11:03 EDT , Service support , Chest X-Ray 10/21/19 10:33 IMPRESSION: Cardiomegaly. Stable mild increased markings at the lung bases slightly more prominent on the left side. Electronically Signed: Eric Nely, at 11:06 EDT , Service support , Brain MRI 10/22/19 10:38 IMPRESSION: Chronic ischemic and involutional changes of the brain, as described above. Electronically Signed: Toribio Rodriguez MD at 18:58 EDT , Service support , Current Medications Acetaminophen (Tylenol) 650 mg PO Q6H PRN PRN Reason: PAIN 1-10/FEVER Last Admin: 10/23/19 10:06 Dose: 650 mg Documented by: Cholecalciferol (Vitamin D (25mcg)) 5,000 unit PO MOWEFR [facility] Last Admin: 10/22/19 08:31 Dose: 5,000 unit Documented by: Dextrose (D50w Syringe) 0 gm IV X1 PRN; Protocol PRN Reason: Hypoglycemia Glucagon () 1 mg IM .X1 PRN PRN Reason: Hypoglycemia Heparin Sodium (Porcine) () 2,500 units IV UD PRN PRN Reason: Dialysis Cath Heparin Flush Sodium Chloride () 250 mls @ 15 mls/hr IV .[id number] PRN PRN Reason: Saline Flush Last Infusion: 10/22/19 20:44 Dose: 0 mls/hr Documented by: Sodium Chloride () 250 mls @ 15 mls/hr IV .[id number] PRN PRN Reason: Additional IVPB Infusion Vancomycin IV Pharmacy to Dose (1 ea/ Sodium Chloride) 500 mls @ 250 mls/hr IV PRN PRN; Protocol PRN Reason: Rx to Dose Vancomycin HCl 750 mg/ Sodium (Chloride) 265 mls @ 250 mls/hr IV X1 ONE Stop: 10/24/19 22:03 Dextrose () 1,000 mls @ 60 mls/hr IV .[id number] [facility] Stop: 10/24/19 02:04 Last Admin: 10/23/19 09:54 Dose: 60 mls/hr Documented by: Lactulose (Chronulac, Cephulac) 30 gm PO TID [facility] Last Admin: 10/23/19 13:09 Dose: Not Given Documented by: Melatonin (Melatonin) 5 mg PO QHS [facility] Last Admin: 10/22/19 20:41 Dose: 5 mg Documented by: Midodrine (Proamatine) 10 mg PO TID [facility] Last Admin: 10/23/19 13:09 Dose: 10 mg Documented by: Multivit/Ca Carb/B Cmplx/FA/Prenat (Nephrocaps, Renaphro) 1 capsule PO DAILY [facility] Last Admin: 10/23/19 09:53 Dose: 1 capsule Documented by: Nitroglycerin (Nitrostat) 0.4 mg SUBLINGUAL Q5M PRN PRN Reason: CARDIAC/CHEST PAIN Nystatin (Mycostatin Powder) 1 applic TOPICAL BID [facility]; Protocol Last Admin: 10/23/19 09:52 Dose: 1 applicatio Documented by: Polyethylene Glycol (Miralax) 17 gm PO BID [facility] Last Admin: 10/23/19 09:51 Dose: Not Given Documented by: Pramipexole Dihydrochloride (Mirapex) 0.25 mg PO QHS [facility] Last Admin: 10/22/19 20:41 Dose: 0.25 mg Documented by: Promethazine HCl (Phenergan Tablet) 12.5 mg PO Q6H PRN PRN PRN Reason: NAUSEA Senna/Docusate Sodium (Senokot-S, Sarah-Colace) 2 tablet PO BID [facility] Last Admin: 10/23/19 09:52 Dose: Not Given Documented by: Sodium Chloride () 10 ml IV UD PRN PRN Reason: Dialysis Catheter Flush Last Admin: 10/23/19 09:59 Dose: 10 ml Documented by: Sodium Chloride () 10 - 40 ml IV UD PRN PRN Reason: SALINE FLUSH STROKE Vital Signs/Narrative: Vital Signs Temp Pulse Resp BP Pulse Ox 10/23/19 13:04 97.8 F 81 18 119/58 L 97 Medical Necessity - Tobacco Use Smoking Status: Never smoker Assessment/Plan All Active Problems (Last Reviewed 09/24/19 @ 13:[address] Robyn Pak, ) Fecal impaction (Acute) Hematochezia (Acute) Acute on chronic anemia (Acute) Hyperkalemia (Acute) NSTEMI (non-ST elevated myocardial infarction) (Acute) CAD in [place] artery (Acute) Encephalopathy (Acute) Anemia (Acute) 74 y/o admitted with a complaint of confusion, which had resolved by time of review 1. Acute metabolic encephalopathy * resolved. patient still does have some baseline occasional confusion, but has remained largely alert and oriented * EEG showed abnormal waking EEG with diffuse slowing suggestive of an encephalopathy ie metabolic, toxic and anoxic. * neurology reviewed patient- think it is a toxic metabolic encephalopathy and unlikely to be CVA or seizures; recommend outpaient formal neurocognitive evaluation * fall precautions. PT/OT on board * CT and MRI of the brain were negative for stroke. * 2. nonstemi * initial troponin was 1.25 and peaked at 1.7 * last 2D echo in may 2019 showed EF of 55%, with normal LV systolic function and mild to moderate aortic stenosis, and moderate tricuspid valve insufficiency. * cardiology on board; on aspirin, statin and plavix as well as beta morelia. aspirin and plavix held o/a of rectal bleed * 3. Cellulitis of right breast: * area is still firm and indurated. * On IV vancomycin, dosed with dialysis. has no leucocytosis * If it doesnt improve by tomorrow, will get plastic surgery consult and get imaging of the breast. * 4. rectal bleeding * Patient started having rectal bleeding this afternoon. Bleeding was bright red. Will hold aspirin and Plavix and dc heparin * General surgery consulted. * Patient did have EGD and colonoscopy in March 2019 also for rectal bleeding but this was negative. * PT/INR ordered * 5. ESRD on hemodialysis: Has hemodialysis Wednesdays. nephrology on board. 6. Ascites due to liver cirrhosis: Had paracentesis this week. Has paracentesis every 2 weeks. On lactulose. 7. Anemia of chronic disease: Hb is 10.2. stable. 8. Hyperlipidemia and hypertension: On statin. 9. History of A. fib: Currently rate controlled. 10. Type 2 diabetes mellitus: * on lantus 11 units qhs * she was hypoglycemic this morning, though asymptomatic. will hold lantus and start on D5W @ 50cc/hr x 1 bag * hold insulin * ISS. Accuchecks ACHS DVT prophylaxis: SCDs; heparin on hold Code status: full code Inpatient E&M: 44177 Subs Hosp L3
[2019-10-23 15:06] LABS: Prothrombin Time Fingerstick 18.9 SEC (11.9-14.4)
--- NOTE | 2019-10-23 16:15 | PCM.CONS.GEN ---
Problem List (1) Hematochezia Status: Acute Reason for Consult Date of Consultation: 10/23/19 History of Present Illness: The patient is a 74 year old F with an extensive past medical history as outlined. She was admitted through the ED on 10/21/2019 with a complaint of confusion and altered mental status. Patient states she woke up screaming at the top of her head and kept saying things like get me out of here I cannot get out of here. She thinks her confusion lasted about 30 minutes. Per discussion with ED doctor, patient had told him that at the time she woke up confused, she knew what she wanted to say but felt like she could just not get it out. However during my review with patient, patient told me that she was screaming out loud and knew that what she was saying did not make sense but she could not stop herself. I emphatically asked patient if she felt like she could not get her words out and she said she could get her words out but she just knew that it was not making much sense. Symptoms resolved subsequently. Patient was seen in the ED just 1 day prior to this admission with confusion and had paracentesis done with removal of 4 L of fluid. She then went to the dialysis center and had removal of 3 L of fluid. She denied any fever, chills, cough or chest pain, shortness of breath, nausea vomiting, abdominal pain or diarrhea. Patient has had repeated admissions for hypotension due to dialysis and paracentesis as well as had similar acute metabolic encephalopathy. She was here in August 2019 with similar complaints and had a full work-up for stroke with MRI of the brain and CT of the head as well as carotid duplex which were all negative for stroke. She has been admitted to be managed for acute metabolic encephalopathy of unclear etiology. Today the patient had 2 episodes of bright red rectal bleeding. She remained hemodynamically stable. Her anticoagulation has been DC'd. PT/INR have been ordered. She is resting comfortably right now and she is not complaining of any further bleeding. Past Medical History Past Medical History (Chronic Problems): Chronic Problems (Last Reviewed 09/24/19 @ 13:[address] Robyn Pak, ) Cirrhosis of liver with ascites (Chronic) Chronic pain syndrome (Chronic) Chronic narcotic use (Chronic) S/P PTCA (percutaneous transluminal coronary angioplasty) (Chronic) Altered mental status (Chronic) Hypotension (Chronic) on Midodrin History of GI bleed (Chronic) History of non-ST elevation myocardial infarction (NSTEMI) (Chronic 07/05/16) Atherosclerotic heart disease of [place] coronary artery without angina pectoris (Chronic) Stented coronary artery (Chronic) Cutting Balloon and ATMI (3.0X18 mm Xience) Proximal LAD 04/18/2012; Rotational atherectomy to proximal, id and distal RCA with two overlapping 4.0 X 38 Synergy TAMI ([facility] main) Ascites (Chronic) Pancytopenia (Chronic) Other specified peripheral vascular diseases (Chronic) Afib (Chronic) Congenital coronary artery anomaly (Chronic) Bradycardia (Chronic) Suspect sick sinus syndrome Diabetes mellitus, type II (Chronic) Hyperlipidemia (Chronic) Hypothyroidism (Chronic) Anemia in chronic kidney disease (Chronic) Hypertension (Chronic) End stage renal disease on dialysis (Chronic) Medical History: Medical History (Last Reviewed 10/23/19 @ 16:[address] Timothy Chamberlain MD) History of GI bleed (Chronic) Z87.19 History of non-ST elevation myocardial infarction (NSTEMI) (Chronic) Onset Date: 07/05/16 I25.2 Atherosclerotic heart disease of [place] coronary artery without angina pectoris (Chronic) I25.10 Ascites (Chronic) R18.8 Pancytopenia (Chronic) D61.818 Other specified peripheral vascular diseases (Chronic) I73.89 Afib (Chronic) I48.91 Congenital coronary artery anomaly (Chronic) Q24.5 Bradycardia (Chronic) R00.1 Suspect sick sinus syndrome Diabetes mellitus, type II (Chronic) E11.9 Hyperlipidemia (Chronic) E78.5 Hypothyroidism (Chronic) E03.9 Anemia in chronic kidney disease (Chronic) N18.9, D63.1 Hypertension (Chronic) I10 End stage renal disease on dialysis (Chronic) N18.6, 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 Skin cancer C44.90 mouth/lip 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, 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 Allergies lisinopril Allergy (Severe, Verified 10/21/19 09:09) Angioedema nebivolol HCl [From Bystolic] Adverse Reaction (Severe, Verified 10/21/19 09:09) bradycardia BRADYCARDIA Home Medications: Ambulatory Orders Medication Instructions Recorded Acetaminophen [Tylenol] 650 mg PO Q6H PRN 08/06/19 B Complex W-C No.20/Folic Acid 1 mg PO DAILY 08/06/19 [Virt-Caps Softgel] Cholecalciferol (VIT D3) [Vitamin 5,000 unit PO MOWEFR 08/06/19 D3] Melatonin 5 mg PO QHS 08/06/19 Nitroglycerin 0.4 mg SL PRN PRN 08/06/19 Ropinirole HCl [Requip] 2 tab PO QHS 08/06/19 Oxycodone HCl/Acetaminophen 1 tab PO Q6H PRN PRN 09/24/19 [Percocet 10-325 mg Tablet] proMETHazine tablet [Phenergan 12.5 mg PO Q6H PRN PRN 09/24/19 tablet] Lactulose [Chronulac] 30 gm PO TID 10/21/19 Midodrine HCl 10 mg PO TID 10/21/19 Nystatin Powder [Mycostatin Powder] 1 applic TOPICAL BID 10/21/19 Polyethylene Glycol 3350 [Miralax] 17 gm PO BID 10/21/19 Senna/Docusate Sodium [Senokot-S] 2 tab PO BID 10/21/19 Surgical History: Surgical History (Last Reviewed 10/23/19 @ 16:[address] Timothy Chamberlain MD) Stented coronary artery (Chronic) Z95.5 Cutting Balloon and TAMI (3.0X18 mm Xience) Proximal LAD 04/18/2012; Rotational atherectomy to proximal, id and distal RCA with two overlapping 4.0 X 38 Synergy TAMI ([facility] main) History of back surgery Z98.890 LATE 70'S History of colectomy Z90.49 History of hysterectomy Z90.710 History of laparoscopic cholecystectomy Z90.49 History of total right knee replacement Z96.651 Hx of foot surgery Z98.890 S/P left rotator cuff repair Z98.890 history left A-V fistula Surgical History: appendectomy, cholecystectomy, hysterectomy, total knee arthroplasty, - - Left upper extremity fistula, back surgery, colon resection with history of diverticulitis, GI bleed, right knee surgery, right total knee replacement, right foot surgery, left knee surgery, left foot surgery, PCI. Psychiatric History: No pertinent psych hx [employer] History: No pertinent [employer] history Smoking Status: Never smoker - *Family History Maternal Family History: Family History (Last Reviewed 10/23/19 @ 16:[address] Timothy Chamberlain MD) Sister Diabetes Heart disease Hypertension Anemia History Items: Cancer - uterine Paternal Family History: Family History (Last Reviewed 10/23/19 @ 16:[address] Timothy Chamberlain MD) Sister Diabetes Heart disease Hypertension Anemia History Items: Cancer Sibling Family History: Family History (Last Reviewed 10/23/19 @ 16:[address] Timothy Chamebrlain MD) Sister Diabetes Heart disease Hypertension Anemia History Items: Diabetes Review of Systems Constitutional: Denies: Chills, Fever, Weight Change Cardiovascular: Denies: Chest Pain, Chest Pressure, Chest Tightness, Palpitations Respiratory: Denies: Cough, Hemoptysis, Shortness of breath at rest, Shortness of breath upon exertion, Wheezing Gastrointestinal: Denies: Abdominal Pain, Constipation, Diarrhea, Hematemesis, Nausea, Melena, Vomiting Genitourinary: Denies: Dysuria, Frequency, Hematuria, Urgency Patient Problems: Active and Suspected Problems (Last Reviewed 09/24/19 @ 13:[address] Robyn Pak DO) NSTEMI (non-ST elevated myocardial infarction) (Acute) CAD in [place] artery (Acute) Encephalopathy (Acute) Anemia (Acute) - Physical Exam Vitals/I&O's: Vital Signs Temp Pulse Resp BP Pulse Ox 97.8 F 75 18 119/58 L 97 10/23/19 13:04 10/23/19 15:16 10/23/19 13:04 10/23/19 13:04 10/23/19 13:04 Oxygen Flow Rate (L/min) 2 Oxygen Delivery Method Nasal Cannula Weight: 194 lb 3.636 oz Body Mass Index (BMI) 33.7 Finger Stick Blood Glucose 99 Intake and Output for Last 24 Hours 10/21/19 10/22/19 10/23/19 23:59 23:59 23:59 Intake Total 460 / 460 244.17 / 484.17 1055.83 / 1055.83 Output Total 1999 Balance 460 / 460 -1755.83 / -1515.83 1055.83 / 1055.83 General: Alert, Oriented x3 Lungs: Clear to auscultation Cardiovascular: Regular rate, Regular Rhythm, No murmurs Abdomen: Bowel Sounds Present, Soft, Non Tender, Non-Distended Laboratory Results 10/23/19 05:08: WBC 7.9, RBC 3.35 L, Hgb 10.2 L, Hct 34.1 L, MCV 101.8 H, MCH 30.4, MCHC 29.9 L, RDW Std Deviation 64.2 H, RDW Coeff of Susan 17.3 H, Plt Count 196, MPV 9.2, Immature Gran % (Auto) 0.400, Neut % (Auto) 71.1 H, Lymph % (Auto) 18.3 L, [place] % (Auto) 6.9, Eos % (Auto) 2.5, Baso % (Auto) 0.8, Absolute Neuts (auto) 5.6, Absolute Lymphs (auto) 1.45, Nucleated RBC % 0, Differential Comment SCANNED 10/23/19 05:08: Sodium 132 L, Potassium 4.5, Chloride 100, Carbon Dioxide 22.0, Anion Gap 10, BUN 15, Creatinine 2.73 H, Estim Creat Clear Calc 15.78, Est GFR (MDRD) Af Amer 22 L, Est GFR (MDRD) Non-Af 18 L, BUN/Creatinine Ratio 5.5 L, Glucose 55 L, Calcium 8.4 L 10/23/19 07:39: POC Glucose 39 L* 10/23/19 08:01: POC Glucose 54 L 10/23/19 08:34: POC Glucose 70 10/23/19 09:36: POC Glucose 86 10/23/19 11:51: POC Glucose 102 10/23/19 14:59: POC PT 18.9 H, INR 1.50 Current Medications Acetaminophen (Tylenol) 650 mg PO Q6H PRN PRN Reason: PAIN 1-10/FEVER Last Admin: 10/23/19 10:06 Dose: 650 mg Documented by: Cholecalciferol (Vitamin D (25mcg)) 5,000 unit PO MOWEFR [facility] Last Admin: 10/22/19 08:31 Dose: 5,000 unit Documented by: Dextrose (D50w Syringe) 0 gm IV X1 PRN; Protocol PRN Reason: Hypoglycemia Glucagon () 1 mg IM .X1 PRN PRN Reason: Hypoglycemia Heparin Sodium (Porcine) () 2,500 units IV UD PRN PRN Reason: Dialysis Cath Heparin Flush Sodium Chloride () 250 mls @ 15 mls/hr IV .[id number] PRN PRN Reason: Saline Flush Last Infusion: 10/22/19 20:44 Dose: 0 mls/hr Documented by: Sodium Chloride () 250 mls @ 15 mls/hr IV .[id number] PRN PRN Reason: Additional IVPB Infusion Vancomycin IV Pharmacy to Dose (1 ea/ Sodium Chloride) 500 mls @ 250 mls/hr IV PRN PRN; Protocol PRN Reason: Rx to Dose Vancomycin HCl 750 mg/ Sodium (Chloride) 265 mls @ 250 mls/hr IV X1 ONE Stop: 10/24/19 22:03 Dextrose () 1,000 mls @ 60 mls/hr IV .[id number] [facility] Stop: 10/24/19 02:04 Last Admin: 10/23/19 09:54 Dose: 60 mls/hr Documented by: Insulin Human Lispro (Humalog Kwikpen (Bkc)) 0 unit SC ACHS [facility]; Protocol Last Admin: 10/23/19 16:13 Dose: Not Given Documented by: Lactulose (Chronulac, Cephulac) 30 gm PO TID [facility] Last Admin: 10/23/19 13:09 Dose: Not Given Documented by: Melatonin (Melatonin) 5 mg PO QHS [facility] Last Admin: 10/22/19 20:41 Dose: 5 mg Documented by: Midodrine (Proamatine) 10 mg PO TID [facility] Last Admin: 10/23/19 13:09 Dose: 10 mg Documented by: Multivit/Ca Carb/B Cmplx/FA/Prenat (Nephrocaps, Renaphro) 1 capsule PO DAILY [facility] Last Admin: 10/23/19 09:53 Dose: 1 capsule Documented by: Nitroglycerin (Nitrostat) 0.4 mg SUBLINGUAL Q5M PRN PRN Reason: CARDIAC/CHEST PAIN Nystatin (Mycostatin Powder) 1 applic TOPICAL BID [facility]; Protocol Last Admin: 10/23/19 09:52 Dose: 1 applicatio Documented by: Polyethylene Glycol (Miralax) 17 gm PO BID [facility] Last Admin: 10/23/19 09:51 Dose: Not Given Documented by: Pramipexole Dihydrochloride (Mirapex) 0.25 mg PO QHS [facility] Last Admin: 10/22/19 20:41 Dose: 0.25 mg Documented by: Promethazine HCl (Phenergan Tablet) 12.5 mg PO Q6H PRN PRN PRN Reason: NAUSEA Senna/Docusate Sodium (Senokot-S, Sarah-Colace) 2 tablet PO BID [facility] Last Admin: 10/23/19 09:52 Dose: Not Given Documented by: Sodium Chloride () 10 ml IV UD PRN PRN Reason: Dialysis Catheter Flush Last Admin: 10/23/19 09:59 Dose: 10 ml Documented by: Sodium Chloride () 10 - 40 ml IV UD PRN PRN Reason: SALINE FLUSH Assessment/Plan All Active Problems (Last Reviewed 09/24/19 @ 13:[address] Robyn Pak, DO) Fecal impaction (Acute) Hematochezia (Acute) Acute on chronic anemia (Acute) Hyperkalemia (Acute) NSTEMI (non-ST elevated myocardial infarction) (Acute) CAD in [place] artery (Acute) Encephalopathy (Acute) Anemia (Acute) We will need to check the PT/INR status once it is available. She has had 3 other episodes of spontaneous rectal bleeding good has resolved on its own. Her most recent colonoscopy back in March with an EGD was essentially negative. She has had no further bloody bowel movements since this morning. If the patient has another bloody bowel movement then I think a bleeding study would be appropriate. I do not feel doing a colonoscopy on her is going to yield productive results in the face of her probably needing a heart cath. However if she does undergo a bleeding scan and it is positive then a colonoscopy or upper endoscopy may be warranted. Office Visits / Consults: [id number] IP Consult L4
[2019-10-23 16:21] LABS: Bedside Glucose 92 mg/dL (70-110)
--- NOTE | 2019-10-23 16:27 | NURSING ---
Daughter called to express concern about patient's ongoing confusion she experienced while talking to her on the phone.
[2019-10-23] MEDS: Morphine 2 MG/ML Syringe 1 MG IV (19:07)
[2019-10-23] MEDS: oxyCODONE 5 MG Tablet PO (23:16)
[2019-10-23] MEDS: MELATONIN 10 MG TABLET 5 MG PO (23:16)
[2019-10-23] MEDS: Lactulose 20 GM/30 ML UDC 30 GM PO (23:17)
[2019-10-23] MEDS: Pramipexole Di-HCl 0.25 MG Tablet PO (23:18)
[2019-10-23] MEDS: Senna/Docusate Sodium 1 Tablet 2 TABLET PO (23:19)
[2019-10-23 23:24] LABS: Hematocrit 31.1 % (37-47); Hemoglobin 9.2 g/dL (12.0-15.0)
[2019-10-23 23:25] LABS: Bedside Glucose 156 mg/dL (70-110)
[2019-10-23 23:40] LABS: International Normalized Ratio 1.4; Partial Thromboplast Time 42.1 Seconds (24.1-36.2); Prothrombin Time (Protime)PT. 16.3 SECONDS (11.7-14.9)
[2019-10-24] VITALS (15 sets, daily range): BP systolic 102–130; BP diastolic 39–62; PULSE 72–103; RESP 11–20; TEMP 36.4–37.2; O2SAT 92–100
[2019-10-24] MEDS: Midodrine HCl 5 MG Tablet 10 MG PO (06:07)
[2019-10-24] MEDS: Lactulose 20 GM/30 ML UDC 30 GM PO (06:07)
[2019-10-24 06:11] LABS: Absolute Lymphocyte Count 1.44 X10^3/uL (0.83-4.51); Absolute Neutrophil Count 5.7 X10^3/uL (2.0-7.7); Basophil# 0.05 X10^3/uL; Basophil% 0.6 % (0-1); Eosinophil# 0.23 X10^3/uL; Eosinophils% 2.9 % (0-5); Hematocrit 30.5 % (37-47); Lymphocyte # 1.44 X10^3/ul (4.0); Lymphocyte % 17.9 % (19-41); Mean Corp Hgb Conc 29.5 g/dL (32-36); Mean Corpuscular Hgb 30.8 pg (27.0-32.0); Mean Corpuscular Volume 104.5 fL (81-99); Mean Platelet Vol. 8.7 fl (6.2-12.0); Monocyte% 7.4 % (0-10); NRBC Flagged by Analyzer 0 % (0-5); Neutrophil # 5.69 X10^3/uL (2.7-7.7); Neutrophil % 70.6 % (47-70); Platelet Count 199 K/mm3 (150-450); RBC Distribution Width CV 17.2 % (11.6-14.6); RBC Distribution Width SD 64.6 fl (35.1-43.9); Red Blood Count 2.92 M/mm3 (4.2-5.4); White Blood Count 8.1 K/mm3 (4.4-11.0)
[2019-10-24 06:28] LABS: Anion Gap 8 (5-15); BUN 19 mg/dL (7-18); BUN/Creat Ratio 5.5 RATIO (10-20); Calcium,Total 8.2 mg/dL (8.5-10.1); Chloride 96 mmol/L (98-107); Creatinine, Serum 3.46 mg/dL (0.55-1.02); EST Glomerular Filtration Rate 14 mL/min (>60); Est Glom Filt Rate - Afr Amer 17 mL/min (>60); Estimated Creatinine Clearance 12.45 ml/min; Glucose 122 mg/dL (74-106); Potassium 4.1 mmol/L (3.5-5.1); Sodium Level 132 mmol/L (136-145)
[2019-10-24 06:31] LABS: Bedside Glucose 109 mg/dL (70-110)
--- NOTE | 2019-10-24 09:14 | PCM.PN.CARD ---
Subjectve: Patient undergoing dialysis this morning. The patient had 2 episodes of bright red blood per rectum yesterday evening, and anticoagulation was discontinued. INR found to be 1.4. No further bleeding episodes. The patient has had previous bleeding episodes in the past and has had an extensive GI work-up. Telemetry showed atrial fibrillation with controlled ventricular response. Objective: Vital Signs Temp Pulse Resp BP Pulse Ox 98.0 F 80 16 120/52 L 98 10/24/19 07:24 10/24/19 07:24 10/24/19 07:24 10/24/19 07:24 10/24/19 07:24 Oxygen Flow Rate (L/min) 2 Oxygen Delivery Method Nasal Cannula Weight: 202 lb 9.677 oz Body Mass Index (BMI) 33.7 Finger Stick Blood Glucose 99 Intake and Output for Last 24 Hours 10/22/19 10/23/19 10/24/19 23:59 23:59 23:59 Intake Total 244.17 / 484.17 1355.83 / 1355.83 1000 / 1000 Output Total 1999 Balance -1755.83 / -1515.83 1355.83 / 1355.83 1000 / 1000 General: Awake, Alert, Oriented x 3 HEENT: PERRL, EOMI, Sclera Non Icteric Neck: Supple, Good ROM, No Lymph Node Enlargement Lungs: Clear to auscultation Cardiovascular: Irregular Rhythm, Normal S2, No Rubs, No Gallops Murmur Murmur: Grade 2/6, Mid Systolic, LLSB Vascular: No Carotid Bruits, Normal Femoral Pulses, Normal Radial Pulses, Normal Dorsalis Pedal Pulse, Normal Posterior Tibial Pulses Abdomen: Bowel Sounds Present, Soft, Non Tender, No HSM, No Organomegaly Extremities: No Cyanosis, No Clubbing, No edema Neurological: No Focal Motor or Sensory Deficit 10/23/19 14:59: INR 1.50 10/23/19 23:00: PT 16.3 H, INR 1.4, APTT 42.1 H 10/23/19 23:00: Hgb 9.2 L, Hct 31.1 L 10/24/19 05:55: WBC 8.1, RBC 2.92 L, Hgb 9.0 L, Hct 30.5 L, MCV 104.5 H, MCH 30.8, MCHC 29.5 L, Plt Count 199, MPV 8.7, Immature Gran % (Auto) 0.600, Neut % (Auto) 70.6 H, Lymph % (Auto) 17.9 L, [place] % (Auto) 7.4, Eos % (Auto) 2.9, Baso % (Auto) 0.6, Absolute Neuts (auto) 5.7, Nucleated RBC % 0 10/24/19 05:55: Sodium 132 L, Potassium 4.1, Chloride 96 L, Carbon Dioxide 28.0, Anion Gap 8, BUN 19 H, Creatinine 3.46 H, Est GFR (MDRD) Af Amer 17 L, Est GFR (MDRD) Non-Af 14 L, BUN/Creatinine Ratio 5.5 L, Glucose 122 H, Calcium 8.2 L Rhythm: EKG: ECHO: Stress Test: Cardiac Cath: PCI: CT Surgery: Holter monitor: EPS: PPM: CXR: Chest CT Scan: Medical Necessity - Tobacco Use Smoking Status: Never smoker Assessment/Plan 1. Abnormal troponins: I am unsure what to make of the patient's abnormal troponins, although she has had some chest pressure while she is on dialysis recently. Patient's primary complaint was mental status changes, and although her CT scan was negative for overt CVA, she may have had a TIA as she is in atrial fibrillation on no anticoagulation therapy. Tele-neurology was consulted yesterday, and recommended an EEG. EEG pending. I recommended that we hold off on diagnostic coronary catheterization at this time until we can better figure out the source of her mental status changes. Patient did have a slightly elevated ammonia level due to her cirrhosis with recurrent ascites and paracentesis. If the patient has had a TIA or CVA, I would not recommend diagnostic catheterization at this time as she is essentially asymptomatic. The patient has had complex coronary anatomy and required rotablation therapy of her right coronary artery and has a highly calcified anomalous left circumflex artery. She has had previous stenting to her LAD, and her previous catheterization most recently showed widely patent LAD stents. In addition the patient had an episode of bright red blood per rectum last evening requiring us to discontinue her anticoagulation therapy. I would however continue her baby aspirin and Plavix given her known coronary artery disease. To better evaluate the patient's cardiovascular condition she underwent a repeat echocardiogram in 10/21/2019 with the following results: Mild concentric left ventricular hypertrophy. The estimated ejection fraction is 65 %. Unable to assess diastolic dysfunction due to arrhythmia. Severely dilated right ventricle. Moderate global right ventricular systolic dysfunction. The left atrium is severely enlarged. The right atrium is severely enlarged. Moderately severe (3+) tricuspid valve insufficiency. Right ventricular systolic pressure estimated to be 35 mmHg, most likely underestimated. Immobile noncoronary cusp Severe diffuse aortic valve thickening. Moderate restriction of the aortic valve. Moderate to severe aortic stenosis. Peak aortic valve gradient 49 mmHg. Mean aortic valve gradient 26 mmHg. Calculated aortic valve area (continuity equation) is 0.9-1.0 cm2. Trivial pericardial effusion. There are no echocardiographic indications of cardiac tamponade. Compared to echo report dated 05/24/2019, LV function has remained the same, RVSP has decreased from 50 to 35 mmHg, and aortic valve gradient has remained about the same. Patient appears to be in atrial fibrillation. 2. Atrial fibrillation: If the patient was found to have a TIA/CVA, she will require anticoagulation therapy given her atrial fibrillation. This would be superimposed on her baby aspirin and Plavix. 3. Aortic stenosis: Patient has at least moderate aortic stenosis which is complicating her overall cardiovascular picture, increasing risk for any coronary intervention should that be necessary. Again I will hold off on recommending diagnostic coronary angiogram at this time until her metabolic status has improved as well as documentation that her lower GI bleeding has also resolved. 3. Hyperlipidemia: Recommend obtaining a fasting blood profile. 4. Thank you very much for the opportunity to participate in the cardiac care of your patient. Consideration may want remade for palliative care given her constellation of medical problems. Inpatient E&M: [id number] [facility]
--- NOTE | 2019-10-24 09:44 | NURSING ---
This RN updated the pt's daughter, Jackeline on the phone.
--- NOTE | 2019-10-24 10:09 | PCM.PN.SRG ---
Patient Problems: Active and Suspected Problems (Last Reviewed 10/23/19 @ 16:[address] Timothy Chamberlain MD) NSTEMI (non-ST elevated myocardial infarction) (Acute) CAD in [place] artery (Acute) Encephalopathy (Acute) Anemia (Acute) Subjective: Hemoglobin is at 9 Patient has had an episode of recurrent rectal bleeding this morning at 830. She is not complaining of any anal pain. Objective: Abdomen is soft patient is getting dialysis - Physical Exam Vitals/I&O's: Vital Signs Temp Pulse Resp BP Pulse Ox 98.0 F 80 16 120/52 L 98 10/24/19 07:24 10/24/19 07:24 10/24/19 07:24 10/24/19 07:24 10/24/19 07:24 Oxygen Flow Rate (L/min) 2 Oxygen Delivery Method Nasal Cannula Weight: 202 lb 9.677 oz Body Mass Index (BMI) 33.7 Finger Stick Blood Glucose 99 Intake and Output for Last 24 Hours 10/22/19 10/23/19 10/24/19 23:59 23:59 23:59 Intake Total 244.17 / 484.17 1355.83 / 1355.83 1000 / 1000 Output Total 1999 Balance -1755.83 / -1515.83 1355.83 / 1355.83 1000 / 1000 Laboratory Results 10/23/19 09:36: POC Glucose 86 10/23/19 11:51: POC Glucose 102 10/23/19 14:59: POC PT 18.9 H, INR 1.50 10/23/19 16:12: POC Glucose 92 10/23/19 23:00: PT 16.3 H, INR 1.4, APTT 42.1 H 10/23/19 23:00: Hgb 9.2 L, Hct 31.1 L 10/23/19 23:09: POC Glucose 156 H 10/24/19 05:55: WBC 8.1, RBC 2.92 L, Hgb 9.0 L, Hct 30.5 L, MCV 104.5 H, MCH 30.8, MCHC 29.5 L, RDW Std Deviation 64.6 H, RDW Coeff of Susan 17.2 H, Plt Count 199, MPV 8.7, Immature Gran % (Auto) 0.600, Neut % (Auto) 70.6 H, Lymph % (Auto) 17.9 L, [place] % (Auto) 7.4, Eos % (Auto) 2.9, Baso % (Auto) 0.6, Absolute Neuts (auto) 5.7, Absolute Lymphs (auto) 1.44, Nucleated RBC % 0 10/24/19 05:55: Sodium 132 L, Potassium 4.1, Chloride 96 L, Carbon Dioxide 28.0, Anion Gap 8, BUN 19 H, Creatinine 3.46 H, Estim Creat Clear Calc 12.45, Est GFR (MDRD) Af Amer 17 L, Est GFR (MDRD) Non-Af 14 L, BUN/Creatinine Ratio 5.5 L, Glucose 122 H, Calcium 8.2 L 10/24/19 06:03: POC Glucose 109 Current Medications Acetaminophen (Tylenol) 650 mg PO Q6H PRN PRN Reason: PAIN 1-10/FEVER Last Admin: 10/23/19 16:23 Dose: 650 mg Documented by: Cholecalciferol (Vitamin D (25mcg)) 5,000 unit PO MOWEFR [facility] Last Admin: 10/22/19 08:31 Dose: 5,000 unit Documented by: Dextrose (D50w Syringe) 0 gm IV X1 PRN; Protocol PRN Reason: Hypoglycemia Glucagon () 1 mg IM .X1 PRN PRN Reason: Hypoglycemia Heparin Sodium (Porcine) () 2,500 units IV UD PRN PRN Reason: Dialysis Cath Heparin Flush Sodium Chloride () 250 mls @ 15 mls/hr IV .[id number] PRN PRN Reason: Saline Flush Last Infusion: 10/22/19 20:44 Dose: 0 mls/hr Documented by: Sodium Chloride () 250 mls @ 15 mls/hr IV .[id number] PRN PRN Reason: Additional IVPB Infusion Vancomycin IV Pharmacy to Dose (1 ea/ Sodium Chloride) 500 mls @ 250 mls/hr IV PRN PRN; Protocol PRN Reason: Rx to Dose Vancomycin HCl 750 mg/ Sodium (Chloride) 265 mls @ 250 mls/hr IV X1 ONE Stop: 10/24/19 22:03 Insulin Human Lispro (Humalog Kwikpen (Bkc)) 0 unit SC [facility]; Protocol Last Admin: 10/24/19 06:07 Dose: Not Given Documented by: Lactulose (Chronulac, Cephulac) 30 gm PO TID [facility] Last Admin: 10/24/19 06:07 Dose: 30 gm Documented by: Melatonin (Melatonin) 5 mg PO QHS [facility] Last Admin: 10/23/19 23:16 Dose: 5 mg Documented by: Midodrine (Proamatine) 10 mg PO TID [facility] Last Admin: 10/24/19 06:07 Dose: 10 mg Documented by: Multivit/Ca Carb/B Cmplx/FA/Prenat (Nephrocaps, Renaphro) 1 capsule PO DAILY [facility] Last Admin: 10/23/19 09:53 Dose: 1 capsule Documented by: Nitroglycerin (Nitrostat) 0.4 mg SUBLINGUAL Q5M PRN PRN Reason: CARDIAC/CHEST PAIN Nystatin (Mycostatin Powder) 1 applic TOPICAL BID [facility]; Protocol Last Admin: 10/23/19 23:19 Dose: 1 applicatio Documented by: Polyethylene Glycol (Miralax) 17 gm PO BID [facility] Last Admin: 10/23/19 23:18 Dose: Not Given Documented by: Pramipexole Dihydrochloride (Mirapex) 0.25 mg PO QHS [facility] Last Admin: 10/23/19 23:18 Dose: 0.25 mg Documented by: Promethazine HCl (Phenergan Tablet) 12.5 mg PO Q6H PRN PRN PRN Reason: NAUSEA Senna/Docusate Sodium (Senokot-S, Sarah-Colace) 2 tablet PO BID [facility] Last Admin: 10/23/19 23:19 Dose: 2 tablet Documented by: Sodium Chloride () 10 ml IV UD PRN PRN Reason: Dialysis Catheter Flush Last Admin: 10/23/19 09:59 Dose: 10 ml Documented by: Sodium Chloride () 10 - 40 ml IV UD PRN PRN Reason: SALINE FLUSH Medical Necessity - Tobacco Use Smoking Status: Never smoker Assessment/Plan All Active Problems (Last Reviewed 10/23/19 @ 16:[address] Timothy Chamberlain MD) Fecal impaction (Acute) Hematochezia (Acute) Acute on chronic anemia (Acute) Hyperkalemia (Acute) NSTEMI (non-ST elevated myocardial infarction) (Acute) CAD in [place] artery (Acute) Encephalopathy (Acute) Anemia (Acute) Once dialysis is completed and I think getting a bleeding scan would be appropriate just to make sure that there is no obvious upper bleeding source was identified. Patient's last endoscopy this past March raise a question that this bleeding was coming from an upper source. Patient's previous nuclear study back in March 2019 was negative. She has had an extensive work-up at [facility] in the past which was unavailing and finding an obvious source of bleeding. And it was thought that it could be related to intermittent diverticular bleeding. I reviewed the pictures from her previous colonoscopy and March and she certainly has multiple small and large mouth diverticuli. At the minimum we should be trying Anusol suppositories to see if this will be of any benefit. But there is still an anticoagulation issue that is going to need to be addressed given her overall comorbidities. I agree with cardiology's assessment given her overall comorbidities palliative care here needs to be reconsidered and we discussed with the patient. I will leave this up to the hospitalist. Inpatient E&M: [id number] Subs Hosp L2
--- NOTE | 2019-10-24 10:23 | NM_ITS ---
PROCEDURE: Nuclear medicine GI bleed study. REASON FOR EXAM: Blood in stool. COMPARISON: CT of the abdomen 10/20/2019. TECHNIQUE: Red blood cells were labeled using approximately 28 millicuries technetium pertechnetate. There are reinjected and images were obtained for total of one hour. FINDINGS: There is a normal distribution of red blood cells. There are no focal accumulations of tracer to suspect active GI bleeding. Lateral views were not obtained, so the rectum is not optimally visualized. NM/GI Bleed Scan IMPRESSION: No evidence of active GI bleeding. Electronically Signed: Ramos Morales MD at 18:32 EDT , Service support ,
[2019-10-24] MEDS: Nystatin Powder 15gm Bottle 1 APPLIC TOPICAL ×2 (10:40→23:06)
[2019-10-24 10:45] LABS: Bedside Glucose 119 mg/dL (70-110)
--- NOTE | 2019-10-24 12:53 | PN_ITS ---
Patient Problems: Active and Suspected Problems (Last Reviewed 10/23/19 @ 16:[address] Timothy Chamberlain MD) NSTEMI (non-ST elevated myocardial infarction) (Acute) CAD in [place] artery (Acute) Encephalopathy (Acute) Anemia (Acute) Reason for Visit: Patient seen and examined. She was sleepy but arousable. She denied any fever, chills, shortness of breath, cough, chest pain, nausea vomiting or diarrhea. Review of systems otherwise negative. Labs and vitals reviewed. Hemoglobin today is 9. Of note, patient has several episodes of bright red bleeding rectally yesterday and general surgery was consulted. She has not had any bleeding today. Subjective: Patient seen and examined. Vitals/I&O's: Vital Signs Temp Pulse Resp BP Pulse Ox 98.0 F 80 16 120/52 L 98 10/24/19 07:24 10/24/19 07:24 10/24/19 07:24 10/24/19 07:24 10/24/19 07:24 Oxygen Flow Rate (L/min) 2 Oxygen Delivery Method Nasal Cannula Weight: 202 lb 9.677 oz Body Mass Index (BMI) 33.7 Finger Stick Blood Glucose 99 Intake and Output for Last 24 Hours 10/22/19 10/23/19 10/24/19 23:59 23:59 23:59 Intake Total 244.17 / 484.17 1355.83 / 1355.83 1000 / 1000 Output Total 1999 Balance -1755.83 / -1515.83 1355.83 / 1355.83 1000 / 1000 General: Alert, Oriented, though does seem to have some baseline confusion, Cooperative, No apparent distress HEENT: Atraumatic, PERRLA, EOMI, Normocephalic Oral: Dry Mucosa Neck: Supple, No JVD, Negative Carotid Bruits Lungs: No rhonchi, - - decreased breath sounds bibasally, no wheezes or crackles Cardiovascular: Regular rate, Regular Rhythm, Normal S1, Normal S2, No murmurs Abdomen: Bowel Sounds Present, Soft, Non Tender, Distended - positive fluid thrill due to ascites Extremities: No clubbing, No cyanosis, No edema, Capillary Refill Less than 3 Seconds Skin: No rashes, mild erythema and tenderness on lateral aspect of right breast, and beneath right nipple; area is indurated, and very tender. No visible discharge from nipple. healing scab beneath right nipple Musculoskeletal: No Tenderness to Palpation of Joints or Extremities Lymphatic: No Cervical, Supraclavicular, or Inguinal Adenopathy Neurological: Cranial nerves II-XII grossly intact, Neuro grossly intact, Motor Exam 5/5 strength throughout Psych/Mental Status: Normal Affect, Appropriate, Alert and oriented to time, place, person, mood and affect Laboratory Results 10/23/19 14:59: POC PT 18.9 H, INR 1.50 10/23/19 16:12: POC Glucose 92 10/23/19 23:00: PT 16.3 H, INR 1.4, APTT 42.1 H 10/23/19 23:00: Hgb 9.2 L, Hct 31.1 L 10/23/19 23:09: POC Glucose 156 H 10/24/19 05:55: WBC 8.1, RBC 2.92 L, Hgb 9.0 L, Hct 30.5 L, MCV 104.5 H, MCH 30.8, MCHC 29.5 L, RDW Std Deviation 64.6 H, RDW Coeff of Susan 17.2 H, Plt Count 199, MPV 8.7, Immature Gran % (Auto) 0.600, Neut % (Auto) 70.6 H, Lymph % (Auto) 17.9 L, [place] % (Auto) 7.4, Eos % (Auto) 2.9, Baso % (Auto) 0.6, Absolute Neuts (auto) 5.7, Absolute Lymphs (auto) 1.44, Nucleated RBC % 0 10/24/19 05:55: Sodium 132 L, Potassium 4.1, Chloride 96 L, Carbon Dioxide 28.0, Anion Gap 8, BUN 19 H, Creatinine 3.46 H, Estim Creat Clear Calc 12.45, Est GFR (MDRD) Af Amer 17 L, Est GFR (MDRD) Non-Af 14 L, BUN/Creatinine Ratio 5.5 L, Glucose 122 H, Calcium 8.2 L 10/24/19 06:03: POC Glucose 109 10/24/19 10:38: POC Glucose 119 H Diagnostic Data Brain CT 10/21/19 09:16 IMPRESSION: Chronic involutional changes of the brain. Electronically Signed: Eric Mckay, at 11:03 EDT , Service support , Chest X-Ray 10/21/19 10:33 IMPRESSION: Cardiomegaly. Stable mild increased markings at the lung bases slightly more prominent on the left side. Electronically Signed: Eric Nely, at 11:06 EDT , Service support , Brain MRI 10/22/19 10:38 IMPRESSION: Chronic ischemic and involutional changes of the brain, as described above. Electronically Signed: Toribio Rodriguez MD at 18:58 EDT , Service support , Current Medications Acetaminophen (Tylenol) 650 mg PO Q6H PRN PRN Reason: PAIN 1-10/FEVER Last Admin: 10/23/19 16:23 Dose: 650 mg Documented by: Cholecalciferol (Vitamin D (25mcg)) 5,000 unit PO MOWEFR [facility] Last Admin: 10/22/19 08:31 Dose: 5,000 unit Documented by: Dextrose (D50w Syringe) 0 gm IV X1 PRN; Protocol PRN Reason: Hypoglycemia Glucagon () 1 mg IM .X1 PRN PRN Reason: Hypoglycemia Heparin Sodium (Porcine) () 2,500 units IV UD PRN PRN Reason: Dialysis Cath Heparin Flush Hydrocortisone Acetate (Anusol Hc) 25 mg RECTAL BID [facility] Sodium Chloride () 250 mls @ 15 mls/hr IV .[id number] PRN PRN Reason: Saline Flush Last Infusion: 10/22/19 20:44 Dose: 0 mls/hr Documented by: Sodium Chloride () 250 mls @ 15 mls/hr IV .[id number] PRN PRN Reason: Additional IVPB Infusion Vancomycin IV Pharmacy to Dose (1 ea/ Sodium Chloride) 500 mls @ 250 mls/hr IV PRN PRN; Protocol PRN Reason: Rx to Dose Vancomycin HCl 750 mg/ Sodium (Chloride) 265 mls @ 250 mls/hr IV X1 ONE Stop: 10/24/19 22:03 Insulin Human Lispro (Humalog Kwikpen (Bkc)) 0 unit SC [facility]; Protocol Last Admin: 10/24/19 11:01 Dose: Not Given Documented by: Lactulose (Chronulac, Cephulac) 30 gm PO TID [facility] Last Admin: 10/24/19 06:07 Dose: 30 gm Documented by: Melatonin (Melatonin) 5 mg PO QHS [facility] Last Admin: 10/23/19 23:16 Dose: 5 mg Documented by: Midodrine (Proamatine) 10 mg PO TID [facility] Last Admin: 10/24/19 06:07 Dose: 10 mg Documented by: Multivit/Ca Carb/B Cmplx/FA/Prenat (Nephrocaps, Renaphro) 1 capsule PO DAILY [facility] Last Admin: 10/23/19 09:53 Dose: 1 capsule Documented by: Nitroglycerin (Nitrostat) 0.4 mg SUBLINGUAL Q5M PRN PRN Reason: CARDIAC/CHEST PAIN Nystatin (Mycostatin Powder) 1 applic TOPICAL BID [facility]; Protocol Last Admin: 10/24/19 10:40 Dose: 1 applicatio Documented by: Polyethylene Glycol (Miralax) 17 gm PO BID [facility] Last Admin: 10/24/19 10:14 Dose: Not Given Documented by: Pramipexole Dihydrochloride (Mirapex) 0.25 mg PO QHS [facility] Last Admin: 10/23/19 23:18 Dose: 0.25 mg Documented by: Promethazine HCl (Phenergan Tablet) 12.5 mg PO Q6H PRN PRN PRN Reason: NAUSEA Senna/Docusate Sodium (Senokot-S, Sarah-Colace) 2 tablet PO BID [facility] Last Admin: 10/24/19 10:15 Dose: Not Given Documented by: Sodium Chloride () 10 ml IV UD PRN PRN Reason: Dialysis Catheter Flush Last Admin: 10/23/19 09:59 Dose: 10 ml Documented by: Sodium Chloride () 10 - 40 ml IV UD PRN PRN Reason: SALINE FLUSH Medical Necessity - Tobacco Use Smoking Status: Never smoker Assessment/Plan All Active Problems (Last Reviewed 10/23/19 @ 16:[address] Timothy Chamberlain MD) Fecal impaction (Acute) Hematochezia (Acute) Acute on chronic anemia (Acute) Hyperkalemia (Acute) NSTEMI (non-ST elevated myocardial infarction) (Acute) CAD in [place] artery (Acute) Encephalopathy (Acute) Anemia (Acute) 74 y/o admitted with a complaint of confusion, which had resolved by time of review 1. Acute metabolic encephalopathy * resolved. patient still does have some baseline occasional confusion, but has remained largely alert and oriented * EEG showed abnormal waking EEG with diffuse slowing suggestive of an encephalopathy ie metabolic, toxic and anoxic. * neurology reviewed patient- think it is a toxic metabolic encephalopathy and unlikely to be CVA or seizures; recommend outpaient formal neurocognitive evaluation * fall precautions. PT/OT on board * CT and MRI of the brain were negative for stroke. * 2. nonstemi * initial troponin was 1.25 and peaked at 1.7 * last 2D echo in may 2019 showed EF of 55%, with normal LV systolic function and mild to moderate aortic stenosis, and moderate tricuspid valve insufficiency. * cardiology on board; on aspirin, statin and plavix as well as beta morelia. aspirin and plavix held o/a of rectal bleed * for medical management, according to cardiology. * 3. Cellulitis of right breast: * area is still firm and indurated. * On IV vancomycin, dosed with dialysis. has no leucocytosis * general surgery consulted; breast ultrasound ordered * 4. rectal bleeding * aspirin and plavix on hold * General surgery consulted; recommend bleeding scan if rectal bleeding recurs. * Patient did have EGD and colonoscopy in March 2019 also for rectal bleeding but this was negative. * PT/INR is 1.4 * 5. ESRD on hemodialysis: Has hemodialysis Wednesdays. nephrology on board. 6. Ascites due to liver cirrhosis: Had paracentesis this week. Has paracentesis every 2 weeks. On lactulose. 7. Anemia of chronic disease: Hb is 10.2. stable. 8. Hyperlipidemia and hypertension: On statin. 9. History of A. fib: Currently rate controlled. 10. Type 2 diabetes mellitus: * on lantus 11 units qhs * she was hypoglycemic yesterday, though asymptomatic. This has resolved. * hold insulin * ISS. Accuchecks ACHS DVT prophylaxis: SCDs; heparin on hold Code status: full code Inpatient E&M: [id number] Subs Hosp L3
--- NOTE | 2019-10-24 13:06 | US_ITS ---
STUDY: ULTRASOUND BREAST - RIGHT REASON FOR EXAM: Female, 74 years old. Right breast pain, tenderness, erythema TECHNIQUE: Axial and longitudinal images of the RIGHT breast were performed with a high resolution ultrasound transducer. # OF IMAGES: 107 COMPARISON: None. FINDINGS: RIGHT Breast: Heterogeneous background echotexture. Ultrasound fails demonstrate a discrete solid or cystic mass. US/Breast Complete Unilateral IMPRESSION: No evidence of abscess. ASSESSMENT CATEGORY: BIRADS Category 1: Negative. A letter regarding these results will be sent to the patient by the facility within 30 days. Electronically Signed: Diogo Pearl MD at 15:41 EDT Tel , Service support ,
--- NOTE | 2019-10-24 13:09 | NURSING ---
This RN called and updated pt's daughter, Jackeline.
[2019-10-24] MEDS: Hydrocortisone 25 MG Suppository RECTAL ×2 (14:08→23:06)
--- NOTE | 2019-10-24 14:17 | PN.RENAL_ITS ---
Patient Problems: Active and Suspected Problems (Last Reviewed 10/23/19 @ 16:[address] Timothy Chamberlain MD) NSTEMI (non-ST elevated myocardial infarction) (Acute) CAD in [place] artery (Acute) Encephalopathy (Acute) Anemia (Acute) Subjective: seen on dialysis, screaming in pain. Pain in right breast to light touch, indurated. BP stable with 2L fluid removal.complains of pain with urination - Physical Exam Vitals/I&O's: Vital Signs Temp Pulse Resp BP Pulse Ox 98.0 F 91 16 112/55 L 94 10/24/19 12:30 10/24/19 12:30 10/24/19 12:30 10/24/19 12:30 10/24/19 12:30 Oxygen Flow Rate (L/min) 2 Oxygen Delivery Method Nasal Cannula Weight: 91.9 kg Body Mass Index (BMI) 33.7 Finger Stick Blood Glucose 99 Intake and Output for Last 24 Hours 10/22/19 10/23/19 10/24/19 23:59 23:59 23:59 Intake Total 244.17 / 484.17 1355.83 / 1355.83 1000 / 1000 Output Total 1999 Balance -1755.83 / -1515.83 1355.83 / 1355.83 1000 / 1000 General: Confused Lungs: Clear to auscultation Cardiovascular: Regular rate Abdomen: Bowel Sounds Present, Soft, Distended, Tender Skin: - - erythema BLE Psych/Mental Status: Agitated, Restless Laboratory Results 10/23/19 14:59: POC PT 18.9 H, INR 1.50 10/23/19 16:12: POC Glucose 92 10/23/19 23:00: PT 16.3 H, INR 1.4, APTT 42.1 H 10/23/19 23:00: Hgb 9.2 L, Hct 31.1 L 10/23/19 23:09: POC Glucose 156 H 10/24/19 05:55: WBC 8.1, RBC 2.92 L, Hgb 9.0 L, Hct 30.5 L, MCV 104.5 H, MCH 30.8, MCHC 29.5 L, RDW Std Deviation 64.6 H, RDW Coeff of Susan 17.2 H, Plt Count 199, MPV 8.7, Immature Gran % (Auto) 0.600, Neut % (Auto) 70.6 H, Lymph % (Auto) 17.9 L, [place] % (Auto) 7.4, Eos % (Auto) 2.9, Baso % (Auto) 0.6, Absolute Neuts (auto) 5.7, Absolute Lymphs (auto) 1.44, Nucleated RBC % 0 10/24/19 05:55: Sodium 132 L, Potassium 4.1, Chloride 96 L, Carbon Dioxide 28.0, Anion Gap 8, BUN 19 H, Creatinine 3.46 H, Estim Creat Clear Calc 12.45, Est GFR (MDRD) Af Amer 17 L, Est GFR (MDRD) Non-Af 14 L, BUN/Creatinine Ratio 5.5 L, Glucose 122 H, Calcium 8.2 L 10/24/19 06:03: POC Glucose 109 10/24/19 10:38: POC Glucose 119 H Current Medications Acetaminophen (Tylenol) 650 mg PO Q6H PRN PRN Reason: PAIN 1-10/FEVER Last Admin: 10/23/19 16:23 Dose: 650 mg Documented by: Cholecalciferol (Vitamin D (25mcg)) 5,000 unit PO MOWEFR [facility] Last Admin: 10/24/19 14:07 Dose: Not Given Documented by: Dextrose (D50w Syringe) 0 gm IV X1 PRN; Protocol PRN Reason: Hypoglycemia Glucagon () 1 mg IM .X1 PRN PRN Reason: Hypoglycemia Heparin Sodium (Porcine) () 2,500 units IV UD PRN PRN Reason: Dialysis Cath Heparin Flush Hydrocortisone Acetate (Anusol Hc) 25 mg RECTAL BID [facility] Last Admin: 10/24/19 14:08 Dose: 25 mg Documented by: Sodium Chloride () 250 mls @ 15 mls/hr IV .[id number] PRN PRN Reason: Saline Flush Last Infusion: 10/22/19 20:44 Dose: 0 mls/hr Documented by: Sodium Chloride () 250 mls @ 15 mls/hr IV .[id number] PRN PRN Reason: Additional IVPB Infusion Vancomycin IV Pharmacy to Dose (1 ea/ Sodium Chloride) 500 mls @ 250 mls/hr IV PRN PRN; Protocol PRN Reason: Rx to Dose Vancomycin HCl 750 mg/ Sodium (Chloride) 265 mls @ 250 mls/hr IV X1 ONE Stop: 10/24/19 22:03 Insulin Human Lispro (Humalog Kwikpen (Bkc)) 0 unit SC ACHS [facility]; Protocol Last Admin: 10/24/19 11:01 Dose: Not Given Documented by: Lactulose (Chronulac, Cephulac) 30 gm PO TID [facility] Last Admin: 10/24/19 14:08 Dose: Not Given Documented by: Melatonin (Melatonin) 5 mg PO QHS [facility] Last Admin: 10/23/19 23:16 Dose: 5 mg Documented by: Midodrine (Proamatine) 10 mg PO TID [facility] Last Admin: 10/24/19 14:08 Dose: Not Given Documented by: Multivit/Ca Carb/B Cmplx/FA/Prenat (Nephrocaps, Renaphro) 1 capsule PO DAILY [facility] Last Admin: 10/24/19 14:07 Dose: Not Given Documented by: Nitroglycerin (Nitrostat) 0.4 mg SUBLINGUAL Q5M PRN PRN Reason: CARDIAC/CHEST PAIN Nystatin (Mycostatin Powder) 1 applic TOPICAL BID [facility]; Protocol Last Admin: 10/24/19 10:40 Dose: 1 applicatio Documented by: Polyethylene Glycol (Miralax) 17 gm PO BID [facility] Last Admin: 10/24/19 10:14 Dose: Not Given Documented by: Pramipexole Dihydrochloride (Mirapex) 0.25 mg PO QHS [facility] Last Admin: 10/23/19 23:18 Dose: 0.25 mg Documented by: Promethazine HCl (Phenergan Tablet) 12.5 mg PO Q6H PRN PRN PRN Reason: NAUSEA Senna/Docusate Sodium (Senokot-S, Sarah-Colace) 2 tablet PO BID [facility] Last Admin: 10/24/19 10:15 Dose: Not Given Documented by: Sodium Chloride () 10 ml IV UD PRN PRN Reason: Dialysis Catheter Flush Last Admin: 10/23/19 09:59 Dose: 10 ml Documented by: Sodium Chloride () 10 - 40 ml IV UD PRN PRN Reason: SALINE FLUSH Medical Necessity - Tobacco Use Smoking Status: Never smoker Assessment/Plan All Active Problems (Last Reviewed 10/23/19 @ 16:[address] Timothy Chamberlain MD) Fecal impaction (Acute) Hematochezia (Acute) Acute on chronic anemia (Acute) Hyperkalemia (Acute) NSTEMI (non-ST elevated myocardial infarction) (Acute) CAD in [place] artery (Acute) Encephalopathy (Acute) Anemia (Acute) 1. ESRD HD MWF. Seen on dialysis 2. Liver cirrhosis with ascites s/p frequent paracentesis 3. Hx GI bleed 4. Hypotension midodrine 5. Rt breast pain. PCP mgmt
--- NOTE | 2019-10-24 14:54 | DIALYSIS ---
HD x 3.5 hours complete. Tolerated tx well. Ran on 3k bath. UF of 2000ml. Used left arm fistula. Needled removed post tx and pressure applied x 10 minutes. Hemostasis achieved. Fresh gauze and tape applied. Report was given to EDIN Velasco.
[2019-10-24 19:06] LABS: Bedside Glucose 91 mg/dL (70-110)
[2019-10-24] MEDS: 0.9% Saline Lock 10 ML Syringe IV (20:16)
[2019-10-24 23:15] LABS: Bedside Glucose 88 mg/dL (70-110)
[2019-10-25] VITALS (13 sets, daily range): BP systolic 98–148; BP diastolic 46–69; PULSE 74–104; RESP 16–20; TEMP 36.4–37; O2SAT 94–100
[2019-10-25] MEDS: Acetaminophen 325 MG Tablet 650 MG PO ×3 (00:06→23:04)
[2019-10-25] MEDS: Lactulose 20 GM/30 ML UDC 30 GM PO (06:21)
[2019-10-25] MEDS: Midodrine HCl 5 MG Tablet 10 MG PO ×3 (06:22→21:22)
[2019-10-25 06:37] LABS: Absolute Lymphocyte Count 1.34 X10^3/uL (0.83-4.51); Absolute Neutrophil Count 8.9 X10^3/uL (2.0-7.7); Basophil# 0.05 X10^3/uL; Basophil% 0.4 % (0-1); Eosinophil# 0.08 X10^3/uL; Eosinophils% 0.7 % (0-5); Hematocrit 33.9 % (37-47); Lymphocyte # 1.34 X10^3/ul (4.0); Mean Corp Hgb Conc 29.5 g/dL (32-36); Mean Corpuscular Hgb 30.1 pg (27.0-32.0); Mean Corpuscular Volume 102.1 fL (81-99); Mean Platelet Vol. 9.1 fl (6.2-12.0); Monocyte# 0.79 X10^3/uL; Monocyte% 7.1 % (0-10); NRBC Flagged by Analyzer 0 % (0-5); Neutrophil # 8.85 X10^3/uL (2.7-7.7); Neutrophil % 79.4 % (47-70); Platelet Count 187 K/mm3 (150-450); RBC Distribution Width CV 17.3 % (11.6-14.6); RBC Distribution Width SD 63.7 fl (35.1-43.9); Red Blood Count 3.32 M/mm3 (4.2-5.4); White Blood Count 11.2 K/mm3 (4.4-11.0)
[2019-10-25 06:45] LABS: Bedside Glucose 84 mg/dL (70-110)
[2019-10-25 07:00] LABS: Anion Gap 9 (5-15); BUN 12 mg/dL (7-18); BUN/Creat Ratio 4.5 RATIO (10-20); Calcium,Total 8.8 mg/dL (8.5-10.1); Chloride 98 mmol/L (98-107); Creatinine, Serum 2.66 mg/dL (0.55-1.02); EST Glomerular Filtration Rate 19 mL/min (>60); Est Glom Filt Rate - Afr Amer 22 mL/min (>60); Estimated Creatinine Clearance 16.19 ml/min; Glucose 82 mg/dL (74-106); Sodium Level 134 mmol/L (136-145)
--- NOTE | 2019-10-25 07:25 | PCM.PN.SRG ---
Patient Problems: Active and Suspected Problems (Last Reviewed 10/23/19 @ 16:[address] Timothy Chamberlain MD) NSTEMI (non-ST elevated myocardial infarction) (Acute) CAD in [place] artery (Acute) Encephalopathy (Acute) Anemia (Acute) Subjective: Patient is complaining of severe pain in the right breast - Physical Exam Vitals/I&O's: Vital Signs Temp Pulse Resp BP Pulse Ox 98.1 F 99 16 101/55 L 99 10/25/19 03:56 10/25/19 03:56 10/25/19 03:56 10/25/19 03:56 10/25/19 07:00 Oxygen Flow Rate (L/min) 2 Oxygen Delivery Method Nasal Cannula Weight: 198 lb 6.656 oz Body Mass Index (BMI) 33.7 Finger Stick Blood Glucose 99 Intake and Output for Last 24 Hours 10/23/19 10/24/19 10/25/19 23:59 23:59 23:59 Intake Total 1355.83 / 1355.83 1265 / 1265 240 / 240 Balance 1355.83 / 1355.83 1265 / 1265 240 / 240 General: Alert Lungs: Normal air movement Cardiovascular: Regular rate, Regular Rhythm Abdomen: Soft, Non Tender, Non-Distended Laboratory Results 10/24/19 10:38: POC Glucose 119 H 10/24/19 17:33: POC Glucose 91 10/24/19 22:49: POC Glucose 88 10/25/19 05:53: WBC 11.2 H, RBC 3.32 L, Hgb 10.0 L, Hct 33.9 L, MCV 102.1 H, MCH 30.1, MCHC 29.5 L, RDW Std Deviation 63.7 H, RDW Coeff of Susan 17.3 H, Plt Count 187, MPV 9.1, Immature Gran % (Auto) 0.400, Neut % (Auto) 79.4 H, Lymph % (Auto) 12.0 L, Carbon % (Auto) 7.1, Eos % (Auto) 0.7, Baso % (Auto) 0.4, Absolute Neuts (auto) 8.9 H, Absolute Lymphs (auto) 1.34, Nucleated RBC % 0 10/25/19 05:53: Sodium 134 L, Potassium 4.0, Chloride 98, Carbon Dioxide 27.0, Anion Gap 9, BUN 12, Creatinine 2.66 H, Estim Creat Clear Calc 16.19, Est GFR (MDRD) Af Amer 22 L, Est GFR (MDRD) Non-Af 19 L, BUN/Creatinine Ratio 4.5 L, Glucose 82, Calcium 8.8 10/25/19 06:19: POC Glucose 84 Current Medications Acetaminophen (Tylenol) 650 mg PO Q6H PRN PRN Reason: PAIN 1-10/FEVER Last Admin: 10/25/19 06:22 Dose: 650 mg Documented by: Cholecalciferol (Vitamin D (25mcg)) 5,000 unit PO MOWEFR [facility] Last Admin: 10/24/19 14:07 Dose: Not Given Documented by: Dextrose (D50w Syringe) 0 gm IV X1 PRN; Protocol PRN Reason: Hypoglycemia Glucagon () 1 mg IM .X1 PRN PRN Reason: Hypoglycemia Heparin Sodium (Porcine) () 2,500 units IV UD PRN PRN Reason: Dialysis Cath Heparin Flush Hydrocortisone Acetate (Anusol Hc) 25 mg RECTAL BID [facility] Last Admin: 10/24/19 23:06 Dose: 25 mg Documented by: Sodium Chloride () 250 mls @ 15 mls/hr IV .[id number] PRN PRN Reason: Saline Flush Last Infusion: 10/22/19 20:44 Dose: 0 mls/hr Documented by: Sodium Chloride () 250 mls @ 15 mls/hr IV .[id number] PRN PRN Reason: Additional IVPB Infusion Vancomycin IV Pharmacy to Dose (1 ea/ Sodium Chloride) 500 mls @ 250 mls/hr IV PRN PRN; Protocol PRN Reason: Rx to Dose Insulin Human Lispro (Humalog Kwikpen (Bkc)) 0 unit SC ACHS [facility]; Protocol Last Admin: 10/25/19 06:23 Dose: Not Given Documented by: Lactulose (Chronulac, Cephulac) 30 gm PO TID [facility] Last Admin: 10/25/19 06:21 Dose: 30 gm Documented by: Melatonin (Melatonin) 5 mg PO QHS [facility] Last Admin: 10/24/19 22:50 Dose: Not Given Documented by: Midodrine (Proamatine) 10 mg PO TID [facility] Last Admin: 10/25/19 06:22 Dose: 10 mg Documented by: Multivit/Ca Carb/B Cmplx/FA/Prenat (Nephrocaps, Renaphro) 1 capsule PO DAILY [facility] Last Admin: 10/24/19 14:07 Dose: Not Given Documented by: Nitroglycerin (Nitrostat) 0.4 mg SUBLINGUAL Q5M PRN PRN Reason: CARDIAC/CHEST PAIN Nystatin (Mycostatin Powder) 1 applic TOPICAL BID [facility]; Protocol Last Admin: 10/24/19 23:06 Dose: 1 applicatio Documented by: Polyethylene Glycol (Miralax) 17 gm PO BID [facility] Last Admin: 10/24/19 22:50 Dose: Not Given Documented by: Pramipexole Dihydrochloride (Mirapex) 0.25 mg PO QHS [facility] Last Admin: 10/24/19 22:50 Dose: Not Given Documented by: Promethazine HCl (Phenergan Tablet) 12.5 mg PO Q6H PRN PRN PRN Reason: NAUSEA Senna/Docusate Sodium (Senokot-S, Sarah-Colace) 2 tablet PO BID [facility] Last Admin: 10/24/19 22:50 Dose: Not Given Documented by: Sodium Chloride () 10 ml IV UD PRN PRN Reason: Dialysis Catheter Flush Last Admin: 10/24/19 20:16 Dose: 10 ml Documented by: Sodium Chloride () 10 - 40 ml IV UD PRN PRN Reason: SALINE FLUSH Medical Necessity - Tobacco Use Smoking Status: Never smoker Assessment/Plan All Active Problems (Last Reviewed 10/23/19 @ 16:[address] Timothy Chamberlain MD) Fecal impaction (Acute) Hematochezia (Acute) Acute on chronic anemia (Acute) Hyperkalemia (Acute) NSTEMI (non-ST elevated myocardial infarction) (Acute) CAD in [place] artery (Acute) Encephalopathy (Acute) Anemia (Acute) 74-year-old female with GI bleed and breast pain 1. The patient did not have any bloody bowel movements yesterday according to the nurse. The patient is not having any abdominal pain today. Hemoglobin is stable. Bleeding scan was negative. 2. Patient is complaining of severe pain in the right breast. She had a breast ultrasound yesterday. It is not officially read but I do not see any fluid collections to be drained. The breast itself seems edematous. The blood pressure cuff left pearce on her lateral breast and it seems that she has pitting edema of the skin in this area. There did not appear to be any erythema or warmth in the area. Her white count is slightly elevated. I am not sure if she is developing cellulitis of this area and antibiotics may or may not help. There is nothing to drain at this time. She does have a small open area on the left breast inferior to the nipple but this does not appear to be where her pain is originating. She reports her pain is in the lateral breast. Scott Curtis MD Pager: [facility] [address] [place] [address], [address] [place] [address] Office:
[2019-10-25] MEDS: 0.9% Saline Lock 10 ML Syringe IV (09:18)
[2019-10-25] MEDS: Senna/Docusate Sodium 1 Tablet 2 TABLET PO (09:21)
[2019-10-25] MEDS: Nystatin Powder 15gm Bottle 1 APPLIC TOPICAL (09:21)
[2019-10-25] MEDS: Hydrocortisone 25 MG Suppository RECTAL (09:22)
[2019-10-25] MEDS: Folic Acid/Vitamin B Comp W-C 1 Capsule 1 CAP PO (09:22)
--- NOTE | 2019-10-25 09:47 | PCM.PN.REN ---
Patient Problems: Active and Suspected Problems (Last Reviewed 10/23/19 @ 16:[address] Timothy Chamberlain MD) NSTEMI (non-ST elevated myocardial infarction) (Acute) CAD in [place] artery (Acute) Encephalopathy (Acute) Anemia (Acute) Subjective: frequent diarrhea, continues to have right breast pain. Ordered morphine. More alert today - Physical Exam Vitals/I&O's: Vital Signs Temp Pulse Resp BP Pulse Ox 98.0 F 87 20 H 117/55 L 100 10/25/19 08:57 10/25/19 08:57 10/25/19 08:57 10/25/19 08:57 10/25/19 08:57 Oxygen Flow Rate (L/min) 3 Oxygen Delivery Method Nasal Cannula Weight: 90 kg Body Mass Index (BMI) 33.7 Finger Stick Blood Glucose 99 Intake and Output for Last 24 Hours 10/23/19 10/24/19 10/25/19 23:59 23:59 23:59 Intake Total 1355.83 / 1355.83 1265 / 1265 240 / 240 Balance 1355.83 / 1355.83 1265 / 1265 240 / 240 General: Alert, Oriented x3, Cooperative, No apparent distress, - - gen weakness Lungs: Clear to auscultation Cardiovascular: Irregular Rate, Murmur Abdomen: Bowel Sounds Present, Soft, Distended, Obese, Tender Extremities: Edema - mild anasarca, chronic Skin: - - mild erythema rt lateral breast Musculoskeletal: Muscle Wasting, - - weakness Psych/Mental Status: Normal Affect, Alert and oriented to time, place, person, mood and affect Laboratory Results 10/24/19 10:38: POC Glucose 119 H 10/24/19 17:33: POC Glucose 91 10/24/19 22:49: POC Glucose 88 10/25/19 05:53: WBC 11.2 H, RBC 3.32 L, Hgb 10.0 L, Hct 33.9 L, MCV 102.1 H, MCH 30.1, MCHC 29.5 L, RDW Std Deviation 63.7 H, RDW Coeff of Susan 17.3 H, Plt Count 187, MPV 9.1, Immature Gran % (Auto) 0.400, Neut % (Auto) 79.4 H, Lymph % (Auto) 12.0 L, [place] % (Auto) 7.1, Eos % (Auto) 0.7, Baso % (Auto) 0.4, Absolute Neuts (auto) 8.9 H, Absolute Lymphs (auto) 1.34, Nucleated RBC % 0 10/25/19 05:53: Sodium 134 L, Potassium 4.0, Chloride 98, Carbon Dioxide 27.0, Anion Gap 9, BUN 12, Creatinine 2.66 H, Estim Creat Clear Calc 16.19, Est GFR (MDRD) Af Amer 22 L, Est GFR (MDRD) Non-Af 19 L, BUN/Creatinine Ratio 4.5 L, Glucose 82, Calcium 8.8 10/25/19 06:19: POC Glucose 84 Current Medications Acetaminophen (Tylenol) 650 mg PO Q6H PRN PRN Reason: PAIN 1-10/FEVER Last Admin: 10/25/19 06:22 Dose: 650 mg Documented by: Cholecalciferol (Vitamin D (25mcg)) 5,000 unit PO MOWEFR [facility] Last Admin: 10/24/19 14:07 Dose: Not Given Documented by: Dextrose (D50w Syringe) 0 gm IV X1 PRN; Protocol PRN Reason: Hypoglycemia Glucagon () 1 mg IM .X1 PRN PRN Reason: Hypoglycemia Heparin Sodium (Porcine) () 2,500 units IV UD PRN PRN Reason: Dialysis Cath Heparin Flush Hydrocortisone Acetate (Anusol Hc) 25 mg RECTAL BID [facility] Last Admin: 10/25/19 09:22 Dose: 25 mg Documented by: Sodium Chloride () 250 mls @ 15 mls/hr IV .[id number] PRN PRN Reason: Saline Flush Last Infusion: 10/22/19 20:44 Dose: 0 mls/hr Documented by: Sodium Chloride () 250 mls @ 15 mls/hr IV .[id number] PRN PRN Reason: Additional IVPB Infusion Vancomycin IV Pharmacy to Dose (1 ea/ Sodium Chloride) 500 mls @ 250 mls/hr IV PRN PRN; Protocol PRN Reason: Rx to Dose Insulin Human Lispro (Humalog Kwikpen (Bkc)) 0 unit SC ACHS [facility]; Protocol Last Admin: 10/25/19 06:23 Dose: Not Given Documented by: Lactulose (Chronulac, Cephulac) 30 gm PO DAILY [facility] Melatonin (Melatonin) 5 mg PO QHS [facility] Last Admin: 10/24/19 22:50 Dose: Not Given Documented by: Midodrine (Proamatine) 10 mg PO TID [facility] Last Admin: 10/25/19 06:22 Dose: 10 mg Documented by: Multivit/Ca Carb/B Cmplx/FA/Prenat (Nephrocaps, Renaphro) 1 capsule PO DAILY [facility] Last Admin: 10/25/19 09:22 Dose: 1 capsule Documented by: Nitroglycerin (Nitrostat) 0.4 mg SUBLINGUAL Q5M PRN PRN Reason: CARDIAC/CHEST PAIN Nystatin (Mycostatin Powder) 1 applic TOPICAL BID [facility]; Protocol Last Admin: 10/25/19 09:21 Dose: 1 applicatio Documented by: Pramipexole Dihydrochloride (Mirapex) 0.25 mg PO QHS [facility] Last Admin: 10/24/19 22:50 Dose: Not Given Documented by: Promethazine HCl (Phenergan Tablet) 12.5 mg PO Q6H PRN PRN PRN Reason: NAUSEA Senna/Docusate Sodium (Senokot-S, Sarah-Colace) 2 tablet PO BID [facility] Last Admin: 10/25/19 09:21 Dose: 2 tablet Documented by: Sodium Chloride () 10 ml IV UD PRN PRN Reason: Dialysis Catheter Flush Last Admin: 10/25/19 09:18 Dose: 10 ml Documented by: Sodium Chloride () 10 - 40 ml IV UD PRN PRN Reason: SALINE FLUSH Medical Necessity - Tobacco Use Smoking Status: Never smoker Assessment/Plan All Active Problems (Last Reviewed 10/23/19 @ 16:[address] Timothy Chamberlain MD) Fecal impaction (Acute) Hematochezia (Acute) Acute on chronic anemia (Acute) Hyperkalemia (Acute) NSTEMI (non-ST elevated myocardial infarction) (Acute) CAD in [place] artery (Acute) Encephalopathy (Acute) Anemia (Acute) 1. ESRD HD F. Next dialysis Sunday 2. Liver cirrhosis with ascites s/p frequent paracentesis 3. Hx GI bleed 4. Hypotension midodrine. Cautious use of narcotics 5. Rt breast pain. PCP mgmt 6. Altered mental status improved today 7. Diarrhea. stop miralax, decrease lactulose to daily
--- NOTE | 2019-10-25 10:08 | PN.CARD_ITS ---
Subjectve: Patient seen and evaluated. Appears to be stable. Apparently doing well this morning compared to previous Objective: Vital Signs Temp Pulse Resp BP Pulse Ox 98.0 F 87 20 H 117/55 L 100 10/25/19 08:57 10/25/19 08:57 10/25/19 08:57 10/25/19 08:57 10/25/19 08:57 Oxygen Flow Rate (L/min) 3 Oxygen Delivery Method Nasal Cannula Weight: 198 lb 6.656 oz Body Mass Index (BMI) 33.7 Finger Stick Blood Glucose 99 Intake and Output for Last 24 Hours 10/23/19 10/24/19 10/25/19 23:59 23:59 23:59 Intake Total 1355.83 / 1355.83 1265 / 1265 240 / 240 Balance 1355.83 / 1355.83 1265 / 1265 240 / 240 General: Ill Appearing HEENT: PERRL, EOMI, Sclera Non Icteric Lungs: Clear to auscultation Cardiovascular: Irregular Rhythm 10/25/19 05:53: WBC 11.2 H, RBC 3.32 L, Hgb 10.0 L, Hct 33.9 L, MCV 102.1 H, MCH 30.1, MCHC 29.5 L, Plt Count 187, MPV 9.1, Immature Gran % (Auto) 0.400, Neut % (Auto) 79.4 H, Lymph % (Auto) 12.0 L, [place] % (Auto) 7.1, Eos % (Auto) 0.7, Baso % (Auto) 0.4, Absolute Neuts (auto) 8.9 H, Nucleated RBC % 0 10/25/19 05:53: Sodium 134 L, Potassium 4.0, Chloride 98, Carbon Dioxide 27.0, Anion Gap 9, BUN 12, Creatinine 2.66 H, Est GFR (MDRD) Af Amer 22 L, Est GFR (MDRD) Non-Af 19 L, BUN/Creatinine Ratio 4.5 L, Glucose 82, Calcium 8.8 Rhythm: EKG: ECHO: Stress Test: Cardiac Cath: PCI: CT Surgery: Holter monitor: EPS: PPM: CXR: Chest CT Scan: Medical Necessity - Tobacco Use Smoking Status: Never smoker Assessment/Plan 1. Abnormal troponins: The exact etiology of her abnormal troponins is unclear at this particular time. However decision has been made to hold off on any cardiac catheterization at this particular time. We will continue with supportive management. To better evaluate the patient's cardiovascular condition she underwent a repeat echocardiogram in 10/21/2019 with the following results: Mild concentric left ventricular hypertrophy. The estimated ejection fraction is 65 %. Unable to assess diastolic dysfunction due to arrhythmia. Severely dilated right ventricle. Moderate global right ventricular systolic dysfunction. The left atrium is severely enlarged. The right atrium is severely enlarged. Moderately severe (3+) tricuspid valve insufficiency. Right ventricular systolic pressure estimated to be 35 mmHg, most likely underestimated. Immobile noncoronary cusp Severe diffuse aortic valve thickening. Moderate restriction of the aortic valve. Moderate to severe aortic stenosis. Peak aortic valve gradient 49 mmHg. Mean aortic valve gradient 26 mmHg. Calculated aortic valve area (continuity equation) is 0.9-1.0 cm2. Trivial pericardial effusion. There are no echocardiographic indications of cardiac tamponade. Compared to echo report dated 05/24/2019, LV function has remained the same, RVSP has decreased from 50 to 35 mmHg, and aortic valve gradient has remained about the same. Patient appears to be in atrial fibrillation. 2. Atrial fibrillation: If the patient was found to have a TIA/CVA, she will require anticoagulation therapy given her atrial fibrillation. This would be superimposed on her baby aspirin and Plavix. 3. Aortic stenosis: Patient has moderate aortic stenosis which is complicating her overall cardiovascular picture, increasing risk for any coronary i ntervention should that be necessary. Again I will hold off on recommending diagnostic coronary angiogram at this time until her metabolic status has improved as well as documentation that her lower GI bleeding has also resolved. 4. Hyperlipidemia: Recommend obtaining a fasting blood profile. We will see patient peripherally as needed.
[2019-10-25] MEDS: oxyCODONE 5 MG Tablet PO ×2 (10:34→23:05)
--- NOTE | 2019-10-25 13:02 | PN_ITS ---
Patient Problems: Active and Suspected Problems (Last Reviewed 10/23/19 @ 16:[address] Timothy Chamberlain MD) NSTEMI (non-ST elevated myocardial infarction) (Acute) CAD in [place] artery (Acute) Encephalopathy (Acute) Anemia (Acute) Subjective: Patient seen and examined. She was complaining of pain in the right breast. Patient was lying comfortably in bed but started complaining severely of right breast pain when I reviewed her. She was virtually in tears from the pain. Review of systems otherwise negative. She has not had any more rectal bleeding. And hemodynamically stable. Her white cell count is trended up slightly to 11.2. Vitals/I&O's: Vital Signs Temp Pulse Resp BP Pulse Ox 98.0 F 87 20 H 117/55 L 100 10/25/19 08:57 10/25/19 08:57 10/25/19 08:57 10/25/19 08:57 10/25/19 08:57 Oxygen Flow Rate (L/min) 3 Oxygen Delivery Method Nasal Cannula Weight: 198 lb 6.656 oz Body Mass Index (BMI) 33.7 Finger Stick Blood Glucose 99 Intake and Output for Last 24 Hours 10/23/19 10/24/19 10/25/19 23:59 23:59 23:59 Intake Total 1355.83 / 1355.83 1265 / 1265 240 / 240 Balance 1355.83 / 1355.83 1265 / 1265 240 / 240 General: Alert, Oriented, in moderate distress from pain HEENT: Atraumatic, PERRLA, EOMI, Normocephalic Oral: Dry Mucosa Neck: Supple, No JVD, Negative Carotid Bruits Lungs: mildly decreased breath sounds bibasally, no wheezes or crackles Cardiovascular: Regular rate, Regular Rhythm, Normal S1, Normal S2, No murmurs Abdomen: Bowel Sounds Present, Soft, Non Tender, Distended - positive fluid thrill due to ascites Extremities: No clubbing, No cyanosis, No edema, Capillary Refill Less than 3 Seconds Skin: No rashes, mild erythema and tenderness on lateral aspect of right breast, and beneath right nipple; area is indurated, and very tender. No visible discharge from nipple. healing scab beneath right nipple Musculoskeletal: No Tenderness to Palpation of Joints or Extremities Lymphatic: No Cervical, Supraclavicular, or Inguinal Adenopathy Neurological: Cranial nerves II-XII grossly intact, Neuro grossly intact, Motor Exam 5/5 strength throughout Psych/Mental Status: Normal Affect, Appropriate, Alert and oriented to time, place, person, mood and affect Laboratory Results 10/24/19 17:33: POC Glucose 91 10/24/19 22:49: POC Glucose 88 10/25/19 05:53: WBC 11.2 H, RBC 3.32 L, Hgb 10.0 L, Hct 33.9 L, MCV 102.1 H, MCH 30.1, MCHC 29.5 L, RDW Std Deviation 63.7 H, RDW Coeff of Susan 17.3 H, Plt Count 187, MPV 9.1, Immature Gran % (Auto) 0.400, Neut % (Auto) 79.4 H, Lymph % (Auto) 12.0 L, [place] % (Auto) 7.1, Eos % (Auto) 0.7, Baso % (Auto) 0.4, Absolute Neuts (auto) 8.9 H, Absolute Lymphs (auto) 1.34, Nucleated RBC % 0 10/25/19 05:53: Sodium 134 L, Potassium 4.0, Chloride 98, Carbon Dioxide 27.0, Anion Gap 9, BUN 12, Creatinine 2.66 H, Estim Creat Clear Calc 16.19, Est GFR (MDRD) Af Amer 22 L, Est GFR (MDRD) Non-Af 19 L, BUN/Creatinine Ratio 4.5 L, Glucose 82, Calcium 8.8 10/25/19 06:19: POC Glucose [address] 10/21/19 09:16 IMPRESSION: Chronic involutional changes of the brain. Electronically Signed: Eric Mckay, at 11:03 EDT , Service support , Chest X-Ray 10/21/19 10:33 IMPRESSION: Cardiomegaly. Stable mild increased markings at the lung bases slightly more prominent on the left side. Electronically Signed: Eric Mckay, at 11:06 EDT , Service support , Brain MRI 10/22/19 10:38 IMPRESSION: Chronic ischemic and involutional changes of the brain, as described above. Electronically Signed: Toribio Rodriguez MD at 18:58 EDT , Service support , GI Bleed Scan Nuclear Medicine 10/24/19 10:23 IMPRESSION: No evidence of active GI bleeding. Electronically Signed: Ramos Morales MD at 18:32 EDT , Service support , Current Medications Acetaminophen (Tylenol) 650 mg PO Q6H PRN PRN Reason: PAIN 1-10/FEVER Last Admin: 10/25/19 06:22 Dose: 650 mg Documented by: Cholecalciferol (Vitamin D (25mcg)) 5,000 unit PO MOWEFR FAR[facility]NA Last Admin: 10/24/19 14:07 Dose: Not Given Documented by: Dextrose (D50w Syringe) 0 gm IV X1 PRN; Protocol PRN Reason: Hypoglycemia Glucagon () 1 mg IM .X1 PRN PRN Reason: Hypoglycemia Heparin Sodium (Porcine) () 2,500 units IV UD PRN PRN Reason: Dialysis Cath Heparin Flush Hydrocortisone Acetate (Anusol Hc) 25 mg RECTAL BID [facility]AR[facility]NA Last Admin: 10/25/19 09:22 Dose: 25 mg Documented by: Sodium Chloride () 250 mls @ 15 mls/hr IV .[id number] PRN PRN Reason: Saline Flush Last Infusion: 10/22/19 20:44 Dose: 0 mls/hr Documented by: Sodium Chloride () 250 mls @ 15 mls/hr IV .[id number] PRN PRN Reason: Additional IVPB Infusion Vancomycin IV Pharmacy to Dose (1 ea/ Sodium Chloride) 500 mls @ 250 mls/hr IV PRN PRN; Protocol PRN Reason: Rx to Dose Insulin Human Lispro (Humalog Kwikpen (Bkc)) 0 unit SC ACHS FARZANA; Protocol Last Admin: 10/25/19 12:11 Dose: Not Given Documented by: Lactulose (Chronulac, Cephulac) 30 gm PO DAILY [facility] Melatonin (Melatonin) 5 mg PO QHS [facility] Last Admin: 10/24/19 22:50 Dose: Not Given Documented by: Midodrine (Proamatine) 10 mg PO TID [facility] Last Admin: 10/25/19 06:22 Dose: 10 mg Documented by: Multivit/Ca Carb/B Cmplx/FA/Prenat (Nephrocaps, Renaphro) 1 capsule PO DAILY [facility] Last Admin: 10/25/19 09:22 Dose: 1 capsule Documented by: Nitroglycerin (Nitrostat) 0.4 mg SUBLINGUAL Q5M PRN PRN Reason: CARDIAC/CHEST PAIN Nystatin (Mycostatin Powder) 1 applic TOPICAL BID [facility]; Protocol Last Admin: 10/25/19 09:21 Dose: 1 applicatio Documented by: Oxycodone HCl (Oxyir) 5 mg PO Q6H PRN PRN PRN Reason: Pain Score 6-10/10 Last Admin: 10/25/19 10:34 Dose: 5 mg Documented by: Pramipexole Dihydrochloride (Mirapex) 0.25 mg PO QHS [facility] Last Admin: 10/24/19 22:50 Dose: Not Given Documented by: Promethazine HCl (Phenergan Tablet) 12.5 mg PO Q6H PRN PRN PRN Reason: NAUSEA Senna/Docusate Sodium (Senokot-S, Sarah-Colace) 2 tablet PO BID [facility] Last Admin: 10/25/19 09:21 Dose: 2 tablet Documented by: Sodium Chloride () 10 ml IV UD PRN PRN Reason: Dialysis Catheter Flush Last Admin: 10/25/19 09:18 Dose: 10 ml Documented by: Sodium Chloride () 10 - 40 ml IV UD PRN PRN Reason: SALINE FLUSH Medical Necessity - Tobacco Use Smoking Status: Never smoker Assessment/Plan All Active Problems (Last Reviewed 10/23/19 @ 16:[address] Timothy Chamberlain MD) Fecal impaction (Acute) Hematochezia (Acute) Acute on chronic anemia (Acute) Hyperkalemia (Acute) NSTEMI (non-ST elevated myocardial infarction) (Acute) CAD in [place] artery (Acute) Encephalopathy (Acute) Anemia (Acute) 74 y/o admitted with a complaint of confusion, which had resolved by time of review 1. Acute metabolic encephalopathy * resolved. * EEG showed abnormal waking EEG with diffuse slowing suggestive of an encephalopathy ie metabolic, toxic and anoxic. * neurology reviewed patient- think it is a toxic metabolic encephalopathy and unlikely to be CVA or seizures; recommend outpaient formal neurocognitive evaluation * fall precautions. PT/OT on board * CT and MRI of the brain were negative for stroke. * 2. nonstemi * initial troponin was 1.25 and peaked at 1.7 * last 2D echo in may 2019 showed EF of 55%, with normal LV systolic function and mild to moderate aortic stenosis, and moderate tricuspid valve insufficiency. * cardiology on board; on aspirin, statin and plavix as well as beta morelia. * for medical management, according to cardiology. * will resume aspirina nd statin today, per discussion with general surgery * 3. Cellulitis of right breast: * area is still firm and indurated. * On IV vancomycin, dosed with dialysis. has mild leucocytosis today * general surgery reviewed patient and think it is just induration, no cellulitis or abscess. * Breast ultrasound ordered and reading is pending. * 4. rectal bleeding * Has not recurred. * Patient did have EGD and colonoscopy in March 2019 also for rectal bleeding but this was negative. * But discussion with general surgery, will resume aspirin and Plavix today. To do bleeding scan bleeding recurs. * 5. ESRD on hemodialysis: Has hemodialysis Wednesdays. nephrology on board. 6. Ascites due to liver cirrhosis: Had paracentesis this week. Has paracentesis every 2 weeks. On lactulose. 7. Anemia of chronic disease: Hb is 10 stable. 8. Hyperlipidemia and hypertension: On statin. 9. History of A. fib: Currently rate controlled. 10. Type 2 diabetes mellitus: * on lantus 11 units qhs * ISS. Accuchecks ACHS DVT prophylaxis: SCDs; heparin on hold Code status: full code Inpatient E&M: 78746 Subs Hosp L2
--- NOTE | 2019-10-25 13:14 | CASEMGMT ---
SW spoke w/pt briefly, she is reporting to be in a lot of pain, and she states does not know the discharge plan. Pt okay w/SW calling daughter to check in regarding plan. SW called daughter Jackeline to inquire what the plan may be. She states she does not know. She confirmed both pt and pt's have been staying w/pt's sister Eva in [place], and that the three daughters all go in to help care for pt. She states pt's has dementia. Jackeline is not certain if pt has POA but pt has stated in the past she wants Jackeline to be the POA. SW checked, there are no papers on the chart, SW let Jackeline know. Jackeline explained pt has been to [facility] in the past and if rehab is needed this is likely where they would want to send pt. She states does not know what is going on w/pt medically however. SW explained will see if physician may be able to call her, and then we can see what pt will need closer to discharge. SW texted physician to ask if she can call family. MARGO will continue to follow for appropriate discharge planning. MANDY Roman
[2019-10-25] MEDS: Ketorolac 30 MG/ML Syringe IM (15:30)
--- NOTE | 2019-10-25 15:49 | CASEMGMT ---
LW/POA forms not on chart, SW let daughter know. She is not certain if pt has completed them. Pt would not be able to complete today as she is not feeling well. MANDY Roman
[2019-10-25 15:56] LABS: Bedside Glucose 126 mg/dL (70-110)
[2019-10-25] MEDS: Aspirin 81 MG TAB.CHEW PO (16:52)
[2019-10-25] MEDS: Clopidogrel Bisulfate 75 MG Tablet PO (16:52)
[2019-10-25] MEDS: Insulin Lispro 100 UNIT/ML INSULN.PEN SC ×2 (16:57→21:22)
[2019-10-25 17:30] LABS: Bedside Glucose 168 mg/dL (70-110)
[2019-10-25] MEDS: Pramipexole Di-HCl 0.25 MG Tablet PO (21:22)
[2019-10-25] MEDS: MELATONIN 10 MG TABLET 5 MG PO (21:22)
[2019-10-25 22:11] LABS: Bedside Glucose 167 mg/dL (70-110)
[2019-10-26] VITALS (7 sets, daily range): BP systolic 104–120; BP diastolic 56–62; PULSE 65–94; RESP 16–19; TEMP 36.4–36.8; O2SAT 94–97
[2019-10-26] MEDS: Midodrine HCl 5 MG Tablet 10 MG PO ×2 (05:56→12:34)
[2019-10-26] MEDS: 0.9% Saline Lock 10 ML Syringe IV (06:00)
[2019-10-26 06:06] LABS: Bedside Glucose 137 mg/dL (70-110)
[2019-10-26 06:32] LABS: Absolute Lymphocyte Count 1.68 X10^3/uL (0.83-4.51); Absolute Neutrophil Count 6.9 X10^3/uL (2.0-7.7); Basophil# 0.06 X10^3/uL; Basophil% 0.6 % (0-1); Eosinophil# 0.23 X10^3/uL; Eosinophils% 2.4 % (0-5); Hematocrit 39.5 % (37-47); Hemoglobin 10.8 g/dL (12.0-15.0); Lymphocyte # 1.68 X10^3/ul (4.0); Lymphocyte % 17.3 % (19-41); Mean Corp Hgb Conc 27.3 g/dL (32-36); Mean Corpuscular Hgb 30.6 pg (27.0-32.0); Mean Corpuscular Volume 111.9 fL (81-99); Mean Platelet Vol. 8.8 fl (6.2-12.0); Monocyte# 0.79 X10^3/uL; Monocyte% 8.2 % (0-10); NRBC Flagged by Analyzer 0 % (0-5); Neutrophil # 6.87 X10^3/uL (2.7-7.7); Neutrophil % 70.9 % (47-70); POSITIVE MORPHOLOGY YES; Platelet Count 150 K/mm3 (150-450); RBC Distribution Width SD 72.4 fl (35.1-43.9); Red Blood Count 3.53 M/mm3 (4.2-5.4); White Blood Count 9.7 K/mm3 (4.4-11.0)
[2019-10-26 06:45] LABS: Differential Indicated SCAN CRITERIA MET
[2019-10-26 06:59] LABS: Anion Gap 7 (5-15); BUN 19 mg/dL (7-18); BUN/Creat Ratio 5.6 RATIO (10-20); Calcium,Total 8.7 mg/dL (8.5-10.1); Chloride 99 mmol/L (98-107); Creatinine, Serum 3.38 mg/dL (0.55-1.02); EST Glomerular Filtration Rate 14 mL/min (>60); Est Glom Filt Rate - Afr Amer 17 mL/min (>60); Estimated Creatinine Clearance 12.74 ml/min; Glucose 144 mg/dL (74-106); Potassium 4.2 mmol/L (3.5-5.1); Sodium Level 133 mmol/L (136-145)
[2019-10-26 08:01] LABS: Anisocytosis 2+; Differential Comment SCANNED
[2019-10-26 08:02] LABS: Macrocytosis 1+; Microcytosis 1+
--- NOTE | 2019-10-26 08:37 | PCM.PN.CARD ---
Subjectve: Patient seen sitting in chair. Eating breakfast of velasco and eggs Objective: Vital Signs Temp Pulse Resp BP Pulse Ox 97.5 F L 84 16 104/60 96 10/26/19 03:20 10/26/19 03:20 10/26/19 03:20 10/26/19 03:20 10/26/19 07:05 Oxygen Flow Rate (L/min) 2 Oxygen Delivery Method Nasal Cannula Weight: 199 lb 1.239 oz Body Mass Index (BMI) 33.7 Finger Stick Blood Glucose 99 Intake and Output for Last 24 Hours 10/24/19 10/25/19 10/26/19 23:59 23:59 23:59 Intake Total 1265 / 1265 460 / 460 120 / 120 Balance 1265 / 1265 460 / 460 120 / 120 General: Awake, Alert, Oriented x 3 HEENT: PERRL, EOMI, Sclera Non Icteric Neck: Supple, Good ROM, No Lymph Node Enlargement Lungs: Clear to auscultation Cardiovascular: Regular Rhythm, Normal S1, Normal S2, No Murmurs, No Rubs, No Gallops Vascular: No Carotid Bruits, Normal Femoral Pulses, Normal Radial Pulses, Normal Dorsalis Pedal Pulse, Normal Posterior Tibial Pulses Abdomen: Bowel Sounds Present, Soft, Non Tender, No HSM, No Organomegaly Extremities: No Cyanosis, No Clubbing, No edema Musculoskeletal: No Erythema Neurological: No Focal Motor or Sensory Deficit 10/26/19 06:20: Sodium 133 L, Potassium 4.2, Chloride 99, Carbon Dioxide 27.0, Anion Gap 7, BUN 19 H, Creatinine 3.38 H, Est GFR (MDRD) Af Amer 17 L, Est GFR (MDRD) Non-Af 14 L, BUN/Creatinine Ratio 5.6 L, Glucose 144 H, Calcium 8.7 10/26/19 06:20: WBC 9.7, RBC 3.53 L, Hgb 10.8 L, Hct 39.5, MCV 111.9 H D, MCH 30.6, MCHC 27.3 L D, Plt Count 150, MPV 8.8, Immature Gran % (Auto) 0.600, Neut % (Auto) 70.9 H, Lymph % (Auto) 17.3 L, [place] % (Auto) 8.2, Eos % (Auto) 2.4, Baso % (Auto) 0.6, Absolute Neuts (auto) 6.9, Nucleated RBC % 0 Rhythm: EKG: ECHO: Stress Test: Cardiac Cath: PCI: CT Surgery: Holter monitor: EPS: PPM: CXR: Chest CT Scan: Medical Necessity - Tobacco Use Smoking Status: Never smoker Assessment/Plan 1. Abnormal troponins: The exact etiology of her abnormal troponins is unclear at this particular time. However decision has been made to hold off on any cardiac catheterization at this particular time. We will continue with supportive management. To better evaluate the patient's cardiovascular condition she underwent a repeat echocardiogram in 10/21/2019 demonstrated overall preserved left ventricular systolic function, severely dilated right ventricle with global systolic dysfunction and biatrial enlargement. There was moderate aortic stenosis with a valve area of approximately 1.0 cm?. 2. Atrial fibrillation: If the patient was found to have a TIA/CVA, she will require anticoagulation therapy given her atrial fibrillation. This would be superimposed on her baby aspirin and Plavix. 3. Aortic stenosis: Patient has moderate aortic stenosis which is complicating her overall cardiovascular picture, increasing risk for any coronary intervention should that be necessary. Again I will hold off on recommending diagnostic coronary angiogram at this time until her metabolic status has improved as well as documentation that her lower GI bleeding has also resolved. 4. Hyperlipidemia: Recommend obtaining a fasting blood profile. We will see patient peripherally as needed. Follow-up with primary environmental health officer Dr. Frye.
[2019-10-26] MEDS: Senna/Docusate Sodium 1 Tablet 2 TABLET PO (09:30)
[2019-10-26] MEDS: Hydrocortisone 25 MG Suppository RECTAL (09:30)
[2019-10-26] MEDS: Aspirin 81 MG TAB.CHEW PO (09:30)
[2019-10-26] MEDS: Lactulose 20 GM/30 ML UDC 30 GM PO (09:30)
[2019-10-26] MEDS: Folic Acid/Vitamin B Comp W-C 1 Capsule 1 CAP PO (09:30)
[2019-10-26] MEDS: Clopidogrel Bisulfate 75 MG Tablet PO (09:30)
[2019-10-26] MEDS: Nystatin Powder 15gm Bottle 1 APPLIC TOPICAL (09:31)
[2019-10-26] MEDS: oxyCODONE 5 MG Tablet PO (09:33)
--- NOTE | 2019-10-26 11:59 | DCINST_ITS ---
- Discharge Diagnoses Current Active Problems: Current Active and Chronic Problems (Last Reviewed 10/23/19 @ 16:[address] Timothy Chamberlain MD) NSTEMI (non-ST elevated myocardial infarction) (Acute) CAD in [place] artery (Acute) S/P PTCA (percutaneous transluminal coronary angioplasty) (Chronic) Encephalopathy (Acute) Anemia (Acute) You will use the following diet at home:: Cardiac Your food should be the consistency of: Regular Your liquids should be the consistency of: Regular/Thin Discharge Activity: Return to Normal Activity Weight Bearing Status: Weight bearing as tolerated Call your doctor if you observe: Fever of 101 or Higher, Coldness, Increased Pain, Shortness of breath, Dizziness, Fainting spells, Uncontrolled pain Instructions: Cellulitis Allergies/Adverse Reactions: Allergies lisinopril Allergy (Severe, Verified 10/21/19 09:09) Angioedema nebivolol HCl [From Bystolic] Adverse Reaction (Severe, Verified 10/21/19 09:09) bradycardia BRADYCARDIA Medications to take at Discharge Acetaminophen [Tylenol] 650 mg PO Q6H PRN 08/06/19 B Complex W-C No.20/Folic Acid [Virt-Caps Softgel] 1 mg PO DAILY 08/06/19 Cholecalciferol (VIT D3) [Vitamin D3] 5,000 unit PO MOWEFR 08/06/19 Melatonin 5 mg PO QHS 08/06/19 Nitroglycerin 0.4 mg SL PRN PRN 08/06/19 Ropinirole HCl [Requip] 2 tab PO QHS 08/06/19 Oxycodone HCl/Acetaminophen [Percocet 10-325 mg Tablet] 1 tab PO Q6H PRN PRN 09/24/19 proMETHazine tablet [Phenergan tablet] 12.5 mg PO Q6H PRN PRN 09/24/19 Lactulose [Chronulac] 30 gm PO TID 10/21/19 Midodrine HCl 10 mg PO TID 10/21/19 Nystatin Powder [Mycostatin Powder] 1 applic TOPICAL BID 10/21/19 Polyethylene Glycol 3350 [Miralax] 17 gm PO BID 10/21/19 Senna/Docusate Sodium [Senokot-S] 2 tab PO BID 10/21/19 Doxycycline 100 mg PO BID 5 Days #10 cap 10/26/19 Nitroglycerin (INPATIENT USE) [Nitrostat] 0.4 mg SUBLINGUAL Q5M PRN tab.subl 10/26/19 The following prescriptions were given: Doxycycline 100 mg PO BID 5 Days #10 cap Transmission Status: Pending to [id number] Primary Care Physician: Davy Coleman MD [Primary Care Provider] - Please follow up with your Primary Care Physician in: 1-2 weeks Test Results: Test results from this visit will be discussed in further detail at your follow- up appointment, if applicable. Please Follow Up With: Davy Coleman MD Please Follow Up With: Ultrasound for paracentesis Please Follow Up With: Timothy Frye MD When: 1-2 weeks Please Follow Up With: Timothy Chamberlain MD When: 1-2 weeks Please Follow Up With: Anuradha Crawley DO When: 1-2 weeks Proposed Discharge Date: 10/26/19
--- NOTE | 2019-10-26 12:02 | PCM.DC.SUM ---
Discharge Date and Diagnosis - Problem List Patient Problems: Active and Suspected Problems (Last Reviewed 10/23/19 @ 16:[address] Timothy Chamberlain MD) NSTEMI (non-ST elevated myocardial infarction) (Acute) CAD in [place] artery (Acute) Encephalopathy (Acute) Anemia (Acute) Date of Admission: 10/21/19 Date of Discharge: 10/26/19 - Primary Discharge Diagnosis Acute Problems: Active Problems (Last Reviewed 10/23/19 @ 16:[address] Timothy Chamberlain MD) NSTEMI (non-ST elevated myocardial infarction) (Acute) CAD in [place] artery (Acute) Encephalopathy (Acute) Anemia (Acute) rectal bleeding right breast swelling - Secondary Discharge Diagnosis Chronic Problems: Chronic Problems (Last Reviewed 10/23/19 @ 16:[address] Timothy Chamberlain MD) Cirrhosis of liver with ascites (Chronic) Chronic pain syndrome (Chronic) Chronic narcotic use (Chronic) S/P PTCA (percutaneous transluminal coronary angioplasty) (Chronic) Altered mental status (Chronic) Hypotension (Chronic) on Midodrin History of GI bleed (Chronic) History of non-ST elevation myocardial infarction (NSTEMI) (Chronic 07/05/16) Atherosclerotic heart disease of [place] coronary artery without angina pectoris (Chronic) Stented coronary artery (Chronic) Cutting Balloon and TAMI (3.0X18 mm Xience) Proximal LAD 04/18/2012; Rotational atherectomy to proximal, id and distal RCA with two overlapping 4.0 X 38 Synergy TAMI ([facility] main) Ascites (Chronic) Pancytopenia (Chronic) Other specified peripheral vascular diseases (Chronic) Afib (Chronic) Congenital coronary artery anomaly (Chronic) Bradycardia (Chronic) Suspect sick sinus syndrome Diabetes mellitus, type II (Chronic) Hyperlipidemia (Chronic) Hypothyroidism (Chronic) Anemia in chronic kidney disease (Chronic) Hypertension (Chronic) End stage renal disease on dialysis (Chronic) Hospital Course and Treatment cardiology- Dr Frye general surgery- Dr Chamberlain nephrology- Dr Crawley Operations: None, - Procedures: 2-D Echocardiogram Summary of Care Provided: The patient is a 74 year old F with an extensive past medical history as outlined. She was admitted through the ED on 10/21/2019 with a complaint of confusion and altered mental status. Patient states she woke up screaming at the top of her head and kept saying things like get me out of here I cannot get out of here. She thinks her confusion lasted about 30 minutes. Per discussion with ED doctor, patient had told him that at the time she woke up confused, she knew what she wanted to say but felt like she could just not get it out. However during my review with patient, patient told me that she was screaming out loud and knew that what she was saying did not make sense but she could not stop herself. I emphatically asked patient if she felt like she could not get her words out and she said she could get her words out but she just knew that it was not making much sense. Symptoms resolved subsequently. Patient was seen in the ED just 1 day prior to this admission with confusion and had paracentesis done with removal of 4 L of fluid. She then went to the dialysis center and had removal of 3 L of fluid. She denied any fever, chills, cough or chest pain, shortness of breath, nausea vomiting, abdominal pain or diarrhea. Patient has had repeated admissions for hypotension due to dialysis and paracentesis as well as had similar acute metabolic encephalopathy. She was here in August 2019 with similar complaints and had a full work-up for stroke with MRI of the brain and CT of the head as well as carotid duplex which were all negative for stroke. She was admitted to be managed for acute metabolic encephalopathy of unclear etiology. She was hydrated with IV fluids. Troponins trended up to 1.7 so she was also diagnosed with non-STEMI and cardiology consulted. Patient continued on aspirin, statin and Plavix as well as beta-socorro. Neurology was consulted and thought patient likely had a toxic metabolic encephalopathy which was unlikely to be CVA or seizures and recommended outpatient formal neurocognitive evaluation. Nephrology was also consulted for dialysis. MRI of the brain was done which was negative for any stroke. Of note, patient stay was further complicated by rectal bleeding. Aspirin and Plavix were held and heparin discontinued and general surgery consulted. Patient had had EGD and colonoscopy in March 2019 for rectal bleeding but this was negative for any findings. PT/INR were within normal limits. General surgery evaluated patient and opted for conservative management as she had recently had an EGD and colonoscopy recommended that if bleeding recurred, she could have a bleeding scan. Patient subsequently complained of pain in the lateral aspect of the right breast. Area was indurated and erythematous and she was started on IV vancomycin for right breast cellulitis. Rectal bleeding subsequently resolved. Hemoglobin remained stable. 2D echocardiogram done showed EF of 65% and unable to assess diastolic dysfunction due to arrhythmia with no regional motion abnormality seen. Severely dilated right ventricle with moderate global right ventricular systolic dysfunction and severely enlarged left atrium and right atrium. RVSP was 35 mmHg and she had moderate aortic stenosis. Patient remained stable, pain in right breast improved. She had right breast ultrasound done which was negative for any abscess, and was BIRADS 1 category negative. GI bleeding scan done was negative for any evidence of GI bleeding. Patient remained stable, pain improved and she was discharged on 10/26/2019 with a prescription for p.o. doxycycline 100 mg twice daily for 5 days. She is to follow-up with her primary care doctor who is to refer her to neurology on outpatient basis and is also to follow-up with general surgery and nephrology as well as cardiology. Patient seen and examined prior to discharge. She was sitting comfortably in her chair eating breakfast and requested to be discharged home. She had no complaints and pain in breast had completely resolved. Review of symptoms otherwise negative. Labs and vitals reviewed. Home medication reviewed and reconciled. O/e: Vital Signs Temp Pulse Resp BP Pulse Ox 97.9 F 94 19 H 120/56 L 94 10/26/19 09:38 10/26/19 09:38 10/26/19 09:38 10/26/19 09:38 10/26/19 09:38 General: Alert, Oriented, though does seem to have some baseline confusion, Cooperative, No apparent distress HEENT: Atraumatic, PERRLA, EOMI, Normocephalic Oral: Dry Mucosa Neck: Supple, No JVD, Negative Carotid Bruits Lungs: No rhonchi, - - decreased breath sounds bibasally, no wheezes or crackles Cardiovascular: Regular rate, Regular Rhythm, Normal S1, Normal S2, No murmurs Abdomen: Bowel Sounds Present, Soft, Non Tender, Distended - positive fluid thrill due to ascites Extremities: No clubbing, No cyanosis, No edema, Capillary Refill Less than 3 Seconds Skin: No rashes, mild erythema and tenderness on lateral aspect of right breast, and beneath right nipple; area is indurated, and only mildly tender. No visible discharge from nipple. healing scab beneath right nipple Musculoskeletal: No Tenderness to Palpation of Joints or Extremities Lymphatic: No Cervical, Supraclavicular, or Inguinal Adenopathy Neurological: Cranial nerves II-XII grossly intact, Neuro grossly intact, Motor Exam 5/5 strength throughout Psych/Mental Status: Normal Affect, Appropriate, Alert and oriented to time, place, person, mood and affect Plan is to discharge home today. It must be noted that during the course of admission, hospice and palliative care were broached with patient but she refused. It turned out she had signed papers with palliative care 2 weeks prior to admission. When asked about this, she says she had signed some papers but did not know what it was about and denied knowing what palliative care was about. Discussion about hospice and palliative care will likely need to be brought up on outpatient basis again when she sees PCP. Patient Problems: Active and Suspected Problems (Last Reviewed 10/23/19 @ 16:[address] Timothy Chamberlain MD) NSTEMI (non-ST elevated myocardial infarction) (Acute) CAD in [place] artery (Acute) Encephalopathy (Acute) Anemia (Acute) - Physical Exam Vitals/I&O's: Vital Signs Temp Pulse Resp BP Pulse Ox 97.9 F 94 19 H 120/56 L 94 10/26/19 09:38 10/26/19 09:38 10/26/19 09:38 10/26/19 09:38 10/26/19 09:38 Oxygen Flow Rate (L/min) 2 Oxygen Delivery Method Room Air Weight: 199 lb 1.239 oz Body Mass Index (BMI) 33.7 Finger Stick Blood Glucose 99 Intake and Output for Last 24 Hours 10/24/19 10/25/19 10/26/19 23:59 23:59 23:59 Intake Total 1265 / 1265 460 / 460 120 / 120 Balance 1265 / 1265 460 / 460 120 / 120 Laboratory Results 10/25/19 11:51: POC Glucose 126 H 10/25/19 16:45: POC Glucose 168 H 10/25/19 21:16: POC Glucose 167 H 10/26/19 06:01: POC Glucose 137 H 10/26/19 06:20: Sodium 133 L, Potassium 4.2, Chloride 99, Carbon Dioxide 27.0, Anion Gap 7, BUN 19 H, Creatinine 3.38 H, Estim Creat Clear Calc 12.74, Est GFR (MDRD) Af Amer 17 L, Est GFR (MDRD) Non-Af 14 L, BUN/Creatinine Ratio 5.6 L, Glucose 144 H, Calcium 8.7 10/26/19 06:20: WBC 9.7, RBC 3.53 L, Hgb 10.8 L, Hct 39.5, MCV 111.9 H D, MCH 30.6, MCHC 27.3 L D, RDW Std Deviation 72.4 H, RDW Coeff of Susan 18.0 H, Plt Count 150, MPV 8.8, Immature Gran % (Auto) 0.600, Neut % (Auto) 70.9 H, Lymph % (Auto) 17.3 L, [place] % (Auto) 8.2, Eos % (Auto) 2.4, Baso % (Auto) 0.6, Absolute Neuts (auto) 6.9, Absolute Lymphs (auto) 1.68, Nucleated RBC % 0, Differential Comment SCANNED, Anisocytosis 2+, Microcytosis 1+, Macrocytosis 1+ Diagnostic Data Brain CT 10/21/19 09:16 IMPRESSION: Chronic involutional changes of the brain. Electronically Signed: Eric Mckay, at 11:03 EDT , Service support , Chest X-Ray 10/21/19 10:33 IMPRESSION: Cardiomegaly. Stable mild increased markings at the lung bases slightly more prominent on the left side. Electronically Signed: Eric Mckay at 11:06 EDT , Service support , Brain MRI 10/22/19 10:38 IMPRESSION: Chronic ischemic and involutional changes of the brain, as described above. Electronically Signed: Toribio Rodriguez MD at 18:58 EDT , Service support , GI Bleed Scan Nuclear Medicine 10/24/19 10:23 IMPRESSION: No evidence of active GI bleeding. Electronically Signed: Ramos Morales MD at 18:32 EDT , Service support , Breast Ultrasound 10/24/19 13:06 IMPRESSION: No evidence of abscess. ASSESSMENT CATEGORY: BIRADS Category 1: Negative. A letter regarding these results will be sent to the patient by the facility within 30 days. Electronically Signed: Diogo Pearl MD at 15:41 EDT Tel , Service support , Current Medications Acetaminophen (Tylenol) 650 mg PO Q6H PRN PRN Reason: PAIN 1-10/FEVER Last Admin: 10/25/19 23:04 Dose: 650 mg Documented by: Aspirin (Aspirin, Baby) 81 mg PO DAILY@0800 [facility] Last Admin: 10/26/19 09:30 Dose: 81 mg Documented by: Cholecalciferol (Vitamin D (25mcg)) 5,000 unit PO MOWEFR [facility] Last Admin: 10/24/19 14:07 Dose: Not Given Documented by: Clopidogrel Bisulfate (Plavix) 75 mg PO DAILY [facility] Last Admin: 10/26/19 09:30 Dose: 75 mg Documented by: Dextrose (D50w Syringe) 0 gm IV X1 PRN; Protocol PRN Reason: Hypoglycemia Glucagon () 1 mg IM .X1 PRN PRN Reason: Hypoglycemia Heparin Sodium (Porcine) () 2,500 units IV UD PRN PRN Reason: Dialysis Cath Heparin Flush Hydrocortisone Acetate (Anusol Hc) 25 mg RECTAL BID [facility] Last Admin: 10/26/19 09:30 Dose: 25 mg Documented by: Sodium Chloride () 250 mls @ 15 mls/hr IV .[id number] PRN PRN Reason: Saline Flush Last Infusion: 10/22/19 20:44 Dose: 0 mls/hr Documented by: Sodium Chloride () 250 mls @ 15 mls/hr IV .[id number] PRN PRN Reason: Additional IVPB Infusion Vancomycin IV Pharmacy to Dose (1 ea/ Sodium Chloride) 500 mls @ 250 mls/hr IV PRN PRN; Protocol PRN Reason: Rx to Dose Insulin Human Lispro (Humalog Kwikpen (Bkc)) 0 unit SC ACHS [facility]; Protocol Last Admin: 10/26/19 06:01 Dose: Not Given Documented by: Lactulose (Chronulac, Cephulac) 30 gm PO DAILY [facility] Last Admin: 10/26/19 09:30 Dose: 30 gm Documented by: Melatonin (Melatonin) 5 mg PO QHS [facility] Last Admin: 10/25/19 21:22 Dose: 5 mg Documented by: Midodrine (Proamatine) 10 mg PO TID [facility] Last Admin: 10/26/19 05:56 Dose: 10 mg Documented by: Multivit/Ca Carb/B Cmplx/FA/Prenat (Nephrocaps, Renaphro) 1 capsule PO DAILY [facility] Last Admin: 10/26/19 09:30 Dose: 1 capsule Documented by: Nitroglycerin (Nitrostat) 0.4 mg SUBLINGUAL Q5M PRN PRN Reason: CARDIAC/CHEST PAIN Nystatin (Mycostatin Powder) 1 applic TOPICAL BID [facility]; Protocol Last Admin: 10/26/19 09:31 Dose: 1 applicatio Documented by: Oxycodone HCl (Oxyir) 5 mg PO Q6H PRN PRN PRN Reason: Pain Score 6-10/10 Last Admin: 10/26/19 09:33 Dose: 5 mg Documented by: Pramipexole Dihydrochloride (Mirapex) 0.25 mg PO QHS [facility] Last Admin: 10/25/19 21:22 Dose: 0.25 mg Documented by: Promethazine HCl (Phenergan Tablet) 12.5 mg PO Q6H PRN PRN PRN Reason: NAUSEA Senna/Docusate Sodium (Senokot-S, Sarah-Colace) 2 tablet PO BID [facility] Last Admin: 10/26/19 09:30 Dose: 2 tablet Documented by: Sodium Chloride () 10 ml IV UD PRN PRN Reason: Dialysis Catheter Flush Last Admin: 10/26/19 06:00 Dose: 10 ml Documented by: Sodium Chloride () 10 - 40 ml IV UD PRN PRN Reason: SALINE FLUSH Discharge Diet: Low fat/ Low Cholesterol Discharge Activity: Return to Normal Activity Weight Bearing Status: Weight bearing as tolerated Call your doctor if you observe: Fever of 101 or Higher, Coldness, Increased Pain, Shortness of breath, Dizziness, Fainting spells, Uncontrolled pain Home Medications: Medications to take at Discharge Acetaminophen [Tylenol] 650 mg PO Q6H PRN 08/06/19 B Complex W-C No.20/Folic Acid [Virt-Caps Softgel] 1 mg PO DAILY 08/06/19 Cholecalciferol (VIT D3) [Vitamin D3] 5,000 unit PO MOWEFR 08/06/19 Melatonin 5 mg PO QHS 08/06/19 Nitroglycerin 0.4 mg SL PRN PRN 08/06/19 Ropinirole HCl [Requip] 2 tab PO QHS 08/06/19 Oxycodone HCl/Acetaminophen [Percocet 10-325 mg Tablet] 1 tab PO Q6H PRN PRN 09/24/19 proMETHazine tablet [Phenergan tablet] 12.5 mg PO Q6H PRN PRN 09/24/19 Lactulose [Chronulac] 30 gm PO TID 10/21/19 Midodrine HCl 10 mg PO TID 10/21/19 Nystatin Powder [Mycostatin Powder] 1 applic TOPICAL BID 10/21/19 Polyethylene Glycol 3350 [Miralax] 17 gm PO BID 10/21/19 Senna/Docusate Sodium [Senokot-S] 2 tab PO BID 10/21/19 Doxycycline 100 mg PO BID 5 Days #10 cap 10/26/19 Nitroglycerin (INPATIENT USE) [Nitrostat] 0.4 mg SUBLINGUAL Q5M PRN tab.subl 10/26/19 Following Prescrptions Were Given to Patient: Doxycycline 100 mg PO BID 5 Days #10 cap Transmission Status: Received by [id number] Primary Care Physician: Davy Coleman MD [Primary Care Provider] - Please follow up with your Primary Care Physician in: 1-2 weeks Please Follow Up With: Davy Coleman MD Please Follow Up With: Ultrasound for paracentesis Please Follow Up With: Timothy Frye MD When: 1-2 weeks Please Follow Up With: Timothy Chamberlain MD When: 1-2 weeks Please Follow Up With: Anuradha Crawley DO When: 1-2 weeks Patient Instructions: Cellulitis Disposition: Home Minutes spent on discharge:: 45 Patient Condition:: Stable Medical Necessity - Tobacco Use Smoking Status: Never smoker Meaningful Use Info Meaningful Use Diagnoses (Choose all that apply): AMI - AMI/Post PCI/Angioplasty Aspirin given w/in 24hrs of arrival?: Yes ASA at discharge?: Yes Antiplatelet Therapy at Discharge:: Yes Statins at discharge?: Yes Bubba/ARB at discharge?: No Reason Bubba/ARB not ordered:: Worsening renal disease, Moderate aortic stenosis Beta Socorro at discharge?: No Reason Beta Socorro not ordered:: Moderate aortic stenosis Done w/ Acute [place] measure.: Yes Documented LVEF (%): 65 Inpatient E&M: [id number] Disch Hosp
[2019-10-26] MEDS: Insulin Lispro 100 UNIT/ML INSULN.PEN SC (12:32)
[2019-10-26 12:41] LABS: Bedside Glucose 194 mg/dL (70-110)
--- NOTE | 2019-10-26 14:26 | PN.RENAL_ITS ---
Subjective: mental status stable, going home today. No CP, SOB - Physical Exam Vitals/I&O's: Vital Signs Temp Pulse Resp BP Pulse Ox 98.2 F 85 18 118/62 95 10/26/19 14:02 10/26/19 14:02 10/26/19 14:02 10/26/19 14:02 10/26/19 14:02 Oxygen Flow Rate (L/min) 2 Oxygen Delivery Method Room Air Weight: 90.3 kg Body Mass Index (BMI) 33.7 Finger Stick Blood Glucose 99 Intake and Output for Last 24 Hours 10/24/19 10/25/19 10/26/19 23:59 23:59 23:59 Intake Total 1265 / 1265 460 / 460 480 / 480 Balance 1265 / 1265 460 / 460 480 / 480 Psych/Mental Status: Alert and oriented to time, place, person, mood and affect Laboratory Results 10/25/19 11:51: POC Glucose 126 H 10/25/19 16:45: POC Glucose 168 H 10/25/19 21:16: POC Glucose 167 H 10/26/19 06:01: POC Glucose 137 H 10/26/19 06:20: Sodium 133 L, Potassium 4.2, Chloride 99, Carbon Dioxide 27.0, Anion Gap 7, BUN 19 H, Creatinine 3.38 H, Estim Creat Clear Calc 12.74, Est GFR (MDRD) Af Amer 17 L, Est GFR (MDRD) Non-Af 14 L, BUN/Creatinine Ratio 5.6 L, Glucose 144 H, Calcium 8.7 10/26/19 06:20: WBC 9.7, RBC 3.53 L, Hgb 10.8 L, Hct 39.5, MCV 111.9 H D, MCH 30.6, MCHC 27.3 L D, RDW Std Deviation 72.4 H, RDW Coeff of Susan 18.0 H, Plt Count 150, MPV 8.8, Immature Gran % (Auto) 0.600, Neut % (Auto) 70.9 H, Lymph % (Auto) 17.3 L, [place] % (Auto) 8.2, Eos % (Auto) 2.4, Baso % (Auto) 0.6, Absolute Neuts (auto) 6.9, Absolute Lymphs (auto) 1.68, Nucleated RBC % 0, Differential Comment SCANNED, Anisocytosis 2+, Microcytosis 1+, Macrocytosis 1+ 10/26/19 12:30: POC Glucose 194 H Medical Necessity - Tobacco Use Smoking Status: Never smoker Assessment/Plan All Active Problems (Last Reviewed 10/23/19 @ 16:[address] Timothy Chamberlain MD) Fecal impaction (Acute) Hematochezia (Acute) Acute on chronic anemia (Acute) Hyperkalemia (Acute) NSTEMI (non-ST elevated myocardial infarction) (Acute) CAD in [place] artery (Acute) Encephalopathy (Acute) Anemia (Acute) 1. ESRD HD MWF. Next dialysis Sunday. Follow up at clinic 2. Liver cirrhosis with ascites s/p frequent paracentesis 3. Hx GI bleed. hgb stable on plavix 4. Hypotension midodrine.stable BP 5 NSTEMI med mgmt
--- NOTE | 2019-10-27 15:51 | CASEMGMT ---
Addendum entered by Felipe Laird 10/27/19 15:58: [facility], however she returned to ER today, and unknown whether she will return home or be admitted to [facility]. [facility] will follow. Kyra MARTIN Original Note: EDIN TAPIA DC PHONE CALL DC DATE: 10/26/2019 DC DISPOSITION: Home with [facility] DC DIAGNOSIS: NSTEMI, Anemia LACE/STRATA: 16/4 F/U APPTS MADE PRIOR TO DC: no Call/message to [facility] to verify pt will resume HHC on dc. Awaiting call back. Order is in chart. Kyra DOWNSM
== END 2019-10-26 14:17 | disposition home health service (06) | DRG 70 ==
LOC: ED 11:16 → PCU 12:07
PROVIDERS: Surgery; Admitting Provider Student in an Organized Health Care Education/Training Program; Emergency Provider Emergency Medicine; PCP Family Medicine; Visit Provider Student in an Organized Health Care Education/Training Program
DX: G93.41 Metabolic encephalopathy (principal); I21.4 Non-ST elevation (NSTEMI) myocardial infarction; N18.6 End stage renal disease; I12.0 Hypertensive chronic kidney disease with stage 5 chronic kidney disease or end stage renal disease; R18.8 Other ascites; D61.818 Other pancytopenia; I48.20 Chronic atrial fibrillation, unspecified; Q24.5 Malformation of coronary vessels; I48.21 Permanent atrial fibrillation; K62.5 Hemorrhage of anus and rectum; E87.1 Hypo-osmolality and hyponatremia; G92 Toxic encephalopathy; E11.22 Type 2 diabetes mellitus with diabetic chronic kidney disease; I25.10 Atherosclerotic heart disease of native coronary artery without angina pectoris; I35.0 Nonrheumatic aortic (valve) stenosis; I36.1 Nonrheumatic tricuspid (valve) insufficiency; N61.0 Mastitis without abscess; E11.649 Type 2 diabetes mellitus with hypoglycemia without coma; K74.60 Unspecified cirrhosis of liver; G89.4 Chronic pain syndrome; I95.9 Hypotension, unspecified; E78.5 Hyperlipidemia, unspecified; E03.9 Hypothyroidism, unspecified; D63.1 Anemia in chronic kidney disease; H54.62 Unqualified visual loss, left eye, normal vision right eye; E66.9 Obesity, unspecified; Z68.33 Body mass index [BMI] 33.0-33.9, adult; Z99.2 Dependence on renal dialysis; Z79.4 Long term (current) use of insulin; Z79.891 Long term (current) use of opiate analgesic; Z79.82 Long term (current) use of aspirin; Z79.02 Long term (current) use of antithrombotics/antiplatelets; Z79.899 Other long term (current) drug therapy; I25.2 Old myocardial infarction; Z87.891 Personal history of nicotine dependence; Z95.5 Presence of coronary angioplasty implant and graft; Z96.651 Presence of right artificial knee joint
CPT/HCPCS: 36415; 36416; 49083; 70450; 70551; 71045; 74176; 76641; 78278; 80048; 80053; 82140; 82962; 83605; 83690; 84484; 85014; 85018; 85025; 85610; 85730; 90937; 93005; 93306; 95819; 96374; 96375; 97110; 97162; 97166; 97530; 97535; 97802; 99282; 99285; A9560; J7030; J7040; J7050; Q9957; A4216; C8929; G0257; J2405

== ENCOUNTER 2019-10-27 14:02 | Observation (INO) | payer MEDICARE, MEDICAID, SELFPAY ==
[2018-06-11 11:00] VITALS: BMI 27.1
[2019-10-21 12:47] VITALS: BMI 33.7
[2019-10-27] VITALS (13 sets, daily range): BP systolic 96–131; BP diastolic 54–66; PULSE 81–101; RESP 11–18; TEMP 36.1–36.6; O2SAT 84–100; BMI 35.4; BMI 33.6
--- NOTE | 2019-10-27 14:26 | ED.DCSUM_ITS ---
- ER Visit Summary Date of Service: 10/27/19 Chief Complaint: Right breast pain History of Present Illness: The patient is a 74 F who presents with right breast pain. It started about 3 days ago while she was an inpatient here at the hospital. She was admitted for confusion and was found to have metabolic encephalopathy. She has cirrhosis with ascites this was likely the cause of her confusion. She had breast pain in the hospital so they performed an ultrasound which was negative for any solid or cystic masses. They diagnosed her with cellulitis and put her on IV vancomycin and transitioned to oral doxycycline. The patient has a history of chronic pain and takes Percocet 10/325 at home and is not been helping her pain. She has not had any fevers. She denies any other pain. She lives at home with her who she states cannot take care of her. I asked her about hospice or possibly a DNR and she states that she does not want either of those and would not like to discuss either of them. Physical Examination: Vital signs reviewed. HEENT exam unremarkable. Heart is regular rate and rhythm without murmurs. Lungs are clear to auscultation. Have right breast tenderness on the lateral portion. There is erythema on that side. No abscess or fluctuance are felt. Abdomen is soft and diffusely tender. She has distention with diffuse ascites. Extremities reveal no edema. Skin exam normal. Neurologic exam normal. Test Results: EKG is atrial fibrillation and unchanged from previous. Chest x- ray shows bilateral infiltrates, effusions and CHF. White blood cell count is 13.8 which is elevated from previous. Hemoglobin 10.7. Creatinine is 4.13 which is consistent with her end-stage renal disease. Ammonia was unable to be obtained. Troponin is pending. Emergency Department Course and Treatment: The patient given morphine for her breast pain which did help. She then became more drowsy throughout her emergency department stay. ABG showed a respiratory acidosis with a pH of 7.27 and a PCO2 of 66. At this point I placed her on BiPAP to see if that would help with her drowsiness. Due to her chest x-ray findings I gave her Lasix and antibiotics. The antibiotics will help with her breast cellulitis. I do not feel that she can go home. She admits that her cannot take care of her. At this point I discussed with Dr. Chao who knows this patient from previous admissions. He will admit the patient to the hospital. Treatment Plan: [] Disposition: Admit Impression: Acute respiratory failure, right breast cellulitis, CHF This note was generated with [employer] dictation software. It may contain incorrect words, spelling, and punctuation that were not noted in review of the chart prior to signing ED Disposition - Plan for ED Patient: Referrals: Davy Coleman MD [Primary Care Provider] -
[2019-10-27] MEDS: Morphine 4 MG/ML Syringe IV (14:32)
[2019-10-27 15:43] LABS: Absolute Lymphocyte Count 1.75 X10^3/uL (0.83-4.51); Absolute Neutrophil Count 10.7 X10^3/uL (2.0-7.7); Basophil# 0.05 X10^3/uL; Basophil% 0.4 % (0-1); Eosinophil# 0.21 X10^3/uL; Eosinophils% 1.5 % (0-5); Hematocrit 34.4 % (37-47); Hemoglobin 10.7 g/dL (12.0-15.0); Lymphocyte # 1.75 X10^3/ul (4.0); Lymphocyte % 12.7 % (19-41); Mean Corp Hgb Conc 31.1 g/dL (32-36); Mean Corpuscular Volume 99.7 fL (81-99); Mean Platelet Vol. 9.9 fl (6.2-12.0); Monocyte# 0.92 X10^3/uL; Monocyte% 6.7 % (0-10); NRBC Flagged by Analyzer 0 % (0-5); Neutrophil # 10.65 X10^3/uL (2.7-7.7); Neutrophil % 77.2 % (47-70); POSITIVE COUNT YES; Platelet Count 166 K/mm3 (150-450); RBC Distribution Width CV 17.6 % (11.6-14.6); Red Blood Count 3.45 M/mm3 (4.2-5.4); White Blood Count 13.8 K/mm3 (4.4-11.0)
[2019-10-27 16:03] LABS: Differential Indicated SCAN CRITERIA MET
[2019-10-27 16:06] LABS: Anion Gap 11 (5-15); BUN 26 mg/dL (7-18); BUN/Creat Ratio 6.3 RATIO (10-20); Calcium,Total 8.1 mg/dL (8.5-10.1); Chloride 99 mmol/L (98-107); Creatinine, Serum 4.13 mg/dL (0.55-1.02); EST Glomerular Filtration Rate 11 mL/min (>60); Est Glom Filt Rate - Afr Amer 14 mL/min (>60); Estimated Creatinine Clearance 10.01 ml/min; Glucose 134 mg/dL (74-106); Potassium 4.8 mmol/L (3.5-5.1); Sodium Level 135 mmol/L (136-145)
[2019-10-27 16:10] LABS: AST(SGOT) 35 U/L (15-37); Alanine Aminotransfer ALT/SGPT 18 U/L (13-56); Albumin, Serum 1.5 g/dL (3.2-5.0); Alkaline Phosphatase 198 U/L (45-117); Bilirubin, Direct 0.18 mg/dL (0.00-0.30); Globulin 5.2 g/dL (2.2-4.2); Protein, Total 6.7 g/dL (6.4-8.2)
[2019-10-27 16:22] LABS: Platelet Estimate ADEQUATE (ADEQ); Red Cell Morphology NORM C+C NORMAL (NORM C&C)
--- NOTE | 2019-10-27 17:24 | ED.RN ---
PT STATING THAT SHE DOES NOT WANT TO BE ADMITTED. PT A & O X4 AT THIS TIME. THIS RN TALKED TO PT'S DAUGHTER VIA TELEPHONE, DAUGHTER STATING SHE WANTS THE PT TO STAY. THIS RN LET THE DAUGHTER KNOW THAT SHE IS REFUSING TO STAY. DR ALCOCER NOTIFIED.
--- NOTE | 2019-10-27 17:36 | EKG12_ITS ---
Test Reason : PAIN\OTHER Blood Pressure : / mmHG Vent. Rate : 080 BPM Atrial Rate : 071 BPM P-R Int : 000 ms QRS Dur : 078 ms QT Int : 356 ms P-R-T Axes : 000 092 165 degrees QTc Int : 410 ms Atrial fibrillation Rightward axis Low voltage QRS Septal infarct , age undetermined, cannot be excluded Abnormal ECG Confirmed by ARI NEWMAN, WALTER ([id number]), editorial specialist FINESSE ZAVALETA ([id number]) on 11/05/2019 1:18:03 PM Referred By: Walter Chao Confirmed By:WALTER CHAPMAN MD
--- NOTE | 2019-10-27 18:42 | RAD_ITS ---
STUDY: X-RAY CHEST REASON FOR EXAM: Female, 74 years old. RIGHT BREAST PAIN, LETHARGIC -- PATIENT UNABLE TO COOPERATE WITH BREATHING INSTRUCTIONS TECHNIQUE: Single AP portable view of the chest. COMPARISON: October 21, 2019 FINDINGS: There are monitoring devices. There are bilateral lower lung groundglass and airspace increased opacities with consolidation and small pleural effusions. There is moderate cardiac enlargement. There are calcified mediastinal lymph nodes. Normal visualized pulmonary arteries. Normal visualized aortic arch and descending thoracic aorta. There is demineralization of the osseous structures. Stable healed right rib fracture. There is no demonstrated abnormality of the visualized soft tissue structures of the upper abdomen. RAD/Chest 1 View (Portable) IMPRESSION: Bilateral infiltrates or edema and pleural effusions. Electronically Signed: Wojciech Hoffmann MD at 19:27 EDT , Service support ,
--- NOTE | 2019-10-27 19:16 | ED.RN ---
Discussed ammonia lab ordered. Previous RN states they have tried, lab tried x 2. stated, no new sticks. Ammonia can be added on to other admission orders.
--- NOTE | 2019-10-27 20:04 | PCM.HP.STD ---
Problem List (1) Cirrhosis of liver with ascites Status: Chronic Qualifiers: (2) Sick sinus syndrome Status: Suspected (3) Chronic pain syndrome Status: Chronic (4) Chronic narcotic use Status: Chronic (5) CAD in [place] artery Status: Acute (6) S/P PTCA (percutaneous transluminal coronary angioplasty) Status: Chronic (7) Encephalopathy Status: Acute (8) Altered mental status Status: Chronic (9) History of non-ST elevation myocardial infarction (NSTEMI) Status: Chronic (10) Ascites Status: Chronic Qualifiers: (11) Diabetes mellitus, type II Status: Chronic (12) Hyperlipidemia Status: Chronic Qualifiers: (13) Hypothyroidism Status: Chronic Qualifiers: (14) Anemia in chronic kidney disease Status: Chronic Qualifiers: (15) Hypertension Status: Chronic Qualifiers: (16) End stage renal disease on dialysis Status: Chronic History of Present Illness Date of Admission: 10/27/19 Chief Complaint: SHORT OF BREATH The patient is a 74 year old male patient with a significant past medical history of cirrhosis of the liver, end-stage renal disease on dialysis, coronary artery disease, diabetes, hypertension, hyperlipidemia who presents the emergency room after discharge from the hospital for 3-day stay recently for shortness of breath. The patient has confusion but per conversation she had with the ER physician - she does not wish to be DNR and she does not wish to have hospice despite her myriad of complexity and decline over the past year. The patient is otherwise unable to provide me with any meaningful history at this time. Laboratory studies reveal a white blood cell count of 13.8, hemoglobin of 10.7, hematocrit 34.4, platelets 166, sodium 135, potassium 4.8, chloride 99, bicarb 25, BUN 26, creatinine 4.1. She was at 1.84% on 15 L nonrebreather mask and was placed on BiPAP in the emergency room. Chest x-ray reveals bilateral infiltrates/edema. Her last known dialysis was on Sunday and she usually goes Sunday therefore she missed today. She was discharged to home where she was living with her spouse who says he is unable to care for her. She will be admitted overnight for observation for management of her hypoxia and would recommend strong encouragement that she changes her CODE STATUS when she is more alert and able to do so. Past Medical History Past Medical History (Chronic Problems): Chronic Problems (Last Reviewed 10/23/19 @ 16:[address] Timothy Chamberlain MD) Cirrhosis of liver with ascites (Chronic) Chronic pain syndrome (Chronic) Chronic narcotic use (Chronic) S/P PTCA (percutaneous transluminal coronary angioplasty) (Chronic) Altered mental status (Chronic) Hypotension (Chronic) on Midodrin History of GI bleed (Chronic) History of non-ST elevation myocardial infarction (NSTEMI) (Chronic 07/05/16) Atherosclerotic heart disease of [place] coronary artery without angina pectoris (Chronic) Stented coronary artery (Chronic) Cutting Balloon and TAMI (3.0X18 mm Xience) Proximal LAD 04/18/2012; Rotational atherectomy to proximal, id and distal RCA with two overlapping 4.0 X 38 Synergy TAMI ([facility] main) Ascites (Chronic) Pancytopenia (Chronic) Other specified peripheral vascular diseases (Chronic) Afib (Chronic) Congenital coronary artery anomaly (Chronic) Bradycardia (Chronic) Suspect sick sinus syndrome Diabetes mellitus, type II (Chronic) Hyperlipidemia (Chronic) Hypothyroidism (Chronic) Anemia in chronic kidney disease (Chronic) Hypertension (Chronic) End stage renal disease on dialysis (Chronic) Medical History: Medical History (Last Reviewed 10/23/19 @ 16:[address] Timothy Chamberlain MD) History of GI bleed (Chronic) Z87.19 History of non-ST elevation myocardial infarction (NSTEMI) (Chronic) Onset Date: 07/05/16 I25.2 Atherosclerotic heart disease of [place] coronary artery without angina pectoris (Chronic) I25.10 Ascites (Chronic) R18.8 Pancytopenia (Chronic) D61.818 Other specified peripheral vascular diseases (Chronic) I73.89 Afib (Chronic) I48.91 Congenital coronary artery anomaly (Chronic) Q24.5 Bradycardia (Chronic) R00.1 Suspect sick sinus syndrome Diabetes mellitus, type II (Chronic) E11.9 Hyperlipidemia (Chronic) E78.5 Hypothyroidism (Chronic) E03.9 Anemia in chronic kidney disease (Chronic) N18.9, D63.1 Hypertension (Chronic) I10 End stage renal disease on dialysis (Chronic) N18.6, 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 Skin cancer C44.90 mouth/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, 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 Allergies lisinopril Allergy (Severe, Verified 10/27/19 14:09) Angioedema nebivolol HCl [From Bystolic] Adverse Reaction (Severe, Verified 10/27/19 14:09) bradycardia BRADYCARDIA Home Medications: Ambulatory Orders Medication Instructions Recorded Acetaminophen [Tylenol] 650 mg PO Q6H PRN 08/06/19 B Complex W-C No.20/Folic Acid 1 mg PO DAILY 08/06/19 [Virt-Caps Softgel] Cholecalciferol (VIT D3) [Vitamin 5,000 unit PO MOWEFR 08/06/19 D3] Melatonin 5 mg PO QHS 08/06/19 Nitroglycerin 0.4 mg SL PRN PRN 08/06/19 Ropinirole HCl [Requip] 2 tab PO QHS 08/06/19 Oxycodone HCl/Acetaminophen 1 tab PO Q6H PRN PRN 09/24/19 [Percocet 10-325 mg Tablet] proMETHazine tablet [Phenergan 12.5 mg PO Q6H PRN PRN 09/24/19 tablet] Lactulose [Chronulac] 30 gm PO TID 10/21/19 Midodrine HCl 10 mg PO TID 10/21/19 Nystatin Powder [Mycostatin Powder] 1 applic TOPICAL BID 10/21/19 Polyethylene Glycol 3350 [Miralax] 17 gm PO BID 10/21/19 Senna/Docusate Sodium [Senokot-S] 2 tab PO BID 10/21/19 Doxycycline 100 mg PO BID 5 Days #10 cap 10/26/19 Nitroglycerin (INPATIENT USE) 0.4 mg SUBLINGUAL Q5M PRN tab.subl 10/26/19 [Nitrostat] Surgical History: Surgical History (Last Reviewed 10/23/19 @ 16:[address] Timothy Chamberlain MD) Stented coronary artery (Chronic) Z95.5 Cutting Balloon and TAMI (3.0X18 mm Xience) Proximal LAD 04/18/2012; Rotational atherectomy to proximal, id and distal RCA with two overlapping 4.0 X 38 Synergy TAMI ([facility] main) History of back surgery Z98.890 LATE 70'S History of colectomy Z90.49 History of hysterectomy Z90.710 History of laparoscopic cholecystectomy Z90.49 History of total right knee replacement Z96.651 Hx of foot surgery Z98.890 S/P left rotator cuff repair Z98.890 history left A-V fistula Surgical History: appendectomy, cholecystectomy, hysterectomy, total knee arthroplasty, - - Left upper extremity fistula, back surgery, colon resection with history of diverticulitis, GI bleed, right knee surgery, right total knee replacement, right foot surgery, left knee surgery, left foot surgery, PCI. 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 Timothy Chamberlain MD) Sister Diabetes Heart disease Hypertension Anemia History Items: Cancer - uterine Paternal Family History: Family History (Last Reviewed 10/23/19 @ 16:[address] Timothy Chamberlain MD) Sister Diabetes Heart disease Hypertension Anemia History Items: Cancer Sibling Family History: Family History (Last Reviewed 10/23/19 @ 16:[address] Timothy Chamberlain MD) Sister Diabetes Heart disease Hypertension Anemia History Items: Diabetes Review of Systems Unable to obtain accurate/complete ROS d/t: PT IS UNABLE TO PROVIDE ME WITH MEANINGFUL HISTORY VTE Information - Inpt Only VTE Present on Admission: No VTE Mechan Device Prophylaxis: SCD's VTE Pharm Prophylaxis ordered?: No - Physical Exam Vitals/I&O's: Vital Signs Temp Pulse Resp BP Pulse Ox 97.3 F L 82 13 110/54 L 99 10/27/19 14:03 10/27/19 19:03 10/27/19 19:03 10/27/19 18:00 10/27/19 19:03 Oxygen Flow Rate (L/min) 15 Oxygen Delivery Method Bi-pap Weight: 206 lb 5.643 oz Body Mass Index (BMI) 35.4 Finger Stick Blood Glucose 99 General: Confused HEENT: Atraumatic, Normocephalic Neck: Supple Lungs: No rhonchi, No wheeze, Diminished Cardiovascular: Regular rate, Normal S1, Normal S2, No murmurs Abdomen: Bowel Sounds Present, Soft, Obese Extremities: Edema - TRACE Skin: No rashes Musculoskeletal: No Tenderness to Palpation of Joints or Extremities Neurological: Neuro grossly intact Psych/Mental Status: Normal Affect, Appropriate Laboratory Results 10/27/19 15:32: Total Bilirubin 0.70, Direct Bilirubin 0.18, AST 35, ALT 18, Alkaline Phosphatase 198 H, Total Protein 6.7, Albumin 1.5 L, Globulin 5.2 H 10/27/19 15:32: WBC 13.8 H, RBC 3.45 L, Hgb 10.7 L, Hct 34.4 L, MCV 99.7 H D, MCH 31.0, MCHC 31.1 L D, RDW Std Deviation 63.0 H, RDW Coeff of [place] 17.6 H, Plt Count 166, MPV 9.9, Immature Gran % (Auto) 1.500 H, Neut % (Auto) 77.2 H, Lymph % (Auto) 12.7 L, [place] % (Auto) 6.7, Eos % (Auto) 1.5, Baso % (Auto) 0.4, Absolute Neuts (auto) 10.7 H, Absolute Lymphs (auto) 1.75, Nucleated RBC % 0, Platelet Estimate ADEQUATE, RBC Morphology NORM C+C 10/27/19 15:32: Sodium 135 L, Potassium 4.8, Chloride 99, Carbon Dioxide 25.0, Anion Gap 11, BUN 26 H, Creatinine 4.13 H, Estim Creat Clear Calc 10.01, Est GFR (MDRD) Af Amer 14 L, Est GFR (MDRD) Non-Af 11 L, BUN/Creatinine Ratio 6.3 L, Glucose 134 H, Calcium 8.1 L 10/27/19 15:35: Troponin I Pending 10/27/19 18:44: Puncture Site Pending, pCO2 Pending, VBG pH Pending, VBG pO2 Pending, VBG HCO3 Pending, VBG Base Excess Pending Assessment/Plan All Active Problems (Last Reviewed 10/23/19 @ 16:[address] Timothy Chamberlain MD) Fecal impaction (Acute) Hematochezia (Acute) Acute on chronic anemia (Acute) Hyperkalemia (Acute) NSTEMI (non-ST elevated myocardial infarction) (Acute) CAD in [place] artery (Acute) Encephalopathy (Acute) Anemia (Acute) Chronic Problems (Last Reviewed 10/23/19 @ 16:[address] Timothy Chamberlain MD) Cirrhosis of liver with ascites (Chronic) Chronic pain syndrome (Chronic) Chronic narcotic use (Chronic) S/P PTCA (percutaneous transluminal coronary angioplasty) (Chronic) Altered mental status (Chronic) Hypotension (Chronic) on Midodrin History of GI bleed (Chronic) History of non-ST elevation myocardial infarction (NSTEMI) (Chronic 07/05/16) Atherosclerotic heart disease of [place] coronary artery without angina pectoris (Chronic) Stented coronary artery (Chronic) Cutting Balloon and TAMI (3.0X18 mm Xience) Proximal LAD 04/18/2012; Rotational atherectomy to proximal, id and distal RCA with two overlapping 4.0 X 38 Synergy TAMI ([facility] main) Ascites (Chronic) Pancytopenia (Chronic) Other specified peripheral vascular diseases (Chronic) Afib (Chronic) Congenital coronary artery anomaly (Chronic) Bradycardia (Chronic) Suspect sick sinus syndrome Diabetes mellitus, type II (Chronic) Hyperlipidemia (Chronic) Hypothyroidism (Chronic) Anemia in chronic kidney disease (Chronic) Hypertension (Chronic) End stage renal disease on dialysis (Chronic) Plan 1. Acute hypoxia on oxygen?admit patient to progressive care unit for observation on BiPAP support recommend serious discussion regarding end-of-life in the morning when patient is more lucid and able to make decisions, as of now patient remains full code. Patient will need case management to determine long-term placement 2. Chronic pain syndrome?we will hold any narcotics while patient is difficult to arouse 3. End-stage renal disease on dialysis?would plan to resume dialysis as an outpatient on her normal schedule but if she fails to progress she may need inpatient dialysis. 4. Diabetes?blood sugar checks every 6 hours and will cover with sliding scale insulin 5. Hyperlipidemia?hold medication 6. Hypothyroidism?hold medication until patient is alert 7. DVT prophylaxis?SCDs 8. Porosis of the liver?get CMP and ammonia level in a.m. OBSV E&M: [id number] Initial observation care L2
[2019-10-27] MEDS: Furosemide 40 MG/4 ML Vial IV (20:10)
[2019-10-27 23:45] LABS: Bedside Glucose 90 mg/dL (70-110)
[2019-10-28] VITALS (16 sets, daily range): BP systolic 97–114; BP diastolic 43–51; PULSE 86–118; RESP 12–22; TEMP 36.6–36.9; O2SAT 95–100
[2019-10-28 01:33] LABS: Blood Gas Specimen Type VEN; FI02 100; O2 Delivery Device NRB
[2019-10-28 01:34] LABS: Time Given 1844; VBG PO2 23 mmHg (25-40); VBG pCO2 66.7 mmHg (41-51); VBG pH 7.27 (7.32-7.42)
[2019-10-28 01:35] LABS: VBG BASE EXCESS 4 mmol/L (-1.0-3.5); VBG Bicarbonate 31 mmol/L (22-26); VBG Oxygen Content 33 mmol/L (23-33); VBG SO2 32 % (50-70)
[2019-10-28 01:44] LABS: SITE R BRACHIAL
[2019-10-28 05:31] LABS: Bedside Glucose 93 mg/dL (70-110)
--- NOTE | 2019-10-28 06:07 | CPS ---
asked pt to take dentures out for her safety, pt refused. She did not want to let me take her teeth out. RN aware.
[2019-10-28 07:37] LABS: ALB/GLOB Ratio 0.2 RATIO (0.9-2.4); AST(SGOT) 33 U/L (15-37); Alanine Aminotransfer ALT/SGPT 15 U/L (13-56); Alkaline Phosphatase 154 U/L (45-117); Anion Gap 7 (5-15); BUN 31 mg/dL (7-18); BUN/Creat Ratio 6.9 RATIO (10-20); Calcium,Total 7.7 mg/dL (8.5-10.1); Chloride 100 mmol/L (98-107); Creatinine, Serum 4.49 mg/dL (0.55-1.02); EST Glomerular Filtration Rate 10 mL/min (>60); Est Glom Filt Rate - Afr Amer 12 mL/min (>60); Estimated Creatinine Clearance 9.59 ml/min; Globulin 5.2 g/dL (2.2-4.2); Glucose 103 mg/dL (74-106); Potassium 5.4 mmol/L (3.5-5.1); Protein, Total 6.2 g/dL (6.4-8.2); Sodium Level 129 mmol/L (136-145)
--- NOTE | 2019-10-28 07:44 | CPS ---
Pt decreased from 50% to 40% on Bipap. Pt saturation on 40% 100%. Pt's nurse aware of change
--- NOTE | 2019-10-28 10:08 | CASEMGMT ---
Dr Crawley said patient has agreed to go to SNF. SW will talk with patient. Marylou RAMIREZ MSW
--- NOTE | 2019-10-28 10:13 | PCM.CONS.R ---
Consultation - Renal 10/28/19 PCP/ Referring MD: Requesting physician: [] Primary care physician: Dr. Davy Coleman MD Reason for Consultation:: ESRD HD MWF. missed tx Sunday - History of Present Illness History of Present Illness: The patient is a 74 year old F well known to me with ESRD due to diabetes, hypertension, cirrhosis of the liver requiring paracentesis for tense ascites, hypotension requiring midodrine, coronary artery disease, hyperlipidemia who presents the emergency room yesterdayafter discharge from the hospital Sunday. The patient had confusion, hypotension with respiratory depression after receiving pain medication. She has intermittent encephalopathy, especially with narcotics with associated hypotension in the 60's systolic. She did not go to dialysis yesterday and did not receive her treatment yesterday. She is currently undergoing hemodialysis. She continues to complain of pain in right breast evaluated by GS and Dr Abdi was on consult last hospitalization. She was discharged to home on Sunday living with her , who has dementia, and sister. Her daughter called in to dialysis center yesterday saying she was confused with SBP in the 60's at home. She refuses hospice. She agrees to ECF placement. - Allergies Allergies: Allergies lisinopril Allergy (Severe, Verified 10/27/19 14:09) Angioedema nebivolol HCl [From Bystolic] Adverse Reaction (Severe, Verified 10/27/19 14:09) bradycardia BRADYCARDIA - Current Medications Current Medications: Current Medications Dextrose (D50w Syringe) 0 gm IV X1 PRN; Protocol PRN Reason: Hypoglycemia Glucagon () 1 mg IM .X1 PRN PRN Reason: Hypoglycemia Insulin Human Lispro (Humalog Kwikpen (Bkc)) 0 unit SC Q6 FARZANA; Protocol Last Admin: 10/28/19 05:49 Dose: Not Given Documented by: Sodium Chloride () 10 - 40 ml IV UD PRN PRN Reason: SALINE FLUSH - Past Medical History Past Medical History (Chronic Problems): Chronic Problems (Last Reviewed 10/23/19 @ 16:[address] Timothy Chamberlain MD) Cirrhosis of liver with ascites (Chronic) Chronic pain syndrome (Chronic) Chronic narcotic use (Chronic) S/P PTCA (percutaneous transluminal coronary angioplasty) (Chronic) Altered mental status (Chronic) Hypotension (Chronic) on Midodrin History of GI bleed (Chronic) History of non-ST elevation myocardial infarction (NSTEMI) (Chronic 07/05/16) Atherosclerotic heart disease of [place] coronary artery without angina pectoris (Chronic) Stented coronary artery (Chronic) Cutting Balloon and TAMI (3.0X18 mm Xience) Proximal LAD 04/18/2012; Rotational atherectomy to proximal, id and distal RCA with two overlapping 4.0 X 38 Synergy TAMI ([facility] main) Ascites (Chronic) Pancytopenia (Chronic) Other specified peripheral vascular diseases (Chronic) Afib (Chronic) Congenital coronary artery anomaly (Chronic) Bradycardia (Chronic) Suspect sick sinus syndrome Diabetes mellitus, type II (Chronic) Hyperlipidemia (Chronic) Hypothyroidism (Chronic) Anemia in chronic kidney disease (Chronic) Hypertension (Chronic) End stage renal disease on dialysis (Chronic) - Past Surgical History Surgical History: appendectomy, cholecystectomy, hysterectomy, total knee arthroplasty, - - Left upper extremity fistula, back surgery, colon resection with history of diverticulitis, GI bleed, right knee surgery, right total knee replacement, right foot surgery, left knee surgery, left foot surgery, PCI. - Social History Smoking Status: Former smoker - Family History Maternal Family History: Family History (Last Reviewed 10/23/19 @ 16:[address] Timothy Chamberlain MD) Sister Diabetes Heart disease Hypertension Anemia History Items: Cancer - uterine Paternal Family History: Family History (Last Reviewed 10/23/19 @ 16:[address] Timothy Chamberlain MD) Sister Diabetes Heart disease Hypertension Anemia History Items: Cancer Sibling Family History: Family History (Last Reviewed 10/23/19 @ 16:[address] Timothy Chamberlain MD) Sister Diabetes Heart disease Hypertension Anemia History Items: Diabetes Review of Systems Constitutional: Reports: Weakness - chronic. Denies: Anorexia, Chills, Fever Eyes: Denies: Blurred vision HEENT: Denies: Head Aches Cardiovascular: Denies: Chest Pain Respiratory: Denies: Shortness of Breath Gastrointestinal: Denies: Abdominal Pain, Nausea Gynecological: Reports: - - rt breast pain persistent Musculoskeletal: Reports: - - leg swelling, chronic Skin: Reports: Rash - rt breast Neurological: Reports: Balance problems, - - weakness. Denies: Tremor, Seizures Psychiatric: Reports: Anxiety Hematologic/ Lymphatic: Reports: Anemia - Physical Exam Vitals/I&O's: Vital Signs Temp Pulse Resp BP Pulse Ox 98.4 F 118 H 18 114/51 L 98 10/28/19 08:15 10/28/19 08:15 10/28/19 09:30 10/28/19 08:15 10/28/19 08:15 Oxygen Flow Rate (L/min) 4 Oxygen Delivery Method Nasal Cannula Weight: 91.4 kg Body Mass Index (BMI) 33.6 Finger Stick Blood Glucose 99 Intake and Output for Last 24 Hours 10/26/19 10/27/19 10/28/19 23:59 23:59 23:59 Intake Total 50 / 50 0 / 0 Output Total 0 / 0 0 / 0 Balance 50 / 50 0 / 0 General: Alert, Oriented x3, Cooperative, No apparent distress, - - [facility] at [facility] Oral: Dry Mucosa Neck: Supple Lungs: Clear to auscultation Cardiovascular: Irregular Rate, Murmur Abdomen: Bowel Sounds Present, Soft, Non Tender, Distended - ascites, Obese Extremities: Edema - mild, chronic Skin: - - erythema rt lateral breast, exquisite tenderness Musculoskeletal: Muscle Wasting Neurological: - - no tremor, MS at baseline Psych/Mental Status: Normal Affect, Appropriate, Alert and oriented to time, place, person, mood and affect Laboratory Results 10/27/19 15:32: Total Bilirubin 0.70, Direct Bilirubin 0.18, AST 35, ALT 18, Alkaline Phosphatase 198 H, Total Protein 6.7, Albumin 1.5 L, Globulin 5.2 H 10/27/19 15:32: WBC 13.8 H, RBC 3.45 L, Hgb 10.7 L, Hct 34.4 L, MCV 99.7 H D, MCH 31.0, MCHC 31.1 L D, RDW Std Deviation 63.0 H, RDW Coeff of [place] 17.6 H, Plt Count 166, MPV 9.9, Immature Gran % (Auto) 1.500 H, Neut % (Auto) 77.2 H, Lymph % (Auto) 12.7 L, [place] % (Auto) 6.7, Eos % (Auto) 1.5, Baso % (Auto) 0.4, Absolute Neuts (auto) 10.7 H, Absolute Lymphs (auto) 1.75, Nucleated RBC % 0, Platelet Estimate ADEQUATE, RBC Morphology NORM C+C 10/27/19 15:32: Sodium 135 L, Potassium 4.8, Chloride 99, Carbon Dioxide 25.0, Anion Gap 11, BUN 26 H, Creatinine 4.13 H, Estim Creat Clear Calc 10.01, Est GFR (MDRD) Af Amer 14 L, Est GFR (MDRD) Non-Af 11 L, BUN/Creatinine Ratio 6.3 L, Glucose 134 H, Calcium 8.1 L 10/27/19 18:44: Puncture Site Cancelled, pCO2 Cancelled, VBG pH Cancelled, VBG pO2 Cancelled, VBG HCO3 Cancelled, VBG O2 Sat (Calc) Cancelled, VBG O2 Content Cancelled, VBG Base Excess Cancelled, FiO2 % Cancelled, FiO2 (liters per min) Cancelled 10/27/19 18:44: Specimen Type TRE, Sample Site R BRACHIAL, O2 % 100, VBG pH 7.27 L, VBG pO2 23 L, VBG O2 Sat (Calc) 32 L, VBG O2 Content 33, VBG Base Excess 4 H, POC Mix VBG pCO2 Pt Tmp 66.7 H, O2 Delivery Device NRB, Liter Flow 15.0, Blood Gas Notified Whom ED MD, Blood Gas Notified Time 1845 10/27/19 23:40: POC Glucose 90 10/28/19 05:26: POC Glucose 93 10/28/19 07:00: Troponin I 0.163 H 10/28/19 07:00: Sodium 129 L, Potassium 5.4 H, Chloride 100, Carbon Dioxide 22.0, Anion Gap 7, BUN 31 H, Creatinine 4.49 H, Estim Creat Clear Calc 9.59, Est GFR (MDRD) Af Amer 12 L, Est GFR (MDRD) Non-Af 10 L, BUN/Creatinine Ratio 6.9 L, Glucose 103, Calcium 7.7 L, Magnesium 2.0, Total Bilirubin 0.60, AST 33, ALT 15, Alkaline Phosphatase 154 H, Total Protein 6.2 L, Albumin 1.0 L, Globulin 5.2 H, Albumin/Globulin Ratio 0.2 L Current Medications Dextrose (D50w Syringe) 0 gm IV X1 PRN; Protocol PRN Reason: Hypoglycemia Glucagon () 1 mg IM .X1 PRN PRN Reason: Hypoglycemia Insulin Human Lispro (Humalog Kwikpen (Bkc)) 0 unit SC Q6 FARZANA; Protocol Last Admin: 10/28/19 05:49 Dose: Not Given Documented by: Sodium Chloride () 10 - 40 ml IV UD PRN PRN Reason: SALINE FLUSH Assessment/Plan All Active Problems (Last Reviewed 10/23/19 @ 16:[address] iTmothy Chamberlain MD) Fecal impaction (Acute) Hematochezia (Acute) Acute on chronic anemia (Acute) Hyperkalemia (Acute) NSTEMI (non-ST elevated myocardial infarction) (Acute) CAD in [place] artery (Acute) Encephalopathy (Acute) Anemia (Acute) 1. ESRD HD Today for missed treatment yesterday. Next dialysis Wed 2. Chronic hypotension, midodrine tid 3. 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 ID consulted. IV antibx ordered in ED 4. Liver cirrhosis with ascite, paracentesis 5. encephalopathy stable. 6. Anemia CARMEN on dialysis, hx GI bleed 7. Constipation/obstipation lactulose daily
[2019-10-28 11:04] LABS: Absolute Neutrophil Count 10.5 X10^3/uL (2.0-7.7); Basophil# 0.06 X10^3/uL; Basophil% 0.5 % (0-1); Eosinophil# 0.07 X10^3/uL; Eosinophils% 0.6 % (0-5); Hematocrit 29.9 % (37-47); Hemoglobin 9.1 g/dL (12.0-15.0); Lymphocyte % 8.2 % (19-41); Mean Corp Hgb Conc 30.4 g/dL (32-36); Mean Corpuscular Hgb 30.2 pg (27.0-32.0); Mean Corpuscular Volume 99.3 fL (81-99); Mean Platelet Vol. 9.1 fl (6.2-12.0); Monocyte# 0.53 X10^3/uL; Monocyte% 4.3 % (0-10); NRBC Flagged by Analyzer 0 % (0-5); Neutrophil # 10.48 X10^3/uL (2.7-7.7); Neutrophil % 85.7 % (47-70); Platelet Count 169 K/mm3 (150-450); RBC Distribution Width CV 17.5 % (11.6-14.6); RBC Distribution Width SD 61.9 fl (35.1-43.9); Red Blood Count 3.01 M/mm3 (4.2-5.4); White Blood Count 12.2 K/mm3 (4.4-11.0)
[2019-10-28 11:13] LABS: International Normalized Ratio 1.4; Prothrombin Time (Protime)PT. 16.9 SECONDS (11.7-14.9)
[2019-10-28 11:14] LABS: Partial Thromboplast Time 41.1 Seconds (24.1-36.2)
[2019-10-28] MEDS: Folic Acid/Vitamin B Comp W-C 1 Capsule 1 CAP PO (11:24)
[2019-10-28] MEDS: Midodrine HCl 5 MG Tablet 10 MG PO ×3 (11:24→22:09)
[2019-10-28 11:30] LABS: Bedside Glucose 84 mg/dL (70-110)
--- NOTE | 2019-10-28 11:58 | PCM.HP.ID ---
Problem List (1) Breast pain Status: Acute Reason for Consult: breast inflammation Consulted by: Dr. Tomlin History of Present Illness: The patient is a 74 year old F with ESRD, cirrhosis, recent admit for GI bleed and R breast pain. Had u/s of breast which was normal. Was on iv vanc, changed to po doxy at discharge 10/25, came back to ED 10/26 with c/o pain, some altered mental status. Reports pain in breast for 2-3 weeks. No drainage. Skin is red, firm, tender. Full ROS performed and neg except as noted above. - Medical History Past Medical History (Chronic Problems): Chronic Problems (Last Reviewed 10/23/19 @ 16:[address] Timothy Chamberlain MD) Cirrhosis of liver with ascites (Chronic) Chronic pain syndrome (Chronic) Chronic narcotic use (Chronic) S/P PTCA (percutaneous transluminal coronary angioplasty) (Chronic) Altered mental status (Chronic) Hypotension (Chronic) on Midodrin History of GI bleed (Chronic) History of non-ST elevation myocardial infarction (NSTEMI) (Chronic 07/05/16) Atherosclerotic heart disease of [place] coronary artery without angina pectoris (Chronic) Stented coronary artery (Chronic) Cutting Balloon and TAMI (3.0X18 mm Xience) Proximal LAD 04/18/2012; Rotational atherectomy to proximal, id and distal RCA with two overlapping 4.0 X 38 Synergy TAMI ([facility] main) Ascites (Chronic) Pancytopenia (Chronic) Other specified peripheral vascular diseases (Chronic) Afib (Chronic) Congenital coronary artery anomaly (Chronic) Bradycardia (Chronic) Suspect sick sinus syndrome Diabetes mellitus, type II (Chronic) Hyperlipidemia (Chronic) Hypothyroidism (Chronic) Anemia in chronic kidney disease (Chronic) Hypertension (Chronic) End stage renal disease on dialysis (Chronic) Allergies/Adverse Reactions: Allergies lisinopril Allergy (Severe, Verified 10/27/19 14:09) Angioedema nebivolol HCl [From Bystolic] Adverse Reaction (Severe, Verified 10/27/19 14:09) bradycardia BRADYCARDIA Home Medications: Ambulatory Orders Medication Instructions Recorded Acetaminophen [Tylenol] 650 mg PO Q6H PRN 08/06/19 B Complex W-C No.20/Folic Acid 1 mg PO DAILY 08/06/19 [Virt-Caps Softgel] Cholecalciferol (VIT D3) [Vitamin 5,000 unit PO MOWEFR 08/06/19 D3] Melatonin 5 mg PO QHS 08/06/19 Nitroglycerin 0.4 mg SL PRN PRN 08/06/19 Ropinirole HCl [Requip] 2 tab PO QHS 08/06/19 Oxycodone HCl/Acetaminophen 1 tab PO Q6H PRN PRN 09/24/19 [Percocet 10-325 mg Tablet] proMETHazine tablet [Phenergan 12.5 mg PO Q6H PRN PRN 09/24/19 tablet] Lactulose [Chronulac] 30 gm PO TID 10/21/19 Midodrine HCl 10 mg PO TID 10/21/19 Nystatin Powder [Mycostatin Powder] 1 applic TOPICAL BID 10/21/19 Polyethylene Glycol 3350 [Miralax] 17 gm PO BID 10/21/19 Senna/Docusate Sodium [Senokot-S] 2 tab PO BID 10/21/19 Doxycycline 100 mg PO BID 5 Days #10 cap 10/26/19 Nitroglycerin (INPATIENT USE) 0.4 mg SUBLINGUAL Q5M PRN tab.subl 10/26/19 [Nitrostat] - Social History SMOKING STATUS:: Former smoker Vital Signs Temp Pulse Resp BP Pulse Ox 98.4 F 100 22 H 97/47 L 96 10/28/19 10:00 10/28/19 11:33 10/28/19 10:00 10/28/19 10:00 10/28/19 10:30 Oxygen Flow Rate (L/min) 4.5 Oxygen Delivery Method Nasal Cannula Weight: 91.4 kg Body Mass Index (BMI) 33.6 Finger Stick Blood Glucose 99 Laboratory Tests Past 24 Hrs 10/27/19 10/27/19 10/27/19 15:32 15:32 15:32 WBC 13.8 H RBC 3.45 L Hgb 10.7 L Hct 34.4 L MCV 99.7 H D MCH 31.0 MCHC 31.1 L D RDW Std Deviation 63.0 H RDW Coeff of Susan 17.6 H Plt Count 166 MPV 9.9 Immature Gran % (Auto) 1.500 H Neut % (Auto) 77.2 H Lymph % (Auto) 12.7 L [place] % (Auto) 6.7 Eos % (Auto) 1.5 Baso % (Auto) 0.4 Absolute Neuts (auto) 10.7 H Absolute Lymphs (auto) 1.75 Nucleated RBC % 0 Platelet Estimate ADEQUATE RBC Morphology NORM C+C PT INR APTT Specimen Type Sample Site Puncture Site pCO2 O2 % VBG pH VBG pO2 VBG HCO3 VBG O2 Sat (Calc) VBG O2 Content VBG Base Excess POC Mix VBG pCO2 Pt Tmp O2 Delivery Device Liter Flow FiO2 % FiO2 (liters per min) Blood Gas Notified Whom Blood Gas Notified Time Sodium 135 L Potassium 4.8 Chloride 99 Carbon Dioxide 25.0 Anion Gap 11 BUN 26 H Creatinine 4.13 H Estim Creat Clear Calc 10.01 Est GFR (MDRD) Af Amer 14 L Est GFR (MDRD) Non-Af 11 L BUN/Creatinine Ratio 6.3 L Glucose 134 H Calcium 8.1 L Magnesium Total Bilirubin 0.70 Direct Bilirubin 0.18 AST 35 ALT 18 Alkaline Phosphatase 198 H Ammonia Troponin I Total Protein 6.7 Albumin 1.5 L Globulin 5.2 H Albumin/Globulin Ratio 10/27/19 10/27/19 10/28/19 18:44 18:44 07:00 WBC RBC Hgb Hct MCV MCH MCHC RDW Std Deviation RDW Coeff of Susan Plt Count MPV Immature Gran % (Auto) Neut % (Auto) Lymph % (Auto) [place] % (Auto) Eos % (Auto) Baso % (Auto) Absolute Neuts (auto) Absolute Lymphs (auto) Nucleated RBC % Platelet Estimate RBC Morphology PT INR APTT Specimen Type TRE Sample Site R BRACHIAL Puncture Site Cancelled pCO2 Cancelled O2 % 100 VBG pH Cancelled 7.27 L VBG pO2 Cancelled 23 L VBG HCO3 Cancelled VBG O2 Sat (Calc) Cancelled 32 L VBG O2 Content Cancelled 33 VBG Base Excess Cancelled 4 H POC Mix VBG pCO2 Pt Tmp 66.7 H O2 Delivery Device NRB Liter Flow 15.0 FiO2 % Cancelled FiO2 (liters per min) Cancelled Blood Gas Notified Whom ED MD Blood Gas Notified Time 1844 Sodium Potassium Chloride Carbon Dioxide Anion Gap BUN Creatinine Estim Creat Clear Calc Est GFR (MDRD) Af Amer Est GFR (MDRD) Non-Af BUN/Creatinine Ratio Glucose Calcium Magnesium Total Bilirubin Direct Bilirubin AST ALT Alkaline Phosphatase Ammonia Troponin I 0.163 H Total Protein Albumin Globulin Albumin/Globulin Ratio 10/28/19 10/28/1910/27/20 07:00 10:55 10:55 WBC 12.2 H RBC 3.01 L Hgb 9.1 L Hct 29.9 L MCV 99.3 H MCH 30.2 MCHC 30.4 L RDW Std Deviation 61.9 H RDW Coeff of Susan 17.5 H Plt Count 169 MPV 9.1 Immature Gran % (Auto) 0.700 Neut % (Auto) 85.7 H Lymph % (Auto) 8.2 L [place] % (Auto) 4.3 Eos % (Auto) 0.6 Baso % (Auto) 0.5 Absolute Neuts (auto) 10.5 H Absolute Lymphs (auto) 1.00 Nucleated RBC % 0 Platelet Estimate RBC Morphology PT INR APTT Specimen Type Sample Site Puncture Site pCO2 O2 % VBG pH VBG pO2 VBG HCO3 VBG O2 Sat (Calc) VBG O2 Content VBG Base Excess POC Mix VBG pCO2 Pt Tmp O2 Delivery Device Liter Flow FiO2 % FiO2 (liters per min) Blood Gas Notified Whom Blood Gas Notified Time Sodium 129 L Potassium 5.4 H Chloride 100 Carbon Dioxide 22.0 Anion Gap 7 BUN 31 H Creatinine 4.49 H Estim Creat Clear Calc 9.59 Est GFR (MDRD) Af Amer 12 L Est GFR (MDRD) Non-Af 10 L BUN/Creatinine Ratio 6.9 L Glucose 103 Calcium 7.7 L Magnesium 2.0 Total Bilirubin 0.60 Direct Bilirubin AST 33 ALT 15 Alkaline Phosphatase 154 H Ammonia 20.0 Troponin I Total Protein 6.2 L Albumin 1.0 L Globulin 5.2 H Albumin/Globulin Ratio 0.2 L 10/28/19 10:55 WBC RBC Hgb Hct MCV MCH MCHC RDW Std Deviation RDW Coeff of Susan Plt Count MPV Immature Gran % (Auto) Neut % (Auto) Lymph % (Auto) [place] % (Auto) Eos % (Auto) Baso % (Auto) Absolute Neuts (auto) Absolute Lymphs (auto) Nucleated RBC % Platelet Estimate RBC Morphology PT 16.9 H INR 1.4 APTT 41.1 H Specimen Type Sample Site Puncture Site pCO2 O2 % VBG pH VBG pO2 VBG HCO3 VBG O2 Sat (Calc) VBG O2 Content VBG Base Excess POC Mix VBG pCO2 Pt Tmp O2 Delivery Device Liter Flow FiO2 % FiO2 (liters per min) Blood Gas Notified Whom Blood Gas Notified Time Sodium Potassium Chloride Carbon Dioxide Anion Gap BUN Creatinine Estim Creat Clear Calc Est GFR (MDRD) Af Amer Est GFR (MDRD) Non-Af BUN/Creatinine Ratio Glucose Calcium Magnesium Total Bilirubin Direct Bilirubin AST ALT Alkaline Phosphatase Ammonia Troponin I Total Protein Albumin Globulin Albumin/Globulin Ratio - Other Studies Radiology: [] reviewed Other Studies: [] Route of nutrition/ use of supplements: [] Nutritional Intake: [] IV Site: [] Rojas Catheter: [] - Physical Exam General: Alert, Cooperative, No apparent distress HEENT: Atraumatic, PERRLA, EOMI Neck: Supple, No Nodes Lungs: Clear to auscultation, Normal air movement, Diminished Cardiovascular: Regular rate, Regular Rhythm Abdomen: Soft, Non Tender, Distended Extremities: No edema Skin: - - R lateral breast with induration, quite tender, red IV Site: Peripheral, without redness Musculoskeletal: No Tenderness to Palpation of Joints or Extremities Neurological: Cranial nerves II-XII grossly intact - Assessment/Plan Antibiotics: [] Assessment/Plan: [] R breast inflammation with h/o ESRD and cirrhosis - had normal breast u/s on 10/23. Worsened despite iv abx. No fever. Mild leukocytosis. Will order breast MRI w/o contrast. Monitoring off of abx for now. Will follow, thank you, d/w Dr. Tomlin.
--- NOTE | 2019-10-28 13:18 | CT_ITS ---
STUDY: CT CHEST WITHOUT CONTRAST REASON FOR EXAM: Female, 74 years old. PT STATED ACUTE RT BREAST PAIN, HX OF DIALYSIS CATHETER, HEART STENT,COLON RESECTION D/T DIVERTICULITIS,ALBIN/BSO,GB,APPY,RECTAL FISSURE RADIATION DOSAGE (If Supplied By Facility): CTDIvol = ( 19.15 ) mGy, DLP = ( 674.69 ) mGycm TECHNIQUE: Transaxial imaging was performed without the administration of intravenous contrast material. Individualized dose optimization techniques were used for this CT. COMPARISON: 05/23/2019 FINDINGS: Bilateral lower lobe and lingular atelectasis. Bilateral pleural effusions, larger on the right. Cardiomegaly. Stable mild mediastinal fluid near the ascending thoracic aorta. No evidence of acute hemorrhage. Calcified left hilar lymph nodes. Normal unenhanced pulmonary arteries. Normal aorta arch and descending thoracic aorta. Normal osseous structures. Ascites and anasarca. Multiple chest wall varices. CT/Chest without Contrast IMPRESSION: Bilateral lower lobe and lingular atelectasis. Bilateral pleural effusions, larger on the right. Electronically Signed: Joe Galan MD at 0:34 EDT Tel , Service support ,
--- NOTE | 2019-10-28 14:03 | DIALYSIS ---
Hemodialysis x 3.25 hours with 2K bath; Tolerated fair, moaned - pain in abdomen & headache. Removed = ; LUAVF needles pulled; stasis complete; DSD applied; +bruit +Thrill.
--- NOTE | 2019-10-28 14:51 | CASEMGMT ---
SW spoke with patient, introduced self and role at [facility]. SW asked patient about going to a alf facility at discharge. She said maybe she would go somewhere. She did give SW permission to talk with her daughter Jackeline. SW will talk with Jackeline regarding placement for patient. Marylou RAMIREZ MSW
--- NOTE | 2019-10-28 15:57 | CASEMGMT ---
This RN WILLIE to room with SCHMITZ form at this time, explanation done-pt voices understanding, and signs SCHMITZ form at this time. Original to chart and copy to pt at this time. Pt voices no further questions/concerns/needs at this time. SStaten EDIN TAPIA
--- NOTE | 2019-10-28 16:01 | NURSING ---
This RN assuming care of pt at this time
[2019-10-28 17:06] LABS: Bedside Glucose 86 mg/dL (70-110)
--- NOTE | 2019-10-28 17:21 | PN_ITS ---
Subjective: Was seen and examined today, she did not complain of any shortness of breath or chest pain, she did continue to complain of pain over her right upper chest area/skin-I do not know what is causing this discomfort in this area, I briefly discussed this with her instrumental teacher who thought she could maybe have calciphylaxis. I had ID see her in consultation and they recommended a CT of her chest wall which I ordered, unfortunately we had no IV access for contrast and so it was done without contrast. Patient talk to older adult social work specialist today about possibly going to a [facility] facility for short-term rehab, patient was just released from the hospital and she has a tendency to be readmitted shortly after she goes home due to inability to care for herself. She does live with her family but unfortunately they are taking care of her who has dementia also. Patient had dialysis today but she did not have her paracentesis which will be done tomorrow. - Physical Exam Vitals/I&O's: Vital Signs Temp Pulse Resp BP Pulse Ox 98.3 F 98 16 113/48 L 97 10/28/19 15:00 10/28/19 15:00 10/28/19 15:00 10/28/19 15:00 10/28/19 15:00 Oxygen Flow Rate (L/min) 4 Oxygen Delivery Method Nasal Cannula Weight: 91.4 kg Body Mass Index (BMI) 33.6 Finger Stick Blood Glucose 99 Intake and Output for Last 24 Hours 10/26/19 10/27/19 10/28/19 23:59 23:59 23:59 Intake Total 50 / 50 50 / 50 Output Total 0 / 0 1999 Balance 50 / 50 -1950 / -1950 General: Alert, Oriented x3, Cooperative, No apparent distress, Well developed, Well nourished HEENT: Atraumatic, PERRLA, EOMI, Normocephalic Oral: Moist Mucosa Neck: Supple, No JVD, No Nuchal Rigidity, Trachea Midline, Thyroid Normal Size and Texture Lungs: Clear to auscultation, Normal air movement, No rhonchi, No wheeze, No rales Cardiovascular: Regular rate, Regular Rhythm, Normal S1, Normal S2, No murmurs, PMI Normal, No rub noted Abdomen: Bowel Sounds Present, Soft, Non Tender, Non-Distended, No hernias noted Extremities: No clubbing, No cyanosis, No edema, Capillary Refill Less than 3 Seconds Skin: No rashes, No breakdown Musculoskeletal: No Tenderness to Palpation of Joints or Extremities Neurological: Cranial nerves II-XII grossly intact, Neuro grossly intact, Sensory exam intact to light touch and pain, Coordination normal Psych/Mental Status: Normal Affect, Appropriate, Alert and oriented to time, place, person, mood and affect Laboratory Results 10/27/19 18:44: Puncture Site Cancelled, pCO2 Cancelled, VBG pH Cancelled, VBG pO2 Cancelled, VBG HCO3 Cancelled, VBG O2 Sat (Calc) Cancelled, VBG O2 Content Cancelled, VBG Base Excess Cancelled, FiO2 % Cancelled, FiO2 (liters per min) Cancelled 10/27/19 18:44: Specimen Type TRE, Sample Site R BRACHIAL, O2 % 100, VBG pH 7.27 L, VBG pO2 23 L, VBG O2 Sat (Calc) 32 L, VBG O2 Content 33, VBG Base Excess 4 H, POC Mix VBG pCO2 Pt Tmp 66.7 H, O2 Delivery Device NRB, Liter Flow 15.0, Blood Gas Notified Whom ED , Blood Gas Notified Time 184 10/27/19 23:40: POC Glucose 90 10/28/19 05:26: POC Glucose 93 10/28/19 07:00: Troponin I 0.163 H 10/28/19 07:00: Sodium 129 L, Potassium 5.4 H, Chloride 100, Carbon Dioxide 22.0, Anion Gap 7, BUN 31 H, Creatinine 4.49 H, Estim Creat Clear Calc 9.59, Est GFR (MDRD) Af Amer 12 L, Est GFR (MDRD) Non-Af 10 L, BUN/Creatinine Ratio 6.9 L, Glucose 103, Calcium 7.7 L, Magnesium 2.0, Total Bilirubin 0.60, AST 33, ALT 15, Alkaline Phosphatase 154 H, Total Protein 6.2 L, Albumin 1.0 L, Globulin 5.2 H, Albumin/Globulin Ratio 0.2 L 10/28/19 10:55: Ammonia 20.0 10/28/19 10:55: WBC 12.2 H, RBC 3.01 L, Hgb 9.1 L, Hct 29.9 L, MCV 99.3 H, MCH 30.2, MCHC 30.4 L, RDW Std Deviation 61.9 H, RDW Coeff of Susan 17.5 H, Plt Count 169, MPV 9.1, Immature Gran % (Auto) 0.700, Neut % (Auto) 85.7 H, Lymph % (Auto) 8.2 L, [place] % (Auto) 4.3, Eos % (Auto) 0.6, Baso % (Auto) 0.5, Absolute Neuts (auto) 10.5 H, Absolute Lymphs (auto) 1.00, Nucleated RBC % 0 10/28/19 10:55: PT 16.9 H, INR 1.4, APTT 41.1 H 10/28/19 11:19: POC Glucose 84 10/28/19 16:59: POC Glucose 86 Current Medications Acetaminophen (Tylenol) 650 mg PO Q4H PRN PRN PRN Reason: Pain 1-10 and/or Fever > 101.5 Dextrose (D50w Syringe) 0 gm IV X1 PRN; Protocol PRN Reason: Hypoglycemia Glucagon () 1 mg IM .X1 PRN PRN Reason: Hypoglycemia Insulin Human Lispro (Humalog Kwikpen (Bkc)) 0 unit SC Q6 FARZANA; Protocol Last Admin: 10/28/19 17:02 Dose: Not Given Documented by: Midodrine (Proamatine) 10 mg PO TID FARZANA Last Admin: 10/28/19 14:45 Dose: 10 mg Documented by: Multivit/Ca Carb/B Cmplx/FA/Prenat (Nephrocaps, Renaphro) 1 capsule PO DAILY FARZANA Last Admin: 10/28/19 11:24 Dose: 1 capsule Documented by: Sodium Chloride () 10 - 40 ml IV UD PRN PRN Reason: SALINE FLUSH Medical Necessity - Tobacco Use Smoking Status: Former smoker Assessment/Plan All Active Problems (Last Reviewed 10/23/19 @ 16:[address] Timothy Chamberlain MD) Fecal impaction (Resolved) Hematochezia (Resolved) Acute on chronic anemia (Resolved) Hyperkalemia (Acute) NSTEMI (non-ST elevated myocardial infarction) (Resolved) Encephalopathy (Resolved) #1 right breast/chest wall pain-etiology unclear, again patient had a CT of her chest ordered with attention to the soft tissue on the right #2 shortness of breath secondary to fluid overload from noncompliance with dialysis-patient was dialyzed today, she is currently on 4 L of oxygen #3 chronic hypoxic respiratory failure #4 end-stage renal disease on dialysis #5 generalized debility and hopefully the patient will agree to go short-term to an extended care facility for rehab services, I think this will help the patient in the long run. In the meantime, PT and OT will continue to see the patient #6 anemia of chronic renal disease #7 coronary artery disease #8 chronic ascites probably secondary to nonalcoholic liver disease with cirrhosis-patient will undergo paracentesis tomorrow OBSV E&M: [id number] Subsequent observation care L3
[2019-10-28] MEDS: Acetaminophen 325 MG Tablet 650 MG PO (18:25)
--- NOTE | 2019-10-28 19:42 | NURSING ---
Pt daughter, Jackeline called U at this time for update on pt. Update given to Jackeline by this RN.
--- NOTE | 2019-10-28 21:03 | NURSING ---
Pt verbalizing desire to get out of bed later. This RN explains to pt that therapy will see her tomorrow and make recommendations.
[2019-10-28 23:46] LABS: Bedside Glucose 87 mg/dL (70-110)
--- NOTE | 2019-10-28 23:54 | CPS ---
Pt refuses PAP at this time. RN notified
[2019-10-29] VITALS (12 sets, daily range): BP systolic 87–137; BP diastolic 25–70; PULSE 75–104; RESP 13–18; TEMP 36.4–36.9; O2SAT 93–99
[2019-10-29] MEDS: Acetaminophen 325 MG Tablet 650 MG PO ×5 (00:06→22:00)
[2019-10-29] MEDS: Midodrine HCl 5 MG Tablet 10 MG PO ×3 (05:10→22:01)
[2019-10-29 05:11] LABS: Bedside Glucose 80 mg/dL (70-110)
--- NOTE | 2019-10-29 07:00 | US_ITS ---
PROCEDURE: Ultrasound guided paracentesis. DATE OF EXAMINATION: October 29, 2019. INDICATION: Female, 74 years old. Ascites. PHYSICIAN: Eric Mckay M.D. TECHNIQUE: The risks, benefits, and alternatives to the procedure were explained to the patient. The specific risks of bleeding, infection, and damage to bowel were detailed and accepted. Witnessed informed consent was obtained. The abdomen was ultrasonographically surveyed. An appropriate pocket of fluid was identified at the right lower quadrant. The skin were cleaned and prepped in the usual sterile fashion. Using ultrasound guidance, the peritoneal cavity was accessed with a 5-[place] paracentesis needle/catheter system. The trocar was removed. A total of 3900 ml of ron-colored fluid were removed from the peritoneal cavity. The catheter was removed and a sterile dressing was applied. The procedure was well tolerated. US/Paracentesis with US IMPRESSION: Ultrasound guided paracentesis. Electronically Signed: Eric Mckay, at 13:24 EDT , Service support ,
--- NOTE | 2019-10-29 09:00 | PCM.PN.REN ---
Subjective: seen on dialysis, BP low at start of treatment. Midodrine ordered. Run on 3K with stat K pending. Paracentesis today. Still complains of rt breast pain - Physical Exam Vitals/I&O's: Vital Signs Temp Pulse Resp BP Pulse Ox 97.6 F L 75 13 112/70 95 10/29/19 02:57 10/29/19 08:03 10/29/19 02:57 10/29/19 02:57 10/29/19 08:19 Oxygen Flow Rate (L/min) 4 Oxygen Delivery Method Nasal Cannula Weight: 89.1 kg Body Mass Index (BMI) 33.6 Finger Stick Blood Glucose 99 Intake and Output for Last 24 Hours 10/27/19 10/28/19 10/29/19 23:59 23:59 23:59 Intake Total 50 / 50 315 / 315 240 / 240 Output Total 0 / 0 1999 0 / 0 Balance 50 / 50 -1685 / -1685 240 / 240 General: - - somnolent Lungs: Clear to auscultation Cardiovascular: Irregular Rate, Murmur Abdomen: Bowel Sounds Present, Soft, Distended, Obese Extremities: Edema - mild Skin: - - rt lateral breast pain, erythema Musculoskeletal: Muscle Wasting Psych/Mental Status: - - somnolent Laboratory Results 10/27/19 18:44: Puncture Site Cancelled, pCO2 Cancelled, VBG pH Cancelled, VBG pO2 Cancelled, VBG HCO3 Cancelled, VBG O2 Sat (Calc) Cancelled, VBG O2 Content Cancelled, VBG Base Excess Cancelled, FiO2 % Cancelled, FiO2 (liters per min) Cancelled 10/28/19 10:55: Ammonia 20.0 10/28/19 10:55: WBC 12.2 H, RBC 3.01 L, Hgb 9.1 L, Hct 29.9 L, MCV 99.3 H, MCH 30.2, MCHC 30.4 L, RDW Std Deviation 61.9 H, RDW Coeff of Susan 17.5 H, Plt Count 169, MPV 9.1, Immature Gran % (Auto) 0.700, Neut % (Auto) 85.7 H, Lymph % (Auto) 8.2 L, [place] % (Auto) 4.3, Eos % (Auto) 0.6, Baso % (Auto) 0.5, Absolute Neuts (auto) 10.5 H, Absolute Lymphs (auto) 1.00, Nucleated RBC % 0 10/28/19 10:55: PT 16.9 H, INR 1.4, APTT 41.1 H 10/28/19 11:19: POC Glucose 84 10/28/19 16:59: POC Glucose 86 10/28/19 23:39: POC Glucose 87 10/29/19 05:02: POC Glucose 80 Current Medications Acetaminophen (Tylenol) 650 mg PO Q4H PRN PRN PRN Reason: Pain 1-10 and/or Fever > 101.5 Last Admin: 10/29/19 05:03 Dose: 650 mg Documented by: Dextrose (D50w Syringe) 0 gm IV X1 PRN; Protocol PRN Reason: Hypoglycemia Glucagon () 1 mg IM .X1 PRN PRN Reason: Hypoglycemia Insulin Human Lispro (Humalog Kwikpen (Bkc)) 0 unit SC Q6 FARZANA; Protocol Last Admin: 10/29/19 05:05 Dose: Not Given Documented by: Midodrine (Proamatine) 10 mg PO TID [facility] Last Admin: 10/29/19 05:10 Dose: 10 mg Documented by: Multivit/Ca Carb/B Cmplx/FA/Prenat (Nephrocaps, Renaphro) 1 capsule PO DAILY [facility] Last Admin: 10/28/19 11:24 Dose: 1 capsule Documented by: Sodium Chloride () 10 - 40 ml IV UD PRN PRN Reason: SALINE FLUSH Medical Necessity - Tobacco Use Smoking Status: Former smoker Assessment/Plan All Active Problems (Last Reviewed 10/23/19 @ 16:[address] Timothy Chamberlain MD) Fecal impaction (Resolved) Hematochezia (Resolved) Acute on chronic anemia (Resolved) Hyperkalemia (Acute) NSTEMI (non-ST elevated myocardial infarction) (Resolved) Encephalopathy (Resolved) 1. ESRD HD Today. Seen on dialysis. HD MWF 2. Chronic hypotension, midodrine tid 3. Rt breast pain with cellulitis ID consulted 4. Liver cirrhosis with ascite, paracentesis 5. encephalopathy stable. 6. Anemia CARMEN on dialysis, hx GI bleed 7. Constipation/obstipation lactulose daily
[2019-10-29] MEDS: Folic Acid/Vitamin B Comp W-C 1 Capsule 1 CAP PO (09:26)
--- NOTE | 2019-10-29 09:50 | CASEMGMT ---
MARGO spoke with patient and she does want to go to [place]. She was on the phone with Julissa from [facility] who is now aware of patient's d/c plan. MARGO spoke with Candelaria at [facility] [place] with referral and SW faxed initial information. MARGO will fax therapy once she is able to have it as she has been on dialysis. Plan: d/c to [place] pending being medically ready and insurance approval. Marylou RAMIERZ MSW
--- NOTE | 2019-10-29 10:38 | NURSING ---
call placed to daughter and update given on patients condition
--- NOTE | 2019-10-29 11:29 | DIALYSIS ---
HD X 3.15 HRS PT REFUSED TO RUN THE ORDERED 4.15 HOURS DUE TO EXTREME PAIN IN RIGHT BREAST. [id number]. BP STABLE DURING TREATMENT. STASIS AT LEFT ARM FISTULAS. DSG AT SITES. REPORT TO BRANDO JESUS
--- NOTE | 2019-10-29 12:11 | NURSING ---
oj given for bs of 59
[2019-10-29 12:20] LABS: Potassium 3.5 mmol/L (3.5-5.1)
[2019-10-29 12:21] LABS: Bedside Glucose 61 mg/dL (70-110)
--- NOTE | 2019-10-29 14:19 | PN_ITS ---
Reason for Visit: hypoxia Subjective: Complains of severe right breast pain. Vitals/I&O's: Vital Signs Temp Pulse Resp BP Pulse Ox 36.7 C 83 18 102/64 94 10/29/19 14:16 10/29/19 14:16 10/29/19 14:16 10/29/19 14:16 10/29/19 14:16 Oxygen Flow Rate (L/min) [2] 4 Oxygen Flow Rate (L/min) [1 ( 4 Initial Baseline)] Oxygen Flow Rate (L/min) 4 Oxygen Delivery Method [2] Nasal Cannula Oxygen Delivery Method [1 ( Nasal Cannula Initial Baseline)] Oxygen Delivery Method Nasal Cannula Weight: 89.1 kg Body Mass Index (BMI) 33.6 Finger Stick Blood Glucose 99 Intake and Output for Last 24 Hours 10/27/19 10/28/19 10/29/19 23:59 23:59 23:59 Intake Total 50 / 50 315 / 315 360 / 360 Output Total 0 / 0 1999 / 1999 03965 / 56369 Balance 50 / 50 -1685 / -1685 -83503 / -52404 General: Alert, No apparent distress HEENT: Atraumatic, Normocephalic Oral: Moist Mucosa, No Gingival or Mucosal Lesions/ Ulcerations Neck: No Nodes, Thyroid Normal Size and Texture Lungs: Clear to auscultation, Normal air movement, No rhonchi, No wheeze, No rales Cardiovascular: Regular rate, Regular Rhythm, Normal S1, Normal S2, No murmurs Abdomen: Bowel Sounds Present, Soft, Non Tender, Non-Distended, No Hepato- splenomegaly Extremities: No edema, No Calf Tenderness Skin: - - indurated right breast with erythema. Psych/Mental Status: Normal Affect, Appropriate Laboratory Results 10/28/19 16:59: POC Glucose 86 10/28/19 23:39: POC Glucose 87 10/29/19 05:02: POC Glucose 80 10/29/19 08:30: Potassium 3.5 10/29/19 12:05: COVID-19 ([facility]) Pending 10/29/19 12:06: POC Glucose 61 L Current Medications Acetaminophen (Tylenol) 650 mg PO Q4H PRN PRN PRN Reason: Pain 1-10 and/or Fever > 101.5 Last Admin: 10/29/19 14:13 Dose: 650 mg Documented by: Dextrose (D50w Syringe) 0 gm IV X1 PRN; Protocol PRN Reason: Hypoglycemia Glucagon () 1 mg IM .X1 PRN PRN Reason: Hypoglycemia Insulin Human Lispro (Humalog Kwikpen (Bkc)) 0 unit SC Q6 [facility]; Protocol Last Admin: 10/29/19 12:28 Dose: Not Given Documented by: Midodrine (Proamatine) 10 mg PO TID [facility] Last Admin: 10/29/19 09:25 Dose: 10 mg Documented by: Multivit/Ca Carb/B Cmplx/FA/Prenat (Nephrocaps, Renaphro) 1 capsule PO DAILY [facility] Last Admin: 10/29/19 09:26 Dose: 1 capsule Documented by: Sodium Chloride () 10 - 40 ml IV UD PRN PRN Reason: SALINE FLUSH STROKE Vital Signs/Narrative: Vital Signs Temp Pulse Pulse Pulse Resp Resp Resp 10/29/19 14:16 36.7 C 83 18 10/29/19 12:45 92 84 18 16 BP BP BP Pulse Ox 10/29/19 14:16 102/64 94 10/29/19 12:45 87/51 L 96/25 L Medical Necessity - Tobacco Use Smoking Status: Former smoker Assessment/Plan All Active Problems (Last Reviewed 10/23/19 @ 16:[address] Timothy Chamberlain MD) Fecal impaction (Resolved) Hematochezia (Resolved) Acute on chronic anemia (Resolved) Hyperkalemia (Acute) NSTEMI (non-ST elevated myocardial infarction) (Resolved) Encephalopathy (Resolved) 1. right breast erythema * etiology unclear: cellulitis, mastitis, v inflammatory breast CA * on linezolid * Breast US on 10/23 showed no abscess * ID following * warm compress 2. dyspnea: * secondary to fluid overload from noncompliance with dialysis-patient was dialyzed today, she is currently on 4 L of oxygen 3 chronic diseases: chronic resp failure, ESRD, anemia of CD, CAD: stable. complicates overall care. 4. chronic ascites * probably secondary to nonalcoholic liver disease with cirrhosis-patient will undergo paracentesis tomorrow 5. VTE prophy: SCDs Inpatient E&M: [id number] Subs Hosp L2
--- NOTE | 2019-10-29 14:31 | US_ITS ---
STUDY: ULTRASOUND BREAST - RIGHT REASON FOR EXAM: Female, 74 years old. Lateral right breast pain with the swelling in erythema. TECHNIQUE: Axial and longitudinal images of the RIGHT breast were performed with a high resolution ultrasound transducer. # OF IMAGES: 33 COMPARISON: Comparison is made with prior ultrasound of the breast dated October 24, 2019. FINDINGS: RIGHT Breast: The entire breast was examined by ultrasound. There is evidence of blood dilated subareolar ducts. There is evidence of a 2.6 cm x 2.1 cm x 1.2 cm hypoechoic irregular nodule at the 12:00 position of the breast at 4 cm from nipple. This does not have the appearance of an abscess. US/Breast Complete Unilateral IMPRESSION: 2.6 cm x 2.1 cm x 1.2 cm hypoechoic irregular nodule at the 12:00 position the breast at 4 cm from nipple. This was not present on prior examination. Aspiration is recommended. ASSESSMENT CATEGORY: BIRADS Category 2: Benign. A letter regarding these results will be sent to the patient by the facility within 30 days. Electronically Signed: Eric Mckay, at 8:04 EDT , Service support ,
--- NOTE | 2019-10-29 14:32 | PN.ID_ITS ---
Subjective: Worsened R breast pain, redness. No fever. - Physical Exam Vitals/I&O's: Vital Signs Temp Pulse Resp BP Pulse Ox 98.1 F 83 18 102/64 94 10/29/19 14:16 10/29/19 14:16 10/29/19 14:16 10/29/19 14:16 10/29/19 14:16 Oxygen Flow Rate (L/min) [2] 4 Oxygen Flow Rate (L/min) [1 ( 4 Initial Baseline)] Oxygen Flow Rate (L/min) 4 Oxygen Delivery Method [2] Nasal Cannula Oxygen Delivery Method [1 ( Nasal Cannula Initial Baseline)] Oxygen Delivery Method Nasal Cannula Weight: 89.1 kg Body Mass Index (BMI) 33.6 Finger Stick Blood Glucose 99 Intake and Output for Last 24 Hours 10/27/19 10/28/19 10/29/19 23:59 23:59 23:59 Intake Total 50 / 50 315 / 315 360 / 360 Output Total 0 / 0 1999 / 1999 39578 / 00117 Balance 50 / 50 -1685 / -1685 -87699 / -82857 General: Alert, Cooperative, No apparent distress Lungs: Clear to auscultation, Normal air movement Cardiovascular: Regular rate, Regular Rhythm Abdomen: Soft, Distended Skin: - - R breast increased inflammation Laboratory Results 10/28/19 16:59: POC Glucose 86 10/28/19 23:39: POC Glucose 87 10/29/19 05:02: POC Glucose 80 10/29/19 08:30: Potassium 3.5 10/29/19 12:05: COVID-19 ([facility]) Pending 10/29/19 12:06: POC Glucose 61 L Current Medications Acetaminophen (Tylenol) 650 mg PO Q4H PRN PRN PRN Reason: Pain 1-10 and/or Fever > 101.5 Last Admin: 10/29/19 14:13 Dose: 650 mg Documented by: Dextrose (D50w Syringe) 0 gm IV X1 PRN; Protocol PRN Reason: Hypoglycemia Glucagon () 1 mg IM .X1 PRN PRN Reason: Hypoglycemia Insulin Human Lispro (Humalog Kwikpen (Bkc)) 0 unit SC Q6 [facility]; Protocol Last Admin: 10/29/19 12:28 Dose: Not Given Documented by: Midodrine (Proamatine) 10 mg PO TID [facility] Last Admin: 10/29/19 09:25 Dose: 10 mg Documented by: Multivit/Ca Carb/B Cmplx/FA/Prenat (Nephrocaps, Renaphro) 1 capsule PO DAILY [facility] Last Admin: 10/29/19 09:26 Dose: 1 capsule Documented by: Sodium Chloride () 10 - 40 ml IV UD PRN PRN Reason: SALINE FLUSH Medical Necessity - Tobacco Use Smoking Status: Former smoker Route of nutrition/ use of supplements: [] Nutritional Intake: [] IV Site: [] Rojas Catheter: [] - Assessment/Plan Antibiotics: [] Assessment/Plan: [] R breast inflammation with h/o ESRD and cirrhosis - Worsened today. Will start linezolid and check breast u/s. Unable to tolerate MRI per nursing. Will follow
[2019-10-29] MEDS: oxyCODONE 5 MG Tablet 10 MG PO ×2 (15:34→22:00)
--- NOTE | 2019-10-29 15:49 | CASEMGMT ---
[facility] faxed PT/OT evaluations to [facility] and asked her to please start the pre-cert for patient. Plan: [facility] pending insurance approval. Marylou RAMIREZ MSW
[2019-10-29] MEDS: Linezolid 600 MG Tablet PO ×2 (16:25→22:01)
[2019-10-29 16:31] LABS: Bedside Glucose 143 mg/dL (70-110)
[2019-10-29] MEDS: Lactulose 20 GM/30 ML UDC 30 GM PO (22:00)
[2019-10-29] MEDS: MELATONIN 10 MG TABLET 5 MG PO (22:01)
[2019-10-29 23:56] LABS: Bedside Glucose 169 mg/dL (70-110)
[2019-10-29] MEDS: Insulin Lispro 100 UNIT/ML INSULN.PEN SC (23:57)
[2019-10-30] VITALS (9 sets, daily range): BP systolic 83–105; BP diastolic 35–59; PULSE 67–96; RESP 14–18; TEMP 36.6–37; O2SAT 96–99
[2019-10-30] MEDS: Ondansetron 4 MG/2 ML Vial IV (00:45)
[2019-10-30] MEDS: Midodrine HCl 5 MG Tablet 10 MG PO ×2 (06:13→15:20)
[2019-10-30] MEDS: Lactulose 20 GM/30 ML UDC 30 GM PO (06:14)
--- NOTE | 2019-10-30 06:21 | CPS ---
PT REFUSES BIPAP
[2019-10-30 06:26] LABS: Bedside Glucose 142 mg/dL (70-110)
--- NOTE | 2019-10-30 07:41 | CASEMGMT ---
Patient was approved to go to [facility]. SW will notify physician. Plan: d/c to [facility] under skilled level of care when ready. Marylou RAMIREZ MSW
[2019-10-30 07:55] LABS: Absolute Lymphocyte Count 1.73 X10^3/uL (0.83-4.51); Absolute Neutrophil Count 14.4 X10^3/uL (2.0-7.7); Basophil# 0.05 X10^3/uL; Basophil% 0.3 % (0-1); Eosinophil# 0.17 X10^3/uL; Hematocrit 33.8 % (37-47); Lymphocyte # 1.73 X10^3/ul (4.0); Lymphocyte % 9.8 % (19-41); Mean Corp Hgb Conc 29.6 g/dL (32-36); Mean Corpuscular Hgb 29.5 pg (27.0-32.0); Mean Corpuscular Volume 99.7 fL (81-99); Mean Platelet Vol. 8.9 fl (6.2-12.0); Monocyte# 1.06 X10^3/uL; NRBC Flagged by Analyzer 0 % (0-5); Neutrophil # 14.44 X10^3/uL (2.7-7.7); Platelet Count 207 K/mm3 (150-450); RBC Distribution Width CV 17.6 % (11.6-14.6); RBC Distribution Width SD 63.7 fl (35.1-43.9); Red Blood Count 3.39 M/mm3 (4.2-5.4); White Blood Count 17.6 K/mm3 (4.4-11.0)
[2019-10-30 08:12] LABS: Anion Gap 5 (5-15); BUN 16 mg/dL (7-18); BUN/Creat Ratio 5.7 RATIO (10-20); Calcium,Total 8.3 mg/dL (8.5-10.1); Chloride 101 mmol/L (98-107); EST Glomerular Filtration Rate 17 mL/min (>60); Est Glom Filt Rate - Afr Amer 21 mL/min (>60); Estimated Creatinine Clearance 15.38 ml/min; Glucose 149 mg/dL (74-106); Potassium 4.1 mmol/L (3.5-5.1); Sodium Level 131 mmol/L (136-145)
[2019-10-30] MEDS: Linezolid 600 MG Tablet PO (08:28)
[2019-10-30] MEDS: Folic Acid/Vitamin B Comp W-C 1 Capsule 1 CAP PO (08:28)
--- NOTE | 2019-10-30 08:50 | PCM.PN.REN ---
Subjective: depressed mood. Still with rt breast pain, WBC elevated at 17K. ID following. STarted on linezolid - Physical Exam Vitals/I&O's: Vital Signs Temp Pulse Resp BP Pulse Ox 98.6 F 86 18 100/45 L 99 10/30/19 06:00 10/30/19 07:16 10/30/19 06:00 10/30/19 06:00 10/30/19 07:55 Oxygen Flow Rate (L/min) [2] 4 Oxygen Flow Rate (L/min) [1 ( 4 Initial Baseline)] Oxygen Flow Rate (L/min) 4 Oxygen Delivery Method [2] Nasal Cannula Oxygen Delivery Method [1 ( Nasal Cannula Initial Baseline)] Oxygen Delivery Method Nasal Cannula Weight: 83.3 kg Body Mass Index (BMI) 33.6 Finger Stick Blood Glucose 99 Intake and Output for Last 24 Hours 10/28/19 10/29/19 10/30/19 23:59 23:59 23:59 Intake Total 315 / 315 840 / 840 Output Total 1999 28830 / 02135 0 / 0 Balance -1685 / -1685 -9560 / -9560 0 / 0 General: Alert, Oriented x3, Cooperative, - - depressed Lungs: Clear to auscultation Cardiovascular: Irregular Rate, Murmur Abdomen: Bowel Sounds Present, Soft, Non Tender, Distended, Obese Extremities: Edema - chronic, mild Skin: - - erythema rt lat breast Psych/Mental Status: Depressed, Alert and oriented to time, place, person, mood and affect Laboratory Results 10/29/19 08:30: Potassium 3.5 10/29/19 12:05: COVID-19 ([facility]) Not Detected 10/29/19 12:06: POC Glucose 61 L 10/29/19 16:24: POC Glucose 143 H 10/29/19 23:51: POC Glucose 169 H 10/30/19 06:10: POC Glucose 142 H 10/30/19 07:45: WBC 17.6 H, RBC 3.39 L, Hgb 10.0 L, Hct 33.8 L, MCV 99.7 H, MCH 29.5, MCHC 29.6 L, RDW Std Deviation 63.7 H, RDW Coeff of Susan 17.6 H, Plt Count 207, MPV 8.9, Immature Gran % (Auto) 0.900, Neut % (Auto) 82.0 H, Lymph % (Auto) 9.8 L, [place] % (Auto) 6.0, Eos % (Auto) 1.0, Baso % (Auto) 0.3, Absolute Neuts (auto) 14.4 H, Absolute Lymphs (auto) 1.73, Nucleated RBC % 0 10/30/19 07:45: Sodium 131 L, Potassium 4.1, Chloride 101, Carbon Dioxide 25.0, Anion Gap 5, BUN 16, Creatinine 2.80 H, Estim Creat Clear Calc 15.38, Est GFR (MDRD) Af Amer 21 L, Est GFR (MDRD) Non-Af 17 L, BUN/Creatinine Ratio 5.7 L, Glucose 149 H, Calcium 8.3 L Current Medications Acetaminophen (Tylenol) 650 mg PO Q4H PRN PRN PRN Reason: Pain 1-10 and/or Fever > 101.5 Last Admin: 10/29/19 22:00 Dose: 650 mg Documented by: Dextrose (D50w Syringe) 0 gm IV X1 PRN; Protocol PRN Reason: Hypoglycemia Glucagon () 1 mg IM .X1 PRN PRN Reason: Hypoglycemia Insulin Human Lispro (Humalog Kwikpen (Bkc)) 0 unit SC Q6 [facility]; Protocol Last Admin: 10/30/19 06:16 Dose: Not Given Documented by: Lactulose (Chronulac, Cephulac) 30 gm PO TID [facility] Last Admin: 10/30/19 06:14 Dose: 30 gm Documented by: Linezolid (Zyvox) 600 mg PO BID [facility] Last Admin: 10/30/19 08:28 Dose: 600 mg Documented by: Melatonin (Melatonin) 5 mg PO QHS [facility] Last Admin: 10/29/19 22:01 Dose: 5 mg Documented by: Midodrine (Proamatine) 10 mg PO TID [facility] Last Admin: 10/30/19 06:13 Dose: 10 mg Documented by: Multivit/Ca Carb/B Cmplx/FA/Prenat (Nephrocaps, Renaphro) 1 capsule PO DAILY [facility] Last Admin: 10/30/19 08:28 Dose: 1 capsule Documented by: Ondansetron HCl (Zofran) 4 mg IV Q6H PRN PRN PRN Reason: nausea and vomiting Last Admin: 10/30/19 00:45 Dose: 4 mg Documented by: Oxycodone HCl (Oxyir) 10 mg PO Q6H PRN PRN PRN Reason: PAIN -02/27 Last Admin: 10/29/19 22:00 Dose: 10 mg Documented by: Sevelamer Carbonate (Renvela) 800 mg PO TIDCM [facility] Sodium Chloride () 10 - 40 ml IV UD PRN PRN Reason: SALINE FLUSH Medical Necessity - Tobacco Use Smoking Status: Former smoker Assessment/Plan All Active Problems (Last Reviewed 10/23/19 @ 16:[address] Timothy Chamberlain MD) Fecal impaction (Resolved) Hematochezia (Resolved) Acute on chronic anemia (Resolved) Hyperkalemia (Acute) NSTEMI (non-ST elevated myocardial infarction) (Resolved) Encephalopathy (Resolved) 1. ESRD HD MWF 2. Chronic hypotension, midodrine tid 3. Rt breast pain with cellulitis ID consulted. WBC elevated at 17K 4. Liver cirrhosis with ascite, paracentesis 5. encephalopathy stable. 6. Anemia [facility] on dialysis, hx GI bleed 7. Constipation/obstipation lactulose daily 8. Resume binders, check phos
[2019-10-30 09:30] LABS: Phosphorus 3.4 mg/dL (2.5-4.9)
--- NOTE | 2019-10-30 10:16 | PCM.PN.ID ---
Subjective: Pain about the same, no fever, wants to go home - Physical Exam Vitals/I&O's: Vital Signs Temp Pulse Resp BP Pulse Ox 98.6 F 86 18 100/45 L 99 10/30/19 06:00 10/30/19 07:16 10/30/19 06:00 10/30/19 06:00 10/30/19 07:55 Oxygen Flow Rate (L/min) [2] 4 Oxygen Flow Rate (L/min) [1 ( 4 Initial Baseline)] Oxygen Flow Rate (L/min) 4 Oxygen Delivery Method [2] Nasal Cannula Oxygen Delivery Method [1 ( Nasal Cannula Initial Baseline)] Oxygen Delivery Method Nasal Cannula Weight: 83.3 kg Body Mass Index (BMI) 33.6 Finger Stick Blood Glucose 99 Intake and Output for Last 24 Hours 10/28/19 10/29/19 10/30/19 23:59 23:59 23:59 Intake Total 315 / 315 840 / 840 Output Total 1999 / 1999 34171 / 12812 0 / 0 Balance -1685 / -1685 -9560 / -9560 0 / 0 General: Alert, Cooperative, No apparent distress Lungs: Clear to auscultation, Normal air movement Cardiovascular: Regular rate, Regular Rhythm Abdomen: Soft, Non Tender, Non-Distended Skin: - - R breast less red, grooving lathe tender and indurated Laboratory Results 10/29/19 08:30: Potassium 3.5 10/29/19 12:05: COVID-19 ([facility]) Not Detected 10/29/19 12:06: POC Glucose 61 L 10/29/19 16:24: POC Glucose 143 H 10/29/19 23:51: POC Glucose 169 H 10/30/19 06:10: POC Glucose 142 H 10/30/19 07:45: WBC 17.6 H, RBC 3.39 L, Hgb 10.0 L, Hct 33.8 L, MCV 99.7 H, MCH 29.5, MCHC 29.6 L, RDW Std Deviation 63.7 H, RDW Coeff of Susan 17.6 H, Plt Count 207, MPV 8.9, Immature Gran % (Auto) 0.900, Neut % (Auto) 82.0 H, Lymph % (Auto) 9.8 L, [place] % (Auto) 6.0, Eos % (Auto) 1.0, Baso % (Auto) 0.3, Absolute Neuts (auto) 14.4 H, Absolute Lymphs (auto) 1.73, Nucleated RBC % 0 10/30/19 07:45: Sodium 131 L, Potassium 4.1, Chloride 101, Carbon Dioxide 25.0, Anion Gap 5, BUN 16, Creatinine 2.80 H, Estim Creat Clear Calc 15.38, Est GFR (MDRD) Af Amer 21 L, Est GFR (MDRD) Non-Af 17 L, BUN/Creatinine Ratio 5.7 L, Glucose 149 H, Calcium 8.3 L 10/30/19 07:45: Phosphorus 3.4 Current Medications Acetaminophen (Tylenol) 650 mg PO Q4H PRN PRN PRN Reason: Pain 1-10 and/or Fever > 101.5 Last Admin: 10/29/19 22:00 Dose: 650 mg Documented by: Dextrose (D50w Syringe) 0 gm IV X1 PRN; Protocol PRN Reason: Hypoglycemia Glucagon () 1 mg IM .X1 PRN PRN Reason: Hypoglycemia Insulin Human Lispro (Humalog Kwikpen (Bkc)) 0 unit SC Q6 [facility]; Protocol Last Admin: 10/30/19 06:16 Dose: Not Given Documented by: Lactulose (Chronulac, Cephulac) 30 gm PO TID [facility] Last Admin: 10/30/19 06:14 Dose: 30 gm Documented by: Linezolid (Zyvox) 600 mg PO BID [facility] Last Admin: 10/30/19 08:28 Dose: 600 mg Documented by: Melatonin (Melatonin) 5 mg PO QHS [facility] Last Admin: 10/29/19 22:01 Dose: 5 mg Documented by: Midodrine (Proamatine) 10 mg PO TID [facility] Last Admin: 10/30/19 06:13 Dose: 10 mg Documented by: Multivit/Ca Carb/B Cmplx/FA/Prenat (Nephrocaps, Renaphro) 1 capsule PO DAILY [facility] Last Admin: 10/30/19 08:28 Dose: 1 capsule Documented by: Ondansetron HCl (Zofran) 4 mg IV Q6H PRN PRN PRN Reason: nausea and vomiting Last Admin: 10/30/19 00:45 Dose: 4 mg Documented by: Oxycodone HCl (Oxyir) 10 mg PO Q6H PRN PRN PRN Reason: PAIN -02/27 Last Admin: 10/29/19 22:00 Dose: 10 mg Documented by: Sevelamer Carbonate (Renvela) 800 mg PO TIDCM [facility] Sodium Chloride () 10 - 40 ml IV UD PRN PRN Reason: SALINE FLUSH Medical Necessity - Tobacco Use Smoking Status: Former smoker Route of nutrition/ use of supplements: [] Nutritional Intake: [] IV Site: [] Rojas Catheter: [] - Assessment/Plan Antibiotics: [] Assessment/Plan: [] R breast inflammation with h/o ESRD and cirrhosis - Redness slightly better today. U/s with focal change. Will order u/s guided aspiration, send sample for path and culture. Cont linezolid, planned 2 week total course. Ok for d/c after aspiration is done with ID followup in 1 week. Wrote rx. Will follow, d/w Dr. Jauregui
[2019-10-30] MEDS: SEVELAMER CARBONATE 800 MG TABLET PO ×2 (11:46)
[2019-10-30] MEDS: Insulin Lispro 100 UNIT/ML INSULN.PEN SC (11:46)
[2019-10-30 12:05] LABS: Bedside Glucose 155 mg/dL (70-110)
--- NOTE | 2019-10-30 13:13 | PCM.PN.SRG ---
Subjective: I initially saw the patient last week and she had induration of the breast but the ultrasound at that time was negative. She had a more recent ultrasound done which showed:IMPRESSION: 2.6 cm x 2.1 cm x 1.2 cm hypoechoic irregular nodule at the 12:00 position the breast at 4 cm from nipple. This was not present on prior examination. Aspiration is recommended. She is only been on her antibiotics now for 2 days. She is still complaining of tenderness in the inferior aspect of her right breast. Objective: Induration still noted on the inferior aspect of the right breast. back tender cylinder to touch. No fluctuance is identified. - Physical Exam Vitals/I&O's: Vital Signs Temp Pulse Resp BP Pulse Ox 98.2 F 81 18 95/35 L 96 10/30/19 11:54 10/30/19 11:54 10/30/19 11:54 10/30/19 11:54 10/30/19 11:54 Oxygen Flow Rate (L/min) [2] 4 Oxygen Flow Rate (L/min) [1 ( 4 Initial Baseline)] Oxygen Flow Rate (L/min) 4 Oxygen Delivery Method [2] Nasal Cannula Oxygen Delivery Method [1 ( Nasal Cannula Initial Baseline)] Oxygen Delivery Method Room Air Weight: 183 lb 10.321 oz Body Mass Index (BMI) 33.6 Finger Stick Blood Glucose 99 Intake and Output for Last 24 Hours 10/28/19 10/29/19 10/30/19 23:59 23:59 23:59 Intake Total 315 / 315 840 / 840 240 / 240 Output Total 1999 / 1999 64750 / 59823 0 / 0 Balance -1685 / -1685 -9560 / -9560 240 / 240 Laboratory Results 10/29/19 12:05: COVID-19 ([facility]) Not Detected 10/29/19 16:24: POC Glucose 143 H 10/29/19 23:51: POC Glucose 169 H 10/30/19 06:10: POC Glucose 142 H 10/30/19 07:45: WBC 17.6 H, RBC 3.39 L, Hgb 10.0 L, Hct 33.8 L, MCV 99.7 H, MCH 29.5, MCHC 29.6 L, RDW Std Deviation 63.7 H, RDW Coeff of Susan 17.6 H, Plt Count 207, MPV 8.9, Immature Gran % (Auto) 0.900, Neut % (Auto) 82.0 H, Lymph % (Auto) 9.8 L, [place] % (Auto) 6.0, Eos % (Auto) 1.0, Baso % (Auto) 0.3, Absolute Neuts (auto) 14.4 H, Absolute Lymphs (auto) 1.73, Nucleated RBC % 0 10/30/19 07:45: Sodium 131 L, Potassium 4.1, Chloride 101, Carbon Dioxide 25.0, Anion Gap 5, BUN 16, Creatinine 2.80 H, Estim Creat Clear Calc 15.38, Est GFR (MDRD) Af Amer 21 L, Est GFR (MDRD) Non-Af 17 L, BUN/Creatinine Ratio 5.7 L, Glucose 149 H, Calcium 8.3 L 10/30/19 07:45: Phosphorus 3.4 10/30/19 11:43: POC Glucose 155 H Current Medications Acetaminophen (Tylenol) 650 mg PO Q4H PRN PRN PRN Reason: Pain 1-10 and/or Fever > 101.5 Last Admin: 10/29/19 22:00 Dose: 650 mg Documented by: Dextrose (D50w Syringe) 0 gm IV X1 PRN; Protocol PRN Reason: Hypoglycemia Glucagon () 1 mg IM .X1 PRN PRN Reason: Hypoglycemia Insulin Human Lispro (Humalog Kwikpen (Bkc)) 0 unit SC Q6 [facility]; Protocol Last Admin: 10/30/19 11:46 Dose: 1 units Documented by: Lactulose (Chronulac, Cephulac) 30 gm PO TID [facility] Last Admin: 10/30/19 06:14 Dose: 30 gm Documented by: Linezolid (Zyvox) 600 mg PO BID [facility] Last Admin: 10/30/19 08:28 Dose: 600 mg Documented by: Melatonin (Melatonin) 5 mg PO QHS [facility] Last Admin: 10/29/19 22:01 Dose: 5 mg Documented by: Midodrine (Proamatine) 10 mg PO TID [facility] Last Admin: 10/30/19 06:13 Dose: 10 mg Documented by: Multivit/Ca Carb/B Cmplx/FA/Prenat (Nephrocaps, Renaphro) 1 capsule PO DAILY [facility] Last Admin: 06/11/20 08:28 Dose: 1 capsule Documented by: Ondansetron HCl (Zofran) 4 mg IV Q6H PRN PRN PRN Reason: nausea and vomiting Last Admin: 10/30/19 00:45 Dose: 4 mg Documented by: Oxycodone HCl (Oxyir) 10 mg PO Q6H PRN PRN PRN Reason: PAIN 1-02/27 Last Admin: 10/29/19 22:00 Dose: 10 mg Documented by: Sevelamer Carbonate (Renvela) 800 mg PO TIDCM [facility] Last Admin: 10/30/19 11:46 Dose: 800 mg Documented by: Sodium Chloride () 10 - 40 ml IV UD PRN PRN Reason: SALINE FLUSH Medical Necessity - Tobacco Use Smoking Status: Former smoker Assessment/Plan All Active Problems (Last Reviewed 10/23/19 @ 16:[address] Timothy Chamberlain MD) Fecal impaction (Resolved) Hematochezia (Resolved) Acute on chronic anemia (Resolved) Hyperkalemia (Acute) NSTEMI (non-ST elevated myocardial infarction) (Resolved) Encephalopathy (Resolved) This point I think it is okay for the patient to be discharged. I like to see her back in the office in 2 weeks and hopefully by that time the antibiotics will take and hold in her induration will be gone. At that point I think a biopsy in the office would be appropriate. Inpatient E&M: 02300 Subs Hosp L2
--- NOTE | 2019-10-30 14:25 | PCM.TXEXTCAR ---
- Diet 10/29/19 14:37 Diet: Cardiac: Carb-Controlled Dietary Modifications:: Low Phosphorous Diet Low Potassium Restriction Is pt able to select menu?: No - Routine Orders/Code Status Routine Lab Work: CBC, BMP Code Status: Full Code - Therapies Weight Bearing: Full weight bearing Physical Therapy: Eval and Treat Occupational Therapy: Eval and Treat - Allergies/Procedures Done in Hospital Allergies/Adverse Reactions: Allergies lisinopril Allergy (Severe, Verified 10/27/19 14:09) Angioedema nebivolol HCl [From Bystolic] Adverse Reaction (Severe, Verified 10/27/19 14:09) bradycardia BRADYCARDIA Procedures: Dialysis - Type of Care/Length of Stay Estimated LOS: Convalescent Care Less Than 30 days Type of Care Needed: Skilled Rehab Potential: Fair Prognosis: Fair - Additional Orders/Day of Discharge Additional Orders: Dialysis with Dr. Anuradha Crawley every Sunday, Sunday and Sunday Day of Discharge: 10/30/19 - Dietary and Speech Recommendations Dietitian Recommendations/Changes: Continue CHO controlled:Cardiac/low cholesterol, low potassium, low phosphorous diet. Will continue Nepro Cho Steady with at medpass d/t poor PO intake. - Follow Up Care Primary Care Physician: Davy Coleman MD [Primary Care Provider] - Within 2 Weeks Please Follow Up With: Timothy Chamberlain MD - General Surgery When: 2 weeks
--- NOTE | 2019-10-30 14:29 | DS.PCM_ITS ---
Discharge Date and Diagnosis Date of Admission: 10/27/19 Date of Discharge: 10/30/19 - Primary Discharge Diagnosis Acute Problems: 1. right breast erythema * improving. likely cellulitis. doubt non-lactating mastitis or inflammatory breast CA * on linezolid * Breast US on 10/23 showed no abscess * follow up with general surgery in 2 weeks to see if biopsy would be needed. 2. dyspnea: * stable * secondary to fluid overload from noncompliance with dialysis-patient was dialyzed today, she is currently on 4 L of oxygen 3 chronic diseases: chronic resp failure, ESRD, anemia of CD, CAD: stable. complicates overall care. 4. chronic ascites * probably secondary to nonalcoholic liver disease with cirrhosis-patient will undergo paracentesis tomorrow * recommend minimizing paracentesis unless patient is taut, or worsening abdominal pain that is suspicious for SBP 5. Debility: to the [facility] today. - Secondary Discharge Diagnosis Chronic Problems: Chronic Problems (Last Reviewed 10/23/19 @ 16:[address] Timothy Chamberlain MD) Cirrhosis of liver with ascites (Chronic) Chronic pain syndrome (Chronic) Chronic narcotic use (Chronic) CAD in [place] artery (Chronic) S/P PTCA (percutaneous transluminal coronary angioplasty) (Chronic) Anemia (Chronic) Breast pain (Chronic) Altered mental status (Chronic) Hypotension (Chronic) on Midodrin History of GI bleed (Chronic) History of non-ST elevation myocardial infarction (NSTEMI) (Chronic 07/05/16) Atherosclerotic heart disease of [place] coronary artery without angina pectoris (Chronic) Stented coronary artery (Chronic) Cutting Balloon and TAMI (3.0X18 mm Xience) Proximal LAD 04/18/2012; Ro tational atherectomy to proximal, id and distal RCA with two overlapping 4.0 X 38 Synergy TAMI ([facility] main) Ascites (Chronic) Pancytopenia (Chronic) Other specified peripheral vascular diseases (Chronic) Afib (Chronic) Congenital coronary artery anomaly (Chronic) Bradycardia (Chronic) Suspect sick sinus syndrome Diabetes mellitus, type II (Chronic) Hyperlipidemia (Chronic) Hypothyroidism (Chronic) Anemia in chronic kidney disease (Chronic) Hypertension (Chronic) End stage renal disease on dialysis (Chronic) Hospital Course and Treatment Imaging Results: Clinical Impression(s) from Imaging Studies Chest X-Ray 10/27/19 18:42 IMPRESSION: Bilateral infiltrates or edema and pleural effusions. Electronically Signed: Wojciech Hoffmann MD at 19:27 EDT , Service support , Chest CT 10/28/19 13:18 IMPRESSION: Bilateral lower lobe and lingular atelectasis. Bilateral pleural effusions, larger on the right. Electronically Signed: Joe Galan MD at 0:34 EDT Tel , Service support , Paracentesis Ultrasound 10/29/19 07:00 IMPRESSION: Ultrasound guided paracentesis. Electronically Signed: Eric Mckay, at 13:24 EDT , Service support , Breast Ultrasound 10/29/19 14:31 IMPRESSION: 2.6 cm x 2.1 cm x 1.2 cm hypoechoic irregular nodule at the 12:00 position the breast at 4 cm from nipple. This was not present on prior examination. Aspiration is recommended. ASSESSMENT CATEGORY: BIRADS Category 2: Benign. A letter regarding these results will be sent to the patient by the facility within 30 days. Electronically Signed: Eric Mckay, at 8:04 EDT , Service support , Anuradha Crawley: nephrology Eleazar: MANUEL Bulmaro: general surgery. Operations: None, - Summary of Care Provided: The patient is a 74 year old F presents with shortness of breath. Patient was noted to be hypoxic. Patient was hypoxic down to 87% on nonrebreather and then was simply put on a BiPAP and rapidly improved and was able to maintain her oxygen on her chronic 4 L of oxygen. Patient continued to have pain in her right breast and was erythematous. Patient was seen by infectious disease who discontinued antibiotics but did get subjectively worse and then was reinitiated on antibiotics with Rehana nasal lid. Breast erythema is improved today. Patient an ultrasound that showed no acute process. Infectious disease wanted to get a biopsy and consult general surgery. Given the improvement, general surgery would like to see the patient as outpatient. Patient does have resolution of her erythema then likelihood of this being inflammatory breast cancer is unlikely and therefore biopsy likely not warranted. Patient is we can be going to the [facility] in stable condition. [] - Physical Exam Vitals/I&O's: Vital Signs Temp Pulse Resp BP Pulse Ox 36.8 C 81 18 95/35 L 96 10/30/19 11:54 10/30/19 11:54 10/30/19 11:54 10/30/19 11:54 10/30/19 11:54 Oxygen Flow Rate (L/min) [2] 4 Oxygen Flow Rate (L/min) [1 ( 4 Initial Baseline)] Oxygen Flow Rate (L/min) 4 Oxygen Delivery Method [2] Nasal Cannula Oxygen Delivery Method [1 ( Nasal Cannula Initial Baseline)] Oxygen Delivery Method Room Air Weight: 83.3 kg Body Mass Index (BMI) 33.6 Finger Stick Blood Glucose 99 Intake and Output for Last 24 Hours 10/28/19 10/29/19 10/30/19 23:59 23:59 23:59 Intake Total 315 / 315 840 / 840 240 / 240 Output Total 1999 / 1999 60098 / 66033 0 / 0 Balance -1685 / -1685 -9560 / -9560 240 / 240 General: Alert, No apparent distress HEENT: Atraumatic, Normocephalic Neck: No Nodes, Thyroid Normal Size and Texture Lungs: Clear to auscultation, Normal air movement, No rhonchi, No wheeze Cardiovascular: Regular rate, Regular Rhythm, Normal S1, Normal S2 Abdomen: Bowel Sounds Present, Soft, Non Tender, Non-Distended, No Hepato- splenomegaly Extremities: No edema, No Calf Tenderness Skin: No rashes, No breakdown Psych/Mental Status: Normal Affect, Appropriate Laboratory Results 10/29/19 12:05: COVID-19 (RICKY) Not Detected 10/29/19 16:24: POC Glucose 143 H 10/29/19 23:51: POC Glucose 169 H 10/30/19 06:10: POC Glucose 142 H 10/30/19 07:45: WBC 17.6 H, RBC 3.39 L, Hgb 10.0 L, Hct 33.8 L, MCV 99.7 H, MCH 29.5, MCHC 29.6 L, RDW Std Deviation 63.7 H, RDW Coeff of Susan 17.6 H, Plt Count 207, MPV 8.9, Immature Gran % (Auto) 0.900, Neut % (Auto) 82.0 H, Lymph % (Auto) 9.8 L, [place] % (Auto) 6.0, Eos % (Auto) 1.0, Baso % (Auto) 0.3, Absolute Neuts (auto) 14.4 H, Absolute Lymphs (auto) 1.73, Nucleated RBC % 0 10/30/19 07:45: Sodium 131 L, Potassium 4.1, Chloride 101, Carbon Dioxide 25.0, Anion Gap 5, BUN 16, Creatinine 2.80 H, Estim Creat Clear Calc 15.38, Est GFR (MDRD) Af Amer 21 L, Est GFR (MDRD) Non-Af 17 L, BUN/Creatinine Ratio 5.7 L, Glucose 149 H, Calcium 8.3 L 10/30/19 07:45: Phosphorus 3.4 10/30/19 11:43: POC Glucose 155 H Current Medications Acetaminophen (Tylenol) 650 mg PO Q4H PRN PRN PRN Reason: Pain 1-10 and/or Fever > 101.5 Last Admin: 10/29/19 22:00 Dose: 650 mg Documented by: Dextrose (D50w Syringe) 0 gm IV X1 PRN; Protocol PRN Reason: Hypoglycemia Glucagon () 1 mg IM .X1 PRN PRN Reason: Hypoglycemia Insulin Human Lispro (Humalog Kwikpen (Bkc)) 0 unit SC Q6 [facility]; Protocol Last Admin: 10/30/19 11:46 Dose: 1 units Documented by: Lactulose (Chronulac, Cephulac) 30 gm PO TID [facility] Last Admin: 10/30/19 06:14 Dose: 30 gm Documented by: Linezolid (Zyvox) 600 mg PO BID [facility] Last Admin: 10/30/19 08:28 Dose: 600 mg Documented by: Melatonin (Melatonin) 5 mg PO QHS [facility] Last Admin: 10/29/19 22:01 Dose: 5 mg Documented by: Midodrine (Proamatine) 10 mg PO TID [facility] Last Admin: 10/30/19 06:13 Dose: 10 mg Documented by: Multivit/Ca Carb/B Cmplx/FA/Prenat (Nephrocaps, Renaphro) 1 capsule PO DAILY [facility] Last Admin: 10/30/19 08:28 Dose: 1 capsule Documented by: Ondansetron HCl (Zofran) 4 mg IV Q6H PRN PRN PRN Reason: nausea and vomiting Last Admin: 10/30/19 00:45 Dose: 4 mg Documented by: Oxycodone HCl (Oxyir) 10 mg PO Q6H PRN PRN PRN Reason: PAIN -02/27 Last Admin: 10/29/19 22:00 Dose: 10 mg Documented by: Sevelamer Carbonate (Renvela) 800 mg PO TIDCM [facility] Last Admin: 10/30/19 11:46 Dose: 800 mg Documented by: Sodium Chloride () 10 - 40 ml IV UD PRN PRN Reason: SALINE FLUSH Discharge Diet: Renal Diet Discharge Activity: Return to Normal Activity Home Medications: Medications to take at Discharge Acetaminophen [Tylenol] 650 mg PO Q6H PRN 08/06/19 B Complex W-C No.20/Folic Acid [Virt-Caps Softgel] 1 mg PO DAILY 08/06/19 Cholecalciferol (VIT D3) [Vitamin D3] 5,000 unit PO MOWEFR 08/06/19 Melatonin 5 mg PO QHS 08/06/19 Ropinirole HCl [Requip] 2 tab PO QHS 08/06/19 proMETHazine tablet [Phenergan tablet] 12.5 mg PO Q6H PRN PRN 09/24/19 Lactulose [Chronulac] 30 gm PO TID 10/21/19 Midodrine HCl 10 mg PO TID 10/21/19 Nystatin Powder [Mycostatin Powder] 1 applic TOPICAL BID 10/21/19 Polyethylene Glycol 3350 [Miralax] 17 gm PO BID 10/21/19 Senna/Docusate Sodium [Senokot-S] 2 tab PO BID 10/21/19 Nitroglycerin (INPATIENT USE) [Nitrostat] 0.4 mg SUBLINGUAL Q5M PRN tab.subl 10/26/19 Linezolid [Zyvox] 600 mg PO BID 12 Days #24 tab 10/30/19 Nepro with Carbsteady [Nepro Carb Steady] 120 ml PO 4X/DAY liquid 10/30/19 Oxycodone HCl/Acetaminophen [Oxycodone-Acetaminophen 10-325] 1 ea PO Q6H PRN 2 Days #8 tab 10/30/19 Sevelamer Carbonate [Renvela] 800 mg PO TID #1 tablet 10/30/19 Following Prescrptions Were Given to Patient: Oxycodone HCl/Acetaminophen [Oxycodone-Acetaminophen 10-325] 1 ea PO Q6H PRN 2 Days #8 tab PRN Reason: pain -02/27 Prescription Printed Sevelamer Carbonate [Renvela] 800 mg PO TID #1 tablet Linezolid [Zyvox] 600 mg PO BID 12 Days #24 tab Transmission Status: Received by [facility] [id number] Primary Care Physician: Davy Coleman MD [Primary Care Provider] - Within 2 Weeks Please Follow Up With: Timothy Chamberlain MD - General Surgery When: 2 weeks Disposition: Alf facility Minutes spent on discharge:: 32 Patient Condition:: Fair Medical Necessity - Tobacco Use Smoking Status: Former smoker Meaningful Use Info Meaningful Use Diagnoses (Choose all that apply): None applicable Inpatient E&M: 60366 Disch Hosp
--- NOTE | 2019-10-30 14:48 | CASEMGMT ---
Patient is ready for discharge to [facility] at [facility]. MARGO faxed orders to [place] [facility]. MARGO completed PASRR on [facility] as patient is observation status. MARGO called [facility] and requested transport. Await call from [facility] regarding fern picker time and company. MARGO called Candelaria at [facility] and let her know patient will be coming today. RN is also aware and he will be notifying patient's daughter, Jackeline. MARGO notified patient she will be leaving today and SW will arrange transport. Plan: [place] under skilled level of care on a PASRR as she is observation status. [facility] is arranging transport. Marylou RAMIREZ ASSISTANT SOFTB[employer] COACH
--- NOTE | 2019-10-30 17:17 | PCA ---
Spoke with patient care secretary Sintia at [facility] and she stated that she would let the nurse know that pickup was supposed to be here in a half hour, around 174.
[2019-10-30 17:41] LABS: Bedside Glucose 153 mg/dL (70-110)
== END 2019-10-30 14:28 | disposition skilled nursing facility (03) ==
LOC: ED 16:00 → PCU 20:41
PROVIDERS: Internal Medicine; Internal Medicine Nephrology; Admitting Provider Family Medicine; Emergency Provider Emergency Medicine; PCP Family Medicine
DX: N64.4 Mastodynia (principal); N61.0 Mastitis without abscess; R18.8 Other ascites; L53.9 Erythematous condition, unspecified; K74.60 Unspecified cirrhosis of liver; E87.2 Acidosis; E87.70 Fluid overload, unspecified; I50.9 Heart failure, unspecified; I13.2 Hypertensive heart and chronic kidney disease with heart failure and with stage 5 chronic kidney disease, or end stage renal disease; N18.6 End stage renal disease; E87.5 Hyperkalemia; J96.11 Chronic respiratory failure with hypoxia; E11.22 Type 2 diabetes mellitus with diabetic chronic kidney disease; G89.4 Chronic pain syndrome; I25.10 Atherosclerotic heart disease of native coronary artery without angina pectoris; E03.9 Hypothyroidism, unspecified; I25.2 Old myocardial infarction; E78.5 Hyperlipidemia, unspecified; I48.20 Chronic atrial fibrillation, unspecified; Q24.5 Malformation of coronary vessels; D63.1 Anemia in chronic kidney disease; F41.9 Anxiety disorder, unspecified; G93.40 Encephalopathy, unspecified; I95.89 Other hypotension; K59.00 Constipation, unspecified; Z79.899 Other long term (current) drug therapy; Z79.891 Long term (current) use of opiate analgesic; Z99.2 Dependence on renal dialysis; Z87.891 Personal history of nicotine dependence; Z91.15 Patient's noncompliance with renal dialysis
CPT/HCPCS: 36415; 36600; 49083; 71045; 71250; 76641; 80048; 80053; 80076; 82140; 82803; 82962; 83735; 84100; 84132; 84484; 85025; 85610; 85730; 87635; 90937; 93005; 94002; 94003; 96365; 96375; 97162; 97166; 97535; 99218; 99285; G2023; J7030; J7040; A4216; G0257; G0378; J1940; J2405; U0003

== ENCOUNTER → 2019-11-04 13:14 | Outpatient (CLI) | payer MEDICARE, MEDICAID, SELFPAY ==
[2018-06-11 11:00] VITALS: BMI 27.1
[2019-09-24 12:50] VITALS: BMI 34.9
[2019-10-27 20:35] VITALS: BMI 33.6
--- NOTE | 2019-11-04 13:21 | US_ITS ---
STUDY: ABDOMINAL ULTRASOUND - RIGHT UPPER QUADRANT REASON FOR VISIT: Female, 74 years old ascites TECHNIQUE: Ultrasound evaluation of the right upper quadrant was performed with real-time and static martinez-scale imaging. TECHNICAL QUALITY: Adequate. COMPARISON: None. FINDINGS: Assessment for ascites. A small amount of the free fluid is seen in the right upper quadrant. Not enough for a safe paracentesis. US/Abdomen Limited IMPRESSION: Small amount of free fluid in the right upper quadrant. Not large enough for safe paracentesis.. Electronically Signed: Eric Mckay, at 14:44 EDT , Service support ,
[2019-11-04 13:43] VITALS: BP 136/55; PULSE 63; RESP 16; O2SAT 100
== END ==
PROVIDERS: PCP Family Medicine; Referring Provider Family Medicine; Visit Provider Family Medicine
DX: R18.8 Other ascites (principal)
CPT/HCPCS: 76705